=== PATIENT | female | born 2000 | race African-American/Black ===

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

== ENCOUNTER 2024-08-21 01:31 | Emergency (ER) | payer BC, SELFPAY ==
--- NOTE | ~2024-08-21 | XR_ITS ---
EXAMINATION: XR chest 1V portable DATE: 08/21/2024 03:28 INDICATION: Shortness of breath. TECHNIQUE: A single frontal view of the chest was obtained. COMPARISON: None. FINDINGS: There are mild airspace opacities in the lower lung zones. No pleural effusion or pneumotho rax. The heart size is normal. IMPRESSION: 1. Mild airspace opacities in the lower lung zones, consistent with atelectasis versus pneumonia. Reviewed, dictated and finalized at location A. ANICAL ENGINEERING MANAGER
--- NOTE | 2024-08-21 01:37 | ECG_ITS ---
Test Date: 2024-08-21 01:42:40 Measurements Intervals [place] Rate: 119 P: 47 VA: 139 QRS: 1 QRSD: 82 T: -8 QT: 331 QTc: 466 Interpretive Statements SINUS TACHYCARDIA Poor R wave progression No previous ECG available for comparison Electronically Signed On 08-21-2024 10:16:00 CONTACT CENTER ENGINEER by Andre Vaca M.D.
[2024-08-21 01:48] VITALS: BP 144/105; PULSE 113; RESP 15; TEMP 36.3; O2SAT 100
--- NOTE | 2024-08-21 02:47 | ED.GENADULT ---
HPI - General Adult General Chief complaint: Shortness of Breath/Dyspnea Stated complaint: sob Time Seen by Provider: 08/21/24 02:23 History of Present Illness HPI narrative: 24-year-old female with history of asthma presenting to the emergency department for evaluation for worsening shortness of breath. Patient reports over the course of the last few days she has had increased cough congestion body aches CT headache. Patient has been attempting to use her albuterol inhaler without significant improvement of her symptoms. Patient denies any other sick contacts. Related Data Home Medications ?Medication ?Instructions ?Recorded ?Confirmed ?Last Taken ?Type albuterol sulfate 90 mcg/actuation 1 inhalation inhalation Q4H 08/16/19 06/02/24 Unknown History aerosol inhaler (ProAir HFA) fluticasone furoate 100 inhalation 01/12/21 06/02/24 Unknown History mcg-vilanterol 25 mcg/dose inhalation powder (Breo Ellipta) sertraline 25 mg tablet 25 mg PO DAILY 06/02/24 06/02/24 Unknown History Allergies Allergy/AdvReac Type Severity Reaction Status Date / Time Penicillins AdvReac Nausea and Verified 06/02/24 11:40 Vomiting [facility] Past Medical History Medical History Acid reflux Anxiety Asthma Depression Migraine Surgical History Surgical History H/O wrist surgery S/P cholecystectomy Social History Social History Smoking status: Never smoker Alcohol intake: never Substance use: never Lack of Transportation: No Lack of Food: Never True Current Housing: I Have Housing Concerned About Future Housing: No Difficulty Paying Gas/Electric Bills: No Difficulty Paying for Meds: No Currently Unemployed: No Education: High School Diploma/GED Difficulty w/ Childcare or Family Care: No Course Vital Signs Vital signs: Vital Signs Temperature 97.3 F L 08/21/24 01:48 Pulse Rate 113 H 08/21/24 01:48 Respiratory Rate 15 08/21/24 01:48 Blood Pressure 144/105 H 08/21/24 01:48 Pulse Oximetry 100 08/21/24 01:48 Oxygen Delivery Room Air 08/21/24 01:48 Temperature 97.3 F L 08/21/24 01:48 Pulse Rate 105 H 08/21/24 02:59 Respiratory Rate 24 H 08/21/24 02:59 Blood Pressure 144/105 H 08/21/24 01:48 Pulse Oximetry 100 08/21/24 01:48 Oxygen Delivery Room Air 08/21/24 01:48 Medical Decision Making MDM Narrative Medical decision making narrative: 24-year-old female with history of asthma presenting to the emergency department for evaluation for worsening shortness of breath and wheezing over the last few days. Patient had been using her albuterol inhaler frequently without improvement. Patient did respond well to 5 mg nebulized albuterol. Chest x-ray shows no acute cardiopulmonary abnormality. Patient was negative for influenza, RSV and COVID. Differential Diagnosis Differential Diagnosis: Pneumonia, asthma, COVID, RSV, influenza Vital Signs Vital Signs: Vital Signs Temperature 97.3 F L 08/21/24 01:48 Pulse Rate 113 H 08/21/24 01:48 Respiratory Rate 15 08/21/24 01:48 Blood Pressure 144/105 H 08/21/24 01:48 Pulse Oximetry 100 08/21/24 01:48 Oxygen Delivery Room Air 08/21/24 01:48 Temperature 97.3 F L 08/21/24 01:48 Pulse Rate 105 H 08/21/24 02:59 Respiratory Rate 24 H 08/21/24 02:59 Blood Pressure 144/105 H 08/21/24 01:48 Pulse Oximetry 100 08/21/24 01:48 Oxygen Delivery Room Air 08/21/24 01:48 Lab Data Labs: Lab Results 08/21/24 Range/Units 03:01 Influenza A (RT-PCR) Negative (Negative) Influenza B (RT-PCR) Negative (Negative) RSV (RT-PCR) Negative (Negative) SARS-CoV-2 RNA (RT-PCR) Negative (Negative) Discharge Plan Discharge Clinical Impression: Asthma exacerbation Patient Disposition: Home, Self-Care Condition: Stable Instructions: Antibiotic Form, Asthma (ED) Additional Instructions: Use your home albuterol with a spacer as instructed. Prednisone as directed for the next 5 days. Have close follow-up with her primary care physician. If you have any worsening symptoms then please call or return to the emergency department. Patient Language: Azeri Prescriptions: New prednisone 50 mg tablet 50 mg PO DAILY 5 Days Qty: 5 0RF No Action Breo Ellipta 100-25 mcg/dose blister with device INHALATION albuterol sulfate [ProAir HFA] 90 mcg/actuation HFA aerosol inhaler 1 inhalation INHALATION Q4H sertraline 25 mg tablet 25 mg PO DAILY norgestimate-ethinyl estradiol [Etu-Gt-Njsvsege] 0.18/0.215/0.25 mg-25 mcg tablet 1 tablet PO DAILY Qty: 84 4RF Follow-up/Referrals: UNKNOWN,DOCTOR [Non-Staff] -
[2024-08-21 02:59] VITALS: PULSE 105; RESP 24
[2024-08-21] MEDS: ALBUTEROL SULFATE NEB 2.5 MG/3 ML INH 5 MG INHALATION (02:59)
[2024-08-21 03:42] LABS: Influenza A QL RT-PCR Negative (Negative); Influenza B QL RT-PCR Negative (Negative); RSV RNA, RT-PCR Negative (Negative); SARS-CoV-2 RNA PCR Negative (Negative)
[2024-08-21] MEDS: predniSONE 20 MG TABLET 60 MG PO (04:40)
--- NOTE | 2024-08-21 07:42 | ECG_ITS ---
Test Date: 2024-08-21 02:24:09 Measurements Intervals [place] Rate: 104 P: 62 [place]: 137 QRS: 9 QRSD: 85 T: -5 QT: 330 QTc: 435 Interpretive Statements SINUS TACHYCARDIA POSSIBLE ANTERIOR MYOCARDIAL INFARCTION , PROBABLY OLD [30 ms Q WAVE IN V3/V4, OR R < 0.2 mV IN V4] ABNORMAL RHYTHM ECG Compared to ECG 08/21/2024 01:42:40 No significant changes Electronically Signed On 08-21-2024 10:15:31 COMMUNITY COORDINATOR by Andre Vaca M.D.
--- OUTSIDE RECORDS SUMMARY | 2024-08-28 02:11 | XMS_ITS | Encounter Summary ---
Author Organization [facility] Address [address] [place] [address] Care Team Providers Care Web Development Consultant Name Role Phone Johnna Tinajero MD Primary Care Provider + Reason for Visit * Reason Onset Date Comments Follow-up 01/25/2021 LMOR to call if any questions or concerns Encounter Details Date Type Department Care Team (Late Contact Info) Description 01/25/2021 Telephone [facility] [address] [phone] Renata Hampton, HOUSEKEEPER HEAD-HIGH VALUE ASSOCIATE [address] [phone] Follow-up (LMOR to call if any questions or concerns) Social History Tobacco Use Types Packs/Day Years Used Date Smoking Tobacco: Never Smokeless Tobacco: Never PHQ-2 Answer Date Recorded PHQ2 TOTAL SCORE 0 01/23/2021 Sex and Gender Information Value Date Recorded Sex Assigned at Not on file Gender Identity Not on file Sexual Orientation Not on file COVID-19 Exposure Response Date Recorded In the last month, have you been in contact with someone who was confirmed or suspected to have Coronavirus / COVID-19? No / Unsure 01/23/2021 2:49 PM CDT documented as of this encounter Plan of Treatment Not on file documented as of this encounter Visit Diagnoses Not on filedocumented in this encounter Care Teams Web Development Consultant Relationship Specialty Start Date End Date Johnna Tinajero MD [address] [address] PCP - General Pediatrics 09/23/17 documented as of this encounter
--- OUTSIDE RECORDS SUMMARY | 2024-08-28 02:11 | XMS_ITS | Patient Health Summary ---
Author Organization [facility] Address [address] [place] [address] Care Team Providers Care Outside Operator Name Role Phone Johnna Tinajero MD Primary Care Provider + Note from [facility],non-owned Affiliates and Associated Physician Practices is amultiple site organization consisting of ambulatory clinics and hospital sitesin [place], [place], [place] and [place]. This disclosure is being madepursuant to the Care Everywhere program and may not contain all information available regarding this patient. Last updated 18.[facility] Allergies * Penicillins(Rash) -Medium Criticality Medications * Be aware that medications may not be up to date on this document. Alwaysverify current medications with the patient. * fluticasone-vilanterol (BREO ELLIPTA) 100-25 MCG/INH inhaler Inhale 1 puff by mouth once daily Administer at the same time each day. Rinse mouth after using * albuterol HFA (PROAIR HFA) 108 (90 BASE) MCG/ACT inhaler Inhale 2 puffs by mouth every 6 hours as needed * fluticasone propionate (FLONASE) 50 MCG/ACT nasal spray(Started 10/05/2017) Howard 2 sprays into each nostril once daily * azithromycin (ZITHROMAX) 250 MG tablet(Started 08/21/2021) Take 2 tabs today, then 1 tab daily for next 4 days Active Problems No known active problems Social History Tobacco Use Types Packs/Day Years Used Date Smoking Tobacco: Never Smokeless Tobacco: Never Tobacco Cessation:Counseling Given: No PHQ-2 Answer Date Recorded PHQ2 TOTAL SCORE 0 01/23/2021 Sex and Gender Information Value Date Recorded Sex Assigned at Not on file Gender Identity Not on file Sexual Orientation Not on file Last Filed Vital Signs Vital Sign Reading Time Taken Comments Blood Pressure 120/82 08/21/2021 2:11 PM STITCHING MACHINE FEEDER OR OFFBEARER Pulse 80 08/21/2021 2:11 PM STITCHING MACHINE FEEDER OR OFFBEARER Temperature 36.6 ??C (97.9 ??F) 08/21/2021 2:11 PM CS T Respiratory Rate 18 08/21/2021 2:11 PM STITCHING MACHINE FEEDER OR OFFBEARER Oxygen Saturation 99% 08/21/2021 2:11 PM STITCHING MACHINE FEEDER OR OFFBEARER Inhaled Oxygen Concentration - - Weight 90.7 kg (200 lb) 08/21/2021 2:11 PM STITCHING MACHINE FEEDER OR OFFBEARER Height 160 cm (5' 3 ) 08/21/2021 2:11 PM STITCHING MACHINE FEEDER OR OFFBEARER Body Mass Index 35.43 08/21/2021 2:11 PM STITCHING MACHINE FEEDER OR OFFBEARER Procedures * STREP A SCREEN - POINT OF CARE (AMB) STL(Performed 10/05/2017) Performed for Dysfunction of both eustachian tubes Results * STREP A SCREEN - POINT OF CARE (AMB) STL (10/05/2017) Strep A Rapid POCT Negative Negative Strep A Internal Control Present Lot # [id number] Expiration Date 05 07 2019 Throat ENTIRE THROAT (SURFACE REGION OF NECK) / Unknown 10/05/2017 Carrie Johns MONITOR TECHNICIAN-LEAD DATA ENTRY OPERATOR LAB - POINT OF CA RE ORDERABLES Care Teams Outside Operator Relationship Specialty Start Date End Date Johnna Tinajero MD [facility] [address] PCP - General Pediatrics 09/23/17
--- OUTSIDE RECORDS SUMMARY | 2024-08-28 02:11 | XMS_ITS | Encounter Summary ---
Author Organization [facility] Address [address] [place] [address] Care Team Providers Care Government Affairs Director Name Role Phone Johnna Tinajero MD Primary Care Provider + Reason for Visit * Reason Comments Ear Pain Encounter Details Date Type Department Care Team (Late st Contact Info) Description 01/23/2021 3:00 PM CDT Office Visit [facility] AT [address] [phone] Provider, [facility] Non-recurrent acute suppurative otitis media of both ears without spontaneous rupture of tympanic membranes (Primary Dx); Other infective acute otitis externa of both ears Social History Tobacco Use Types Packs/Day Years [...] PM CDT documented as of this encounter Last Filed Vital Signs Vital Sign Reading Time Taken Comments Blood Pressure 122/70 01/23/2021 3:11 PM CDT Pulse 77 01/23/2021 3:11 PM CDT Temperature 36.7 ??C (98 ??F) 01/23/2021 3:11 PM CDT Respiratory Rate 20 01/23/2021 3:11 PM CDT Oxygen Saturation - - Inhaled Oxygen Concentration - - Weight 90.7 kg (200 lb) 01/23/2021 3:11 PM CDT Height - - Body Mass Index - - documented in this encounter Patient Instructions * Patient Instructions* Jose Mckinney APRN-ANALI - 01/23/2021 3:10 PM CDT Images from the original note were not included. Otitis Externa ??? Acetaminophen (Tylenol) or Ibuprofen (Advil, Motrin) for ear pain. You may alternate acetaminophen and ibuprofen every 3-4 hours to manage ear pain. Do not exceed recommended daily maximum dose of either product. ??? Position affected ear upwards for 5 minutes after application of ear drops. ??? Apply heat to the area around the ear to relieve pain using a warm washcloth, towel from the dryer, heating pad, hot water bottle. Do not leave heating pad turned on while sleeping. ??? Keep the infected ear dry. USE ear plugs or shower cap for showering. ??? Avoid swimming until infection has resolved. ??? Do not go under water in hot tubs. ??? To prevent future episodes, use over the counter ear products containing a diluted solution of acetic acid or rubbing alcohol after swimming to keep ear canal dry. Apply as directed and gently message to allow penetration. Otitis Externa Follow Up Follow up with the clinic or your primary care provider if symptoms worsen or do not improve withinthe next 48 hours Patient Education Ear Infection in Children WHAT YOU NEED TO KNOW: What do I need to know about an ear infection? An ear infection is also called otitis media. Children are most likely to get ear infections when they are between 6 months and 3 years old. Ear infections are most common during the winter and early spring months, but can happen any time during the year. Your child may have an ear infection more than once. What causes an ear infection in children? Your child may get an ear infection when the eustachian tubes become swollen or blocked. Eustachian tubes drain fluid away from the middle ear. Your child may have a buildup of fluid and pressure in the ear when he or she has an ear infection. The ear may become infected by germs. The germs grow easily in fluid trapped behind the eardrum. What increases my child's risk for an ear infection? ?? Daycare or school ?? Being around people who smoke ?? A brother, sister, or parent with a history of ear infections ?? An ear infection before 6 months of age ?? Health conditions such as cleft palate or Down syndrome ?? Use of pacifiers after 10 months of age ?? Flat position when he or she drinks a bottle What are the signs and symptoms of an ear infection in children? ?? Fever ?? Ear pain or tugging, pulling, or rubbing of the ear ?? Decreased appetite from painful sucking, swallowing, or chewing ?? Fussiness, restlessness, or difficulty sleeping ?? Yellow fluid or pus coming from the ear ?? Difficulty hearing ?? Dizziness or loss of balance How is an ear infection in children diagnosed? Your child's healthcare provider will look inside your child's ears. He or she may blow a puff of air inside your child's ears. This may show if your child's eardrums are healthy. If your child's eardrum is infected, it will not move as it should. A tympanogram is another test that may be done. During the test, an ear plug is put into each of your child's ears. Air pressure is used to see how the eardrum moves. It can help your child's healthcare provider learn if your child has fluid in his or her middle ear. How is an ear infection in children treated? ?? Medicines may be given to decrease your child's pain or fever, or to treat an infection caused by bacteria. ?? Ear tubes are often used to keep fluid from collecting in your child's ears. Your child may needthese to help prevent frequent ear infections or hearing loss. Ask your child's healthcare providerfor more information on ear tubes. What can I do to help prevent an ear infection? ?? Wash your and your child's hands often to help prevent the spread of germs. Ask everyone in yourhouse to wash their hands with soap and water. Ask them to wash after they use the bathroom or change a diaper. Remind them to wash before they prepare or eat food. ?? Keep your child away from people who are ill, such as sick playmates. Germs spread easily and quickly in daycare centers. ?? If possible, breastfeed your baby. Your baby may be less likely to get an ear infection if he orshe is breastfed. ?? Do not give your child a bottle while he or she is lying down. This may cause liquid from the sinuses to leak into his or her eustachian tube. ?? Keep your child away from people who smoke. ?? Vaccinate your child. Ask your child's healthcare provider about the shots your child needs. Vaccines may help prevent infections that can cause an ear infection. When should I seek immediate care? ?? You see blood or pus draining from your child's ear. ?? Your child seems confused or cannot stay awake. ?? Your child has a stiff neck, headache, and a fever. When should I contact my child's healthcare provider? ?? Your child has a fever. ?? Your child is still not eating or drinking 24 hours after he or she takes medicine. ?? Your child has pain behind his or her ear or when you move the earlobe. ?? Your child's ear is sticking out from his or her head. ?? Your child still has signs and symptoms of an ear infection 48 hours after he or she takes medicine. ?? You have questions or concerns about your child's condition or care. CARE AGREEMENT: You have the right to help plan your child's care. Learn about your child's health condition and how it may be treated. Discuss treatment options with your child's healthcare providers to decide whatcare you want for your child. The above information is an paid internship only. It is not intended as medical advice for individual conditions or treatments. Talk to your doctor, nurse or pharmacist before following any medical regimen to see if it is safe and effective for you. ?? Copyright [employer] 2020 Information is for End User's use only and may not be sold, redistributed or otherwise used for commercial purposes. All illustrations and images included in CareNotes?? are the copyrighted property of [employer] or [employer] documented in this encounter Progress Notes * Jose Mckinney APRN-CNP - 01/23/2021 3:11 PM CDT Images from the original note were not included. Subjective: Nina Coyne is a 20 year old female who presents for evaluation: Chief Complaint Patient presents with ??? Ear Pain Primary Care Physician is Johnna Tinajero MD. Pt states she was seen at an ten days ago. She states she was given ear drops for an ear infection, but she can't remember much more about what they told her. She states that both of her ears still really hurt and seem to be getting worse. She states she used the Cortisporin ear drops as prescribed. Symptoms include ear pain bilateral and plugged sensation bilateral. Onset of symptoms was 10 days ago, rapidly worsening since that time. bilateral ear pressure/pain. Allergies Allergen Reactions ??? Pcn [Penicillins] Rash As a child Outpatient Medications Marked as Taking for the 01/23/21 encounter (Office Visit) with Provider, Karen Mckinney Medication Sig ??? azithromycin (ZITHROMAX) 250 MG tablet Take 2 tabs today, then 1 tab daily for next 4 days ??? ciprofloxacin-dexamethasone (CIPRODEX) 0.3-0.1 % otic suspension Instill 4 (four) drops into both ears 2 times daily for 7 days Shake well before using. Past Medical History: Diagnosis Date ??? Asthma There is no problem list on file for this patient. Past Surgical History: Procedure Laterality Date ??? HAND SURGERY Right 2016 Social History Socioeconomic History ??? Marital status: Single Spouse name: Not on file ??? Number of children: Not on file ??? Years of education: Not on file ??? Highest education level: Not on file Occupational History ??? Not on file Tobacco Use ??? Smoking status: Never Smoker ??? Smokeless tobacco: Never Used Substance and Sexual Activity ??? Alcohol use: Not on file ??? Drug use: Not on file ??? Sexual activity: Not on file Other Topics Concern ??? Not on file Social History Narrative ??? Not on file Social Determinants of Health Financial Resource Strain: ??? Difficulty of Paying Living Expenses: Food Insecurity: ??? Worried About Running Out of Food in the Last Year: ??? Ran Out of Food in the Last Year: Transportation Needs: ??? Lack of Transportation (Medical): ??? Lack of Transportation (Non-Medical): Physical Activity: ??? Days of Exercise per Week: ??? Minutes of Exercise per Session: Stress: ??? Feeling of Stress : Social Connections: ??? Frequency of Communication with Friends and Family: ??? Frequency of Social Gatherings with Friends and Family: ??? Attends [employer] Services: ??? Active Member of Clubs or Organizations: ??? Attends Club or Organization Meetings: ??? Marital Status: Intimate Partner Violence: ??? Fear of Current or Ex-Partner: ??? Emotionally Abused: ??? Physically Abused: ??? Sexually Abused: Medications reviewed. Review of Systems Constitutional: Negative Ears, nose, mouth, and throat: Positive for earaches bilaterally, Negative for vertigo, sinus trouble, persistent sore throat Respiratory: Negative Cardiovascular: Negative Neurological: Negative Objective: BP 122/70 (BP SITE: RIGHT ARM, BP POSITION: SITTING, BP CUFF SIZE: 11) Pulse 77 Temp 98 ??F (36.7 ??C) (Oral) Resp 20 Wt 90.7 kg (200 lb) Skin: Physical Exam Exam General appearance: alert, cooperative, no distress Ears: pain with motion of pinna and tragus bilaterally nor Right tympanic membrane - erythematous and bulging nor Left tympanic membrane - erythematous and bulging nor erythema and edema of ear canalbilaterally Nose: nares open; no septal deviation is noted Throat: no mucous membrane abnormalities Lungs: breath sounds normal and symmetric; no rales or wheezes Heart: regular rhythm, normal S1 and S2, without murmurs, gallops or rubs Neurologic: mental status normal; alert and oriented X 3; cranial nerves II - XII are grossly intact No results found for this or any previous visit (from the past 24 hour(s)). Assessment: . Encounter Diagnoses Name Primary? Non-recurrent acute suppurative otitis media of both ears without spontaneous rupture of tympanic membranes Yes ??? Other infective acute otitis externa of both ears Plan: Otitis Externa ??? Acetaminophen (Tylenol) or Ibuprofen (Advil, Motrin) for ear pain. You may alternate acetaminophen and ibuprofen every 3-4 hours to manage ear pain. Do not exceed recommended daily maximum dose of either product. ??? Position affected ear upwards for 5 minutes after application of ear drops. ??? Apply heat to the area around the ear to relieve pain using a warm washcloth, towel from the dryer, heating pad, hot water bottle. Do not leave heating pad turned on while sleeping. ??? Keep the infected ear dry. USE ear plugs or shower cap for showering. ??? Avoid swimming until infection has resolved. ??? Do not go under water in hot tubs. ??? To prevent future episodes, use over the counter ear products containing a diluted solution of acetic acid or rubbing alcohol after swimming to keep ear canal dry. Apply as directed and gently message to allow penetration. Otitis Externa Follow Up Follow up with the clinic or your primary care provider if symptoms worsen or do not improve withinthe next 48 hours Ear Infection in Children WHAT YOU NEED TO KNOW: What do I need to know about an ear infection? An ear infection is also called otitis media. Children are most likely to get ear infections when they are between 6 months and 3 years old. Ear infections are most common during the winter and early spring months, but can happen any time during the year. Your child may have an ear infection more than once. What causes an ear infection in children? Your child may get an ear infection when the eustachian tubes become swollen or blocked. Eustachian tubes drain fluid away from the middle ear. Your child may have a buildup of fluid and pressure in the ear when he or she has an ear infection. The ear may become infected by germs. The germs grow easily in fluid trapped behind the eardrum. What increases my child's risk for an ear infection? ?? Daycare or school ?? Being around people who smoke ?? A brother, sister, or parent with a history of ear infections ?? An ear infection before 6 months of age ?? Health conditions such as cleft palate or Down syndrome ?? Use of pacifiers after 10 months of age ?? Flat position when he or she drinks a bottle What are the signs and symptoms of an ear infection in children? ?? Fever ?? Ear pain or tugging, pulling, or rubbing of the ear ?? Decreased appetite from painful sucking, swallowing, or chewing ?? Fussiness, restlessness, or difficulty sleeping ?? Yellow fluid or pus coming from the ear ?? Difficulty hearing ?? Dizziness or loss of balance How is an ear infection in children diagnosed? Your child's healthcare provider will look inside your child's ears. He or she may blow a puff of air inside your child's ears. This may show if your child's eardrums are healthy. If your child's eardrum is infected, it will not move as it should. A tympanogram is another test that may be done. During the test, an ear plug is put into each of your child's ears. Air pressure is used to see how the eardrum moves. It can help your child's healthcare provider learn if your child has fluid in his or her middle ear. How is an ear infection in children treated? ?? Medicines may be given to decrease your child's pain or fever, or to treat an infection caused by bacteria. ?? Ear tubes are often used to keep fluid from collecting in your child's ears. Your child may needthese to help prevent frequent ear infections or hearing loss. Ask your child's healthcare providerfor more information on ear tubes. What can I do to help prevent an ear infection? ?? Wash your and your child's hands often to help prevent the spread of germs. Ask everyone in yourhouse to wash their hands with soap and water. Ask them to wash after they use the bathroom or change a diaper. Remind them to wash before they prepare or eat food. ?? Keep your child away from people who are ill, such as sick playmates. Germs spread easily and quickly in daycare centers. ?? If possible, breastfeed your baby. Your baby may be less likely to get an ear infection if he orshe is breastfed. ?? Do not give your child a bottle while he or she is lying down. This may cause liquid from the sinuses to leak into his or her eustachian tube. ?? Keep your child away from people who smoke. ?? Vaccinate your child. Ask your child's healthcare provider about the shots your child needs. Vaccines may help prevent infections that can cause an ear infection. When should I seek immediate care? ?? You see blood or pus draining from your child's ear. ?? Your child seems confused or cannot stay awake. ?? Your child has a stiff neck, headache, and a fever. When should I contact my child's healthcare provider? ?? Your child has a fever. ?? Your child is still not eating or drinking 24 hours after he or she takes medicine. ?? Your child has pain behind his or her ear or when you move the earlobe. ?? Your child's ear is sticking out from his or her head. ?? Your child still has signs and symptoms of an ear infection 48 hours after he or she takes medicine. ?? You have questions or concerns about your child's condition or care. Orders Placed This Encounter ??? ciprofloxacin-dexamethasone (CIPRODEX) 0.3-0.1 % otic suspension Sig: Instill 4 (four) drops into both ears 2 times daily for 7 days Shake well before using. Dispense: 7.5 mL Refill: 0 ??? azithromycin (ZITHROMAX) 250 MG tablet Sig: Take 2 tabs today, then 1 tab daily for next 4 days Dispense: 6 tablet Refill: 0 Continue to follow up with Johnna Tinajero MD as directed. After Visit Summary reviewed with patient. The patient indicates understanding of these issues and agrees with the plan. Patient discharged to Home .HOMER Youssef 01/23/2021 3:11 PM documented in this encounter Plan of Treatment Not on file documented as of this encounter Visit Diagnoses Diagnosis Non-recurrent acute suppurative otitis media of both ears without spontaneous rupture of tympanic membranes- Primary Other infective acute otitis externa of both ears documented in this encounter Care Teams Government Affairs Director Relationship Specialty Start Date End Date Johnna Tinajero MD [id number] [address] PCP - General Pediatrics 09/23/17 documented as of this encounter
--- OUTSIDE RECORDS SUMMARY | 2024-08-28 02:11 | XMS_ITS | Data Portability ---
Author Organization [facility], Main Office Address [address] [place] [address] Assessment No assessment recorded. Plan of Treatment Reminders Order Date Submit Date Provider Last Modified By Organization Details Last Modified Time Details Appointments None recorded. Lab insulin, serum 2022 023 [email or web address] [facility], [address] [place] [address], [address], 3 12:54:49 lipid panel, blood 2022 023 SHARRI [facility], [address] [place] [address], [address], 3 12:45:00 CMP, serum or plasma 2022 023 [email or web address] [facility], [address] [place] [address], [address], 3 12:53:18 CBC w/ auto diff 2022 023 [email or web address] [facility], [address] [place] [address], [place], [address], 3 12:53:44 TSH + free T4, serum 2022 023 [email or web address] [facility], [address] [place] [address], [place], [address], 3 12:53:56 urinalysis complete, reflex culture 2022 023 [email or web address] [facility], [address] [place] [address] 2, [place], [address], 3 12:54:09 HbA1c (hemoglobin A1c), blood 2022 023 [email or web address] [facility], [address] [facility] [address], [place], [address], 3 12:54:36 Referral None recorded. Procedures None recorded. Surgeries None recorded. Imaging None recorded. Medication Orders None recorded. Patient TargetsNo targets recorded. Patient InstructionsNo instructions recorded. Reason for Referral None Reported. Results Created Date Observation Date Name Description Value Unit Range Abnormal Flag Note LastModifiedBy Organization Detail LastModifiedTime Result Notes None recorded. Problems Name Problem SNOMED Code Status Onset Date Resolution Date Notes Provider Name and Address Organization Details Recorded Time Mixed anxiety and depressive disorder 611204271 Active 2022 Not Available [facility] 3 01:48:11 Generalized anxiety disorder 17709914 Active 2022 ANAIS Taylor [address], [place], [address] , [facility] 3 14:29:42 Asthma 452700577 Active 2022 ANAIS Taylor [address] [place] [address], [place], [address] , [facility] 3 14:29:47 Lower urinary tract symptoms 012951223 Active 2022 ANAIS Taylor [address], [place], [address] , [facility] 3 11:50:18 Upper respiratory infection 95248589 Active 2022 ANAIS Taylor [address], [place], [address] , [facility] 3 09:27:37 Problem Notes None recorded. Procedures Surgical History Date Name Laterality Status Provider Name and Address Organization Details Recorded Time Cholecystectomy completed [facility] 11/03/2022 13:59:44 [place] [facility] completed Yuliana Ashley HUSEYINVictor Manuel [facility] 11/03/2022 13:59:58 Endoscopy completed DOMINGO Argueta [facility] 11/03/2022 14:00:03 Orthopedic Surgery completed DOMINGO Ernst [facility] 11/03/2022 14:00:13 Imaging Results None recorded. Procedure Notes None recorded. Medical Equipment None Reported. Allergies Allergen ID Allergen Name Allergen Category Reaction Reaction Severity Criticality Documentation Date Start Date Code Code System Note Provider Name and Address Organization Details Recorded Time 48762 Medicinal product containin g penicilli n and acting as antibacte rial agent (product) medicatio n Not available Not available Not available 11/03/2022 16400 05 SNOMED DOMINGO Argueta [facility] 13:58:03 Medications Name Sig Start Date Stop Date Status Note LastModified by Organization Details LastModified Time prednisone 10 mg tablet TAKE 6 TABLETS BY MOUTH ONCE DAILY FOR 2 DAYS AND 4 ONCE DAILY FOR 3 DAYS 10/14 completed Not Available Not Available Not Available doxycycline hyclate 100 mg capsule TAKE 1 CAPSULE BY MOUTH IN THE MORNING AND TAKE 1 CAPSULE BY MOUTH AT BEDTIME FOR 10 DAYS. TAKE WITH A FULL GLASS OF WATER AND DO NOT LIE DOWN FOR AT LEAST 30 MINUTES AFTER 10/14 completed Not Available Not Available Not Available azithromyci n 250 mg tablet TAKE 2 TABLETS (500 MG) BY ORAL ROUTE ONCE DAILY FOR 1 DAY THEN 1 TABLET (250 MG) BY ORAL ROUTE ONCE DAILY FOR 4 DAYS active Not Available Not Available No t Available doxepin 25 mg capsule TAKE 1 TO 2 CAPSULES BY MOUTH EVERY DAY AT BEDTIME active Not Available Not Available No t Available hydrocodone 5 mg-acetamin ophen 325 mg tablet TAKE 1 TABLET BY MOUTH EVERY 6 HOURS NEEDED FOR PAIN FOR UP TO 3 DAYS active Not Available Not Available No t Available sucralfate 100 mg/mL oral suspension TAKE 10 ML BY MOUTH 4 TIMES DAILY FOR 7 DAYS 10/14 completed Not Available Not Available Not Available prochlorper azine maleate 5 mg tablet TAKE 1 TABLET BY MOUTH EVERY 6 HOURS NEEDED FOR NAUSEA FOR VOMITING active Not Available Not Available No t Available sertraline 100 mg tablet TAKE 1 TABLET BY MOUTH ONCE DAILY IN THE MORNING . APPOINTME NT REQUIRED FOR FUTURE REFILLS active Not Available Not Available No t Available ciprofloxac in 500 mg tablet TAKE 1 TABLET BY MOUTH EVERY 12 HOURS 01/06 completed Not Available Not Available Not Available metoclopram gabino 5 mg tablet TAKE 1 TABLET BY MOUTH 4 TIMES DAILY 30 MINUTES BEFORE MEALS AND AT BEDTIME active Not Available Not Available No t Available dicyclomine 20 mg tablet TAKE 1 TABLET BY MOUTH TWICE DAILY active Not Available Not Available No t Available amitriptyli ne 10 mg tablet TAKE 1 TO 2 TABLETS BY MOUTH AT BEDTIME active Not Available Not Available No t Available pantoprazol e 40 mg tablet,jocelyn yed release TAKE 1 TABLET BY MOUTH ONCE DAILY 10/14 completed Not Available Not Available Not Available omeprazole 20 mg capsule,del ayed release TAKE 1 CAPSULE BY MOUTH IN THE MORNING BEFORE BREAKFAST FOR 10 DAYS DO NOT CRUSH OR CHEW 11/03 completed Not Available Not Available Not Available albuterol sulfate HFA 90 mcg/actuati on aerosol inhaler INHALE 2 PUFFS BY MOUTH EVERY 4 TO 6 HOURS NEEDED active Not Available Not Available No t Available ondansetron 4 mg disintegrat ing tablet DISSOLVE 1 TABLET IN MOUTH 10 MINUTES PRIOR TO EACH PREP DOSE NEEDED FOR NAUSEA active Not Available Not Available No t Available sertraline 50 mg tablet TAKE 1 TABLET BY MOUTH ONCE DAILY IN THE MORNING FOR 14 DAYS active Not Available Not Available No t Available escitalopra m 20 mg tablet TAKE 1 TABLET BY MOUTH ONCE DAILY IN THE MORNING 04/03 completed Not Available Not Available Not Available Breo Ellipta 100 mcg-25 mcg/dose powder for inhalation INHALE 1 PUFF BY MOUTH EVERY 24 HOURS active Not Available Not Available No t Available Tri-Lo-Esta rylla 0.18 mg/0.215 mg/0.25 mg-25 mcg tablet TAKE 1 TABLET BY MOUTH ONCE DAILY active Not Available Not Available No t Available Plenvu 140 gram-9 gram-5.2 gram powder packs USE DIRECTED THE NIGHT BEFORE AND MORNING OF PROCEDURE active Not Available Not Available No t Available Vitals Date Recorded Body height Body temperature Respiratory rate Oxygen saturation Oxygen saturation in Arterial blood by Pulse oximetry Heart rate Systolic blood pressure Diastolic blood pressure Provider Name and Address Organization Details Last Updated DateTime 3 160.02 cm 97.8 [degF] 16 /min 98 % 98 % 101 /min 122 mm[Hg] 80 mm[Hg] DOMINGO Argueta [facility] [employer] [facility] 14:04:38 Social History Question Answer Notes LastModified by Organizat ion Details LastModified Time Tobacco Smoking Status Never Smoker DOMINGO Argueta null, NEVAEH Fernández Tracey [employer] [facility] 11/03/2022 13:59:13 Do You Have An Advance Directive? No [email or web address] Information n ot available 11/03/2022 What Is Your Level Of Alcohol Consumption? None [email or web address] Information not available 11/03/2022 What Is Your Level Of Caffeine Consumption? Moderate [email or web address] Information not available 11/03/2022 In The 14 Days Before Symptom Onset, Have You Had Close Contact With A Laboratory-confirm ed COVID-19 While That Case Was Ill? No [id number] Information not available 10/30/2022 In The 14 Days Before Symptom Onset, Have You Had Close Contact With A Person Who Is Under Investigation For COVID-19 While That Person Was Ill? No [id number] Information not available 10/30/2022 Are You Currently Employed? Yes [email or web address] Information not available 11/03/2022 What Type Of Diet Are You Following? 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 No [email or web address] Information no t available 11/03/2022 Are There Any Guns Present In Your Home? No [email or web address] Information not available 11/03/2022 Do You Use Insect Repellent Routinely? No [email or web address] Information not available 11/03/2022 Do You Have A Medical Power Of Certified Surgical Technician? No [email or web address] Information not available 11/03/2022 What Is Your Relationship Status? Single [email or web address] Information not available 11/03/2022 Do You Use Your Seat Belt Or Car Seat Routinely? Yes [email or web address] Information not available 11/03/2022 Do You Have Smoke And Carbon Monoxide Detectors In Your Home? Yes Information not available 11/03/2022 Do You Use Any Illicit Or Recreational Drugs? No [email or web address] Information not available 11/03/2022 Do You Use Sunscreen Routinely? Yes [email or web address] Information not available 11/03/2022 Have You Recently Traveled Abroad? No [id number] Information not available 10/30/2022 Do You Have Any Dietary Restrictions? No [email or web address] Information not available 11/03/2022 Do You Or Have You Ever Used Any Other Forms Of Tobacco Or Nicotine? No [email or web address] Information not available 11/03/2022 Sex: Unknown Functional Status Question Answer Note LastModified by Organization D etails LastModified Time What is your exercise level? Heavy [email or web address] Information not available 11/03/2022 Mental Status None recorded. Family History Nothing Reported Notes:pt adopted Medical History Condition Response ANXIETY DISORDER Y DEPRESSION (INCLUDING POST ) Y DIZZINESS Y ASTHMA Y Gynecological HistoryNo gynecological history recorded. Obstetrics History GPAL:G 0 P 0 0 0 0 Past Encounters Encounter ID Performer Location Encounter Start Date Encounter Closed Date Diagnosis/Indication Diagnosis SNOMED-CT Code Diagnosis ICD10 Code [id number] ANAIS Taylor [facility] [place] [address] [place] [address] 11/03/2022 13:57:21 11/03/2022 14:46:56 Adult health examination 590451742 Z00.00 Generalize d anxiety disorder 29550908 F41.1 Asthma 672505345 J45.90 9 Long-term drug therapy 277805761 Z79.899 Diabetes m ellitus screening 732688775 Z13.1 Cholesterol screening 27 7643131 Z13.220 Endocrine/ metabolic screening 563067638 Z13.228 Health Concerns Section Related Observation LastModified by Organization Detai ls LastModified Time None Recorded Concern Status LastModified by Organization Details LastModified Time None Recorded Advance Directives Directive N: Payers Encounter Date Sequence Insurance Name Policy Number Policy Allen Covered Member ID Allen Member ID Guarantor Name 11/03/2022 1 [employer] - OPEN ACCESS PLUS [id number] Franklin Coyne [id number] Nina Coyne Notes Date Note Type Note Provider Name and Address Organization Details Recorded Time 11/03/2022 text/html Anxiety/Depressi o nReported bypatient.Quality :doesnt matter time of day. Severity:denies suicidal ideations; able to maintain relationships; does not interfere with activities of daily living Duration:symptoms lasting over 2 weeks Onset/Timing:stil l present Context:no major life stressors Modifying Factors:rx ANAIS Taylor [address] [facility] [facility] [address], [place], [address], [place] [facility] 11/22/2022 00:13:13 OBGyn Episode No OBEpisode recorded.
--- OUTSIDE RECORDS SUMMARY | 2024-08-28 02:11 | XMS_ITS | Referral Summary ---
Author Organization [facility] Address [address] [address] Care Team Providers Care Research Administrator Name Role Phone Johnna Tinajero MD Primary Care Provider + Source Comments [facility],non-owned Affiliates and Associated Physician Practices is amultiple site organization consisting of ambulatory clinics and hospital sitesin [place], [place], [place]. This disclosure is being madepursuant to the Care Everywhere program and may not contain all information available regarding this patient. Last updated 18.[facility] Allergies Active Allergy Reactions Criticality Noted Date Comments Penicillins Rash Medium 09/23/2017 As a child Medications * Be aware that medications may not be up to date on this document. Alwaysverify current medications with the patient. Medication Sig Dispensed Refills Start Date End Date Status fluticasone-vilanter ol (BREO ELLIPTA) 100-25 MCG/INH inhaler Inhale 1 puff by mouth once daily Administer at the same time each day. Rinse mouth after using Active albuterol HFA (PROAIR HFA) 108 (90 BASE) MCG/ACT inhaler Inhale 2 puffs by mouth every 6 hours as needed Active fluticasone propionate (FLONASE) 50 MCG/ACT nasal spray [place] 2 sprays into each nostril once daily 1 bottles 10/05/2017 Active azithromycin (ZITHROMAX) 250 MG tabletIndications:Ac apurva sinusitis, recurrence not specified, unspecified location Take 2 tabs today, then 1 tab daily for next 4 days 6 tablet 08/21/2021 Active Active Problems No known active problems Social [...] Comments Blood Pressure 120/82 08/21/2021 2:11 PM [employer] Pulse 80 08/21/2021 2:11 PM [employer] Temperature 36.6 ??C (97.9 ??F) 08/21/2021 2:11 PM CS T Respiratory Rate 18 08/21/2021 2:11 PM [employer] Oxygen Saturation 99% 08/21/2021 2:11 PM [employer] Inhaled Oxygen Concentration - - Weight 90.7 kg (200 lb) 08/21/2021 2:11 PM [employer] Height 160 cm (5' 3 ) 08/21/2021 2:11 PM [employer] Body Mass Index 35.43 08/21/2021 2:11 PM [employer] Plan of Treatment Not on file Care Teams Research Administrator Relationship Specialty Start Date End Date Johnna Tinajero MD [address] [address] PCP - General Pediatrics 09/23/17
--- OUTSIDE RECORDS SUMMARY | 2024-08-28 02:11 | XMS_ITS | Encounter Summary ---
Author Organization [facility] Address [address] [place] [address] Care Team Providers Care Fisher Terrapin Name Role Phone Johnna Tinajero MD Primary Care Provider + Reason for Visit * Reason Comments Ear Pain Encounter Details Date Type Department Care Team (Late st Contact Info) Description 10/05/2017 5:20 PM PACKAGE HANDLER Office Visit [facility] [address] [phone] Provider, [facility] [place] Dysfunction of both eustachian tubes (Primary Dx) Social History Tobacco Use Types Packs/Day Years Used Date Smoking Tobacco: Never Smokeless Tobacco: Never Sex and Gender Information Value Date Recorded Sex Assigned at Not on file Gender Identity Not on file Sexual Orientation Not on file documented as of this encounter Last Filed Vital Signs Vital Sign Reading Time Taken Comments Blood Pressure 122/84 10/05/2017 5:39 PM PACKAGE HANDLER Pulse 109 10/05/2017 5:25 PM PACKAGE HANDLER Temperature 37.3 ??C (99.1 ??F) 10/05/2017 5:25 PM CS T Respiratory Rate 16 10/05/2017 5:25 PM PACKAGE HANDLER Oxygen Saturation 99% 10/05/2017 5:25 PM PACKAGE HANDLER Inhaled Oxygen Concentration - - Weight 107 kg (236 lb) 10/05/2017 5:25 PM PACKAGE HANDLER Height 160 cm (5' 3 ) 10/05/2017 5:25 PM PACKAGE HANDLER Body Mass Index 41.81 10/05/2017 5:25 PM PACKAGE HANDLER Body Mass Index Percentile 99.81% 10/05/2017 5:2 5 PM PACKAGE HANDLER Growth Chart: CDC (Girls, 2- 20 Years) documented in this encounter Patient Instructions * Patient Instructions* JohnsCarrie teran MATERIAL HANDLING CREW SUPERVISOR-BLOCK SPLITTER OPERATOR - 10/05/2017 5:46 PM PACKAGE HANDLER Eustachian Tube Dysfunction WHAT YOU NEED TO KNOW: What is eustachian tube dysfunction? Eustachian tube dysfunction (ETD) is a condition that preventsyour eustachian tubes from opening properly. It can also cause them to become blocked. Eustachian tubes connect your middle ear to the back of your nose and throat. These tubes open and allow air to flow in and out when you sneeze, swallow, or yawn. What causes or increases my risk of ETD? ETD may be caused by swelling or buildup of mucus in your eustachian tubes. Allergies, a cold, or sinus infection can increase your risk for ETD. Smoking alsoincreases your risk for ETD. What are the signs and symptoms of ETD? ?? Fullness or pressure in your ears ?? Muffled hearing ?? Pain in one or both ears ?? Ringing in your ears ?? Popping or clicking feeling in your ears ?? Trouble keeping your balance How is ETD diagnosed? Your healthcare provider will ask about your symptoms. He will examine your ears, your nose, and the back of your throat. He may also do a hearing test. How is ETD treated? Your ETD may get better on its own without any treatment. You may need any of the following: ?? Exercises such as swallowing, yawning, or chewing gum may help to open your eustachian tubes. Your healthcare provider may also recommend that you take a deep breath and then blow with your mouth shut and your nostrils pinched closed. ?? Air pressure devices push air into your nose and eustachian tubes to help relieve air pressure in your ear. ?? Treatment for allergies such as decongestants, antihistamines, and nasal steroids may improve ETD. They may help decrease swelling of the eustachian tubes. ?? Ear tubes may help to keep your middle ear open. During this procedure, your healthcare providerwill cut a small hole in your eardrum. ?? A myringotomy is procedure to make a small cut in your eardrum and suction out fluid from your middle ear. ?? Tuboplasty is a procedure to widen your eustachian tubes. When should I contact my healthcare provider? ?? Your symptoms do not improve or get worse. ?? You have a fever. ?? You have any hearing loss. ?? You have questions or concerns about your condition or care. CARE AGREEMENT: You have the right to help plan your care. Learn about your health condition and how it may be treated. Discuss treatment options with your caregivers to decide what care you want to receive. You always have the right to refuse treatment. The above information is an educational audiologist only. It is not intended as medical advice for individual conditions or treatments. Talk to your doctor, nurse or pharmacist before following any medical regimen to see if it is safe and effective for you. ?? 2017 [employer] Information is for End User's use only and may not be sold, redistributed or otherwise used for commercial purposes. All illustrations and images included in CareNotes?? are the copyrighted property of [employer] or [employer]. Tinnitus WHAT YOU NEED TO KNOW: What is tinnitus? Tinnitus is when you hear ringing, clicking, buzzing, or hissing in one or both ears. You may also hear whistling, chirping, or pulsing. It may be soft or loud, and at a low or highpitch. Tinnitus that lasts longer than 6 months is considered chronic. What causes or increases my risk for tinnitus? Tinnitus may be caused by problems with your hearingsystem, including the parts of your brain that sort out sounds. Tinnitus may also be caused by a health condition, such as M??ni??re disease. The following may increase your risk: ?? Age older than 60 years ?? Exposure to loud noise ?? Hearing loss or abnormal bone structure in the ear ?? Ear and sinus infections, or wax buildup ?? Hormone changes in women ?? Diseases of the heart and blood vessels, or brain tumors ?? Certain medicines, such as aspirin, NSAIDs, methotrexate, and erythromycin ?? Anxiety, sleep problems, or depression How is tinnitus diagnosed? Your healthcare provider will ask about your symptoms and examine your ears, jaw, and neck. Tell him if you have tinnitus all the time or if it comes and goes. He may ask if anything makes it worse, such as stress or anxiety. You may need any of the following tests: ?? A hearing test may show problems with your ear. Your eardrum and middle ear may also be examinedand tested. ?? An ultrasound, CT, MRI, or MRA may show the cause of your tinnitus. You may be given contrast liquid to help the parts of your ear show up better in the pictures. Tell the healthcare provider if you have ever had an allergic reaction to contrast liquid. Do not enter the MRI room with anything metal. Metal can cause serious injury. Tell the healthcare provider if you have any metal in or on your body. How is tinnitus treated? You may not need treatment. Your symptoms may only appear when you are anxious or stressed. Your healthcare provider may stop certain medicines that may be causing your tinnitus. You may also need medicines to help decrease your symptoms. The following can help treat or manage tinnitus: ?? Counseling can help you learn ways to relax, decrease stress, and make your tinnitus less noticeable. ?? Cognitive behavioral therapy helps you understand your condition. Your therapist will help you learn to cope with tinnitus. You may also learn new ways to relax and retrain your behavior to decrease your symptoms. ?? Sound therapy, such as white noise machines, may help cover your tinnitus with a pleasant sound.Sound therapy devices can help you fall asleep or help you relax. These devices can be worn in yourear or placed next to your bed at night. ?? Hearing aids or cochlear implants may help if you have hearing loss. ?? Surgery may be needed if your tinnitus is caused by abnormal blood vessels or a mass. ?? Do not smoke. Nicotine decreases blood flow to your ear and can make your tinnitus worse. Do notuse e-cigarettes or smokeless tobacco in place of cigarettes or to help you quit. They still contain nicotine. Ask your healthcare provider for information if you currently smoke and need help quitting. ?? Decrease how much alcohol and caffeine you drink. Alcohol and caffeine can make your tinnitus worse. How can I help prevent tinnitus? ?? Avoid exposure to loud noise, such as loud music or power tools. Occasional exposure can still cause tinnitus. Move away from the noise or turn down the volume. ?? Wear ear protection when you are exposed to loud noises. Good ear protection includes ear plugs or headphones that reduce noise. Call 911 if: ?? You feel like hurting yourself or others because of the constant noise. When should I contact my healthcare provider? ?? You have headaches. ?? You are tired and have trouble concentrating or remembering things. ?? You have more anxiety or stress than usual. ?? You have deep sadness or depression. ?? You have trouble falling asleep or staying asleep. ?? Your symptoms do not go away or they get worse. ?? You have questions or concerns about your condition or care. CARE AGREEMENT: You have the right to help plan your care. Learn about your health condition and how it may be treated. Discuss treatment options with your caregivers to decide what care you want to receive. You always have the right to refuse treatment. The above information is an educational audiologist only. It is not intended as medical advice for individual conditions or treatments. Talk to your doctor, nurse or pharmacist before following any medical regimen to see if it is safe and effective for you. ?? 2017 [employer] Information is for End User's use only and may not be sold, redistributed or otherwise used for commercial purposes. All illustrations and images included in CareNotes?? are the copyrighted property of [employer] or [employer]. AGE HANDLER documented in this encounter Progress Notes * Carrie Johns APRN-CNP - 10/05/2017 5:35 PM CST Subjective: History was provided by patient and father Nina Coyne is a 17 y.o. female who presents for evaluation: Chief Complaint Patient presents with ??? Ear Pain Primary Care Physician is Johnna Tinajero MD. Symptoms include On 09/23/17 pt was tx for double ear infection with Zpak. Pt reports bilateral ear pain came back around 10/01/17. Pt reports occasional ringing in ears with muffled hearing at times. Denies any fever, dizziness, post nasal drainage, sinus drainage, cough, or sore throat. She is drinking plenty of fluids. Evaluation to date: none. Treatment to date: Ibuprofen Allergies Allergen Reactions ??? Pcn [Penicillins] Rash As a child Outpatient Prescriptions Marked as Taking for the 10/05/17 encounter (Office Visit) with Provider, Karen [place] Medication Sig ??? fluticasone propionate (FLONASE) 50 MCG/ACT nasal spray [place] 2 sprays into each nostril once daily Past Medical History: Diagnosis Date ??? Asthma Medications reviewed. Review of Systems Pertinent items are noted in HPI Constitutional: Negative Eyes: Negative Ears, nose, mouth, and throat: Positive for earaches bilaterally, occasional ringing and muffled hearing at times bilaterally Respiratory: Negative Cardiovascular: Negative Gastrointestinal: Negative Genitourinary:Negative Skin: Negative Musculoskeletal:Negative Neurological: Negative Objective: BP 122/84 (BP SITE: RIGHT ARM) Pulse 109 Temp 99.1 ??F (Oral) Resp 16 Ht 1.6 m (5' 3 ) Wt 107 kg (236 lb) SpO2 99% BMI 41.81 kg/m2 Skin: Physical Exam Exam General appearance: alert, cooperative, no distress, oriented to person, place, and time, wellappearing Head: normocephalic, without trauma Eyes: sclera and conjunctiva clear, EOMI and PERRLA, lids normal Ears: canals clear, bilateral tympanic membranes with fluid, no erythema, bulging, or retraction, hearing intact to voice Nose: nares open; no septal deviation is noted, nasal mucosa not inflamed, no maxillary tenderness Throat: lips, mucosa, and tongue normal; teeth and gums normal, tonsillar hypertrophy 1+, no exudates or erythema present Neck: range of motion is intact, no masses, no adenopathy Nodes: no cervical adenopathy Lungs: breath sounds normal and symmetric; no rales or wheezes Heart: regular rhythm, normal S1 and S2, without murmurs, gallops or rubs Neurologic: mental status normal; alert and oriented X 3 Assessment: . Encounter Diagnoses Name Primary? Dysfunction of both eustachian tubes Yes Plan: Discussed the importance of avoiding unnecessary abx therapy. Suggested symptomatic OTC remedies. Nasal steroids per orders. RTC prn. In most cases, serous otitis resolves spontaneously without treatment. In a small percentage of cases, the effusion persists and requires additional intervention, such as pressure equalization tubes. In children, seasonal allergies and/or an upper respiratory tract infection can induce eustachian tube dysfunction. As a result, some times decongestants, antihistamines, and/or nasal steroids may bebeneficial. Your symptoms should resolve within approximately 12 weeks. However, if your symptoms persist greater than 12 weeks, or you begin to have additional symptoms such as: ear pain, fever, decreased hearing, and/or fluid draining from your ear seek medical attention as soon as possible. If ear pain persists or worsen at anytime please f/u with [employer] Continue to follow up with Johnna Tinajero MD as directed. After Visit Summary reviewed with patient. The caregiver today indicates understanding of these issues and agrees with the plan. Patient discharged to Home .HOMER Lee 10/05/2017 5:51 PM Orders Placed This Encounter ??? STREP A SCREEN - POINT OF CARE (AMB) STL ??? fluticasone propionate (FLONASE) 50 MCG/ACT nasal spray Sig: [place] 2 sprays into each nostril once daily Dispense: 1 bottles Refill: 0 Recent Results (from the past 24 hour(s)) STREP A SCREEN - POINT OF CARE (AMB) STL Collection Time: 10/05/17 12:00 AM Result Value Ref Range Strep A Rapid Negative Negative Strep A INTERNAL CONTROL Present Lot Number [id number] Expiration Date 05 07 2019 AGE HANDLER documented in this encounter Plan of Treatment Not on file documented as of this encounter Procedures Procedure Name Priority Date/Time Associated Diagnosis Comments STREP A SCREEN - POINT OF CARE (AMB) STL Routine 10/05/2017 Dysfunction of both eustachian tubes documented in this encounter Results * STREP A SCREEN - POINT OF CARE (AMB) STL (10/05/2017) Strep A Rapid POCT Negative Negative Strep A Internal Control Present Lot # [id number] Expiration Date 05 07 2019 Throat ENTIRE THROAT (SURFACE REGION OF NECK) / Unknown 10/05/2017 [facility] - POINT OF CA RE ORDERABLES documented in this encounter Visit Diagnoses Diagnosis Dysfunction of both eustachian tubes- Primary Dysfunction of Eustachian tube documented in this encounter Care Teams Fisher Terrapin Relationship Specialty Start Date End Date Johnna Tinajero MD [id number] [id number] PCP - General Pediatrics 09/23/17 documented as of this encounter
--- OUTSIDE RECORDS SUMMARY | 2024-08-28 02:11 | XMS_ITS | Clinical Summary ---
Author Organization [facility] Address [address] [place] [address] Care Team Providers [employer] Leader Name Role Phone Johnna Tinajero MD Unavailable [phone] Luciano Edwards MD Unavailable Arian Adam MD Unavailable Lanny Johnson Primary Care Pr ovider Allergies Active Allergy Reactions Criticality Noted Date Comments Dog Dander Hives Medium Reaction: HIVES, Penicillins Other (See comments),Rash Medium 03/19/2015 As a child Reaction: NAUSEA;, ?? As a child Medications albuterol HFA (PROVENTIL HFA,VENTOLIN HFA,PROAIR HFA) 90 mcg/actuation inhaler Inhale 2 puffs every 6 (six) hours as needed for wheezing or shortness of breath Active norgestimate-ethin yl estradiol (ORTHO TRI-CYCLEN LO) 0.18/0.215/0.25 mg-25 mcg per tablet Take 1 tablet by mouth daily 0 201 9 Active cetirizine (ZyrTEC) 10 mg tablet Take 10 mg by mouth daily Active fluticasone furoate-vilanteroL (BREO ELLIPTA) 100-25 mcg/dose diskus inhaler Inhale 1 puff once daily Rinse mouth with water after use. Do not swallow. Active sertraline (ZOLOFT) 100 mg tablet Take 1 tablet (100 mg total) by mouth daily Active ondansetron ODT (ZOFRAN-ODT) 4 mg disintegrating tablet Take 1 tablet (4 mg total) by mouth every 6 (six) hours as needed for nausea or vomiting Active doxepin (SINEquan) 25 mg capsule Take 2 capsules (50 mg total) by mouth nightly Active prochlorperazine (COMPAZINE) 5 mg tablet Take 1 tablet (5 mg total) by mouth every 6 (six) hours as needed for nausea or vomiting 30 tablet 1 3 Active Active Problems Problem Noted Date Diagnosed Date RLQ abdominal pain 01/13/2023 Mixed obsessional thoughts and acts 01/13/2023 History of mononucleosis 04/28/2022 Dyskinesia of gallbladder 01/16/2021 Overview (01/16/2021): Added automatically from request for surgery [id number] Vomiting without nausea 08/22/2020 Overview (08/22/2020): Added automatically from request for surgery [id number] Vasovagal syncope 10/25/2019 Assessment & Plan (11/06/2019 10:30 AM CDT): Nina presented following several syncopal episodes lasting seconds to minutes. Preceded by prodrome of dizziness, feeling off, headaches, sometimes nausea. No seizure-like activity, apnea, chest pain during episodes. Workup largely reassuring, including normal Brain MRI from previous admission. EMS glucose 68. Positive orthostatic changes in ED. ECG on 10/24 with prolonged QTc. Exam unremarkable, no focal neurologic deficits. Given rapid onset with prodrome and rapid recovery to baseline, presentation seems consistent with vasovagal syncope. Cardiology has also seen and agree that this is the most likely cause, but would like to have her wear a 30day monitor and follow up as an outpatient. Neurology has also been consulted due to concern for IIH and an LP was done in IR today. Opening pressure was 27, which Neurology felt was attributable to obesity. Given that her headaches are better lying down and she has no papilledema on exam, they do not think this is IIH. Plan: - MIVF - Morning cortisol, urine HVA, VMA - Follow up Neurology, Cardiology, and GI recommendations - PT consult Assessment & Plan (11/05/2019 2:21 PM SCUBA INSTRUCTOR): Nina presented following several syncopal episodes lasting seconds to minutes. Preceded by prodrome of dizziness, feeling off, headaches, sometimes nausea. No seizure-like activity, apnea, chest pain during episodes. Workup largely reassuring, including normal Brain MRI from previous admission. EMS glucose 68. Positive orthostatic changes in ED. ECG on 10/24 with prolonged QTc. Exam unremarkable, no focal neurologic deficits. Given rapid onset with prodrome and rapid recovery to baseline, presentation seems consistent with vasovagal syncope. Cardiology has also seen and agree that this is the most likely cause, but would like to have her wear a 30day monitor and follow up as an outpatient. Neurology has also been consulted due to concern for IIH and an LP was done in IR today. Opening pressure was 27, which Neurology felt was attributable to obesity. Given that her headaches are better lying down and she has no papilledema on exam, they do not think this is IIH. Plan: - MIVF - Morning cortisol, urine HVA, VMA - Follow up Neurology, Cardiology, and GI recommendations - PT consult for isometric exercise teaching Assessment & Plan (11/04/2019 5:26 PM SCUBA INSTRUCTOR): Nina presented following several syncopal episodes lasting seconds to minutes. Preceded by prodrome of dizziness, feeling off, headaches, sometimes nausea. No seizure-like activity, apnea, chest pain during episodes. Workup largely reassuring, including normal Brain MRI from previous admission. EMS glucose 68. Positive orthostatic changes in ED. ECG on 10/24 with prolonged QTc. Exam unremarkable, no focal neurologic deficits. Given rapid onset with prodrome and rapid recovery to baseline, presentation seems consistent with vasovagal syncope. Cardiology has also seen and agree that this is the most likely cause, but would like to have her wear a 30day monitor and follow up as an outpatient. Neurology has also been consulted due to concern for IIH and an LP was done in IR today. Opening pressure was 27, which Neurology felt was attributable to obesity. Given that her headaches are better lying down and she has no papilledema on exam, they do not think this is IIH. Plan: - MIVF - F/u LP results - Morning cortisol, urine HVA, VMA - Follow up Neurology, Cardiology, and GI recommendations Assessment & Plan (11/03/2019 5:10 AM SCUBA INSTRUCTOR): Several syncopal episodes lasting seconds to minutes. Preceded by prodrome of dizziness, feeling off, headaches, sometimes nausea. No seizure-like activity, apnea, chest pain during episodes. Workup largely reassuring, including normal Brain MRI from previous admission. EMS glucose 68. Positive orthostatic changes in ED. ECG on 10/24 with prolonged QTc. Exam unremarkable, no focal neurologic deficits. Given rapid onset with prodrome and rapid recovery to baseline, presentation seems consistent with vasovagal syncope. Low concern for seizures, cardiac etiologies. Differential includes IIH, migraines, orthostatic hypotension, hypoglycemia, dehydration, medication induced, functional. - Review ECG - Orthostatic vitals in morning - MIVF - Headache/nausea control - Continue home nortriptyline 10 mg morning, 20 mg night - Continue home lexapro 20 mg - Consider neurology consult vs. outpatient appointment Chronic nausea 08/15/2019 Assessment & Plan (11/06/2019 10:30 AM CDT): GI was consulted as she was scheduled to have a GES today and there was some onset around the same time her nortriptyline was increased. They feel her vomiting is likely functional in nature and feel she would benefit from following with the [facility]. If we do think these current symptoms are related to her nortriptyline, they recommended decreasing to 20mg. Psychology has seen her and recommend continued follow up. Gastric emptying study was normal. Plan: - decrease home nortriptyline to 10 mg morning, 10 mg night per GI recommendations. - Continue home lexapro 20 mg - Referral to [facility] Assessment & Plan (11/05/2019 2:18 PM SCUBA INSTRUCTOR): GI was consulted as she was scheduled to have a GES today and there was some onset around the same time her nortriptyline was increased. They feel her vomiting is likely functional in nature and feel she would benefit from following with the [facility] clinic. If we do think these current symptoms are related to her nortriptyline, they recommended decreasing to 20mg. Psychology has seen her and recommend continued follow up. Gastric emptying study was normal. Plan: - decrease home nortriptyline to 10 mg morning, 10 mg night per GI recommendations. - Continue home lexapro 20 mg - Referral to [facility] Assessment & Plan (11/04/2019 5:27 PM SCUBA INSTRUCTOR): GI was consulted as she was scheduled to have a GES today and there was some onset around the same time her nortriptyline was increased. They feel her vomiting is likely functional in nature and feel she would benefit from following with the [facility] clinic. If we do think these current symptoms are related to her nortriptyline, they recommended decreasing to 20mg. Psychology has seen her and recommend continued follow up. Plan: - Continue home nortriptyline 10 mg morning, 20 mg night - Continue home lexapro 20 mg - F/u GES - Referral to [facility] Assessment & Plan (09/19/2019 11:51 AM SCUBA INSTRUCTOR): 2 month history of worsening nausea with numerous episodes of NB/NB emesis in the past day. Has had significant workup including labs, CT, and US which were largely unremarkable for causes of persistent nausea/emesis. GI had planned to perform EGD for further investigation. Differential for abdominal pain with chronic nausea is broad with no specific symptoms but includes ovarian torsion, gastritis, cyclic vomiting, functional abdominal pain/functional nausea, , cannaboid hyperemesis syndrome. Functional etiologies are of high suspicion given her largely negative workup thus far and history of anxiety. Gastritis is also a concern and warrants endoscopic evaluation. She had a negative UPT on admission. She denies marijuana use. EGD visually normal, biopsies pending. Upper GI normal, no delayed gastric emptying. UDS negative. ECG within normal limits. MRI negative. Was able to tolerate one meal yesterday without vomiting. - MIVF. Encouraged small sips throughout the day (2 oz every hour) - discontinue lexapro 10mg 09/19 - Hold zofran - continue nortiptyline 10 mg nightly for headache, nausea. Consider up titrating - Continue lansoprazole - KUB to evaluate passage of contrast Assessment & Plan (09/18/2019 12:24 PM SCUBA INSTRUCTOR): 2 month history of worsening nausea with numerous episodes of NB/NB emesis in the past day. Has had significant workup including labs, CT, and US which were largely unremarkable for causes of persistent nausea/emesis. GI had planned to perform EGD for further investigation. Differential for abdominal pain with chronic nausea is broad with no specific symptoms but includes ovarian torsion, gastritis, cyclic vomiting, functional abdominal pain/functional nausea, , cannaboid hyperemesis syndrome. Functional etiologies are of high suspicion given her largely negative workup thus far and history of anxiety. Gastritis is also a concern and warrants endoscopic evaluation. She had a negative UPT on admission. She denies marijuana use. EGD visually normal, biopsies pending. Upper GI normal, no delayed gastric emptying. UDS negative. ECG within normal limits. MRI negative. Was able to tolerate one meal yesterday without vomiting. - MIVF. Encouraged small sips throughout the day (2 oz every hour) - discontinue lexapro 10mg 09/19 - Hold zofran - continue nortiptyline 10 mg nightly for headache, nausea - xray tomorrow to see if contrast cleared, gastric emptying if clear. Assessment & Plan (09/17/2019 3:13 PM SCUBA INSTRUCTOR): 2 month history of worsening nausea with numerous episodes of NB/NB emesis in the past day. Has had significant workup including labs, CT, and US which were largely unremarkable for causes of persistent nausea/emesis. GI had planned to perform EGD for further investigation. Differential for abdominal pain with chronic nausea is broad with no specific symptoms but includes ovarian torsion, gastritis, cyclic vomiting, functional abdominal pain/functional nausea, , cannaboid hyperemesis syndrome. Functional etiologies are of high suspicion given her largely negative workup thus far and history of anxiety. Gastritis is also a concern and warrants endoscopic evaluation. She had a negative UPT on admission. She denies marijuana use. EGD visually normal, biopsies pending. Upper GI normal, no delayed gastric emptying. UDS negative. ECG within normal limits. MRI negative. - MIVF - Reduced lexapro from 20mg every day to 10mg every day 09/15 - Hold zofran - Start nortiptyline 10 mg nightly for headache, nausea - Gastric emptying study next week Assessment & Plan (09/16/2019 11:48 AM SCUBA INSTRUCTOR): 2 month history of worsening nausea with numerous episodes of NB/NB emesis in the past day. Has had significant workup including labs, CT, and US which were largely unremarkable for causes of persistent nausea/emesis. GI had planned to perform EGD for further investigation. Differential for abdominal pain with chronic nausea is broad with no specific symptoms but includes ovarian torsion, gastritis, cyclic vomiting, functional abdominal pain/functional nausea, , cannaboid hyperemesis syndrome. Functional etiologies are of high suspicion given her largely negative workup thus far and history of anxiety. Gastritis is also a concern and warrants endoscopic evaluation. She had a negative UPT on admission. She denies marijuana use. EGD visually normal, biopsies pending. Upper GI normal, no delayed gastric emptying. UDS negative. ECG within normal limits. MRI negative. - MIVF - Reduced lexapro from 20mg every day to 10mg every day 09/15 - Hold zofran - Start nortiptyline 10 mg nightly for headache, nausea - Gastric emptying study next week Assessment & Plan (09/15/2019 3:01 PM SCUBA INSTRUCTOR): 2 month history of worsening nausea with numerous episodes of NB/NB emesis in the past day. Has had significant workup including labs, CT, and US which were largely unremarkable for causes of persistent nausea/emesis. GI had planned to perform EGD for further investigation. Differential for abdominal pain with chronic nausea is broad with no specific symptoms but includes ovarian torsion, gastritis, cyclic vomiting, functional abdominal pain/functional nausea, , cannaboid hyperemesis syndrome. Functional etiologies are of high suspicion given her largely negative workup thus far and history of anxiety. Gastritis is also a concern and warrants endoscopic evaluation. She had a negative UPT on admission. She denies marijuana use. EGD visually normal, biopsies pending. Upper GI normal, no delayed gastric emptying. UDS negative. ECG within normal limits. - MIVF - MRI - Wean lexapro vs start cyproheptadine - Zofran prn Assessment & Plan (09/14/2019 1:01 PM SCUBA INSTRUCTOR): 2 month history of worsening nausea with numerous episodes of NB/NB emesis in the past day. Has had significant workup including labs, CT, and US which were largely unremarkable for causes of persistent nausea/emesis. GI had planned to perform EGD for further investigation. Differential for abdominal pain with chronic nausea is broad with no specific symptoms but includes ovarian torsion, gastritis, cyclic vomiting, functional abdominal pain/functional nausea, , cannaboid hyperemesis syndrome. Functional etiologies are of high suspicion given her largely negative workup thus far and history of anxiety. Gastritis is also a concern and warrants endoscopic evaluation. She had a negative UPT on admission. She denies marijuana use. EGD visually normal, biopsies pending. - MIVF - NPO at midnight for upper GI study 09/15 - Zofran prn - ECG for prolonged zofran use - UDS Assessment & Plan (09/13/2019 7:51 PM SCUBA INSTRUCTOR): 2 month history of worsening nausea with numerous episodes of NB/NB emesis in the past day. Has had significant workup including labs, CT, and US which were largely unremarkable for causes of persistent nausea/emesis. GI had planned to perform EGD for further investigation. Differential for abdominal pain with chronic nausea is broad with no specific symptoms but includes ovarian torsion, gastritis, cyclic vomiting, functional abdominal pain/functional nausea, , cannaboid hyperemesis syndrome. Functional etiologies are of high suspicion given her largely negative workup thus far and history of anxiety. Gastritis is also a concern and warrants endoscopic evaluation. She had a negative UPT on admission. She denies marijuana use. - Admit to GI - MIVF - NPO at midnight for EGD 09/14 - Zofran prn Abdominal pain 07/20/2019 Assessment & Plan (09/19/2019 10:53 AM SCUBA INSTRUCTOR): Right lower quadrant abdominal pain began in July 2019. CT showed Right ovarian corpus luteal cyst with mild free fluid in the cul-de-sac. Abdominal pain has improved since starting OCP. Still has mild mid abdomen crampy pain when vomiting but not similar to previous pain. Physical exam unremarkable. US w/ doppler on admission negative for torsion. Abdominal pain now resolved. - Tylenol prn for pain, avoid NSAIDS - Continue OCP Assessment & Plan (09/18/2019 12:17 PM SCUBA INSTRUCTOR): Right lower quadrant abdominal pain began in July 2019. CT showed Right ovarian corpus luteal cyst with mild free fluid in the cul-de-sac. Abdominal pain has improved since starting OCP. Still has mild mid abdomen crampy pain when vomiting but not similar to previous pain. Physical exam unremarkable. US w/ doppler on admission negative for torsion. - Tylenol prn for pain, avoid NSAIDS - Continue OCP Assessment & Plan (09/17/2019 3:13 PM SCUBA INSTRUCTOR): Right lower quadrant abdominal pain began in July 2019. CT showed Right ovarian corpus luteal cyst with mild free fluid in the cul-de-sac. Abdominal pain has improved since starting OCP. Still has mild mid abdomen crampy pain when vomiting but not similar to previous pain. Physical exam unremarkable. US w/ doppler on admission negative for torsion. - Tylenol prn for pain, avoid NSAIDS - Continue OCP Assessment & Plan (09/16/2019 11:42 AM SCUBA INSTRUCTOR): Right lower quadrant abdominal pain began in July 2019. CT showed Right ovarian corpus luteal cyst with mild free fluid in the cul-de-sac. Abdominal pain has improved since starting OCP. Still has mild mid abdomen crampy pain when vomiting but not similar to previous pain. Physical exam unremarkable. US w/ doppler on admission negative for torsion. - Tylenol prn for pain, avoid NSAIDS - Continue OCP Assessment & Plan (09/15/2019 2:52 PM SCUBA INSTRUCTOR): Right lower quadrant abdominal pain began in July 2019. CT showed Right ovarian corpus luteal cyst with mild free fluid in the cul-de-sac. Abdominal pain has improved since starting OCP. Still has mild mid abdomen crampy pain when vomiting but not similar to previous pain. Physical exam unremarkable. US w/ doppler on admission negative for torsion. - Tylenol prn for pain, avoid NSAIDS - Continue OCP Assessment & Plan (09/14/2019 1:00 PM SCUBA INSTRUCTOR): Right lower quadrant abdominal pain began in July 2019. CT showed Right ovarian corpus luteal cyst with mild free fluid in the cul-de-sac. Abdominal pain has improved since starting OCP. Still has mild mid abdomen crampy pain when vomiting but not similar to previous pain. Physical exam unremarkable. US w/ doppler on admission negative for torsion. - Tylenol prn for pain, avoid NSAIDS - Continue OCP Assessment & Plan (09/13/2019 7:46 PM SCUBA INSTRUCTOR): Right lower quadrant abdominal pain began in July 2019. CT showed Right ovarian corpus luteal cyst with mild free fluid in the cul-de-sac. Abdominal pain has improved since starting OCP. Still has mild mid abdomen crampy pain when vomiting but not similar to previous pain. Physical exam unremarkable. US w/ doppler on admission negative for torsion. - Tylenol prn for pain, avoid NSAIDS - Continue OCP Assessment & Plan (07/23/2019 12:28 PM SCUBA INSTRUCTOR): 19 year old girl with PMH obesity, asthma, anxiety here with abdominopelvic pain. Cause of abdominal pain is likely ruptured ovarian cyst. Clinically her pain is getting better, rated as a 6/10. - CT abdo/pelvis: appendix within normal limits, ovarian cyst with small amount of free fluid in posterior cul-de-sac. Prolactin:8.9 LH:4.6 FSH:1.8 TSH:wnl Plan: - Consider discharge if meets oral intake - discontinue iv fluids -encourage oral intake - regular diet, POAL -HEALTHCARE ACCOUNT MANAGER following -Scheduled tylenol and toradol q6hr for pain -start OCP with discharge and f/u with gynecology -f/u DHES-A, Testosterone results Assessment & Plan (07/22/2019 9:02 AM SCUBA INSTRUCTOR): 19 year old girl with PMH obesity, asthma, anxiety here with RLQ abdominal pain. Cause of abdominal pain is still unclear. Clinically her pain is slightly worse than on admission, rated as a 7/10. Ultrasound on 07/20 was unable to visualize the appendix however there were no secondary changes to indicate appendicitis, however this could not be ruled out. - s/p 1L NSB x3 - mIVF D5NS - regular diet, POAL - serial abdominal exam - CT abdo/pelvis: appendix wnl, ovarian cyst with small amount of free fluid in posterior cul-de-sac -HEALTHCARE ACCOUNT MANAGER following -Schd tylenol and toradol q6hr for pain - f/u FSH, LH, prolactin, DHEAS, free and total testerone; if wnl can start OCP Assessment & Plan (07/21/2019 12:42 PM SCUBA INSTRUCTOR): 19 year old girl with PMH obesity, asthma, anxiety here with RLQ abdominal pain. Cause of abdominal pain is still unclear. Clinically her pain is slightly worse than on admission, rated as a 7/10. Ultrasound on 07/20 was unable to visualize the appendix however there were no secondary changes to indicate appendicitis, however this could not be ruled out. - s/p 1L NSB x3 - mIVF D5NS - regular diet, POAL - serial abdominal exam - if abdominal pain reoccurs and persists, consider consult to gynecology for TVUS and bimanual exam to r/o ovarian pathology - CT abdo/pelvis: appendix wnl, ovarian cyst with small amount of free fluid in posterior cul-de-sac Assessment & Plan (07/20/2019 1:18 AM SCUBA INSTRUCTOR): 19 year old girl with PMH obesity, asthma, anxiety presents with 5 days of nausea and 3 days of abdominal pain, now significantly improved with IV fluid rehydration and IV migraine cocktail. Differential is broad, including infectious etiologies, SSRI-induced GI discomfort, cholelithiasis. Patient does endorse recent contact with friend having emesis, however infectious gastroenteritis is unlikely in individual with only vomiting and no diarrhea. Abdominal pain worsened by eating in a female of reproductive age who is obese raises concern for cholelithiasis, however pain is exacerbated by all foods, whereas pain with cholelithiasis is typically provoked by fatty meals. Furthermore, no cholecystitis or cholelithiasis detected on ultrasound, which is a good imaging modality for detecting gross gallbladder pathology. Finally, GI upset including nausea, vomiting and abdominal pain are well-known side effects of SSRIs, which she has been on for the last 3 weeks with recent increase in dosage coinciding with onset of abdominal pain. It is possible that her current symptoms are side effects of SSRI therapy, which are typically transient and resolve with continued therapy over the course of several weeks to months. General well appearance over the last several days without fever, altered mental status, hypotension or other vital sign abnormalities makes appendicitis not likely. Persistence of bowel movements rules out intestinal obstruction. Interestingly, patient has history of ruptured ovarian cyst which presented with abdominal pain several years ago. Per mother, at gynecology exam 1 year ago no abnormalities were detected on exam. Reoccurrence of ovarian cyst or similar pathology can present with lower quadrant pain - transvaginal ultrasound and bimanual exam would be required to assess for ovarian abnormalities. Presently, abdominal pain and nausea have responded well in a short period of time to IV rehydration therapy and IV migraine cocktail, with patient now resting comfortably. Due to slightly sluggish capillary refill suggesting dehydration, will administer another fluid bolus and continue maintenance IV fluids overnight. Will reasses nausea and pain level in the morning, and can consider scheduling IV cocktail at that time if needed. In morning will also consider stopping IV fluids to encourage PO intake. - 1L NSB - mIVF D5NS - regular diet, POAL - serial abdominal exam - if abdominal pain reoccurs and persists, consider consult to gynecology for TVUS and bimanual exam to r/o ovarian pathology Asthma 07/20/2019 Assessment & Plan (07/23/2019 12:26 PM SCUBA INSTRUCTOR): History of numerous hospitalizations due to asthma exacerbations in childhood, with several day long stay in PICU 5 or 6 years ago (no intubations). Asthma presently well-controlled on regimen of qHS breo inhaler, with no hospitalizations or exacerbations in last several years. - continue qHS breo - albuterol PRN q4hrs Assessment & Plan (07/22/2019 9:02 AM SCUBA INSTRUCTOR): History of numerous hospitalizations due to asthma exacerbations in childhood, with several day long stay in PICU 5 or 6 years ago (no intubations). Asthma presently well-controlled on regimen of qHS breo inhaler, with no hospitalizations or exacerbations in last several years. - continue qHS breo - albuterol PRN q4hrs Assessment & Plan (07/21/2019 7:29 AM SCUBA INSTRUCTOR): History of numerous hospitalizations due to asthma exacerbations in childhood, with several day long stay in PICU 5 or 6 years ago (no intubations). Asthma presently well-controlled on regimen of qHS breo inhaler, with no hospitalizations or exacerbations in last several years. - continue qHS breo - albuterol PRN q4hrs Assessment & Plan (07/20/2019 1:12 AM SCUBA INSTRUCTOR): History of numerous hospitalizations due to asthma exacerbations in childhood, with several day long stay in PICU 5 or 6 years ago (no intubations). Asthma presently well-controlled on regimen of qHS breo inhaler, with no hospitalizations or exacerbations in last several years. - continue qHS breo - albuterol PRN q4hrs Anxiety 07/20/2019 Assessment & Plan (07/23/2019 12:26 PM SCUBA INSTRUCTOR): Followed by therapist, patient states that therapy has helped her symptoms of depression and anxiety. PMD started celexa 3 weeks ago, patient states that this is helping as well. Endorses intermittent passive SI without plan that started 4 months ago but has improved since starting therapy and SSRI. Has not had SI for several months and denies SI presently. No prior suicide attempts or self-harm. - celexa 20mg qHS Assessment & Plan (07/22/2019 7:17 AM SCUBA INSTRUCTOR): Followed by therapist, patient states that therapy has helped her symptoms of depression and anxiety. PMD started celexa 3 weeks ago, patient states that this is helping as well. Endorses intermittent passive SI without plan that started 4 months ago but has improved since starting therapy and SSRI. Has not had SI for several months and denies SI presently. No prior suicide attempts or self-harm. - celexa 20mg qHS Assessment & Plan (07/21/2019 7:29 AM SCUBA INSTRUCTOR): Followed by therapist, patient states that therapy has helped her symptoms of depression and anxiety. PMD started celexa 3 weeks ago, patient states that this is helping as well. Endorses intermittent passive SI without plan that started 4 months ago but has improved since starting therapy and SSRI. Has not had SI for several months and denies SI presently. No prior suicide attempts or self-harm. - celexa 20mg qHS Assessment & Plan (07/20/2019 1:14 AM SCUBA INSTRUCTOR): Followed by therapist, patient states that therapy has helped her symptoms of depression and anxiety. PMD started celexa 3 weeks ago, patient states that this is helping as well. Endorses intermittent passive SI without plan that started 4 months ago but has improved since starting therapy and SSRI. Has not had SI for several months and denies SI presently. No prior suicide attempts or self-harm. 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 She endorses mild photophobia as well as nausea and vomiting; the whether not nausea and vomiting are associated with headaches is unclear. She was admitted for evaluation of a fainting spell. During this admission neurology was consulted.Headaches are attributed to migraines and fainting is attributed to vasovagal syncope. See vasovagal syncope assessment and plan for more details. -- s/p Migraine cocktail x3 with improvement of HUANG -- will start topiramate as an outpatient after completing her nortriptyline wean. -- outpatient cognitive behavioral therapy recommended. -- outpatient follow-up with Neurology. Assessment & Plan (11/05/2019 2:27 PM SCUBA INSTRUCTOR): Patient with daily headaches for the past few weeks. She endorses mild photophobia as well as nausea and vomiting; the whether not nausea and vomiting are associated with headaches is unclear. She was admitted for evaluation of a fainting spell. During this admission neurology was consulted.Headaches are attributed to migraines and fainting is attributed to vasovagal syncope. See vasovagal syncope assessment and plan for more details. -- Migraine cocktail (IV Toradol, IV Compazine, IV Benadryl) -- will start topiramate as an outpatient after completing her nortriptyline wean. -- outpatient cognitive behavioral therapy recommended. -- outpatient follow-up with Neurology. Resolved Problems Problem Noted Date Diagnosed Date Resolved Date Intractable abdominal pain 01/13/2023 0 01/13/2023 Vomiting 10/24/2020 10/01/2021 Assessment & Plan (10/26/2020 2:12 PM SCUBA INSTRUCTOR): Nina is an 20yo with past medical history of SIBO (small intestine bacterial overgrowth syndrome), chronic abdominal pain with vomiting, and anxiety and depression who presented with acute episode of persistent vomiting with eating and pain. PO Protonix was transitioned to Prevacid 30mg BID. She has been able to tolerate a regular diet. We will PO challenge her 18 oz/4hr. - Advance diet as tolerated mIV fluids - neomycin 500 mg BID rifaximin 550 mg TID - PO Prevacid q 12 hours - Tylenol 1st line prn, Benadryl 2nd line prn, NS bolus 3rd line prn for pain; Levsin PRN for spasms - Zofran prn for nausea - Avoid NSAIDs Assessment & Plan (10/25/2020 1:21 PM SCUBA INSTRUCTOR): Nina is an 20yo with past medical history of SIBO (small intestine bacterial overgrowth syndrome), chronic abdominal pain with vomiting, and anxiety and depression who presented with acute episode of persistent vomiting with eating and pain. From her most recent SIBO testing, it showed increase methane release. We will start neomycin 500 mg twice daily and rifaximin 550 mg 3 times daily for 14 days since this is the recommended treatment for intestinal methanogen overgrowth. Mother reports helpful coping mechanism suggestions from Psychology yesterday. They will also return today. Patient states that abdominal pain better controled by Levsin. We will continue to advance the diet as tolerated and transition IV medications to PO. - Advance diet as tolerated mIV fluids - neomycin 500 mg BID rifaximin 550 mg TID - PO Protonix q 12 hours - Tylenol 1st line prn, Benadryl 2nd line prn, NS bolus 3rd line prn for pain; Levsin PRN for spasms - Zofran prn for nausea - Avoid NSAIDs Assessment & Plan (10/24/2020 6:08 AM SCUBA INSTRUCTOR): Nina is an 20yo with past medical history of SIBO (small intestine bacterial overgrowth syndrome), chronic abdominal pain with vomiting, and anxiety and depression. She presents for care of acute episode of intractable vomiting with pain that has been ongoing for the last 4 days as well as single episode of hematemesis on evening of presentation. Symptoms are consistent with prior episodes and are likely acute exacerbation of SIBO or, alternatively, functional chronic abdominal pain with vomiting. Symptoms are severe with evidence of dehydration as well as hematemesis, likely due to Roma Yoav tears, due to intractable vomiting. Differential diagnosis may include viral gastroenteritis, GERD, gastric or duodenal ulcer although pain profile inconsistent with these diagnoses and EGD completed in was unremarkable.. Pancreatitis less likely with normal lipase level. - Treat symptoms with: - Maintenance IV fluids - IV Protonix q 12 hours - Tylenol 1st line prn, Benadryl 2nd line prn, NS bolus 3rd line prn for pain - Zofran prn for nausea - Avoid NSAIDs - NPO while monitoring for further GI bleeding Hematemesis 10/24/2020 10/25/2020 Assessment & Plan (10/25/2020 10:34 AM SCUBA INSTRUCTOR): Hematemesis occurred in setting of intractable vomiting for several day duration. 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 - IV Protonix q 12 hours - Avoid NSAIDs Assessment & Plan (10/24/2020 2:10 AM SCUBA INSTRUCTOR): Hematemesis occurred in setting of intractable vomiting for several day duration. 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 - NPO while monitoring for further GI bleeding - Careful tracking and documentation of frequency and nature of emesis - Avoid NSAIDs - IV Protonix q 12 hours Dehydration 10/24/2020 10/01/2021 Assessment & Plan (10/26/2020 10:30 AM SCUBA INSTRUCTOR): Symptoms of dehydration include decreased urination and delayed capillary refill (identified on exam in ED). She completed a normal saline bolus in the ED. Once she is able to tolerate adequate oral hydration, IV fluids will be discontinued. - Continue mIV fluids Assessment & Plan (10/25/2020 10:35 AM SCUBA INSTRUCTOR): Symptoms of dehydration include decreased urination and delayed capillary refill (identified on exam in ED). She completed a normal saline bolus in the ED. Once she is able to tolerate adequate oral hydration, IV fluids will be discontinued. - Continue mIV fluids Assessment & Plan (10/24/2020 2:11 AM SCUBA INSTRUCTOR): Symptoms of dehydration include decreased urination and delayed capillary refill (identified on exam in ED). She completed a normal saline bolus in the ED. - Continue mIV fluids Mild malnutrition 09/15/2019 08/22/2020 Assessment & Plan (09/19/2019 10:53 AM SCUBA INSTRUCTOR): 15 pound weight loss over several months due to chronic nausea and vomiting with resultant poor appetite. - Manage nausea symptoms - nutrition consult Assessment & Plan (09/18/2019 12:24 PM SCUBA INSTRUCTOR): 15 pound weight loss over several months due to chronic nausea and vomiting with resultant poor appetite. - Manage nausea symptoms - nutrition consult Assessment & Plan (09/17/2019 3:13 PM SCUBA INSTRUCTOR): 15 pound weight loss over several months due to chronic nausea and vomiting with resultant poor appetite. - Manage nausea symptoms - nutrition consult - Consider cyproheptadine Assessment & Plan (09/16/2019 11:43 AM SCUBA INSTRUCTOR): 15 pound weight loss over several months due to chronic nausea and vomiting with resultant poor appetite. - Manage nausea symptoms - nutrition consult - Consider cyproheptadine Assessment & Plan (09/15/2019 3:00 PM SCUBA INSTRUCTOR): 15 pound weight loss over several months due to chronic nausea and vomiting with resultant poor appetite. 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 08/17/2018 Immunizations Name Administration Dates Next Due DTaP 02/23/2006, 3,2002,07/07,2002 HPV9 06/09/2016,12/06/2015,02/22/2015 Hep A, Unspecified 02/01/2008,03/30/2007 Hep B Vaccine 2002,2002,2002 HiB 02/24/2003, 3,2002,05/09 IPV 02/23/2006, 3,2002,05/09 Influenza, Quadrivalent, Kaycee l Culture-based MDCK, Preservative Free, Antibiotic Free, Intramuscular 08/21/2020 Influenza, Quadrivalent, Spl it, Preservative Free, Intramuscular 06/22/2019,07/21/2018,06/08/2017,06/09 Influenza, Trivalent, IM (MDV) 07/03/2015,2013,06/29/2013 Influenza, Trivalent, Preser vative Free, Intramuscular 07/04/2013,05/22/2012,06/17/2011,07/11,06/25/2006 Influenza, Unspecified 07/23/2021,07/31/2020, MMR 02/23/2006,02/24/2003 Meningococcal B, Recombinant (Trumenba) 09/02/2019,08/17/2018 Meningococcal MCV4P (Menactra) 08/17/2018,2013 PPD TEST 02/23/2006 Pfizer SARS-CoV-2 Monovalent Vaccination (12+ Yrs) PURPLE 07/23/2021,11/24/2020,11/01/2020 Pneumococcal Conjugate, Unspecified 02/24/2003,0 2002,2002 Tdap 10/01/2021,03/25/2013 Varicella 02/01/2008,02/24/2003 Surgical History Surgery Date Site/Laterality Comments WRIST SURGERY LUMBAR PUNCTURE WO INJECTION , THERAPEUTIC 11/04/2019 N/A LAPAROSCOPIC CHOLECYSTECTOMY 08/31/2020 - 08/30/2021 da Carl robotic Medical History Medical History Date Comments Asthma Abnormal electrocardiography 01/19/2017 Savita otation: Saw cardiology 2016 and was cleared, repeat 08/25/19 Normal sinus rhythm with sinus arrhythmia with short [place] Anxiety 07/20/2019 Biliary dyskinesia Migraine headache Mononucleosis Small intestinal bacterial o vergrowth (SIBO) Social History Tobacco Use Types Packs/Day Years Used Date Smoking Tobacco: Never Smokeless Tobacco: Never Alcohol Use Standard Drinks/Week Comments Never 0 (1 standard drink = 0.6 oz pur e alcohol) Social Connection and Isolat ion Panel [NHANES] Answer Date Recorded In a typical week, how many times do you talk on the phone with family, friends, or neighbors? More than three times a week 01/13/2023 How often do you get togethe r with friends or relatives? More than three times a week 01/13/2023 How often do you attend chur ch or mosque services? More than 4 times per year 01/13/2023 Do you belong to any clubs o r organizations such as episcopalian groups, unions, fraternal or athletic groups, or school groups? No 01/13/2023 How often do you attend meet ings of the clubs or organizations you belong to? Never 01/13/2023 Are you , , di vorced, , never , or living with a partner? Never 01/13/2023 AUDIT-C Answer Date Recorded Q1: How often do you have a drink containing alcohol? Never 01/13/2023 Q2: How many drinks containi ng alcohol do you have on a typical day when you are drinking? Patient does not drink Q3: How often do you have si x or more drinks on one occasion? Never 01/13/2023 Overall Financial Resource Strain (CARDIA) Answe r Date Recorded How hard is it for you to pa y for the very basics like food, housing, medical care, and heating? Not hard at all 01/13/2023 PHQ-2 Answer Date Recorded PHQ-2 Total Score (If total score is 3 or more points, staff should administer the PHQ-9) 0 10/09/2021 Hunger Vital Sign Answer Date Recorded Within the past 12 months, y ou worried that your food would run out before you got the money to buy more. Never true 01/14/20 23 Within the past 12 months, t he food you bought just didn't last and you didn't have money to get more. Never true 01/13/2023 PRAPARE - Transportation Answer Date Re corded In the past 12 months, has l ack of transportation kept you from medical appointments or from getting medications? No 12/29 In the past 12 months, has l ack of transportation kept you from meetings, work, or from getting things needed for daily living? No 01/13/2023 Housing Stability Vital Sign Answer Juan e Recorded In the last 12 months, was t here a time when you were not able to pay the mortgage or rent on time? No 01/13/2023 In the last 12 months, how many places have you lived? 2 01/13/2023 In the last 12 months, was t here a time when you did not have a steady place to sleep or slept in a intermediate (including now)? No 01/13/2023 Personal Safety Answer Date Recorded Have you ever been in or are you currently in a harmful physical or emotional relationship or is someone making you feel afraid or unsafe? Denies 01/12/2023 Comments No Sex and Gender Information Value Date Recorded Sex Assigned at Not on file Legal Sex 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 SCUBA INSTRUCTOR Gender Identity Not on file Sexual Orientation Not on file Obstetrics History Last Filed Vital Signs Vital Sign Reading Time Taken Comments Blood Pressure 120/98 01/15/2023 4:20 PM CDT Pulse 67 01/15/2023 4:20 PM CDT Temperature 36.8 ??C (98.3 ??F) 01/15/2023 4:20 PM CD T Respiratory Rate 16 01/15/2023 4:20 PM CDT Oxygen Saturation 100% 01/15/2023 4:20 PM CDT Inhaled Oxygen Concentration - - Weight 95.3 kg (210 lb 1.6 oz) 01/13/2023 2:16 A M CDT Height 160 cm (5' 3 ) 01/13/2023 2:16 AM CDT Body Mass Index 37.22 01/13/2023 2:16 AM CDT Plan of Treatment Health Maintenance Due Date Last Done Comments Cervical Cancer Screening 2002 Hepatitis C Screening 2002 Pneumococcal vaccine <65 (1 of 1 - PPSV23 or PCV20) 02/22/2008 02/24/2003, 2002, 2002 Depression Screening 10/01/2022 10/01/2021, 09/02/2019, 06/28/2019, Additional history exists Regular Well Visit/Exam 18-64 10/01/2022 10/01/2021 Covid-19 Vaccine (2023-2 5 season) 2024 07/23/2021, 11/24/2020, 11/01/2020 Influenza Vaccine (#1) 2024 , 08/21/2020, 07/31/2020, Additional history exists DTaP/Tdap/Td Vaccine (8 - Td or Tdap) 10/01/2031 10/01/2021, 03/25/2013, 02/23/2006, Additional history exists Varicella Vaccines Completed 02/01/2008, 02/24/2003 HPV Vaccines Completed 06/09/2016, 02/2016, 02/22/2015 Meningococcal B Vaccine Completed 09/02/2019, 08/17 Insurance [employer] OPEN ACCESS [employer] OPEN ACCESS [employer] [place] [facility] OPEN ACCESS [facility] Advance Directives For more information, please contact: [phone] Documents on File Type Date Recorded Patient Finisher Card Tender Expl anation ADVANCE DIRECTIVE 02/01/2021 9:08 AM ADVANCE DIRECTIVE 10/25/2020 6:08 AM ADVANCE DIRECTIVE 08/29/2020 8:08 AM * Full Code (Latest Code Status on File) Date Activated Date Inactivated Comments 01/13/2023 12:01 AM 01/15/2023 10:09 PM * Full Code Date Activated Date Inactivated Comments 10/24/2020 2:47 AM 10/27/2020 5:29 PM * Full Code Date Activated Date Inactivated Comments 11/03/2019 12:28 AM 11/06/2019 7:46 PM * Full Code Date Activated Date Inactivated Comments 09/13/2019 6:15 PM 09/20/2019 6:19 PM * Full Code Date Activated Date Inactivated Comments 07/19/2019 9:45 PM 07/23/2019 7:58 PM Care Teams [employer] Leader Relationship Specialty [place] [address] [place] [address] PCP - General Physician Avian Keeper 01/27/23 Johnna Tinajero MD [address] [address] 07/19/19 Luciaon Edwards MD [address] [id number] Consulting Physician General Surgery 02/01/21 [place] [address] [place] [address] Consulting Physician Gastroenterology 01/15/23
--- OUTSIDE RECORDS SUMMARY | 2024-08-28 02:11 | XMS_ITS | Clinical Summary ---
Author Organization [facility] Address [address] [place] [address] Care Team Providers Care Medical Biller/Coder Name Role Phone Johnna Tinajero MD Primary Care Provider + Source Comments [facility],non-owned Affiliates and Associated Physician Practices is amultiple site organization consisting of ambulatory clinics and hospital sitesin [place], [place], [place] and [place]. This disclosure is being madepursuant to the Care Everywhere program and may not contain all information available regarding this patient. Last updated 18.[facility] Allergies Active Allergy Reactions Criticality Noted Date [...] fluticasone propionate (FLONASE) 50 MCG/ACT nasal spray [place] 2 sprays into each nostril once daily [...] Comments Blood Pressure 120/82 08/21/2021 2:11 PM KNIFER UP Pulse 80 08/21/2021 2:11 PM KNIFER UP Temperature 36.6 ??C (97.9 ??F) 08/21/2021 2:11 PM CS T Respiratory Rate 18 08/21/2021 2:11 PM KNIFER UP Oxygen Saturation 99% 08/21/2021 2:11 PM KNIFER UP Inhaled Oxygen Concentration - - Weight 90.7 kg (200 lb) 08/21/2021 2:11 PM KNIFER UP Height 160 cm (5' 3 ) 08/21/2021 2:11 PM KNIFER UP Body Mass Index 35.43 08/21/2021 2:11 PM KNIFER UP Plan of Treatment Health Maintenance Due Date Last Done Comments PAP SMEAR 2002 HIV SCREENING 2017 HPV VACCINE (1 - 3-dose series) 2017 CHLAMYDIA/GONORRHEA SCREENING 2018 HEPATITIS C SCREENING 02/17/2020 DTAP/TDAP/TD VACCINES (1 - Tdap) 2021 HEPATITIS B VACCINE (1 of 3 - 19+ 3-dose series) 2021 DEPRESSION SCREENING 08/31/2023 COVID-19 VACCINE (4 - 2023- season) 2024 07/23/2021, 11/24/2020, 11/01/2020 INFLUENZA VACCINE (#1) 2024 , 08/21/2020, 07/31/2020, Additional history exists ZOSTER VACCINE (1 of 2) 02/22/2052 HIB VACCINE Aged Out No longer eligi ble based on patient's age to complete this topic MENINGOCOCCAL VACCINE Aged Out No deisi tacho eligible based on patient's age to complete this topic PNEUMOCOCCAL VACCINE Aged Out No long er eligible based on patient's age to complete this topic Care Teams Medical Biller/Coder Relationship Specialty Start Date End Date Johnna Tinajero MD [address] [address] PCP - General Pediatrics 09/23/17
--- OUTSIDE RECORDS SUMMARY | 2024-08-28 02:11 | XMS_ITS | Encounter Summary ---
Author Organization [facility] Address [address] [place] [address] Care Team Providers Care Can Patcher Name Role Phone Johnna Tinajero MD Primary Care Provider + Reason for Visit * Reason Onset Date Comments Follow-up 10/07/2017 Encounter Details Date Type Department Care Team (Late st Contact Info) Description 10/07/2017 Telephone [facility] Diarize [facility] [address] [phone] [place] Follow-up Social History Tobacco Use Types Packs/Day Years Used Date Smoking Tobacco: Never Smokeless Tobacco: Never Sex and Gender Information Value Date Recorded Sex Assigned at Not on file Gender Identity Not on file Sexual Orientation Not on file documented as of this encounter Plan of Treatment Not on file documented as of this encounter Visit Diagnoses Not on filedocumented in this encounter Care Teams Can Patcher Relationship Specialty Start Date End Date Johnna Tinajero MD [address] [address] PCP - General Pediatrics 09/23/17 documented as of this encounter
--- OUTSIDE RECORDS SUMMARY | 2024-08-28 02:11 | XMS_ITS | Encounter Summary ---
Author Organization [facility] Address [address] [address] Care Team Providers Care Mail Truck Driver Name Role Phone Johnna Tinajero MD Primary Care Provider + Reason for Visit * Reason Onset Date Comments Follow-up 09/25/2017 Encounter Details Date Type Department Care Team (Late st Contact Info) Description 09/25/2017 Telephone [facility] [address] [phone] Rajwinder [place] Follow-up Social History Tobacco Use [...] on filedocumented in this encounter Care Teams Mail Truck Driver Relationship Specialty Start Date End Date Johnna Tinajero MD [address] [address] PCP - General Pediatrics 09/23/17 documented as of this encounter
--- OUTSIDE RECORDS SUMMARY | 2024-08-28 02:11 | XMS_ITS | Continuity of Care Document ---
Author Organization [place] - [facility] [place] Address [address] [place] [address] Care Team Providers Care Prosthetics Technician Name Role Phone LANNY COTO Primary Care Provider Unavailab le Assessment No assessment recorded. Plan of Treatment Reminders Order Date Submit Date Provider Last Modified By Organization Details Last Modified Time Details Appointments None recorded. Lab TSH + free T4, serum 2023 SHARRI LABMELISSARP, [address] [place] [address], [address], [place], [address], 09:16:02 CMP, serum or plasma 2023 SHARRI LABEVELIA, [address] [place] [address], [address], [place], [address], 4 09:16:05 CBC w/ auto diff 2023 SHARRI LABEVELIA, [address] [place] [address], [address], [place], [address], 4 09:16:07 lipid panel, serum 2023 024 SHARRI ALYSSA, [address] [place] [address], [address], [place], [address], 4 09:16:03 HbA1c (hemoglobin A1c), blood 2023 CAPE CORAL ALYSSA, [address] [facility], [address], [place], [address], 09:16:06 Referral None recorded. Procedures None recorded. Surgeries None recorded. Imaging None recorded. Medication Orders omeprazole 40 mg capsule,del ayed release 2023 [facility] [address] [place], [address], 12:24:12 albuterol sulfate HFA 90 mcg/actuati on aerosol inhaler 2023 [facility] [address] [place], [address], 4 12:24:11 Breo Ellipta 100 mcg-25 mcg/dose powder for inhalation 2023 [facility] [address] [place], [address], 12:24:11 Wegovy 0.25 mg/0.5 mL subcutaneou s pen injector 2023 [facility] [address] [place], [address], 13:28:06 Patient TargetsNo targets recorded. Patient Instructions Encounter Date Encounter Id Patient Instructions Last Modified By Organization Details Last Modified Time 06/30/2024 [id number] A healthy lifestyle: care instructions [email or web address] Not available 06/30/2024 12:24:05 Reason for Referral None Reported. Results Created Date Observation Date Name Description Value Unit Range Abnormal Flag Note LastModifiedBy Organization Detail LastModifiedTime 08/21/20 24 08/21/2024 XR, chest , 2 view No observ ation record ed. [email or web address] [facility] [address] [facility] [address], [place], [address], 08/22/2024 08:28:25 Result Notes None recorded. Problems Name Problem SNOMED Code Status Onset Date Resolution Date Notes Provider Name and Address Organization Details Recorded Time Body mass index 40+ - severely obese 039358723 Active 2023 Germán Houser [place] null, [place] 4 11:51:21 Asthma 121541150 Active 2023 ANAIS Taylor Attn: Accountin g,[address] [facility], [place], [place], [address] [place] [address] 2, [facility] - [facility] 4 12:10:09 Long-term drug therapy Active 2023 ANAIS Taylor Attn: Accountin g,[address] [facility], [place], [place], [address] [place] [address] 2, [facility] - [facility]IF 4 17:33:50 Obesity 104031551 Active 2023 ANAIS Taylor Attn: Accountin g,[address] [facility], [place], [address] [place] [address] 2, [facility] - SI 4 17:34:15 Positive screening for depression on PHQ-9 (Patient Health Questionnai re 9) [id number] 00 Active 2023 ANAIS Taylor Attn: Accountin g,[address] [facility], [place], [place], [address] [place] [address] 2, [facility] - [facility] 4 17:34:44 Problem Notes None recorded. Procedures Surgical History Date Name Laterality Status Provider Name and Address Organization Details Recorded Time Cholecystectomy completed Germán Houser [place] 06/30/2024 11:53:48 Imaging Results None recorded. Procedure Notes None recorded. Medical Equipment None Reported. Allergies Allergen ID Allergen Name Allergen Category Reaction Reaction Severity Criticality Documentation Date Start Date Code Code System Note Provider Name and Address Organization Details Recorded Time 465695 Medicinal product containin g penicilli n and acting as antibacte rial agent (product) medicatio n rash mild unabletoasse ss 04/29/2024 01254 05 SNOMED Indu Browning LPN null, [place] 17:49:27 Medications Name Sig Start Date Stop Date Status Note LastModified by Organization Details LastModified Time doxepin 25 mg capsule TAKE 1 TO 2 CAPSULES BY MOUTH EVERY DAY AT BEDTIME 06/30 completed Not Available Not Available Not Available hydrocodone 5 mg-acetamin ophen 325 mg tablet TAKE 1 TABLET BY MOUTH EVERY 6 HOURS NEEDED FOR PAIN FOR UP TO 3 DAYS 06/30 completed Not Available Not Available Not Available prochlorper azine maleate 5 mg tablet TAKE 1 TABLET BY MOUTH EVERY 6 HOURS NEEDED FOR NAUSEA FOR VOMITING 06/30 completed Not Available Not Available Not Available sertraline 100 mg tablet TAKE 1 TABLET BY MOUTH IN THE MORNING 06/30 completed Not Available Not Available Not Available ciprofloxac in 500 mg tablet Take 1 tablet every 12 hours by oral route. active Not Available Not Available No t Available omeprazole 40 mg capsule,del ayed release Take by oral route for 90 days. 2023 active Not Available Not Available Not Avai lable metoclopram gabino 5 mg tablet TAKE 1 TABLET BY MOUTH 4 TIMES DAILY 30 MINUTES BEFORE MEALS AND AT BEDTIME 06/30 completed Not Available Not Available Not Available dicyclomine 20 mg tablet TAKE 1 TABLET BY MOUTH TWICE DAILY 06/30 completed Not Available Not Available Not Available amitriptyli ne 10 mg tablet TAKE 1 TO 2 TABLETS BY MOUTH AT BEDTIME 06/30 completed Not Available Not Available Not Available cephalexin 500 mg capsule TAKE 1 CAPSULE BY MOUTH 4 TIMES DAILY FOR 7 DAYS 04/29 completed Not Available Not Available Not Available prednisone 50 mg tablet active Not Available Not Available Not Available sertraline 25 mg tablet TAKE 1 TABLET BY MOUTH ONCE DAILY active Not Available Not Available No t Available albuterol sulfate HFA 90 mcg/actuati on aerosol inhaler Inhale 2 puffs every 4 hours by inhalatio n route as needed. 2023 active Not Available Not Available Not Avai lable ondansetron 4 mg disintegrat ing tablet DISSOLVE 1 TABLET IN MOUTH EVERY 8 HOURS FOR 3 DAYS NEEDED FOR NAUSEA OR VOMITING ALLOW TABLET TO DISSOLVE ON TONGUE 06/30 completed Not Available Not Available Not Available cefdinir 300 mg capsule TAKE 1 CAPSULE BY MOUTH EVERY 12 HOURS 06/30 completed Not Available Not Available Not Available Breo Ellipta 100 mcg-25 mcg/dose powder for inhalation Inhale 1 puff every day by inhalatio n route. 2023 active Not Available Not Available Not Avai lable fluticasone furoate 200 mcg-vilante rol 25 mcg/dose inhalation powder INHALE 1 PUFF ONCE DAILY 06/30 completed Not Available Not Available Not Available Plenvu 140 gram-9 gram-5.2 gram powder packs USE DIRECTED THE NIGHT BEFORE AND MORNING OF PROCEDURE 06/30 completed Not Available Not Available Not Available Tri-Lo-Yancy 0.18/0.215/ 0.25 mg-25 mcg tablet TAKE 1 TABLET BY MOUTH ONCE DAILY active Not Available Not Available No t Available Wegovy 1 mg/0.5 mL subcutaneou s pen injector Inject 1 mg every week by subcutane ous route. 2023 active Not Available Not Available Not Avai lable Wegovy 0.25 mg/0.5 mL subcutaneou s pen injector Inject 0.25 mg every week by subcutane ous route. 07/22 completed Not Available Not Available Not Available Wegovy 0.5 mg/0.5 mL subcutaneou s pen injector Inject 0.5 mg every week by subcutane ous route. 08/19 completed Not Available Not Available Not Available Vitals Date Recorded Body weight Body mass index (BMI) Body height Respiratory rate Oxygen saturation Oxygen saturation in Arterial blood by Pulse oximetry Heart rate Systolic blood pressure Diastolic blood pressure Provider Name and Address Organization Details Last Updated DateTime 873299. 42 g 45.9 kg/m2 160.02 cm 18 /min 99 % 99 % 84 /min 126 mm[Hg] 82 mm[Hg] Germán Houser MA [facility] [address] 11:52:56 Date Recorded Systolic blood pressure Diastolic blood pressure Provider Name and Address Organization Details Last Updated DateTime 06/30/2024 120 mm[Hg] 88 mm[Hg] ANAIS Taylor Attn: Accounting,[address] [place], [address], [facility] [address] 06/30/2024 12:24:31 Social History Question Answer Notes LastModified by Organizat ion Details LastModified Time Tobacco Smoking Status Never Smoker Germán Houser MA [facility], [place] [facility] 06/30/2024 11:54:06 What Is Your Level Of Alcohol Consumption? None Information not available 06/30/2024 Are You Blind Or Do You Have Difficulty Seeing? No Glasses Information n ot available 06/30/2024 What Is Your Level Of Caffeine Consumption? None Information not available 06/30/2024 In The 14 Days Before Symptom Onset, Have You Had Close Contact With A Laboratory-confirm ed COVID-19 While That Case Was Ill? No Information n ot available 06/30/2024 In The 14 Days Before Symptom Onset, Have You Had Close Contact With A Person Who Is Under Investigation For COVID-19 While That Person Was Ill? No Information not available 06/30/2024 Have You Been To An Area Known To Be High Risk For COVID-19? No Information not available 06/30/2024 Are You Currently Employed? No Information not available 06/30/2024 Are You Deaf Or Do You Have Serious Difficulty Hearing? No Information not available 06/30/2024 What Type Of Diet Are You Following? REGULAR Information n ot available 06/30/2024 Are There Any Guns Present In Your Home? No Information not available 06/30/2024 What Was The Date Of Your Most Recent Tobacco Screening? 08/03/2024 Information not available 08/03/2024 Do You Use Your Seat Belt Or Car Seat Routinely? Yes Information not available 06/30/2024 Do You Have Smoke And Carbon Monoxide Detectors In Your Home? Yes Information not available 06/30/2024 Do You Use Any Illicit Or Recreational Drugs? No Information not available 06/30/2024 Do You Use Sunscreen Routinely? Yes Information not available 06/30/2024 Has Tobacco Cessation Counseling Been Provided? No Information not available 06/30/2024 Do You Or Have You Ever Used Any Other Forms Of Tobacco Or Nicotine? No Information not available 06/30/2024 Sex: Female Functional Status Question Answer Note LastModified by Organizat ion Details LastModified Time Are you able to care for yourself? Yes Information not available 06/30/2024 What is your exercise level? Occasional Information not available 06/30/2024 Mental Status None recorded. Family History Nothing Reported. Medical History Condition Response Coronary Artery Disease N Other N Atrial Fibrillation N High Blood Pressure N Thyroid Problems N Kidney or Bladder Problems N GI Problems Y Depression N COPD N Blood Clots N Have you had a mammogram in the last yea r? N Skin Problems N Anemia N Heart Attack ([place]) N Diabetes N Anxiety Disorder N Muscle, Joint, or Bone Problems N Seizures/Epilepsy N Have you had a colonoscopy in the last 1 0 years? N Acid Reflux (GERD) N Cancer N Stroke N Asthma Y Allergies Y Have you had a PSA blood test in the las t year? N High Cholesterol N Hepatitis N Liver Disease N Headaches N Osteoporosis N Heart Failure N Gynecological History Statement/Question Response Flow Moderate Date of LMP 05/06/2024 Menses Monthly N Duration of Flow (days) 5 Current Control Method BCPs LMP Approximate Obstetrics History GPAL:G 0 P 0 0 0 0 Immunizations Vaccine Type Date Status Note Provider Nam e and Address Organization Details Recorded Time meningococcal B, recombinant 0 completed Germán Houser [place], [place] [facility] 06/30/2024 11:50:10 meningococcal B, recombinant 8 completed Germán Hous[place] [facility] 06/30/2024 11:50:10 IPV 3 completed Germán Hous[place] [facility] 06/30/2024 11:50:10 IPV 6 completed Germán [place] [facility] 06/30/2024 11:50:10 IPV 2 completed Germán [place] [facility] 06/30/2024 11:50:10 IPV 2 son Hous[place] [facility] 06/30/2024 11:50:10 Influenza, MDCK, quadrivalent, PF 0 son H[place] [facility] 06/30/2024 11:50:10 MMR 6 completed Germán [place] [facility] 06/30/2024 11:50:10 MMR 3 completed Germán [place] [facility] 06/30/2024 11:50:10 COVID-19, mRNA, LNP-S, PF, 30 mcg/0.3 mL dose 1 completed Germán [place] [facility] 06/30/2024 11:50:10 COVID-19, mRNA, LNP-S, PF, 30 mcg/0.3 mL dose 1 completed Germán [place] [facility] 06/30/2024 11:50:10 COVID-19, mRNA, LNP-S, PF, 30 mcg/0.3 mL dose 1 completed Germán [place] [facility] 06/30/2024 11:50:10 Tdap 2 completed Germán [place] [facility] 06/30/2024 11:50:10 Tdap 3 completed Germán [place] [facility] 06/30/2024 11:50:10 varicella 8 completed Germán [place] [facility] 06/30/2024 11:50:10 varicella 3 completed Germán [place] [facility] 06/30/2024 11:50:10 Influenza, split virus, trivalent, preservative 4 completed Germán [place] [facility] 06/30/2024 11:50:10 Influenza, split virus, trivalent, preservative 3 completed Germán [place] [facility] 06/30/2024 11:50:10 Influenza, split virus, trivalent, preservative 5 completed Germán [place] [facility] 06/30/2024 11:50:10 Novel [id number]-[id number] 9 completed THEE [place] [facility] 06/30/2024 11:50:10 meningococcal MCV4P 8 completed THEE [place] [facility] 06/30/2024 11:50:10 Influenza, split virus, quadrivalent, PF 9 [place] THEE [place] [facility] 06/30/2024 11:50:10 Influenza, split virus, quadrivalent, PF 2 [place] THEE [place] [facility] 06/30/2024 11:50:10 Influenza, split virus, quadrivalent, PF 8 [place] THEE [place] [facility] 06/30/2024 11:50:10 Influenza, split virus, quadrivalent, PF 1 [place] THEE [place] [facility] 06/30/2024 11:50:10 Hep A, unspecified formulation 8 completed THEE [place] [facility] 06/30/2024 11:50:10 Hep A, unspecified formulation 7 completed THEE [place] [facility] 06/30/2024 11:50:10 Past Encounters Encounter ID Performer Location Encounter Start Date Encounter Closed Date Diagnosis/Indication Diagnosis SNOMED-CT Code Diagnosis ICD10 Code [id number] ANAIS Taylor [facility] - [place] [address] [place] [address] 06/30/2024 11:15:48 06/30/2024 12:31:56 Body mass index 40+ - severely obese 088338834 Z68.42 Obesity 248778916 E66.9 Adult [facility] th examination 573647879 Z00.00 Asthma 692521573 J45.90 9 Cholesterol screening 27 9473854 Z13.220 Diabetes m ellitus screening 123419998 Z13.1 Long-term drug therapy 312844744 Z79.891 Thyroid di sorder screening 872724576 Z13.29 Upper abdominal pain 831 29316 R10.10 Renewal of prescription 722808707 Z76.0 Positive s creening for depression on PHQ-9 (Patient Health Questionnaire 9) 5634780649 66681 Z13.31 Health Concerns Section Related Observation LastModified by Organization Detai ls LastModified Time None Recorded Concern Status LastModified by Organization Details LastModified Time None Recorded Payers Encounter Date Sequence Insurance Name Policy Number Policy Allen Covered Member ID Allen Member ID Guarantor Name 06/30/2024 1 [facility]: [place] [id number] Nina Coyne [id number] Nina Coyne Notes Date Note Type Note Provider Name and Address Organization Details Recorded Time 06/30/2024 text/html Patient is here for her annual wellness exam. She has a history of asthma that is well-controlled on steroid and albuterol therapy. She also has a longstanding history of GI issues and abdominal pain in which she saw Gastroenterology through her adolescent in teenage years. Overall she feels that those things have improved greatly but she still does struggle with just upper abdominal pain at times which is postprandial. Her gallbladder has been removed in the past she has been scoped and had extensive diagnostic imaging. Currently her main focus is that she would like to discuss weight loss options. She exercises 5 days a week and follows a low calorie diet and is busy with school and is just unable to lose any weight. ANAIS Taylor Attn: Accounting,[address] [place], [address], [place] [facility] 06/30/2024 17:35:16 OBGyn Episode No OBEpisode recorded.
--- OUTSIDE RECORDS SUMMARY | 2024-08-28 02:11 | XMS_ITS | Encounter Summary ---
Author Organization [facility] Address [address] [place] [address] Care Team Providers Care Cable Reeler Name Role Phone Johnna Tinajero MD Primary Care Provider + Encounter Details Date Type Department Care Team (Latest Contact Info) Description 01/23/2021 Travel Social History Tobacco Use Types Packs/Day Years [...] on filedocumented in this encounter Care Teams Cable Reeler Relationship Specialty Start Date End Date Johnna Tinajero MD [address] [address] PCP - General Pediatrics 09/23/17 documented as of this encounter
--- OUTSIDE RECORDS SUMMARY | 2024-08-28 02:11 | XMS_ITS | Encounter Summary ---
Author Organization [facility] Address [address] [facility] [place] [address] Care Team Providers Care Applications Packager Name Role Phone Johnna Tinajero MD Primary Care Provider + Reason for Visit * Reason Comments Ear Pain Headache Pain Neck Encounter Details Date Type Department Care Team (Late st Contact Info) Description 09/23/2017 5:40 PM CYBER SYSTEMS OPERATIONS SPECIALIST Office Visit [facility] AT [address] [id number] Provider, [facility] [place] Other acute nonsuppurative otitis media of both ears, recurrence not specified (Primary Dx) Social History Tobacco Use Types Packs/Day Years Used Date Smoking Tobacco: Never Smokeless Tobacco: Never Sex and Gender Information Value Date Recorded Sex Assigned at Not on file Gender Identity Not on file Sexual Orientation Not on file documented as of this encounter Last Filed Vital Signs Vital Sign Reading Time Taken Comments Blood Pressure 120/80 09/23/2017 5:37 PM CYBER SYSTEMS OPERATIONS SPECIALIST Pulse 94 09/23/2017 5:37 PM CYBER SYSTEMS OPERATIONS SPECIALIST Temperature 36.5 ??C (97.7 ??F) 09/23/2017 5:37 PM CS T Respiratory Rate 16 09/23/2017 5:37 PM CYBER SYSTEMS OPERATIONS SPECIALIST Oxygen Saturation 99% 09/23/2017 5:37 PM CYBER SYSTEMS OPERATIONS SPECIALIST Inhaled Oxygen Concentration - - Weight 107 kg (236 lb) 09/23/2017 5:37 PM CYBER SYSTEMS OPERATIONS SPECIALIST Height 160 cm (5' 3 ) 09/23/2017 5:37 PM CYBER SYSTEMS OPERATIONS SPECIALIST Body Mass Index 41.81 09/23/2017 5:37 PM CYBER SYSTEMS OPERATIONS SPECIALIST Body Mass Index Percentile 99.81% 09/23/2017 5:3 7 PM CYBER SYSTEMS OPERATIONS SPECIALIST Growth Chart: CDC (Girls, 2- 20 Years) documented in this encounter Patient Instructions * Patient Instructions* Jose Mckinney APRN-CNP - 09/23/2017 5:52 PM CYBER SYSTEMS OPERATIONS SPECIALIST Drink plenty of fluids Get plenty of rest Cool mist humidifier Elevate head of bed Tylenol or Ibuprofen per package direction for discomfort\fever (if not allergic) Follow up in 2-3 days if no improvement or sooner if worsening. R SYSTEMS OPERATIONS SPECIALIST documented in this encounter Progress Notes * Jose Mckinney APRN-CNP - 09/23/2017 5:50 PM CST Subjective: Nina Coyne is a 17 y.o. female who presents to the clinic today for Chief Complaint Patient presents with ??? Ear Pain ??? Headache ??? Pain Neck . Primary Care Physician is Johnna Tinajero MD. Symptoms include ear pain bilateral and headache and swollen gland. Onset of symptoms was 2 days ago, gradually worsening since that time. She Has also reported the following symptoms: bilateral ear pressure/pain, and is drinking plenty of fluids. Past Medical History: Diagnosis Date ??? Asthma No family history on file. Current Outpatient Prescriptions Medication Sig Dispense Refill ??? fluticasone-vilanterol (BREO ELLIPTA) 100-25 MCG/INH inhaler Inhale 1 puff by mouth once daily Administer at the same time each day. Rinse mouth after using ??? albuterol HFA (PROAIR HFA) 108 (90 BASE) MCG/ACT inhaler Inhale 2 puffs by mouth every 6 hours as needed ??? azithromycin (ZITHROMAX) 250 MG tablet 2 tabs PO x 1 day then 1 tab daily x 4 days 6 tablet 0 No current facility-administered medications for this visit. Allergies Allergen Reactions ??? Pcn [Penicillins] Social History Social History ??? Marital status: Single Spouse name: N/A ??? Number of children: N/A ??? Years of education: N/A Occupational History ??? Not on file. Social History Main Topics ??? Smoking status: Never Smoker ??? Smokeless tobacco: Never Used ??? Alcohol use Not on file ??? Drug use: Not on file ??? Sexual activity: Not on file Other Topics Concern ??? Not on file Social History Narrative ??? No narrative on file Review of Systems Constitutional: Negative for fatigue, fevers, chills. Eyes: Negative Ears, nose, mouth, and throat: Negative for vertigo, tonsillitis, congestion Respiratory: Negative for shortness of breath, dyspnea on exertion, acute cough, chronic cough Cardiovascular: Negative Objective: BP 120/80 (BP SITE: LEFT ARM, BP POSITION: SITTING, BP CUFF SIZE: Large Adult) Pulse 94 Temp 97.7 ??F (Oral) Resp 16 Ht 1.6 m (5' 3 ) Wt 107 kg (236 lb) SpO2 99% BMI 41.81 kg/m2 Exam General appearance: alert, cooperative, no distress Eyes: sclera and conjunctiva clear, EOMI and PERRLA, lids normal Ears: neither Right tympanic membrane - erythematous and bulging Left tympanic membrane - erythematous and bulging Nose: nares open; no septal deviation is noted Throat: no mucous membrane abnormalities Neck: range of motion is intact, no masses, thyroid not enlarged, no adenopathy Lungs: breath sounds normal and symmetric; no rales or wheezes Heart: regular rhythm, normal S1 and S2, without murmurs, gallops or rubs Assessment: Encounter Diagnosis Name Primary? Other acute nonsuppurative otitis media of both ears, recurrence not specified Yes Plan: 1. See orders below for treatment plan 2. OTC meds (acetaminophen, ibuprofen- doses discussed with parent), fluids, rest, avoid carbonated/alcoholic or caffeinated beverages. 3. Follow up in 3 days Drink plenty of fluids Get plenty of rest Cool mist humidifier Elevate head of bed Tylenol or Ibuprofen per package direction for discomfort\fever (if not allergic) Follow up in 2-3 days if no improvement or sooner if worsening. . 4. Referral placed for PCP if none on file 5. See orders below Orders Placed This Encounter ??? azithromycin (ZITHROMAX) 250 MG tablet Si tabs PO x 1 day then 1 tab daily x 4 days Dispense: 6 tablet Refill: 0 No results found for this or any previous visit (from the past 24 hour(s)). R SYSTEMS OPERATIONS SPECIALIST documented in this encounter Plan of Treatment Not on file documented as of this encounter Visit Diagnoses Diagnosis Other acute nonsuppurative otitis media of both ears, recurrence not specified- Primary documented in this encounter Care Teams Applications Packager Relationship Specialty Start Date End Date Johnna Tinajero MD [address] [place] [address] PCP - General Pediatrics 09/23/17 documented as of this encounter
--- OUTSIDE RECORDS SUMMARY | 2024-08-28 02:11 | XMS_ITS | Encounter Summary ---
Author Organization [facility] Address [address] [place] [address] Care Team Providers Care Utility Worker Name Role Phone Johnna Tinajero MD Primary Care Provider + Reason for Visit * Reason Comments Cough one week Congestion Sinusitis Encounter Details Date Type Department Care Team (Late st Contact Info) Description 08/21/2021 2:00 PM WORKFORCE MANAGEMENT COORDINATOR Office Visit [facility] AT [address] [id number] Provider, [facility] Acute sinusitis, recurrence not specified, unspecified location (Primary Dx); Acute bronchitis, unspecified organism Social History Tobacco Use Types Packs/Day Years [...] have Coronavirus / COVID-19? No / Unsure 08/21/2021 1:54 PM WORKFORCE MANAGEMENT COORDINATOR documented as of this encounter Last Filed Vital Signs Vital Sign Reading Time Taken Comments Blood Pressure 120/82 08/21/2021 2:11 PM WORKFORCE MANAGEMENT COORDINATOR Pulse 80 08/21/2021 2:11 PM WORKFORCE MANAGEMENT COORDINATOR Temperature 36.6 ??C (97.9 ??F) 08/21/2021 2:11 PM CS T Respiratory Rate 18 08/21/2021 2:11 PM WORKFORCE MANAGEMENT COORDINATOR Oxygen Saturation 99% 08/21/2021 2:11 PM WORKFORCE MANAGEMENT COORDINATOR Inhaled Oxygen Concentration - - Weight 90.7 kg (200 lb) 08/21/2021 2:11 PM WORKFORCE MANAGEMENT COORDINATOR Height 160 cm (5' 3 ) 08/21/2021 2:11 PM WORKFORCE MANAGEMENT COORDINATOR Body Mass Index 35.43 08/21/2021 2:11 PM WORKFORCE MANAGEMENT COORDINATOR documented in this encounter Progress Notes * Nghia Caballero, BINA-CNC OPERATOR MACHINIST - 08/21/2021 2:11 PM CST [facility] Nina Coyne is a 21 year old female who presents for evaluation: Chief Complaint Patient presents with ??? Cough one week ??? Congestion ??? Sinusitis Primary Care Physician is Johnna Tinajero MD. SUBJECTIVE: C/o Over a week, Cough, sinus pressure/pain, congestion No hx of covid; received both Covid/Pfizer vaccines; do not believe this is Covid or influenza. Worsening causes; cough At home tx: albuterol, apap cold, flonase Tea with some relief. Past Medical History: Diagnosis Date ??? Asthma ??? Seasonal allergies There is no problem list on file for this patient. Current Outpatient Medications on File Prior to Visit Medication Sig Dispense Refill ??? albuterol HFA (PROAIR HFA) 108 (90 BASE) MCG/ACT inhaler Inhale 2 puffs by mouth every 6 hours as needed ??? fluticasone propionate (FLONASE) 50 MCG/ACT nasal spray [place] 2 sprays into each nostril once daily 1 bottles 0 ??? fluticasone-vilanterol (BREO ELLIPTA) 100-25 MCG/INH inhaler Inhale 1 puff by mouth once daily Administer at the same time each day. Rinse mouth after using No current facility-administered medications on file prior to visit. Past Surgical History: Procedure Laterality Date ??? Cholecystectomy ??? HAND SURGERY Right 2016 Social History [...] Social Determinants of Health Financial Resource Strain: Not on file Food Insecurity: Not on file Transportation Needs: Not on file Physical Activity: Not on file Stress: Not on file Social Connections: Not on file Intimate Partner Violence: Not on file Housing Stability: Not on file No family history on file. Current Outpatient Medications Medication Sig Dispense Refill ??? albuterol HFA (PROAIR HFA) 108 (90 BASE) MCG/ACT inhaler Inhale 2 puffs by mouth every 6 hours as needed ??? azithromycin (ZITHROMAX) 250 MG tablet Take 2 tabs today, then 1 tab daily for next 4 days 6 tablet 0 ??? fluticasone propionate (FLONASE) 50 MCG/ACT nasal spray [place] 2 sprays into each nostril once daily 1 bottles 0 ??? fluticasone-vilanterol (BREO ELLIPTA) 100-25 MCG/INH inhaler Inhale 1 puff by mouth once daily Administer at the same time each day. Rinse mouth after using ??? predniSONE (DELTASONE) 20 MG tablet Take 1 (one) tablet by mouth 2 times daily for 5 days 10 tablet 0 No current facility-administered medications for this visit. Allergies Allergen Reactions ??? Pcn [Penicillins] Rash As a child REVIEW OF SYSTEMS: Review of Systems Constitutional: Positive for chills, fever and malaise/fatigue. HENT: Positive for congestion and sinus pain. Negative for ear pain and sore throat. Respiratory: Positive for cough and sputum production. Negative for hemoptysis, shortness of breathand wheezing. Cardiovascular: Negative. Gastrointestinal: Positive for nausea. Negative for diarrhea and vomiting. Musculoskeletal: Negative. Neurological: Negative. OBJECTIVE: General appearance: alert, pleasant and in no distress. BP 120/82 (BP SITE: RIGHT ARM, BP POSITION: SITTING, BP CUFF SIZE: 11) Pulse 80 Temp 97.9 ??F (36.6??C) (Oral) Resp 18 Ht 1.6 m (5' 3 ) Wt 90.7 kg (200 lb) SpO2 99% BMI 35.43 kg/m2 Physical Exam Constitutional: Appearance: Normal appearance. HENT: Head: Comments: Nares and posterior buccal mucosa erythema, edema, Tender sinuses with palpation Cardiovascular: Rate and Rhythm: Normal rate and regular rhythm. Heart sounds: Normal heart sounds. Pulmonary: Effort: Pulmonary effort is normal. Breath sounds: Normal breath sounds. Musculoskeletal: Cervical back: Normal range of motion and neck supple. Neurological: Mental Status: She is alert. No results found for this or any previous visit (from the past 24 hour(s)). ASSESSMENT: Encounter Diagnoses Name Primary? Acute sinusitis, recurrence not specified, unspecified location Yes ??? Acute bronchitis, unspecified organism PLAN: Orders Placed This Encounter ??? azithromycin (ZITHROMAX) 250 MG tablet Sig: Take 2 tabs today, then 1 tab daily for next 4 days Dispense: 6 tablet Refill: 0 ??? predniSONE (DELTASONE) 20 MG tablet Sig: Take 1 (one) tablet by mouth 2 times daily for 5 days Dispense: 10 tablet Refill: 0 I have spent a total of 20 minutes. Time was spent reviewing medical history, performing physical exam, documenting, counseling/educating, reviewing plan of care, and tx Handout No, to any testing. FORCE MANAGEMENT COORDINATOR documented in this encounter Plan of Treatment Not on file documented as of this encounter Visit Diagnoses Diagnosis Acute sinusitis, recurrence not specified, unspecified location- Primary Acute bronchitis, unspecified organism documented in this encounter Care Teams Utility Worker Relationship Specialty Start Date End Date Johnna Tinajero MD [id number] [address] PCP - General Pediatrics 09/23/17 documented as of this encounter
--- OUTSIDE RECORDS SUMMARY | 2024-08-28 02:11 | XMS_ITS | Data Portability ---
Author Organization ISIDRO Phyllis SCHNEIDER Address [address] [place] [address] Care Team Providers Care Paunch Trimmer Name Role Phone ELIJAHAJAY LANNY Primary Care Provider Unavailab le Assessment No assessment recorded. Plan of Treatment Reminders Order Date Submit Date Provider Last Modified By Organization Details Last Modified Time Details Appointments None recorded. Lab TSH + free T4, serum 2023 SHARRI SHAH, Ayan haile Pelaez, [facility] [address], [place], [address], 09:16:02 CMP, serum or plasma 2023 [facility]RI SHAH, [facility], [facility] [address], [place], [address], 4 09:16:05 CBC w/ auto diff 2023 SHARRI SHAH, [facility], [facility] [address], [place], [address], 4 09:16:07 lipid panel, serum 2023 SHARRI SHAH, Ayan haile Pelaez, [address], [place], [address], 09:16:03 HbA1c (hemoglobin A1c), blood 2023 Ayan BARRAZA [facility], [address], [place], [address], 4 09:16:06 urinalysis, dipstick 2023 [email or web address] In-Office Order, Internal Use Only DO Not Attach Compendium DO Not Attach Compendium, Do Not Delete/merge, [id number] 13:05:17 Referral None recorded. Procedures None recorded. Surgeries None recorded. Imaging None recorded. Medication Orders omeprazole 40 mg capsule,del ayed release 2023 [facility] [address] [place], [address], 4 12:24:12 albuterol sulfate HFA 90 mcg/actuati on aerosol inhaler 2023 [facility] [address] [place], [address], 12:24:11 Breo Ellipta 100 mcg-25 mcg/dose powder for inhalation 2023 [facility] [address] [employer] [facility], [place], [address], 4 12:24:11 Wegovy 0.25 mg/0.5 mL subcutaneou s pen injector 2023 [facility] [address] [employer] [place], [address], 4 13:28:06 ciprofloxac in 500 mg tablet 2023 [facility] [address] [place], [address], 16:14:00 Patient TargetsNo targets recorded. Patient Instructions Encounter Date Encounter Id Patient Instructions Last Modified By Organization Details Last Modified Time 06/30/2024 [id number] A healthy lifestyle: care instructions [email or web address] Not available 06/30/2024 12:24:05 Reason for Referral None Reported. Results Created Date Observation Date Name Description Value Unit Range Abnormal Flag Note LastModifiedBy Organization Detail LastModifiedTime 07/21/2007/22/2024 TSH+F REE T4 TSH 0.859 uIU/m L 0.450- 4.500 Not Available [facility] ([facility]) [address] [place], [address], 07/22/2024 09:16:02 07/21/20 24 07/22/2024 TSH+F REE T4 T4,free(dire ct) 1.15 NG/dL 0.82-1 .77 Not Available [facility] ([facility]) [address] [place], [address], 07/22/2024 09:16:02 07/21/20 24 07/22/2024 LIPID PANEL WITH LDL/H DL RATIO cholesterol, total 200 mg/dL 100-19 9 above high normal Not Available [facility] ([facility]) [address] [place], [address], 07/22/2024 09:16:03 07/21/20 24 07/22/2024 LIPID PANEL WITH LDL/H DL RATIO triglyceride s 84 mg/dL 0-149 Not Available [facility] ([facility]) [address] [place], [address], 07/22/2024 09:16:03 07/21/20 24 07/22/2024 LIPID PANEL WITH LDL/H DL RATIO HDL cholesterol 61 mg/dL >39 Not Available [facility] ([facility]) [address] [place], [address], 07/22/2024 09:16:03 07/21/20 24 07/22/2024 LIPID PANEL WITH LDL/H DL RATIO VLDL cholesterol monae 15 mg/dL 5-40 Not Available [facility] ([facility]) [address] [place], [address], 07/22/2024 09:16:03 07/21/20 24 07/22/2024 LIPID PANEL WITH LDL/H DL RATIO LDL chol calc ([facility]) 124 mg/dL 0-99 above high normal Not Available [facility] ([facility]) [address] [place], [address], 07/22/2024 09:16:03 07/21/20 24 07/22/2024 LIPID PANEL WITH LDL/H DL RATIO LDL/HDL ratio 2.0 ratio 0.0-3. 2 LDL/H DL Ratio Men Women 1/2 Avg.R isk 1.0 1.5 Avg.R isk 3.6 3.2 2X Avg.R isk 6.2 5.0 3X Avg.R isk 8.0 6.1 Not Available [facility] ([facility]) [address] [place], [address], 07/22/2024 09:16:03 07/21/20 24 07/22/2024 COMP. METAB OLIC PANEL (14) glucose 78 mg/dL 70-99 Not Available [facility] ([facility]) [address] [place], [address], 07/22/2024 09:16:05 07/21/20 24 07/22/2024 COMP. METAB OLIC PANEL (14) BUN 8 mg/dL 6-20 Not Available [facility] ([facility]) [address] [place], [address], 07/22/2024 09:16:05 07/21/20 24 07/22/2024 COMP. METAB OLIC PANEL (14) creatinine 0.72 mg/dL 0.57-1 .00 Not Available [facility] ([facility]) [address] [place], [address], 07/22/2024 09:16:05 07/21/20 24 07/22/2024 COMP. METAB OLIC PANEL (14) eGFR 121 mL/mi n/1.7 3 >59 Not Available [facility] ([facility]) [address] [facility], [place], [address], 07/22/2024 09:16:05 07/21/20 24 07/22/2024 COMP. METAB OLIC PANEL (14) BUN/creatini ne ratio 11 9-23 Not Available [facility] ([facility]) [address] [facility], [place], [address], 07/22/2024 09:16:05 07/21/20 24 07/22/2024 COMP. METAB OLIC PANEL (14) sodium 141 mmol/ L 134-14 4 Not Available [facility] ([facility]) [address] [facility], [place], [address], 07/22/2024 09:16:05 07/21/20 24 07/22/2024 COMP. METAB OLIC PANEL (14) potassium 4.6 mmol/ L 3.5-5. 2 Not Available [facility] ([facility]) [address] [facility], [place], [address], 07/22/2024 09:16:05 07/21/20 24 07/22/2024 COMP. METAB OLIC PANEL (14) chloride 105 mmol/ L 96-106 Not Available [facility] ([facility]) [address] [facility] [place], [address], 07/22/2024 09:16:05 07/21/20 24 07/22/2024 COMP. METAB OLIC PANEL (14) carbon dioxide, total 21 mmol/ L 20-29 Not Available [facility] ([facility]) [address] [facility] [place], [address], 07/22/2024 09:16:05 07/21/20 24 07/22/2024 COMP. METAB OLIC PANEL (14) calcium 9.4 mg/dL 8.7-10 .2 Not Available [facility] ([facility]) [address] [place], [address], 07/22/2024 09:16:05 07/21/20 24 07/22/2024 COMP. METAB OLIC PANEL (14) protein, total 7.0 g/dL 6.0-8. 5 Not Available [facility] ([facility]) [address] [place], [address], 07/22/2024 09:16:05 07/21/20 24 07/22/2024 COMP. METAB OLIC PANEL (14) albumin 3.8 g/dL 4.0-5. 0 below low normal Not Available [facility] ([facility]) [address] [place], [address], 07/22/2024 09:16:05 07/21/20 24 07/22/2024 COMP. METAB OLIC PANEL (14) globulin, total 3.2 g/dL 1.5-4. 5 Not Available [facility] ([facility]) [address] [place], [address], 07/22/2024 09:16:05 07/21/20 24 07/22/2024 COMP. METAB OLIC PANEL (14) bilirubin, total 0.3 mg/dL 0.0-1. 2 Not Available [facility] ([facility]) [address] [place], [address], 07/22/2024 09:16:05 07/21/20 24 07/22/2024 COMP. METAB OLIC PANEL (14) alkaline phosphatase 66 IU/L 44-121 Not Available [facility] ([facility]) [address] [place], [address], 07/22/2024 09:16:05 07/21/20 24 07/22/2024 COMP. METAB OLIC PANEL (14) AST (SGOT) 23 IU/L 0-40 Not Available [facility] ([facility]) [address] [place], [address], 07/22/2024 09:16:05 07/21/20 24 07/22/2024 COMP. METAB OLIC PANEL (14) ALT (SGPT) 19 IU/L 0-32 Not Available [facility] ([facility]) [address] [place], [address], 07/22/2024 09:16:05 07/21/20 24 07/22/2024 HEMOG LOBIN A1C hemoglobin A1C 5.8 % 4.8-5. 6 above high normal Predi abete s: 5.7 - 6.4 Diabe meliton: >6.4 Glyce kathy contr ol for adult s with diabe meliton: <7.0 Not Available [facility] ([facility]) [address] [facility], [place], [address], 07/22/2024 09:16:06 07/21/2007/22/2024 CBC WITH DIFFE RENTI AL/PL ATELE T WBC 6.7 x10e3 /uL 3.4-10 .8 Eff ectiv e Decem ophelia 2023 [place]i le 13311 5 WBC will be made* * non-o rdera ble as a stand -david e order code. Not Available [facility] ([facility]) [address] [facility], [place], [address], 07/22/2024 09:16:07 07/21/2007/22/2024 CBC WITH DIFFE RENTI AL/PL ATELE T RBC 4.62 x10e6 /uL 3.77-5 .28 Not Available [facility] ([facility]) [address] [place], [address], 07/22/2024 09:16:07 07/21/20 24 07/22/2024 CBC WITH DIFFE RENTI AL/PL ATELE T hemoglobin 13.2 g/dL 11.1-1 5.9 Not Available [facility] ([facility]) [address] [place], [address], 07/22/2024 09:16:07 07/21/20 24 07/22/2024 CBC WITH DIFFE RENTI AL/PL ATELE T hematocrit 40.9 % 34.0-4 6.6 Not Available [facility] ([facility]) [address] [facility], [place], [address], 07/22/2024 09:16:07 07/21/20 24 07/22/2024 CBC WITH DIFFE RENTI AL/PL ATELE T MCV 89 fL 79-97 Not Available [facility] ([facility]) [address] [facility], [place], [address], 07/22/2024 09:16:07 07/21/2007/22/2024 CBC WITH DIFFE RENTI AL/PL ATELE T MCH 28.6 pg 26.6-3 3.0 Not Available [facility] ([facility]) [address] [facility], [place], [address], 07/22/2024 09:16:07 07/21/20 24 07/22/2024 CBC WITH DIFFE RENTI AL/PL ATELE T MCHC 32.3 g/dL 31.5-3 5.7 Not Available [facility] ([facility]) [address] [place], [address], 07/22/2024 09:16:07 07/21/20 24 07/22/2024 CBC WITH DIFFE RENTI AL/PL ATELE T RDW 12.5 % 11.7-1 5.4 Not Available [facility] ([facility]) [address] [place], [address], 07/22/2024 09:16:07 07/21/20 24 07/22/2024 CBC WITH DIFFE RENTI AL/PL ATELE T platelets 389 x10e3 /uL 150-45 0 Not Available [facility] ([facility]) [address] [place], [address], 07/22/2024 09:16:07 07/21/20 07/22/2024 CBC WITH DIFFE RENTI AL/PL ATELE T neutrophils 51 % notest ab. Not Available [facility] ([facility]) [address] [facility], [place], [address], 07/22/2024 09:16:07 07/21/20 24 07/22/2024 CBC WITH DIFFE RENTI AL/PL ATELE T lymphs 36 % notest ab. Not Available [facility] ([facility]) [address] [facility], [place], [address], 07/22/2024 09:16:07 07/21/20 24 07/22/2024 CBC WITH DIFFE RENTI AL/PL ATELE T monocytes 8 % notest ab. Not Available [facility] ([facility]) [address] [facility], [place], [address], 07/22/2024 09:16:07 07/21/20 24 07/22/2024 CBC WITH DIFFE RENTI AL/PL ATELE T eos 4 % notest ab. Not Available [facility] ([facility]) [address] [facility], [place], [address], 07/22/2024 09:16:07 07/21/20 24 07/22/2024 CBC WITH DIFFE RENTI AL/PL ATELE T basos 1 % notest ab. Not Available [facility] ([facility]) [address] [facility], [place], [address], 07/22/2024 09:16:07 07/21/20 24 07/22/2024 CBC WITH DIFFE RENTI AL/PL ATELE T neutrophils (absolute) 3.4 x10e3 /uL 1.4-7. 0 Not Available [facility] ([facility]) [address] [facility], [place], [address], 07/22/2024 09:16:07 07/21/20 24 07/22/2024 CBC WITH DIFFE RENTI AL/PL ATELE T lymphs (absolute) 2.4 x10e3 /uL 0.7-3. 1 Not Available [facility] ([facility]) [address] [facility], [place], [address], 07/22/2024 09:16:07 07/21/20 24 07/22/2024 CBC WITH DIFFE RENTI AL/PL ATELE T monocytes(ab solute) 0.6 x10e3 /uL 0.1-0. 9 Not Available [facility] ([facility]) [address] [facility], [place], [address], 07/22/2024 09:16:07 07/21/20 24 07/22/2024 CBC WITH DIFFE RENTI AL/PL ATELE T eos (absolute) 0.3 x10e3 /uL 0.0-0. 4 Not Available [facility] ([facility]) [address] [facility], [place], [address], 07/22/2024 09:16:07 07/21/20 24 07/22/2024 CBC WITH DIFFE RENTI AL/PL ATELE T baso (absolute) 0.1 x10e3 /uL 0.0-0. 2 Not Available [facility] ([facility]) [address] [facility], [place], [address], 07/22/2024 09:16:07 07/21/20 24 07/22/2024 CBC WITH DIFFE RENTI AL/PL ATELE T immature granulocytes 0 % notest ab. Not Available [facility] ([facility]) [address] [facility], [place], [address], 07/22/2024 09:16:07 07/21/20 24 07/22/2024 CBC WITH DIFFE RENTI AL/PL ATELE T immature grans (abs) 0.0 x10e3 /uL 0.0-0. 1 Not Available [facility] ([facility]) [address] [facility], [place], [address], 07/22/2024 09:16:07 08/03/20 24 08/03/2024 urina lysis , dipst ick Leukocytes Negati ve Not Available In-Office Order Internal Use Only DO Not Attach Compendium DO Not Attach Compendium, Do Not Delete/merge, [id number] 08/03/2024 16:14:01 08/03/20 24 08/03/2024 urina lysis , dipst ick Nitrite negati ve Not Available In-Office Order Internal Use Only DO Not Attach Compendium DO Not Attach Compendium, Do Not Delete/merge, [id number] 08/03/2024 16:14:01 08/03/20 24 08/03/2024 urina lysis , dipst ick Urobilinogen 1 Not Available In-Of fice Order Internal Use Only DO Not Attach Compendium DO Not Attach Compendium, Do Not Delete/merge, [id number] 08/03/2024 16:14:01 08/03/20 24 08/03/2024 urina lysis , dipst ick Protein Negati ve Not Available In-Office Order Internal Use Only DO Not Attach Compendium DO Not Attach Compendium, Do Not Delete/merge, [id number] 08/03/2024 16:14:01 08/03/20 24 08/03/2024 urina lysis , dipst ick pH 6.0 Not Available In-Office Order Internal Use Only DO Not Attach Compendium DO Not Attach Compendium, Do Not Delete/merge, [id number] 08/03/2024 16:14:01 08/03/20 24 08/03/2024 urina lysis , dipst ick Blood Large Not Available In-Office Order Internal Use Only DO Not Attach Compendium DO Not Attach Compendium, Do Not Delete/merge, [id number] 08/03/2024 16:14:01 08/03/20 24 08/03/2024 urina lysis , dipst ick Specific [place] 1.025 Not Available In-Off ice Order Internal Use Only DO Not Attach Compendium DO Not Attach Compendium, Do Not Delete/merge, [id number] 08/03/2024 16:14:01 08/03/20 24 08/03/2024 urina lysis , dipst ick Ketone Negati ve Not Available In-Office Order Internal Use Only DO Not Attach Compendium DO Not Attach Compendium, Do Not Delete/merge, [id number] 08/03/2024 16:14:01 08/03/20 24 08/03/2024 urina lysis , dipst ick Bilirubin Negati ve Not Available In-Office Order Internal Use Only DO Not Attach Compendium DO Not Attach Compendium, Do Not Delete/merge, [id number] 08/03/2024 16:14:01 08/03/20 24 08/03/2024 urina lysis , dipst ick Glucose Negati ve Not Available In-Office Order Internal Use Only DO Not Attach Compendium DO Not Attach Compendium, Do Not Delete/merge, [id number] 08/03/2024 16:14:01 08/03/20 24 08/03/2024 urina lysis , dipst ick Appearance Slight ly Cloudy Not Available In-Office Order Internal Use Only DO Not Attach Compendium DO Not Attach Compendium, Do Not Delete/merge, [id number] 08/03/2024 16:14:01 08/03/20 24 08/03/2024 urina lysis , dipst ick Color Yellow Not Available In-Office Order Internal Use Only DO Not Attach Compendium DO Not Attach Compendium, Do Not Delete/merge, [id number] 08/03/2024 16:14:01 08/21/20 24 08/21/2024 XR, chest , 2 view No observ ation record ed. [email or web address] [facility] [address], [place], [address], 08/22/2024 08:28:25 Result Notes None recorded. Problems Name Problem SNOMED Code Status Onset Date Resolution Date Notes Provider Name and Address Organization Details Recorded Time Body mass index 40+ - severely obese 331088740 Active 2023 Germán Houser MA null, [place] - [facility] 4 11:51:21 Asthma 588000822 Active 2023 ANAIS Taylor Attn: Parag dumont,[address] [facility], [place], [address], [place] [facility] 4 12:10:09 Long-term drug therapy Active 2023 ANAIS Taylor Attn: Accountronn g,[address], [place], [address], [place] [facility] - [facility] 4 17:33:50 Obesity 073509718 Active 2023 ANAIS Taylor Attn: Accountin g,[address], [place], [address], [place] [facility] - [facility] 4 17:34:15 Positive screening for depression on PHQ-9 (Patient Health Questionnai re 9) 8289595658712 00 Active 2023 ANAIS Taylor Attn: Accountronn g,[address], [place], [address], [place] [facility] - [facility] 4 17:34:44 Problem Notes None recorded. Procedures Surgical History Date Name Laterality Status Provider Name and Address Organization Details Recorded Time Cholecystectomy completed Germán Houser MA [facility] 06/30/2024 11:53:48 Imaging Results Imaging Date Name Status LastModified by Organiz ation Details LastModified Time 08/21/2024 XR, chest, 2 view completed [address] [facility], [place], [address], 08/22/2024 08:28:25 Procedure Notes None recorded. Medical Equipment None Reported. Allergies Allergen ID Allergen Name Allergen Category Reaction Reaction Severity Criticality Documentation Date Start Date Code Code System Note Provider Name and Address Organization Details Recorded Time 000896 Medicinal product containin g penicilli n and acting as antibacte rial agent (product) medicatio n rash mild unabletoasse ss 04/29/2024 16473 05 SNOMED SUNNY Caceres, [facility] 4 17:49:27 Medications Name Sig Start Date Stop [...] and Address Organization Details Last Updated DateTime 108886. 42 g 45.9 kg/m2 160.02 cm 18 /min 99 % 99 % 84 /min 126 mm[Hg] 82 mm[Hg] Germán Houser MA [facility] 11:52:56 Date Recorded Systolic blood pressure Diastolic blood pressure Provider Name and Address Organization Details Last Updated DateTime 06/30/2024 120 mm[Hg] 88 mm[Hg] ANAIS Taylor Attn: Accounting,[address] [place], [address], [facility] 06/30/2024 12:24:31 Date Recorded Body height Provider Name an d Address Organization Details Last Updated DateTime 08/03/2024 160.02 cm Yuliana Ashley [facility] 08/03/20 15:49:33 Date Recorded Body mass index (BMI) Body weight Respiratory rate Oxygen saturation Oxygen saturation in Arterial blood by Pulse oximetry Heart rate Systolic blood pressure Diastolic blood pressure Provider Name and Address Organization Details Last Updated DateTime 4 44.3 kg/m2 541929. 09 g 18 /min 100 % 100 % 88 /min 126 mm[Hg] 82 mm[Hg] Germán Houser MA [facility] 4 15:56:00 Date Recorded Systolic blood pressure Diastolic blood pressure Provider Name and Address Organization Details Last Updated DateTime 08/03/2024 130 mm[Hg] 80 mm[Hg] ANAIS Taylor Attn: Accounting,[address] [facility], [place], [address], [facility] 08/03/2024 16:14:18 Social History Question Answer Notes LastModified by Organizat ion Details LastModified Time Tobacco Smoking Status Never Smoker Germán Houser MA [facility], [facility] 06/30/2024 11:54:06 What Is Your Level Of [...] Functional Status Question Answer Note LastModified by [employer] ion Details LastModified Time Are you able to care for yourself? Yes Information not available 06/30/2024 What is your exercise level? Occasional Information not available 06/30/2024 Mental Status None recorded. Family History Nothing Reported. Medical History Condition Response Coronary Artery Disease N Other N Atrial Fibrillation N High Blood Pressure N Thyroid Problems N Kidney or Bladder Problems N Depression N COPD N Blood Clots N GI Problems Y Have you had a mammogram in the last yea r? N Skin Problems N Anemia N Heart Attack (DE) N Diabetes N Anxiety Disorder N Muscle, Joint, or Bone Problems N Seizures/Epilepsy N Have you had a colonoscopy in the last 1 0 years? N Acid Reflux (GERD) N Cancer N Stroke N Allergies Y Asthma Y Have you had a PSA blood [...] Immunizations Vaccine Type Date Status Note Provider Sumeet rico and Address Organization Details Recorded Time meningococcal B, recombinant 0 completed Germán Houser [place] null, [place] [facility] 06/30/2024 11:50:10 meningococcal B, recombinant 8 completed Germán Hous[place] [facility] 06/30/2024 11:50:10 IPV 3 completed Takinocencioe Mik, [place], [place] [facility] 06/30/2024 11:50:10 IPV 6 completed Takinocencioe Mik, [place] [facility] 06/30/2024 11:50:10 IPV 2 completed Takorie Mik, [place] [facility] 06/30/2024 11:50:10 IPV 2 completed Takinocencioe Mik, [place] [facility] 06/30/2024 11:50:10 Influenza, MDCK, quadrivalent, PF 0 completed Taksergey Houser, [place], [place] [facility] 06/30/2024 11:50:10 MMR 6 completed Taksergey Houser, [place] [facility] 06/30/2024 11:50:10 MMR 3 completed Germán Houser, [place] [facility] 06/30/2024 11:50:10 COVID-19, mRNA, LNP-S, PF, 30 mcg/0.3 mL dose 1 completed Takorie Mik, [place] [facility] 06/30/2024 11:50:10 COVID-19, mRNA, LNP-S, PF, 30 mcg/0.3 mL dose 1 completed Takinocencioe Mik, [place] [facility] 06/30/2024 11:50:10 COVID-19, mRNA, LNP-S, PF, 30 mcg/0.3 mL dose 1 completed Takinocencioe Mik, [place] [facility] 06/30/2024 11:50:10 Tdap 2 completed Taksergey Houser, [place] [facility] 06/30/2024 11:50:10 Tdap 3 completed Germán Hous[place], [place] [facility] 06/30/2024 11:50:10 varicella 8 completed Taksergey Houser, [place] [facility] 06/30/2024 11:50:10 [...] [place] [facility] 06/30/2024 11:50:10 Novel hrsbxuidk-R2S1-54 9 completed Germán H[place] [facility] 06/30/2024 11:50:10 meningococcal MCV4P 8 completed Germán H[place] [facility] 06/30/2024 11:50:10 Influenza, split virus, quadrivalent, PF 9 completed Germán [place] [facility] 06/30/2024 11:50:10 Influenza, split virus, quadrivalent, PF 2 completed Germán [place] [facility] 06/30/2024 11:50:10 Influenza, split virus, quadrivalent, PF 8 completed Germán [place] [facility] 06/30/2024 11:50:10 Influenza, split virus, quadrivalent, PF 1 completed Germán [place] [facility] 06/30/2024 11:50:10 Hep A, unspecified formulation 8 completed Germán H[place] [facility] 06/30/2024 11:50:10 Hep A, unspecified formulation 7 completed Germán H[place] [facility] 06/30/2024 11:50:10 Past Encounters Encounter ID Performer Location Encounter Start Date Encounter Closed Date Diagnosis/Indication Diagnosis SNOMED-CT Code Diagnosis ICD10 Code [id number] ANAIS Taylor [facility] [employer] [address] [place] [address] 06/30/2024 11:15:48 06/30/2024 12:31:56 Body mass index 40+ - severely obese 178287483 Z68.42 Obesity 959367640 E66.9 Adult heal th examination 807483754 Z00.00 Asthma 077426086 J45.90 9 Cholesterol screening 27 3568508 Z13.220 Diabetes m ellitus screening 055412103 Z13.1 Long-term drug therapy 664671332 Z79.891 Thyroid di sorder screening 790921835 Z13.29 Upper abdominal pain 831 47788 R10.10 Renewal of prescription 954849356 Z76.0 Positive s creening for depression on PHQ-9 (Patient Health Questionnaire 9) 4929491104 79166 Z13.31 [id number] ANAIS Taylor [facility] [employer] [address] [place] [address] 08/03/2024 15:30:47 08/15/2024 16:02:06 Left flank pain 461165108 R10.9 Dizziness 004571434 R42 Nausea 281684586 R11.0 Health Concerns Section Related Observation LastModified by Organization Detai ls LastModified Time None Recorded Concern Status LastModified by Organization Details LastModified Time None Recorded Advance Directives Directive None Recorded Payers Encounter Date Sequence Insurance Name Policy Number Policy Allen Covered Member ID Allen Member ID Guarantor Name 06/30/2024 1 [facility] [id number] Nina Donitaems [id number] Nina Donitaems 08/03/2024 1 [employer]: ([place]) [phone] Nina Thiems 75 Nina Doretha Notes Date Note Type Note Provider Name [...] any weight. ANAIS Taylor Attn: Accounting,[address] [facility], [place], [address], [facility] 06/30/2024 17:35:16 08/03/2024 text/html DizzinessReporte d bypatient.Notes:dizzy, light headed, room spinning. pt sat down and got water and nutrition and started feeling better. her heart rate was 140's when she looked at her watch. she had a protein bar about 30 min. prior. no blood sugar was checked. she has been hydrating better than normal. had a full bottle of water prior. She also reports that she has a little bit of left sided mid back pain. She does continue to have nausea. No syncope. No chest pain shortness of breath or diarrhea. ANAIS Taylor Attn: Accounting,[address] [facility], [place], [address], [facility] 08/25/2024 13:06:32 OBGyn Episode No OBEpisode recorded.
--- OUTSIDE RECORDS SUMMARY | 2024-08-28 02:11 | XMS_ITS | Encounter Summary ---
Author Organization [facility] Address [address] [place] [address] Care Team Providers Care Software Controls Engineer Name Role Phone Johnna Tinajero MD Primary Care Provider + Encounter Details Date Type Department Care Team (Latest Contact Info) Description 08/21/2021 Travel Social History Tobacco Use Types Packs/Day [...] COVID-19? No / Unsure 08/21/2021 1:54 PM SUEDE CLEANER documented as of this encounter Plan of Treatment Not on file documented as of this encounter Visit Diagnoses Not on filedocumented in this encounter Care Teams Software Controls Engineer Relationship Specialty Start Date End Date Johnna Tinajero MD [address] [address] PCP - General Pediatrics 09/23/17 documented as of this encounter
--- OUTSIDE RECORDS SUMMARY | 2024-08-28 02:11 | XMS_ITS | Encounter Summary ---
Author Organization [facility] Address [address] [place] [address] Care Team Providers Care Grain Scooper Name Role Phone Johnna Tinajero MD Primary Care Provider + Reason for Visit * Reason Onset Date Comments Follow-up 08/23/2021 Encounter Details Date Type Department Care Team (Late st Contact Info) Description 08/23/2021 Telephone [facility] AT [address] [phone] Erna Schmidt CNA Follow-up Social History Tobacco Use Types Packs/Day [...] COVID-19? No / Unsure 08/21/2021 1:54 PM ORE BRIDGE OPERATOR documented as of this encounter Miscellaneous Notes * Telephone Encounter - Erna Schmidt MA - 08/23/2021 3:09 PM ORE BRIDGE OPERATOR Courtesy follow-up phone call made to patient. Message left advising patient to call [facility] [phone] if they have any questions or concerns. Erna Schmidt MA 08/23/2021 3:10 PM BRIDGE OPERATOR documented in this encounter Plan of Treatment Not on file documented as of this encounter Visit Diagnoses Not on filedocumented in this encounter Care Teams Grain Scooper Relationship Specialty Start Date End Date Johnna Tinajero MD [address] [address] PCP - General Pediatrics 09/23/17 documented as of this encounter
--- OUTSIDE RECORDS SUMMARY | 2024-08-28 02:12 | XMS_ITS | Encounter Summary ---
Author Organization [facility] Address [address] [place] [phone] Phone Care Team Providers Care Asphalt Machine Operator Name Role Phone Johnna Tinajero MD Primary Care Provider + Johnna Tinajero MD Unavailable [phone] Luciano Edwards MD Unavailable [phone] Encounter Details Date Type Department Care Team (Late st Contact Info) Description 08/01/2021 Telephone [facility] [address] [facility] [address] [place] [address] Johnna Tinajero MD [address] [place] [address] [address] [place] [address] Social History Tobacco Use Types Packs/Day Years Used Date Smoking Tobacco: Never Alcohol Use Standard Drinks/Week Comments Never 0 (1 standard drink = 0.6 oz pur e alcohol) AUDIT-C Answer Date Recorded Q1: How often do you have a drink containing alc ohol? Never 11/03/2019 Average Number of Drinks Not on file 020 Frequency of Binge Drinking Not on file 12/2019 PHQ-2 Answer Date Recorded PHQ-2 Score 4 06/28/2019 Comments No Sex and Gender Information Value Date Recorded Sex Assigned at Not on file Legal Sex 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 TRIPE WASHER Gender Identity Not on file Sexual Orientation Not on file documented as of this encounter Miscellaneous Notes * Telephone Encounter - Davina Prater RN - 08/02/2021 9:17 AM TRIPE WASHER PC from mom with patient update. Mom drove to [place] last night to see how Nina was feeling. Mom reports that Nina is no longer complaining of headache, heart palpitations, facial flushing, feeling lightheaded, or dizzy. Mom concerned because Nina complaining of abdominal bloating now. Concerned because Nina has not experienced any abdominal bloating since gallbladder surgery on 02/01/2021.Mom worried this is related to her gallbladder. Mom texting Nina during telephone call, Nina reports she is not constipated and denies diarrhea. Passing gas. Abdomen is somewhat tender to touch butmild. LMP 3 weeks ago. Nina feeling well enough to go to class this morning. Asking for PCP's thoughts/recommendations. Advised mom I would CB to discuss. Reviewed situation with PCP. Patient had Cholecystectomy- therefore unsure how bloating would be directly related to gallbladder. There are many potential causes of symptoms- GI illness, STI, , PMS symptoms, something patient ate, stress, anxiety, etc. Depends on how bothersome symptoms are to patient. If she's in severe discomfort, not able to eat or drink, unable to go to class she should be evaluated again. If symptoms are mild and manageable it is okay to monitor if patient is comfortable doing so. PC to mom, reviewed recommendations above. Advised to CB for new/worsening sxs, questions, concerns, needs. Reiterated the difficulty of recommending an appropriate plan of care since PCP has not evaluated patient. If Nina is concerned with how she is feeling she should be evaluated again. Mom verbalizes understanding and agrees with plan of care. E WASHER * Telephone Encounter - Davina Prater RN - 08/01/2021 1:03 PM TRIPE WASHER PC to mom, reviewed PCP response below. Mom states Nina is not . Verbalizes understanding.Will discuss recommendation with Nina, if symptoms continue will encourage her to be evaluated again. ----- Message from Johnna Tinajero MD sent at 08/01/2021 12:41 PM TRIPE WASHER ----- Contact: Symptoms could be related to the morning after pill, anxiety about possibly getting , or could be due to (is she?) Or could be early illness symptoms or something else. Agree with your recommendations. ----- Message ----- From: Davina Prater RN Sent: 08/01/2021 12:19 PM TRIPE WASHER To: Johnna Tinajero MD PC from mom. States patient went to ED yesterday 07/31 (In [place], [place] where she attends [employer]) due to facial flushing, felt lightheaded and dizzy, heart palpitations, and headache that started yesterday. Permom based on report patient gave her- ER ran labs and EKG that were all normal. Gave IV bolus and she felt better. Concerned because patient's BP was high for the duration of time in ED. At admissionit was 135/92, 2 hours later 172/117, and around time of discharge it was 145/73. Per mom- ED did not express concern for BP. Today, patient still complaining of palpitations and feeling anxious. Headache, facial flushing, and feeling lightheaded/dizzy resolved. Did not go to classes this morning. Prior to symptoms, Patient returned to college on Thursday after week long break at home for Thanksgiving. Mom states patient took the morning after pill (Plan B) while at home (unsure if related to symptoms). Mom asking for your thoughts on patient's symptoms. I explained to mom that I would review with andCB to discuss. However, if patient is having continued symptoms, she needs to be evaluated again. Explained this is a difficult situation because patient is reporting information to mom and we did not see/evaluate her. E WASHER E WASHER documented in this encounter Plan of Treatment Not on file documented as of this encounter Visit Diagnoses Not on filedocumented in this encounter Care Teams Asphalt Machine Operator Relationship Specialty Start Date End Date Johnna Tinajero MD [address] [address] PCP - General Pediatrics 07/19/19 01/26/23 Johnna Tinajero MD [address] [address] 07/19/19 Luciano Edwards MD [address] [address] Consulting Physician General Surgery 02/01/21 documented as of this encounter
--- OUTSIDE RECORDS SUMMARY | 2024-08-28 02:12 | XMS_ITS | Encounter Summary ---
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 Name Role Phone Johnna Tinajero MD Primary Care Provider + Johnna Tinajero MD Unavailable [phone] Luciano Edwards MD Unavailable [phone] Tyra Adam MD Unavailable [phone] Reason for Visit * Reason Comments Abdominal Pain Vomiting Nausea * Auth/Cert (Routine) Specialty Diagnoses / Procedures Referred By Contac t Referred To Contact Diagnoses RLQ abdominal pain Intractable abdominal pain Procedures na Referral ID Status Reason Start Date Expiration Date Visits Re quested Visits Authorized [id number] 1 1 Encounter Details Date Type Department Care Team (Latest Contact Info) Description 01/12/2023 10:36 PM CDT - 01/15/2023 6:09 PM CDT Hospital Encounter [facility] [address] [place] [address] Yariel Dennis MD [address] [address] Alberto Johnson MD [address] [place] [address] Shawn Blum DO [address] [place] [address] RLQ abdominal pain (Primary Dx); Intractable abdominal pain Discharge Disposition: Discharge to home or self care Social History Tobacco Use Types Packs/Day Years [...] 01/13/2023 How often do you attend chur or worship services? More than 4 times per year 01/13/2023 Do you belong to any clubs o r organizations such as mandaen groups, unions, fraternal or athletic groups, or [...] place to sleep or slept in a residential (including now)? No 01/13/2023 Personal Safety Answer Date Recorded Have you ever been in or are you currently in a harmful physical or emotional relationship or is someone making you feel afraid or unsafe? 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 Gender Identity Not on file Sexual Orientation [...] Mass Index 37.22 01/13/2023 2:16 AM CDT documented in this encounter Discharge Summaries * Shawn Blum DO - 01/15/2023 11:08 AM CDT Inpatient Discharge Summary BRIEF OVERVIEW Patient Name - Nina Coyne Patient Age - 22 yrs Patient - [id number] [facility] - [id number] Document Creation Date: 01/15/2023 Admitting Provider, : Alberto Johnson MD Discharge Provider, : Shawn Blmu DO Primary Care Physician at Discharge: Johnna Tinajero MD [phone] Treatment Team: Consulting Physician: Romie Pradhan DO Admission Date: 01/12/2023 Discharge Date/time: 01/15/2023 Admission Location: [facility] LOS - LOS: 2 days DETAILS OF HOSPITAL STAY Hospital Problems/Diagnoses Principal Problem: RLQ abdominal pain Active Problems: Chronic nausea Mixed obsessional thoughts and acts Reason for Hospitalization: RLQ Pain Hospital Course: 22 YO F with PMH OCD presenting with abdominal pain. She has had intermittent abdominal pain for several months that has worsened and become more persistent over the last 1.5 months. The pain is localized to the RLQ. It waxes and wanes but has been at a constant 7-8 over the last few days. She has been nauseous and has had a poor appetite as a result of this pain. She follows with Dr. Adam for GI. She had a colonoscopy with biopsy 01/02/23 ago which was reportedly negative. She has had 2 bloody stools prior to the C-scope and since the procedure has had a few episodes of dark tarry stools. She contacted her GI doctor who recommended going to the ED for further care. 01/14/23: Nina has ongoing abdominal pain and nausea. She and her mom report that she's been fairly miserable for months now. Zofran hasn't been helping much so we'll try Compazine today. Her CT enterography and Meckel scan yesterday were negative. She swallowed a capsule endoscopy this morning. 01/15/23 Nausea is improved with Compazine. At this time we are still awaiting results of her VCE, but she will be discharged home this afternoon with outpatient follow up with Dr. Adam. Discharge Details Physical Exam at Discharge: Discharge Condition: stable Pulse: 94 Resp: 16 BP: 112/59 Temp: 37 ??C (98.6 ??F) Weight: 95.3 kg (210 lb 1.6 oz) Pertinent Exam Findings at Discharge: General: Patient in no acute distress, alert and oriented x 3 HEENT: Normocephalic, atraumatic, sclera non-icteric Lungs: Normal respiratory effort, on room air Abd: soft, non-tender, non-distended Skin: No rash Extremities: No edema Neuro: No focal motor sensory deficits Discharge Disposition: Code Status at Discharge: Full Code Active Issues & Recommended Plan for Follow-up: As above. With Dr. Adam Time Spent in Discharge Process: I have spent 35 minutes on discharge planning activities. Time spent was on Coordination of care, Counselling with patient/family, and Other provider communication Test Results Pending at Discharge (If Blank, None Found): Operative Procedures Performed (If Blank, None Found): Procedure(s): CAPSULE ENDOSCOPY Other Procedures & Diagnostic Tests: NM Bowel Imaging (Meckels) Result Date: 01/13/2023 EXAM: Nuclear medicine bowel imaging (Meckel's) HISTORY: Right lower quadrant pain and melena RADIOPHARMACEUTICAL: 10.7 mCi pertechnetate IV left arm COMPARISON: CT abdomen and pelvis 12/14/2022, CT enterography 01/13/2023 FINDINGS: Radionuclide angiogram overlying the pelvis as well as imaging over the abdomen and pelvis was performed up to 1 hour after injection of the radial pharmaceutical. Additional images were obtained after voiding. There is no abnormal activity in the in the abdomen or pelvis to suggest Meckel's diverticulum. Negative Electronically signed by: Wendy Rosales M.D. CT Abdomen and Pelvis Enterography W Contrast Result Date: 01/13/2023 CT enterography HISTORY: Right lower quadrant pain. TECHNIQUE: Transaxial helical imaging was performed through the abdomen and pelvis during intravenous administration 120 mL of Optiray 350. Citra Select was utilized for oral contrast as well. 3 mm images were reconstructed. FINDINGS: Comparison is made to the previous study of 12/14/2022. The lung bases are clear. The heart size is normal. The patient is status post cholecystectomy. The liver, spleen, adrenal glands, pancreas, and kidneys areunremarkable. The uterus and ovaries are unremarkable for age. Mild bladder wall thickening likely reflects incomplete distention. Cystitis could be considered in the appropriate clinical setting. The bladder is otherwise unremarkable. The vascular structures are normal. There are no enlarged lymphnodes in the abdomen/pelvis. The bones are unremarkable. There is a stable tiny fat-containing ventral hernia adjacent to the umbilicus. The bowel is unremarkable without wall thickening, increased enhancement, or adjacent inflammation. A normal appendix is identified without adjacent inflammation.Appendicitis is excluded. 1. Status post cholecystectomy. 2. Slight bladder wall thickening, likely reflecting incomplete distention. Cystitis could be considered in the appropriate clinical setting. 3. Tiny fat-containing ventral hernia just to the right of the umbilicus, stable. 4. Otherwise, unremarkable examination as de scribed. The bowel is normal in appearance. Electronically signed by: Romie Carbajal M.D. Recent Labs: Recent Labs Lab Units 01/13/2343201/12/237 WBC K/cumm 6.5 6.9 HEMOGLOBIN g/dL 11.9 13.0 HEMATOCRIT % 37.3 40.0 PLATELETS K/cumm 299 322 Recent Labs Lab Units 01/13/2343201/12/237 WBC K/cumm 6.5 6.9 HEMOGLOBIN g/dL 11.9 13.0 HEMATOCRIT % 37.3 40.0 PLATELETS K/cumm 299 322 NEUTROS PCT % 38.2 42.6 LYMPHS PCT % 47.0 41.8 MONOS PCT % 8.9 9.2 EOS PCT % 4.5 5.1 Recent Labs Lab Units 01/13/2343201/12/23 2247 SODIUM mmol/L 140 140 POTASSIUM PLASMA mmol/L 3.6 4.3 CHLORIDE mmol/L 110 109 CO2 mmol/L 21* 21* BUN SERUM mg/dL 10 9 CREATININE mg/dL 0.75 0.79 [id number] mL/min/1.73 m2 117 110 GLUCOSE mg/dL 86 98 CALCIUM mg/dL 8.7 9.3 ALBUMIN g/dL 3.5 3.9 Recent Labs Lab Units 01/13/2343201/12/23 2247 SODIUM mmol/L 140 140 POTASSIUM PLASMA mmol/L 3.6 4.3 CHLORIDE mmol/L 110 109 CO2 mmol/L 21* 21* ANIONGAP mmol/L 9 10 GLUCOSE mg/dL 86 98 BUN SERUM mg/dL 10 9 CREATININE mg/dL 0.75 0.79 CALCIUM mg/dL 8.7 9.3 ALBUMIN g/dL 3.5 3.9 ALK PHOS Units/L 41 48 ALT Units/L 18 23 AST Units/L 20 26 BILIRUBIN TOTAL mg/dL 0.2 <0.2 Recent Labs Lab Units 01/13/23 0433 01/12/23 2247 ALK PHOS Units/L 41 48 BILIRUBIN TOTAL mg/dL 0.2 <0.2 TOTAL PROTEIN g/dL 6.1* 6.9 ALT Units/L 18 23 AST Units/L 20 26 Recent Labs Lab Units 01/13/23 0433 MAGNESIUM mg/dL 1.6 Lab Results Component Value Date GLUCOSE 86 01/13/2023 GLUCOSE 98 01/12/2023 GLUCOSE 111 12/14/2022 Discharge Orders General Precautions: Nutritional Status and in-house recommendations: Dietary Orders (From admission, onward) Start Ordered 01/14/231909 Adult Diet Regular Diet effective now Question: ([facility]) Diet type Answer: Regular 01/14/231908 Allergies: Dog dander and Penicillins Discharge Medications: Your medication list START taking these medications Instructions Last Dose Given Next Dose Due prochlorperazine 5 mg tablet Commonly known as: COMPAZINE 5 mg, oral, Every 6 hours PRN CONTINUE taking these medications Instructions Last Dose Given Next Dose Due albuterol HFA 90 mcg/actuation inhaler Commonly known as: PROVENTIL HFA,VENTOLIN HFA,PROAIR HFA 2 puffs, inhalation, Every 6 hours PRN (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 Do not swallow. norgestimate-ethinyl estradioL 0.18/0.215/0.25 mg-25 mcg per tablet Commonly known as: ORTHO TRI-CYCLEN LO 1 tablet, oral, Daily ondansetron ODT 4 mg disintegrating tablet Commonly known as: ZOFRAN-ODT 4 mg, oral, Every 6 hours PRN sertraline 100 mg tablet Commonly known as: ZOLOFT 100 mg, oral, Daily Where to Get Your Medications These medications were sent to [facility] [place], [place] - [address] [facility] [address] [facility] [address] prochlorperazine 5 mg tablet Outpatient Follow-Up: Contact Information for Follow-ups Tyra Adam MD Specialty: Gastroenterology, Internal Medicine Relationship: Consulting Physician [id number] [facility] [address] Next Steps: Follow up Instructions: Call provider for an appointment to follow up within 1 week Questions: Instructions for follow-up (appointment date and time): Call provider for an appointment to follow up within 1 week To provider: TYRA ADAM Please schedule an appointment with the following provider(s): [place] [address] [facility] [address] Call provider for an appointment to follow up within 1 week Anticoagulation Indication: INR: No results found for requested labs within last 30 days. Warfarin Administrations (last 168 hours) None Oxygen Status No data found. Wound Care Instructions Active LDAs (If Blank, None Found): Peripheral IV 01/12/23 20 G Left Antecubital (Active) Placement Date/Time: 01/12/232346 Size (Gauge): 20 G Location Orientation: Left Location: Antecubital END OF ORDERS Patient Emergency Contact: Primary Emergency Contact: Vicki Coyne Immunization Status at Discharge Immunization History Administered Date(s) Administered DTaP 2002, 2002, 2002, 02/24/2003, 02/23/2006 HPV9 02/22/2015, 12/06/2015, 06/09/2016 Hep A, Unspecified 03/30/2007, 02/01/2008 Hep B Vaccine 2002, 2002, 2002 HiB 2002, 2002, 2002, 02/24/2003 IPV 2002, 2002, 2002, 02/23/2006 Influenza, Quadrivalent, Cell Culture-based MDCK, Preservative Free, Antibiotic Free, Vkxwxnixmsszu98/22/2020 Influenza, Quadrivalent, Split, Preservative Free, Intramuscular 06/09/2016, 06/08/2017, 07/21/2018, 06/22/2019 Influenza, Trivalent, Intramuscular 06/29/2013, 06/05/2014, 07/03/2015 Influenza, Trivalent, Preservative Free, Intramuscular 06/25/2006, 07/11/2010, 06/17/2011, 05/22/2012, 07/04/2013 Influenza, Unspecified 06/22/2019, 07/31/2020, 07/23/2021 MMR 02/24/2003, 02/23/2006 Meningococcal B, Recombinant (Trumenba) 08/17/2018, 09/02/2019 Meningococcal MCV4P (Menactra) 09/12/2013, 08/17/2018 PPD TEST 02/23/2006 Pfizer SARS-CoV-2 Monovalent Vaccination (12+ Yrs) PURPLE 11/01/2020, 11/24/2020, 07/23/2021 Pneumococcal Conjugate, Unspecified 2002, 2002, 02/24/2003 Tdap 03/25/2013, 10/01/2021 Varicella 02/24/2003, 02/01/2008 Shawn Blum DO documented in this encounter Medications at Time of Discharge albuterol HFA (PROVENTIL HFA,VENTOLIN HFA,PROAIR HFA) 90 mcg/actuation inhaler Inhale 2 puffs every 6 (six) hours as needed for wheezing or shortness of breath cetirizine (ZyrTEC) 10 mg tablet Take 10 mg by mouth daily doxepin (SINEquan) 25 mg capsule Take 2 capsules (50 mg total) by mouth nightly fluticasone furoate-vilanteroL (BREO ELLIPTA) 100-25 mcg/dose diskus inhaler Inhale 1 puff once daily Rinse mouth with water after use. Do not swallow. norgestimate-ethinyl estradiol (ORTHO TRI-CYCLEN LO) 0.18/0.215/0.25 mg-25 mcg per tablet Take 1 tablet by mouth daily 0 08/17/2019 ondansetron ODT (ZOFRAN-ODT) 4 mg disintegrating tablet Take 1 tablet (4 mg total) by mouth every 6 (six) hours as needed for nausea or vomiting prochlorperazine (COMPAZINE) 5 mg tablet Take 1 tablet (5 mg total) by mouth every 6 (six) hours as needed for nausea or vomiting 30 tablet 1 01/15/2023 sertraline (ZOLOFT) 100 mg tablet Take 1 tablet (100 mg total) by mouth daily documented as of this encounter Ordered Prescriptions Prescription Sig Dispense Quantity Refills Last Filled Start Date End Date prochlorperazine (COMPAZINE) 5 mg tablet Take 1 tablet (5 mg total) by mouth every 6 (six) hours as needed for nausea or vomiting 30 tablet 1 01/15/2023 documented in this encounter Discharge Disposition Disposition Code Departure Means Destination Comment s Discharge to home or self care documented in this encounter Progress Notes * Nehemiah Wiley, ANAIS - 01/15/2023 9:32 AM CDT Gastroenterology Progress GI Problems: BRBPR Abdominal pain Interval History: Patient seen: Feeling a little better today but still with RLQ pain; has not had pain med today and level 6/10. Eating is only thing that provokes pain. No recurrence of BRBPR or black stool. Labs look good. 01/13 CT enterography unremarkable 01/13 Meckle scan neg 01/14 She swallowed VCE - pending Vitals: 01/14/23 1110 01/14/23 1500 01/14/23 1956 01/15/23 0040 BP: 110/68 118/59 112/59 BP Location: Right arm Right arm Right arm Patient Position: Lying Pulse: 78 74 94 Resp: Temp: 36.6 ??C (97.9 ??F) 36.9 ??C (98.5 ??F) 37 ??C (98.6 ??F) TempSrc: Oral Oral Oral SpO2: 99% 100% 99% 95% Weight: Height: Physical Exam Vitals reviewed. HENT: Head: Normocephalic. Cardiovascular: Rate and Rhythm: Normal rate. Pulmonary: Effort: Pulmonary effort is normal. Abdominal: General: Abdomen is flat. Palpations: Abdomen is soft. Tenderness: There is abdominal tenderness in the right lower quadrant. Neurological: Mental Status: She is alert. Lab/Radiology/Diagnostic Review: Recent Labs Lab Units 01/13/23 0433 01/12/23 2247 WBC K/cumm 6.5 6.9 HEMOGLOBIN g/dL 11.9 13.0 HEMATOCRIT % 37.3 40.0 PLATELETS K/cumm 299 322 Recent Labs Lab Units 01/13/23 0433 WBC K/cumm 6.5 HEMOGLOBIN g/dL 11.9 HEMATOCRIT % 37.3 PLATELETS K/cumm 299 NEUTROS PCT % 38.2 LYMPHS PCT % 47.0 MONOS PCT % 8.9 EOS PCT % 4.5 Recent Labs Lab Units 01/13/23 0433 01/12/23 2247 SODIUM mmol/L 140 140 POTASSIUM PLASMA mmol/L 3.6 4.3 BUN SERUM mg/dL 10 9 CREATININE mg/dL 0.75 0.79 CALCIUM mg/dL 8.7 9.3 ALBUMIN g/dL 3.5 3.9 ALK PHOS Units/L 41 48 ALT Units/L 18 23 AST Units/L 20 26 BILIRUBIN TOTAL mg/dL 0.2 <0.2 @ NM Bowel [facility] Result Date: 01/13/2023 Negative Electronically signed by: Wendy Rosales M.D. CT Abdomen and Pelvis Enterography W Contrast Result Date: 01/13/2023 1. Status post cholecystectomy. 2. Slight bladder wall thickening, likely reflecting incomplete distention. Cystitis could be considered in the appropriate clinical setting. 3. Tiny fat-containing ventral hernia just to the right of the umbilicus, stable. 4. Otherwise, unremarkable examination as de scribed. The bowel is normal in appearance. Electronically signed by: Romie Carbajal M.D. ASSESSMENT/PLAN: 1. RLQ pain and blood in stool: Colonoscopy 01/02/23 unable to get to TI, otherwise non specific erythema. 01/13 CT enterography normal bowel. VCE completed, pending. 01/13 Meckle scan neg Plan: Await VCE report. ANAIS Blue Cosigned by Joo Napier MD at 01/15/2023 2:25 PM CDT Associated attestation - Joo Napier MD - 01/15/2023 2:25 PM CDT I agree with findings/assessment/plan in PA/LOCKER ATTENDANT note with the following caveats: RLQ pain and blood in stool--colonoscopy and imaging results noted Awaiting VCE report read Please call with questions/concerns,will follow Joo Napier MD * Shawn Blum, - 01/14/2023 12:05 PM CDT General Medicine Daily Progress Note HPI from H&P by Dr. Johnson: 22 YO F with PMH OCD presenting with abdominal pain. She has had intermittent abdominal pain for several months that has worsened and become more persistent over the last 1.5 months. The pain is localized to the RLQ. It waxes and wanes but has been at a constant 7-8 over the last few days. She has been nauseous and has had a poor appetite as a result of this pain. She follows with Dr. Adam for GI. She had a colonoscopy with biopsy 01/02/23 ago which was reportedly negative. She has had 2 bloody stools prior to the C-scope and since the procedure has had a few episodes of dark tarry stools. She contacted her GI doctor who recommended going to the ED for further care. 01/14/23: Nina has ongoing abdominal pain and nausea. She and her mom report that she's been fairly miserable for months now. Zofran hasn't been helping much so we'll try Compazine today. Her CT enterography and Meckel scan yesterday were negative. She swallowed a capsule endoscopy this morning. Objective Vitals: 24hr Min/Max: Temp Min: 36.6 ??C (97.9 ??F) Max: 37.1 ??C (98.7 ??F) Pulse Min: 70 Max: 101 BP Min: 106/64 Max: 124/77 Resp Min: 16 Max: 18 SpO2 Min: 98 % Max: 100 % Most Recent : Vitals: 01/14/23 1110 BP: 110/68 Pulse: 78 Resp: 18 Temp: 36.6 ??C (97.9 ??F) SpO2: 99% I/O last 2 completed shifts: In: 10 [I.V.:10] Out: - No intake/output data recorded. Physical Exam: General: Patient in no acute distress, alert and oriented x 3 HEENT: Normocephalic, atraumatic, sclera non-icteric Lungs: Normal respiratory effort Abd: soft, non-tender, non-distended Skin: No rash Extremities: No edema Neuro: No focal motor sensory deficits Lab/Radiology/Diagnostic Review: Recent Labs Lab Units 01/13/23 0433 01/12/23 2247 SODIUM mmol/L 140 140 POTASSIUM PLASMA mmol/L 3.6 4.3 CHLORIDE mmol/L 110 109 CO2 mmol/L 21* 21* ANIONGAP mmol/L 9 10 GLUCOSE mg/dL 86 98 BUN SERUM mg/dL 10 9 CREATININE mg/dL 0.75 0.79 CALCIUM mg/dL 8.7 9.3 ALBUMIN g/dL 3.5 3.9 ALK PHOS Units/L 41 48 ALT Units/L 18 23 AST Units/L 20 26 BILIRUBIN TOTAL mg/dL 0.2 <0.2 Recent Labs Lab Units 01/13/23 0433 01/12/23 2247 WBC K/cumm 6.5 6.9 HEMOGLOBIN g/dL 11.9 13.0 HEMATOCRIT % 37.3 40.0 PLATELETS K/cumm 299 322 Assessment: Principal Problem: RLQ abdominal pain Active Problems: Chronic nausea Mixed obsessional thoughts and acts Plan: Treatment Team: Consulting Physician: Romie Pradhan DO Intractable abdominal pain Nausea - GI following. Discussed with them today - CT enterography negative - Meckel scan negative - Capsule endoscopy pending - pain control with oxycodone, patient would like to avoid IV morphine - NPO - antiemetics, recently prescribed doxepin by GI for nausea - added compazine OCD - continue Zoloft VTE PPx: SCDs, ambulation Code Status: Full Code MDM: Moderate Disposition: Likely DC home tomorrow Shawn Blum, , MS, FACP, FACOI I spent greater than 35 minutes today in direct patient care in consultation with the patient and/or family members. The remainder of the time was spent coordinating care between specialty services, nursing staff, social work, and case management. This includes time spent prior to the visit and after the visit in direct care of the patient. This time does not include time spent in any separately reportable services such as advanced care planning. For patients or family members viewing this note through [employer] access: This note was written as a communication tool between healthcare providers and may contain technical language, terminology, and abbreviations that are difficult to interpret without advanced medical training. If you have questions or concerns regarding what is written in this note, please contact our office at . * Nehemiah Wiley PA - 01/14/2023 8:36 AM CDT Gastroenterology Progress GI Problems: BRBPR Abdominal pain Interval History: Patient seen: She continues to have abdominal pain. Passed small amount of BRB this morning. Her mom (present) states yesterday she had diarrhea which is new for her. 01/13 CT enterography unremarkable 01/13 Meckle scan neg 01/14 She swallowed VCE this morning about 8:15. She underwent colonoscopy 01/02 which showed rectal erythema - did not get to TI. Vitals: 01/13/23 0930 01/13/23 1517 01/13/23 1915 01/14/23 0018 BP: 113/65 124/77 106/64 BP Location: Right arm Right arm Right arm Patient Position: Lying Lying Pulse: 78 70 75 101 Resp: 18 18 16 18 Temp: 36.7 ??C (98.1 ??F) 36.6 ??C (97.9 ??F) 37.1 ??C (98.7 ??F) TempSrc: Oral Oral Oral SpO2: 98% 98% 100% 98% Weight: Height: Physical Exam Vitals reviewed. HENT: Head: Normocephalic. Eyes: Extraocular Movements: Extraocular movements intact. Cardiovascular: Rate and Rhythm: Normal rate. Pulmonary: Effort: Pulmonary effort is normal. Abdominal: General: Abdomen is flat. Palpations: Abdomen is soft. Tenderness: There is abdominal tenderness. Neurological: Mental Status: She is alert. Lab/Radiology/Diagnostic Review: Recent Labs Lab Units 01/13/23 0433 01/12/23 2247 WBC K/cumm 6.5 6.9 HEMOGLOBIN g/dL 11.9 13.0 HEMATOCRIT % 37.3 40.0 PLATELETS K/cumm 299 322 Recent Labs Lab Units 01/13/233 WBC K/cumm 6.5 HEMOGLOBIN g/dL 11.9 HEMATOCRIT % 37.3 PLATELETS K/cumm 299 NEUTROS PCT % 38.2 LYMPHS PCT % 47.0 MONOS PCT % 8.9 EOS PCT % 4.5 Recent Labs Lab Units 01/13/233 01/12/23 2247 SODIUM mmol/L 140 140 POTASSIUM PLASMA mmol/L 3.6 4.3 BUN SERUM mg/dL 10 9 CREATININE mg/dL 0.75 0.79 CALCIUM mg/dL 8.7 9.3 ALBUMIN g/dL 3.5 3.9 ALK PHOS Units/L 41 48 ALT Units/L 18 23 AST Units/L 20 26 BILIRUBIN TOTAL mg/dL 0.2 <0.2 @ NM Bowel Imaging (Meckels) Result Date: 01/13/2023 Negative Electronically signed by: Wendy Rosales M.D. CT Abdomen and Pelvis Enterography W Contrast Result Date: 01/13/2023 1. Status post cholecystectomy. 2. Slight bladder wall thickening, likely reflecting incomplete distention. Cystitis could be considered in the appropriate clinical setting. 3. Tiny fat-containing ventral hernia just to the right of the umbilicus, stable. 4. Otherwise, unremarkable examination as de scribed. The bowel is normal in appearance. Electronically signed by: Romie Carbajal M.D. ASSESSMENT/PLAN: 1. RLQ pain and blood in stool: Colonoscopy 01/02/23 unable to get to TI, otherwise non specific erythema. 01/13 CT enterography normal bowel 01/13 Meckle scan neg Plan: She swallowed VCE this morning about 8:15 today. ANAIS Blue Cosigned by Romie Pradhan, DO at 01/14/2023 12:11 PM CDT * Yamile Don, RD - 01/13/2023 2:52 PM CDT Initial Nutrition Assessment Reason for Assessment: Screened at Nutrition Risk Encounter Date: 01/13/23 2:52 PM Nutrition Evaluation: Patient is a 22 y.o. female. Admit Dx: RLQ abdominal pain [R10.31] Intractable abdominal pain [R10.9]. Admitted on 01/12/2023, current LOS is 0 days. Patient's intake is inadequate. Objective Past Medical History: Diagnosis Date Abnormal electrocardiography 01/19/2017 Annotation: Saw cardiology 2016 and was cleared, repeat 08/25/19 Normal sinus rhythm with sinus arrhythmia with short VA Anxiety 07/20/2019 Asthma Biliary dyskinesia Migraine headache Mononucleosis Small intestinal bacterial overgrowth (SIBO) Past Surgical History: Procedure Laterality Date LAPAROSCOPIC CHOLECYSTECTOMY 2020 da Carl robotic LUMBAR PUNCTURE WO INJECTION, THERAPEUTIC N/A 11/04/2019 WRIST SURGERY Anthropometrics Weight: 95.3 kg (210 lb 1.6 oz) Admission Weight : 95.3 kg Weight Change: 2.31 kg (5.10 lbs) IBW/kg (Calculated) : 52.2 kg Height: 160 cm (5' 3 ) Weight in (lb) to have BMI = 25: 140.8 BMI (Calculated): 37.2 No intake or output data in the 24 hours ending 01/13/23 1452 Medications and Lab Review: Scheduled Meds: budesonide-formoteroL, 2 puff, inhalation, BID (RT) cetirizine, 10 mg, oral, Daily doxepin, 50 mg, oral, Nightly enoxaparin, 40 mg, subcutaneous, Daily-2100 sertraline, 100 mg, oral, Nightly sodium chloride 0.9%, 0.5-20 mL, intra-catheter, Q8H BLAYNE Continuous Infusions: sodium chloride 0.9%, 100 mL/hr, Last Rate: 100 mL/hr (01/13/23 0018) PRN Meds: acetaminophen albuterol HFA sodium chloride 0.9% HYDROmorphone ondansetron ODT OR ondansetron oxyCODONE polyethylene glycol ramelteon sodium chloride 0.9% Sodium Date Value Ref Range Status 01/13/2023 140 135 - 145 mmol/L Final Potassium, pl Date Value Ref Range Status 01/13/2023 3.6 3.3 - 4.9 mmol/L Final BUN Date Value Ref Range Status 01/13/2023 10 8 - 25 mg/dL Final Creatinine Date Value Ref Range Status 01/13/2023 0.75 0.60 - 1.10 mg/dL Final Albumin Date Value Ref Range Status 01/13/2023 3.5 3.5 - 5.0 g/dL Final Magnesium Date Value Ref Range Status 01/13/2023 1.6 1.4 - 2.5 mg/dL Final Calcium Date Value Ref Range Status 01/13/2023 8.7 8.5 - 10.3 mg/dL Final ALT Date Value Ref Range Status 01/13/2023 18 7 - 45 Units/L Final AST Date Value Ref Range Status 01/13/2023 20 10 - 45 Units/L Final Alk phos Date Value Ref Range Status 01/13/2023 41 40 - 130 Units/L Final Lipase Date Value Ref Range Status 01/12/2023 23 10 - 99 Units/L Final Lab Results Component Value Date HGBA1C 5.5 07/17/2013 Nursing Assessment: Last BM Date: 01/11/23 Bowel Sounds (All Quadrants): Active Thanh Scale Score: 20 Dietary Orders (From admission, onward) Start Ordered 01/13/23 0232 NPO Diet Diet effective now 01/13/23 0231 Nutrition Needs Calculations: Calculated Energy Needs Using Equations Weight: 95.3 kg (210 lb 1.6 oz) Height: 160 cm (5' 3 ) Estimated Protein Needs Type of Weight Used for Estimated Protein : Current Protein Needs Based on g/k.8 Total Protein Estimated Needs (gm): 76.24 Kcal/kg Type of Weight Used for Estimated Kcals: Current Kcal/k Total Kcal/kg Estimated Needs : 1906.02 Nutritional Needs and Diagnosis: Nutrition Diagnosis 1: Inadequate energy intake Related to: Loss of appetite, Early satiety Evidenced by: Patient interview, PO under 50% Impression: Pt seen for MST score of 2 - poor appetite and weight loss. Pt reports appetite has been poor for the last 5-6 weeks; she has small frequent snacks throughout the day and no full meals. Pt reports UBW of 218 and she last weighed this ~1 month ago. Reported UBW is 8 lbs less than currentweight of 210 lbs. Pt assessed for fat and muscle wasting with no findings. Pt agreeable to receiveEnsure BID when diet advances to help with meeting appropriate intake. Focused Physical Findings: Subcutaneous Fat Loss Orbital Region - Surrounding the Eye: Slightly bulged fat pads Cheek Region - Buccal Fat: Full, round filled-out cheeks Upper Arm Region - Triceps/Biceps: Ample fat tissue obvious between folds of skin Muscle Loss Scientologist Region - Temporalis Muscle: Can see/feel well-defined muscle Clavicle Bone Region - Pectoralis Major, Deltoid, Trapezius Muscles: Not visible in male, visible but not prominent in female Clavicle and Acromion Bone Region - Deltoid Muscle: Rounded, curves at arm/shoulder/neck Dorsal Hand - Interosseous Muscle: Muscle bulges, could be flat in some well nourished people Anterior Thigh and Patellar Region - Quadricep Muscle: Well-rounded, well-developed Posterior Calf Region - Gastrocnemius Muscle: Well-developed bulb of muscle Plan: When diet advances provide Ensure chocolate BID. Intervention and Monitoring: Goals: Oral intake to meet 75% estimated nutritional needs by next assessment, Tolerance of medicalfood supplement by next assessment Interventions: Encouragement, Medical food supplement, Meals and snacks Monitoring and Evaluation: Appetite, PO intake, Plan of care Yamile Don RD,LD * Tyra Adam MD - 01/13/2023 11:03 AM CDT Pt admitted with suspicion of Meckel's and Crohn's To get both CT enterography and Meckel's scan * Ian Luis - 01/13/2023 2:05 AM CDT Personal belongings conversation was held with patient and/or family. Understanding verbalized. documented in this encounter H&P Notes * Alberto Johnson MD - 01/13/2023 5:20 AM CDT Images from the original note were not included. History and Physical Date of service: 01/13/23 Primary care provider: Johnna Tinajero MD Chief Complaint: Abdominal pain Subjective HPI: 22 YO F with PMH OCD presenting with abdominal pain. She has had intermittent abdominal pain for several months that has worsened and become more persistent over the last 1.5 months. The pain is localized to the RLQ. It waxes and wanes but has been at a constant 7-8 over the last few days. She has been nauseous and has had a poor appetite as a resultof this pain. She follows with Dr. Adam for GI. She had a colonoscopy with biopsy 01/02/23 ago which was reportedly negative. She has had 2 bloody stools prior to the C-scope and since the procedure has had a few episodes of dark tarry stools. She contacted her GI doctor who recommended going to the ED for further care. Labs unremarkable. Past Medical History: Diagnosis Date Abnormal electrocardiography 01/19/2017 Annotation: Saw cardiology 2016 and was cleared, repeat 08/25/19 Normal sinus rhythm with sinus arrhythmia with short VA Anxiety 07/20/2019 Asthma Biliary dyskinesia Migraine headache Mononucleosis Small intestinal bacterial overgrowth (SIBO) Past Surgical History: Procedure Laterality Date LAPAROSCOPIC CHOLECYSTECTOMY 2020 da Carl robotic LUMBAR PUNCTURE WO INJECTION, THERAPEUTIC N/A 11/04/2019 [facility] SURGERY Medications Prior to Admission Medication Sig Dispense Refill Last Dose albuterol HFA (PROVENTIL HFA,VENTOLIN HFA,PROAIR HFA) 90 mcg/actuation inhaler Inhale 2 puffs every6 (six) hours as needed for wheezing or shortness of breath cetirizine (ZyrTEC) 10 mg tablet Take 10 mg by mouth daily doxepin (SINEquan) 25 mg capsule Take 2 capsules (50 mg total) by mouth nightly fluticasone furoate-vilanteroL (BREO ELLIPTA) 100-25 mcg/dose diskus inhaler Inhale 1 puff once daily Rinse mouth with water after use. Do not swallow. norgestimate-ethinyl estradiol (ORTHO TRI-CYCLEN LO) 0.18/0.215/0.25 mg-25 mcg per tablet Take 1 tablet by mouth daily 0 ondansetron ODT (ZOFRAN-ODT) 4 mg disintegrating tablet Take 1 tablet (4 mg total) by mouth every 6(six) hours as needed for nausea or vomiting sertraline (ZOLOFT) 100 mg tablet Take 1 tablet (100 mg total) by mouth daily Allergies Allergen Reactions Dog Dander Hives Reaction: HIVES, Penicillins Other (See comments) and Rash As a child Reaction: NAUSEA;, As a child Social History Tobacco Use Smoking status: Never Smokeless tobacco: Never Substance and Sexual Activity Drug use: Never Sexual activity: Never Alcohol Use: Not At Risk (01/13/2023) AUDIT-C Frequency of Alcohol Consumption: Never Average Number of Drinks: Patient does not drink Frequency of Binge Drinking: Never Family History Adopted: Yes Family history unknown: Yes Review of Systems: (unless specified above) 1. Constitutional Denies: weight loss, weight gain, fever, chills, night sweats, fatigue 2. Eyes Denies: change in vision, double vision, eye pain, eye discharge, icterus 3. ENT Denies: change in hearing, ear pain, ear discharge, nose bleed, nasal congestion, sore throat 4. Respiratory Denies: SOB, wheezing, cough, sputum, hemoptysis 5. CV Denies: chest pain, palpitations, syncope, edema, dyspnea 6. GI Denies: decreased appetite, vomiting, change in bowel habits, diarrhea, constipation, melena, BRBPR +abdominal pain, nausea 7. Denies: dysuria, frequency, hematuria, nocturia, urgency 8. Metabolic Denies: cold intolerance, heat intolerance, polyphagia, polydipsia 9. Neurologic Denies: headache, dizziness, seizure, change in mental status, focal weakness, focal numbness 10. Musculoskeletal Denies: myalgia, joint pain, joint redness, joint swelling, extremity pain 11. Skin Denies: rash or edema Objective Vitals: Vitals: 01/13/23 0216 BP: 133/90 Pulse: 78 Resp: 18 Temp: 36.9 ??C (98.5 ??F) SpO2: 90% 24hr Min/Max: Temp Min: 36.7 ??C (98.1 ??F) Max: 36.9 ??C (98.5 ??F) Pulse Min: 64 Max: 91 BP Min: 114/77 Max: 146/86 Resp Min: 16 Max: 18 SpO2 Min: 90 % Max: 100 % Most Recent : Vitals: 01/13/23 0216 BP: 133/90 Pulse: 78 Resp: 18 Temp: 36.9 ??C (98.5 ??F) SpO2: 90% No intake/output data recorded. No intake/output data recorded. Physical exam: General appearance: NAD, conversant Eyes: EOMI, PERRLA, sclera non icteric HENT: Atraumatic Neck: supple, trachea midline Lungs: Clear to auscultation bilaterally, normal respiratory effort Heart: RRR, no murmurs Abd: NABS, NTND Lower Ext: No peripheral edema or extremity LAD Neuro: No new gross deficits appreciated Musculoskeletal: no gross joint erythema, edema, tenderness Skin: Normal temperature, turgor and texture, no rashes Psych: Appropriate affect, alert and oriented to person, place and time Vital signs and nursing notes reviewed Lab/Radiology/Diagnostic Review: Recent Labs Lab Units 01/13/23 0433 01/12/23 2247 WBC K/cumm 6.5 6.9 HEMOGLOBIN g/dL 11.9 13.0 HEMATOCRIT % 37.3 40.0 PLATELETS K/cumm 299 322 Recent Labs Lab Units 01/12/23 2247 SODIUM mmol/L 140 POTASSIUM PLASMA mmol/L 4.3 CHLORIDE mmol/L 109 CO2 mmol/L 21* ANIONGAP mmol/L 10 GLUCOSE mg/dL 98 BUN SERUM mg/dL 9 CREATININE mg/dL 0.79 CALCIUM mg/dL 9.3 ALBUMIN g/dL 3.9 ALK PHOS Units/L 48 ALT Units/L 23 AST Units/L 26 BILIRUBIN TOTAL mg/dL <0.2 Imaging personally reviewed: CT Abdomen and Pelvis Enterography W Contrast (Results Pending) Assessment/Plan Principal Problem: RLQ abdominal pain Active Problems: Chronic nausea Mixed obsessional thoughts and acts Intractable abdominal pain Nausea - GI consulted - recommended CT A/P Enterography w/ contrast, f/u results - pain control with oxycodone, patient would like to avoid IV morphine - NPO - antiemetics, recently prescribed doxepin by GI for nausea OCD - continue Zoloft Code status: Full Code Goals for discharge / anticipated LOS: >2mn Medical complexity / risk: Moderate Queziah Elizabeth, MD 01/13/2023 5:20 AM documented in this encounter Consult Notes * Nehemiah Wiley PA - 01/13/2023 11:40 AM CDT Gastroenterology [facility] Consult: Contact info: - [phone]; After hours: [phone] Referring doctor: PCP: Johnna Tinajero MD Reason for consult: No data found HPI: Patient is a 22 y.o. female with a history of RLQ pain and BRBPR who was seen in our GI office12/24/22 as new patient for the same reasons. She underwent colonoscopy 01/02 which showed rectal erythema - did not get to TI. She came to ER last night for worsening pain and maroon blood in stool. Admission labs as below. Past Medical History: Diagnosis Date Abnormal electrocardiography 01/19/2017 Annotation: Saw cardiology 2016 and was cleared, repeat 08/25/19 Normal sinus rhythm with sinus arrhythmia with short VA Anxiety 07/20/2019 Asthma Biliary dyskinesia Migraine headache Mononucleosis Small intestinal bacterial overgrowth (SIBO) Medications Prior to Admission Medication Sig Dispense Refill Last Dose albuterol HFA (PROVENTIL HFA,VENTOLIN HFA,PROAIR HFA) 90 mcg/actuation inhaler Inhale 2 puffs every6 (six) hours as needed for wheezing or shortness of breath cetirizine (ZyrTEC) 10 mg tablet Take 10 mg by mouth daily doxepin (SINEquan) 25 mg capsule Take 2 capsules (50 mg total) by mouth nightly fluticasone furoate-vilanteroL (BREO ELLIPTA) 100-25 mcg/dose diskus inhaler Inhale 1 puff once daily Rinse mouth with water after use. Do not swallow. norgestimate-ethinyl estradiol (ORTHO TRI-CYCLEN LO) 0.18/0.215/0.25 mg-25 mcg per tablet Take 1 tablet by mouth daily 0 ondansetron ODT (ZOFRAN-ODT) 4 mg disintegrating tablet Take 1 tablet (4 mg total) by mouth every 6(six) hours as needed for nausea or vomiting sertraline (ZOLOFT) 100 mg tablet Take 1 tablet (100 mg total) by mouth daily Allergies Allergen Reactions Dog Dander Hives Reaction: HIVES, Penicillins Other (See comments) and Rash As a child Reaction: NAUSEA;, As a child Social History Tobacco Use Smoking status: Never Smokeless tobacco: Never Substance and Sexual Activity Drug use: Never Sexual activity: Never Alcohol Use: Not At Risk (01/13/2023) AUDIT-C Frequency of Alcohol Consumption: Never Average Number of Drinks: Patient does not drink Frequency of Binge Drinking: Never Past Surgical History: Procedure Laterality Date LAPAROSCOPIC CHOLECYSTECTOMY 2020 da Carl robotic LUMBAR PUNCTURE WO INJECTION, THERAPEUTIC N/A 11/04/2019 [facility] SURGERY Family History Adopted: Yes Family history unknown: Yes Review of Systems Constitutional: Negative for chills and fever. HENT: Negative for trouble swallowing. Respiratory: Negative for shortness of breath. Cardiovascular: Negative for chest pain. Gastrointestinal: Positive for abdominal pain, blood in stool and nausea. Negative for abdominal distention, anal bleeding, constipation and diarrhea. Genitourinary: Negative for flank pain. Musculoskeletal: Negative for back pain. Skin: Negative for pallor. Neurological: Positive for weakness. 24hr Min/Max: Temp Min: 36.7 ??C (98.1 ??F) Max: 36.9 ??C (98.5 ??F) Pulse Min: 64 Max: 91 BP Min: 113/65 Max: 146/86 Resp Min: 16 Max: 18 SpO2 Min: 90 % Max: 100 % Most Recent : Vitals: 01/13/23 0930 BP: 113/65 Pulse: 78 Resp: 18 Temp: 36.7 ??C (98.1 ??F) SpO2: 98% Physical Exam Constitutional: General: She is in acute distress. HENT: Head: Normocephalic. Nose: Nose normal. Eyes: Conjunctiva/sclera: Conjunctivae normal. Cardiovascular: Rate and Rhythm: Normal rate. Pulmonary: Effort: Pulmonary effort is normal. Abdominal: General: There is no distension. Palpations: Abdomen is soft. Tenderness: There is abdominal tenderness. Skin: General: Skin is warm. Neurological: Mental Status: She is alert. Psychiatric: Mood and Affect: Mood normal. Lab/Radiology/Diagnostic Review: Recent Labs Lab Units 01/13/23 0433 01/12/23 2247 WBC K/cumm 6.5 6.9 HEMOGLOBIN g/dL 11.9 13.0 HEMATOCRIT % 37.3 40.0 PLATELETS K/cumm 299 322 Recent Labs Lab Units 01/13/23 0433 01/12/23 2247 SODIUM mmol/L 140 140 POTASSIUM PLASMA mmol/L 3.6 4.3 CHLORIDE mmol/L 110 109 CO2 mmol/L 21* 21* ANIONGAP mmol/L 9 10 GLUCOSE mg/dL 86 98 BUN SERUM mg/dL 10 9 CREATININE mg/dL 0.75 0.79 CALCIUM mg/dL 8.7 9.3 ALBUMIN g/dL 3.5 3.9 ALK PHOS Units/L 41 48 ALT Units/L 18 23 AST Units/L 20 26 BILIRUBIN TOTAL mg/dL 0.2 <0.2 ASSESSMENT/PLAN: 1. RLQ pain and blood in stool: Colonoscopy 01/02/23 unable to get to TI, otherwise non specific erythema. Consider ulcer at TI, Meckel diverticulum, other Plan: CT enterography today and if negative then Meckle scan. Thank you for allowing us to participate in the care of Nina Coyne, we will continue to follow. ANAIS Blue Cosigned by Romie Pradhan DO at 01/13/2023 2:38 PM CDT documented in this encounter ED Notes * Yolis Lubin PA - 01/13/2023 12:55 AM CDT HPI Chief Complaint Patient presents with Abdominal Pain Vomiting Nausea 22-year-old female past medical history anxiety, asthma, small intestinal bacterial overgrowth presents to the emergency department at request of her GI doctor Kia for admission and evaluation of her right lower quadrant pain. Patient endorsing right lower quadrant pain has been constant for the past month. Pain will wax and wane in severity but is never absent. She has associated nausea with intermittent vomiting. Last episode of vomiting today. She is having regular bowel movements. A few weeks ago she did have blood in her stool and had a colonoscopy which was negative. She has also had dark bloody stools the past couple of days. She has tried multiple different pain medications aswell as antiemetics at home but has not experienced any relief. Denies fevers, chest pain, difficulty breathing, cough, diarrhea, dysuria. Patient History: Patient Active Problem List Diagnosis Date Noted RLQ abdominal pain 01/13/2023 Intractable abdominal pain 01/13/2023 History of mononucleosis 04/28/2022 Dyskinesia of gallbladder 01/16/2021 Vomiting without nausea 08/22/2020 Vasovagal syncope 10/25/2019 Chronic nausea 08/15/2019 Abdominal pain 07/20/2019 Asthma 07/20/2019 Anxiety 07/20/2019 Vitamin D deficiency 08/17/2018 Irregular menses 08/17/2018 Dander (animal) allergy 07/17/2017 Abnormal electrocardiography 01/19/2017 Obesity 02/22/2015 Asthma, moderate persistent, well-controlled 02/22/2015 History of migraine headaches 07/10/2014 Past Medical History: Diagnosis Date Abnormal electrocardiography 01/19/2017 Annotation: Saw cardiology 2016 and was cleared, repeat 08/25/19 Normal sinus rhythm with sinus arrhythmia with short VA Anxiety 07/20/2019 Asthma Biliary dyskinesia Migraine headache Mononucleosis Small intestinal bacterial overgrowth (SIBO) Past Surgical History: Procedure Laterality Date LAPAROSCOPIC CHOLECYSTECTOMY 2020 da Carl robotic LUMBAR PUNCTURE WO INJECTION, THERAPEUTIC N/A 11/04/2019 WRIST SURGERY Family History Adopted: Yes Family history unknown: Yes Social History Tobacco Use Smoking status: Never Smokeless tobacco: Never Vaping Use Vaping status: None Substance and Sexual Activity Alcohol use: Never Drug use: Never Sexual activity: Never Social History Social History Narrative Patient is single, she is no children. 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 Eyes: Negative for visual disturbance. Respiratory: Negative for cough and shortness of breath. Cardiovascular: Negative for chest pain and palpitations. Gastrointestinal: Positive for abdominal pain, blood in stool, nausea and vomiting. Negative for constipation and diarrhea. Genitourinary: Negative for dysuria. Musculoskeletal: Negative for arthralgias. Skin: Negative for wound. Neurological: Negative for dizziness and headaches. All other systems reviewed and are negative. Physical Exam ED Triage Vitals Temp Pulse Resp BP SpO2 01/12/23215501/12/23215501/12/23215501/12/23215501/12/232155 36.7 ??C (98.1 ??F) 91 16 141/99 100 % Temp src Heart Rate Source Patient Position BP Location FiO2 (%) 01/12/23215501/13/236 01/13/236 01/13/23215 -- Oral Monitor Sitting Right arm Height Height Method Weight Weight Method 01/12/23215501/12/23215501/12/23215501/12/232155 1.6 m (5' 3 ) Stated 93 kg (205 lb) Stated Physical Exam Vitals and nursing note reviewed. Constitutional: General: She is not in acute distress. Appearance: She is not toxic-appearing or diaphoretic. HENT: Head: Normocephalic and atraumatic. Eyes: Conjunctiva/sclera: Conjunctivae normal. Cardiovascular: Rate and Rhythm: Normal rate and regular rhythm. Pulses: Normal pulses. Heart sounds: No murmur heard. Pulmonary: Effort: Pulmonary effort is normal. No respiratory distress. Breath sounds: No wheezing, rhonchi or rales. Abdominal: Palpations: Abdomen is soft. Tenderness: There is abdominal tenderness in the right lower quadrant. There is no guarding or rebound. Musculoskeletal: Cervical back: Neck supple. Right lower leg: No edema. Left lower leg: No edema. Skin: General: Skin is warm. Capillary Refill: Capillary refill takes less than 2 seconds. Neurological: Mental Status: She is alert and oriented to person, place, and time. Psychiatric: Mood and Affect: Mood normal. Behavior: Behavior normal. Thought Content: Thought content normal. [facility] Medical Decision Making Differential: Crohns, Meckels Diverticulum, GI bleed, anemia Plan: 22-year-old female past medical history anxiety, asthma, small intestinal bacterial overgrowth presents to the emergency department at request of her GI doctor Kia for admission and evaluation of her right lower quadrant pain and nausea for the past month. On exam, patient is well-appearing and in no signs of acute distress. Her vital signs are reassuring, she is afebrile. Cardiac exam with regular rate rhythm. Lungs clear bilaterally. Abdomen soft, mild right lower quadrant tenderness. Labs ordered from triage overall reassuring with stable H&H Labs GI consult Admission Amount and/or Complexity of Data Reviewed External Data Reviewed: notes. Details: 12/14/22: ED for 3 weeks of RLQ pain, CT negative, possible cystitis with negative UA. Given Bentyl, Zofran and [place] Labs: Decision-making details documented in ED Course. Radiology: ordered. Discussion of management or test interpretation with external provider(s): GI Dr. Dennis Risk Prescription drug management. Decision regarding hospitalization. ED Course as of 01/13/23 0550 Time: 01/12 2340 Value: HCG, ur, POC: Negative Comment: (Reviewed) By: Yolis Lubin PA Time: 01/12 2356 Comment: H&H stable By: Yolis Lubin PA Time: 01/13 0033 Comment: Dr. Dennis requesting admission to hospitalist. They will follow the patient in the morning. Would like CT enterography abdomen pelvis with without contrast. If negative will need Meckel'ronnaan. By: Yolis Lubin PA Time: 01/13 0038 Comment: Sign-out to Dr. Johnson for admission By: Yolis Lubin PA Time: 01/13 55 Comment: Unable to have CT enterography completed overnight due to needing different tech, patient aware By: Yolis Lubin PA Final diagnoses: RLQ abdominal pain Yolis Lubin PA 01/13/23 0550 * Maggie Watters RN - 01/12/2023 9:55 PM CDT Pt reports right lower abdominal pain, nausea, and vomiting. Pt reports colonoscopy 2 weeks ago documented in this encounter Miscellaneous Notes * Plan of Care - Chilo Cowan RN - 01/15/2023 5:55 PM CDT Problem: Activity: Goal: Ability to return to normal activity level will improve 01/15/2023 175 by Chilo Cowan RN Outcome: Adequate for Discharge 01/15/2023 1118 by Chilo Cowan RN Outcome: Progressing Problem: Lack of Knowledge: Goal: Knowledge of the prescribed therapeutic regimen will improve 01/15/2023 1754 by Chilo Cowan RN Outcome: Adequate for Discharge 01/15/2023 1118 by Chilo Cowan RN Outcome: Progressing Problem: Coping: Goal: Ability to cope will improve 01/15/2023 175 by Chilo Cowan RN Outcome: Adequate for Discharge 01/15/2023 1118 by Chilo Cowan RN Outcome: Progressing Problem: Health Behavior: Goal: Identification of resources available to assist in meeting health care needs will improve 01/15/2023 1754 by Chilo Cowan RN Outcome: Adequate for Discharge 01/15/2023 1118 by Chilo Cowan RN Outcome: Progressing Problem: Sensory: Goal: Pain level will decrease 01/15/2023 1754 by Chilo Cowan RN Outcome: Adequate for Discharge 01/15/2023 1118 by Chilo Cowan RN Outcome: Progressing Problem: Health Behavior: Goal: Understanding of discharge needs will improve 01/15/2023 1754 by Chilo Cowan RN Outcome: Adequate for Discharge 01/15/2023 1118 by Chilo Cowan RN Outcome: Progressing Problem: Respiratory: Goal: Respiratory status will improve 01/15/2023 1754 by Chilo Cowan RN Outcome: Adequate for Discharge 01/15/2023 1118 by Chilo Cowan RN Outcome: Progressing Goal: Ability to maintain adequate ventilation will improve 01/15/2023 1754 by Chiol Cowan RN Outcome: Adequate for Discharge 01/15/2023 1118 by Chilo Cowan RN Outcome: Progressing Goal: Diagnostic test results will improve 01/15/2023 1754 by Chilo Cowan RN Outcome: Adequate for Discharge 01/15/2023 1118 by Chilo Cowan RN Outcome: Progressing Goal: Identification of resources available to assist in meeting health care needs will improve 01/15/2023 1754 by Chilo Cowan RN Outcome: Adequate for Discharge 01/15/2023 1118 by Chilo Cowan RN Outcome: Progressing Goals: Clinical Goals for the Shift: VSS, comfort, rest, complete capsule study. Summary: Patient and mother was given and reviewed over discharge instruction. Both stated that they understand an have no questions at this time.IV removed vitals are stable, and pain is controled * Plan of Care - Sarah Bueno RRT - 01/15/2023 12:03 PM CDT Problem: Respiratory: Goal: Respiratory status will improve Outcome: Adequate for Discharge Goal: Ability to maintain adequate ventilation will improve Outcome: Adequate for Discharge Goal: Diagnostic test results will improve Outcome: Adequate for Discharge Goal: Identification of resources available to assist in meeting health care needs will improve Outcome: Adequate for Discharge Inhaled Bronchodilator Therapy Patient assessed and scored per the established inhaled bronchodilator protocol criteria. Patient preference and subjective response to therapy used in conjunction with patient score to provide current aerosol therapy. Bronchodilator Assessment Scoring Pulmonary Status: Pulmonary Impairment (Acute or Chronic) Surgical Status <30 days ago: No Surgery Chest X-Ray < WEEK: Clear or Not Indicated Respiratory Pattern: Regular, Respiratory Rate less than or equal to 20 Mental Status/LOC: Alert, Oriented, Cooperative Cough: Strong, Non-Productive Breath Sounds: Clear Level of Activity: Ambulatory Oxygen Required for SPO2 >92%: No Oxygen Bronhcodilator Assessment Score: 3 Metered Dose Inhaler MDI given per physician order. The patient has been instructed on proper use and technique. The patient tolerates the treatment well with good technique. Home Medications Patient is seen per current inhaled bronchodilator protocol. Patient has returned to their baselinerespiratory status. Per protocol, patient is able to continue therapies with their home regimen. * Plan of Care - Chilo Cowan RN - 01/15/2023 11:18 AM CDT Problem: Activity: Goal: Ability to return to normal activity level will improve Outcome: Progressing Problem: Lack of Knowledge: Goal: Knowledge of the prescribed therapeutic regimen will improve Outcome: Progressing Problem: Coping: Goal: Ability to cope will improve Outcome: Progressing Problem: Health Behavior: Goal: Identification of resources available to assist in meeting health care needs will improve Outcome: Progressing Problem: Sensory: Goal: Pain level will decrease Outcome: Progressing Goals: Clinical Goals for the Shift: VSS, comfort, rest, complete capsule study. Summary: * Plan of Care - Nicho Delgado RN - 01/15/2023 5:45 AM CDT Goals: Clinical Goals for the Shift: VSS, comfort, rest, complete capsule study. Summary: VSS, pain controlled w/current regimen. Pt able to sleep tonight. Per report, pt is to have capsule study remain on for 24 hours which will end at 0815 this morning, so study left in place. * Plan of Care - Claire Sol RRT - 01/14/2023 7:59 PM CDT Problem: Respiratory: Goal: Respiratory status will improve Outcome: Progressing Metered Dose Inhaler MDI given per physician order. The patient has been instructed on proper use and technique. The patient tolerates the treatment well with good technique. * Plan of Care - Armida Ventura RN - 01/14/2023 3:05 PM CDT Problem: Activity: Goal: Ability to return to normal activity level will improve Outcome: Progressing Problem: Lack of Knowledge: Goal: Knowledge of the prescribed therapeutic regimen will improve Outcome: Progressing Problem: Coping: Goal: Ability to cope will improve Outcome: Progressing Problem: Health Behavior: Goal: Identification of resources available to assist in meeting health care needs will improve Outcome: Progressing Problem: Sensory: Goal: Pain level will decrease Outcome: Progressing Problem: Health Behavior: Goal: Understanding of discharge needs will improve Outcome: Progressing Problem: Respiratory: Goal: Respiratory status will improve Outcome: Progressing Goal: Ability to maintain adequate ventilation will improve Outcome: Progressing Goal: Diagnostic test results will improve Outcome: Progressing Goal: Identification of resources available to assist in meeting health care needs will improve Outcome: Progressing Goals: Clinical Goals for the Shift: monitor VS, rest, safety, pain, IVFs, NPO Summary: complaints of abdominal pain and nausea. Relief obtained after medicated for same. Video capsule study in progress. Alert/oriented x4. Ambulates with a steady gait. On room air. IVF's continue * Plan of Care - Rajwinder Garcia RN - 01/14/2023 3:56 AM CDT Goals: Clinical Goals for the Shift: monitor VS, rest, safety, pain, IVFs, NPO Problem: Activity: Goal: Ability to return to normal activity level will improve Outcome: Progressing Problem: Lack of Knowledge: Goal: Knowledge of the prescribed therapeutic regimen will improve Outcome: Progressing Problem: Coping: Goal: Ability to cope will improve Outcome: Progressing Problem: Health Behavior: Goal: Identification of resources available to assist in meeting health care needs will improve Outcome: Progressing Problem: Sensory: Goal: Pain level will decrease Outcome: Progressing Problem: Respiratory: Goal: Respiratory status will improve Outcome: Progressing Goal: Ability to maintain adequate ventilation will improve Outcome: Progressing Goal: Diagnostic test results will improve Outcome: Progressing Goal: Identification of resources available to assist in meeting health care needs will improve Outcome: Progressing Summary: VSS, pt has been resting on and off this shift. Pt bathed this shift. Pt has had complaints of pain and has been treated accordingly. [facility] has been NPO for capsule endoscopy today. Pt continues on IVFs this shift. * Plan of Care - Sandy Fabian RRT - 01/13/2023 7:33 PM CDT Problem: Respiratory: Goal: Respiratory status will improve Outcome: Progressing Goal: Ability to maintain adequate ventilation will improve Outcome: Progressing Goal: Diagnostic test results will improve Outcome: Progressing Goal: Identification of resources available to assist in meeting health care needs will improve Outcome: Progressing Lung Sounds Lungs are clear to auscultation with no accessory muscle use. No complaint of subjective dyspnea. Metered Dose Inhaler MDI given per physician order. The patient has been instructed on proper use and technique. The patient tolerates the treatment well with good technique. * Plan of Care - Naresh Hyde RN - 01/13/2023 1:44 PM CDT Problem: Activity: Goal: Ability to return to normal activity level will improve Outcome: Progressing Problem: Lack of Knowledge: Goal: Knowledge of the prescribed therapeutic regimen will improve Outcome: Progressing Problem: Coping: Goal: Ability to cope will improve Outcome: Progressing Problem: Health Behavior: Goal: Identification of resources available to assist in meeting health care needs will improve Outcome: Progressing Problem: Sensory: Goal: Pain level will decrease Outcome: Progressing Problem: Health Behavior: Goal: Understanding of discharge needs will improve Outcome: Progressing Problem: Respiratory: Goal: Respiratory status will improve Outcome: Progressing Goal: Ability to maintain adequate ventilation will improve Outcome: Progressing Goal: Diagnostic test results will improve Outcome: Progressing Goal: Identification of resources available to assist in meeting health care needs will improve Outcome: Progressing Goals: Clinical Goals for the Shift: Monitor vital signs, manage pain, rest, comfort, IV fluids Summary: Patient alert and oriented 4, pleasant, nice and cooperative with care. Patient able to make needs known, patient mom at bedside. Patient NPO at this time. Patient complains of Right Lower Quad pain, relieved partially with medications per orders, see MAR. Patient denies any distress, nonenoted. Patient ambulates well with steady gait. Plan of care to continue as directed * Plan of Care - Shital Anthony RRT - 01/13/2023 10:13 AM CDT Problem: Respiratory: Goal: Respiratory status will improve Outcome: Progressing Goal: Ability to maintain adequate ventilation will improve Outcome: Progressing Inhaled Bronchodilator Therapy Patient assessed and scored per the established inhaled bronchodilator protocol criteria. Patient preference and subjective response to therapy used in conjunction with patient score to provide current aerosol therapy. Bronchodilator Assessment Scoring Pulmonary Status: Pulmonary Impairment (Acute or Chronic) Surgical Status <30 days ago: No Surgery Chest X-Ray < WEEK: Clear or Not Indicated Respiratory Pattern: Regular, Respiratory Rate less than or equal to 20 Mental Status/LOC: Alert, Oriented, Cooperative Cough: Strong, Non-Productive Breath Sounds: Clear Level of Activity: Ambulatory Oxygen Required for SPO2 >92%: No Oxygen Bronhcodilator Assessment Score: 3 Metered Dose Inhaler MDI given per physician order. The patient has been instructed on proper use and technique. The patient tolerates the treatment well with good technique. * Initial Assessments - Larisa Pradhan RN - 01/13/2023 8:45 AM CDT CHRIS Initial Assessment Interview Note Information Obtained From: Patient (01/13/23844) Admission Source: Patient lives with her parents, her mother is at bedside. 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 She ambulates without assistive device. Impression: RLQ abdominal pain Plan Includes: GI consulted Primary Source of Transportation: Does the patient need discharge transport arranged?: No (parents will transport her home) Has discharge transport been arranged?: Yes (01/13/23103) Health Insurance Coverage: [employer] OPEN ACCESS- Father's insurance Prescription Coverage: yes Pharmacy: [facility] [address] [place], [place] [address] [address] [address] Primary Care Provider: Johnna Tinajero MD Prior to Admission: Primary Caregiver: Self Who does the patient or legal guardian want to receive education instruction and discharge plans for after care assistance?: No Caregiver Available Support System: Parent Support system contact info (name, phone, availablity): Vicki Coyne, mother and primary surrogate decision maker [phone] Home Care Services: No Durable Medical Equipment: None Living Arrangements: Parent Type of Residence: Private residence Does patient wish to return to care facility?: No, wishes for other placement Will the care facility allow the patient to return?: Other (comment) (N/A; home w/ family) Steps in home?: No steps inside or outside Number of steps inside: 14 steps Number of steps outside: 2 steps Medication management: Unable to Assess (01/13/23215) SDOH: Transportation: In the past 12 months, has lack of transportation kept you from medical appointments or from getting medications?: No In the past 12 months, has lack of transportation kept you from meetings, work, or from getting things needed for daily living?: No (01/13/23844) Financial Resource: How hard is it for you to pay for the very basics like food, housing, medical care, and heating?: Not hard at all (01/13/23844) Housing: In the last 12 months, was there a time when you were not able to pay the mortgage or rent on time?: No In the last 12 months, how many places have you lived?: 2 In the last 12 months, was there a time when you did not have a steady place to sleep or slept in ashelter (including now)?: No (01/13/23844) Social Connections: In a typical week, how many times do you talk on the phone with family, friends, or neighbors?: More than three times a week How often do you get together with friends or relatives?: More than three times a week How often do you attend mandaen or worship services?: More than 4 times per year Do you belong to any clubs or organizations such as mandaen groups, unions, fraternal or athletic groups, or school groups?: No How often do you attend meetings of the clubs or organizations you belong to?: Never Are you , , , , never , or living with a partner?: Never (01/13/23844) Food Insecurity: Within the past 12 months, you worried that your food would run out before you got the money to buymore.: Never true Within the past 12 months, the food you bought just didn't last and you didn't have money to get more.: Never true (01/13/23844) Alcohol Use: PHQ Screening Potential discharge needs include: home with parent's support Home Health: None (01/13/23844) Dialysis: none Behavioral Health Services: Behavioral Health Services: Yes Behavioral Health Services Agency: Madyson Bliss APN, (01/13/23844) Patient expects to be Discharged to: Private residence, (01/13/23844) Additional Information: Parents are very supportive. Patient has a Mental Health provider: Dr Madyson Bliss [phone] Patient's Identified Problem/Goal Problem: Ensure acute medical needs are met and that patient has a safe discharge plan. Goal: Secure a discharge plan that patient/family are agreeable with and ensure patient has continuum of care. Case management will follow for discharge planning and send referrals as needed. Goals include: To assure continuity of care, To maximize coping skills, To assure patient is in a safe environment and To assure access to community resources. Plan includes: 1. Collaboration with patient, MD, direct care nurse, Galley Cook, and other members of the health care team to assure needed interventions completed. 2. Return patient to optimal level of self-care post discharge. 3. Aircraft Instrument Tester will follow for Discharge Planning - interventions as needed 4. Anticipated level of care at discharge 5. Planned Discharge Disposition All are in agreement with the aftercare plan. Larisa Pradhan RN * ED Pre-Arrival Note - Ingris Peña RN - 01/12/2023 7:14 PM CDT Pre-Arrival Note Pt is being sent to ED by Dr. Adam for 1 month of constant RLQ pain. She had some episodes of black stool. Negative colonoscopy and failing outpatient treatment. Dr. Adam would like patientadmitted to Dr. Dennis to rule out Crohn's and Meckel's Diverticulum. Ingris Peña RN documented in this encounter Plan of Treatment Not on file documented as of this encounter Procedures Procedure Name Priority Date/Time Associated Diagnosis Comments CAPSULE ENDOSCOPY SMALL BOWEL EXAM 01/14/2023 8:09 AM CDT RLQ abdominal pain NM BOWEL IMAGING (MECKEL'S) IP Routine 01/13/2023 2:[address] ENTEROGRAPHY W CONTRAST ED 01/13/2023 12:11 PM CDT EGFR Routine 01/13/2023 4:33 AM CDT DIFFERENTIAL AUTO Routine 01/13/2023 4:3 3 AM CDT CBC WITH AUTO DIFFERENTIAL Routine 01/13/2023 4:33 AM CDT MAGNESIUM Routine 01/13/2023 4:33 AM CDT COMPREHENSIVE METABOLIC PANEL Routine 01/13/2023 4:33 AM CDT POCT HCG, URINE Routine 01/12/2023 11:04 PM CDT URINALYSIS AND REFLEX TO MICROSCOPIC AND CULTURE STAT 01/12/2023 11:03 PM CDT EGFR STAT 01/12/2023 10:47 PM CDT DIFFERENTIAL AUTO STAT 01/12/2023 10: 47 PM CDT CBC WITH AUTO DIFFERENTIAL STAT 01/12/2023 10:47 PM CDT LIPASE STAT 01/12/2023 10:47 PM CDT COMPREHENSIVE METABOLIC PANEL STAT 01/12/2023 10:47 PM CDT documented in this encounter Results * NM Bowel Imaging (Meckels) (01/13/2023 2:39 PM CDT) Anatomical Region Laterality Modality Body N/A Nuclear Medicine 01/13/2023 2:50 PM CDT Impressions 01/13/2023 2:50 PM CDT Negative Electronically signed by: Wendy Rosales M.D. Narrative 01/13/2023 2:50 PM CDT EXAM: ??Nuclear medicine bowel imaging (Meckel's) HISTORY: ??Right lower quadrant pain and melena RADIOPHARMACEUTICAL: 10.7 mCi pertechnetate IV left arm COMPARISON: ??CT abdomen and pelvis 12/14/2022, CT enterography 01/13/2023 FINDINGS: Radionuclide angiogram overlying the pelvis as well as imaging over the abdomen and pelvis was performed up to 1 hour after injection of the radial pharmaceutical. Additional images were obtained after voiding. There is no abnormal activity in the in the abdomen or pelvis to suggest Meckel's diverticulum. Procedure Note Wendy Rosales MD - 01/13/2023 EXAM: Nuclear medicine bowel imaging (Meckel's) HISTORY: Right lower quadrant pain and melena RADIOPHARMACEUTICAL: 10.7 mCi pertechnetate IV left arm COMPARISON: CT abdomen and pelvis 12/14/2022, CT enterography 01/13/2023 FINDINGS: Radionuclide angiogram overlying the pelvis as well as imaging over the abdomen and pelvis was performed up to 1 hour after injection of the radial pharmaceutical. Additional images were obtained after voiding. There is no abnormal activity in the in the abdomen or pelvis to suggest Meckel's diverticulum. IMPRESSION: Negative Electronically signed by: Wendy Rosales M.D. us Tyra Adam MD IMG NM PROCEDURES Final Result * CT Abdomen and Pelvis Enterography W Contrast (01/13/2023 12:11 PM CDT) Anatomical Region Laterality Modality Abdomen N/A Computed Tomogra phy 01/13/2023 12:5 3 PM CDT Impressions 01/13/2023 12:53 PM CDT 1. ??Status post cholecystectomy. 2. ??Slight bladder wall thickening, likely reflecting incomplete distention. ??Cystitis could be considered in the appropriate clinical setting. 3. ??Tiny fat-containing ventral hernia just to the right of the umbilicus, stable. 4. ??Otherwise, unremarkable examination as described. ??The bowel is normal in appearance. Electronically signed by: Romie Carbajal M.D. Narrative 01/13/2023 12:[address] enterography HISTORY: Right lower quadrant pain. TECHNIQUE: Transaxial helical imaging was performed through the abdomen and pelvis during intravenous administration 120 mL of Optiray 350. ??Citra Select was utilized for oral contrast as well. ??3 mm images were reconstructed. FINDINGS: Comparison is made to the previous study of 12/14/2022. The lung bases are clear. ??The heart size is normal. ??The patient is status post cholecystectomy. ??The liver, spleen, adrenal glands, pancreas, and kidneys are unremarkable. ??The uterus and ovaries are unremarkable for age. ??Mild bladder wall thickening likely reflects incomplete distention. ??Cystitis could be considered in the appropriate clinical setting. ??The bladder is otherwise unremarkable. The vascular structures are normal. ??There are no enlarged lymph nodes in the abdomen/pelvis. ??The bones are unremarkable. ??There is a stable tiny fat-containing ventral hernia adjacent to the umbilicus. The bowel is unremarkable without wall thickening, increased enhancement, or adjacent inflammation. ??A normal appendix is identified without adjacent inflammation. ??Appendicitis is excluded. Procedure Note Romie Carbajal MD - 01/13/2023 CT enterography HISTORY: Right lower quadrant pain. TECHNIQUE: Transaxial helical imaging was performed through the abdomen and pelvis during intravenous administration 120 mL of Optiray 350. Citra Select was utilized for oral contrast as well. 3 mm images were reconstructed. FINDINGS: Comparison is made to the previous study of 12/14/2022. The lung bases are clear. The heart size is normal. The patient is status post cholecystectomy. The liver, spleen, adrenal glands, pancreas, and kidneys are unremarkable. The uterus and ovaries are unremarkable for age. Mild bladder wall thickening likely reflects incomplete distention. Cystitis could be considered in the appropriate clinical setting. The bladder is otherwise unremarkable. The vascular structures are normal. There are no enlarged lymph nodes in the abdomen/pelvis. The bones are unremarkable. There is a stable tiny fat-containing ventral hernia adjacent to the umbilicus. The bowel is unremarkable without wall thickening, increased enhancement, or adjacent inflammation. A normal appendix is identified without adjacent inflammation. Appendicitis is excluded. IMPRESSION: 1. Status post cholecystectomy. 2. Slight bladder wall thickening, likely reflecting incomplete distention. Cystitis could be considered in the appropriate clinical setting. 3. Tiny fat-containing ventral hernia just to the right of the umbilicus, stable. 4. Otherwise, unremarkable examination as described. The bowel is normal in appearance. Electronically signed by: Romie Carbajal M.D. Yolis MANZO IMG CT PROCEDURES Fin al Result * eGFR (01/13/2023 4:33 AM CDT) eGFR 117 mL/min/1. 73 m2 [facility] Comment: Interpretive Data Reference Interval Normal ?>/= 90 mL/min/1.73m2 Mildly decreased* ? 60 - 89 mL/min/1.73m2 Mildly to moderately decreased ?45 - 59 mL/min/1.73m2 Moderately to severely decreased ??30 - 44 mL/min/1.73m2 Severely decreased ?15 - 29 mL/min/1.73m2 Kidney Failure ?< 15 ??mL/min/1.73m2 *Relative to young adult level Estimated glomerular filtration rate is determined by the 2020 CKD-EPI equation recommended by the National Kidney Foundation (A Unifying Approach to GFR Estimation: Recommendations of the NKF-ASK Task Force on Reassessing the Inclusion of Race in Diagnosing Kidney Disease, JASN 2020). The CKD-EPI equation should not be used for patients with unstable renal function and has not been validated in children and those over 70. Current interpretive data was last reviewed 2021. Blood 01/13/2023 4:33 AM CDT 01/13/2023 4:56 AM CDT Alberto Johnson MD LAB BLOOD ORDERABLES Final Result [facility] [address] Department of Laboratories [place], [place] [id number] * Differential, auto (01/13/2023 4:33 AM CDT) [facility] Neutrophil abs 2.5 1.7 - 6.5 K/cumm [facility] Imm gran abs 0.0 0.0 - 0.1 K/cumm [facility] Lymphocyte abs 3.1 0.8 - 3.3 K/cumm [facility] Monocyte abs 0.6 0.2 - 0.8 K/cumm [facility] Eosinophil abs 0.3 0.0 - 0.5 K/cumm [facility] Basophil abs 0.1 0.0 - 0.1 K/cumm [facility] Neutrophil pct 38.2 % [facility] Comment: Interpretive Data Percent cell count reference ranges are not reported, since discordance with absolute values may lead to misinterpretation of CBC data. Current Interpretive Data was last revised on 2017. Imm gran pct 0.3 % [facility] Comment: Interpretive Data Percent cell count reference ranges are not reported, since discordance with absolute values may lead to misinterpretation of CBC data. Current Interpretive Data was last revised on 2017. Lymphocyte pct 47.0 % [facility] Comment: Interpretive Data Percent cell count reference ranges are not reported, since discordance with absolute values may lead to misinterpretation of CBC data. Current Interpretive Data was last revised on 2017. Monocyte pct 8.9 % [facility] Comment: Interpretive Data Percent cell count reference ranges are not reported, since discordance with absolute values may lead to misinterpretation of CBC data. Current Interpretive Data was last revised on 2017. Eosinophil pct 4.5 % [facility] Comment: Interpretive Data Percent cell count reference ranges are not reported, since discordance with absolute values may lead to misinterpretation of CBC data. Current Interpretive Data was last revised on 2017. Basophil pct 1.1 % [facility] Comment: Interpretive Data Percent cell count reference ranges are not reported, since discordance with absolute values may lead to misinterpretation of CBC data. Current Interpretive Data was last revised on 2017. Blood 01/13/2023 4:33 AM CDT 01/13/2023 4:56 AM CDT us Alberto Johnson MD LAB BLOOD ORDERABLES Final Result [facility] [address] Department [place] [address] * (ABNORMAL) CBC with auto differential (01/13/2023 4:33 AM CDT) [facility] WBC 6.5 3.8 - 9.9 K/cumm [facility] Hgb 11.9 11.9 - 15.5 g/dL [facility] Hct 37.3 35.6 - 45.5 % [facility] Plt 299 150 - 400 K/cumm [facility] MPV 10.1 9.1 - 12.3 fL [facility] RBC 4.09 3.90 - 5.20 M/cumm [facility] MCV 91.2 81.3 - 96.4 fL [facility] MCH 29.1 27.1 - 33.3 pg [facility] MCHC 31.9(L) 32.3 - 35.7 g/dL [facility] RDW CV 12.8 11.1 - 14.9 % [facility] RDW SD 42.3 35.7 - 48.1 fL [facility] NRBC abs 0.00 0.00 - 0.01 K/cumm [facility] Blood 01/13/2023 4:33 AM CDT 01/13/2023 4:56 AM CDT Alberto Johnson MD LAB BLOOD ORDERABLES Final Result Performing Organization Address City/[facility]/ZIP Co de Phone Number [facility] [address] [employer] [place], [place] [id number] * Magnesium (01/13/2023 4:33 AM CDT) [facility] Magnesium 1.6 1.4 - 2.5 mg/dL [facility] Blood 01/13/2023 4:33 AM CDT 01/13/2023 4:56 AM CDT Alberto Johnson MD LAB BLOOD ORDERABLES Final Result [facility] [address] [facility] [place] [address] * (ABNORMAL) Comprehensive metabolic panel (01/13/2023 4:33 AM CDT) [facility] Sodium 140 135 - 145 mmol/L [facility] Potassium, pl 3.6 3.3 - 4.9 mmol/L [facility] Chloride 110 97 - 110 mmol/L [facility] CO2 21(L) 22 - 32 mmol/L [facility] Anion gap 9 2 - 15 mmol/L [facility] BUN 10 8 - 25 mg/dL [facility] Creatinine 0.75 0.60 - 1.10 mg/dL [facility] Glucose 86 70 - 199 mg/dL [facility] Comment: Interpretive Data Fasting glucose >/= 126 mg/dl is diagnostic for diabetes. ?? Fasting is defined as no caloric intake for at least 8 hours. Fasting glucose between 100 mg/dl to 125 mg/dl is diagnostic of prediabetes. In a patient with classic symptoms of hyperglycemia or hyperglycemic crisis, a random glucose >/= 200 mg/dl is diagnostic for diabetes. In the absence of unequivocal hyperglycemia, results should be confirmed by repeat testing. The classification and Diagnosis of Diabetes Diabetes Care 2021; 46: S19-S40. Current interpretive data was last revised 2022. Calcium 8.7 8.5 - 10.3 mg/dL [facility] Bilirubin, total 0.2 0.1 - 1.2 mg/dL [facility] Protein, pl 6.1(L) 6.5 - 8.5 g/dL [facility] Albumin 3.5 3.5 - 5.0 g/dL [facility] Alk phos 41 40 - 130 Units/L [facility] ALT 18 7 - 45 Units/L [facility] AST 20 10 - 45 Units/L [facility] Blood 01/13/2023 4:33 AM CDT 01/13/2023 4:56 AM CDT us Alberto Johnson MD LAB BLOOD ORDERABLES Final Result [facility] [address] Department [place] [address] * POCT hCG, urine (01/12/2023 11:04 PM CDT) [facility] HCG, ur, POC Negative Lot Number [id number] QC Backgroud Clear Acceptable QC Control Line Acceptable Urine 01/12/2023 11:0 4 PM CDT us Yariel Dennis MD POINT OF CARE TEST ORDERABL ES Final Result * (ABNORMAL) Urinalysis reflex to microscopic and culture Urine (01/12/2023 11:03 PM CDT) [facility] Color, ur Yellow Yellow [facility] Clarity, ur Clear Clear [facility] Specific gravity, ur 1.039(H) 1.003 - 1.030 [facility] pH, urine 6.0 [facility] Protein, ur ql Trace Negative [facility] Glucose, ur ql Negative Negative [facility] Ketones, ur Negative Negative [facility] Bilirubin, ur Negative Negative [facility] Blood, ur Negative Negative [facility] Urobilinogen, ur <2.0 <2.0 mg/dL [facility] Nitrite, ur Negative Negative [facility] Leukocyte esterase, ur Negative Negative [facility] UA reflex comment Reflex conditions for microscopic UA and culture not met. [facility] Urine 01/12/2023 11:0 3 PM CDT 01/12/2023 11:09 PM CDT Narrative [facility] - 01/12/2023 11:11 PM CDT ?? Urine pH is affected by diet, medications, systemic acid-base disturbances, and renal tubular function. ??pH may affect urinary stone formation. ??For example, urine pH below 6.0 may help reduce the tendency for calcium phosphate stones and pH greater than 6.0 may reduce the tendency for uric acid stone formation. Source: [facility] [employer]. Last revised 09-10-2017 us Yariel Dennis MD LAB MICROBIOLOGY - GENERAL ORDERABLES Final Result [facility] [address] Department [place] [address] * eGFR (01/12/2023 10:47 PM CDT) [facility] eGFR 110 mL/min/1. 73 m2 [facility] Comment: Interpretive Data Reference Interval Normal ?>/= 90 mL/min/1.73m2 Mildly decreased* ? 60 - 89 mL/min/1.73m2 Mildly to moderately decreased ?45 - 59 mL/min/1.73m2 Moderately to severely decreased ??30 - 44 mL/min/1.73m2 Severely decreased ?15 - 29 mL/min/1.73m2 Kidney Failure ?< 15 ??mL/min/1.73m2 *Relative to young adult level Estimated glomerular filtration rate is determined by the 2020 CKD-EPI equation recommended by the National [employer] (A Unifying Approach to GFR Estimation: Recommendations of the NKF-ASK Task Force on Reassessing the Inclusion of Race in Diagnosing Kidney Disease, JASN 2020). The CKD-EPI equation should not be used for patients with unstable renal function and has not been validated in children and those over 70. Current interpretive data was last reviewed 2021. Blood 01/12/2023 10:4 7 PM CDT 01/12/2023 10:52 PM CDT us Yariel Dennis MD LAB BLOOD ORDERABLES Final Result [facility] [address] Department [place] [address] * Differential, auto (01/12/2023 10:47 PM CDT) [facility] Neutrophil abs 3.0 1.7 - 6.5 K/cumm [facility] Imm gran abs 0.0 0.0 - 0.1 K/cumm [facility] Lymphocyte abs 2.9 0.8 - 3.3 K/cumm [facility] Monocyte abs 0.6 0.2 - 0.8 K/cumm [facility] Eosinophil abs 0.4 0.0 - 0.5 K/cumm [facility] Basophil abs 0.1 0.0 - 0.1 K/cumm [facility] Neutrophil pct 42.6 % [facility] Comment: Interpretive Data Percent cell count reference ranges are not reported, since discordance with absolute values may lead to misinterpretation of CBC data. Current Interpretive Data was last revised on 2017. Imm gran pct 0.3 % [facility] Comment: Interpretive Data Percent cell count reference ranges are not reported, since discordance with absolute values may lead to misinterpretation of CBC data. Current Interpretive Data was last revised on 2017. Lymphocyte pct 41.8 % [facility] Comment: Interpretive Data Percent cell count reference ranges are not reported, since discordance with absolute values may lead to misinterpretation of CBC data. Current Interpretive Data was last revised on 2017. Monocyte pct 9.2 % [facility] Comment: Interpretive Data Percent cell count reference ranges are not reported, since discordance with absolute values may lead to misinterpretation of CBC data. Current Interpretive Data was last revised on 2017. Eosinophil pct 5.1 % [facility] Comment: Interpretive Data Percent cell count reference ranges are not reported, since discordance with absolute values may lead to misinterpretation of CBC data. Current Interpretive Data was last revised on 2017. Basophil pct 1.0 % [facility] Comment: Interpretive Data Percent cell count reference ranges are not reported, since discordance with absolute values may lead to misinterpretation of CBC data. Current Interpretive Data was last revised on 2017. Blood 01/12/2023 10:4 7 PM CDT 01/12/2023 10:52 PM CDT us Yariel Dennis MD LAB BLOOD ORDERABLES Final Result [facility] [address] Department [place] [address] * Lipase (01/12/2023 10:47 PM CDT) Lipase 23 10 - 99 Units/L [facility] Blood (Blood, Venous) 01/12/2023 10:47 PM CDT 01/12/2023 10:52 PM CDT us Yariel Dennis MD LAB BLOOD ORDERABLES Final Result [facility] [address] Department [place] [address] * (ABNORMAL) Comprehensive metabolic panel (01/12/2023 10:47 PM CDT) Pathologist [facility] Sodium 140 135 - 145 mmol/L [facility] Potassium, pl 4.3 3.3 - 4.9 mmol/L [facility] Chloride 109 97 - 110 mmol/L [facility] CO2 21(L) 22 - 32 mmol/L [facility] Anion gap 10 2 - 15 mmol/L [facility] BUN 9 8 - 25 mg/dL [facility] Creatinine 0.79 0.60 - 1.10 mg/dL [facility] Glucose 98 70 - 199 mg/dL [facility] Comment: Interpretive Data Fasting glucose >/= 126 mg/dl is diagnostic for diabetes. ?? Fasting is defined as no caloric intake for at least 8 hours. Fasting glucose between 100 mg/dl to 125 mg/dl is diagnostic of prediabetes. In a patient with classic symptoms of hyperglycemia or hyperglycemic crisis, a random glucose >/= 200 mg/dl is diagnostic for diabetes. In the absence of unequivocal hyperglycemia, results should be confirmed by repeat testing. The classification and Diagnosis of Diabetes Diabetes Care 202; 46: S19-S40. Current interpretive data was last revised 2022. Calcium 9.3 8.5 - 10.3 mg/dL [facility] Bilirubin, total <0.2 0.1 - 1.2 mg/dL [facility] Protein, pl 6.9 6.5 - 8.5 g/dL [facility] Albumin 3.9 3.5 - 5.0 g/dL [facility] Alk phos 48 40 - 130 Units/L [facility] ALT 23 7 - 45 Units/L [facility] AST 26 10 - 45 Units/L [facility] Comment:Slightly Hemolyzed S pecimen Blood 01/12/2023 10:4 7 PM CDT 01/12/2023 10:52 PM CDT Yariel Dennis MD LAB BLOOD ORDERABLES Final Result Performing Organization Address [facility]/ZIP Co de Phone Number [facility] [address] [place] [address] * CBC with auto differential (01/12/2023 10:47 PM CDT) WBC 6.9 3.8 - 9.9 K/cumm [facility] Hgb 13.0 11.9 - 15.5 g/dL [facility] Hct 40.0 35.6 - 45.5 % [facility] Plt 322 150 - 400 K/cumm [facility] MPV 10.3 9.1 - 12.3 fL [facility] RBC 4.36 3.90 - 5.20 M/cumm [facility] MCV 91.7 81.3 - 96.4 fL [facility] MCH 29.8 27.1 - 33.3 pg [facility] MCHC 32.5 32.3 - 35.7 g/dL [facility] RDW CV 12.7 11.1 - 14.9 % [facility] RDW SD 43.0 35.7 - 48.1 fL [facility] NRBC abs 0.00 0.00 - 0.01 K/cumm [facility] Blood (Blood, Venous) 01/12/2023 10:47 PM CDT 01/12/2023 10:52 PM CDT Yariel Dennis MD LAB BLOOD ORDERABLES Final Result Performing Organization Address [facility]/ZIP Co de Phone Number [facility] [address] Department [employer] [place], [place] [id number] documented in this encounter Visit Diagnoses Diagnosis RLQ abdominal pain- Primary Abdominal pain, right lower quadrant RLQ abdominal pain Abdominal pain, right lower quadrant Intractable abdominal pain Intractable abdominal pain Chronic nausea Nausea alone Mixed obsessional thoughts and acts documented in this encounter Admitting Diagnoses Diagnosis RLQ abdominal pain Abdominal pain, right lower quadrant Intractable abdominal pain documented in this encounter Administered Medications Inactive Administered Medications - up to 3 most recent administrations Medication Order MAR Action Action Date Dose Rate Site acetaminophen (TYLENOL) tablet 650 mg 650 mg, oral, Every 4 hours PRN, 1st line for pain, fever, fever greater than 38.3 C, Starting on Thu01/13/23 at 0231, Indications: Fever, PainIndications:Fever,Pain Given 01/13/2023 9:54 AM CDT 650 mg Given 01/13/2023 2:51 AM CDT 650 mg budesonide-formoteroL (SYMBICORT) 80-4.5 mcg/actuation inhaler 2 puff 2 puff, inhalation, 2 times daily (correspondence analyst), First dose on Thu01/13/23 at 0800, I /authorizing provider attest that the patient meets the approved [facility] Use Criteria: Yes Given 01/15/2023 11:59 AM CDT 2 puffs Given 01/14/2023 7:56 PM CDT 2 puffs Given 01/13/2023 7:15 PM CDT 2 puffs cetirizine (ZyrTEC) tablet 10 mg 10 mg, oral, Daily, First dose on Thu01/13/23 at 0900 Given 01/15/2023 9:32 AM CDT 10 mg Given 01/14/2023 11:30 AM CDT 10 mg Given 01/13/2023 9:47 AM CDT 10 mg doxepin (SINEquan) capsule 50 mg 50 mg, oral, Nightly, First dose on Thu01/13/23 at 2100 Given 01/14/2023 8:38 PM CDT 50 mg Given 01/13/2023 10:06 PM CDT 50 mg enoxaparin (LOVENOX) syringe 40 mg 40 mg, subcutaneous, Daily (for enoxaparin), First dose on Thu01/13/23 at 2100, Indications: Deep Vein Thrombosis PreventionIndications:Deep Vein Thrombosis Prevention Given 01/14/2023 8:38 PM CDT 40 mg Left Lower Abdomen Given 01/13/2023 10:06 PM CDT 40 mg L eft Lower Abdomen HYDROmorphone (PF) (DILAUDID) injection 0.2 mg 0.2 mg, intravenous, Administer over 2 Minutes, Every 4 hours PRN, 2nd line for pain, Starting on Thu01/13/23 at 0635 Given 01/14/2023 8:33 AM CDT 0.2 mg ioversoL (OPTIRAY 350) syringe 125 mL 125 mL, intravenous, Once in imaging, contrast, Starting on Thu01/13/23 at 1139, For 1 dose Contrast Given 01/13/2023 12:04 PM CDT 120 mL ketorolac (TORADOL) 30 mg/mL (1 mL) injection 15 mg 15 mg, intravenous, Once, On Thu01/12/23 at 2341, For 1 dose, For Adult IV push, administer over 15 seconds, Indications: PainIndications:Pain Given 01/12/2023 11:47 PM CDT 15 mg magnesium citrate oral solution 296 mL 296 mL, oral, Once, On Thu01/13/23 at 1600, For 1 dose, Pre-Op/Floor (GI), Indications: Bowel EvacuationIndications:Bowel Evacuation Given 01/13/2023 6:07 PM CDT 296 mL ondansetron (ZOFRAN) injection 4 mg 4 mg, intravenous, Administer over 2 Minutes, Once, On Thu01/12/23 at 2341, For 1 dose, Indications: Nausea, VomitingIndications:Nausea,Vomiting Given 01/12/2023 11:47 PM CDT 4 mg ondansetron (ZOFRAN) injection 4 mg 4 mg, intravenous, Administer over 2 Minutes, Every 6 hours PRN, nausea, vomiting, if not tolerating PO, Starting on Thu01/13/23 at 0231, Indications: Nausea and VomitingIndications:Nausea and Vomiting Given 01/14/2023 11:31 AM CDT 4 mg ondansetron ODT (ZOFRAN-ODT) disintegrating tablet 4 mg 4 mg, oral, Every 6 hours PRN, nausea, vomiting, Starting on Thu01/13/23 at 0231, Indications: Nausea and VomitingIndications:Nausea and Vomiting Given 01/13/2023 3:10 PM CDT 4 mg oxyCODONE (ROXICODONE) tablet 5 mg 5 mg, oral, Every 4 hours PRN, 1st line for pain, Starting on Thu01/13/23 at 0634, Indications: PainIndications:Pain Given 01/15/2023 9:34 AM CDT 5 mg Given 01/14/2023 8:42 PM CDT 5 mg Given 01/14/2023 4:54 PM CDT 5 mg prochlorperazine (COMPAZINE) injection 5 mg 5 mg, intravenous, Administer over 2 Minutes, Every 6 hours PRN, nausea, vomiting, Starting on Thu01/14/23 at 1203 sertraline (ZOLOFT) tablet 100 mg 100 mg, oral, Nightly, First dose (after last modification) on Thu01/13/23 at 2100 Given 01/14/2023 8:38 PM CDT 100 mg Given 01/13/2023 10:06 PM CDT 100 mg sodium chloride 0.9% flush 0.5-20 mL 0.5-20 mL, intra-catheter, Every 8 hours scheduled, First dose on Thu01/13/23 at 0600, Flush volume based on line type and size. Given 01/13/2023 3:11 PM CDT 10 mL sodium chloride 0.9% infusion 100 mL/hr, intravenous, Continuous, Starting on Thu01/13/23 at 0005 New Bag 01/15/2023 4:43 AM CDT 100 mL/hr 100 mL/hr New Bag 01/14/2023 6:22 PM CDT 100 mL/hr 100 mL/hr Rate/Dose Verify 01/14/2023 4:02 PM CDT 100 mL/hr 100 mL/ hr tc-99m sodium pertechnetate injection 10.7 millicurie 10.7 millicurie, intravenous, Once in imaging, radiopharmaceutical, Starting on Thu01/13/23 at 1440, For 1 dose Given 01/13/2023 2:40 PM CDT 10.7 millicuries Left Antecubital documented in this encounter Discontinued Medications Medication Sig Discontinue Reason Start Date End Da te dicyclomine (BENTYL) 20 mg tablet Take 1 tablet (20 mg total) by mouth 2 (two) times a day 12/14/2022 01/12/2023 ondansetron ODT (ZOFRAN-ODT) 4 mg disintegrating tabletIndications:Nausea and vomiting Dissolve 1 tablet oral every 6 hours as needed for nausea or vomiting. 12/14/2022 01/12/2023 documented as of this encounter Historical Medications * This list may reflect changes made after this encounter. doxepin (SINEquan) 25 mg capsule Take 2 capsules (50 mg total) by mouth nightly ondansetron ODT (ZOFRAN-ODT) 4 mg disintegrating tablet Take 1 tablet (4 mg total) by mouth every 6 (six) hours as needed for nausea or vomiting added in this encounter Active and Recently Administered Medications Times are shown in CDT. Scheduled Medication Order 01/13/2023 01/14/2023 01/15/2023 budesonide-formoteroL (SYMBICORT) 80-4.5 mcg/actuation inhaler 2 puff 2 puff, inhalation, 2 times daily (correspondence analyst), First dose on Thu01/13/23 at 0800, I /authorizing provider attest that the patient meets the approved [facility] Use Criteria: Yes 0757 (Given - Provider: Shital Anthony, CORRECTIONAL PROGRAM SPECIALIST)1915 (Given - Provider: Sandy Fabian, MATTHEW) 0856 (Not Given - Provider: Juanis Torres, MATTHEW - Reason: Patient/family refused - Comment: just did endoscopy)1955 (Given - Provider: Claire Sol, CORRECTIONAL PROGRAM SPECIALIST) 1159 (Given - Provider: Sarah Bueno, MATTHEW) cetirizine (ZyrTEC) tablet 10 mg 10 mg, oral, Daily, First dose on Thu01/13/23 at 0900 0947 (Given - Provider: Naresh Hyde, GLENDA) 1130 (Given - Provider: Armida Ventura, GLENDA) 0932 (Given - Provider: Chilo Cowan, GLENDA) doxepin (SINEquan) capsule 50 mg 50 mg, oral, Nightly, First dose on Thu01/13/23 at 2100 2206 (Given - Provider: Rajwinder Garcia, GLENDA) 203 (Given - Provider: Nicho Delgado, GLENDA) enoxaparin (LOVENOX) syringe 40 mg 40 mg, subcutaneous, Daily (for enoxaparin), First dose on Thu01/13/23 at 2100, Indications: Deep Vein Thrombosis Prevention 220 (Given - Provider: Rajwinder Garcia RN) 2037 (Given - Provider: Nicho Delgado RN) magnesium citrate oral solution 296 mL (COMPLETED) 296 mL, oral, Once, On Thu01/13/23 at 1600, For 1 dose, Pre-Op/Floor (GI), Indications: Bowel Evacuation 1807 (Given - Provider: Naresh Hyde, GLENDA) sertraline (ZOLOFT) tablet 100 mg 100 mg, oral, Nightly, First dose (after last modification) on Thu01/13/23 at 2100 220 (Given - Provider: Rajwinder Garcia RN) 2037 (Given - Provider: Nicho Delgado RN) sodium chloride 0.9% flush 0.5-20 mL 0.5-20 mL, intra-catheter, Every 8 hours scheduled, First dose on Thu01/13/23 at 0600, Flush volume based on line type and size. 0613 (Not Given - Provider: Concepcion Wick LPN - Reason: IV Infusing)1511 (Given - Provider: Naresh Hyde RN)2225 (Not Given - Provider: Rajwinder Garcia RN - Reason: IV Infusing) 0405 (Not Given - Provider: Rajwinder Garcia RN - Reason: IV Infusing)1324 (Not Given - Provider: Armida Ventura RN - Reason: IV Infusing) 0203 (Not Given - Provider: Nicho Delgado RN - Reason: IV Infusing)0541 (Not Given - Provider: Nicho Delgado RN - Reason: IV Infusing)1446 (Not Given - Provider: Chilo Cowan RN - Reason: IV Infusing) Continuous Medication Order 01/13/2023 01/14/2023 01/15/2023 sodium chloride 0.9% infusion 100 mL/hr, intravenous, Continuous, Starting on Thu01/13/23 at 0005 0018 (New Bag - Provider: Sandra Guo RN)1925 (New Bag - Provider: Naresh Hyde RN) 0741 (New Bag - Provider: Armida Ventura RN)1020 (Rate/Dose Verify - Provider: Armida Ventura RN)1324 (Rate/Dose Verify - Provider: Armida Ventura RN)1602 (Rate/Dose Verify - Provider: Armida Ventura RN)1822 (New Bag - Provider: Armida Ventura RN) 0443 (New Bag - Provider: Nicho Delgado RN)2209 (Due: Stopped) PRN Medication Order 01/13/2023 01/14/2023 01/15/2023 acetaminophen (TYLENOL) tablet 650 mg 650 mg, oral, Every 4 hours PRN, 1st line for pain, fever, fever greater than 38.3 C, Starting on Thu01/13/23 at 0231, Indications: Fever, Pain 0251 (Given - Provider: Concepcion Wick LPN)0954 (Given - Provider: Naresh Hyde RN) 1711 (Not Given - Provider: Armida Ventura RN - Reason: Other - Comment: returned, patient did not want at present time) albuterol HFA (PROVENTIL HFA,VENTOLIN HFA,PROAIR HFA) 90 mcg/actuation inhaler 2 puff 2 puff, inhalation, Every 6 hours PRN (correspondence analyst), wheezing, shortness of breath, Starting on Thu01/13/23 at 0231 Carrier Fluids for Secondary Infusion - 0.9% Sodium Chloride 30 mL, intravenous, As needed, For priming tubing and/or flushing, Starting on Thu01/13/23 at 0231, 0-250 ml/hr to flush line after IV infusions when no maintenance IV ordered. Infuse 30mL at the same rate as the secondary infusion. Run as primary IV, not intended for KVO. HYDROmorphone (PF) (DILAUDID) injection 0.2 mg 0.2 mg, intravenous, Administer over 2 Minutes, Every 4 hours PRN, 2nd line for pain, Starting on Thu01/13/23 at 0635 0833 (Given - Provider: Armida Ventura RN) ioversoL (OPTIRAY 350) syringe 125 mL (COMPLETED) 125 mL, intravenous, Once in imaging, contrast, Starting on Thu01/13/23 at 1139, For 1 dose 1204 (Contrast Given - Provider: Chandler Minor, RT) ondansetron (ZOFRAN) injection 4 mg(Linked Group 1) 4 mg, intravenous, Administer over 2 Minutes, Every 6 hours PRN, nausea, vomiting, if not tolerating PO, Starting on Thu01/13/23 at 0231, Indications: Nausea and Vomiting 1510 (See Alternative - Provider: Naresh Hyde RN) 1131 (Given - Provider: Armida Ventura, GLENDA) ondansetron ODT (ZOFRAN-ODT) disintegrating tablet 4 mg(Linked Group 1) 4 mg, oral, Every 6 hours PRN, nausea, vomiting, Starting on Thu01/13/23 at 0231, Indications: Nausea and Vomiting 1510 (Given - Provider: Naresh Hyde RN) 1131 (See Alternative - Provider: Armida Ventura RN) oxyCODONE (ROXICODONE) tablet 5 mg 5 mg, oral, Every 4 hours PRN, 1st line for pain, Starting on Thu01/13/23 at 0634, Indications: Pain 1510 (Given - Provider: Naresh Hyde RN)2206 (Given - Provider: Rajwinder Garcia, GLENDA) 1654 (Given - Provider: Armida Ventura, GLENDA)2042 (Given - Provider: Nicho Delgado, GLENDA) 0934 (Given - Provider: Chilo Cowan, GLENDA) polyethylene glycol (MIRALAX) packet 17 g 17 g, oral, Daily PRN, constipation, Starting on Thu01/13/23 at 0231, Indications: constipation prochlorperazine (COMPAZINE) injection 5 mg 5 mg, intravenous, Administer over 2 Minutes, Every 6 hours PRN, nausea, vomiting, Starting on Thu01/14/23 at 1203 ramelteon (ROZEREM) tablet 8 mg 8 mg, oral, Nightly PRN, sleep, Starting on Thu01/13/23 at 0231, Indications: Sleep-Onset Insomnia sodium chloride 0.9% flush 0.5-20 mL 0.5-20 mL, intra-catheter, As needed, line care, Starting on Thu01/13/23 at 0231, Flush volume based on line type and size. Flush before and after each use. tc-99m sodium pertechnetate injection 10.7 millicurie (COMPLETED) 10.7 millicurie, intravenous, Once in imaging, radiopharmaceutical, Starting on Thu01/13/23 at 1440, For 1 dose 1440 (Given - Provider: Sony Simmons, RT) Linked Groups Order Group 1: ondansetron ODT (ZOFRAN-ODT) disintegrating tablet 4 mgJump to med 4 mg, oral, Every 6 hours PRN, nausea, vomiting, Starting on Thu01/13/23 at 0231, Indications: Nausea and Vomiting Or ondansetron (ZOFRAN) injection 4 mgJump to med 4 mg, intravenous, Administer over 2 Minutes, Every 6 hours PRN, nausea, vomiting, if not tolerating PO, Starting on Thu01/13/23 at 0231, Indications: Nausea and Vomiting documented in this encounter Orders Medications Ordered That Jonny ht Not Have Been Administered Count Last Ordered Date First Ordered Date prochlorperazine (COMPAZINE) injection 5 mg 1 01/14/2023 albuterol HFA (PROVENTIL HFA ,VENTOLIN HFA,PROAIR HFA) 90 mcg/actuation inhaler 2 puff 1 01/13/2023 Carrier Fluids for Secondary Infusion - 0.9% Sodium Chloride 1 01/13/2023 ondansetron (ZOFRAN) injection 4 mg 1 01/13 polyethylene glycol (MIRALAX) packet 17 g 1 01/13/2023 ramelteon (ROZEREM) tablet 8 mg 1 sertraline (ZOLOFT) tablet 100 mg 1 023 sodium chloride 0.9% flush 0.5-20 mL 1 12/29 Diet Count Last Ordered Date First Orde red Date ADULT DISCHARGE DIET 1 01/15/2023 Nursing Count Last Ordered Date First Orde red Date DISCHARGE ACTIVITY 1 01/15/2023 FOLLOW UP WITH ESTABLISHED PROVIDER 01/15 ACTIVITY 1 01/13/2023 NOTIFY PROVIDER (SPECIFY) 1 01/13/2023 WEIGH PATIENT 2 01/13/2023 MISCELLANEOUS NURSING CARE ORDER (SPECIFY) 1 01/12/2023 IV Count Last Ordered Date First Orde red Date SALINE LOCK IV 1 01/12/2023 Admission Count Last Ordered Date First Orde red Date ADMIT TO INPATIENT 1 01/13/2023 Discharge Count Last Ordered Date First Orde red Date DISCHARGE PATIENT 1 01/15/2023 CORE MEASURES Count Last Ordered Date First Ord ered Date REASON FOR NO VTE PROPHYLAXIS AT ADMISSION 1 01/13/2023 Case Request Count Last Ordered Date First Orde red Date CASE REQUEST GI 1 01/13/2023 documented in this encounter Care Teams Tar Heater Operator Relationship Specialty Start Date End Date Johnna Tinajero MD [address] [address] PCP - General Pediatrics 07/19/19 01/26/23 Johnna Tinajero MD [address] [address] 07/19/19 Luciano Edwards MD [address] [address] Consulting Physician General Surgery 02/01/21 [place] [address] [place] [address] Consulting Physician Gastroenterology 01/15/23 documented as of this encounter
--- OUTSIDE RECORDS SUMMARY | 2024-08-28 02:12 | XMS_ITS | Encounter Summary ---
Author Organization [facility] Address [address] [place] [address] [address] [place] [address] Phone Care Team Providers Care Actuarial Science Teacher Name Role Phone Johnna Tinajero MD Primary Care Provider + Johnna Tinajero MD Unavailable [phone] Encounter Details Date Type Department Care Team (Late st Contact Info) Description 01/22/2021 Telephone [facility] [address] [place] [address] Johnna Tinajero MD [address] [place] [address] Social History Tobacco Use Types Packs/Day [...] on file Legal Sex 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 On day 10 (last day) of antibiotic ear drops. Complained that ears felt itchy yesterday and pressure. No pain. Denies redness or drainage from ears. Afebrile, NO URI Sx. Hx of seasonal allergies, started taking Zyrtec. Mom concernedbecce Wood has procedure scheduled on 02/01 and wants to make sure she is healthy prior to operation. Advised to try Flonase in addition to taking Zyrtec Daily. If no relief/improvment CB to schedule same day urgent appointment. CB sooner for new/worsening sx, questions, concerns. Mom agrees with plan of care. documented in this encounter Plan of Treatment Not on file documented as of this encounter Visit Diagnoses Not on filedocumented in this encounter Care Teams Actuarial Science Teacher Relationship Specialty [place] [address] [place] [address] PCP - General Pediatrics 07/19/19 01/26/23 [place] [address] [place] [address] 07/19/19 documented as of this encounter
--- OUTSIDE RECORDS SUMMARY | 2024-08-28 02:12 | XMS_ITS | Encounter Summary ---
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 Gender Identity Not on file Sexual Orientation Not on file documented as of this encounter Discharge Disposition Disposition Code Departure Means Destination Discharge to home or self care documented in this encounter Plan of Treatment Not on file documented as of this encounter Procedures Procedure Name Priority Date/Time Associated Diagnosis Comments COVID-19 CORONAVIRUS RNA Routine 01/29/2021 12:51 PM CDT Dyskinesia of gallbladder documented in this encounter Results * COVID-19 Coronavirus RNA Nasopharyngeal (01/29/2021 12:51 PM CDT) COVID-19 RNA Not Detected [facility] (MIGUEL) Comment: Testing performed as a component of ??a specimen pool. ??Negative results should be treated as presumptive and, if inconsistent with clinical signs and symptoms or necessary for patient management, pooled samples should be tested individually. Negative results do not preclude SARS-CoV-2 infection and must not be used as the sole basis for patient management decisions. Negative results must be considered in the context of a patient? s recent exposures, history, presence of clinical signs and symptoms consistent with COVID-19. Interpretive Data Synonyms for this test include: PCR and NAAT . ??Testing performed by the [facility] Molecular Infectious Disease Laboratory. The 2019-Novel Coronavirus Assay (COVID-19) Real Time RT-PCR assay is for in vitro diagnostic use under FDA emergency use authorization only. A negative RT-PCR result does not preclude infection with COVID-19 and should not be used as the sole basis for treatment or other patient management decisions. Additional sample types have been validated according to CLIA regulations. ?? Current Interpretive Data was last revised on October 04, 2020. First COVID-19 test? No [facility] ([facility]EL) Comment:Testing performed by : [facility], [address] [facility] [place]., [address] Employeed in healthcare? Unknown [facility] ([facility]EL) Comment:Testing performed by : [facility], [address] [facility] [place] [address] status? Unknown [facility] (MIGUEL) Comment:Testing performed by : [facility], [address] [facility] [place] [address] Group care resident? Unknown [facility] ([facility]EL) Comment:Testing performed by : [facility], [address] [place]., [address] Hospitalized? No PENNIE FELDER (MIGUEL) Comment:Testing performed by : [facility], [address] [facility] [place], [address] Is patient in ICU? No PENNIE FELDER (MIGUEL) Comment:Testing performed by : [facility], [address] [facility] [place], [address] Symptomatic as defined by CDC? No PENNIE FELDER (MIGUEL) Comment:Testing performed by : [facility], [address] [facility] [place], [address] Nasopharyngeal 01/29/2021 12 :51 PM CDT 01/29/2021 8:24 PM CDT Narrative PENNIE FELDER (MIGUEL) - 01/30/2021 5:29 AM CDT What is the reason for testing?->Screening prior to scheduled procedure or surgery Luciano Edwards MD LAB MICROBIOLOGY - GEN ERAL ORDERABLES Final Result PENNIE FELDER (MIGUEL) 1 [facility] Department [place] [address] documented in this encounter Visit Diagnoses Diagnosis Dyskinesia of gallbladder documented in this encounter Care Teams Fountain Jerk Relationship Specialty Start Date End Date Johnna Tinajero MD [address] [place] [address] PCP - General Pediatrics 07/19/19 01/26/23 Johnna Tinajero MD [address] [address] 07/19/19 documented as of this encounter
--- OUTSIDE RECORDS SUMMARY | 2024-08-28 02:12 | XMS_ITS | Referral Summary ---
Author Organization [facility] Address [address] [place] [address] Care Team Providers Care County Nurse Name Role Phone Johnna Tinajero MD Unavailable [phone] Luciano Edwards MD Unavailable Arian Adam MD Unavailable Vicki Johnson Primary Care Pr ovider Allergies Active [...] (01/16/2021): Added automatically from request for surgery [id number] Vomiting without nausea 08/22/2020 Overview (08/22/2020): Added automatically from request for surgery [id number] Vasovagal syncope 10/25/2019 Assessment & Plan (11/06/2019 [...] consult Assessment & Plan (11/05/2019 2:21 PM RIVER TESTER): Nina presented following several syncopal episodes lasting [...] teaching Assessment & Plan (11/04/2019 5:26 PM RIVER TESTER): Nina presented following several syncopal episodes lasting [...] recommendations Assessment & Plan (11/03/2019 5:10 AM RIVER TESTER): Several syncopal episodes lasting seconds to minutes. [...] Clinic Assessment & Plan (11/05/2019 2:18 PM RIVER TESTER): GI was consulted as she was scheduled [...] Clinic Assessment & Plan (11/04/2019 5:27 PM RIVER TESTER): GI was consulted as she was scheduled [...] Clinic Assessment & Plan (09/19/2019 11:51 AM RIVER TESTER): 2 month history of worsening nausea with [...] contrast Assessment & Plan (09/18/2019 12:24 PM RIVER TESTER): 2 month history of worsening nausea with [...] clear. Assessment & Plan (09/17/2019 3:13 PM RIVER TESTER): 2 month history of worsening nausea with [...] week Assessment & Plan (09/16/2019 11:48 AM RIVER TESTER): 2 month history of worsening nausea with [...] week Assessment & Plan (09/15/2019 3:01 PM RIVER TESTER): 2 month history of worsening nausea with [...] prn Assessment & Plan (09/14/2019 1:01 PM RIVER TESTER): 2 month history of worsening nausea with [...] UDS Assessment & Plan (09/13/2019 7:51 PM RIVER TESTER): 2 month history of worsening nausea with [...] 07/20/2019 Assessment & Plan (09/19/2019 10:53 AM RIVER TESTER): Right lower quadrant abdominal pain began in [...] OCP Assessment & Plan (09/18/2019 12:17 PM RIVER TESTER): Right lower quadrant abdominal pain began in [...] OCP Assessment & Plan (09/17/2019 3:13 PM RIVER TESTER): Right lower quadrant abdominal pain began in [...] OCP Assessment & Plan (09/16/2019 11:42 AM RIVER TESTER): Right lower quadrant abdominal pain began in [...] OCP Assessment & Plan (09/15/2019 2:52 PM RIVER TESTER): Right lower quadrant abdominal pain began in [...] OCP Assessment & Plan (09/14/2019 1:00 PM RIVER TESTER): Right lower quadrant abdominal pain began in [...] OCP Assessment & Plan (09/13/2019 7:46 PM RIVER TESTER): Right lower quadrant abdominal pain began in [...] OCP Assessment & Plan (07/23/2019 12:28 PM RIVER TESTER): 19 year old girl with PMH obesity, [...] -encourage oral intake - regular diet, POAL -ELECTRIC OPERATOR following -Scheduled tylenol and toradol q6hr for pain -start OCP with discharge and f/u with gynecology -f/u DHES-A, Testosterone results Assessment & Plan (07/22/2019 9:02 AM RIVER TESTER): 19 year old girl with PMH obesity, [...] amount of free fluid in posterior cul-de-sac -ELECTRIC OPERATOR following -Schd tylenol and toradol q6hr for pain - f/u FSH, LH, prolactin, DHEAS, free and total testerone; if wnl can start OCP Assessment & Plan (07/21/2019 12:42 PM RIVER TESTER): 19 year old girl with PMH obesity, [...] cul-de-sac Assessment & Plan (07/20/2019 1:18 AM RIVER TESTER): 19 year old girl with PMH obesity, [...] 07/20/2019 Assessment & Plan (07/23/2019 12:26 PM RIVER TESTER): History of numerous hospitalizations due to asthma exacerbations in childhood, with several day long stay in PICU 5 or 6 years ago (no intubations). Asthma presently well-controlled on regimen of qHS breo inhaler, with no hospitalizations or exacerbations in last several years. - continue qHS breo - albuterol PRN q4hrs Assessment & Plan (07/22/2019 9:02 AM RIVER TESTER): History of numerous hospitalizations due to asthma exacerbations in childhood, with several day long stay in PICU 5 or 6 years ago (no intubations). Asthma presently well-controlled on regimen of qHS breo inhaler, with no hospitalizations or exacerbations in last several years. - continue qHS breo - albuterol PRN q4hrs Assessment & Plan (07/21/2019 7:29 AM RIVER TESTER): History of numerous hospitalizations due to asthma exacerbations in childhood, with several day long stay in PICU 5 or 6 years ago (no intubations). Asthma presently well-controlled on regimen of qHS breo inhaler, with no hospitalizations or exacerbations in last several years. - continue qHS breo - albuterol PRN q4hrs Assessment & Plan (07/20/2019 1:12 AM RIVER TESTER): History of numerous hospitalizations due to asthma exacerbations in childhood, with several day long stay in PICU 5 or 6 years ago (no intubations). Asthma presently well-controlled on regimen of qHS breo inhaler, with no hospitalizations or exacerbations in last several years. - continue qHS breo - albuterol PRN q4hrs Anxiety 07/20/2019 Assessment & Plan (07/23/2019 12:26 PM RIVER TESTER): Followed by therapist, patient states that therapy [...] qHS Assessment & Plan (07/22/2019 7:17 AM RIVER TESTER): Followed by therapist, patient states that therapy [...] qHS Assessment & Plan (07/21/2019 7:29 AM RIVER TESTER): Followed by therapist, patient states that therapy [...] qHS Assessment & Plan (07/20/2019 1:14 AM RIVER TESTER): Followed by therapist, patient states that therapy [...] Neurology. Assessment & Plan (11/05/2019 2:27 PM RIVER TESTER): Patient with daily headaches for the past [...] 10/01/2021 Assessment & Plan (10/26/2020 2:12 PM RIVER TESTER): Nina is an 20yo with past medical [...] NSAIDs Assessment & Plan (10/25/2020 1:21 PM RIVER TESTER): Nina is an 20yo with past medical [...] NSAIDs Assessment & Plan (10/24/2020 6:08 AM RIVER TESTER): Nina is an 20yo with past medical [...] 10/25/2020 Assessment & Plan (10/25/2020 10:34 AM RIVER TESTER): Hematemesis occurred in setting of intractable vomiting for several day duration. 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 - IV Protonix q 12 hours - Avoid NSAIDs Assessment & Plan (10/24/2020 2:10 AM RIVER TESTER): Hematemesis occurred in setting of intractable vomiting [...] 10/01/2021 Assessment & Plan (10/26/2020 10:30 AM RIVER TESTER): Symptoms of dehydration include decreased urination and delayed capillary refill (identified on exam in ED). She completed a normal saline bolus in the ED. Once she is able to tolerate adequate oral hydration, IV fluids will be discontinued. - Continue mIV fluids Assessment & Plan (10/25/2020 10:35 AM RIVER TESTER): Symptoms of dehydration include decreased urination and delayed capillary refill (identified on exam in ED). She completed a normal saline bolus in the ED. Once she is able to tolerate adequate oral hydration, IV fluids will be discontinued. - Continue mIV fluids Assessment & Plan (10/24/2020 2:11 AM RIVER TESTER): Symptoms of dehydration include decreased urination and delayed capillary refill (identified on exam in ED). She completed a normal saline bolus in the ED. - Continue mIV fluids Mild malnutrition 09/15/2019 08/22/2020 Assessment & Plan (09/19/2019 10:53 AM RIVER TESTER): 15 pound weight loss over several months due to chronic nausea and vomiting with resultant poor appetite. - Manage nausea symptoms - nutrition consult Assessment & Plan (09/18/2019 12:24 PM RIVER TESTER): 15 pound weight loss over several months due to chronic nausea and vomiting with resultant poor appetite. - Manage nausea symptoms - nutrition consult Assessment & Plan (09/17/2019 3:13 PM RIVER TESTER): 15 pound weight loss over several months due to chronic nausea and vomiting with resultant poor appetite. - Manage nausea symptoms - nutrition consult - Consider cyproheptadine Assessment & Plan (09/16/2019 11:43 AM RIVER TESTER): 15 pound weight loss over several months due to chronic nausea and vomiting with resultant poor appetite. - Manage nausea symptoms - nutrition consult - Consider cyproheptadine Assessment & Plan (09/15/2019 3:00 PM RIVER TESTER): 15 pound weight loss over several months [...] Unspecified 02/24/2003,0 2002,2002 Tdap 10/01/2021,03/25/2013 Varicella 02/01/2008,02/24/2003 Social History Tobacco Use Types Packs/Day Years [...] often do you attend chur ch or taoist services? More than 4 times per year 01/13/2023 Do you belong to any clubs o r organizations such as bahai groups, unions, fraternal or athletic groups, or [...] place to sleep or slept in a jail (including now)? No 01/13/2023 Personal Safety Answer Date Recorded Have you ever been in or are you currently in a harmful physical or emotional relationship or is someone making you feel afraid or unsafe? 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 Gender Identity Not on file Sexual Orientation [...] 01/13/2023 2:16 AM CDT Plan of Treatment Not on file Insurance Respiratory MotionDELMER OPEN ACCESS [facility] OPEN ACCESS [employer] [place] [facility] OPEN ACCESS joblocal [facility] Advance Directives For more information, please contact: [phone] Documents on File Type Date Recorded Patient Bone Drier Operator Expl anation ADVANCE DIRECTIVE 02/01/2021 9:08 AM [...] 9:45 PM 07/23/2019 7:58 PM Care Teams County Nurse Relationship Specialty [place] [address] [place] [address] PCP - General Physician Director Community Organization 01/27/23 Johnna Tinajero MD [address] [address] 07/19/19 Luciano Edwards MD [address] [address] Consulting Physician General Surgery 02/01/21 [place] [address] [place] [address] Consulting Physician Gastroenterology 01/15/23
--- OUTSIDE RECORDS SUMMARY | 2024-08-28 02:12 | XMS_ITS | Encounter Summary ---
Author Organization [facility] Address [address] [place] [address] Phone Care Team Providers Care Licensed Mental Health Professional Name Role Phone Johnna Tinajero MD Primary Care Provider + Johnna Tinajero MD Unavailable [phone] Luciano Edwards MD Unavailable [phone] Encounter Details Date Type Department Care Team (Late st Contact Info) Description 04/28/2022 Telephone [facility] [address] [place] [address] Johnna Tinajero MD [address] [place] [address] [address] [place] [address] Social History Tobacco Use Types [...] file 12/2019 PHQ-2 Answer Date Recorded PHQ-2 Total Score (If total score is 3 or more points, staff should administer the PHQ-9) 0 10/09/2021 Comments No Sex and Gender Information Value Date Recorded Sex Assigned at Not on file 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 Discussed the below information with the patient. Symptoms to watch for/continuing: Severe sore throat Large red tonsils covered with pus Swollen lymph nodes in the neck, armpits, and groin Fever for 7 - 14 days Mononucleosis (mono) is caused by the Jose Roberto-Craig virus. This virus is transmitted in infected saliva through coughing, sneezing, and kissing. It can also transfer via shared food and drinks. HOME TREATMENT FOR MONONUCLEOSIS:?? No contact sports or gym class for at least 2-4 weeks due to possible spleen enlargement. On rare occasions, the enlarged spleen will rupture if the abdomen is hit or strained. You may need a repeat evaluation in 2 weeks. Nina denies being in sports, advised just minimal sports-like activity for the next 2-4 weeks. No specific medicine will cure mononucleosis. However, symptoms can usually be reduced by medicines. The pain of swollen lymph nodes, sore throats, and fever over 102F can usually be relieved by appropriate doses of acetaminophen or ibuprofen. Sore Throat Treatment: Older children over age 6 can gargle with warm salt water (1/2 teaspoon of salt per 8 oz glass). Watch for signs and symptoms of dehydration. Call with any questions, problems or concerns, or if does not tolerate instructions. Nina and I reviewed that since she has a heavy work load at [employer] she will discuss with her counselor and see if she needs a letter of accomodation and CB or reach out through [employer] if she does need letter. Continue supportive care and return to the with worsening ST in case secondary infection. CB with worsening or new symptoms, further concerns, or other needs. documented in this encounter Plan of Treatment Not on file documented as of this encounter Visit Diagnoses Not on filedocumented in this encounter Care Teams Licensed Mental Health Professional Relationship Specialty Start Date End Date Johnna Tinajero MD [address] [address] PCP - General Pediatrics 07/19/19 01/26/23 Johnna Tinajero MD [address] [address] 07/19/19 Luciano Edwards MD [address] [address] Consulting Physician General Surgery 02/01/21 documented as of this encounter
--- OUTSIDE RECORDS SUMMARY | 2024-08-28 02:12 | XMS_ITS | Encounter Summary ---
Author Organization [facility] Address [address] [place] [address] Phone Care Team Providers Care Condenser Setter Name Role Phone Johnna Tinajero MD Primary Care Provider + Johnna Tinajero MD Unavailable [phone] Luciano Edwards MD Unavailable [phone] Encounter Details Date Type Department Care Team (Late st Contact Info) Description 12/04/2021 Telephone [facility] [address] [facility] [address] [place] [address] Johnna Tinajero MD [address] [place] [address] [address] [place] [address] Social History Tobacco Use Types [...] on file 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 Gender Identity Not on file Sexual Orientation Not on file documented as of this encounter Miscellaneous Notes * Telephone Encounter - Aileen Garcia - 12/04/2021 3:10 PM CDT PHONE CALL TO NINA REMINDING HER TO GO TO LAB THIS SUMMER * Telephone Encounter - Aileen Garcia - 12/04/2021 3:10 PM CDT ----- Message from Aileen Garcia sent at 11/06/2021 10:34 AM MANAGER AGRICULTURE ----- ----- Message ----- From: SYSTEM Sent: 10/31/2021 12:53 AM MANAGER AGRICULTURE To: Johnna Tinajero MD documented in this encounter Plan of Treatment Not on file documented as of this encounter Visit Diagnoses Not on filedocumented in this encounter Care Teams Condenser Setter Relationship Specialty [place] [address] [place] [address] PCP - General Pediatrics 07/19/19 01/26/23 [place] [address] [place] [address] 07/19/19 Luciano Edwards MD [address] [place] [address] Consulting Physician General Surgery 02/01/21 documented as of this encounter
--- OUTSIDE RECORDS SUMMARY | 2024-08-28 02:12 | XMS_ITS | Encounter Summary ---
Author Organization [facility] Address [address] [place] [address] Phone Care Team Providers Care Box Hinge And Lock Attacher Name Role Phone Johnna Tinajero MD Primary Care Provider + Johnna Tinajero MD Unavailable [phone] Encounter Details Date Type Department Care Team (Late st Contact Info) Description 11/27/2020 Telephone [facility] Pediatric Gastroenterology [facility] 2nd [place] [address] [place] [address] Carlton Garza MD PhD [address] [facility] [address] [place] [address] Social History Tobacco Use Types Packs/Day Years [...] on file 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 documented in this encounter Plan of Treatment Not on file documented as of this encounter Visit Diagnoses Not on filedocumented in this encounter Care Teams Box Hinge And Lock Attacher Relationship Specialty Start Date End Date Johnna Tinajero MD [address] [address] PCP - General Pediatrics 07/19/19 01/26/23 Johnna Tinajreo MD [address] [address] 07/19/19 documented as of this encounter
--- OUTSIDE RECORDS SUMMARY | 2024-08-28 02:12 | XMS_ITS | Encounter Summary ---
Author Organization [facility] Address [address] [place] [address] [address] [place] [address] Phone Care Team Providers Care Power Crane Operator Name Role Phone Johnna Tinajero MD Primary Care Provider + Johnna Tinajero MD Unavailable [phone] Luciano Edwards MD Unavailable [phone] Reason for Visit * Reason Onset Date Comments Vomiting Blood 07/04/2021 Encounter Details Date Type Department Care Team (Late st Contact Info) Description 07/04/2021 Telephone [facility] [address] [place] [address] Johnna Tinajero MD [address] [place] [address] [address] [place] [address] Vomiting Blood Social History Tobacco Use Types Packs/Day Years [...] on file 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 Patient away at [facility]. Started with diarrhea on 07/02 that resolved by end of day. No blood in stool. Early Thursday morning around 0100 patient vomited with small amount of blood in emesis. 16 hours later patient vomited again and emesis has less blood in it than the first time. Patient vomited 2 additional times last night, no blood in emesis. Mom unsure if blood mixed in emesis or in streaks, has limited information since she is not with patient. Patient has hx of vomiting and abdominal pain (sees GI), hersymptoms are otherwise WNL for her. Reviewed with PCP, as long has patient does not continue to have blood in emesis okay to monitor. Likely broken blood vessel that caused blood in emesis initially. If sx return or vomiting and abdominal pain get worse (outside of patient's normal) she should be evaluated. PC to mom, reviewed PCP recommendation. Mom verbalizes understanding and agrees with plan of care. States she will check in with GI to update them on situation as well. Advised to CB for new/worsening sx, questions, concerns, or needs. Mom verbalizes understanding and agrees with plan of care. documented in this encounter Plan of Treatment Not on file documented as of this encounter Visit Diagnoses Not on filedocumented in this encounter Care Teams Power Crane Operator Relationship Specialty Start Date End Date Johnna Tinajero MD [address] [address] PCP - General Pediatrics 07/19/19 01/26/23 Johnna Tinajero MD [address] [id number] 07/19/19 Luciano Edwards MD [address] [id number] Consulting Physician General Surgery 02/01/21 documented as of this encounter
--- OUTSIDE RECORDS SUMMARY | 2024-08-28 02:12 | XMS_ITS | Encounter Summary ---
Author Organization [facility] Healthcare Address [address] [place] [address] Care Team Providers Care Cafe Associate Name Role Phone Johnna Tinajero MD Primary Care Provider + Johnna Tinajero MD Unavailable [phone] Luciano Edwards MD Unavailable [phone] Encounter Details Date Type Department Care Team (Latest Contact Info) Description 02/01/2021 8:53 AM CDT - 02/01/2021 3:27 PM CDT Hospital Encounter [facility] Operating Room [address] [place] [address] Luciano Edwards MD [address] 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 Gender Identity Not on file Sexual Orientation Not on file documented as of this encounter Last Filed Vital Signs Vital Sign Reading Time Taken Comments Blood Pressure 132/73 02/01/2021 2:50 PM CDT Pulse 91 02/01/2021 3:15 PM CDT Temperature 37.7 ??C (99.8 ??F) 02/01/2021 1:25 PM CD T Respiratory Rate 27 02/01/2021 3:15 PM CDT Oxygen Saturation 97% 02/01/2021 3:15 PM CDT Inhaled Oxygen Concentration - - Weight 93.3 kg (205 lb 11 oz) 02/01/2021 9:40 AM CDT Height 160 cm (5' 3 ) 02/01/2021 9:40 AM CDT Body Mass Index 36.44 02/01/2021 9:40 AM CDT Body Mass Index Percentile 97.68% 02/01/2021 9:4 0 AM CDT Growth Chart: [facility] (Girls, 2- 20 Years) documented in this encounter Discharge Diagnoses Diagnosis Other specified diseases of gallbladder - OTHER SPECIFIED DISEASES OF GALLBLADDER Unspecified asthma, uncomplicated - UNSPECIFIED ASTHMA, UNCOMPLICATED Obesity, unspecified - OBESITY, UNSPECIFIED Anxiety disorder, unspecified - ANXIETY DISORDER, UNSPECIFIED Allergy status to penicillin - ALLERGY STATUS TO PENICILLIN Other [facility] (current) drug therapy - OTHER RESEARCH STATISTICIAN (CURRENT) DRUG THERAPY documented in this encounter Discharge Instructions * Discharge Instructions* Sherly Gifford RN - 02/01/2021 1:43 PM CDT [facility] General Surgery Post- Operative Instructions A reasonable amount of activity is encouraged. Patients are able to resume many of their regular activities following surgery. Walking is especially encouraged after surgery. - Walking around the house, block, mall, or on a treadmill. 10-15 minutes 4 times a day. - Please use the incentive spirometer given to you in the hospital for the first 2 days when you get home. Try to perform 2-3 inhalations every 15-20 minutes while awake. - Do not lift anything over 25 pounds for: - The first 4 weeks following laparoscopic surgery or - 4-6 weeks after open abdominal surgery. - No driving until you feel safe to drive AND you are off the prescription pain medication. Eat a bland type diet until you feel able to tolerate a more regular diet. You may have wound glue, steri-strips, clear bandages, sutures, or tim on your incision. Leave these in place until you are seen in the doctor's office for your follow up visit. - It is not unusual to see a small amount of bloody drainage. - Please keep the incision as clean and dry as possible. - You may shower daily when you get home (unless told otherwise), but please avoid tub baths, swimming, or hot tubs for the first 3 weeks or until incisions are completely healed. HERNIA REPAIR PATIENTS: Laparoscopic Abdominal Hernia Repairs: - It is not unusual to notice a bulge in the area of the hernia. The hernia was repaired from the inside. This bulge will gradually absorb and disappear with time. Open and Laparoscopic Inguinal Hernia Repairs: - It is not unusual to notice bruising and swelling in the scrotum and penis after surgery. This isbest treated with: - elevation/ lying down on recliner or couch - compression shorts (1 size smaller) - ibuprofen or naproxen - application of ice packs to the area of incision and scrotum. (This may ultimately take several weeks to resolve) Please continue all of the medications that you were taking prior to surgery unless otherwise directed by your doctor. You may be given a prescription for pain medication to use as directed for severe pain. You may use ssan-bcd-jiljoel ibuprofen 200-600 mg every 6-8 hours as needed for mild to moderate pain and inflammation. Use Chloraseptic spray or lozenges of your choice as needed for sore throat. Use Mylicon (simethicone) 80 mg tablet every 6 hours as needed for excessive gas build up. It is not unusual to have loose bowel movements after surgery. Please do not take any medications to slow your bowel movements unless directed by your physician. If you are constipated after surgery, here are some useful recommendations: - Drink plenty of non-caffeinated beverages. - Senokot- S: take one tablet every 12 hours as needed - Milk of Magnesia: 30ml every 6 hours as needed. Please call for any questions or you notice the following: - Redness or swelling at the operative site - Persistent bleeding through the bandage - Severe pain which is not relieved by the prescribed medications - Temperature above 100.5 degrees and/or severe chilling Your first follow up appointment will be approximately 2 weeks after your surgery. You may see the doctor or the nurse at your follow up appointment. If you do not already have your follow up appointment scheduled, please call the office. documented in this encounter Medications at Time of Discharge albuterol HFA (PROVENTIL HFA,VENTOLIN HFA,PROAIR HFA) 90 mcg/actuation inhaler Inhale 2 puffs every 6 (six) hours as needed for wheezing or shortness of breath cetirizine (ZyrTEC) 10 mg tablet Take 10 mg by mouth daily norgestimate-eth inyl estradiol (ORTHO TRI-CYCLEN LO) 0.18/0.215/0.25 mg-25 mcg per tablet Take 1 tablet by mouth daily 0 08/17/2019 escitalopram (LEXAPRO) 20 mg tabletIndication s:Anxiety Take 1 tablet (20 mg total) by mouth daily 30 tablet 2 10/13/2019 3 fluticasone furoate-vilanter ol (Breo Ellipta) 100-25 mcg/dose diskus inhaler Inhale 1 puff daily 60 each 09/02/2019 3 HYDROcodone-acet aminophen (NORCO) 5-325 mg per tabletIndication s:Pain Take 1-2 tablets by mouth every 4 (four) hours as needed for pain 25 tablet 02/01/2021 2 LORazepam (ATIVAN) 0.5 mg tablet Take 1 tablet (0.5 mg total) by mouth every 6 (six) hours as needed for anxiety (spasms) 10 tablet 02/01/2021 2 metoclopramide (REGLAN) 10 mg tablet Take 1 tablet (10 mg total) by mouth every 6 (six) hours as needed (nausea, vomiting) 14 tablet 09/05/2020 2 neomycin (MYCIFRADIN) 500 mg tabletIndication s:SIBO Take 1 tablet (500 mg total) by mouth 2 (two) times a day 28 tablet 11/23/2020 2 ondansetron (ZOFRAN) 4 mg tablet Take 1 tablet (4 mg total) by mouth every 8 (eight) hours as needed for nausea or vomiting 50 tablet 06/13/2020 2 ondansetron (ZOFRAN) 4 mg tabletIndication s:Prevention of Post-Operative Nausea and Vomiting Take 1-2 tablets (4-8 mg total) by mouth every 6 (six) hours as needed for nausea or vomiting 20 tablet 02/01/2021 3 prochlorperazine (Compazine) 10 mg tablet Take 1 tablet (10 mg total) by mouth every 6 (six) hours as needed for nausea or vomiting Take with benadryl. 30 tablet 2 11/10/2019 2 senna-docusate (PERICOLACE) 8.6-50 mg Take 2 tablets by mouth 2 (two) times a day as needed for constipation May buy over the counter if not covered by insurance. 30 tablet 02/01/2021 2 documented as of this encounter Ordered Prescriptions Prescription Sig Dispense Quantity Refills Last Filled Start Date End Date senna-docusate (PERICOLACE) 8.6-50 mg Take 2 tablets by mouth 2 (two) times a day as needed for constipation May buy over the counter if not covered by insurance. 30 tablet 02/01/2021 2 ondansetron (ZOFRAN) 4 mg tabletIndications :Prevention of Post-Operative Nausea and Vomiting Take 1-2 tablets (4-8 mg total) by mouth every 6 (six) hours as needed for nausea or vomiting 20 tablet 02/01/2021 3 LORazepam (ATIVAN) 0.5 mg tablet Take 1 tablet (0.5 mg total) by mouth every 6 (six) hours as needed for anxiety (spasms) 10 tablet 02/01/2021 2 HYDROcodone-aceta minophen (NORCO) 5-325 mg per tabletIndications :Pain Take 1-2 tablets by mouth every 4 (four) hours as needed for pain 25 tablet 02/01/2021 2 documented in this encounter Discharge Disposition Disposition Code Departure Means Destination Discharge to home or self care documented in this encounter H&P Notes * Luciano Edwards MD - 02/01/2021 10:13 AM CDT Interval Preoperative Note Preoperative Diagnosis: Pre-op Diagnosis * Dyskinesia of gallbladder [K82.8] Assessment I have reviewed the H&P, examined the patient, and endorse the findings as written. Plan of Care : Based on the above findings, I consider Nina Coyne to be an acceptable risk for : Procedure(s): Robotic Assisted Cholecystectomy Preoperative consultation I have discussed in detail the nature, indications, limitations, goals, outcomes, risks (proceduresnonspecific-anesthetic, heart, lung, liver, renal, bleeding, clotting-thromboembolic; procedure specific-bleeding, infection, damage to surrounding structures), benefits, and alternatives (surgical and nonsurgical options) to the proposed procedure, as well as possible sequela and complications. Adjunctive additional nonsurgical and surgical procedures were reviewed. Ponderables and imponderable aspects of the procedures were discussed. Questions were entertained and answered to the apparent satisfaction of the patient / representatives. The patient / family / representatives appear capable to make the decision with their own free well, understand the procedure to the best of their ability,and wish to proceed. Luciano Edwards MD Date: 02/01/2021 Time: 10:13 AM Source Note - Jeff Garcia MD - 02/01/2021 9:59 AM CDT Images from the original note were not included. Anesthesia Evaluation Nina Coyne is a 20 y.o. female Procedure(s): Robotic Assisted Cholecystectomy Pre-Op Diagnosis Codes: * Dyskinesia of gallbladder [K82.8] HISTORY Past Medical History Respiratory + Asthma Musculoskeletal/Pain + Headaches - migraine headaches. Endocrine / Other + Obesity (BMI >30) Functional Capacity Functional capacity: 4-6 METs Review of Systems Pertinent negatives: productive cough; SOB; recent cold/flu and fever Patient Active Problem List Diagnosis ??? History of migraine headaches ??? Obesity ??? Asthma, moderate persistent, well-controlled ??? Abnormal electrocardiography ??? Dander (animal) allergy ??? Vitamin D deficiency ??? Irregular menses ??? Abdominal pain ??? Asthma ??? Anxiety ??? Chronic nausea ??? Vasovagal syncope ??? Vomiting without nausea ??? Vomiting ??? Dehydration ??? Dyskinesia of gallbladder Past Medical History: Diagnosis Date ??? Abdominal pain 07/20/2019 ??? Abnormal electrocardiography 01/19/2017 Annotation: Saw cardiology 2016 and was cleared, repeat 08/25/19 Normal sinus rhythm with sinus arrhythmia with short [place] ??? Anxiety 07/20/2019 ??? Asthma ??? Nausea 08/15/2019 ??? Vomiting multiple times per week Past Surgical History: Procedure Laterality Date ??? LUMBAR PUNCTURE WO INJECTION, THERAPEUTIC N/A 11/04/2019 ??? WRIST SURGERY OB History No obstetric history on file. Allergies Allergen Reactions ??? Dog Dander Hives Reaction: HIVES, ??? Penicillins Other (See comments) and Rash As a child Reaction: NAUSEA;, As a child Med List Status: Nurse Complete Set By: Lili Trammell RN at 01/31/2021 3:59 PM Taking? Last Dose Start Date End Date Provider albuterol HFA (PROVENTIL HFA,VENTOLIN HFA,PROAIR HFA) 90 mcg/actuation inhaler Past Month -- -- ProviderJesus MD cetirizine (ZyrTEC) 10 mg tablet Past Week -- -- ProviderJesus MD escitalopram (LEXAPRO) 20 mg tablet 01/31/2021 10/13/19 -- Johnna Tinajero MD Take 1 tablet (20 mg total) by mouth daily fluticasone furoate-vilanterol (Breo Ellipta) 100-25 mcg/dose diskus inhaler 01/31/2021 09/02/19 -- Johnna Tinajero MD Inhale 1 puff daily metoclopramide (REGLAN) 10 mg tablet More than a month 09/05/20 -- Americo Rodriguez MD Take 1 tablet (10 mg total) by mouth every 6 (six) hours as needed (nausea, vomiting) neomycin (MYCIFRADIN) 500 mg tablet Past Week 11/23/20 -- Madyson Uriostegui NP Take 1 tablet (500 mg total) by mouth 2 (two) times a day norgestimate-ethinyl estradiol (ORTHO TRI-CYCLEN LO) 0.18/0.215/0.25 mg-25 mcg per tablet 01/31/2021 08/17/19 -- Provider, MD Jeuss ondansetron (ZOFRAN) 4 mg tablet 06/13/20 -- Madyson Uriostegui FURNITURE DIPPER Take 1 tablet (4 mg total) by mouth every 8 (eight) hours as needed for nausea or vomiting prochlorperazine (Compazine) 10 mg tablet 11/10/19 -- Nehal Riggs, Take 1 tablet (10 mg total) by mouth every 6 (six) hours as needed for nausea or vomiting Take withbenadryl. No current facility-administered medications for this encounter. Social History Tobacco Use Smoking Status Never Smoker Substance and Sexual Activity Alcohol Use Never Substance and Sexual Activity Drug Use Never Family History Adopted: Yes Family history unknown: Yes Vitals: 02/01/21 0940 BP: 131/89 Pulse: 83 Resp: 16 Temp: 36.2 ??C (97.2 ??F) SpO2: 100% PT: No results found for requested labs within last 720 hours. INR: No results found for requested labs within last 720 hours. APTT: No results found for requested labs within last 720 hours. Hgb A1C: No results found for requested labs within last 720 hours. CBC RBC: No results found for requested labs within last 720 hours. RDW: No results found for requested labs within last 720 hours. MCHC: No results found for requested labs within last 720 hours. MCH: No results found for requested labs within last 720 hours. MCV: No results found for requested labs within last 720 hours. Hct: No results found for requested labs within last 720 hours. Hgb: No results found for requested labs within last 720 hours. WBC: No results found for requested labs within last 720 hours. MPV: No results found for requested labs within last 720 hours. Platelets: No results found for requested labs within last 720 hours. RDW CV: No results found for requested labs within last 720 hours. RDW Sd: No results found for requested labs within last 720 hours. BMP Glucose: No results found for requested labs within last 720 hours. Calcium: No results found for requested labs within last 720 hours. Sodium: No results found for requested labs within last 720 hours. Potassium: No results found for requested labs within last 720 hours. CO2: No results found for requested labs within last 720 hours. Chloride: No results found for requested labs within last 720 hours. BUN: No results found for requested labs within last 720 hours. Creatinine: No results found for requested labs within last 720 hours. STOP-Bang Total Score: 3 DOS Physical Exam Medical history, medications, and allergies reviewed. Attestation: This PAT evaluation 02/01/2021. Anesthesia Plan ASA 1 Planned anesthesia: General Team communication plan: oral ET tube Induction: Induction: intravenous. Postoperative Plan: Postoperative administration opioids intended. No postoperative mechanical ventilation intended. Patient's planned disposition post procedure is Outpatient. Informed Consent: Anesthesia plan and risks discussed with patient. Consent and Attending signature: I and/or my designee have discussed the anesthesia plan, benefits, possible alternatives, parental presence at time of induction (if indicated), and clinically relevant risks that may include dental injury, unintentional awareness, and/or other complications. The patient and/or parent/legal guardian understand, and agree to proceed. All questions answered. documented in this encounter Miscellaneous Notes * Op Note - Luciano Edwards MD - 02/01/2021 11:45 AM CDT SURGERY OPERATIVE NOTE: Luciano Edwards MD, [facility] [address] [place] [id number] Exchange: Cellular: Patient Identifying Information: Patient Name: Nina Coyne Date of : 2000 Primary Physician: Johnna Tinajero MD Referred by: No ref. provider found Title of Operation: Robotic Assisted Cholecystectomy: Date of Operation: 02/01/2021 Indications for Surgery: Nina Coyne presented to preoperative holding area with a history of Pre-Op Diagnosis Codes: * Dyskinesia of gallbladder [K82.8]. An examination and evaluation which included HIDA revealed findings of EF of 22%. The patient now presents for Procedure(s): Robotic Assisted Cholecystectomy after discussing in detail the indications, conduct, limitations, goals, outcomes, risks, benefits, alternatives, potential sequela, potential complications, and possible additional procedures. Recovery scenarios have been discussed. Questions have been entertained and answered to her apparent satisfaction. The patient wishes to proceed. OPERATIVE REPORT: Robotic Assisted Cholecystectomy SURGEON: Luciano Edwards MD SURGICAL TEAM: Surgeon(s) and Role: * Luciano Edwards MD - Primary DATE OF SURGERY : 02/01/2021 PREOPERATIVE DIAGNOSIS: Pre-Op Diagnosis Codes: * Dyskinesia of gallbladder [K82.8] POSTOPERATIVE DIAGNOSIS: Post-op Diagnosis * Dyskinesia of gallbladder [K82.8] PROCEDURE: Robotic Assisted Cholecystectomy ANESTHESIA: General Anesthesiologist: Jeff Garcia MD MANAGER WELLNESS: Elpidio Faith CRNA IMPLANTS: Nothing was implanted during the procedure PREOPERATIVE ANTIBIOTICS: 2g Ancef IV, within one hour of the incision. VTE PROPHYLAXIS: Sequential Compression Devices were administered as per Caprini thromboprophylaxis recommendation form review. INDICATION FOR PROCEDURE: Biliary Dyskinesia OPERATIVE FINDINGS: Operative findings included: 1. Pericholecystic Adhesions: mild 2. Hepatocystic Pyrites Adhesions: mild to mod 3. Critical View of Safety was definitively achieved: yES 4. Cystic Plate to Gallbladder Adhesions: mILD 5. Degree of intrahepatic gallbladder position: mild DESCRIPTION OF OPERATIVE PROCEDURE: The patient was identified evaluated and cleared for surgery by the anesthesia staff. Informed consent was obtained. The patient was delivered to the operating room and placed in the supine position on the operating table. The patient was appropriately padded position supported and secured. Sequential compression pneumatic hose were applied and activated. Prophylactic intravenous antibiotics wereadministered in accordance with the patient's allergy profile. Subcutaneous heparin for deep venousthromboprophylaxis measures were taken as per [facility] Thromboprophylaxis hospital form. General endotracheal anesthesia was induced as per anesthesia record. The abdomen was widely prepped with chlorhexidine and alcohol solution and allowed to dry for the appropriate time interval. The field was sterilely draped in the usual fashion. An iodine plastic protective sheet was placed. Initial laparoscopic access was obtained in the umbilicus. At a point on the superior umbilical rim, local anesthesia cocktail of 0.25% Marcaine with 1: 200,000 epinephrine, and 1% lidocaine with 1:100,000 epinephrine was instilled subcutaneously and intradermally. A transverse skin incision was fashioned with a scalpel and dissection was carried through into the subcutaneous tissue. The 5 mm nonbladed Ethicon port was then used to gain access the peritoneal cavity. The video laparoscope was placed into the port and the port was passed through each layer of the abdominal wall under direct videoscopic guidance and this was used to guide the tip of the port into the peritoneal cavity and avoid any injury to the bowel or solid organ. This was performed without difficulty or apparent complication. The trocar was removed from the port and the laparoscopic exploration was performed. There was no evidence of intra-abdominal organ, visceral, or vascular organ injury. A carbon dioxide pneumoperitoneum was set to a maximum pressure of 15 mm of mercury. Initial videoscopic inspection of the peritoneal cavity demonstrated it to be a suitable candidate for the laparoscopic procedure. Local anesthesia cocktail of 0.25% Marcaine with 1: 200,000 epinephrine, and 1% lidocaine with 1:100,000 epinephrine was instilled subcutaneously and intradermally into the skin of a point approximately along the axillary line above the level of the umbilicus.. A transverse skin incision was made. The 8 mm non bladed robotic port was placed on direct visualization port without complication. An 8 mm robotic port was placed along the right midclavicular line just above the level of the umbilicus. Local anesthetic cocktail was instilled into the intradermally and subcutaneously, a transverse skin incision was made, and the 8 mm non bladed direct visualization port was placed into the peritoneal cavity, this was done without complication or incident. An 8 mm robotic port was placed along the left midclavicular line just above the level of the umbilicus. Local anesthetic cocktail was instilled into the intradermally and subcutaneously, a transverse skin incision was made, and the 8 mm non bladed direct visualization port was placed into the peritoneal cavity, this was done without complication or incident. To facilitate maximum filtration, and in line ULPA filter was placed and attached to the house suction unit and connected to the anterior axillary port. The Da Carl Xi robotic patient cart was then brought onto the field and docked in a perpendicular fashion precisely aligning the cross hairs of the citing mechanism to the camera port. The operatingtable was placed in reverse Trendelenburg position The camera port was docked and the camera was inserted into the patient's abdomen. The Da Carl Xi patient cart robotic arms were then aligned usingthe laser guidance sighting mechanism. The instruments were inserted and advanced under direct videoscopic guidance. A video laparoscopic exploration was performed. Necessary adhesions were lysed to free up the gallbladder from the surrounding organs and tissues. The operative field was deemed suitable for the completion of the procedure. The fundus of the gallbladder was grasped and elevated. Pericholecystic adhesions as described in operative findings were noted. Adhesions were taken down and the gallbladder was elevated cephalad and anteriorly. Further adhesions were taken down as necessary to allow the identification of the infundibulum. Theinfundibulum was grasped. The infundibulum was retracted in such a way as to optimize the 3 dimensional stretch on the hepatocystic triangle. The hepatocystic triangle was noted to have a degree of inflammation inflammation as described in operative findings. The cystic artery and cystic duct were each identified by carefully dissecting layer by layer the overlying omentum and fibro fatty tissue from anterior and posterior views of the hepatocystic triangle. Extreme care was taken to stay lateral especially in the initial phase of the dissection to prevent any injury to the tami hepatis structures including the common bile duct. The cystic artery andcystic duct were each isolated and skeletonized completely. The gallbladder was dissected free of the gallbladder fossa at its most posterior aspect over 1/4 of the length of the gallbladder. The critical view of safety such that the cystic artery and cystic duct were each identified as the only str uctures emanating from the tami hepatis and going to the gallbladder was definitively achieved. The cystic artery and cystic duct were each carefully inspected. The robotic Weck clip flight reservations manager was used to apply 2 clips medially 1 clip laterally to the cystic duct. The clips covered the width of the cystic duct appropriately. A single orifice was noted at the cystic duct cut surface. The cystic duct was divided with the robotic scissors. The cystic artery was isolated and clipped with 2 clips medially 1 clip laterally with the robotic Weck clip flight reservations manager. The cystic artery was divided. The gallbladder then mobilized from the gallbladder fossa with the degree of adhesions and intra hepatic position as described. Multiple checks for hemostasis were made during this mobilization. The gallbladder was ultimately removed from the gallbladder fossa via a dilated umbilical port incision. It was transferred to a laparoscopic retrieval bag which was introduced through the 8 mm umbilical port incision and extracted t hrough the same. The 8 mm port was replaced and the pneumoperitoneum was reestablished. A thorough Inspection, irrigation, aspiration, and cauterization was performed to achieve hemostasis. Final inspection demonstrated no evidence of bile leak. Under direct videoscopic guidance a bisubcostal TAP (Transversus Abdominus Plane) Block was placed with 0.25 % Bupivicaine with epinephrine, \for postoperative analgesia. Please see the PerioperativeNursing note for precise volumes of the medications. The 8 mm umbilical port site was closed at the fascial level utilizing the Mik-Debbi closure device. 0 Vicryl suture was placed with the Mik Thomasanna needle passer across the fascia in the usual fashion under direct videoscopic guidance and tied securely under direct videoscopic guidance. A secure closure was completed. A final inspection was performed. The operative field was deemed suitable for completion of the procedure. The carbon dioxide pneumoperitoneum was released and the ports were removed. The subcutaneous tissue at the port sites was closed with interrupted 3 0 Vicryl. All ports then received subcuticular 4 Monocryl suture followed by the placement of Dermabond skin glue. Sponge instrument and needle counts were reported correct at the appropriate times according to institutional procedure and protocol. The patient was allowed to emerge from anesthesia and was taken to recovery room under the auspicesof the anesthesia service. ESTIMATED BLOOD LOSS: less than 100 mL SPECIMENS: Order Name Source Comment Collection Info Order Time COVID-19 CORONAVIRUS RNA 01/29/2021 12:46 PM Is the patient experiencing any symptoms consistent with COVID (eg. Fever, cough, shortness of breath)? No What is the reason for testing? Screening prior to scheduled procedure or surgery Is the patient hospitalized? No Is the patient admitted to an ICU? No Is this the first COVID-19 test for this patient? No Does the patient currently work in a healthcare facility with direct patient contact? Unknown Is the patient a resident of a congregate care or living setting? Unknown Is the patient ? Unknown SURGICAL PATHOLOGY Gallbladder Placed in formalin at end of case Collected By: DanielG. Edwards MD 02/01/2021 12:59 PM DRAINS: None TOTAL IV FLUIDS: per anesthesia record COMPLICATIONS: None, patient tolerated the procedure well. DISPOSITION: PACU - hemodynamically stable. CONDITION: good Luciano Edwards MD, FACS Date: 02/01/2021 Time: 2:25 PM CC: REFERRING PHYSICIAN: ATTENDING PHYSICAN: Luciano Edwards,* * Pre-Procedure Note - Paty Blank PA - 01/25/2021 10:40 AM CDT Patient's mother instructed for patient to go for COVID testing to [facility] 01/29 or 01/30. She verbalizes understanding. Order placed by me. Results to be reviewed prior to surgery. Paty Blank PA-C [facility] [phone] documented in this encounter Plan of Treatment Not on file documented as of this encounter Procedures Procedure Name Priority Date/Time Associated Diagnosis Comments SURGICAL PATHOLOGY Routine 02/01/2021 12 :33 PM CDT Dyskinesia of gallbladder XI CHOLECYSTECTOMY, MULTIPORT - LAPAROSCOPIC ROBOTIC 02/01/2021 11:07 AM CDT Dyskinesia of gallbladder POCT HCG, URINE Routine 02/01/2021 10:01 AM CDT documented in this encounter Results * Surgical pathology (02/01/2021 12:33 PM CDT) Tissue (Gallbladder) 02/01/2021 12:33 PM CDT Comment:Placed in formalin a t end of case Narrative PATHOLOGY [facility] - 02/05/2021 12:14 PM CDT [address], [place], [place] ??[address] Tele: ?? Yakelin Rodriguez MD - Diplomatic Interpreter/Translatorneurological surgery teacher PATHOLOGY REPORT Patient Name: ??NINA COYNE Address: ??[address] [place] [address]64 Gender: ??F : ??2000 (Age: 20) Service: ??Surgery Location: ??A15, ?? Hospital #: ??[id number] Patient Type: ??[facility] SAME DAY SURGERY Accession #: ? [id number] Taken: ? 02/01/2021 Received ? 02/01/2021 Reported: ? 02/05/2021 Physician(s): ? Luciano Edwards M.D. Johnna Tinajero M.D. DIAGNOSIS: Gallbladder, laparoscopic cholecystectomy: ? - No histopathologic abnormality [facility]/02/05/2021 12:14 Examining Pathologist: Nehal Abarca M.D. Report Reviewed and Electronically Signed By ??Nehal Abarca M.D. SPECIMEN TYPE: A: GALLBLADDER CLINICAL IMPRESSION AND HISTORY: Dyskinesia gallbladder. GROSS DESCRIPTION: Received in a container of formalin labeled with the patient's name Nina Coyne and gallbladder is a 5.5 x 3.2 x 2.4 cm gallbladder. ??The serosa is unremarkable. ??The gallbladder is opened and displays green, velvety, unremarkable mucosa and a wall thickness of 0.2 cm. ??Located in the gallbladder is green yellow bile without gallstones. ??The contents in a container, filtered, yielding no gallstones. ??Grain Commodity Manager sections are submitted in cassette A1. [facility]/02/04/2021 10:28 ? [facility] MICROSCOPIC DESCRIPTION: Sections of the gallbladder are unremarkable. ??There is no inflammation or hypertrophy of the muscularis. ??An unremarkable lymph node is noted. Clerical Data Follows A; 70488 REPORT IMAGES AND/OR SCANNED DOCUMENTS ONLY VIEWABLE IN PDF FORMAT The immunohistochemical test(s) cited in this report, if any, was developed and its performance characteristics determined by [facility] Pathology Department. ??It has not been cleared or approved by the U.S. Food and Drug Administration. ??The FDA has determined that such clearance or approval is not necessary. ??This test is used for clinical purposes. ??It should not be regarded as investigational or for research. ??[facility] Laboratory is certified under the Clinical Laboratory Improvement Amendments of 1988 (CLIA) as qualified to perform high complexity testing. ??Immunostains were performed on formalin-fixed paraffin embedded tissue using a polymer diaminobenzidine chromogen detection system. Antibodies used may include clone SP1 (rabbit monoclonal, estrogen receptor), clone 1E2 (rabbit monoclonal progesterone receptor), Ki-67 (rabbit monoclonal, 30-9), and CD117 (rabbit polyclonal, c-kit). Luciano Edwards MD LAB PATHOLOGY ORDERABL ES Final Result PATHOLOGY [facility] Laboratory Receiving [address] [place] [address] * POCT hCG, urine (02/01/2021 10:01 AM CDT) Pathologist [facility] HCG, ur, POC Negative Lot Number [id number] QC Backgroud Clear Acceptable QC Control Line Acceptable Urine 02/01/2021 10:0 1 AM CDT Jeff Garcia MD POINT OF CARE TEST ORDER KATHERINE Final Result * COVID-19 Coronavirus RNA Nasopharyngeal (01/29/2021 12:51 PM CDT) Pathologist [facility] COVID-19 RNA Not Detected [facility] ([facility]) Comment: Testing performed as a [...] and NAAT . ??Testing performed by the [facility] Molecular Infectious Disease Laboratory. The Novel Coronavirus Assay (COVID-19) Real Time RT-PCR assay [...] [facility] ([facility]) Comment:Testing performed by : [facility], [address] [place] [address], [id number] Employeed in healthcare? Unknown [facility] ([facility]) Comment:Testing performed by : [facility], [address] [place] [address], [address] status? Unknown [facility] ([facility]) Comment:Testing performed by : [facility], [address] [place] [address], [address] Group care resident? Unknown [facility] ([facility]) Comment:Testing performed by : [facility], [address] [place] [address], [address] Hospitalized? No [facility] ([facility]EL) Comment:Testing performed by : [facility], [address] [place] [address], [address] Is patient in ICU? No [facility] ([facility]) Comment:Testing performed by : [address], [address] Symptomatic as defined by CDC? No [facility] ([facility]) Comment:Testing performed by : [address], [address] Nasopharyngeal 01/29/2021 12 :51 PM CDT 01/29/2021 8:24 PM CDT Narrative [facility] ([facility]) - 01/30/2021 5:29 AM CDT What is the reason for testing?->Screening prior to scheduled procedure or surgery us Luciano Edwards MD LAB MICROBIOLOGY - GEN ERAL ORDERABLES Final Result [facility]) [facility] Department [place] [address] documented in this encounter Visit Diagnoses Diagnosis Dyskinesia of gallbladder- Primary Dyskinesia of gallbladder Dyskinesia of gallbladder documented in this encounter Admitting Diagnoses Diagnosis Dyskinesia of gallbladder documented in this encounter Administered Medications Inactive Administered Medications - up to 3 most recent administrations Medication Order MAR Action Action Date Dose Rate Site acetaminophen (TYLENOL) tablet 1,000 mg 1,000 mg, oral, Once, On Thu02/01/21 at 1045, For 1 dose, Pre-Op, Indications: Pre-Emptive AnalgesiaIndications:Pre-Emptiv e Analgesia Given 02/01/2021 10:06 AM CDT 1,000 mg dimenhyDRINATE (DRAMAMINE) tablet 25 mg 25 mg, oral, Once, On Thu02/01/21 at 1045, For 1 dose, Pre-Op, Indications: Prevention of Nausea and VomitingIndications:Prevention of Nausea and Vomiting Given 02/01/2021 10:06 AM CDT 25 mg gabapentin (NEURONTIN) capsule 300 mg 300 mg, oral, Once, On Thu02/01/21 at 1045, For 1 dose, Pre-Op, Indications: Pre-Emptive AnalgesiaIndications:Pre-Emptiv e Analgesia Given 02/01/2021 10:06 AM CDT 300 mg Lactated Ringer's (LR) infusion 30 mL/hr, intravenous, Continuous, Starting on Thu02/01/21 at 1045, Pre-Op New Bag 02/01/2021 11:56 AM CDT Rate/Dose Verify 02/01/2021 11:09 AM CDT 30 mL/ hr New Bag 02/01/2021 10:06 AM CDT 30 mL/hr 30 mL/hr documented in this encounter Discontinued Medications Medication Sig Discontinue Reason Start Date End Da te hyoscyamine (LEVSIN) 0.125 mg SL tabletIndications:Urinar y Incontinence Take 1 tablet (0.125 mg total) by mouth every 4 (four) hours as needed for cramping Therapy completed 11/23/2020 01/31/2021 documented as of this encounter Active and Recently Administered Medications Times are shown in CDT. Scheduled Medication Order 01/30/2021 01/31/2021 02/01/2021 acetaminophen (TYLENOL) tablet 1,000 mg (COMPLETED) 1,000 mg, oral, Once, On Thu02/01/21 at 1045, For 1 dose, Pre-Op, Indications: Pre-Emptive Analgesia 1006 (Given - Provid er: Ana Saini RN) ceFAZolin (ANCEF) 2,000 mg/20 mL in sterile water (premix) 2,000 mg (COMPLETED) 2,000 mg, intravenous, at 400 mL/hr, Administer over 3 Minutes, Once, On Thu02/01/21 at 1100, For 1 dose, Pre-Op, Indications: Prophylaxis, Surgical 1119 (Given - Provid er: Jeff Garcia MD) dimenhyDRINATE (DRAMAMINE) tablet 25 mg (COMPLETED) 25 mg, oral, Once, On Thu02/01/21 at 1045, For 1 dose, Pre-Op, Indications: Prevention of Nausea and Vomiting 1006 (Given - Provid er: Ana Saini RN) gabapentin (NEURONTIN) capsule 300 mg (COMPLETED) 300 mg, oral, Once, On Thu02/01/21 at 1045, For 1 dose, Pre-Op, Indications: Pre-Emptive Analgesia 1006 (Given - Provid er: Ana Saini RN) indocyanine green (IC-GREEN) injection 5 mg 5 mg, intravenous, Once, On Thu02/01/21 at 1100, For 1 dose, Pre-Op/Floor, Preoperative Robotic Cholecystectomy Rapid IV push, Indications: Preoperative Robotic Cholecystectomy 1100 (Due) Continuous Medication Order 01/30/2021 01/31/2021 02/01/2021 Lactated Ringer's (LR) infusion 30 mL/hr, intravenous, Continuous, Starting on Thu02/01/21 at 1045, Pre-Op 1006 (New Bag - Prov ider: Ana Saini RN)1109 (Rate/Dose Verify - Provider: Jeff Garcia MD)1155 (Paused - Provider: Jeff Garcia MD - Comment: Switch to gravity)1156 (New Bag - Provider: Jeff Garcia MD)1323 (Anesthesia Volume Adjustment - Provider: Elpidio Faith CRNA) PRN Medication Order 01/30/2021 01/31/2021 02/01/2021 bupivacaine 0.25% with EPINEPHrine 1:200,000 and lidocaine 1% with EPINEPHrine 1:100,000 solution 60 mL (CANCELED) As needed, Starting on Thu02/01/21 at 1228, Intra-Op 1228 (Given - Provid er: Luciano Edwards MD) bupivacaine-EPINEPHrine (MARCAINE with EPI) 0.25 %-1:200,000 preservative free injection (CANCELED) As needed, Starting on Thu02/01/21 at 1234, Intra-Op 1234 (Given - Provid er: Luciano Edwards MD) dextrose (D10W) 10% bolus 250 mL 250 mL, intravenous, at 1,000 mL/hr, Administer over 15 Minutes, Once as needed, blood glucose less than 70 mg/dL, Starting on Thu02/01/21 at 1000, Pre-Op, Indications: Hypoglycemia lidocaine PF (XYLOCAINE) 10 mg/mL (1 %) preservative free injection 2-10 mg 2-10 mg (0.2-1 mL), other, Once as needed, pain with IV placement, Starting on Thu02/01/21 at 1000, For 1 dose, Pre-Op, Administer volume needed to infiltrate IV site. sodium chloride 0.9% flush 0.5-20 mL 0.5-20 mL, intra-catheter, As needed, line care, Starting on Thu02/01/21 at 1000, Pre-Op, Flush volume based on line type and size. Flush before and after each use. sodium chloride 0.9% irrigation (CANCELED) As needed, Starting on Thu02/01/21 at 1153, Intra-Op 1153 (Given - Provid er: Luciano Edwrads MD - Comment: prn on field for irrigation)1259 (Given - Provider: Luciano Edwards MD - Comment: for suction irrigation) documented in this encounter Orders Medications Ordered That Jonny ht Not Have Been Administered Count Last Ordered Date First Ordered Date albuterol 2.5 mg /3 mL (0.08 3 %) nebulizer solution 2.5 mg 1 02/01/2021 bupivacaine 0.25% with EPINE PHrine 1:200,000 and lidocaine 1% with EPINEPHrine 1:100,000 solution 60 mL 1 02/01/2021 bupivacaine-EPINEPHrine (MAR BRYAN with EPI) 0.25 %-1:200,000 preservative free injection 1 02/01/2021 ceFAZolin (ANCEF) 2,000 mg/2 0 mL in sterile water (premix) 2,000 mg 1 02/01/2021 dextrose (D10W) 10% bolus 250 mL 1 02/02/20 diphenhydrAMINE (BENADRYL) i njection 12.5 mg 1 02/01/2021 fentaNYL (SUBLIMAZE) preserv ative free injection 25 mcg 1 02/01/2021 haloperidol (HALDOL) 5 mg/mL injection - ADS Override Pull 1 02/01/2021 haloperidol (HALDOL) injection 1 mg 1 02/01 HYDROmorphone (DILAUDID) injection 0.4 mg 1 02/01/2021 indocyanine green (IC-GREEN) injection 5 mg 1 02/01/2021 insulin lispro (HumaLOG, ADM ELOG) 100 unit/mL injection 1-5 Units 1 02/01/2021 labetaloL (NORMODYNE,TRANDAT E) injection 5 mg 1 02/01/2021 lidocaine PF (XYLOCAINE) 10 mg/mL (1 %) preservative free injection 2-10 mg 1 02/01/2021 meperidine (DEMEROL) preserv ative free injection 12.5 mg 1 02/01/2021 naloxone (NARCAN) 0.4 mg/mL injection 0.04-0.4 mg 1 02/01/2021 ondansetron (ZOFRAN) 4 mg/2 mL injection - ADS Override Pull 1 02/01/2021 ondansetron (ZOFRAN) injection 4 mg 1 02/01 oxyCODONE (ROXICODONE) tablet 5 mg 1 2020 racepinephrine (ASTHMANEFRIN ) 2.25 % nebulizer solution 0.5 mL 1 02/01/2021 sodium chloride 0.9% flush 0.5-20 mL 1 11/2020 sodium chloride 0.9% irrigation 1 Diet Count Last Ordered Date First Orde red Date ADULT DISCHARGE DIET 1 02/01/2021 Nursing Count Last Ordered Date First Orde red Date FOLLOW UP WITH ESTABLISHED PROVIDER 1 02/01 NURSING COMMUNICATION 11 02/01/2021 documented in this encounter Care Teams Cafe Associate Relationship Specialty Start Date End Date Johnna Tinajero MD [address] [address] PCP - General Pediatrics 07/19/19 01/26/23 Johnna Tinajero MD [address] [address] 07/19/19 [place] [address] [place] [address] Consulting Physician General Surgery 02/01/21 documented as of this encounter
--- OUTSIDE RECORDS SUMMARY | 2024-08-28 02:12 | XMS_ITS | Encounter Summary ---
Author Organization [facility] Address [address] [place] [address] Phone Care Team Providers Care Racing Mechanic Name Role Phone Johnna Tinajero MD Primary Care Provider + Johnna Tinajero MD Unavailable [phone] Encounter Details Date Type Department Care Team (Late st Contact Info) Description 11/23/2020 Orders Only [facility] Pediatric Gastroenterology [facility] 2nd [place] [address] [place] [id number] Madyson Uriostegui, SOAP SLABBER [address] [facility] [address] [place] [address] Social History Tobacco Use Types [...] on file 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 Gender Identity Not on file Sexual Orientation Not on file documented as of this encounter Ordered Prescriptions Prescription Sig Dispense Quantity Refills Last Filled Start Date End Date neomycin (MYCIFRADIN) 500 mg tabletIndications: SIBO Take 1 tablet (500 mg total) by mouth 2 (two) times a day 28 tablet 11/23/2020 10/01/2021 rifAXIMin (Xifaxan) 550 mg tabletIndications: SIBO Take 1 tablet (550 mg total) by mouth 3 (three) times a day for 14 days 42 tablet 11/23/2020 12/07/2020 documented in this encounter Progress Notes * Madyson Uriostegui NP - 11/23/2020 2:19 PM CDT Sent in another 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 Consultation w/ adult GI at [facility] suggested the following providers work with recurrent SIBO Luiz De Dios, Jason Rodriguez, Naa , Taurus Huerta. Sent message to Dr. Garza to see if he'd prefer Nina see adult provider. ?? documented in this encounter Plan of Treatment Not on file documented as of this encounter Visit Diagnoses Not on filedocumented in this encounter Discontinued Medications Medication Sig Discontinue Reason Start Date End Da te Xifaxan 550 mg tablet TAKE 1 TABLET BY MOUTH THREE TIMES DAILY FOR 14 DAYS Reorder 10/02/2020 11/23/2020 documented as of this encounter Care Teams Racing Mechanic Relationship Specialty Start Date End Date Johnna Tinajero MD [address] [address] PCP - General Pediatrics 07/19/19 01/26/23 Johnna Tinajero MD [address] [address] 07/19/19 documented as of this encounter
--- OUTSIDE RECORDS SUMMARY | 2024-08-28 02:12 | XMS_ITS | Encounter Summary ---
Author Organization [facility] Address [address] [place] [address] Care Team Providers Care Analytics Senior Manager Name Role Phone Johnna Tinajero MD Primary Care Provider + Johnna Tinajero MD Unavailable [phone] Luciano Edwards MD Unavailable [phone] Arian Adam MD Unavailable [phone] Vicki Johnson Primary Care Pr ovider Encounter Details Date Type Department Care Team (Late st Contact Info) Description 01/03/2021 Telephone [facility] - Imaging [address] [place] [address] [place] [address] [place] [address] Social History Tobacco Use Types Packs/Day Years [...] on file 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 Gender Identity Not on file Sexual Orientation Not on file documented as of this encounter Plan of Treatment Not on file documented as of this encounter Visit Diagnoses Not on filedocumented in this encounter Care Teams Analytics Senior Manager Relationship Specialty Start Date End Date Jonhna Tinajero MD [address] [address] PCP - General Pediatrics 07/19/19 01/26/23 [place] [address] [place] [address] PCP - General Physician Credit Administration Manager 01/27/23 Johnna Tinajero MD [address] [address] 07/19/19 Luciano Edwards MD [address] [address] Consulting Physician General Surgery 02/01/21 [place] [address] [place] [address] Consulting Physician Gastroenterology 01/15/23 documented as of this encounter
--- OUTSIDE RECORDS SUMMARY | 2024-08-28 02:12 | XMS_ITS | Encounter Summary ---
Author Organization [facility] Healthcare Address [address] [place] [address] Care Team Providers Care Wood Crew Supervisor Name Role Phone Johnna Tinajero MD Primary Care Provider + Johnna Tinajero MD Unavailable [phone] Luciano Edwards MD Unavailable [phone] Reason for Visit * Reason Comments Abdominal Pain Vomiting Nausea * Auth/Cert (Routine) Specialty Diagnoses / Procedures Referred By [place] Referred To Contact Diagnoses RLQ abdominal pain Intractable abdominal pain Procedures na Referral ID Status Reason Start Date Expiration Date Visits Re quested Visits Authorized [id number] 1 1 Encounter Details Date Type Department Care Team (Late st Contact Info) Description 01/14/2023 8:00 AM CDT - 01/14/2023 8:45 AM CDT Surgery [facility] [place] [id number] Romie Pradhan, DO [address] [place] [address] CAPSULE ENDOSCOPY Surgery Details Date/Time Status Location OR Service Patient Class Case Class Case Type Trauma Case? 01/14/2023 8:00 AM Posted [facility] ENDOSCOPY GI BEDSIDE Gastroenterology Inpatient Urgent - 24 hours Panel 1 Procedure LRB Anes Op Region Wound Class Comments CAPSULE ENDOSCOPY N/A Choice Stomach Surgeon Surgeon Role Service Panel Romie Pradhan, DO Primary Gastroenterology 1 documented in this encounter Social History Tobacco Use Types Packs/Day Years [...] often do you attend chur ch or congregational services? More than 4 times per year 01/13/2023 Do you belong to any clubs o r organizations such as orthodox groups, unions, fraternal or athletic groups, or [...] place to sleep or slept in a fci (including now)? No 01/13/2023 Personal Safety Answer Date Recorded Have you ever been in or are you currently in a harmful physical or emotional relationship or is someone making you feel afraid or unsafe? 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 Gender Identity Not on file Sexual Orientation Not on file documented as of this encounter Last Filed Vital Signs Vital Sign Reading Time Taken Comments Blood Pressure 106/64 01/14/2023 12:18 AM CDT Pulse 101 01/14/2023 12:18 AM CDT Temperature 37.1 ??C (98.7 ??F) 01/14/2023 12:18 AM C DT Respiratory Rate 18 01/14/2023 12:18 AM CDT Oxygen Saturation 98% 01/14/2023 12:18 AM CDT Inhaled Oxygen Concentration - - Weight 95.3 kg (210 lb 1.6 oz) 01/13/2023 2:16 A M CDT Height 160 cm (5' 3 ) 01/13/2023 2:16 AM CDT Body Mass Index 37.22 01/13/2023 2:16 AM CDT documented in this encounter Discharge Summaries * Shawn Blum, - 01/15/2023 11:08 AM CDT Inpatient Discharge Summary BRIEF OVERVIEW Patient Name - Nina Coyne Patient Age - 22 yrs Patient - [id number] [facility] - [id number] Document Creation Date: 01/15/2023 Admitting Provider, : Alberto Johnson MD Discharge Provider, : Shawn Blum DO Primary Care Physician at Discharge: Johnna Tinajero MD [phone] Treatment Team: Consulting Physician: Romie Pradhan DO Admission Date: 01/12/2023 Discharge Date/time: 01/15/2023 Admission Location: [facility] LOS - LOS: 2 days DETAILS [...] unremarkable for age. Mild bladder wall thickening likelyreflects incomplete distention. Cystitis could be considered in the appropriate clinical setting. Th e bladder is otherwise unremarkable. The vascular structures are normal. There are no enlarged lymph nodes in the abdomen/pelvis. The bones are unremarkable. There is a stable tiny fat-containing ventral hernia adjacent to the umbilicus. The bowel is unremarkable without wall thickening, increased enhancement, or adjacent inflammation. A normal appendix is identified without adjacent inflammation. Appendicitis is excluded. 1. Status post cholecystectomy. 2. [...] K/cumm 299 322 Recent Labs Lab Units 01/13/2343201/12/232246 WBC K/cumm 6.5 6.9 HEMOGLOBIN g/dL 11.9 [...] mg/dL 10 9 CREATININE mg/dL 0.75 0.79 [id number] mL/min/1.73 m2 117 110 GLUCOSE mg/dL 86 [...] Adult Diet Regular Diet effective now Question: ([facility]) Diet type Answer: Regular 01/14/231908 Allergies: Dog [...] 2 puffs, inhalation, Every 6 hours PRN (emergency response coordinator) cetirizine 10 mg tablet Commonly known as: ZyrTEC 10 mg, oral, Daily doxepin 25 mg capsule Commonly known as: SINEquan 50 mg, oral, Nightly fluticasone furoate-vilanteroL 100-25 mcg/dose diskus inhaler Commonly known as: BREO ELLIPTA 1 puff, inhalation, Daily (emergency response coordinator), Rinse mouth with water after use. Do [...] Your Medications These medications were sent to [facility] [address] [place] [address] [address] [facility] [address] [facility] [address] prochlorperazine 5 mg tablet Outpatient Follow-Up: Contact Information for Follow-ups Tyra Adam MD Specialty: Gastroenterology, Internal Medicine Relationship: Consulting Physician Barbara DIXONSebastian [place] [phone] Next Steps: Follow up Instructions: Call provider for an appointment to follow up within 1 week Questions: Instructions for follow-up (appointment date and time): Call provider for an appointment to follow up within 1 week To provider: TYRA ADAM Please schedule an appointment with the following provider(s): Tyra Adam MD Barbara RASCONFALGUNI [place] [phone] Call provider for an appointment to follow [...] Patient Emergency Contact: Primary Emergency Contact: Vicki Coyne, Omar Immunization Status at Discharge Immunization History Administered Date(s) Administered DTaP 2002, 2002, 2002, 02/24/2003, 02/23/2006 HPV9 02/22/2015, 12/06/2015, 06/09/2016 Hep A, Unspecified 03/30/2007, 02/01/2008 Hep B Vaccine 2002, 2002, 2002 HiB 2002, 2002, 2002, 02/24/2003 IPV 2002, 2002, 2002, 02/23/2006 Influenza, Quadrivalent, Cell Culture-based MDCK, Preservative Free, Antibiotic Free, Mnlebakwpnbfb16/22/2020 Influenza, Quadrivalent, Split, Preservative Free, Intramuscular 06/09/2016, [...] PM CDT I agree with findings/assessment/plan in PA/VEHICLE MODIFICATION TECHNICIAN note with the following caveats: RLQ pain and blood in stool--colonoscopy and imaging results noted Awaiting VCE report read Please call with questions/concerns,will follow Joo Napier MD * Miguelito Blumian [place], - 01/14/2023 12:05 PM CDT General Medicine [...] she's been fairly miserable for months now. Matthew hasn't been helping much so we'll try [...] Moderate Disposition: Likely DC home tomorrow Shawn Blum DO, MS, FACP, FACOI I spent greater than [...] or family members viewing this note through Aneumedhart access: This note was written as a [...] 8:15 today. ANAIS Blue Cosigned by Romie Pradhan DO at 01/14/2023 12:11 PM CDT * Yamile Don, GERSON - 01/13/2023 2:52 PM CDT Initial Nutrition [...] sinus rhythm with sinus arrhythmia with short OH Anxiety 07/20/2019 Asthma Biliary dyskinesia Migraine headache [...] obvious between folds of skin Muscle Loss [place] - Temporalis Muscle: Can see/feel well-defined [...] of care Yamile Don RD,LD * Tyra Aadm MD - 01/13/2023 11:03 AM CDT Pt [...] sinus rhythm with sinus arrhythmia with short OH Anxiety 07/20/2019 Asthma Biliary dyskinesia Migraine headache [...] Denies: rash or edema Objective Vitals: Vitals: 01/13/23215 BP: 133/90 Pulse: 78 Resp: 18 Temp: 36.9 ??C (98.5 ??F) SpO2: 90% 24hr Min/Max: Temp Min: 36.7 ??C (98.1 ??F) Max: 36.9 ??C (98.5 ??F) Pulse Min: 64 Max: 91 BP Min: 114/77 Max: 146/86 Resp Min: 16 Max: 18 SpO2 Min: 90 % Max: 100 % Most Recent : Vitals: 05/16/23 0216 BP: 133/90 Pulse: 78 Resp: 18 [...] LOS: >2mn Medical complexity / risk: Moderate Alberto Johnson MD 01/13/2023 5:20 AM documented in this encounter Consult Notes * Nehemiah Wiley PA - 01/13/2023 11:40 AM CDT Gastroenterology [facility] Consult: Contact info: - [phone]; After hours: [phone] Referring doctor: PCP: Johnna Tinajero MD Reason [...] sinus rhythm with sinus arrhythmia with short OH Anxiety 07/20/2019 Asthma Biliary dyskinesia Migraine headache [...] sinus rhythm with sinus arrhythmia with short OH Anxiety 07/20/2019 Asthma Biliary dyskinesia Migraine headache [...] Triage Vitals Temp Pulse Resp BP SpO2 01/12/23 2156 05/15/215501/12/23215501/12/23215501/12/232155 36.7 ??C (98.1 ??F) 91 16 141/99 100 % Temp src Heart Rate Source Patient Position BP Location FiO2 (%) 01/12/23215501/13/236 01/13/23 0216 01/13/236 -- Oral Monitor Sitting Right arm Height [...] Behavior normal. Thought Content: Thought content normal. [facility] Medical Decision Making Differential: Crohns, Meckels Diverticulum, [...] with negative UA. Given Bentyl, Zofran and [place] Labs: Decision-making details documented in ED Course. Radiology: ordered. Discussion of management or test interpretation with external provider(s): GI Dr. Dennis Risk Prescription drug management. Decision regarding hospitalization. ED Course as of 01/13/23 0550 Time: 01/12 2340 Value: HCG, ur, POC: Negative Comment: (Reviewed) By: Yolis Lubin PA Time: 01/126 Comment: H&H stable By: Yolis Lubin PA Time: 01/13 33 Comment: Dr. Dennis requesting admission to hospitalist. They will follow the patient in the morning. Would like CT enterography abdomen pelvis with without contrast. If negative will need Aurea'ronnaan. By: Yolis Lubin PA Time: 01/13 38 Comment: Sign-out to Dr. Johnson for admission [...] return to normal activity level will improve 01/15/20231753 by Chilo Cowan RN Outcome: Adequate for Discharge 01/15/2023 1118 by Chilo Cowan RN Outcome: Progressing Problem: Lack of Knowledge: Goal: Knowledge of the prescribed therapeutic regimen will improve 01/15/2023 175 by Chilo Cowan [...] meeting health care needs will improve 01/15/2023 175 by Chilo Cowan [...] adequate ventilation will improve 01/15/2023 1754 by Chilo Cowan [...] and pain is controled * Plan of Oscar - Sarah Bueno RRT - 01/15/2023 12:03 [...] room air. IVF's continue * Plan of Oscar - Rajwinder Garcia RN - 01/14/2023 3:56 [...] free from falls and injuries so far thisshift. Pt has been NPO for capsule endoscopy [...] Pradhan RN - 01/13/2023 8:45 AM CDT CM Initial Assessment Interview Note Information Obtained From: Patient (01/13/23844) Admission Source: Patient lives with her parents, her mother is at bedside. 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 She ambulates without assistive device. Impression: RLQ abdominal pain Plan Includes: GI consulted Primary Source of Transportation: Does the patient need discharge transport arranged?: No (parents will transport her home) Has discharge transport been arranged?: Yes (01/13/23103) Health Insurance Coverage: [employer] OPEN ACCESS- Father's insurance Prescription Coverage: yes Pharmacy: [facility] [address] [place] [address] [address] [facility] [address] [facility] [address] Primary Care Provider: Johnna Tinajero MD Prior to Admission: Primary Caregiver: Self Who does the patient or legal guardian want to receive education instruction and discharge plans for after care assistance?: No Caregiver Available Support System: Parent Support system contact info (name, phone, availablity): Vicki Coyne, mother and primary surrogate decision maker [phone] Home Care Services: No Durable Medical Equipment: [...] a week How often do you attend orthodox or congregational services?: More than 4 times per year Do you belong to any clubs or organizations such as orthodox groups, unions, fraternal or athletic groups, or [...] a Mental Health provider: Dr Madyson Bliss [phone] Patient's Identified Problem/Goal Problem: Ensure acute medical [...] Collaboration with patient, MD, direct care nurse, Business Performance Advisor, and other members of the health care team to assure needed interventions completed. 2. Return patient to optimal level of self-care post discharge. 3. Marine Service Station Attendant will follow for Discharge Planning - interventions [...] Wendy Rosales M.D. us Tyra Adam MD [facility] PROCEDURES Final Result * CT Abdomen and [...] Result * eGFR (01/13/2023 4:33 AM CDT) [facility] eGFR 117 mL/min/1. 73 m2 [facility] Comment: Interpretive Data Reference Interval Normal ?>/= [...] Johnson MD LAB BLOOD ORDERABLES Final Result [facility] [address] Department of Laboratories [place], [place] [id number] * Differential, auto (01/13/2023 4:33 AM CDT) Neutrophil abs 2.5 1.7 - 6.5 K/cumm [facility] Imm gran abs 0.0 0.0 - 0.1 K/cumm [facility] Lymphocyte abs 3.1 0.8 - 3.3 K/cumm [facility] Monocyte abs 0.6 0.2 - 0.8 K/cumm [facility] Eosinophil abs 0.3 0.0 - 0.5 K/cumm [facility] Basophil abs 0.1 0.0 - 0.1 K/cumm [facility] Neutrophil pct 38.2 % [facility] Comment: Interpretive Data Percent cell count reference ranges are not reported, since discordance with absolute values may lead to misinterpretation of CBC data. Current Interpretive Data was last revised on 2017. Imm gran pct 0.3 % [facility] Comment: Interpretive Data Percent cell count reference ranges are not reported, since discordance with absolute values may lead to misinterpretation of CBC data. Current Interpretive Data was last revised on 2017. Lymphocyte pct 47.0 % [facility] Comment: Interpretive Data Percent cell count reference ranges are not reported, since discordance with absolute values may lead to misinterpretation of CBC data. Current Interpretive Data was last revised on 2017. Monocyte pct 8.9 % [facility] Comment: Interpretive Data Percent cell count reference ranges are not reported, since discordance with absolute values may lead to misinterpretation of CBC data. Current Interpretive Data was last revised on 2017. Eosinophil pct 4.5 % [facility] Comment: Interpretive Data Percent cell count reference ranges are not reported, since discordance with absolute values may lead to misinterpretation of CBC data. Current Interpretive Data was last revised on 2017. Basophil pct 1.1 % [facility] Comment: Interpretive Data Percent cell count reference ranges are not reported, since discordance with absolute values may lead to misinterpretation of CBC data. Current Interpretive Data was last revised on 2017. Blood 01/13/2023 4:33 AM CDT 01/13/2023 4:56 AM CDT us Alberto Johnson MD LAB BLOOD ORDERABLES Final Result [facility] [address] Department [place] [address] * (ABNORMAL) CBC with auto differential (01/13/2023 4:33 AM CDT) WBC 6.5 3.8 - 9.9 K/cumm [facility] Hgb 11.9 11.9 - 15.5 g/dL [facility] Hct 37.3 35.6 - 45.5 % [facility] Plt 299 150 - 400 K/cumm [facility] MPV 10.1 9.1 - 12.3 fL [facility] RBC 4.09 3.90 - 5.20 M/cumm [facility] MCV 91.2 81.3 - 96.4 fL [facility] MCH 29.1 27.1 - 33.3 pg [facility] MCHC 31.9(L) 32.3 - 35.7 g/dL [facility] RDW CV 12.8 11.1 - 14.9 % [facility] RDW SD 42.3 35.7 - 48.1 fL [facility] NRBC abs 0.00 0.00 - 0.01 K/cumm [facility] Blood 01/13/2023 4:33 AM CDT 01/13/2023 4:56 AM CDT Alberto Johnson MD LAB BLOOD ORDERABLES Final Result Performing Organization Address City/[facility]/ZIP Co de Phone Number [facility] [address] [place], [place] [id number] * Magnesium (01/13/2023 4:33 AM CDT) [facility] Magnesium 1.6 1.4 - 2.5 mg/dL [facility] Blood 01/13/2023 4:33 AM CDT 01/13/2023 4:56 AM CDT Alberto Johnson MD LAB BLOOD ORDERABLES Final Result [facility] [address] [place] [address] * (ABNORMAL) Comprehensive metabolic panel (01/13/2023 4:33 AM CDT) [facility] Sodium 140 135 - 145 mmol/L [facility] Potassium, pl 3.6 3.3 - 4.9 mmol/L [facility] Chloride 110 97 - 110 mmol/L [facility] CO2 21(L) 22 - 32 mmol/L [facility] Anion gap 9 2 - 15 mmol/L [facility] BUN 10 8 - 25 mg/dL [facility] Creatinine 0.75 0.60 - 1.10 mg/dL [facility] Glucose 86 70 - 199 mg/dL [facility] Comment: Interpretive Data Fasting glucose >/= 126 [...] 2022. Calcium 8.7 8.5 - 10.3 mg/dL [facility] Bilirubin, total 0.2 0.1 - 1.2 mg/dL [facility] Protein, pl 6.1(L) 6.5 - 8.5 g/dL [facility] Albumin 3.5 3.5 - 5.0 g/dL [facility] Alk phos 41 40 - 130 Units/L [facility] ALT 18 7 - 45 Units/L [facility] AST 20 10 - 45 Units/L [facility] Blood 01/13/2023 4:33 AM CDT 01/13/2023 4:56 AM CDT us Alberto Johnson MD LAB BLOOD ORDERABLES Final Result [facility] [address] Department [place] [address] * POCT hCG, urine (01/12/2023 11:04 PM CDT) HCG, ur, POC Negative Lot Number [id number] QC Backgroud Clear Acceptable QC Control Line Acceptable Urine 01/12/2023 11:0 4 PM CDT Yariel Dennis MD POINT OF CARE TEST ORDERABL ES Final Result * (ABNORMAL) Urinalysis reflex to microscopic and culture Urine (01/12/2023 11:03 PM CDT) Color, ur Yellow Yellow [facility] Clarity, ur Clear Clear [facility] Specific gravity, ur 1.039(H) 1.003 - 1.030 [facility] pH, urine 6.0 [facility] Protein, ur ql Trace Negative [facility] Glucose, ur ql Negative Negative [facility] Ketones, ur Negative Negative [facility] Bilirubin, ur Negative Negative [facility] Blood, ur Negative Negative [facility] Urobilinogen, ur <2.0 <2.0 mg/dL [facility] Nitrite, ur Negative Negative [facility] Leukocyte esterase, ur Negative Negative [facility] UA reflex comment Reflex conditions for microscopic UA and culture not met. [facility] Urine 01/12/2023 11:0 3 PM CDT 01/12/2023 11:09 PM CDT Narrative [facility] - 01/12/2023 11:11 PM CDT ?? Urine pH is affected by diet, medications, systemic acid-base disturbances, and renal tubular function. ??pH may affect urinary stone formation. ??For example, urine pH below 6.0 may help reduce the tendency for calcium phosphate stones and pH greater than 6.0 may reduce the tendency for uric acid stone formation. Source: [facility] bttn. Last revised 09-10-2017 Yariel Dennis MD LAB MICROBIOLOGY - GENERAL ORDERABLES Final Result [facility] [address] Department [place] [address] * eGFR (01/12/2023 10:47 PM CDT) eGFR 110 mL/min/1. 73 m2 [facility] Comment: Interpretive Data Reference Interval Normal ?>/= [...] Dennis MD LAB BLOOD ORDERABLES Final Result [facility] [address] Department [place] [address] * Differential, auto (01/12/2023 10:47 PM CDT) Neutrophil abs 3.0 1.7 - 6.5 K/cumm [facility] Imm gran abs 0.0 0.0 - 0.1 K/cumm [facility] Lymphocyte abs 2.9 0.8 - 3.3 K/cumm [facility] Monocyte abs 0.6 0.2 - 0.8 K/cumm [facility] Eosinophil abs 0.4 0.0 - 0.5 K/cumm [facility] Basophil abs 0.1 0.0 - 0.1 K/cumm [facility] Neutrophil pct 42.6 % [facility] Comment: Interpretive Data Percent cell count reference ranges are not reported, since discordance with absolute values may lead to misinterpretation of CBC data. Current Interpretive Data was last revised on 2017. Imm gran pct 0.3 % [facility] Comment: Interpretive Data Percent cell count reference ranges are not reported, since discordance with absolute values may lead to misinterpretation of CBC data. Current Interpretive Data was last revised on 2017. Lymphocyte pct 41.8 % [facility] Comment: Interpretive Data Percent cell count reference ranges are not reported, since discordance with absolute values may lead to misinterpretation of CBC data. Current Interpretive Data was last revised on 2017. Monocyte pct 9.2 % [facility] Comment: Interpretive Data Percent cell count reference ranges are not reported, since discordance with absolute values may lead to misinterpretation of CBC data. Current Interpretive Data was last revised on 2017. Eosinophil pct 5.1 % [facility] Comment: Interpretive Data Percent cell count reference ranges are not reported, since discordance with absolute values may lead to misinterpretation of CBC data. Current Interpretive Data was last revised on 2017. Basophil pct 1.0 % [facility] Comment: Interpretive Data Percent cell count reference ranges are not reported, since discordance with absolute values may lead to misinterpretation of CBC data. Current Interpretive Data was last revised on 2017. Blood 01/12/2023 10:4 7 PM CDT 01/12/2023 10:52 PM CDT us Yariel Dennis MD LAB BLOOD ORDERABLES Final Result [facility] [address] Department [place] [address] * Lipase (01/12/2023 10:47 PM CDT) Lipase 23 10 - 99 Units/L [facility] Blood (Blood, Venous) 01/12/2023 10:47 PM CDT 01/12/2023 10:52 PM CDT us Yariel Dennis MD LAB BLOOD ORDERABLES Final Result [facility] [address] Department [place] [address] * (ABNORMAL) Comprehensive metabolic panel (01/12/2023 10:47 PM CDT) Sodium 140 135 - 145 mmol/L [facility] Potassium, pl 4.3 3.3 - 4.9 mmol/L [facility] Chloride 109 97 - 110 mmol/L [facility] CO2 21(L) 22 - 32 mmol/L [facility] Anion gap 10 2 - 15 mmol/L [facility] BUN 9 8 - 25 mg/dL [facility] Creatinine 0.79 0.60 - 1.10 mg/dL [facility] Glucose 98 70 - 199 mg/dL [facility] Comment: Interpretive Data Fasting glucose >/= 126 [...] 2022. Calcium 9.3 8.5 - 10.3 mg/dL [facility] Bilirubin, total <0.2 0.1 - 1.2 mg/dL [facility] Protein, pl 6.9 6.5 - 8.5 g/dL [facility] Albumin 3.9 3.5 - 5.0 g/dL [facility] Alk phos 48 40 - 130 Units/L [facility] ALT 23 7 - 45 Units/L [facility] AST 26 10 - 45 Units/L [facility] Comment:Slightly Hemolyzed S pecimen Blood 01/12/2023 10:4 7 PM CDT 01/12/2023 10:52 PM CDT Yariel Dennis MD LAB BLOOD ORDERABLES Final Result Performing Organization Address [facility] Co de Phone Number [facility] [address] [place] [address] * CBC with auto differential (01/12/2023 10:47 PM CDT) Pathologist [facility] WBC 6.9 3.8 - 9.9 K/cumm [facility] Hgb 13.0 11.9 - 15.5 g/dL [facility] Hct 40.0 35.6 - 45.5 % [facility] Plt 322 150 - 400 K/cumm [facility] MPV 10.3 9.1 - 12.3 fL [facility] RBC 4.36 3.90 - 5.20 M/cumm [facility] MCV 91.7 81.3 - 96.4 fL [facility] MCH 29.8 27.1 - 33.3 pg [facility] MCHC 32.5 32.3 - 35.7 g/dL [facility] RDW CV 12.7 11.1 - 14.9 % [facility] RDW SD 43.0 35.7 - 48.1 fL [facility] NRBC abs 0.00 0.00 - 0.01 K/cumm [facility] Blood (Blood, Venous) 01/12/2023 10:47 PM CDT 01/12/2023 10:52 PM CDT Yariel Dennis MD LAB BLOOD ORDERABLES Final Result Performing Organization Address City/[facility]/ZIP Co de Phone Number [facility] [facility] [address] [place] [address] documented in this encounter Visit Diagnoses Diagnosis RLQ abdominal pain- Primary Abdominal pain, right lower quadrant RLQ abdominal pain Abdominal pain, right lower quadrant Intractable abdominal pain Intractable abdominal pain Chronic nausea Nausea alone Mixed obsessional thoughts and acts RLQ abdominal pain Abdominal pain, right lower quadrant documented in this encounter Admitting Diagnoses Diagnosis [...] puff 2 puff, inhalation, 2 times daily (emergency response coordinator), First dose on Thu01/13/23 at 0800, I /authorizing provider attest that the patient meets the approved [facility] Use Criteria: Yes Given 01/15/2023 11:59 AM [...] Given 01/14/2023 8:33 AM CDT 0.2 mg ondansetron (ZOFRAN) injection 4 mg 4 mg, intravenous, Administer over 2 Minutes, Every 6 hours PRN, nausea, vomiting, if not tolerating PO, Starting on Thu01/13/23 at 0231, Indications: Nausea and VomitingIndications:Nausea and Vomiting Given 01/14/2023 11:31 AM CDT 4 m g ondansetron ODT (ZOFRAN-ODT) disintegrating tablet 4 mg [...] PM CDT 100 mL/hr 100 mL/ hr documented in this encounter Discontinued Medications Medication [...] puff 2 puff, inhalation, 2 times daily (emergency response coordinator), First dose on Thu01/13/23 at 0800, I /authorizing provider attest that the patient meets the approved [facility] Use Criteria: Yes 0757 (Given - Provider: Shital Anthony, FORDER OPERATOR)191 (Given - Provider: Sandy Fabian, MATTHEW) 0856 (Not Given - Provider: Juanis Torres, MATTHEW - Reason: Patient/family refused - Comment: just did endoscopy)1955 (Given - Provider: Claire Sol, FORDER OPERATOR) 1159 (Given - Provider: Sarah Bueno, MATTHEW) cetirizine (ZyrTEC) tablet 10 mg 10 mg, oral, Daily, First dose on Thu01/13/23 at 0900 0947 (Given - Provider: Naresh Hyde RN) 1130 (Given - Provider: Armida Ventura, GLENDA) 0932 (Given - Provider: Chilo Cowan RN) doxepin (SINEquan) capsule 50 mg 50 mg, oral, Nightly, First dose on Thu01/13/23 at 2100 2206 (Given - Provider: Rajwinder Garcia RN) 2037 (Given - Provider: Nicho Delgado RN) enoxaparin (LOVENOX) syringe 40 mg 40 mg, subcutaneous, Daily (for enoxaparin), First dose on Thu01/13/23 at 2100, Indications: Deep Vein Thrombosis Prevention 2205 (Given - Provider: Rajwinder Garcia RN) 2037 (Given - Provider: Nicho Delgado RN) magnesium citrate oral solution 296 mL (COMPLETED) 296 mL, oral, Once, On Thu01/13/23 at 1600, For 1 dose, Pre-Op/Floor (GI), Indications: Bowel Evacuation 180 (Given - Provider: Naresh Hyde RN) sertraline (ZOLOFT) tablet 100 mg 100 mg, oral, Nightly, First dose (after last modification) on Thu01/13/23 at 2100 2206 (Given - Provider: Rajwinder Garcia RN) 2037 [...] IV Infusing)1324 (Not Given - Provider: Armida Ventura, GLENDA - Reason: IV Infusing) 0203 (Not Given [...] Guo RN)1925 (New Bag - Provider: Naresh Hyde, GLENDA) 0741 (New Bag - Provider: Armida Ventura, GLENDA)1020 (Rate/Dose Verify - Provider: Armida Ventura RN)1324 [...] 2 puff, inhalation, Every 6 hours PRN (emergency response coordinator), wheezing, shortness of breath, Starting on Thu01/13/23 [...] at 0635 0833 (Given - Provider: Armida Ventura, GLENDA) ioversoL (OPTIRAY 350) syringe 125 mL (COMPLETED) [...] Hyde RN) 1131 (Given - Provider: Armida Ventura RN) ondansetron ODT (ZOFRAN-ODT) disintegrating tablet 4 mg(Linked [...] Naresh Hyde RN)2206 (Given - Provider: Rajwinder Garcia RN) 1654 (Given - Provider: Armida Ventura, GLENDA)2042 (Given - Provider: Nicho Delgado RN) 0934 (Given - Provider: Chilo Cowan, GLENDA) [...] needed, line care, Starting on Thu01/13/23 at 023, Flush volume based on line type and [...] prochlorperazine (COMPAZINE) injection 5 mg 1 01/14/2023 acetaminophen (TYLENOL) tablet 650 mg 1 albuterol HFA (PROVENTIL HFA ,VENTOLIN HFA,PROAIR HFA) 90 mcg/actuation inhaler 2 puff 1 01/13/2023 budesonide-formoteroL (SYMBI DARLEEN) 80-4.5 mcg/actuation inhaler 2 puff 1 01/13/2023 Carrier Fluids for Secondary Infusion - 0.9% Sodium Chloride 1 01/13/2023 cetirizine (ZyrTEC) tablet 10 mg 1 01/14/20 doxepin (SINEquan) capsule 50 mg 1 01/14/20 enoxaparin (LOVENOX) syringe 40 mg 1 2022 HYDROmorphone (PF) (DILAUDID ) injection 0.2 mg 1 01/13/2023 ioversoL (OPTIRAY 350) syringe 125 mL 1 magnesium citrate oral solution 296 mL 1 ondansetron (ZOFRAN) injection 4 mg 3 01/1301/12/2023 ondansetron ODT (ZOFRAN-ODT) disintegrating tablet 4 mg 1 01/13/2023 oxyCODONE (ROXICODONE) tablet 5 mg 1 2022 polyethylene glycol (MIRALAX) packet 17 g 1 01/13/2023 ramelteon (ROZEREM) tablet 8 mg 1 sertraline (ZOLOFT) tablet 100 mg 2 sodium chloride 0.9% flush 0.5-20 mL 2 12/29 sodium chloride 0.9% infusion 1 01/13/2023 tc-[id number] sodium pertechnetate injection 10.7 millicurie 1 01/13/2023 ketorolac (TORADOL) 30 mg/mL (1 mL) injection 15 mg 1 01/12/2023 Diet Count Last Ordered Date First Orde red Date ADULT DISCHARGE DIET 1 01/15/2023 Nursing Count Last Ordered Date First Orde red Date DISCHARGE ACTIVITY 1 01/15/2023 FOLLOW UP WITH ESTABLISHED PROVIDER 1 01/15 ACTIVITY 1 01/13/2023 NOTIFY PROVIDER (SPECIFY) [...] 01/13/2023 documented in this encounter Care Teams Wood Crew Supervisor Relationship Specialty Start Date End Date Johnna Tinajero MD [id number] [address] PCP - General Pediatrics 07/19/19 01/26/23 Johnna Tinajero MD [id number] [address] 07/19/19 Luciano Edwards MD [id number] [address] Consulting Physician General Surgery 02/01/21 documented as of this encounter
--- OUTSIDE RECORDS SUMMARY | 2024-08-28 02:12 | XMS_ITS | Encounter Summary ---
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 Name Role Phone Johnna Tinajero MD Primary Care Provider + Johnna Tinajero MD Unavailable [phone] Luciano Edwards MD Unavailable [phone] Reason for Visit * Reason Comments Abdominal Pain Encounter Details Date Type Department Care Team (Late st Contact Info) Description 12/14/2022 3:18 PM CDT - 12/14/2022 9:34 PM CDT Emergency [facility] Emergency Department [address] [place] [address] Sanju Caballero DO [address] [place] [address] Shawn Gill MD [address] [place] [address] Abdominal pain (Primary Dx) Discharge Disposition: Discharge to home [...] on file Legal Sex 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 Gender Identity Not on file Sexual Orientation Not on file documented as of this encounter Last Filed Vital Signs Vital Sign Reading Time Taken Comments Blood Pressure 133/71 12/14/2022 9:00 PM CDT Pulse 91 12/14/2022 9:00 PM CDT Temperature 36.8 ??C (98.3 ??F) 12/14/2022 2:02 PM CD T Respiratory Rate 16 12/14/2022 9:00 PM CDT Oxygen Saturation 98% 12/14/2022 9:00 PM CDT Inhaled Oxygen Concentration - - Weight 95.3 kg (210 lb) 12/14/2022 2:02 PM CDT Height 160 cm (5' 3 ) 12/14/2022 2:02 PM CDT Body Mass Index 37.2 12/14/2022 2:02 PM CDT documented in this encounter Discharge Instructions * Discharge Instructions* Sanju Caballero, DO - 12/14/2022 7:34 PM CDT If your symptoms do not improve, or worsen, call your primary care physician or return here. If you were given prescriptions from the ER, please complete all medications you were prescribed. Call your primary care physician or the specialist you were referred to as directed to arrange follow up from your visit in the ER Please call us at [phone] if you have any further questions or concerns. Thank you for allowing me to care for you today. As we discussed, your evaluation in the emergency department did not reveal any evidence of appendicitis. The exact source of your symptoms is not certain. Your lab work is normal. Follow-up with your primary care physician within the next 3-5 days. I have also provided you with the name of on-call Gastroenterology, Dr. Romie Kinsey, for follow-up. Call the office in the morningto arrange follow-up visit. Take Zofran orally dissolving tablets as needed for nausea. I have provided you with a short course of hydrocodone/Tylenol for pain, take this as needed. If your symptoms do not improve, or worsen, call your primary care physician or return here * Attachments The following attachments cannot be sent through Care Everywhere. * Abdominal Pain, Unknown Cause, (Female) (Tunisian) documented in this encounter Medications at Time of Discharge albuterol HFA (PROVENTIL HFA,VENTOLIN HFA,PROAIR HFA) 90 mcg/actuation inhaler Inhale 2 puffs every 6 (six) hours as needed for wheezing or shortness of breath cetirizine (ZyrTEC) 10 mg tablet Take 10 mg by mouth daily fluticasone furoate-vilanteroL (BREO ELLIPTA) 100-25 mcg/dose diskus inhaler Inhale 1 puff once daily Rinse mouth with water after use. Do not swallow. norgestimate-ethinyl estradiol (ORTHO TRI-CYCLEN LO) 0.18/0.215/0.25 mg-25 mcg per tablet Take 1 tablet by mouth daily 0 08/17/2019 sertraline (ZOLOFT) 100 mg tablet Take 1 tablet (100 mg total) by mouth daily HYDROcodone-acetamin ophen (NORCO) 5-325 mg per tabletIndications:Pa in Take 1 tablet by mouth every 6 (six) hours as needed for pain for up to 3 days 12 tablet 12/14/2022 3 dicyclomine (BENTYL) 20 mg tablet Take 1 tablet (20 mg total) by mouth 2 (two) times a day 20 tablet 12/14/2022 3 ondansetron ODT (ZOFRAN-ODT) 4 mg disintegrating tabletIndications:Na usea and vomiting Dissolve 1 tablet oral every 6 hours as needed for nausea or vomiting. 20 tablet 12/14/2022 3 documented as of this encounter Ordered Prescriptions Prescription Sig Dispense Quantity Refills Last Filled Start Date End Date dicyclomine (BENTYL) 20 mg tablet Take 1 tablet (20 mg total) by mouth 2 (two) times a day 20 tablet 12/14/2022 3 ondansetron ODT (ZOFRAN-ODT) 4 mg disintegrating tabletIndications:Na usea and vomiting Dissolve 1 tablet oral every 6 hours as needed for nausea or vomiting. 20 tablet 12/14/2022 3 HYDROcodone-acetamin ophen (NORCO) 5-325 mg per tabletIndications:Pa in Take 1 tablet by mouth every 6 (six) hours as needed for pain for up to 3 days 12 tablet 12/14/2022 3 documented in this encounter Discharge Disposition Disposition Code Departure Means Destination Comment s Discharge to home or self care documented in this encounter ED Notes * Charly Allen RN - 12/14/2022 9:26 PM CDT D/c paperwork reviewed with pt including pain management and follow up. Pt verbalized understanding, esign not available d/t hospital wide covid precautions. Pt able to get dressed and ambulate out of ER without any sign of distress. Charly Allen RN 12/14/222125 * Sanju Caballero, - 12/14/2022 4:19 PM CDT HPI Chief Complaint Patient presents with Abdominal Pain HPI 22-year-old woman, ambulatory to ER for evaluation of right lower quadrant abdominal pain. History is obtained from the patient. Mother also provided some of the history. Nina reported being in her normal state of health prior to the onset of the symptoms. About 3 weeks ago, she began developing pain in the right lower quadrant, that has been associated with nausea, vomiting, and increased bloating. She states the pain has progressively worsened over this time, particularly within last week, her mother noted that patient has not been able to eat anything without provocation of pain. She denies fever but has had intermittent chills. There is no history of nephrolithiasis. 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 for 7 days for suspected urinary tract infection, however patient and her mother told me she had 2 urinalysis test done, and both were negative. FDLMP was 11/21/2022, menses lasted 5 days, ending on 11/26/2022. She has had previous robotic cholecystectomy done here in 2020, pain does not feel similar to this. Pain wasexacerbated by walking, and with palpation over the right lower quadrant. In addition to the above,mother reported that there was discussion about whether or not she may have IBS, but was tested forSIBO and this was positive, and was treated and has had no recurrences. Patient History: Patient Active Problem List Diagnosis Date Noted History of mononucleosis 04/28/2022 Dyskinesia of gallbladder [...] sinus rhythm with sinus arrhythmia with short NC Anxiety 07/20/2019 Asthma Biliary dyskinesia Migraine headache [...] retail Review of Systems Review of Systems CONSTITUTIONAL: denies fever, positive for chills, denies fatigue/weakness; denies myalgias/arthralgias; denies sick contacts with similar symptoms, decreased appetite as per HPI EYES: Denies redness, drainage, crusting, itching; denies visual loss or acute changes in visual acuity ENT: Denies ear pain/drainage/foreign body, denies acute changes in hearing; Denies rhinorrhea, epistaxis, denies sinus pain or congestion; denies sore throat, dysphagia, strep exposure; denies dental pain or recent dental surgery NECK: Denies neck pain, recent neck injury; denies neck stiffness, denies swollen glands CARDIAC: Denies chest pain, pressure, heaviness; denies palpitations or irregular heartbeat; deniesrecent injury PULMONARY: Denies dyspnea, cough, congestion, wheezing; denies hemoptysis, denies pleuritic pain; denies recent infections; denies increased use of nebulizer and/or inhaler ABDOMEN: Abdominal pain, nausea, vomiting and bloating as per HPI GENITOURINARY: Denies urinary frequency, urgency, dysuria or malodorous urine; denies hematuria; denies sensation of incomplete bladder emptying MUSCULOSKELETAL: Denies extremity pain, back pain, swelling in arms, swelling in legs/ankles; denies recent history of injury; denies calf pain SKIN: Denies rashes or lesions; denies pruritus NEUROLOGICAL: Denies headache, dizziness, visual loss, visual change; denies paresthesias, difficulty ambulating, weakness PSYCH; Denies suicidal or homicidal ideation, denies depression/anxiety, denies difficulty coping with life stressors Physical Exam ED Triage Vitals [12/14/22 1402] Temp Pulse Resp BP SpO2 36.8 ??C (98.3 ??F) 100 18 (!) 150/103 95 % Temp src Heart Rate Source Patient Position BP Location FiO2 (%) -- -- -- -- -- Height Height Method Weight Weight Method 1.6 m (5' 3 ) -- 95.3 kg (210 lb) -- Physical Exam HEAD: Atraumatic, no evidence of lacerations, contusions, soft tissue swelling or crepitus EENT: Pupils equal and reactive to light, accommodation intact. Conjunctiva and sclera are clear; Tympanic membranes normal bilaterally, no erythema noted. EAC intact bilaterally without foreign bodyor debris; Mastoid process non-tender on palpation. Nares clear bilaterally without hemorrhage or foreign bodies; pharynx clear without foreign bodies; no tonsillar hypertrophy, masses or exudates not ed. Uvula is normal without edema/erythema; no masses noted on tongue. Dentition pattern is good. NECK: Trachea is midline, no submental masses or pain noted on palpation. Carotid pulses +2 bilaterally without bruits. No submandibular, anterior or posterior cervical adenopathy noted. Cervical spine is contender on palpation without crepitus, deformity or stepoffs noted. No thyromegaly noted. CARDIAC: S1 and S2 normal, no S3/S4 noted; no murmurs, rubs or gallops noted. Regular rate and rhythm, bedside software quality analyst showing NSR PULMONARY: Normal respiratory effort without evidence of tachypnea; lungs clear to auscultation bilaterally, no rales, rhonchi or wheezes noted. ABDOMEN: Soft, tender to palpation over right lower quadrant, over McBurney's point, no rigidity, guarding, questionable mild rebound. Obturator and psoas signs are negative bilaterally, heel tap is negative bilaterally. BACK: No pain on palpation of thoracic or lumbar spinous processes; thoracic and lumbar paraspinal muscles are nontender to palpation. MUSCULOSKELETAL: Extremities non-tender on palpation and with ROM testing. No obvious deformities noted; no clubbing noted, no edema noted; radial and ulnar pulses are +2, DP/PT pulses are +2, capillary refill is < 2 seconds NEUROLOGICAL: No obvious focal deficits noted; speech is fluent, no dysphasia noted; motor strengthis symmetric in upper and lower extremities, rated at +4 SKIN: Warm and dry, normal skin color; no rashes or lesions noted Labs Reviewed URINALYSIS AND REFLEX TO MICROSCOPIC AND CULTURE - Abnormal Result Value Color, ur Yellow Clarity, ur Clear Specific gravity, ur 1.035 (*) pH, urine 6.0 Protein, ur ql Trace Glucose, ur ql Negative Ketones, ur Negative Bilirubin, ur Negative Blood, ur Negative Urobilinogen, ur <2.0 Nitrite, ur Negative Leukocyte esterase, ur Negative UA reflex comment Value: Reflex conditions for microscopic UA and culture not met. Narrative: Urine pH is affected by diet, medications, systemic acid-base disturbances, and renal tubular function. pH may affect urinary stone formation. For example, urine pH below 6.0 may help reduce the tendency for calcium phosphate stones and pH greater than 6.0 may reduce the tendency for uric acid stone formation. Source: [employer].Last revised 09-10-2017 POCT HCG, URINE - Normal HCG, ur, POC Negative Lot Number [id number] QC Backgroud Clear Acceptable QC Control Line Acceptable CBC WITH AUTO DIFFERENTIAL WBC 6.0 Hgb 13.3 Hct 40.6 Plt 372 MPV 10.3 RBC 4.49 MCV 90.4 MCH 29.6 MCHC 32.8 RDW CV 12.9 RDW SD 42.8 NRBC abs 0.00 COMPREHENSIVE METABOLIC PANEL Sodium 139 Potassium, pl 4.0 Chloride 106 CO2 23 Anion gap 10 BUN 8 Creatinine 0.81 Glucose 111 Calcium 9.1 Bilirubin, total 0.5 Protein, pl 6.8 Albumin 3.8 Alk phos 51 ALT 21 AST 26 LIPASE Lipase 27 DIFFERENTIAL AUTO Neutrophil abs 2.7 Imm gran abs 0.0 Lymphocyte abs 2.4 Monocyte abs 0.6 Eosinophil abs 0.3 Basophil abs 0.1 Neutrophil pct 44.5 Imm gran pct 0.3 Lymphocyte pct 40.6 Monocyte pct 9.3 Eosinophil pct 4.3 Basophil pct 1.[address] Abdomen Pelvis W Contrast ED Interpretation PROCEDURE INFORMATION: Exam: CT Abdomen And Pelvis With Contrast Exam date and time: 12/14/2022 6:03 PM Age: 22 years old Clinical indication: Abdominal pain; Additional info: Rlq abdominal pain, appendicitis suspected (age => 16y) TECHNIQUE: Imaging protocol: Computed tomography of the abdomen and pelvis with contrast. COMPARISON: CT [employer]^ABD PEL DE OVER 40 BMI PEDS (Adult) 07/21/2019 11:37 AM FINDINGS: Liver: Normal. No mass. Gallbladder and bile ducts: Status post cholecystectomy. Pancreas: Normal. No ductal dilation. Spleen: Normal. No splenomegaly. Adrenal glands: Normal. No mass. Kidneys and ureters: Normal. No hydronephrosis. Stomach and bowel: Fluid-filled small bowel that could represent a mild enteritis. Appendix: Fluid-filled proximal to mid appendix measuring up to 7 mm in diameter with air within the distal tip and no significant periappendiceal induration. Findings are indeterminate and early appendicitis cannot be excluded. Intraperitoneal space: Unremarkable. No free air. No significant fluid collection. Vasculature: Unremarkable. No abdominal aortic aneurysm. Lymph nodes: Unremarkable. No enlarged lymph nodes. Urinary bladder: Urinary bladder wall thickening that could represent a cystitis. Correlation with urinalysis is recommended. Reproductive: Unremarkable as visualized. Bones/joints: Unremarkable. No acute fracture. Soft tissues: Fat containing umbilical hernia. IMPRESSION: 1. Fluid-filled proximal to mid appendix measuring up to 7 mm in diameter with air within the distal tip and no significant periappendiceal induration. Findings are indeterminate and early appendicitis cannot be excluded. 2. Urinary bladder wall thickening that could represent a cystitis. Correlation with urinalysis is recommended. 3. Fluid-filled small bowel that could represent a mild enteritis. THIS DOCUMENT HAS BEEN ELECTRONICALLY SIGNED BY YANI FLORES MD THIS DOCUMENT WAS READ BY A [facility] RADIOLOGIST, ANY QUESTIONS PLEASE CALL [phone] Final Result 1. No CT evidence of acute appendicitis 2. No acute bowel abnormality 3. Question mild heterogeneous enhancement upper pole left kidney with minimal dilatation upper pole collecting system. No urolithiasis. Given the diffuse urinary bladder wall thickening, correlation with urinalysis to exclude urinary tract infection is recommended. For the purposes of quality assurance monitor chassis, this study was initially interpreted by teleradiology. There is no significant discrepancy. Electronically signed by: Wendy Rosales M.D. [facility] Medical Decision Making Appears clinically stable. I had a lengthy discussion with Nina and her mother regarding need for evaluation with imaging. Possibility of ovarian cyst with rupture could be considered, however this would be somewhat unusual for her to have pain for 3 weeks. Possibility of small-bowel obstruction was discussed as well, given previous cholecystectomy, and appendicitis. She denies , will get urine test as well. Further recommendations pending outcome of studies. Awaiting results of CT scan. I have reviewed the case with my associate, Dr. Shawn Gill, he will follow up on results of the CT scan. If this is negative, I think patient can be safely discharged home. Lab work is unremarkable, she had normal menstrual period November 21 through November 26. Will ensure that she is GI follow-up, on-call GI Dr. Romie kinsey, will give her his name for follow-up as well. Amount and/or Complexity of Data Reviewed Labs: ordered. Decision-making details documented in ED Course. Radiology: ordered and independent interpretation performed. Decision-making details documented in ED Course. Risk Prescription drug management. This note was transcribed using speech recognition software. As a result, there may be grammar and spelling errors that are unintended. If there are any questions or major errors, please contact me. ED Course as of 12/17/221852 Time: 12/14 2112 Comment: CT report back with wording that early appendicitis cannot be excluded, though appendicealsize is normal and there is no periappendiceal stranding seen. I discussed this with Dr. Edwards who previously took pt's GB out. Given the CT findings, duration of sxs (3 weeks) and normal WBC,he agrees that early appendicitis would not be likely and is comfortable with DC home. I relayed all of this to the pt and her mother and they are comfortable going home as well, to return if sxs worsen. By: Shawn Gill MD Final diagnoses: Abdominal pain - Uncertain etiology Sanju Caballero DO 12/17/221852 * Rosette Harrison RN - 12/14/2022 3:18 PM CDT Bed: Expected date: Expected time: Means of arrival: Comments: Rosette Harrison RN 12/14/22 1518 * Corrine Kevin RN - 12/14/2022 2:00 PM CDT Lower Right abdomen pain abdomen pain started 3 weeks ago. Patient was put on antibiotics for uti but pain is getting worse. Patient also nausea and vomiting. documented in this encounter Plan of Treatment Not on file documented as of this encounter Procedures Procedure Name Priority Date/Time Associated Diagnosis Comments CT ABDOMEN PELVIS W CONTRAST ED 12/14/2022 6:17 PM CDT URINALYSIS AND REFLEX TO MICROSCOPIC AND CULTURE STAT 12/14/2022 5:28 PM CDT POCT HCG, URINE Routine 12/14/2022 5:27 PM CDT EGFR STAT 12/14/2022 2:42 PM CDT DIFFERENTIAL AUTO STAT 12/14/2022 2:4 2 PM CDT CBC WITH AUTO DIFFERENTIAL STAT 12/14/2022 2:42 PM CDT LIPASE STAT 12/14/2022 2:42 PM CDT COMPREHENSIVE METABOLIC PANEL STAT 12/14/2022 2:42 PM CDT documented in this encounter Results * CT Abdomen Pelvis W Contrast (12/14/2022 6:17 PM CDT) Anatomical Region Laterality Modality Body N/A Computed Tomogra phy 12/14/2022 6:03 PM CDT Impressions 12/14/2022 9:[address] evidence of acute appendicitis 2. No acute bowel abnormality 3. Question mild heterogeneous enhancement upper pole left kidney with minimal dilatation upper pole collecting system. No urolithiasis. Given the diffuse urinary bladder wall thickening, correlation with urinalysis to exclude urinary tract infection is recommended. For the purposes of quality assurance monitor chassis, this study was initially interpreted by teleradiology. ??There is no significant discrepancy. Electronically signed by: Wendy Rosales M.D. Narrative 12/14/2022 9:18 PM CDT EXAM: ??CT abdomen and pelvis with contrast HISTORY: ??Right lower quadrant pain COMPARISON: ??CT abdomen and pelvis with contrast 07/21/2019 FINDINGS: CT abdomen and pelvis was performed with 120 mL Optiray 350 intravenous contrast. Lung bases are clear. Liver is normal. There are changes of cholecystectomy with no bile duct dilatation. Pancreas is normal. Spleen is normal. Adrenal glands are normal. There is mild fullness upper pole left renal collecting system. There is no urolithiasis. There is question mild heterogeneous enhancement upper pole left kidney versus artifact. Correlation with urinalysis is recommended. Urinary bladder is incompletely distended with mild bladder wall prominence likely related to the incomplete distention. Uterus and adnexal regions are normal. There is mild diverticulosis of the sigmoid colon. The appendix is normal caliber 5.5 mm. There is air in the tip of the appendix. There is no surrounding soft tissue stranding to suggest acute appendicitis. Stomach and duodenum are normal. There are are normal appearing small bowel loops with no evidence of focal bowel inflammation or obstruction. There is no abdominal or pelvic ascites or lymphadenopathy. Aorta is of normal caliber with normal perfusion of branch vessels. There is normal opacification of the main, right and left portal veins and the portal splenic confluence. Proximal IVC is patent. Abdominal wall is intact. Inguinal regions are normal. There is no acute bone abnormality. Procedure Note Wendy Rosales MD - 12/14/2022 EXAM: CT abdomen and pelvis with contrast HISTORY: Right lower quadrant pain COMPARISON: CT abdomen and pelvis with contrast 07/21/2019 FINDINGS: CT abdomen and pelvis was performed with 120 mL Optiray 350 intravenous contrast. Lung bases are clear. Liver is normal. There are changes of cholecystectomy with no bile duct dilatation. Pancreas is normal. Spleen is normal. Adrenal glands are normal. There is mild fullness upper pole left renal collecting system. There is no urolithiasis. There is question mild heterogeneous enhancement upper pole left kidney versus artifact. Correlation with urinalysis is recommended. Urinary bladder is incompletely distended with mild bladder wall prominence likely related to the incomplete distention. Uterus and adnexal regions are normal. There is mild diverticulosis of the sigmoid colon. The appendix is normal caliber 5.5 mm. There is air in the tip of the appendix. There is no surrounding soft tissue stranding to suggest acute appendicitis. Stomach and duodenum are normal. There are are normal appearing small bowel loops with no evidence of focal bowel inflammation or obstruction. There is no abdominal or pelvic ascites or lymphadenopathy. Aorta is of normal caliber with normal perfusion of branch vessels. There is normal opacification of the main, right and left portal veins and the portal splenic confluence. Proximal IVC is patent. Abdominal wall is intact. Inguinal regions are normal. There is no acute bone abnormality. IMPRESSION: 1. No CT evidence of acute appendicitis 2. No acute bowel abnormality 3. Question mild heterogeneous enhancement upper pole left kidney with minimal dilatation upper pole collecting system. No urolithiasis. Given the diffuse urinary bladder wall thickening, correlation with urinalysis to exclude urinary tract infection is recommended. For the purposes of quality assurance monitor chassis, this study was initially interpreted by teleradiology. There is no significant discrepancy. Electronically signed by: Wendy Rosales M.D. Sanju Caballero DO IMG CT PROCEDURES Final Res ult * (ABNORMAL) Urinalysis reflex to microscopic and culture Urine (12/14/2022 5:28 PM CDT) Color, ur Yellow Yellow [facility] Clarity, ur Clear Clear [facility] Specific gravity, ur 1.035(H) 1.003 - 1.030 [facility] pH, urine 6.0 [facility] Protein, ur ql Trace Negative [facility] Glucose, ur ql Negative Negative [facility] Ketones, ur Negative Negative [facility] Bilirubin, ur Negative Negative [facility] Blood, ur Negative Negative [facility] Urobilinogen, ur <2.0 <2.0 mg/dL [facility] Nitrite, ur Negative Negative [facility] Leukocyte esterase, ur Negative Negative [facility] UA reflex comment Reflex conditions for microscopic UA and culture not met. [facility] Urine 12/14/2022 5:28 PM CDT 12/14/2022 5:46 PM CDT Narrative [facility] - 12/14/2022 5:49 PM CDT ?? Urine pH is affected by diet, medications, systemic acid-base disturbances, and renal tubular function. ??pH may affect urinary stone formation. ??For example, urine pH below 6.0 may help reduce the tendency for calcium phosphate stones and pH greater than 6.0 may reduce the tendency for uric acid stone formation. Source: [employer]. Last revised 09-10-2017 Sanju Caballero DO LAB MICROBIOLOGY - GENERAL ORDERABLES Final Result [facility] [address] Department [place] [address] * POCT hCG, urine (12/14/2022 5:27 PM CDT) Pathologist [facility] HCG, ur, POC Negative Lot Number [id number] QC Backgroud Clear Acceptable QC Control Line Acceptable Urine 12/14/2022 5:27 PM CDT us Sanju Caballero DO POINT OF CARE TEST ORDERABL ES Final Result * eGFR (12/14/2022 2:42 PM CDT) Pathologist [facility] eGFR 107 mL/min/1. 73 m2 [facility] Comment: Interpretive Data Reference Interval Normal ?>/= [...] interpretive data was last reviewed 2021. Blood 12/14/2022 2:42 PM CDT 12/14/2022 3:44 PM CDT us Edilberto Mayers MD LAB BLOOD ORDERABLES Neris rick Result [facility] [address] Department [place] [address] * Differential, auto (12/14/2022 2:42 PM CDT) Neutrophil abs 2.7 1.7 - 6.5 K/cumm [facility] Imm gran abs 0.0 0.0 - 0.1 K/cumm [facility] Lymphocyte abs 2.4 0.8 - 3.3 K/cumm [facility] Monocyte abs 0.6 0.2 - 0.8 K/cumm [facility] Eosinophil abs 0.3 0.0 - 0.5 K/cumm [facility] Basophil abs 0.1 0.0 - 0.1 K/cumm [facility] Neutrophil pct 44.5 % [facility] Comment: Interpretive Data Percent cell count reference ranges are not reported, since discordance with absolute values may lead to misinterpretation of CBC data. Current Interpretive Data was last revised on 2017. Imm gran pct 0.3 % [facility] Comment: Interpretive Data Percent cell count reference ranges are not reported, since discordance with absolute values may lead to misinterpretation of CBC data. Current Interpretive Data was last revised on 2017. Lymphocyte pct 40.6 % [facility] Comment: Interpretive Data Percent cell count reference ranges are not reported, since discordance with absolute values may lead to misinterpretation of CBC data. Current Interpretive Data was last revised on 2017. Monocyte pct 9.3 % [facility] Comment: Interpretive Data Percent cell count reference ranges are not reported, since discordance with absolute values may lead to misinterpretation of CBC data. Current Interpretive Data was last revised on 2017. Eosinophil pct 4.3 % [facility] Comment: Interpretive Data Percent cell count reference ranges are not reported, since discordance with absolute values may lead to misinterpretation of CBC data. Current Interpretive Data was last revised on 2017. Basophil pct 1.0 % [facility] Comment: Interpretive Data Percent cell count reference ranges are not reported, since discordance with absolute values may lead to misinterpretation of CBC data. Current Interpretive Data was last revised on 2017. Blood 12/14/2022 2:42 PM CDT 12/14/2022 3:45 PM CDT Edilberto Mayers MD LAB BLOOD ORDERABLES Neris l Result Performing Organization Address City/[facility]/ZIP Co de Phone Number [facility] [address] [employer] [place], [place] [id number] * Lipase (12/14/2022 2:42 PM CDT) Pathologist [facility] Lipase 27 10 - 99 Units/L [facility] Blood (Blood, Venous) 12/14/2022 2:42 PM CDT 12/14/2022 3:44 PM CDT Sanju Caballero DO LAB BLOOD ORDERABLES Final Result Performing Organization Address [facility] Co de Phone Number [facility] [address] [employer] [place] [address] * Comprehensive metabolic panel (12/14/2022 2:42 PM CDT) Pathologist [facility] Sodium 139 135 - 145 mmol/L [facility] Potassium, pl 4.0 3.3 - 4.9 mmol/L [facility] Chloride 106 97 - 110 mmol/L [facility] CO2 23 22 - 32 mmol/L [facility] Anion gap 10 2 - 15 mmol/L [facility] BUN 8 8 - 25 mg/dL [facility] Creatinine 0.81 0.60 - 1.10 mg/dL [facility] Glucose 111 70 - 199 mg/dL [facility] Comment: Interpretive Data Fasting glucose >/= 126 [...] interpretive data was last revised 2022. Calcium 9.1 8.5 - 10.3 mg/dL [facility] Bilirubin, total 0.5 0.1 - 1.2 mg/dL [facility] Protein, pl 6.8 6.5 - 8.5 g/dL [facility] Albumin 3.8 3.5 - 5.0 g/dL [facility] Alk phos 51 40 - 130 Units/L [facility] ALT 21 7 - 45 Units/L [facility] AST 26 10 - 45 Units/L [facility] Blood 12/14/2022 2:42 PM CDT 12/14/2022 3:44 PM CDT us Sanju Caballero DO LAB BLOOD ORDERABLES Final Result [facility] [address] Department [place] [address] * CBC with auto differential (12/14/2022 2:42 PM CDT) WBC 6.0 3.8 - 9.9 K/cumm [facility] Hgb 13.3 11.9 - 15.5 g/dL [facility] Hct 40.6 35.6 - 45.5 % [facility] Plt 372 150 - 400 K/cumm [facility] MPV 10.3 9.1 - 12.3 fL [facility] RBC 4.49 3.90 - 5.20 M/cumm [facility] MCV 90.4 81.3 - 96.4 fL [facility] MCH 29.6 27.1 - 33.3 pg [facility] MCHC 32.8 32.3 - 35.7 g/dL [facility] RDW CV 12.9 11.1 - 14.9 % [facility] RDW SD 42.8 35.7 - 48.1 fL [facility] NRBC abs 0.00 0.00 - 0.01 K/cumm [facility] Blood (Blood, Venous) 12/14/2022 2:42 PM CDT 12/14/2022 3:45 PM CDT Sanju Caballero DO LAB BLOOD ORDERABLES Final Result [facility] [address] Department [place] [address] documented in this encounter Visit Diagnoses Diagnosis Abdominal pain- Primary Abdominal pain, unspecified site documented in this encounter Administered Medications Inactive Administered Medications - up to 3 most recent administrations Medication Order MAR Action Action Date Dose Rate Site HYDROmorphone (DILAUDID) injection 1 mg 1 mg, intravenous, Administer over 2 Minutes, Once, On 12/14/22 at 1557, For 1 dose Given 12/14/2022 4:08 PM CDT 1 mg ioversoL (OPTIRAY 350) syringe 125 mL 125 mL, intravenous, Once in imaging, contrast, Starting on Thu12/14/22 at 1800, For 1 dose Contrast Given 12/14/2022 6:05 PM CDT 120 mL Lactated Ringer's (LR) bolus 1,000 mL 1,000 mL, intravenous, Once, On 12/14/22 at 1557, For 1 dose New Bag 12/14/2022 4:08 PM CDT 1,000 mL metoclopramide (REGLAN) injection 10 mg 10 mg, intravenous, Once, On 12/14/22 at 1935, For 1 dose Given 12/14/2022 7:40 PM CDT 10 mg morphine injection 4 mg 4 mg, intravenous, Administer over 4 Minutes, Once, On Thu12/14/22 at 1935, For 1 dose Given 12/14/2022 7:40 PM CDT 4 mg ondansetron (ZOFRAN) injection 4 mg 4 mg, intravenous, Administer over 2 Minutes, Once, On 12/14/22 at 1557, For 1 dose Given 12/14/2022 4:08 PM CDT 4 mg ondansetron (ZOFRAN) injection 4 mg 4 mg, intravenous, Administer over 2 Minutes, Once, On 12/14/22 at 1722, For 1 dose Given 12/14/2022 5:23 PM CDT 4 mg documented in this encounter Discontinued Medications Medication Sig Discontinue Reason Start Date End Da te escitalopram (LEXAPRO) 20 mg tabletIndications:Anxie ty Take 1 tablet (20 mg total) by mouth daily Therapy completed 10/13/2019 12/14/2022 fluticasone furoate-vilanterol (Breo Ellipta) 100-25 mcg/dose diskus inhaler Inhale 1 puff daily Duplicate order 09/02/2019 12/14/2022 ondansetron (ZOFRAN) 4 mg tabletIndications:Preve ntion of Post-Operative Nausea and Vomiting Take 1-2 tablets (4-8 mg total) by mouth every 6 (six) hours as needed for nausea or vomiting Therapy completed 02/01/2021 12/14/2022 documented as of this encounter Historical Medications * This list may reflect changes made after this encounter. sertraline (ZOLOFT) 100 mg tablet Take 1 tablet (100 mg total) by mouth daily fluticasone furoate-vilantero L (BREO ELLIPTA) 100-25 mcg/dose diskus inhaler Inhale 1 puff once daily Rinse mouth with water after use. Do not swallow. added in this encounter Active and Recently Administered Medications Times are shown in CDT. Scheduled Medication Order 12/12/2022 12/13/2022 12/14/2022 HYDROmorphone (DILAUDID) injection 1 mg (COMPLETED) 1 mg, intravenous, Administer over 2 Minutes, Once, On 12/14/22 at 1557, For 1 dose 1608 (Given - Provid er: Baldev Caldwell RN) Lactated Ringer's (LR) bolus 1,000 mL (COMPLETED) 1,000 mL, intravenous, Once, On 12/14/22 at 1557, For 1 dose 1608 (New Bag - Prov ider: Baldev Caldwell RN)1933 (Stopped - Provider: Edye Jasmin Allen, RN) metoclopramide (REGLAN) injection 10 mg (COMPLETED) 10 mg, intravenous, Once, On 12/14/22 at 1935, For 1 dose 1940 (Given - Provid er: Baldev Caldwell RN) morphine injection 4 mg (COMPLETED) 4 mg, intravenous, Administer over 4 Minutes, Once, On 12/14/22 at 1935, For 1 dose 1940 (Given - Provid er: Baldev Caldwell RN) ondansetron (ZOFRAN) injection 4 mg (COMPLETED) 4 mg, intravenous, Administer over 2 Minutes, Once, On 12/14/22 at 1557, For 1 dose 1608 (Given - Provid er: Baldev Caldwell RN) ondansetron (ZOFRAN) injection 4 mg (COMPLETED) 4 mg, intravenous, Administer over 2 Minutes, Once, On 12/14/22 at 1722, For 1 dose 1723 (Given - Provid er: Charly Allen RN) PRN Medication Order 12/12/2022 12/13/2022 12/14/2022 ioversoL (OPTIRAY 350) syringe 125 mL (COMPLETED) 125 mL, intravenous, Once in imaging, contrast, Starting on 12/14/22 at 1800, For 1 dose 1805 (Contrast Given - Provider: Karely Whaley RT) documented in this encounter Orders IV Count Last Ordered Date First Orde red Date SALINE LOCK IV 1 12/14/2022 documented in this encounter Care Teams Milking Machine Operator Relationship Specialty [place] [address] [place] [id number] PCP - General Pediatrics 07/19/19 01/26/23 Johnna Tinajero MD [address] [address] 07/19/19 [place] [address] [place] [id number] Consulting Physician General Surgery 02/01/21 documented as of this encounter
--- OUTSIDE RECORDS SUMMARY | 2024-08-28 02:12 | XMS_ITS | Encounter Summary ---
Author Organization [facility] Healthcare Address [address] [place] [address] Care Team Providers Care Coal And Ash Supervisor Name Role Phone Johnna Tinajero MD Primary Care Provider + Johnna Tinajero MD Unavailable [phone] Luciano Edwards MD Unavailable [phone] Encounter Details Date Type Department Care Team (Late st Contact Info) Description 02/01/2021 11:09 AM CDT Anesthesia Event [facility] Operating Room [address] [place] [id number] Jeff Garcia MD [address] [facility] [place] [address] Paty Blank PA [address] [place] [address] Anesthesia Record Procedure Summary Procedure Name Responsible Anesthesiologist Anesthesia Start Time Anesthesia Stop Time Robotic Assisted Cholecystectomy (Abdomen) Jeff Garcia MD 02/01/21 1109 02/01/21 1325 Events Date Time Event Comment 02/01/2021 1036 1107 In Room 1109 An Start 1109 An Start Data 1115 An Induction The patient was reevaluated immediately before moderate or deep sedation use and before anesthesia induction. 1118 An Intubation 1129 Anesthesia Ready 1144 Proc Start 1145 Incision Start 1315 Proc Fin 1316 An Extubation 1316 an stop data 1320 Out of Room 1325 Handoff to RN I completed my handoff to the receiving nurse during which we: 1. Patient identified 2. Responsible provider identified 3. Pertinent medical history reviewed 4. Procedure type and surgical course discussed 5. Intraoperative anesthetic management and any significant issues discussed 6. Expectations and concerns for postop period discussed 7. Questions solicited from receiving nurse 8. Patient disposition at the time of handoff: PACU 1325 An Stop Meds Name Total midazolam 2 mg fentaNYL 250 mcg lidocaine (CARDIAC) syringe 2 % 5 mL propofol 200 mg phenylephrine 100 mcg/mL 600 mcg glycopyrrolate 0.2 mg neostigmine 3 mg ondansetron 4 mg dexamethasone 4 mg/ml 8 mg vecuronium 7 mg ceFAZolin (ANCEF) 2,000 mg/20 mL in ster ile water (premix) 2,000 mg 2,000 mg ketamine 40 mg haloperidol (HALDOL) injection 1 mg Lactated Ringer's (LR) infusion 1,900 mL * Agents Name O2 Air Desflurane Inspired Desflurane * Blood No blood administrations on file. Lines, Drains, and Airways Type Details Placement Removal RETIRED Surgical Site 11/04/19; 1315; Posterior, Mid-line; Back; LP site; 08/02/24 (Retired LDA, Removed/Completed by Sudden[employer] with LDA Utility); 1213 (Retired LDA, Removed/Completed by [employer] with LDA Utility) 11/04/19 1315 by Mile Ha RN 08/02/24 1213 by Discharge Provider, Automatic Peripheral IV Placement Date: 02/01/21; Placement Time: 945; Catheter Size: 20 G; Orientation: Left, Posterior; Location: Hand; Site Prep: Chlorhexidine; Inserted by: gordo coleman; Insertion Attempts: 1; Patient Tolerance: Tolerated well; Removal Date: 02/01/21; Removal Time: 1525 02/01/21 0946 by Ana Sanii RN 02/01/21 1525 by Sherly Gifford, GLENDA ETT Placement Date: 02/01/21; Placement Time: 1127 (created via procedure documentation); Mask Ventilation: 1; Technique: Direct laryngoscopy; Type: ETT - single; Single Lumen Tube Size: 7 mm; Cuffed: Yes; Laryngoscope: Shahana; Blade Size: 3; Location: Oral; Grade View: Grade I; Insertion Attempts: 1; Placement Verification: Auscultation, Capnometry; Removal Date: 02/01/21; Removal Time: 131502/01/21 1127 by Jeff Garcia MD 02/01/21 1316 by Jeff Garcia MD RETIRED Surgical Site 02/01/21; 1259; Abdomen; 08/02/24 (Retired LDA, Removed/Completed by [employer] with LDA Utility); 1213 (Retired LDA, Removed/Completed by [employer] with LDA Utility) 02/01/21 1259 by Berny Espinoza RN 08/02/24 1213 by Discharge Provider, Automatic documented in this encounter Social History Tobacco [...] on file 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 Gender Identity Not on file Sexual Orientation Not on file documented as of this encounter OR Notes * Anesthesia Postprocedure Evaluation - Jeff Garcia MD - 02/01/2021 4:37 PM CDT Patient: Nina Bautista Procedure Summary Date: 02/01/21 Room / Location: [facility] OPERATING ROOM 15W / [facility] OPERATING ROOM Anesthesia Start: 1109 Anesthesia Stop: 1325 Procedure: Robotic Assisted Cholecystectomy (N/A Abdomen) Diagnosis: Dyskinesia of gallbladder (Dyskinesia of gallbladder [K82.8]) Surgeons: Luciano Edwards MD Responsible Provider: Jeff Garcia MD Anesthesia Type: general ASA Status: 2 Anesthesia Type: general Last vitals BP 132/73 Pulse 91 Temp 37.7 ??C (99.8 ??F) (Temporal) Resp 27 SpO2 97% Anesthesia Post Evaluation Patient location during evaluation: PACU Patient participation: complete - patient participated Level of consciousness: follows simple commands and fully awake Pain score: 0 Pain management: satisfactory to patient Airway patency: adequate Evidence of recall: no Cardiovascular status: acceptable and hemodynamically stable Respiratory status: acceptable Hydration status: acceptable Pt is: normothermic Nausea/Vomiting status: none No complications documented. * Anesthesia Procedure Notes - Jeff Garcia MD - 02/01/2021 11:27 AM CDTAssociated Order(s): Airway Airway Patient location: OR Urgency: elective Date/time: 02/01/2021 11:27 AM Indications for airway management: anesthesia Difficult airway: no Staff: Placed by: Anesthesiologist: Jeff Garcia MD Emergent airway documentation: Risks and benefits discussed: yes Consent obtained: yes Consent given by: patient and parent Airway prep: Preoxygenated: yes Patient position: sniffing Mask difficulty assessment: 1 - vent by mask Sedation level during airway: GA Final airway details: Final airway type: endotracheal airway Tube type: ETT ETT size: 7.0 mm Cuffed: yes Technique used for successful ETT placement: direct laryngoscopy Insertion site: oral Blade type: Shahana Blade size: 3 Cormack-Lehane (direct): grade I - full view of glottis Cuff inflated with: air ETT to lips: 23 cm Placement verified by: auscultation and CO2 detection Airway secured with: silk tape Number of attempts: 1 * Anesthesia Preprocedure Evaluation - Jeff Garcia MD - 02/01/2021 9:59 AM CDT Images from the original note were not included. Anesthesia Evaluation Nina Bautista is a 20 y.o. female Procedure(s): Robotic Assisted Cholecystectomy Pre-Op Diagnosis Codes: * Dyskinesia of gallbladder [K82.8] Results for NINA BAUTISTA ( ) as of 02/01/2021 10:34 Ref. Range 01/29/2021 12:51 COVID-19 RNA Unknown Not Detected NPO Status Date of Last Liquid: 01/31/21 Time of Last Liquid: 0 Date of Last Solid: 01/31/21 Time of Last Solid: 2329 HISTORY Past Medical History Respiratory + Asthma Musculoskeletal/Pain + Headaches - migraine headaches. Endocrine / Other + Obesity (BMI >30) Functional Capacity Functional capacity: 4-6 METs Day of Surgery assessments + Possibility of assessed - HCG negative (see labs). Review of Systems Pertinent negatives: productive cough; [...] sinus rhythm with sinus arrhythmia with short [place] ??? Anxiety 07/20/2019 ??? Asthma ??? Nausea [...] 90 mcg/actuation inhaler Past Month -- -- Provider, Historical, MD cetirizine (ZyrTEC) 10 mg tablet Past Week -- -- Jesus Oliva MD escitalopram (LEXAPRO) 20 mg tablet 01/31/2021 [...] mg-25 mcg per tablet 01/31/2021 08/17/19 -- Jesus Oliva MD ondansetron (ZOFRAN) 4 mg tablet 06/13/20 -- Madyson Uriostegui, DEISI Take 1 tablet (4 mg total) by mouth every 8 (eight) hours as needed for nausea or vomiting prochlorperazine (Compazine) 10 mg tablet 11/10/19 -- Nehal Riggs DO Take 1 tablet (10 mg total) by [...] allergies reviewed. Attestation: This PAT evaluation 02/01/2021. Airway Exam: Mallampati: I Cervical ROM: FROM TM distance: >4 Cardiovascular Exam: Rate: regular Rhythm: regular Pulmonary Exam: LCTA, bilat Dental Exam: Appears intact Current state: Patient's current state is cooperative and interactive. Anesthesia Plan ASA 2 Planned anesthesia: General Team communication plan: oral ET tube Induction: Induction: intravenous. Postoperative Plan: Postoperative administration opioids intended. No postoperative mechanical ventilation intended. Patient's planned disposition post procedure is 23 hour admit. Informed Consent: Anesthesia plan and risks discussed [...] All questions answered. documented in this encounter Plan of Treatment Not on file documented as of this encounter Procedures Procedure Name Priority Date/Time Associated Diagnosis Comments NJ AN PROCEDURE PLACEHOLDER Routine 02/01/2021 11:27 AM CDT NJ AN ELECTIVE ENDOTRACHEAL AIRWAY Routine 02/01/2021 11:27 AM CDT documented in this encounter Results * NJ AN ELECTIVE ENDOTRACHEAL AIRWAY, NJ AN PROCEDURE PLACEHOLDER (02/01/2021 11:27 AM CDT) Narrative Jeff Garcia MD - 02/01/2021 11:27 AM CDT Jeff Garcia MD ? 02/01/2021 11:29 AM Airway Patient location: OR Urgency: elective Date/time: 02/01/2021 11:27 AM Indications for airway management: anesthesia Difficult airway: no Staff: Placed by: Anesthesiologist: Jeff Garcia MD Emergent airway documentation: Risks and benefits discussed: yes Consent obtained: yes Consent given by: patient and parent Airway prep: Preoxygenated: yes Patient position: sniffing Mask difficulty assessment: 1 - vent by mask Sedation level during airway: GA Final airway details: Final airway type: endotracheal airway Tube type: ETT ETT size: 7.0 mm Cuffed: yes Technique used for successful ETT placement: direct laryngoscopy Insertion site: oral Blade type: Shahana Blade size: 3 Cormack-Lehane (direct): grade I - full view of glottis Cuff inflated with: air ETT to lips: 23 cm Placement verified by: auscultation and CO2 detection Airway secured with: silk tape Number of attempts: 1 Jeff Garcia MD ANESTHESIA ORDERABLES Fi nal Result documented in this encounter Visit Diagnoses Not on filedocumented in this encounter Administered Medications Inactive Administered Medications - up to 3 most recent administrations Medication Order MAR Action Action Date Dose Rate Site ceFAZolin (ANCEF) 2,000 mg/20 mL in sterile water (premix) 2,000 mg 2,000 mg, intravenous, at 400 mL/hr, Administer over 3 Minutes, Once, On Thu02/01/21 at 1100, For 1 dose, Pre-Op, Indications: Prophylaxis, SurgicalIndications:Prophylaxis , Surgical Given 02/01/2021 11:19 AM CDT 2,000 mg dexAMETHasone (DECADRON) 4 mg/mL injection intravenous, Administer over 2 Minutes, As needed, Starting on Thu02/01/21 at 1137, Anesthesia Intra-op Given 02/01/2021 11:37 AM CDT 8 mg fentaNYL (SUBLIMAZE) preservative free injection intravenous, As needed, Starting on Thu02/01/21 at 1112, Anesthesia Intra-op Given 02/01/2021 11:47 AM CDT 50 mcg Given 02/01/2021 11:43 AM CDT 50 mcg Given 02/01/2021 11:34 AM CDT 50 mcg glycopyrrolate (ROBINUL) injection intravenous, Administer over 1 Minutes, As needed, Starting on Thu02/01/21 at 1258, Anesthesia Intra-op Given 02/01/2021 12:58 PM CDT 0.2 mg haloperidol (HALDOL) injection intravenous, As needed, Starting on Thu02/01/21 at 1230, Anesthesia Intra-op Given 02/01/2021 12:30 PM CDT 1 mg ketamine (KETALAR) 50 mg/5 mL (10 mg/mL) in sodium chloride 0.9% (premix) intravenous, As needed, Starting on Thu02/01/21 at 1142, Anesthesia Intra-op Given 02/01/2021 11:42 AM CDT 20 mg Given 02/01/2021 11:35 AM CDT 20 mg Lactated Ringer's (LR) infusion 30 mL/hr, intravenous, Continuous, Starting on Thu02/01/21 at 1045, Pre-Op New Bag 02/01/2021 11:56 AM CDT Rate/Dose Verify 02/01/2021 11:09 AM CDT 30 mL/ hr New Bag 02/01/2021 10:06 AM CDT 30 mL/hr 30 mL/hr lidocaine (cardiac) (XYLOCAINE) preservative free injection intravenous, As needed, Starting on Thu02/01/21 at 1116, Anesthesia Intra-op, Indications: Ventricular ArrhythmiasIndications:Ventricular Arrhythmias Given 02/01/2021 11:16 AM CDT 5 mL midazolam (VERSED) 1 mg/mL preservative free injection intravenous, Administer over 2 Minutes, As needed, Starting on Thu02/01/21 at 1106, Anesthesia Intra-op Given 02/01/2021 11:06 AM CDT 2 mg neostigmine injection intravenous, Administer over 3 Minutes, As needed, Starting on Thu02/01/21 at 1258, Anesthesia Intra-op Given 02/01/2021 12:58 PM CDT 3 mg ondansetron (ZOFRAN) injection intravenous, Administer over 2 Minutes, As needed, Starting on Thu02/01/21 at 1107, Anesthesia Intra-op Given 02/01/2021 11:07 AM CDT 4 mg phenylephrine (ALEX-SYNEPHRINE) 1 mg/10 mL (100 mcg/mL) in sodium chloride 0.9% (premix) intravenous, As needed, Starting on Thu02/01/21 at 1142, Anesthesia Intra-op Given 02/01/2021 12:09 PM CDT 200 mcg Given 02/01/2021 12:04 PM CDT 200 mcg Given 02/01/2021 11:42 AM CDT 200 mcg propofoL (DIPRIVAN) 10 mg/mL IV intravenous, As needed, Starting on Thu02/01/21 at 1116, Anesthesia Intra-op Given 02/01/2021 11:16 AM CDT 200 mg vecuronium (NORCURON) injection intravenous, Administer over 1 Minutes, As needed, Starting on Thu02/01/21 at 1116, Anesthesia Intra-op Given 02/01/2021 11:16 AM CDT 7 mg documented in this encounter Care Teams Coal And Ash Supervisor Relationship Specialty Start Date End Date Johnna Tinajero MD [address] [phone] PCP - General Pediatrics 07/19/19 01/26/23 Johnna Tinajero MD [address] [phone] 07/19/19 Luciano Edwards MD [address] [address] Consulting Physician General Surgery 02/01/21 documented as of this encounter
--- OUTSIDE RECORDS SUMMARY | 2024-08-28 02:12 | XMS_ITS | Encounter Summary ---
Author Organization [facility] Address [address] [place] [phone] Phone Care Team Providers Care Fur Joiner Name Role Phone Johnna Tinajero MD Primary Care Provider + Johnna Tinajero MD Unavailable [phone] Luciano Edwards MD Unavailable [phone] Encounter Details Date Type Department Care Team (Late st Contact Info) Description 08/20/2021 Telephone [facility] [address] [facility] [address] [place] [address] Johnna Tinajero MD [address] [place] [address] [address] [place] [address] Social History Tobacco Use Types [...] on file 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 Yes Temperature? Yes; HX fever x2 days (TMAX 102) afebrile today. Nasal drainage?No Eye drainage? No Ear drainage? No Sore throat? No Headaches? Yes Hx of Asthma? Yes Cough? Yes Wheezing? No Symptoms of distress? none Activity level? Decreased activity level Appetite? Decreased PO intake. Hydrating well. Medications given? None Recent exposures to illness? No; No known covid-19 exposure. Other symptoms/notes? Yes- sinus pressure/pain. Patient had a negative at home covid-19 test. Mom requesting appointment for patient. ADVICE GIVEN: No longer appointments available today. Can CB tomorrow in AM to schedule same day urgent appointment or take to [facility]. Reviewed sxs management. CB in meantime for new/worsening sxs, questions, concerns, or needs. Mom verbalizes understanding and agrees with plan of care. X RAY CONSULTANT X RAY CONSULTANT documented in this encounter Plan of Treatment Not on file documented as of this encounter Visit Diagnoses Not on filedocumented in this encounter Care Teams Fur Joiner Relationship Specialty Start Date End Date Johnna Tinajero MD [address] [address] PCP - General Pediatrics 07/19/19 01/26/23 Johnna Tinajero MD [address] [address] 07/19/19 Luciano Edwards MD [address] [facility] [address] [place] [address] Consulting Physician General Surgery 02/01/21 documented as of this encounter
--- OUTSIDE RECORDS SUMMARY | 2024-08-28 02:12 | XMS_ITS | Encounter Summary ---
Author Organization [facility] Address [address] [place] [address] Care Team Providers Care Pipe Bowl Paint Trimmer Name Role Phone Johnna Tinajero MD Primary Care Provider + Johnna Tinajero MD Unavailable [phone] Reason for Referral * Diagnostic Imaging (Routine) - Closed Specialty Diagnoses / Procedures Referred By Contac t Referred To Contact Diagnoses Upper abdominal pain, unspecified Procedures NM [place]atob[place] [address] [place] [address] Phone: tel: fax: [facility] [address] [place] [address] Referral ID Status Reason Start Date Expiration Date Visits Re quested Visits Authorized [id number] Closed 12/27/2020 01/25/2022 2 2 Reason for Visit * Diagnostic Imaging (Routine) - Closed Specialty Diagnoses / Procedures Referred By Contac t Referred To Contact Diagnoses Upper abdominal pain, unspecified Procedures NM [place] [address] [place] [address] Phone: tel: fax: [address] [phone] Referral ID Status Reason Start Date Expiration Date Visits Re quested Visits Authorized [id number] Closed 12/27/2020 01/25/2022 2 2 Encounter Details Date Type Department Care Team (Latest Contact Info) Description 01/04/2021 7:22 AM CDT - 01/04/2021 11:59 PM CDT Hospital Encounter [facility] - Imaging [address] [place] [id number] [place] [address] [place] [address] Upper abdominal pain, unspecified Discharge Disposition: Discharge to home or self [...] on file 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 Gender Identity Not on file Sexual Orientation Not on file documented as of this encounter Medications at Time of Discharge albuterol HFA (PROVENTIL HFA,VENTOLIN HFA,PROAIR HFA) 90 mcg/actuation inhaler Inhale 2 puffs every 6 (six) hours as needed for wheezing or shortness of breath cetirizine (ZyrTEC) 10 mg tablet Take 10 mg by mouth daily norgestimate-ethin yl estradiol (ORTHO TRI-CYCLEN LO) 0.18/0.215/0.25 mg-25 mcg per tablet Take 1 tablet by mouth daily 0 08/17/2019 escitalopram (LEXAPRO) 20 mg tabletIndications: Anxiety Take 1 tablet (20 mg total) by mouth daily 30 tablet 2 10/13/2019 3 fluticasone furoate-vilanterol (Breo Ellipta) 100-25 mcg/dose diskus inhaler Inhale 1 puff daily 60 each 09/02/2019 3 hyoscyamine (LEVSIN) 0.125 mg SL tabletIndications: Urinary Incontinence Take 1 tablet (0.125 mg total) by mouth every 4 (four) hours as needed for cramping 30 tablet 2 11/23/2020 1 metoclopramide (REGLAN) 10 mg tablet Take 1 tablet (10 mg total) by mouth every 6 (six) hours as needed (nausea, vomiting) 14 tablet 09/05/2020 2 neomycin (MYCIFRADIN) 500 mg tabletIndications: SIBO Take 1 tablet (500 mg total) by mouth 2 (two) times a day 28 tablet 11/23/2020 2 ondansetron (ZOFRAN) 4 mg tablet Take 1 tablet (4 mg total) by mouth every 8 (eight) hours as needed for nausea or vomiting 50 tablet 06/13/2020 2 prochlorperazine (Compazine) 10 mg tablet Take 1 tablet (10 mg total) by mouth every 6 (six) hours as needed for nausea or vomiting Take with benadryl. 30 tablet 2 11/10/2019 2 documented as of this encounter Discharge Disposition Disposition Code Departure Means Destination Discharge to home or self care documented in this encounter Plan of Treatment Not on file documented as of this encounter Procedures Procedure Name Priority Date/Time Associated Diagnosis Comments NM HEPATOBILIARY IMAGING W PHARMACEUTICAL INTERVENTION Schedule Routine, Read Routine (OP Routine) 01/04/2021 10:06 AM CDT Upper abdominal pain, unspecified documented in this encounter Results * NM Hepatobiliary Imaging W GBEF (01/04/2021 10:06 AM CDT) Anatomical Region Laterality Modality Body N/A Nuclear Medicine 01/04/2021 10:1 1 AM CDT Impressions 01/04/2021 10:11 AM CDT Abnormally diminished gallbladder ejection fraction of only 22%. ??Although nonspecific, this can be seen with biliary dyskinesia. ??Clinical correlation is recommended. Electronically signed by: Robert Phelps M.D. Narrative 01/04/2021 10:11 AM CDT Nuclear medicine hepatobiliary gallbladder imaging study with ejection fraction calculation. HISTORY: Abdominal pain. FINDINGS: The patient received 5.3 mCi technetium 99 Choletec. There is prompt accumulation of radiopharmaceutical in the liver, gallbladder, biliary system, and bowel. The patient drank 8 ounces of ensure plus resulting in a gallbladder ejection fraction of 22%. ??(Normal range 34% or greater) Procedure Note Robert Phelps MD - 01/04/2021 Nuclear medicine hepatobiliary gallbladder imaging study with ejection fraction calculation. HISTORY: Abdominal pain. FINDINGS: The patient received 5.3 mCi technetium 99 Choletec. There is prompt accumulation of radiopharmaceutical in the liver, gallbladder, biliary system, and bowel. The patient drank 8 ounces of ensure plus resulting in a gallbladder ejection fraction of 22%. (Normal range 34% or greater) IMPRESSION: Abnormally diminished gallbladder ejection fraction of only 22%. Although nonspecific, this can be seen with biliary dyskinesia. Clinical correlation is recommended. Electronically signed by: Robert Phelps M.D. Arian Adam MD [facility] PROCEDURES Final Result documented in this encounter Visit Diagnoses Diagnosis Upper abdominal pain, unspecified documented in this encounter Administered Medications Inactive Administered Medications - up to 3 most recent administrations Medication Order MAR Action Action Date Dose Rate Site tc-99m mebrofenin (choletec) injection 5.3 millicurie 5.3 millicurie, intravenous, Once in imaging, radiopharmaceutical, Starting on Thu01/04/21 at 0755, For 1 dose, Indications: Diagnostic RadiographyIndications:Diag nostic Radiography Given 01/04/2021 7:55 AM CDT 5.3 millicuries documented in this encounter Orders Medications Ordered That Jonny ht Not Have Been Administered Count Last Ordered Date First Ordered Date tc-99m mebrofenin (choletec) injection 5.3 millicurie 1 01/04/2021 documented in this encounter Care Teams Pipe Bowl Paint Trimmer Relationship Specialty Start Date End Date Johnna Tinajero MD [address] [address] PCP - General Pediatrics 07/19/19 01/26/23 Johnna Tinajero MD [address] [address] 07/19/19 documented as of this encounter
--- OUTSIDE RECORDS SUMMARY | 2024-08-28 02:12 | XMS_ITS | Encounter Summary ---
Author Organization [facility] Address [address] [place] [phone] Phone Care Team Providers Care Emergency Dispatcher Name Role Phone Johnna Tinajero MD Primary Care Provider + Johnna Tinajero MD Unavailable [phone] Luciano Edwards MD Unavailable [phone] Encounter Details Date Type Department Care Team (Late st Contact Info) Description 09/06/2021 Telephone [facility] [address] [facility] [address] [place] [address] Johnna Tinajero MD [address] [place] [address] [address] [place] [address] Social History Tobacco Use Types [...] on file 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 MOM ASKED ABOUT FORM NEEDING COMPLETION I INFORMED MOM NINA NEEDS A COMPLETE PHYSICAL BEFORE WE CAN COMPLETE THE FORM SO APPOINTMENT MADE FOR August FOR CHECK UP. MOM WILL INFORM NINA STEINBERGWELL RHANGER PIPE documented in this encounter Plan of Treatment Not on file documented as of this encounter Visit Diagnoses Not on filedocumented in this encounter Care Teams Emergency Dispatcher Relationship Specialty Start Date End Date Johnna Tinajero MD [address] [address] PCP - General Pediatrics 07/19/19 01/26/23 Johnna Tinajero MD [address] [address] 07/19/19 Luciano Edwards MD [address] [address] Consulting Physician General Surgery 02/01/21 documented as of this encounter
--- OUTSIDE RECORDS SUMMARY | 2024-08-28 02:12 | XMS_ITS | Encounter Summary ---
Author Organization [facility] Address [address] [place] [address] [address] [place] [address] Phone Care Team Providers Care Medical Office Receptionist Assistant Name Role Phone Johnna Tinajero MD Primary Care Provider + Johnna Tinajero MD Unavailable [phone] Luciano Edwards MD Unavailable [phone] Reason for Visit * Reason Comments Well Child 21 year old Encounter Details Date Type Department Care Team (Late st Contact Info) Description 10/01/2021 11:30 AM SPOOL MAKER Office Visit [facility] [address] [facility] [address] [place] [address] Johnna Tinajero MD [address] [place] [address] [address] [place] [address] Well adult exam (Primary Dx); Obesity without serious comorbidity with body mass index (BMI) greater than 99th percentile for age in pediatric patient, unspecified obesity type; Screen for STD (sexually transmitted disease); Chronic nausea Social History Tobacco Use Types Packs/Day Years [...] on file Legal Sex 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 Gender Identity Not on file Sexual Orientation Not on file documented as of this encounter Last Filed Vital Signs Vital Sign Reading Time Taken Comments Blood Pressure 118/80 10/01/2021 11:46 AM SPOOL MAKER Pulse - - Temperature - - Respiratory Rate - - Oxygen Saturation - - Inhaled Oxygen Concentration - - Weight 90.8 kg (200 lb 3 oz) 10/01/2021 11:46 AM SPOOL MAKER Height 161 cm (5' 3.39 ) 10/01/2021 11:46 AM SPOOL MAKER Body Mass Index 35.03 10/01/2021 11:46 AM SPOOL MAKER documented in this encounter Progress Notes * Johnna Tinajero MD - 10/01/2021 11:30 AM CST Subjective Nina Coyne is a 21 y.o. female who is here for her well child visit accompanied by mother Patient Active Problem List Diagnosis ??? History of migraine headaches ??? Obesity ??? Asthma, moderate persistent, well-controlled ??? Abnormal electrocardiography ??? Dander (animal) allergy ??? Vitamin D deficiency ??? Irregular menses ??? Abdominal pain ??? Asthma ??? Anxiety ??? Chronic nausea ??? Vasovagal syncope ??? Vomiting without nausea ??? 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 Quite variable hours No health concerns today. Still having ongoing GI problems seeing specialists in gastroenterology under Dr. Adam. Is going to have a colonoscopy. No routine GI medications Asthma: on Breo and doing well, needs albuterol occasionally, maybe twice in a month. Unclear triggers. occsionally takes zofran. Had bronchitis right before Philip and was on Zpak and prednisone Last saw rn gynecology this summer and taking ortho tricyclen and working well. Regular menses, last 4 days. Not needing any allergy medication. Taking Lexapro 20 mg daily, says it is working well for anxiety. Her PHQ 9 score today is 3 and herscared score is 17 Seeing a therapist in [place], right now once every two weeks. When goes to [place] for four months won't see anyone. Passing out spells: last was November of last year, no close calls. Denies feeling like going to pass out. Is driving. No episodes while driving. No vitamin D supplement. Current Outpatient Medications: ??? fluticasone furoate-vilanterol (Breo Ellipta) 100-25 mcg/dose diskus inhaler, Inhale 1 puff daily, Disp: 60 each, Rfl: 0 ??? norgestimate-ethinyl estradiol (ORTHO TRI-CYCLEN LO) 0.18/0.215/0.25 mg-25 mcg per tablet, Take1 tablet by mouth daily, Disp: , Rfl: 0 ??? albuterol HFA (PROVENTIL HFA,VENTOLIN HFA,PROAIR HFA) 90 mcg/actuation inhaler, Inhale 2 puffs every 6 hours as needed for wheezing or shortness of breath , Disp: , Rfl: ??? cetirizine (ZyrTEC) 10 mg tablet, Take 10 mg by mouth daily, Disp: , Rfl: ??? escitalopram (LEXAPRO) 20 mg tablet, Take 1 tablet (20 mg total) by mouth daily, Disp: 30 tablet, Rfl: 2 ??? ondansetron (ZOFRAN) 4 mg tablet, Take 1-2 tablets (4-8 mg total) by mouth every 6 (six) hours as needed for nausea or vomiting, Disp: 20 tablet, Rfl: 0 Allergies Allergen Reactions ??? Dog Dander Hives Reaction: HIVES, ??? Penicillins Other (See comments) and Rash As a child Reaction: NAUSEA;, As a child Immunization History Administered Date(s) Administered ??? DTaP 2002, 2002, 2002, 02/24/2003, 02/23/2006 ??? HPV9 02/22/2015, 12/06/2015, 06/09/2016 ??? Hep A, Unspecified 03/30/2007, 02/01/2008 ??? Hep B Vaccine 2002, 2002, 2002 ??? HiB 2002, 2002, 2002, 02/24/2003 ??? IPV 2002, 2002, 2002, 02/23/2006 ??? Influenza, Quadrivalent, Cell Culture-based MDCK, Preservative Free, Antibiotic Free, Intramuscular 08/21/2020 ??? Influenza, Quadrivalent, Split, Preservative Free, Intramuscular 06/09/2016, 06/08/2017, 07/21/2018, 06/22/2019 ??? Influenza, Trivalent, Intramuscular 06/29/2013, 06/05/2014, 07/03/2015 ??? Influenza, Trivalent, Preservative Free, Intramuscular 06/25/2006, 07/11/2010, 06/17/2011, 05/22/2012, 07/04/2013 ??? Influenza, Unspecified 06/22/2019, 07/31/2020, 07/23/2021 ??? MMR 02/24/2003, 02/23/2006 ??? Meningococcal B, Recombinant (Trumenba) 08/17/2018, 09/02/2019 ??? Meningococcal MCV4P (Menactra) 09/12/2013, 08/17/2018 ??? PPD TEST 02/23/2006 ??? Pfizer SARS-CoV-2 Vaccination (12+ yrs) PURPLE 11/01/2020, 11/24/2020, 07/23/2021 ??? Pneumococcal Conjugate, Unspecified 2002, 2002, 02/24/2003 ??? Tdap 03/25/2013, 10/01/2021 ??? Varicella 02/24/2003, 02/01/2008 I have reviewed: allergies, current medications, past family history, past medical history, past social history, past surgical history and problem list Well Child Assessment: History was provided by the mother. Nutrition Types of intake include vegetables and fruits (not eating regular meals. Usually eats something late morning and eats dinner; sometimes a snack. eats chicken and shrimp. food has been hard because ofGI symptoms). Dental The patient has a dental home. The patient brushes teeth regularly. Last dental exam was less than 6 months ago (good check up). Elimination (Has a BM once every two days; no diarrhea.) Sleep Sleep disturbance: not a regular sleep schedule, gets 5-9 hours. School Current school district is in college. Social life: hangs out with some of her friends from high school since back home. for exercise, Is playing Just dance three days a week. I don't have the energy to do more. Menses: monthly cycles without problems. has been sexually active. Denies discharge or pain. wants urine only STD screen today. High risk behaviors: Sexual activity Wears a helmet: N/A Wears seatbelt: Yes Any concerns about hearing or vision? No Objective Vitals: 10/01/21 1146 BP: 118/80 Weight: 90.8 kg (200 lb 3 oz) Height: 161 cm (5' 3.39 ) 97 %ile (Z= 1.95) based on CDC (Girls, 2-20 Years) [id number] data using vitals from 10/01/2021. 36 %ile (Z= -0.36) based on CDC (Girls, 2-20 Years) [id number] data based on Stature recorded on 10/01/2021. 97 %ile (Z= 1.91) based on CDC (Girls, 2-20 Years) BMI-for-age based on BMI available as of 10/01/2021. Growth parameters are noted and are not appropriate for age. General: Alert, NAD Skin: No rashes Head: Normocephalic, atraumatic Eyes: Sclera clear, EOMI, PERRLA Ears: Normal external ears. TMs normal bilaterally Nose: no abnormalities Mouth: Normal Neck: Supple, no LAD, full ROM Lungs: Clear to auscultation bilaterally Heart: Regular rate and rhythm, S1, S2 normal, no murmur, click, rub or gallop. Chest: Jorge Stage 4 Abdomen: Soft, non-tender; bowel sounds normal; no masses, no organomegaly : genitalia not examined, Jorge stage 4 Back: Straight, no scoliosis, normal ROM with extension & flexion Extremities: No clubbing or edema, full ROM Neuro: grossly normal, normal gait Assessment/Plan Well adolescent. 1. Well adult exam - Lipid panel; Future - Tdap vaccine greater than or equal to 7yo IM - N. gonorrhoeae/C. trachomatis Amplification Urine; Future - Lipid panel 2. Obesity without serious comorbidity with body mass index (BMI) greater than 99th percentile for age in pediatric patient, unspecified obesity type - Comprehensive metabolic panel; Future - Hemoglobin A1c; Future - Comprehensive metabolic panel - Hemoglobin A1c Discussed recommendation for more regular and sustained exercise and balanced diet; follow up with GI 3. Screen for STD (sexually transmitted disease) - N. gonorrhoeae/C. trachomatis Amplification Urine 4. Chronic nausea Continue GI follow up. 1. Anticipatory guidance. Discussed the following: Peer relations, School performance, Body image/dieting, Exercise/physicial activity, Sexual education/STD's, Seatbelt/airbags, Contraception/Family planning, Alcohol, drugs, smoking and driving and Feeding: { 3 balanced meals, Iron and Calcium and vitamin D supplementation 2. Immunizations today: per orders. History of previous adverse reactions to immunizations? No Face to face counseling was provided for each vaccine components given today including risk/benefits, contraindications, potential adverse reactions including treatment, and time was given for patient questions. 3. Weight management: The patient was counseled regarding behavior modifications, nutrition and physical activity. 4. Hearing screen, Pure tone: Normal Vision screen, Snellen: Normal 5. PHQ-9 given and reviewed. Score = 3. Follow up indicated: Yes, as above. Follow-up visit in 1 year for next well child visit, or sooner as needed. Johnna Tinajero MD L MAKER documented in this encounter Plan of Treatment Scheduled Orders Name Type Priority Associated Diagnoses Orde r Schedule Lipid panel Lab Routine Well adult exam Expected: 10/01/2021, Expires: 10/01/2022 Comprehensive metabolic panel Lab Routine Obesity without serious comorbidity with body mass index (BMI) greater than 99th percentile for age in pediatric patient, unspecified obesity type Expected: 10/01/2021, Expires: 10/01/2022 Hemoglobin A1c Lab Routine Obesity without serious comorbidity with body mass index (BMI) greater than 99th percentile for age in pediatric patient, unspecified obesity type Expected: 10/01/2021, Expires: 10/01/2022 documented as of this encounter Visit Diagnoses Diagnosis Well adult exam- Primary Routine general medical examination at a health care facility Obesity without serious comorbidity with body mass index (BMI) greater than 99th percentile for age in pediatric patient, unspecified obesity type Screen for STD (sexually transmitted disease) Screening examination for venereal disease Chronic nausea Nausea alone documented in this encounter Discontinued Medications Medication Sig Discontinue Reason Start Date End Da te metoclopramide (REGLAN) 10 mg tablet Take 1 tablet (10 mg total) by mouth every 6 (six) hours as needed (nausea, vomiting) Other 09/05/2020 10/01/2021 neomycin (MYCIFRADIN) 500 mg tabletIndications:SIB O Take 1 tablet (500 mg total) by mouth 2 (two) times a day Therapy completed 11/23/2020 10/01/2021 HYDROcodone-acetamino phen (NORCO) 5-325 mg per tabletIndications:Maryana n Take 1-2 tablets by mouth every 4 (four) hours as needed for pain Therapy completed 02/01/2021 10/01/2021 LORazepam (ATIVAN) 0.5 mg tablet Take 1 tablet (0.5 mg total) by mouth every 6 (six) hours as needed for anxiety (spasms) Therapy completed 02/01/2021 10/01/2021 senna-docusate (PERICOLACE) 8.6-50 mg Take 2 tablets by mouth 2 (two) times a day as needed for constipation May buy over the counter if not covered by insurance. Therapy completed 02/01/2021 10/01/2021 prochlorperazine (Compazine) 10 mg tablet Take 1 tablet (10 mg total) by mouth every 6 (six) hours as needed for nausea or vomiting Take with benadryl. Therapy completed 11/10/2019 10/01/2021 ondansetron (ZOFRAN) 4 mg tablet Take 1 tablet (4 mg total) by mouth every 8 (eight) hours as needed for nausea or vomiting Alternate therapy 06/13/2020 10/01/2021 documented as of this encounter Orders Lab Orders Without Results Count Last Ordered D ate First Ordered Date N. GONORRHOEAE/C. TRACHOMATI S AMPLIFICATION 1 10/01/2021 Immunization/Injection Count Last Ordered Date First Ordered Date TDAP VACCINE GREATER THAN OR EQUAL TO 7YO IM 1 10/01/2021 documented in this encounter Care Teams Medical Office Receptionist Assistant Relationship Specialty Start Date End Date Johnna Tinajero MD [address] [address] PCP - General Pediatrics 07/19/19 01/26/23 Johnna Tinajero MD [address] [address] 07/19/19 Luciano Edwards MD [address] [address] Consulting Physician General Surgery 02/01/21 documented as of this encounter
--- OUTSIDE RECORDS SUMMARY | 2024-08-28 02:12 | XMS_ITS | Encounter Summary ---
Author Organization [facility] Address [address] [place] [address] Care Team Providers Care Display Card Writer Name Role Phone Johnna Tinajero MD Primary Care Provider + Johnna Tinajero MD Unavailable [phone] Luciano Edwards MD Unavailable [phone] Encounter Details Date Type Department Care Team (Late st Contact Info) Description 02/01/2021 11:00 AM CDT - 02/01/2021 2:00 PM CDT Surgery [facility] Operating Room [address] [place] [address] Luciano Edwards MD [address] [facility] [address] [place] [address] Robotic Assisted Cholecystectomy Surgery Details Date/Time Status Location OR Service Patient Class Case Cl ass Case Type Trauma Case? 02/01/2021 11:00 AM Posted [facility] OPERATING ROOM OR15w General Surgery Outpatient Elective Panel 1 Procedure LRB Anes Op Region Wound Class Comments Robotic Assisted Cholecystectomy N/A General Abdomen Class II - Clean Contaminated ( 01/16) Rep. 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 Gender Identity Not on file Sexual Orientation Not on file documented as of this encounter Last Filed Vital Signs Vital Sign Reading Time Taken Comments Blood Pressure 116/61 02/01/2021 2:00 PM CDT Pulse 65 02/01/2021 2:00 PM CDT Temperature 37.7 ??C (99.8 ??F) 02/01/2021 1:25 PM CD T Respiratory Rate 25 02/01/2021 2:00 PM CDT Oxygen Saturation 96% 02/01/2021 2:00 PM CDT Inhaled Oxygen Concentration - - Weight 93.3 kg (205 lb 11 oz) 02/01/2021 9:40 AM CDT Height 160 cm (5' 3 ) 02/01/2021 9:40 AM CDT Body Mass Index 36.44 02/01/2021 9:40 AM CDT Body Mass Index Percentile 97.68% 02/01/2021 9:4 0 AM CDT Growth Chart: [facility] (Girls, 2- 20 Years) documented in this encounter Discharge Instructions * Discharge Instructions* Sherly Gifford RN - 02/01/2021 1:43 PM CDT [facility] General Surgery [...] directed for severe pain. You may use vipj-[id number] ibuprofen 200-600 mg every 6-8 hours as [...] and surgical procedures were reviewed. Ponderables and imponderableaspects of the procedures were discussed. Questions were entertained and answered to the apparent satisfaction of the patient / representatives. The patient / family / representatives appear capable to make the decision with their own free well, understand the procedure to the best of their ability, and wish to proceed. Luciano Edwards MD Date: [...] sinus rhythm with sinus arrhythmia with short UT ??? Anxiety 07/20/2019 ??? Asthma ??? Nausea [...] per tablet 01/31/2021 08/17/19 -- Provider, MD Jesus ondansetron (ZOFRAN) 4 mg tablet 06/13/20 -- Madyson Uriostegui, MENTAL HEALTH CASE MANAGER Take 1 tablet (4 mg total) by [...] CDT SURGERY OPERATIVE NOTE: Luciano Edwards MD, FACS [facility] [address] [address] Exchange: Cellular: Patient Identifying Information: Patient Name: [...] Cholecystectomy ANESTHESIA: General Anesthesiologist: Jeff Garcia MD VINEYARDIST: Elpidio Faith CRNA IMPLANTS: Nothing was implanted during the procedure PREOPERATIVE ANTIBIOTICS: 2g Ancef IV, within one hour of the incision. VTE PROPHYLAXIS: Sequential Compression Devices were administered as per Caprini thromboprophylaxis recommendation form review. INDICATION FOR PROCEDURE: Biliary Dyskinesia OPERATIVE FINDINGS: Operative findings included: 1. Pericholecystic Adhesions: mild 2. Hepatocystic [place] Adhesions: mild to mod 3. Critical View [...] deep venousthromboprophylaxis measures were taken as per [facility] / [facility] Thromboprophylaxis hospital form. General endotracheal anesthesia was [...] each carefully inspected. The robotic Weck clip life skills specialist was used to apply 2 clips medially 1 clip laterally to the cystic duct. The clips covered the width of the cystic duct appropriately. A single orifice was noted at the cystic duct cut surface. The cystic duct was divided with the robotic scissors. The cystic artery was isolated and clipped with 2 clips medially 1 clip laterally with the robotic Weck clip life skills specialist. The cystic artery was divided. The gallbladder [...] Vicryl suture was placed with the Mik Koch needle passer across the fascia in the [...] patient to go for COVID testing to [facility] 01/29 or 01/30. She verbalizes understanding. Order placed by me. Results to be reviewed prior to surgery. Paty Blank PA-C [facility] [place] [phone] documented in this encounter Plan of Treatment [...] a t end of case Narrative PATHOLOGY [facility] - 02/05/2021 12:14 PM [address] ??[address] Tele: ?? Yakelin Rodriguez MD - Electric Weldersteam trap man PATHOLOGY REPORT Patient Name: ??NINA COYNE Address: ??[address] [place] [address], [place], [place] [address] Gender: ??F : ??2000 (Age: 20) Service: ??Surgery Location: ??A15, ?? Hospital #: ??[id number] Patient Type: ??[facility] SAME DAY SURGERY Accession #: ? [id number] Taken: ? 02/01/2021 Received ? 02/01/2021 Reported: ? 02/05/2021 Physician(s): ? Josue Oates M.D. DIAGNOSIS: Gallbladder, laparoscopic cholecystectomy: ? - No histopathologic abnormality [facility]/02/05/2021 12:14 Examining Pathologist: Nehal Abarca M.D. Report [...] in a container, filtered, yielding no gallstones. ??Customer Care Representative sections are submitted in cassette A1. [facility]/02/04/2021 10:28 ? ES[facility] MICROSCOPIC DESCRIPTION: Sections of the gallbladder are unremarkable. ??There is no inflammation or hypertrophy of the muscularis. ??An unremarkable lymph node is noted. Clerical Data Follows A; [id number] REPORT IMAGES AND/OR SCANNED DOCUMENTS ONLY VIEWABLE IN PDF FORMAT The immunohistochemical test(s) cited in this report, if any, was developed and its performance characteristics determined by [facility] Pathology Department. ??It has not been cleared or approved by the U.S. Food and Drug Administration. ??The FDA has determined that such clearance or approval is not necessary. ??This test is used for clinical purposes. ??It should not be regarded as investigational or for research. ??[facility] Laboratory is certified under the Clinical Laboratory [...] LAB PATHOLOGY ORDERABL ES Final Result PATHOLOGY [facility] Laboratory Receiving [address] [place] [address] * POCT hCG, urine (02/01/2021 10:01 AM CDT) HCG, ur, POC Negative Lot Number [id number] QC Backgroud Clear Acceptable QC Control Line Acceptable Urine 02/01/2021 10:0 1 AM CDT Jeff Garcia MD POINT OF CARE TEST ORDER KATHERINE Final Result * COVID-19 Coronavirus RNA Nasopharyngeal (01/29/2021 12:51 PM CDT) COVID-19 RNA Not Detected [facility] [...] and NAAT . ??Testing performed by the [facility] Molecular Infectious Disease Laboratory. The Novel Coronavirus [...] [facility] (MIGUEL) Comment:Testing performed by : [facility], [address] [place] [address], [address] Employeed in healthcare? Unknown [facility] ([facility]IGUEL) Comment:Testing performed by : [facility], [address] [place] [address], [address] status? Unknown [facility] (MIGUEL) Comment:Testing performed by : [facility], [address] [place] [address], [address] Group care resident? Unknown [facility] (MIGUEL) Comment:Testing performed by : [facility], [address] [place] [address], [address] Hospitalized? No [facility] (MIGUEL) Comment:Testing performed by : [facility], [address] [place] [address], [address] Is patient in ICU? No [facility] (MIGUEL) Comment:Testing performed by : [facility], [address] [place] [address], [address] Symptomatic as defined by CDC? No [facility] (MIGUEL) Comment:Testing performed by : [address], [address] Nasopharyngeal 01/29/2021 12 :51 PM CDT 01/29/2021 8:24 PM CDT Narrative PENNIE OLEARY) - 01/30/2021 5:29 AM CDT What is the reason for testing?->Screening prior to scheduled procedure or surgery us Luciano Edwards MD LAB MICROBIOLOGY - GEN ERAL ORDERABLES Final Result PENNIE FELDER (MIGUEL) 1 [facility] Department [place] [address] documented in this encounter Visit Diagnoses Diagnosis Dyskinesia of gallbladder- Primary Dyskinesia of gallbladder Dyskinesia of gallbladder Dyskinesia of gallbladder documented in this encounter Admitting Diagnoses Diagnosis Dyskinesia of gallbladder documented in this encounter Administered Medications Inactive Administered Medications - up to 3 most recent administrations Medication Order MAR Action Action Date Dose Rate Site acetaminophen (TYLENOL) tablet 1,000 mg 1,000 mg, oral, Once, On Thu02/01/21 at 1045, For 1 dose, Pre-Op, Indications: Pre-Emptive AnalgesiaIndications:Pre-E mptive Analgesia Given 02/01/2021 10:06 AM CDT 1,000 mg bupivacaine 0.25% with EPINEPHrine 1:200,000 and lidocaine 1% with EPINEPHrine 1:100,000 solution 60 mL As needed, Starting on Thu02/01/21 at 1228, Intra-Op Given 02/01/2021 12:28 PM CDT 50 mL Surgical Site bupivacaine-EPINEPHrine (MARCAINE with EPI) 0.25 %-1:200,000 preservative free injection As needed, Starting on Thu02/01/21 at 1234, Intra-Op Given 02/01/2021 12:34 PM CDT 90 mL Surgical Site dimenhyDRINATE (DRAMAMINE) tablet 25 mg 25 mg, oral, Once, On Thu02/01/21 at 1045, For 1 dose, Pre-Op, Indications: Prevention of Nausea and VomitingIndications:Preven tion of Nausea and Vomiting Given 02/01/2021 10:06 AM CDT 25 mg gabapentin (NEURONTIN) capsule 300 mg 300 mg, oral, Once, On Thu02/01/21 at 1045, For 1 dose, Pre-Op, Indications: Pre-Emptive AnalgesiaIndications:Pre-E mptive Analgesia Given 02/01/2021 10:06 AM CDT 300 mg Lactated Ringer's (LR) infusion 30 mL/hr, intravenous, Continuous, Starting on Thu02/01/21 at 1045, Pre-Op New Bag 02/01/2021 11:56 AM CDT Rate/Dose Verify 02/01/2021 11:09 AM CDT 30 mL/ hr New Bag 02/01/2021 10:06 AM CDT 30 mL/hr 30 mL/hr sodium chloride 0.9% irrigation As needed, Starting on Thu02/01/21 at 1153, Intra-Op Given 02/01/2021 12:59 PM CDT 2,000 mL Surgical Site Given 02/01/2021 11:53 AM CDT 500 mL S urgical Site documented in this encounter Discontinued Medications Medication [...] Vomiting 1006 (Given - Provid er: Ana Saini, GLENDA) gabapentin (NEURONTIN) capsule 300 mg (COMPLETED) 300 mg, oral, Once, On Thu02/01/21 at 1045, For 1 dose, Pre-Op, Indications: Pre-Emptive Analgesia 1006 (Given - Provid er: Ana Saini, RN) indocyanine green (IC-GREEN) injection 5 mg [...] Intra-Op 1153 (Given - Provid er: Luciano Edwards MD - Comment: prn on field for irrigation)1259 (Given - Provider: Luciano Edwards MD - Comment: for suction irrigation) documented in this encounter Orders Medications Ordered That Jonny ht Not Have Been Administered Count Last Ordered Date First Ordered Date albuterol 2.5 mg /3 mL (0.08 3 %) nebulizer solution 2.5 mg 1 02/01/2021 ceFAZolin (ANCEF) 2,000 mg/2 0 mL in sterile water (premix) 2,000 mg 1 02/01/2021 dextrose (D10W) 10% bolus 250 mL 02/02/20 diphenhydrAMINE (BENADRYL) i njection 12.5 mg 1 02/01/2021 fentaNYL (SUBLIMAZE) preserv ative free injection 25 mcg 1 02/01/2021 haloperidol (HALDOL) 5 mg/mL injection - ADS Override Pull 02/01/2021 haloperidol (HALDOL) injection 1 mg 02/01 HYDROmorphone (DILAUDID) injection 0.4 mg 1 [...] chloride 0.9% flush 0.5-20 mL 1 11/2020 Diet Count Last Ordered Date First Orde red Date ADULT DISCHARGE DIET 1 02/01/2021 Nursing Count Last Ordered Date First Orde red Date FOLLOW UP WITH ESTABLISHED PROVIDER 1 02/01 NURSING COMMUNICATION 11 02/01/2021 documented in this encounter Care Teams Display Card Writer Relationship Specialty Start Date End Date Johnna Tinajero MD [address] [address] PCP - General Pediatrics 07/19/19 01/26/23 Johnna Tinajero MD [address] [address] 07/19/19 Luciano Edwards MD [address] [address] Consulting Physician General Surgery 02/01/21 documented as of this encounter
--- OUTSIDE RECORDS SUMMARY | 2024-08-28 02:12 | XMS_ITS | Encounter Summary ---
Author Organization [facility] Address [address] [place] [address] Phone Care Team Providers Care Executive Director Of Nursing Name Role Phone Johnna Tinajero MD Primary Care Provider + Johnna Tinajero MD Unavailable [phone] Luciano Edwards MD Unavailable [phone] Encounter Details Date Type Department Care Team (Late st Contact Info) Description 12/15/2022 Transitional Care Outreach [facility] Care Coordination [address] [place] [address] Kenia Vidal, RN Social History Tobacco Use Types Packs/Day Years [...] on file 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 Left VM to call back CM or PCP clinic if any questions or concerns. Sent MyChart as well. Faith Novoa RN BSN Component Assembler Supervisor, Faculty Practice Plan [facility] * Kenia Vidal RN - 12/16/2022 1:15 PM CDT Attempted Transition of Care ED f/u call to pt, Nina. [place] [facility] [place] [facility] [place]for RLQ abd pain. Initial call is answered but then disconnects. Called back & LMOVM for pt to return call to CM. documented in this encounter Plan of Treatment Not on file documented as of this encounter Visit Diagnoses Not on filedocumented in this encounter Care Teams Executive Director Of Nursing Relationship Specialty Start Date End Date Johnna Tinajero MD [address] [id number] PCP - General Pediatrics 07/19/19 01/26/23 Johnna Tinajero MD [address] [address] 07/19/19 Luciano Edwards MD [address] [address] Consulting Physician General Surgery 02/01/21 documented as of this encounter
--- OUTSIDE RECORDS SUMMARY | 2024-08-28 02:12 | XMS_ITS | Encounter Summary ---
Author Organization [facility] Address [address] [place] [address] Phone Care Team Providers Care Mountain Guide Name Role Phone Johnna Tinajero MD Primary Care Provider + Johnna Tinajero MD Unavailable [phone] Encounter Details Date Type Department Care Team (Late st Contact Info) Description 11/16/2020 Telephone [facility] Pediatric Gastroenterology [facility] 2nd [place] [address] [place] [address] Madyson Uriostegui, COMPUTER BOOKKEEPER 1 [facility] [address] [place] [address] Social History Tobacco Use Types [...] on file 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 Do you know whoI can contact so I can ask that person to do this? * Telephone Encounter - Paty Gray - 11/16/2020 11:26 AM CDT Dad is calling in regards to a bill received from a procedure done on 08/29/2020. Dad said insurance is not paying and and he already spoke with someone in billing. He is stating that billing told him to contact us about a prior auth. Please advise and contact dad back. documented in this encounter Plan of Treatment Not on file documented as of this encounter Visit Diagnoses Not on filedocumented in this encounter Care Teams Mountain Guide Relationship Specialty Start Date End Date Johnna Tinajero MD [address] [address] PCP - General Pediatrics 07/19/19 01/26/23 Johnna Tinajero MD [address] [address] 07/19/19 documented as of this encounter
--- OUTSIDE RECORDS SUMMARY | 2024-08-28 02:12 | XMS_ITS | Encounter Summary ---
Author Organization [facility] Address [address] [place] [address] Phone Care Team Providers Care Rv Technician Name Role Phone Johnna Tinajero MD Primary Care Provider + Johnna Tinajero MD Unavailable [phone] Luciano Edwards MD Unavailable [phone] Arian Adam MD Unavailable [phone] Encounter Details Date Type Department Care Team (Late st Contact Info) Description 01/16/2023 Transitional Care Outreach [facility] Care Coordination [address] [place] [address] Kenia Vidal RN Social History Tobacco Use Types Packs/Day [...] week 01/13/2023 How often do you attend [facility] or jainism services? More than 4 times per year 01/13/2023 Do you belong to any clubs o r organizations such as jewish groups, unions, fraternal or athletic groups, or [...] place to sleep or slept in a prison (including now)? No 01/13/2023 Personal Safety Answer Date Recorded Have you ever been in or are you currently in a harmful physical or emotional relationship or is someone making you feel afraid or unsafe? 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 Gender Identity Not on file Sexual Orientation Not on file documented as of this encounter Plan of Treatment Not on file documented as of this encounter Visit Diagnoses Not on filedocumented in this encounter Care Teams Rv Technician Relationship Specialty Start Date End Date Johnna Tinajero MD [address] [address] PCP - General Pediatrics 07/19/19 01/26/23 Johnna Tinajero MD [address] [address] 07/19/19 Luciano Edwards MD [address] [address] Consulting Physician General Surgery 02/01/21 [place] [address] [place] [address] Consulting Physician Gastroenterology 01/15/23 documented as of this encounter
--- OUTSIDE RECORDS SUMMARY | 2024-08-28 02:13 | XMS_ITS | Encounter Summary ---
Author Organization [facility] Address [address] [place] [address] Phone Care Team Providers Care Process Improvement Manager Name Role Phone Johnna Tinajero MD Primary Care Provider + Johnna Tinajero MD Unavailable [phone] Encounter Details Date Type Department Care Team (Late st Contact Info) Description 09/21/2020 Orders Only [facility] Pediatric Gastroenterology 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 Gender Identity Not on file Sexual Orientation Not on file documented as of this encounter Ordered Prescriptions Prescription Sig Dispense Quantity Refills Last Filled Start Date End Date rifAXIMin (XIFAXAN) 550 mg tabletIndications:He patic Encephalopathy Take 1 tablet (550 mg total) by mouth 3 (three) times a day for 14 days 42 tablet 09/21/2020 1 rifAXIMin (XIFAXAN) 550 mg tabletIndications:He patic Encephalopathy Take 1 tablet (550 mg total) by mouth 3 (three) times a day for 14 days 42 tablet 09/21/2020 1 documented in this encounter Progress Notes * Madyson Uriostegui NP - 09/21/2020 4:49 PM CST Update was obtained from [facility]. Carmen gamble w rifaximin. We can try 1 more round. Rx called in to [facility]. [facility] documented in this encounter Plan of Treatment Not on file documented as of this encounter Visit Diagnoses Not on filedocumented in this encounter Discontinued Medications Medication Sig Discontinue Reason Start Date End Da te rifAXIMin (XIFAXAN) 550 mg tabletIndications:Hepatic Encephalopathy Take 1 tablet (550 mg total) by mouth 3 (three) times a day for 14 days 09/21/2020 09/21/2020 documented as of this encounter Care Teams Process Improvement Manager Relationship Specialty Start [place] [address] [place] [address] PCP - General Pediatrics 07/19/19 01/26/23 Johnna Tinajero MD [address] [address] 07/19/19 documented as of this encounter
--- OUTSIDE RECORDS SUMMARY | 2024-08-28 02:13 | XMS_ITS | Encounter Summary ---
Author Organization [facility] Healthcare Address [address] [place] [address] Care Team Providers Care Rehabilitation Services Director Name Role Phone Johnna Tinajero MD Primary Care Provider + Johnna Tinajero MD Unavailable [phone] Reason for Visit * Reason Comments Vomiting Encounter Details Date Type Department Care Team (Late st Contact Info) Description 10/23/2020 11:52 PM HEAD OF ACQUISITIONS - 10/27/2020 1:28 PM [facility] Hospital Encounter [facility] [address] [place] [address] Madyson Ramirez MD [address] [facility] [address] [place], [place] [id number] Klaudia Meneses MD [id number] [place] [address] Marni Dial MD [address] [address] Dehydration (Primary Dx); Abdominal pain; Hematemesis with nausea; Penicillin allergy Discharge Disposition: Discharge to home or self [...] on file Legal Sex 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 HEAD OF ACQUISITIONS Gender Identity Not on file Sexual Orientation Not on file documented as of this encounter Last Filed Vital Signs Vital Sign Reading Time Taken Comments Blood Pressure 96/69 10/27/2020 11:12 AM HEAD OF ACQUISITIONS Pulse 80 10/27/2020 11:12 AM HEAD OF ACQUISITIONS Temperature 36.6 ??C (97.9 ??F) 10/27/2020 11:[address] Respiratory Rate 14 10/27/2020 11:12 AM HEAD OF ACQUISITIONS Oxygen Saturation 98% 10/27/2020 11:12 AM HEAD OF ACQUISITIONS Inhaled Oxygen Concentration - - Weight 98 kg (216 lb 0.8 oz) 10/24/2020 2:30 AM HEAD OF ACQUISITIONS Height 160 cm (5' 2.99 ) 10/24/2020 2:30 AM HEAD OF ACQUISITIONS Body Mass Index 38.28 10/24/2020 2:30 AM HEAD OF ACQUISITIONS Body Mass Index Percentile 98.46% 10/24/2020 2:3 0 AM HEAD OF ACQUISITIONS Growth Chart: [facility] (Girls, 2- 20 Years) documented in this encounter Discharge Diagnoses Diagnosis Gastro-esophageal laceration-hemorrhage syndrome - GASTRO-ESOPHAGEAL LACERATION-HEMORRHAGE SYNDROME Other specified anxiety disorders - OTHER SPECIFIED ANXIETY DISORDERS Hematemesis - HEMATEMESIS Dehydration - DEHYDRATION Allergy status to penicillin - ALLERGY STATUS TO PENICILLIN Other chronic pain - OTHER CHRONIC PAIN Unspecified asthma, uncomplicated - UNSPECIFIED ASTHMA, UNCOMPLICATED Abdominal distension (gaseous) - ABDOMINAL DISTENSION (GASEOUS) Unspecified abdominal pain - UNSPECIFIED ABDOMINAL PAIN Major depressive disorder, single episode, unspecified - MAJOR DEPRESSIVE DISORDER, SINGLE EPISODE, UNSPECIFIED Migraine, unspecified, not intractable, without status migrainosus - MIGRAINE, UNSPECIFIED, NOT INTRACTABLE, WITHOUT STATUS MIGRAINOSUS documented in this encounter Discharge Summaries * Yolis Randle MD - 10/27/2020 12:07 PM CST Inpatient Discharge Summary BRIEF OVERVIEW Admitting Provider: Klaudia Meneses MD Discharge Provider: Marni Dial MD Primary Care Physician at Discharge: Johnna Tinajero MD [phone] Admission Date: 10/23/2020 Discharge Date: 10/27/2020 Admission Location: [facility] Problems/Diagnoses: Principal Problem: Vomiting Active Problems: Dehydration Resolved Problems: Hematemesis DETAILS OF HOSPITAL STAY Presenting Problem/History of Present Illness: Nina is an 20yo female with past medical history of SIBO (small intestine bacterial overgrowth syndrome), chronic abdominal pain with vomiting, migraines, anxiety and depression. She presents to [facility] ED at the recommendation of her GI team due to acute worsening of symptoms over the weekend. History is obtained from patient, mother, and medical record. ?? Starting on Thursday evening (09/19/20), Nina began to experience symptoms of diffuse, intense abdominal pain and vomiting with nausea after every attempted meal. She was managing her pain and symptoms at home with zofran as needed for nausea and ibuprofen as needed for pain. However, on Thursday evening (09/22/20), Nina contacted he GI office because she noticed that her emesis had become blood tinged. She was advised to come to [facility] for further workup and management of possible dehydration in the setting of persistent vomiting with new hematemesis. ?? Nina reports that these symptoms seem consistent with her typical flares of abdominal pain with nausea, and vomiting. Nina reports that she has suffered from chronic abdominal pain since 2019. Whenshe is at her best, she vomits only a few times per week and experiences only mild regular pulsatile abdominal pain that is tolerated and does not interfere with her participation in her routine activities such as going for walks, studying for tests, or playing Just Dance with her brother. However,in her worst, acute episodes, she vomits every time she eats, typically chewed up prior meal ratherthan liquid type gastric contents. No bile or blood in emesis typically although her most recent emesis that was blood tinged. Her abdominal pain during her worst, acute episodes is described as diffuse severe stabbing pain that interferes with her quality of life because it is worsened with activity. ?? She endorses fatigue and weakness but denies dizziness, headaches, sore throat, mouth sores, palpitations, shortness of breath, diarrhea, constipation, dysuria, urinary frequency, urinary hesitancy, irregular menses, vaginal discharge. ?? In the last several months, she has had higher frequency of acute episodes and has returned home from her first year college due to difficulty of symptom management. She was recently hospitalized for similar symptoms in 07/2020. She was seen again in the ED on 09/04/20 for similar symptoms but was able to discharge home after symptoms improved and outpatient plan to follow up with GI. She had an EGD completed in 09/14/2019 that was normal. She was recently diagnosed with SIBO in the fall of 2019 and has completed a few courses of Xifaxin. She reports gaining the most symptom relief with the first round of Xifaxin but subsequently has not. Hospital Course: Nina was admitted for acute worsening of chronic symptoms of abdominal pain, nausea, and vomiting.Due to two episodes of hematemesis prior to admission, she was started on IV maintenance fluids, a clear liquid diet, and IV protonix every 12 hours. Within the first day of admission, her symptoms began to improve with resolution of emesis and improved pain control with hyoscyamine therapy. She con tinued home medication of Breo Ellipta for asthma control and Lexapro for anxiety. Psychology was consulted to provide coping strategies for her chronic condition and management strategies for experiences of acute pain. On the next day of admission, she was started on a clear liquid diet and has been able to advance as tolerated. Due to the results of her most recent SIBO testing (producing increased methane), she was started on neomycin 500 mg twice daily and rifaximin 550 mg 3 times daily for14 days. This improved her abdominal pain. IV protonix every 12 hours transitioned to Prevacid 30mgBID, and discontinued on 10/27. On discharge, she was able to tolerate diet and maintain hydration status without IV fluids. She is discharged home with GI Clinic follow-up. Active Issues Requiring Follow-up: Mental health concerns, chronic abdominal pain Test Results Pending at Discharge: None Operative Procedures Performed: None Other Procedures: None Pertinent Test Results: Most recent SIBO testing produced increased methane Discharge Details Physical Exam at Discharge: Discharge Condition: good Pulse: 80 Resp: 14 BP: 96/69 Temp: 36.6 ??C (97.9 ??F) Weight: 98 kg (216 lb 0.8 oz) Pertinent Exam Findings at Discharge: General:alert, well appearing and no acute distress Head:normocephalic, atraumatic Eyes:conjunctivae clear, EOMI Lungs:clear to auscultation bilaterally, normal WOB and good air movement Heart:regular rate and rhythm, normal S1 and S2 and no murmur, rubs, or gallops Abdomen:soft, non-tender, non-distended and bowel sounds present Extremity:extremities warm and well perfused, no edema and no joint tenderness or swelling Pulses:2+ pulses and symmetric Skin:no rashes or lesions and no jaundice Discharge Disposition: Code Status at Discharge: FULL Discharge Instructions: Activity Instructions Post-Discharge activity: May return to school / daycare / usual activities Diet Instructions Pediatric Discharge Diet Diet Type: Return to previous diet Drink water and milk as usual beverage. Limit juice and sweetened beverages. Eat breakfast every morning and aim for 5 fruits and vegetables each day. Limit fast food to 1-2 times per week. Be activeevery day and limit screen time to 2 hours or less each day. Other Instructions Provider to Notify Notify Johnna Tinajero MD for signs and symptoms listed below unless specified. -uncontrollable abdominal pain -decrease in eating or drinking -dizziness or changes in mental status Summary of care Nina was admitted for acute worsening of chronic symptoms of abdominal pain, nausea, and vomiting.Due to two episodes of vomiting with blood prior to admission, she was started on IV maintenance fluids, a clear liquid diet, and IV protonix every 12 hours. Within the first day of admission, her symptoms began to improve with resolution of vomiting and improved pain control with hyoscyamine therapy. She continued home medication of Breo Ellipta for asthma control and Lexapro for anxiety. Psychology was consulted to provide coping strategies for her chronic condition and management strategies for experiences of acute pain. On the next day of admission, she was started on a clear liquid diet and have been able to advance as tolerated. Due to the results of her most recent SIBO testing (producing increased methane), she was started on neomycin 500 mg twice daily and rifaximin 550 mg 3 times daily for 14 days total. This improved her abdominal pain. IV protonix every 12 hours was transitioned to oral medication and then discontinued. On discharge she was able to tolerate diet and maintain hydration status without IV fluids. She is discharged home with a plan to follow up in GI clinic. Discharge Medications: Current Medications TAKE these medications albuterol HFA 90 mcg/actuation inhaler Inhale 2 puffs every 6 hours as needed for wheezing or shortness of breath Commonly known as: PROVENTIL HFA,VENTOLIN HFA,PROAIR HFA cetirizine 10 mg tablet Take 10 mg by mouth daily Commonly known as: ZyrTEC escitalopram 20 mg tablet Take 1 tablet (20 mg total) by mouth daily Commonly known as: LEXAPRO fluticasone furoate-vilanteroL 100-25 mcg/dose diskus inhaler Inhale 1 puff daily Commonly known as: Breo Ellipta hyoscyamine 0.125 mg/mL solution Take 2 mL (0.25 mg total) by mouth every 4 (four) hours as needed for cramping Commonly known as: LEVSIN metoclopramide 10 mg tablet Take 1 tablet (10 mg total) by mouth every 6 (six) hours as needed (nausea, vomiting) Commonly known as: REGLAN neomycin 500 mg tablet Take 1 tablet (500 mg total) by mouth 2 (two) times a day for 12 days For: Other (complete free text reason below), SIBO Commonly known as: MYCIFRADIN norgestimate-ethinyl estradioL 0.18/0.215/0.25 mg-25 mcg per tablet Take 1 tablet by mouth daily Commonly known as: ORTHO TRI-CYCLEN LO ondansetron 4 mg tablet Take 1 tablet (4 mg total) by mouth every 8 (eight) hours as needed for nausea or vomiting Commonly known as: ZOFRAN prochlorperazine 10 mg tablet Take 1 tablet (10 mg total) by mouth every 6 (six) hours as needed for nausea or vomiting Take with benadryl. Commonly known as: Compazine * Xifaxan 550 mg tablet TAKE 1 TABLET BY MOUTH THREE TIMES DAILY FOR 14 DAYS Generic drug: rifAXIMin * rifAXIMin 550 mg tablet Take 1 tablet (550 mg total) by mouth 3 (three) times a day for 12 days For: Other (complete free text reason below), SIBO Commonly known as: XIFAXAN * This list has 2 medication(s) that are the same as other medications prescribed for you. Read the directions carefully, and ask your doctor or other care provider to review them with you. Outpatient Follow-Up: Future Appointments Date Time Provider Department Center 10/30/2020 8:30 AM Brandee Solorzano, [facility] 12/04/2020 1:00 PM Nehal Riggs, DO P[facility] [address] Contact Information for Follow-ups [facility] (All Locations) Next Steps: Follow up Comments: Penicillin allergy - skin testing Questions: Please select the performing region: [facility] (All Locations) # of visits: 1 Referral Status: Pending Authorization Yolis Randle M.D. PGY-1, Pediatrics [facility] Cosigned by Marni Dial MD at 10/28/2020 8:35 PM HEAD OF ACQUISITIONS OF ACQUISITIONS OF ACQUISITIONS OF ACQUISITIONS Associated attestation - Marni Dial MD - 10/28/2020 8:35 PM HEAD OF ACQUISITIONS I have seen and examined the patient on 10/27/2020. I agree with the findings and plan of care as documented in the resident's/fellow's note.. I spent 35 minutes on discharge planning activities. Time spent was on Coordination of care, Counselling with patient/family, discharge exam, parent/patient education, and Other provider communication. documented in this encounter Discharge Instructions * Discharge Instructions* Meera North MD PhD - 10/25/2020 7:32 PM HEAD OF ACQUISITIONS Nina Coyne was admitted with a documented allergy to Penicillin. Based on history and chart review, patient was referred to allergy clinic for potential removal of documented allergy as an outpatient. Documented allergy to Penicillin was not removed from Nina Coyne's chart. OF ACQUISITIONS documented in this encounter Medications at Time of Discharge albuterol HFA (PROVENTIL HFA,VENTOLIN HFA,PROAIR HFA) 90 mcg/actuation inhaler Inhale 2 puffs every 6 (six) hours as needed for wheezing or shortness of breath cetirizine (ZyrTEC) 10 mg tablet Take 10 mg by mouth daily norgestimate-eth inyl estradiol (ORTHO TRI-CYCLEN LO) 0.18/0.215/0.25 mg-25 mcg per tablet Take 1 tablet by mouth daily 0 08/17/2019 neomycin (MYCIFRADIN) 500 mg tabletIndication s:Other (complete free text reason below),SIBO Take 1 tablet (500 mg total) by mouth 2 (two) times a day for 12 days 24 tablet 10/26/2020 1 rifAXIMin (XIFAXAN) 550 mg tabletIndication s:Other (complete free text reason below),SIBO Take 1 tablet (550 mg total) by mouth 3 (three) times a day for 12 days 36 tablet 10/26/2020 1 escitalopram (LEXAPRO) 20 mg tabletIndication s:Anxiety Take 1 tablet (20 mg total) by mouth daily 30 tablet 2 10/13/2019 3 fluticasone furoate-vilanter ol (Breo Ellipta) 100-25 mcg/dose diskus inhaler Inhale 1 puff daily 60 each 09/02/2019 3 hyoscyamine (LEVSIN) 0.125 mg/mL solution Take 2 mL (0.25 mg total) by mouth every 4 (four) hours as needed for cramping 15 mL 10/26/2020 1 metoclopramide (REGLAN) 10 mg tablet Take 1 tablet (10 mg total) by mouth every 6 (six) hours as needed (nausea, vomiting) 14 tablet 09/05/2020 2 ondansetron (ZOFRAN) 4 mg tablet Take 1 tablet (4 mg total) by mouth every 8 (eight) hours as needed for nausea or vomiting 50 tablet 06/13/2020 2 prochlorperazine (Compazine) 10 mg tablet Take 1 tablet (10 mg total) by mouth every 6 (six) hours as needed for nausea or vomiting Take with benadryl. 30 tablet 2 11/10/2019 2 Xifaxan 550 mg tablet TAKE 1 TABLET BY MOUTH THREE TIMES DAILY FOR 14 DAYS 42 tablet 10/02/2020 1 documented as of this encounter Ordered Prescriptions Prescription Sig Dispense Quantity Refills Last Filled Start Date End Date rifAXIMin (XIFAXAN) 550 mg tabletIndications: Other (complete free text reason below),SIBO Take 1 tablet (550 mg total) by mouth 3 (three) times a day for 12 days 36 tablet 10/26/2020 1 hyoscyamine (LEVSIN) 0.125 mg/mL solution Take 2 mL (0.25 mg total) by mouth every 4 (four) hours as needed for cramping 15 mL 10/26/2020 1 neomycin (MYCIFRADIN) 500 mg tabletIndications: Other (complete free text reason below),SIBO Take 1 tablet (500 mg total) by mouth 2 (two) times a day for 12 days 24 tablet 10/26/2020 1 documented in this encounter Discharge Disposition Disposition Code Departure Means Destination Discharge to home or self care documented in this encounter Progress Notes * Sima Ramirez PSY.D. - 10/26/2020 11:50 AM CST Pediatric Psychology Progress Note Date of Visit: 10/26/20 Time of Visit: [id number] CPT Code: 58794 Individual Intervention with patient and/or family ICD-10 Diagnosis: F41.8 Other Specified Anxiety Disorder Visit Type: Individual intervention Patient present: Yes Others present in session: Patient's mother and Armida Dennis MA, Psychology Student Location of Care: At Bedside Nina Coyne is an 20 y.o. female with a history of small intestine bacteria overgrowth syndrome (SIBO). She was admitted to [facility] on 10/23/20 for an acute worsening of abdominal pain and vomiting symptoms. The [facility] Psychology Service was consulted by the [facility] Gastroenterology Service to provide support and coping skills for pain during this hospitalization. Mental Status Exam: Behavior: cooperative Affect: appropriate to topic Mood: euthymic Suicidal Ideation: denied Self-Harm Behaviors: denied Homicidal Ideation: denied Treatment Motivation: good Session Note: Nina was present in her room with her mother. When asked how she has been feeling, Nina stated, Okay, I've mostly been relaxing and watching television. Nina reported her pain was a 6 on a scale of 1 to 10. She indicated that her current goal was to drink 18 ounces of water in 4 hours. She was making progress towards making this goal but stated that she knew she was behind. This solar project engineer encouraged Nina and her mother to set small, measurable goals in order to achieve the larger goal set by the medical team. This may look like using a timer to encourage regular drinking throughout the time limit. This solar project engineer also reviewed pain management strategies discussed during previous sessions. Please see the recommendation section below. This solar project engineer discussed the importance of engaging in cognitive behavioral therapy (CBT) for continued management of anxiety and pain. Nina hopes to continue with her current therapist and denied interest inreferrals at this time. Intervention: ?? Review and updates of hospitalization ?? Behavioral strategies for pain management Overall Treatment Goals: ?? Strengthen use of cognitive and behavioral coping strategies ?? Support engagement and return to baseline functioning Recommendations: Nina will likely benefit from outpatient cognitive behavioral therapy (CBT) to provide skills in pain management. CBT would provide education about the effects of stress/anxiety and mood on pain, ways to manage physical symptoms with relaxation, and methods to challenge maladaptive thoughts. Altogether, these skills will be the foundation for rehabilitating Nina's daily functioning. Goals of therapy may be increasing pain stamina and tolerance. Additionally, therapy would work to increase daily functioning through gradual and systematic increases in normal daily activities to promote improved quality of life. CBT can also continue to address general anxiety symptoms. Recommend the following strategies for coping with pain and other physical symptoms: ? Limit daytime naps to 60 minutes and work toward no daytime sleeping. ? Limit attention given to pain and other physical symptoms, as increased attention may increase anxiety and can also contribute to ineffective coping behaviors. ? Continue to implement distraction for adaptive coping. Preferred activities may include watching television, painting, and talking/spending time with friends. ? Implement relaxation techniques for coping with pain and other physical symptoms: ?? Diaphragmatic breathing - recommended for coping with nausea ?? Progressive muscle relaxation ? Active distraction strategies ?? Going for a walk ?? Engage in conversation with family and friends ?? Playing games ?? Coloring Plan: Psychology plans to continue to follow Nina throughout her current admission to assist with pain management. Psychology will also assist with identifying and coordinating appropriate outpatient referrals for psychological intervention, if needed. Thank you for the opportunity to be involved in this patient???s care. Please feel free to contact us with any questions or concerns, . Sima Ramirez PSY.D. Pediatric Websphere Administrator Department of Psychology [facility] Note not shared: Privacy Cosigned by Carol Lambert, PhD at 10/29/2020 1:14 PM HEAD OF ACQUISITIONS OF ACQUISITIONS OF ACQUISITIONS Associated attestation - Carol Lambert, PhD - 10/29/2020 1:14 PM HEAD OF ACQUISITIONS I attest that I have reviewed this documentation, discussed this patient and care plan with the fellow, and concur. Carol Lambert, PhD * Yolis Randle MD - 10/26/2020 10:30 AM CST Pediatric GI Daily Progress Note Subjective Chief complaint of intractable vomiting. Interval History: Mother states that patient was able to eat 1/4 bagel and eggs this morning. Patient reports sleeping well overnight and improvement on starting new medication yesterday. Psychology met with family again yesterday. She endorses reduced pain today on the left side of abdomen. Vital signs have been stable overnight, Oral intake was 330ml over 24 hours, 0.7 ml/kg/hr UOP. Objective Vitals: Vitals 24 hour ranges: Temp: [36.3 ??C (97.3 ??F)-36.7 ??C (98.1 ??F)] Pulse: [56-82] Resp: [16-25] BP: (107-114)/(63-88) I/O last 2 completed shifts: In: 2373 [P.O.:330; I.V.:2043] Out: 1750 [Urine:1750] I/O this shift: In: 763 [P.O.:180; I.V.:583] Out: 200 [Urine:200] Physical Exam: General: alert, well appearing, cooperative and no acute distress Head: Normocephalic, atraumatic Eye: conjunctivae clear, EOMI Lungs: clear to auscultation bilaterally, normal WOB and good air movement Heart: regular rate and rhythm, normal S1 and S2 and no murmur, rubs, or gallops Abdomen: soft, non-distended, bowel sounds present and tenderness in RUQ and LLQ Extremity: extremities warm and well perfused, no edema and no joint tenderness or swelling Pulses: 2+ pulses and symmetric Lab/Radiology/Diagnostic Review: Laboratory: Lab results in the last 24 hours: No results found for this or any previous visit (fromthe past 24 hour(s)). Assessment/Plan Principal Problem: Vomiting Active Problems: Dehydration Assessment/Plan Dehydration Assessment & Plan Symptoms of dehydration include decreased urination and delayed capillary refill (identified on exam in ED). She completed a normal saline bolus in the ED. Once she is able to tolerate adequate oral hydration, IV fluids will be discontinued. - Continue mIV fluids * Vomiting Assessment & Plan Nina is an 20yo with past medical history of SIBO (small intestine bacterial overgrowth syndrome),chronic abdominal pain with vomiting, and anxiety and [...] Zofran prn for nausea - Avoid NSAIDs Yolis Randle M.D. PGY-1, Pediatrics [facility] Cosigned by Marni Dial MD at 10/27/2020 7:29 PM HEAD OF ACQUISITIONS OF ACQUISITIONS OF ACQUISITIONS Associated attestation - Marni Dial MD - 10/27/2020 7:29 PM HEAD OF ACQUISITIONS I have seen and examined the patient on 10/26/2020. I agree with the findings and plan of care as documented in the resident's/fellow's note.. * Meera North MD PhD - 10/25/2020 7:29 PM CST Penicillin Oral Challenge Note Nina Coyne is a 20 y.o. female with documented allergy to Amoxicillin. Per chart reviewand/or history, reaction occurred >10 years ago and was an Intermediate (4-24 hours) reaction after receiving the medication. Reported symptoms were consistent with Moderate, Immediate Reaction :rash raised off skin, hives, or welts (not anaphylaxis), occurring within 24 hours; lesions lasted less than 24 hours. Patient received the following treatment(s) for the reaction: penicillin discontinued and parent does not remember if any other treatments given. Patient does not report subsequenttolerance to the same or a similar medication, or cephalosporin after the initial reaction. Based on the above history, patient was referred to allergy clinic for potential removal of documented allergy as an outpatient. Documented allergy to Amoxicillin and Penicillin will not be removed from Nina Coyne's chart at this time. Meera North MD PhD OF ACQUISITIONS * Yolis Randle MD - 10/25/2020 1:26 PM CST Pediatric GI Daily Progress Note Subjective Chief complaint of intractable vomiting. Interval History: Mother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 Behavior: Goal: Identification of resources available to assist in meeting health care needs will improve Outcome: Progressing Problem: Nutritional: Goal: Ability to attain and maintain optimal nutritional status will improve Outcome: Progressing Summary: one dose of PRN pain medication, sleeping comfortably, tolerating clears, can advance to soft mechanical in am if comfortable, no emesis OF ACQUISITIONS * Plan of Care - Clover Santos RN - 10/24/2020 5:20 PM HEAD OF ACQUISITIONS Goals: Clinical Goals for the Shift: VSS, pain control, tolerate clear liquid diet Summary: VSS, pain reduced with PRN tylenol and hyoscyamine, pt tolerated the clear liquid diet Problem: Activity: Goal: Risk for activity intolerance will decrease Outcome: Progressing Problem: Lack of Knowledge: Goal: Knowledge of disease or condition will improve Outcome: Progressing OF ACQUISITIONS * Assessment & Plan Note - Charla Valdes MD - 10/24/2020 6:48 AM HEAD OF ACQUISITIONS Associated Problem(s): Dehydration (Resolved 10/01/2021) Symptoms of dehydration include decreased urination and delayed capillary refill (identified on exam in ED). She completed a normal saline bolus in the ED. Once she is able to tolerate adequate oral hydration, IV fluids will be discontinued. - Continue mIV fluids OF ACQUISITIONS OF ACQUISITIONS * Assessment & Plan Note - Charla Valdes MD - 10/24/2020 6:48 AM HEAD OF ACQUISITIONS Associated Problem(s): Hematemesis (Resolved 10/25/2020) Hematemesis occurred in setting of intractable vomiting for several day duration. 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 - IV Protonix q 12 hours - Avoid NSAIDs OF ACQUISITIONS OF ACQUISITIONS * Assessment & Plan Note - Charla Valdes MD - 10/24/2020 6:47 AM HEAD OF ACQUISITIONS Associated Problem(s): Vomiting (Resolved 10/01/2021) Nina is an 20yo with past medical history of SIBO (small intestine bacterial overgrowth syndrome),chronic abdominal pain with vomiting, and anxiety and [...] Zofran prn for nausea - Avoid NSAIDs OF ACQUISITIONS OF ACQUISITIONS OF ACQUISITIONS * Subjective & Objective - Charla Valdes MD - 10/24/2020 6:47 AM HEAD OF ACQUISITIONS Pediatric GI Daily Progress Note Subjective Chief complaint of intractable vomiting. Interval History: Mother states that patient was able to drink 2 cans of soda and jello. Patient reports that levsin helped to reduce her abdominal pain. Psychology met with family yesterday. She endorses 8/10 pain today on the left side of abdomen. Vital signs have been stable overnight, 0.9 ml/kg/hr UOP. Objective Vitals: Vitals 24 hour ranges: Temp: [36.4 ??C (97.5 ??F)-37 ??C (98.6 ??F)] Pulse: [54-110] Resp: [16-22] BP: (102-126)/(66-86) I/O last 2 completed shifts: In: 2759.6 [P.O.:580; I.V.:2179.6] Out: 2124 [Urine:2124] I/O this shift: In: 192 [I.V.:192] Out: 450 [Urine:450] Physical Exam: General: alert, well appearing, cooperative and no acute distress Head: Normocephalic, atraumatic Eye: conjunctivae clear, EOMI Lungs: clear to auscultation bilaterally, normal WOB and good air movement Heart: regular rate and rhythm, normal S1 and S2 and no murmur, rubs, or gallops Abdomen: soft, non-distended, bowel sounds present and tenderness in RUQ and LLQ Extremity: extremities warm and well perfused, no edema and no joint tenderness or swelling Pulses: 2+ pulses and symmetric Lab/Radiology/Diagnostic Review: Laboratory: Lab results in the last 24 hours: No results found for this or any previous visit (fromthe past 24 hour(s)). Assessment/Plan Principal Problem: Vomiting Active Problems: Hematemesis Dehydration OF ACQUISITIONS OF ACQUISITIONS OF ACQUISITIONS OF ACQUISITIONS OF ACQUISITIONS * Plan of Care - Vicki Anand RN - 10/24/2020 3:27 AM CST Problem: Health Behavior: Goal: Understanding of discharge needs will improve Outcome: Progressing Problem: Activity: Goal: Risk for activity intolerance will decrease Outcome: Progressing Goal: Ability to follow a routine sleep schedule will improve Outcome: Progressing Problem: Bowel/Gastric: Goal: Ability to maintain baseline age appropriate bowel function will improve Outcome: Progressing Problem: Lack of Knowledge: Goal: Knowledge of disease or condition will improve Outcome: Progressing Problem: Coping: Goal: Demonstrations of calm behavior will increase Outcome: Progressing Goal: Expression of the ability to provide proper assistance and support to the patient will improve Outcome: Progressing Problem: Fluid Volume: Goal: Ability to maintain a balanced intake and output will improve Outcome: Progressing Problem: Health Behavior: Goal: Identification of resources available to assist in meeting health care needs will improve Outcome: Progressing Problem: Nutritional: Goal: Ability to attain and maintain optimal nutritional status will improve Outcome: Progressing Goals: Clinical Goals for the Shift: pain control Summary: admit to floor, start mIVF, PRNs given for pain 05/10 OF ACQUISITIONS * Hospital Course - Yolis Randle MD - 10/24/2020 2:47 AM CST Nina was admitted for acute worsening of chronic symptoms of abdominal pain, nausea, and vomiting.Due to two episodes of hematemesis prior to admission, she was started on IV maintenance fluids, a clear liquid diet, and IV protonix every 12 hours. Within the first day of admission, her symptoms began to improve with resolution of emesis and improved pain control with hyoscyamine therapy. She continued home medication of Breo Ellipta for asthma control and Lexapro for anxiety. Psychology was consulted to provide coping strategies for her chronic condition and management strategies for experiences of acute pain. On the next day of admission, she was started on a clear liquid diet and has been able to advance as tolerated. Due to the results of her most recent SIBO testing (producing increased methane), she was started on neomycin 500 mg twice daily and rifaximin 550 mg 3 times daily for14 days. This improved her abdominal pain. IV protonix every 12 hours transitioned to Prevacid 30mgBID, and discontinued on 10/27. On discharge, she was able to tolerate diet and maintain hydration st atus without IV fluids. She is discharged home with GI Clinic follow-up. OF ACQUISITIONS OF ACQUISITIONS OF ACQUISITIONS OF ACQUISITIONS OF ACQUISITIONS OF ACQUISITIONS OF ACQUISITIONS OF ACQUISITIONS OF ACQUISITIONS OF ACQUISITIONS OF ACQUISITIONS * Assessment & Plan Note - Charla Valdes MD - 10/24/2020 2:10 AM HEAD OF ACQUISITIONS Associated Problem(s): Dehydration (Resolved 10/01/2021) Symptoms of dehydration include decreased urination and delayed capillary refill (identified on exam in ED). She completed a normal saline bolus in the ED. - Continue mIV fluids OF ACQUISITIONS * Assessment & Plan Note - Charla Valdes MD - 10/24/2020 2:08 AM HEAD OF ACQUISITIONS Associated Problem(s): Hematemesis (Resolved 10/25/2020) Hematemesis occurred in setting of intractable vomiting for several day duration. 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 - NPO while monitoring for further GI bleeding - Careful tracking and documentation of frequency and nature of emesis - Avoid NSAIDs - IV Protonix q 12 hours OF ACQUISITIONS * Assessment & Plan Note - Charla Valdes MD - 10/24/2020 1:56 AM HEAD OF ACQUISITIONS Associated Problem(s): Vomiting (Resolved 10/01/2021) Nina is an 20yo with past medical history of SIBO (small intestine bacterial overgrowth syndrome),chronic abdominal pain with vomiting, and anxiety and [...] NPO while monitoring for further GI bleeding OF ACQUISITIONS OF ACQUISITIONS OF ACQUISITIONS OF ACQUISITIONS * Subjective & Objective - Charla Valdes MD - 10/24/2020 1:33 AM HEAD OF ACQUISITIONS Pediatric History and Physical Subjective Patient is a 20 y.o. female with chief complaint of intractable vomiting. HPI: Nina is an 20yo female with past medical history of SIBO (small intestine bacterial overgrowth syndrome), chronic abdominal pain with vomiting, migraines, anxiety and depression. She presents to [facility] ED at the recommendation of her GI team due to acute worsening of symptoms over the weekend. History is obtained from patient, mother, and medical record. Starting on Satur evening (09/19/20), Nina began to experience symptoms of diffuse, intense abdominal pain and vomiting with nausea after every attempted meal. She was managing her pain and symptoms at home with zofran as needed for nausea and ibuprofen as needed for pain. However, on Thursday evening (09/22/20), Nina contacted he GI office because she noticed that her emesis had become blood tinged. She was advised to come to [facility] for further workup and management of possible dehydration in the setting of persistent vomiting with new hematemesis. Nina reports that these symptoms seem consistent with her typical flares of abdominal pain with nausea, and vomiting. Nina reports that she has suffered from chronic abdominal pain since 2019. Whenshe is at her best, she vomits only a few times per week and experiences only mild regular pulsatile abdominal pain that is tolerated and does not interfere with her participation in her routine activities such as going for walks, studying for tests, or playing Just Dance with her brother. However,in her worst, acute episodes, she vomits every time she eats, typically chewed up prior meal ratherthan liquid type gastric contents. No bile or blood in emesis typically although her most recent emesis that was blood tinged. Her abdominal pain during her worst, acute episodes is described as diffuse severe stabbing pain that interferes with her quality of life because it is worsened with activity. She endorses fatigue and weakness but denies dizziness, headaches, sore throat, mouth sores, palpitations, shortness of breath, diarrhea, constipation, dysuria, urinary frequency, urinary hesitancy, irregular menses, vaginal discharge. In the last several months, she has had higher frequency of acute episodes and has returned home from her first year college due to difficulty of symptom management. She was recently hospitalized forsimilar symptoms in 07/2020. She was seen again in the ED on 09/04/20 for similar symptoms but was able to discharge home after symptoms improved and outpatient plan to follow up with GI. She had an EGD completed in 09/14/2019 that was normal. She was recently diagnosed with SIBO in the fall of 2019 and has completed a few courses of Xifaxin. She reports gaining the most symptom relief with the first round of Xifaxin but subsequently has not. Past Medical History: Diagnosis Date ??? Abdominal pain 07/20/2019 ??? Abnormal electrocardiography 01/19/2017 Annotation: Saw cardiology 2017 and was cleared, repeat 08/25/19 Normal sinus rhythm with sinus arrhythmia with short TX ??? Anxiety 07/20/2019 ??? Asthma ??? Nausea 08/15/2019 ??? Vomiting multiple times per week Past Surgical History: Procedure Laterality Date ??? LUMBAR PUNCTURE WO INJECTION, THERAPEUTIC N/A 11/04/2019 ??? WRIST SURGERY Allergies Allergen Reactions ??? Dog Dander Hives Reaction: HIVES, ??? Penicillins Other (See comments) and Rash As a child Reaction: NAUSEA;, As a child Social History Tobacco Use ??? Smoking status: Never Smoker Substance Use Topics ??? Alcohol use: Never Family History Adopted: Yes Family history unknown: Yes Immunization History Administered Date(s) Administered ??? DTaP 2002, 2002, 2002, 02/24/2003, 02/23/2006 ??? HPV9 02/22/2015, 12/06/2015, 06/09/2016 ??? Hep A, Unspecified 03/30/2007, 02/01/2008 ??? Hep B Vaccine 2002, 2002, 2002 ??? HiB 2002, 2002, 2002, 02/24/2003 ??? IPV 2002, 2002, 2002, 02/23/2006 ??? Influenza, Quadrivalent, Split, Preservative Free, Intramuscular 06/09/2016, 06/08/2017, 07/21/2018 ??? Influenza, Trivalent, Intramuscular 06/29/2013, 06/05/2014, 07/03/2015 ??? Influenza, Trivalent, Preservative Free, Intramuscular 06/25/2006, 07/11/2010, 06/17/2011, 05/22/2012, 07/04/2013 ??? Influenza, Unspecified 06/22/2019 ??? MMR 02/24/2003, 02/23/2006 ??? Meningococcal B, Recombinant (Trumenba) 08/17/2018, 09/02/2019 ??? Meningococcal MCV4P (Menactra) 09/12/2013, 08/17/2018 ??? PPD TEST 02/23/2006 ??? Pneumococcal Conjugate, Unspecified 2002, 2002, 02/24/2003 ??? Tdap 03/25/2013 ??? Varicella 02/24/2003, 02/01/2008 Social History: On private social history, Nina reports that these pain symptoms have been really hard for her to manage and have been causing her stress. She had started college in the fall and joined a [employer] but has been home since mid August due to abdominal pain frequency. She wants to attend college and feels sad that her friends are progressing along in courses and enjoying the college social environment while she is at home or in the hospital trying to control these symptoms. She describes herself as generally an optimistic person and reports that she is trying to remind herself that people haveit worse than her so she shouldn't be upset. 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 She had to drop a class due to a failing test grade but that was during the fall semester, and she is okay with it. She has several new friends and finds great support in them. She reports that her roommate is wonderful and was a huge help with her symptoms when she was living on campus. She has had some romantic interests, mostly with boys and most recently in late July. She endorses oral sex at the time but has ended this relationship since. She reports that all of her relationships have been consensual and that she has not felt unsafe. However, she reports that last week, she had to deal with some unwanted and persistent messages from a former male partner that made her feel very uncomfortable. He would not stop in his unwanted advances so she has blocked all of the numbers he has used to try to contact her and that has brought her relief from that stressor. She endorses rareuse of alcohol but no drug use, smoking, or vaping. Review of Systems: Constitutional: Positive for reduced appetite, fatigue. Unintentional weight loss of 40 lbs over 2 years. No fevers, no dizziness or headaches. Head, Ears, Nose, Throat: No rhinorrhea, congestion, mouth sores, or sore throat. Respiratory: No cough, shortness of breath, tachypnea. Cardiovascular: No chest pain, palpitation, or syncope. Gastroenterology: Positive for abdominal pain with nausea and blood tinged emesis. Negative for diarrhea or constipation Female: Adequate urine output. No dysuria or hematuria. Menses: Regular with next cycle scheduled to start on Thursday10/26/20 Neuro: No headache. No focal weakness or changes to gait. Positive for weakness. Psychiatry: Positive for stress but reports good mood. Objective Vitals: Arrival Vitals [10/23/20 2256] Temp 36.8 ??C (98.2 ??F) Pulse 74 Resp 18 BP 128/91 SpO2 99 % FiO2 (%) Physical Exam: General:alert, well appearing, cooperative, no acute distress and very pleasant and conversant. Laying comfortably with heating pad over abdomen Head: Normocephalic, atraumatic Eye:conjunctivae clear, PERRL, EOMI Nose:no drainage Oropharynx:MMM and posterior pharynx clear Neck: neck supple, no lymphadenopathy and thyroid symmetric Lungs:clear to auscultation bilaterally, normal WOB and good air movement Heart:regular rate and rhythm, normal S1 and S2 and no murmur, rubs, or gallops Abdomen:soft, non-distended, bowel sounds present, no masses, no organomegaly and mild abdominal tenderness to deep palpation, worst in LUQ Pulses:strong palpable radial pulse Skin:no rashes or lesions Neurologic:alert, face symmetric, PERRL, EOMI, moves all extremities and normal gait Lab/Radiology/Diagnostic Review: Laboratory review: Lab results in the last 24 hours: Recent Results (from the past 24 hour(s)) Comprehensive metabolic panel Collection Time: 10/24/20 1:07 AM Result Value Ref Range Sodium 138 135 - 145 mmol/L Potassium, pl Hemolyzed 3.3 - 4.9 mmol/L Chloride 106 97 - 110 mmol/L CO2 22 22 - 32 mmol/L Anion gap 10 2 - 15 mmol/L BUN 9 8 - 25 mg/dL Creatinine 0.89 0.40 - 1.00 mg/dL Glucose 81 70 - 199 mg/dL Calcium 9.2 8.5 - 10.3 mg/dL Bilirubin, total 0.3 0.1 - 1.2 mg/dL Protein, pl 7.5 6.5 - 8.5 g/dL Albumin 3.6 3.5 - 5.0 g/dL Alk phos Hemolyzed 70 - 260 Units/L ALT 13 7 - 45 Units/L AST Hemolyzed 10 - 45 Units/L Lipase Collection Time: 10/24/20 1:07 AM Result Value Ref Range Lipase 31 10 - 99 Units/L CRP (acute phase) Collection Time: 10/24/20 1:07 AM Result Value Ref Range CRP 16.4 (H) <=10.0 mg/L CBC with auto differential Collection Time: 10/24/20 1:07 AM Result Value Ref Range WBC 7.4 3.8 - 9.9 K/cumm Hgb 13.6 11.9 - 15.5 g/dL Hct 41.3 35.6 - 45.5 % Plt 345 150 - 400 K/cumm MPV 9.7 9.1 - 12.3 fL RBC 4.68 3.90 - 5.20 M/cumm MCV 88.2 81.3 - 96.4 fL MCH 29.1 27.1 - 33.3 pg MCHC 32.9 32.3 - 35.7 g/dL RDW CV 13.1 11.1 - 14.9 % RDW SD 42.3 35.7 - 48.1 fL NRBC abs 0.00 0.00 - 0.01 K/cumm TSH Collection Time: 10/24/20 1:07 AM Result Value Ref Range Thyroid Stimulating Hormone 1.12 0.30 - 4.20 mcIUnit/mL T4, free Collection Time: 10/24/20 1:07 AM Result Value Ref Range Free T4 1.07 0.90 - 1.70 ng/dL Differential, auto Collection Time: 10/24/20 1:07 AM Result Value Ref Range Neutrophil abs 3.4 1.7 - 6.5 K/cumm Imm gran abs 0.0 0.0 - 0.1 K/cumm Lymphocyte abs 2.9 0.8 - 3.3 K/cumm Monocyte abs 0.7 0.2 - 0.8 K/cumm Eosinophil abs 0.4 0.0 - 0.5 K/cumm Basophil abs 0.1 0.0 - 0.1 K/cumm Neutrophil pct 45.6 % Imm gran pct 0.4 % Lymphocyte pct 39.0 % Monocyte pct 9.1 % Eosinophil pct 5.1 % Basophil pct 0.8 % IgA Collection Time: 10/24/20 1:07 AM Result Value Ref Range Immunoglobulin A 258.6 70.0 - 400.0 mg/dL Urinalysis reflex to microscopic and culture Urine Collection Time: 10/24/20 2:43 AM Specimen: Urine Result Value Ref Range Color, ur Yellow Yellow Clarity, ur Clear Clear Specific gravity, ur 1.030 (H) 1.010 - 1.025 pH, urine 6.0 Protein, ur ql Trace Negative Glucose, ur ql Negative Negative Ketones, ur 1+ (A) Negative Bilirubin, ur Negative Negative Blood, ur Negative Negative Urobilinogen, ur <2.0 <2.0 mg/dL Nitrite, ur Negative Negative Leukocyte esterase, ur 1+ (A) Negative UA reflex comment Reflex to microscopic UA will be performed. hCG, urine, qualitative Collection Time: 10/24/20 2:43 AM Result Value Ref Range HCG, ur Negative Negative Drug screen, urine Collection Time: 10/24/20 2:43 AM Result Value Ref Range Drug screen, ur Negative Director Review Not Indicated Urinalysis, microscopic only Collection Time: 10/24/20 2:43 AM Result Value Ref Range WBC, ur 0-5 0 - 5 /HPF RBC, ur 0-2 0 - 2 /HPF Epithelial cells, squamous, ur 6-10 (A) 0 - 5 /HPF Mucous, ur Present (A) Culture Reflex Comment Reflex conditions for urine culture (WBC >10) not met. OF ACQUISITIONS OF ACQUISITIONS OF ACQUISITIONS OF ACQUISITIONS documented in this encounter Plan of Treatment Not on file documented as of this encounter Procedures Procedure Name Priority Date/Time Associated Diagnosis Comments DRUG SCREEN, URINE STAT 10/24/2020 2: 43 AM HEAD OF ACQUISITIONS URINALYSIS AND REFLEX TO MICROSCOPIC AND CULTURE STAT 10/24/2020 2:43 AM HEAD OF ACQUISITIONS HCG, URINE, QUALITATIVE STAT 10/24/2020 2:43 AM HEAD OF ACQUISITIONS URINALYSIS, MICROSCOPIC ONLY STAT 10/24/2020 2:43 AM HEAD OF ACQUISITIONS DIFFERENTIAL AUTO STAT 10/24/2020 1:0 7 AM HEAD OF ACQUISITIONS CBC WITH AUTO DIFFERENTIAL STAT 10/24/2020 1:07 AM HEAD OF ACQUISITIONS TISSUE TRANSGLUTAMINASE, IGA STAT 10/24/2020 1:07 AM HEAD OF ACQUISITIONS CRP (ACUTE PHASE) STAT 10/24/2020 1:0 7 AM HEAD OF ACQUISITIONS TSH STAT 10/24/2020 1:07 AM HEAD OF ACQUISITIONS T4, FREE STAT 10/24/2020 1:07 AM HEAD OF ACQUISITIONS LIPASE STAT 10/24/2020 1:07 AM HEAD OF ACQUISITIONS IGA STAT 10/24/2020 1:07 AM HEAD OF ACQUISITIONS COMPREHENSIVE METABOLIC PANEL STAT 10/24/2020 1:07 AM HEAD OF ACQUISITIONS documented in this encounter Results * (ABNORMAL) Urinalysis, microscopic only (10/24/2020 2:43 AM HEAD OF ACQUISITIONS) WBC, ur 0-5 0 - 5 /HPF [facility] RBC, ur 0-2 0 - 2 /HPF [facility] Epithelial cells, squamous, ur 6-10(A) 0 - 5 /HPF [facility] Comment:Suggestive of contam ination. Consider recollection by clean catch. Mucous, ur Present(A) [facility] Culture Reflex Comment Reflex conditions for urine culture (WBC >10) not met. [facility] Urine 10/24/2020 2:43 AM HEAD OF ACQUISITIONS 10/24/2020 2:50 AM HEAD OF ACQUISITIONS Nehal Means MD LAB URINE ORDERABLES Final Result Performing Organization Address City/[facility]/[place] [address] * Drug screen, urine (10/24/2020 2:43 AM HEAD OF ACQUISITIONS) Drug screen, ur Negative [facility] Comment: Interpretive Data This test detects the presence of approximately 50 substances using LC-tandem mass spectrometry. For a list of specific compounds and detection limits refer to the Lab Test Guide Book. While this technique is highly specific, false-positive and false-negative findings may occur in very rare circumstances. Contact the [employer] set[employer] induction heating equipment ([phone]) for consultation if needed. This test was developed and its performance characteristics determined by [facility]. It has not been cleared or approved by the U.S. Food and Drug Administration. Current interpretive data was last revised 2016. Director Review Not Indicated [facility] Urine 10/24/2020 2:43 AM HEAD OF ACQUISITIONS 10/24/2020 2:50 AM HEAD OF ACQUISITIONS Johnna Zhu MD LAB URINE ORDERABLES F inal Result Performing Organization Address [facility] [place] [address] * hCG, urine, qualitative (10/24/2020 2:43 AM HEAD OF ACQUISITIONS) HCG, ur Negative Negative [facility] Urine 10/24/2020 2:43 AM HEAD OF ACQUISITIONS 10/24/2020 2:50 AM HEAD OF ACQUISITIONS Nehal Means MD LAB URINE ORDERABLES Final Result Performing Organization Address City/[facility]/[place] [address] * (ABNORMAL) Urinalysis reflex to microscopic and culture Urine (10/24/2020 2:43 AM HEAD OF ACQUISITIONS) Color, ur Yellow Yellow [facility] Clarity, ur Clear Clear [facility] Specific gravity, ur 1.030(H) 1.010 - 1.025 [facility] pH, urine 6.0 [facility] Protein, ur ql Trace Negative [facility] Glucose, ur ql Negative Negative [facility] Ketones, ur 1+(A) Negative [facility] Bilirubin, ur Negative Negative [facility] Blood, ur Negative Negative [facility] Urobilinogen, ur <2.0 <2.0 mg/dL [facility] Nitrite, ur Negative Negative [facility] Leukocyte esterase, ur 1+(A) Negative [facility] UA reflex comment Reflex to microscopic UA will be performed. [facility] Urine 10/24/2020 2:43 AM HEAD OF ACQUISITIONS 10/24/2020 2:50 AM HEAD OF ACQUISITIONS Narrative [facility] - 10/24/2020 3:25 AM HEAD OF ACQUISITIONS ?? Urine pH is affected by diet, medications, systemic acid-base disturbances, and renal tubular function. ??pH may affect urinary stone formation. ??For example, urine pH below 6.0 may help reduce the tendency for calcium phosphate stones and pH greater than 6.0 may reduce the tendency for uric acid stone formation. Source: [facility] [employer]. Last revised 09-10-2017 Nehal Means MD LAB MICROBIOLOGY - GENERAL ORDERABLES Final Result [facility] [place] [address] * IgA (10/24/2020 1:07 AM HEAD OF ACQUISITIONS) Immunoglobulin A 258.6 70.0 - 400.0 mg/dL [facility] Comment:Repeated and Verifie d Blood specimen (specimen) 10/24/2020 1:07 AM HEAD OF ACQUISITIONS 10/24/2020 1:25 AM HEAD OF ACQUISITIONS Klaudia Meneses MD LAB BLOOD ORDERABLES Final Result [facility] [place] [address] * Differential, auto (10/24/2020 1:07 AM HEAD OF ACQUISITIONS) Neutrophil abs 3.4 1.7 - 6.5 K/cumm [facility] Imm gran abs 0.0 0.0 - 0.1 K/cumm [facility] Lymphocyte abs 2.9 0.8 - 3.3 K/cumm [facility] Monocyte abs 0.7 0.2 - 0.8 K/cumm [facility] Eosinophil abs 0.4 0.0 - 0.5 K/cumm [facility] Basophil abs 0.1 0.0 - 0.1 K/cumm [facility] Neutrophil pct 45.6 % [facility] Comment: Interpretive Data Percent cell count reference ranges are not reported, since discordance with absolute values may lead to misinterpretation of CBC data. Current Interpretive Data was last revised on 2017. Imm gran pct 0.4 % [facility] Comment: Interpretive Data Percent cell count reference ranges are not reported, since discordance with absolute values may lead to misinterpretation of CBC data. Current Interpretive Data was last revised on 2017. Lymphocyte pct 39.0 % [facility] Comment: Interpretive Data Percent cell count reference ranges are not reported, since discordance with absolute values may lead to misinterpretation of CBC data. Current Interpretive Data was last revised on 2017. Monocyte pct 9.1 % [facility] Comment: Interpretive Data Percent cell count reference ranges are not reported, since discordance with absolute values may lead to misinterpretation of CBC data. Current Interpretive Data was last revised on 2017. Eosinophil pct 5.1 % [facility] Comment: Interpretive Data Percent cell count reference ranges are not reported, since discordance with absolute values may lead to misinterpretation of CBC data. Current Interpretive Data was last revised on 2017. Basophil pct 0.8 % [facility] Comment: Interpretive Data Percent cell count reference ranges are not reported, since discordance with absolute values may lead to misinterpretation of CBC data. Current Interpretive Data was last revised on 2017. Blood specimen (specimen) 10/24/2020 1:07 AM HEAD OF ACQUISITIONS 10/24/2020 1:25 AM HEAD OF ACQUISITIONS us Johnna Zhu MD LAB BLOOD ORDERABLES F inal Result Performing Organization Address [facility] [place] [address] * Tissue transglutaminase IgA (TGG-IgA Ab) (10/24/2020 1:07 AM HEAD OF ACQUISITIONS) TTG ab, IgA <0.5 <=14.9 units/mL [facility] Comment: Interpretive data Negative: <15 units/mL Positive: > or equal to 15 units/mL Current interpretive data was last revised on 2016. Testing performed by: [facility], [address] [place] [address]., [id number] Blood specimen (specimen) 10/24/2020 1:07 AM HEAD OF ACQUISITIONS 10/24/2020 4:00 AM HEAD OF ACQUISITIONS Result [facility] us Johnna Zhu MD LAB BLOOD ORDERABLES F inal Result Performing Organization Address [facility] [place] [address] * T4, free (10/24/2020 1:07 AM HEAD OF ACQUISITIONS) Free T4 1.07 0.90 - 1.70 ng/dL [facility] Blood specimen (specimen) 10/24/2020 1:07 AM HEAD OF ACQUISITIONS 10/24/2020 1:25 AM HEAD OF ACQUISITIONS us Johnna Zhu MD LAB BLOOD ORDERABLES F inal Result Performing Organization Address [facility] de Phone Number [facility] [place] [address] * TSH (10/24/2020 1:07 AM HEAD OF ACQUISITIONS) Pathologist [facility] Thyroid Stimulating Hormone 1.12 0.30 - 4.20 mcIUnit/mL [facility] Blood specimen (specimen) 10/24/2020 1:07 AM HEAD OF ACQUISITIONS 10/24/2020 1:25 AM HEAD OF ACQUISITIONS Johnna Zhu MD LAB BLOOD ORDERABLES F inal Result Performing Organization Address [facility] [place] [address] * CBC with auto differential (10/24/2020 1:07 AM HEAD OF ACQUISITIONS) [facility] WBC 7.4 3.8 - 9.9 K/cumm [facility] Hgb 13.6 11.9 - 15.5 g/dL [facility] Hct 41.3 35.6 - 45.5 % [facility] Plt 345 150 - 400 K/cumm [facility] MPV 9.7 9.1 - 12.3 fL [facility] RBC 4.68 3.90 - 5.20 M/cumm [facility] MCV 88.2 81.3 - 96.4 fL [facility] MCH 29.1 27.1 - 33.3 pg [facility] MCHC 32.9 32.3 - 35.7 g/dL [facility] RDW CV 13.1 11.1 - 14.9 % [facility] RDW SD 42.3 35.7 - 48.1 fL [facility] NRBC abs 0.00 0.00 - 0.01 K/cumm [facility] Blood specimen (specimen) (Blood, Venous) 10/24/2020 1:07 AM HEAD OF ACQUISITIONS 10/24/2020 1:25 AM HEAD OF ACQUISITIONS Johnna Zhu MD LAB BLOOD ORDERABLES F inal Result Performing Organization Address [facility] [place] [address] * (ABNORMAL) CRP (acute phase) (10/24/2020 1:07 AM HEAD OF ACQUISITIONS) [facility] CRP 16.4(H) <=10.0 mg/L [facility] Blood specimen (specimen) 10/24/2020 1:07 AM HEAD OF ACQUISITIONS 10/24/2020 1:25 AM HEAD OF ACQUISITIONS Johnna Zhu MD LAB BLOOD [place] [address] * Lipase (10/24/2020 1:07 AM HEAD OF ACQUISITIONS) [facility] Lipase 31 10 - 99 Units/L [facility] Comment:Repeated on dilution . Blood specimen (specimen) 10/24/2020 1:07 AM HEAD OF ACQUISITIONS 10/24/2020 1:25 AM HEAD OF ACQUISITIONS Johnna Zhu MD LAB BLOOD ORDERABLES F inal Result Performing Organization Address [facility] [place] [address] * Comprehensive metabolic panel (10/24/2020 1:07 AM HEAD OF ACQUISITIONS) [facility] Sodium 138 135 - 145 mmol/L [facility] Potassium, pl Hemolyzed 3.3 - 4.9 mmol/L [facility] Comment:Hemolyzed result; Un reliable to report. Telephoned report to DEANNE DIEHL RN on 2020-10-24 02:46:57 by Matthew Willard Chloride 106 97 - 110 mmol/L [facility] CO2 22 22 - 32 mmol/L [facility] Anion gap 10 2 - 15 mmol/L [facility] BUN 9 8 - 25 mg/dL [facility] Creatinine 0.89 0.40 - 1.00 mg/dL [facility] Glucose 81 70 - 199 mg/dL [facility] Comment: Interpretive Data Fasting glucose >/= 126 [...] classification and Diagnosis of Diabetes Diabetes Care 2019; 42:S13-S28. Current interpretive data was last revised 2017. Calcium 9.2 8.5 - 10.3 mg/dL [facility] Bilirubin, total 0.3 0.1 - 1.2 mg/dL [facility] Protein, pl 7.5 6.5 - 8.5 g/dL [facility] Albumin 3.6 3.5 - 5.0 g/dL [facility] Alk phos Hemolyzed 70 - 260 Units/L [facility] Comment:Hemolyzed result; Un reliable to report. Telephoned report to DEANNE DIEHL RN on 2020-10-24 02:46:57 by Matthew Willard ALT 13 7 - 45 Units/L [facility] AST Hemolyzed 10 - 45 Units/L [facility] Comment:Hemolyzed result; Un reliable to report. Telephoned report to DEANNE DIEHL RN on 2020-10-24 02:46:57 by Matthew Willard Blood specimen (specimen) 10/24/2020 1:07 AM HEAD OF ACQUISITIONS 10/24/2020 1:25 AM HEAD OF ACQUISITIONS us Johnna Zhu MD LAB BLOOD ORDERABLES F inal Result [facility] Department [place] [address] documented in this encounter Visit Diagnoses Diagnosis Vomiting- Primary Vomiting alone Dehydration Abdominal pain Abdominal pain, unspecified site Hematemesis with nausea Penicillin allergy Personal history of allergy to penicillin Hematemesis Dehydration documented in this encounter Admitting Diagnoses Diagnosis Dehydration documented in this encounter Administered Medications Inactive Administered Medications - up to 3 most recent administrations Medication Order MAR Action Action Date Dose Rate Site acetaminophen (TYLENOL) tablet 650 mg 650 mg, oral, Every 6 hours PRN, 1st line for pain, Starting on Thu10/24/20 at 0247 Given 10/25/2020 5:24 PM HEAD OF ACQUISITIONS 650 mg Given 10/25/2020 6:36 AM HEAD OF ACQUISITIONS 650 mg Given 10/24/2020 5:07 PM HEAD OF ACQUISITIONS 650 mg cetirizine (ZyrTEC) tablet 10 mg 10 mg, oral, Daily, First dose on Thu10/24/20 at 0900 Given 10/26/2020 8:30 PM HEAD OF ACQUISITIONS 10 mg Given 10/25/2020 8:23 PM HEAD OF ACQUISITIONS 10 mg Given 10/24/2020 8:19 PM HEAD OF ACQUISITIONS 10 mg dextrose 5% and sodium chloride 0.9% with potassium chloride 20 mEq/L infusion (premix) 100 mL/hr, intravenous, Continuous, Starting on Thu10/24/20 at 0330 New Bag 10/26/2020 5:12 AM HEAD OF ACQUISITIONS 100 mL/hr 100 mL/hr New Bag 10/25/2020 5:24 PM HEAD OF ACQUISITIONS 100 mL/hr 100 mL/hr New Bag 10/25/2020 8:32 AM HEAD OF ACQUISITIONS 100 mL/hr 100 mL/hr diphenhydrAMINE (BENADRYL) tab/cap 25 mg 25 mg, oral, Every 6 hours PRN, 2nd line for pain, Starting on Thu10/24/20 at 0247 Given 10/24/2020 3:41 AM HEAD OF ACQUISITIONS 25 mg escitalopram (LEXAPRO) tablet 20 mg 20 mg, oral, Daily, First dose on Thu10/24/20 at 0900 Given 10/26/2020 8:30 PM HEAD OF ACQUISITIONS 20 mg Given 10/25/2020 8:23 PM HEAD OF ACQUISITIONS 20 mg Given 10/24/2020 8:19 PM HEAD OF ACQUISITIONS 20 mg fluticasone furoate-vilanteroL (BREO ELLIPTA) 100-25 mcg/dose inhaler 1 puff 1 puff, inhalation, Daily, First dose on Thu10/24/20 at 0900, Rinse mouth with water after use. Do not swallow. Given 10/26/2020 8:30 PM HEAD OF ACQUISITIONS 1 puff Given 10/25/2020 8:24 PM HEAD OF ACQUISITIONS 1 puff Given 10/24/2020 9:32 PM HEAD OF ACQUISITIONS 1 puff hyoscyamine (LEVSIN) 0.125 mg/mL oral drops 0.25 mg 0.25 mg, oral, Every 4 hours PRN, cramping, Starting on Thu10/24/20 at 1149 Given 10/26/2020 6:32 PM HEAD OF ACQUISITIONS 0.25 mg Given 10/25/2020 10:16 PM HEAD OF ACQUISITIONS 0.25 mg Given 10/25/2020 4:18 PM HEAD OF ACQUISITIONS 0.25 mg lansoprazole (PREVACID) capsule 30 mg 30 mg, oral, 2 times daily, First dose on Thu10/25/20 at 1700, Capsules may be opened and contents mixed with food or beverage. Contents should not be crushed or chewed after mixing., Indications: Stress Ulcer ProphylaxisIndications:Stress Ulcer Prophylaxis Given 10/27/2020 8:49 AM HEAD OF ACQUISITIONS 30 mg Given 10/26/2020 5:23 PM HEAD OF ACQUISITIONS 30 mg Given 10/26/2020 9:16 AM HEAD OF ACQUISITIONS 30 mg lidocaine 1% buffered injection 0.1 mL 0.1 mL, subcutaneous, Once as needed, other, IV insertion, Starting on Thu10/25/20 at 2022, For 1 dose, Maximum daily dose 0.1 mL/kg Administer immediately prior to procedure. Given 10/25/2020 8:35 PM HEAD OF ACQUISITIONS 0.1 mL Other (Comment) melatonin tablet 3 mg 3 mg, oral, Nightly PRN, sleep, Starting on Thu10/24/20 at 0346 neomycin (MYCIFRADIN) tablet 500 mg 500 mg, oral, 2 times daily, First dose on Thu10/25/20 at 1145, Indications: Other (complete free text reason below), SIBOIndications:Other (complete free text reason below),SIBO Given 10/27/2020 8:49 AM HEAD OF ACQUISITIONS 500 mg Given 10/26/2020 8:30 PM HEAD OF ACQUISITIONS 500 mg Given 10/26/2020 9:16 AM HEAD OF ACQUISITIONS 500 mg norgestimate-ethinyl estradioL (ORTHO TRI-CYCLEN LO) 0.18/0.215/0.25 mg-25 mcg per tablet 1 tablet 1 tablet, oral, Daily, First dose on Thu10/24/20 at 0900, Drug Name: Norgestimate-ethinyl estradiol (ORTHO TRI-CYCLEN LO) 0.18/0.215/0.25 mg - 25 mcg, Form: tablet, Length of Therapy: Indefinite, How soon needed? (normally 72 hrs needed to procure): 0-24 hrs, Reason for Non-Formulary: patient preference Given 10/26/2020 8:30 PM HEAD OF ACQUISITIONS 1 tabl et Given 10/25/2020 8:24 PM HEAD OF ACQUISITIONS 1 tablet Given 10/24/2020 8:20 PM HEAD OF ACQUISITIONS 1 tablet ondansetron ODT (ZOFRAN-ODT) disintegrating tablet 4 mg 4 mg, oral, Once, On Thu10/24/20 at 0130, For 1 dose Given 10/24/2020 1:32 AM HEAD OF ACQUISITIONS 4 mg ondansetron ODT (ZOFRAN-ODT) disintegrating tablet 4 mg 4 mg, oral, Every 8 hours PRN, nausea, vomiting, Starting on Thu10/25/20 at 2208 Given 10/25/2020 10:14 PM HEAD OF ACQUISITIONS 4 mg pantoprazole (PROTONIX) IVPB (0.4 mg/mL in NS) 40 mg 40 mg, intravenous, Administer over 15 Minutes, Once, On Thu10/24/20 at 0105, For 1 dose, Indications: GI BleedIndications:GI Bleed New Bag 10/24/2020 2:17 AM HEAD OF ACQUISITIONS 40 mg pantoprazole (PROTONIX) IVPB (0.4 mg/mL in NS) 40 mg 40 mg, intravenous, Administer over 15 Minutes, Every 12 hours, First dose (after last modification) on Thu10/24/20 at 1530, Indications: GI BleedIndications:GI Bleed New Bag 10/25/2020 3:17 AM HEAD OF ACQUISITIONS 40 mg New Bag 10/24/2020 4:56 PM HEAD OF ACQUISITIONS 40 mg rifAXIMin (XIFAXAN) tablet 600 mg 600 mg (rounded from 550 mg), oral, 3 times daily, First dose on Thu10/25/20 at 1600, Indications: Other (complete free text reason below), SIBOIndications:Other (complete free text reason below),SIBO Given 10/27/2020 8:49 AM HEAD OF ACQUISITIONS 600 mg Given 10/26/2020 8:30 PM HEAD OF ACQUISITIONS 600 mg Given 10/26/2020 4:34 PM HEAD OF ACQUISITIONS 600 mg sodium chloride 0.9% bolus 1,000 mL 1,000 mL, intravenous, Once, On Thu10/24/20 at 0049, For 1 dose New Bag 10/24/2020 1:48 AM HEAD OF ACQUISITIONS 1,000 mL documented in this encounter Discontinued Medications Medication Sig Discontinue Reason Start Date End Da te ondansetron ODT (ZOFRAN-ODT) 4 mg disintegrating tablet Take 1 tablet (4 mg total) by mouth every 8 (eight) hours as needed for nausea or vomiting Duplicate order 09/03/2020 10/24/2020 dicyclomine (BENTYL) 20 mg tablet Take 1 tablet (20 mg total) by mouth 2 (two) times a day for 10 days Therapy completed 09/05/2020 10/25/2020 documented as of this encounter Active and Recently Administered Medications Times are shown in HEAD OF ACQUISITIONS. Scheduled Medication Order 10/25/2020 10/26/2020 10/27/2020 cetirizine (ZyrTEC) tablet 10 mg 10 mg, oral, Daily, First dose on Thu10/24/20 at 0900 2022 (Given - Provider: Tila Harmon RN) 2029 (Given - Provider: Tila Harmon RN) escitalopram (LEXAPRO) tablet 20 mg 20 mg, oral, Daily, First dose on Thu10/24/20 at 0900 2022 (Given - Provider: Tila Harmon RN) 2029 (Given - Provider: Tila Harmon RN) fluticasone furoate-vilanteroL (BREO ELLIPTA) 100-25 mcg/dose inhaler 1 puff 1 puff, inhalation, Daily, First dose on Thu10/24/20 at 0900, Rinse mouth with water after use. Do not swallow. 2023 (Given - Provider: Tila Harmon RN) 2029 (Given - Provider: Tila Harmon RN) lansoprazole (PREVACID) capsule 30 mg 30 mg, oral, 2 times daily, First dose on Thu10/25/20 at 1700, Capsules may be opened and contents mixed with food or beverage. Contents should not be crushed or chewed after mixing., Indications: Stress Ulcer Prophylaxis 1617 (Given - Provider: Nhi Ramirez RN) 0916 (Given - Provider: Demetria Gupta RN)172 (Given - Provider: Demetria Gupta RN) 0849 (Given - Provider: Jenn Benitez) neomycin (MYCIFRADIN) tablet 500 mg 500 mg, oral, 2 times daily, First dose on Thu10/25/20 at 1145, Indications: Other (complete free text reason below), SIBO 1148 (Given - Provider: Nhi Ramirez RN)2022 (Given - Provider: Tila Harmon RN) 0916 (Given - Provider: Demetria Gupta RN)2029 (Given - Provider: Tila Harmon RN) 0849 (Given - Provider: Jenn Benitez) norgestimate-ethinyl estradioL (ORTHO TRI-CYCLEN LO) 0.18/0.215/0.25 mg-25 mcg per tablet 1 tablet 1 tablet, oral, Daily, First dose on Thu10/24/20 at 0900, Drug Name: Norgestimate-ethinyl estradiol (ORTHO TRI-CYCLEN LO) 0.18/0.215/0.25 mg - 25 mcg, Form: tablet, Length of Therapy: Indefinite, How soon needed? (normally 72 hrs needed to procure): 0-24 hrs, Reason for Non-Formulary: patient preference 2023 (Given - Provider: Tila Harmon RN) 2029 (Given - Provider: Tila Harmon, GLENDA) pantoprazole (PROTONIX) IVPB (0.4 mg/mL in NS) 40 mg (CANCELED) 40 mg, intravenous, Administer over 15 Minutes, Every 12 hours, First dose (after last modification) on Thu10/24/20 at 1530, Indications: GI Bleed 0317 (New Bag - Provider: Gale Cortez RN) rifAXIMin (XIFAXAN) tablet 600 mg 600 mg (rounded from 550 mg), oral, 3 times daily, First dose on Thu10/25/20 at 1600, Indications: Other (complete free text reason below), SIBO 1617 (Given - Provider: Nhi Ramirez RN)2022 (Given - Provider: Tila Harmon GLENDA) 0915 (Given - Provider: Demetria Gupta, GLENDA)1634 (Given - Provider: Demetria uGpta, GLENDA)2030 (Given - Provider: Tila Harmon, GLENDA) 0849 (Given - Provider: Jenn Benitez) Continuous Medication Order 10/25/2020 10/26/2020 10/27/2020 dextrose 5% and sodium chloride 0.9% with potassium chloride 20 mEq/L infusion (premix) (CANCELED) 100 mL/hr, intravenous, Continuous, Starting on Thu10/24/20 at 0330 0832 (New Bag - Provider: Nhi Ramirez RN)1724 (New Bag - Provider: Nhi Ramirez RN) 0512 (New Bag - Provider: Sarah Lowe RN)1141 (Stopped - Provider: Demetria Gupta RN) PRN Medication Order 10/25/2020 10/26/2020 10/27/2020 acetaminophen (TYLENOL) tablet 650 mg 650 mg, oral, Every 6 hours PRN, 1st line for pain, Starting on Thu10/24/20 at 0247 0636 (Given - Provider: Gale Cortez RN)1724 (Given - Provider: Nhi Ramirez RN) albuterol HFA (PROVENTIL HFA,VENTOLIN HFA,PROAIR HFA) 90 mcg/actuation inhaler 2 puff 2 puff, inhalation, Every 4 hours PRN (incident response consultant), wheezing, shortness of breath, Starting on Thu10/24/20 at 0334 diphenhydrAMINE (BENADRYL) tab/cap 25 mg 25 mg, oral, Every 6 hours PRN, 2nd line for pain, Starting on Thu10/24/20 at 0247 hyoscyamine (LEVSIN) 0.125 mg/mL oral drops 0.25 mg 0.25 mg, oral, Every 4 hours PRN, cramping, Starting on Thu10/24/20 at 1149 1148 (Given - Provider: Nhi Ramirez RN)1618 (Given - Provider: Nhi Ramirez RN)2216 (Given - Provider: Tila Harmon RN) 183 (Given - Provider: Tila Harmon RN) lidocaine 1% buffered injection 0.1 mL (COMPLETED) 0.1 mL, subcutaneous, Once as needed, other, IV insertion, Starting on Celia 10/25/20 at 2021, For 1 dose, Maximum daily dose 0.1 mL/kg Administer immediately prior to procedure. 2034 (Given - Provider: Tila Harmon, GLENDA) melatonin tablet 3 mg 3 mg, oral, Nightly PRN, sleep, Starting on Thu10/24/20 at 0346 ondansetron ODT (ZOFRAN-ODT) disintegrating tablet 4 mg 4 mg, oral, Every 8 hours PRN, nausea, vomiting, Starting on Thu10/25/20 at 2208 2214 (Given - Provider: Tila Harmon RN) documented in this encounter Orders Medications Ordered That Jonny ht Not Have Been Administered Count Last Ordered Date First Ordered Date albuterol HFA (PROVENTIL HFA ,VENTOLIN HFA,PROAIR HFA) 90 mcg/actuation inhaler 2 puff 1 10/24/2020 lidocaine 1% buffered injection 0.1 mL 1 melatonin tablet 3 mg 1 10/24/2020 ondansetron (ZOFRAN) tablet 4 mg 1 10/24/19 21 pantoprazole (PROTONIX) IVPB (0.4 mg/mL in NS) 40 mg 1 10/24/2020 Lab Orders Without Results Count Last Ordered D ate First Ordered Date IGA 10/24/2020 Diet Count Last Ordered Date First Orde red Date PEDIATRIC DISCHARGE DIET 1 10/25/2020 Nursing Count Last Ordered Date First Orde red Date DISCHARGE INSTRUCTIONS 1 10/27/2020 DISCHARGE ACTIVITY 1 10/25/2020 DISCHARGE CALL PROVIDER 1 10/25/2020 MEASURE HEIGHT AND LENGTH 1 10/24/2020 WEIGH PATIENT 1 10/24/2020 Consult Count Last Ordered Date First Orde red Date IP CONSULT TO VASCULAR ACCESS TEAM 1 2020 IP CONSULT TO PSYCHOLOGY 1 10/24/2020 IV Count Last Ordered Date First Orde red Date INSERT PERIPHERAL IV 1 10/24/2020 ADT Patient Update Count Last Ordered Date Firs t Ordered Date ED IP DECISION TO ADMIT 1 10/24/2020 documented in this encounter Care Teams Rehabilitation Services Director Relationship Specialty Start Date End Date Johnna Tinajero MD [id number] [address] PCP - General Pediatrics 07/19/19 01/26/23 Johnna Tinajero MD [address] [address] 07/19/19 documented as of this encounter
--- OUTSIDE RECORDS SUMMARY | 2024-08-28 02:13 | XMS_ITS | Encounter Summary ---
Author Organization [facility] Address [address] [place] [address] Phone Care Team Providers Care Director Of Restaurant Operations Name Role Phone Johnna Tinajero MD Primary Care Provider + Johnna Tinajero MD Unavailable [phone] Reason for Visit * Reason Onset Date Comments Scheduling Appointments 04/05/2020 Encounter Details Date Type Department Care Team (Late st Contact Info) Description 04/05/2020 Telephone [facility] 2nd [place] [address] [place] [id number] Brandee Solorzano, RD [address] [facility] [address] [place] [address] Scheduling Appointments Social History Tobacco Use Types Packs/Day Years [...] on file 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 She would like me to call back around 2 today, * Telephone Encounter - Macy Morin RMA - 04/05/2020 12:28 PM CDT ----- Message from Brandee Solorzano RD sent at 04/05/2020 8:51 AM CDT ----- Moises Argueta, Please schedule follow up in about 3-4 months (over winter break, or sooner if desired). Thank you! Brandee documented in this encounter Plan of Treatment Not on file documented as of this encounter Visit Diagnoses Not on filedocumented in this encounter Care Teams Director Of Restaurant Operations Relationship Specialty Start Date End Date Johnna Tinajero MD [address] [address] PCP - General Pediatrics 07/19/19 01/26/23 Johnna Tinajero MD [address] [address] 07/19/19 documented as of this encounter
--- OUTSIDE RECORDS SUMMARY | 2024-08-28 02:13 | XMS_ITS | Encounter Summary ---
Author Organization [facility] Address [address] [place] [address] [address] [place] [address] Phone Care Team Providers Care Animal Care Provider Name Role Phone Johnna Tinajero MD Primary Care Provider + Johnna Tinajero MD Unavailable [phone] Encounter Details Date Type Department Care Team (Late st Contact Info) Description 09/04/2020 Documentation [facility] [address] [facility] [address] [place] [address] Johnna Tinajero MD [address] [place] [address] Social History Tobacco Use Types Packs/Day [...] on file 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 Since she had her breath test a week ago she has been having increase in GI symptoms Had blood in her BM that day, and once ever day since then, but with decreased amount. Sat she started vomiting. They called in zofran but minimally effective. Vomits about 20-30 minutes after eating or drinking anything. The pain is a lot more now and is stabbing and lower R. She Feels worn out and is lying down, resting.she reports that abdomen is in RLQ and periumbilical and hurts when moving around. I told mom and Nina to come to the office to see me today at 3.30. RAL FARM HAND documented in this encounter Plan of Treatment Not on file documented as of this encounter Visit Diagnoses Not on filedocumented in this encounter Care Teams Animal Care Provider Relationship Specialty Start Date End Date Johnna Tinajero MD [address] [address] PCP - General Pediatrics 07/19/19 01/26/23 Johnna Tinajero MD [address] [address] 07/19/19 documented as of this encounter
--- OUTSIDE RECORDS SUMMARY | 2024-08-28 02:13 | XMS_ITS | Encounter Summary ---
Author Organization [facility] Address [address] [place] [address] Phone Care Team Providers Care Clinical Dietetic Technician Name Role Phone Johnna Tinajero MD Primary Care Provider + Johnna Tinajero MD Unavailable [phone] Reason for Visit * Reason Onset Date Comments Scheduling Appointments 07/23/2020 Encounter Details Date Type Department Care Team (Late st Contact Info) Description 07/23/2020 Telephone [facility] Pediatric Gastroenterology [facility] 2nd [place] [address] [place] [address] Brandee Solorzano, RD 1 [facility] [address] [place] [address] Scheduling Appointments Social History Tobacco [...] on file Legal Sex 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 TECHNICAL SERVICES CONSULTANT Gender Identity Not on file Sexual Orientation Not on file documented as of this encounter Miscellaneous Notes * Telephone Encounter - Abner Charlton - 08/01/2020 8:34 AM CST Brandee, Did you talk to the mom today? Just wanted to make sure I schedule the correct date. Maryan Levine NICAL SERVICES CONSULTANT * Telephone Encounter - Brandee Solorzano RD - 08/01/2020 8:11 AM CST Can one of you please make a phone visit encounter so I can document there and mom can see the note? NICAL SERVICES CONSULTANT * Telephone Encounter - Brandee Solorzano RD - 08/01/2020 7:09 AM CST Can one of you please make a phone visit encounter so I can document there and mom can see the note? NICAL SERVICES CONSULTANT * Telephone Encounter - Brandee Solorzano RD - 07/30/2020 8:19 AM CST Per Mercedes: if the child did not sign a hippa giving them permission then we can???t share. You should direct them to HIM/Medical Records. Can you please let the family know? NICAL SERVICES CONSULTANT NICAL SERVICES CONSULTANT * Telephone Encounter - aMcy Morin RMA - 07/23/2020 3:50 PM TECHNICAL SERVICES CONSULTANT I called mom back she would like to keep the 08/01 appointment @ 8:30 for a phone call only. Mom said please call [employer] cell phone @ [phone] for this appointment. Mom also wanted to make sure shecould get a notice in my chart of what was talked about at the visit. NICAL SERVICES CONSULTANT NICAL SERVICES CONSULTANT * Telephone Encounter - Brandee Solorzano RD - 07/23/2020 3:38 PM CST I'm afraid there's nothing I can do except keep the appointment time and schedule a phone call instead. If there isn't a Thursday slot available, we can work out another time. Generally Thursday afternoons, Thursday afternoons, all day are available. Let me know what the family decides. Thanks! NICAL SERVICES CONSULTANT * Telephone Encounter - Macy Morin RMA - 07/23/2020 3:06 PM TECHNICAL SERVICES CONSULTANT I called Mom and let her know we were unable to do 08/01 appointment by zoom. It would have to be inperson because they live in [place]. The first available appointment was not be until 09/25. The patient is supposed to go back to school 09/10. Mom said she really wants her to be seen before going back. Is there any day that would work for you to have the patient come person before 09/10? NICAL SERVICES CONSULTANT documented in this encounter Plan of Treatment Not on file documented as of this encounter Visit Diagnoses Not on filedocumented in this encounter Care Teams Clinical Dietetic Technician Relationship Specialty Start Date End Date Johnna Tinajero MD [address] [facility] [address] [place] [address] PCP - General Pediatrics 07/19/19 01/26/23 Johnna Tinajero MD [address] [facility] [address] [place], [place] [id number] 07/19/19 documented as of this encounter
--- OUTSIDE RECORDS SUMMARY | 2024-08-28 02:13 | XMS_ITS | Encounter Summary ---
Author Organization [facility] Address [address] [place] [address] Phone Care Team Providers Care Senior Consultant Name Role Phone Johnna Tinajero MD Primary Care Provider + Johnna Tinajero MD Unavailable [phone] Encounter Details Date Type Department Care Team (Late st Contact Info) Description 09/06/2020 Telephone [facility] Pediatric Neurology [facility] 2nd [place] [address] [place] [address] Magnolia Hanna RN Social History Tobacco Use Types Packs/Day [...] on file Legal Sex 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 CERTIFIED PEDIATRIC NURSE PRACTITIONER Gender Identity Not on file Sexual Orientation Not on file documented as of this encounter Miscellaneous Notes * Telephone Encounter - Magnolia Hanna RN - 09/06/2020 3:56 PM CST Spoke with mom and passed on EEG results. I let mom know that sz first aid/precautions and prohibition on driving are still in place. Mom understands and will call us if there are any questions/concerns. Thanks! IFIED PEDIATRIC NURSE PRACTITIONER * Telephone Encounter - Magnolia Hanna RN - 09/06/2020 3:51 PM CST ----- Message from Nehal Riggs DO sent at 09/06/2020 3:46 PM CERTIFIED PEDIATRIC NURSE PRACTITIONER ----- [facility] team, Please let Nina and her mother know that Nina's EEG was normal. Please reiterate that this does not fully rule out seizure (although it is less likely) and that the seizure precautions/first aid and recommendation for no driving for 6 months from her event still stands. Thank you! ----- Message ----- From: Tete Downs MD Sent: 09/06/2020 3:24 PM CERTIFIED PEDIATRIC NURSE PRACTITIONER To: Nehal Riggs DO IFIED PEDIATRIC NURSE PRACTITIONER documented in this encounter Plan of Treatment Not on file documented as of this encounter Visit Diagnoses Not on filedocumented in this encounter Additional Health Concerns Infection Onset Date Last Indicated Resolved Time Respiratory Infection (JASMINE), contact + droplet Comment:Automatically added due to negative COVID-19 result. 09/04/2020 09/04/2020 09/18/2020 3:0 7 AM CERTIFIED PEDIATRIC NURSE PRACTITIONER documented as of this encounter Care Teams Senior Consultant Relationship Specialty Start Date End Date Johnna Tinajero MD [address] [facility] [address] [place] [address] PCP - General Pediatrics 07/19/19 01/26/23 Johnna Tinajero MD [address] [facility] [address] [place] [address] 07/19/19 documented as of this encounter
--- OUTSIDE RECORDS SUMMARY | 2024-08-28 02:13 | XMS_ITS | Encounter Summary ---
Author Organization [facility] Address [address] [place] [address] Phone Care Team Providers Care Healthcare Recruiter Name Role Phone Johnna Tinajero MD Primary Care Provider + Johnna Tinajero MD Unavailable [phone] Encounter Details Date Type Department Care Team (Late st Contact Info) Description 08/01/2020 8:30 AM IRONER SOCK Telemedicine [facility] Pediatric Gastroenterology [facility] 2nd [place] [address] [place] [id number] Brandee Solorzano, RD 1 [facility] [address] [place] [address] Social History Tobacco Use Types [...] on file Legal Sex 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 IRONER SOCK Gender Identity Not on file Sexual Orientation Not on file documented as of this encounter Patient Instructions * Patient Instructions* Brandee Solorzano RD - 08/01/2020 8:30 AM IRONER SOCK Plan ?? Discussed lifestyle habits for gut health and bloating. Recommend the following: ? Eat 4 times per day. Replace missed meals or snacks with nutrition shakes (Ensure Plus, Boost Plus, or OWYN) ? Increase fruits and vegetables exposures (try a bite or have it on every plate). ? Eliminate gas-producing vegetables: cabbage, broccoli, lentils, peas, beans, garlic, and onion. All other veggies encouraged. ? Avoid tight fitting clothing ? Avoid chewing gum and drinking from a straw ?? Follow up in 3-4 months ER SOCK documented in this encounter Progress Notes * Brandee Solorzano RD - 08/01/2020 8:30 AM CST Nutrition Note for Telemedicine Encounter This was a telemedicine visit with Nina Coyne which took place via Telephone . During the visit, I was located at home and the patient was located at home in the [facility]. The patient visit started at 0833 and ended at 0900. Total encounter time was 45 minutes, which includes time spent today on pre charting, the patient encounter, and post charting. The patient has been informed that the visit may not be secure and acknowledged the information. I have explained the option of participating in a telephone or video visit during the COVID-19 public health emergency to the patient. After being given an opportunity to ask questions about and discuss this type of visit, the patient verbally consented to proceeding with the telephone/video visit.The patient understands that this service replaces an office visit and they may be billed and/or responsible for any applicable copayments. GERSON Rosales 2000 20 y.o. Female Reason for Assessment Follow up; functional abdominal pain Medical History Medical Conditions Diagnosis ??? Migraine headache ??? Obesity ??? Asthma, moderate persistent, well-controlled ??? Abnormal electrocardiography ??? Dander (animal) allergy ??? Vitamin D deficiency ??? Irregular menses ??? Abdominal pain ??? Asthma ??? Anxiety ??? Chronic nausea ??? Mild malnutrition (CMS/HCC) ??? Vasovagal syncope Significant functional abdominal pain that has not resolved with medical management. Possible functional dyspepsia. 07/2019 symptoms began 09/14/19 2 month hx N/V and abd pain 11/04/19 normal gastric emptying 02/27 worsened migraine Social History Lives in [place], [place] Anthropometrics Wt Readings from Last 3 Encounters: 11/03/19 99.6 kg (219 lb 9.3 oz) (99 %, Z= 2.21)* 10/25/19 100.3 kg (221 lb 1.6 oz) (99 %, Z= 2.22)* 10/24/19 101.6 kg (223 lb 15.8 oz) (99 %, Z= 2.25)* * Growth percentiles are based on [facility] (Girls, 2-20 Years) data. Ht Readings from Last 3 Encounters: 11/03/19 163 cm (5' 4.17 ) (50 %, Z= -0.01)* 10/05/19 162.5 cm (5' 3.98 ) (47 %, Z= -0.09)* 09/13/19 161.5 cm (5' 3.58 ) (41 %, Z= -0.24)* * Growth percentiles are based on [facility] (Girls, 2-20 Years) data. There is no height or weight on file to calculate BMI. No height and weight on file for this encounter. No weight on file for this encounter. No height on file for this encounter. Anthropometric Notes 02/07: 198 lb 03/21 195 lb No new weight today. Nina denies weight loss; she believes she may have gained some Labs Reviewed. Medications No supplements Allergies Allergies Allergen Reactions ??? Dog Dander Hives Reaction: HIVES, ??? Penicillins Other (See comments) and Rash As a child Reaction: NAUSEA;, As a child Food and Nutrition-Related History 01/[address]: Pt with belly pain after eating. Water doesn't bother her. Sometimes heat pack helps. She has also tried prilosec and bland foods. She doesn't like to try new foods. Doesn't eat fish, steak, or other meats except chicken, doesn't like many veggies or fruits (will eat apples). She does like eggs, beans sometimes, and oats. She avoids dairy, although she used to like yogurt. 02/2020 visit: Nina reports she is not eating well. She says she is not hungry and doesn't want to eat. Neurologist took her off topiramate, which helped her appetite some. She is avoiding lactoseand trying to eat more fruits and vegetables. May skip lunch or dinner. Not usually snacking. Usualdiet includes bagel with cream cheese, pesto chicken sandwich, and popcorn. Drinking water. Today, Nina reports it doesn't matter what she eats, she always feels bloated afterward. She is not following any dietary restrictions, except she is trying to eat less fried foods. She is drinking water and some Boost, although not daily. Still, nausea is the symptom that limits her appetite the most. She tries to eat 3x/day, and she's able to do this 4/7 days/week. She chews 2 pc gum daily. She eats broccoli 1-2x/week; no other gas-producing veggies in routine diet. She always at least once each day. Symptoms (new symptoms are in bold): Bloating? Yes, every time after eating Gas? Yes - more gas than previously N/V? Nausea, vomiting 3x/week Loose stools? No (had lots of diarrhea one day at school, but thinks this was food poisoning) Hard stools? No Stools every day Belly pain feels like 4-5 out of 10 right now. Usually 4-5. Around 8-9 is worst in past week. Fast eater? No Physical activity - Running/cardio daily Sress - Nina is enjoying [facility] [employer] States the stress from school is not awful. She will finish up the rest of the semester virtually. Nutrition Diagnosis Decreased oral intake related to functional abdominal pain, nausea, and bloating as evidenced by 20lb unintended weight loss Status: Unresolved Plan ?? Discussed lifestyle habits for gut health and bloating. Recommend the following: ?? Eat 4 times per day. Replace missed meals or snacks with nutrition shakes (Ensure Plus, Boost Plus, or OWYN) ?? Increase fruits and vegetables exposures (try a bite or have it on every plate). ?? Eliminate gas-producing vegetables: cabbage, broccoli, lentils, peas, beans, garlic, and onion. All other veggies encouraged. ?? Avoid tight fitting clothing ?? Avoid chewing gum and drinking from a straw ?? Follow up in 3-4 months Goals No further unintended weight loss - IN PROGRESS Ability to eat without abdominal pain - IN PROGRESS Dietary intake meets 100% estimated calorie needs - IN PROGRESS Dietitian: Brandee Solorzano RD [facility] ER SOCK documented in this encounter Plan of Treatment Not on file documented as of this encounter Visit Diagnoses Not on filedocumented in this encounter Care Teams Healthcare Recruiter Relationship Specialty Start Date End Date Johnna Tinajero MD [address] [address] PCP - General Pediatrics 07/19/19 01/26/23 Johnna Tinajero MD [address] [address] 07/19/19 documented as of this encounter
--- OUTSIDE RECORDS SUMMARY | 2024-08-28 02:13 | XMS_ITS | Encounter Summary ---
Author Organization [facility] Address [address] [place] [address] Phone Care Team Providers Care Refrigerated Company Driver Name Role Phone Johnna Tinajero MD Primary Care Provider + Johnna Tinajero MD Unavailable [phone] Reason for Visit * Reason Onset Date Comments prescreen 04/05/2020 Encounter Details Date Type Department Care Team (Late st Contact Info) Description 04/05/2020 Telephone [facility] Pediatric Cardiology [facility] 2nd [place] [address] [place] [address] Maude Gould CMA prescreen Social History Tobacco Use Types Packs/Day Years [...] on file Legal Sex 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 MEMORIAL COUNSELOR Gender Identity Not on file Sexual Orientation Not on file documented as of this encounter Miscellaneous Notes * Telephone Encounter - Maude Gould CNA - 04/05/2020 9:43 AM CDT Attempted to contact Parent/Guardian regarding arrival procedure, universal masking, and visitor policy. No answer /no vm documented in this encounter Plan of Treatment Not on file documented as of this encounter Visit Diagnoses Not on filedocumented in this encounter Care Teams Refrigerated Company Driver Relationship Specialty Start Date End Date Johnna Tinajero MD [address] [address] PCP - General Pediatrics 07/19/19 01/26/23 Johnna Tinajero MD [address] [address] 07/19/19 documented as of this encounter
--- OUTSIDE RECORDS SUMMARY | 2024-08-28 02:13 | XMS_ITS | Encounter Summary ---
Author Organization [facility] Address [address] [place] [address] Phone Care Team Providers Care Town Justice Name Role Phone Johnna Tinajero MD Primary Care Provider + Johnna Tinajero MD Unavailable [phone] Encounter Details Date Type Department Care Team (Late st Contact Info) Description 09/12/[address] [facility] Pediatric Gastroenterology [facility] 2nd [place] [address] [place] [address] Brandee Solorzano, RD 1 [facility] [address] [place], [place] [id number] Social History Tobacco Use Types Packs/Day Years [...] on file Legal Sex 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 SENIOR INFORMATION DEVELOPER Gender Identity Not on file Sexual Orientation Not on file documented as of this encounter Miscellaneous Notes * Telephone Encounter - Brandee Solorzano RD - 09/12/2020 3:03 PM CST Called mom per her request re: diet for SIBO. Mom asked if there's anything they should do to prevent recurrence of bacterial overgrowth. I explained to mom that there is no diet recommendations for SIBO with strong scientific evidence. Theoretically it is beneficial to avoid fermentable sugars (FODMAPs), but a low FODMAP diet plus iNna's picky eating habits is too restrictive, as she has already lost significant amount of weight due to decreased oral intake. Mom asked about avoiding lactose and using Lactaid. Nina has tried this in the past, but it is reasonable to try this again. I will also send a list of most common FODMAPs, which is less restrictive than full low FODMAP diet. Will plan to discuss ways to substitute most common FODMAPs with low FODMAP alternatives at next visit on 10/24. Mom agreed with plan. OR INFORMATION DEVELOPER documented in this encounter Plan of Treatment Not on file documented as of this encounter Visit Diagnoses Not on filedocumented in this encounter Additional Health Concerns Infection Onset Date Last Indicated Resolved Time Respiratory Infection (JASMINE), contact + droplet Comment:Automatically added due to negative COVID-19 result. 09/04/2020 09/04/2020 09/18/2020 3:0 7 AM SENIOR INFORMATION DEVELOPER documented as of this encounter Care Teams Town Justice Relationship Specialty Start Date End Date Johnna Tinajero MD [address] [address] PCP - General Pediatrics 07/19/19 01/26/23 Johnna Tinajero MD [address] [address] 07/19/19 documented as of this encounter
--- OUTSIDE RECORDS SUMMARY | 2024-08-28 02:13 | XMS_ITS | Encounter Summary ---
Author Organization [facility] Address [address] [place] [address] Phone Care Team Providers Care Fire Safety Director Name Role Phone Johnna Tinajero MD Primary Care Provider + Johnna Tinajero MD Unavailable [phone] Reason for Visit * Reason Onset Date Comments ASKING IF POSSIBLE FOR TELE HEALTH APPOINTMENT 0 03/29/2020 Encounter Details Date Type Department Care Team (Late st Contact Info) Description 03/29/2020 Telephone [facility] Pediatric Gastroenterology [facility] 2nd [place] [address] [place] [address] Florina Rhodes MD [address] [place] [address] [address] [place] [address] ASKING IF POSSIBLE FOR TELE HEALTH APPOINTMENT Social History Tobacco Use Types Packs/Day Years [...] on file Legal Sex 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 POURED CONCRETE WALL 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 He said that the PNPs have full sessions to do these and may be the best option. If the family does not agree to that then he willstaff one with me if they are placed into my 8AM clinic slot on the days that I am working with him. Either way is fine with me. Can you see what the family will prefer? * Telephone Encounter - Patricia Carvajal - 04/02/2020 11:59 AM CDT MOM (LANNY) ASKING IF POSSIBLE FOR A TELE HEALTH VISIT WITH DR RHODES, [facility], [facility] FIRST AVAILABLE APPOINTMENT IS APRIL 30, 2020 * Telephone Encounter - Basilia Chambers RN - 04/02/2020 10:55 AM CDT Per neuro note, Nina's headaches have improved [facility] reviewed last week's call and would like to see Nina back for an RPV to re-evaluate Please call mom and schedule * Telephone Encounter - Florina Rhodes MD - 03/30/2020 1:25 PM CDT Yes, she needs to come in for a follow up. The plan was to go back on Topiramate if symptoms worsened. This was the discussion I had with Neurology. Are her headaches resolved? If not then she shouldprobably make a follow up appointment with both of us. * Telephone Encounter - Patricia Carvajal - 03/29/2020 11:50 AM CDT MOM (LANNY) WENT OFF OF MIGRAINE MEDICINE BEGINNING OF February, SINCE THEN ABDOMINAL PAIN HAVE GOTTEN WORST. PLEASE CALL MOM BACK TO DISCUSS [phone]. documented in this encounter Plan of Treatment Not on file documented as of this encounter Visit Diagnoses Not on filedocumented in this encounter Care Teams Fire Safety Director Relationship Specialty Start Date End Date Johnna Tinajero MD [address] [address] PCP - General Pediatrics 07/19/19 01/26/23 Johnan Tinajero MD [address] [address] 07/19/19 documented as of this encounter
--- OUTSIDE RECORDS SUMMARY | 2024-08-28 02:13 | XMS_ITS | Encounter Summary ---
Author Organization [facility] Address [address] [place] [address] Phone Care Team Providers Care Fish Tender Name Role Phone Johnna Tinajero MD Primary Care Provider + Johnna Tinajero MD Unavailable [phone] Encounter Details Date Type Department Care Team (Late st Contact Info) Description 09/05/2020 Telephone [facility] Pediatric Gastroenterology [facility] 2nd [place] [address] [place] [address] Madyson Uriostegui, BROILER CHEF OR COOK 1 [facility] [address] [place] [address] Social History Tobacco Use Types [...] on file Legal Sex 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 RECEPTION SPECIALIST Gender Identity Not on file Sexual Orientation Not on file documented as of this encounter Miscellaneous Notes * Telephone Encounter - Patrica Peñaloza RN - 09/05/2020 9:48 AM CST See other call note. PTION SPECIALIST * Telephone Encounter - Macy Morin RMA - 09/05/2020 9:00 AM RECEPTION SPECIALIST Mom said she just missed a call from [employer]. I let her know what she said. She said she has some questions about all the medications they were sent home with from the ED. PTION SPECIALIST * Telephone Encounter - Macy Morin RMA - 09/05/2020 8:58 AM RECEPTION SPECIALIST FYI: ?? LM for mom with positive SIBO results, also sent [employer] message. Ordered Rifaximin TID. ?? Mom called office this morning wanting to be seen this week, before patient leaves for school. She was seen in ER & at PMD yesterday. ?? I do not have clinic in person for the rest of the week. It is likely best to start Rifaximin & see if that helps. If they want her to be seen, I'm happy to have someone else see her. Asked mom to call back to discuss. ??8:47 AM. PTION SPECIALIST * Telephone Encounter - Abner Charlton - 09/05/2020 8:40 AM CST Mom called to schedule a f/u appmt w/ JKS from a f/u ED visit on 09-04-20. Mom said the ED doc consulted with one of our GI docs and was told to call 1st thing this morning to schedule an appmt. Mom advised me that she is going back to school on Thursday so she wanted to be seen this week. I sent an email to JKS to see what her recommendation is and advised mom I would call her back. PTION SPECIALIST documented in this encounter Plan of Treatment Not on file documented as of this encounter Visit Diagnoses Not on filedocumented in this encounter Additional Health Concerns Infection Onset Date Last Indicated Resolved Time Respiratory Infection (JASMINE), contact + droplet Comment:Automatically added due to negative COVID-19 result. 09/04/2020 09/04/2020 09/18/2020 3: 07 AM RECEPTION SPECIALIST documented as of this encounter Care Teams Fish Tender Relationship Specialty Start Date End Date Johnna Tinajero MD [address] [address] PCP - General Pediatrics 07/19/19 01/26/23 Johnna Tinajero MD [address] [address] 07/19/19 documented as of this encounter
--- OUTSIDE RECORDS SUMMARY | 2024-08-28 02:13 | XMS_ITS | Encounter Summary ---
Author Organization [facility] Address [address] [place] [address] Phone Care Team Providers Care Ux Developer Designer Name Role Phone Johnna Tinajero MD Primary Care Provider + Johnna Tinajero MD Unavailable [phone] Encounter Details Date Type Department Care Team (Late st Contact Info) Description 08/22/2020 Orders Only 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 Gender Identity Not on file Sexual Orientation Not on file documented as of this encounter Plan of Treatment Not on file documented as of this encounter Visit Diagnoses Diagnosis Vomiting without nausea, intractability of vomiting not specified, unspecified vomiting type- Primary Abdominal pain Abdominal pain, unspecified site documented in this encounter Orders Case Request Count Last Ordered Date First Orde red Date CASE REQUEST GI 1 08/22/2020 documented in this encounter Care Teams Ux Developer Designer Relationship Specialty Start Date End Date Johnna Tinajero MD [address] [address] PCP - General Pediatrics 07/19/19 01/26/23 Johnna Tinajero MD [address] [address] 07/19/19 documented as of this encounter
--- OUTSIDE RECORDS SUMMARY | 2024-08-28 02:13 | XMS_ITS | Encounter Summary ---
Author Organization [facility] Address [address] [place] [address] Phone Care Team Providers Care Criminal Attorney Name Role Phone Johnna Tinajero MD Primary Care Provider + Johnna Tinajero MD Unavailable Encounter Details Date Type Department Care Team (Late st Contact Info) Description 06/13/2020 Orders Only [facility] Pediatric Gastroenterology [facility] 2nd [place] [address] [place] [id number] Madyson Uriostegui, FUSE COILER 1 [facility] [address] [place], [place] [id number] Social History Tobacco Use Types Packs/Day Years [...] on file 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 Gender Identity Not on file Sexual Orientation Not on file documented as of this encounter Ordered Prescriptions Prescription Sig Dispense Quantity Refills Last Filled Start Date End Date ondansetron (ZOFRAN) 4 mg tablet Take 1 tablet (4 mg total) by mouth every 8 (eight) hours as needed for nausea or vomiting 50 tablet 06/13/2020 2 documented in this encounter Plan of Treatment Not on file documented as of this encounter Visit Diagnoses Not on filedocumented in this encounter Care Teams Criminal Attorney Relationship Specialty Start Date End Date Johnna Tinajero MD [address] [address] PCP - General Pediatrics 07/19/19 01/26/23 Johnna Tinajero MD [address] [address] 07/19/19 documented as of this encounter
--- OUTSIDE RECORDS SUMMARY | 2024-08-28 02:13 | XMS_ITS | Encounter Summary ---
Author Organization [facility] Address [address] [place] [address] Phone Care Team Providers Care Manager Plant Name Role Phone Johnna Tinajero MD Primary Care Provider + Johnna Tinajero MD Unavailable [phone] Encounter Details Date Type Department Care Team (Late st Contact Info) Description 11/05/2020 Orders Only [facility] Pediatric Gastroenterology [facility] Medical Office Building [address] [place] [address] Madyson Uriostegui, STATISTICAL MACHINE MECHANIC 1 [facility] [address] [place] [address] Social History Tobacco Use Types [...] on file 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 Gender Identity Not on file Sexual Orientation Not on file documented as of this encounter Ordered Prescriptions Prescription Sig Dispense Quantity Refills Last Filled Start Date End Date hyoscyamine (LEVSIN) 0.125 mg/mL solutionIndication s:Irritable Bowel Syndrome Take 2 mL (0.25 mg total) by mouth every 4 (four) hours as needed for cramping 20 mL 1 11/05/2020 documented in this encounter Plan of Treatment Not on file documented as of this encounter Visit Diagnoses Not on filedocumented in this encounter Discontinued Medications Medication Sig Discontinue Reason Start Date End Da te hyoscyamine (LEVSIN) 0.125 mg/mL solution Take 2 mL (0.25 mg total) by mouth every 4 (four) hours as needed for cramping Reorder 10/26/2020 11/05/2020 documented as of this encounter Care Teams Manager Plant Relationship Specialty Start Date End Date Johnna Tinajero MD [address] [address] PCP - General Pediatrics 07/19/19 01/26/23 Johnna Tinajero MD [address] [address] 07/19/19 documented as of this encounter
--- OUTSIDE RECORDS SUMMARY | 2024-08-28 02:13 | XMS_ITS | Encounter Summary ---
Author Organization [facility] Address [address] [place] [address] Phone Care Team Providers Care Applied Behavior Science Specialist Name Role Phone Johnna Tinajero MD Primary Care Provider + Johnna Tinajero MD Unavailable [phone] Encounter Details Date Type Department Care Team (Late st Contact Info) Description 09/01/2020 Telephone [facility] Pediatric Gastroenterology [facility] 2nd [place] [address] [place] [address] Nehal Cummings MD [address] [place] [address] [address] [place] [address] Social History Tobacco Use Types [...] on file 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 She has been having increased bloating and abdominal pain (sharp, below umbilicus) since her SIBO test on Thursday. She has had occasional emesis, sofar 4 times today (1 this afternoon, 3 this evening). She tried the peppermint oil capsule but couldn't keep it down. She hasn't taken Zofran since she can't find her supply (she may have left it at college). The blood in stool (that they messaged about earlier this week) is improving. I recommended trying peppermint oil in diffuser (rather than oral). I also provided a small supply of Zofran. She will focus on fluid intake. She can try benadryl or tylenol for abdominal pain. She should call back if blood in emesis, bilious emesis, decreased urine output, severe pain keeping her awake at night. RAM THERAPIST documented in this encounter Plan of Treatment Not on file documented as of this encounter Visit Diagnoses Not on filedocumented in this encounter Care Teams Applied Behavior Science Specialist Relationship Specialty Start Date End Date Johnna Tinajero MD [address] [address] PCP - General Pediatrics 07/19/19 01/26/23 Johnna Tinajero MD [address] [address] 07/19/19 documented as of this encounter
--- OUTSIDE RECORDS SUMMARY | 2024-08-28 02:13 | XMS_ITS | Encounter Summary ---
Author Organization [facility] Address [address] [place] [address] Phone Care Team Providers Care Arm Maker Name Role Phone Johnna Tinajero MD Primary Care Provider + Johnna Tinajero MD Unavailable [phone] Encounter Details Date Type Department Care Team (Late st Contact Info) Description 06/12/2020 Orders Only 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 09/04/2020 09/04/2020 09/18/2020 3:0 7 AM SALES PLANNING ANALYST documented as of this encounter Care Teams Arm Maker Relationship Specialty Start Date End Date Johnna Tinajero MD [address] [address] PCP - General Pediatrics 07/19/19 01/26/23 Johnna Tinajero MD [address] [address] 07/19/19 documented as of this encounter
--- OUTSIDE RECORDS SUMMARY | 2024-08-28 02:13 | XMS_ITS | Encounter Summary ---
Author Organization [facility] Address [address] [place] [address] Phone Care Team Providers Care Corrective And Manual Arts Therapist Name Role Phone Johnna Tinajero MD Primary Care Provider + Johnna Tinajero MD Unavailable [phone] Encounter Details Date Type Department Care Team (Late st Contact Info) Description 03/28/2020 Telephone [facility] Pediatric Neurology 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 Provided clarification regarding topiramate. Per Dr. Riggs, , the topiramate wouldbe unlikely to work on her abdominal pain unless they were episodes related to her headaches (she seems to have both). GI may have some other thoughts for her abdominal pain so I'm glad that they will reach out to them. If they decide to go back on the topiramate, that is fine with me though! Mom said she did call GI yesterday. She has not received a call back. She said in one hand I wish we didn't stop topiramate because now the abdominal pain has increased but on the other hand since being off of it her appetite has increased and happy about that. Mom appreciated the call and time to help explain it and make her understand it better Mom has not further questions or concerns. Mom will call for any HUANG * Telephone Encounter - Nehal Riggs DO - 03/30/2020 10:03 AM CDT Thanks Natividad! If mom needs any further clarification, the topiramate would be unlikely to work on herabdominal pain unless they were episodes related to her headaches (she seems to have both). GI may have some other thoughts for her abdominal pain so I'm glad that they will reach out to them. If they decide to go back on the topiramate, that is fine with me though! Thank you! * Telephone Encounter - Leonor Barba RN - 03/29/2020 11:40 AM CDT Spoke to mom/Vicki. Discussed with mom that Dr. Riggs was only going to restart the topiramate if her headaches had worsened. Since she has been headache free there is no need to restart topiramate. The topiramate had not improved her abdominal pain, only her headaches. GI is managing her abdominal pain. Call and discuss with GI and her PCP if you would like to as well. GI also felt the topiramate had not helped her abdominal pain. Therefore, they may have other therapies in mind instead. Mom said she spoke with them a while back and GI did not have any solutions of what is causing it. Mom said her understanding was that topiramate has beneficial GI benefits and thought she would be placed back on it for return in headaches or worsening abdominal pain. Mom in agreement to call GI to discuss and aware to call if Nina develops headaches again * Telephone Encounter - Nehal Riggs DO - 03/28/2020 6:31 PM CDT Moises Henson, To clarify, we were going to resume the topiramate if the headaches had worsened but GI is managingher abdominal pain. The topiramate had not improved her abdominal pain, only her headaches. I am glad that she has continued to be headache free, but I agree with them calling GI to discuss this as GI also felt the topiramate had not helped her abdominal pain. Therefore, they may have other therapies in mind instead. Thank you! * Telephone Encounter - Leonor Barba RN - 03/28/2020 5:22 PM CDT Spoke to mom/Vicki. Since Nina has been off of topiramate they has been some changes. Last dose of topiramate was March 01. Since then she has had: Increased appetite No migraines Stomach problems never went away. No emesis. Stomach pressure center abdomen right above belly button and has increased in pain. Today c/o stomach pressure pain center of abdomen above and bellow belly button equal to her hips BM good Mom and Nina do not know what could be contributing to it but mom said she was told to call if stomach pain increased once topiramate was discontinued as Dr. Riggs may put her back on topiramate. They do not want to restart topiramate but mom wants to get her feeling as best as she can as she leaves for college in 2 weeks Mom has not called GI yet. Instructed mom to call GI tomorrow to provide update. Saw nutrition 1-2 weeks ago. Continues to see psychology (for CBT) and psychiatry, recommended discussing biofeedback ?? -ALINE will be emailed as she gave verbal that it is OK to discuss her care withher mom Discontinued topiramate from medication list * Telephone Encounter - Alan Newman - 03/28/2020 3:[address] Oneil Wood had a med change on her topiramate. Mom stated that she is doing ok and no ok with it. She would like a call back to discuss. documented in this encounter Plan of Treatment Not on file documented as of this encounter Visit Diagnoses Not on filedocumented in this encounter Discontinued Medications Medication Sig Discontinue Reason Start Date End Da te topiramate (TOPAMAX) 25 mg tablet Take 1 tablet (25 mg total) by mouth nightly 11/19/2019 03/28/2020 documented as of this encounter Care Teams Corrective And Manual Arts Therapist Relationship Specialty Start Date End Date Johnna Tinajero MD [address] [address] PCP - General Pediatrics 07/19/19 01/26/23 Johnna Tinajero MD [address] [address] 07/19/19 documented as of this encounter
--- OUTSIDE RECORDS SUMMARY | 2024-08-28 02:13 | XMS_ITS | Encounter Summary ---
Author Organization [facility] Address [address] [place] [address] Phone Care Team Providers Care Mitten Sewer Name Role Phone Johnna Tinajero MD Primary Care Provider + Johnna Tinajero MD Unavailable [phone] Reason for Visit * Reason Onset Date Comments Rectal Bleeding 08/29/2020 Encounter Details Date Type Department Care Team (Late st Contact Info) Description 08/29/[address] 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 She went to lay down and then went to the bathroom and had some blood on the toilet paper when she wiped. She is feeling ok. She told mom that her stool was softer than usual. She is having a stool daily. No vomiting noted today. She has vomiting intermittently but seems to vomit a few times per week. Mom stated that she will monitor for now, ensure she is not straining too much to release her stool. She will also watch for any blood without stool and if there are any increases in the pain. We will discuss with JKS MILLING WHEEL OPERATOR * Telephone Encounter - Macy Morin RMA - 08/29/2020 3:33 PM WET MILLING WHEEL OPERATOR Mom called and said she also talked to the PCP and they told her to call us. Nina had some blood in her stool today. Her pain level is the same as always. MILLING WHEEL OPERATOR documented in this encounter Plan of Treatment Not on file documented as of this encounter Visit Diagnoses Not on filedocumented in this encounter Additional Health Concerns Infection Onset Date Last Indicated Resolved Time COVID: Suspected 09/04/2020 09/04/2020 09/04/2020 7:11 PM WET MILLING WHEEL OPERATOR Respiratory Infection (JASMINE), contact + droplet Comment:Automatically added due to negative COVID-19 result. 09/04/2020 09/04/2020 09/18/2020 3:0 7 AM WET MILLING WHEEL OPERATOR documented as of this encounter Care Teams Mitten Sewer Relationship Specialty Start Date End Date Johnna Tinajero MD [address] [address] PCP - General Pediatrics 07/19/19 01/26/23 Johnna Tinajero MD [address] [address] 07/19/19 documented as of this encounter
--- OUTSIDE RECORDS SUMMARY | 2024-08-28 02:13 | XMS_ITS | Encounter Summary ---
Author Organization [facility] Address [address] [place] [address] Phone Care Team Providers Care Auto Air Conditioning Installer Name Role Phone Johnna Tinajero MD Primary Care Provider + Johnna Tinajero MD Unavailable [phone] Encounter Details Date Type Department Care Team (Late st Contact Info) Description 08/21/2020 3:00 PM FLOORING MACHINE OPERATOR Office Visit [facility] Pediatric Gastroenterology [address] [facility] [address] [place] [phone] Madyson Uriostegui, DIVERSIFIED CROPS SUPERVISOR [facility] [address] [place] [address] Chronic nausea (Primary Dx); Obesity without serious comorbidity with body mass index (BMI) greater than 99th percentile for age in pediatric patient, unspecified obesity type; Abdominal pain, lower; Vomiting without nausea, intractability of vomiting not specified, unspecified vomiting type Social History Tobacco Use Types Packs/Day Years [...] on file Legal Sex 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 FLOORING MACHINE OPERATOR Gender Identity Not on file Sexual Orientation Not on file documented as of this encounter Last Filed Vital Signs Vital Sign Reading Time Taken Comments Blood Pressure 118/70 08/21/2020 3:17 PM FLOORING MACHINE OPERATOR Pulse 100 08/21/2020 3:17 PM FLOORING MACHINE OPERATOR Temperature 36.1 ??C (97 ??F) 08/21/2020 3:17 PM FLOORING MACHINE OPERATOR Respiratory Rate 24 08/21/2020 3:17 PM FLOORING MACHINE OPERATOR Oxygen Saturation - - Inhaled Oxygen Concentration - - Weight 95 kg (209 lb 8 oz) 08/21/2020 3:17 PM CS T Height 160 cm (5' 3 ) 08/21/2020 3:17 PM FLOORING MACHINE OPERATOR Body Mass Index 37.11 08/21/2020 3:17 PM FLOORING MACHINE OPERATOR Body Mass Index Percentile 98.11% 08/21/2020 3:1 7 PM FLOORING MACHINE OPERATOR Growth Chart: CDC (Girls, 2- 20 Years) documented in this encounter Progress Notes * Madyson Uriostegui, DIVERSIFIED CROPS SUPERVISOR - 08/21/2020 3:00 PM CST 08/21/2020 Nina Elvin Coyne 2000 We saw Nina today for a follow-up visit in the Pediatric Gastroenterology, Hepatology & Nutrition office at [facility]. Nina is a 20 y.o. female with abdominal pain and nausea. She was accompanied by her mother. Her last visit was in March,. The history is from them and previous records including prior notes and laboratory results. HPI HPI Prior to this visit, I reviewed her records in [facility]. Patient is an established patient in our department. I have reviewed previous notes, phone calls, and pertinent information in the record. I last saw Nina in March, for telehealth visit of nausea and abdominal pain. We treated her with a course of Rifaximin for empiric treatment of SIBO. She felt a bit better for 2 months after that treatment. Her symptoms have gradually increased over the past several months. She complains of lower abdominal pain below the umbilicus. The pain comes/goes. It is sharp and goes away on its own. She cannot determine triggers to the pain. She complains of bloating and nausea, worse after eating. She is vomiting about 1-2 times per week, worse after dinner. She was vomiting in July on a daily basis. The frequency has reduced. She is not taking Omeprazole. She eats a albert nd diet, which is somewhat helpful. She tries to eat smaller portions throughout the day. In the evening she eats more of a meal and she thinks this makes symptoms worse. She is passing soft/solid stools x1-2 day. She denies diarrhea, constipation, hematochezia. Denies weight loss, fever, abdominal distention, rash, joint pains, oral ulcerations, hematochezia,and night-time waking with symptoms. She is in college, which as been stressful, especially due to COVID restrictions/worries. She does not think stress/anxiety has triggered her symptoms. Past medical, surgical, family and social history reviewed and confirmed. Allergies Allergen Reactions ??? Dog Dander Hives Reaction: HIVES, ??? Penicillins Other (See comments) and Rash As a child Reaction: NAUSEA;, As a child No orders of the defined types were placed in this encounter. Review of Systems Constitutional: Negative for appetite change, fatigue, fever and unexpected weight change. HENT: Negative for trouble swallowing. Eyes: Negative for visual disturbance. Respiratory: Negative for cough, choking, shortness of breath and wheezing. Cardiovascular: Negative for chest pain. Gastrointestinal: Negative for abdominal distention, blood in stool, constipation, nausea and vomiting. See HPI Genitourinary: Negative for dysuria, frequency and hematuria. Musculoskeletal: Negative for arthralgias and joint swelling. Skin: Negative for rash. Neurological: Negative for weakness. Psychiatric/Behavioral: Negative for behavioral problems and sleep disturbance. BP 118/70 Pulse 100 Temp 36.1 ??C (97 ??F) (Temporal) Resp 24 Ht 160 cm (5' 3 ) Wt 95 kg (209 lb 8 oz) BMI 37.11 kg/m?? Physical Exam Constitutional: Appearance: She is obese. HENT: Head: Normocephalic. Nose: Nose normal. Eyes: Conjunctiva/sclera: Conjunctivae normal. Pupils: Pupils are equal, round, and reactive to light. Neck: Musculoskeletal: Normal range of motion and neck supple. Cardiovascular: Rate and Rhythm: Normal rate and regular rhythm. Heart sounds: Normal heart sounds. No murmur. Pulmonary: Effort: Pulmonary effort is normal. Breath sounds: Normal breath sounds. Abdominal: General: Bowel sounds are normal. There is no distension. Palpations: Abdomen is soft. There is no mass. Tenderness: There is no abdominal tenderness. There is no guarding or rebound. Musculoskeletal: Normal range of motion. Lymphadenopathy: Cervical: No cervical adenopathy. Skin: General: Skin is warm and dry. Capillary Refill: Capillary refill takes less than 2 seconds. Neurological: Mental Status: She is alert and oriented to person, place, and time. Psychiatric: Behavior: Behavior normal. Assessment 1. Chronic nausea 2. Obesity without serious comorbidity with body mass index (BMI) greater than 99th percentile for age in pediatric patient, unspecified obesity type 3. Abdominal pain, lower 4. Vomiting without nausea, intractability of vomiting not specified, unspecified vomiting type Considerations: stress/anxiety, Small intestinal bacterial overgrowth (symptoms improved somewhat with first round of empiric treatment with Rifaximin), IBS, dietary intolerance. COVID-19 pandemic asbeen very stressful time for our teens and symptoms may be related. Plan Diagnoses and all orders for this visit: Chronic nausea Obesity without serious comorbidity with body mass index (BMI) greater than 99th percentile for agein pediatric patient, unspecified obesity type Abdominal pain, lower Vomiting without nausea, intractability of vomiting not specified, unspecified vomiting type The above considerations were reviewed with the patient in detail. Discussion regarding options for evaluation and treatment. Reviewed impact of stress and anxiety on symptoms. We discussed getting breath test to r/o SIBO as ongoing problem. Family agrees with this plan. Message sent to ND to scheduled. Encouraged self-care: keep body moving daily, deep breathing, relaxation, plenty of water, healthy diet. Madyson Uriostegui NP RING MACHINE OPERATOR documented in this encounter Plan of Treatment Not on file documented as of this encounter Visit Diagnoses Diagnosis Chronic nausea- Primary Nausea alone Obesity without serious comorbidity with body mass index (BMI) greater than 99th percentile for age in pediatric patient, unspecified obesity type Abdominal pain, lower Abdominal pain, other specified site Vomiting without nausea, intractability of vomiting not specified, unspecified vomiting type documented in this encounter Discontinued Medications Medication Sig Discontinue Reason Start Date End Da te albuterol (PROVENTIL,VENTOLIN) 1.25 mg/3 mL nebulizer solution Take 1.25 mg by nebulization every 4 (four) hours as needed for wheezing or shortness of breath Therapy completed 08/21/2020 documented as of this encounter Historical Medications * This list may reflect changes made after this encounter. cetirizine (ZyrTEC) 10 mg tablet Take 10 mg by mouth daily added in this encounter Care Teams Auto Air Conditioning Installer Relationship Specialty [place] [address] [place] [id number] PCP - General Pediatrics 07/19/19 01/26/23 Johnna Tinajero MD [address] [address] 07/19/19 documented as of this encounter
--- OUTSIDE RECORDS SUMMARY | 2024-08-28 02:13 | XMS_ITS | Encounter Summary ---
Author Organization [facility] Healthcare Address [address] [place] [address] Care Team Providers Care Head Banquet Waitress Name Role Phone Johnna Tinajero MD Primary Care Provider + Johnna Tinajero MD Unavailable [phone] Reason for Visit * Reason Comments Vomiting Abdominal Pain Encounter Details Date Type Department Care Team (Late st Contact Info) Description 09/04/2020 4:48 PM ACCOUNTS SUPERVISOR - 09/05/2020 1:19 AM [facility] Emergency [facility] [place] [address] Rosette Camara MD 1 [facility] [address] [place], [place] [id number] Abdominal pain (Primary Dx); Non-intractable vomiting without nausea, unspecified vomiting type Discharge Disposition: Discharge to home or self [...] on file Legal Sex 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 ACCOUNTS SUPERVISOR Gender Identity Not on file Sexual Orientation Not on file documented as of this encounter Last Filed Vital Signs Vital Sign Reading Time Taken Comments Blood Pressure 116/88 09/04/2020 4:44 PM ACCOUNTS SUPERVISOR Pulse 72 09/05/2020 1:10 AM ACCOUNTS SUPERVISOR Temperature 36.3 ??C (97.3 ??F) 09/05/2020 1:10 AM CS T Respiratory Rate 18 09/05/2020 1:10 AM ACCOUNTS SUPERVISOR Oxygen Saturation 95% 09/04/2020 4:44 PM ACCOUNTS SUPERVISOR Inhaled Oxygen Concentration - - Weight 94.6 kg (208 lb 8.9 oz) 09/04/2020 4:44 P M ACCOUNTS SUPERVISOR Height - - Body Mass Index 36.94 08/21/2020 3:17 PM ACCOUNTS SUPERVISOR Body Mass Index Percentile 98.04% 09/04/2020 4:4 4 PM ACCOUNTS SUPERVISOR Growth Chart: [facility] (Girls, 2- 20 Years) documented in this encounter Discharge Diagnoses Diagnosis Unspecified abdominal pain - UNSPECIFIED ABDOMINAL PAIN Vomiting, unspecified - VOMITING, UNSPECIFIED Other chronic pain - OTHER CHRONIC PAIN Unspecified asthma, uncomplicated - UNSPECIFIED ASTHMA, UNCOMPLICATED Migraine, unspecified, not intractable, without status migrainosus - MIGRAINE, UNSPECIFIED, NOT INTRACTABLE, WITHOUT STATUS MIGRAINOSUS documented in this encounter Discharge Instructions * Discharge Instructions* Americo Rodriguez MD - 09/05/2020 1:08 AM ACCOUNTS SUPERVISOR Please follow up with GI tomorrow as discussed. Call first thing in the morning to confirm your appointment. Take Bentyl in the meantime for your symptoms. You can additionally take ibuprofen as needed for pain. Return to the ED for significant worsening symptoms or any other urgent concern. UNTS SUPERVISOR UNTS SUPERVISOR UNTS SUPERVISOR * Attachments The following attachments cannot be sent through Care Everywhere. * Abdominal Pain, Unknown Cause, (Female) (Malaysian) * Acute Nausea and Vomiting in Children (AfterCare(R) Instructions(ER/ED)) (Malaysian) documented in this encounter Medications at Time of Discharge albuterol HFA (PROVENTIL HFA,VENTOLIN HFA,PROAIR HFA) 90 mcg/actuation inhaler Inhale 2 puffs every 6 (six) hours as needed for wheezing or shortness of breath cetirizine (ZyrTEC) 10 mg tablet Take 10 mg by mouth daily norgestimate-ethinyl estradiol (ORTHO TRI-CYCLEN LO) 0.18/0.215/0.25 mg-25 mcg per tablet Take 1 tablet by mouth daily 0 08/17/2019 dicyclomine (BENTYL) 20 mg tablet Take 1 tablet (20 mg total) by mouth 2 (two) times a day for 10 days 20 tablet 09/05/2020 1 escitalopram (LEXAPRO) 20 mg tabletIndications:An xiety Take 1 tablet (20 mg total) by mouth daily 30 tablet 2 10/13/2019 3 fluticasone furoate-vilanterol (Breo Ellipta) 100-25 mcg/dose diskus inhaler Inhale 1 puff daily 60 each 09/02/2019 3 metoclopramide (REGLAN) 10 mg tablet Take 1 tablet (10 mg total) by mouth every 6 (six) hours as needed (nausea, vomiting) 14 tablet 09/05/2020 2 ondansetron (ZOFRAN) 4 mg tablet Take 1 tablet (4 mg total) by mouth every 8 (eight) hours as needed for nausea or vomiting 50 tablet 06/13/2020 2 ondansetron ODT (ZOFRAN-ODT) 4 mg disintegrating tablet Take 1 tablet (4 mg total) by mouth every 8 (eight) hours as needed for nausea or vomiting 16 tablet 09/03/2020 1 prochlorperazine (Compazine) 10 mg tablet Take 1 tablet (10 mg total) by mouth every 6 (six) hours as needed for nausea or vomiting Take with benadryl. 30 tablet 2 11/10/2019 2 documented as of this encounter Ordered Prescriptions Prescription Sig Dispense Quantity Refills Last Filled Start Date End Date metoclopramide (REGLAN) 10 mg tablet Take 1 tablet (10 mg total) by mouth every 6 (six) hours as needed (nausea, vomiting) 14 tablet 09/05/2020 10/01/2021 metoclopramide (REGLAN) 10 mg tablet Take 1 tablet (10 mg total) by mouth every 6 (six) hours 30 tablet 09/05/2020 09/05/2020 dicyclomine (BENTYL) 20 mg tablet Take 1 tablet (20 mg total) by mouth 2 (two) times a day for 10 days 20 tablet 09/05/2020 10/25/2020 documented in this encounter Discharge Disposition Disposition Code Departure Means Destination Discharge to home or self care documented in this encounter ED Notes * Mayco Ovalle MD - 09/04/2020 6:03 PM CST HPI Chief Complaint Patient presents with Vomiting Abdominal Pain 20 yo F with history of chronic nausea/vomiting, abdominal pain (recent tx with rifaximin by WILL Gibson), migraines presents to ED c/o 4 days of worsened abdominal pain and vomiting. States pain began as her usual pain but gradually worsened and shifted form diffuse to concentrated in RLQ. She reports multiple episodes of vomiting per day with hematemesis x 1 last night. Also reports seeing drops of blood in her stool. States she has not been able to tolerate solids or liquids by mouth for thelast four days. Went to PCP yesterday who told her to go to ED. She denies sick contacts. Denies fevers, chills, SOB, chest pain, dizziness, vaginal discharge or bleeding, dysuria, or leg swelling. 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 Abnormal electrocardiography 01/19/2017 Class: Chronic Obesity 02/22/2015 Class: Chronic Asthma, moderate persistent, well-controlled 02/22/2015 Class: Chronic History of migraine headaches 07/10/2014 Class: Chronic Past Medical History: Diagnosis Date Abdominal pain 07/20/2019 Abnormal electrocardiography 01/19/2017 Annotation: Saw cardiology 2017 and was cleared, repeat 08/25/19 Normal sinus rhythm with sinus arrhythmia with short MS Anxiety 07/20/2019 Asthma Nausea 08/15/2019 Vomiting multiple times per week Past Surgical History: Procedure Laterality Date LUMBAR PUNCTURE WO INJECTION, THERAPEUTIC N/A 11/04/2019 WRIST SURGERY Family History Adopted: Yes Family history unknown: Yes Social History Tobacco Use Smoking status: Never Smoker Substance Use Topics Alcohol use: Never Frequency: Never Drug use: Never Social History Social History Narrative Adoptive mother : (Added by AYAD Conv) No secondhand smoke exposure : (Added by AYAD Paez) Review of Systems Review of Systems Constitutional: Negative for chills and fever. HENT: Negative for ear pain and sore throat. Eyes: Negative for pain and visual disturbance. Respiratory: Negative for cough and shortness of breath. Cardiovascular: Negative for chest pain and palpitations. Gastrointestinal: Positive for abdominal pain, blood in stool, nausea and vomiting. Genitourinary: Negative for dysuria and hematuria. Musculoskeletal: Negative for arthralgias and back pain. Skin: Negative for color change and rash. Neurological: Negative for seizures and syncope. All other systems reviewed and are negative. Physical Exam ED Triage Vitals [09/04/20 1644] Temp Pulse Resp BP SpO2 36.7 ??C (98.1 ??F) 92 18 116/88 95 % Temp src Heart Rate Source Patient Position BP Location FiO2 (%) Temporal -- -- -- -- Physical Exam Vitals signs and nursing note reviewed. Constitutional: General: She is not in acute distress. Appearance: She is well-developed. HENT: Head: Normocephalic and atraumatic. Eyes: Conjunctiva/sclera: Conjunctivae normal. Neck: Musculoskeletal: Neck supple. Cardiovascular: Rate and Rhythm: Normal rate and regular rhythm. Heart sounds: Normal heart sounds. No murmur. Pulmonary: Effort: Pulmonary effort is normal. No respiratory distress. Breath sounds: Normal breath sounds. Abdominal: General: Bowel sounds are normal. There is no distension. Palpations: Abdomen is soft. Tenderness: There is no abdominal tenderness. There is no guarding. Skin: General: Skin is warm and dry. Neurological: Mental Status: She is alert and oriented to person, place, and time. MDM 20 y.o. female w/ history as described above presenting to ED with 4 days of worsened abdominal pain, vomiting (x1 with streak of blood ) and drops of bright red blood after stooling. -Vitals: unremarkable -Exam remarkable for: Mild diffuse abdominal tenderness to palpation, not TTP at McBurney's point, Rovsing negative, heart and lungs normal on auscultation, no CVA tenderness, no rashes DDx: Gastritis, UTI, ovarian torsion Clinical picture not congruent with: Appendicitis, pyleonephritis Plan: CBC, BMP, glucose, urine hCG, UA, US abdomen, US pelvis/ovaries, IVF, antiemetics as needed, consult GI as needed Dispo: anticipate discharge ED Course as of Oct 05 2000 Time: 09/04 173 Comment: 20y F with hx migraine, chronic abdominal issues - has been seen by GI with chronic nausea, stomach pains, treated with rifaximin for SIBO, recently had breath test. Here with worsening nausea and vomiting (once with streak of blood), abdominal pain x4 days. Pain initially diffuse, now RLQ. Today and yesterday seeing bright red blood streaks on stool and drops of blood. No fevers, chills, cough, chest pain, dysuria, rash. No diarrrhea. No headaches. Sent to EU by PCP due to possible appendicitis. Denies sexual activity. By: Rosette Camara MD Time: 09/04 413 Comment: HCG neg. UA with 3+ blood, pt says she just ended menses. CBC normal without anemia or leukocytosis. Will discuss results and exam with GI. By: Rosette Camara MD Time: 09/04 2228 Comment: GI curbsided, recommend bentyl in ED and follow up with GI clinic in next 1-2 days. By: Mayco Ovalle MD Time: 09/04 2314 Comment: Teaching Resident Note: Assuming care from Dr. Ovalle. 20 F with chronic abd pain/N/V of unclear etiology known to peds GI p/w acute on chronic pain (RLQ today) and vomiting. Says she has not kept anything down but not clinically dry on exam or labs. Negative US abdomen and pelvis/ovaries. GI recs Bentyl and outpatient follow up tomorrow. By: Americo Rodriguez MD Attending notes: Reassessment after work up - patient feeling a bit better. Abdomen soft in RLQ, low concern for appendicitis. Appendix ULN size but no secondary signs and exam not consistent. Ovarian US normal. Plan for outpatient GI follow up. Return precautions reviewed. Family and patient in agreement with plan. Final diagnoses: Abdominal pain Non-intractable vomiting without nausea, unspecified vomiting type Mayco Ovalle MD Resident 10/05/201958 Mayco Ovalle MD Resident 10/05/202000 Rosette Camara MD 10/10/202145 Cosigned by Rosette Camara MD at 10/10/2020 9:46 PM ACCOUNTS SUPERVISOR UNTS SUPERVISOR UNTS SUPERVISOR UNTS SUPERVISOR Associated attestation - Rosette Camara MD - 10/10/2020 9:46 PM ACCOUNTS SUPERVISOR I have seen and examined the patient on 09/04/2020. I agree with the findings and plan of care as documented in the resident's note. * Rachel Thurman RN - 09/04/2020 4:38 PM CST Mom reports abdominal pain and vomiting x 4 days. Last emesis 1300; states throws up after she eatsand has seen blood. Endorses pain bilaterally under belly button; describes as sharp. Zofran at 0930. Denies fevers. Last BM this AM; seen blood in it. UNTS SUPERVISOR UNTS SUPERVISOR documented in this encounter Miscellaneous Notes * ED Pre-Arrival Note - Berny Moss MD - 09/04/2020 4:05 PM ACCOUNTS SUPERVISOR Pre-Arrival Note 20yo female with RLQ abdominal pain acutely with long history of chronic abdominal pain and migraines. Had breath hydrogen test a few days ago. Not acutely ill but decreased PO intake over the past few days. Follows with GI and neurology. Coming in for concern for appendicitis. Berny Moss MD UNTS SUPERVISOR documented in this encounter Plan of Treatment Not on file documented as of this encounter Procedures Procedure Name Priority Date/Time Associated Diagnosis Comments US PELVIS AND OVARIAN DOPPLER LIMITED (C) ED 09/04/2020 9:39 PM ACCOUNTS SUPERVISOR US ABDOMEN LIMITED ED 09/04/2020 9: 39 PM ACCOUNTS SUPERVISOR URINALYSIS, MICROSCOPIC ONLY STAT 09/04/2020 6:42 PM ACCOUNTS SUPERVISOR INFLUENZA A/B, RSV, AND COVID-19 PCR Routine 09/04/2020 6:25 PM ACCOUNTS SUPERVISOR N. GONORRHOEAE/C. TRACHOMATIS AMPLIFICATION STAT 09/04/2020 6:25 PM ACCOUNTS SUPERVISOR DIFFERENTIAL AUTO STAT 09/04/2020 6:2 5 PM ACCOUNTS SUPERVISOR URINALYSIS AND REFLEX TO MICROSCOPIC AND CULTURE STAT 09/04/2020 6:25 PM ACCOUNTS SUPERVISOR CBC WITH AUTO DIFFERENTIAL STAT 09/04/2020 6:25 PM ACCOUNTS SUPERVISOR HCG, URINE, QUALITATIVE STAT 09/04/2020 6:25 PM ACCOUNTS SUPERVISOR BASIC METABOLIC PANEL STAT 09/04/2020 6:25 PM ACCOUNTS SUPERVISOR documented in this encounter Results * US Pelvis and Ovarian Doppler Limited (09/04/2020 9:39 PM ACCOUNTS SUPERVISOR) Anatomical Region Laterality Modality Pelvis N/A Ultrasound 09/04/2020 10:4 4 PM ACCOUNTS SUPERVISOR Impressions 09/05/2020 7:36 AM ACCOUNTS SUPERVISOR Normal. Dictated by: Larisa Morin M.D. The radiology attending physician has personally reviewed this study, and had reviewed and/or edited this written report and agrees with it. Electronically signed by: Larisa Dolan Narrative 09/05/2020 7:36 AM ACCOUNTS SUPERVISOR EXAMINATION: ??US PELVIS AND OVARIAN DOPPLER LIMITED (C) HISTORY: ??Lower abdominal pain, last menstrual period finished yesterday. COMPARISON: ??09/13/2019. FINDINGS: The uterus is adult female in configuration and size. ??The endometrial stripe measures 2 mm. ??The left ovary measures 3.0 x 1.3 x 2.1 cm for a volume of 4.3 cc. ??The right ovary measures 2.2 x 1.5 x 1.7 cm for a volume of 1.7 cc, which is likely underestimated due to limitations in measurement due to position of the right ovary and incomplete distention of the bladder. ??There is symmetric flow. There are no dominant cysts or masses. Small follicles are noted bilaterally. Color Doppler evaluation with spectral waveform analysis was performed and shows normal symmetric arterial and venous flow. Procedure Note Larisa Dolan MD - 09/05/2020 EXAMINATION: US PELVIS AND OVARIAN DOPPLER LIMITED (C) HISTORY: Lower abdominal pain, last menstrual period finished yesterday. COMPARISON: 09/13/2019. FINDINGS: The uterus is adult female in configuration and size. The endometrial stripe measures 2 mm. The left ovary measures 3.0 x 1.3 x 2.1 cm for a volume of 4.3 cc. The right ovary measures 2.2 x 1.5 x 1.7 cm for a volume of 1.7 cc, which is likely underestimated due to limitations in measurement due to position of the right ovary and incomplete distention of the bladder. There is symmetric flow. There are no dominant cysts or masses. Small follicles are noted bilaterally. Color Doppler evaluation with spectral waveform analysis was performed and shows normal symmetric arterial and venous flow. IMPRESSION: Normal. Dictated by: Larisa Morin M.D. The radiology attending physician has personally reviewed this study, and had reviewed and/or edited this written report and agrees with it. Electronically signed by: Larisa Dolan us Mayco Ovalle MD IMG US PROCEDURES Fi nal Result * US Abdomen Limited (Appendix only) (09/04/2020 9:39 PM ACCOUNTS SUPERVISOR) Anatomical Region Laterality Modality Abdomen N/A Ultrasound 09/04/2020 10:0 2 PM ACCOUNTS SUPERVISOR Impressions 09/05/2020 7:26 AM ACCOUNTS SUPERVISOR Appendix measures slightly above upper limits of normal (6 mm), though there are no additional findings to suggest acute appendicitis. Dictated by: Larisa Morin M.D. The radiology attending physician has personally reviewed this study, and had reviewed and/or edited this written report and agrees with it. Electronically signed by: Larisa Dolan Narrative 09/05/2020 7:26 AM ACCOUNTS SUPERVISOR EXAMINATION: US ABDOMEN LIMITED HISTORY: Abdominal pain and vomiting. COMPARISON: CT 07/21/2019. FINDINGS: Sonographic evaluation of the right lower quadrant was performed with graded compression technique. ?? Appendix: The appendix was identified in the right upper quadrant near the right kidney. Appendix size: 0.68 mm Appendicolith: No appendicolith is identified. Periappendiceal fat: Normal Vascularity: Normal Abscess: None Fluid: No free fluid. No periappendiceal fluid. Mesenteric lymph nodes: No enlarged (>7 mm) lymph nodes. Adjacent bowel loops: Peristalsing and otherwise normal appearing. Additional abnormalities: None. Procedure Note Larisa Dolan MD - 09/05/2020 EXAMINATION: US ABDOMEN LIMITED HISTORY: Abdominal pain and vomiting. COMPARISON: CT 07/21/2019. FINDINGS: Sonographic evaluation of the right lower quadrant was performed with graded compression technique. Appendix: The appendix was identified in the right upper quadrant near the right kidney. Appendix size: 0.68 mm Appendicolith: No appendicolith is identified. Periappendiceal fat: Normal Vascularity: Normal Abscess: None Fluid: No free fluid. No periappendiceal fluid. Mesenteric lymph nodes: No enlarged (>7 mm) lymph nodes. Adjacent bowel loops: Peristalsing and otherwise normal appearing. Additional abnormalities: None. IMPRESSION: Appendix measures slightly above upper limits of normal (6 mm), though there are no additional findings to suggest acute appendicitis. Dictated by: Larisa Morin M.D. The radiology attending physician has personally reviewed this study, and had reviewed and/or edited this written report and agrees with it. Electronically signed by: Larisa Dolan Mayco Ovalle MD IMG US PROCEDURES Fi nal Result * Urinalysis, microscopic only (09/04/2020 6:42 PM ACCOUNTS SUPERVISOR) WBC, ur 0-5 0 - 5 /HPF [facility] RBC, ur 0-2 0 - 2 /HPF [facility] Epithelial cells, squamous, ur 1-5 0 - 5 /HPF [facility] Culture Reflex Comment Reflex conditions for urine culture (WBC >10) not met. [facility] Urine 09/04/2020 6:42 PM ACCOUNTS SUPERVISOR 09/04/2020 6:44 PM ACCOUNTS SUPERVISOR Mayco Ovalle MD LAB URINE ORDERABLES Final Result [facility] Department [place] [address] * Differential, auto (09/04/2020 6:25 PM ACCOUNTS SUPERVISOR) Neutrophil abs 4.0 1.7 - 6.5 K/cumm [facility] Imm gran abs 0.0 0.0 - 0.1 K/cumm [facility] Lymphocyte abs 2.5 0.8 - 3.3 K/cumm [facility] Monocyte abs 0.6 0.2 - 0.8 K/cumm [facility] Eosinophil abs 0.4 0.0 - 0.5 K/cumm [facility] Basophil abs 0.1 0.0 - 0.1 K/cumm [facility] Neutrophil pct 52.8 % [facility] Comment: Interpretive Data Percent cell count reference ranges are not reported, since discordance with absolute values may lead to misinterpretation of CBC data. Current Interpretive Data was last revised on 2017. Imm gran pct 0.4 % [facility] Comment: Interpretive Data Percent cell count reference ranges are not reported, since discordance with absolute values may lead to misinterpretation of CBC data. Current Interpretive Data was last revised on 2017. Lymphocyte pct 33.2 % [facility] Comment: Interpretive Data Percent cell count reference ranges are not reported, since discordance with absolute values may lead to misinterpretation of CBC data. Current Interpretive Data was last revised on 2017. Monocyte pct 7.8 % [facility] Comment: Interpretive Data Percent cell count reference ranges are not reported, since discordance with absolute values may lead to misinterpretation of CBC data. Current Interpretive Data was last revised on 2017. Eosinophil pct 4.9 % [facility] Comment: Interpretive Data Percent cell count reference ranges are not reported, since discordance with absolute values may lead to misinterpretation of CBC data. Current Interpretive Data was last revised on 2017. Basophil pct 0.9 % [facility] Comment: Interpretive Data Percent cell count reference ranges are not reported, since discordance with absolute values may lead to misinterpretation of CBC data. Current Interpretive Data was last revised on 2017. Blood specimen (specimen) 09/04/2020 6:25 PM ACCOUNTS SUPERVISOR 09/04/2020 6:31 PM ACCOUNTS SUPERVISOR Mayco Ovalle MD LAB BLOOD ORDERABLES Final Result [facility] [place] [address] * Basic metabolic panel (09/04/2020 6:25 PM ACCOUNTS SUPERVISOR) Sodium 135 135 - 145 mmol/L [facility] Potassium, pl 4.1 3.3 - 4.9 mmol/L [facility] Comment:Hemolyzed; results m ay be falsely elevated. Chloride 104 97 - 110 mmol/L [facility] CO2 25 22 - 32 mmol/L [facility] Anion gap 6 2 - 15 mmol/L [facility] BUN 11 8 - 25 mg/dL [facility] Creatinine 0.91 0.40 - 1.00 mg/dL [facility] Glucose 79 70 - 199 mg/dL [facility] Comment: Interpretive Data Fasting glucose >/= [...] 2017. Calcium 9.2 8.5 - 10.3 mg/dL [facility] Blood specimen (specimen) 09/04/2020 6:25 PM ACCOUNTS SUPERVISOR 09/04/2020 6:31 PM ACCOUNTS SUPERVISOR Mayco Ovalle MD LAB BLOOD ORDERABLES Final Result [facility] [place] [address] * (ABNORMAL) CBC with auto differential (09/04/2020 6:25 PM ACCOUNTS SUPERVISOR) WBC 7.6 3.8 - 9.9 K/cumm [facility] Hgb 14.1 11.9 - 15.5 g/dL [facility] Hct 42.4 35.6 - 45.5 % [facility] Plt 409(H) 150 - 400 K/cumm [facility] MPV 9.6 9.1 - 12.3 fL [facility] RBC 4.84 3.90 - 5.20 M/cumm [facility] MCV 87.6 81.3 - 96.4 fL [facility] MCH 29.1 27.1 - 33.3 pg [facility] MCHC 33.3 32.3 - 35.7 g/dL [facility] RDW CV 13.2 11.1 - 14.9 % [facility] RDW SD 42.2 35.7 - 48.1 fL [facility] NRBC abs 0.00 0.00 - 0.01 K/cumm [facility] Blood specimen (specimen) 09/04/2020 6:25 PM ACCOUNTS SUPERVISOR 09/04/2020 6:31 PM ACCOUNTS SUPERVISOR us Mayco Ovalle MD LAB BLOOD ORDERABLES Final Result [facility] Department [place] [address] * N. gonorrhoeae/C. trachomatis Amplification Urine (09/04/2020 6:25 PM ACCOUNTS SUPERVISOR) C. trachomatis Not Detected Not Detected [facility] Comment:Testing performed by : [facility], [address] [place]., [address] N. gonorrhoeae Not Detected Not Detected [facility] Comment: Interpretive Data Testing performed by the [facility]. This assay detects Chlamydia trachomatis and Neisseria gonorrhoeae by nucleic acid amplification testing (NAAT). This test is approved by the [place] Food and Drug Administration and the performance characteristics have been verified by the laboratory. The performance characteristics of this test have not been evaluated in individuals less than 14 years of age. Current Interpretive Data was last revised on 2018. Testing performed by: [facility], [address] [facility], [place]., [address] Urine (None) 09/04/2020 6:25 PM ACCOUNTS SUPERVISOR 09/04/2020 8:47 PM ACCOUNTS SUPERVISOR Mayco Ovalle MD LAB MICROBIOLOGY - G ENERAL ORDERABLES Final Result Performing Organization Address City/[facility]/ZIP Co de Phone Number [facility] [place] [address] * hCG, urine, qualitative (09/04/2020 6:25 PM ACCOUNTS SUPERVISOR) HCG, ur Negative Negative [facility] Urine 09/04/2020 6:25 PM ACCOUNTS SUPERVISOR 09/04/2020 6:31 PM ACCOUNTS SUPERVISOR Mayco Ovalle MD LAB URINE ORDERABLES Final Result Performing Organization Address [facility]/[place] [place] [address] * (ABNORMAL) Urinalysis reflex to microscopic and culture Urine (09/04/2020 6:25 PM ACCOUNTS SUPERVISOR) Color, ur Yellow Yellow [facility] Clarity, ur Clear Clear [facility] Specific gravity, ur 1.020 1.010 - 1.025 [facility] pH, urine 5.5 [facility] Protein, ur ql Trace Negative [facility] Glucose, ur ql Negative Negative [facility] Ketones, ur 1+(A) Negative [facility] Bilirubin, ur Negative Negative [facility] Blood, ur 3+(A) Negative [facility] Urobilinogen, ur 0.2 <2.0 mg/dL [facility] Nitrite, ur Negative Negative [facility] Leukocyte esterase, ur Negative Negative [facility] UA reflex comment Reflex to microscopic UA will be performed. [facility] Urine 09/04/2020 6:25 PM ACCOUNTS SUPERVISOR 09/04/2020 6:32 PM ACCOUNTS SUPERVISOR Narrative [facility] - 09/04/2020 6:42 PM ACCOUNTS SUPERVISOR ?? Urine pH is affected by diet, medications, systemic acid-base disturbances, and renal tubular function. ??pH may affect urinary stone formation. ??For example, urine pH below 6.0 may help reduce the tendency for calcium phosphate stones and pH greater than 6.0 may reduce the tendency for uric acid stone formation. Source: [facility] [employer]. Last revised 09-10-2017 Mayco Ovalle MD LAB MICROBIOLOGY - G ENERAL ORDERABLES Final Result [facility] Department [place] [address] * Influenza A/B, RSV, and COVID-19 PCR Nasopharyngeal (09/04/2020 6:25 PM ACCOUNTS SUPERVISOR) COVID-19 RNA Negative Negative [facility] Comment: Interpretive data: This test is performed using the Poliglota Xpert Xpress assay. This is a real-time RT-PCR test intended for the qualitative detection of nucleic acid from the SARS-CoV-2. This assay has been reviewed by the FDA for Emergency Use Authorization (EUA). The performance characteristics have been verified by the performing laboratory. Results must be considered in the clinical context and a negative result does not rule out infection. Interpretive data last revised 2020. Influenza A RNA Negative Negative [facility] Influenza B RNA Negative Negative [facility] RSV RNA Negative Negative [facility] Comment: Interpretive data: This test is performed using the Poliglota Xpert Assay. This is a multiplex, real- time reverse transcriptase PCR assay that detects influenza A, influenza B, and respiratory syncytial virus RNA. This assay has been cleared by the US Food and Drug Administration, and its performance characteristics have been verified by the performing laboratory. ?? Interpretive data last revised 2020. First COVID-19 test? Yes [facility] Employeed in healthcare? No [facility] status? Unknown [facility] Group care resident? No [facility] Hospitalized? No [facility] Is patient in ICU? No [facility] Symptomatic as defined by CDC? Yes [facility] Nasopharyngeal 09/04/2020 6: 25 PM ACCOUNTS SUPERVISOR 09/04/2020 6:31 PM ACCOUNTS SUPERVISOR Narrative [facility] - 09/04/2020 7:10 PM ACCOUNTS SUPERVISOR Date of symptom onset->09/01/20 Known exposure to confirmed or suspected COVID-19 case?->No Mayco Ovalle MD LAB MICROBIOLOGY - G ENERAL ORDERABLES Final Result [facility] Department [place] [address] documented in this encounter Visit Diagnoses Diagnosis Abdominal pain- Primary Abdominal pain, unspecified site Non-intractable vomiting without nausea, unspecified vomiting type documented in this encounter Administered Medications Inactive Administered Medications - up to 3 most recent administrations Medication Order MAR Action Action Date Dose Rate Site dicyclomine (BENTYL) capsule 20 mg 20 mg, oral, Once, On Thu09/04/20 at 2348, For 1 dose Given 09/05/2020 12:13 AM ACCOUNTS SUPERVISOR 20 mg ibuprofen (ADVIL,MOTRIN) tablet/capsule 600 mg 600 mg, oral, Once, On Thu09/04/20 at 2348, For 1 dose Given 09/05/2020 12:13 AM ACCOUNTS SUPERVISOR 600 mg lidocaine 1% buffered 1 % (0.5 mL) injection - ADS Override Pull Starting on Thu09/04/20 at 1756, For 1 dose, Created by cabinet override Given 09/04/2020 6:44 PM ACCOUNTS SUPERVISOR 0.5 mL ondansetron (ZOFRAN) injection 4 mg 4 mg, intravenous, Administer over 15 Minutes, Once, On Thu09/04/20 at 1747, For 1 dose, Maximum dose = 4 mg Given 09/04/2020 6:40 PM ACCOUNTS SUPERVISOR 4 mg sodium chloride 0.9% bolus 1,000 mL 1,000 mL, intravenous, Once, On Thu09/04/20 at 1855, For 1 dose New Bag 09/04/2020 6:44 PM ACCOUNTS SUPERVISOR 1,000 mL documented in this encounter Discontinued Medications Medication Sig Discontinue Reason Start Date End Da te metoclopramide (REGLAN) 10 mg tablet Take 1 tablet (10 mg total) by mouth every 6 (six) hours Reorder 09/05/2020 09/05/2020 documented as of this encounter Active and Recently Administered Medications Times are shown in ACCOUNTS SUPERVISOR. Scheduled Medication Order 09/03/2020 09/04/2020 09/05/2020 dicyclomine (BENTYL) capsule 20 mg (COMPLETED) 20 mg, oral, Once, On Thu09/04/20 at 2348, For 1 dose 0013 (Given - Provid er: Lulu Simmons, GLENDA) ibuprofen (ADVIL,MOTRIN) tablet/capsule 600 mg (COMPLETED) 600 mg, oral, Once, On Thu09/04/20 at 2348, For 1 dose 0013 (Given - Provid er: Lulu Simmons, GLENDA) ondansetron (ZOFRAN) injection 4 mg (COMPLETED) 4 mg, intravenous, Administer over 15 Minutes, Once, On Thu09/04/20 at 1747, For 1 dose, Maximum dose = 4 mg 1840 (Given - Provider: Nelly Nye RN) sodium chloride 0.9% bolus 1,000 mL (COMPLETED) 1,000 mL, intravenous, Once, On Thu09/04/20 at 1855, For 1 dose 1844 (New Bag - Provider: Nelly Nye, GLENDA)2004 (Stopped - Provider: Patience Antoine RN) No Frequency Medication Order 09/03/2020 09/04/2020 09/05/2020 lidocaine 1% buffered 1 % (0.5 mL) injection - ADS Override Pull (COMPLETED) Starting on Thu09/04/20 at 1756, For 1 dose, Created by cabinet override 1844 (Given - Provider: Rio Nye, GLENDA) documented in this encounter Orders Nursing Count Last Ordered Date First Orde red Date NURSING COMMUNICATION 1 09/04/2020 IV Count Last Ordered Date First Orde red Date INSERT PERIPHERAL IV 2 09/04/2020 SALINE LOCK IV 1 09/04/2020 documented in this encounter Additional Health Concerns Infection Onset Date Last Indicated Resolved Time COVID: Suspected 09/04/2020 09/04/2020 09/04/2020 7:11 PM ACCOUNTS SUPERVISOR Respiratory Infection (JASMINE), contact + droplet Comment:Automatically added due to negative COVID-19 result. 09/04/2020 09/04/202009/1809/18/2020 3:0 7 AM ACCOUNTS SUPERVISOR documented as of this encounter Care Teams Head Banquet Waitress Relationship Specialty Start Date End Date Johnna Tinajero MD [address] [address] PCP - General Pediatrics 07/19/19 01/26/23 Johnna Tinajero MD [address] [address] 07/19/19 documented as of this encounter
--- OUTSIDE RECORDS SUMMARY | 2024-08-28 02:13 | XMS_ITS | Encounter Summary ---
Author Organization [facility] Address [address] [place] [address] Phone Care Team Providers Care Shift Superintendent Caustic Cresylate Name Role Phone Johnna Tinajero MD Primary Care Provider + Johnna Tinajero MD Unavailable [phone] Encounter Details Date Type Department Care Team (Late st Contact Info) Description 10/30/2020 Telephone [facility] Pediatric Gastroenterology [facility] 2nd [place] [address] [place] [address] Brandee Solorzano, RD [address] [facility] [address] [place], [place] [id number] Social History Tobacco Use Types Packs/Day Years [...] on file Legal Sex 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 ORIENTATION & MOBILITY SPECIALIST Gender Identity Not on file Sexual Orientation Not on file documented as of this encounter Miscellaneous Notes * Telephone Encounter - Brandee Solorzano RD - 10/30/2020 8:37 AM CST Spoke with Nina and her mother to follow up on diet. She reports the past month has been rough. She came home from college due to symptoms. She was admitted last week for worsening vomiting and started on neomycin and rifaximin and recommended low FODMAP diet. Nina has following low FODMAP diet since discharge. She feels better, vomiting less, and able to eat more, but is still having trouble with pain. Bloating is less, but still present. No diarrhea. She is eating 2-3x/day. At school, friends are a reminder to eat, so she's eating less frequently at home. 24 Hour Recall (yesterday): Cheerios Grapes Salad She had some pain and some bloating after eating, but not as extreme. Recommended continue low FODMAP diet for 2 weeks. If symptoms improved, can reintroduce FODMAPs slowly. I will send resources for following low FODMAP diet. NTATION & MOBILITY SPECIALIST NTATION & MOBILITY SPECIALIST NTATION & MOBILITY SPECIALIST documented in this encounter Plan of Treatment Not on file documented as of this encounter Visit Diagnoses Not on filedocumented in this encounter Care Teams Shift Superintendent Caustic Cresylate Relationship Specialty Start Date End Date Johnna Tinajero MD [address] [address] PCP - General Pediatrics 07/19/19 01/26/23 Johnna Tinajero MD [address] [address] 07/19/19 documented as of this encounter
--- OUTSIDE RECORDS SUMMARY | 2024-08-28 02:13 | XMS_ITS | Encounter Summary ---
Author Organization [facility] Address [address] [place] [address] [address] [place] [address] Phone Care Team Providers Care Commercial Roofer Name Role Phone Johnna Tinajero MD Primary Care Provider + Johnna Tinajero MD Unavailable [phone] Reason for Visit * Reason Comments Abdominal Pain Encounter Details Date Type Department Care Team (Late st Contact Info) Description 09/04/2020 3:30 PM SPECIAL EDUCATION PROFESSOR Office Visit [facility] [address] [facility] [address] [place] [address] Johnna Tinajero MD [address] [place] [id number] Chronic abdominal pain (Primary Dx); Abdominal pain, acute, right lower quadrant; Recurrent vomiting; Anxiety; Chronic nausea; History of migraine headaches Social History Tobacco Use Types Packs/Day Years [...] on file Legal Sex 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 SPECIAL EDUCATION PROFESSOR Gender Identity Not on file Sexual Orientation Not on file documented as of this encounter Last Filed Vital Signs Vital Sign Reading Time Taken Comments Blood Pressure 128/88 09/04/2020 3:37 PM SPECIAL EDUCATION PROFESSOR Pulse - - Temperature 36.1 ??C (97 ??F) 09/04/2020 3:37 PM SPECIAL EDUCATION PROFESSOR Respiratory Rate - - Oxygen Saturation - - Inhaled Oxygen Concentration - - Weight 94.3 kg (207 lb 14.4 oz) 09/04/2020 3:37 PM SPECIAL EDUCATION PROFESSOR Height - - Body Mass Index 36.83 08/21/2020 3:17 PM SPECIAL EDUCATION PROFESSOR Body Mass Index Percentile 97.99% 09/04/2020 3:3 7 PM SPECIAL EDUCATION PROFESSOR Growth Chart: [facility] (Girls, 2- 20 Years) documented in this encounter Progress Notes * Johnna Tinajero MD - 09/04/2020 3:30 PM CST 09/04/20 HISTORY OF PRESENT ILLNESS (with pertinent ROS) Nina Coyne is a 20 y.o. female who presents with mother who served as an independent historian. Chief Complaint Patient presents with ??? Abdominal Pain HPI: See phone note from today. Recent Gi and neuro visits reviewed, hydrogen breath test (glucose?) on 08/29 with results pending. Since then has had increase in abdominal pain, nausea and vomiting, withcharacter of pain different from usual. Periumbilical but also RLQ pain, stabbing quality and hurtsto move around. Unable to keep food and fluid down, vomits usually 20 minutes after eating or drinking something. Is urinating less than normal and urine looking darker than usual. Having a BM every other day, small amount of blood this morning. LMP ended yesterday. Is taking ortho tri cyclen and periods are regular, lasting about 5 days. Not generally having pain with them Supposed to return to school this coming weekend. Did finish classwork last semester and turned outok. Sleep has been ok; trouble falling asleep and taking 50 mg benadryl before bed. Vomited once duringthe night. Headaches have been better. Saw neurology yesterday, no med change; did not restart the topiramate;to have EEG on 1.7. Before the breath hydrogen test was feeling rough but not this bad. At that point was vomiting twice a week. Had that at school. Has been home since a week before ; symptoms were the same. . Review of Symptoms: All review of systems are negative except for as documented PHYSICAL EXAM Vitals: 09/04/20 1537 BP: 128/88 Temp: 36.1 ??C (97 ??F) Weight: 94.3 kg (207 lb 14.4 oz) Constitutional: Pt appears well-developed and well-nourished, active, NAD and non-toxic appearance.Mildly dry appearing, not tachycardic or hypotensive, skin well perfused HEENT: Nose: . no abnormalities Mouth/Throat: Mucous membranes are moist. Pharynx/Tonsills: mildly inflamed posteriorly diffusely Neck: Neck supple without rigidity. No lymphadenopathy Cardiovascular: Normal rate and regular rhythm, without murmur Pulmonary/Chest: normal work of breathing and good air movement Abdominal: Bowel sounds are quiet, mildly distended with diffuse tenderness, more in the RLQ, no rebound and no guarding. No hepatosplenomegaly Neurological: alert. Skin: Skin is warm. Capillary refill brisk. No rash noted. ASSESSMENT/PLAN: 1. Abdominal pain, acute, right lower quadrant I told Nina and mom that I can't rule out appendicitis and this needs to be ruled out now; I spokewith Dr. Moss in the ER at [facility] and she will go there now for further evaluation; discussed likely ultrasound and/or CT, IVF and blood tests, surgery if has appendicitis which is life threatening. However, her symptoms are likely related to her chronic condition, likely related to recent high glucose (?) load and perhaps secondary to small bowel bacterial overgrowth. - POCT URINALYSIS NON AUTO negative - POCT URINE CULTURE 2. Recurrent vomiting Urine concentrated; not responding well to zofran, likely IVF at ER and po fluid challenge if does not have appendicitis; may need admission if fails fluid challenge - POCT URINALYSIS NON AUTO normal except trace blood and SG 1025 3. Chronic abdominal pain As above, unclear etiology 4. Anxiety Stable on Lexapro 5. Chronic nausea As above 6. History of migraine headaches Improved on current OTC supplement; I don't think this is migraine equivatlent Parent/patient instructed to call with concerns, or new symptoms/problems develop. Johnna Tinajero MD Total time spent: 62 minutes minutes Reviewed specialist records, Gi and neurology and most recent procedure, breath hydrogen test (results not back yet but reviewed test procedure and methodology:Hydrogen Breath Tests in Gastrointestinal Diseases Jose Juan Torrezrresponding author and Ragini Jha ), prior extensive laboratory evaluation, prior endoscopy results, face to face time with patient and mother, charting, speaking to ED physician Dr. Moss regarding history and diagnosis, referral Due to the public [facility] emergency, extra time was required to conduct a pre- visit phone call to screen the patient for symptoms, provide instructions on social distancing during the visit, check patients for symptoms upon arrival, apply and remove personal protective equipment, and additional cleaning of the examination/procedure/imaging rooms, equipment and supplies. IAL EDUCATION PROFESSOR documented in this encounter Plan of Treatment Not on file documented as of this encounter Procedures Procedure Name Priority Date/Time Associated Diagnosis Comments POCT URINALYSIS NON AUTO Routine 09/04/2020 4:06 PM SPECIAL EDUCATION PROFESSOR Abdominal pain, acute, right lower quadrant Recurrent vomiting POCT URINE CULTURE Routine 09/04/2020 3: 06 PM SPECIAL EDUCATION PROFESSOR Abdominal pain, acute, right lower quadrant documented in this encounter Results * (ABNORMAL) POCT URINALYSIS NON AUTO (09/04/2020 4:06 PM SPECIAL EDUCATION PROFESSOR) Color, Urine, POC Yellow Clarity, ur, POC Clear Clear Glucose, ur, POC Negative Negative mg/dL Bilirubin, ur, POC Negative Negative, Small, Moderate, Large Ketones, ur, POC Negative Negative Specific [place], POC 1.025 1.005 - 1.030 Blood, ur, POC 1+(A) Negative pH, ur, POC 5.0 5.0 - 8.0 Protein, ur, POC Negative Negative Urobilinogen, Urine, POC Comment:normal Leukocytes, ur, POC Negative Negative Nitrite, ur, POC Negative Negative Appearance, fld Clear Clear Urine, clean voided 09/04/2020 4:06 PM SPECIAL EDUCATION PROFESSOR Johnna Tinajero MD POINT OF CARE TEST ORDER KATHERINE Final Result * POCT URINE CULTURE (09/04/2020 3:06 PM SPECIAL EDUCATION PROFESSOR) Urine Culture, POC NEGATIVE Culture, POC NEGATIVE Urine, clean voided 09/04/2020 3:06 PM SPECIAL EDUCATION PROFESSOR Johnna Tinajero MD POINT OF CARE TEST ORDER KATHERINE Final Result documented in this encounter Visit Diagnoses Diagnosis Chronic abdominal pain- Primary Abdominal pain, unspecified site Abdominal pain, acute, right lower quadrant Recurrent vomiting Anxiety Anxiety state, unspecified Chronic nausea Nausea alone History of migraine headaches documented in this encounter Care Teams Commercial Roofer Relationship Specialty Start Date End Date Johnna Tinajero MD [address] [address] PCP - General Pediatrics 07/19/19 01/26/23 Johnna Tinajero MD [address] [address] 07/19/19 documented as of this encounter
--- OUTSIDE RECORDS SUMMARY | 2024-08-28 02:13 | XMS_ITS | Encounter Summary ---
Author Organization [facility] Address [address] [place] [address] Care Team Providers Care Winery Worker Name Role Phone Johnna Tinajero MD Primary Care Provider + Johnna Tinajero MD Unavailable Reason for Referral * Neurology (Routine) - Closed Specialty Diagnoses / Procedures Referred By Contac t Referred To Contact Neuro Spec Qual Child Neurology Diagnoses Spells of decreased attentiveness Procedures EEG Nehal Riggs DO [address] [place] [id number] Phone: tel: fax: Referral ID Status Reason Start Date Expiration Date Visits Re quested Visits Authorized [id number] Closed 09/03/2020 10/03/2021 1 1 Y LEVEL SOFTWARE DEVELOPER Reason for Visit * Neurology (Routine) - Closed Specialty Diagnoses / Procedures Referred By Contac t Referred To Contact Neuro Spec Qual Child Neurology Diagnoses Spells of decreased attentiveness Procedures EEG Nehal Riggs DO [address] [place] [id number] Phone: tel: fax: Referral ID Status Reason Start Date Expiration Date Visits Re quested Visits Authorized [id number] Closed 09/03/2020 10/03/2021 1 1 Encounter Details Date Type Department Care Team (Latest Contact Info) Description 09/06/2020 1:20 PM ENTRY LEVEL SOFTWARE DEVELOPER - 09/06/2020 11:59 PM ENTRY LEVEL SOFTWARE DEVELOPER Hospital Encounter [facility] [place] [address] Nehal Riggs, DO [address] [place] [address] Spells of decreased attentiveness Discharge Disposition: Discharge to home or self [...] on file Legal Sex 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 ENTRY LEVEL SOFTWARE DEVELOPER Gender Identity Not on file Sexual [...] 1 tablet by mouth daily 0 08/17/2019 rifAXIMin (XIFAXAN) 550 mg tabletIndications:Sm all intestinal bacterial overgrowth Take 1 tablet (550 mg total) by mouth 3 (three) times a day for 14 days 42 tablet 09/05/2020 dicyclomine (BENTYL) 20 mg tablet Take [...] Procedure Name Priority Date/Time Associated Diagnosis Comments EEG Routine 09/06/2020 2:53 PM ENTRY LEVEL SOFTWARE DEVELOPER Spells of decreased attentiveness documented in this encounter Results * EEG (09/06/2020 2:53 PM ENTRY LEVEL SOFTWARE DEVELOPER) Anatomical Region Laterality Modality EEG Narrative 09/06/2020 3:24 PM ENTRY LEVEL SOFTWARE DEVELOPER Routine EEG Report Patient Name: Nina Coyne [facility] Medical Record Number (MRN): [id number] [facility] Record: [id number] Date of (): 2000 EEG Date: 09/06/2020 Location: [facility] EEG Ordering Provider: Nehal Riggs DO CC: Johnna Tinajero History (from digital imaging technician sheet): Nina is a 20 y.o. woman undergoing EEG for evaluation of spells. Medications: Nina has a current medication list which includes the following prescription(s): albuterol hfa, cetirizine, dicyclomine, escitalopram, fluticasone furoate-vilanterol, metoclopramide, norgestimate-ethinyl estradiol, ondansetron, ondansetron odt, prochlorperazine, and rifaximin. EEG technical description: A routine EEG with scalp electrodes was performed using the [employer] monitoring system to record EEG data digitally. ??The standard 10-20 electrode placement system was used. ??A variety of referential and bipolar montages were used to analyze the data. ??All voltages reported were measured peak to peak in a longitudinal bipolar montage unless indicated otherwise. The study ran from 1418 to 1501 on 09/06/2020. ?? EEG recording description: The background is symmetric and continuous and includes well formed posterior dominant frequencies of 10 Hz. ??The awake background otherwise consists of low and very low amplitude mixed frequencies. ?? Hyperventilation was performed with good effort and did not result in much change to the background. ??Photic stimulation resulted in symmetric driving including in harmonic frequencies. ??Sleep includes vertex waves, sleep spindles and K complexes. The EKG shows a regular rate and rhythm. Interpretation: This awake and asleep EEG is normal. Tete Downs MD Attending in Pediatric Epilepsy Nehal Riggs DO NEUROLOGY ORDERABLES Neris l Result documented in this encounter Visit Diagnoses Diagnosis Spells of decreased attentiveness documented in this encounter Additional Health Concerns Infection Onset Date Last Indicated Resolved Time Respiratory Infection (JASMINE), contact + droplet Comment:Automatically added due to negative COVID-19 result. 09/04/2020 09/04/2020 09/18/2020 3:0 7 AM ENTRY LEVEL SOFTWARE DEVELOPER documented as of this encounter Care Teams Winery Worker Relationship Specialty Start Date End Date Johnna Tinajero MD [address] [address] PCP - General Pediatrics 07/19/19 01/26/23 Johnna Tinajero MD [address] [address] 07/19/19 documented as of this encounter
--- OUTSIDE RECORDS SUMMARY | 2024-08-28 02:13 | XMS_ITS | Encounter Summary ---
Author Organization [facility] Healthcare Address [address] [place] [address] Care Team Providers Care Advertising Consultant Name Role Phone Johnna Tinajero MD Primary Care Provider + Johnna Tinajero MD Unavailable [phone] Encounter Details Date Type Department Care Team (Late st Contact Info) Description 08/29/2020 7:55 AM PROCESSOR INSPECTOR - 08/29/2020 11:36 AM PROCESSOR INSPECTOR Hospital Encounter [facility] Ambulatory [place] [address] Macy Najera MD 1 [facility] [address] [place] [address] Discharge Disposition: Discharge to home or self [...] on file Legal Sex 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 PROCESSOR INSPECTOR Gender Identity Not on file Sexual Orientation Not on file documented as of this encounter Last Filed Vital Signs Vital Sign Reading Time Taken Comments Blood Pressure 130/90 08/29/2020 8:05 AM PROCESSOR INSPECTOR Pulse 91 08/29/2020 8:05 AM PROCESSOR INSPECTOR Temperature 36 ??C (96.8 ??F) 08/29/2020 8:05 AM PROCESSOR INSPECTOR Respiratory Rate 20 08/29/2020 8:05 AM PROCESSOR INSPECTOR Oxygen Saturation - - Inhaled Oxygen Concentration - - Weight 95.5 kg (210 lb 8.6 oz) 08/29/2020 8:05 A M PROCESSOR INSPECTOR Height - - Body Mass Index 37.3 08/21/2020 3:17 PM PROCESSOR INSPECTOR Body Mass Index Percentile 98.18% 08/29/2020 8:0 5 AM PROCESSOR INSPECTOR Growth Chart: [facility] (Girls, 2- 20 Years) documented in this encounter Discharge Diagnoses Diagnosis Vomiting without nausea - VOMITING WITHOUT NAUSEA Unspecified abdominal pain - UNSPECIFIED ABDOMINAL PAIN documented in this encounter Medications at Time [...] 1 puff daily 60 each 09/02/2019 3 ondansetron (ZOFRAN) 4 mg tablet Take 1 [...] Procedure Name Priority Date/Time Associated Diagnosis Comments BREATH TEST/HYDROGEN 08/29/2020 8:02 AM PROCESSOR INSPECTOR Vomiting without nausea, intractability of vomiting not specified, unspecified vomiting type Abdominal pain documented in this encounter Visit Diagnoses Diagnosis Abdominal pain Abdominal pain, unspecified site Vomiting without nausea documented in this encounter Admitting Diagnoses Diagnosis Abdominal pain Abdominal pain, unspecified site Vomiting without nausea documented in this encounter Care Teams Advertising Consultant Relationship Specialty Start Date End Date Johnna Tinajero MD [address] [address] PCP - General Pediatrics 07/19/19 01/26/23 Johnna Tinajero MD [address] [address] 07/19/19 documented as of this encounter
--- OUTSIDE RECORDS SUMMARY | 2024-08-28 02:13 | XMS_ITS | Encounter Summary ---
Author Organization [facility] Address [address] [place] [address] Phone Care Team Providers Care Spa Director Name Role Phone Johnna Tinajero MD Primary Care Provider + Johnna Tinajero MD Unavailable [phone] Encounter Details Date Type Department Care Team (Late st Contact Info) Description 10/22/2020 Telephone [facility] Pediatric Gastroenterology [facility] Medical Office Building 2 [address] [place] [address] Madyson Uriostegui, CLINICAL ASST 1 [facility] [address] [place] [address] Social History Tobacco Use Types [...] file Legal Sex 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 In August, she was vomiting frequently and Rifaximin helped to reduce it (not resolve it). She had another round of Rifaximin (which was somewhat helpful), but she has continued to have symptoms. She has ongoing abdominal bloating & pain daily. Every 3 days, she will start vomiting. She will vomit several times per day. She is keeping her She cannot sleep at night, due to bloating and abdominal pain. She is passing one formed stool every 2 days. She admits to not feeling like she can empty out. Recommend FODMAP & MOM 30ml. Happy to see if an attending will see her for ongoing symptoms management. OR PROGRAM PLANNER documented in this encounter Plan of Treatment Not on file documented as of this encounter Visit Diagnoses Not on filedocumented in this encounter Care Teams Spa Director Relationship Specialty Start Date End Date Johnna Tinajero MD [address] [place] [address] PCP - General Pediatrics 07/19/19 01/26/23 Johnna Tinajero MD [address] [place] [address] 07/19/19 documented as of this encounter
--- OUTSIDE RECORDS SUMMARY | 2024-08-28 02:13 | XMS_ITS | Encounter Summary ---
Author Organization [facility] Address [address] [place] [address] [address] [place] [address] Phone Care Team Providers Care Front Office Java Developer Name Role Phone Johnna Tinajero MD Primary Care Provider + Johnna Tinajero MD Unavailable [phone] Reason for Visit * Reason Onset Date Comments syncope episode 04/19/2020 Encounter Details Date Type Department Care Team (Late st Contact Info) Description 04/19/2020 Telephone [facility] [address] [facility] [address] [place] [address] Johnna Tinajero MD [address] [place] [address] [address] [place] [address] syncope episode Social History Tobacco Use Types Packs/Day Years [...] on file 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 Does have history of anxiety * Telephone Encounter - Kady Yang - 04/19/2020 8:02 AM CDT Pt away at [place], first year of college. On 04/11/2020 pt was with her room mate. Per room mate they were just sitting and Nina passed out for about 1 min, was fine for a few minutes and then passed out again for 2 min. She states pt can normally tell when they are coming on, but had no warning these were coming. Had headache afterwards. Went to hospital, did CT Scan and blood work all looked good. Discussed with Dr. Tinajero, should connect with counselor at school, ? Anxiety related, per mom pt has been doing telehealth visit with her therapist here. Advised mom to have pt stay well hydrated, monitor. C/B increased sx, questions, concerns, PRN documented in this encounter Plan of Treatment Not on file documented as of this encounter Visit Diagnoses Not on filedocumented in this encounter Care Teams Front Office Java Developer Relationship Specialty Start Date End Date Johnna Tinajero MD [address] [facility] [address] [place], [place] [id number] PCP - General Pediatrics 07/19/19 01/26/23 Johnna Tinajero MD [address] [facility] [address] [place], [place] [id number] 07/19/19 documented as of this encounter
--- OUTSIDE RECORDS SUMMARY | 2024-08-28 02:13 | XMS_ITS | Encounter Summary ---
Author Organization [facility] Address [address] [place] [address] [address] [place] [address] Phone Care Team Providers Care Power Saw Mechanic Name Role Phone Johnna Tinajero MD Primary Care Provider + Johnna Tinajero MD Unavailable Reason for Visit * Reason Onset Date Comments Concussion 07/19/2020 Encounter Details Date Type Department Care Team (Late st Contact Info) Description 07/19/2020 Telephone [facility] [address] [facility] [address] [place] [address] Johnna Tinajero MD [address] [place] [address] [address] [place] [address] Concussion Social History Tobacco Use Types Packs/Day Years [...] on file Legal Sex 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 Per mom-imaging was not done in ED but she was diagnosed with concussion. Mechanism of injury: Doing homework on the top bunk of bunk bed, went to reach for something, fell off bed, and hit head on a cushioned ottoman. Patient was at college, her roommate took her to ED where she was evaluated for concussion. Swelling/ Wound?: No Child's behavior at present: headaches periodically throughout day, Per mom- patient is sleeping more than usual but she is not sure if it is related to concussion or finishing semester at college. Patient is now at home and on Winter break from school. Child's behavior immediately after injury (any LOC? Did child cry?): Did not lose consciousness. Head injury instructions reviewed: ?? The most useful activity for the parent is to watch how alert and responsive your child is. If he talks well, plays, and is interested in what is going on, those are good signs. If he seems confused, hard to keep awake, talks or acts peculiarly, those are bad signs and you should call. Some headache is not unusual. Severe headache, or a headache that keeps getting worse, is a reason to call. ?? Acetaminophen, not aspirin or ibuprofen, may be given for headaches, and a cold pack can be applied to any bruises. ?? Vomiting shortly after the injury is not unusual. Vomiting later on, especially after two or three times, should be reported. Only liquids should be given at first. If there is no more vomiting, light foods can be given. ?? If your child has trouble with coordination, such as stumbling or having unusual muscle movements, or if there are vision complaints, unusual eye movements, or dizziness, call. If you???re not sure about a certain behavior or complaint, call us to talk it over. ?? Concussion sheet discussed- mom will send form through [employer] when she has a chance to review with patient to establish a baseline for symptoms. C/B: Acting less responsive, uncoordinated movements, late vomiting more than 2- 3 times, vision complaints, unusual eye movements, dizziness, severe headaches, concerns. Mom agrees with plan of care. STOCK COMMISSION AGENT documented in this encounter Plan of Treatment Not on file documented as of this encounter Visit Diagnoses Not on filedocumented in this encounter Care Teams Power Saw Mechanic Relationship Specialty Start Date End Date Johnna Tinajero MD [address] [address] PCP - General Pediatrics 07/19/19 01/26/23 Johnna Tinajero MD [address] [address] 07/19/19 documented as of this encounter
--- OUTSIDE RECORDS SUMMARY | 2024-08-28 02:13 | XMS_ITS | Encounter Summary ---
Author Organization [facility] Address [address] [place] [address] [address] [place] [address] Phone Care Team Providers Care Lead Generation Representative Name Role Phone Johnna Tinajero MD Primary Care Provider + Johnna Tinajero MD Unavailable [phone] Reason for Visit * Reason Onset Date Comments vomiting/chest pain 10/23/2020 Encounter Details Date Type Department Care Team (Late st Contact Info) Description 10/23/2020 Telephone [facility] [address] [facility] [address] [place] [address] Johnna Tinajero MD [address] [place] [address] [address] [place] [address] vomiting/chest pain Social History Tobacco Use Types Packs/Day [...] file Legal Sex 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 MEDICAL 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 Was started on Milk of Mag by GI yesterday. Took 30 mls last noc and vomited within 10 min. Did not re-dose pt. Today complaining of a stabbing pain in chest through her back. No constant. NO URI sxs. Mom has sent message to as well. Advised mom to try MOM again tonight, if has same episode she should contact GI in the A.M. and call us with update. C/B PRN CAL INSTRUMENT CABLE FABRICATOR documented in this encounter Plan of Treatment Not on file documented as of this encounter Visit Diagnoses Not on filedocumented in this encounter Care Teams Lead Generation Representative Relationship Specialty Start Date End Date Johnna Tinajero MD [address] [address] PCP - General Pediatrics 07/19/19 01/26/23 Johnna Tinajero MD [address] [address] 07/19/19 documented as of this encounter
--- OUTSIDE RECORDS SUMMARY | 2024-08-28 02:13 | XMS_ITS | Encounter Summary ---
Author Organization [facility] Address [address] [place] [address] Phone Care Team Providers Care Fast Food Attendant Name Role Phone Johnna Tinajero MD Primary Care Provider + Johnna Tinajero MD Unavailable [phone] Reason for Visit * Reason Onset Date Comments PA for Xifaxan 09/25/2020 Encounter Details Date Type Department Care Team (Late st Contact Info) Description 09/25/2020 Telephone [facility] Pediatric Gastroenterology [facility] 2nd [place] [address] [place] [address] Gt Collazo, RMA PA for Xifaxan Social History Tobacco Use Types Packs/Day Years [...] on file Legal Sex 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 LABORATORY APPARATUS GLASS BLOWER Gender Identity Not on file Sexual Orientation Not on file documented as of this encounter Miscellaneous Notes * Telephone Encounter - Gt Collazo MA - 10/01/2020 2:03 PM CST No PA needed, Pharmacy notified RATORY APPARATUS GLASS BLOWER * Telephone Encounter - Gt Collazo MA - 09/25/2020 12:54 PM LABORATORY APPARATUS GLASS BLOWER Initiated PA for Xifaxan via cover my med. Sent to review RATORY APPARATUS GLASS BLOWER documented in this encounter Plan of Treatment Not on file documented as of this encounter Visit Diagnoses Not on filedocumented in this encounter Care Teams Fast Food Attendant Relationship Specialty Start Date End Date Johnna Tinajero MD [address] [address] PCP - General Pediatrics 07/19/19 01/26/23 Johnna Tinajero MD [address] [address] 07/19/19 documented as of this encounter
--- OUTSIDE RECORDS SUMMARY | 2024-08-28 02:13 | XMS_ITS | Encounter Summary ---
Author Organization [facility] Address [address] [place] [address] Phone Care Team Providers Care Citrus Picker Name Role Phone Johnna Tinajero MD Primary Care Provider + Johnna Tinajero MD Unavailable [phone] Encounter Details Date Type Department Care Team (Late st Contact Info) Description 09/03/2020 Telephone [facility] Pediatric Gastroenterology [facility] 2nd [place] [address] [place] [address] Carlton Garza MD PhD 1 [facility] [address] [place] [address] Social History Tobacco Use Types [...] on file Legal Sex 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 INFRASTRUCTURE TECHNICIAN Gender Identity Not on file Sexual Orientation Not on file documented as of this encounter Ordered Prescriptions Prescription Sig Dispense Quantity Refills Last Filled Start Date End Date ondansetron ODT (ZOFRAN-ODT) 4 mg disintegrating tablet Take 1 tablet (4 mg total) by mouth every 8 (eight) hours as needed for nausea or vomiting 16 tablet 09/03/2020 1 documented in this encounter Miscellaneous Notes * Telephone Encounter - Patrica Peñaloza RN - 09/05/2020 9:48 AM CST SW mom, reviewed again the SIBO test results. They have already picked up the medication, will call in a couple weeks for update. ER also gave her Bentyl and Reglan. Advised she does not need to take them around the clock, as needed only with Reglan. Keep diet bland, low sugar. Give the anbx some time to work, call back in 2-3 weeks for update. ASTRUCTURE TECHNICIAN * Telephone Encounter - Madyson Uriostegui NP - 09/05/2020 8:45 AM INFRASTRUCTURE TECHNICIAN FYI: LM for mom with positive SIBO results, also sent [employer] message. Ordered Rifaximin TID. Mom called office this morning wanting to be seen this week, before patient leaves for school. She was seen in ER & at PMD yesterday. I do not have clinic in person for the rest of the week. It is likely best to start Rifaximin & see if that helps. If they want her to be seen, I'm happy to have someone else see her. Asked mom to call back to discuss. ASTRUCTURE TECHNICIAN * Telephone Encounter - Carlton Garza MD PhD - 09/03/2020 6:42 PM CST Call from Nina's mom. Still having abdominal pain and vomiting, but mom thinks she is able to keepfluids down and maintain UOP. Zofran helps, but she has run out and isn't sure what pharmacy we previously sent Zofran to today. Hoping to get more definitive guidance. I told her we are waiting for breath test results before adding a new definitive medicine and gave return precautions of ED if vomiting too much to hold anything down or decreased UOP. Mom voiced appreciation. I sent Zofran to mom's requested pharmacy. ASTRUCTURE TECHNICIAN documented in this encounter Plan of Treatment Not on file documented as of this encounter Visit Diagnoses Not on filedocumented in this encounter Discontinued Medications Medication Sig Discontinue Reason Start Date End Da te ondansetron ODT (ZOFRAN-ODT) 4 mg disintegrating tablet Take 1 tablet (4 mg total) by mouth every 8 (eight) hours as needed for nausea or vomiting Reorder 09/01/2020 09/03/2020 documented as of this encounter Additional Health Concerns Infection Onset Date Last Indicated Resolved Time COVID: Suspected 09/04/2020 09/04/2020 09/04/2020 7:11 PM INFRASTRUCTURE TECHNICIAN Respiratory Infection (JASMINE), contact + droplet Comment:Automatically added due to negative COVID-19 result. 09/04/2020 09/04/2020 09/18/2020 3:0 7 AM INFRASTRUCTURE TECHNICIAN documented as of this encounter Care Teams Citrus Picker Relationship Specialty Start Date End Date Johnna Tinajero MD [address] [address] PCP - General Pediatrics 07/19/19 01/26/23 Johnna Tinajero MD [address] [address] 07/19/19 documented as of this encounter
--- OUTSIDE RECORDS SUMMARY | 2024-08-28 02:13 | XMS_ITS | Encounter Summary ---
Author Organization [facility] Address [address] [place] [address] [address] [place] [address] Phone Care Team Providers Care Employee Benefits Insurance Agent Name Role Phone Johnna Tinajero MD Primary Care Provider + Johnna Tinajero MD Unavailable Reason for Visit * Reason Onset Date Comments Letter for School/Work 08/02/2020 Encounter Details Date Type Department Care Team (Late st Contact Info) Description 08/02/2020 Telephone [facility] [address] [facility] [address] [place] [address] Johnna Tinajero MD [address] [place] [address] [address] [place] [address] Letter for School/Work Social History Tobacco Use Types Packs/Day Years [...] on file Legal Sex 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 RN ADMISSION Gender Identity Not on file Sexual Orientation Not on file documented as of this encounter Miscellaneous Notes * Telephone Encounter - Davina Prater RN - 08/02/2020 10:53 AM CST Concussion screen reviewed with PCP. Okay to return to course work. Letter written and signed by PCP. LM to to get school's fax number. ADMISSION * Telephone Encounter - Davina Prater RN - 08/02/2020 7:49 AM RN ADMISSION ----- Message from Nina Coyne sent at 08/01/2020 6:45 PM RN ADMISSION ----- Regarding: RE: Visit Follow-Up Question Contact: No. We will just need a note releasing her for the [employer] so that she can finish up her coursework for the semester. They had put her on a pause while she recovered. I think they will want documentation from the doctor. ADMISSION documented in this encounter Plan of Treatment Not on file documented as of this encounter Visit Diagnoses Not on filedocumented in this encounter Care Teams Employee Benefits Insurance Agent Relationship Specialty [place] [address] [place] [address] PCP - General Pediatrics 07/19/19 01/26/23 Johnna Tinajero MD [address] [address] 07/19/19 documented as of this encounter
--- OUTSIDE RECORDS SUMMARY | 2024-08-28 02:13 | XMS_ITS | Encounter Summary ---
Author Organization [facility] Address [address] [place] [address] Phone Care Team Providers Care Clerical And Office Support Workers Name Role Phone Johnna Tinajero MD Primary Care Provider + Johnna Tinajero MD Unavailable Reason for Visit * Reason Onset Date Comments Schedule hydrogen breath test 08/22/2020 Encounter Details Date Type Department Care Team (Late st Contact Info) Description 08/22/2020 Telephone [facility] Pediatric Gastroenterology [facility] 2nd [place] [address] [place] [address] Madyson Uriostegui, DEISI [address] [facility] [address] [place], [place] [id number] Schedule hydrogen breath test Social History Tobacco Use Types Packs/Day Years [...] on file Legal Sex 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 POST ACUTE CARE REGISTERED NURSE Gender Identity Not on file Sexual Orientation Not on file documented as of this encounter Miscellaneous Notes * Telephone Encounter - Mercedes Steve - 08/22/2020 1:20 PM CST Spoke with mom. Scheduled the lactulose hydrogen breath test for 08/29 at 8:00 am. Sent [employer] message with the prep instructions. ACUTE CARE REGISTERED NURSE * Telephone Encounter - Mercedes Steve - 08/22/2020 1:13 PM CST ----- Message from Madyson Uriostegui NP sent at 08/21/2020 3:44 PM POST ACUTE CARE REGISTERED NURSE ----- Please schedule Lactulose breath test to r/o SIBO. Thx. ACUTE CARE REGISTERED NURSE documented in this encounter Plan of Treatment Not on file documented as of this encounter Visit Diagnoses Not on filedocumented in this encounter Care Teams Clerical And Office Support Workers Relationship Specialty Start Date End Date Johnna Tinajero MD [address] [place] [address] [address] [place] [address] PCP - General Pediatrics 07/19/19 01/26/23 Johnna Tinajero MD [address] [place] [address] 07/19/19 documented as of this encounter
--- OUTSIDE RECORDS SUMMARY | 2024-08-28 02:13 | XMS_ITS | Encounter Summary ---
Author Organization [facility] Address [address] [place] [address] Phone Care Team Providers Care House Cleaner Supervisor Name Role Phone Johnna Tinajero MD Primary Care Provider + Johnna Tinajero MD Unavailable [phone] Encounter Details Date Type Department Care Team (Late st Contact Info) Description 09/05/2020 Orders Only [facility] Pediatric Gastroenterology [address] [facility] [address] [place] [id number] Madyson Uriostegui, MULTISKILL OPERATOR [address] [facility] [address] [place] [address] Social History Tobacco Use Types [...] on file Legal Sex 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 CHECK VIEWER Gender Identity Not on file Sexual Orientation Not on file documented as of this encounter Ordered Prescriptions Prescription Sig Dispense Quantity Refills Last Filled Start Date End Date rifAXIMin (XIFAXAN) 550 mg tabletIndications: Small intestinal bacterial overgrowth Take 1 tablet (550 mg total) by mouth 3 (three) times a day for 14 days 42 tablet 09/05/2020 09/19/2020 documented in this encounter Plan of Treatment Not on file documented as of this encounter Visit Diagnoses Not on filedocumented in this encounter Additional Health Concerns Infection Onset Date Last Indicated Resolved Time Respiratory Infection (JASMINE), contact + droplet Comment:Automatically added due to negative COVID-19 result. 09/04/2020 09/04/2020 09/18/2020 3:0 7 AM CHECK VIEWER documented as of this encounter Care Teams House Cleaner Supervisor Relationship Specialty Start Date End Date Johnna Tinajero MD [address] [address] PCP - General Pediatrics 07/19/19 01/26/23 Johnna Tinajero MD [address] [address] 07/19/19 documented as of this encounter
--- OUTSIDE RECORDS SUMMARY | 2024-08-28 02:13 | XMS_ITS | Encounter Summary ---
Author Organization [facility] Address [address] [place] [address] Phone Care Team Providers Care Manager Park Name Role Phone Johnna Tinajero MD Primary Care Provider + Johnna Tinajero MD Unavailable [phone] Encounter Details Date Type Department Care Team (Late st Contact Info) Description 11/08/2020 Telephone [facility] Pediatric Gastroenterology [facility] 2nd [address] [place] [address] Brandee Solorzano, RD [address] [facility] [address] [place], [place] [id number] Social History Tobacco Use Types Packs/Day Years [...] on file 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 I have not seen in her over a year at this point and I am assuming the family does not want to wait till my schedule opens back up, but very nice family! Dr. Garza, were you on service during her admission? Would you be able to see her in follow up?Other alteratives would be Dr. Dial, since she was on service during her admission. I can call the family back - but I would like to have some type of follow up plan for them. * Telephone Encounter - Brandee Solorzano RD - 11/08/2020 3:49 PM CST Nutrition Phone Encounter Spoke with Vicki (mother) to follow up on dietary assessment and recommendations given at hospital discharge. Attempted to reach Nina as well, but unable to reach or leave a voicemail. Successes: ?? Seems like low FODMAP diet is helping some with bloating and pain. ?? Levsin is helping manage symptoms Challenges: ?? Continues to have some bloating and pain, although less severe. Had some increased pain after eating cheese curds ?? Hard to get enough calories on low FODMAP diet. She is aiming for 1500- 2000/day. Food choices are limited and hard to find things she wants to eat. ?? It will be hard to find low FODMAP options when she goes back to school next . She livesin a dorm and eats from restaurants at the [employer] ([employer], [employer], [employer], [employer], [employer]) or the dining [employer] cafeteria. Usual Diet: 10-11 am 1 slice sourdough toast with butter. Sometimes GF vegan chocolate chip muffins 1-2 pm cantaloupe or some chips 6-7:30 pm dinner that mom makes (ex: low FODMAP chicken strips). Mom estimates she eats about half of a normal portion. Mom makes GF vegan chocolate chip muffins and GF cookie bars in case Nina wants a snack. Medications/vitamins/supplements: Iron tablets, Lexapro, OCP, Breo, Migralief. Stopped vitamin B12 and vitamin C gummies when started low FODMAP diet. Not taking a probiotic. Today is last day of rifaximin/neomycin. Mental Health: Mom thinks she's doing really well. Anxiety compared to high school is much less. Feels she is doing well despite the pain. Encourages her to keep busy and give her brain something else to think about. Mom and her talk a lot, and Nina talks about how bad she wants to go back to school. She's had a counselor/licensed social worker that she's seen off and on since 11 years old. Plan ?? Recommend add Ensure, Boost, or OWYN shakes. ?? Continue low FODMAP diet for another week. ?? When possible, space out meals/snacks every 4 hours and fast 12 hours per night. ?? Contact dining services at [facility] to get more information about accomodations for low FODMAP. ?? Continue to stay off probiotic while on low FODMAP diet. ?? Send me a diet/symptom log ?? Follow up with Dr Weeks TIONAL REHABILITATION SUPERVISOR documented in this encounter Plan of Treatment Not on file documented as of this encounter Visit Diagnoses Not on filedocumented in this encounter Care Teams Manager Park Relationship Specialty Start Date End Date Johnna Tinajero MD [address] [facility] [address] [place] [address] PCP - General Pediatrics 07/19/19 01/26/23 Johnna Tinajero MD [address] [facility] [address] [place] [address] 07/19/19 documented as of this encounter
--- OUTSIDE RECORDS SUMMARY | 2024-08-28 02:13 | XMS_ITS | Encounter Summary ---
Author Organization [facility] Address [address] [place] [address] Phone Care Team Providers Care Cloth Grader Supervisor Name Role Phone Johnna Tinajero MD Primary Care Provider + Johnna Tinajero MD Unavailable [phone] Encounter Details Date Type Department Care Team (Late st Contact Info) Description 10/23/2020 Telephone [facility] Pediatric Gastroenterology [address] [facility] 2nd [place] [address] [place] [address] Leonor Mahmood MD [address] [facility] [address] [place] [address] Social History Tobacco Use Types [...] on file 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 Will monitor and call later for an update if not admitted to the floor. E CLASSIFIER * Telephone Encounter - Leonor Mahmood MD - 10/23/2020 9:01 PM SHADE CLASSIFIER Mom called because Nina had streaks of blood in her vomit this evening. She has not been keeping down fluids today. Recommended coming to the ER for evaluation tonight. E CLASSIFIER documented in this encounter Plan of Treatment Not on file documented as of this encounter Visit Diagnoses Not on filedocumented in this encounter Care Teams Cloth Grader Supervisor Relationship Specialty Start Date End Date Johnna Tinajero MD [address] [address] PCP - General Pediatrics 07/19/19 01/26/23 Johnna Tinajero MD [address] [address] 07/19/19 documented as of this encounter
--- OUTSIDE RECORDS SUMMARY | 2024-08-28 02:13 | XMS_ITS | Encounter Summary ---
Author Organization [facility] Address [address] [place] [address] Phone Care Team Providers Care Nurse Charge Rn Name Role Phone Johnna Tinajero MD Primary Care Provider + Johnna Tinajero MD Unavailable [phone] Reason for Visit * Reason Onset Date Comments Scheduling Appointments 08/08/2020 Encounter Details Date Type Department Care Team (Late st Contact Info) Description 08/08/2020 Telephone [facility] Pediatric Gastroenterology [facility] 2nd [place] [address] [place] [address] Madyson Uriostegui, DEISI [address] [facility] [address] [place] [address] Scheduling Appointments Social History Tobacco [...] on file 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 Patient scheduled 08/21 @ 3 HER OPERATOR * Telephone Encounter - Madyson Uriostegui NP - 08/10/2020 4:48 PM SLASHER OPERATOR Yes. Thanks. HER OPERATOR * Telephone Encounter - Macy Morin RMA - 08/09/2020 2:45 PM SLASHER OPERATOR Is it okay to put her in a Health start spot? You do not have any afternoon appointments available. HER OPERATOR HER OPERATOR * Telephone Encounter - Madyson Uriostegui NP - 08/09/2020 1:46 PM SLASHER OPERATOR I can see her Monday 08/20 morning at our [facility] office. HER OPERATOR * Telephone Encounter - Macy Morin RMA - 08/08/2020 3:19 PM SLASHER OPERATOR I called mom to scheduled 3-4 month f/u with VLADIMIR. She also stated she was not sure when Nina was supposed to come back for a visit with a GI provider. The patient is home for the Holidays so mom would like to get any procedures or visits done during this time. HER OPERATOR documented in this encounter Plan of Treatment Not on file documented as of this encounter Visit Diagnoses Not on filedocumented in this encounter Care Teams Nurse Charge Rn Relationship Specialty Start Date End Date Johnna Tinajero MD [address] [address] PCP - General Pediatrics 07/19/19 01/26/23 Johnna Tinajero MD [address] [address] 07/19/19 documented as of this encounter
--- OUTSIDE RECORDS SUMMARY | 2024-08-28 02:13 | XMS_ITS | Encounter Summary ---
Author Organization [facility] Address [address] [facility] [address] [place] [address] Phone Care Team Providers Care Document Management Consultant Name Role Phone Johnna Tinajero MD Primary Care Provider + Johnna Tinajero MD Unavailable Reason for Referral * Gastroenterology (Routine) - Closed Specialty Diagnoses / Procedures Referred By Contact Referred To Contact Pediatric Gastroenterology Diagnoses Abdominal pain Johnna Tinajero MD [address] [place], [place] [id number] Phone: tel:[phone] fax:[phone] [facility] (All Locations) Referral ID Status Reason Start Date Expiration Date V isits Requested Visits Authorized [id number] Closed Continuity of Care 04/04/2020 05/04/2021 12 12 Question Answer Please select the performing region: [facility] (All Locations) [[id number]] # of visits: 1 Reason for Visit * Gastroenterology (Routine) - Closed Specialty Diagnoses / Procedures Referred By Contact Referred To Contact Pediatric Gastroenterology Diagnoses Abdominal pain Johnna Tinajero MD [address] [place] [address] Phone: tel:[phone] fax:[phone] [facility] (All Locations) Referral ID Status Reason Start Date Expiration Date V isits Requested Visits Authorized [id number] Closed Continuity of Care 04/04/2020 05/04/2021 12 12 Encounter Details Date Type Department Care Team (Late st Contact Info) Description 04/05/2020 9:00 AM CDT Telemedicine [facility] Pediatric Gastroenterology [address] [facility] 2nd [place] [address] [place] [address] Madyson Uriostegui NP [address] [facility] [address] [place] [address] Abdominal pain (Primary Dx); Nausea; Obesity without serious comorbidity with body mass index (BMI) greater than 99th percentile for age in pediatric patient, unspecified obesity type; Anxiety Social History Tobacco Use Types Packs/Day Years [...] on file 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 Gender Identity Not on file Sexual Orientation Not on file documented as of this encounter Ordered Prescriptions Prescription Sig Dispense Quantity Refills Last Filled Start Date End Date rifAXIMin (XIFAXAN) 550 mg tabletIndications: Other (complete free text reason below),SIBO Take 1 tablet (550 mg total) by mouth 2 (two) times a day for 14 days 28 tablet 04/05/2020 04/19/2020 documented in this encounter Progress Notes * Madyson Uriostegui, DEISI - 04/05/2020 9:00 AM CDT 04/05/2020 Nina Elvin Coyne 2000 This was a telemedicine visit with Nina Elvin Coyne and her mother which took place via Real-time audio/video communication (Zoom, InTouch, or similar). During the visit, I was located at my home in the state of [place] and the patient was located at home in the state of [place] . The session started at 9:05 AM and ended at 9:35 AM. I spent 15 minutes reviewing prior notes, laboratory results, endoscopic reports, biopsy results and radiologic results and documentating for a total time in care of Nina Coyne today of 45 minutes. I personally spent greater than 50% of the total audio/visual encounter in counseling with the patient/parent as described above. The patient and parent: has been informed that the visit may not be secure and acknowledged the information. The option of participating in a telephone or video visit during the [facility] public health emergency was explained to them. After being given an opportunity to ask questions about and discuss this type of visit, they verbally consented to proceeding with the telephone/video visit and understand that this service replaces an office visit. Nina was seen today for a follow-up visit in the Pediatric Gastroenterology, Hepatology & Nutrition division. Nina is a 20 y.o. female with abdominal pain and nausea. Her last visit was on Oct 05. The history is from her mother. HPI We have been following Nina since July, for abdominal pain and nausea. Her evaluation hasbeen unremarkable. She has been hospitalized twice for these symptoms. She has underlying anxiety and depression. Her pain has been variable, but nausea has been an ongoing complaint. She is obese and continues to eat without much limitation. She is working with our dietitian. She has tried multiple medications without improvement in her symptoms. They contacted our office last week with reports of ongoing symptoms. She is leaving for college next week and they are concerned about her ability to function with ongoing nausea. Since her last visit, Nina has continued to have nausea and abdominal pain. She is not vomiting. She is not taking Nortriptyline or Topamax, due to undesirable side effects. She cannot eat normal portions because if she does, she will vomit. She is trying to eat 4 times per day. She complains of nausea and periumbilical abdominal pain. The pain is somewhat constant and worse upon eating. She is passing soft/formed stools daily. She is not having diarrhea. She has intermittent abdominal bloating. Omeprazole and Janes tea have not been helpful. She is taking Lexapril. She does not think her symptoms are related to anxiety. She is getting ready to leave for college next week at [employer]. She will be living in the dorms with someone she does not know. She is going to study something in the medical field. Denies weight loss, fever, abdominal distention, rash, joint pains, oral ulcerations, hematochezia,and night-time waking with symptoms. 07/19 - CT: 1. ??Normal appendix. 2. ??Right ovarian corpus luteal cyst with mild free fluid in [id number]. 07/19 - ultrasound pelvis and ovaries: normal; ultrasound abdomen limited: appendix not visualized;no definitive appendicitis; exam limited by patient's body habitus; 07/19 - ultrasound GB: normal 09/19 UGI: normal 09/19 EGD unremarkable (chronic inactive gastritis) 10/20 Brain MRI: normal 11/17 CBC, Cortisol, gastric emptying (normal) Allergies Allergen Reactions ??? Dog Dander Hives Reaction: HIVES, ??? Penicillins Other (See comments) and Rash As a child Reaction: NAUSEA;, As a child Outpatient Medications Prior to Visit Medication Sig Dispense Refill ??? albuterol (PROVENTIL,VENTOLIN) 1.25 mg/3 mL nebulizer solution Take 1.25 mg by nebulization every 4 (four) hours as needed for wheezing or shortness of breath ??? albuterol HFA (PROVENTIL HFA,VENTOLIN HFA,PROAIR HFA) 90 mcg/actuation inhaler Inhale 2 puffs every 6 hours as needed for wheezing or shortness of breath ??? escitalopram (LEXAPRO) 20 mg tablet Take 1 tablet (20 mg total) by mouth daily 30 tablet 2 ??? fluticasone furoate-vilanterol (Breo Ellipta) 100-25 mcg/dose diskus inhaler Inhale 1 puff daily 60 each 0 ??? norgestimate-ethinyl estradiol (ORTHO TRI-CYCLEN LO) 0.18/0.215/0.25 mg-25 mcg per tablet Take 1 tablet by mouth daily 0 ??? prochlorperazine (Compazine) 10 mg tablet Take 1 tablet (10 mg total) by mouth every 6 (six) hours as needed for nausea or vomiting Take with benadryl. 30 tablet 2 ??? omeprazole (PriLOSEC) 20 mg capsule Take 1 capsule (20 mg total) by mouth every other day for 7days For 1 week, then stop taking. 5 capsule 0 No facility-administered medications prior to visit. Review of Systems Constitutional: Negative for appetite change, fatigue, fever and unexpected weight change. HENT: Negative for trouble swallowing. Eyes: Negative for visual disturbance. Respiratory: Negative for cough, choking, shortness of breath and wheezing. Cardiovascular: Negative for chest pain. Gastrointestinal: Positive for abdominal pain and nausea. Negative for abdominal distention, blood in stool, constipation and vomiting. Genitourinary: Negative for dysuria, frequency and hematuria. Musculoskeletal: Negative for arthralgias and joint swelling. Skin: Negative for rash. Neurological: Negative for weakness. Psychiatric/Behavioral: Negative for behavioral problems and sleep disturbance. Physical Exam Constitutional: General: She is not in acute distress. Appearance: Normal appearance. She is well-developed. She is not ill-appearing or toxic-appearing. HENT: Head: Normocephalic and atraumatic. Right Ear: External ear normal. Left Ear: External ear normal. Nose: Nose normal. Eyes: General: No scleral icterus. Right eye: No discharge. Left eye: No discharge. Conjunctiva/sclera: Conjunctivae normal. Pulmonary: Effort: Pulmonary effort is normal. No tachypnea or respiratory distress. Musculoskeletal: Normal range of motion. Skin: Coloration: Skin is not jaundiced or pale. Findings: No rash. Neurological: Mental Status: She is alert and oriented to person, place, and time. Psychiatric: Attention and Perception: Attention normal. Mood and Affect: Mood normal. Speech: Speech normal. Behavior: Behavior normal. Assessment 1. Abdominal pain 2. Nausea 3. Obesity without serious comorbidity with body mass index (BMI) greater than 99th percentile for age in pediatric patient, unspecified obesity type 4. Anxiety Nina's symptoms have been persistent, yet her evaluation has been unremarkable. She has underlyinganxiety and is packing to go to college in the middle of a pandemic. She fails to make the connection that her symptoms are most-likely related to anxiety, stress, transition, obesity. Family is asking about SIBO and if her symptoms could be related to that. Plan Orders Placed This Encounter Procedures ??? Ambulatory referral to Pediatric Gastroenterology Standing Status: Future Number of Occurrences: 1 Standing Expiration Date: 04/04/2021 Referral Priority: Routine Referral Type: Consultation Referral Reason: Specialty Services Required Referral Location: [facility] (All Locations) Requested Specialty: Pediatric Gastroenterology Number of Visits Requested: 1 New Medications Ordered This Visit ??? rifAXIMin (XIFAXAN) 550 mg tablet Sig: Take 1 tablet (550 mg total) by mouth 2 (two) times a day for 14 days Dispense: 28 tablet Refill: 0 Discussion regarding functional digestive disorders and impact of stress/anxiety/depression on symptoms. There are no published treatment trials on chronic nausea to guide therapy. Treatment of functionalnausea is challenging and generally based on empiric strategies. Retrospective data suggest little benefit of classical antiemetics such as 5-HT3 antagonists (ondansetron). Alternative therapies suchas janes, STW5, and peppermint oil may have some efficacy for meal-related nausea. In a systematicreview, janes 1 g daily was found more effective than placebo for a wide variety of causes of nausea and vomiting, Like in many other functional disorders, an interdisciplinary approach addressing psychosocial burden is likely to represent the most effective intervention. Educating family on the role of stress infunctional disorders, using simple analogies to explain brain-gut connections and establishing a pk stworthy relation will facilitate treatment. Based on the same principle, there are now several commercially available devices that are marketed for nausea of or motion sickness, which may also provide benefit to adolescents with chronic functional nausea. We discussed her negative evaluation to date. Education regarding SIBO and variety of symptoms that could be related to SIBO. IBS is most-likely diagnosis. Due to persistent symptoms, we agreed to try treatment for SIBO. Discussed insurance may not pay for medication, at which case I would not recommend paying out of pocket for medication. CBT is the recommended treatment for functional disorders. Weight loss and exercise efforts recommended. Nina will call me with an update within the next several weeks. Madyson Uriostegui NP documented in this encounter Plan of Treatment Scheduled Referrals Name Type Priority Associated Diagnoses Order Schedule Ambulatory referral to Pediatric Gastroenterology Outpatient Referral Routine Abdominal pain Expected: 04/18/2020 (Approximate), Expires: 04/04/2021 documented as of this encounter Visit Diagnoses Diagnosis Abdominal pain- Primary Abdominal pain, unspecified site Nausea Nausea alone Obesity without serious comorbidity with body mass index (BMI) greater than 99th percentile for age in pediatric patient, unspecified obesity type Anxiety Anxiety state, unspecified documented in this encounter Discontinued Medications Medication Sig Discontinue Reason Start Date End Da te omeprazole (PriLOSEC) 20 mg capsuleIndications:Treat ment of Non-Bleeding Gastric Disorder Take 1 capsule (20 mg total) by mouth every other day for 7 days For 1 week, then stop taking. 11/06/2019 04/06/2020 documented as of this encounter Care Teams Document Management Consultant Relationship Specialty Start Date End Date Johnna Tinajero MD [address] [address] PCP - General Pediatrics 07/19/19 01/26/23 Johnna Tinajero MD [address] [address] 07/19/19 documented as of this encounter
--- OUTSIDE RECORDS SUMMARY | 2024-08-28 02:13 | XMS_ITS | Encounter Summary ---
Author Organization [facility] Address [address] [place] [address] Phone Care Team Providers Care Sheeting Puller Name Role Phone Johnna Tinajero MD Primary Care Provider + Johnna Tinajero MD Unavailable [phone] Reason for Referral * Neurology (Routine) - Closed Specialty Diagnoses / Procedures Referred By [place] Referred To Contact Neuro Spec Qual Child Neurology Diagnoses Spells of decreased attentiveness Procedures EEG Nehal Riggs DO [address] [place] [address] Phone: tel: fax: Referral ID Status Reason Start Date Expiration Date Visits Re quested Visits Authorized [id number] Closed 09/03/2020 10/03/2021 1 1 ERTY INSURANCE AGENT Encounter Details Date Type Department Care Team (Latest Contact Info) Description 09/03/2020 1:00 PM PROPERTY INSURANCE AGENT Telemedicine [facility] Pediatric Neurology [facility] [address] [place] [id number] Nehal Riggs DO [address] [place] [address] Migraine without aura and without status migrainosus, not intractable (Primary Dx); Spells of decreased attentiveness Social History Tobacco Use Types Packs/Day Years [...] on file Legal Sex 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 PROPERTY INSURANCE AGENT Gender Identity Not on file Sexual Orientation Not on file documented as of this encounter Patient Instructions * Patient Instructions* Nehal Riggs, - 09/03/2020 1:00 PM PROPERTY INSURANCE AGENT - Will plan for routine EEG - Recommended to call if any increased headache frequency and will plan to likely resume the topiramate. - Continue migrelief daily - Abortive plan: Recommended taking ibuprofen as an abortive measure in the morning but can take compazine and benadryl with ibuprofen in the evening (so is not sedated while in school) as needed every 6 hours. - Follow-up with GI and nutrition - Continue psychology (for CBT) and psychiatry, recommended discussing biofeedback ??with a therapist near her school - Provided headache education Migraine & Headaches - Recommend limiting or avoiding caffeine. - Avoid bright lights and computer/phone screens during headache. Limit screen time as a whole if it is a trigger for you. - Get plenty of sleep (at least 8 hours nightly) and drink plenty of water (at least 72 oz daily). Also recommend daily aerobic exercise. - Limit over the counter analgesics such as ibuprofen, naproxen, ketorolac, or acetaminophen to fewer than 3 days per week. - Consider adding riboflavin and/or magnesium oxide supplements daily at dosing appropriate for ageand weight listed on product packaging. Migravent and Migrelief are products which contain both of these supplements in a single pill. These supplements should be given several weeks to see effect. - Consider keeping a headache diary or using the Migraine Bridger kaden to improve understanding of personal headache patterns. - Review [email or web address] - Please call the Pediatric Neurology office at [phone] Riggs of worsening migraine or missed school due to migraine symptoms. ERTY INSURANCE AGENT ERTY INSURANCE AGENT ERTY INSURANCE AGENT ERTY INSURANCE AGENT documented in this encounter Progress Notes * Nehal Riggs DO - 09/03/2020 1:00 PM CST Patient Name: NINA BAUTISTA Medical Record Number (MRN): [id number] Date of (): 2000 Encounter Date: 09/03/2020 [facility] Pediatric Neurology [facility] Telemedicine Visit Chief Complaint: Nina Bautista is a 20 y.o. female seen today as an outpatient visit for follow-up of migraine and spells. She is accompanied to the visit today by Mom. At the last visit 02/28/20, we recommended: - After discussing with her GI provider, Dr. Colby, recommend discontinuing her topiramate 25mg qhs.Recommended to call if any increased headache frequency and will plan to likely resume the topiramate. - Continue migrelief qD - Abortive plan: Recommended taking ibuprofen as an abortive measure in the morning but can take compazine and benadryl with ibuprofen in the evening (so is not sedated while in school) as needed q6h. - Recommend following up with Ophthalmology to rule out papilledema - Follow-up with GI and agree with nutrition - Continue psychology (for CBT) and psychiatry, recommended discussing biofeedback ?? - Provided headache education Portions of today's note were copied from my prior documentation and reviewed, confirmed, and edited as appropriate. History of Present Illness Nina is a 20 y.o. year old woman with a history of chronic nausea,??headaches, and??anxiety who presented to [facility] following a syncopal episode and headache 11/01-11/05. Nina's last headache was 08/30. Her topiramate was discontinued at the last visit in January 2020 since her headaches had improved and Mom wanted to trial coming off of this before she left for college. Since then, she has remained on migrelief qD. She has headaches once per week. Typically rated 5-6/10 for pain. Headaches last for 2h. Headaches are described as frontal and throbbing in quality. Notices black/blue dots at onset of her headaches that can be throughout her visual shaikh. This resolves when her headache does. This occurs less often, last occurring in May with a headache rated 8/10. Endorses associated photophobia. Denies n/v, phonophobia, dizziness. She reports improvement in pain with laying down in a dark room and after taking ibuprofen with worsening when moving around.Does not wake her up from sleep. Denies that it is worse at a particular time of day. Nina had an event 04/11/20 (per phone note to PMD) while away at [employer] in [place]. She was with her room mate and was sitting in the car and was parking at the time when reportedly Nina passedout for about 1 min, was fine for a few minutes and then passed out again for 2 min. She reported having no warning of any kind prior to the event and reported a headache afterwards. She awoke when her roommate in the car next to her knocked on the window (unclear if her eyes were open or closed when roommate saw her). No abnormal movements noted. She thinks she was out each time for about 30sec-1min. She did slightly bump a car in front of her. Denied incontinence. She felt dazed afterwards. She went to [facility] where reportedly evaluation including HCT was unrevealing. EKG was normal. PMD recommended connecting her with a counselor at school as this may have been anxiety related, hydrationand monitoring. Denied any sick symptoms at the time. EKG was nml. Then on 07/16, Nina was doing her homework on the top bunk of a bunk bed in her dorm room, when she went to reach for something, fell off the bed and hit her head on a cushioned ottoman. She did notlose consciousness. She presented to [facility] ED due to concern for possible concussion. Per mom, imaging was not done in ED but she was diagnosed with concussion. Reportedly she was sleeping more than usu al after that injury once returning home but this was also at the end of her semester so Mom wonders if she was also tired from that. She did mental rest for 2 weeks then completed her classes Saw GI in March, for nausea and abdominal pain and she was trialed on a course of Rifaximin for empiric treatment of SIBO. She reported improvement for 2 months after that treatment in her abdominal pain. Her symptoms then gradually increased over the past several months and at follow-up withGI on 08/21/20 they recommended performing a lactulose breath test to rule out continued SIBO which was performed 08/29/20. After the test, she had increased bloating and abdominal pain (sharp, belowumbilicus), occasional emesis, and bloody stool which improved a few days later. GI recommended trying peppermint oil in diffuser (rather than oral), Zofran, fluid intake and prn benadryl or tylenol for abdominal pain. Results are not back yet. The last few days, she reports continuing to have persistent RLQ pain that is sharp in quality and still having BRB in her stool although improved from prior. Denies headaches with these episodes. Nina reports sleeping well for 8h/night with occasional naps. She and Mom deny any excessive daytime sleepiness, snoring or pauses in her breathing overnight, falling asleep in class or with sudden emotional changes. She stays well hydrated. She saw optometry since we last saw her who had no concerns at that time, vision was stable. No papilledema. Nina also continues to follow with nutrition. They are focusing on 3x/d eating even when doesn't feel well. Doing that since she has been home for winter break. She has lost 40lbs due to decreased appetite. Nina reports that she has some days where she is stressed more than others but denies any worsening anxiety since we last saw her. She had been following with psychology but her counselor just stopped practicing so will need a new psychologist. She is hoping to find one near her college. She saw her psychiatrist last week. No med changes were made. 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 She is interested now in being an RT. Summary of Care and Studies Nina awoke with a headache on 11/01. She went to school but began feeling dizzy after school with some blurry/tunnel vision. She sat down in the locker room,??and called her friend and her mom. This sensation persisted for about 20 minutes. After mom arrived, she was sitting up with her back againstthe wall and she??slumped over onto her side and was unresponsive. No head trauma. No abnormal movements were noted or eye deviation, her eyes remained closed. Mom feels that her breathing slowed somewhat while unresponsive. She was unresponsive to nox stim reportedly. When EMS arrived, she became conscious, and immediately returned to baseline. She complained of??nausea and a headache, had an elevated blood pressure, and a POCT glucose of 68. In ED,??she had a repeat brief episode similar to event prior. CBC, BMP, CXR, troponin normal. ECG with normal siuns rhythm with low voltage QRS in lateral precordial leads and a QTc of 445 msec.??Orthostatic vitals positive for change from supine to standing. She was given a migraine cocktail and 1L NS bolus.??LP performed on 11/03 prior to this consultation being performed. No fundoscopic exam was performed prior. OP 27 with CP 13 after 28ccs removed. She reports that her headache has worsened since the LP. They have not trialed any abortives for her headache. Cardiology was consulted and felt that the prodromal symptoms were classic for vasovagal events. She has had multiple admissions in the past for nausea, vomiting, headache, or syncope.??She has had several other syncopal episodes over the past month. She was seen in ED on 10/24 and had an ECG with prolonged QTc but an otherwise normal workup.??GI??had recently increased her nortriptyline for n/v??so this was reduced from 40 mg to 30 mg daily.??Reportedly her headaches are??bifrontal and throbbing or occipital. Her headaches improve with laying down. Severity max of 8/10. They donot wake her from sleep. With her intractable nausea and vomiting, she was admitted in August 2019and an MRI brain was performed and was normal, ruling out a mass. She had a normal upper endoscopy at that time. Since that time there had been no change in the quality of her headaches or her n/v. Our team therefore recommended trialing migraine cocktail which led to headache resolution but she continued to have GI symptoms. Discussed starting migrelief and then topiramate as an outpatient once n ortriptyline had been discontinued. After discharge, she was weaned off of the nortriptyline and started on the topiramate 25mg qhs and migrelief qhs which led to improvement of her headaches. This was discontinued at the last visit. 08/2019 MRI brain normal LP 11/04/19 OP 27 with CP 13 after 28ccs removed. 30d holter event monitor was reportedly normal. History Adopted so largely unknown Development Parents and regional maintenance manager had no concerns for delays in development and she met her developmental milestones appropriately. Past Medical History Patient Active Problem List Diagnosis ??? History of migraine headaches ??? Obesity ??? Asthma, moderate persistent, well-controlled ??? Abnormal electrocardiography ??? Dander (animal) allergy ??? Vitamin D deficiency ??? Irregular menses ??? Abdominal pain ??? Asthma ??? Anxiety ??? Chronic nausea ??? Vasovagal syncope ??? Vomiting without nausea Past Medical History: Diagnosis Date ??? Abdominal pain 07/20/2019 ??? Abnormal electrocardiography 01/19/2017 Annotation: Saw cardiology 2016 and was cleared, repeat 08/25/19 Normal sinus rhythm with sinus arrhythmia with short AR ??? Anxiety 07/20/2019 ??? Asthma ??? Nausea 08/15/2019 ??? Vomiting multiple times per week Past Surgical History: Procedure Laterality Date ??? LUMBAR PUNCTURE WO INJECTION, THERAPEUTIC N/A 11/04/2019 ??? WRIST SURGERY Immunization Status UTD Medications Current Outpatient Medications on File Prior to Visit Medication Sig Dispense Refill ??? albuterol HFA (PROVENTIL HFA,VENTOLIN HFA,PROAIR HFA) 90 mcg/actuation inhaler Inhale 2 puffs every 6 hours as needed for wheezing or shortness of breath ??? cetirizine (ZyrTEC) 10 mg tablet Take 10 mg by mouth daily ??? escitalopram (LEXAPRO) 20 mg tablet Take 1 tablet (20 mg total) by mouth daily 30 tablet 2 ??? fluticasone furoate-vilanterol (Breo Ellipta) 100-25 mcg/dose diskus inhaler Inhale 1 puff daily 60 each 0 ??? norgestimate-ethinyl estradiol (ORTHO TRI-CYCLEN LO) 0.18/0.215/0.25 mg-25 mcg per tablet Take 1 tablet by mouth daily 0 ??? ondansetron (ZOFRAN) 4 mg tablet Take 1 tablet (4 mg total) by mouth every 8 (eight) hours as needed for nausea or vomiting 50 tablet 0 ??? prochlorperazine (Compazine) 10 mg tablet Take 1 tablet (10 mg total) by mouth every 6 (six) hours as needed for nausea or vomiting Take with benadryl. 30 tablet 2 No current facility-administered medications on file prior to visit. Allergies Allergies Allergen Reactions ??? Dog Dander Hives Reaction: HIVES, ??? Penicillins Other (See comments) and Rash As a child Reaction: NAUSEA;, As a child Family History Family History Adopted: Yes Family history unknown: Yes Unknown as she was adopted. Social History Social History Social History Narrative Adoptive mother : (Added by AYDA Paez) No secondhand smoke exposure : (Added by AYAD Paez) Lives with parents, younger sister, and brother. Nina has a prolonged history with anxiety and is on Lexapro (and nortriptyline from GI). She follows with a counselor. Trauma history includes: Nina's cousin who was close in age suddenly after a car accident over the summer. This loss has been very difficult for their family according to mother, but mother thinks Nnia has been coping well. Nina's best friend in 7th grade because of a brain tumor.? Denies drug, tobacco, or alcohol use. ?? School She attends [employer]. Gets good grades. No IEP. Review of Systems A complete review of systems including ear, nose, and throat, respiratory, cardiovascular, gastrointestinal, genitourinary, integumentary, endocrine, hematologic, musculoskeletal and psychiatric symptoms was completed and negative except as discussed in the HPI. Vital Signs There were no vitals filed for this visit. Physical Exam GENERAL EXAM Nina appears well-developed and well-nourished. Head appears normocephalic. Conjunctivae appear clear. Mucous membranes appear moist. Respirations appear regular and non-labored. Unable to auscultate heart. Abdomen appears soft, flat. Extremities are symmetric with normal joints. Skin appears well-perfused, without neurocutaneous stigmata. NEUROLOGIC EXAM Mental Status: Nina is alert and oriented appropriately for age. She cooperates with exam, engageseasily in conversation and has appropriate affect. She speaks in fluent full sentences and follows complex commands. Cranial nerves: Unable to perform fundoscopic exam remotely. Pupils are equal and round. Extraocular movements are intact. Facial movements are symmetric. Tongue is midline. Palate appears to elevatesymmetrically. Shoulder shrug appears symmetric. Motor: She has full strength in all extremities. Fine finger movements and toe- tapping are symmetric. There is no pronator drift. Sensory: Sensation to light touch was examined by parent and was intact throughout. Coordination: Mhthok-qytj-lyuktq coordination is normal without dysmetria or ataxia. Reflexes: Reflexes deferred. Gait: Gait is narrow-based and normal for age. She can heel-, toe-, and tandem- walk without difficulty. Impression Diagnosis Plan 1. Migraine without aura and without status migrainosus, not intractable 2. Spells of decreased attentiveness EEG Nina is a 20 year old woman with a history of chronic nausea,??headaches, and??anxiety presenting for follow-up of headache and spells.??With headache and associated nausea, this is likely migraine without aura. Her symptoms though are confounded with her chronic GI complaints. Her headaches improved in frequency, length, and severity since transitioning to the topiramate but due to concerns forher going to college and wanting to trial her off of it, this was weaned off over the summer. She has since had worsening frequency of headaches and abdominal pain. We discussed today that if her headache frequency increases that we will likely resume the topiramate. They did not want to start thisyet. Otherwise will continue the daily migrelief. Will continue her as needed abortive plan. Again recommended f/u with psychology (finding a more local provider near her school) and discussing biofeedback in addition to her CBT. Provided headache education/precautions. Her migraine would not explain her BRB in her stool, so recommended discussing GI complaints further with GI. ?? Her??first spell could be concerning for seizure vs syncope vs non-epileptic spell. Also considerednarcolepsy but she has no other features of this. Therefore will plan to obtain a rEEG. Her second spell was witnessed of her reaching for something out of the bed and then falling and hitting her head, with low concern for seizure prompting the fall out of bed. Reviewed seizure precautions and first aid. Plan - Recommended to call if any increased headache frequency and will plan to likely resume the topiramate. - Continue migrelief qD - Abortive plan: Recommended taking ibuprofen as an abortive measure in the morning but can take compazine and benadryl with ibuprofen in the evening (so is not sedated while in school) as needed q6h. - Follow-up with GI and and nutrition - Continue psychology (for CBT) and psychiatry, recommended discussing biofeedback and finding a psychologist near her school - Provided headache education - rEEG scheduled for 1:30pm 09/06 - Discussed seizure precautions and first aid Return in about 3 months (around 12/02/2020). Future Appointments Date Time Provider Department Center 10/24/2020 9:[address] PD GI [facility] PD 12/04/2020 1:00 PM Nehal Riggs, PED [facility] There are no discontinued medications. Orders Placed This Encounter ??? EEG Standing Status: Future Number of Occurrences: 1 Standing Expiration Date: 09/03/2021 Order Specific Question: Procedure performed at: Answer: [facility] Order Specific Question: High Density EEG? Answer: No Order Specific Question: OK to perform at the [facility]? Answer: No, perform at [facility] Order Specific Question: Reason for exam: Answer: Spell of decreased responsiveness while driving Thank you for allowing us to participate in the care of your patient. If you have any questions, feel free to contact me at [phone]. Sincerely, Nehal Riggs DO Pediatric Neurology PGY-4 Cosigned by Tete Downs MD at 09/28/2020 5:58 PM PROPERTY INSURANCE AGENT ERTY INSURANCE AGENT ERTY INSURANCE AGENT Associated attestation - Tete Downs MD - 09/28/2020 5:58 PM PROPERTY INSURANCE AGENT I have seen and examined the patient. I agree with the findings and plan of care as documented in the resident/fellow's note. My total encounter time on 09/28/2020 was 11 minutes which was spent in the activities documented in the note. This includes time spent prior to the visit and after the visit in direct care of the patient. This time does not include time spent in any separately reportable services. documented in this encounter Plan of Treatment Not on file documented as of this encounter Results * EEG (09/06/2020 2:53 PM PROPERTY INSURANCE AGENT) Anatomical Region Laterality Modality EEG Narrative 09/06/2020 3:24 PM PROPERTY INSURANCE AGENT Routine EEG Report Patient Name: Nina Bautista [facility] Medical Record Number (MRN): [id number] [facility] Record: [id number] Date of (): 2000 EEG Date: 09/06/2020 Location: [facility] EEG Ordering Provider: Nehal Riggs DO CC: Johnna Tinajero History (from white goods appliance tech sheet): Nina is a 20 y.o. woman undergoing EEG for evaluation of spells. Medications: Nina has a current medication list which includes the following prescription(s): albuterol hfa, cetirizine, dicyclomine, escitalopram, fluticasone furoate-vilanterol, metoclopramide, norgestimate-ethinyl estradiol, ondansetron, ondansetron odt, prochlorperazine, and rifaximin. EEG technical description: A routine EEG with scalp electrodes was performed using the [employer] monitoring system to record EEG data digitally. [...] Downs MD Attending in Pediatric Epilepsy Nehal Fonsecasharee DO NEUROLOGY ORDERABLES Neris l Result documented in this encounter Visit Diagnoses Diagnosis Migraine without aura and without status migrainosus, not intractable- Primary Spells of decreased attentiveness Spells of decreased attentiveness documented in this encounter Additional Health Concerns Infection Onset Date Last Indicated Resolved Time COVID: Suspected 09/04/2020 09/04/2020 09/04/2020 7:11 PM PROPERTY INSURANCE AGENT Respiratory Infection (JASMINE), contact + droplet Comment:Automatically added due to negative COVID-19 result. 09/04/2020 09/04/2020 09/18/2020 3:0 7 AM PROPERTY INSURANCE AGENT documented as of this encounter Care Teams Sheeting Puller Relationship Specialty Start Date End Date Johnna Tinajero MD [address] [address] PCP - General Pediatrics 07/19/19 01/26/23 Johnna Tinajero MD [address] [address] 07/19/19 documented as of this encounter
--- OUTSIDE RECORDS SUMMARY | 2024-08-28 02:13 | XMS_ITS | Encounter Summary ---
Author Organization [facility] Healthcare Address [address] [place] [address] Care Team Providers Care Aquatic Life Laborer Name Role Phone Johnna Tinajero MD Primary Care Provider + Johnna Tinajero MD Unavailable [phone] Encounter Details Date Type Department Care Team (Late st Contact Info) Description 08/29/2020 8:15 AM AIRCRAFT LOADMASTER SUPERINTENDENT - 08/29/2020 8:30 AM AIRCRAFT LOADMASTER SUPERINTENDENT Surgery [facility] [place] [address] Macy Najera MD 1 [facility] [address] [place] [address] BREATH TEST/HYDROGEN - Lactulose Surgery Details Date/Time Status Location OR Service Patient Class Case Class Case Type Trauma Case? 08/29/2020 8:15 AM Posted [facility] PX [facility] APC NS 1 Gastroenterology Outpatient Elective Panel 1 Procedure LRB Anes Op Region Wound Class Comments BREATH TEST/HYDROGEN - Lactulose N/A None Surgeon Surgeon Role Service Panel Macy Najera MD Primary Gastroenterolo gy 1 documented in this encounter Social History [...] on file Legal Sex 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 AIRCRAFT LOADMASTER SUPERINTENDENT Gender Identity Not on file Sexual Orientation Not on file documented as of this encounter Last Filed Vital Signs Vital Sign Reading Time Taken Comments Blood Pressure 130/90 08/29/2020 8:05 AM AIRCRAFT LOADMASTER SUPERINTENDENT Pulse 91 08/29/2020 8:05 AM AIRCRAFT LOADMASTER SUPERINTENDENT Temperature 36 ??C (96.8 ??F) 08/29/2020 8:05 AM AIRCRAFT LOADMASTER SUPERINTENDENT Respiratory Rate 20 08/29/2020 8:05 AM AIRCRAFT LOADMASTER SUPERINTENDENT Oxygen Saturation - - Inhaled Oxygen Concentration - - Weight 95.5 kg (210 lb 8.6 oz) 08/29/2020 8:05 A M AIRCRAFT LOADMASTER SUPERINTENDENT Height - - Body Mass Index 37.3 08/21/2020 3:17 PM AIRCRAFT LOADMASTER SUPERINTENDENT Body Mass Index Percentile 98.18% 08/29/2020 8:0 5 AM AIRCRAFT LOADMASTER SUPERINTENDENT Growth Chart: [facility] (Girls, 2- 20 Years) documented in this encounter Medications at Time [...] Diagnosis Comments BREATH TEST/HYDROGEN 08/29/2020 8:02 AM AIRCRAFT LOADMASTER SUPERINTENDENT Vomiting without nausea, intractability of vomiting not specified, unspecified vomiting type Abdominal pain documented in this encounter Visit Diagnoses Diagnosis Vomiting without nausea, intractability of vomiting not specified, unspecified vomiting type Abdominal pain Abdominal pain, unspecified site documented in this encounter Admitting Diagnoses Diagnosis Abdominal pain Abdominal pain, unspecified site Vomiting without nausea documented in this encounter Care Teams Aquatic Life Laborer Relationship Specialty Start Date End Date Johnna Tinajero MD [address] [address] PCP - General Pediatrics 07/19/19 01/26/23 Johnna Tinajero MD [address] [address] 07/19/19 documented as of this encounter
--- OUTSIDE RECORDS SUMMARY | 2024-08-28 02:14 | XMS_ITS | Encounter Summary ---
Author Organization [facility] Address [address] [place] [address] Phone Care Team Providers Care Paving Machine Operator Name Role Phone Johnna Tinajero MD Primary Care Provider + Johnna Tinajero MD Unavailable [phone] Reason for Referral * (Routine) - Closed Specialty Diagnoses / Procedures Referred By Asia camp Referred To Contact Diagnoses Vasovagal syncope Procedures Pediatric Event Monitor With Loop Franklin Young MD [facility] (All Locations) Referral ID Status Reason Start Date Expiration Date Visits Re quested Visits Authorized [id number] Closed 11/03/2019 05/14/2021 1 1 Reason for Visit * (Routine) - Closed Specialty Diagnoses / Procedures Referred By Asia camp Referred To Contact Diagnoses Vasovagal syncope Procedures Pediatric Event Monitor With Loop Franklin Young MD [facility] (All Locations) Referral ID Status Reason Start Date Expiration Date Visits Re quested Visits Authorized [id number] Closed 11/03/2019 05/14/2021 1 1 Encounter Details Date Type Department Care Team (Latest Contact Info) Description 11/07/2019 9:51 AM CDT - 11/07/2019 11:59 PM CDT Hospital Encounter [facility] Pediatric Cardiology [facility] [address] [place] [address] Vasovagal syncope Discharge Disposition: Discharge to home or self [...] on file 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 Gender Identity Not on file Sexual Orientation Not on file documented as of this encounter Medications at Time of Discharge albuterol HFA (PROVENTIL HFA,VENTOLIN HFA,PROAIR HFA) 90 mcg/actuation inhaler Inhale 2 puffs every 6 (six) hours as needed for wheezing or shortness of breath norgestimate-eth inyl estradiol (ORTHO TRI-CYCLEN LO) 0.18/0.215/0.25 mg-25 mcg per tablet Take 1 tablet by mouth daily 0 08/17/2019 albuterol (PROVENTIL,AMARILYS JUDI) 1.25 mg/3 mL nebulizer solution Take 1.25 mg by nebulization every 4 (four) hours as needed for wheezing or shortness of breath 0 escitalopram (LEXAPRO) 20 mg tabletIndication s:Anxiety Take 1 tablet (20 mg total) by mouth daily 30 tablet 2 10/13/2019 3 fluticasone furoate-vilanter ol (Breo Ellipta) 100-25 mcg/dose diskus inhaler Inhale 1 puff daily 60 each 09/02/2019 3 nortriptyline (PAMELOR) 10 mg capsule Take 10 mg by mouth every morning 0 nortriptyline (PAMELOR) 10 mg capsule Take 1 capsule (10 mg total) by mouth nightly 30 capsule 1 11/06/2019 0 omeprazole (PriLOSEC) 20 mg capsuleIndicatio ns:Treatment of Non-Bleeding Gastric Disorder Take 1 capsule (20 mg total) by mouth every other day for 7 days For 1 week, then stop taking. 5 capsule 11/06/2019 0 documented as of this encounter Discharge Disposition Disposition Code Departure Means Destination Discharge to home or self care documented in this encounter Plan of Treatment Not on file documented as of this encounter Procedures Procedure Name Priority Date/Time Associated Diagnosis Comments PED MONITOR EPISODE TRACING 11/21/2019 7:45 AM CDT PED MONITOR EPISODE TRACING 11/20/2019 3:17 PM CDT PED MONITOR EPISODE TRACING 11/19/2019 7:24 AM CDT PED MONITOR EPISODE TRACING 11/18/2019 9:39 AM CDT PED MONITOR EPISODE TRACING 11/11/2019 10:45 AM CDT PED MONITOR EPISODE TRACING 11/08/2019 9:11 AM CDT PED EVENT MONITOR W LOOP Routine 11/07/2019 10:12 AM CDT Vasovagal syncope documented in this encounter Results * PED MONITOR EPISODE TRACING (11/21/2019 7:45 AM CDT) Anatomical Region Laterality Modality Other Narrative 11/21/2019 7:46 AM CDT Event Recorder Event Report Patient Name: Nina Coyne Date: 11/21/19 : 2000 Gender: female Referring Physician(s): Franklin Young MD Interpreted By: Jennifer Garza DO Event date: 11/20/2019 Automatic Event Recordings demonstrated: Sinus tachycardia. Interpretation: normal event monitor recordings. us Franklin Young MD [facility] PROCEDU RES Final Result * PED MONITOR EPISODE TRACING (11/20/2019 3:17 PM CDT) Anatomical Region Laterality Modality Other Narrative 11/20/2019 3:17 PM CDT Event Recorder Event Report Patient Name: Nina Coyne Date: 11/20/19 : 2000 Gender: female Referring Physician(s): Franklin Young MD Interpreted By: Jennifer Garza DO Event date: 11/19/2019 Symptomatic events demonstrated: Sinus tachycardia. Events were associated with patient endorsing: None Indicated Automatic Event Recordings demonstrated: Sinus tachycardia. Interpretation: normal event monitor recordings. us Franklin Young MD CV CARDIAC SERVICES PROCEDU RES Final Result * PED MONITOR EPISODE TRACING (11/19/2019 7:24 AM CDT) Anatomical Region Laterality Modality Other Narrative 11/19/2019 7:25 AM CDT Individual Event Monitor Tracing Review Date: 11/18/19 Reported Symptom: Light Headed and Dizzy. Interpretation: sinus tachycardia at 110 bpm Interpreted by: Nick Arreguin MD Franklin Young MD CV CARDIAC SERVICES PROCEDU RES Final Result * PED MONITOR EPISODE TRACING (11/18/2019 9:39 AM CDT) Anatomical Region Laterality Modality Other Narrative 11/18/2019 9:40 AM CDT Event Recorder Event Report Patient Name: Nina Coyne Date: 11/16/2019 : 2000 Gender: female Interpreted By: Madyson Mcmillan MD Symptomatic events demonstrated: Sinus tachycardia. Events were associated with patient endorsing: Light Headed and Dizzy during activity. us Franklin Young MD CV CARDIAC SERVICES PROCEDU RES Final Result * PED MONITOR EPISODE TRACING (11/11/2019 10:45 AM CDT) Anatomical Region Laterality Modality Other Narrative 11/11/2019 10:46 AM CDT Event Recorder Event Report Patient Name: Nina Coyne Date: 11/08/2019 : 2000 Gender: female Interpreted By: Madyson Mcmillan MD Symptomatic events demonstrated: Sinus tachycardia. Events were associated with patient endorsing: Light Headed and Dizzy during activity. Automatic Event Recordings demonstrated: Normal sinus rhythm and Sinus tachycardia. Franklin Young MD CV CARDIAC SERVICES PROCEDU RES Final Result * PED MONITOR EPISODE TRACING (11/08/2019 9:11 AM CDT) Anatomical Region Laterality Modality Other Narrative 11/08/2019 9:12 AM CDT Event Recorder Event Report Patient Name: Nina Coyne Date: 11/08/19 : 2000 Gender: female Referring Physician(s): Franklin Young MD Interpreted By: Jennifer Garza DO Event date: 11/07/2019 Symptomatic events demonstrated: Sinus tachycardia. Events were associated with patient endorsing: Symptom other than listed and Light Headed during rest and activity. Interpretation: normal event monitor recordings. Franklin Young MD CV CARDIAC SERVICES PROCEDU RES Final Result * Pediatric Event Monitor With Loop (11/07/2019 10:12 AM CDT) Anatomical Region Laterality Modality Electrocardiogra phy Narrative 12/08/2019 8:51 AM CDT Event Recorder End of Service Summary Report Patient Name: Nina Coyne Date: 12/08/19 : 2000 Gender: female Referring Physician(s): Franklin Young MD Interpreted By: Jennifer Garza DO Enrollment period: 11/07/2019 - 12/06/2019 Indication: syncope and collapse Symptomatic events demonstrated: Sinus tachycardia. Events were associated with patient endorsing: None Indicated, Symptom other than listed, Light Headed and Dizzy. Automatic Event Recordings demonstrated: Sinus tachycardia. Interpretation: Normal Event monitor recordings. Franklin Young MD CV CARDIAC SERVICES PROCEDU RES Final Result documented in this encounter Visit Diagnoses Diagnosis Vasovagal syncope Syncope and collapse documented in this encounter Care Teams Paving Machine Operator Relationship Specialty Start Date End Date Johnna Tinajero MD [address] [address] PCP - General Pediatrics 07/19/19 01/26/23 Johnna Tinajero MD [address] [address] 07/19/19 documented as of this encounter
--- OUTSIDE RECORDS SUMMARY | 2024-08-28 02:14 | XMS_ITS | Encounter Summary ---
Author Organization [facility] Address [address] [place] [address] Phone Care Team Providers Care Maori Physiotherapist Name Role Phone Johnna Tinajero MD Primary Care Provider + Johnna Tinajero MD Unavailable [phone] Reason for Visit * Reason Onset Date Comments Follow-up 01/18/2020 Encounter Details Date Type Department Care Team (Late st Contact Info) Description 01/18/2020 Telephone [facility] Pediatric Gastroenterology [facility] [address] [place] [address] [place] [address] Florina Colby MD [address] [place] [address] [address] [place] [address] Follow-up Social History Tobacco Use Types Packs/Day [...] on file 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 She is currently off nortriptyline. She has started on Topiramate. This is helping with the headaches. She was sleeping more 3-4 weeks after discharge, but now appears to have more energy. She started working out for 30 minutes in the afternoons. She continues to have epigastric pain. Worse in the morning and before bed. She has decreased PO intake. She has more gas and is burping often. No emesis. She is off the PPI. No improvement when she was on the medication. 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 Recommended diet modifications. In addition, will have her see our shipyard painter helper for further guidance. documented in this encounter Plan of Treatment Not on file documented as of this encounter Visit Diagnoses Not on filedocumented in this encounter Care Teams Maori Physiotherapist Relationship Specialty [place] [address] [place] [address] PCP - General Pediatrics 07/19/19 01/26/23 [place] [address] [place] [address] 07/19/19 documented as of this encounter
--- OUTSIDE RECORDS SUMMARY | 2024-08-28 02:14 | XMS_ITS | Encounter Summary ---
Author Organization [facility] Facility Care Team Providers Care Rawhide Trimmer Name Role Phone Johnna Tinajero MD Primary Care Provider + Johnna Tinajero MD Unavailable [phone] Encounter Details Date Type Department Care Team (Latest Contact Info) Description 11/02/2019 Travel Social History Tobacco Use Types Packs/Day Years Used Date Smoking Tobacco: Never AUDIT-C Answer Date Recorded Q1: How often do you have a drink containing alc ohol? 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
--- OUTSIDE RECORDS SUMMARY | 2024-08-28 02:14 | XMS_ITS | Encounter Summary ---
Author Organization [facility] Address [address] [place] [address] Phone Care Team Providers Care Chief Of Staff Name Role Phone Johnna Tinajero MD Primary Care Provider + Johnna Tinajero MD Unavailable [phone] Reason for Visit * Reason Onset Date Comments Scheduling Appointments 01/19/2020 Encounter Details Date Type Department Care Team (Late st Contact Info) Description 01/19/2020 Telephone [facility] Pediatric Gastroenterology [facility] 2nd [place] [address] [place] [address] Brandee Solorzano, RD 1 [facility] [address] [place] [address] Scheduling Appointments Social History Tobacco [...] on file 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 documented in this encounter Plan of Treatment Not on file documented as of this encounter Visit Diagnoses Not on filedocumented in this encounter Care Teams Chief Of Staff Relationship Specialty Start Date End Date Johnna Tinajero MD [address] [address] PCP - General Pediatrics 07/19/19 01/26/23 Johnna Tinajero MD [address] [address] 07/19/19 documented as of this encounter
--- OUTSIDE RECORDS SUMMARY | 2024-08-28 02:14 | XMS_ITS | Encounter Summary ---
Author Organization [facility] Address [address] [place] [address] Phone Care Team Providers Care Venue Coordinator Name Role Phone Johnna Tinajero MD Primary Care Provider + Johnna Tinajero MD Unavailable [phone] Encounter Details Date Type Department Care Team (Late st Contact Info) Description 11/03/2019 Telephone [facility] Pediatric Neurology [address] [facility] [address] [place] [address] Nehal Riggs, DO [address] [place] [address] Social History Tobacco Use Types [...] on file Legal Sex 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 DIGITAL ANALYST Gender Identity Not on file Sexual Orientation Not on file documented as of this encounter Miscellaneous Notes * Telephone Encounter - Nehal Riggs, DO - 11/03/2019 11:09 AM DIGITAL ANALYST Neurology team was called for Nina Coyne after having concern for IIH vs seizure. Nina is a 19 year old woman with a history of chronic nausea, headaches, and anxiety who presents following a syncopal episode. Per chart review and primary team, she awoke on (11/01) with a headache,but went to school. After school she felt dizzy, sat down in the locker room, and called her mom. After mom arrived she slumped over and passed out and remained unarousable for about 10 minutes (unclear what stim was performed). No abnormal movements were noted or eye deviation. No change in her respiratory pattern. When she became conscious, she had immediately returned to baseline. She complained of nausea and a headache. When EMS arrived she had an elevated blood pressure and a POCT glucose of 68. In ED, CBC, BMP, CXR, troponin normal. ECG in ED reportedly normal. Orthostatic vitals positive for change from supine to standing. She was given a migraine cocktail and 1L NS bolus. ?? Of note, she has had multiple admissions in the past for nausea, vomiting, headache, or syncope. She has had several other syncopal episodes over the past month. She was seen in ED on 10/24 and had anECG with prolonged QTc but an otherwise normal workup. GI had recently increased her nortiptyline for n/v so this was reduced from 40 mg to 30 mg daily. Reportedly her headaches are bifrontal and throbbing. They are not positional. They do not wake her from sleep. With her intractable nausea and vomiting, she was admitted in August and an MRI brain was performed and was normal, ruling out a mass. She had a normal upper endoscopy at that time. Since that time there has been no change in the quality of her headaches or her n/v. She has an upcoming appointment with Dr. Kerr in neurology next week and follows with GI. With the history provided, even though she has risk factors such as obesity and being on an OCP, her headache is not positional which makes IIH very unlikely. There has been no acute change to her headaches. Unable to determine what her syncopal event was at this time but seizure is unlikely based on the description of the episode since it was reportedly witnessed with no abnormal movements notedand after 10 minutes of unconsciousness, she returned right back to baseline. She was found to havepositive orthostatics and a low normal glucose. Since there are no acute neurologic concerns that warrant further work-up at this time as this was likely a vasovagal event and she has a recent normalMRI, we will have her follow-up next week with Dr. Kerr at her outpatient appointment. Would also recommend increasing salt and fluid intake. ?? TAL ANALYST TAL ANALYST TAL ANALYST documented in this encounter Plan of Treatment Not on file documented as of this encounter Visit Diagnoses Not on filedocumented in this encounter Care Teams Venue Coordinator Relationship Specialty Start Date End Date Johnna Tinajero MD [address] [address] PCP - General Pediatrics 07/19/19 01/26/23 Johnna Tinajero MD [address] [address] 07/19/19 documented as of this encounter
--- OUTSIDE RECORDS SUMMARY | 2024-08-28 02:14 | XMS_ITS | Encounter Summary ---
Author Organization [facility] Address [address] [place] [address] [address] [place] [address] Phone Care Team Providers Care Customer Care Professional Name Role Phone Johnna Tinajero MD Primary Care Provider + Johnna Tinajero MD Unavailable [phone] Encounter Details Date Type Department Care Team (Late st Contact Info) Description 12/05/2019 Documentation [facility] [address] [facility] [address] [place] [address] Johnna Tinajero MD [address] [place] [address] [address] [place] [address] Social History Tobacco Use Types [...] on file 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 documented in this encounter Plan of Treatment Not on file documented as of this encounter Visit Diagnoses Not on filedocumented in this encounter Care Teams Customer Care Professional Relationship Specialty Start Date End Date Johnna Tinajero MD [address] [address] PCP - General Pediatrics 07/19/19 01/26/23 Johnna Tinajero MD [address] [address] 07/19/19 documented as of this encounter
--- OUTSIDE RECORDS SUMMARY | 2024-08-28 02:14 | XMS_ITS | Encounter Summary ---
Author Organization [facility] Address [address] [place] [address] [address] [place] [address] Phone Care Team Providers Care Retail Financial Analyst Name Role Phone Johnna Tinajero MD Primary Care Provider + Johnna Tinajero MD Unavailable Encounter Details Date Type Department Care Team (Late st Contact Info) Description 11/14/2019 Telephone [facility] [address] [place] [address] Johnna Tinajero MD [address] [place] [address] [address] [place] [address] Social History Tobacco Use Types [...] on file 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 Tinajero. Thankful. No further questions or concerns at thistime. * Telephone Encounter - Any Syed RN - 11/14/2019 9:30 AM CDT ----- Message from Johnna Tinajero MD sent at 11/14/2019 9:18 AM CDT ----- Please let mom know that the head of pediatric neuroimaging reviewed her brain MRI today and said it is normal. documented in this encounter Plan of Treatment Not on file documented as of this encounter Visit Diagnoses Not on filedocumented in this encounter Care Teams Retail Financial Analyst Relationship Specialty Start Date End Date Johnna Tinajero MD [address] [address] PCP - General Pediatrics 07/19/19 01/26/23 Johnna Tinajero MD [address] [address] 07/19/19 documented as of this encounter
--- OUTSIDE RECORDS SUMMARY | 2024-08-28 02:14 | XMS_ITS | Encounter Summary ---
Author Organization [facility] Healthcare Address [address] [place] [address] Care Team Providers Care Steel Sash Erector Name Role Phone Johnna Tinajero MD Primary Care Provider + Johnna Tinajero MD Unavailable [phone] Reason for Referral * (Routine) - Closed Specialty Diagnoses / Procedures Referred By [place] Referred To Contact Diagnoses Vasovagal syncope Procedures Pediatric Event Monitor With Loop Franklin Young MD [facility] (All Locations) Referral ID Status Reason Start Date Expiration Date Visits Re quested Visits Authorized [id number] Closed 11/03/2019 05/14/2021 1 1 LYST SUPERVISOR Encounter Details Date Type Department Care Team (Late st Contact Info) Description 11/03/2019 Orders Only Pediatric Cardiology Franklin Young MD 1 [facility] [address] [place] [address] Vasovagal syncope (Primary Dx) Social History Tobacco Use Types [...] on file Legal Sex 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 CATALYST SUPERVISOR Gender Identity Not on file Sexual Orientation Not on file documented as of this encounter Progress Notes * Franklin Young MD - 11/03/2019 4:36 PM CST Looping event recorder ordered LYST SUPERVISOR documented in this encounter Plan of Treatment Not on file documented as of this encounter Results * Pediatric Event Monitor With Loop (11/07/2019 [...] in this encounter Visit Diagnoses Diagnosis Vasovagal syncope- Primary Syncope and collapse Vasovagal syncope Syncope and collapse documented in this encounter Care Teams Steel Sash Erector Relationship Specialty Start Date End Date Johnna Tinajero MD [address] [address] PCP - General Pediatrics 07/19/19 01/26/23 Johnna Tinajero MD [address] [facility] [address] [place] [address] 07/19/19 documented as of this encounter
--- OUTSIDE RECORDS SUMMARY | 2024-08-28 02:14 | XMS_ITS | Encounter Summary ---
Author Organization [facility] Address [address] [place] [address] Phone Care Team Providers Care Blood Splatter Analyst Name Role Phone Johnna Tinajero MD Primary Care Provider + Johnna Tinajero MD Unavailable [phone] Reason for Visit * Reason Comments Other DIZZINESS STILL Encounter Details Date Type Department Care Team (Late st Contact Info) Description 10/25/2019 1:45 PM ETL CONSULTANT Office Visit [facility] [address] [facility] [address] [place] [address] Johnna Tinajero MD [address] [place] [address] Vasovagal syncope (Primary Dx); Chronic nausea; Anxiety Social History Tobacco Use Types Packs/Day Years Used Date Smoking Tobacco: Never PHQ-2 Answer Date Recorded PHQ-2 Score 4 06/28/2019 Comments No Sex and Gender Information Value Date Recorded Sex Assigned at Not on file Legal Sex 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 ETL CONSULTANT Gender Identity Not on file Sexual Orientation Not on file documented as of this encounter Last Filed Vital Signs Vital Sign Reading Time Taken Comments Blood Pressure 126/88 10/25/2019 1:38 PM ETL CONSULTANT Pulse - - Temperature 36.8 ??C (98.2 ??F) 10/25/2019 1:38 PM CS T Respiratory Rate - - Oxygen Saturation - - Inhaled Oxygen Concentration - - Weight 100.3 kg (221 lb 1.6 oz) 10/25/2019 1:38 PM ETL CONSULTANT Height - - Body Mass Index - - documented in this encounter Progress Notes * Johnna Tinajero MD - 10/25/2019 1:45 PM CST 10/25/2019 HISTORY OF PRESENT ILLNESS (with pertinent ROS) Nina Coyne is a 19 y.o. female who presents with father Chief Complaint Patient presents with ??? Other DIZZINESS STILL HPI: Seen in ER yesterday/Thursday everning; seen for syncope.Had been feeling dizzy that day. Symptoms attributed to recent increase in nortriptyline to 40 mg daily GI reduced Nortriptyline back to 30 mg. Had increased to 40 mg daily on 10/17. On way to the the hospital felt like it was hard to breath, which resolved at the hospital. . Was there from 11pm-4am yesterday. When it happened went from sitting to standing and sib saw her immediately pass out, sib called to dad in the next room. Was out for 10-15 seconds. Was unresponsive when dad got in the room but came to in a few seconds; was a bit confused when came to . Confusion cleared completely by the time she got to the hospital. Still taking the lexapro. Hasn't been needing albuterol LMP was Sep 29; last 6 days. Haven't vomited much in the last week, maybe 1-2 times in the last week, but still nauseated.has been having headaches. Elimination normal. No abdominal pain. Except pressure right in the middle of abdomen when wakes up but mostly goes away. Continues to miss first hour and sometimes second hour of school, and has missed three full days in the past few weeks. Stays the whole day. Eats whatever but not much; no heartburn. Sleep has been good and some naps when gets home.Dad thinks she sleeps pretty well. 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 Has been able to do those things right after school Anxiety is pretty good, grades good, on track for graduation. Has only two academic classes. Will be going to [employer] and says she is pleased. Supposed to see neurology doctor again in October. Does not have a future GI appt scheduled. Review of Symptoms: Review of systems per HPI and otherwise all other systems are negative PHYSICAL EXAM Vitals: 10/25/19 1338 BP: 126/88 Temp: 36.8 ??C (98.2 ??F) Weight: 100.3 kg (221 lb 1.6 oz) Constitutional: Pt appears well-developed and well-nourished, active, NAD and non-toxic appearance.Weight is stable. Affect is rather flat. Does not appear ill or dehydrated. HR is about 100 HEENT: Eyes: Scleral injection: no; Eye Discharge: no Ears: Right TM normal Left TM normal Nose: . no abnormalities Mouth/Throat: Mucous membranes are moist. Pharynx/Tonsills: no abnormalities Neck: Neck supple without rigidity. No lymphadenopathy Cardiovascular: Normal rate and regular rhythm, without murmur Pulmonary/Chest: normal work of breathing and good air movement Abdominal: Bowel sounds are active, no distension, no tenderness, no rebound and no guarding. No hepatosplenomegaly Neurological: alert. Normal speech. Public Welfare Worker 2-12 intact. Normal strength UEs and LEs. Normal tandem gait and finger nose. Skin: Skin is warm. Capillary refill brisk. No rash noted. ASSESSMENT/PLAN: 1. Vasovagal syncope Discussed; most likely secondary to recent increase in Nortriptyline; agree with reducing to 30 mg daily and watching hydration, care with postural changes, using elevator and not driving till dizziness resolves 2. Chronic nausea Continue the nortriptyline, as it seems to be helping the nausea. Contact GI RE: follow up. 3. Anxiety Continue lexapro. Discussed psychiatry follow up with dad and Nina and they didn't know anything about this Parent/patient instructed to call with concerns, if not improving in 7 days or new symptoms/problems develop. Johnna Tinajero MD CONSULTANT documented in this encounter Plan of Treatment Not on file documented as of this encounter Visit Diagnoses Diagnosis Vasovagal syncope- Primary Syncope and collapse Chronic nausea Nausea alone Anxiety Anxiety state, unspecified documented in this encounter Care Teams Blood Splatter Analyst Relationship Specialty Start Date End Date Johnna Tinajero MD [address] [address] PCP - General Pediatrics 07/19/19 01/26/23 Johnna Tinajero MD [address] [address] 07/19/19 documented as of this encounter
--- OUTSIDE RECORDS SUMMARY | 2024-08-28 02:14 | XMS_ITS | Encounter Summary ---
Author Organization [facility] Address [address] [place] [address] Phone Care Team Providers Care Livestock Brands Inspector Name Role Phone Johnna Tinajero MD Primary Care Provider + Johnna Tinajero MD Unavailable [phone] Encounter Details Date Type Department Care Team (Late st Contact Info) Description 01/31/2020 Telephone [facility] Scheduling Department Brandee Solorzano, RD 1 [facility] [address] [place] [address] Social History Tobacco Use Types Packs/Day Years [...] on file Legal Sex 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 POWER TRANSFORMER INSPECTOR Gender Identity Not on file Sexual Orientation Not on file documented as of this encounter Miscellaneous Notes * Telephone Encounter - Macy Morin RMA - 01/31/2020 2:44 PM CDT Patient scheduled 02/07. I called mom and let her know this will be a Virtual Visit. She wants me tosend the zoom invite the day before the appointment. documented in this encounter Plan of Treatment Not on file documented as of this encounter Visit Diagnoses Not on filedocumented in this encounter Care Teams Livestock Brands Inspector Relationship Specialty Start Date End Date Johnna Tinajero MD [address] [address] PCP - General Pediatrics 07/19/19 01/26/23 Johnna Tinajero MD [address] [address] 07/19/19 documented as of this encounter
--- OUTSIDE RECORDS SUMMARY | 2024-08-28 02:14 | XMS_ITS | Encounter Summary ---
Author Organization [facility] Address [address] [place] [address] Phone Care Team Providers Care Skate Maker Name Role Phone Johnna Tinajero MD Primary Care Provider + Johnna Tinajero MD Unavailable [phone] Reason for Visit * Reason Onset Date Comments migraines 11/10/2019 Encounter Details Date Type Department Care Team (Late st Contact Info) Description 11/10/2019 Telephone [facility] Pediatric Neurology [facility] 2nd [place] [address] [place] [address] Nehal Riggs, DO [address] [place] [address] migraines Social History Tobacco Use Types Packs/Day Years [...] on file 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 30 tablet 2 11/10/2019 2 topiramate (TOPAMAX) 25 mg tablet Take 1 tablet (25 mg total) by mouth nightly 30 tablet 11 11/19/2019 0 documented in this encounter Miscellaneous Notes * Telephone Encounter - Nehal Riggs DO - 11/10/2019 3:54 PM CDT Spoke with Nina's mother. Nina has had worsening of her headaches since weaning off of the nortriptyline. She started migrelief BID on 11/07 and has not yet noticed a difference. I explained to her that it can take several weeks to take effect. Mom informed me that she will be off the nortriptyline on 11/18. Will therefore plan to start Topiramate 25 mg once daily on 11/18 and can increase in 1 week to 50mg if continues to be poorly controlled. I will also send in compazine for her. I recommended taking ibuprofen with zofran as an abortive measure in the morning but can take compazine and benadryl with ibuprofen in the evening (so is not sedated while in school) as needed q6h. Discussed headache prevention/education and recommended against analgesic overuse. Instructed Mom to call me 1 week after starting the topiramate with an update. Mom stated that she understood. She also needs to discuss with Nina's school prior to confirming the possible appointment time that I had offered her in December. Recommended calling with any questions or concerns. Will plan to obtain RFP, CBC, CMP, UA at her follow-up visit with me. * Telephone Encounter - Joshua Garcia CMA - 11/10/2019 2:53 PM CDT Patient mother would like to know if patient can start migraine medication next week , since she isweening off of nortriptyline meds in a couple of days. Mom would like a call back to discuss. documented in this encounter Plan of Treatment Not on file documented as of this encounter Visit Diagnoses Not on filedocumented in this encounter Care Teams Skate Maker Relationship Specialty Start Date End Date Johnna Tinajero MD [address] [address] PCP - General Pediatrics 07/19/19 01/26/23 Johnna Tinajero MD [address] [address] 07/19/19 documented as of this encounter
--- OUTSIDE RECORDS SUMMARY | 2024-08-28 02:14 | XMS_ITS | Encounter Summary ---
Author Organization [facility] Address [address] [place] [address] [address] [place] [address] Phone Care Team Providers Care Tanyard Worker Name Role Phone Jonhna Tinajero MD Primary Care Provider + Johnna Tinajero MD Unavailable [phone] Encounter Details Date Type Department Care Team (Late st Contact Info) Description 11/12/2019 Telephone [facility] [facility] [address] [place] [address] Johnna Tinajero MD [address] [place] [address] [address] [place] [address] Social History Tobacco Use Types [...] on file Legal Sex 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 ALLERGY NURSE Gender Identity Not on file Sexual Orientation Not on file documented as of this encounter Miscellaneous Notes * Telephone Encounter - Johnna Tinajero MD - 11/12/2019 1:24 PM CDT I spoke with mom last night regarding Nina's ongoing daily headaches and intermittent nausea and vomiting and her frustration regarding our lack of understanding for the cause of her symptoms and their persistence and some providers' perceived lack of concern and medication side effects. I agreed that it is very frustrating and understand her and Nina's feelings. Now that school is online only for all of her classmates for the near future, I encouraged her to wean off the Nortriptyline as recommended by neurology so that topirimate can be started, and to take Tylenol and zofran as needed for symptoms (she does not tolerate compazine and benadryl, as they make her sleepy and give her a tremor). I will ask the neuroradiologist to review her previous brain MRI next week, as mom questions whether something was missed. I'll also try to contact neurology. documented in this encounter Plan of Treatment Not on file documented as of this encounter Visit Diagnoses Not on filedocumented in this encounter Care Teams Tanyard Worker Relationship Specialty Start Date End Date Johnna Tinajero MD [address] [address] PCP - General Pediatrics 07/19/19 01/26/23 Johnna Tinajero MD [address] [address] 07/19/19 documented as of this encounter
--- OUTSIDE RECORDS SUMMARY | 2024-08-28 02:14 | XMS_ITS | Encounter Summary ---
Author Organization [facility] Address [address] [place] [address] Phone Care Team Providers Care Snowboarder Name Role Phone Johnna Tinajero MD Primary Care Provider + Johnna Tinajero MD Unavailable [phone] Reason for Visit * Reason Onset Date Comments Letter for School/Work 10/24/2019 Encounter Details Date Type Department Care Team (Late st Contact Info) Description 10/24/2019 Telephone [facility] [address] [facility] [address] [place] [address] Johnna Tinajero MD [address] [place] [address] [address] [place] [address] Letter for School/Work Social History Tobacco Use Types Packs/Day Years Used Date Smoking Tobacco: Never PHQ-2 Answer Date Recorded PHQ-2 Score 4 06/28/2019 Comments No Sex and Gender Information Value Date Recorded Sex Assigned at Not on file Legal Sex 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 SEAT COVER INSTALLER Gender Identity Not on file Sexual Orientation Not on file documented as of this encounter Miscellaneous Notes * Telephone Encounter - Any Syed RN - 10/24/2019 3:36 PM SEAT COVER INSTALLER Mother aware Dr. Tinajero is comfortable witting letter. Letter prepared, signed by Dr. Zabala and faxed to school. COVER INSTALLER * Telephone Encounter - Any Syed RN - 10/24/2019 3:31 PM SEAT COVER INSTALLER ----- Message from Johnna Tinajero MD sent at 10/24/2019 2:12 PM SEAT COVER INSTALLER ----- Regarding: RE: School Letter Contact: Good idea, I agree that she should have a pass. Needs to try to stay hydrated as well ----- Message ----- From: Any Syed RN Sent: 10/24/2019 1:13 PM SEAT COVER INSTALLER To: Johnna Tinajero MD Subject: School Letter Patient was seen in ED at [facility] last night- see note in chart for syncope like episode. Patients Nortriptyline dose was decrease from 40mg to 30mg. Mother is requesting a letter for school for an elevator pass for the rest of this week as a precautionary so patient does not fall down the stairs. Was able to walk up the stairs at home this morning ok. School- [employer], Attn Mandy Bautista. Please respond to triage. COVER INSTALLER documented in this encounter Plan of Treatment Not on file documented as of this encounter Visit Diagnoses Not on filedocumented in this encounter Care Teams Snowboarder Relationship Specialty Start Date End Date Johnna Tinajero MD [address] [address] PCP - General Pediatrics 07/19/19 01/26/23 Johnna Tinajero MD [address] [facility] [address] [place] [address] 07/19/19 documented as of this encounter
--- OUTSIDE RECORDS SUMMARY | 2024-08-28 02:14 | XMS_ITS | Encounter Summary ---
Author Organization [facility] Address [address] [place] [address] [address] [place] [address] Phone Care Team Providers Care Chair Lift Operator Name Role Phone Johnna Tinajero MD Primary Care Provider + Johnna Tinajero MD Unavailable [phone] Reason for Visit * Reason Onset Date Comments Concern about blood pressure 11/01/2019 Encounter Details Date Type Department Care Team (Late st Contact Info) Description 11/01/2019 Telephone [facility] [address] [facility] [address] [place] [address] Johnna Tinajero MD [address] [place] [address] Concern about blood pressure Social History Tobacco Use Types Packs/Day Years Used Date Smoking Tobacco: Never PHQ-2 Answer Date Recorded PHQ-2 Score 4 06/28/2019 Comments No Sex and Gender Information Value Date Recorded Sex Assigned at Not on file Legal Sex 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 PICKER/PULLER Gender Identity Not on file Sexual Orientation Not on file documented as of this encounter Miscellaneous Notes * Telephone Encounter - Deidre Saavedra - 11/01/2019 10:17 AM CST Error ER/PULLER documented in this encounter Plan of Treatment Not on file documented as of this encounter Visit Diagnoses Not on filedocumented in this encounter Care Teams Chair Lift Operator Relationship Specialty Start Date End Date Johnna Tinajero MD [address] [address] PCP - General Pediatrics 07/19/19 01/26/23 Johnna Tinajero MD [address] [address] 07/19/19 documented as of this encounter
--- OUTSIDE RECORDS SUMMARY | 2024-08-28 02:14 | XMS_ITS | Encounter Summary ---
Author Organization [facility] Address [address] [place] [address] [address] [place] [address] Phone Care Team Providers Care Certified Registered Nurse Anesthetist Name Role Phone Johnna Tinajero MD Primary Care Provider + Johnna Tinajero MD Unavailable [phone] Encounter Details Date Type Department Care Team (Late st Contact Info) Description 11/02/2019 Telephone [facility]8 [facility] [address] [place] [address] Johnna Tinajero MD [address] [place] [address] Social History Tobacco Use Types Packs/Day [...] on file Legal Sex 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 LOG CUTTER Gender Identity Not on file Sexual Orientation Not on file documented as of this encounter Miscellaneous Notes * Telephone Encounter - Basilia Dillard RN - 11/02/2019 4:26 PM LOG CUTTER PC from mom, was calling from Nina's school in the locker room to review dizzy symptoms. Nina hadbeen in after school activity when she felt nauseous and went to locker room and called mom. +nausea, +HUANG, +dizziness, feeling fuzzy . Woke with severe HUANG and took tylenol with minimal relief and went to school. Nina in background answering mom's questions, not diaphoretic, no SOB, seated on floor. At 16:15 while on phone with mom Nina slumped onto floor and was not responding to verbal stimuli. Mom confirmed chest rise/breathing, not responding to painful stimuli. In past episodes with mom LOC has lasted for 30 sec or less. This episode lasted longer than one minute and advised mom to hang up and call 911. PC to [facility] as she has had to be seen there recently and may be taken there if stable and regains consciousness. On-call physician and PCP made aware. CUTTER documented in this encounter Plan of Treatment Not on file documented as of this encounter Visit Diagnoses Not on filedocumented in this encounter Care Teams Certified Registered Nurse Anesthetist Relationship Specialty Start Date End Date Johnna Tinajero MD [facility] [address] PCP - General Pediatrics 07/19/19 01/26/23 Johnna Tinajero MD [address] [place] [address] 07/19/19 documented as of this encounter
--- OUTSIDE RECORDS SUMMARY | 2024-08-28 02:14 | XMS_ITS | Encounter Summary ---
Author Organization [facility] Address [address] [place] [address] Phone Care Team Providers Care Press Loader Name Role Phone Johnna Tinajero MD Primary Care Provider + Johnna Tinajero MD Unavailable [phone] Reason for Referral * Diagnostic Imaging (Routine) - Closed Specialty Diagnoses / Procedures Referred By [place] Referred To Contact Diagnoses Abdominal pain, unspecified abdominal location Chronic nausea Procedures Nuclear Medicine gastric emptying Florina Colby MD Phone: tel: fax: [address] [address] Referral ID Status Reason Start Date Expiration Date Visits Re quested Visits Authorized [id number] Closed 10/31/2019 05/11/2021 5 5 GER RESTAURANT Reason for Visit * Reason Onset Date Comments scheduling gastric emptying study 10/24/2019 Encounter Details Date Type Department Care Team (Late st Contact Info) Description 10/24/2019 Telephone [facility] Pediatric Gastroenterology [facility] 2nd [place] [address] [place] [address] Leonor Mahmood MD [address] [place] [address] [address] [place] [address] [phone] (work) scheduling gastric emptying study Social History Tobacco Use Types Packs/Day Years Used Date Smoking Tobacco: Never PHQ-2 Answer Date Recorded PHQ-2 Score 4 06/28/2019 Comments No Sex and Gender Information Value Date Recorded Sex Assigned at Not on file 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 Gender Identity Not on file Sexual Orientation Not on file documented as of this encounter Miscellaneous Notes * Telephone Encounter - Oscar Chambers RN - 10/31/2019 3:58 PM CST Dad contacted radiology directly to schedule GER RESTAURANT * Addendum Note - Oscar Chambers RN - 10/31/2019 11:40 AM CSTAddended by: OSCAR CHAMBERS on: 10/31/2019 11:40 AM Modules accepted: Orders GER RESTAURANT * Telephone Encounter - Oscar Chambers RN - 10/31/2019 11:36 AM CST Order entered in Epic, office will contact family with scheduling details when available GER RESTAURANT * Telephone Encounter - Paty Gray - 10/31/2019 9:37 AM MANAGER RESTAURANT Dad (Franklin) is calling and is wanting to set up a gastric emptying study. GER RESTAURANT * Telephone Encounter - Oscar Chambers RN - 10/28/2019 4:32 PM CST Called mom back They are unsure if they want to proceed with EES trial vs GES (SIDNEY offered both options at visit) reviewed GES with mom, answered all questions She is going to discuss with makeznie and Nina this weekend and will call back Mon with their preference GER RESTAURANT * Telephone Encounter - Patricia Carvajal - 10/28/2019 4:05 PM CST MOM (LANNY) GOT YOUR MESSAGE, HAVE A COUPLE OF QUESTIONS ABOUT GASTRIC EMPTYING STUDY-ASKING FOR CALL BACK [phone]. GER RESTAURANT * Telephone Encounter - Oscar Chambers RN - 10/25/2019 4:50 PM CST Left mom a message with JMS response and recommendation for gastric emptying study Call back to confirm message rec'd, we can get this set up GER RESTAURANT * Telephone Encounter - Maureen Weeks MD - 10/25/2019 2:04 PM MANAGER RESTAURANT Agree with reducing nortriptyline dose. I believe she is being seen by her PMD today. Please proceed with gastric emptying study. GER RESTAURANT * Telephone Encounter - Leonor Mahmood MD - 10/24/2019 7:26 AM MANAGER RESTAURANT Nina was in the ER last night after a syncopal event. EKG normal. She has been having dizziness since increasing her nortriptyline. Recommended decreasing the dose from 40mg to 30mg (last tolerated dose). Family was asking the ER about the gastric emptying study which had been discussed in the past. GER RESTAURANT documented in this encounter Plan of Treatment Not on file documented as of this encounter Results * Nuclear Medicine gastric emptying (11/04/2019 2:30 PM MANAGER RESTAURANT) Anatomical Region Laterality Modality Body N/A Nuclear Medicine 11/04/2019 5:22 PM MANAGER RESTAURANT Impressions 11/04/2019 9:32 PM MANAGER RESTAURANT Normal gastric emptying study. Dictated by: Jeronimo Khalil MD, PHD The radiology attending physician has personally reviewed this study, and had reviewed and/or edited this written report and agrees with it. Electronically signed by: Patricio London M.D. Narrative 11/04/2019 9:32 PM MANAGER RESTAURANT EXAMINATION: GASTRIC EMPTYING STUDY DATE OF STUDY: 11/04/2019 RADIOPHARMACEUTICAL: 0.63 mCi Tc-99m sulfur colloid incorporated into 120 g egg substitute, along with 2 slices toast, 30 g strawberry jam, and 120 mL water p.o. HISTORY: 19-year-old girl presented with epigastric pain and vomiting, concerning for gastroparesis FINDINGS: ??After oral ingestion of the radiolabeled meal, sequential anterior and posterior abdominal images were obtained through 4 hours. There is normal emptying of gastric contents into the intestine. ??The residual gastric activity is 78% of peak activity at 30 minutes, 60% at 1 hour, 17% at 2 hours and 11 minutes, and 2% at 4 hours. ?? Normal limits: The corresponding upper limit values in normal subjects are 100% at 30 minutes, 90% at 1 hour, 60% at 2 hours, and 10% at 4 hours. Procedure Note Patricio London MD - 11/04/2019 EXAMINATION: GASTRIC EMPTYING STUDY DATE OF STUDY: 11/04/2019 RADIOPHARMACEUTICAL: 0.63 mCi Tc-99m sulfur colloid incorporated into 120 g egg substitute, along with 2 slices toast, 30 g strawberry jam, and 120 mL water p.o. HISTORY: 19-year-old girl presented with epigastric pain and vomiting, concerning for gastroparesis FINDINGS: After oral ingestion of the radiolabeled meal, sequential anterior and posterior abdominal images were obtained through 4 hours. There is normal emptying of gastric contents into the intestine. The residual gastric activity is 78% of peak activity at 30 minutes, 60% at 1 hour, 17% at 2 hours and 11 minutes, and 2% at 4 hours. Normal limits: The corresponding upper limit values in normal subjects are 100% at 30 minutes, 90% at 1 hour, 60% at 2 hours, and 10% at 4 hours. IMPRESSION: Normal gastric emptying study. Dictated by: Jeronimo Khalil MD, PHD The radiology attending physician has personally reviewed this study, and had reviewed and/or edited this written report and agrees with it. Electronically signed by: Patricio London M.D. us Florina Colby MD IMG NM PROCEDURES Final Result documented in this encounter Visit Diagnoses Diagnosis Abdominal pain, unspecified abdominal location- Primary Chronic nausea Nausea alone Abdominal pain, unspecified abdominal location Chronic nausea Nausea alone documented in this encounter Care Teams Press Loader Relationship Specialty Start Date End Date Johnna Tinajero MD [address] [address] PCP - General Pediatrics 07/19/19 01/26/23 Johnna Tinajero MD [address] [address] 07/19/19 documented as of this encounter
--- OUTSIDE RECORDS SUMMARY | 2024-08-28 02:14 | XMS_ITS | Encounter Summary ---
Author Organization [facility] Address [address] [place] [address] Phone Care Team Providers Care Washtub Worker Helper Name Role Phone Johnna Tinajero MD Primary Care Provider + Johnna Tinajero MD Unavailable [phone] Reason for Visit * Reason Onset Date Comments scheduling 11/09/2019 Encounter Details Date Type Department Care Team (Late st Contact Info) Description 11/09/2019 Telephone [facility] Pediatric Neurology [facility] 2nd [place] [address] [place] [address] Nehal Riggs, DO [address] [place] [address] scheduling Social History Tobacco Use Types Packs/Day Years [...] on file 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 Patient has finals that's week for school * Telephone Encounter - Joshua Garcia CMA - 11/10/2019 8:59 AM CDT LVM for mom * Telephone Encounter - Nehal Riggs DO - 11/09/2019 4:28 PM CDT Moises Lewis, I think I can fit Nina in on 01/10 at 2pm if they can make that work. If so, let me know and pleasenotify the schedulers. Thank you! * Telephone Encounter - Joshua Garcia CMA - 11/09/2019 10:58 AM CDT Patient mom was transferred from scheduling team. Dr. Riggs wants to see patient in 3 months. Scheduling team stated schedule is completely full. Patient mom would like a sooner appointment documented in this encounter Plan of Treatment Not on file documented as of this encounter Visit Diagnoses Not on filedocumented in this encounter Care Teams Washtub Worker Helper Relationship Specialty Start Date End Date Johnna Tinajero MD [address] [address] PCP - General Pediatrics 07/19/19 01/26/23 Johnna Tinajero MD [address] [address] 07/19/19 documented as of this encounter
--- OUTSIDE RECORDS SUMMARY | 2024-08-28 02:14 | XMS_ITS | Encounter Summary ---
Author Organization [facility] Address [address] [place] [address] [address] [place] [address] Phone Care Team Providers Care Medical Imaging Technologist Name Role Phone Johnna Tinajero MD Primary Care Provider + Johnna Tinajero MD Unavailable [phone] Encounter Details Date Type Department Care Team (Late st Contact Info) Description 11/11/2019 Telephone 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 Tinajero. Letter for school routed to Dr. Tinajero for approval and faxing. * Telephone Encounter - Any Syed RN - 11/11/2019 3:58 PM CDT ----- Message from Johnna Tinajero MD sent at 11/11/2019 3:11 PM CDT ----- Yes, sorry, I will call her before leaving today. We had a long meeting at lunch and it has been very busy today ----- Message ----- From: Madyson Roberts Sent: 11/11/2019 3:03 PM CDT To: Johnna Tinajero MD Mom wants to know if you want to continue with BP checks at school. If yes, then needs order faxed to school. She is getting frequent HUANG's. Please respond to triage Fax: [facility] - [phone] documented in this encounter Plan of Treatment Not on file documented as of this encounter Visit Diagnoses Not on filedocumented in this encounter Care Teams Medical Imaging Technologist Relationship Specialty Start Date End Date Johnna Tinajero MD [address] [address] PCP - General Pediatrics 07/19/19 01/26/23 Johnna Tinajero MD [address] [address] 07/19/19 documented as of this encounter
--- OUTSIDE RECORDS SUMMARY | 2024-08-28 02:14 | XMS_ITS | Encounter Summary ---
Author Organization [facility] Address [address] [facility] [address] [place] [address] Phone Care Team Providers Care Marine Transport Professionals Name Role Phone Johnna Tinajero MD Primary Care Provider + Johnna Tinajero MD Unavailable [phone] Reason for Visit * Reason Onset Date Comments Pt call 11/10/2019 Encounter Details Date Type Department Care Team (Late st Contact Info) Description 11/10/2019 Telephone [facility] Pediatric Neurology [facility] 2nd [place] [address] [place] [address] Madyson Kerr MD PhD [address] [facility] [place] [place] [phone] [place] [address] Pt call Social History Tobacco Use Types Packs/Day Years [...] on file 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 Thank you! * Telephone Encounter - Madyson Kerr MD PhD - 11/10/2019 2:36 PM CDT This patient will be followed by Nehal Riggs, who met her inpatient. Follow up appt scheduling ispending. Nehal, can you address mom's question? * Telephone Encounter - Good Dozier RN - 11/10/2019 1:08 PM CDT As we have not yet seen this patient - how would you like to proceed, Happy to help - let me know! * Telephone Encounter - Basilia Aggarwal ST - 11/10/2019 12:00 PM CDT MomNahun calling to ask if we would be okay with starting her migraine medication next week since she will be on the low dose of Nortriptyline (currently on 20mg will wean down to 10mg every day next week) given increased HUANG's. documented in this encounter Plan of Treatment Not on file documented as of this encounter Visit Diagnoses Not on filedocumented in this encounter Care Teams Marine Transport Professionals Relationship Specialty Start Date End Date Johnna Tinajero MD [address] [address] PCP - General Pediatrics 07/19/19 01/26/23 Johnna Tinajero MD [address] [place] [address] 07/19/19 documented as of this encounter
--- OUTSIDE RECORDS SUMMARY | 2024-08-28 02:14 | XMS_ITS | Encounter Summary ---
Author Organization [facility] Healthcare Address [address] [place] [address] Care Team Providers Care [employer] Administrator Name Role Phone Kay Tinajero MD Primary Care Provider + Kay Tinajero MD Unavailable [phone] Reason for Visit * Reason Comments Syncope Encounter Details Date Type Department Care Team (Late st Contact Info) Description 11/02/2019 9:27 PM CONTAINER FILLER - 11/06/2019 3:00 PM CDT Hospital Encounter [facility] [address] [place] [address] Grazyna Capps MD [address] [address] Elpidio Gimenez MD 1 [facility] [address] [place] [address] Fernando Posey MD [address] [address] Pao Allred MD 1 [facility] [address] [place] [id number] Syncope, unspecified syncope type (Primary Dx); Nausea Discharge Disposition: Discharge to home or self [...] on file Legal Sex 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 CONTAINER FILLER Gender Identity Not on file Sexual Orientation Not on file documented as of this encounter Last Filed Vital Signs Vital Sign Reading Time Taken Comments Blood Pressure 116/75 11/06/2019 12:29 PM CDT Pulse 92 11/06/2019 12:29 PM CDT Temperature 36.4 ??C (97.5 ??F) 11/06/2019 1 2:29 PM CDT Respiratory Rate 20 11/06/2019 12:2 9 PM CDT Oxygen Saturation 95% 11/06/2019 12: 29 PM CDT Inhaled Oxygen Concentration - - Weight 99.6 kg (219 lb 9.3 oz) 11/03/19 20 12:20 AM CONTAINER FILLER Height 163 cm (5' 4.17 ) 11/03/2019 12: 20 AM CONTAINER FILLER Body Mass Index 37.49 11/03/2019 12:20 AM CONTAINER FILLER Body Mass Index Percentile 98.53% 11/02 12:20 AM CONTAINER FILLER Growth Chart: [facility] (Girls, 2- 20 Years) documented in this encounter Discharge Diagnoses Diagnosis Syncope and collapse - SYNCOPE AND COLLAPSE Migraine without aura, not intractable, without status migrainosus - MIGRAINE WITHOUT AURA, NOT INTRACTABLE, WITHOUT STATUS MIGRAINOSUS Obesity, unspecified - OBESITY, UNSPECIFIED Moderate persistent asthma, uncomplicated - MODERATE PERSISTENT ASTHMA, UNCOMPLICATED Anxiety disorder, unspecified - ANXIETY DISORDER, UNSPECIFIED 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 - [facility] (CURRENT) USE OF INHALED STEROIDS 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 therapy - OTHER NEEDLE GRINDER (CURRENT) DRUG THERAPY Irregular menstruation, unspecified - IRREGULAR MENSTRUATION, UNSPECIFIED Other chronic pain - OTHER CHRONIC PAIN Cyclical vomiting syndrome unrelated to migraine - CYCLICAL VOMITING SYNDROME UNRELATED TO MIGRAINE Body mass index (bmi) pediatric, greater than or equal to 95th percentile for age - BODY MASS INDEX (BMI) PEDIATRIC, GREATER THAN OR EQUAL TO 95TH PERCENTILE FOR AGE documented in this encounter Discharge Summaries * Pao Allred MD - 11/06/2019 2:02 PM CDT Inpatient Discharge Summary BRIEF OVERVIEW Admitting Provider: Elpidio Gimenez MD Discharge Provider: Pao Allred MD Primary Care Physician at Discharge: Kay Tinajero MD [phone] Admission Date: 11/02/2019 Discharge Date: 11/06/2019 Admission Location: [facility] Chief Complaint: Syncope Hospital Problems/Diagnoses: Principal Problem: Vasovagal syncope Active Problems: Migraine headache Chronic nausea Resolved Problems: No resolved hospital problems. DETAILS OF HOSPITAL STAY Presenting Problem/History of Present Illness: Nina is a 19 year old woman with a history of chronic nausea, headaches, and anxiety who presents following a syncopal episode. On the day of admission (11/01) she woke up with a headache, but went toschool and was feeling ok throughout the day. After school she was about to go to dance practice when she started to feel off and dizzy. She sat down in the locker room and called her mom. After mom a rrived she slumped over and passed out and remained unarousable for about 10 minutes before awakening with nausea and a headache, but return to baseline mental status. She had no abnormal movement during this episode and was breathing regularly throughout. When EMS arrived she had an elevated blood pressure and a POCT glucose of 68. In ED waiting room she had another episode that was briefer. CBC, BMP, CXR, troponin normal. ECG in ED reportedly normal. Orthostatic vitals positive for change from supine to standing. She was given a migraine cocktail and 1L NS bolus and her headache ?? She has had several other syncopal episodes over the past month. She was seen in ED on 10/24 and hadan ECG with prolonged QTc but an otherwise normal workup. She had recently increased her nortiptyline dose so this was reduced from 40 mg to 30 mg daily. ?? Denies chest pain, confusion, numbness, vision changes, decreased appetite or intake. Her nausea and vomiting have been better controlled since her admission in August but has vomited as recently asMonday. She endorses abdominal discomfort and pressure on waking that improves throughout the day. Headaches are occipital and frontal and described as a dull pounding or whooshing. They do not respond to ibuprofen or tylenol. She was admitted to [facility] in August for intractable vomiting and had anormal Upper endoscopy and brain MRI. She was followed by GI and has an upcoming neurology appointment here. Hospital Course: Nausea/emesis: GI was consulted as she was scheduled to have a Gastric emptying study (GES) on 11/03 and the onset of episodes seemed to be around the same time her nortriptyline was increased. GES waspreformed on 11/03 and was normal. They felt her vomiting was likely functional in nature and feel she would benefit from following with the Functional Abdominal Pain clinic. They recommended decreasing Nortrytilline to 10mg twice daily for one week, then 10 mg daily for one week then stopping. They aslo recommended weaning off of her PPI. She should take omerpazole every other day for 1 week; thenstop. She will follow up with GI as an outpatient. Her emesis improved and she was taking good PO without any emesis. She did complain of some nausea but was able to eat well despite the nausea. Vasovagal syncope: On admission, she had no further episodes of loss of consciousness, but did continue to have headaches. Cardiology was consulted and felt her fainting spell was unlikely to be an arrhythmia due to prodromal symptoms. They felt this was more likely a vasovagal episode, but would like to have her wear a 30 day monitor and follow up as an outpatient. Neurology was also consulted and they felt that her syncopal episodes were not c/w seizures based on the description of the episode with her having aprodrome consistent with vasovagal syncope, she had??no abnormal movements noted,??and after 10 minutes of unconsciousness, she returned right back to baseline. Cardiology recommended that she drink plenty of fluids. Migraine: Neurology evaluated her for he headaches. AN LP was performed to assess her opening pressure and it was 27. They felt that her HUANG were not due to idiopathic intracranial hypertension (IIH).Even though she??has risk factors for IIH??such as obesity and being on an OCP, her headache??worsens with sitting up??and on fundoscopy has clear margins of her discs??which makes IIH unlikely with her having these symptoms for several months.Her OP of 27 can be WNL for her body habitus and her headache actually worsened after the LP was performed.??There has been no acute change to her headaches and we have a recent MRI which would rule out other causes such as NMOSD which can be associated with frequent emesis or a mass with increased ICP. With headache and associated vision changes, photophobia, phonophobia, n/v, this is likely migraine without aura and they recommended trialing a migraine cocktail of Benadryl, Compazine and Toradol. She received a migraine cocktail consisting of toradol, compazine, and benadryl every 6 hours x3 with resolution of her headache. She had no HUANG on the day of discharge. She will follow up with neurology as an outpatient and will start Topiramate for migraine prophylaxis once nortriptyline is fully weaned off. At the time of discharge, she was tolerating PO intake, headaches was well controlled, and there were no symptoms of syncope or pre-syncope. Anxiety/Coping with chronic pain: Psychology was consulted. Their recommendations are: 1. Continue outpatient therapy to address anxiety and coping with chronic pain. Nina may also benefit from follow up outpatient consultation with a member of the [facility] Pediatric Psychology team in the future to address her chronic pain and return to function goals. ?? 2. Continue pharmacotherapy (Lexapro) with primary doctor for managing anxiety. ?? 3. Referred to the [facility] Comfortability pain management workshop. Flyer given to family.. ?? 4. Recommend the following strategies for coping with pain and other physical symptoms: ?? ? Take frequent short breaks while completing school work and other responsibilities to eat, drink,and/or walk around. ? Limit daytime naps to 60 minutes and work toward no daytime sleeping.?? ? Limit attention given to pain and other physical symptoms, as increased attention may increase anxiety and can also contribute to ineffective coping behaviors. ? Continue to implement distraction for adaptive coping. Preferred activities may include watching the [employer] or [employer], text messaging with a friend, and spending time with a friend. ? Implement relaxation techniques for coping with pain and other physical symptoms: ?? Diaphragmatic breathing - recommended for coping with nausea ?? Guided imagery ?? Progressive muscle relaxation Active Issues Requiring Follow-up: None Test Results Pending at Discharge: Pending Labs Order Current Status Homovanillic acid, urine, random In process VMA, urine, random In process Operative Procedures Performed: None Other Procedures: None Pertinent Test Results: Gastric emptying study 11/04/2019: normal Lumbar puncture 11/04/2019: opening pressure 27 (normal for age and weight). Discharge Details Physical Exam at Discharge: Discharge Condition: good Pulse: 88 Resp: 20 BP: 106/70 Temp: 36.5 ??C (97.7 ??F) Weight: 99.6 kg (219 lb 9.3 oz) Physical Exam: General:well appearing, cooperative, no acute distress and asleep Lungs:clear to auscultation bilaterally, normal WOB and good air movement Heart:regular rate and rhythm, normal S1 and S2 and no murmur, rubs, or gallops Abdomen:soft, non-tender, non-distended, bowel sounds present, no masses and no organomegaly Pulses:2+ pulses and symmetric Skin:no rashes or lesions and no jaundice Neurologic: face symmetric, awake, alert, no focal deficits. Patient able to ambulate. Discharge Disposition: Patient going to home Code Status at Discharge: Full Discharge Instructions: Activity Instructions Post-Discharge activity: May return to school / daycare / usual activities Diet Instructions Pediatric Discharge Diet Diet Type: Other (see comments) Drink water and milk as usual beverage. Limit juice and sweetened beverages. Eat breakfast every morning and aim for 5 fruits and vegetables each day. Limit fast food to 1-2 times per week. Be activeevery day and limit screen time to 2 hours or less each day. Other Instructions Provider to Notify Please call your event planning intern, Kay Tinajero MD, at [phone] for any of the following: persistent fevers (temperature greater than 38C or 100.4F), refusing to drink or not tolerating fluids, decreased urine output, diarrhea or vomiting, pain or increased fussiness, or any other concerns. Seek medical care immediately for any of the following: difficulty breathing, difficulty arousing from sleep, severe pain, blood in vomit or stool, or any other major concerns. Please call 911 for any medical emergency. Summary of care She was evaluated by cardiology, and neurology due to headaches and episodes of loss of consciousness. It was felt that her loss of consciousness was attributable to vasovagal syncope and headaches were attributable to migraines. To rule out possible arrhythmias, cardiology would like to have her wear a 30day monitor and follow up as an outpatient. She had an LP on 11/03 which was normal for her age and weight. She received a migraine cocktail consisting of toradol, compazine, and benadryl every 6 hours with resolution of her headache. She will follow up with neurology as an outpatient and willstart Topiramate for migraine prophylaxis once nortriptyline is fully weaned off. She had a gastricemptying study that was normal. GI was consulted and recommended decreasing Nortrytilline to 10mg twice daily for one week, then 10 mg daily for one week then stopping. They aslo recommended weaning off of her PPI. She should take omerpazole every other day for 1 week; then stop. If epigastric painthan restart daily.She was also seen by psychology and they recommend continued follow up. At the time of discharge, she was tolerating PO intake, headaches was well controlled, and there were no symptoms of syncope or pre-syncope. Discharge Medications: Current Medications TAKE these medications * albuterol 1.25 mg/3 mL nebulizer solution Take 1.25 mg by nebulization every 4 (four) hours as needed for wheezing or shortness of breath * albuterol HFA 90 mcg/actuation inhaler Inhale 2 puffs every 6 hours as needed for wheezing or shortness of breath Commonly known as: PROVENTIL HFA,VENTOLIN HFA,PROAIR HFA escitalopram 20 mg tablet Take 1 tablet (20 mg total) by mouth daily Commonly known as: LEXAPRO fluticasone furoate-vilanteroL 100-25 mcg/dose diskus inhaler Inhale 1 puff daily Commonly known as: Breo Ellipta norgestimate-ethinyl estradioL 0.18/0.215/0.25 mg-25 mcg per tablet Take 1 tablet by mouth daily Commonly known as: ORTHO TRI-CYCLEN LO * nortriptyline 10 mg capsule Take 10 mg by mouth every morning Commonly known as: PAMELOR * nortriptyline 10 mg capsule Take 1 capsule (10 mg total) by mouth nightly Commonly known as: PAMELOR omeprazole 20 mg capsule Take 1 capsule (20 mg total) by mouth every other day for 7 days For 1 week, then stop taking. For: Treatment of Non-Bleeding Gastric Disorder Commonly known as: PriLOSEC * This list has 4 medication(s) that are the same as other medications prescribed for you. Read the directions carefully, and ask your doctor or other care provider to review them with you. Outpatient Follow-Up: Future Appointments Date Time Provider Department Center 11/10/2019 1:00 PM Madyson Kerr MD PhD [facility] Contact Information for Follow-ups Kay Tinajero MD Specialty: Pediatrics Relationship: PCP - General [address] [place] [id number] Next Steps: Follow up Instructions: within 1 week. Questions: To provider: KAY TINAJERO Instructions for follow-up (appointment date and time): within 1 week. Process Instructions: The follow up with provider order should be used to give patients instructions to follow up with an established provider. A referral order should be placed to instruct patients to follow up with a new, non- established provider. If you can???t find the provider, please use: MISCELLANEOUS, NOTINFILE and put the name in the comments. I have seen and examined the patient on 11/06/19. I agree with the findings and plan of care as documented in the resident's/fellow's note. and I saw and examined the patient on 11/06/19. I spent 35 minutes on discharge planning activities. Time spent was on Counselling with patient/family, dischargeexam and parent/patient education. Pao Allred MD documented in this encounter Discharge Instructions * Discharge Instructions* Ashley Gallo MD - 11/06/2019 2:40 PM CDT -- Follow up with neurology as an outpatient. Contact them once you have finished weaning off Nortriptyline in order to start Topiramate for migraine prophylaxis. -- Take 10mg Nortriptyline twice daily for one week, then 10 mg daily for one week, then stop taking. -- Take omerpazole every other day for 1 week; then stop. --Continue outpatient follow up with therapy and counseling services. Cardiology - 30 day looping event recorder after discharge home - Cardiology clinic: [phone] - Cardiology follow up in 6-8 weeks. - Advised patient and mother to increase fluid intake until urine is clear. - Recommend isometric exercises when feeling prodrome or prior to standing. Migraine & Headaches - Recommend limiting or [...] be given several weeks to see effect. Take daily or up to twice per day. Do not discontinue suddenly. - Consider keeping a headache diary or using the Migraine [employer] kaden to improve understanding of personal headache patterns. - Check out [email or web address] - Please call the Pediatric Neurology office at [phone] Riggs of worsening migraine or missed school due to migraine symptoms. Follow- up in [address] Riggs. documented in this encounter Medications at Time [...] 11/06/2019 0 documented as of this encounter Ordered Prescriptions Prescription Sig Dispense Quantity Refills Last Filled Start Date End Date omeprazole (PriLOSEC) 20 mg capsuleIndications :Treatment of Non-Bleeding Gastric Disorder Take 1 capsule (20 mg total) by mouth every other day for 7 days For 1 week, then stop taking. 5 capsule 11/06/2019 0 nortriptyline (PAMELOR) 10 mg capsule Take 1 capsule (10 mg total) by mouth nightly 30 capsule 1 11/06/2019 0 documented in this encounter Discharge Disposition Disposition Code Departure Means Destination Discharge to home or self care documented in this encounter Progress Notes * Sera Gonzalez MD - 11/06/2019 10:30 AM CDT Pediatric Daily Progress Subjective Chief complaint of loss of counciousness. Interval History: Nina received 3 migraine cocktails (toradol, compazine, and bendadryl) yesterday. She slept well overnight. PT met with family yesterday. During PT she was able to complete short bouts of movement prior to needing a rest break. Ambulates to hallway and back with intermittent HHAand decreased renay. Reports dizziness upon moving to sit and sit to stand, that resolves after about 30 seconds. See note by Vicki Javier PT for more details. This morning she denies headache. She was able to tolerate PO intake without emesis. Objective Vitals: Vitals 24 hour ranges: Temp: [36.4 ??C (97.5 ??F)-37.1 ??C (98.8 ??F)] Pulse: [88-102] Resp: [17-23] BP: (106-122)/(70-85) I/O last 2 completed shifts: In: 1449 [P.O.:830; I.V.:619] Out: 1650 [Urine:1650] I/O this shift: In: 0 Out: 100 [Urine:100] Physical Exam: General:well appearing, cooperative, no acute distress and asleep Lungs:clear to auscultation bilaterally, normal WOB and good air movement Heart:regular rate and rhythm, normal S1 and S2 and no murmur, rubs, or gallops Abdomen:soft, non-tender, non-distended, bowel sounds present, no masses and no organomegaly Pulses:2+ pulses and symmetric Skin:no rashes or lesions and no jaundice Neurologic:face symmetric and sleeping Lab/Radiology/Diagnostic Review: Laboratory review: Lab results in the last 24 hours: No results found for this or any previous visit (from the past 24 hour(s)). Assessment/Plan Chronic nausea Assessment & Plan GI was consulted as she was scheduled to have a GES today and there was some onset around the same time her nortriptyline was increased. They feel her vomiting is likely functional in nature and feelshe would benefit from following with the Functional Abdominal Pain clinic. If we do think these current symptoms are related to her nortriptyline, they recommended decreasing to 20mg. Psychology hasseen her and recommend continued follow up. Gastric emptying study was normal. Plan: - decrease home nortriptyline to 10 mg morning, 10 mg night per GI recommendations. - Continue home lexapro 20 mg - Referral to Functional Ab[facility] Pain Clinic Migraine headache Assessment & Plan Patient with daily headaches for the past [...] therapy recommended. -- outpatient follow-up with Neurology. * Vasovagal syncope Assessment & Plan Nina presented following several syncopal episodes lasting seconds to minutes. Preceded by prodrome of dizziness, feeling off, headaches, sometimes nausea. No seizure-like activity, apnea, chest pain during episodes. Workup largely reassuring, including normal Brain MRI from previous admission. EMS glucose 68. Positive orthostatic changes in ED. ECG on 10/24 with prolonged QTc. Exam unremarkable,no focal neurologic deficits. Given rapid onset with prodrome and rapid recovery to baseline, presentation seems consistent with vasovagal syncope. Cardiology has also seen and agree that this is themost likely cause, but would like to have [...] Cardiology, and GI recommendations - PT consult Cosigned by Pao Allred MD at 11/06/2019 6:51 PM CDT Associated attestation - Pao Allred MD - 11/06/2019 6:51 PM CDT I have seen and examined the patient on 11/06/19. I agree with the findings and plan of care as documented in the resident's/fellow's note. * Sera Gonzalez MD - 11/05/2019 2:27 PM CST Pediatric Daily Progress Subjective Chief complaint of loss of counciousness. Interval History: Nnia slept well overnight. This morning she endorses headache, that is worse when she sits up or stands. She was able to tolerate dinner last night without emesis. Objective Vitals: Vitals 24 hour ranges: Temp: [36.4 ??C (97.5 ??F)-36.9 ??C (98.4 ??F)] Pulse: [85-102] Resp: [14-23] BP: (108-122)/(64-92) I/O last 2 completed shifts: In: 3510.05 [P.O.:700; I.V.:2810.05] Out: 2950 [Urine:2950] I/O this shift: In: 749 [P.O.:130; I.V.:619] Out: 1450 [Urine:1450] Physical Exam: General:well appearing, cooperative, no acute distress and asleep Lungs:clear to auscultation bilaterally, normal WOB and good air movement Heart:regular rate and rhythm, normal S1 and S2 and no murmur, rubs, or gallops Abdomen:soft, non-tender, non-distended, bowel sounds present, no masses and no organomegaly Pulses:2+ pulses and symmetric Skin:no rashes or lesions and no jaundice Neurologic:face symmetric and sleeping Lab/Radiology/Diagnostic Review: Laboratory review: Lab results in the last 24 hours: Recent Results (from the past 24 hour(s)) Cortisol Collection Time: 11/05/19 8:28 AM Result Value Ref Range Cortisol 20.2 (H) 4.8 - 19.5 mcg/dL Assessment/Plan Chronic nausea Assessment & Plan GI was consulted as she was scheduled to have a GES today and there was some onset around the same time her nortriptyline was increased. They feel her vomiting is likely functional in nature and feelshe would benefit from following with the Functional Abdominal Pain clinic. If we do think these current symptoms are related to her nortriptyline, they recommended decreasing to 20mg. Psychology hasseen her and recommend continued follow up. Gastric emptying study was normal. Plan: - decrease home nortriptyline to 10 mg morning, 10 mg night per GI recommendations. - Continue home lexapro 20 mg - Referral to Functional [facility] Pain Clinic Migraine headache Assessment & Plan Patient with daily headaches for the past [...] therapy recommended. -- outpatient follow-up with Neurology. * Vasovagal syncope Assessment & Plan Nina presented following several syncopal episodes lasting seconds to minutes. Preceded by prodrome of dizziness, feeling off, headaches, sometimes nausea. No seizure-like activity, apnea, chest pain during episodes. Workup largely reassuring, including normal Brain MRI from previous admission. EMS glucose 68. Positive orthostatic changes in ED. ECG on 10/24 with prolonged QTc. Exam unremarkable,no focal neurologic deficits. Given rapid onset with prodrome and rapid recovery to baseline, presentation seems consistent with vasovagal syncope. Cardiology has also seen and agree that this is themost likely cause, but would like to have [...] - PT consult for isometric exercise teaching Cosigned by Pao Allred MD at 11/05/2019 7:59 PM CONTAINER FILLER AINER FILLER AINER FILLER Associated attestation - Pao Allred MD - 11/05/2019 7:59 PM CONTAINER FILLER I have seen and examined the patient on 11/05/19. I agree with the findings and plan of care as documented in the resident's/fellow's note. * Vicki Javier, PT - 11/05/2019 2:17 PM CST Physical Therapy Physical Therapy Initial Assessment Patient Name: Nina Coyne Today's Date: 11/05/2019 Patient Active Problem List Diagnosis ??? Migraine headache ??? Obesity ??? Asthma, moderate persistent, well-controlled ??? Abnormal electrocardiography ??? Dander (animal) allergy ??? Vitamin D deficiency ??? Irregular menses ??? Abdominal pain ??? Asthma ??? Anxiety ??? Chronic nausea ??? Mild malnutrition (CMS/HCC) ??? Fainting spell Past Medical History: Diagnosis Date ??? Abdominal pain 07/20/2019 ??? Abnormal electrocardiography 01/19/2017 Annotation: Saw cardiology 2016 and was cleared, repeat 08/25/19 Normal sinus rhythm with sinus arrhythmia with short OK ??? Anxiety 07/20/2019 ??? Asthma ??? Nausea 08/15/2019 ??? Vomiting multiple times per week Past Surgical History: Procedure Laterality Date ??? LUMBAR PUNCTURE WO INJECTION, THERAPEUTIC N/A 11/04/2019 ??? WRIST SURGERY 11/05/19 1230 General Chart Reviewed Yes Session Type Evaluation PT Received On 11/05/19 Safe Environment Arm Band Checked;Notified RN Subjective Agreeable to Therapy Subjective Comment Nina states she has been feeling a little bit off balance with activities and her head is currently hurting. Family/Caregiver Present Yes Current Functional Status PT Functional Mobility Prior to onset of LOC, Nina was independent with all ADLs, ambulation, and WNL of activity level for her age. Precautions Precautions Fall risk Home Living Type of Home House Home Layout Multi-level;Stairs with rails # of Steps-Railed 14 Home Access Stairs to enter without rails Entrance Stairs-Rails None Entrance Stairs-Number of Steps 1+1 in front or 3 in garage Prior Function Level of [place] Independent with ADLs Lives With Family School Type Public Pain Assessment Pain Score 5 - Moderate pain Pain Location Head Pain Descriptors Headache Cognition Overall Cognitive Status WFL Motor Planning Motor Planning Appears intact Coordination Movements are Fluid and Coordinated 1 Endurance Deficit Endurance Deficit Yes Endurance Deficit Description Tolerates less than 15 minutes of activity with multiple rest breaks Balance Balance Yes Static Standing Balance Static Standing-Balance Support Left upper extremity supported (intermittent) Static Standing-Standing Surface Floor Static Standing-Level of Assistance Close supervision;Contact guard Static Standing-Comment/# of Minutes SLS maintained 10 seconds each leg, tandem stance 10 seconds each direction Bed Mobility Bed Mobility Yes Bed Mobility 1 Bed Mobility From 1 Supine Bed Mobility Type 1 To and from Bed Mobility to 1 Edge of bed Level of Assistance 1 Independent Bed Mobility Comments 1 Reports dizziness upon coming to sit Transfers Transfer Yes Transfer 1 Transfer From 1 Bed Transfer Type 1 To and from Transfer to 1 Stand Transfer Device 1 No device Transfer Level of Assistance 1 Contact Guard Assist Trials/Comments 1 Reports dizziness upon coming to stand Ambulation Ambulation Yes Ambulation 1 Distance (ft) 1 25 Surface 1 Level tile Device 1 Hand held assist Assistance 1 Contact Guard Assist Gait: Requires assist with 1 Maintaining balance Quality of Gait 1 Decreased renay, decreased step length RLE Assessment RLE Assessment WFL LLE Assessment LLE Assessment WFL Other Comments Other PT Comments Patient is a 19 YO female with c/o multiple LOC. Currently complains of headache and dizziness with positional changes. Able to complete short bouts of movement prior to needing a rest break. 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 Reports dizziness upon moving to sit and sit to stand, that resolves after about 30 seconds. Assessment Prognosis Good Problem List Gait deviations;Decreased strength;Decreased endurance;Impaired balance;Pain Plan Plan Plan of care initiated;If this is the last note, consider this the discharge summary Recommendation/Plan PT Recommendation/Plan Home with family PT Frequency 3-5x/wk Treatment/Interventions Balance Training;Endurance training;Gait training;Parent/caregiver trainingand education;Stair training;Strengthening PT Evaluation Complete Yes PT Goals Multi-Disciplinary Problems (from Physical Therapy) Active Problems Problem: Lack of Knowledge: Start Date: -- Goal Start Date End Date Verbalization of understanding the information provided will improve 11/05/19 -- Goal Details: - Mobility Training - Home Exercise Program - Body Mechanics - Energy Conservation Problem: Mobility Start Date: 11/05/19 Goal Start Date End Date LTG - Patient will ambulate community distance 11/05/19 -- Goal Details: Independently Goal Start Date End Date STG - Patient will ascend and descend 2 stairs with the following level of assist: 11/05/19 -- Goal Details: With [facility]BA AINER FILLER * Oneil Nehalelsie Cotto, DO - 11/05/2019 1:39 PM CST Pediatric Neurology Progress Consulting Note Subjective Chief complaint: Nina is a 19 year old woman with a history of chronic nausea,??headaches, and??anxiety who presents following a syncopal episode with continued headache, nausea, vomiting. ?? Interval History: Continues to have headache. Denies blurry vision. Complains that pain is worse with sitting up. Continues to note nausea and vomiting, not abdominal pain. Migraine cocktail has not yet been trialed. Gastric emptying study had returned as normal. GI planning to wean off nortriptyline. Psychology is also following. Current Facility-Administered Medications: ??? acetaminophen (TYLENOL) tablet 650 mg, 650 mg, oral, Q6H PRN, Arnoldo Esposito MD, 650 mgat 11/04/191816 ??? escitalopram (LEXAPRO) tablet 20 mg, 20 mg, oral, Nightly, Viktor Villagomez MD, 20 mgat 11/04/192139 ??? fluticasone furoate-vilanteroL (BREO ELLIPTA) 100-25 mcg/dose inhaler 1 puff, 1 puff, inhalation, Nightly, Viktor Villagomez MD, 1 puff at 11/04/192138 ??? ketorolac (TORADOL) 15 mg/mL injection 30 mg, 30 mg, intravenous, Q6H, Sera Gonzalez MD ??? lansoprazole (PREVACID) capsule 15 mg, 15 mg, oral, BID, Viktor Villagomez MD, 15 mg at 11/05/19 0854 ??? norgestimate-ethinyl estradioL (ORTHO TRI-CYCLEN LO) 0.18/0.215/0.25 mg-25 mcg per tablet 1 tablet, 1 tablet, oral, Nightly, Viktor Villagomez MD, 1 tablet at 11/04/192139 ??? nortriptyline (PAMELOR) capsule 10 mg, 10 mg, oral, Daily, Viktor Villagomez MD, 10 mgat 11/05/19 0855 ??? nortriptyline (PAMELOR) capsule 20 mg, 20 mg, oral, Nightly, Viktor Villagomez MD, 20 mg at 11/04/192140 ??? prochlorperazine (COMPAZINE) injection 10 mg, 0.1 mg/kg (Dosing Weight), intravenous, Q6H, Sera Gonzalez MD, 10 mg at 11/05/19 1339 Allergies Allergen Reactions ??? Dog Dander Hives Reaction: HIVES, ??? Penicillins Other (See comments) and Rash As a child Reaction: NAUSEA;, As a child Objective Vitals: 24hr Min/Max: Temp Min: 36.4 ??C (97.5 ??F) Max: 36.9 ??C (98.4 ??F) Pulse Min: 85 Max: 102 BP Min: 108/64 Max: 122/82 Resp Min: 14 Max: 23 SpO2 Min: 98 % Max: 100 % Most Recent : Vitals: 11/05/19 1200 BP: 116/81 Pulse: 102 Resp: 23 Temp: 36.8 ??C (98.2 ??F) SpO2: 98% I/O last 2 completed shifts: In: 3510.1 [P.O.:700; I.V.:2810.1] Out: 2950 [Urine:2950] I/O this shift: In: 649 [P.O.:30; I.V.:619] Out: 1450 [Urine:1450] Physical Exam: General: Well-nourished, obese, appears comfortable, lying in hospital bed HEENT: Normocephalic, atraumatic, no conjunctival injection, mucous membranes moist Resp: Comfortable work of breathing CV: Regular rate and rhythm Abd: non-distended Extremities: Warm and well-perfused, no edema Skin: No rash visualized on exam ?? Neurologic Exam Mental status: Awake. Alert. Oriented to person, place, time, and clinical encounter. Speech is fluent and articulate. Follows simple commands. Cranial Nerves: PERRL. EOMI without nystagmus. Facial sensation intact to light touch in all distributions. Face symmetric at rest and with activation. Motor: Normal muscle bulk and tone. 5/5 strength in upper and lower extremities. No abnormal movements. Sensory: Sensation intact to light touch. Reflexes: 2+ patellar, achilles, and biceps reflexes bilaterally. No clonus at ankles. Coordination: No dysmetria with [id number] testing. Gait: Gait deferred today Lab/Radiology/Diagnostic Review: Gastric emptying study negative. Assessment/Plan Principal Problem: Fainting spell Active Problems: Chronic nausea Nina is a 19 year old woman with a history of chronic nausea,??headaches, and??anxiety who presents following a syncopal episode.??Even though she has risk factors for IIH such as obesity and being on an OCP, her headache worsens with sitting up and on fundoscopy has clear margins of her discs which makes IIH unlikely with her having these symptoms for several months. Her OP of 27 can be WNL forher body habitus and her headache actually worsened after the LP was performed. There has been no acute change to her headaches and we have a recent MRI which would rule out other causes such as NMOSD which can be associated with frequent emesis or a mass with increased ICP. With headache and associated vision changes, photophobia, phonophobia, n/v, this is likely migraine without aura and would recommend trialing a migraine cocktail. With the positional component currently, can also trial caffeine for post-LP headache. Since GI is planning to wean off the nortriptyline, will plan to start topiramate qD once completely off of the nortriptyline and we have instructed Mom to call when that occurs. We also recommended starting migrelief OTC qD. We discussed with Nina and her mother that since she has had these headaches for a prolonged amount of time, they may not discontinue easily or quickly but that we will be able to improve her headaches over time with the goal of headache freedom.She already follows with a psychologist, but recommended discussing biofeedback with her psychologist and verifying that she is receiving CBT. Also recommended a headache diary and provided headache education/precautions. Her syncopal event is not consistent with seizure based on the description of the episode with her having a prodrome consistent with vasovagal syncope, she had no abnormal movements noted, and after 10 minutes of unconsciousness, she returned right back to baseline. She was found to have positive orthostatics and a low normal glucose and agree with cardiology that this is most likely a vasovagal response. We will plan for follow-up with her in neurology clinic in 3 months. ?? Recommendations: - Trial migraine cocktail. If she develops a post-LP headache (with positionality), can also consider oral caffeine - Will plan to start topiramate as an outpatient once nortriptyline has been discontinued. Also recommended starting migrelief qD (OTC) - Appreciate GI recommendations for nausea/vomiting work-up and management. Nortriptyline management per GI. - Appreciate psychology involvement, recommended discussing CBT and biofeedback with outpatient psychologist - Increase salt and water intake. Appreciate cardiology involvement for likely vasovagal syncope. Agree with event monitor upon discharge. - Provided headache education and placed in discharge instructions - Please cancel the appointment with Dr. Kerr. Follow-up with Dr. Riggs in neurology clinic in 3 months. She may call [phone] with any questions or concerns. Neurology Consult team will continue to follow. Please page Neurology Consult Resident on-call via [employer] with any questions or concerns. Nehal Riggs DO Pediatric Neurology Resident Cosigned by Magnolia Galaviz MD at 11/06/2019 2:33 PM CDT AINER FILLER Associated attestation - Magnolia Galaviz MD - 11/06/2019 2:33 PM CDT I have seen and examined the patient on 11/05/2019. I agree with the findings and plan of care as documented in the Neurology resident/fellow's note. Magnolia Olmstead MD PhD Lining Repairer Division of Developmental and Pediatric Neurology Department of Neurology * Florina Colby MD - 11/05/2019 10:53 AM CST Pediatric GI Daily Progress Note Subjective Chief complaint of syncope. Interval History: No vomiting or diarrhea in the last 24 hours. She reports that the nausea is present and the abdominal pain is improved and resolved. Primary team reports that she has not been reporting abdominal pain or nausea in the last 48 hours.She does report persistent headaches. She is now s/p LP from yesterday to evaluate for increased intracranial pressure. Cardiology is following as well and recommended a 30 day looping event recorder. Objective Vitals: Vitals 24 hour ranges: Temp: [36.4 ??C (97.5 ??F)-36.9 ??C (98.4 ??F)] Pulse: [85-98] Resp: [14-21] BP: (108-122)/(64-92) I/O last 2 completed shifts: In: 3510.1 [P.O.:700; I.V.:2810.1] Out: 2950 [Urine:2950] I/O this shift: In: 649 [P.O.:30; I.V.:619] Out: 950 [Urine:950] Physical Exam: Constitutional: ?General: No acute distress. She is??obese. She is not??ill-appearing. HENT: ?Head: Normocephalic??and atraumatic. ?Nose: Nose normal. No??congestion??or rhinorrhea. ?Mouth/Throat: ?Mouth: Mucous membranes are moist. ?Pharynx: Oropharynx is clear. No??oropharyngeal exudate??or posterior oropharyngeal erythema. Eyes: ?Extraocular Movements: Extraocular movements intact. ?Conjunctiva/sclera: Conjunctivae normal. ?Pupils: Pupils are equal, round, and reactive to light. Neck: ?Musculoskeletal: Normal range of motion??and neck supple. No??neck rigidity. Cardiovascular: ?Rate and Rhythm: Normal rate??and regular rhythm. ?Pulses: Normal pulses. ?Heart sounds: Normal heart sounds.??No murmur. No??friction rub. No??gallop. ?? Pulmonary: ?Effort: Pulmonary effort is normal. No??respiratory distress. ?Breath sounds: Normal breath sounds. No??wheezing. Abdominal: ?General: Abdomen is flat. Bowel sounds are??normal. There is no??distension. ?Palpations: Abdomen is soft. ?Tenderness: There is no abdominal tenderness. There is no??guarding??or rebound. Skin: ?General: Skin is warm??and dry. ?Capillary Refill: Capillary refill takes less than 2 seconds. ?Findings: No rash. Neurological: ?General: No focal deficit??present. Awake and alert. Lab/Radiology/Diagnostic Review: Laboratory: Lab results in the last 24 hours: Recent Results (from the past 24 hour(s)) Save CSF Collection Time: 11/04/19 1:24 PM Result Value Ref Range Save, CSF 5.0 mL stored in Serology for 3 months in freezer location save2. Cell Count, CSF Collection Time: 11/04/19 1:24 PM Result Value Ref Range Tube Number, CSF Tube 3 Color, CSF Colorless Colorless Clarity, CSF Clear Clear Xanthochromia, CSF Absent Absent Nucleated cells, CSF 0 0 - 5 /cumm RBC, CSF 0 0 - 0 /cumm Cell Differential, CSF Collection Time: 11/04/19 1:24 PM Result Value Ref Range Total cells diffed 2 cells Neutrophils, CSF 0 0 - 6 % Lymphs, CSF 50 40 - 80 % Monos, CSF 50 (H) 15 - 45 % Eosinophil, CSF 0 0 - 0 % Basophils, CSF 0 % Blasts, CSF 0 0 - 0 % Macrophages, CSF 0 0 - 0 % Cortisol Collection Time: 11/05/19 8:28 AM Result Value Ref Range Cortisol 20.2 (H) 4.8 - 19.5 mcg/dL Gastric Emptying 11/04/2019 IMPRESSION: Normal gastric emptying study. Assessment: Nina is a 19 year old woman with a history of chronic nausea,??headaches, and??anxiety who presented following a syncopal episode. GI was consulted for re-evaluation of medications used for chronic abdominal pain, nausea and emesis. 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 It seems that she has had improvement with the addition of the noritripyline. Therefore, would consider continuing it unless, there it is thought to be the primary cause of theserecurrent episodes of syncope. Per neurology and cardiology evaluation, it does not appear that thenortriptyline is the cause of these symptoms. Gastric emptying study was normal, therefore startinga promotility agent is unlikely to have significant benefit. Agree with psychologist evaluation. Discussed with both psychologist and mother that she may be a good candidate for the chronic abdominalpain workshop. ?? RECCOMENDATIONS: - Decrease noritripyline 20mg daily x1 week. Then 10mg qhs x1 week and then off. If symptoms returncan hold off on wean at home and call GI office. - Start weaning PPI. Take every other day for 1 week. Then stop. If epigastric pain than restart daily. - Agree with psychology consult. Information regarding chronic pain workshop given to mother. - Agree with continued cardiology and neurology follow up. ?? Thank you for the consult on Nina. Please call with any questions or concerns. ?? Cosigned by Margret Le MD at 11/06/2019 11:01 AM CDT AINER FILLER Associated attestation - Margret Le MD - 11/06/2019 11:01 AM CDT I have seen and examined the patient on 11/05/2019. I agree with the findings and plan of care as documented in the resident's/fellow's note. * Arnoldo Esposito MD - 11/04/2019 5:28 PM CST Pediatric Daily Progress Subjective Chief complaint of loss of counciousness. Interval History: Overnight Nina did well without any new symptoms. She was asleep for most of theday yesterday after receiving benadryl so was awake for most of the night. Otherwise, she does report some anxiety surrounding her LP today. Objective Vitals: Vitals 24 hour ranges: Temp: [36.5 ??C (97.7 ??F)-37.1 ??C (98.8 ??F)] Pulse: [85-97] Resp: [14-20] BP: (116-122)/(74-92) I/O last 2 completed shifts: In: 3657 [P.O.:1040; I.V.:2617] Out: 2310 [Urine:2310] I/O this shift: In: 750 [I.V.:750] Out: 1300 [Urine:1300] Physical Exam: General:well appearing, cooperative, no acute distress and asleep Lungs:clear to auscultation bilaterally, normal WOB and good air movement Heart:regular rate and rhythm, normal S1 and S2 and no murmur, rubs, or gallops Abdomen:soft, non-tender, non-distended, bowel sounds present, no masses and no organomegaly Pulses:2+ pulses and symmetric Skin:no rashes or lesions and no jaundice Neurologic:face symmetric and sleeping Lab/Radiology/Diagnostic Review: Laboratory review: Lab results in the last 24 hours: Recent Results (from the past 24 hour(s)) Cell Count, CSF Collection Time: 11/04/19 1:24 PM Result Value Ref Range Tube Number, CSF Tube 3 Color, CSF Colorless Colorless Clarity, CSF Clear Clear Xanthochromia, CSF Absent Absent Nucleated cells, CSF 0 0 - 5 /cumm RBC, CSF 0 0 - 0 /cumm Cell Differential, CSF Collection Time: 11/04/19 1:24 PM Result Value Ref Range Total cells diffed 2 cells Neutrophils, CSF 0 0 - 6 % Lymphs, CSF 50 40 - 80 % Monos, CSF 50 (H) 15 - 45 % Eosinophil, CSF 0 0 - 0 % Basophils, CSF 0 % Blasts, CSF 0 0 - 0 % Macrophages, CSF 0 0 - 0 % Assessment/Plan Chronic nausea Assessment & Plan GI was consulted as she was scheduled to have a GES today and there was some onset around the same time her nortriptyline was increased. They feel her vomiting is likely functional in nature and feelshe would benefit from following with the Functional Abdominal Pain clinic. If we do think these current symptoms are related to her nortriptyline, they recommended decreasing to 20mg. Psychology hasseen her and recommend continued follow up. Plan: - Continue home nortriptyline 10 mg morning, 20 mg night - Continue home lexapro 20 mg - F/u GES - Referral to Functional Abdominal Pain Clinic * Fainting spell Assessment & Plan Nina presented following several syncopal episodes lasting seconds to minutes. Preceded by prodrome of dizziness, feeling off, headaches, sometimes nausea. No seizure-like activity, apnea, chest pain during episodes. Workup largely reassuring, including normal Brain MRI from previous admission. EMS glucose 68. Positive orthostatic changes in ED. ECG on 10/24 with prolonged QTc. Exam unremarkable,no focal neurologic deficits. Given rapid onset with prodrome and rapid recovery to baseline, presentation seems consistent with vasovagal syncope. Cardiology has also seen and agree that this is themost likely cause, but would like to have her wear a monitor and follow up as an outpatient. [...] Follow up Neurology, Cardiology, and GI recommendations Cosigned by Elpidio Gimenez MD at 11/07/2019 1:00 PM CDT AINER FILLER Associated attestation - Elpidio Gimenez MD - 11/07/2019 1:00 PM CDT I have seen and examined the patient on 11/04/2019. I agree with the findings and plan of care as documented in the resident's/fellow's note. * Elpidio Gimenez MD - 11/04/2019 11:26 AM CST A review of recent symptoms provided by mother: 07/02/19 2 days fever 07/14/19 Nausea 07/19/19 Admitted 5 d nausea, abd pain, dx cyst. Celexa changed to Lexapro Pineda Pain better, nausea persisted. Intermittent vomiting 08/31/19 began vomiting regularly 09/12/19 Vomited 8x in 1.5 hours 09/13/19 Admitted. Endoscopy, MRI head, d/c zofran, start nortrip, d/c lexapro 09/20/19 20mg lexapro 10/03/19 Vomiting started again. Increase nortrip 30mg 10/10/19 Restarted lexapor, still vomiting 10/17/19 Nortryp to 40mg 10/23/19 Passed out at home, 1 min. Passed out in ER. EKG, decreased Nortyp 30mg 10/26/19 Passed out at school 2 minutes 11/02/19 HUANG in am, passed out at school 10 minutes, ambulance to ER. Passed out in ER. AINER FILLER * Savita Che RD - 11/03/2019 4:39 PM CST Pediatric Nutrition Assessment Nina Coyne 2000 Reason for Assessment: Initial Nutrition Assessment Medical History: 19 y.o. woman with a history of chronic nausea, headaches, and anxiety who presents following a syncopal episode Past Medical History: Diagnosis Date ??? Abdominal pain 07/20/2019 ??? Abnormal electrocardiography 01/19/2017 Annotation: Saw cardiology 2016 and was cleared, repeat 08/25/19 Normal sinus rhythm with sinus arrhythmia with short OK ??? Anxiety 07/20/2019 ??? Asthma ??? Nausea 08/15/2019 ??? Vomiting multiple times per week Social: met with pt and mom at bedside Nutrition Screen What diet do you follow at home?: regular Have You Recently Lost Weight Without Trying?: Yes (Comment) How Much Weight Have You Lost?: 9.072 kg (20 lb) What is the Timeframe of Weight Change?: 3 months Poor Oral Intake for Four or More Days Prior to Admission: No Anthropometrics Weight: 99.6 kg (219 lb 9.3 oz) Admission Weight : 101.9 kg %tile Weight for Age: >97 %tile Weight Change: -2.30 kg (-5.07 lbs) Height: 163 cm (5' 4.17 ) %tile Height for Age: 25-50 %tile BMI (Calculated): 37.5 %tile BMI for Age: >97 %tile Growth history: 12/3/19: 103.5 kg 08/15/19: 101.3 kg 10/05/19: 100.8 kg 11/03/19: 99.6 kg Pt weight down approx 3.8% over past 3 months. Estimated nutrition needs Calorie DRI Physical Activity Coefficients: Sedentary Weight Used for Calculation (kg): 99.6 kg (219 lb 9.3 oz) Total Calorie DRI : 2155.11 DRI kcal/kg/day: 21.64 Protein DRI Weight Used for Calculation (kg): 99.6 kg (219 lb 9.3 oz) Total Protein DRI (B[employer]ER AND BOX BUILDER/AI): 84.66 Protein DRI grams/kg/day: 0.85 Baseline Fluid Requirement Weight Used for Calculation (kg): 99.6 kg (219 lb 9.3 oz) Total Baseline Fluid Requirements : 3092 Baseline Fluids grams/kg/day: 31.04 Allergies: Dog dander and Penicillins Medications: Patient's active medications have been reviewed. Labs: Pertinent Nutrition Labs Reviewed Dietary Orders (From admission, onward) Start Ordered 11/03/19 0029 Pediatric Diet Regular Diet effective now Question: ([facility]) Diet type Answer: Regular 11/03/19 0028 Care Plan 1 Nutrition Diagnosis 1: Inadequate oral intake Related to: Nausea, Vomiting Evidenced by: Patient interview Interventions: Encouragement, Education, nutrition Goals: Adequate nutrition to meet estimated needs by next assessment Monitoring and Evaluation: Appetite, PO intake, Weight changes Diet Experience Previously prescribed diets: Mom reports pt eats well at baseline. She indicates that from about July through August, pt with decreased PO intake. She indicates pt is starting to tolerate more, tolerating at least a little bit for lunch, afternoon snack, and dinner. Pertinent Nutrition Information: Mom indicates that pt is starting to tolerate a little more PO over the past several weeks. Reviewed nutritional needs, diet tips for PO intake/tolerance, options available to help with intake, and encouraged intake as tolerated. Plan: ?? Regular diet as ordered, encourage intake as tolerated ?? Weights weekly ?? Will follow per policy AINER FILLER documented in this encounter H&P Notes * Viktor Villagomez MD - 11/03/2019 5:10 AM CST PediatricHistory and Physical Subjective Chief complaint of syncope. Nina is a 19 year old woman with a history of chronic nausea, headaches, and anxiety who presents following a syncopal episode. On the day of admission (11/01) she woke up with a headache, but went toschool and was feeling ok throughout the day. After school she was about to go to dance practice when she started to feel off and dizzy. She sat down in the locker room and called her mom. After mom arrived she slumped over and passed out and remained unarousable for about 10 minutes before awakening with nausea and a headache, but return to baseline mental status. She had no abnormal movement during this episode and was breathing regularly throughout. When EMS arrived she had an elevated blood pressure and a POCT glucose of 68. In ED waiting room she had another episode that was briefer. CBC, BMP, CXR, troponin normal. ECG in ED reportedly normal. Orthostatic vitals positive for change from supine to standing. She was given a migraine cocktail and 1L NS bolus and her headache She has had several other syncopal episodes over the past month. She was seen in ED on 10/24 and hadan ECG with prolonged QTc but an otherwise normal workup. She had recently increased her nortiptyline dose so this was reduced from 40 mg to 30 mg daily. Denies chest pain, confusion, numbness, vision changes, decreased appetite or intake. Her nausea and vomiting have been better controlled since her admission in August but has vomited as recently asMonday. She endorses abdominal discomfort and pressure on waking that improves throughout the day. Headaches are occipital and frontal and described as a dull pounding or whooshing. They do not respond to ibuprofen or tylenol. She was admitted to [facility] in August for intractable vomiting and had anormal Upper endoscopy and brain MRI. She was followed by GI and has an upcoming neurology appointment here. She denies current anxiety, depression, SI. She is on lexapro managed by her event planning intern and sees a therapist regularly. She denies alcohol, tobacco, drug use. Has never been sexually active. She likes school and plans to go to college next year. Past Medical History: Diagnosis Date ??? Abdominal pain 07/20/2019 ??? Abnormal electrocardiography 01/19/2017 Annotation: Saw cardiology 2016 and was cleared, repeat 12/26/19 Normal sinus rhythm with sinus arrhythmia with short OK ??? Anxiety 07/20/2019 ??? Asthma ??? Nausea 08/15/2019 ??? Vomiting multiple times per week Past Surgical History: Procedure Laterality Date ??? WRIST SURGERY Medications Prior to Admission Medication Sig Dispense Refill Last Dose ??? acetaminophen (TYLENOL) suspension 160 mg/5 mL 11/02/2019 ??? nortriptyline (PAMELOR) 10 mg capsule Take 2 capsules (20 mg total) by mouth 2 (two) times a day Take 2 in afternoon and 2 at bedtime (Patient taking differently: Take 30 mg by mouth daily Take 10 mg in morning and 20 mg at night) 120 capsule 11 11/02/2019 ??? omeprazole (PriLOSEC) 20 mg capsule Take 1 capsule (20 mg total) by mouth 2 (two) times a day 60 capsule 11 11/02/2019 at 0900 ??? albuterol (PROVENTIL,VENTOLIN) 1.25 mg/3 mL nebulizer solution Take 1.25 mg by nebulization every 4 (four) hours as needed for wheezing or shortness of breath Past Month at Unknown time ??? albuterol HFA (PROVENTIL HFA,VENTOLIN HFA,PROAIR HFA) 90 mcg/actuation inhaler Inhale 2 puffs every 6 hours as needed for wheezing or shortness of breath Past Month at Unknown time ??? escitalopram (LEXAPRO) 20 mg tablet Take 1 tablet (20 mg total) by mouth daily 30 tablet 2 PastWeek at 2100 ??? fluticasone furoate-vilanterol (Breo Ellipta) 100-25 mcg/dose diskus inhaler Inhale 1 puff daily 60 each 0 11/02/2019 at 0900 ??? norgestimate-ethinyl estradiol (ORTHO TRI-CYCLEN LO) 0.18/0.215/0.25 mg-25 mcg per tablet Take 1 tablet by mouth daily 0 Past Week at Unknown time Allergies Allergen Reactions ??? Dog Dander Hives Reaction: HIVES, ??? Penicillins Other (See comments) and Rash As a child Reaction: NAUSEA;, As a child Social History Tobacco Use ??? Smoking status: Never Smoker Substance Use Topics ??? Alcohol use: Never Frequency: Never Family History Adopted: Yes Family history unknown: Yes Social History: Drug Use: Social History Substance and Sexual Activity Drug Use Never Education: Education ??? Educational level 12th Living Conditions: Living Conditions ??? Lives with mom, dad, sister 14yo brother 11yo Social History Narrative: Social History Social History Narrative Adoptive mother : (Added by AYAD Paez) No secondhand smoke exposure : (Added by AYAD Paez) Tobacco History: Social History Tobacco Use Smoking Status Never Smoker Review of Systems: Review of Systems Constitutional: Negative for chills, fever and weight loss. HENT: Negative for congestion, ear pain and sore throat. Eyes: Negative for blurred vision, double vision, photophobia, pain, discharge and redness. Respiratory: Negative for cough, shortness of breath and wheezing. Cardiovascular: Negative for chest pain, palpitations, orthopnea, claudication and leg swelling. Gastrointestinal: Positive for abdominal pain, nausea and vomiting. Negative for blood in stool, constipation and diarrhea. Genitourinary: Negative for dysuria, flank pain, frequency, hematuria and urgency. Musculoskeletal: Negative for back pain, joint pain, myalgias and neck pain. Skin: Negative for rash. Neurological: Positive for dizziness, loss of consciousness and headaches. Negative for speech change, focal weakness and seizures. Endo/Heme/Allergies: Positive for environmental allergies. Does not bruise/bleed easily. Psychiatric/Behavioral: Negative for depression and suicidal ideas. The patient is nervous/anxious. Objective Physical Exam: Physical Exam Constitutional: General: She is not in acute distress. Appearance: Normal appearance. She is obese. She is not ill-appearing. HENT: Head: Normocephalic and atraumatic. Right Ear: Tympanic membrane and external ear normal. Left Ear: Tympanic membrane and external ear normal. Nose: Nose normal. No congestion or rhinorrhea. Mouth/Throat: Mouth: Mucous membranes are moist. Pharynx: Oropharynx is clear. No oropharyngeal exudate or posterior oropharyngeal erythema. Eyes: Extraocular Movements: Extraocular movements intact. Conjunctiva/sclera: Conjunctivae normal. Pupils: Pupils are equal, round, and reactive to light. Neck: Musculoskeletal: Normal range of motion and neck supple. No neck rigidity. Cardiovascular: Rate and Rhythm: Normal rate and regular rhythm. Pulses: Normal pulses. Heart sounds: Normal heart sounds. No murmur. No friction rub. No gallop. Pulmonary: Effort: Pulmonary effort is normal. No respiratory distress. Breath sounds: Normal breath sounds. No wheezing. Chest: Chest wall: No tenderness. Abdominal: General: Abdomen is flat. Bowel sounds are normal. There is no distension. Palpations: Abdomen is soft. Tenderness: There is no abdominal tenderness. There is no guarding or rebound. Musculoskeletal: Normal range of motion. General: No swelling, tenderness or deformity. Lymphadenopathy: Cervical: No cervical adenopathy. Skin: General: Skin is warm and dry. Capillary Refill: Capillary refill takes less than 2 seconds. Findings: No rash. Neurological: General: No focal deficit present. Mental Status: She is alert and oriented to person, place, and time. Mental status is at baseline. Cranial Nerves: No cranial nerve deficit. Motor: No weakness. Coordination: Coordination normal. Psychiatric: Mood and Affect: Mood normal. Behavior: Behavior normal. Thought Content: Thought content normal. Lab/Radiology/Diagnostic Review: Laboratory review: Lab results in the last 24 hours: Recent Results (from the past 24 hour(s)) CBC with auto differential Collection Time: 11/02/19 10:13 PM Result Value Ref Range WBC 10.2 (H) 3.8 - 9.9 K/cumm Hgb 12.7 11.9 - 15.5 g/dL Hct 38.0 35.6 - 45.5 % Plt 357 150 - 400 K/cumm MPV 9.5 9.1 - 12.3 fL RBC 4.29 3.90 - 5.20 M/cumm MCV 88.6 81.3 - 96.4 fL MCH 29.6 27.1 - 33.3 pg MCHC 33.4 32.3 - 35.7 g/dL RDW CV 13.3 11.1 - 14.9 % RDW SD 43.4 35.7 - 48.1 fL NRBC abs 0.00 0.00 - 0.01 K/cumm Electrolytes, whole blood Collection Time: 11/02/19 10:13 PM Result Value Ref Range Sodium, Whole Blood 140 135 - 145 mmol/L Potassium, bld 3.7 3.3 - 4.9 mmol/L Chloride, bld 106 100 - 114 mmol/L CO2, Total Calculated, Whole Blood 26 20 - 30 mmol/L Anion Gap, Whole Blood 9 mmol/L Glucose, whole blood Collection Time: 11/02/19 10:13 PM Result Value Ref Range Glucose, bld 81 70 - 199 mg/dL Calcium, ionized, whole blood Collection Time: 11/02/19 10:13 PM Result Value Ref Range Ca, ionized, bld 4.65 3.90 - 5.20 mg/dL Creatinine, whole blood Collection Time: 11/02/19 10:13 PM Result Value Ref Range Creatinine, bld 0.8 0.4 - 1.0 mg/dL Troponin I Collection Time: 11/02/19 10:13 PM Result Value Ref Range Troponin I <0.03 0.00 - 0.03 ng/mL Differential, auto Collection Time: 11/02/19 10:13 PM Result Value Ref Range Neutrophil abs 6.1 1.7 - 6.5 K/cumm Imm gran abs 0.0 0.0 - 0.1 K/cumm Lymphocyte abs 2.8 0.8 - 3.3 K/cumm Monocyte abs 0.9 (H) 0.2 - 0.8 K/cumm Eosinophil abs 0.4 0.0 - 0.5 K/cumm Basophil abs 0.1 0.0 - 0.1 K/cumm Neutrophil pct 59.2 % Imm gran pct 0.4 % Lymphocyte pct 27.3 % Monocyte pct 8.8 % Eosinophil pct 3.5 % Basophil pct 0.8 % hCG, blood, quantitative Collection Time: 11/02/19 11:39 PM Result Value Ref Range hCG, quant <5.0 0.0 - 5.0 IUnits/L Vitals: 24hr Min/Max: Temp Min: 36.1 ??C (97 ??F) Max: 37.2 ??C (99 ??F) Pulse Min: 72 Max: 120 BP Min: 103/71 Max: 145/109 Resp Min: 17 Max: 22 SpO2 Min: 96 % Max: 100 % Most Recent : Vitals: 11/03/19 0319 BP: 103/71 Pulse: 88 Resp: 22 Temp: 36.1 ??C (97 ??F) SpO2: 99% No intake/output data recorded. I/O this shift: In: 399 [I.V.:399] Out: 0 Assessment/Plan * Vasovagal syncope Assessment & Plan Several syncopal episodes lasting seconds to minutes. [...] - Consider neurology consult vs. outpatient appointment Cosigned by Elpidio Gimenez MD at 11/03/2019 8:17 AM CONTAINER FILLER AINER FILLER AINER FILLER Associated attestation - Elpidio Gimenez MD - 11/03/2019 8:17 AM CONTAINER FILLER I have seen and examined the patient on 11/03/19. I agree with the findings and plan of care as documented in the resident's/fellow's note. documented in this encounter Consult Notes * Nehal Riggs DO - 11/04/2019 11:36 AM CSTAssociated Order(s): IP CONSULT TO NEUROLOGY Pediatric Neurology Consultation Note Patient Name: NINA COYNE Medical Record Number (MRN): [id number] Date of (): 2000 Encounter Date: 11/02/2019 Requesting Provider: Arnoldo Esposito Reason for Consultation: No data found Chief Complaint Nina is a 19 year old woman with a history of chronic nausea,??headaches, and??anxiety who presents following a syncopal episode. HPI Nina awoke on 3/4 AM with a headache. She went to school but began feeling dizzy after school withsome blurry/tunnel vision. She sat down in the locker room, and called her friend and her mom. Thissensation persisted for about 20 minutes. After mom arrived, she was sitting up with her back against the wall and she??slumped over onto her side and was unresponsive. No head trauma. No abnormal movements were noted or eye deviation, her eyes remained closed. Mom feels that her breathing slowed somewhat while unresponsive. She was unresponsive to nox stim reportedly. When EMS arrived, she became conscious, and immediately returned to baseline. She complained of nausea and a headache, had an elevated blood pressure, and a POCT glucose of 68. In ED, she had a repeat brief episode similar to event prior. CBC, BMP, CXR, troponin normal. ECG with normal siuns rhythm with low voltage QRS in lateral precordial leads and a QTc of 445 msec. Orthostatic vitals positive for change from supine to standing. She was given a migraine cocktail and 1L NS bolus. She had an LP performed on 11/03 prior to this consultation being performed. No fundoscopic exam was performed prior per patient. OP 27 with CP 13 after 28ccs removed. She reports that her headache hasworsened since the LP. They have not trialed any abortives for her headache. Cardiology was consulted and felt that the prodromal symptoms are classic for vasovagal events. She will be discharged with a loop monitor. ?? Of note, she has had multiple admissions in the past for nausea, vomiting, headache, or syncope. She has had several other syncopal episodes over the past month. She was seen in ED on 10/24 and had anECG with prolonged QTc but an otherwise normal workup. GI had recently increased her nortriptyline for n/v so this was reduced from 40 mg to 30 mg daily. Reportedly her headaches are bifrontal and throbbing or occipital. Her headaches improve with laying down. Severity max of 8/10. They do not wakeher from sleep. With her intractable nausea and [...] neurology next week and follows with GI. ?? Development Parents and event planning intern had no concerns for delays in development and she met her developmental milestones appropriately. Review of Systems Review of Systems A complete review of systems including ear, nose, and throat, respiratory, cardiovascular, gastrointestinal, genitourinary, integumentary, endocrine, hematologic, musculoskeletal and psychiatric symptoms was completed and negative except as per the HPI. Past Medical History Past Medical History: Diagnosis Date ??? Abdominal pain 07/20/2019 ??? Abnormal electrocardiography 01/19/2017 Annotation: Saw cardiology 2016 and was cleared, repeat 08/25/19 Normal sinus rhythm with sinus arrhythmia with short OK ??? Anxiety 07/20/2019 ??? Asthma ??? Nausea 08/15/2019 ??? Vomiting multiple times per week Surgical History Past Surgical History: Procedure Laterality Date ??? LUMBAR PUNCTURE WO INJECTION, THERAPEUTIC N/A 11/04/2019 ??? WRIST SURGERY Allergies Allergies Allergen Reactions ??? Dog Dander Hives Reaction: HIVES, ??? Penicillins Other (See comments) and Rash As a child Reaction: NAUSEA;, As a child Outpatient Medications Medications Prior to Admission Medication Sig Dispense Refill Last Dose ??? nortriptyline (PAMELOR) 10 mg capsule Take 10 mg by mouth every morning 11/03/2019 at Unknown time ??? nortriptyline (PAMELOR) 10 mg capsule Take 20 mg by mouth nightly 11/02/2019 at Unknown time ??? omeprazole (PriLOSEC) 20 mg capsule Take 1 capsule (20 mg total) by mouth 2 (two) times a day 60 capsule 11 11/02/2019 at 0900 ??? albuterol (PROVENTIL,VENTOLIN) 1.25 mg/3 mL nebulizer solution Take 1.25 mg by nebulization every 4 (four) hours as needed for wheezing or shortness of breath Past Month at Unknown time ??? albuterol HFA (PROVENTIL HFA,VENTOLIN HFA,PROAIR HFA) 90 mcg/actuation inhaler Inhale 2 puffs every 6 hours as needed for wheezing or shortness of breath Past Month at Unknown time ??? escitalopram (LEXAPRO) 20 mg tablet Take 1 tablet (20 mg total) by mouth daily 30 tablet 2 PastWeek at 2100 ??? fluticasone furoate-vilanterol (Breo Ellipta) 100-25 mcg/dose diskus inhaler Inhale 1 puff daily 60 each 0 11/02/2019 at 0900 ??? norgestimate-ethinyl estradiol (ORTHO TRI-CYCLEN LO) 0.18/0.215/0.25 mg-25 mcg per tablet Take 1 tablet by mouth daily 0 Past Week at Unknown time Current Medications Current Facility-Administered Medications Medication Dose Route Frequency Provider Last Rate Last Dose ??? acetaminophen (TYLENOL) tablet 650 mg 650 mg oral Q6H PRN Arnoldo Esposito MD ??? dextrose 5% and sodium chloride 0.9% with potassium chloride 20 mEq/L infusion (premix) 1.5 L/m2/day intravenous Continuous Viktor Villagomez MD 133.8 mL/hr at 11/04/19 08 1.5 L/m2/dayat 11/04/19818 ??? escitalopram (LEXAPRO) tablet 20 mg 20 mg oral Nightly Viktor Villagomez MD 20 mg at 11/03/192131 ??? fluticasone furoate-vilanteroL (BREO ELLIPTA) 100-25 mcg/dose inhaler 1 puff 1 puff inhalation Nightly Viktor Villagomez MD 1 puff at 11/03/192135 ??? lansoprazole (PREVACID) capsule 15 mg 15 mg oral BID Viktor Villagomez MD 15 mg at 11/03/192134 ??? norgestimate-ethinyl estradioL (ORTHO TRI-CYCLEN LO) 0.18/0.215/0.25 mg-25 mcg per tablet 1 tablet 1 tablet oral Nightly Viktor Villagomez MD 1 tablet at 11/03/192135 ??? nortriptyline (PAMELOR) capsule 10 mg 10 mg oral Daily Viktor Villagomez MD 10 mg at 11/03/19 0942 ??? nortriptyline (PAMELOR) capsule 20 mg 20 mg oral Nightly Viktor Villagomez MD 20 mg at11/03/192136 Facility-Administered Medications Ordered in Other Encounters Medication Dose Route Frequency Provider Last Rate Last Dose ??? tc-99m sulfur colloid egg 0.693 millicurie 0.693 millicurie oral Once in imaging Florina Colby MD0.628 millicurie at 11/04/19 1002 Family History Family History Adopted: Yes Family history unknown: Yes Unknown as she was adopted. Social History Social History Socioeconomic History ??? Marital status: Single Spouse name: Not on file ??? Number of children: Not on file ??? Years of education: Not on file ??? Highest education level: Not on file Occupational History ??? Not on file Social Needs ??? Financial resource strain: Not on file ??? Food insecurity Worry: Not on file Inability: Not on file ??? Transportation needs Medical: Not on file Non-medical: Not on file Tobacco Use ??? Smoking status: Never Smoker Substance and Sexual Activity ??? Alcohol use: Never Frequency: Never ??? Drug use: Never ??? Sexual activity: Never Lifestyle ??? Physical activity Days per week: Not on file Minutes per session: Not on file ??? Stress: Not on file Relationships ??? Social connections Talks on phone: Not on file Gets together: Not on file Attends anglican service: Not on file Active member of club or organization: Not on file Attends meetings of clubs or organizations: Not on file Relationship status: Not on file ??? Intimate partner violence Fear of current or ex partner: Not on file Emotionally abused: Not on file Physically abused: Not on file Forced sexual activity: Not on file Other Topics Concern ??? Not on file Social History Narrative Adoptive mother : (Added by AYAD Conv) No secondhand smoke exposure : (Added by AYAD Conv) Lives with parents, younger sister, and brother Nina has a prolonged history with anxiety and is on Lexapro (and nortriptyline from ). She follows with a counselor. Trauma history includes: Nina's cousin who was close in age suddenly after a car accident over the summer. This loss has been very difficult for their family according to mother, but mother thinks Nina has been coping well. Nina's best friend in 7th grade because of a brain tumor. Denies drug, tobacco, or alcohol use. School She is a senior in high school. She has continued to go to school with her headaches and nausea. She will be attending [employer] in the Fall. No IEP. Vitals: 24hr Min/Max: Temp Min: 36.5 ??C (97.7 ??F) Max: 37.1 ??C (98.8 ??F) Pulse Min: 85 Max: 90 BP Min: 116/74 Max: 122/82 Resp Min: 14 Max: 20 SpO2 Min: 97 % Max: 100 % Most Recent : Vitals: 11/04/19 1640 BP: 122/82 Pulse: 87 Resp: 20 Temp: 36.6 ??C (97.9 ??F) SpO2: 99% I/O last 2 completed shifts: In: 3657 [P.O.:1040; I.V.:2617] Out: 2310 [Urine:2310] I/O this shift: In: 1386 [I.V.:1386] Out: 1500 [Urine:1500] Physical Exam General: Well-nourished, obese, appears comfortable, lying in hospital bed HEENT: Normocephalic, atraumatic, no conjunctival injection, mucous membranes moist Resp: Comfortable work of breathing CV: Regular rate and rhythm Abd: non-distended Extremities: Warm and well-perfused, no edema Skin: No rash visualized on exam Neurologic Exam Mental status: Awake. Alert. Oriented to person, place, time, and clinical encounter. Speech is fluent and articulate. Follows simple commands. Cranial Nerves: Visual acuity 20/20 OS 20/20 OD. Fundoscopic exam with clear margins of her discs OU. PERRL. Visual shaikh full to confrontation bilaterally to finger counting. No difference in colorperception with red desaturation. EOMI without nystagmus. Facial sensation intact to light touch inall distributions. Face symmetric at rest and with activation. Hearing intact to finger rub bilaterally. Palate elevates symmetric. Tongue protrudes midline with full lateral range of motion. Shoulder shrug symmetric. Motor: Normal muscle bulk and tone. 5/5 strength in upper and lower extremities. No pronator drift.Fast symmetric finger taps. No abnormal movements. Sensory: Sensation intact to light touch. Reflexes: 2+ patellar, achilles, and biceps reflexes bilaterally. No clonus at ankles. Toes are down-going with plantar stimulation. Coordination: No dysmetria with [id number] testing. Gait: Normal based gait. Lab/Radiology/Diagnostic Review: Laboratory review: Lab results in the last 24 hours: Recent Results (from the past 24 hour(s)) Cell Count, CSF Collection Time: 11/04/19 1:24 PM Result Value Ref Range Tube Number, CSF Tube 3 Color, CSF Colorless Colorless Clarity, CSF Clear Clear Xanthochromia, CSF Absent Absent Nucleated cells, CSF 0 0 - 5 /cumm RBC, CSF 0 0 - 0 /cumm Cell Differential, CSF Collection Time: 11/04/19 1:24 PM Result Value Ref Range Total cells diffed 2 cells Neutrophils, CSF 0 0 - 6 % Lymphs, CSF 50 40 - 80 % Monos, CSF 50 (H) 15 - 45 % Eosinophil, CSF 0 0 - 0 % Basophils, CSF 0 % Blasts, CSF 0 0 - 0 % Macrophages, CSF 0 0 - 0 % No results found for this or any previous visit. Assessment/Plan Principal Problem: Fainting erna Wood is a 19 year old woman with a history of chronic nausea,??headaches, and??anxiety who presents following a syncopal episode. Even though she has risk factors for IIH such as obesity and being on an OCP, her headache worsens with sitting up and on fundoscopy has clear margins of her discs which makes IIH unlikely with her having these symptoms for several months. Her OP of 27 can be WNL for her body habitus and her headache actually worsened after the LP was performed. There has been no acute change to her headaches and we have a recent MRI which would rule out other causes such as NMOSDwhich can be associated with frequent emesis or a mass with increased ICP. With headache and associated vision changes, photophobia, phonophobia, n/v, this is likely migraine without aura and would recommend trialing a migraine cocktail. Her syncopal event is not consistent with seizure based on the description of the episode with her having a prodrome consistent with vasovagal syncope, she had no abnormal movements noted, and after 10 minutes of unconsciousness, she returned right back to [facility]. She was found to have positive orthostatics and a low normal glucose and agree with cardiologythat this is most likely a vasovagal response. We will plan for follow-up with her in neurology clinic in 3 months. Recommendations: - Increase salt and water intake. Appreciate cardiology involvement for likely vasovagal syncope. Agree with event monitor upon discharge. - Trial migraine cocktail. If she develops a post-LP headache (with positionality), can also consider oral caffeine - Appreciate GI recommendations for nausea/vomiting work-up and management. Nortriptyline management per GI. - Appreciate psychology involvement - Please cancel the appointment with Dr. Kerr. Follow-up with Dr. Riggs in neurology clinic in 3 months. She may call [phone] with any questions or concerns. Neurology Consult team will continue to follow. Please page Neurology Consult Resident on-call via [email or web address] with any questions or concerns. Nehal Riggs DO Pediatric Neurology Resident Cosigned by Franklin Godinez MD at 11/04/2019 5:56 PM CONTAINER FILLER AINER FILLER AINER FILLER AINER FILLER Associated attestation - Franklin Godinez MD - 11/04/2019 5:56 PM CONTAINER FILLER I have seen and examined the patient on 11/04/19. I agree with the findings and plan of care as documented in the resident's/fellow's note and as discussed with the resident/fellow. * Magnolia Moreno, PhD - 11/03/2019 5:16 PM CSTAssociated Order(s): IP CONSULT TO PSYCHOLOGY Pediatric Psychology Consult Reason for Consult: Assessment of emotional functioning and Pain management strategies Requesting Provider: Elpidio Gimenez MD Sources of information: ?? Clinical interview with mother ?? Medical records review Consent for psychological services was obtained. Confidentiality, including limits to confidentiality, was discussed and any questions were answered. The family is aware that information obtained during the course of receiving psychological services within the Department of Psychology may be sharedwith other health patient care provider participating in the patient's care at [facility]. The family denied any concerns and expressed their understanding. This psychologist's contact information was also provided to the family. Presenting Concerns Nina Coyne is a 19 y.o. female with a history of anxiety, chronic nausea, and headaches, who was admitted to [facility] on 11/02/2019 for SYNCOPE. Primary concerns prompting this consultation were related to Assessment of emotional functioning and Pain management strategies. Per the H&P, On the day of admission (11/01) she woke up with a headache, but went to school and was feeling ok throughout the day. After school she was about to go to dance practice when she started to feel off and dizzy. She sat down in the locker room and called her mom. After mom arrived she slumped over and passed out and remained unarousable for about 10 minutes before awakening with nausea and a headache, but return to baseline mental status. She had no abnormal movement during thisepisode and was breathing regularly throughout. When EMS arrived she had an elevated blood pressureand a POCT glucose of 68. In ED waiting room she had another episode that was briefer. CBC, BMP, CXR, troponin normal. ECG in ED reportedly normal. Orthostatic vitals positive for change from supine to standing. She was given a migraine cocktail and 1L NS bolus and her headache. She has had severalother syncopal episodes over the past month. She was seen in ED on 10/24 and had an ECG with prolonged QTc but an otherwise normal workup. She had recently increased her nortiptyline dose so this was reduced from 40 mg to 30 mg daily. ?? Denies chest pain, confusion, numbness, vision changes, decreased appetite or intake. Her nausea and vomiting have been better controlled since her admission in August but has vomited as recently asMonday. She endorses abdominal discomfort and pressure on waking that improves throughout the day. Headaches are occipital and frontal and described as a dull pounding or whooshing. They do not respond to ibuprofen or tylenol. She was admitted to [facility] in August for intractable vomiting and had anormal Upper endoscopy and brain MRI. She was followed by GI and has an upcoming neurology appointment here. Attempted to meet with Nina and mother. Nina was asleep and unable to be roused due migraine cocktail including benadryl. She was observed to snore and did not respond when spoken to. This psychologist proceeded with visit with mother at bedside. Emotional/Behavioral Functioning Mother reported Nina has a history of anxiety that began as separation anxiety when she as a child. She has seen a counselor on and off since she starting going when she was younger for separation anxiety. Lately she has been seeing counselor for coping with her physical symptoms. She has been very fatigued recently. She has continued to participate in her activities. Mother denied any concerns about Nina's social functioning. Mother reported Nina has multiple supportive friends. One of her friends was with her when Nina had most recent syncopal episode. Friendwas concerned and stayed with her until EMS arrived. This friend has checked in on Nina during this admission. Mother reported Nina often stays in contact with her friends via text messaging. Psychiatric History Nina is currently participating in outpatient therapy for anxiety and coping with her physical symptoms. She takes Lexapro. Lexapro is managed by her PMD at [facility]. Medical History According to medical records, Nina's history is significant for: Principal Problem: Vasovagal syncope Mother reported this is Nina's third admission since July 2019. Initially she was admitted fornausea and severe abdominal pain in July. They attributed these issues to cyst on her ovary so she was d/c with arian and plan to f/u with ob-air traffic control supervisor. She later saw ob-air traffic control supervisor and started control for the cyst. She had continued nausea. In July, she was admitted to issues with vomiting and GIbecame more involved. She was started on nortriptyline and eventually the dose was increased resulting in the start of syncopal episodes. Her most recent syncopal episode was the longest (10 minutes). Mother reported Nina's blood pressure is high following the syncopal episodes. Nina's mother she typically wakes up in the morning with pressure in her stomach. It is hard for her to get out of bed. She will vomit sometimes. She had 1 EKG that was abnormal but then repeat EKG that was normal. She will see Neuro tomorrow and Cardio will send her home on a heart monitor for further evaluation. She is participating in gastric emptying study tomorrow. She is followed by GI. Sleep: Concerns include nighttime wakings and wanting mom to lay with her on occasion due to ongoing chronic pain that contributes to awakenings in the night Appetite: concerns include decreased appetite due to nausea but some improvement recently Trauma History Nina's cousin who was close in age suddenly after a car accident over the summer. Thisloss has been very difficult for their family according to mother, but mother thinks Nina has beencoping well. Nian's best friend in 7th grade because of a brain tumor. Living Conditions Living Conditions ??? Lives with mom, dad, sister 14yo brother 11yo Developmental History Nina met early developmental milestones within expected time frames. Educational History Education/Daycare: Nina is a senior in high school. She has been able to continue going to school despite her issues with chronic nausea and headaches. She is ahead on credit hours at school and only has two academic classes left so her academic load is can piler which has helped. She has been accepted at [employer] and will be attending in the fall. No history of learning disorders or IEP. Social History Social History Substance and Sexual Activity Drug Use Never Social History Substance and Sexual Activity Alcohol Use Never ??? Frequency: Never Social History Substance and Sexual Activity Sexual Activity Never Family History Family History Adopted: Yes Family history unknown: Yes Mental Status Exam Appearance: within normal limits Build/stature: larger build Eye contact: sleeping Level of Consciousness: asleep Orientation: n/a Psychomotor Activity: sleeping Behavior: sleeping Affect: sleeping Mood: sleeping Speech: sleeping Verbal Expression: n/a Thought Process: n/a Thought Content: n/a Hallucinations: none reported Attention/Concentration: na/ Judgement: n/a Memory: n/a Insight: n/a Suicidal Ideation: none noted Self-Harm Behaviors: none noted Homicidal Ideation: none noted Estimated Intelligence: above average Treatment Motivation: good ICD-10 Billing Diagnosis Vasovagal syncope R55 Migraine headache G43.909 Abdominal pain R10.9 Clinical Impressions Nina Coyne is a 19 y.o. female with a history of anxiety, chronic nausea, and headaches, who was admitted to [facility] on 11/02/2019 for SYNCOPE. Primary concerns prompting this consultation were related to Assessment of emotional functioning and Pain management strategies. Findings from today's visit were limited as Nina was sleeping and information was only obtained from mother. Information obtained from mother indicates Nina appears to be coping with her recent chronic nausea, headaches, and abdominal pain to the best of her ability. Mother reported a long history of anxiety in Nina, as well as multiple significant losses including the of her best friend to a brain tumor in7th grade and the sudden loss of her same age cousin this past summer due to a fatal car accident. Nina's anxiety seems well managed at present with pharmacotherapy and ongoing biweekly outpatient therapy. It is possible there may be a somatic component to her symptom presentation given her longstanding history of anxiety, as well as her recent stressors including the loss of her cousin. She would benefit from continued involvement in outpatient therapy for ongoing support in managing her physical symptoms as well as anxiety as it arises. She may also benefit from future [facility] Comfortability for additional support in continuing efforts with return to function goals. Intervention Supportive interventions for family. Psychoeducation on the mind-body connection and evidence based approach for managing chronic pain/illness. Brief instruction in diaphragmatic breathing for coping with nausea and vomiting. Discussed opportunities for distraction and other adaptive coping strategies. Recommendations 1. Continue outpatient therapy to address anxiety and coping with chronic pain. Nina may also benefit from follow up outpatient consultation with a member of the [facility] Pediatric Psychology team in the future to address her chronic pain and return to function goals. 2. Continue pharmacotherapy (Lexapro) with primary doctor for managing anxiety. 3. Referred to the [facility] Comfortability pain management workshop. Flyer given to family today. 4. Recommend the following strategies for coping with pain and other physical symptoms: o Take frequent short breaks while completing school work and other responsibilities to eat, drink,and/or walk around. o Limit daytime naps to 60 minutes and work toward no daytime sleeping. o Limit attention given to pain and other physical symptoms, as increased attention may increase anxiety and can also contribute to ineffective coping behaviors. o Continue to implement distraction for adaptive coping. Preferred activities may include watching the [employer] or [employer], text messaging with a friend, and spending time with a friend. o Implement relaxation techniques for coping with pain and other physical symptoms: - Diaphragmatic breathing - recommended for coping with nausea - Guided imagery - Progressive muscle relaxation Discussed these impression and recommendations with the family and team today. They were given an opportunity to ask questions and indicated understanding. Plan A member of the [facility] Psychology team will try to see Nina tomorrow for targeted practice of diaphragmatic breathing, but family was instructed to call if any needs arise if not able to meet with Psychology due to plan for Nina to participate in gastric emptying study tomorrow. Nina will continueoutpatient therapy and pharmacotherapy. It was a pleasure to meet Nina and her family. Please contact me with any questions or concerns. Magnolia Moreno, PhD Licensed Psychologist Call/Text: [phone] Start Time: 3:30pm Stop Time: 4:15pm Total Time: 45 minutes CPT: 98375, Health & Behavior Assessment AINER FILLER * Franklin Young MD - 11/03/2019 3:27 PM CSTAssociated Order(s): IP CONSULT TO CARDIOLOGY Cardiology Consult Note Patient Name: Nina Coyne : 2000 Date: 11/03/19 Reason for consult: Syncope Requesting service: General Pediatrics Requesting provider: Elpidio Gimenez MD HPI: Nina Coyne is a 19 y.o. with multiple episodes of syncope over the last two weeks. She was admitted yesterday for an episode occurring at school. She was in dance practice and started to feel very nauseated. She went to the locker room and her vision was fuzzy. Then over the next 10-15 minutes she describes symptoms of the room spinning, shortness of breath, and minimal chest pain. She lost consciousness and it took 5-10 minutes for her to be responsive. She had another episode ofsyncope in the ED yesterday evening. Her first episode of syncope occurred on 10/23/19 when she stood up from standing. All her episodes of syncope are proceeded by a prodrome with symptoms of fuzzy vision, nausea, roomspinning, and shortness of breath. Notably, she has been ill since July with severe nausea and vomiting. She was admitted in August with severe vomiting. During that admission she had a normal brain MRI. Her mother notes that her symptoms of nausea and vomiting are almost always proceeded by lying down and then getting up. She also has recently developed morning headaches. No reported new stressors at school. She participates in dance and denies chest pain with exertion or any previous syncope. Family history is unknown given she is adopted. She endorses drinking about 60-80 ounces of water per day and minimal caffeine. Her urine is yellowwhen she goes to the bathroom. She has symptoms of lightheadedness with position change for which she will sit down. Nina was previously followed by cardiology in 2017 for dizziness and chest pain. She had a few ECGs at that time, two of which showed a low atrial rhythm and normal 24 hour Holter monitor. ROS: General: negative with no weight loss or weight gain Cardiac: +syncope Pulmonary: negative with no history of asthma, no respiratory issues GI: + nausea and vomiting Renal: negative with no change in urine output. No history of kidney abnormalities Heme: negative with no easy bruising or prolonged bleeding Neuro: + headache Skin: negative with no rash, jaundice or cyanosis HEENT: negative with no ear or eye abnormalities, normal dentition Musculoskeletal: negative, no joint deformities or edema. Allergies: Allergies Allergen Reactions ??? Dog Dander Hives Reaction: HIVES, ??? Penicillins Other (See comments) and Rash As a child Reaction: NAUSEA;, As a child Current medications: Current Facility-Administered Medications Medication Dose Route Frequency Provider Last Rate Last Dose ??? acetaminophen (TYLENOL) tablet 650 mg 650 mg oral Q6H PRN Arnoldo Esposito MD ??? dextrose 5% and sodium chloride 0.9% with potassium chloride 20 mEq/L infusion (premix) 1.5 L/m2/day intravenous Continuous Viktor Villagomez MD 133.8 mL/hr at 11/03/19 0809 1.5 L/m2/dayat 11/03/19 0809 ??? escitalopram (LEXAPRO) tablet 20 mg 20 mg oral Nightly Viktor Villagomez MD 20 mg at 11/03/194 ??? fluticasone furoate-vilanteroL (BREO ELLIPTA) 100-25 mcg/dose inhaler 1 puff 1 puff inhalation Nightly Viktor Villagomez MD 1 puff at 11/03/19 0347 ??? lansoprazole (PREVACID) capsule 15 mg 15 mg oral BID Viktor Villagomez MD 15 mg at 11/03/19 0941 ??? norgestimate-ethinyl estradioL (ORTHO TRI-CYCLEN LO) 0.18/0.215/0.25 mg-25 mcg per tablet 1 tablet 1 tablet oral Nightly Viktor Villagomez MD 1 tablet at 11/03/19223 ??? nortriptyline (PAMELOR) capsule 10 mg 10 mg oral Daily Viktor Villagomez MD 10 mg at 11/03/19 0942 ??? nortriptyline (PAMELOR) capsule 20 mg 20 mg oral Nightly Viktor Villagomez MD 20 mg at11/03/19 0224 Problem List: Patient Active Problem List Diagnosis ??? Migraine headache ??? Obesity ??? Asthma, moderate persistent, well-controlled ??? Abnormal electrocardiography ??? Dander (animal) allergy ??? Vitamin D deficiency ??? Irregular menses ??? Abdominal pain ??? Asthma ??? Anxiety ??? Chronic nausea ??? Mild malnutrition (CMS/HCC) ??? Vasovagal syncope Past Medical History: Past Medical History: Diagnosis Date ??? Abdominal pain 07/20/2019 ??? Abnormal electrocardiography 01/19/2017 Annotation: Saw cardiology 2016 and was cleared, repeat 08/25/19 Normal sinus rhythm with sinus arrhythmia with short OK ??? Anxiety 07/20/2019 ??? Asthma ??? Nausea 08/15/2019 ??? Vomiting multiple times per week Surgical History: Past Surgical History: Procedure Laterality Date ??? WRIST SURGERY Family History: Family History Adopted: Yes Family history unknown: Yes Social History: Social History Social History Narrative Adoptive mother : (Added by AYAD Paez) No secondhand smoke exposure : (Added by AYAD Paez) Senior in high school and is planning to go to [employer] next year to study health sciences. Physical Exam: BP 112/79 (BP Location: Left arm, Patient Position: Lying) Pulse 86 Temp 36.3 ??C (97.3 ??F) (Temporal) Resp 18 Ht 163 cm (5' 4.17 ) Wt 99.6 kg (219 lb 9.3 oz) LMP 10/29/2019 (Approximate) SpO2 97% BMI 37.49 kg/m?? Body mass index is 37.49 kg/m??. 99 %ile (Z= 2.17) based on CDC (Girls, 2-20 Years) BMI-for-age based on BMI available as of 11/03/2019. I/O last 2 completed shifts: In: 705 [I.V.:705] Out: 0 I/O this shift: In: 730 [I.V.:730] Out: 200 [Urine:200] General: non-dysmorphic, no distress HEENT: normocephalic, atraumatic, normal external nose, normally set ears, normal sclerae, conjunctivae and lids Neck: Supple, no masses Chest: no chest wall deformities Lungs: Normal work of breathing. Lungs clear to auscultation bilaterally with good aeration. No rales, no retractions. Cardiac: Normally active precordium. Distant heart sounds, normal S1 and S2, no murmur appreciated.No S3/S4/Click/rub. Pulses 2+ in radial and femoral arteries. Abdomen: Soft, non-distended, difficult to appreciate organomegaly given body habitus Skin: No rash or cyanosis Extremities: no joint deformities, no edema, normal capillary refill Musculoskeletal: normal muscle mass and normal strength in extremities. Neurologic: No focal deficits, normal tone, no abnormal movements Tests & Labs: Imaging: Results for orders placed during the hospital encounter of 11/02/19 XR Chest Pa Lateral 2 Views Narrative EXAMINATION: XR CHEST PA LATERAL 2 VIEWS HISTORY: 19-year-old girl with syncope. COMPARISON: Chest radiograph dated 07/17/2013 FINDINGS: The lungs are clear. There is no pleural effusion or pneumothorax. The cardiomediastinal silhouette is normal in appearance. Impression Normal. Dictated by: Db Gonzalez M.D. The radiology attending physician has personally reviewed this study, and had reviewed and/or edited this written report and agrees with it. Electronically signed by: Sherly To M.D. Labs: CBC: Recent Labs Lab Units 11/02/19 2213 WBC K/cumm 10.2* HEMOGLOBIN g/dL 12.7 HEMATOCRIT % 38.0 BMP: Recent Labs Lab Units 11/02/19 2213 CO2 WB mmol/L 26 ANIONGAP, WHOLE BLOOD mmol/L 9 CREATININE WB mg/dL 0.8 BNP: No results for input(s): BNP in the last 8736 hours. Cardiac studies: I have personally reviewed and interpreted all cardiac studies. Date: 11/03/19 EKG: Normal siuns rhythm with low voltage QRS in lateral precordial leads and a QTc of 445 msec. Assessment/Plan: Nina Coyne is a 19 y.o. with recurrent typical syncope with prodrome. Her history and evaluation are most consistent with vasovagal syncope. In patients with cardiac causes of syncope such as arrhythmia we would not expect a prodrome or a prodrome that is best characterized by palpitations. Even so it is impossible to rule out arrhythmias without evaluating the rhythm during an episode therefore, we will give her a 30 day looping event recorder after discharge and follow up in 6-8 weeks. Her symptoms of of prodrome are fairly classic for vasovagal events except for her vertigo. While it is possible that hypoperfusion to the brain can lead to vertigo, recurrent nausea/vomiting in the morning or after sleep, with headaches, and vertigo is concerning for increased ICP. We und, headaches, and vertigo are concerning from a primary intracranial pathology causing an increase in her ICP.We understand she has had a normal brain MRI and we agree with neurology evaluation for further investigation. - 30 day looping event recorder after discharge home - Cardiology follow up in 6-8 weeks. - Advised patient and mother to increase fluid intake until urine is clear. - Recommend isometric exercises when feeling prodrome or prior to standing. - Agree with neurology evaluation given symptoms of morning nausea.vomitng, morning headaches, and vertigo which could be concerning for intracranial pathology. Franklin Young MD Pediatric Payroll Director Thank you for allowing us to participate in the care of this patient. If you have any additional questions, please feel free to contact the cardiology consult fellow at [phone] during weekdays 8:30am-4pm. On nights and weekends, the on-call blood bank specialist can be reached at [phone]. Appointments for patients can be made by calling the office at [phone]. Cosigned by Aimee Curry MD at 11/03/2019 4:44 PM CONTAINER FILLER AINER FILLER AINER FILLER Associated attestation - Aimee Curry MD - 11/03/2019 4:44 PM CONTAINER FILLER I have seen and examined the patient on 11/03/19. I agree with the findings and plan of care as documented in the resident's/fellow's note. * Florina Colby MD - 11/03/2019 12:55 PM CSTAssociated Order(s): IP CONSULT TO GASTROENTEROLOGY Pediatric GI Consult Subjective Patient is a 19 y.o. female with chief complaint of syncopal episode. Reason for consult: medication adjustment for cyclic vomiting. Requesting Provider: Dr. Elpidio Gimenez HPI: Nina is a 19 year old woman with a history of chronic nausea, headaches, and anxiety who presentedfollowing a syncopal episode. GI was consulted for re-evaluation of medications. Nina has had chronic abdominal pain, nausea andemesis. Abdominal pain is described as periumbilical pressure daily. Pain does not radiate anywhereand is intermittent in intensity. She has nausea daily and intermittent NBNB emesis. Last episode of emesis was on Thursday. Nina is currently followed by us closely. She seemed to have improvement with the noritripyline. She states she has continued to have emesis but no vomiting once the noritripyline was increased to 40mg daily (around 10/17/19). She had no emesis while on this dose but did still have some nausea. Shehad her first episode of syncope on 10/23/19. Noritripyline was decreased back to 30mg daily. Since that time she has continued to have persistent nausea but no emesis. Nina has had an extensive work up in the past for her GI symptoms. A CT of the abdomen on 07/21 showed the ovarian cyst in 2018. She was admitted to the hospital from 09/13-09/20. On 09/14 she underwent esophogastroduodenoscopy which was visually unremarkable. Pathology showed chronic inactive gastritis. An ECG was within normal limits with no concern for QT prolongation. UGI series on 09/14 was wnl. Labs including CBC, CMP, lipase, amlyase, TSH, free T4. ROS is positive for headaches and lightheadness. I have reviewed: allergies, current medications, past family history, past medical history, past social history, past surgical history and problem list She has a past medical history of Abdominal pain (07/20/2019), Abnormal electrocardiography (01/19/2017), Anxiety (07/20/2019), Asthma, Nausea (08/15/2019), and Vomiting. She has a past surgical history that includes Wrist surgery. Her She was adopted. Family history is unknown by patient. She reports that she has never smoked. She does not have any smokeless tobacco history on file. Shereports that she does not drink alcohol or use drugs. She @CMEDP@ She is allergic to dog dander and penicillins. Review of Systems: Constitutional: Negative for chills, fever and weight loss. HENT: Negative for congestion, ear pain and sore throat. Eyes: Negative for blurred vision, double vision, photophobia, pain, discharge and redness. Respiratory: Negative for cough, shortness of breath and wheezing. Cardiovascular: Negative for chest pain, palpitations, orthopnea, claudication and leg swelling. Gastrointestinal: Positive for abdominal pain, nausea and vomiting. Negative for blood in stool, constipation and diarrhea. Genitourinary: Negative for dysuria, flank pain, frequency, hematuria and urgency. Musculoskeletal: Negative for back pain, joint pain, myalgias and neck pain. Skin: Negative for rash. Neurological: Positive for dizziness, loss of consciousness and headaches. Negative for speech change, focal weakness and seizures. Endo/Heme/Allergies: Positive for environmental allergies. Does not bruise/bleed easily. Psychiatric/Behavioral: Negative for depression and suicidal ideas. The patient is nervous/anxious. Objective Vitals: Vitals 24 hour ranges: Temp: [36.1 ??C (97 ??F)-37.2 ??C (99 ??F)] Pulse: [72-120] Resp: [17-22] BP: (103-145)/(71-117) Most Recent : Vitals: 11/03/19 1155 BP: 112/79 Pulse: 86 Resp: 18 Temp: 36.3 ??C (97.3 ??F) SpO2: 97% I/O last 2 completed shifts: In: 705 [I.V.:705] Out: 0 I/O this shift: In: 164 [I.V.:164] Out: 200 [Urine:200] Physical Exam: Constitutional: General: No acute distress. She is obese. She is not ill-appearing. HENT: Head: Normocephalic and atraumatic. Nose: Nose normal. No congestion or rhinorrhea. Mouth/Throat: Mouth: Mucous membranes are moist. Pharynx: Oropharynx is clear. No oropharyngeal exudate or posterior oropharyngeal erythema. Eyes: Extraocular Movements: Extraocular movements intact. Conjunctiva/sclera: Conjunctivae normal. Pupils: Pupils are equal, round, and reactive to light. Neck: Musculoskeletal: Normal range of motion and neck supple. No neck rigidity. Cardiovascular: Rate and Rhythm: Normal rate and regular rhythm. Pulses: Normal pulses. Heart sounds: Normal heart sounds. No murmur. No friction rub. No gallop. Pulmonary: Effort: Pulmonary effort is normal. No respiratory distress. Breath sounds: Normal breath sounds. No wheezing. Abdominal: General: Abdomen is flat. Bowel sounds are normal. There is no distension. Palpations: Abdomen is soft. Tenderness: There is no abdominal tenderness. There is no guarding or rebound. Skin: General: Skin is warm and dry. Capillary Refill: Capillary refill takes less than 2 seconds. Findings: No rash. Neurological: General: No focal deficit present. Sleepy. Lab/Radiology/Diagnostic Review: Laboratory: Lab results in the last 24 hours: Recent Results (from the past 24 hour(s)) ECG 12 lead Collection Time: 11/02/19 10:10 PM Result Value Ref Range Ventricular Rate EKG/Min 83 BPM Atrial Rate 83 BPM OK-Interval (MSEC) 138 ms QRS-Interval (MSEC) 78 ms QT-Interval (MSEC) 374 ms QTc 445 ms P [place] 26 degrees R [place] -4 degrees T [place] 0 degrees Diagnosis Normal sinus rhythm Low voltage QRS Early repolarization Otherwise normal ECG When compared with ECG of 24-OCT-2019 02:51, QT has shortened Confirmed by fellow MD NESTOR, ROGELIO ([id number]) on 11/03/2019 12:52:32 AM I have personally reviewed the study and I agree with the above findings Confirmed by MD NISHA, FELICE ([id number]) on 11/03/2019 7:09:59 AM CBC with auto differential Collection Time: 11/02/19 10:13 PM Result Value Ref Range WBC 10.2 (H) 3.8 - 9.9 K/cumm Hgb 12.7 11.9 - 15.5 g/dL Hct 38.0 35.6 - 45.5 % Plt 357 150 - 400 K/cumm MPV 9.5 9.1 - 12.3 fL RBC 4.29 3.90 - 5.20 M/cumm MCV 88.6 81.3 - 96.4 fL MCH 29.6 27.1 - 33.3 pg MCHC 33.4 32.3 - 35.7 g/dL RDW CV 13.3 11.1 - 14.9 % RDW SD 43.4 35.7 - 48.1 fL NRBC abs 0.00 0.00 - 0.01 K/cumm Electrolytes, whole blood Collection Time: 11/02/19 10:13 PM Result Value Ref Range Sodium, Whole Blood 140 135 - 145 mmol/L Potassium, bld 3.7 3.3 - 4.9 mmol/L Chloride, bld 106 100 - 114 mmol/L CO2, Total Calculated, Whole Blood 26 20 - 30 mmol/L Anion Gap, Whole Blood 9 mmol/L Glucose, whole blood Collection Time: 11/02/19 10:13 PM Result Value Ref Range Glucose, bld 81 70 - 199 mg/dL Calcium, ionized, whole blood Collection Time: 11/02/19 10:13 PM Result Value Ref Range Ca, ionized, bld 4.65 3.90 - 5.20 mg/dL Creatinine, whole blood Collection Time: 11/02/19 10:13 PM Result Value Ref Range Creatinine, bld 0.8 0.4 - 1.0 mg/dL Troponin I Collection Time: 11/02/19 10:13 PM Result Value Ref Range Troponin I <0.03 0.00 - 0.03 ng/mL Differential, auto Collection Time: 11/02/19 10:13 PM Result Value Ref Range Neutrophil abs 6.1 1.7 - 6.5 K/cumm Imm gran abs 0.0 0.0 - 0.1 K/cumm Lymphocyte abs 2.8 0.8 - 3.3 K/cumm Monocyte abs 0.9 (H) 0.2 - 0.8 K/cumm Eosinophil abs 0.4 0.0 - 0.5 K/cumm Basophil abs 0.1 0.0 - 0.1 K/cumm Neutrophil pct 59.2 % Imm gran pct 0.4 % Lymphocyte pct 27.3 % Monocyte pct 8.8 % Eosinophil pct 3.5 % Basophil pct 0.8 % hCG, blood, quantitative Collection Time: 11/02/19 11:39 PM Result Value Ref Range hCG, quant <5.0 0.0 - 5.0 IUnits/L Assessment Nina is a 19 year old woman with a history of chronic nausea, headaches, and anxiety who presentedfollowing a syncopal episode.GI was consulted for re- evaluation of medications used for chronic abdominal pain, nausea and emesis. 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 It seems that she has had improvement with the addition of the noritripyline. Therefore, would consider continuing it unless, there it is thought to be the primary cause of these recurrent episodes of syncope. Agree with psychologist evaluation. Discussed with both psychologist and mother that she may be a good candidate for the chronic abdominal pain workshop. RECCOMENDATIONS: - Obtain the gastric emptying study. - Continue noritripyline at 30mg daily. If it is thought to be the primary cause of syncope decrease to 20mg daily. - Agree with psychology consult. Information regarding chronic pain workshop given to mother. - Agree with consulting neurology. Thank you for the consult on Nina. Please call with any questions or concerns. Cosigned by Trudi Garnett MD at 11/03/2019 7:53 PM CONTAINER FILLER AINER FILLER AINER FILLER Associated attestation - Trudi Garnett MD - 11/03/2019 7:53 PM CONTAINER FILLER I have seen and examined the patient on 11/03/19. I agree with the findings and plan of care as documented in the fellow's note. documented in this encounter Nursing Notes * Vicki Anand RN - 11/06/2019 3:38 PM CDT Pt discharged in stable condition with mother. Went over all discharge paperwork. Answered all questions. No other concerns at this time. documented in this encounter ED Notes * Florina Loco MD - 11/02/2019 10:12 PM CST HPI Chief Complaint Patient presents with ??? Syncope HPI 19 y.o. female PMH obesity, chronic nausea, anxiety presenting with syncopal event. The patient woke up with a headache today, occipital and frontal. She did not take tylenol or ibuprofen. She has also had frequent dizziness that is being evaluated by her primary care provider. This afternoon at school her dizziness was worse and she felt weird. She called her mom who came to pick her up. She was sitting on the floor, when she slumped over and had LOC w/o hitting her head. She was unconsciousfor 10 minutes. There was no tonic clonic activity. EMS was called. Glucose on EMS presentation was68. They gave her zofran because she was having nausea. She describes her headache as throbbing in nature. She does not have abdominal pain. She describes her dizziness as spinning, but cannot name adirection and really she feels wobbly. She has chronic nausea and takes nortriptyline for this, herdose was recently decreased. She denies chest pain, SOB, blurred vision, weakness, numbness or lower extremity swelling. Patient sees GI here and has upcoming neurology appointment. Social hx: no tobacco, alcohol or drug use Family hx: patient adopted, no known family hx of DM, HTN Patient History Patient Active Problem List Diagnosis Date Noted ??? Vasovagal syncope 10/25/2019 ??? Mild malnutrition (CMS/[facility]) 09/15/2019 ??? Chronic nausea 08/15/2019 ??? Abdominal pain 07/20/2019 ??? Asthma 07/20/2019 ??? Anxiety 07/20/2019 ??? Vitamin D deficiency 08/17/2018 ??? Irregular menses 08/17/2018 ??? 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 Abnormal electrocardiography 01/19/2017 Class: Chronic ??? Obesity 02/22/2015 Class: Chronic ??? Asthma, moderate persistent, well-controlled 02/22/2015 Class: Chronic ??? Migraine headache 07/10/2014 Class: Chronic Past Medical History: Diagnosis Date ??? Abdominal pain 07/20/2019 ??? Abnormal electrocardiography 01/19/2017 Annotation: Saw cardiology 2016 and was cleared, repeat 08/25/19 Normal sinus rhythm with sinus arrhythmia with short OK ??? Anxiety 07/20/2019 ??? Asthma ??? Nausea 08/15/2019 ??? Vomiting multiple times per week Past Surgical History: Procedure Laterality Date ??? WRIST SURGERY Family History Adopted: Yes Family history unknown: Yes Social History Tobacco Use ??? Smoking status: Never Smoker Substance Use Topics ??? Alcohol use: Not on file ??? Drug use: Not on file Social History Social History Narrative Adoptive mother : (Added by AYAD Conv) No secondhand smoke exposure : (Added by AYAD Paez) Review of Systems Review of Systems Constitutional: Negative for chills and fever. HENT: Negative for congestion and sore throat. Eyes: Negative for pain and visual disturbance. Respiratory: Negative for cough and shortness of breath. Cardiovascular: Negative for chest pain and palpitations. Gastrointestinal: Negative for abdominal pain, nausea and vomiting. Genitourinary: Negative for decreased urine volume, dysuria and hematuria. Musculoskeletal: Negative for arthralgias and back pain. Skin: Negative for color change and rash. Neurological: Positive for dizziness, syncope and headaches. Negative for seizures and weakness. All other systems reviewed and are negative. Physical Exam ED Triage Vitals Temp Pulse Resp BP SpO2 11/02/19 1737 11/02/19 1737 11/02/19 1737 11/02/19 1737 11/02/19 1737 37.2 ??C (99 ??F) 82 20 122/88 100 % Temp src Heart Rate Source Patient Position BP Location FiO2 (%) 11/02/19 173 -- 11/02/19 2133 11/02/192132 -- Temporal Lying Left arm Physical Exam Vitals signs reviewed. Constitutional: General: She is not in acute distress. Appearance: She is well-developed. HENT: Head: Normocephalic and atraumatic. Right Ear: Tympanic membrane normal. Left Ear: Tympanic membrane normal. Nose: Nose normal. Mouth/Throat: Mouth: Mucous membranes are moist. Eyes: Extraocular Movements: Extraocular movements intact. Right eye: No nystagmus. Left eye: No nystagmus. Conjunctiva/sclera: Conjunctivae normal. Pupils: Pupils are equal, [...] no abdominal tenderness. There is no guarding. Musculoskeletal: Normal range of motion. General: No swelling or tenderness. Skin: General: Skin is warm and dry. Capillary Refill: Capillary refill takes less than 2 seconds. Neurological: General: No focal deficit present. Mental Status: She is alert and oriented to person, place, and time. Cranial Nerves: No cranial nerve deficit. Sensory: No sensory deficit. Motor: No weakness. Psychiatric: Mood and Affect: Mood normal. MDM MDM 19 y.o. female PMH obesity, chronic nausea, anxiety presenting with syncopal event. Assessment: well appearing female, obese presenting with syncopal event, 10 minutes in length, no seizure like activity noted, did not hit her head or fall, she had a second syncope event in triage, patient taking TCA for chronic nausea per GI, as well as escitalopram for anxiety, recently reduced her dose of TCA, she has no chest pain or SOB, patient is hypertensive now, which is new per mom, orthostatics positive, hypertension may be related to headache or may be cause of headache, she has nofocal neurologic deficits at this time, low suscpicion for ACS as cause for syncope and dizziness, orthostatic hypotension or POTS may be cause, strong suspicion for polypharmacy or iatrogenic cause or dizziness/light headedness, will obtain EKG and compare to recent visit on 10/25, electrolytes, CBC, troponin, CXR and poc urine hcg Differential: polypharmacy, orthostatic hypotension, migraine, vasovagal syncope, POTS, ACS (less likely), electrolyte abnormality Plan: 1. CBC, BMP, troponin 2. EKG, CXR 3. Migraine cocktail 4. Urine preg Dispo: pending work up and reassessment ED Course as of Nov 02 12 Time: 11/02 2247 Comment: CXR normal, CBC unremarkable, electrolytes normal By: Florina Loco MD Time: 11/02 2319 Comment: Patient's headache is improved, dizziness improving, mother does not feel comfortable taking the patient home given she had a 10 minute syncopal episode. Will admit for further work up to hospitalist. By: Florina Loco MD Time: 11/03 2319 Comment: Signout from Dr Loco By: Felix Parker MD Time: 11/02 2 Comment: Signed out to IP team. By: Florina Loco MD Final diagnoses: Syncope, unspecified syncope type Florina Loco MD Resident 11/03/19 0013 Cosigned by Grazyna Capps MD at 11/16/2019 7:49 AM CDT AINER FILLER Associated attestation - Grazyna Capps MD - 11/16/2019 7:49 AM CDT I have seen and examined the patient on 11/02/2019 . I agree with the findings and plan of care as documented in the resident's note. * Jennifer Lorenzo, RN - 11/02/2019 5:35 PM CST Patient arrives by EMS due to syncopal episode at 1615. Patient has had a headache all day and was feeling dizzy. Didn't hit head but had LOC x10 minutes. Remains dizzy and with a headache at this time. Blood sugar per EMS 68. IV in place, and 4mg IV Zofran given at 1630. AINER FILLER documented in this encounter Miscellaneous Notes * Plan of Care - Vicki Anand RN - 11/06/2019 3:40 PM CDT Problem: Activity: Goal: Risk for activity intolerance will decrease Outcome: Adequate for Discharge Goal: Ability to follow a routine sleep schedule will improve Outcome: Adequate for Discharge Problem: Lack of Knowledge: Goal: Knowledge of disease or condition will improve Outcome: Adequate for Discharge Problem: Fluid Volume: Goal: Ability to maintain a balanced intake and output will improve Outcome: Adequate for Discharge Problem: Nutritional: Goal: Ability to attain and maintain optimal nutritional status will improve Outcome: Adequate for Discharge Problem: Safety: Goal: Ability to remain free from injury will improve Outcome: Adequate for Discharge Problem: Self-Care: Goal: Ability to participate in self-care as condition permits will improve Outcome: Adequate for Discharge Problem: Sensory: Goal: Pain level will decrease Outcome: Adequate for Discharge Problem: Health Behavior: Goal: Understanding of discharge needs will improve Outcome: Adequate for Discharge Goals: Clinical Goals for the Shift: pain control, increase PO Summary: stable for d/c * Assessment & Plan Note - Sera Gonzalez MD - 11/06/2019 10:30 AM CDT Associated Problem(s): Vasovagal syncope Nina presented following several syncopal episodes lasting seconds to minutes. Preceded by prodrome of dizziness, feeling off, headaches, sometimes nausea. No seizure-like activity, apnea, chest pain during episodes. Workup largely reassuring, including normal Brain MRI from previous admission. EMS glucose 68. Positive orthostatic changes in ED. ECG on 10/24 with prolonged QTc. Exam unremarkable,no focal neurologic deficits. Given rapid onset with prodrome and rapid recovery to baseline, presentation seems consistent with vasovagal syncope. Cardiology has also seen and agree that this is themost likely cause, but would like to have [...] Cardiology, and GI recommendations - PT consult * Assessment & Plan Note - Sera Gonzalez MD - 11/06/2019 10:30 AM CDT Associated Problem(s): Chronic nausea GI was consulted as she was scheduled to have a GES today and there was some onset around the same time her nortriptyline was increased. They feel her vomiting is likely functional in nature and feelshe would benefit from following with the Functional [facility] clinic. If we do think these current symptoms are related to her nortriptyline, they recommended decreasing to 20mg. Psychology hasseen her and recommend continued follow up. Gastric emptying study was normal. Plan: - decrease home nortriptyline to 10 mg morning, 10 mg night per GI recommendations. - Continue home lexapro 20 mg - Referral to [facility] * Assessment & Plan Note - Sera Gonzalez MD - 11/06/2019 10:29 AM CDT Associated Problem(s): History of migraine headaches Patient with daily headaches for the past [...] therapy recommended. -- outpatient follow-up with Neurology. * Subjective & Objective - Sera Gonzalez MD - 11/06/2019 10:24 AM CDT Pediatric Daily Progress Subjective Chief complaint of loss of counciousness. Interval History: Nina received 3 migraine cocktails (toradol, compazine, and bendadryl) yesterday. She slept well overnight. PT met with family yesterday. During PT she was able to complete short bouts of movement prior to needing a rest break. Ambulates to hallway and back with intermittent HHAand decreased renay. Reports dizziness upon moving to sit and sit to stand, that resolves after about 30 seconds. See note by Vicki Javier, RIAN for more details. This morning she denies headache. She was able to tolerate PO intake without emesis. Objective Vitals: Vitals 24 hour ranges: Temp: [36.4 ??C (97.5 ??F)-37.1 ??C (98.8 ??F)] Pulse: [88-102] Resp: [17-23] BP: (106-122)/(70-85) I/O last 2 completed shifts: In: 1449 [P.O.:830; I.V.:619] Out: 1650 [Urine:1650] I/O this shift: In: 0 Out: 100 [Urine:100] Physical Exam: General:well appearing, cooperative, no acute distress and asleep Lungs:clear to auscultation bilaterally, normal WOB and good air movement Heart:regular rate and rhythm, normal S1 and S2 and no murmur, rubs, or gallops Abdomen:soft, non-tender, non-distended, bowel sounds present, no masses and no organomegaly Pulses:2+ pulses and symmetric Skin:no rashes or lesions and no jaundice Neurologic:face symmetric and sleeping Lab/Radiology/Diagnostic Review: Laboratory review: Lab results in the last 24 hours: No results found for this or any previous visit (from the past 24 hour(s)). * Plan of Care - Melany Francisco RN - 11/06/2019 4:21 AM CDT Goals: Clinical Goals for the Shift: pain control, monitor I&O Problem: Activity: Goal: Risk for activity intolerance will decrease Outcome: Progressing Goal: Ability to follow a routine sleep schedule will improve Outcome: Progressing Problem: Lack of Knowledge: Goal: Knowledge of disease or condition will improve Outcome: Progressing Problem: Fluid Volume: Goal: Ability to maintain a balanced intake and output will improve Outcome: Progressing Problem: Nutritional: Goal: Ability to attain and maintain optimal nutritional status will improve Outcome: Progressing Problem: Safety: Goal: Ability to remain free from injury will improve Outcome: Progressing Problem: Self-Care: Goal: Ability to participate in self-care as condition permits will improve Outcome: Progressing Problem: Sensory: Goal: Pain level will decrease Outcome: Progressing Summary: * Plan of Care - Vicki Anand RN - 11/05/2019 5:57 PM CST Problem: Activity: Goal: Risk for activity intolerance will decrease Outcome: Progressing Goal: Ability to follow a routine sleep schedule will improve Outcome: Progressing Problem: Lack of Knowledge: Goal: Knowledge of disease or condition will improve Outcome: Progressing Problem: Fluid Volume: Goal: Ability to maintain a balanced intake and output will improve Outcome: Progressing Problem: Nutritional: Goal: Ability to attain and maintain optimal nutritional status will improve Outcome: Progressing Problem: Safety: Goal: Ability to remain free from injury will improve Outcome: Progressing Problem: Self-Care: Goal: Ability to participate in self-care as condition permits will improve Outcome: Progressing Problem: Sensory: Goal: Pain level will decrease Outcome: Progressing Goals: Clinical Goals for the Shift: pain control, monitor I&O Summary: headaches 4-7, received migraine cocktail AINER FILLER * Assessment & Plan Note - Sera Gonzalez MD - 11/05/2019 2:21 PM CONTAINER FILLER Associated Problem(s): History of migraine headaches Patient with daily headaches for the past [...] therapy recommended. -- outpatient follow-up with Neurology. AINER FILLER AINER FILLER * Assessment & Plan Note - Sera Gonzalez MD - 11/05/2019 2:18 PM CONTAINER FILLER Associated Problem(s): Vasovagal syncope Nina presented following several syncopal episodes lasting seconds to minutes. Preceded by prodrome of dizziness, feeling off, headaches, sometimes nausea. No seizure-like activity, apnea, chest pain during episodes. Workup largely reassuring, including normal Brain MRI from previous admission. EMS glucose 68. Positive orthostatic changes in ED. ECG on 10/24 with prolonged QTc. Exam unremarkable,no focal neurologic deficits. Given rapid onset with prodrome and rapid recovery to baseline, presentation seems consistent with vasovagal syncope. Cardiology has also seen and agree that this is themost likely cause, but would like to have [...] - PT consult for isometric exercise teaching AINER FILLER AINER FILLER * Assessment & Plan Note - Sera Gonzalez MD - 11/05/2019 2:12 PM CONTAINER FILLER Associated Problem(s): Chronic nausea GI was consulted as she was scheduled to have a GES today and there was some onset around the same time her nortriptyline was increased. They feel her vomiting is likely functional in nature and feelshe would benefit from following with the Functional Ab[facility] clinic. If we do think these current symptoms are related to her nortriptyline, they recommended decreasing to 20mg. Psychology hasseen her and recommend continued follow up. Gastric emptying study was normal. Plan: - decrease home nortriptyline to 10 mg morning, 10 mg night per GI recommendations. - Continue home lexapro 20 mg - Referral to [facility] AINER FILLER * Subjective & Objective - Sera Gonzalez MD - 11/05/2019 2:04 PM CONTAINER FILLER Pediatric Daily Progress Subjective Chief complaint of loss of counciousness. Interval History: Nina slept well overnight. This morning she endorses headache, that is worse when she sits up or stands. She was able to tolerate dinner last night without emesis. Objective Vitals: Vitals 24 hour ranges: Temp: [36.4 ??C (97.5 ??F)-36.9 ??C (98.4 ??F)] Pulse: [85-102] Resp: [14-23] BP: (108-122)/(64-92) I/O last 2 completed shifts: In: 3510.05 [P.O.:700; I.V.:2810.05] Out: 2950 [Urine:2950] I/O this shift: In: 749 [P.O.:130; I.V.:619] Out: 1450 [Urine:1450] Physical Exam: General:well appearing, cooperative, no acute distress and asleep Lungs:clear to auscultation bilaterally, normal WOB and good air movement Heart:regular rate and rhythm, normal S1 and S2 and no murmur, rubs, or gallops Abdomen:soft, non-tender, non-distended, bowel sounds present, no masses and no organomegaly Pulses:2+ pulses and symmetric Skin:no rashes or lesions and no jaundice Neurologic:face symmetric and sleeping Lab/Radiology/Diagnostic Review: Laboratory review: Lab results in the last 24 hours: Recent Results (from the past 24 hour(s)) Cortisol Collection Time: 11/05/19 8:28 AM Result Value Ref Range Cortisol 20.2 (H) 4.8 - 19.5 mcg/dL AINER FILLER * Plan of Care - Jaswant Phan RN - 11/04/2019 11:56 PM CST Goals: Clinical Goals for the Shift: comfort; no further syncopal episode Summary: Reviewed overnight plan of care with patient, mother. Encouraged po, safety, comfort, rest. AINER FILLER * Plan of Care - Haily Becker RN - 11/04/2019 6:25 PM CST Goals: Clinical Goals for the Shift: comfort; no further syncopal episode Summary: Problem: Activity: Goal: Risk for activity intolerance will decrease Outcome: Progressing Problem: Fluid Volume: Goal: Ability to maintain a balanced intake and output will improve Outcome: Not Progressing Problem: Safety: Goal: Ability to remain free from injury will improve Outcome: Progressing AINER FILLER * Hospital Course - Sera Gonzalez MD - 11/04/2019 6:02 PM CONTAINER FILLER On admission, she had no further episodes of loss of consciousness, but did continue to have headaches. Cardiology was consulted and felt this was unlikely to be an arrhythmia due to prodromal symptoms. They felt this was more likely a vasovagal episode, but would like to have her wear a 30day monitor and follow up as an outpatient. She had an LP on 11/03 which showed an opening pressure of 27 and normal cell counts. Neurology saw her as an inpatient and felt the slight increase in pressure was due to her obesity rather than IIH, given that the lack of a positional component and normal fundoscopic exam suggested otherwise. They also felt this was consistent with a vasovagal episode and that headaches could be attributed to migraines. She will follow up with neurology as an outpatient and will start Topiramate for migraine prophylaxis once nortriptyline is fully weaned off. She received a migraine cocktail consisting of toradol, compazine, and benadryl every 6 hours x3 with resolution ofher headache. GI was consulted as she was scheduled to have a GES on 11/03 and the onset of episodes seemed to be around the same time her nortriptyline was increased. GES was preformed on 11/03 and was normal. They felt her vomiting was likely functional in nature and feel she would benefit from following with the [facility] Pain clinic. They recommended decreasing Nortrytilline to 10mg twice daily for one week, then 10 mg daily for one week then stopping. They aslo recommended weaning off of her PPI.She should take omerpazole every other day for 1 week; then stop. Psychology has seen her and recommend continued follow up. At the time of discharge, she was tolerating PO intake, headaches was well controlled, and there were no symptoms of syncope or pre-syncope. AINER FILLER AINER FILLER * Assessment & Plan Note - Arnoldo Esposito MD - 11/04/2019 5:21 PM CONTAINER FILLER Associated Problem(s): Chronic nausea GI was consulted as she was scheduled to have a GES today and there was some onset around the same time her nortriptyline was increased. They feel her vomiting is likely functional in nature and feelshe would benefit from following with the Functional [facility] clinic. If we do think these current symptoms are related to her nortriptyline, they recommended decreasing to 20mg. Psychology hasseen her and recommend continued follow up. Plan: - Continue home nortriptyline 10 mg morning, 20 mg night - Continue home lexapro 20 mg - F/u GES - Referral to Functional [facility] AINER FILLER AINER FILLER AINER FILLER AINER FILLER * Assessment & Plan Note - Arnoldo Esposito MD - 11/04/2019 5:08 PM CONTAINER FILLER Associated Problem(s): Vasovagal syncope Nina presented following several syncopal episodes lasting seconds to minutes. Preceded by prodrome of dizziness, feeling off, headaches, sometimes nausea. No seizure-like activity, apnea, chest pain during episodes. Workup largely reassuring, including normal Brain MRI from previous admission. EMS glucose 68. Positive orthostatic changes in ED. ECG on 10/24 with prolonged QTc. Exam unremarkable,no focal neurologic deficits. Given rapid onset with prodrome and rapid recovery to baseline, presentation seems consistent with vasovagal syncope. Cardiology has also seen and agree that this is themost likely cause, but would like to have [...] Follow up Neurology, Cardiology, and GI recommendations AINER FILLER AINER FILLER AINER FILLER AINER FILLER * Subjective & Objective - Arnoldo Esposito MD - 11/04/2019 3:20 PM CONTAINER FILLER Pediatric Daily Progress Subjective Chief complaint of loss of counciousness. Interval History: Overnight Nina did well without any new symptoms. She was asleep for most of theday yesterday after receiving benadryl so was awake for most of the night. Otherwise, she does report some anxiety surrounding her LP today. Objective Vitals: Vitals 24 hour ranges: Temp: [36.5 ??C (97.7 ??F)-37.1 ??C (98.8 ??F)] Pulse: [85-97] Resp: [14-20] BP: (116-122)/(74-92) I/O last 2 completed shifts: In: 3657 [P.O.:1040; I.V.:2617] Out: 2310 [Urine:2310] I/O this shift: In: 750 [I.V.:750] Out: 1300 [Urine:1300] Physical Exam: General:well appearing, cooperative, no acute distress and asleep Lungs:clear to auscultation bilaterally, normal WOB and good air movement Heart:regular rate and rhythm, normal S1 and S2 and no murmur, rubs, or gallops Abdomen:soft, non-tender, non-distended, bowel sounds present, no masses and no organomegaly Pulses:2+ pulses and symmetric Skin:no rashes or lesions and no jaundice Neurologic:face symmetric and sleeping Lab/Radiology/Diagnostic Review: Laboratory review: Lab results in the last 24 hours: Recent Results (from the past 24 hour(s)) Cell Count, CSF Collection Time: 11/04/19 1:24 PM Result Value Ref Range Tube Number, CSF Tube 3 Color, CSF Colorless Colorless Clarity, CSF Clear Clear Xanthochromia, CSF Absent Absent Nucleated cells, CSF 0 0 - 5 /cumm RBC, CSF 0 0 - 0 /cumm Cell Differential, CSF Collection Time: 11/04/19 1:24 PM Result Value Ref Range Total cells diffed 2 cells Neutrophils, CSF 0 0 - 6 % Lymphs, CSF 50 40 - 80 % Monos, CSF 50 (H) 15 - 45 % Eosinophil, CSF 0 0 - 0 % Basophils, CSF 0 % Blasts, CSF 0 0 - 0 % Macrophages, CSF 0 0 - 0 % AINER FILLER AINER FILLER * Post-Procedure Note - Fernando Mendez MD - 11/04/2019 1:40 PM CST Neuroradiology Brief Post Procedure Note Attending: Dr. Paez Cardiovascular Tech: Dr. Mendez Sedation/Anesthesia: Local Pre-procedure diagnosis: Headache, concern for idiopathic intracranial hypertension Post-procedure diagnosis: Same Procedure Performed: Image-guided lumbar puncture (IR LUMBAR PUNCTURE) Procedure Findings: Successful diagnostic LP at L2-3 Opening Pressure: 27 cm H2O Closing Pressure: 13 cm H2O after removal of a total of 28 mL CSF Complications: None Estimated Blood Loss: None Specimens: 6 mL CSF placed into 1 tube Condition: Stable Full report to follow. AINER FILLER * Plan of Care - Jaswant Phan RN - 11/04/2019 1:16 AM CST Goals: Clinical Goals for the Shift: comfort; no further syncopal episode Summary: Reviewed overnight plan of care with patient, mother. Encouraged po, safety, comfort, rest. AINER FILLER * Plan of Care - Sanjana Trevizo RN - 11/03/2019 4:05 PM CST Problem: Activity: Goal: Risk for activity intolerance will decrease Outcome: Progressing Goal: Ability to follow a routine sleep schedule will improve Outcome: Progressing Problem: Lack of Knowledge: Goal: Knowledge of disease or condition will improve Outcome: Progressing Problem: Fluid Volume: Goal: Ability to maintain a balanced intake and output will improve Outcome: Progressing Problem: Nutritional: Goal: Ability to attain and maintain optimal nutritional status will improve Outcome: Progressing Problem: Safety: Goal: Ability to remain free from injury will improve Outcome: Progressing Problem: Self-Care: Goal: Ability to participate in self-care as condition permits will improve Outcome: Progressing Problem: Sensory: Goal: Pain level will decrease Outcome: Progressing Goals: Clinical Goals for the Shift: comfort; no further syncopal episode Summary: AINER FILLER * Plan of Care - Vicki Dey RN - 11/03/2019 5:52 AM CST Problem: Activity: Goal: Risk for activity intolerance will decrease Outcome: Progressing Goal: Ability to follow a routine sleep schedule will improve Outcome: Progressing Problem: Lack of Knowledge: Goal: Knowledge of disease or condition will improve Outcome: Progressing Problem: Fluid Volume: Goal: Ability to maintain a balanced intake and output will improve Outcome: Progressing Problem: Nutritional: Goal: Ability to attain and maintain optimal nutritional status will improve Outcome: Progressing Problem: Safety: Goal: Ability to remain free from injury will improve Outcome: Progressing Problem: Self-Care: Goal: Ability to participate in self-care as condition permits will improve Outcome: Progressing Problem: Sensory: Goal: Pain level will decrease Outcome: Progressing Goals: Clinical Goals for the Shift: comfort; no further syncopal episode Summary: Pt remained comfortable overnight and had no further syncopal episodes. Will continue to monitor. AINER FILLER * Assessment & Plan Note - Viktor Villagomez MD - 11/03/2019 1:24 AM CSTAssociated Problem(s): Vasovagal syncope Several syncopal episodes lasting seconds to minutes. [...] - Consider neurology consult vs. outpatient appointment AINER FILLER AINER FILLER AINER FILLER * Subjective & Objective - Viktor Villagomez MD - 11/03/2019 1:22 AM CST PediatricHistory and Physical Subjective Chief complaint of syncope. Nina is a 19 year old woman with a history of chronic nausea, headaches, and anxiety who presents following a syncopal episode. On the day of admission (11/01) she woke up with a headache, but went toschool and was feeling ok throughout the day. After school she was about to go to dance practice when she started to feel off and dizzy. She sat down in the locker room and called her mom. After mom arrived she slumped over and passed out and remained unarousable for about 10 minutes before awakening with nausea and a headache, but return to baseline mental status. She had no abnormal movement during this episode and was breathing regularly throughout. When EMS arrived she had an elevated blood pressure and a POCT glucose of 68. In ED waiting room she had another episode that was briefer. CBC, BMP, CXR, troponin normal. ECG in ED reportedly normal. Orthostatic vitals positive for change from supine to standing. She was given a migraine cocktail and 1L NS bolus and her headache She has had several other syncopal episodes over the past month. She was seen in ED on 10/24 and hadan ECG with prolonged QTc but an otherwise normal workup. She had recently increased her nortiptyline dose so this was reduced from 40 mg to 30 mg daily. Denies chest pain, confusion, numbness, vision changes, decreased appetite or intake. Her nausea and vomiting have been better controlled since her admission in August but has vomited as recently asMonday. She endorses abdominal discomfort and pressure on waking that improves throughout the day. Headaches are occipital and frontal and described as a dull pounding or whooshing. They do not respond to ibuprofen or tylenol. She was admitted to [facility] in August for intractable vomiting and had anormal Upper endoscopy and brain MRI. She was followed by GI and has an upcoming neurology appointment here. She denies current anxiety, depression, SI. She is on lexapro managed by her event planning intern and sees a therapist regularly. She denies alcohol, tobacco, drug use. Has never been sexually active. She likes school and plans to go to college next year. Past Medical History: Diagnosis Date ??? Abdominal pain 07/20/2019 ??? Abnormal electrocardiography 01/19/2017 Annotation: Saw cardiology 2016 and was cleared, repeat 08/25/19 Normal sinus rhythm with sinus arrhythmia with short OK ??? Anxiety 07/20/2019 ??? Asthma ??? Nausea 08/15/2019 ??? Vomiting multiple times per week Past Surgical History: Procedure Laterality Date ??? WRIST SURGERY Medications Prior to Admission Medication Sig Dispense Refill Last Dose ??? acetaminophen (TYLENOL) suspension 160 mg/5 mL 11/02/2019 ??? nortriptyline (PAMELOR) 10 mg capsule Take 2 capsules (20 mg total) by mouth 2 (two) times a day Take 2 in afternoon and 2 at bedtime (Patient taking differently: Take 30 mg by mouth daily Take 10 mg in morning and 20 mg at night) 120 capsule 11 11/02/2019 ??? omeprazole (PriLOSEC) 20 mg capsule Take 1 capsule (20 mg total) by mouth 2 (two) times a day 60 capsule 11 11/02/2019 at 0900 ??? albuterol (PROVENTIL,VENTOLIN) 1.25 mg/3 mL nebulizer solution Take 1.25 mg by nebulization every 4 (four) hours as needed for wheezing or shortness of breath Past Month at Unknown time ??? albuterol HFA (PROVENTIL HFA,VENTOLIN HFA,PROAIR HFA) 90 mcg/actuation inhaler Inhale 2 puffs every 6 hours as needed for wheezing or shortness of breath Past Month at Unknown time ??? escitalopram (LEXAPRO) 20 mg tablet Take 1 tablet (20 mg total) by mouth daily 30 tablet 2 PastWeek at 2100 ??? fluticasone furoate-vilanterol (Breo Ellipta) 100-25 mcg/dose diskus inhaler Inhale 1 puff daily 60 each 0 11/02/2019 at 0900 ??? norgestimate-ethinyl estradiol (ORTHO TRI-CYCLEN LO) 0.18/0.215/0.25 mg-25 mcg per tablet Take 1 tablet by mouth daily 0 Past Week at Unknown time Allergies Allergen Reactions ??? Dog Dander Hives Reaction: HIVES, ??? Penicillins Other (See comments) and Rash As a child Reaction: NAUSEA;, As a child Social History Tobacco Use ??? Smoking status: Never Smoker Substance Use Topics ??? Alcohol use: Never Frequency: Never Family History Adopted: Yes Family history unknown: Yes Social History: Drug Use: Social History Substance and Sexual Activity Drug Use Never Education: Education ??? Educational level 12th Living Conditions: Living Conditions ??? Lives with mom, dad, sister 14yo brother 11yo Social History Narrative: Social History Social History Narrative Adoptive mother : (Added by TW Conv) No secondhand smoke exposure : (Added by TW Conv) Tobacco History: Social History Tobacco Use Smoking Status Never Smoker Review of Systems: Review of Systems Constitutional: Negative for chills, fever and weight loss. HENT: Negative for congestion, ear pain and sore throat. Eyes: Negative for blurred vision, double vision, photophobia, pain, discharge and redness. Respiratory: Negative for cough, shortness of breath and wheezing. Cardiovascular: Negative for chest pain, palpitations, orthopnea, claudication and leg swelling. Gastrointestinal: Positive for abdominal pain, nausea and vomiting. Negative for blood in stool, constipation and diarrhea. Genitourinary: Negative for dysuria, flank pain, frequency, hematuria and urgency. Musculoskeletal: Negative for back pain, joint pain, myalgias and neck pain. Skin: Negative for rash. Neurological: Positive for dizziness, loss of consciousness and headaches. Negative for speech change, focal weakness and seizures. Endo/Heme/Allergies: Positive for environmental allergies. Does not bruise/bleed easily. Psychiatric/Behavioral: Negative for depression and suicidal ideas. The patient is nervous/anxious. Objective Physical Exam: Physical Exam Constitutional: General: She is not in acute distress. Appearance: Normal appearance. She is obese. She is not ill-appearing. HENT: Head: Normocephalic and atraumatic. Right Ear: Tympanic membrane and external ear normal. Left Ear: Tympanic membrane and external ear normal. Nose: Nose normal. No congestion or rhinorrhea. Mouth/Throat: Mouth: Mucous membranes are moist. Pharynx: Oropharynx is clear. No oropharyngeal exudate or posterior oropharyngeal erythema. Eyes: Extraocular Movements: Extraocular movements intact. Conjunctiva/sclera: Conjunctivae normal. Pupils: Pupils are equal, round, and reactive to light. Neck: Musculoskeletal: Normal range of motion and neck supple. No neck rigidity. Cardiovascular: Rate and Rhythm: Normal rate and regular rhythm. Pulses: Normal pulses. Heart sounds: Normal heart sounds. No murmur. No friction rub. No gallop. Pulmonary: Effort: Pulmonary effort is normal. No respiratory distress. Breath sounds: Normal breath sounds. No wheezing. Chest: Chest wall: No tenderness. Abdominal: General: Abdomen is flat. Bowel sounds are normal. There is no distension. Palpations: Abdomen is soft. Tenderness: There is no abdominal tenderness. There is no guarding or rebound. Musculoskeletal: Normal range of motion. General: No swelling, tenderness or deformity. Lymphadenopathy: Cervical: No cervical adenopathy. Skin: General: Skin is warm and dry. Capillary Refill: Capillary refill takes less than 2 seconds. Findings: No rash. Neurological: General: No focal deficit present. Mental Status: She is alert and oriented to person, place, and time. Mental status is at baseline. Cranial Nerves: No cranial nerve deficit. Motor: No weakness. Coordination: Coordination normal. Psychiatric: Mood and Affect: Mood normal. Behavior: Behavior normal. Thought Content: Thought content normal. Lab/Radiology/Diagnostic Review: Laboratory review: Lab results in the last 24 hours: Recent Results (from the past 24 hour(s)) CBC with auto differential Collection Time: 11/02/19 10:13 PM Result Value Ref Range WBC 10.2 (H) 3.8 - 9.9 K/cumm Hgb 12.7 11.9 - 15.5 g/dL Hct 38.0 35.6 - 45.5 % Plt 357 150 - 400 K/cumm MPV 9.5 9.1 - 12.3 fL RBC 4.29 3.90 - 5.20 M/cumm MCV 88.6 81.3 - 96.4 fL MCH 29.6 27.1 - 33.3 pg MCHC 33.4 32.3 - 35.7 g/dL RDW CV 13.3 11.1 - 14.9 % RDW SD 43.4 35.7 - 48.1 fL NRBC abs 0.00 0.00 - 0.01 K/cumm Electrolytes, whole blood Collection Time: 11/02/19 10:13 PM Result Value Ref Range Sodium, Whole Blood 140 135 - 145 mmol/L Potassium, bld 3.7 3.3 - 4.9 mmol/L Chloride, bld 106 100 - 114 mmol/L CO2, Total Calculated, Whole Blood 26 20 - 30 mmol/L Anion Gap, Whole Blood 9 mmol/L Glucose, whole blood Collection Time: 11/02/19 10:13 PM Result Value Ref Range Glucose, bld 81 70 - 199 mg/dL Calcium, ionized, whole blood Collection Time: 11/02/19 10:13 PM Result Value Ref Range Ca, ionized, bld 4.65 3.90 - 5.20 mg/dL Creatinine, whole blood Collection Time: 11/02/19 10:13 PM Result Value Ref Range Creatinine, bld 0.8 0.4 - 1.0 mg/dL Troponin I Collection Time: 11/02/19 10:13 PM Result Value Ref Range Troponin I <0.03 0.00 - 0.03 ng/mL Differential, auto Collection Time: 11/02/19 10:13 PM Result Value Ref Range Neutrophil abs 6.1 1.7 - 6.5 K/cumm Imm gran abs 0.0 0.0 - 0.1 K/cumm Lymphocyte abs 2.8 0.8 - 3.3 K/cumm Monocyte abs 0.9 (H) 0.2 - 0.8 K/cumm Eosinophil abs 0.4 0.0 - 0.5 K/cumm Basophil abs 0.1 0.0 - 0.1 K/cumm Neutrophil pct 59.2 % Imm gran pct 0.4 % Lymphocyte pct 27.3 % Monocyte pct 8.8 % Eosinophil pct 3.5 % Basophil pct 0.8 % hCG, blood, quantitative Collection Time: 11/02/19 11:39 PM Result Value Ref Range hCG, quant <5.0 0.0 - 5.0 IUnits/L Vitals: 24hr Min/Max: Temp Min: 36.1 ??C (97 ??F) Max: 37.2 ??C (99 ??F) Pulse Min: 72 Max: 120 BP Min: 103/71 Max: 145/109 Resp Min: 17 Max: 22 SpO2 Min: 96 % Max: 100 % Most Recent : Vitals: 11/03/19 0319 BP: 103/71 Pulse: 88 Resp: 22 Temp: 36.1 ??C (97 ??F) SpO2: 99% No intake/output data recorded. I/O this shift: In: 399 [I.V.:399] Out: 0 AINER FILLER AINER FILLER AINER FILLER * ED Pre-Arrival Note - Alfred Simms EMT - 11/02/2019 5:16 PM CONTAINER FILLER Pre-Arrival Note 19 y.o. female; Syncope; pt. Had syncope episode lasting 10 minutes per mother, now baseline, A&O x 4, VSS, 3 prior syncopal episodes prior to today. MAGALIE Flores AINER FILLER documented in this encounter Plan of Treatment Not on file documented as of this encounter Procedures Procedure Name Priority Date/Time Associated Diagnosis Comments CORTISOL Timed 11/05/2019 8:28 AM CONTAINER FILLER IR LUMBAR PUNCTURE, THERAPEUTIC INCL FLUORO GUIDANCE IP Routine 11/04/2019 1:24 PM CONTAINER FILLER PED ONC CELL COUNT AND DIFFERENTIAL, CSF STAT 11/04/2019 1:24 PM CONTAINER FILLER CELL DIFFERENTIAL, CSF STAT 11/04/2019 1:24 PM CONTAINER FILLER CELL COUNT W REFLEX DIFFERENTIAL, CSF STAT 11/04/2019 1:24 PM CONTAINER FILLER SAVE CSF STAT 11/04/2019 1:24 PM CONTAINER FILLER HOMOVANILLIC ACID, URINE, RANDOM Routine 11/04/2019 11:42 AM CONTAINER FILLER VMA, URINE, RANDOM Routine 11/04/2019 11 :42 AM CONTAINER FILLER HCG, BLOOD, QUANTITATIVE STAT 11/02/2019 11:39 PM CONTAINER FILLER XR CHEST PA LATERAL 2 VIEWS ED 11/02/2019 10:29 PM CONTAINER FILLER CALCIUM,IONIZED, WHOLE BLOOD STAT 11/02/2019 10:13 PM CONTAINER FILLER DIFFERENTIAL AUTO STAT 11/02/2019 10: 13 PM CONTAINER FILLER CREATININE, WHOLE BLOOD STAT 11/02/2019 10:13 PM CONTAINER FILLER GLUCOSE, WHOLE BLOOD STAT 11/02/2019 10:13 PM CONTAINER FILLER ELECTROLYTES, WHOLE BLOOD STAT 11/02/2019 10:13 PM CONTAINER FILLER CBC WITH AUTO DIFFERENTIAL STAT 11/02/2019 10:13 PM CONTAINER FILLER TROPONIN I Routine 11/02/2019 10:13 PM CONTAINER FILLER ECG 12-LEAD Routine 11/02/2019 10:10 PM CONTAINER FILLER documented in this encounter Results * (ABNORMAL) Cortisol (11/05/2019 8:28 AM CONTAINER FILLER) [facility] Cortisol 20.2(H) 4.8 - 19.5 mcg/dL [facility] Comment: Interpretive Data Reference Interval: AM: 4.8-19.5 mcg/dL ?? PM: Approximately half of morning value Note: Circulating cortisol undergoes marked diurnal variation. Time of sample collection must be considered when interpreting results. Cortisol reference intervals are not well established in pediatric populations. Limitations: Modified assay introduced 08/20/2016 exhibits decreased cross-reactivity towards 21-deoxycortisol, prednisolone, and methylpredinisolone. Approximate Cross-reactivity: 17-OH progesterone 0.1% 21-deoxycortisol ?2.4% Predinsolone ?8.0% Methylpredinisolone ?? 12.0% Current interpretive data was last revised on 2016. Blood specimen (specimen) 11/05/2019 8:28 AM CONTAINER FILLER 11/05/2019 8:30 AM CONTAINER FILLER us Elpidio Gimenez MD LAB BLOOD ORDERABLES Final Re sult [facility] Department [place] [address] * IR Lumbar Puncture, Therapeutic incl Fluoro Guidance (11/04/2019 1:24 PM CONTAINER FILLER) Anatomical Region Laterality Modality Spine N/A X-Ray Angiograph y 11/04/2019 1:55 PM CONTAINER FILLER Impressions 11/04/2019 2:02 PM CONTAINER FILLER Successful lumbar puncture under fluoroscopic guidance. ??Elevated CSF opening pressure, with normalization after CSF removal. ?? Dictated by: Fernando Mendez M.D. The radiology attending physician has personally reviewed this study, and had reviewed and/or edited this written report and agrees with it. Electronically signed by: Neal Paez Narrative 11/04/2019 2:02 PM CONTAINER FILLER EXAMINATION: Diagnostic and therapeutic lumbar puncture (LP) under fluoroscopic guidance HISTORY: Headaches and syncope, concern for idiopathic intracranial hypertension TECHNIQUE: The risks and benefits of the lumbar puncture including, but not limited to infection, bleeding, spinal headache, cerebrospinal fluid (CSF) leak requiring blood patch procedure, and irritation or damage to nerves causing pain or permanent injury were discussed with the patient's family. The patient's family was given the opportunity to ask questions. The patient's family acknowledged understanding, gave verbal and written consent, and wished to proceed. A time-out was performed prior to the procedure. Attending physician: Dr. Paez was present for the entire procedure. The patient was positioned in the lateral decubitus position. ??The L2-L3 level was localized with fluoroscopy. The skin overlying this level was then sterilely prepped, draped, and infiltrated with 1% lidocaine for local anesthesia. Under intermittent fluoroscopic guidance, a 22 gauge 5 inch Quincke spinal needle was inserted into the thecal sac at this level. Clear CSF was identified. A total of 28 ml of CSF was removed and 6 mL of CSF was placed into a single specimen tube. The patient tolerated the procedure well. The patient was then transferred to the inpatient [facility] for further observation and 1 hour of bedrest. ??The patient reported slight improvement in headaches after the procedure. OPENING PRESSURE: 27 cm H2O CLOSING PRESSURE: 13 cm H20 after removal of 28 mL of CSF Procedure Note Neal Paez MD PhD - 11/04/2019 EXAMINATION: Diagnostic and therapeutic lumbar puncture (LP) under fluoroscopic guidance HISTORY: Headaches and syncope, concern for idiopathic intracranial hypertension TECHNIQUE: The risks and benefits of the lumbar puncture including, but not limited to infection, bleeding, spinal headache, cerebrospinal fluid (CSF) leak requiring blood patch procedure, and irritation or damage to nerves causing pain or permanent injury were discussed with the patient's family. The patient's family was given the opportunity to ask questions. The patient's family acknowledged understanding, gave verbal and written consent, and wished to proceed. A time-out was performed prior to the procedure. Attending physician: Dr. Paez was present for the entire procedure. The patient was positioned in the lateral decubitus position. The L2-L3 level was localized with fluoroscopy. The skin overlying this level was then sterilely prepped, draped, and infiltrated with 1% lidocaine for local anesthesia. Under intermittent fluoroscopic guidance, a 22 gauge 5 inch Quincke spinal needle was inserted into the thecal sac at this level. Clear CSF was identified. A total of 28 ml of CSF was removed and 6 mL of CSF was placed into a single specimen tube. The patient tolerated the procedure well. The patient was then transferred to the inpatient [facility] for further observation and 1 hour of bedrest. The patient reported slight improvement in headaches after the procedure. OPENING PRESSURE: 27 cm H2O CLOSING PRESSURE: 13 cm H20 after removal of 28 mL of CSF IMPRESSION: Successful lumbar puncture under fluoroscopic guidance. Elevated CSF opening pressure, with normalization after CSF removal. Dictated by: Fernando Mendez M.D. The radiology attending physician has personally reviewed this study, and had reviewed and/or edited this written report and agrees with it. Electronically signed by: Neal Paez us Elpidio Gimenez MD IMG IR PROCEDURES Final Resul t * (ABNORMAL) Cell Differential, CSF (11/04/2019 1:24 PM CONTAINER FILLER) Total cells diffed 2 cells [facility] Comment: Interpretive Data Unless otherwise specified, the reference range and other method performance specifications have not been established for CSF/Body Fluid tests. ??The test results should be integrated into the clinical context for interpretation. Current interpretive data was last revised on 2019. Neutrophils, CSF 0 0 - 6 % [facility] Lymphs, CSF 50 40 - 80 % [facility] Monos, CSF 50(H) 15 - 45 % [facility] Eosinophil, CSF 0 0 - 0 % [facility] Basophils, CSF 0 % [facility] Blasts, CSF 0 0 - 0 % [facility] Macrophages, CSF 0 0 - 0 % [facility] CSF 11/04/2019 1:24 PM CONTAINER FILLER 11/04/2019 1:25 PM CONTAINER FILLER us Elpidio Gimenez MD LAB BODY FLUIDS AND STOOLS OR DERABLES Final Result [facility] Department [place] [address] * Cell Count, CSF (11/04/2019 1:24 PM CONTAINER FILLER) Tube Number, CSF Tube 3 [facility] Color, CSF Colorless Colorless [facility] Clarity, CSF Clear Clear [facility] Xanthochromia , CSF Absent Absent [facility] Nucleated cells, CSF 0 0 - 5 /cumm [facility] RBC, CSF 0 0 - 0 /cumm [facility] CSF 11/04/2019 1:24 PM CONTAINER FILLER 11/04/2019 1:25 PM CONTAINER FILLER Elpidio Gimenez MD LAB BODY FLUIDS AND STOOLS OR DERABLES Final Result Performing Organization Address [facility] [place] [address] * Save CSF (11/04/2019 1:24 PM CONTAINER FILLER) Save, CSF 5.0 mL stored in Serology for 3 months in freezer location save2. [facility] CSF 11/04/2019 1:24 PM CONTAINER FILLER 11/04/2019 1:25 PM CONTAINER FILLER Elpidio Gimenez MD LAB BODY FLUIDS AND STOOLS OR DERABLES Final Result Performing Organization Address [facility] [place] [address] * Homovanillic acid, urine, random (11/04/2019 11:42 AM CONTAINER FILLER) Pathologist [facility] HVA 2.6 <8.0 mg/g CR [facility] Comment: ADDITIONAL INFORMATION Liquid Chromatography-Tandem Mass Spectrometry (LC-MS/MS). Values obtained from different assay methods or kits may be different and cannot be used interchangeably. The results cannot be interpreted as absolute evidence for the presence or absence of malignant disease. This test was developed and its performance characteristics determined by [facility] in a manner consistent with CLIA requirements. This test has not been cleared or approved by the U.S. Food and Drug Administration. Test Performed by: [facility] [place] [address] [employer] Laborer: Viktor Cannon M.D. Ph.D.; CLIA# [id number] Urine 11/04/2019 11:4 2 AM CONTAINER FILLER 11/04/2019 11:48 AM CONTAINER FILLER Elpidio Gimenez MD LAB URINE ORDERABLES Final Re sult Performing Organization Address [facility] [place] [address] * VMA, urine, random (11/04/2019 11:42 AM CONTAINER FILLER) VMA child, 24 hr ur 1.3 <7.0 mg/g CR [facility] Comment: ADDITIONAL INFORMATION Liquid Chromatography-Tandem Mass Spectrometry (LC-MS/MS). Values obtained from different assay methods or kits may be different and cannot be used interchangeably. The results cannot be interpreted as absolute evidence for the presence or absence of malignant disease. This test was developed and its performance characteristics determined by [facility] in a manner consistent with CLIA requirements. This test has not been cleared or approved by the U.S. Food and Drug Administration. Test Performed by: [place] [address] [employer]orer: Viktor Cannon M.D. Ph.D.; CLIA# [id number] Urine 11/04/2019 11:4 2 AM CONTAINER FILLER 11/04/2019 11:48 AM CONTAINER FILLER us Elpidio Gimenez MD LAB URINE ORDERABLES Final [facility] Performing Organization Address [facility] [place] [address] * hCG, blood, quantitative (11/02/2019 11:39 PM CONTAINER FILLER) hCG, quant <5.0 0.0 - 5.0 IUnits/L [facility] Comment: Interpretive Data Male: <5.0 IUnits/L Non- Female: <5.0 IUnits/L Weeks Post LMP ?Reference Interval ?1-10 ?202-231,000 IUnits/L ?? 11-15 ? 22,536-234,990 IUnits/L ?? 16-22 ?8,007- 50,064 IUnits/L ?? 23-40 ?1,600- 49,413 IUnits/L All results should be interpreted in context of clinical presentations as rare causes of falsely positive and falsely negative results are known to exist. Current interpretive data last revised on 2018. Testing performed by: [facility], [address] [place]., [address] Blood specimen (specimen) 11/02/2019 11:39 PM CONTAINER FILLER 11/03/2019 12:12 AM CONTAINER FILLER us Zena Forrester MD LAB BLOOD ORDERABLES Final Result [facility] Department [place] [address] * XR Chest Pa Lateral 2 Views (11/02/2019 10:29 PM CONTAINER FILLER) Anatomical Region Laterality Modality Body, Chest N/A Computed Radiogr aphy 11/02/2019 10:4 4 PM CONTAINER FILLER Impressions 11/03/2019 7:11 AM CONTAINER FILLER Normal. Dictated by: Db Gonzalez M.D. The radiology attending physician has personally reviewed this study, and had reviewed and/or edited this written report and agrees with it. Electronically signed by: Sherly To M.D. Narrative 11/03/2019 7:11 AM CONTAINER FILLER EXAMINATION: ??XR CHEST PA LATERAL 2 VIEWS HISTORY: ??19-year-old girl with syncope. COMPARISON: ??Chest radiograph dated 07/17/2013 FINDINGS: The lungs are clear. ??There is no pleural effusion or pneumothorax. The cardiomediastinal silhouette is normal in appearance. Procedure Note Sherly To MD - 11/03/2019 EXAMINATION: XR CHEST PA LATERAL 2 VIEWS HISTORY: 19-year-old girl with syncope. COMPARISON: Chest radiograph dated 07/17/2013 FINDINGS: The lungs are clear. There is no pleural effusion or pneumothorax. The cardiomediastinal silhouette is normal in appearance. IMPRESSION: Normal. Dictated by: Db Gonzalez M.D. The radiology attending physician has personally reviewed this study, and had reviewed and/or edited this written report and agrees with it. Electronically signed by: Sherly To M.D. Florina Loco MD IMG XR PROCEDURES Final Result * (ABNORMAL) Differential, auto (11/02/2019 10:13 PM CONTAINER FILLER) Neutrophil abs 6.1 1.7 - 6.5 K/cumm [facility] Imm gran abs 0.0 0.0 - 0.1 K/cumm [facility] Lymphocyte abs 2.8 0.8 - 3.3 K/cumm [facility] Monocyte abs 0.9(H) 0.2 - 0.8 K/cumm [facility] Eosinophil abs 0.4 0.0 - 0.5 K/cumm [facility] Basophil abs 0.1 0.0 - 0.1 K/cumm [facility] Neutrophil pct 59.2 % [facility] Comment: Interpretive Data Percent cell count reference ranges are not reported, since discordance with absolute values may lead to misinterpretation of CBC data. Current Interpretive Data was last revised on 2017. Imm gran pct 0.4 % [facility] Comment: Interpretive Data Percent cell count reference ranges are not reported, since discordance with absolute values may lead to misinterpretation of CBC data. Current Interpretive Data was last revised on 2017. Lymphocyte pct 27.3 % [facility] Comment: Interpretive Data Percent cell count reference ranges are not reported, since discordance with absolute values may lead to misinterpretation of CBC data. Current Interpretive Data was last revised on 2017. Monocyte pct 8.8 % [facility] Comment: Interpretive Data Percent cell count reference ranges are not reported, since discordance with absolute values may lead to misinterpretation of CBC data. Current Interpretive Data was last revised on 2017. Eosinophil pct 3.5 % [facility] Comment: Interpretive Data Percent cell count reference ranges are not reported, since discordance with absolute values may lead to misinterpretation of CBC data. Current Interpretive Data was last revised on 2017. Basophil pct 0.8 % [facility] Comment: Interpretive Data Percent cell count reference ranges are not reported, since discordance with absolute values may lead to misinterpretation of CBC data. Current Interpretive Data was last revised on 2017. Blood specimen (specimen) 11/02/2019 10:13 PM CONTAINER FILLER 11/02/2019 10:20 PM CONTAINER FILLER Result [facility] Florina Loco MD LAB BLOOD ORDERABLES Fin al Result Performing Organization Address [facility] [place] [address] * Troponin I (11/02/2019 10:13 PM CONTAINER FILLER) Troponin I <0.03 0.00 - 0.03 ng/mL [facility] Comment: Interpretive Data: Normal plasma Troponin I concentrations can reach 1 ng/mL in the first two weeks of life and slowly decrease to adult levels (<0.03 ng/mL) by the age of 3 months. > 3 months ??<0.03 ng/mL > or = 18 years Serial determinations are recommended for the diagnosis of myocardial infarction. ??Temporal rise and fall are consistent with myocardial infarction when at least one value is above the 99th percentile upper reference limit for Troponin assay. References: 1. Clin Chem 2013;59:9475-4503 2. Journal of the [place] [employer] 2012;60:1581-98 Current Interpretive Data Last Revised Date: 2018. Blood specimen (specimen) 11/02/2019 10:13 PM CONTAINER FILLER 11/02/2019 10:20 PM CONTAINER FILLER Result [facility] Florina Loco MD LAB BLOOD ORDERABLES Fin al Result Performing Organization Address [facility] [place] [address] * Creatinine, whole blood (11/02/2019 10:13 PM CONTAINER FILLER) Creatinine, bld 0.8 0.4 - 1.0 mg/dL [facility] Blood specimen (specimen) 11/02/2019 10:13 PM CONTAINER FILLER 11/02/2019 10:20 PM CONTAINER FILLER Florina Loco MD LAB BLOOD ORDERABLES Fin al Result Performing Organization Address City/[facility] [place] [address] * Calcium, ionized, whole blood (11/02/2019 10:13 PM CONTAINER FILLER) Ca, ionized, bld 4.65 3.90 - 5.20 mg/dL [facility] Blood specimen (specimen) 11/02/2019 10:13 PM CONTAINER FILLER 11/02/2019 10:20 PM CONTAINER FILLER Result [facility] Florina Loco MD LAB BLOOD ORDERABLES Fin al Result Performing Organization Address [facility] de Phone Number [address] [place] [address] * Glucose, whole blood (11/02/2019 10:13 PM CONTAINER FILLER) Glucose, bld 81 70 - 199 mg/dL [facility] Blood specimen (specimen) 11/02/2019 10:13 PM CONTAINER FILLER 11/02/2019 10:20 PM CONTAINER FILLER Florina Loco MD LAB BLOOD ORDERABLES Fin al Result Performing Organization Address [facility] [place] [address] * Electrolytes, whole blood (11/02/2019 10:13 PM CONTAINER FILLER) Sodium, Whole Blood 140 135 - 145 mmol/L [facility] Potassium, bld 3.7 3.3 - 4.9 mmol/L [facility] Chloride, bld 106 100 - 114 mmol/L [facility] CO2, Total Calculated, Whole Blood 26 20 - 30 mmol/L [facility] Anion Gap, Whole Blood 9 mmol/L [facility] Blood specimen (specimen) 11/02/2019 10:13 PM CONTAINER FILLER 11/02/2019 10:20 PM CONTAINER FILLER Florina Loco MD LAB BLOOD ORDERABLES Fin al Result [facility] Department [place] [address] * (ABNORMAL) CBC with auto differential (11/02/2019 10:13 PM CONTAINER FILLER) WBC 10.2(H) 3.8 - 9.9 K/cumm [facility] Hgb 12.7 11.9 - 15.5 g/dL [facility] Hct 38.0 35.6 - 45.5 % [facility] Plt 357 150 - 400 K/cumm [facility] MPV 9.5 9.1 - 12.3 fL [facility] RBC 4.29 3.90 - 5.20 M/cumm [facility] MCV 88.6 81.3 - 96.4 fL [facility] MCH 29.6 27.1 - 33.3 pg [facility] MCHC 33.4 32.3 - 35.7 g/dL [facility] RDW CV 13.3 11.1 - 14.9 % [facility] RDW SD 43.4 35.7 - 48.1 fL [facility] NRBC abs 0.00 0.00 - 0.01 K/cumm [facility] Blood specimen (specimen) (Blood, Venous) 11/02/2019 10:13 PM CONTAINER FILLER 11/02/2019 10:20 PM CONTAINER FILLER Florina Loco MD LAB BLOOD ORDERABLES Fin al Result [facility] Department [place] [address] * ECG 12 lead (11/02/2019 10:10 PM CONTAINER FILLER) Ventricular Rate EKG/Min 83 BPM [facility] Atrial Rate 83 BPM [facility] OK-Interval (MSEC) 138 ms [facility] QRS-Interval (MSEC) 78 ms [facility] QT-Interval (MSEC) 374 ms [facility] QTc 445 ms [facility] P [place] 26 degrees [facility] R [place] -4 degrees [facility] T [place] 0 degrees [facility] Diagnosis Normal sinus rhythm Low voltage QRS Early repolarization Otherwise normal ECG When compared with ECG of 24-OCT-2019 02:51, QT has shortened Confirmed by fellow MD NESTOR, ROGELIO ([id number]) on 11/03/2019 12:52:32 AM I have personally reviewed the study and I agree with the above findings Confirmed by MD NISHA, FELICE ([id number]) on 11/03/2019 7:09:59 AM [facility] 11/02/2019 10:1 0 PM CONTAINER FILLER 11/03/2019 7:09 AM CONTAINER FILLER us Florina Loco MD ECG ORDERABLES Final Re sult [facility] documented in this encounter Visit Diagnoses Diagnosis Vasovagal syncope- Primary Syncope and collapse Syncope, unspecified syncope type Nausea Nausea alone Chronic nausea Nausea alone Migraine headache Migraine, unspecified, without mention of intractable migraine without mention of status migrainosus documented in this encounter Administered Medications Inactive Administered Medications - up to 3 most recent administrations Medication Order MAR Action Action Date Dose Rate Site acetaminophen (TYLENOL) tablet 650 mg 650 mg, oral, Once, On Thu11/02/19 at 2027, For 1 dose, Maximum dose = 650 mg Given 11/02/2019 8:28 PM CONTAINER FILLER 650 mg acetaminophen (TYLENOL) tablet 650 mg 650 mg, oral, Every 6 hours PRN, 1st line for pain, headaches, Starting on Celia 11/03/19 at 0908 Given 11/04/2019 6:17 PM CONTAINER FILLER 650 mg dextrose 5% and sodium chloride 0.9% with potassium chloride 20 mEq/L infusion (premix) 1.5 L/m2/day ? 2.14 m2 (133.75 mL/hr, rounded to 133.8 mL/hr), intravenous, Continuous, Starting on Celia 11/03/19 at 0100 New Bag 11/05/2019 5:02 AM CONTAINER FILLER 1.5 L/m2/day 133.8 mL/hr New Bag 11/04/2019 4:39 PM CONTAINER FILLER 1.5 L/m2/day 133.8 mL/hr New Bag 11/04/2019 8:19 AM CONTAINER FILLER 1.5 L/m2/day 133.8 mL/hr diphenhydrAMINE (BENADRYL) injection 25 mg 25 mg, intravenous, Administer over 15 Minutes, Once, On Thu11/02/19 at 2204, For 1 dose Given 11/02/2019 10:50 PM CONTAINER FILLER 25 mg diphenhydrAMINE (BENADRYL) injection 25 mg 25 mg, intravenous, Administer over 15 Minutes, Once, On Thu11/05/19 at 1245, For 1 dose Given 11/05/2019 1:08 PM CONTAINER FILLER 25 mg diphenhydrAMINE (BENADRYL) injection 25 mg 25 mg, intravenous, Administer over 15 Minutes, Every 6 hours scheduled, First dose on Thu11/05/19 at 2000, With toradol, compazine for migraine cocktail Given 11/06/2019 4:13 AM CDT 25 mg Given 11/05/2019 7:48 PM CONTAINER FILLER 25 mg escitalopram (LEXAPRO) tablet 20 mg 20 mg, oral, Nightly, First dose on Thu11/03/19 at 0200 Given 11/05/2019 8:03 PM CONTAINER FILLER 20 mg Given 11/04/2019 9:40 PM CONTAINER FILLER 20 mg Given 11/03/2019 9:32 PM CONTAINER FILLER 20 mg fluticasone furoate-vilanteroL (BREO ELLIPTA) 100-25 mcg/dose inhaler 1 puff 1 puff, inhalation, Nightly, First dose (after last modification) on Celia 11/03/19 at 0400, Drug Name: fluticason furoate-vilanterol (Breo Ellipta) 100-25 mcg/dose diskus inhaler, Form: inhaler, Length of Therapy: Indefinite, How soon needed? (normally 72 hrs needed to procure): 0-24 hrs, Reason for Non-Formulary: not on formulary Given 11/05/2019 8:03 PM CONTAINER FILLER 1 puff Given 11/04/2019 9:39 PM CONTAINER FILLER 1 puff Given 11/03/2019 9:36 PM CONTAINER FILLER 1 puff ketorolac (TORADOL) 15 mg/mL injection 15 mg 15 mg, intravenous, Administer over 5 Minutes, Once, On Thu11/02/19 at 2204, For 1 dose Given 11/02/2019 10:54 PM CONTAINER FILLER 15 mg ketorolac (TORADOL) 15 mg/mL injection 30 mg 30 mg, intravenous, Administer over 5 Minutes, Every 6 hours, First dose on Thu11/05/19 at 1245, For 5 days, Maximum dose = 30 mg Given 11/06/2019 4:13 AM CDT 30 mg Given 11/05/2019 7:48 PM CONTAINER FILLER 30 mg Given 11/05/2019 1:46 PM CONTAINER FILLER 30 mg lansoprazole (PREVACID) capsule 15 mg 15 mg, oral, 2 times daily, First dose on Thu11/03/19 at 0900, Capsules may be opened and contents mixed with food or beverage. Contents should not be crushed or chewed after mixing., Indications: Treatment of Non-Bleeding Gastric DisorderIndications:Treatment of Non-Bleeding Gastric Disorder Given 11/05/2019 8:03 PM CONTAINER FILLER 15 mg Given 11/05/2019 8:54 AM CONTAINER FILLER 15 mg Given 11/04/2019 9:40 PM CONTAINER FILLER 15 mg lansoprazole (PREVACID) capsule 15 mg 15 mg, oral, Every other day, First dose (after last modification) on Thu11/07/19 at 0900, Capsules may be opened and contents mixed with food or beverage. Contents should not be crushed or chewed after mixing., Indications: Treatment of Non-Bleeding Gastric DisorderIndications:Treatment of Non-Bleeding Gastric Disorder LORazepam (ATIVAN) tablet 1 mg 1 mg, oral, Once, On Thu11/04/19 at 1245, For 1 dose Given 11/04/2019 12:39 PM CONTAINER FILLER 1 mg norgestimate-ethinyl estradioL (ORTHO TRI-CYCLEN LO) 0.18/0.215/0.25 mg-25 mcg per tablet 1 tablet 1 tablet, oral, Nightly, First dose on Thu11/03/19 at 0200, Drug Name: norgestimate-ethinyl estradiol (Ortho Tri-cyclen Lo) 0.18/0.215/0.25 mg-25 mcg per tablet, Form: tablet, Length of Therapy: Indefinite, How soon needed? (normally 72 hrs needed to procure): 0-24 hrs, Reason for Non-Formulary: Not on formulary Given 11/05/2019 8:03 PM CONTAINER FILLER 1 tablet Given 11/04/2019 9:40 PM CONTAINER FILLER 1 tablet Given 11/03/2019 9:36 PM CONTAINER FILLER 1 tablet nortriptyline (PAMELOR) capsule 10 mg 10 mg, oral, Daily, First dose on Celia 11/03/19 at 0900 Given 11/05/2019 8:55 AM CONTAINER FILLER 10 mg Given 11/03/2019 9:42 AM CONTAINER FILLER 10 mg nortriptyline (PAMELOR) capsule 10 mg 10 mg, oral, Nightly, First dose (after last modification) on 11/05/19 at 2100 Given 11/05/2019 8:11 PM CONTAINER FILLER 10 mg nortriptyline (PAMELOR) capsule 10 mg 10 mg, oral, 2 times daily, First dose on Thu11/06/19 at 0900 Given 11/06/2019 9:37 AM CDT 10 mg nortriptyline (PAMELOR) capsule 20 mg 20 mg, oral, Nightly, First dose on Celia 11/03/19 at 0200 Given 11/04/2019 9:41 PM CONTAINER FILLER 20 mg Given 11/03/2019 9:37 PM CONTAINER FILLER 20 mg Given 11/03/2019 2:24 AM CONTAINER FILLER 20 mg prochlorperazine (COMPAZINE) injection 10 mg 10 mg, intravenous, Administer over 5 Minutes, Once, On Thu11/02/19 at 2204, For 1 dose Given 11/02/2019 10:52 PM CONTAINER FILLER 10 mg prochlorperazine (COMPAZINE) injection 10 mg 10 mg (rounded from 9.96 mg = 0.1 mg/kg ? 99.6 kg Dosing weight), intravenous, Administer over 5 Minutes, Every 6 hours, First dose on 11/05/19 at 1245, Maximum dose = 10 mg Given 11/06/2019 4:13 AM CDT 10 mg Given 11/05/2019 7:48 PM CONTAINER FILLER 10 mg Given 11/05/2019 1:39 PM CONTAINER FILLER 10 mg sodium chloride 0.9% bolus 1,000 mL 1,000 mL, intravenous, Once, On 11/02/19 at 2204, For 1 dose Rate/Dose Verify 11/02/2019 11:36 PM CONTAINER FILLER New Bag 11/02/2019 10:50 PM CONTAINER FILLER 1,000 mL documented in this encounter Discontinued Medications Medication Sig Discontinue Reason Start Date End Da te polyethylene glycol (MIRALAX) 17 gram/dose powderIndications:const ipation Take 17 g by mouth daily Therapy completed 09/20/2019 11/03/2019 acetaminophen (TYLENOL) suspension 160 mg/5 mL Error 0 nortriptyline (PAMELOR) 10 mg capsule Take 2 capsules (20 mg total) by mouth 2 (two) times a day Take 2 in afternoon and 2 at bedtime Duplicate order 10/17/2019 11/03/2019 omeprazole (PriLOSEC) 20 mg capsuleIndications:Deb tment of Non-Bleeding Gastric Disorder Take 1 capsule (20 mg total) by mouth 2 (two) times a day Reorder 09/20/2019 11/06/2019 nortriptyline (PAMELOR) 10 mg capsule Take 20 mg by mouth nightly Reorder 11/06/2019 documented as of this encounter Historical Medications * This list may reflect changes made after this encounter. nortriptyline (PAMELOR) 10 mg capsule Take 20 mg by mouth nightly 11/06/2019 nortriptyline (PAMELOR) 10 mg capsule Take 10 mg by mouth every morning 02/28/2020 acetaminophen (TYLENOL) suspension 160 mg/5 mL 11/03/2019 added in this encounter Active and Recently Administered Medications Due to Daylight Saving Time, this section may contain times in both CONTAINER FILLER and CDT. Scheduled Medication Order 11/04/2019 11/05/2019 11/06/2019 diphenhydrAMINE (BENADRYL) injection 25 mg (COMPLETED) 25 mg, intravenous, Administer over 15 Minutes, Once, On 11/05/19 at 1245, For 1 dose 1308 (Given - Provider: Vicki Anand RN) diphenhydrAMINE (BENADRYL) injection 25 mg (CANCELED) 25 mg, intravenous, Administer over 15 Minutes, Every 6 hours scheduled, First dose on 11/05/19 at 2000, With toradol, compazine for migraine cocktail 1947 (Given - Provider: Melany Francisco RN) 412 (Given - Provider: Melany Francisco RN)999 (Not Given - Provider: Vicki Anand RN - Reason: Order Discontinued) escitalopram (LEXAPRO) tablet 20 mg 20 mg, oral, Nightly, First dose on Celia 11/03/19 at 0200 1300 (OCT Hold - Provider: Automatic Transfer Provider - Reason: Patient not available)143 (OCT Unhold - Provider: Automatic Transfer Provider)2139 (Given - Provider: Jaswant Phan RN) 2002 (Given - Provider: Melany Francisco RN) fluticasone furoate-vilanteroL (BREO ELLIPTA) 100-25 mcg/dose inhaler 1 puff 1 puff, inhalation, Nightly, First dose (after last modification) on Celia 11/03/19 at 0400, Drug Name: fluticason furoate-vilanterol (Breo Ellipta) 100-25 mcg/dose diskus inhaler, Form: inhaler, Length of Therapy: Indefinite, How soon needed? (normally 72 hrs needed to procure): 0-24 hrs, Reason for Non-Formulary: not on formulary 1300 (OCT Hold - Provider: Automatic Transfer Provider - Reason: Patient not available)143 (OCT Unhold - Provider: Automatic Transfer Provider)2138 (Given - Provider: Jaswant Phan RN) 2002 (Given - Provider: Melany Francisco, GLENDA) ketorolac (TORADOL) 15 mg/mL injection 30 mg (CANCELED) 30 mg, intravenous, Administer over 5 Minutes, Every 6 hours, First dose on 11/05/19 at 1245, For 5 days, Maximum dose = 30 mg 1346 (Given - Provider: Vicki Anand, GLENDA)1845 (Not Given - Provider: Melany Francisco RN - Reason: Other)1947 (Given - Provider: Melany Francisco RN) 412 (Given - Provider: Melany Francisco RN)1000 (Not Given - Provider: Vicki Anand RN - Reason: Order Discontinued) lansoprazole (PREVACID) capsule 15 mg (CANCELED) 15 mg, oral, 2 times daily, First dose on Thu11/03/19 at 0900, Capsules may be opened and contents mixed with food or beverage. Contents should not be crushed or chewed after mixing., Indications: Treatment of Non-Bleeding Gastric Disorder 0830 (Not Given - Provider: Haily Becker RN - Reason: Patient/family refused)1300 (OCT Hold - Provider: Automatic Transfer Provider - Reason: Patient not available)1437 (MAR Unhold - Provider: Automatic Transfer Provider)2139 (Given - Provider: Jaswant Phan RN) 0854 (Given - Provider: Vicki Anand RN)2002 (Given - Provider: Melany Francisco RN) lansoprazole (PREVACID) capsule 15 mg 15 mg, oral, Every other day, First dose (after last modification) on Thu11/07/19 at 0900, Capsules may be opened and contents mixed with food or beverage. Contents should not be crushed or chewed after mixing., Indications: Treatment of Non-Bleeding Gastric Disorder LORazepam (ATIVAN) tablet 1 mg (COMPLETED) 1 mg, oral, Once, On Thu11/04/19 at 1245, For 1 dose 1239 (Given - Provider: Haily Becker RN) norgestimate-ethinyl estradioL (ORTHO TRI-CYCLEN LO) 0.18/0.215/0.25 mg-25 mcg per tablet 1 tablet 1 tablet, oral, Nightly, First dose on Thu11/03/19 at 0200, Drug Name: norgestimate-ethinyl estradiol (Ortho Tri-cyclen Lo) 0.18/0.215/0.25 mg-25 mcg per tablet, Form: tablet, Length of Therapy: Indefinite, How soon needed? (normally 72 hrs needed to procure): 0-24 hrs, Reason for Non-Formulary: Not on formulary 1300 (MAR Hold - Provider: Automatic Transfer Provider - Reason: Patient not available)1437 (OCT Unhold - Provider: Automatic Transfer Provider)2139 (Given - Provider: Jaswant Phan RN) 2002 (Given - Provider: Melany Francisco RN) nortriptyline (PAMELOR) capsule 10 mg (CANCELED) 10 mg, oral, Daily, First dose on Celia 11/03/19 at 0900 0830 (Not Given - Provider: Haily Becker RN - Reason: Patient/family refused)1300 (OCT Hold - Provider: Automatic Transfer Provider - Reason: Patient not available)1437 (OCT Unhold - Provider: Automatic Transfer Provider) 0855 (Given - Provider: Vicki Anand RN) nortriptyline (PAMELOR) capsule 10 mg (CANCELED) 10 mg, oral, Nightly, First dose (after last modification) on 11/05/19 at 2100 2010 (Given - Provider: Melany Francisco RN) nortriptyline (PAMELOR) capsule 10 mg 10 mg, oral, 2 times daily, First dose on 11/06/19 at 0900 0937 (Given - Provider: Vicki Anand RN) nortriptyline (PAMELOR) capsule 20 mg (CANCELED) 20 mg, oral, Nightly, First dose on Celia 11/03/19 at 0200 1300 (OCT Hold - Provider: Automatic Transfer Provider - Reason: Patient not available)1437 (OCT Unhold - Provider: Automatic Transfer Provider)2141 (Given - Provider: Jaswant Phan RN) prochlorperazine (COMPAZINE) injection 10 mg (CANCELED) 10 mg (rounded from 9.96 mg = 0.1 mg/kg ? 99.6 kg Dosing weight), intravenous, Administer over 5 Minutes, Every 6 hours, First dose on 11/05/19 at 1245, Maximum dose = 10 mg 1339 (Given - Provider: Vicki Anand RN)1936 (Not Given - Provider: Melany Francisco RN - Reason: Other - Comment: adjusted times)194 (Given - Provider: Melany Francisco RN) 0413 (Given - Provider: Melany Francisco RN)1000 (Not Given - Provider: Vicki Anand RN - Reason: Order Discontinued) Continuous Medication Order 11/04/2019 11/05/2019 11/06/2019 dextrose 5% and sodium chloride 0.9% with potassium chloride 20 mEq/L infusion (premix) (CANCELED) 1.5 L/m2/day ? 2.14 m2 (133.75 mL/hr, rounded to 133.8 mL/hr), intravenous, Continuous, Starting on Celia 11/03/19 at 0100 0016 (New Bag - Provider: Jaswant Phan RN)0819 (New Bag - Provider: Haily Becker RN)1639 (New Bag - Provider: Haily Becker, GLENDA) 0502 (New Bag - Provider: Jaswant Phan, GLENDA) PRN Medication Order 11/04/2019 11/05/2019 11/06/2019 acetaminophen (TYLENOL) tablet 650 mg 650 mg, oral, Every 6 hours PRN, 1st line for pain, headaches, Starting on Celia 11/03/19 at 0908 1300 (OCT Hold - Provider: Automatic Transfer Provider - Reason: Patient not available)1437 (MAR Unhold - Provider: Automatic Transfer Provider)1817 (Given - Provider: Haily Becker, GLENDA) documented in this encounter Orders Medications Ordered That Jonny ht Not Have Been Administered Count Last Ordered Date First Ordered Date lansoprazole (PREVACID) capsule 15 mg 1 02/2020 fluticasone furoate-vilanter oL (BREO ELLIPTA) 100-25 mcg/dose inhaler 1 puff 1 11/03/2019 acetaminophen (TYLENOL) 325 mg tablet - ADS Override Pull 1 11/02/2019 Diet Count Last Ordered Date First Orde red Date PEDIATRIC DISCHARGE DIET 1 11/06/2019 Nursing Count Last Ordered Date First Orde red Date DISCHARGE ACTIVITY 1 11/06/2019 DISCHARGE CALL PROVIDER 1 11/06/2019 DISCHARGE INSTRUCTIONS 1 11/06/2019 FOLLOW UP WITH ESTABLISHED PROVIDER 1 11/05 MEASURE HEIGHT AND LENGTH 1 11/03/2019 WEIGH PATIENT 1 11/03/2019 MISCELLANEOUS NURSING CARE ORDER (SPECIFY) 1 11/02/2019 Consult Count Last Ordered Date First Orde red Date IP CONSULT TO CARDIOLOGY 1 11/03/2019 IP CONSULT TO GASTROENTEROLOGY 1 11/03/2019 IP CONSULT TO NEUROLOGY 1 11/03/2019 IP CONSULT TO PSYCHOLOGY 1 11/03/2019 ADT Patient Update Count Last Ordered Date Firs t Ordered Date ED IP DECISION TO ADMIT 1 11/02/2019 documented in this encounter Care Teams Red Hat Linux Administrator Relationship Specialty Start Date End Date Kay Tinajero MD [address] [address] PCP - General Pediatrics 07/19/19 01/26/23 Kay Tinajero MD [address] [address] 07/19/19 documented as of this encounter
--- OUTSIDE RECORDS SUMMARY | 2024-08-28 02:14 | XMS_ITS | Encounter Summary ---
Author Organization [facility] Address [address] [place] [address] Phone Care Team Providers Care Marine Water Tender Name Role Phone Johnna Tinajero MD Primary Care Provider + Johnna Tinajero MD Unavailable [phone] Encounter Details Date Type Department Care Team (Late st Contact Info) Description 02/28/2020 1:30 PM CDT Telemedicine [facility] Pediatric Neurology [address] [place] [id number] Nehal Riggs, DO [address] [place], [place] [id number] Migraine without status migrainosus, not intractable, unspecified migraine type (Primary Dx) Social History Tobacco Use Types [...] on file 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 This was also discussed with your GI team. Please continue to take the Migrelief daily. For your abortive plan, please take ibuprofen as needed every 6 hours but do not take this more than 2 days per week. You may also take compazine and benadryl together with this, but this may make you sleepy. Please call if you're noticing worsening headaches. Recommend also discussing biofeedback with you psychiatrist and counselor. Agree with seeing ophthalmology. Continue to follow with GI. Migraine & Headaches - Recommend limiting or [...] understanding of personal headache patterns. - Review [email or web address] - Please call the Pediatric Neurology office at [phone] Riggs of worsening migraine or missed school due to migraine symptoms. documented in this encounter Progress Notes * Nehal Riggs, DO - 02/28/2020 1:30 PM CDT Patient Name: NINA BAUTISTA Medical Record Number (MRN): [id number] Date of (): 2000 Encounter Date: 02/28/2020 [facility] Pediatric Neurology [facility] Telemedicine Visit Chief Complaint: Nina Bautista is a 20 y.o. female seen today as an outpatient visit for hospital follow-up of migraine and spells. She is accompanied to the visit today by Mom. Portions of today's note were copied from my prior documentation and reviewed, confirmed, and edited as appropriate. History of Present Illness Nina is a 20 y.o. year old woman with a history of chronic nausea,??headaches, and??anxiety who presented to [facility] following a syncopal episode and headache 11/01-11/05. Nina awoke with a headache on 11/01. [...] prodromal symptoms were classic for vasovagal events. ?? Of note, she has had multiple [...] Severity max of 8/10. They do not wake her from sleep. With her intractable nausea and vomiting, she was admitted in August 2019 and an MRI brain was performed and was normal, ruling out a mass. She had a normal upper endoscopy at that time. Since that time there had been no change in the quality of her headaches or her n/v. Our team recommended trialing migraine cocktail which led to headache resolution but she continued to have GI symptoms. Discussed starting migrelief and then topiramate as an outpatient once nortriptyline had been discontinued. Since discharge, she has been weaned off of the nortriptyline and started on the topiramate 25mg qhs which has led to improvement of her headaches. She now has headaches once per week lasting about 1hour. These are typically occipital in location and described as a pressure. Pain score is typically 4-5/10. Pain improves when laying down in a dark room but there is no true positionality. Reports associated nausea (has daily) but no emesis, phonophobia or photophobia. She has been taking the migrelief qhs and topiramate 25mg qHS. She has had no further spells. Nina is also now seeing nutrition since her PO had decreased due to her nausea and abdominal pain and she has been losing weight. Nutrition is working with her to plan for eating 4x per day. She is also now seeing a counselor for CBT. They have not yet pursued biofeedback as they are unsure this psychologist is able to perform this. She will also be following up with cardiology. 30d event monitor was reportedly normal. Summary of Past Studies 08/2019 MRI brain normal LP 11/04/19 OP 27 with CP 13 after 28ccs removed. History Adopted so largely unknown Development Parents and hat blocking operator had no concerns for delays in development and she met her developmental milestones appropriately. Past Medical History Patient Active Problem List Diagnosis ??? Migraine headache ??? Obesity ??? Asthma, moderate persistent, well-controlled ??? Abnormal electrocardiography ??? Dander (animal) allergy ??? Vitamin D deficiency ??? Irregular menses ??? Abdominal pain ??? Asthma ??? Anxiety ??? Chronic nausea ??? Mild malnutrition (CMS/HCC) ??? Vasovagal syncope Past Medical History: Diagnosis Date ??? Abdominal pain 07/20/2019 ??? Abnormal electrocardiography 01/19/2017 Annotation: Saw cardiology 2016 and was cleared, repeat 08/25/19 Normal sinus rhythm with sinus arrhythmia with short IA ??? Anxiety 07/20/2019 ??? Asthma ??? Nausea [...] 1 tablet by mouth daily 0 ??? omeprazole (PriLOSEC) 20 mg capsule Take 1 capsule (20 mg total) by mouth every other day for 7days For 1 week, then stop taking. 5 capsule 0 ??? prochlorperazine (Compazine) 10 mg tablet Take 1 tablet (10 mg total) by mouth every 6 (six) hours as needed for nausea or vomiting Take with benadryl. 30 tablet 2 ??? topiramate (TOPAMAX) 25 mg tablet Take 1 tablet (25 mg total) by mouth nightly 30 tablet 11 No current facility-administered medications on file prior [...] tobacco, or alcohol use. ?? School She will be attending [employer] in the Fall. No IEP. Review of Systems A complete [...] by parent and was intact throughout. Coordination: [id number] coordination is normal without dysmetria or ataxia. Reflexes: Reflexes deferred. Gait: Gait is narrow-based and normal for age. She can heel-, toe-, and tandem- walk without difficulty. Impression Diagnosis Plan 1. Migraine without status migrainosus, not intractable, unspecified migraine type Nina is a 19 year old woman with a history of chronic nausea,??headaches, and??anxiety presenting for hospital follow-up of headache and spells.??With headache and associated nausea, this is likely migraine without aura. Her symptoms though are confounded with her chronic GI complaints. Her headaches have improved in frequency, length, and severity since transitioning to the topiramate from the nortriptyline. Mom feels that the topiramate has not impacted her GI symptoms. Due to her headaches being better controlled, they would like to consider discontinuing her topiramate while she is at home this summer prior to going away for college in case her headaches were to worsen while coming offof it. I have discussed this with her GI team, and we will plan to wean off her topiramate with plans to resume it if her symptoms significantly worsen. Will continue her as needed abortive plan. Roseliaalready follows with a psychologist and psychiatrist, but again recommended discussing biofeedback with her psychologist in addition to her CBT. Also recommended a headache diary and provided headache education/precautions. ?? Her??syncopal event??is not consistent with??seizure based on the description of the episode with her having a prodrome consistent with vasovagal syncope, she had??no abnormal movements noted,??and after 10 minutes of unconsciousness, she returned right back to baseline. She was found to have positive orthostatics and a low normal glucose and agree with cardiology that this was most likely a vasov agal response.??She has had no further spells. Plan - After discussing with her GI provider, [...] discussing biofeedback ?? - Provided headache education Return in about 6 months (around 08/29/2020). Future Appointments Date Time Provider Department Center 03/21/2020 1:[address] PD GI [facility] 2[facility] PD 04/06/2020 9:30 AM Luda Haji MD PD CAR [facility] PD Medications Discontinued During This Encounter Medication Reason ??? nortriptyline (PAMELOR) 10 mg capsule Alternate therapy ??? nortriptyline (PAMELOR) 10 mg capsule Alternate therapy No orders of the defined types were placed in this encounter. Thank you for allowing us to participate in the care of your patient. If you have any questions, feel free to contact me at [phone]. Sincerely, Nehal Riggs DO Pediatric Neurology PGY-3 Cosigned by Magnolia Galaviz MD at 03/20/2020 1:47 PM CDT Associated attestation - Magnolia Galaviz MD - 03/20/2020 1:47 PM CDT This was a telemedicine visit with Nina Bautista and her family which took place via Real-time video connection (InTouch, Zoom or similar). During the visit, I was located at my work office in [place], [place], the patient and family was located at their home in [place], [place]. The resident physician (Dr. Nehal Riggs) was located at his/her work office in [place], [place]. The session started at 1:30p and ended at 2:30p. I was present for 15 minutes of the visit (2:15-2:30) kayode Bautista on 02/28/2020, with over 50% of the face to face time spent in counseling and coordination of care. Total time spend on encounter on the day of the visit: 15 minutes. Day of service: 02/28/2020 The patient has been informed that the visit may not be secure and acknowledged the information. It was explained to the patient they have the option of participating in a telephone or video visitduring the [address] emergency. After being given an opportunity to ask questions about and discuss this type of visit, the patient verbally consented to proceeding with the telephone / video visit. The patient understands that this service replaces an office visit and they may be billed and/or responsible for any applicable copayments. I agree with the documentation and plan as noted below. Magnolia Olmstead MD PhD Jewellery Designer Division of Developmental and Pediatric Neurology Department of Neurology documented in this encounter Plan of Treatment Not on file documented as of this encounter Visit Diagnoses Diagnosis Migraine without status migrainosus, not intractable, unspecified migraine type- Primary documented in this encounter Discontinued Medications Medication Sig Discontinue Reason Start Date End Da te nortriptyline (PAMELOR) 10 mg capsule Take 10 mg by mouth every morning Alternate therapy 02/28/2020 nortriptyline (PAMELOR) 10 mg capsule Take 1 capsule (10 mg total) by mouth nightly Alternate therapy 11/06/2019 02/28/2020 documented as of this encounter Care Teams Marine Water Tender Relationship Specialty Start Date End Date Johnna Tinajero MD [address] [facility] [address] [place] [address] PCP - General Pediatrics 07/19/19 01/26/23 Johnna Tinajero MD [address] [facility] [address] [place] [address] 07/19/19 documented as of this encounter
--- OUTSIDE RECORDS SUMMARY | 2024-08-28 02:14 | XMS_ITS | Encounter Summary ---
Author Organization [facility] Address [address] [place] [address] Phone Care Team Providers Care Time Study Statistician Name Role Phone Johnna Tinajero MD Primary Care Provider + Johnna Tinajero MD Unavailable [phone] Reason for Visit * Reason Onset Date Comments PreScreen 03/05/2020 Encounter Details Date Type Department Care Team (Late st Contact Info) Description 03/05/2020 Telephone [facility] Pediatric Cardiology [facility] [address] [place] [address] [place] [address] Romelia Juarez CMA PreScreen Social History Tobacco Use Types Packs/Day Years [...] on file Legal Sex 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 JACKAROO Gender Identity Not on file Sexual Orientation Not on file documented as of this encounter Miscellaneous Notes * Telephone Encounter - Romelia Lowe - 03/05/2020 11:24 AM CDT Spoke with Parent/Guardian. Covid-19 prescreen completed. Reviewed arrival procedure, visitor policy and universal masking. Parent/Guardian verbalizes understanding of above. documented in this encounter Plan of Treatment Not on file documented as of this encounter Visit Diagnoses Not on filedocumented in this encounter Care Teams Time Study Statistician Relationship Specialty Start Date End Date Johnna Tinajero MD [address] [address] PCP - General Pediatrics 07/19/19 01/26/23 Johnna Tinajero MD [address] [address] 07/19/19 documented as of this encounter
--- OUTSIDE RECORDS SUMMARY | 2024-08-28 02:14 | XMS_ITS | Encounter Summary ---
Author Organization [facility] Address [address] [place] [address] [address] [place] [address] Phone Care Team Providers Care Green Inspector Name Role Phone Johnna Tinajero MD Primary Care Provider + Johnna Tinajero MD Unavailable [phone] Encounter Details Date Type Department Care Team (Late st Contact Info) Description 11/01/2019 Telephone [facility] [place] [address] Johnna Tinajero MD [address] [place] [id number] Social History Tobacco Use Types Packs/Day Years Used Date Smoking Tobacco: Never PHQ-2 Answer Date Recorded PHQ-2 Score 4 06/28/2019 Comments No Sex and Gender Information Value Date Recorded Sex Assigned at Not on file 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 Nina states that she is feeling OK, was dizzy this morning but has since resolved. Reviewed with Dr. Tinajero, we will ask school RN to take daily BP and call/fax with reports daily for ongoing monitoring. New letter prepared and faxed to school. IGHTEDGE MACHINE OPERATOR HELPER IGHTEDGE MACHINE OPERATOR HELPER * Telephone Encounter - Basilia Dillard RN - 11/01/2019 1:03 PM STRAIGHTEDGE MACHINE OPERATOR HELPER PC from mom, letter needed to school RN to take BP and send in results. ----- Message from Deidre Saavedra sent at 11/01/2019 11:05 AM STRAIGHTEDGE MACHINE OPERATOR HELPER ----- Mom says they have a battery operated sphygmomanometer at home. She is at school. Mom says she still feels a little dizzy at times, and had a slight headache yesterday. She has an appointment with neurology next week. ----- Message ----- From: Johnna Tinajero MD Sent: 11/01/2019 10:37 AM STRAIGHTEDGE MACHINE OPERATOR HELPER To: Deidre Saavedra How is she measuring the blood pressure? Is Nina at school? Is she having symptoms? ----- Message ----- From: Deidre Saavedra Sent: 11/01/2019 10:24 AM STRAIGHTEDGE MACHINE OPERATOR HELPER To: Johnna Tinajero MD Mom called, is concerned about Nina's blood pressure. States it was 140/104 after she fainted lastweek, and this morning it ws 130/100. Mom says she has decreased her nortriptyline to 30mg/daily. Wants to know if there is anything else she should do at this time. IGHTEDGE MACHINE OPERATOR HELPER IGHTEDGE MACHINE OPERATOR HELPER IGHTEDGE MACHINE OPERATOR HELPER documented in this encounter Plan of Treatment Not on file documented as of this encounter Visit Diagnoses Not on filedocumented in this encounter Care Teams Green Inspector Relationship Specialty Start Date End Date Johnna Tinajero MD [address] [address] PCP - General Pediatrics 07/19/19 01/26/23 Johnna Tinajero MD [address] [address] 07/19/19 documented as of this encounter
--- OUTSIDE RECORDS SUMMARY | 2024-08-28 02:14 | XMS_ITS | Encounter Summary ---
Author Organization [facility] Address [address] [place] [address] Phone Care Team Providers Care Damage Adjuster Name Role Phone Johnna Tinajero MD Primary Care Provider + Johnna Tinajero MD Unavailable [phone] Encounter Details Date Type Department Care Team (Late st Contact Info) Description 10/31/2019 Telephone [facility] Pediatric Gastroenterology [facility] [address] [place] [address] [place] [address] Gt Collazo, DOMINGO Social History Tobacco Use Types Packs/Day Years Used Date Smoking Tobacco: Never PHQ-2 Answer Date Recorded PHQ-2 Score 4 06/28/2019 Comments No Sex and Gender Information Value Date Recorded Sex Assigned at Not on file Legal Sex 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 SURGICAL SERVICES DIRECTOR Gender Identity Not on file Sexual Orientation Not on file documented as of this encounter Miscellaneous Notes * Telephone Encounter - Gt Collazo MA - 10/31/2019 4:02 PM CST ----- Message from Brenna Noel sent at 10/31/2019 3:41 PM SURGICAL SERVICES DIRECTOR ----- Regarding: Exam Scheduled Sw Dad, Non sed Nm gastric emptying sched 11/04/19 at 830 arrive at 8am npo 4hrs thanks. ICAL SERVICES DIRECTOR documented in this encounter Plan of Treatment Not on file documented as of this encounter Visit Diagnoses Not on filedocumented in this encounter Care Teams Damage Adjuster Relationship Specialty Start Date End Date Johnna Tinajero MD [address] [address] PCP - General Pediatrics 07/19/19 01/26/23 Johnna Tinajero MD [address] [address] 07/19/19 documented as of this encounter
--- OUTSIDE RECORDS SUMMARY | 2024-08-28 02:14 | XMS_ITS | Encounter Summary ---
Author Organization [facility] Address [address] [place] [address] [address] [place] [address] Phone Care Team Providers Care Health Sciences Department Chair Name Role Phone Johnna Tinajero MD Primary Care Provider + Johnna Tinajero MD Unavailable [phone] Encounter Details Date Type Department Care Team (Late st Contact Info) Description 10/26/2019 Telephone [facility]8 [facility] [address] [place] [address] Cecilia Owen MD [address] [place] [address] [address] [place] [address] Social History Tobacco Use Types Packs/Day Years Used Date Smoking Tobacco: Never PHQ-2 Answer Date Recorded PHQ-2 Score 4 06/28/2019 Comments No Sex and Gender Information Value Date Recorded Sex Assigned at Not on file 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 She was seen in office yesterday (see note). She just started to decreased nortriptyline to 30 mg today. +drinking fluids, +UOP. Mom is currently with her now bringing her home from school. Nina denied CP, SOB. She does not feel as dizzy or faint. Advised to monitor. Take care with postural changes,hydrate. CB office if continues or ER if faints with LOC. CARVER documented in this encounter Plan of Treatment Not on file documented as of this encounter Visit Diagnoses Not on filedocumented in this encounter Care Teams Health Sciences Department Chair Relationship Specialty Start Date End Date Johnna Tinajero MD [address] [address] PCP - General Pediatrics 07/19/19 01/26/23 Johnna Tinajero MD [address] [facility] [address] [place] [address] 07/19/19 documented as of this encounter
--- OUTSIDE RECORDS SUMMARY | 2024-08-28 02:14 | XMS_ITS | Encounter Summary ---
Author Organization [facility] Address [address] [place] [address] Care Team Providers Care Sexual Health Physician Name Role Phone Johnna Tinajero MD Primary Care Provider + Johnna Tinajero MD Unavailable [phone] Reason for Referral * Diagnostic Imaging (Routine) - Closed Specialty Diagnoses / Procedures Referred By Contac t Referred To Contact Diagnoses Abdominal pain, unspecified abdominal location Chronic nausea Procedures Nuclear Medicine gastric emptying Florina Colby MD Phone: tel: fax: [address] [address] Referral ID Status Reason Start Date Expiration Date Visits Re quested Visits Authorized [id number] Closed 10/31/2019 05/11/2021 5 5 LBOARD TANK PUMPER Reason for Visit * Diagnostic Imaging (Routine) - Closed Specialty Diagnoses / Procedures Referred By Contac t Referred To Contact Diagnoses Abdominal pain, unspecified abdominal location Chronic nausea Procedures Nuclear Medicine gastric emptying Florina Colby MD Phone: tel: fax: [address] [address] Referral ID Status Reason Start Date Expiration Date Visits Re quested Visits Authorized [id number] Closed 10/31/2019 05/11/2021 5 5 Encounter Details Date Type Department Care Team (Late st Contact Info) Description 11/04/2019 9:42 AM PANELBOARD TANK PUMPER - 11/04/2019 11:59 PM PANELBOARD TANK PUMPER Hospital Encounter [facility] Nuclear [place] [address] Florina Colby MD [address] [facility] [address] [place] [address] Abdominal pain, unspecified abdominal location; Chronic nausea Discharge Disposition: Discharge to home or self [...] on file Legal Sex 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 PANELBOARD TANK PUMPER Gender Identity Not on file Sexual Orientation [...] 0 nortriptyline (PAMELOR) 10 mg capsule Take 20 mg by mouth nightly 0 nortriptyline (PAMELOR) 10 mg capsule Take 1 capsule (10 mg total) by mouth nightly 30 capsule 1 11/06/2019 0 omeprazole (PriLOSEC) 20 mg capsuleIndicatio ns:Treatment of Non-Bleeding Gastric Disorder Take 1 capsule (20 mg total) by mouth 2 (two) times a day 60 capsule 11 09/20/2019 0 omeprazole (PriLOSEC) 20 mg capsuleIndicatio ns:Treatment [...] Name Priority Date/Time Associated Diagnosis Comments NM GASTRIC EMPTYING STUDY Schedule Routine, Read Routine (OP Routine) 11/04/2019 2:30 PM PANELBOARD TANK PUMPER Abdominal pain, unspecified abdominal location Chronic nausea documented in this encounter Results * Nuclear Medicine gastric emptying (11/04/2019 2:30 PM PANELBOARD TANK PUMPER) Anatomical Region Laterality Modality Body N/A Nuclear Medicine 11/04/2019 5:22 PM PANELBOARD TANK PUMPER Impressions 11/04/2019 9:32 PM PANELBOARD TANK PUMPER Normal gastric emptying study. Dictated by: Jeronimo Khalil MD, PHD The radiology attending physician has personally reviewed this study, and had reviewed and/or edited this written report and agrees with it. Electronically signed by: Josue Hernandez 11/04/2019 9:32 PM PANELBOARD TANK PUMPER EXAMINATION: GASTRIC EMPTYING STUDY DATE OF STUDY: [...] it. Electronically signed by: Patricio London M.D. Florina Colby MD [facility] PROCEDURES Final Result documented in this encounter Visit Diagnoses Diagnosis Abdominal pain, unspecified abdominal location Chronic nausea Nausea alone documented in this encounter Administered Medications Inactive Administered Medications - up to 3 most recent administrations Medication Order MAR Action Action Date Dose Rate Site tc-99m sulfur colloid egg 0.693 millicurie 0.693 millicurie, oral, Once in imaging, radiopharmaceutical, Starting on Thu11/04/19 at 1000 Given 11/04/2019 10:02 AM PANELBOARD TANK PUMPER 0.628 millicuries documented in this encounter Orders Medications Ordered That Jonny ht Not Have Been Administered Count Last Ordered Date First Ordered Date tc-99m sulfur colloid egg 0.693 millicurie 1 11/04/2019 documented in this encounter Care Teams Sexual Health Physician Relationship Specialty Start Date End Date Johnna Tinajero MD [address] [address] PCP - General Pediatrics 07/19/19 01/26/23 Johnna Tinajero MD [address] [address] 07/19/19 documented as of this encounter
--- OUTSIDE RECORDS SUMMARY | 2024-08-28 02:14 | XMS_ITS | Encounter Summary ---
Author Organization [facility] Address [address] [place] [address] [address] [place] [address] Phone Care Team Providers Care Performance Consultant Name Role Phone Johnna Tinajero MD Primary Care Provider + Johnna Tinajero MD Unavailable Encounter Details Date Type Department Care Team (Late st Contact Info) Description 01/12/2020 Telephone [facility]8 [facility] [address] [place] [address] Johnna Tinajero MD [address] [place] [address] [address] [place] [address] Social History Tobacco Use Types [...] on file 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 Tinajero and encouraged to follow up with GI specifically inregards to biopsy results of chronic inactive gastritis. F/U with Dr. Tinajero as needed after contacting GI. Mother agrees with plan. Will call back as needed. * Telephone Encounter - Any Syed RN - 01/12/2020 2:14 PM CDT ----- Message from Johnna Tinajero MD sent at 01/12/2020 12:58 PM CDT ----- After reviewing her records it remains unclear to me what is causing her symptoms; she's had a veryextensive workup that has been negative with the exception of her gastric biopsy which showed, I believe, chronic inactive gastritis. I'm not even sure what that means. Is she losing weight? I would e ncourage her to schedule a GI follow up visit and then after that, if no answers and symptoms persist, schedule a follow up with me. Mom should specifically ask about the gastritis pathology finding. ----- Message ----- From: Madyson Roberts Sent: 01/12/2020 9:46 AM CDT To: Johnna Tinajero MD Mom concerned about ongoing GI sxs. This has been going on since July. She describes it as pressure above navel. Also with decrease in appetite. Mom has to encourage her to eat every day. No vomiting or diarrhea and stools are nl. She has not been getting HUANG's and no syncope. She has seen GI a couple months ago.Did you want to see her? Or set up a telehealth? Return to GI? Please respond to triage documented in this encounter Plan of Treatment Not on file documented as of this encounter Visit Diagnoses Not on filedocumented in this encounter Care Teams Performance Consultant Relationship Specialty Start Date End Date Johnna Tinajero MD [address] [address] PCP - General Pediatrics 07/19/19 01/26/23 Johnna Tinajero MD [address] [address] 07/19/19 documented as of this encounter
--- OUTSIDE RECORDS SUMMARY | 2024-08-28 02:15 | XMS_ITS | Encounter Summary ---
Author Organization [facility] Address [address] [place] [address] Phone Care Team Providers Care Jumpbasting Canvas Baster Name Role Phone Johnna Tinajero MD Primary Care Provider + Johnna Tinajero MD Unavailable [phone] Reason for Visit * Reason Onset Date Comments Follow-up 10/13/2019 Encounter Details Date Type Department Care Team (Late st Contact Info) Description 10/13/[address] [facility] Pediatric Gastroenterology [facility] 2nd [place] [address] [place] [address] Florina Colby MD [address] [place] [address] [address] [place] [address] Follow-up Social History Tobacco Use Types Packs/Day Years Used Date Smoking Tobacco: Never PHQ-2 Answer Date Recorded PHQ-2 Score 4 06/28/2019 Comments No Sex and Gender Information Value Date Recorded Sex Assigned at Not on file Legal Sex 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 TIN RECOVERY WORKER Gender Identity Not on file Sexual Orientation Not on file documented as of this encounter Ordered Prescriptions Prescription Sig Dispense Quantity Refills Last Filled Start Date End Date nortriptyline (PAMELOR) 10 mg capsule Take 2 capsules (20 mg total) by mouth 2 (two) times a day Take 2 in afternoon and 2 at bedtime 120 capsule 11 10/17/2019 0 documented in this encounter Miscellaneous Notes * Telephone Encounter - Arminda Gonzalez RN - 10/17/2019 3:52 PM TIN RECOVERY WORKER Called mom and let her know she was in agreement, we sent in a new RX RECOVERY WORKER * Addendum Note - Arminda Gonzalez RN - 10/17/2019 3:52 PM CSTAddended by: ARMINDA GONZALEZ on: 10/17/2019 03:52 PM Modules accepted: Orders RECOVERY WORKER * Telephone Encounter - Maureen Weeks MD - 10/17/2019 3:26 PM TIN RECOVERY WORKER OK to make the change on nortriptyline as per the approval of the PCP/psychiatry. If no improvement will plan for gastric emptying scan and likely medication to improve gastric emptying. Thanks. RECOVERY WORKER * Telephone Encounter - Arminda Gonzalez RN - 10/17/2019 9:59 AM TIN RECOVERY WORKER Called mom back for an update Vomiting most days: usually 2 times per day, but not daily Still having a lot of nausea. No blood or bile in emesis. Mom had spoken to the PCP , who also spoke to the Psychiatry at [facility] about the Lexapro and the Nortriptyline dosing. They were comfortable with the dosing of both. Mom would like to move on increasing the Nortriptyline to 40 mg and if this does not seem to help after 1 week we can discuss the next step with Dr. Colby which will be either a trial of Gastric emptying medications or Gastric emptying studies. Mom will call back in one week. RECOVERY WORKER * Telephone Encounter - Macy Morin RMA - 10/13/2019 3:10 PM TIN RECOVERY WORKER Mom called back and said that Nina is still throwing up. Her pain is about 6/10. Lots of pressure above and bellow her belly button. The worst is when she is lying down. Also mom talked to PCP and they told her that escitalopram (LEXAPRO) 20 mg tablet is a low does and would be fine to continue. RECOVERY WORKER * Telephone Encounter - Florina Colby MD - 10/13/2019 1:47 PM CST Calling mother back to she how Nina is doing. If she continues to have nausea, okay to increase to nortriptyline to 40 mg daily. If she has restarted lexapro or any other antidepressant or anxiety medication than I would NOT increase her nortriptyline at this time. RECOVERY WORKER documented in this encounter Plan of Treatment Not on file documented as of this encounter Visit Diagnoses Not on filedocumented in this encounter Discontinued Medications Medication Sig Discontinue Reason Start Date End Da te nortriptyline (PAMELOR) 10 mg capsule Take 1 capsule (10 mg total) by mouth 2 (two) times a day Take one in afternoon and one at bedtime Reorder 09/20/2019 10/17/2019 documented as of this encounter Care Teams Jumpbasting Canvas Baster Relationship Specialty Start Date End Date Johnna Tinajero MD [address] [address] PCP - General Pediatrics 07/19/19 01/26/23 Johnna Tinajero MD [address] [address] 07/19/19 documented as of this encounter
--- OUTSIDE RECORDS SUMMARY | 2024-08-28 02:15 | XMS_ITS | Encounter Summary ---
Author Organization [facility] Address [address] [place] [address] Phone Care Team Providers Care Waiter/Waitress Club Name Role Phone Johnna Tinajero MD Primary Care Provider + Johnna Tinajero MD Unavailable [phone] Encounter Details Date Type Department Care Team (Late st Contact Info) Description 10/14/2019 Telephone [facility] Pediatric Gastroenterology [facility] 2nd [place] [address] [place] [address] Florina Colby MD [address] [place] [address] [address] [place] [address] Social History Tobacco Use Types Packs/Day Years Used Date Smoking Tobacco: Never PHQ-2 Answer Date Recorded PHQ-2 Score 4 06/28/2019 Comments No Sex and Gender Information Value Date Recorded Sex Assigned at Not on file Legal Sex 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 I was going to go up on her nortriptyline but the PCP restarted the Lexapr, so I am not sure what to do next. Let me know what you think. Thanks! GRAPH OFFICE TELEPHONE CLERK * Telephone Encounter - Paty Gray - 10/14/2019 4:21 PM TELEGRAPH OFFICE TELEPHONE CLERK Mom calling back please return call GRAPH OFFICE TELEPHONE CLERK documented in this encounter Plan of Treatment Not on file documented as of this encounter Visit Diagnoses Not on filedocumented in this encounter Care Teams Waiter/Waitress Club Relationship Specialty Start Date End Date Johnna Tinajero MD [address] [address] PCP - General Pediatrics 07/19/19 01/26/23 Johnna Tinajero MD [address] [address] 07/19/19 documented as of this encounter
--- OUTSIDE RECORDS SUMMARY | 2024-08-28 02:15 | XMS_ITS | Encounter Summary ---
Author Organization [facility] Address [address] [place] [address] Phone Care Team Providers Care Food Specialist Name Role Phone Johnna Tinajero MD Primary Care Provider + Johnna Tinajero MD Unavailable [phone] Reason for Visit * Reason Onset Date Comments Successful Phone Call 09/09/2019 Encounter Details Date Type Department Care Team (Late st Contact Info) Description 09/09/2019 Documentation [facility] Pediatric Gastroenterology [facility] 2nd [place] [address] [place] [address] Nehemiah Zhao MD [address] [place] [address] [address] [place] [address] Successful Phone Call Social History Tobacco Use Types Packs/Day Years Used Date Smoking Tobacco: Never PHQ-2 Answer Date Recorded PHQ-2 Score 4 06/28/2019 Comments No Sex and Gender Information Value Date Recorded Sex Assigned at Not on file 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 I spoke at length with mother opal. To briefly summarize, mother reported Nina continues to have nausea, and pain (previously RLQ, now more periumbilical), and has started vomiting. The vomiting occurs once up to a few times/d. Nina is always able to get to the bathroom to vomit and the vomit looks like food, with no red blood and not bilious. It had brown material in it once. She isless interested in eating, is well hydrated, is attending school. Mother also reported that Nina was changed to Lexapro, which is being managed by Dr. Tinajero, is still taking the PPI, is due for EGD on 09/22 but also on the list to call if cancellations make earlier spots available. Nina has been seen back in Dr. Tinajero's office and also reevaluated by Gynecology since her visit with me. Mother also asked about her friends advice that gallbladder scintigraphy might be a useful test for Nina. We discussed many considerations for Nina's symptoms including gastritis, which will be evaluated by the upcoming EGD, post-infectious IBD, functional GI disorder, medication side effect (eg lexapro), anxiety and depression, and others. 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 I reviewed with her that gallbladder scintigraphy studies have not proven to be a useful predictor of who will have beneficial responses to cholecystectomy and that her symptoms and the extensive studies she has had to date have not suggested the gallbladder as a likely culprit. Weagreed to the following plan. 1. Continue current medical management including attention to hydration and avoidance of NSAIDs. 2. Continued school attendance and participation in activities as possible. 3. Consider lexapro induced medication side effect as possible contributor in consultation with . 4. EGD as scheduled. 5. Consider CBT with counselor or [facility] psychology and/or supervised exercise program as approaches to functional GI disorder in effort to control current symptoms. 6. Mother should try to observe the vomiting episodes if possible. 7. We also discussed that neither Nina's symptoms nor her evaluations suggest the gallbladder as likely culprit and I do not advise scintigraphy study. If they want to further consider, they could consult with ped surgery here. 8. I will review this discussion with Dr. Tinajero. 9. We also reviewed indications for urgent re-evaluation either with PMD or in [facility] ER. ER AND PRESSER documented in this encounter Plan of Treatment Not on file documented as of this encounter Visit Diagnoses Diagnosis Abdominal pain, unspecified abdominal location- Primary documented in this encounter Care Teams Food Specialist Relationship Specialty Start Date End Date Johnna Tinajero MD [address] [address] PCP - General Pediatrics 07/19/19 01/26/23 Johnna Tinajero MD [address] [address] 07/19/19 documented as of this encounter
--- OUTSIDE RECORDS SUMMARY | 2024-08-28 02:15 | XMS_ITS | Encounter Summary ---
Author Organization [facility] Healthcare Address [address] [place] [address] Care Team Providers Care Weigh Boss Name Role Phone Johnna Tinajero MD Primary Care Provider + Johnna Tinajero MD Unavailable [phone] Reason for Visit * Reason Comments Vomiting Encounter Details Date Type Department Care Team (Late st Contact Info) Description 09/14/2019 10:10 AM SURVEYOR HYDROGRAPHIC - 09/14/2019 11:10 AM [facility] Surgery [facility] [place] [address] Klaudia Meneses MD 1 [facility] [address] [place] [address] PEDIATRIC - UPPER ENDOSCOPY with biopsies Surgery Details Date/Time Status Location OR Service Patient Class Case Class Case Type Trauma Case? 09/14/2019 10:10 AM Posted [facility] OPERATING ROOM OR CO Gastroenterology Inpatient Urgent - 24 hours Panel 1 Procedure LRB Anes Op Region Wound Class Comments PEDIATRIC - UPPER ENDOSCOPY with biopsies N/A Choice Class II - Clean Contaminated Surgeon Surgeon Role Service Panel Klaudia Meneses MD Primary Gastroenterology 1 Roma Martinez MD Gastroenterology 1 documented in this encounter Social History Tobacco Use Types Packs/Day Years Used Date Smoking Tobacco: Never PHQ-2 Answer Date Recorded PHQ-2 Score 4 06/28/2019 Comments No Sex and Gender Information Value Date Recorded Sex Assigned at Not on file Legal Sex 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 SURVEYOR HYDROGRAPHIC Gender Identity Not on file Sexual Orientation Not on file documented as of this encounter Last Filed Vital Signs Vital Sign Reading Time Taken Comments Blood Pressure 146/87 09/14/2019 10:57 AM SURVEYOR HYDROGRAPHIC Pulse 116 09/14/2019 10:57 AM SURVEYOR HYDROGRAPHIC Temperature 37.1 ??C (98.8 ??F) 09/14/2019 1 0:57 AM SURVEYOR HYDROGRAPHIC Respiratory Rate 24 09/14/2019 10:5 7 AM SURVEYOR HYDROGRAPHIC Oxygen Saturation 98% 09/14/2019 10: 57 AM SURVEYOR HYDROGRAPHIC Inhaled Oxygen Concentration - - Weight 99.4 kg (219 lb 2.2 oz) 09/13/2019 6:35 P M SURVEYOR HYDROGRAPHIC Height 161.5 cm (5' 3.58 ) 09/13/2019 6:35 PM CS T Body Mass Index 38.11 09/13/2019 6:35 PM SURVEYOR HYDROGRAPHIC Body Mass Index Percentile 98.76% 09/13/2019 6:3 5 PM SURVEYOR HYDROGRAPHIC Growth Chart: CDC (Girls, 2- 20 Years) documented in this encounter Discharge Summaries * Viktor Villagomez MD - 09/20/2019 11:16 AM CST Inpatient Discharge Summary BRIEF OVERVIEW Admitting Provider: Klaudia Meneses MD Discharge Provider: Macy Najera MD Primary Care Physician at Discharge: Johnna Tinajero MD [phone] Admission Date: 09/13/2019 Discharge Date: 09/20/2019 Admission Location: [facility] Chief Complaint: Persistent vomiting Primary Discharge Diagnosis: Functional nausea Secondary Discharge Diagnosis: Abdominal pain Nausea Mild malnutrition (CMS/HCC) DETAILS OF HOSPITAL STAY Presenting Problem/History of Present Illness: Nina is a 19 yo female with a pmh of asthma, ovarian cyst, anxiety presenting with a 2 month history of abdominal pain and nausea/vomiting. Symptoms began in July 2019 with abdominal pain. She was admitted with a right ovarian cyst thought to be the source of her abdominal pain. Abdominal painhas since improved however and she has seen [employer] in clinic who felt that the pain was likely from the cyst but would not explain the persistent nausea. From July on she has had daily nausea with vomiting 1-2x per day this month. She was seen by GI who started prilosec and planned an EGD for lateJanuary. Nina feels the prilosec has not improved her symptoms. She denies marijuana use. ?? Yesterday she vomited 12x. Vomit has generally been clear gastric contents but yesterday had several with dark red/brown liquid, although she had also had a red Gatorade. She has had an abdominal/pelvic ultrasound which was unremarkable. A repeat on admission today was unremarkable. A CT on 07/21 showed the ovarian cyst in 2018. Hospital Course: In ED patient received zofran for nausea. Pelvic/ovarian ultrasound showed normal ovaries and B-HCGwas negative. She was continued on IV fluids and zofran for nausea and dehydration. On 09/14 she underwent esophogastroduodenoscopy which was visually unremarkable, with negative H. Pylori and biopsies pending at time of discharge. An ECG was within normal limits with no concern for QT prolongation.UDS was negative besides for fentanyl due to sedation from EGD procedure. UGI series on 09/14 was wnl. Patient was started on lexapro wean to 10mg while inpatient to rule out medication as cause of nausea. MRI on 09/15 was normal. Nortriptyline was started on 09/16 per GI recs as an anti-spasmodic. As her acute nausea improved she was discharged home with GI follow up in 2-3 weeks. Active Issues Requiring Follow-up: None Test Results Pending at Discharge: None Operative Procedures Performed: Procedure(s): PEDIATRIC - UPPER ENDOSCOPY with biopsies Other Procedures: None Pertinent Test Results: EGD 09/14 - Normal Upper GI series 09/15 - Normal MRI Brain w w/o contrast 09/15 - Normal MRI of the brain. KUB 09/19 - Residual barium is seen within the transverse and descending colon. There is no evidence of obstruction. Discharge Details Physical Exam at Discharge: Discharge Condition: good Pulse: 68 Resp: 16 BP: 105/55 Temp: 36.8 ??C (98.2 ??F) Weight: 99.4 kg (219 lb 2.2 oz) Physical Exam: General Appearance: Alert, cooperative, no distress, appears stated age, well developed, well nourished, obese Head: Normocephalic, without obvious abnormality, atraumatic Eyes: PERRL, conjunctiva/corneas clear, EOM's intact, fundi benign, both eyes, anicteric Ears: Normal TM's and external ear canals, both ears Nose: Nares normal, septum midline, mucosa normal, no drainage or sinus tenderness Throat: Lips, mucosa, and tongue normal; teeth and gums normal, mucous membranes moist Neck: Supple, symmetrical, trachea midline, no adenopathy; thyroid: No enlargement/tenderness/nodules; no carotid bruit or JVD Back: Symmetric, no curvature, ROM normal, no CVA tenderness Lungs: Clear to auscultation bilaterally, respirations unlabored ? Cardiovascular: Regular rate and rhythm, S1 and S2 normal, no murmur, rub or gallop, no edema, pulses 2+ and symmetric to all extremeties Abdomen: Soft, non tender, bowel sounds active all four quadrants, no masses, no organomegaly, non-distended ? Rectal: Normal tone, no masses or tenderness; Extremities: Extremities normal, atraumatic, no cyanosis or edema, no clubbing Skin: Skin color, texture, turgor normal, no rashes, lesions or bruising Lymph nodes: Cervical, supraclavicular, and axillary nodes normal Neurologic: Alert & oriented x 4, CNII-XII intact. Normal strength, sensation and reflexes throughout Psychosocial: Normal affect and mood Discharge Disposition: Patient going to home Code [...] signs and symptoms listed below unless specified. - Persistent vomiting - Dark green or red vomit - Fever - Dehydration Summary of care Nina was admitted for management of acute nausea and vomiting. She had a pelvic ultrasound which was unremarkable. She also had an ECG to monitor for prolonged use of Zofran. She was given fluids through an IV for dehydration and medicine for nausea. On 09/14 she underwent endoscopy of her upper GItract which was unremarkable, with biopsy results pending. She had an MRI of the brain which was normal. She was weaned off Lexapro and started on Nortriptyline which she should continue taking. Discharge Medications: Current Medications TAKE these medications * albuterol 1.25 mg/3 mL nebulizer solution Take 1.25 mg by nebulization every 4 (four) hours as needed for wheezing or shortness of breath * albuterol HFA 90 mcg/actuation inhaler Commonly known as: PROVENTIL HFA,VENTOLIN HFA,PROAIR HFA Inhale 2 puffs every 6 hours as needed for wheezing or shortness of breath fluticasone furoate-vilanterol 100-25 mcg/dose diskus inhaler Commonly known as: Breo Ellipta Inhale 1 puff daily norgestimate-ethinyl estradiol 0.18/0.215/0.25 mg-25 mcg per tablet Commonly known as: ORTHO TRI-CYCLEN LO Take 1 tablet by mouth daily nortriptyline 10 mg capsule Commonly known as: PAMELOR Take 1 capsule (10 mg total) by mouth 2 (two) times a day Take one in afternoon and one at bedtime omeprazole 20 mg capsule Commonly known as: PriLOSEC Take 1 capsule (20 mg total) by mouth 2 (two) times a day polyethylene glycol 17 gram/dose powder Commonly known as: MIRALAX Take 17 g by mouth daily * This list has 2 medication(s) that are the same as other medications prescribed for you. Read the directions carefully, and ask your doctor or other care provider to review them with you. Outpatient Follow-Up: Future Appointments Date Time Provider Department Center 09/22/2019 1:15 PM Johnna Tinajero MD [facility] 10/05/2019 1:30 PM Florina Colby MD [facility] Contact Information for Follow-ups Johnna Tinajero MD Specialty: Pediatrics Relationship: PCP - General [address] [place] [address] Next Steps: Follow up Instructions: Appointment with PMD on September 22 @ 1:15 pm...... Cosigned by Macy Najera MD at 09/20/2019 7:55 PM SURVEYOR HYDROGRAPHIC EYOR HYDROGRAPHIC EYOR HYDROGRAPHIC EYOR HYDROGRAPHIC Associated attestation - Macy Najera MD - 09/20/2019 7:55 PM SURVEYOR HYDROGRAPHIC I have seen and examined the patient on 09/20/19. I agree with the findings and plan of care with the following modifications:her discharge diagnosis is vomiting with considerations including delayedgastric emptying vs. rumination. Since starting nortriptyline, she has been able to eat without vomiting. Although she has some fatigue after the afternoon dose, she is motivated to continue this dosing regimen for now in an effort to prevent vomiting in the late afternoon/evening. While we planned to do a gastric emptying scan if she remained symptomatic, this was not done sinceshe improved clinically with nortriptyline. I spent 40 minutes on this hospital discharge, including counseling of the patient/family, discharge exam and coordination of care with other providers. documented in this encounter Medications at Time [...] for wheezing or shortness of breath 0 fluticasone furoate-vilanter ol (Breo Ellipta) 100-25 mcg/dose diskus inhaler Inhale 1 puff daily 60 each 09/02/2019 3 nortriptyline (PAMELOR) 10 mg capsule Take 1 capsule (10 mg total) by mouth 2 (two) times a day Take one in afternoon and one at bedtime 60 capsule 11 09/20/2019 0 omeprazole (PriLOSEC) 20 mg capsuleIndicatio ns:Treatment of Non-Bleeding Gastric Disorder Take 1 capsule (20 mg total) by mouth 2 (two) times a day 60 capsule 09/20/2019 0 polyethylene glycol (MIRALAX) 17 gram/dose powderIndication s:constipation Take 17 g by mouth daily 510 g 1 09/20/2019 0 documented as of this encounter Ordered Prescriptions Prescription Sig Dispense Quantity Refills Last Filled Start Date End Date polyethylene glycol (MIRALAX) 17 gram/dose powderIndications: constipation Take 17 g by mouth daily 510 g 1 09/20/2019 0 nortriptyline (PAMELOR) 10 mg capsule Take 1 capsule (10 mg total) by mouth 2 (two) times a day Take one in afternoon and one at bedtime 60 capsule 09/20/2019 0 omeprazole (PriLOSEC) 20 mg capsuleIndications :Treatment of Non-Bleeding Gastric Disorder Take 1 capsule (20 mg total) by mouth 2 (two) times a day 60 capsule 09/20/2019 0 documented in this encounter Discharge Disposition Disposition Code Departure Means Destination Discharge to home or self care documented in this encounter Progress Notes * Viktor Villagomez MD - 09/19/2019 11:51 AM CST Pediatric Daily Progress Subjective Chief complaint of nausea, vomiting. Interval History: NAEON. Had a better day yesterday. Vomited x1 in past 24 hours, NB/NB gastric contents. Still has nausea but doing better holding po. She does not have any abdominal pain this morning. Appetite poor, minimal po. No fever, diarrhea, new complaints. Objective Vitals: Vitals 24 hour ranges: Temp: [36.4 ??C (97.5 ??F)-36.9 ??C (98.4 ??F)] Pulse: [74-96] Resp: [16-24] BP: (101-122)/(51-85) I/O last 2 completed shifts: In: 3017 [P.O.:502; I.V.:2515] Out: 1650 [Urine:1650] I/O this shift: In: 498 [P.O.:100; I.V.:398] Out: 400 [Urine:400] Physical Exam: General Appearance: Alert, cooperative, no distress, appears stated age, well developed, well nourished, obese Head: Normocephalic, without obvious abnormality, atraumatic Eyes: PERRL, conjunctiva/corneas clear, EOM's intact, fundi benign, both eyes, anicteric Ears: Normal TM's and external ear canals, both ears Nose: Nares normal, septum midline, mucosa normal, no drainage or sinus tenderness Throat: Lips, mucosa, and tongue normal; teeth and gums normal, mucous membranes moist Neck: Supple, symmetrical, trachea midline, no adenopathy; thyroid: No enlargement/tenderness/nodules; no carotid bruit or JVD Back: Symmetric, no curvature, ROM normal, no CVA tenderness Lungs: Clear to auscultation bilaterally, respirations unlabored ? Cardiovascular: Regular rate and rhythm, S1 and S2 normal, no murmur, rub or gallop, no edema, pulses 2+ and symmetric to all extremeties Abdomen: Soft, no tenderness to palpation, bowel sounds active all four quadrants, no masses, no organomegaly, non-distended ? Rectal: Normal tone, no masses or tenderness; Extremities: Extremities normal, atraumatic, no cyanosis or edema, no clubbing Skin: Skin color, texture, turgor normal, no rashes, lesions or bruising Lymph nodes: Cervical, supraclavicular, and axillary nodes normal Neurologic: Alert & oriented x 4, CNII-XII intact. Normal strength, sensation and reflexes throughout Psychosocial: Normal affect and mood ?? Lab/Radiology/Diagnostic Review: Laboratory review: Lab results in the last 24 hours: No results found for this or any previous visit (from the past 24 hour(s)). Imaging: Upper GI series 09/15/19 - normal MRI Brain w, w/o contrast 09/15/19 - Normal MRI of the brain. Assessment/Plan Mild malnutrition (CMS/HCC) Assessment & Plan 15 pound weight loss over several months due to chronic nausea and vomiting with resultant poor appetite. - Manage nausea symptoms - nutrition consult Nausea Assessment & Plan 2 month history of worsening nausea with numerous episodes of NB/NB emesis in the past day. Has hadsignificant workup including labs, CT, and US which [...] - KUB to evaluate passage of contrast Abdominal pain Assessment & Plan Right lower quadrant abdominal pain began in [...] for pain, avoid NSAIDS - Continue OCP Cosigned by Macy Najera MD at 09/19/2019 12:21 PM SURVEYOR HYDROGRAPHIC EYOR HYDROGRAPHIC EYOR HYDROGRAPHIC Associated attestation - Macy Najera MD - 09/19/2019 12:21 PM SURVEYOR HYDROGRAPHIC I have seen and examined the patient on 09/19/19. I agree with the findings and plan of care as documented in the resident's/fellow's note. She is doing better overall, only vomiting once yesterday in the late afternoon. She denies side effects of nortriptyline. She will be discontinuing Lexapro today. Therefore, I recommended increasing NTP to 10 mg BID (after school and before bed) in an effortto sustain the effect of the medication throughout the day. Also, we will check a KUB today to determine the amount/location of residual contrast (this is in preparation for finding the best time fornuclear medicine gastric emptying study). However, if her vomiting ceases, I would not pursue GE scan as treatment would not be altered based on the results. * Kenya Lee, GERSON - 09/18/2019 1:43 PM CST Pediatric Nutrition Assessment Nina Rohitfannieallison Doretha 2000 Reason for Assessment: Consult/Referral and Follow Up for persistent nausea, vomiting, and po hesitancy Medical History: 19 y.o. female with a pmh of asthma, ovarian cyst, anxiety presenting with a 2 month history of abdominal pain and nausea/vomiting. Past Medical History: Diagnosis Date ??? Abdominal pain 07/20/2019 ??? Abnormal electrocardiography 01/19/2017 Annotation: Saw cardiology 2016 and was cleared, repeat 08/25/19 Normal sinus rhythm with sinus arrhythmia with short CO ??? Anxiety 07/20/2019 ??? Asthma ??? Nausea 08/15/2019 ??? Vomiting multiple times per week Social: met with both Nina and caregiver at bedside Nutrition Screen What diet do you follow at home?: regular Have You Recently Lost Weight Without Trying?: Yes (Comment) How Much Weight Have You Lost?: 7.711 kg (17 lb) What is the Timeframe of Weight Change?: 3 months Poor Oral Intake for Four or More Days Prior to Admission: Yes (Comment) Anthropometrics Weight: 99.4 kg (219 lb 2.2 oz) Admission Weight : 100.6 kg %tile Weight for Age: >97 %tile Weight Change: -1.19 kg (-2.64 lbs) Height: 161.5 cm (5' 3.58 ) %tile Height for Age: 25-50 %tile BMI (Calculated): 38.1 %tile BMI for Age: >97 %tile Growth history: 06/28/19: 107 kg 08/02/19: 103.5 kg 08/15/19: 101.3 kg 09/02/19 101.3 kg 09/13/19: 99.4 kg Pt weight down approx 7% over the past 3 months. ASPEN/Malnutrition Screening Primary Indicators When Two Data Points Available Weight Loss (2-20 years): Mild (5% usual body weight)(weight loss approx 7% over the past 3 months) Patient Meets Criteria for Mild Malnutrition: Yes Estimated nutrition needs Estimated enteral needs: 22-25 kcal/kg/day Estimated parenteral calorie needs: 18-20 kcal/kg/day Estimated parenteral/enteral protein needs: 0.85-1.1 grams/kg/day Estimated fluid needs: 31 ml/kg/day Allergies: Dog dander and Penicillins Medications: Patient's active medications have been reviewed. Labs: Pertinent Nutrition Labs Reviewed Dietary Orders (From admission, onward) Start Ordered 09/15/19 0908 Pediatric Diet Regular Diet effective now Question: ([facility]) Diet type Answer: Regular 09/15/19 0907 Care Plan 1 Nutrition Diagnosis 1: Inadequate oral intake Related to: Vomiting, Nausea(abdominal pain) Evidenced by: Patient interview, Weight loss Interventions: Meals and snacks, Medical food supplement, Encouragement, Education, nutrition Goals: Adequate nutrition to meet estimated needs by next assessment Monitoring and Evaluation: Appetite, PO intake, Weight changes, Supplement tolerance Diet Experience Previously prescribed diets: Mom reports that pt used to eat well at baseline, typically 3 meals per day plus snacks. Pertinent Nutrition Information: Met with Nina and mom at bedside. They both report that today has been much better. Nina was ableto eat a bagel this morning, and keep it down. She has also been sipping on Marissa Mist all day with no issues. Reviewed suggestions for nausea - small, frequent meals, and trying more bland foods (toast, rice, bagel, applesauce). Plan: ?? Continue regular diet po ad karey, encouraging small, frequent meals. Consider Ensure Clear if unable to continue to make improvements to po intake, but Nina declined any further needs at this time. ?? Weights biweekly. Please weigh Nina, as last wt measurement was on 09/13/19. ?? Will follow per policy. EYOR HYDROGRAPHIC EYOR HYDROGRAPHIC * Sol Tapia MD - 09/18/2019 12:24 PM CST Pediatric Daily Progress Subjective Chief complaint of nausea, vomiting. Interval History: NAEON. Had a better day yesterday. Was able to keep breakfast down. Vomited x3 inpast 24 hours, NB/NB gastric contents. She does not have any abdominal pain this morning. Appetite poor, minimal po. No fever, diarrhea, new complaints. Objective Vitals: Vitals 24 hour ranges: Temp: [36.3 ??C (97.3 ??F)-36.8 ??C (98.2 ??F)] Pulse: [74-84] Resp: [18-20] BP: (111-125)/(72-85) I/O last 2 completed shifts: In: 2609 [P.O.:280; I.V.:2329] Out: 1950 [Urine:1950] I/O this shift: In: 646 [P.O.:100; I.V.:546] Out: 500 [Urine:500] Physical Exam: General Appearance: Alert, cooperative, no distress, appears stated age, well developed, well nourished, obese Head: Normocephalic, without obvious abnormality, atraumatic Eyes: PERRL, conjunctiva/corneas clear, EOM's intact, fundi benign, both eyes, anicteric Ears: Normal TM's and external ear canals, both ears Nose: Nares normal, septum midline, mucosa normal, no drainage or sinus tenderness Throat: Lips, mucosa, and tongue normal; teeth and gums normal, mucous membranes moist Neck: Supple, symmetrical, trachea midline, no adenopathy; thyroid: No enlargement/tenderness/nodules; no carotid bruit or JVD Back: Symmetric, no curvature, ROM normal, no CVA tenderness Lungs: Clear to auscultation bilaterally, respirations unlabored ? Cardiovascular: Regular rate and rhythm, S1 and S2 normal, no murmur, rub or gallop, no edema, pulses 2+ and symmetric to all extremeties Abdomen: Soft, no tenderness to palpation, bowel sounds active all four quadrants, no masses, no organomegaly, non-distended ? Rectal: Normal tone, no masses or tenderness; Extremities: Extremities normal, atraumatic, no cyanosis or edema, no clubbing Skin: Skin color, texture, turgor normal, no rashes, lesions or bruising Lymph nodes: Cervical, supraclavicular, and axillary nodes normal Neurologic: Alert & oriented x 4, CNII-XII intact. Normal strength, sensation and reflexes throughout Psychosocial: Normal affect and mood ?? Lab/Radiology/Diagnostic Review: Laboratory review: Lab results in the last 24 hours: No results found for this or any previous visit (from the past 24 hour(s)). Imaging: Upper GI series 09/15/19 - normal MRI Brain w, w/o contrast 09/15/19 - Normal MRI of the brain. Assessment/Plan Mild malnutrition (CMS/HCC) Assessment & Plan 15 pound weight loss over several months due to chronic nausea and vomiting with resultant poor appetite. - Manage nausea symptoms - nutrition consult Nausea Assessment & Plan 2 month history of worsening nausea with numerous episodes of NB/NB emesis in the past day. Has hadsignificant workup including labs, CT, and US which [...] if contrast cleared, gastric emptying if clear. Abdominal pain Assessment & Plan Right lower quadrant abdominal pain began in [...] for pain, avoid NSAIDS - Continue OCP Cosigned by Macy Najera MD at 09/18/2019 2:38 PM SURVEYOR HYDROGRAPHIC EYOR HYDROGRAPHIC EYOR HYDROGRAPHIC Associated attestation - Macy Najera MD - 09/18/2019 2:38 PM SURVEYOR HYDROGRAPHIC I have seen and examined the patient on 09/18/19. I agree with the findings and plan of care as documented in the resident's/fellow's note. Nina was able to tolerate breakfast without vomiting yesterday but vomited lunch and dinner. She does not have any notable side effects of notriptyline therapy. She will be stopping Lexapro in the near future. Therefore, we have room to increase the dose of nortriptyline - either with the nighttime dose or less traditionally with BID dosing of this medication (the latter due to the paucity of associated sedation). I would recommend increasing the total dose of nortriptyline to 20 mg - either 20 mg qHS or 10 mg BID. * Viktor Villagomez MD - 09/17/2019 3:13 PM CST Pediatric Daily Progress Subjective Chief complaint of nausea, vomiting. Interval History: NAEON. Vomited x4 in past 24 hours, NB/NB gastric contents. Required zofran x1. Appetite poor, minimal po. No fever, diarrhea, new complaints. Objective Vitals: Vitals 24 hour ranges: Temp: [36.3 ??C (97.3 ??F)-36.6 ??C (97.9 ??F)] Pulse: [70-88] Resp: [18-20] BP: (117-125)/(74-89) I/O last 2 completed shifts: In: 2868 [P.O.:130; I.V.:2738] Out: 1750 [Urine:1750] I/O this shift: In: 861 [P.O.:120; I.V.:741] Out: 750 [Urine:750] Physical Exam: General Appearance: Alert, cooperative, no distress, appears stated age, well developed, well nourished, obese Head: Normocephalic, without obvious abnormality, atraumatic Eyes: PERRL, conjunctiva/corneas clear, EOM's intact, fundi benign, both eyes, anicteric Ears: Normal TM's and external ear canals, both ears Nose: Nares normal, septum midline, mucosa normal, no drainage or sinus tenderness Throat: Lips, mucosa, and tongue normal; teeth and gums normal, mucous membranes moist Neck: Supple, symmetrical, trachea midline, no adenopathy; thyroid: No enlargement/tenderness/nodules; no carotid bruit or JVD Back: Symmetric, no curvature, ROM normal, no CVA tenderness Lungs: Clear to auscultation bilaterally, respirations unlabored ? Cardiovascular: Regular rate and rhythm, S1 and S2 normal, no murmur, rub or gallop, no edema, pulses 2+ and symmetric to all extremeties Abdomen: Soft,mild mid abdominal tenderness to palpation, bowel sounds active all four quadrants, no masses, no organomegaly, non-distended ? Rectal: Normal tone, no masses or tenderness; Extremities: Extremities normal, atraumatic, no cyanosis or edema, no clubbing Skin: Skin color, texture, turgor normal, no rashes, lesions or bruising Lymph nodes: Cervical, supraclavicular, and axillary nodes normal Neurologic: Alert & oriented x 4, CNII-XII intact. Normal strength, sensation and reflexes throughout Psychosocial: Normal affect and mood ?? Lab/Radiology/Diagnostic Review: Laboratory review: Lab results in the last 24 hours: No results found for this or any previous visit (from the past 24 hour(s)). Imaging: Upper GI series 09/15/19 - normal MRI Brain w, w/o contrast 09/15/19 - Normal MRI of the brain. Assessment/Plan Mild malnutrition (CMS/HCC) Assessment & Plan 15 pound weight loss over several months due to chronic nausea and vomiting with resultant poor appetite. - Manage nausea symptoms - nutrition consult - Consider cyproheptadine Nausea Assessment & Plan 2 month history of worsening nausea with numerous episodes of NB/NB emesis in the past day. Has hadsignificant workup including labs, CT, and US which [...] nausea - Gastric emptying study next week Abdominal pain Assessment & Plan Right lower quadrant abdominal pain began in [...] for pain, avoid NSAIDS - Continue OCP Cosigned by Macy Najera MD at 09/17/2019 9:09 PM SURVEYOR HYDROGRAPHIC EYOR HYDROGRAPHIC EYOR HYDROGRAPHIC Associated attestation - Macy Najera MD - 09/17/2019 9:09 PM SURVEYOR HYDROGRAPHIC I have seen and examined the patient on 09/17/19. I agree with the findings and plan of care as documented in the resident's/fellow's note. Considerations include rumination vs. Gastroparesis. NTP added to med regimen. Gastric emptying scan to be done next week. * Viktor Villagomez MD - 09/16/2019 11:48 AM CST Pediatric Daily Progress Subjective Chief complaint of nausea, vomiting. Interval History: NAEON. Vomited x2 overnight, NB/NB gastric contents. Required zofran x1. Appetitepoor. No fever, diarrhea, new complaints. Objective Vitals: Vitals 24 hour ranges: Temp: [36.3 ??C (97.3 ??F)-36.9 ??C (98.4 ??F)] Pulse: [65-78] Resp: [16-21] BP: (108-130)/(74-88) I/O last 2 completed shifts: In: 3592.1 [P.O.:412; I.V.:3180.1] Out: 2450 [Urine:2450] I/O this shift: In: 255 [I.V.:255] Out: 400 [Urine:400] Physical Exam: General Appearance: Alert, cooperative, no distress, appears stated age, well developed, well nourished, obese Head: Normocephalic, without obvious abnormality, atraumatic Eyes: PERRL, conjunctiva/corneas clear, EOM's intact, fundi benign, both eyes, anicteric Ears: Normal TM's and external ear canals, both ears Nose: Nares normal, septum midline, mucosa normal, no drainage or sinus tenderness Throat: Lips, mucosa, and tongue normal; teeth and gums normal, mucous membranes moist Neck: Supple, symmetrical, trachea midline, no adenopathy; thyroid: No enlargement/tenderness/nodules; no carotid bruit or JVD Back: Symmetric, no curvature, ROM normal, no CVA tenderness Lungs: Clear to auscultation bilaterally, respirations unlabored ? Cardiovascular: Regular rate and rhythm, S1 and S2 normal, no murmur, rub or gallop, no edema, pulses 2+ and symmetric to all extremeties Abdomen: Soft,mild mid abdominal tenderness to palpation, bowel sounds active all four quadrants, no masses, no organomegaly, non-distended ? Rectal: Normal tone, no masses or tenderness; Extremities: Extremities normal, atraumatic, no cyanosis or edema, no clubbing Skin: Skin color, texture, turgor normal, no rashes, lesions or bruising Lymph nodes: Cervical, supraclavicular, and axillary nodes normal Neurologic: Alert & oriented x 4, CNII-XII intact. Normal strength, sensation and reflexes throughout Psychosocial: Normal affect and mood ?? Lab/Radiology/Diagnostic Review: Laboratory review: Lab results in the last 24 hours: No results found for this or any previous visit (from the past 24 hour(s)). Imaging: Upper GI series 09/15/19 - normal MRI Brain w, w/o contrast 09/15/19 - Normal MRI of the brain. Assessment/Plan Mild malnutrition (CMS/HCC) Assessment & Plan 15 pound weight loss over several months due to chronic nausea and vomiting with resultant poor appetite. - Manage nausea symptoms - nutrition consult - Consider cyproheptadine Nausea Assessment & Plan 2 month history of worsening nausea with numerous episodes of NB/NB emesis in the past day. Has hadsignificant workup including labs, CT, and US which [...] nausea - Gastric emptying study next week Abdominal pain Assessment & Plan Right lower quadrant abdominal pain began in [...] for pain, avoid NSAIDS - Continue OCP Cosigned by Macy Najera MD at 09/16/2019 9:19 PM SURVEYOR HYDROGRAPHIC EYOR HYDROGRAPHIC EYOR HYDROGRAPHIC Associated attestation - Macy Najera MD - 09/16/2019 9:19 PM SURVEYOR HYDROGRAPHIC I have seen and examined the patient on 09/16/19. I agree with the findings and plan of care as documented in the resident's/fellow's note. We will trial nortriptyline as an alternative to cyproheptadine in this setting. Goal = to improve the normal functioning of the stomach. Considerations include rumination vs. Gastroparesis. Will proceed with gastric emptying scan to differentiate the considerations above. * Viktor Villagomez MD - 09/15/2019 3:01 PM CST Pediatric Daily Progress Subjective Chief complaint of nausea, vomiting. Interval History: NAEON. Vomited x2 overnight, NB/NB gastric contents. Appetite poor. No fever, diarrhea, new complaints. NPO from midnight for upper GI study today. Objective Vitals: Vitals 24 hour ranges: Temp: [36.4 ??C (97.5 ??F)-37 ??C (98.6 ??F)] Pulse: [64-96] Resp: [16-20] BP: (106-132)/(53-81) I/O last 2 completed shifts: In: 3975 [P.O.:522; I.V.:3453] Out: 2160 [Urine:2160] I/O this shift: In: 644.6 [I.V.:644.6] Out: 350 [Urine:350] Physical Exam: General Appearance: Alert, cooperative, no distress, appears stated age, well developed, well nourished, obese Head: Normocephalic, without obvious abnormality, atraumatic Eyes: PERRL, conjunctiva/corneas clear, EOM's intact, fundi benign, both eyes, anicteric Ears: Normal TM's and external ear canals, both ears Nose: Nares normal, septum midline, mucosa normal, no drainage or sinus tenderness Throat: Lips, mucosa, and tongue normal; teeth and gums normal, mucous membranes moist Neck: Supple, symmetrical, trachea midline, no adenopathy; thyroid: No enlargement/tenderness/nodules; no carotid bruit or JVD Back: Symmetric, no curvature, ROM normal, no CVA tenderness Lungs: Clear to auscultation bilaterally, respirations unlabored ? Cardiovascular: Regular rate and rhythm, S1 and S2 normal, no murmur, rub or gallop, no edema, pulses 2+ and symmetric to all extremeties Abdomen: Soft,mild mid abdominal tenderness to palpation, bowel sounds active all four quadrants, no masses, no organomegaly, non-distended ? Rectal: Normal tone, no masses or tenderness; Extremities: Extremities normal, atraumatic, no cyanosis or edema, no clubbing Skin: Skin color, texture, turgor normal, no rashes, lesions or bruising Lymph nodes: Cervical, supraclavicular, and axillary nodes normal Neurologic: Alert & oriented x 4, CNII-XII intact. Normal strength, sensation and reflexes throughout Psychosocial: Normal affect and mood ?? Lab/Radiology/Diagnostic Review: Laboratory review: Lab results in the last 24 hours: No results found for this or any previous visit (from the past 24 hour(s)). Imaging: Upper GI series 09/15/19 - normal Assessment/Plan Mild malnutrition (CMS/HCC) Assessment & Plan 15 pound weight loss over several months due to chronic nausea and vomiting with resultant poor appetite. - Manage nausea symptoms - nutrition consult Nausea Assessment & Plan 2 month history of worsening nausea with numerous episodes of NB/NB emesis in the past day. Has hadsignificant workup including labs, CT, and US which [...] lexapro vs start cyproheptadine - Zofran prn Abdominal pain Assessment & Plan Right lower quadrant abdominal pain began in [...] for pain, avoid NSAIDS - Continue OCP Cosigned by Klaudia Meneses MD at 09/15/2019 3:21 PM SURVEYOR HYDROGRAPHIC EYOR HYDROGRAPHIC EYOR HYDROGRAPHIC EYOR HYDROGRAPHIC Associated attestation - Klaudia Meneses MD - 09/15/2019 3:21 PM SURVEYOR HYDROGRAPHIC I have seen and examined the patient on 09/15/19. I agree with the findings and plan of care as documented in the resident's/fellow's note. * Savita Che RD - 09/14/2019 4:13 PM CST Pediatric Nutrition Assessment Nina Edisonmatthew Coyne 2000 Reason for Assessment: Initial Nutrition Assessment for poor PO intake and weight loss Medical History: 19 y.o. female with a pmh of asthma, ovarian cyst, anxiety presenting with a 2 month history of abdominal pain and nausea/vomiting. Past Medical History: Diagnosis Date ??? Abdominal pain 07/20/2019 ??? Abnormal electrocardiography 01/19/2017 Annotation: Saw cardiology 2016 and was cleared, repeat 08/25/19 Normal sinus rhythm with sinus arrhythmia with short CO ??? Anxiety 07/20/2019 ??? Asthma ??? Nausea 08/15/2019 ??? Vomiting multiple times per week Social: pt sleeping, met with mom at bedside Nutrition Screen What diet do you follow at home?: regular Have You Recently Lost Weight Without Trying?: Yes (Comment) How Much Weight Have You Lost?: 7.711 kg (17 lb) What is the Timeframe of Weight Change?: 3 months Poor Oral Intake for Four or More Days Prior to Admission: Yes (Comment) Anthropometrics Weight: 99.4 kg (219 lb 2.2 oz) Admission Weight : 100.6 kg %tile Weight for Age: >97 %tile Weight Change: -1.19 kg (-2.64 lbs) Height: 161.5 cm (5' 3.58 ) %tile Height for Age: 25-50 %tile BMI (Calculated): 38.1 %tile BMI for Age: >97 %tile Growth history: 06/28/19: 107 kg 08/02/19: 103.5 kg 08/15/19: 101.3 kg 09/02/19 101.3 kg 09/13/19: 99.4 kg Pt weight down approx 7% over the past 3 months. ASPEN/Malnutrition Screening Primary Indicators When Two Data Points Available Weight Loss (2-20 years): Mild (5% usual body weight)(weight loss approx 7% over the past 3 months) Patient Meets Criteria for Mild Malnutrition: Yes Estimated nutrition needs Calorie DRI Physical Activity Coefficients: Sedentary Weight Used for Calculation (kg): 99.4 kg (219 lb 2.2 oz) Total Calorie DRI : 2139.12 DRI kcal/kg/day: 21.52 Protein DRI Weight Used for Calculation (kg): 99.4 kg (219 lb 2.2 oz) Total Protein DRI (ONLINE MARKETING COORDINATOR/AI): 84.49 Protein DRI grams/kg/day: 0.85 Baseline Fluid Requirement Weight Used for Calculation (kg): 99.4 kg (219 lb 2.2 oz) Total Baseline Fluid Requirements : 3088 Baseline Fluids grams/kg/day: 31.07 Estimated enteral needs: 22-25 kcal/kg/day Estimated parenteral calorie needs: 18-20 kcal/kg/day Estimated parenteral/enteral protein needs: 0.85-1.1 grams/kg/day Estimated fluid needs: 31 ml/kg/day Allergies: Dog dander and Penicillins Medications: Patient's active medications have been reviewed. Labs: Pertinent Nutrition Labs Reviewed Dietary Orders (From admission, onward) Start Ordered 09/15/19 0001 Pediatric NPO Diet Diet effective midnight 09/14/19 1156 09/14/19 1156 Pediatric Diet Regular Diet effective now Question: ([facility]) Diet type Answer: Regular 09/14/19 1156 Care Plan 1 Nutrition Diagnosis 1: Inadequate oral intake Related to: Vomiting, Nausea(abdominal pain) Evidenced by: Patient interview, Weight loss Interventions: Meals and snacks, Medical food supplement, Encouragement, Education, nutrition Goals: Adequate nutrition to meet estimated needs by next assessment Monitoring and Evaluation: Appetite, PO intake, Weight changes, Supplement tolerance Diet Experience Previously prescribed diets: Mom reports that pt used to eat well at baseline, typically 3 meals per day plus snacks. Pertinent Nutrition Information: Mom indicates that pt has had ~2 month history of nausea with vomiting in addition to abdominal pain. She reports that pt has had poor PO intake due to these symptomsand has trouble at this point even keeping down water. Reviewed nutritional needs, diet tips for PO intake/tolerance, options available to help with intake, and encouraged intake as tolerated. Mom interested in having pt try ensure clear, samples sent to bedside. Plan: ?? Regular diet as ordered, encourage PO intake as tolerated. Ensure clear or supplement of pt choice prn until appetite/PO intake improves ?? Weights biweekly ?? Will follow per policy RD available [phone] EYOR HYDROGRAPHIC * Viktor Villagomez MD - 09/14/2019 1:01 PM CST Pediatric Daily Progress Subjective Chief complaint of nausea, vomiting. Interval History: NAEON. Vomited x1 overnight, NB/NB gastric contents. No fever, diarrhea, new complaints. NPO from midnight for scope today. Objective Vitals: Vitals 24 hour ranges: Temp: [36.4 ??C (97.5 ??F)-37.1 ??C (98.8 ??F)] Pulse: [64-116] Resp: [12-24] BP: (118-146)/(70-91) FiO2 (%): [100 %] I/O last 2 completed shifts: In: 1806 [P.O.:350; I.V.:1456] Out: 150 [Urine:150] I/O this shift: In: 888.1 [P.O.:90; I.V.:798.1] Out: - Physical Exam: General Appearance: Alert, cooperative, no distress, appears stated age, well developed, well nourished, obese Head: Normocephalic, without obvious abnormality, atraumatic Eyes: PERRL, conjunctiva/corneas clear, EOM's intact, fundi benign, both eyes, anicteric Ears: Normal TM's and external ear canals, both ears Nose: Nares normal, septum midline, mucosa normal, no drainage or sinus tenderness Throat: Lips, mucosa, and tongue normal; teeth and gums normal, mucous membranes moist Neck: Supple, symmetrical, trachea midline, no adenopathy; thyroid: No enlargement/tenderness/nodules; no carotid bruit or JVD Back: Symmetric, no curvature, ROM normal, no CVA tenderness Lungs: Clear to auscultation bilaterally, respirations unlabored ? Cardiovascular: Regular rate and rhythm, S1 and S2 normal, no murmur, rub or gallop, no edema, pulses 2+ and symmetric to all extremeties Abdomen: Soft,mild mid abdominal tenderness to palpation, bowel sounds active all four quadrants, no masses, no organomegaly, non-distended ? Rectal: Normal tone, no masses or tenderness; Extremities: Extremities normal, atraumatic, no cyanosis or edema, no clubbing Skin: Skin color, texture, turgor normal, no rashes, lesions or bruising Lymph nodes: Cervical, supraclavicular, and axillary nodes normal Neurologic: Alert & oriented x 4, CNII-XII intact. Normal strength, sensation and reflexes throughout Psychosocial: Normal affect and mood ?? Lab/Radiology/Diagnostic Review: Laboratory review: Lab results in the last 24 hours: Recent Results (from the past 24 hour(s)) hCG, urine, qualitative Collection Time: 09/13/19 2:07 PM Result Value Ref Range HCG, ur Negative Negative POCT urinalysis (Clinitek) Collection Time: 09/13/19 2:11 PM Result Value Ref Range Color, ur, POC Yellow Clarity, UA, POC Clear Glucose, ur, POC Negative Bilirubin, ur, POC Negative Ketones, ur, POC Negative Specific gravity, ur, POC 1.025 1.010 - 1.025 Blood, ur, POC Negative pH, ur, POC 6.5 Protein, ur, POC Negative Urobilinogen, ur, POC 2.0 (A) Nitrites, ur, POC Negative Leukocyte esterase, ur, POC Negative Assessment/Plan Nausea Assessment & Plan 2 month history of worsening nausea with numerous episodes of NB/NB emesis in the past day. Has hadsignificant workup including labs, CT, and US which [...] ECG for prolonged zofran use - UDS Abdominal pain Assessment & Plan Right lower quadrant abdominal pain began in [...] for pain, avoid NSAIDS - Continue OCP Cosigned by Klaudia Meneses MD at 09/15/2019 3:26 PM SURVEYOR HYDROGRAPHIC EYOR HYDROGRAPHIC EYOR HYDROGRAPHIC Associated attestation - Klaudia Meneses MD - 09/15/2019 3:26 PM SURVEYOR HYDROGRAPHIC I have seen and examined the patient on 09/14/19. I agree with the findings and plan of care as documented in the resident's/fellow's note. documented in this encounter H&P Notes * Viktor Villagomez MD - 09/13/2019 7:51 PM CST History and Physical Subjective Patient is a 19 y.o. female with chief complaint of vomiting, abdominal pain. HPI: Nina is a 19 yo female with a pmh of asthma, ovarian cyst, anxiety presenting with a 2 month history of abdominal pain and nausea/vomiting. Symptoms began in July 2019 with abdominal pain. She was admitted with a right ovarian cyst thought to be the source of her abdominal pain. Abdominal painhas since improved however and she has seen [employer] in clinic who felt that the pain was likely from the cyst but would not explain the persistent nausea. From July on she has had daily nausea with vomiting 1-2x per day this month. She was seen by GI who started prilosec and planned an EGD for lateJanuary. Nina feels the prilosec has not improved her symptoms. Yesterday she vomited 12x. Vomit has generally been clear gastric contents but yesterday had several with dark red/brown liquid, although she had also had a red Gatorade. She has had an abdominal/pelvic ultrasound which was unremarkable. A repeat on admission today was unremarkable. A CT on 07/21 showed the ovarian cyst in 2018. A HEADS exam was conducted with the patient without any other family members present. She is in 12th grade and plans to attend [employer] next year. She is active in drama and choir. She feels safeat school and at home. She does not use alcohol, tobacco, or drugs but as friends who do. She has never been sexually active. She has had feelings of anxiety and has been on lexapro for several months now. She sees a therapist. She previously had feelings of depression but her mood is now improved.She denies SI. Past Medical History: Diagnosis Date ??? Abdominal pain 07/20/2019 ??? Abnormal electrocardiography 01/19/2017 Annotation: Saw cardiology 2016 and was cleared, repeat 08/25/19 Normal sinus rhythm with sinus arrhythmia with short CO ??? Anxiety 07/20/2019 ??? Asthma ??? Nausea 08/15/2019 ??? Vomiting multiple times per week Past Surgical History: Procedure Laterality Date ??? WRIST SURGERY Medications Prior to Admission Medication Sig Dispense Refill Last Dose ??? albuterol (PROVENTIL,VENTOLIN) 1.25 mg/3 mL nebulizer solution Take 3 mL by nebulization every 4 (four) hours as needed for wheezing or shortness of breath Not Taking ??? albuterol HFA (PROVENTIL HFA,VENTOLIN HFA,PROAIR HFA) 90 mcg/actuation inhaler Inhale 2 puffs every 6 hours as needed for wheezing or shortness of breath Not Taking ??? escitalopram (LEXAPRO) 20 mg tablet Take 1 tablet (20 mg total) by mouth daily 30 tablet 3 ??? fluticasone furoate-vilanterol (Breo Ellipta) 100-25 mcg/dose diskus inhaler Inhale 1 puff daily 60 each 0 ??? fluticasone propionate (FLONASE) 50 mcg/actuation nasal spray Administer 2 sprays into each nostril daily Not Taking ??? norgestimate-ethinyl estradiol (ORTHO TRI-CYCLEN LO) 0.18/0.215/0.25 mg-25 mcg per tablet Take 1 tablet by mouth daily 0 ??? omeprazole (PriLOSEC) 20 mg capsule Take 1 capsule (20 mg total) by mouth 2 (two) times a day 60 capsule 1 ??? ondansetron ODT (ZOFRAN-ODT) 4 mg disintegrating tablet Take 1 tablet (4 mg total) by mouth every 6 (six) hours as needed for nausea or vomiting 20 tablet 0 Allergies Allergen Reactions ??? Dog Dander Hives Reaction: HIVES, ??? Penicillins Other (See comments) and Rash As a child Reaction: NAUSEA;, As a child Social History Tobacco Use ??? Smoking status: Never Smoker Substance Use Topics ??? Alcohol use: Not on file Family History Adopted: Yes Family history unknown: Yes Review of Systems Review of Systems Constitutional: Positive for weight loss. Negative for chills, diaphoresis, fever and malaise/fatigue. HENT: Negative for congestion, ear pain, hearing loss and sinus pain. Eyes: Negative for blurred vision and discharge. Respiratory: Negative for cough, hemoptysis, sputum production, shortness of breath and wheezing. Cardiovascular: Negative for chest pain, palpitations, orthopnea and leg swelling. Gastrointestinal: Positive for abdominal pain, nausea and vomiting. Negative for blood in stool, constipation, diarrhea and melena. Genitourinary: Negative for dysuria, frequency and urgency. Musculoskeletal: Negative for myalgias. Skin: Negative for itching and rash. Neurological: Negative for dizziness, tremors, focal weakness, seizures, weakness and headaches. Endo/Heme/Allergies: Does not bruise/bleed easily. Psychiatric/Behavioral: Negative for depression and suicidal ideas. The patient is nervous/anxious. Objective Vitals: Arrival Vitals Temp 09/13/19 1022 36.4 ??C (97.5 ??F) Pulse 09/13/19 1022 72 Resp 09/13/19 1022 18 BP 09/13/19 1022 (!) 139/88 SpO2 09/13/19 1022 96 % Temp src 09/13/19 1022 Temporal Heart Rate Source 09/13/19 1524 Monitor Patient Position 09/13/19 1524 Lying BP Location 09/13/19 1524 Left arm FiO2 (%) -- 24hr Min/Max: Temp Min: 36.4 ??C (97.5 ??F) Max: 36.5 ??C (97.7 ??F) Pulse Min: 65 Max: 75 BP Min: 118/83 Max: 139/88 Resp Min: 16 Max: 20 SpO2 Min: 96 % Max: 100 % Most Recent : Vitals: 09/13/19 1836 BP: 124/80 Pulse: Resp: Temp: SpO2: No intake/output data recorded. No intake/output data recorded. Physical exam: General Appearance: Alert, cooperative, no distress, appears stated age, well developed, well nourished, obese Head: Normocephalic, without obvious abnormality, atraumatic Eyes: PERRL, conjunctiva/corneas clear, EOM's intact, fundi benign, both eyes, anicteric Ears: Normal TM's and external ear canals, both ears Nose: Nares normal, septum midline, mucosa normal, no drainage or sinus tenderness Throat: Lips, mucosa, and tongue normal; teeth and gums normal, mucous membranes moist Neck: Supple, symmetrical, trachea midline, no adenopathy; thyroid: No enlargement/tenderness/nodules; no carotid bruit or JVD Back: Symmetric, no curvature, ROM normal, no CVA tenderness Lungs: Clear to auscultation bilaterally, respirations unlabored Cardiovascular: Regular rate and rhythm, S1 and S2 normal, no murmur, rub or gallop, no edema, pulses 2+ and symmetric to all extremeties Abdomen: Soft, non-tender, bowel sounds active all four quadrants, no masses, no organomegaly, non-distended Rectal: Normal tone, no masses or tenderness; Extremities: Extremities normal, atraumatic, no cyanosis or edema, no clubbing Skin: Skin color, texture, turgor normal, no rashes, lesions or bruising Lymph nodes: Cervical, supraclavicular, and axillary nodes normal Neurologic: Alert & oriented x 4, CNII-XII intact. Normal strength, sensation and reflexes throughout Psychosocial: Normal affect and mood Lab/Radiology/Diagnostic Review: Laboratory review: Lab results in the last 24 hours: Recent Results (from the past 24 hour(s)) hCG, urine, qualitative Collection Time: 09/13/19 2:07 PM Result Value Ref Range HCG, ur Negative Negative POCT urinalysis (Clinitek) Collection Time: 09/13/19 2:11 PM Result Value Ref Range Color, ur, POC Yellow Clarity, UA, POC Clear Glucose, ur, POC Negative Bilirubin, ur, POC Negative Ketones, ur, POC Negative Specific gravity, ur, POC 1.025 1.010 - 1.025 Blood, ur, POC Negative pH, ur, POC 6.5 Protein, ur, POC Negative Urobilinogen, ur, POC 2.0 (A) Nitrites, ur, POC Negative Leukocyte esterase, ur, POC Negative Imaging: US Pelvis and Ovaries R/o torsion 09/13/19 - Normal Assessment/Plan Nausea Assessment & Plan 2 month history of worsening nausea with numerous episodes of NB/NB emesis in the past day. Has hadsignificant workup including labs, CT, and US which [...] marijuana use. - Admit to GI - [facility] - O at midnight for EGD 09/14 - Zofran prn Abdominal pain Assessment & Plan Right lower quadrant abdominal pain began in [...] for pain, avoid NSAIDS - Continue OCP Cosigned by Klaudia Meneses MD at 09/14/2019 10:05 PM SURVEYOR HYDROGRAPHIC EYOR HYDROGRAPHIC EYOR HYDROGRAPHIC Associated attestation - Klaudia Meneses MD - 09/14/2019 10:05 PM SURVEYOR HYDROGRAPHIC I have seen and examined the patient on 09/14/19. I agree with the findings and plan of care as documented in the resident's/fellow's note. documented in this encounter Procedure Notes * Klaudia Meneses MD - 09/14/2019 9:59 AM CSTAssociated Order(s): EGD Patient Name: Nina Coyne Procedure Date: 09/14/2019 9:59 AM Date of : 2000 Admit Type: Inpatient Age: 19 Gender: Female Attending MD: Klaudia Meneses M.D. Procedure: Pediatric Upper GI Endoscopy Providers: Klaudia Meneses M.D. (Doctor), Alicia Song RN (Nurse), Windy Harp, Pediatric Ophthalmologist (Pediatric Ophthalmologist), Basilia Clark CRNA (Managed Care Nurse), Anabela Hawley M.D. (Managed Care Nurse), Roma Martinez, Fellow (Fellow) Referring MD: Johnna Tinajero M.D. (Referring MD) Requesting Provider: Nehemiah Zhao M.D. (Requesting Physician) Indications: Abdominal pain, Vomiting Medicines: General Anesthesia with ET Tube Procedure: The risk and benefits of the procedure and the sedation options and risks were discussed with the patient and caregiver(s). All questions were answered and informed consent was obtained. Patient identification and proposed procedure were verified prior to the procedure by the physician, the nurse and the data steward. The time out was done in the room prior to the start of the procedure. After I obtained informed consent, the scope was passed under direct vision. Throughout the procedure, the patient's blood pressure, pulse, and oxygen saturations were monitored continuously by anesthesia. The GIF [id number] #[id number] upper endoscope was introduced through the mouth, and advanced to the second part of duodenum. The upper GI endoscopy was accomplished without difficulty. The patient tolerated the procedure well. Findings: The examined esophagus was normal. Biopsies were taken with a cold forceps for histology. The entire examined stomach was normal. Biopsies were taken with a cold forceps for histology. Obtained sample for MAGALIE test. The examined duodenum was normal. Biopsies were taken with a cold forceps for histology. Impression: - Normal esophagus. Biopsied. - Normal stomach. Biopsied. - Normal examined duodenum. Biopsied. Estimated Blood Loss: Estimated blood loss was minimal. Complications: No immediate complications. Recommendation: - Return patient to [facility] for ongoing care. -Await pathology results. -Follow up visit to be determined at later date. -Hospital staff have a contact number available for emergencies. The signs and symptoms of potential delayed complications were discussed with the patient/caregiver(s). Activities to be determined by primary team. No aspirin, ibuprofen, naproxen, or other non-steroidal anti-inflammatory drugs for 7 days. Procedure code(s): 09/14/2019 9:59:52 AM Attending Participation: I was present and participated during the entire procedure, including non-li portions. Electronically signed by Dr Klaudia Meneses Klaudia Meneses M.D. 09/14/2019 10:53:52 AM By signing this report, I certify that I, the attending physician, personally performed or supervised the procedure reported above and was physically present during the entire procedure. Roma Martinez, Fellow Number of Addenda: 0 Note Initiated On: 09/14/2019 9:59 AM EYOR HYDROGRAPHIC EYOR HYDROGRAPHIC EYOR HYDROGRAPHIC documented in this encounter Nursing Notes * Elpidio Mcintyre RN - 09/20/2019 1:50 PM CST Discharged 09/20/2019 at 1350 in the care of mother, patient ambulated off unit. EYOR HYDROGRAPHIC documented in this encounter ED Notes * Cris Espinoza MD - 09/13/2019 11:51 AM CST HPI Chief Complaint Patient presents with ??? Vomiting HPI Nina is a 19yo F w/history of asthma and ovarian cyst presenting with abdominal pain and emesis of2 months duration. Initially presented with RLQ abdominal pain in 07/2019, found to have right ovarian cyst. Nausea and emesis has been intermittent since that time, but has been increasing since thenew year. Pt had multiple episodes of emesis last night x10, possible hematemasis Patient History Patient Active Problem List Diagnosis Date Noted ??? Abdominal pain 07/20/2019 Priority: High ??? Nausea 08/15/2019 ??? Asthma 07/20/2019 ??? Anxiety 07/20/2019 ??? [...] sinus rhythm with sinus arrhythmia with short CO ??? Anxiety 07/20/2019 ??? Asthma ??? Nausea 08/15/2019 ??? Vomiting multiple times per week Past Surgical History: Procedure Laterality Date ??? WRIST SURGERY Family History Adopted: Yes Family history unknown: Yes Social History Tobacco Use ??? Smoking status: Never Smoker Substance Use Topics ??? Alcohol use: Not on file ??? Drug use: Not on file Social History Patient does not qualify to have social determinant information on file (likely too young). Social History Narrative Adoptive mother : (Added by [facility] Conv) No secondhand smoke exposure : (Added by [facility] Conv) Review of Systems Review of Systems Constitutional: Positive for unexpected weight change. Negative for activity change, appetite change and fatigue. HENT: Negative for congestion, rhinorrhea and sore throat. Eyes: Negative for redness and visual disturbance. Respiratory: Negative for cough, chest tightness and shortness of breath. Cardiovascular: Negative for chest pain and palpitations. Gastrointestinal: Positive for abdominal pain, nausea and vomiting. Negative for constipation and diarrhea. Genitourinary: Negative for dysuria and urgency. Musculoskeletal: Negative for neck pain and neck stiffness. Skin: Negative for color change, pallor and rash. Allergic/Immunologic: Negative for environmental allergies and food allergies. Neurological: Negative for dizziness, weakness and headaches. Hematological: Negative for adenopathy. Psychiatric/Behavioral: Negative for dysphoric mood, sleep disturbance and suicidal ideas. Physical Exam ED Triage Vitals Temp Pulse Resp BP SpO2 09/13/19 1022 09/13/19 1022 09/13/19 1022 09/13/19 1022 09/13/19 1022 36.4 ??C (97.5 ??F) 72 18 (!) 139/88 96 % Temp src Heart Rate Source Patient Position BP Location FiO2 (%) 09/13/19 1022 09/13/19 1524 09/13/19 1524 09/13/19 1524 -- Temporal Monitor Lying Left arm Physical Exam Constitutional: General: She is not in acute distress. Appearance: She is well-developed. HENT: Head: Normocephalic and atraumatic. Eyes: Conjunctiva/sclera: Conjunctivae normal. Pupils: Pupils are equal, round, and reactive to light. Cardiovascular: Rate and Rhythm: Normal rate and regular rhythm. Heart sounds: Normal heart sounds. Pulmonary: Effort: Pulmonary effort is normal. No respiratory distress. Breath sounds: Normal breath sounds. Abdominal: General: Bowel sounds are normal. There is no distension. Palpations: Abdomen is soft. Tenderness: There is no tenderness. Comments: Epigastric tenderness Skin: General: Skin is warm and dry. Capillary Refill: Capillary refill takes less than 2 seconds. Neurological: Mental Status: She is alert and oriented to person, place, and time. MDM MDM Number of Diagnoses or Management Options Nausea and vomiting, intractability of vomiting not specified, unspecified vomiting type: Diagnosis management comments: Differential includes ovarian torsion, GERD, UTI, low suspicion for appendicitis given chronic nature. Due to normal imaging it is more likely GI in nature.Will admit to general pediatrics (GI floor) for possible EGD in AM to elucidate etiology of ongoing nausea and intermittent abdominal pain. ED Course as of Sep 13 2118 Time: 09/13 1208 Comment: 19yo F with history of asthma and anxiety and newly diagnosed R ovarian cyst from July, who presents with nausea, vomiting, RLQ and midepigastric abd pain x2 months. Patient initially presented with abd pain and vomiting in July, diagnosed with cyst. Since then, her symptoms have progressively worsened, vomiting more frequently. No fevers. +URI symptoms x3 days. No dysuria, increased urgency or frequency. No hematuria. Normal bowel movements, nonbloody. +17lb weight loss since July because of decreased appetite. LMP 08/31/19. No family history of IBD, IBS, cancer. On exam, had tenderness in RLQ and epigastric region. Abd soft, nondistended, no rebound or guarding. Differential includes ovarian torsion, GERD, UTI, low suspicion for appendicitis given chronic nature. By: Livier Munoz MD Time: 09/13 1621 Comment: TRANSITION OF CARE: I, Cris Espinoza MD, am taking signout from Akash Isaac (Resident). I have reviewed all pertinent vital signs, allergies, and history available in the chart. Summary: 19 y.o. female h/o EMERALD, and new ovarian cyst presenting n/v last two months, increasing infrequency, x10 episodes emesis with possible hematemesis on 09/12/19. Initial eval in July 2019 with normal CTa nd ultrasound which were WNL. Today has Mid-epigastric tenderness, RLQ tenderness onexam. UA WNL. HcG negative. Pending: ultrasound pelvic Dispo: pending imaging By: Cris Espinoza MD Time: 09/13 1637 Comment: Change of shift - signout from Dr. Montoya. 19y F hx R ovarian cyst dx 2019 here with abdominal pain since 07/2019. Intermittent emesis, daily. 10x yesterday. Do not think this is related to pelvic pathology. Plan to admit to GI for possible endoscopy. By: Rosette Camara MD Abdominal pain, unspecified abdominal location Nausea Nausea and vomiting, intractability of vomiting not specified, unspecified vomiting type Cris Espinoza MD 09/13/192124 Cosigned by Rosette Camara MD at 09/14/2019 11:29 PM SURVEYOR HYDROGRAPHIC EYOR HYDROGRAPHIC EYOR HYDROGRAPHIC Associated attestation - Rosette Camara MD - 09/14/2019 11:29 PM SURVEYOR HYDROGRAPHIC I have supervised the care of the patient on 09/13/[address] Montoya. I agree with the findings and plan of care as documented in the resident's note. * Any Zuniga, GLENDA - 09/13/2019 11:19 AM CST Bed: ED1-22 Expected date: 09/13/19 Expected time: 8:25 AM Means of arrival: Car Comments: Any Zuniga RN 09/13/19 1119 EYOR HYDROGRAPHIC * Jennifer Lorenzo RN - 09/13/2019 10:20 AM CST Vomiting since last night, about 12x. Last episode just now in triage. Patient with ongoing nausea x2 months. EYOR HYDROGRAPHIC documented in this encounter Miscellaneous Notes * Medical Student - Jaswant Pastrana - 09/20/2019 11:52 AM CST Pediatric Daily Progress Note ?? Nina Coyne is a 19 y/o w/ hx of moderate persistent asthma, ovarian cyst, and anxiety disorder who p/w chronic nausea since July with increasing frequency of emesis and abdominal discomfort. ?? Subjective:?? KUB yesterday showed contrast remaining in GI tract, will defer gastric emptying study to outpatient. Patient did not vomit yesterday and was able to keep food and liquids down. She is still nauseousbut is otherwise asymptomatic. She is tolerating nortriptyline up-titration and lexapro discontinuation well with no symptoms. ?? Objective: Vitals: Temp -??36.4??- 37 HR -??72-86 BP -??102-126/58-75 RR -??16-20 O2 Sat -??98%-100% ?? In:??2934??mL (PO 762, IV??2172) Out:??1480??mL (0.62 mL/kg/hr) Weight:??99.4kg ? Physical Exam: General -??NAD, appears well and is??resting comfortably ?? HEENT -??NC/AT. No LAD. Oropharynx clear, pink, moist. PERLLA, EOMI.? Cardiac -??RRR, normal S1/S2, no m/r/g ?? Respiratory -??CTAB, no w/r/r, moving air adequately ?? Abdominal -??soft,??non-distend and non-tender to palpation,??no rebound tenderness, no HSM/masses palpated, NABS. ?? Extremities -??warm and well perfused in all extremities, pulses 2+ ?? Skin -??no rashes, jaundice, lesions, or bruises. ?? Neurological -??A&Ox3, moving all extremities spontaneously, CN II-XII grossly intact.? Labs/Imaging:?? No new labs or imaging. ?? Medications: Scheduled -?? Esitalopram??10??mg PO every day Fluticasone Furoate-Vilanterol 100-25 mcg/dose diskus inhalor 1 puff daily Norgestimate-ethinyl estradiol 0.18/0.215/0.25 mg -25mcg 1 tablet PO daily Lansoprazole 15mg BID PO Nortriptyline 10mg BID ?? PRN -?? Albuterol 1.25 mg/3mL nebulizer Q4 PRN Assessment and Plan: Nina Coyne is a 19 y/o w/ hx of moderate persistent asthma, ovarian cyst, and anxiety disorder who p/w chronic nausea since July with increasing frequency of emesis and abdominal discomfort. ? #Acute on chronic nausea and vomitting??w/ abdominal discomfort. Patient has not vomited in 24+ hours and is tolerating PO intake. From GI perspective she can follow-up outpatient. Given reassuring exam, ability to maintain adequate PO intake, and no pending GI assessments, she can be discharged. Most likely diagnosis is functional??nausea. Functional nausea is a diagnosis of exclusion and extensive workup has thus far been negative??(including normal MRI, EGD, UGI series, CT abdomen/pevlis, multiple ultrasounds).??It it possible that patient is starting to develop aversion to eating as a result of negative experiences (e.g. repeat vomiting). This aversion worsens her nausea and creates more anxiety, putting her in a cycle that has resulted in her clinical picture. - GI follow-up in 2-3 weeks -??Gastric emptying study??outpatient if needed -??Continue??nortriptyline 10mg BID - Consider psychiatry visit/CBT outpatient to help with chronic nausea if diagnosis is functional - D/c zofran on 09/19 - Tylenol prn for pain, avoid NSAIDS -??Lexapro d/c on 09/19 - Restart home omeprazole on discharge ?? #Anxiety and Depression Lexapro d/c'd. Now taking nortriptyline 10mg BID. ?? #Asthma Albuterol 1.25 mg/3mL nebulizer PRN,??Continue??home breo-ellipta??100-25 mcg/dose diskus inhalor 1puff daily ?? #OCP Continue home norgestimate-ethinyl estradiol 0.18/0.215/0.25 mg -25mcg 1 tablet PO daily ?? Code: Full Code Diet:??Regular diet ?? Jaswant Pastrana, Selin Cosigned by Lili Villalpando MD at 09/22/2019 2:06 PM SURVEYOR HYDROGRAPHIC EYOR HYDROGRAPHIC EYOR HYDROGRAPHIC * Plan of Care - Yo, Carolina Horton RN - 09/20/2019 4:20 AM CST Problem: Lack of Knowledge: Goal: Ability to make informed decisions regarding treatment will improve Outcome: Progressing Problem: Coping: Goal: Ability to cope will improve Outcome: Progressing Problem: Health Behavior: Goal: Identification of resources available to assist in meeting health care needs will improve Outcome: Progressing Problem: Medication: Goal: Compliance with prescribed medication regimen will improve Outcome: Progressing Problem: Safety: Goal: Ability to remain free from injury will improve Outcome: Progressing Goal: Verbalizations of safety and security will increase Outcome: Progressing Problem: Self-Concept: Goal: Ability to disclose and discuss suicidal ideas will improve Outcome: Progressing Goal: Ability to verbalize positive feelings about self will improve Outcome: Progressing Problem: Activity: Goal: Ability to follow a routine sleep schedule will improve Outcome: Progressing Problem: Bowel/Gastric: Goal: Ability to maintain baseline age appropriate bowel function will improve Outcome: Progressing Problem: Lack of Knowledge: Goal: Knowledge of disease or condition will improve Outcome: Progressing Problem: Coping: Goal: Expression of the ability to provide proper assistance and support to the patient will improve Outcome: Progressing Problem: Fluid Volume: Goal: Ability to maintain a balanced intake and output will improve Outcome: Progressing Problem: Health Behavior: Goal: Understanding of discharge needs will improve Outcome: Progressing Goals: Clinical Goals for the Shift: Pt will tolerate PO intake without N/V throughout the night Summary: Patient had limited PO intake throughout the night EYOR HYDROGRAPHIC * Plan of Care - Nhi Ramirez RN - 09/19/2019 4:45 PM CST Goals: Clinical Goals for the Shift: increase PO intake and remain free of N/V Summary: pt has remained free of emesis Problem: Lack of Knowledge: Goal: Ability to make informed decisions regarding treatment will improve Outcome: Progressing Problem: Coping: Goal: Ability to cope will improve Outcome: Progressing Problem: Health Behavior: Goal: Identification of resources available to assist in meeting health care needs will improve Outcome: Progressing Problem: Medication: Goal: Compliance with prescribed medication regimen will improve Outcome: Progressing Problem: Safety: Goal: Ability to remain free from injury will improve Outcome: Progressing Goal: Verbalizations of safety and security will increase Outcome: Progressing Problem: Self-Concept: Goal: Ability to disclose and discuss suicidal ideas will improve Outcome: Progressing Goal: Ability to verbalize positive feelings about self will improve Outcome: Progressing Problem: Activity: Goal: Ability to follow a routine sleep schedule will improve Outcome: Progressing Problem: Bowel/Gastric: Goal: Ability to maintain baseline age appropriate bowel function will improve Outcome: Progressing Problem: Lack of Knowledge: Goal: Knowledge of disease or condition will improve Outcome: Progressing Problem: Coping: Goal: Expression of the ability to provide proper assistance and support to the patient will improve Outcome: Progressing Problem: Fluid Volume: Goal: Ability to maintain a balanced intake and output will improve Outcome: Progressing Problem: Health Behavior: Goal: Understanding of discharge needs will improve Outcome: Progressing EYOR HYDROGRAPHIC * Assessment & Plan Note - Viktor Villagomez MD - 09/19/2019 10:54 AM CSTAssociated Problem(s): Chronic nausea 2 month history of worsening nausea with numerous episodes of NB/NB emesis in the past day. Has hadsignificant workup including labs, CT, and US which [...] - KUB to evaluate passage of contrast EYOR HYDROGRAPHIC EYOR HYDROGRAPHIC EYOR HYDROGRAPHIC * Assessment & Plan Note - Viktor Villagomez MD - 09/19/2019 10:53 AM CSTAssociated Problem(s): Mild malnutrition (HCC) (Resolved 08/22/2020) 15 pound weight loss over several months due to chronic nausea and vomiting with resultant poor appetite. - Manage nausea symptoms - nutrition consult EYOR HYDROGRAPHIC * Assessment & Plan Note - Viktor Villagomez MD - 09/19/2019 10:53 AM CSTAssociated Problem(s): Abdominal pain Right lower quadrant abdominal pain began in [...] for pain, avoid NSAIDS - Continue OCP EYOR HYDROGRAPHIC EYOR HYDROGRAPHIC * Subjective & Objective - Viktor Villagomez MD - 09/19/2019 10:52 AM CST Pediatric Daily Progress Subjective Chief complaint of nausea, vomiting. Interval History: NAEON. Had a better day yesterday. Vomited x1 in past 24 hours, NB/NB gastric contents. Still has nausea but doing better holding po. She does not have any abdominal pain this morning. Appetite poor, minimal po. No fever, diarrhea, new complaints. Objective Vitals: Vitals 24 hour ranges: Temp: [36.4 ??C (97.5 ??F)-36.9 ??C (98.4 ??F)] Pulse: [74-96] Resp: [16-24] BP: (101-122)/(51-85) I/O last 2 completed shifts: In: 3017 [P.O.:502; I.V.:2515] Out: 1650 [Urine:1650] I/O this shift: In: 498 [P.O.:100; I.V.:398] Out: 400 [Urine:400] Physical Exam: General Appearance: Alert, cooperative, no distress, appears stated age, well developed, well nourished, obese Head: Normocephalic, without obvious abnormality, atraumatic Eyes: PERRL, conjunctiva/corneas clear, EOM's intact, fundi benign, both eyes, anicteric Ears: Normal TM's and external ear canals, both ears Nose: Nares normal, septum midline, mucosa normal, no drainage or sinus tenderness Throat: Lips, mucosa, and tongue normal; teeth and gums normal, mucous membranes moist Neck: Supple, symmetrical, trachea midline, no adenopathy; thyroid: No enlargement/tenderness/nodules; no carotid bruit or JVD Back: Symmetric, no curvature, ROM normal, no CVA tenderness Lungs: Clear to auscultation bilaterally, respirations unlabored ? Cardiovascular: Regular rate and rhythm, S1 and S2 normal, no murmur, rub or gallop, no edema, pulses 2+ and symmetric to all extremeties Abdomen: Soft, no tenderness to palpation, bowel sounds active all four quadrants, no masses, no organomegaly, non-distended ? Rectal: Normal tone, no masses or tenderness; Extremities: Extremities normal, atraumatic, no cyanosis or edema, no clubbing Skin: Skin color, texture, turgor normal, no rashes, lesions or bruising Lymph nodes: Cervical, supraclavicular, and axillary nodes normal Neurologic: Alert & oriented x 4, CNII-XII intact. Normal strength, sensation and reflexes throughout Psychosocial: Normal affect and mood ?? Lab/Radiology/Diagnostic Review: Laboratory review: Lab results in the last 24 hours: No results found for this or any previous visit (from the past 24 hour(s)). Imaging: Upper GI series 09/15/19 - normal MRI Brain w, w/o contrast 09/15/19 - Normal MRI of the brain. EYOR HYDROGRAPHIC * Plan of Care - Bibiana Hernandez RN - 09/19/2019 5:30 AM CST Goals: Problem: Lack of Knowledge: Goal: Ability to make informed decisions regarding treatment will improve Outcome: Progressing Problem: Coping: Goal: Ability to cope will improve Outcome: Progressing Problem: Health Behavior: Goal: Identification of resources available to assist in meeting health care needs will improve Outcome: Progressing Problem: Medication: Goal: Compliance with prescribed medication regimen will improve Outcome: Progressing Problem: Safety: Goal: Ability to remain free from injury will improve Outcome: Progressing Goal: Verbalizations of safety and security will increase Outcome: Progressing Problem: Self-Concept: Goal: Ability to disclose and discuss suicidal ideas will improve Outcome: Progressing Goal: Ability to verbalize positive feelings about self will improve Outcome: Progressing Problem: Activity: Goal: Ability to follow a routine sleep schedule will improve Outcome: Progressing Problem: Bowel/Gastric: Goal: Ability to maintain baseline age appropriate bowel function will improve Outcome: Progressing Problem: Lack of Knowledge: Goal: Knowledge of disease or condition will improve Outcome: Progressing Problem: Coping: Goal: Expression of the ability to provide proper assistance and support to the patient will improve Outcome: Progressing Problem: Fluid Volume: Goal: Ability to maintain a balanced intake and output will improve Outcome: Progressing Problem: Health Behavior: Goal: Understanding of discharge needs will improve Outcome: Progressing Summary: Patient had no emesis after dinner. Still poor fluid PO, on mIVF EYOR HYDROGRAPHIC * Plan of Care - Nina Saleh RN - 09/18/2019 5:03 PM CST Problem: Coping: Goal: Ability to cope will improve Outcome: Progressing Problem: Health Behavior: Goal: Identification of resources available to assist in meeting health care needs will improve Outcome: Progressing Problem: Coping: Goal: Expression of the ability to provide proper assistance and support to the patient will improve Outcome: Progressing Problem: Fluid Volume: Goal: Ability to maintain a balanced intake and output will improve Outcome: Progressing Goals: Clinical Goals for the Shift: improved PO intake and nausea Summary: All goals for this shift met: pt has had improved PO intake and improved nausea. EYOR HYDROGRAPHIC * Assessment & Plan Note - Sol Tapia MD - 09/18/2019 12:24 PM SURVEYOR HYDROGRAPHIC Associated Problem(s): Mild malnutrition (HCC) (Resolved 08/22/2020) 15 pound weight loss over several months due to chronic nausea and vomiting with resultant poor appetite. - Manage nausea symptoms - nutrition consult EYOR HYDROGRAPHIC * Assessment & Plan Note - Sol Tapia MD - 09/18/2019 12:17 PM SURVEYOR HYDROGRAPHIC Associated Problem(s): Chronic nausea 2 month history of worsening nausea with numerous episodes of NB/NB emesis in the past day. Has hadsignificant workup including labs, CT, and US which [...] if contrast cleared, gastric emptying if clear. EYOR HYDROGRAPHIC * Assessment & Plan Note - Sol Tapia MD - 09/18/2019 12:17 PM SURVEYOR HYDROGRAPHIC Associated Problem(s): Abdominal pain Right lower quadrant abdominal pain began in [...] for pain, avoid NSAIDS - Continue OCP EYOR HYDROGRAPHIC * Subjective & Objective - Sol Tapia MD - 09/18/2019 12:15 PM SURVEYOR HYDROGRAPHIC Pediatric Daily Progress Subjective Chief complaint of nausea, vomiting. Interval History: NAEON. Had a better day yesterday. Was able to keep breakfast down. Vomited x3 inpast 24 hours, NB/NB gastric contents. She does not have any abdominal pain this morning. Appetite poor, minimal po. No fever, diarrhea, new complaints. Objective Vitals: Vitals 24 hour ranges: Temp: [36.3 ??C (97.3 ??F)-36.8 ??C (98.2 ??F)] Pulse: [74-84] Resp: [18-20] BP: (111-125)/(72-85) I/O last 2 completed shifts: In: 2609 [P.O.:280; I.V.:2329] Out: 1950 [Urine:1950] I/O this shift: In: 646 [P.O.:100; I.V.:546] Out: 500 [Urine:500] Physical Exam: General Appearance: Alert, cooperative, no distress, appears stated age, well developed, well nourished, obese Head: Normocephalic, without obvious abnormality, atraumatic Eyes: PERRL, conjunctiva/corneas clear, EOM's intact, fundi benign, both eyes, anicteric Ears: Normal TM's and external ear canals, both ears Nose: Nares normal, septum midline, mucosa normal, no drainage or sinus tenderness Throat: Lips, mucosa, and tongue normal; teeth and gums normal, mucous membranes moist Neck: Supple, symmetrical, trachea midline, no adenopathy; thyroid: No enlargement/tenderness/nodules; no carotid bruit or JVD Back: Symmetric, no curvature, ROM normal, no CVA tenderness Lungs: Clear to auscultation bilaterally, respirations unlabored ? Cardiovascular: Regular rate and rhythm, S1 and S2 normal, no murmur, rub or gallop, no edema, pulses 2+ and symmetric to all extremeties Abdomen: Soft, no tenderness to palpation, bowel sounds active all four quadrants, no masses, no organomegaly, non-distended ? Rectal: Normal tone, no masses or tenderness; Extremities: Extremities normal, atraumatic, no cyanosis or edema, no clubbing Skin: Skin color, texture, turgor normal, no rashes, lesions or bruising Lymph nodes: Cervical, supraclavicular, and axillary nodes normal Neurologic: Alert & oriented x 4, CNII-XII intact. Normal strength, sensation and reflexes throughout Psychosocial: Normal affect and mood ?? Lab/Radiology/Diagnostic Review: Laboratory review: Lab results in the last 24 hours: No results found for this or any previous visit (from the past 24 hour(s)). Imaging: Upper GI series 09/15/19 - normal MRI Brain w, w/o contrast 09/15/19 - Normal MRI of the brain. EYOR HYDROGRAPHIC * Medical Student - Jaswant Pastrana - 09/18/2019 10:58 AM CST Pediatric Daily Progress Note ?? Nina Coyne is a 19 y/o w/ hx of moderate persistent asthma, ovarian cyst, and anxiety disorder who p/w chronic nausea since July with increasing frequency of emesis and abdominal discomfort. ?? Subjective:?? Patient was able to eat a waffle for breakfast yesterday and keep it down until she vomited after lunch. Overall patient vomited 3x with feeds (NB/NB), but latency to vomit after eating has been increased. Additionally, patient reports that her abdominal pain has resolved. Aside from continued nausea, patient is asymptomatic. Objective: Vitals: Temp -??36.3??- 36.8 HR -??74-84 BP -??111-125/72-85 RR -??18-20 O2 Sat -??98%-100% ?? In:??2609 mL (PO 280, IV 2329) Out:??1950 mL (0.82 mL/kg/hr) Weight:??99.4kg ? Physical Exam: General -??NAD, appears well and is??resting comfortably ?? HEENT -??NC/AT. No LAD. Oropharynx clear, pink, moist. PERLLA, EOMI.? Cardiac -??RRR, normal S1/S2, no m/r/g ?? Respiratory -??CTAB, no w/r/r, moving air adequately ?? Abdominal -??soft,??non-distend and non-tender to palpation (improved from yesterday),??no rebound tenderness, no HSM/masses palpated, NABS. ?? Extremities -??warm and well perfused in all extremities, pulses 2+ ?? Skin -??no rashes, jaundice, lesions, or bruises. ?? Neurological -??A&Ox3, moving all extremities spontaneously, CN II-XII grossly intact.? Labs/Imaging:?? No new labs or imaging. ?? Medications: Scheduled -?? Esitalopram??10??mg PO every day Fluticasone Furoate-Vilanterol 100-25 mcg/dose diskus inhalor 1 puff daily Norgestimate-ethinyl estradiol 0.18/0.215/0.25 mg -25mcg 1 tablet PO daily Lansoprazole 15mg BID PO Nortriptyline 10mg nightly ?? PRN -?? Albuterol 1.25 mg/3mL nebulizer Q4 PRN Ondansetron ODT 4mg tablet Q6 PRN ? Assessment and Plan: Nina Coyne is a 19 y/o w/ hx of moderate persistent asthma, ovarian cyst, and anxiety disorder who p/w chronic nausea since July with increasing frequency of emesis and abdominal discomfort. ? #Acute on chronic nausea and vomitting??w/ abdominal discomfort. Patient is starting to tolerate PO diet better and abdominal pain/tenderness has resolved today. Itis unlikely that our interventions have taken effect yet and patient improvement w/ likely placebo supports functional cause. Most likely diagnosis is functional??nausea. Functional nausea is a diagnosis of exclusion and extensive workup has thus far been negative??(including normal MRI, EGD, UGI series, CT abdomen/pevlis, multiple ultrasounds).??It it possible that patient is starting to developaversion to eating as a result of negative experiences (e.g. repeat vomiting). This aversion worsens her nausea and creates more anxiety, putting her in a cycle that has resulted in her clinical picture. Our goals now are to clear her from a GI assessment standpoint and make sure she can maintain adequeate PO fluid and nutrition intake on discharge. - Encourage more PO intake of fluids in preparation for wean off IV - Gastric emptying study??on 09/19 if she has no contrast on KUB (from prior UGI). - Continue nortriptyline as anti-spasmodic - Pysch consult before discharge to see if they have any recommendations for nausea management - Consider CBT and alternative anti-emetics and anti-spasmodic if GI workup is negative to treat functional nausea. - Maintenance fluids w/ D5 NS + 20meq potassium.??No current signs of dehydration. - Zofran 4mg scheduled q6. - Regular diet as tolerated - Tylenol prn for pain, avoid NSAIDS - Lexapro taper to rule out medication cause of symptoms - per conversation with PCP can finish taper on Thursday if she is still admitted. - Continue lansoprazole 15mg BID - f/u with surgical pathology about result of chronic inactive gastritis. ?? #Anxiety and Depression Rapid taper of lexapro to rule out medication cause of symptoms - will??continue at 10 mg and d/c on Thursday. ?? #Asthma Albuterol 1.25 mg/3mL nebulizer PRN,??Continue??home breo-ellipta??100-25 mcg/dose diskus inhalor 1puff daily ?? #OCP Continue home norgestimate-ethinyl estradiol 0.18/0.215/0.25 mg -25mcg 1 tablet PO daily ?? Code: Full Code Diet:??Regular diet ?? Jaswant Pastrana, Selin Cosigned by Nehal Salgado MD at 09/18/2019 11:14 AM SURVEYOR HYDROGRAPHIC EYOR HYDROGRAPHIC EYOR HYDROGRAPHIC * Plan of Care - Bibiana Hernandez RN - 09/18/2019 5:39 AM CST Goals: Problem: Lack of Knowledge: Goal: Ability to make informed decisions regarding treatment will improve Outcome: Progressing Problem: Coping: Goal: Ability to cope will improve Outcome: Progressing Problem: Health Behavior: Goal: Identification of resources available to assist in meeting health care needs will improve Outcome: Progressing Problem: Medication: Goal: Compliance with prescribed medication regimen will improve Outcome: Progressing Problem: Safety: Goal: Ability to remain free from injury will improve Outcome: Progressing Goal: Verbalizations of safety and security will increase Outcome: Progressing Problem: Self-Concept: Goal: Ability to disclose and discuss suicidal ideas will improve Outcome: Progressing Goal: Ability to verbalize positive feelings about self will improve Outcome: Progressing Problem: Activity: Goal: Ability to follow a routine sleep schedule will improve Outcome: Progressing Problem: Bowel/Gastric: Goal: Ability to maintain baseline age appropriate bowel function will improve Outcome: Progressing Problem: Lack of Knowledge: Goal: Knowledge of disease or condition will improve Outcome: Progressing Problem: Coping: Goal: Expression of the ability to provide proper assistance and support to the patient will improve Outcome: Progressing Problem: Fluid Volume: Goal: Ability to maintain a balanced intake and output will improve Outcome: Progressing Problem: Health Behavior: Goal: Understanding of discharge needs will improve Outcome: Progressing Summary: Patient had an episode of emesis after eating. Poor PO EYOR HYDROGRAPHIC * Plan of Care - Nina Saleh RN - 09/17/2019 5:49 PM CST Problem: Coping: Goal: Ability to cope will improve Outcome: Progressing Problem: Bowel/Gastric: Goal: Ability to maintain baseline age appropriate bowel function will improve Outcome: Progressing Problem: Fluid Volume: Goal: Ability to maintain a balanced intake and output will improve Outcome: Progressing Problem: Health Behavior: Goal: Understanding of discharge needs will improve Outcome: Progressing Goals: Clinical Goals for the Shift: monitor I/Os and nausea Summary: Nausea and intake mildly improved. EYOR HYDROGRAPHIC * Assessment & Plan Note - Viktor Villagomez MD - 09/17/2019 3:13 PM CSTAssociated Problem(s): Chronic nausea 2 month history of worsening nausea with numerous episodes of NB/NB emesis in the past day. Has hadsignificant workup including labs, CT, and US which [...] nausea - Gastric emptying study next week EYOR HYDROGRAPHIC * Assessment & Plan Note - Viktor Villagomez MD - 09/17/2019 3:13 PM CSTAssociated Problem(s): Mild malnutrition (HCC) (Resolved 08/22/2020) 15 pound weight loss over several months due to chronic nausea and vomiting with resultant poor appetite. - Manage nausea symptoms - nutrition consult - Consider cyproheptadine EYOR HYDROGRAPHIC * Assessment & Plan Note - Viktor Villagomez MD - 09/17/2019 3:12 PM CSTAssociated Problem(s): Abdominal pain Right lower quadrant abdominal pain began in [...] for pain, avoid NSAIDS - Continue OCP EYOR HYDROGRAPHIC * Subjective & Objective - Dahlia, Viktor Keenan MD - 09/17/2019 3:11 PM CST Pediatric Daily Progress Subjective Chief complaint of nausea, vomiting. Interval History: NAEON. Vomited x4 in past 24 hours, NB/NB gastric contents. Required zofran x1. Appetite poor, minimal po. No fever, diarrhea, new complaints. Objective Vitals: Vitals 24 hour ranges: Temp: [36.3 ??C (97.3 ??F)-36.6 ??C (97.9 ??F)] Pulse: [70-88] Resp: [18-20] BP: (117-125)/(74-89) I/O last 2 completed shifts: In: 2868 [P.O.:130; I.V.:2738] Out: 1750 [Urine:1750] I/O this shift: In: 861 [P.O.:120; I.V.:741] Out: 750 [Urine:750] Physical Exam: General Appearance: Alert, cooperative, no distress, appears stated age, well developed, well nourished, obese Head: Normocephalic, without obvious abnormality, atraumatic Eyes: PERRL, conjunctiva/corneas clear, EOM's intact, fundi benign, both eyes, anicteric Ears: Normal TM's and external ear canals, both ears Nose: Nares normal, septum midline, mucosa normal, no drainage or sinus tenderness Throat: Lips, mucosa, and tongue normal; teeth and gums normal, mucous membranes moist Neck: Supple, symmetrical, trachea midline, no adenopathy; thyroid: No enlargement/tenderness/nodules; no carotid bruit or JVD Back: Symmetric, no curvature, ROM normal, no CVA tenderness Lungs: Clear to auscultation bilaterally, respirations unlabored ? Cardiovascular: Regular rate and rhythm, S1 and S2 normal, no murmur, rub or gallop, no edema, pulses 2+ and symmetric to all extremeties Abdomen: Soft,mild mid abdominal tenderness to palpation, bowel sounds active all four quadrants, no masses, no organomegaly, non-distended ? Rectal: Normal tone, no masses or tenderness; Extremities: Extremities normal, atraumatic, no cyanosis or edema, no clubbing Skin: Skin color, texture, turgor normal, no rashes, lesions or bruising Lymph nodes: Cervical, supraclavicular, and axillary nodes normal Neurologic: Alert & oriented x 4, CNII-XII intact. Normal strength, sensation and reflexes throughout Psychosocial: Normal affect and mood ?? Lab/Radiology/Diagnostic Review: Laboratory review: Lab results in the last 24 hours: No results found for this or any previous visit (from the past 24 hour(s)). Imaging: Upper GI series 09/15/19 - normal MRI Brain w, w/o contrast 09/15/19 - Normal MRI of the brain. EYOR HYDROGRAPHIC * Medical Student - Jaswant Pastrana - 09/17/2019 10:47 AM CST Pediatric Daily Progress Note ?? Nina Coyne is a 19 y/o w/ hx of moderate persistent asthma, ovarian cyst, and anxiety disorder who p/w chronic nausea since July with increasing frequency of emesis and abdominal discomfort. ?? Subjective:?? Patient is still not able to keep food down. She had some improvement yesterday and was able to slowly eat a bagel, but threw up 1.5 hours later. She does not have the same response with liquids and has been able to keep down some fluids. Patient continues to feel nauseous but is otherwise asymptomatic. She had her first does of nortriptyline yesterday night and is tolerating it well so far. ?? Objective: Vitals: Temp -??36.3 - 36.6 HR -??64-88 BP -??121-124/74-89 RR -??16-20 O2 Sat -??98%-99% ?? In:??2868 mL (PO 130, IV 2738) Out:??1750 mL Weight:??99.4kg ? Physical Exam: General -??NAD, appears well and is resting comfortably ?? HEENT -??NC/AT. No LAD. Oropharynx clear, pink, moist. PERLLA, EOMI.? Cardiac -??RRR, normal S1/S2, no m/r/g ?? Respiratory -??CTAB, no w/r/r, moving air adequately ?? Abdominal -??soft,??non-distend with mild tenderness on deep palpation above epigastric region,??norebound tenderness, no HSM/masses palpated, NABS. ?? Extremities -??warm and well perfused in all extremities, pulses 2+ ?? Skin -??no rashes, jaundice, lesions, or bruises. ?? Neurological -??A&Ox3, moving all extremities spontaneously, CN II-XII grossly intact.? Labs/Imaging:?? Surgical pathology from EGD - chronic inactive gastritis in antrum of stomach, small intestine and esophagus wnl. ?? Medications: Scheduled -?? Esitalopram 10 mg PO every day Fluticasone Furoate-Vilanterol 100-25 mcg/dose diskus inhalor 1 puff daily Norgestimate-ethinyl estradiol 0.18/0.215/0.25 mg -25mcg 1 tablet PO daily Lansoprazole 15mg BID PO Nortriptyline 10mg nightly ?? PRN -?? Albuterol 1.25 mg/3mL nebulizer Q4 PRN Ondansetron ODT 4mg tablet Q6 PRN ? Assessment and Plan: Nina Coyne is a 19 y/o w/ hx of moderate persistent asthma, ovarian cyst, and anxiety disorder who p/w chronic nausea since July with increasing frequency of emesis and abdominal discomfort. ? #Acute on chronic nausea and vomitting w/ abdominal discomfort. Most likely diagnosis is functional??nausea. Functional nausea is a diagnosis of exclusion and extensive workup has thus far been negative (including normal MRI, EGD, UGI series, CT abdomen/pevlis, multiple ultrasounds).??It it possible that patient is starting to develop aversion to eating as a result of negative experiences (e.g. repeat vomiting). This aversion worsens her nausea and creates more anxiety, putting her in a cycle that has resulted in her clinical picture. Our goals now are to clear her from a GI assessment standpoint and make sure she can maintain adequeate PO fluid and nutrition intake on discharge. - Gastric emptying study on 09/19 if she has no contrast on KUB (from prior UGI). - Continue nortriptyline as anti-spasmodic - Pysch consult before discharge to see if they have any recommendations for nausea management - Consider CBT and alternative anti-emetics and anti-spasmodic if GI workup is negative to treat functional nausea. - Maintenance fluids w/ D5 NS + 20meq potassium.??No current signs of dehydration. - Zofran 4mg scheduled q6. - Regular diet as tolerated - Tylenol prn for pain, avoid NSAIDS - Lexapro taper to rule out medication cause of symptoms - per conversation with PCP can finish taper on Thursday if she is still admitted. - Continue lansoprazole 15mg BID - f/u with surgical pathology about result of chronic inactive gastritis. ?? #Anxiety and Depression Rapid taper of lexapro to rule out medication cause of symptoms - will continue at 10 mg and d/c onThursday if still inpatient. ?? #Asthma Albuterol 1.25 mg/3mL nebulizer PRN,??Continue??home breo-ellipta??100-25 mcg/dose diskus inhalor 1puff daily ?? #OCP Continue home norgestimate-ethinyl estradiol 0.18/0.215/0.25 mg -25mcg 1 tablet PO daily ?? Code: Full Code Diet:??Regular diet ?? Jaswant Pastrana, Selin Cosigned by Nehal Salgado MD at 09/17/2019 11:49 AM SURVEYOR HYDROGRAPHIC EYOR HYDROGRAPHIC EYOR HYDROGRAPHIC * Plan of Care - Tila Harmon RN - 09/16/2019 9:05 PM CST Goals: Problem: Lack of Knowledge: Goal: Ability to make informed decisions regarding treatment will improve Outcome: Progressing Problem: Coping: Goal: Ability to cope will improve Outcome: Progressing Problem: Health Behavior: Goal: Identification of resources available to assist in meeting health care needs will improve Outcome: Progressing Problem: Medication: Goal: Compliance with prescribed medication regimen will improve Outcome: Progressing Problem: Safety: Goal: Ability to remain free from injury will improve Outcome: Progressing Goal: Verbalizations of safety and security will increase Outcome: Progressing Problem: Self-Concept: Goal: Ability to disclose and discuss suicidal ideas will improve Outcome: Progressing Goal: Ability to verbalize positive feelings about self will improve Outcome: Progressing Problem: Activity: Goal: Ability to follow a routine sleep schedule will improve Outcome: Progressing Problem: Bowel/Gastric: Goal: Ability to maintain baseline age appropriate bowel function will improve Outcome: Progressing Problem: Lack of Knowledge: Goal: Knowledge of disease or condition will improve Outcome: Progressing Problem: Coping: Goal: Expression of the ability to provide proper assistance and support to the patient will improve Outcome: Progressing Problem: Fluid Volume: Goal: Ability to maintain a balanced intake and output will improve Outcome: Progressing Problem: Health Behavior: Goal: Understanding of discharge needs will improve Outcome: Progressing Summary: EYOR HYDROGRAPHIC * Plan of Care - Nina Saleh RN - 09/16/2019 6:45 PM CST Problem: Lack of Knowledge: Goal: Ability to make informed decisions regarding treatment will improve Outcome: Progressing Problem: Coping: Goal: Ability to cope will improve Outcome: Progressing Problem: Health Behavior: Goal: Identification of resources available to assist in meeting health care needs will improve Outcome: Progressing Goals: Clinical Goals for the Shift: nausea management, EYOR HYDROGRAPHIC * Assessment & Plan Note - Viktor Villagomez MD - 09/16/2019 11:43 AM CSTAssociated Problem(s): Chronic nausea 2 month history of worsening nausea with numerous episodes of NB/NB emesis in the past day. Has hadsignificant workup including labs, CT, and US which [...] nausea - Gastric emptying study next week EYOR HYDROGRAPHIC EYOR HYDROGRAPHIC * Assessment & Plan Note - Viktor Villagomez MD - 09/16/2019 11:42 AM CSTAssociated Problem(s): Mild malnutrition (HCC) (Resolved 08/22/2020) 15 pound weight loss over several months due to chronic nausea and vomiting with resultant poor appetite. - Manage nausea symptoms - nutrition consult - Consider cyproheptadine EYOR HYDROGRAPHIC * Assessment & Plan Note - Viktor Villagomez MD - 09/16/2019 11:40 AM CSTAssociated Problem(s): Abdominal pain Right lower quadrant abdominal pain began in [...] for pain, avoid NSAIDS - Continue OCP EYOR HYDROGRAPHIC * Subjective & Objective - Viktor Villagomez MD - 09/16/2019 11:21 AM CST Pediatric Daily Progress Subjective Chief complaint of nausea, vomiting. Interval History: NAEON. Vomited x2 overnight, NB/NB gastric contents. Required zofran x1. Appetitepoor. No fever, diarrhea, new complaints. Objective Vitals: Vitals 24 hour ranges: Temp: [36.3 ??C (97.3 ??F)-36.9 ??C (98.4 ??F)] Pulse: [65-78] Resp: [16-21] BP: (108-130)/(74-88) I/O last 2 completed shifts: In: 3592.1 [P.O.:412; I.V.:3180.1] Out: 2450 [Urine:2450] I/O this shift: In: 255 [I.V.:255] Out: 400 [Urine:400] Physical Exam: General Appearance: Alert, cooperative, no distress, appears stated age, well developed, well nourished, obese Head: Normocephalic, without obvious abnormality, atraumatic Eyes: PERRL, conjunctiva/corneas clear, EOM's intact, fundi benign, both eyes, anicteric Ears: Normal TM's and external ear canals, both ears Nose: Nares normal, septum midline, mucosa normal, no drainage or sinus tenderness Throat: Lips, mucosa, and tongue normal; teeth and gums normal, mucous membranes moist Neck: Supple, symmetrical, trachea midline, no adenopathy; thyroid: No enlargement/tenderness/nodules; no carotid bruit or JVD Back: Symmetric, no curvature, ROM normal, no CVA tenderness Lungs: Clear to auscultation bilaterally, respirations unlabored ? Cardiovascular: Regular rate and rhythm, S1 and S2 normal, no murmur, rub or gallop, no edema, pulses 2+ and symmetric to all extremeties Abdomen: Soft,mild mid abdominal tenderness to palpation, bowel sounds active all four quadrants, no masses, no organomegaly, non-distended ? Rectal: Normal tone, no masses or tenderness; Extremities: Extremities normal, atraumatic, no cyanosis or edema, no clubbing Skin: Skin color, texture, turgor normal, no rashes, lesions or bruising Lymph nodes: Cervical, supraclavicular, and axillary nodes normal Neurologic: Alert & oriented x 4, CNII-XII intact. Normal strength, sensation and reflexes throughout Psychosocial: Normal affect and mood ?? Lab/Radiology/Diagnostic Review: Laboratory review: Lab results in the last 24 hours: No results found for this or any previous visit (from the past 24 hour(s)). Imaging: Upper GI series 09/15/19 - normal MRI Brain w, w/o contrast 09/15/19 - Normal MRI of the brain. EYOR HYDROGRAPHIC * Medical Student - Jaswant Pastrana - 09/16/2019 10:45 AM CST Pediatric Daily Progress Note ?? Nina Coyne is a 19 y/o w/ hx of moderate persistent asthma, ovarian cyst, and anxiety disorder who p/w chronic nausea since July with increasing frequency of emesis and abdominal discomfort. ?? Subjective: Patient underwent MRI yesterday which was normal. Patient is still nauseous and vomiting several times a day, especially with feeds. She has been able to keep down some fluids, but cannot keep any solid foods down (vomits as soon as she tries to eat now). ?? Objective: Vitals: Temp - 36.3 - 36.9 HR - 65-78 BP - 108-130/74-88 RR - 16-21 O2 Sat - 97%-100% ?? In: 3327 mL (PO 412, IV 2915) Out: 2150 mL Weight: 99.4kg ? Physical Exam: General -??NAD, appears well and is resting comfortably ?? HEENT -??NC/AT. No LAD. Oropharynx clear, pink, moist. PERLLA, EOMI.? Cardiac -??RRR, normal S1/S2, no m/r/g ?? Respiratory -??CTAB, no w/r/r, moving air adequately ?? Abdominal -??soft,??non-distend with mild tenderness on deep palpation above epigastric region,??norebound tenderness, no HSM/masses palpated, NABS. ?? Extremities -??warm and well perfused in all extremities, pulses 2+ ?? Skin -??no rashes, jaundice, lesions, or bruises. ?? Neurological -??A&Ox3, moving all extremities spontaneously, CN II-XII grossly intact.? Labs/Imaging: MRI normal. H. Pylori negative. ?? Medications: Scheduled - Esitalopram 10 mg PO every day Fluticasone Furoate-Vilanterol 100-25 mcg/dose diskus inhalor 1 puff daily Norgestimate-ethinyl estradiol 0.18/0.215/0.25 mg -25mcg 1 tablet PO daily Lansoprazole 15mg BID PO ?? PRN - Albuterol 1.25 mg/3mL nebulizer Q4 PRN Ondansetron ODT 4mg tablet Q6 PRN ? Assessment and Plan: Nina Coyne is a 19 y/o w/ hx of moderate persistent asthma, ovarian cyst, and anxiety disorder who p/w chronic nausea since July with increasing frequency of emesis and abdominal discomfort. ? #Acute on chronic nausea and vomitting w/ abdominal discomfort. Most likely diagnosis is functional??nausea. Functional nausea is a diagnosis of exclusion and extensive workup has thus far been negative (including normal MRI, EGD, UGI series, CT abdomen/pevlis, multiple ultrasounds).??It it possible that patient is starting to develop aversion to eating as a result of negative experiences (e.g. repeat vomiting). This aversion worsens her nausea and creates more anxiety, putting her in a cycle that has resulted in her clinical picture. Our goals now are to clear her from a GI assessment standpoint and make sure she can maintain adequeate PO fluid and nutrition intake on discharge. - Formal gastric emptying study (per GI recs). - Start nortriptyline as an anti-spasmodic that may also address comorbid anxiety (per GI recs). - Pysch consult before discharge to see if they have any recommendations for nausea management - Consider CBT and alternative anti-emetics and anti-spasmodic if GI workup is negative to treat functional nausea. - Maintenance fluids w/ D5 NS + 20meq potassium.??No current signs of dehydration. - Zofran 4mg scheduled q6. - Regular diet as tolerated - Tylenol prn for pain, avoid NSAIDS - Lexapro taper to rule out medication cause of symptoms - will continue at 10mg and then taper outpatient to 0. - Continue lansoprazole 15mg BID ?? #Anxiety and Depression Rapid taper of lexapro to rule out medication cause of symptoms - will continue at 10 mg and taper outpatient. ?? #Asthma Albuterol 1.25 mg/3mL nebulizer PRN,??Continue??home breo-ellipta??100-25 mcg/dose diskus inhalor 1puff daily ?? #OCP Continue home norgestimate-ethinyl estradiol 0.18/0.215/0.25 mg -25mcg 1 tablet PO daily ?? Code: Full Code Diet: Regular diet ?? Jaswant Pastrana, Selin Cosigned by Nehal Salgado MD at 09/16/2019 11:19 AM SURVEYOR HYDROGRAPHIC EYOR HYDROGRAPHIC EYOR HYDROGRAPHIC * Plan of Care - Jaswant Phan RN - 09/15/2019 9:49 PM CST Goals: Clinical Goals for the Shift: Zofran for nausea, pain control, monitor i/o Summary: Reviewed overnight plan of care with patient, mother. Encouraged po, nausea control. EYOR HYDROGRAPHIC * Plan of Care - Elpidio Mcintyre RN - 09/15/2019 4:56 PM CST Problem: Lack of Knowledge: Goal: Ability to make informed decisions regarding treatment will improve Outcome: Progressing Problem: Coping: Goal: Ability to cope will improve Outcome: Progressing Problem: Health Behavior: Goal: Identification of resources available to assist in meeting health care needs will improve Outcome: Progressing Problem: Medication: Goal: Compliance with prescribed medication regimen will improve Outcome: Progressing Problem: Safety: Goal: Ability to remain free from injury will improve Outcome: Progressing Goal: Verbalizations of safety and security will increase Outcome: Progressing Problem: Self-Concept: Goal: Ability to disclose and discuss suicidal ideas will improve Outcome: Progressing Goal: Ability to verbalize positive feelings about self will improve Outcome: Progressing Problem: Activity: Goal: Ability to follow a routine sleep schedule will improve Outcome: Progressing Problem: Bowel/Gastric: Goal: Ability to maintain baseline age appropriate bowel function will improve Outcome: Progressing Problem: Lack of Knowledge: Goal: Knowledge of disease or condition will improve Outcome: Progressing Problem: Coping: Goal: Expression of the ability to provide proper assistance and support to the patient will improve Outcome: Progressing Problem: Fluid Volume: Goal: Ability to maintain a balanced intake and output will improve Outcome: Progressing Problem: Health Behavior: Goal: Understanding of discharge needs will improve Outcome: Progressing Goals: Clinical Goals for the Shift: Zofran for nausea, pain control, monitor i/o Summary: Small amount of oral intake, patient states tylenol helps the pain. Nina remains free of falls. EYOR HYDROGRAPHIC * Assessment & Plan Note - Viktor Villagomez MD - 09/15/2019 3:00 PM CSTAssociated Problem(s): Chronic nausea 2 month history of worsening nausea with numerous episodes of NB/NB emesis in the past day. Has hadsignificant workup including labs, CT, and US which [...] lexapro vs start cyproheptadine - Zofran prn EYOR HYDROGRAPHIC * Assessment & Plan Note - Viktor Villagomez MD - 09/15/2019 2:52 PM CSTAssociated Problem(s): Mild malnutrition (HCC) (Resolved 08/22/2020) 15 pound weight loss over several months due to chronic nausea and vomiting with resultant poor appetite. - Manage nausea symptoms - nutrition consult EYOR HYDROGRAPHIC * Assessment & Plan Note - Viktor Villagomez MD - 09/15/2019 2:50 PM CSTAssociated Problem(s): Abdominal pain Right lower quadrant abdominal pain began in [...] for pain, avoid NSAIDS - Continue OCP EYOR HYDROGRAPHIC * Subjective & Objective - Viktor Villagomez MD - 09/15/2019 2:48 PM CST Pediatric Daily Progress Subjective Chief complaint of nausea, vomiting. Interval History: NAEON. Vomited x2 overnight, NB/NB gastric contents. Appetite poor. No fever, diarrhea, new complaints. NPO from midnight for upper GI study today. Objective Vitals: Vitals 24 hour ranges: Temp: [36.4 ??C (97.5 ??F)-37 ??C (98.6 ??F)] Pulse: [64-96] Resp: [16-20] BP: (106-132)/(53-81) I/O last 2 completed shifts: In: 3975 [P.O.:522; I.V.:3453] Out: 2160 [Urine:2160] I/O this shift: In: 644.6 [I.V.:644.6] Out: 350 [Urine:350] Physical Exam: General Appearance: Alert, cooperative, no distress, appears stated age, well developed, well nourished, obese Head: Normocephalic, without obvious abnormality, atraumatic Eyes: PERRL, conjunctiva/corneas clear, EOM's intact, fundi benign, both eyes, anicteric Ears: Normal TM's and external ear canals, both ears Nose: Nares normal, septum midline, mucosa normal, no drainage or sinus tenderness Throat: Lips, mucosa, and tongue normal; teeth and gums normal, mucous membranes moist Neck: Supple, symmetrical, trachea midline, no adenopathy; thyroid: No enlargement/tenderness/nodules; no carotid bruit or JVD Back: Symmetric, no curvature, ROM normal, no CVA tenderness Lungs: Clear to auscultation bilaterally, respirations unlabored ? Cardiovascular: Regular rate and rhythm, S1 and S2 normal, no murmur, rub or gallop, no edema, pulses 2+ and symmetric to all extremeties Abdomen: Soft,mild mid abdominal tenderness to palpation, bowel sounds active all four quadrants, no masses, no organomegaly, non-distended ? Rectal: Normal tone, no masses or tenderness; Extremities: Extremities normal, atraumatic, no cyanosis or edema, no clubbing Skin: Skin color, texture, turgor normal, no rashes, lesions or bruising Lymph nodes: Cervical, supraclavicular, and axillary nodes normal Neurologic: Alert & oriented x 4, CNII-XII intact. Normal strength, sensation and reflexes throughout Psychosocial: Normal affect and mood ?? Lab/Radiology/Diagnostic Review: Laboratory review: Lab results in the last 24 hours: No results found for this or any previous visit (from the past 24 hour(s)). Imaging: Upper GI series 09/15/19 - normal EYOR HYDROGRAPHIC * Medical Student - Jaswant Pastrana - 09/15/2019 11:14 AM CST Pediatric Daily Progress Note Nina Coyne is a 19 y/o w/ hx of moderate persistent asthma, ovarian cyst, and anxiety disorder who p/w chronic nausea since July with increasing frequency of emesis and abdominal discomfort. Subjective: Patient underwent EGD yesterday (09/14) with benign visualization and biopsy/surgical path pending. This morning patient underwent UGI, which was negative for any pathology. Patient vomitted 4-5 timesyesterday w/ food or liquid intake. She still feels nauseous. Patient is otherwise asymptomatic. Objective: Vitals: Temp - 36.4 - 37 HR - 964-116 BP - 106-146/53-87 RR - 12-24 O2 Sat - 97%-100% In: 3721 Out: 2160 Weight: 99.4kg ? Physical Exam: General - NAD, appears well and is conversational ?? HEENT - NC/AT. No LAD. Oropharynx clear, pink, moist. PERLLA, EOMI. ?? Cardiac - RRR, normal S1/S2, no m/r/g ?? Respiratory - CTAB, no w/r/r, moving air adequately ?? Abdominal - soft, non-distend with mild tenderness on deep palpation above epigastric region, no rebound tenderness, no HSM/masses palpated, NABS. ?? Extremities - warm and well perfused in all extremities, pulses 2+ ?? Skin - no rashes, jaundice, lesions, or bruises. ?? Neurological - A&Ox3, moving all extremities spontaneously, CN II-XII grossly intact. ??? Labs/Imaging: UDS positive for fentanyl (due to sedation for EGD procedure), negative for cannabinoids ECG normal, no concern for QT prolongation Medications: Scheduled - Esitalopram 20 mg PO every day Fluticasone Furoate-Vilanterol 100-25 mcg/dose diskus inhalor 1 puff daily Norgestimate-ethinyl estradiol 0.18/0.215/0.25 mg -25mcg 1 tablet PO daily Omeprazole 20mg BID PO PRN - Albuterol 1.25 mg/3mL nebulizer Q4 PRN Ondansetron ODT 4mg tablet Q6 PRN ? Assessment and Plan: Nina Coyne is a 19 y/o w/ hx of moderate persistent asthma, ovarian cyst, and anxiety disorder who p/w chronic nausea since July with increasing frequency of emesis and abdominal discomfort. #Acute on chronic nausea and vomitting. 12 episodes of emesis, likely non-bloody, occurring in the context of chronic nausea since / 1-2 episodes of vomiting per day over the last 2 weeks. Abdominal discomfort/cramping in epigastric region as well as mild tenderness on palpation above epigastric region accompanies nausea. Most likely diagnosis is functional nausea. Functional nausea is a diagnosis of exclusion and extensive workup has thus far been negative. Given 15 lb weight loss and persistent GI symptoms, EGD visualization and biopsy and UGI were ordered which have been negative (biopsy still pending). Initial ddx fornausea and abdominal discomfort was broad, but given clinical presentation and negative workup other diagnosis are unlikely. - Maintenance fluids w/ D5 NS + 20meq potassium. No current signs of dehydration. - Zofran 4mg scheduled q6. - Regular diet as tolerated - Tylenol prn for pain, avoid NSAIDS - Full detailed neurological exam to evaluate for abnormalities - Lexapro taper to rule out medication cause of symptoms - will drop dose to 10 mg today ? #Anxiety and Depression Rapid taper of lexapro to rule out medication cause of symptoms - will drop dose to 10 mg today ?? #Asthma Albuterol 1.25 mg/3mL nebulizer PRN, Continue home breo-ellipta 100-25 mcg/dose diskus inhalor 1 puff daily ?? #OCP Continue home norgestimate-ethinyl estradiol 0.18/0.215/0.25 mg -25mcg 1 tablet PO daily ?? Code: Full Code Diet: Regular diet ?? Jaswant Pastrana, M3 Cosigned by Nehal Salgado MD at 09/15/2019 11:46 AM SURVEYOR HYDROGRAPHIC EYOR HYDROGRAPHIC EYOR HYDROGRAPHIC EYOR HYDROGRAPHIC * Plan of Care - Lety Thompson RN - 09/15/2019 4:20 AM CST Problem: Lack of Knowledge: Goal: Ability to make informed decisions regarding treatment will improve Outcome: Progressing Problem: Coping: Goal: Ability to cope will improve Outcome: Progressing Problem: Health Behavior: Goal: Identification of resources available to assist in meeting health care needs will improve Outcome: Progressing Problem: Medication: Goal: Compliance with prescribed medication regimen will improve Outcome: Progressing Problem: Safety: Goal: Ability to remain free from injury will improve Outcome: Progressing Goal: Verbalizations of safety and security will increase Outcome: Progressing Problem: Self-Concept: Goal: Ability to disclose and discuss suicidal ideas will improve Outcome: Progressing Goal: Ability to verbalize positive feelings about self will improve Outcome: Progressing Problem: Activity: Goal: Ability to follow a routine sleep schedule will improve Outcome: Progressing Problem: Bowel/Gastric: Goal: Ability to maintain baseline age appropriate bowel function will improve Outcome: Progressing Problem: Lack of Knowledge: Goal: Knowledge of disease or condition will improve Outcome: Progressing Problem: Coping: Goal: Expression of the ability to provide proper assistance and support to the patient will improve Outcome: Progressing Problem: Fluid Volume: Goal: Ability to maintain a balanced intake and output will improve Outcome: Progressing Problem: Health Behavior: Goal: Understanding of discharge needs will improve Outcome: Progressing Clinical Goals for the Shift: Zofran for nausea, pain control, monitor i/o Summary: Emesis x2. NPO for upper GI series today. Pain got up to 5/10. EYOR HYDROGRAPHIC * Plan of Care - Elpidio Mcintyre RN - 09/14/2019 6:36 PM CST Problem: Coping: Goal: Ability to cope will improve Outcome: Progressing Problem: Safety: Goal: Ability to remain free from injury will improve Outcome: Progressing Problem: Activity: Goal: Ability to follow a routine sleep schedule will improve Outcome: Progressing Problem: Lack of Knowledge: Goal: Ability to make informed decisions regarding treatment will improve Outcome: Defer Problem: Health Behavior: Goal: Decreased thoughts of self harm Outcome: Completed Note: Denies Self harm recently Goals: Clinical Goals for the Shift: PRN zofran for nausea, monitor i/o, NPO @ 00 for scope Summary: continued nausea. Tolerated scope, poor PO intake after scope. EYOR HYDROGRAPHIC * Assessment & Plan Note - Viktor Villagomez MD - 09/14/2019 1:00 PM CSTAssociated Problem(s): Chronic nausea 2 month history of worsening nausea with numerous episodes of NB/NB emesis in the past day. Has hadsignificant workup including labs, CT, and US which [...] ECG for prolonged zofran use - UDS EYOR HYDROGRAPHIC * Assessment & Plan Note - Viktor Villagomez MD - 09/14/2019 1:00 PM CSTAssociated Problem(s): Abdominal pain Right lower quadrant abdominal pain began in [...] for pain, avoid NSAIDS - Continue OCP EYOR HYDROGRAPHIC * Subjective & Objective - Viktor Villagomez MD - 09/14/2019 12:58 PM CST Pediatric Daily Progress Subjective Chief complaint of nausea, vomiting. Interval History: NAEON. Vomited x1 overnight, NB/NB gastric contents. No fever, diarrhea, new complaints. NPO from midnight for scope today. Objective Vitals: Vitals 24 hour ranges: Temp: [36.4 ??C (97.5 ??F)-37.1 ??C (98.8 ??F)] Pulse: [64-116] Resp: [12-24] BP: (118-146)/(70-91) FiO2 (%): [100 %] I/O last 2 completed shifts: In: 1806 [P.O.:350; I.V.:1456] Out: 150 [Urine:150] I/O this shift: In: 888.1 [P.O.:90; I.V.:798.1] Out: - Physical Exam: General Appearance: Alert, cooperative, no distress, appears stated age, well developed, well nourished, obese Head: Normocephalic, without obvious abnormality, atraumatic Eyes: PERRL, conjunctiva/corneas clear, EOM's intact, fundi benign, both eyes, anicteric Ears: Normal TM's and external ear canals, both ears Nose: Nares normal, septum midline, mucosa normal, no drainage or sinus tenderness Throat: Lips, mucosa, and tongue normal; teeth and gums normal, mucous membranes moist Neck: Supple, symmetrical, trachea midline, no adenopathy; thyroid: No enlargement/tenderness/nodules; no carotid bruit or JVD Back: Symmetric, no curvature, ROM normal, no CVA tenderness Lungs: Clear to auscultation bilaterally, respirations unlabored ? Cardiovascular: Regular rate and rhythm, S1 and S2 normal, no murmur, rub or gallop, no edema, pulses 2+ and symmetric to all extremeties Abdomen: Soft,mild mid abdominal tenderness to palpation, bowel sounds active all four quadrants, no masses, no organomegaly, non-distended ? Rectal: Normal tone, no masses or tenderness; Extremities: Extremities normal, atraumatic, no cyanosis or edema, no clubbing Skin: Skin color, texture, turgor normal, no rashes, lesions or bruising Lymph nodes: Cervical, supraclavicular, and axillary nodes normal Neurologic: Alert & oriented x 4, CNII-XII intact. Normal strength, sensation and reflexes throughout Psychosocial: Normal affect and mood ?? Lab/Radiology/Diagnostic Review: Laboratory review: Lab results in the last 24 hours: Recent Results (from the past 24 hour(s)) hCG, urine, qualitative Collection Time: 09/13/19 2:07 PM Result Value Ref Range HCG, ur Negative Negative POCT urinalysis ([facility]) Collection Time: 09/13/19 2:11 PM Result Value Ref Range Color, ur, POC Yellow Clarity, UA, POC Clear Glucose, ur, POC Negative Bilirubin, ur, POC Negative Ketones, ur, POC Negative Specific gravity, ur, POC 1.025 1.010 - 1.025 Blood, ur, POC Negative pH, ur, POC 6.5 Protein, ur, POC Negative Urobilinogen, ur, POC 2.0 (A) Nitrites, ur, POC Negative Leukocyte esterase, ur, POC Negative EYOR HYDROGRAPHIC * Perioperative Nursing Note - Shawna Monae RN - 09/14/2019 11:50 AM SURVEYOR HYDROGRAPHIC Patient awake and drinking Sprite on the transport to the [address] unit. No complaints of noted at this time. Oxygen saturations greater than 94% on RA with no distress noted. Family present with patient. Patient able to transfer self from stretcher to her bed without any difficulties. No questions orconcerns of noted at this time. Report given to GLENDA Magallanes patient's floor RN. EYOR HYDROGRAPHIC * Hospital Course - Jaswant Pastrana - 09/14/2019 10:46 AM CST In ED patient received zofran for nausea. Pelvic/ovarian ultrasound showed normal ovaries and B-HCGwas negative. She was continued on IV fluids and zofran for nausea and dehydration. On 09/14 she underwent esophogastroduodenoscopy which was visually unremarkable, with negative H. Pylori and unremarkable biopsies at time of discharge. An ECG was within normal limits with no concern for QT prolongation. UDS was negative besides for fentanyl due to sedation from EGD procedure. UGI series on 09/14 was wnl. Patient was started on lexapro wean to 10mg while inpatient to rule out medication as cause of nausea. MRI on 09/15 was normal. Nortriptyline was started on 09/16 per GI recs as an anti-spasmodic. As her acute nausea/vomiting improved she was discharged home with GI follow up in 2-3 weeks. EYOR HYDROGRAPHIC EYOR HYDROGRAPHIC EYOR HYDROGRAPHIC EYOR HYDROGRAPHIC EYOR HYDROGRAPHIC EYOR HYDROGRAPHIC EYOR HYDROGRAPHIC EYOR HYDROGRAPHIC EYOR HYDROGRAPHIC EYOR HYDROGRAPHIC * Plan of Care - Lety Thompson RN - 09/14/2019 4:32 AM CST Problem: Lack of Knowledge: Goal: Ability to make informed decisions regarding treatment will improve Outcome: Progressing Problem: Coping: Goal: Ability to cope will improve Outcome: Progressing Problem: Health Behavior: Goal: Identification of resources available to assist in meeting health care needs will improve Outcome: Progressing Goal: Decreased thoughts of self harm Outcome: Progressing Problem: Medication: Goal: Compliance with prescribed medication regimen will improve Outcome: Progressing Problem: Safety: Goal: Ability to remain free from injury will improve Outcome: Progressing Goal: Verbalizations of safety and security will increase Outcome: Progressing Problem: Self-Concept: Goal: Ability to disclose and discuss suicidal ideas will improve Outcome: Progressing Goal: Ability to verbalize positive feelings about self will improve Outcome: Progressing Problem: Activity: Goal: Ability to follow a routine sleep schedule will improve Outcome: Progressing Problem: Bowel/Gastric: Goal: Ability to maintain baseline age appropriate bowel function will improve Outcome: Progressing Problem: Lack of Knowledge: Goal: Knowledge of disease or condition will improve Outcome: Progressing Problem: Coping: Goal: Expression of the ability to provide proper assistance and support to the patient will improve Outcome: Progressing Problem: Fluid Volume: Goal: Ability to maintain a balanced intake and output will improve Outcome: Progressing Clinical Goals for the Shift: PRN zofran for nausea, monitor i/o, NPO @ 00 for scope Summary: emesis x1. NPO since midnight. Denies any pain. EYOR HYDROGRAPHIC * Assessment & Plan Note - Viktor Villagomez MD - 09/13/2019 7:44 PM CSTAssociated Problem(s): Chronic nausea 2 month history of worsening nausea with numerous episodes of NB/NB emesis in the past day. Has hadsignificant workup including labs, CT, and US which [...] midnight for EGD 09/14 - Zofran prn EYOR HYDROGRAPHIC EYOR HYDROGRAPHIC * Assessment & Plan Note - Viktor Villagomez MD - 09/13/2019 7:40 PM CSTAssociated Problem(s): Abdominal pain Right lower quadrant abdominal pain began in [...] for pain, avoid NSAIDS - Continue OCP EYOR HYDROGRAPHIC EYOR HYDROGRAPHIC * Medical Student - Jaswant Pastrana - 09/13/2019 7:02 PM CST Pediatric H&P CC: Vomitting and abdominal pain HPI: Nina Coyne is a 19 y/o girl w/ PMH of ruptured R ovarian cyst, anxiety disorder, and asthma who presents with 12 episodes of emesis over the last day in addition to abdominal discomfort. Nausea first started in July 2019 shortly after patient started citalopram 10 mg po qd for worsening anxiety and depression. Dose was subsequently increased to 20 mg qd, coinciding with the start ofperiumbilical abdominal pain radiating to RLQ w/ decreased PO intake. Zofran did not help. Due to continued for nausea and abdominal pain, latricia was admitted to [facility] from 07/19-07/23 and was subsequently diagnosed with slow leaking ruptured ovarian cyst. During admission, extensive workup was done (normal pelvic/ovaries US, normal gallbladder US, labs wnl), including CT abdomen/pelvis w/ contrast (due to continued pain and rebound tenderness on exam) which showed right ovarian corpus lutealcyst w/ small amount of fluid in the cul-de-sac which SENIOR RESEARCH PROJECT MANAGER thought may explain her pain. Patient was d/c with 5 day course of scheduled toradol and acetominophen for pain control. Patient saw PCP on 08/02 for followup - pain had improved but still had nausea and was started on priolsec and zofran. PCP was concerned that abdominal pain and nausea was 2/2 NSAIDS. Saw PCP on 08/11 w/ minimal improvement and was referred to GI. At GI visit, patient stated that pain was primarily located in RLQ and had improved considerably compared to July admission, but nausea continued to persist. GI recommended strict avoidance of NSAIDS, contining omeprazole 20mg BID, changing psych meds, and to consider EGD if no improvement. Shortly after, patient also followed up with OBGYN at [place] (Dr. Crum) who confirmed that the ovarian cyst had resolved and did not think that patient's nausea was attr ibutable to ovarian cyst. Patient was started on OCP for prophylaxis against future cysts. At this time, patient's abdominal pain had resolved but her nausea persisted. During the month of August, patient's nausea progressed to the point where she was vomiting 1-2 times every day and the nausea was interfering with daily function. Vomit was non-bloody and non-bilious. There were no identifiable triggers or patterns for the nausea and vomiting. None of the aforementioned medication changes improved her nausea/vomiting besides Zofran, which temporarily relieves the nausea. 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 During this time patient reports fatigue and weight loss of about 15 pounds due to not being able to eat asa result of nausea. She denies any other symptoms during this time. Nausea continued to gradually worsen, culminating in 12 episodes of vomiting in the last 24 hours. Vomit was initially non-bloody, non-bilious but her 4th - 6th episodes of vomit were red in color. Patient had been drinking red Gatorade before and is unsure if the color was due to Gatorade or blood. After a few episodes of emesis, patient started to feel abdominal discomfort/cramping in epigastric region which she describes as fullness . Patient denied hematochezia/melena, headache, changes invision, changes in bowel movements, dizziness/lightheadedness, rash, joint pain, fever, night sweats, dysuria, back pain, chest pain/palpitations/SOB. Patient called PCP who recommended she come to the ED. In the ED she had 1 more bout of emesis and received zofran for nausea. Pelvic/ovarian US was performed out of concern for ovarian torsion and was normal. b-HCG was negative, UA was WNL. Patient looked well on exam in ED but had mid-epigastric and RLQ tenderness. Patient was admitted for further GIworkup and potential EGD. PMH: Anxiety Disorder/Depression - Primarily managed by PCP. Patient has been seeing a counselor/therapist since she was 11 years old. Due to recent stress from school starting/college applications patientwas started on SSRI (citalopram 10mg -> 20mg every day) in May by PCP. Citalopram was subsequently switched to escitalopram 20mg due to concern that it was contributing to nausea. Patient reports having suicidal ideation in the past (last year), but denies currently being suicidal. Overall, patient reports that anxiety and depression are under control with current treatment regimen. Asthma - takes breo ellipta and pro-air PRN. Symptoms well controlled Ruptured Ovarian Cyst - resolved at last SENIOR RESEARCH PROJECT MANAGER visit, on OCP (norgestin) for prevention of future cysts. PSH: none Meds: Albuterol 1.25 mg/3mL nebulizer Q4 PRN Esitalopram 20 mg PO every day Fluticasone Furoate-Vilanterol 100-25 mcg/dose diskus inhalor 1 puff daily Norgestimate-ethinyl estradiol 0.18/0.215/0.25 mg -25mcg 1 tablet PO daily Omeprazole 20mg BID PO Ondansetron ODT 4mg tablet Q6 PRN Allergies: Penicillin - rash and abdominal discomfort FH: No relevant family history (IBD, IBS, cancer, etc.) reported. SH: Patient feels safe at home. She is in 12th grade and [facility] [employer] [facility], [place] next year. She has friends she likes at school and overall is enjoying school but felt stressed out by work. Sheparticipates in several activities at school (e.g. orchestra) which she enjoys. She does not use alc ohol, tobacco, or recreational drugs. She is not currently sexually active but feels that she has people she can talk to about it if she does decide to become active. No recent travels/exposures/sickcontacts. ROS: Patient endorses fatigue, weight loss, abdominal discomfort, and nausea/vomitting. Patient denied hematochezia/melena, headache, changes in vision, changes in bowel movements, dizziness/lightheadedness, rash, joint pain, fever, night sweats, dysuria, back pain, chest pain/palpitations/SOB. Vitals: Temp - 36.5 - 37.6 HR - 60-76 BP - 107-118/61-72 RR - 16-20 O2 Sat - 96% - 100% Physical Exam: General - NAD, appears well and is conversational HEENT - NC/AT. No LAD. Oropharynx clear, pink, moist. PERLLA, EOMI. Cardiac - RRR, normal S1/S2, no m/r/g Respiratory - CTAB, no w/r/r, moving air adequately Abdominal - soft, non-distend with mild tenderness on deep palpation above epigastric region, no rebound tenderness, no HSM/masses palpated, NABS. Extremities - warm and well perfused in all extremities, pulses 2+ Skin - no rashes, jaundice, lesions, or bruises. Neurological - A&Ox3, moving all extremities spontaneously, CN II-XII grossly intact. Labs/Imaging: Recent Results (from the past 24 hour(s)) hCG, urine, qualitative Collection Time: 09/13/19 2:07 PM Result Value Ref Range HCG, ur Negative Negative POCT urinalysis (Clinitek) Collection Time: 09/13/19 2:11 PM Result Value Ref Range Color, ur, POC Yellow Clarity, UA, POC Clear Glucose, ur, POC Negative Bilirubin, ur, POC Negative Ketones, ur, POC Negative Specific gravity, ur, POC 1.025 1.010 - 1.025 Blood, ur, POC Negative pH, ur, POC 6.5 Protein, ur, POC Negative Urobilinogen, ur, POC 2.0 (A) Nitrites, ur, POC Negative Leukocyte esterase, ur, POC Negative Pelvic US: normal ovaries, no concern for ovarian torsion Assessment/Plan: Nina Coyne is a 19 y/o w/ PMH of chronic nausea, anxiety, and ruptured ovarian cyst who presents for 12 episodes of emesis over the last 24 hours. #Acute on chronic nausea and vomitting. 12 episodes of emesis, likely non-bloody, occurring in the context of chronic nausea since -2 episodes of vomiting per day over the last 2 weeks. Abdominal discomfort/cramping in epigastric region as well as mild tenderness on palpation above epigastric region accompanies nausea. Most likely diagnosis is functional/anxiety related nausea. Onset of nausea closely followed worsening of anxiety symptoms in May/July. Functional nausea is a diagnosis of exclusion and extensive workup has thus far been negative. It is unlikely but possible that patient is self-medicating with marijuana products, and thus hyperemesis gravidum should be considered. Given 15 lb weight loss and pe rsistent GI symptoms, it is also worth ruling out malignancy, gastritis, and potential causes of malabsorption with EGD visualization and biopsy. Initial ddx for nausea and abdominal discomfort was broad, but given clinical presentation and negative workup other diagnosis are unlikely. Ruptured ovarian cyst from July has resolved, and newly ruptured ovarian cyst is unlikely given lack of characteristic abdominal pain. Pelvic US in the ED ruled out ovarian torsion. Appendicitis is unlikely given chronic nature and lack of characteristic abdominal pain. Patient has had normal bowel movements and no reports of constipation. Lack of improvement with PPIs suggest against GERD and course of patient's symptoms are not suggestive of PUD. Normal labs/imaging in the past and lack of jaundice/abdominal pain suggest against biliary cause. Patient has lack of fever/inflammatory symptoms/diarrheathat would be suggestive of infectious or systemic inflammatory etiology. UA was clean, making UTI unlikely. Cyclic vomitting syndrome is unlikely given time course of nausea. and vomitting. Patient has no signs of increased ICP or symptoms suggestive of migraines. B-hcg negative. - NPO at midnight for EGD tomorrow per GI recs. - Maintenance fluids w/ D5 NS + 20meq potassium. No current signs of dehydration. - Zofran 4mg scheduled q6. - Regular diet as tolerated until midnight. - Tylenol prn for pain, avoid NSAIDS - ECG to check for QT prolongation 2/2 chronic zofran use - UDS to evaluate for marijuana use #Anxiety and Depression Continue home escitalopram 20mg. #Asthma Albuterol 1.25 mg/3mL nebulizer PRN, Continue home breo-ellipta 100-25 mcg/dose diskus inhalor 1 puff daily #OCP Continue home norgestimate-ethinyl estradiol 0.18/0.215/0.25 mg -25mcg 1 tablet PO daily Code: Full Code Diet: NPO at midnight 09/14 for EGD Jaswant Pastrana, M3 Cosigned by Nehal Salgado MD at 09/15/2019 11:01 AM SURVEYOR HYDROGRAPHIC EYOR HYDROGRAPHIC EYOR HYDROGRAPHIC EYOR HYDROGRAPHIC * Plan of Care - Haily Becker RN - 09/13/2019 6:44 PM CST Goals: Have decreased nausea Summary: Problem: Bowel/Gastric: Goal: Ability to maintain baseline age appropriate bowel function will improve Outcome: Not Progressing Problem: Fluid Volume: Goal: Ability to maintain a balanced intake and output will improve Outcome: Not Progressing EYOR HYDROGRAPHIC * Subjective & Objective - Viktor Villagomez MD - 09/13/2019 6:19 PM CST History and Physical Subjective Patient is a 19 y.o. female with chief complaint of vomiting, abdominal pain. HPI: Nina is a 19 yo female with a pmh of asthma, ovarian cyst, anxiety presenting with a 2 month history of abdominal pain and nausea/vomiting. Symptoms began in July 2019 with abdominal pain. She was admitted with a right ovarian cyst thought to be the source of her abdominal pain. Abdominal painhas since improved however and she has seen [facility] [employer] in clinic who felt that the pain was likely from the cyst but would not explain the persistent nausea. From July on she has had daily nausea with vomiting 1-2x per day this month. She was seen by GI who started prilosec and planned an EGD for lateJanuary. Nina feels the prilosec has not improved her symptoms. Yesterday she vomited 12x. Vomit has generally been clear gastric contents but yesterday had several with dark red/brown liquid, although she had also had a red Gatorade. She has had an abdominal/pelvic ultrasound which was unremarkable. A repeat on admission today was unremarkable. A CT on 07/21 showed the ovarian cyst in 2018. A HEADS exam was conducted with the patient without any other family members present. She is in 12th grade and plans to attend [employer] next year. She is active in drama and choir. She feels safeat school and at home. She does not use alcohol, tobacco, or drugs but as friends who do. She has never been sexually active. She has had feelings of anxiety and has been on lexapro for several months now. She sees a therapist. She previously had feelings of depression but her mood is now improved.She denies SI. Past Medical History: Diagnosis Date ??? Abdominal pain 07/20/2019 ??? Abnormal electrocardiography 01/19/2017 Annotation: Saw cardiology 2016 and was cleared, repeat 08/25/19 Normal sinus rhythm with sinus arrhythmia with short CO ??? Anxiety 07/20/2019 ??? Asthma ??? Nausea 08/15/2019 ??? Vomiting multiple times per week Past Surgical History: Procedure Laterality Date ??? WRIST SURGERY Medications Prior to Admission Medication Sig Dispense Refill Last Dose ??? albuterol (PROVENTIL,VENTOLIN) 1.25 mg/3 mL nebulizer solution Take 3 mL by nebulization every 4 (four) hours as needed for wheezing or shortness of breath Not Taking ??? albuterol HFA (PROVENTIL HFA,VENTOLIN HFA,PROAIR HFA) 90 mcg/actuation inhaler Inhale 2 puffs every 6 hours as needed for wheezing or shortness of breath Not Taking ??? escitalopram (LEXAPRO) 20 mg tablet Take 1 tablet (20 mg total) by mouth daily 30 tablet 3 ??? fluticasone furoate-vilanterol (Breo Ellipta) 100-25 mcg/dose diskus inhaler Inhale 1 puff daily 60 each 0 ??? fluticasone propionate (FLONASE) 50 mcg/actuation nasal spray Administer 2 sprays into each nostril daily Not Taking ??? norgestimate-ethinyl estradiol (ORTHO TRI-CYCLEN LO) 0.18/0.215/0.25 mg-25 mcg per tablet Take 1 tablet by mouth daily 0 ??? omeprazole (PriLOSEC) 20 mg capsule Take 1 capsule (20 mg total) by mouth 2 (two) times a day 60 capsule 1 ??? ondansetron ODT (ZOFRAN-ODT) 4 mg disintegrating tablet Take 1 tablet (4 mg total) by mouth every 6 (six) hours as needed for nausea or vomiting 20 tablet 0 Allergies Allergen Reactions ??? Dog Dander Hives Reaction: HIVES, ??? Penicillins Other (See comments) and Rash As a child Reaction: NAUSEA;, As a child Social History Tobacco Use ??? Smoking status: Never Smoker Substance Use Topics ??? Alcohol use: Not on file Family History Adopted: Yes Family history unknown: Yes Review of Systems Review of Systems Constitutional: Positive for weight loss. Negative for chills, diaphoresis, fever and malaise/fatigue. HENT: Negative for congestion, ear pain, hearing loss and sinus pain. Eyes: Negative for blurred vision and discharge. Respiratory: Negative for cough, hemoptysis, sputum production, shortness of breath and wheezing. Cardiovascular: Negative for chest pain, palpitations, orthopnea and leg swelling. Gastrointestinal: Positive for abdominal pain, nausea and vomiting. Negative for blood in stool, constipation, diarrhea and melena. Genitourinary: Negative for dysuria, frequency and urgency. Musculoskeletal: Negative for myalgias. Skin: Negative for itching and rash. Neurological: Negative for dizziness, tremors, focal weakness, seizures, weakness and headaches. Endo/Heme/Allergies: Does not bruise/bleed easily. Psychiatric/Behavioral: Negative for depression and suicidal ideas. The patient is nervous/anxious. Objective Vitals: Arrival Vitals Temp 09/13/19 1022 36.4 ??C (97.5 ??F) Pulse 09/13/19 1022 72 Resp 09/13/19 1022 18 BP 09/13/19 1022 (!) 139/88 SpO2 09/13/19 1022 96 % Temp src 09/13/19 1022 Temporal Heart Rate Source 09/13/19 1524 Monitor Patient Position 09/13/19 1524 Lying BP Location 09/13/19 1524 Left arm FiO2 (%) -- 24hr Min/Max: Temp Min: 36.4 ??C (97.5 ??F) Max: 36.5 ??C (97.7 ??F) Pulse Min: 65 Max: 75 BP Min: 118/83 Max: 139/88 Resp Min: 16 Max: 20 SpO2 Min: 96 % Max: 100 % Most Recent : Vitals: 09/13/19 1836 BP: 124/80 Pulse: Resp: Temp: SpO2: No intake/output data recorded. No intake/output data recorded. Physical exam: General Appearance: Alert, cooperative, no distress, appears stated age, well developed, well nourished, obese Head: Normocephalic, without obvious abnormality, atraumatic Eyes: PERRL, conjunctiva/corneas clear, EOM's intact, fundi benign, both eyes, anicteric Ears: Normal TM's and external ear canals, both ears Nose: Nares normal, septum midline, mucosa normal, no drainage or sinus tenderness Throat: Lips, mucosa, and tongue normal; teeth and gums normal, mucous membranes moist Neck: Supple, symmetrical, trachea midline, no adenopathy; thyroid: No enlargement/tenderness/nodules; no carotid bruit or JVD Back: Symmetric, no curvature, ROM normal, no CVA tenderness Lungs: Clear to auscultation bilaterally, respirations unlabored Cardiovascular: Regular rate and rhythm, S1 and S2 normal, no murmur, rub or gallop, no edema, pulses 2+ and symmetric to all extremeties Abdomen: Soft, non-tender, bowel sounds active all four quadrants, no masses, no organomegaly, non-distended Rectal: Normal tone, no masses or tenderness; Extremities: Extremities normal, atraumatic, no cyanosis or edema, no clubbing Skin: Skin color, texture, turgor normal, no rashes, lesions or bruising Lymph nodes: Cervical, supraclavicular, and axillary nodes normal Neurologic: Alert & oriented x 4, CNII-XII intact. Normal strength, sensation and reflexes throughout Psychosocial: Normal affect and mood Lab/Radiology/Diagnostic Review: Laboratory review: Lab results in the last 24 hours: Recent Results (from the past 24 hour(s)) hCG, urine, qualitative Collection Time: 09/13/19 2:07 PM Result Value Ref Range HCG, ur Negative Negative POCT urinalysis (Clinitek) Collection Time: 09/13/19 2:11 PM Result Value Ref Range Color, ur, POC Yellow Clarity, UA, POC Clear Glucose, ur, POC Negative Bilirubin, ur, POC Negative Ketones, ur, POC Negative Specific gravity, ur, POC 1.025 1.010 - 1.025 Blood, ur, POC Negative pH, ur, POC 6.5 Protein, ur, POC Negative Urobilinogen, ur, POC 2.0 (A) Nitrites, ur, POC Negative Leukocyte esterase, ur, POC Negative Imaging: US Pelvis and Ovaries R/o torsion 09/13/19 - Normal EYOR HYDROGRAPHIC EYOR HYDROGRAPHIC EYOR HYDROGRAPHIC * ED Re-evaluation Note - Berny Montoya MD - 09/13/2019 1:50 PM SURVEYOR HYDROGRAPHIC ED Re-evaluation I have reviewed and confirmed the history and personally examined the patient. I discussed the findings, interventions, and diagnostic testing with the resident. I agree with the findings as presented without exceptions in our respective documentation. Berny Montoya MD 10/15/19 0937 EYOR HYDROGRAPHIC * ED Pre-Arrival Note - Any Zuniga, GLENDA - 09/13/2019 8:25 AM CST Pre-Arrival Note Pt vomiting since last night x10; no uop > 6hrs; coming in for dehydration Any Zuniga, GLENDA EYOR HYDROGRAPHIC documented in this encounter Plan of Treatment Not on file documented as of this encounter Procedures Procedure Name Priority Date/Time Associated Diagnosis Comments XR KUB IP Routine 09/19/2019 12:07 PM SURVEYOR HYDROGRAPHIC MRI BRAIN W WO CONTRAST GOBRAIN IP Routine 09/15/2019 2:38 PM SURVEYOR HYDROGRAPHIC FL UPPER GI SERIES, SINGLE CONTRAST IP Routine 09/15/2019 8:47 AM SURVEYOR HYDROGRAPHIC DRUG SCREEN, URINE Routine 09/14/2019 2:20 PM SURVEYOR HYDROGRAPHIC ECG 12-LEAD Routine 09/14/2019 12:39 PM SURVEYOR HYDROGRAPHIC H. PYLORI UREASE SCREEN (MAGALIE TEST) Routine 09/14/2019 11:03 AM SURVEYOR HYDROGRAPHIC ESOPHAGOGASTRODUODENOSCOPY BIOPSY 09/14/2019 10:18 AM SURVEYOR HYDROGRAPHIC Abdominal pain, unspecified abdominal location Nausea SURGICAL PATHOLOGY Routine 09/14/2019 10:05 AM SURVEYOR HYDROGRAPHIC Abdominal pain, unspecified abdominal location Nausea EGD 09/14/2019 9:59 AM SURVEYOR HYDROGRAPHIC POCT URINALYSIS (CLINITEK) Routine 09/13 2:11 PM SURVEYOR HYDROGRAPHIC HCG, URINE, QUALITATIVE STAT 09/13/19 2:07 PM SURVEYOR HYDROGRAPHIC US PELVIS AND OVARIAN DOPPLE R LIMITED (C) ED 09/13/2019 1:20 PM SURVEYOR HYDROGRAPHIC documented in this encounter Results * XR Kub (09/19/2019 12:07 PM SURVEYOR HYDROGRAPHIC) Anatomical Region Laterality Modality Body, Abdomen N/A Computed Radiogr aphy 09/19/2019 12:1 4 PM SURVEYOR HYDROGRAPHIC Impressions 09/19/2019 12:14 PM SURVEYOR HYDROGRAPHIC Residual barium is seen within the transverse and descending colon. There is no evidence of obstruction. Electronically signed by: Sherly To M.D. Narrative 09/19/2019 12:14 PM SURVEYOR HYDROGRAPHIC EXAMINATION: ??XR KUB HISTORY: ??Evaluate barium clearance from Upper GI last week COMPARISON: ??09/15/2019. Procedure Note Sherly To MD - 09/19/2019 EXAMINATION: XR KUB HISTORY: Evaluate barium clearance from Upper GI last week COMPARISON: 09/15/2019. IMPRESSION: Residual barium is seen within the transverse and descending colon. There is no evidence of obstruction. Electronically signed by: Sherly To M.D. us Elpidio Gimenez MD IMG XR PROCEDURES Final Resul t * MRI Brain W WO Contrast GoBrain (09/15/2019 2:38 PM SURVEYOR HYDROGRAPHIC) Anatomical Region Laterality Modality Head and Neck N/A Magnetic Resonan ce 09/15/2019 3:36 PM SURVEYOR HYDROGRAPHIC Impressions 09/15/2019 4:28 PM SURVEYOR HYDROGRAPHIC Normal MRI of the brain. Dictated by: Jeff Goldberg M.D. The radiology attending physician has personally reviewed this study, and had reviewed and/or edited this written report and agrees with it. Electronically signed by: Igor Mayorga M.D. Narrative 09/15/2019 4:28 PM SURVEYOR HYDROGRAPHIC EXAMINATION: Magnetic resonance imaging (MRI) of the brain and brainstem without and with contrast HISTORY: Persistent nausea and vomiting. TECHNIQUE: Multiplanar multi-weighted MRI of the brain and brainstem was performed without and with intravenous contrast using the general brain protocol. Contrast information: 20 mL Dotarem COMPARISON: None available. FINDINGS: The scalp and calvarium are normal. ?? The superior sagittal sinus demonstrates normal venous flow. ??The corpus callosum is normal in shape and signal intensity. ??The posterior fossa is unremarkable. The pituitary and sella are normal. ??The brainstem and craniocervical junction are unremarkable. Diffusion weighted images reveal no hyperintensities to suggest acute cerebral infarction. ??The susceptibility weighted sequences reveal no evidence of acute or chronic hemorrhage. ??The ventricles are normal in size and position without evidence of hydrocephalus . There are no areas of abnormal contrast enhancement. There is paranasal sinus disease with mild mucosal thickening of the left frontal sinus and moderate mucosal thickening of the ethmoid sinuses. ??The visualized portions of the mastoids are unremarkable. The orbits appear normal. ??Normal flow voids are demonstrated in the carotid arteries and basilar artery. Procedure Note Igor Mayorga III, MD PhD - 09/15/2019 EXAMINATION: Magnetic resonance imaging (MRI) of the brain and brainstem without and with contrast HISTORY: Persistent nausea and vomiting. TECHNIQUE: Multiplanar multi-weighted MRI of the brain and brainstem was performed without and with intravenous contrast using the general brain protocol. Contrast information: 20 mL Dotarem COMPARISON: None available. FINDINGS: The scalp and calvarium are normal. The superior sagittal sinus demonstrates normal venous flow. The corpus callosum is normal in shape and signal intensity. The posterior fossa is unremarkable. The pituitary and sella are normal. The brainstem and craniocervical junction are unremarkable. Diffusion weighted images reveal no hyperintensities to suggest acute cerebral infarction. The susceptibility weighted sequences reveal no evidence of acute or chronic hemorrhage. The ventricles are normal in size and position without evidence of hydrocephalus . There are no areas of abnormal contrast enhancement. There is paranasal sinus disease with mild mucosal thickening of the left frontal sinus and moderate mucosal thickening of the ethmoid sinuses. The visualized portions of the mastoids are unremarkable. The orbits appear normal. Normal flow voids are demonstrated in the carotid arteries and basilar artery. IMPRESSION: Normal MRI of the brain. Dictated by: Jeff Goldberg M.D. The radiology attending physician has personally reviewed this study, and had reviewed and/or edited this written report and agrees with it. Electronically signed by: Igor Mayorga M.D. us Klaudia Meneses MD IMG MRI PROCEDURES Final Re sult * FL Upper GI Series, Single Contrast (09/15/2019 8:47 AM SURVEYOR HYDROGRAPHIC) Anatomical Region Laterality Modality Body N/A Computed Radiogr aphy 09/15/2019 8:57 AM SURVEYOR HYDROGRAPHIC Impressions 09/15/2019 8:58 AM SURVEYOR HYDROGRAPHIC Normal. Dictated by: Sancho Bailey M.D. The radiology attending physician has personally reviewed this study, and had reviewed and/or edited this written report and agrees with it. Electronically signed by: Kayleen Deleon M.D. Narrative 09/15/2019 8:58 AM SURVEYOR HYDROGRAPHIC EXAMINATION: ??FL UPPER GI SERIES, SINGLE CONTRAST HISTORY: ??19-year-old girl with persistent nausea/vomiting COMPARISON: ??None. ??Correlation with CT abdomen and pelvis 07/21/2019. FINDINGS: ??The initial vp director of creative strategy image is unremarkable. The child drank thin barium. There is no abnormal vascular impression upon the esophagus. ??The gastroesophageal junction is normal. There is no evidence of gastric outlet obstruction, and the duodenal-jejunal junction is in its normal left upper quadrant location. There is no evidence of gastroesophageal reflux. Procedure Note Kayleen Deleon MD - 09/15/2019 EXAMINATION: FL UPPER GI SERIES, SINGLE CONTRAST HISTORY: 19-year-old girl with persistent nausea/vomiting COMPARISON: None. Correlation with CT abdomen and pelvis 07/21/2019. FINDINGS: The initial vp director of creative strategy image is unremarkable. The child drank thin barium. There is no abnormal vascular impression upon the esophagus. The gastroesophageal junction is normal. There is no evidence of gastric outlet obstruction, and the duodenal-jejunal junction is in its normal left upper quadrant location. There is no evidence of gastroesophageal reflux. IMPRESSION: Normal. Dictated by: Sancho Bailey M.D. The radiology attending physician has personally reviewed this study, and had reviewed and/or edited this written report and agrees with it. Electronically signed by: Kayleen Deleon M.D. Klaudia Meneses MD [facility] [place] FLUOROSCOPY PROCEDURES Final Result * (ABNORMAL) Drug screen, urine (09/14/2019 2:20 PM SURVEYOR HYDROGRAPHIC) [facility] Drug screen, ur Positive(A) [facility] Comment: The following compounds were detected: ?? Fentanyl, Repeated and verified. Food Safety Director review to follow. Interpretive Data This test detects the presence of approximately 50 substances using LC-tandem mass spectrometry. For a list of specific compounds and detection limits refer to the Lab Test Guide Book. While this technique is highly specific, false-positive and false-negative findings may occur in very rare circumstances. Contact the Food Safety Director financial economist ([phone]) for consultation if needed. This test was developed and its performance characteristics determined by [facility]. It has not been cleared or approved by the U.S. Food and Drug Administration. Current interpretive data was last revised 2016. Director Review Verified [facility] Comment:Upon Medical Directo r review, no additional compounds were detected. Urine 09/14/2019 2:20 PM SURVEYOR HYDROGRAPHIC 09/14/2019 2:25 PM SURVEYOR HYDROGRAPHIC Klaudia Meneses MD LAB URINE ORDERABLES Final Result Performing Organization Address [facility] Co de Phone Number [facility] Department [place] [address] * ECG 12 lead (09/14/2019 12:39 PM SURVEYOR HYDROGRAPHIC) Ventricular Rate EKG/Min 77 BPM [facility] Atrial Rate 77 BPM [facility] CO-Interval (MSEC) 142 ms [facility] QRS-Interval (MSEC) 74 ms [facility] QT-Interval (MSEC) 378 ms [facility] QTc 440 ms [facility] P [place] 38 degrees [facility] R [place] 4 degrees [facility] T [place] 9 degrees [facility] Diagnosis Normal sinus rhythm Normal ECG When compared with ECG of 25-AUG-2019 12:24, No significant change was found Confirmed by MD NISHA, [facility] ([id number]) on 09/14/2019 1:40:56 PM [facility] 09/14/2019 12:3 9 PM SURVEYOR HYDROGRAPHIC 09/14/2019 1:40 PM SURVEYOR HYDROGRAPHIC Klaudia Meneses MD ECG ORDERABLES Final Resul t Performing Organization Address [facility] Co de Phone Number [facility] * H. pylori urease screen (MAGALIE test) Tissue Gastric (09/14/2019 11:03 AM SURVEYOR HYDROGRAPHIC) H. pylori, rapid (MAGALIE) Negative [facility] Comment: MAGALIE is an acronym for 'Campylobacter like organisms'. ??The MAGALIE is a test for urease activity, which is indicative of Helicobacter pylori. ??The presence of ??H. pylori is associated with gastritis and peptic ulcer disease. ??The MAGALIE Test has a sensitivity of 95% and a specificity of 98% in the detection of H. pylori. ??Almost all patients with a positive MAGALIE Test have histologic gastritis. ?? Current interpretive data was last revised on 17. Tissue (Gastric) 09/14/2019 11:03 AM SURVEYOR HYDROGRAPHIC 09/14/2019 11:12 AM SURVEYOR HYDROGRAPHIC Klaudia Meneses MD LAB MICROBIOLOGY - GENERAL ORDERABLES Final Result [facility] Department [place] [address] * Surgical pathology (09/14/2019 10:05 AM SURVEYOR HYDROGRAPHIC) Tissue (Duodenum, Biopsy) 09/14/2019 10:05 AM SURVEYOR HYDROGRAPHIC Tissue (Antrum and/or Body) 09/14/2019 10:05 AM SURVEYOR HYDROGRAPHIC Tissue (Esophageal biopsy) 09/14/2019 10:05 AM SURVEYOR HYDROGRAPHIC Narrative PATHOLOGY [facility] - 09/15/2019 11:17 AM SURVEYOR HYDROGRAPHIC EPIC results best viewed via link to PDF [facility] [place] [address] [facility] FINAL WITH ADDENDUM Patient Name: ?? NINA COYNE Gender: ??F : ??2000 (Age: 19) Address: ??[address] [place] [address] ??[address] Hospital #: ??[id number] Taken:09/14/2019 Received:09/14/2019 Reported: 09/15/2019 Patient Type: [facility] Inpatient ?? Service: Gastro Location: [facility] ??[id number] Physician(s): ??Klaudia Meneses M.D. Johnna Tinajero M.D. Diagnosis: A. Small intestine, duodenum, biopsy ? - No histopathologic abnormality B. Stomach, antrum, biopsy ? - Chronic inactive gastritis ? - Pending H. Pylori stain C. Esophagus, distal, biopsy ? - No histopathologic abnormality pes/09/15/2019 09:37 By this signature, I attest that the above diagnosis is based upon my personal examination of the slides(and/or other material indicated in the diagnosis). Felecia Nicole M.D. Report Electronically Reviewed and Signed Out By ??Felecia Nicole M.D. 09/15/2019 11:17:17 Microscopic Description and Comment: Microscopic examination substantiates the above cited diagnosis. ROSA Jacinto History: The patient is a 19-year-old girl with abdominal pain and nausea. ??Operative procedure: Upper GI endoscopy with biopsy. Specimen(s) Received: A: Duodenum B: Antrum C: Distal Esophagus Gross Description: The specimens are received in three formalin filled containers each labeled with the patient's name. A. ??The first container is received labeled with duodenum and consists of two urena-pink irregular fragment(s) of soft tissue measuring 0.2 x 0.1 by less than 0.1 cm in aggregate. ??Stained hematoxylin. ??Labeled A1. ??Jar 0. B. ??The second container is received labeled with antrum and consists of two urena-pink irregular fragment(s) of soft tissue measuring 0.3 x 0.2 x 0.1 cm in aggregate. ??Stained hematoxylin. ??Labeled B1. ??Jar 0. C. ??The third container is received labeled with distal esophagus and consists of two urena-pink irregular fragment(s) of soft tissue measuring 0.2 x 0.1 by less than 0.1 cm in aggregate. ??Stained hematoxylin. ??Labeled C1. ??Jar 0. mr2/09/14/2019 15:51 Leonie Lao MS, PA (ASC By this signature, I attest that the above diagnosis is based upon my personal examination of the slides(and/or other material). Addenda/Procedures Addendum Ordered: 09/18/2019 Status: Signed Out Addendum Complete: 09/18/2019 By: Felecia Nicole M.D. Addendum Signed Out: 09/20/2019 ?? Addendum Comment Immunohistochemical stain for H. Pylori (IHC; single antibody staining procedure with appropriate control) performed on part B is negative. The final diagnosis remains unchanged. ?? By this signature, I attest that the above diagnosis is based upon my personal examination of the slides(and/or other material indicated in the diagnosis). ?? Felecia Nicole M.D. ??Report Electronically Reviewed and Signed Out By ??Felecia Nicole M.D. ??09/20/2019 10:46:28 ??ROSA Jacinto ? The performance characteristics of some immunohistochemical stains, fluorescence in-situ hybridization tests and immunophenotyping by flow cytometry cited in this report (if any) were determined by the Surgical Pathology Department at [facility] as part of an ongoing quality control analyst program and in compliance with federally mandated regulations drawn from the Clinical Laboratory Improvement Act of 1988 (CLIA '88). ??Some of these tests rely on the use of analyte specific reagents and are subject to specific labeling requirements by the US Food and Drug Administration. ??Such diagnostic tests may only be performed in a facility that is certified by the Department of Health and Human Services as a high complexity laboratory under CLIA '88. ??The FDA has determined that such clearance or approval is not necessary. ??This test is used for clinical purposes. ??It should not be regarded as investigational or for research. ??Nevertheless, federal rules concerning the medical use of analyte specific reagents require that the following disclaimer be attached to the report: This test was developed and its performance characteristics determined by the Surgical Pathology Department of [facility]. ??It has not been cleared or approved by the U. S. Food and Drug Administration. IMAGES AND SCANNED DOCUMENTS, IF INCLUDED, ONLY VIEWABLE IN PDF VERSION OF REPORT Klaudia Meneses MD LAB PATHOLOGY ORDERABLES Fi nal Result PATHOLOGY [facility] [phone] * EGD (09/14/2019 9:59 AM SURVEYOR HYDROGRAPHIC) Anatomical Region Laterality Modality Other Narrative Procedure Note Klaudia Meneses MD - 09/14/2019 9:59 AM CST Patient Name: Nina Coyne Procedure Date: 09/14/2019 9:59 AM Date of : 2000 Admit Type: Inpatient Age: 19 Gender: Female Attending MD: Klaudia Meneses M.D. Procedure: Pediatric Upper GI Endoscopy Providers: Klauida Meneses M.D. (Doctor), Alicia Song RN (Nurse), Marianna Harp, Pediatric Ophthalmologist (Pediatric Ophthalmologist), ErinL. Amber CRNA (Managed Care Nurse), Anabela Hawley M.D. (Managed Care Nurse), Roma Martinez, Fellow (Fellow) Referring MD: Johnna Tinajero M.D. (Referring MD) Requesting Provider: Nehemiah Zhao M.D. (Requesting Physician) Indications: Abdominal pain, Vomiting Medicines: General Anesthesia with ET Tube Procedure: The risk and benefits of the procedure and the sedation options and risks were discussed with the patient and caregiver(s). All questions were answered and informed consent was obtained. Patientidentification and proposed procedure were verified prior to the procedure by the physician, the nurse and the data steward. The time out was done inthe room prior to the start of the procedure. After I obtained informed consent, the scope was passed under direct vision. Throughout the procedure, the patient's blood pressure, pulse, and oxygensaturations were monitored continuously by anesthesia. The GIF [id number] #[id number] endoscope was introduced through the mouth, and advanced to thesecond part of duodenum. The upper GI endoscopy was accomplished without difficulty. The patient tolerated the procedure well. Findings: The examined esophagus was normal. Biopsies were taken with a cold forceps for histology. The entire examined stomach was normal. Biopsies were taken with acold forceps for histology. Obtained sample for MAGALIE test. The examined duodenum was normal. Biopsies were taken with a cold forceps for histology. Impression: - Normal esophagus. Biopsied. - Normal stomach. Biopsied. - Normal examined duodenum. Biopsied. Estimated Blood Loss: Estimated blood loss was minimal. Complications: No immediate complications. Recommendation: - [facility] -Await pathology results. -Follow up visit to be determined at later date. -Hospital staff have a contact number available for emergencies. The signs and symptoms of potential delayed complications were discussed with the patient/caregiver(s). Activities to be determined by primary team. No aspirin, ibuprofen, naproxen, or othernon-steroidal anti-inflammatory drugs for 7 days. Procedure code(s): 09/14/2019 9:59:52 AM Attending Participation: I was present and participated during the entire procedure, including non-li portions. Electronically signed by Dr Klaudia Meneses Klaudia Meneses M.D. 09/14/2019 10:53:52 AM By signing this report, I certify that I, the attending physician,personally performed or supervised the procedure reported above and was physicallypresent during the entire procedure. Roma Martinez, Fellow Number of Addenda: 0 Note Initiated On: 09/14/2019 9:59 AM us Klaudia Meneses MD ENDOSCOPY PROCEDURES Edited Result - Final * (ABNORMAL) POCT urinalysis (Clinitek) (09/13/2019 2:11 PM SURVEYOR HYDROGRAPHIC) Color, ur, POC Yellow [facility] Clarity, UA, POC Clear [facility] Glucose, ur, POC Negative [facility] Bilirubin, ur, POC Negative [facility] Ketones, ur, POC Negative [facility] Specific gravity, ur, POC 1.025 1.010 - 1.025 [facility] Blood, ur, POC Negative [facility] pH, ur, POC 6.5 [facility] Protein, ur, POC Negative [facility] Urobilinogen, ur, POC 2.0(A) [facility] Nitrites, ur, POC Negative [facility] Leukocyte esterase, ur, POC Negative [facility] Urine 09/13/2019 2:11 PM SURVEYOR HYDROGRAPHIC 09/13/2019 2:11 PM SURVEYOR HYDROGRAPHIC Berny Montoya MD LAB POCT ORDERABLES - TATYANA CE Final Result Performing Organization Address [facility] Co de Phone Number [facility] [employer] [place] [address] * hCG, urine, qualitative (09/13/2019 2:07 PM SURVEYOR HYDROGRAPHIC) HCG, ur Negative Negative [facility] Urine 09/13/2019 2:07 PM SURVEYOR HYDROGRAPHIC 09/13/2019 2:17 PM SURVEYOR HYDROGRAPHIC Berny Montoya MD LAB URINE ORDERABLES Final Result Performing Organization Address [facility] [place] [address] * US Pelvis and Ovarian Doppler Limited (R/O Torsion in a pelvis) (09/13/2019 1:20 PM SURVEYOR HYDROGRAPHIC) Anatomical Region Laterality Modality Pelvis N/A Ultrasound 09/13/2019 1:25 PM SURVEYOR HYDROGRAPHIC Impressions 09/13/2019 2:34 PM SURVEYOR HYDROGRAPHIC Normal. Dictated by: Kunal Hdez M.D. , PHD The radiology attending physician has personally reviewed this study, and had reviewed and/or edited this written report and agrees with it. Electronically signed by: Sherly To M.D. Narrative 09/13/2019 2:34 PM SURVEYOR HYDROGRAPHIC EXAMINATION: ??US PELVIS AND OVARIAN DOPPLER LIMITED (C) HISTORY: ??Evaluation for torsion. COMPARISON: ??07/20/2019. FINDINGS: The uterus is adult female in configuration and size. ??The endometrial stripe measures 9 mm. ??The left ovary measures 4 x 2 x 1.3 cm for a volume of 5.7 cc. ??The right ovary measures 1.5 x 1.5 x 4.0 cm for a volume of 4.0 cc. ??There is symmetric flow. There are no dominant cysts or masses. Small follicles are noted bilaterally. Color Doppler evaluation with spectral waveform analysis was performed and shows normal arterial and venous flow in both ovaries. Procedure Note Sherly To MD - 09/13/2019 EXAMINATION: US PELVIS AND OVARIAN DOPPLER LIMITED (C) HISTORY: Evaluation for torsion. COMPARISON: 07/20/2019. FINDINGS: The uterus is adult female in configuration and size. The endometrial stripe measures 9 mm. The left ovary measures 4 x 2 x 1.3 cm for a volume of 5.7 cc. The right ovary measures 1.5 x 1.5 x 4.0 cm for a volume of 4.0 cc. There is symmetric flow. There are no dominant cysts or masses. Small follicles are noted bilaterally. Color Doppler evaluation with spectral waveform analysis was performed and shows normal arterial and venous flow in both ovaries. IMPRESSION: Normal. Dictated by: Kunal Hdez M.D. , PHD The radiology attending physician has personally reviewed this study, and had reviewed and/or edited this written report and agrees with it. Electronically signed by: Sherly To M.D. Akash Isaac MD IMG US PROCEDURES Neris l Result documented in this encounter Visit Diagnoses Diagnosis Abdominal pain, unspecified abdominal location- Primary Nausea Nausea alone Nausea and vomiting, intractability of vomiting not specified, unspecified vomiting type Abdominal pain Abdominal pain, unspecified site Nausea Nausea alone Abdominal pain, unspecified abdominal location Nausea Nausea alone documented in this encounter Admitting Diagnoses Diagnosis Abdominal pain Abdominal pain, unspecified site Nausea Nausea alone documented in this encounter Administered Medications Inactive Administered Medications - up to 3 most recent administrations Medication Order MAR Action Action Date Dose Rate Site acetaminophen (TYLENOL) tablet 650 mg 650 mg, oral, Every 6 hours PRN, 1st line for pain, Starting on Thu09/13/19 at 1815, Maximum dose = 650 mg, Indications: Fever, PainIndications:Fever,Pain Given 09/15/2019 10:24 PM SURVEYOR HYDROGRAPHIC 650 mg Given 09/15/2019 4:27 PM SURVEYOR HYDROGRAPHIC 650 mg Given 09/14/2019 12:04 PM SURVEYOR HYDROGRAPHIC 650 mg fluticasone furoate-vilanterol (BREO ELLIPTA) 100-25 mcg/dose inhaler 1 puff 1 puff, inhalation, Daily, First dose on Thu09/13/19 at 2100, Drug Name: fluticasone furoate-vilanterol (Breo Ellipta) 100-25 mcg/dose diskus, Form: inhaler, Length of Therapy: Indefinite, How soon needed? (normally 72 hrs needed to procure): 0-24 hrs, Reason for Non-Formulary: home med not on formulary Given 09/19/2019 8:02 PM SURVEYOR HYDROGRAPHIC 1 puff Given 09/18/2019 8:09 PM SURVEYOR HYDROGRAPHIC 1 puff Given 09/17/2019 8:00 PM SURVEYOR HYDROGRAPHIC 1 puff lansoprazole (PREVACID) capsule 15 mg 15 mg, oral, 2 times daily, First dose on Thu09/14/19 at 1245, Do not crush, chew, cut, dissolve, open or otherwise manipulate tablet/capsule., Indications: Treatment of Non-Bleeding Gastric DisorderIndications:Treatment of Non-Bleeding Gastric Disorder Given 09/20/2019 8:50 AM SURVEYOR HYDROGRAPHIC 15 mg Given 09/19/2019 8:02 PM SURVEYOR HYDROGRAPHIC 15 mg Given 09/19/2019 9:46 AM SURVEYOR HYDROGRAPHIC 15 mg lidocaine 1% buffered injection 0.1 mL 0.1 mL, subcutaneous, As needed, other, IV insertion, Starting on Thu09/18/19 at 202, Maximum daily dose 0.1 mL/kg Administer immediately prior to procedure. Given 09/18/2019 9:46 PM SURVEYOR HYDROGRAPHIC 0.1 mL Other (Comment) norgestimate-ethinyl estradiol (ORTHO TRI-CYCLEN LO) 0.18/0.215/0.25 mg-25 mcg per tablet 1 tablet 1 tablet, oral, Daily, First dose on Thu09/13/19 at 2100, Drug Name: norgestimate-ethinyl estradiol (orto tri-cyclen lo) 0.18/0.215/0.25 mg-25 mcg per tablet, Form: tablet, Length of Therapy: Indefinite, How soon needed? (normally 72 hrs needed to procure): 0-24 hrs, Reason for Non-Formulary: home med not on formulary Given 09/19/2019 8:02 PM SURVEYOR HYDROGRAPHIC 1 tablet Given 09/18/2019 8:09 PM SURVEYOR HYDROGRAPHIC 1 tablet Given 09/17/2019 8:00 PM SURVEYOR HYDROGRAPHIC 1 tablet nortriptyline (PAMELOR) capsule 10 mg 10 mg, oral, 2 times daily, First dose (after last modification) on Thu09/19/19 at 1430 Given 09/19/2019 8:03 PM SURVEYOR HYDROGRAPHIC 10 mg Given 09/19/2019 2:56 PM SURVEYOR HYDROGRAPHIC 10 mg polyethylene glycol (MIRALAX) packet 17 g 17 g, oral, Daily, First dose on Thu09/19/19 at 0930, Mix 17 grams in 8 ounces of fluid, Indications: constipationIndications:constipation Given 09/20/2019 8:50 AM SURVEYOR HYDROGRAPHIC 17 g Given 09/19/2019 9:47 AM SURVEYOR HYDROGRAPHIC 17 g documented in this encounter Discontinued Medications Medication Sig Discontinue Reason Start Date End Da te fluticasone propionate (FLONASE) 50 mcg/actuation nasal spray Administer 2 sprays into each nostril daily Therapy completed 10/05/2017 09/13/2019 omeprazole (PriLOSEC) 20 mg capsuleIndications:Treat ment of Non-Bleeding Gastric Disorder Take 1 capsule (20 mg total) by mouth 2 (two) times a day Reorder 08/18/2019 09/20/2019 escitalopram (LEXAPRO) 20 mg tablet Take 1 tablet (20 mg total) by mouth daily Stop Taking at Discharge 09/02/2019 09/20/2019 ondansetron ODT (ZOFRAN-ODT) 4 mg disintegrating tabletIndications:Nausea Take 1 tablet (4 mg total) by mouth every 6 (six) hours as needed for nausea or vomiting Stop Taking at Discharge 09/05/2019 09/20/2019 documented as of this encounter Active and Recently Administered Medications Times are shown in SURVEYOR HYDROGRAPHIC. Scheduled Medication Order 09/18/2019 09/19/2019 09/20/2019 escitalopram (LEXAPRO) tablet 10 mg (CANCELED) 10 mg, oral, Daily, First dose (after last modification) on Thu09/15/19 at 2100 2008 (Given - Provider: Bibiana Hernandez RN) fluticasone furoate-vilanterol (BREO ELLIPTA) 100-25 mcg/dose inhaler 1 puff 1 puff, inhalation, Daily, First dose on Thu09/13/19 at 2100, Drug Name: fluticasone furoate-vilanterol (Breo Ellipta) 100-25 mcg/dose diskus, Form: inhaler, Length of Therapy: Indefinite, How soon needed? (normally 72 hrs needed to procure): 0-24 hrs, Reason for Non-Formulary: home med not on formulary 2008 (Given - Provider: Bibiana Hernandez RN) 2001 (Given - Provider: Carolina Ram RN) lansoprazole (PREVACID) capsule 15 mg 15 mg, oral, 2 times daily, First dose on Thu09/14/19 at 1245, Do not crush, chew, cut, dissolve, open or otherwise manipulate tablet/capsule., Indications: Treatment of Non-Bleeding Gastric Disorder 0851 (Given - Provider: Nina Saleh RN)2008 (Given - Provider: Bibiana Hernandez RN) 0946 (Given - Provider: Nina Saleh RN)2001 (Given - Provider: Carolina Ram RN) 0850 (Given - Provider: Elpidio Mcintyre RN) norgestimate-ethinyl estradiol (ORTHO TRI-CYCLEN LO) 0.18/0.215/0.25 mg-25 mcg per tablet 1 tablet 1 tablet, oral, Daily, First dose on Thu09/13/19 at 2100, Drug Name: norgestimate-ethinyl estradiol (orto tri-cyclen lo) 0.18/0.215/0.25 mg-25 mcg per tablet, Form: tablet, Length of Therapy: Indefinite, How soon needed? (normally 72 hrs needed to procure): 0-24 hrs, Reason for Non-Formulary: home med not on formulary 2008 (Given - Provider: Bibiana Hernandez RN) 2001 (Given - Provider: Carolina Sol [place], RN) nortriptyline (PAMELOR) capsule 10 mg (CANCELED) 10 mg, oral, Nightly, First dose on Thu09/16/19 at 2100 2008 (Given - Provider: Bibiana Hernandez RN) nortriptyline (PAMELOR) capsule 10 mg 10 mg, oral, 2 times daily, First dose (after last modification) on Thu09/19/19 at 1430 1456 (Given - Provider: Nhi Ramirez RN)2002 (Given - Provider: Carolina Ram RN) polyethylene glycol (MIRALAX) packet 17 g 17 g, oral, Daily, First dose on Thu09/19/19 at 0930, Mix 17 grams in 8 ounces of fluid, Indications: constipation 0947 (Given - Provider: Nina Saleh RN) 0850 (Given - Provider: Elpidio Mcintyre RN) Continuous Medication Order 09/18/2019 09/19/2019 09/20/2019 dextrose 5% and sodium chloride 0.9% with potassium chloride 20 mEq/L infusion (premix) (CANCELED) 1.5 L/m2/day ? 2.13 m2 (133.125 mL/hr, rounded to 133.1 mL/hr), intravenous, Continuous, Starting on Thu09/13/19 at 1816 0208 (Rate/Dose Verify - Provider: Bibiana Hernandez RN)0545 (New Bag - Provider: Bibiana Hernandez RN) dextrose 5% and sodium chloride 0.9% with potassium chloride 20 mEq/L infusion (premix) (CANCELED) 50 mL/hr, intravenous, Continuous, Starting on Thu09/18/19 at 1300 1230 (Rate/Dose Change - Provider: Nina Saleh RN)1316 (New Bag - Provider: Nina Saleh RN) 0104 (New Bag - Provider: Bibiana Hernandez RN)0205 (Rate/Dose Verify - Provider: Bibiana Hernandez RN)0405 (Rate/Dose Verify - Provider: Bibiana Hernandez RN)0545 (Rate/Dose Verify - Provider: Bibiana Hernandez RN)1028 (New Bag - Provider: Nina Saleh RN)2001 (New Bag - Provider: Carolina Ram, GLENDA)2117 (New Bag - Provider: Carolina Ram RN) 0544 (New Bag - Provider: Carolina Ram RN)0702 (Due: Rate/Dose Change) PRN Medication Order 09/18/2019 09/19/2019 09/20/2019 acetaminophen (TYLENOL) tablet 650 mg 650 mg, oral, Every 6 hours PRN, 1st line for pain, Starting on Thu09/13/19 at 1815, Maximum dose = 650 mg, Indications: Fever, Pain lidocaine 1% buffered injection 0.1 mL 0.1 mL, subcutaneous, As needed, other, IV insertion, Starting on Thu09/18/19 at 2025, Maximum daily dose 0.1 mL/kg Administer immediately prior to procedure. 2145 (Given - Provider: Bibiana Hernandez RN - Comment: IV) documented in this encounter Orders Medications Ordered That Jonny ht Not Have Been Administered Count Last Ordered Date First Ordered Date nortriptyline (PAMELOR) capsule 10 mg 2 09/16/2019 polyethylene glycol (MIRALAX) packet 17 g 1 09/19/2019 dextrose 5% and sodium chlor gabino 0.9% with potassium chloride 20 mEq/L infusion (premix) 2 09/18/2019 09/13/2019 lidocaine 1% buffered injection 0.1 mL 2 09/13/2019 barium sulfate (LIQUID POLIB AR PLUS) 105 % (w/v), 58 % (w/w) suspension 400 mL 1 09/15/2019 cyproheptadine (PERIACTIN) 4 mg tablet 4 mg 1 09/15/2019 escitalopram (LEXAPRO) tablet 10 mg 1 09/15 gadoterate meglumine (DOTARE M) 0.5 mmol/mL injection 20 mL 1 09/15/2019 albuterol 2.5 mg/0.5 mL nebu lizer solution - ADS Override Pull 1 09/14/2019 albuterol 2.5 mg/0.5 mL nebu lizer solution 2.5 mg 1 09/14/2019 Lactated Ringer's (LR) infusion 1 0 lansoprazole (PREVACID) capsule 15 mg 1 ondansetron (ZOFRAN) injection 4 mg 1 09/14 acetaminophen (TYLENOL) tablet 650 mg 1 escitalopram (LEXAPRO) tablet 20 mg 1 09/13 fluticasone furoate-vilanter ol (BREO ELLIPTA) 100-25 mcg/dose inhaler 1 puff 1 09/13/2019 norgestimate-ethinyl estradi ol (ORTHO TRI-CYCLEN LO) 0.18/0.215/0.25 mg-25 mcg per tablet 1 tablet 1 09/13/2019 ondansetron ODT (ZOFRAN-ODT) disintegrating tablet 4 mg 2 09/13/2019 Diet Count Last Ordered Date First Orde red Date PEDIATRIC DISCHARGE DIET 1 09/14/2019 Nursing Count Last Ordered Date First Orde red Date DISCHARGE INSTRUCTIONS 1 09/20/2019 DISCHARGE ACTIVITY 1 09/14/2019 DISCHARGE CALL PROVIDER 1 09/14/2019 MEASURE HEIGHT AND LENGTH 1 09/13/2019 MISCELLANEOUS NURSING CARE ORDER (SPECIFY) 1 09/13/2019 NURSING COMMUNICATION 1 09/13/2019 STRICT INTAKE AND OUTPUT 1 09/13/2019 WEIGH PATIENT 1 09/13/2019 Consult Count Last Ordered Date First Orde red Date IP CONSULT TO NUTRITION SERVICES 1 09/17/19 20 IV Count Last Ordered Date First Orde red Date INSERT PERIPHERAL IV 1 09/13/2019 Case Request Count Last Ordered Date First Orde red Date CASE REQUEST GI 1 09/13/2019 ADT Patient Update Count Last Ordered Date Firs t Ordered Date ED IP DECISION TO ADMIT 1 09/13/2019 documented in this encounter Care Teams Weigh Boss Relationship Specialty Start Date End Date Johnna Tinajero MD [address] [address] PCP - General Pediatrics 07/19/19 01/26/23 Johnna Tinajero MD [address] [address] 07/19/19 documented as of this encounter
--- OUTSIDE RECORDS SUMMARY | 2024-08-28 02:15 | XMS_ITS | Encounter Summary ---
Author Organization [facility] Address [address] [place] [phone] Phone Care Team Providers Care Executive Producer Promos Name Role Phone Johnna Tinajero MD Primary Care Provider + Johnna Tinajero MD Unavailable [phone] Encounter Details Date Type Department Care Team (Late st Contact Info) Description 10/13/2019 Telephone [facility] [address] [place] [address] Johnna Tinajero MD [address] [place] [id number] Social History Tobacco Use Types Packs/Day Years Used Date Smoking Tobacco: Never PHQ-2 Answer Date Recorded PHQ-2 Score 4 06/28/2019 Comments No Sex and Gender Information Value Date Recorded Sex Assigned at Not on file Legal Sex 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 Still having vomiting most days since Thursday (two days ago). Initially seemed better after increased nortriptyline to 30 mg Neurology called today to schedule an appt for October Missed school yesterday, going to school most days but going in late. She and mom are frustrated but hanging in there I told mom I spoke with the psychiatrist from [place] [facility] yesterday, the doctor and I talked about alternative medications. Since Nina improved on Lexapro wrt anxiety we'll restart at 10mg daily and go up to 20 mg in another 4-5 days; mom to call if not tolerating or if concerns. [facility] did call mom about a psychiatry referral which she will pursue, and mom is waiting to hear back today from GI about ? Increase in nortriptyline dose. MANAGER documented in this encounter Plan of Treatment Not on file documented as of this encounter Visit Diagnoses Diagnosis Anxiety- Primary Anxiety state, unspecified documented in this encounter Care Teams Executive Producer Promos Relationship Specialty Start Date End Date Johnna Tinajero MD [address] [place] [id number] PCP - General Pediatrics 07/19/19 01/26/23 Johnna Tinajero MD [address] [place] [id number] 07/19/19 documented as of this encounter
--- OUTSIDE RECORDS SUMMARY | 2024-08-28 02:15 | XMS_ITS | Encounter Summary ---
Author Organization [facility] Address [address] [place] [address] Care Team Providers Care Home Sales Service Professional Name Role Phone Johnna Tinajero MD Primary Care Provider + Jhonna Tinajero MD Unavailable [phone] Reason for Visit * Reason Comments Syncope Neck Pain Chest Wall Pain Encounter Details Date Type Department Care Team (Late st Contact Info) Description 10/24/2019 1:05 AM ASSISTANT PROFESSOR OF COMMUNICATION - 10/24/2019 4:25 AM [facility] Emergency [facility] [place] [address] Sharee Don MD [address] [place] [address] [address] [place], [place] [id number] Syncope, unspecified syncope type (Primary Dx); Polypharmacy Discharge Disposition: Discharge to home or self care Social History Tobacco Use Types Packs/Day Years Used Date Smoking Tobacco: Never PHQ-2 Answer Date Recorded PHQ-2 Score 4 06/28/2019 Comments No Sex and Gender Information Value Date Recorded Sex Assigned at Not on file Legal Sex 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 ASSISTANT PROFESSOR OF COMMUNICATION Gender Identity Not on file Sexual Orientation Not on file documented as of this encounter Last Filed Vital Signs Vital Sign Reading Time Taken Comments Blood Pressure 123/88 10/24/2019 2:16 AM ASSISTANT PROFESSOR OF COMMUNICATION Pulse 82 10/24/2019 4:04 AM ASSISTANT PROFESSOR OF COMMUNICATION Temperature 36.5 ??C (97.7 ??F) 10/24/2019 4:04 AM CS T Respiratory Rate 10/24/2019 4:04 AM ASSISTANT PROFESSOR OF COMMUNICATION Oxygen Saturation 100% 10/24/2019 12: 17 AM ASSISTANT PROFESSOR OF COMMUNICATION Inhaled Oxygen Concentration - - Weight 101.6 kg (223 lb 15.8 oz) 2019 12:16 AM ASSISTANT PROFESSOR OF COMMUNICATION Height - - Body Mass Index - - documented in this encounter Discharge Diagnoses Diagnosis Syncope and collapse - SYNCOPE AND COLLAPSE 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 Please follow-up with your doctor in regards to today's visit and call GI if they do not call you in the next few days to schedule your next appointmentwith them as well. STANT PROFESSOR OF COMMUNICATION STANT PROFESSOR OF COMMUNICATION * Attachments The following attachments cannot be sent through Care Everywhere. * Dizziness or Syncope (Fainting) During ([place]) documented in this encounter Medications at Time [...] 3 nortriptyline (PAMELOR) 10 mg capsule Take 2 capsules (20 mg total) by mouth 2 (two) times a day Take 2 in afternoon and 2 at bedtime 120 capsule 11 10/17/2019 0 omeprazole (PriLOSEC) 20 mg capsuleIndicatio ns:Treatment of Non-Bleeding Gastric Disorder Take 1 capsule (20 mg total) by mouth 2 (two) times a day 60 capsule 11 09/20/2019 0 polyethylene glycol (MIRALAX) 17 gram/dose powderIndication s:constipation Take 17 g by mouth daily 510 g 1 09/20/2019 0 documented as of this encounter Discharge Disposition Disposition Code Departure Means Destination Discharge to home or self care documented in this encounter ED Notes * Leslye Sweeney RN - 10/24/2019 3:32 AM CST Attempted to get urine from pt, pt stated she just used the bath room and would try again in a few mins Leslye Sweeney RN 10/24/19 0333 STANT PROFESSOR OF COMMUNICATION * Susi Porter MD - 10/24/2019 2:26 AM CST HPI Chief Complaint Patient presents with ??? Syncope ??? Neck Pain ??? Chest Wall Pain 19yoF extensive gi w/u followed by them for ongoing longstanding n/v s/p egd, pepci, nexium since 2018 still with 1-2 x emesis daily so that she now eats smaller meals and was recently this past wk uptitrated on her nortriptylline from 30mg to 40mg (about 4 to 5 days ago) which stopped her vomiting completely but has also increased the dizziness side effect. Pt felt so dizzy yesterday that she went to stand up slowly and despite this syncopized and fell face forward onto carpet from standing height. Sister witnessed this. No seizure like activity, no tongue biting, no urinary incontinence, no recent illnesses, no amnesia, no headache, no f/c, no neck stiffness. Does endorse R lateral neck / trapezius muscle ache but not wounds and no other symptoms. Denies chance she's . No cardiac hx and no fhx of early cardiac . No fhx of clotting disorders. Pt is also on lexapro and took that medication as her usual as well. No other symptoms. Patient History Patient Active Problem List Diagnosis Date Noted ??? Mild malnutrition (CMS/HCC) 09/15/2019 ??? Nausea 08/15/2019 ??? Abdominal pain 07/20/2019 ??? Asthma [...] sinus rhythm with sinus arrhythmia with short NV ??? Anxiety 07/20/2019 ??? Asthma ??? Nausea [...] smoke exposure : (Added by TW Conv) Review of Systems Review of Systems Constitutional: Negative for chills and fever. HENT: Negative for congestion, rhinorrhea and sore throat. Eyes: Negative for visual disturbance. Respiratory: Negative for cough and shortness of breath. Cardiovascular: Negative for chest pain and leg swelling. Gastrointestinal: Negative for abdominal pain, diarrhea, nausea and vomiting. Genitourinary: Negative for dysuria and hematuria. Musculoskeletal: Negative for myalgias. Skin: Negative for rash. Neurological: Positive for syncope. Negative for light-headedness and headaches. Psychiatric/Behavioral: Negative for confusion. All other systems reviewed and are negative. Physical Exam ED Triage Vitals Temp Pulse Resp BP SpO2 10/24/19 0017 10/24/19 0017 10/24/19 0017 10/24/19 0017 10/24/1916 36.9 ??C (98.4 ??F) 98 24 (!) 140/104 100 % Temp src Heart Rate Source Patient Position BP Location FiO2 (%) 10/24/19 0017 10/24/19 0213 10/24/192 -- -- Temporal Monitor Lying Physical Exam Vitals signs and nursing note reviewed. Constitutional: General: She is not in acute distress. Appearance: Normal appearance. She is well-developed. She is obese. She is not toxic-appearing. HENT: Head: Normocephalic and atraumatic. Right Ear: External ear normal. Left Ear: External ear normal. Nose: Nose normal. Mouth/Throat: Mouth: Mucous membranes are moist. Eyes: General: Right eye: No discharge. Left eye: No discharge. Extraocular Movements: Extraocular movements intact. Conjunctiva/sclera: Conjunctivae normal. Pupils: Pupils are equal, round, and reactive to light. Neck: Musculoskeletal: Normal range of motion and neck supple. Cardiovascular: Rate and Rhythm: Normal rate and regular rhythm. Pulses: Normal pulses. Heart sounds: Normal heart sounds. Pulmonary: Effort: Pulmonary effort is normal. Breath sounds: Normal breath sounds. Abdominal: General: Bowel sounds are normal. Palpations: Abdomen is soft. Tenderness: There is no abdominal tenderness. There is no guarding or rebound. Musculoskeletal: Normal range of motion. General: No swelling or tenderness. Right lower leg: No edema. Left lower leg: No edema. Comments: Able to ambulate and negative rhomberg's. No ataxia nor dysmetria. No focal neuro deficits. Skin: General: Skin is warm and dry. Findings: No rash. Neurological: General: No focal deficit present. Mental Status: She is alert and oriented to person, place, and time. Cranial Nerves: No cranial nerve deficit. Sensory: No sensory deficit. Motor: No weakness. Coordination: Coordination normal. Comments: Grossly non-focal Psychiatric: Behavior: Behavior normal. MDM MDM:19yoF h/o recent uptitration of nortriptyline for n/v by GI but also already on lexapro and nexium here for syncopal event with lightheadedness prior to episode s/p po pedialyte by mom. Called giand confirmed in s/o normal ekg w/o aarhythmia or prolonged qt, most likely is medication side effect to warrant going back down on medication dosing. They will pursue further gi w/u to include gastric emptying and see her in f/u for her gi symptoms while also education to patient on preventing dehydration along with medication adverse side effects or if combined with any other sedating antihistamine type substance how this could be dangerous for pt to have repeat of yesterday's episode. Dc home with return precautions, f/u to pcp in regards to today's visit. Also r/o with hcg. No other symptoms to precipitate further w/u of labs/lytes. ED Course as of Oct 24 350 Time: 10/24 145 Comment: 19yo who presents with syncope, fell forward onto carpeted floor face forward. +LOC. Currently complaining of R sided neck pain. She is currently on nortryptiline that was recently increasedfor long hisory of N/V 1-2 x per day. By: Livier Munoz MD Final diagnoses: Syncope, unspecified syncope type Polypharmacy Susi Porter MD Resident 10/24/19350 Cosigned by Sharee Don MD at 10/28/2019 3:19 AM ASSISTANT PROFESSOR OF COMMUNICATION STANT PROFESSOR OF COMMUNICATION STANT PROFESSOR OF COMMUNICATION Associated attestation - Arian, Sharee Velasquez MD - 10/28/2019 3:19 AM ASSISTANT PROFESSOR OF COMMUNICATION I have seen and examined the patient on 10/24/2019 . I agree with the findings and plan of care as documented in the resident's note. 19y/o F presents with dizziness that began after starting increased doses of nortriptlyine for intractable nausea/vomiting. Pt has had extensive GI work-up, pending Neuro eval but with known normal head imaging. Normal orthostatic VS. Discussed with GI. Timing of new symptoms coincides with medication increase, so most likely medication side effect. WIll titrate down, follow-up with GI and neuro as an outpatient. Discharged home. * Belgica Simmons RN - 10/24/2019 1:05 AM CST Bed: ED1-21 Expected date: Expected time: Means of arrival: Car Comments: Belgica Simmons RN 10/24/19 0105 STANT PROFESSOR OF COMMUNICATION * Rachel Thurman RN - 10/24/2019 12:10 AM CST Pt reports passing out around 2200; unknown LOC (states she cannot remember); sister witnessed fall. Pt c/o neck pain. Denies vomiting since fall, but some dizziness. Lexapro prior to arrival. Ibuprofen in AM. Decreased PO, good UOP. Pt also states she has L rib pain thinking related to her fall. STANT PROFESSOR OF COMMUNICATION STANT PROFESSOR OF COMMUNICATION documented in this encounter Plan of Treatment Not on file documented as of this encounter Procedures Procedure Name Priority Date/Time Associated Diagnosis Comments ECG 12-LEAD Routine 10/24/2019 2:51 AM ASSISTANT PROFESSOR OF COMMUNICATION documented in this encounter Results * ECG 12 lead (10/24/2019 2:51 AM ASSISTANT PROFESSOR OF COMMUNICATION) Ventricular Rate EKG/Min 83 BPM [facility] Atrial Rate 83 BPM [facility] NV-Interval (MSEC) 136 ms [facility] QRS-Interval (MSEC) 74 ms [facility] QT-Interval (MSEC) 394 ms [facility] QTc 463 ms [facility] P [place] 21 degrees [facility] R [place] -3 degrees [facility] T [place] 6 degrees [facility] Diagnosis Poor data quality, interpretation may be adversely affected Normal sinus rhythm Low voltage QRS in lateral chest leads Prolonged QT Abnormal ECG When compared with ECG of 14-SEP-2019 12:39, QT has lengthened Confirmed by NARCISO VALENZUELA MD, CASEY ([id number]) on 10/24/2019 6:40:08 AM [facility] 10/24/2019 2:51 AM ASSISTANT PROFESSOR OF COMMUNICATION 10/24/2019 6:40 AM ASSISTANT PROFESSOR OF COMMUNICATION Susi Porter MD ECG ORDERABLE S Final Result [facility] documented in this encounter Visit Diagnoses Diagnosis Syncope, unspecified syncope type- Primary Polypharmacy Issue of repeat prescriptions documented in this encounter Care Teams Home Sales Service Professional Relationship Specialty Start Date End Date Johnna Tinajero MD [address] [place] [id number] PCP - General Pediatrics 07/19/19 01/26/23 Johnna Tinajero MD [address] [place] [id number] 07/19/19 documented as of this encounter
--- OUTSIDE RECORDS SUMMARY | 2024-08-28 02:15 | XMS_ITS | Encounter Summary ---
Author Organization [facility] Address [address] [place] [address] Phone Care Team Providers Care Operations Support Coordinator Name Role Phone Johnna Tinajero MD Primary Care Provider + Johnna Tinajero MD Unavailable Encounter Details Date Type Department Care Team (Late st Contact Info) Description 10/05/2019 1:30 PM LEGAL DOCUMENT SPECIALIST Office Visit [facility] Pediatric Gastroenterology [facility] 2nd [place] [address] [place] [address] Florina Colby MD [address] [place] [address] [place], [place] [id number] Abdominal pain, unspecified abdominal location (Primary Dx); Other migraine without status migrainosus, not intractable; Obesity without serious comorbidity with body mass index (BMI) greater than 99th percentile for age in pediatric patient, unspecified obesity type; Nausea Social History Tobacco Use Types Packs/Day Years Used Date Smoking Tobacco: Never PHQ-2 Answer Date Recorded PHQ-2 Score 4 06/28/2019 Comments No Sex and Gender Information Value Date Recorded Sex Assigned at Not on file Legal Sex 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 LEGAL DOCUMENT SPECIALIST Gender Identity Not on file Sexual Orientation Not on file documented as of this encounter Last Filed Vital Signs Vital Sign Reading Time Taken Comments Blood Pressure 118/80 10/05/2019 1:32 PM LEGAL DOCUMENT SPECIALIST Pulse 90 10/05/2019 1:32 PM LEGAL DOCUMENT SPECIALIST Temperature 36.5 ??C (97.7 ??F) 10/05/2019 1:32 PM CS T Respiratory Rate 20 10/05/2019 1:32 PM LEGAL DOCUMENT SPECIALIST Oxygen Saturation - - Inhaled Oxygen Concentration - - Weight 100.8 kg (222 lb 3.6 oz) 10/05/2019 1:32 PM LEGAL DOCUMENT SPECIALIST Height 162.5 cm (5' 3.98 ) 10/05/2019 1:32 PM CS T Body Mass Index 38.17 10/05/2019 1:32 PM LEGAL DOCUMENT SPECIALIST Body Mass Index Percentile 98.76% 10/05/2019 1:3 2 PM LEGAL DOCUMENT SPECIALIST Growth Chart: [facility] (Girls, 2- 20 Years) documented in this encounter Patient Instructions * Patient Instructions* Florina Colby MD - 10/05/2019 1:30 PM LEGAL DOCUMENT SPECIALIST - Referral to Neurology - Increase Nortriptyline to 30 mg - Consider trial with erythromycin for delayed gastric emptying or obtain a gastric emptying study - Will discuss restarting Lexapro with Dr. Johnna Tinajero L DOCUMENT SPECIALIST L DOCUMENT SPECIALIST L DOCUMENT SPECIALIST documented in this encounter Progress Notes * Florina Colby MD - 10/05/2019 1:30 PM CST 10/05/2019 Nina Elvin Coyne 2000 We saw Nina today for a follow-up visit in the Pediatric Gastroenterology, Hepatology & Nutrition office at [facility]. Nina is a 19 y.o. female with vomiting and nausea. Shewas accompanied by her mother. Her last visit was on 09/09/2019. The history is from them and previous records including prior notes, laboratory results, endoscopic reports, biopsy results, radiologic results and radiologic images. HPI Nina is a 19 yo female with a pmh of asthma, ovarian cyst, anxiety presenting for follow up from hospital visit for evaluation of abdominal pain and nausea/vomiting. Interval History: Since her discharge she was she was slowly weaned off lexapro and continued on Nortriptyline. She is currently on Nortriptyline 20mg daily. She reports improvement for the first week after discharge,but in the last week she had a reoccurrence of nausea and vomiting. Symptoms occur with oral intake. She has about 1-2 episodes of emesis daily (although does not occur daily). Episodes are NBNB. Shereports limited abdominal pain. Since stopping lexapro she has increased anxiety. Mother would liketo restart the lexapro. She does think that the Nortriptyline has helped with nausea overall. No other recent illness. No fevers, diarrhea, constipation, fever or rash. History of Present Illness: Symptoms began??in July 2019 with abdominal pain. She was admitted with a right ovarian cyst thought to be the source of her abdominal pain. Abdominal pain has since improved however??and she hasseen NIGHT MONITOR in clinic who felt that the pain was likely from the cyst but would not explain the persistent nausea. From July on she has had daily nausea with vomiting 1-2x per day this month. She was seen by GI??who started prilosec without improvement. She denies marijuana use. A CT on 07/21 showed the ovarian cyst in 2018. She was admitted to the hospital from 09/13-09/20. On 09/14 she underwent esophogastroduodenoscopy which was visually unremarkable. Pathology showed chronic inactive gastritis. An ECG was within normal limits with no concern for QT prolongation. UGI series on 09/14 was wnl. Patient was started on lexapro wean to 10mg while inpatient to rule out medication as cause of nausea. MRI Brain on 09/15 was normal. Nortriptyline was started on 09/16. Past medical, surgical, family and social history reviewed and confirmed. Allergies Allergen Reactions ??? Dog Dander Hives Reaction: HIVES, ??? Penicillins Other (See comments) and Rash As a child Reaction: NAUSEA;, As a child No orders of the defined types were placed in this encounter. Review of Systems Constitutional: Negative for activity change, appetite change, chills, fever and unexpected weight change. HENT: Negative for congestion, ear pain, hearing loss, mouth sores, nosebleeds, rhinorrhea, sinus pain, sneezing, sore throat, trouble swallowing and voice change. Eyes: Negative for pain, discharge and visual disturbance. Respiratory: Negative for cough, chest tightness and shortness of breath. Cardiovascular: Negative for chest pain and leg swelling. Gastrointestinal: Positive for abdominal pain, nausea and vomiting. Negative for abdominal distention, blood in stool, constipation and diarrhea. Endocrine: Negative for cold intolerance, polydipsia and polyuria. Genitourinary: Negative for decreased urine volume, dysuria, enuresis and hematuria. Musculoskeletal: Negative for arthralgias, back pain and joint swelling. Skin: Negative for color change and rash. Allergic/Immunologic: Negative for environmental allergies, food allergies and immunocompromised state. Neurological: Positive for headaches. Negative for seizures and light-headedness. Hematological: Negative for adenopathy. Does not bruise/bleed easily. Psychiatric/Behavioral: Negative for sleep disturbance and suicidal ideas. The patient is nervous/anxious. BP 118/80 Pulse 90 Temp 36.5 ??C (97.7 ??F) Resp 20 Ht 162.5 cm (5' 3.98 ) Wt 100.8 kg (222 lb 3.6 oz) BMI 38.17 kg/m?? Physical Exam Constitutional: Appearance: She is well-developed. She is obese. HENT: Head: Normocephalic and atraumatic. Nose: Nose normal. Eyes: Conjunctiva/sclera: Conjunctivae normal. Pupils: Pupils are equal, round, and reactive to light. Neck: Musculoskeletal: Normal range of motion. Cardiovascular: Rate and Rhythm: Normal rate and regular rhythm. Pulses: Normal pulses. Heart sounds: Normal heart sounds. Pulmonary: Effort: Pulmonary effort is normal. Breath sounds: Normal breath sounds. Abdominal: General: Bowel sounds are normal. There is no distension. Palpations: Abdomen is soft. There is no mass. Tenderness: There is no tenderness. There is no guarding or rebound. Hernia: No hernia is present. Musculoskeletal: Normal range of motion. Skin: General: Skin is warm and dry. Capillary Refill: Capillary refill takes less than 2 seconds. Findings: No rash. Neurological: Mental Status: She is alert. Assessment 1. Abdominal pain, unspecified abdominal location 2. Other migraine without status migrainosus, not intractable 3. Obesity without serious comorbidity with body mass index (BMI) greater than 99th percentile for age in pediatric patient, unspecified obesity type Nina is a 19 yo female with a pmh of asthma, ovarian cyst, anxiety presenting for follow up from hospital visit for evaluation of abdominal pain and nausea/vomiting. Symptoms appear to be functional, given workup thus far has been negative; this includes EGD, MRI Brain, CBC, CMP, TSH, lipase, H pylori, and EBV. There has no serology testing for celiac disease (although biopsies from EGD do not support this diagnosis). Further evaluation by neurology for management of headaches would be helpful. May also consider pseudotumor cerebri given the headaches and vomiting. Management of her anxiety medication is complicated. She does notice improvement with the Nortriptyline for the nausea. Nevertheless, the doses that we are using for GI management are not enough to control her anxiety. Therefore, options include increasing Nortriptyline to doses more consistent forthe management of anxiety and depression. Restarting Lexapro, which increases the risk for serotonin syndrome, which is typically not a medication combination we feel comfortable managing this combination of medications. Additionally, if we wanted to do a trial of erythromycin for delayed gastric emptying, than would be more hesitant if she is restarted on Lexapro due to the risk of increasing QT interval. Plan - Referral to Neurology for the evaluation of headaches - Increase Nortriptyline to 30 mg - Consider trial with erythromycin for delayed gastric emptying or obtain a gastric emptying study - Will discuss restarting Lexapro with Dr. Johnna Tinajero - Continue current diet. The above considerations were reviewed with the patient in detail. Return in about 6 months (around 04/04/2020). Florina Colby MD Cosigned by Maureen Weeks MD at 10/07/2019 12:25 PM LEGAL DOCUMENT SPECIALIST L DOCUMENT SPECIALIST L DOCUMENT SPECIALIST Associated attestation - Maureen Weeks MD - 10/07/2019 12:25 PM LEGAL DOCUMENT SPECIALIST I have seen and examined the patient. I agree with the findings and plan of care as documented in the resident/fellow's note. documented in this encounter Plan of Treatment Not on file documented as of this encounter Visit Diagnoses Diagnosis Abdominal pain, unspecified abdominal location- Primary Other migraine without status migrainosus, not intractable Obesity without serious comorbidity with body mass index (BMI) greater than 99th percentile for age in pediatric patient, unspecified obesity type Nausea Nausea alone documented in this encounter Care Teams Operations Support Coordinator Relationship Specialty Start Date End Date Johnna Tinajero MD [address] [address] PCP - General Pediatrics 07/19/19 01/26/23 Johnna Tinajero MD [address] [address] 07/19/19 documented as of this encounter
--- OUTSIDE RECORDS SUMMARY | 2024-08-28 02:15 | XMS_ITS | Encounter Summary ---
Author Organization [facility] Address [address] [place] [address] [address] [place] [address] Phone Care Team Providers Care Photolithographer Name Role Phone Johnna De La Cruz MD Primary Care Provider + Johnna De La Cruz MD Unavailable [phone] Encounter Details Date Type Department Care Team (Late st Contact Info) Description 09/23/2019 Telephone [facility] [employer] [address] [place] [address] Johnna De La Cruz MD [address] [place] [address] Social History Tobacco Use Types Packs/Day Years Used Date Smoking Tobacco: Never PHQ-2 Answer Date Recorded PHQ-2 Score 4 06/28/2019 Comments No Sex and Gender Information Value Date Recorded Sex Assigned at Not on file Legal Sex 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 SENIOR TERADATA DEVELOPER Gender Identity Not on file Sexual Orientation Not on file documented as of this encounter Miscellaneous Notes * Telephone Encounter - Aileen Garcia - 09/23/2019 10:35 AM CST PHONE CALL TO NINA'S MOM RETURNING HER CALL TO CANCEL TOMORROW Thursday APPT. PER MOM SHE IS DOINGMUCH BETTER NEEDING TO GET BACK TO NORMAL SCHOOL STUFF SINCE MISSED SO MUCH. WILL KEEP APPT WITH JOSSELIN SUAZO. KNOWS DR DE LA CRUZ OUT THAT WEEK AND WILL CALL OUR OFFICE IF SHE HAS ANY FURTHER QUESTIONS OR CONCERNS. OR TERADATA DEVELOPER documented in this encounter Plan of Treatment Not on file documented as of this encounter Visit Diagnoses Not on filedocumented in this encounter Care Teams Photolithographer Relationship Specialty Start Date End Date Johnna De La Cruz MD [address] [address] PCP - General Pediatrics 07/19/19 01/26/23 Johnna De La Cruz MD [address] [address] 07/19/19 documented as of this encounter
--- OUTSIDE RECORDS SUMMARY | 2024-08-28 02:15 | XMS_ITS | Encounter Summary ---
Author Organization [facility] Care Team Providers Care All Terrain Vehicle Racer Name Role Phone Johnna Tinajero MD Primary Care Provider + Johnna Tinajero MD Unavailable [phone] Encounter Details Date Type Department Care Team (Latest Contact Info) Description 09/13/2019 Travel Social History Tobacco Use Types Packs/Day Years Used Date Smoking Tobacco: Never PHQ-2 Answer Date Recorded PHQ-2 Score 4 06/28/2019 Comments No Sex and Gender Information Value Date Recorded Sex Assigned at Not on file Legal Sex 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 DOCUMENTATION LIAISON Gender Identity Not on file Sexual Orientation Not on file documented as of this encounter Plan of Treatment Not on file documented as of this encounter Visit Diagnoses Not on filedocumented in this encounter Care Teams All Terrain Vehicle Racer Relationship Specialty Start Date End Date Johnna Tinajero MD [address] [address] PCP - General Pediatrics 07/19/19 01/26/23 Johnna Tinajero MD [address] [address] 07/19/19 documented as of this encounter
--- OUTSIDE RECORDS SUMMARY | 2024-08-28 02:15 | XMS_ITS | Encounter Summary ---
Author Organization [facility] Address [address] [place] [address] Phone Care Team Providers Care Exchange Mechanic Name Role Phone Johnna Tinajero MD Primary Care Provider + Johnna Tinajero MD Unavailable [phone] Reason for Visit * Reason Onset Date Comments Schedule Testing 09/06/2019 Encounter Details Date Type Department Care Team (Late st Contact Info) Description 09/06/2019 Telephone [facility] Pediatric Gastroenterology [facility] 2nd [place] [address] [place] [address] Nehemiah Zhao MD [address] [place] [address] [address] [place] [address] Schedule Testing Social History Tobacco Use Types Packs/Day Years Used Date Smoking Tobacco: Never PHQ-2 Answer Date Recorded PHQ-2 Score 4 06/28/2019 Comments No Sex and Gender Information Value Date Recorded Sex Assigned at Not on file Legal Sex 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 DIESEL POWER MECHANIC Gender Identity Not on file Sexual Orientation Not on file documented as of this encounter Miscellaneous Notes * Telephone Encounter - Patrica Peñaloza RN - 09/06/2019 3:47 PM CST Spoke with mom, she does not have any new symptoms- nausea and intermittent vomiting (maybe once a week vomit- NB/NB) Advised we have evaluated gallbladder and it is normal from recent US Let's proceed with EGD first, we can re- eval if any further test would be clinically indicated since she has had a good work up to date Encourage physical activity, school attendance, less food and fluid volumes No recent weight loss or illness EL POWER MECHANIC * Telephone Encounter - Nehemiah Zhao MD - 09/06/2019 3:11 PM CST Thanks Nikki. Henson - please call mother to review whether Nina's clinical status has changed since I saw her, whether any change in symptoms, whether or not she is still on PPI. Also please remind mother that Nina's gallbladder was evaluated during the admission, by ultrasound which was reported to be normal, and that this study (EGD) will not evaluate that but will evaluate for UGI tract abnormalities that might contribute to her symptoms. My plan is to review the results of this study then f/u with Nina and mother about those results and based on those results consider next steps which may include reevaluation in the GI office. EL POWER MECHANIC * Telephone Encounter - Mercedes Steve - 09/06/2019 2:10 PM CST Called and spoke with mom. Scheduled the EGD for 09/22 (next available). Did add her to the wait list if we get any cancellations. Mom is wanting to know if there is any testing that we can order to check out her gallbladder. EL POWER MECHANIC * Telephone Encounter - Mercedes Steve - 09/06/2019 2:10 PM CST ----- Message from Nehemiah Zhao MD sent at 09/05/2019 8:05 AM DIESEL POWER MECHANIC ----- Thanks Lynda. We'll contact them to coordinate the contingency EGD. Leslye - please call mother to coordinate. She should be expecting the call. Indication for EGD is persistent nausea and history of NSAID exposure. Let me know if questions. ----- Message ----- From: Johnna Tinajero MD Sent: 09/02/2019 2:52 PM DIESEL POWER MECHANIC To: Nehemiah Zhao MD I saw Nina today and she has not improved at all on new medication. I confirmed with her and mom that the plan is to proceed with endoscopy and that your office will contact mom. Mom is asking aboutspecial tests for GB problems and that is out of my area of expertise EL POWER MECHANIC documented in this encounter Plan of Treatment Not on file documented as of this encounter Visit Diagnoses Not on filedocumented in this encounter Care Teams Exchange Mechanic Relationship Specialty Start Date End Date Johnna Tinajero MD [address] [address] PCP - General Pediatrics 07/19/19 01/26/23 Johnna Tinajero MD [address] [address] 07/19/19 documented as of this encounter
--- OUTSIDE RECORDS SUMMARY | 2024-08-28 02:15 | XMS_ITS | Encounter Summary ---
Author Organization [facility] Address [address] [place] [address] Care Team Providers Care Port Surveyor Name Role Phone Johnna Tinajero MD Primary Care Provider + Johnna Tinajero MD Unavailable [phone] Encounter Details Date Type Department Care Team (Late st Contact Info) Description 09/15/2019 Orders Only [facility] Diagnostic [place] [address] Yehuda Cabrera, RT Social History Tobacco Use Types Packs/Day Years Used Date Smoking Tobacco: Never PHQ-2 Answer Date Recorded PHQ-2 Score 4 06/28/2019 Comments No Sex and Gender Information Value Date Recorded Sex Assigned at Not on file Legal Sex 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 BASEBALL PLAYER Gender Identity Not on file Sexual Orientation Not on file documented as of this encounter Plan of Treatment Not on file documented as of this encounter Visit Diagnoses Not on filedocumented in this encounter Care Teams Port Surveyor Relationship Specialty Start Date End Date Johnna Tinajero MD [address] [id number] PCP - General Pediatrics 07/19/19 01/26/23 Johnna Tinajero MD [address] [address] 07/19/19 documented as of this encounter
--- OUTSIDE RECORDS SUMMARY | 2024-08-28 02:15 | XMS_ITS | Encounter Summary ---
Author Organization [facility] Healthcare Address [address] [place] [address] Care Team Providers Care Tailor Women'S Garment Alteration Name Role Phone Johnna Tinajero MD Primary Care Provider + Johnna Tinajero MD Unavailable [phone] Encounter Details Date Type Department Care Team (Late st Contact Info) Description 09/14/2019 10:16 AM BOTTOM LOADER Anesthesia Event [facility] [place] [address] Anabela Hawley MD [address] [place] [address] Anabela Sheridan MD [address] [place] [address] Anesthesia Record Procedure Summary Procedure Name Responsible Anesthesiologist Anesthesia Start Time Anesthesia Stop Time PEDIATRIC - UPPER ENDOSCOPY with biopsies Anabela Hawley MD 09/14/19 1016 09/14/19 1101 Events Date Time Event Comment 09/14/2019 1016 An Start 1018 In Room 1018 An Start Data 1022 An Induction The patient was reevaluated immediately before moderate or deep sedation use and before anesthesia induction. 1023 An Intubation 1024 Anesthesia Ready 1032 Proc Start 1048 Proc Fin 1051 An Extubation 1054 Out of Room 1056 an stop data 1100 Handoff to RN I completed my handoff [...] disposition at the time of handoff: PACU 1101 An Stop Meds Name Total fentaNYL 100 mcg lidocaine 1 % PF 20 mg propofol 200 mg dexamethasone 4 mg/ml 8 mg succinylcholine 100 mg LR 300 mL * Agents Name N2O O2 N2O Sevoflurane Inspired Sevoflurane * Blood No blood administrations on file. Lines, Drains, and Airways Type Details Placement Removal Peripheral IV Placement Date: 08/31 12/18; Placement Time: 1713; Catheter Size: 22 G; Orientation: Right; Location: Antecubital; Site Prep: Alcohol; Technique: Anatomical landmarks; Insertion Attempts: 2; Patient Tolerance: Tolerated well; Removal Date: 09/18/19; Removal Time: 2046; Removal Reason: Occluded 09/13/191713 by Shital Zaidi RN 09/18/192046 by Bibiana Hernandez RN ETT Placement Date: 08/31 01/17; Placement Time: 110 (created via procedure documentation); Mask Ventilation: 1; Technique: Direct laryngoscopy; Type: ETT - single; Single Lumen Tube Size: 7 mm; Cuffed: Yes; Laryngoscope: Shahana; Blade Size: 3; Location: Oral; Grade View: Grade I; Insertion Attempts: 1; Placement Verification: Auscultation, Capnometry; Removal Date: 09/15/19; Removal Time: 92909/14/19 110 by Basilia Clark CRNA 09/15/19 09 by Tila Harmon RN documented in this encounter Social History Tobacco Use Types Packs/Day Years Used Date Smoking Tobacco: Never PHQ-2 Answer Date Recorded PHQ-2 Score 4 06/28/2019 Comments No Sex and Gender Information Value Date Recorded Sex Assigned at Not on file Legal Sex 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 BOTTOM LOADER Gender Identity Not on file Sexual Orientation Not on file documented as of this encounter OR Notes * Anesthesia Postprocedure Evaluation - Anabela Hawley MD - 09/14/2019 11:53 AM CST Patient: Nina Coyne Procedure Summary Date: 09/14/19 Room / Location: [facility] [place] [place] [facility] Anesthesia Start: 1016 Anesthesia Stop: 110 Procedure: PEDIATRIC - UPPER ENDOSCOPY with biopsies (N/A ) Diagnosis: Abdominal pain, unspecified abdominal location Nausea (Abdominal pain, unspecified abdominal location [R10.9]) (Nausea [R11.0]) Provider: Klaudia Meneses MD Responsible Provider: Anabela Hawley MD Anesthesia Type: general ASA Status: 2 Anesthesia Type: general Last vitals BP 119/70 Pulse 95 Temp 37.1 ??C (98.8 ??F) (Temporal) Resp 16 SpO2 98% Anesthesia Post Evaluation Patient location during evaluation: PACU Level of consciousness: fully awake Pain score: 0 Pain management: adequate Airway patency: adequate Evidence of recall: unable to evaluate Anesthetic complications: no Cardiovascular status: acceptable Respiratory status: acceptable and spontaneous ventilation Hydration status: acceptable Pt is: normothermic Nausea/Vomiting status: none OM LOADER * Anesthesia Postprocedure Evaluation - Tracey Woodruff DO - 09/14/2019 11:38 AM CST Patient: Nina Coyne Procedure Summary Date: 09/14/19 Room / Location: [facility] Anesthesia Start: 1015 Anesthesia Stop: 110 Procedure: PEDIATRIC - UPPER ENDOSCOPY with biopsies (N/A ) Diagnosis: Abdominal pain, unspecified abdominal location Nausea (Abdominal pain, unspecified abdominal location [R10.9]) (Nausea [R11.0]) Provider: Klaudia Meneses MD Responsible Provider: Anabela Hawley MD Anesthesia Type: general ASA Status: 2 Anesthesia Type: general Last vitals BP 119/70 Pulse 95 Temp 37.1 ??C (98.8 ??F) (Temporal) Resp 16 SpO2 98% Anesthesia Post Evaluation Patient location during evaluation: PACU Patient participation: complete - patient participated Level of consciousness: fully awake Pain score: 0 Pain management: adequate Airway patency: adequate Evidence of recall: no Anesthetic complications: no Cardiovascular status: acceptable Respiratory status: acceptable Hydration status: acceptable Pt is: normothermic Nausea/Vomiting status: none OM LOADER * Anesthesia Procedure Notes - Basilia Clark CRNA - 09/14/2019 11:01 AM BOTTOM LOADER Associated Order(s): Airway Airway Patient location: OR Indications for airway management: anesthesia Difficult airway: no Staff: Supervising provider: Anabela Hawley MD Placed by: BOAT PERSON: Basilia Clark CRNA Emergent airway documentation: Risks and benefits discussed: yes Consent obtained: yes Consent given by: parent Airway prep: Preoxygenated: yes Mask difficulty assessment: 1 - vent by mask Spontaneous ventilation during airway: absent Sedation level during airway: GA Final airway details: Final airway type: endotracheal airway Tube type: ETT ETT size: 7.0 mm Cuffed: yes Technique used for successful ETT placement: direct laryngoscopy Devices/Methods used in placement: intubating stylet Insertion site: oral Blade type: Shahana Blade size: 3 Cormack-Lehane (direct): grade I - full view of glottis Cuff inflated with: air Placement verified by: auscultation and CO2 detection Airway secured with: silk tape Number of attempts: 1 Ventilation between attempts: none OM LOADER * Anesthesia Preprocedure Evaluation - Anabela Hawley MD - 09/14/2019 7:32 AM CST Images from the original note were not included. Anesthesia Evaluation Nina Coyne is a 19 y.o. female Procedure(s): ESOPHAGOGASTRODUODENOSCOPY Pre-Op Diagnosis Codes: * Abdominal pain, unspecified abdominal location [R10.9] * Nausea [R11.0] HISTORY HPI Nina is a 19 yo female with history of asthma and 2 month history of worsening nausea with numerous episodes of NB/NB emesis in the past day. Has had significant workup including labs, CT, and US which were largely unremarkable for causes of persistent nausea/emesis. GI had planned to perform EGD for further investigation (scheduled 09/22) but patient presented with worsening and increased s/s Past Medical History Information obtained from: chart. Neurological Neurological system: negative Cardiovascular Cardiac system: negative Respiratory + Recent URI (used Pro-Air once daily for several days, afebrile, attending school) - dry cough. + Asthma/RAD (History of Hospitalization, last several years ago, did require ICU admission x 1, nointubation but BIPAP use) Medication use: dosing stable. Prior asthma-related hospitalization. Gastrointestinal GI system: negative Review of Systems + productive cough + nausea/vomiting + abdominal pain Pertinent negatives: wheezing and chipped/loose teeth PAT Summary and Plans Anesthesia plan discussed: general anesthesia. Additional comments: Urine HCG (-), NPO, PIV in place, reviewed GA with pt and mom at bedside. Patient Active Problem List Diagnosis ??? Migraine headache ??? Obesity ??? Asthma, moderate persistent, well-controlled ??? Abnormal electrocardiography ??? Dander (animal) allergy ??? Vitamin D deficiency ??? Irregular menses ??? Abdominal pain ??? Asthma ??? Anxiety ??? Nausea Past Medical History: Diagnosis Date ??? Abdominal pain 07/20/2019 ??? Abnormal electrocardiography 01/19/2017 Annotation: Saw cardiology 2016 and was cleared, repeat 08/25/19 Normal sinus rhythm with sinus arrhythmia with short NH ??? Anxiety 07/20/2019 ??? Asthma ??? Nausea 08/15/2019 ??? Vomiting multiple times per week Past Surgical History: Procedure Laterality Date ??? WRIST SURGERY OB History No obstetric history on file. Allergies Allergen Reactions ??? Dog Dander Hives Reaction: HIVES, ??? Penicillins Other (See comments) and Rash As a child Reaction: NAUSEA;, As a child Med List Status: Provider Complete Set By: Viktor Villagomez MD at 09/13/2019 7:26 PM Taking? Last Dose Start Date End Date Provider albuterol (PROVENTIL,VENTOLIN) 1.25 mg/3 mL nebulizer solution Past Month -- -- Historical Provider, albuterol HFA (PROVENTIL HFA,VENTOLIN HFA,PROAIR HFA) 90 mcg/actuation inhaler Past Month -- -- Historical Provider, escitalopram (LEXAPRO) 20 mg tablet 09/13/2019 09/02/19 10/02/19 Johnna Tinajero MD Take 1 tablet (20 mg total) by mouth daily fluticasone furoate-vilanterol (Breo Ellipta) 100-25 mcg/dose diskus inhaler 09/12/2019 09/02/19 -- Johnna Tinajero MD Inhale 1 puff daily norgestimate-ethinyl estradiol (ORTHO TRI-CYCLEN LO) 0.18/0.215/0.25 mg-25 mcg per tablet -- Historical Provider, omeprazole (PriLOSEC) 20 mg capsule 09/13/2019 08/18/19 -- Nehemiah Zhao MD Take 1 capsule (20 mg total) by mouth 2 (two) times a day ondansetron ODT (ZOFRAN-ODT) 4 mg disintegrating tablet 09/13/2019 09/05/19 -- Johnna Tinajero MD Take 1 tablet (4 mg total) by mouth every 6 (six) hours as needed for nausea or vomiting Current Facility-Administered Medications: ??? acetaminophen (TYLENOL) tablet 650 mg, 650 mg, oral, Q6H PRN ??? dextrose 5% and sodium chloride 0.9% with potassium chloride 20 mEq/L infusion (premix), 1.5 L/m2/day, intravenous, Continuous, Last Rate: 133.1 mL/hr at 09/14/19257, 1.5 L/m2/day at 09/14/19 025 ??? escitalopram (LEXAPRO) tablet 20 mg, 20 mg, oral, Daily ??? fluticasone furoate-vilanterol (BREO ELLIPTA) 100-25 mcg/dose inhaler 1 puff, 1 puff, inhalation, Daily, 1 puff at 09/13/192224 ??? norgestimate-ethinyl estradiol (ORTHO TRI-CYCLEN LO) 0.18/0.215/0.25 mg-25 mcg per tablet 1 tablet, 1 tablet, oral, Daily, 1 tablet at 09/13/195 ??? ondansetron ODT (ZOFRAN-ODT) disintegrating tablet 4 mg, 4 mg, oral, Q6H PRN, 4 mg at 09/13/192023 Social History Tobacco Use Smoking Status Never Smoker Substance and Sexual Activity Alcohol Use Not on file Substance and Sexual Activity Drug Use Not on file Family History Adopted: Yes Family history unknown: Yes PAT Physical Exam Airway Exam: Mallampati: II Cervical ROM: FROM Cardiovascular Exam: Rate: regular Rhythm: regular Pulmonary Exam: LCTA, bilat (With good aeration, no audible wheezing) EENT Exam: trachea midline Dental Exam: Appears intact Skin Exam: Skin is warm. Capillary refill is < 3 seconds. Turgor is normal. Abdominal exam: Abdomen is soft. Bowel sounds are present. Current state: Patient's current state is cooperative and interactive. Line/Drains/Tubes/Devices: Lines in situ (PIV): Vitals: 09/13/19 1945 09/13/19 2318 09/14/19 0320 BP: 126/84 118/79 124/83 Pulse: 86 72 64 Resp: 18 16 16 Temp: 36.5 ??C (97.7 ??F) 36.6 ??C (97.9 ??F) 36.4 ??C (97.5 ??F) SpO2: 99% 98% 98% PT: No results found for requested labs within last 720 hours. INR: No results found for requested labs within last 720 hours. APTT: No results found for requested labs within last 720 hours. Hgb A1C: No results found for requested labs within last 720 hours. CBC RBC: No results found for requested labs within last 720 hours. RDW: 08/22/2019: 13.3 % MCHC: 08/22/2019: 33.1 g/dL MCH: 08/22/2019: 28.7 pg MCV: 08/22/2019: 86.9 fL Hct: 08/22/2019: 38.4 % Hgb: 08/22/2019: 12.7 g/dL WBC: 08/22/2019: 6.6 Thousand/uL MPV: 08/22/2019: 10.3 fL Platelets: 08/22/2019: 379 Thousand/uL RDW CV: No results found for requested [...] for requested labs within last 720 hours. Humpty Dumpty Total Score: 8 DOS Physical Exam Medical history, medications, and allergies reviewed. Attestation: This PAT evaluation 09/14/2019. Airway Exam: Mallampati: II TM distance: normal Cardiovascular Exam: Rate: regular Rhythm: regular Pulmonary Exam: LCTA EENT Exam: trachea midline Dental Exam: Appears intact Skin Exam: Skin is warm. Current state: Patient's current state is cooperative and interactive. Lines/Drains/Tubes/Devices A-lines present: PIV in situ right AC. Anesthesia Plan ASA 2 Planned anesthesia: General Team communication plan: oral ET tube Induction: Induction: intravenous. Postoperative Plan: Postoperative administration opioids intended. No postoperative mechanical ventilation intended. Planned trial extubation. Informed Consent: Discussed plan with BOAT PERSON. Anesthesia plan and risks discussed with patient, father and mother. Consent and Attending signature: I and/or my designee have discussed the anesthesia plan, benefits, possible alternatives, parental presence at time of induction (if indicated), and clinically relevant risks that may include dental injury, unintentional awareness, and/or other complications. The patient and/or parent/legal guardian understand, and agree to proceed. All questions answered. OM LOADER OM LOADER documented in this encounter Plan of Treatment Not on file documented as of this encounter Procedures Procedure Name Priority Date/Time Associated Diagnosis Comments NH AN PROCEDURE PLACEHOLDER Routine 09/14/2019 11:01 AM BOTTOM LOADER NH AN ELECTIVE ENDOTRACHEAL AIRWAY Routine 09/14/2019 11:01 AM BOTTOM LOADER documented in this encounter Results * NH AN ELECTIVE ENDOTRACHEAL AIRWAY, NH AN PROCEDURE PLACEHOLDER (09/14/2019 11:01 AM BOTTOM LOADER) Basilia Lewis CRNA - 09/14/2019 11:01 AM BOTTOM LOADER Basilia Clark CRNA ? 09/14/2019 11:01 AM Airway Patient location: OR Indications for airway management: anesthesia Difficult airway: no Staff: Supervising provider: Anabela Hawley MD Placed by: BOAT PERSON: Basilia Clark CRNA Emergent airway documentation: Risks and benefits discussed: yes Consent obtained: yes Consent given by: parent Airway prep: Preoxygenated: yes Mask difficulty assessment: 1 - vent by mask Spontaneous ventilation during airway: absent Sedation level during airway: GA Final airway details: Final airway type: endotracheal airway Tube type: ETT ETT size: 7.0 mm Cuffed: yes Technique used for successful ETT placement: direct laryngoscopy Devices/Methods used in placement: intubating stylet Insertion site: oral Blade type: Shahana Blade size: 3 Cormack-Lehane (direct): grade I - full view of glottis Cuff inflated with: air Placement verified by: auscultation and CO2 detection Airway secured with: silk tape Number of attempts: 1 Ventilation between attempts: none us Anabela Hawley MD ANESTHESIA ORDERABLES F inal Result documented in this encounter Visit Diagnoses Not on filedocumented in this encounter Administered Medications Inactive Administered Medications - up to 3 most recent administrations Medication Order MAR Action Action Date Dose Rate Site dexAMETHasone (DECADRON) 4 mg/mL injection Administer over 30 Minutes, As needed, Starting on Thu09/14/19 at 1032, Anesthesia Intra-op Given 09/14/2019 10:32 AM BOTTOM LOADER 8 mg fentaNYL (SUBLIMAZE) preservative free injection As needed, Starting on Thu09/14/19 at 1022, Anesthesia Intra-op Given 09/14/2019 10:22 AM BOTTOM LOADER 100 mcg Lactated Ringer's (LR) infusion Continuous PRN, Starting on Thu09/14/19 at 1019, Anesthesia Intra-op New Bag 09/14/2019 10:19 AM BOTTOM LOADER lidocaine PF (XYLOCAINE) 10 mg/mL (1 %) preservative free injection As needed, Starting on Thu09/14/19 at 1022, Anesthesia Intra-op Given 09/14/2019 10:22 AM BOTTOM LOADER 20 mg propofol (DIPRIVAN) IV As needed, Starting on Thu09/14/19 at 1022, Anesthesia Intra-op Given 09/14/2019 10:22 AM BOTTOM LOADER 200 mg succinylcholine (ANECTINE) injection As needed, Starting on Thu09/14/19 at 1022, Anesthesia Intra-op Given 09/14/2019 10:22 AM BOTTOM LOADER 100 mg documented in this encounter Care Teams Tailor Women'S Garment Alteration Relationship Specialty Start Date End Date Johnna Tinajero MD [address] [address] PCP - General Pediatrics 07/19/19 01/26/23 Johnna Tinajero MD [address] [address] 07/19/19 documented as of this encounter
--- OUTSIDE RECORDS SUMMARY | 2024-08-28 02:15 | XMS_ITS | Encounter Summary ---
Author Organization [facility] Address [address] [place] [address] Phone Care Team Providers Care Vp Publisher Development Name Role Phone Johnna Tinajero MD Primary Care Provider + Johnna Tinajero MD Unavailable [phone] Reason for Visit * Reason Onset Date Comments update 10/04/2019 Encounter Details Date Type Department Care Team (Late st Contact Info) Description 10/04/[address] [facility] [address] [facility] [address] [place] [address] Johnna Tinajero MD [address] [place] [id number] update Social History Tobacco Use Types Packs/Day Years Used Date Smoking Tobacco: Never PHQ-2 Answer Date Recorded PHQ-2 Score 4 06/28/2019 Comments No Sex and Gender Information Value Date Recorded Sex Assigned at Not on file Legal Sex 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 PURCHASE ORDER CHECKER Gender Identity Not on file Sexual Orientation Not on file documented as of this encounter Miscellaneous Notes * Telephone Encounter - Kady Yang - 10/04/2019 2:16 PM CST Mom wanted to let you know that pt has had several episodes of vomiting again. Is seeing GI on 10/05/2019. Has not given anxiety meds until she sees GI. Mom will c/b with update. HASE ORDER CHECKER documented in this encounter Plan of Treatment Not on file documented as of this encounter Visit Diagnoses Not on filedocumented in this encounter Care Teams Vp Publisher Development Relationship Specialty Start Date End Date Johnna Tinajero MD [address] [address] PCP - General Pediatrics 07/19/19 01/26/23 Johnna Tinajero MD [address] [address] 07/19/19 documented as of this encounter
--- OUTSIDE RECORDS SUMMARY | 2024-08-28 02:15 | XMS_ITS | Encounter Summary ---
Author Organization [facility] Address [address] [place] [address] [address] [place] [address] Phone Care Team Providers Care Welding Pantograph Operator Name Role Phone Johnna Tinajero MD Primary Care Provider + Johnna Tinajero MD Unavailable [phone] Encounter Details Date Type Department Care Team (Late st Contact Info) Description 09/13/2019 Telephone [facility] [address] [facility] [address] [place] [address] Tete Ruvalcaba MD [address] [place] [address] [address] [place] [address] Social History Tobacco Use Types Packs/Day Years Used Date Smoking Tobacco: Never PHQ-2 Answer Date Recorded PHQ-2 Score 4 06/28/2019 Comments No Sex and Gender Information Value Date Recorded Sex Assigned at Not on file Legal Sex 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 TRACER LATHE SET UP OPERATOR Gender Identity Not on file Sexual Orientation Not on file documented as of this encounter Miscellaneous Notes * Telephone Encounter - Madyson Roberts - 09/13/2019 8:31 AM CST Mom called concerned about Nina vomited 10 times since last night and decreased UOP. Advised: Go to ER. Call to [facility] and gave report. ER LATHE SET UP OPERATOR documented in this encounter Plan of Treatment Not on file documented as of this encounter Visit Diagnoses Not on filedocumented in this encounter Care Teams Welding Pantograph Operator Relationship Specialty Start Date End Date Johnna Tinajero MD [address] [address] PCP - General Pediatrics 07/19/19 01/26/23 Johnna Tinajero MD [address] [address] 07/19/19 documented as of this encounter
--- OUTSIDE RECORDS SUMMARY | 2024-08-28 02:15 | XMS_ITS | Encounter Summary ---
Author Organization [facility] Address [address] [place] [address] [address] [place] [address] Phone Care Team Providers Care Batching Operator Name Role Phone Johnna Tinajero MD Primary Care Provider + Johnna Tinajero MD Unavailable Encounter Details Date Type Department Care Team (Late st Contact Info) Description 09/29/2019 Telephone [facility] [address] [place] [address] Johnna Tinajero MD [address] [place] [address] Social History Tobacco Use Types Packs/Day Years Used Date Smoking Tobacco: Never PHQ-2 Answer Date Recorded PHQ-2 Score 4 06/28/2019 Comments No Sex and Gender Information Value Date Recorded Sex Assigned at Not on file Legal Sex 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 CHARGEBACK ANALYST Gender Identity Not on file Sexual Orientation Not on file documented as of this encounter Miscellaneous Notes * Telephone Encounter - Basilia Dillard RN - 09/29/2019 5:11 PM CHARGEBACK ANALYST PC to mom, since the GI team does not feel that Leapro is affecting the nausea and Nina is feelingthe difference since she was on it vs not taking mom OK to restart Thursday as defined below. Mom to CB with ANY increase in discomfort, and discuss at upcoming GI appointment next week as needed. ----- Message from Johnna Tinajero MD sent at 09/29/2019 12:25 PM CHARGEBACK ANALYST ----- Regarding: RE: F/U Contact: If she is completely without nausea and is eating back to normal and otherwise feeling well, she can start back on 10 mg Lexapro on Thursday. If ok and without nausea on that dose for a week she can increase back to 20. If she develops nausea on either dose she should call ----- Message ----- From: Basilia Dillard RN Sent: 09/28/2019 3:37 PM CHARGEBACK ANALYST To: Johnna Tinajero MD Subject: F/U PC from mom, the physicians at her hospital visit wanted to stop Lexapro to completely r/o it beingthe potential cause of her symptoms. Mom says she has been off it for one week and she is wonderingwhen they should restart and if it should be tapered up to the 20 mg again? Please advise and we can call mom back with the plan. Overall she is doing better. Thanks, Kiran GEBACK ANALYST GEBACK ANALYST documented in this encounter Plan of Treatment Not on file documented as of this encounter Visit Diagnoses Not on filedocumented in this encounter Care Teams Batching Operator Relationship Specialty Start Date End Date Johnna Tinajero MD [address] [id number] PCP - General Pediatrics 07/19/19 01/26/23 Johnna Tinajero MD [address] [facility] [address] [place] [address] 07/19/19 documented as of this encounter
--- OUTSIDE RECORDS SUMMARY | 2024-08-28 02:15 | XMS_ITS | Encounter Summary ---
Author Organization [facility] Address [address] [place] [address] Phone Care Team Providers Care Mobile Disc Jockey Name Role Phone Johnna Tinajero MD Primary Care Provider + Johnna Tinajero MD Unavailable [phone] Reason for Visit * Reason Onset Date Comments medication adjustment 10/12/2019 Encounter Details Date Type Department Care Team (Late st Contact Info) Description 10/12/2019 Telephone [facility] Pediatric Gastroenterology [facility] 2nd [place] [address] [place] [address] Maureen Weeks MD [address] [place] [address] [address] [place] [address] medication adjustment Social History Tobacco Use Types Packs/Day Years Used Date Smoking Tobacco: Never PHQ-2 Answer Date Recorded PHQ-2 Score 4 06/28/2019 Comments No Sex and Gender Information Value Date Recorded Sex Assigned at Not on file Legal Sex 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 KENNEL KEEPER Gender Identity Not on file Sexual Orientation Not on file documented as of this encounter Miscellaneous Notes * Telephone Encounter - Lulu Gimenez RN - 10/12/2019 4:08 PM CST Spoke with mother. Informed mother that Nina is still nauseous and vomiting with the increase in nortriptyline 30 mg. She didn't vomit over the weekend. She will vomit 2 times daily and the timing of day varies. Will give SIDNEY the update. EL KEEPER * Telephone Encounter - Marina Paty Grazyna - 10/12/2019 3:28 PM KENNEL KEEPER Mom (Vicki) is calling, mom said when they saw Sidney and JENNIFER that they adjusted her nausea medication. Mom says that she is still nauseous and vomiting and wanting to know if another adjustment could be done. EL KEEPER documented in this encounter Plan of Treatment Not on file documented as of this encounter Visit Diagnoses Not on filedocumented in this encounter Care Teams Mobile Disc Jockey Relationship Specialty Start Date End Date Johnna Tinajero MD [address] [address] PCP - General Pediatrics 07/19/19 01/26/23 Johnna Tinajero MD [address] [address] 07/19/19 documented as of this encounter
--- OUTSIDE RECORDS SUMMARY | 2024-08-28 02:15 | XMS_ITS | Encounter Summary ---
Author Organization [facility] Address [address] [place] [address] [address] [place] [address] Phone Care Team Providers Care Enginehouse Brakeman Name Role Phone Johnna Tinajero MD Primary Care Provider + Johnna Tinajero MD Unavailable [phone] Reason for Visit * Reason Comments Well Child 19 YEAR CHECK Encounter Details Date Type Department Care Team (Late st Contact Info) Description 09/02/2019 1:30 PM MEN'S GARMENT FITTER Office Visit [facility] [address] [facility] [address] [place] [address] Johnna Tinajero MD [address] [place] [address] Encounter for routine child health examination with abnormal findings (Primary Dx); Nausea; Asthma, moderate persistent, well-controlled; Irregular menses; Anxiety Social History Tobacco Use Types Packs/Day Years Used Date Smoking Tobacco: Never PHQ-2 Answer Date Recorded PHQ-2 Score 4 06/28/2019 Comments No Sex and Gender Information Value Date Recorded Sex Assigned at Not on file Legal Sex 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 MEN'S GARMENT FITTER Gender Identity Not on file Sexual Orientation Not on file documented as of this encounter Last Filed Vital Signs Vital Sign Reading Time Taken Comments Blood Pressure 112/80 09/02/2019 1:43 PM MEN'S GARMENT FITTER USING EXTRA LARGE CUFF Pulse - - Temperature - - Respiratory Rate - - Oxygen Saturation - - Inhaled Oxygen Concentration - - Weight 101.3 kg (223 lb 6.4 oz) 09/02/2019 1:43 PM MEN'S GARMENT FITTER Height 162 cm (5' 3.78 ) 09/02/2019 1:4 3 PM MEN'S GARMENT FITTER Body Mass Index 38.61 09/02/2019 1:43 PM MEN'S GARMENT FITTER Body Mass Index Percentile 98.91% 09/02 1:43 PM MEN'S GARMENT FITTER Growth Chart: [facility] (Girls, 2- 20 Years) documented in this encounter Ordered Prescriptions Prescription Sig Dispense Quantity Refills Last Filled Start Date End Date escitalopram (LEXAPRO) 20 mg tablet Take 1 tablet (20 mg total) by mouth daily 30 tablet 3 09/02/2019 09/20/2019 fluticasone furoate-vilanterol (Breo Ellipta) 100-25 mcg/dose diskus inhaler Inhale 1 puff daily 60 each 09/02/2019 12/14/2022 documented in this encounter Progress Notes * Johnna Tinajero MD - 09/02/2019 1:30 PM CST Subjective Nina Coyne is a 19 y.o. female who is here for her well child visit accompanied by mother Still having nausea throughout the day, every day. Vomited once New Year's and last night during the night. Did not feel better after vomiting. Vomiting a couple times a week. A bit of a headache once in a while, not dizzy. Still hasn't been able to eat a lot. BMs have been normal and daily. Urinating normal. Taking the Prilosec BID, in the morning whenever she gets up and at HS with her Lexapro. Has been taking Zofran about once daily; out of that now. Taking Align per Bead Stringer. She thinks her Lexapro is helping with her anxiety some days more than others. Asthma has not been acting up; not symptomatic. Mom thinks she is managing the chronic not feeling well most days. Has had some good days and did things with people from out of town. Did go on the [place]wn [place] and went skating but the next day felt worse, slept a lot more. LMP was 12/; has not started the OCP yet; wants to wait till gets her period. The educational psychology professor did not think her nausea was attributable to educational psychology professor problems. Patient Active Problem List Diagnosis ??? Migraine headache ??? Obesity ??? Asthma, moderate persistent, well-controlled ??? Abnormal electrocardiography ??? Dander (animal) allergy ??? Vitamin D deficiency ??? Irregular menses ??? Abdominal pain ??? Asthma ??? Anxiety ??? Nausea Current Outpatient Medications: ??? escitalopram (LEXAPRO) 20 mg tablet, Take 1 tablet (20 mg total) by mouth daily, Disp: 30 tablet, Rfl: 0 ??? fluticasone furoate-vilanterol (Breo Ellipta) 100-25 mcg/dose diskus inhaler, Inhale 1 puff daily, Disp: 60 each, Rfl: 0 ??? omeprazole (PriLOSEC) 20 mg capsule, Take 1 capsule (20 mg total) by mouth 2 (two) times a day,Disp: 60 capsule, Rfl: 1 ??? albuterol (PROVENTIL,VENTOLIN) 1.25 mg/3 mL nebulizer solution, Take 3 mL by nebulization every4 (four) hours as needed for wheezing or shortness of breath , Disp: , Rfl: ??? albuterol HFA (PROVENTIL HFA,VENTOLIN HFA,PROAIR HFA) 90 mcg/actuation inhaler, Inhale 2 puffs every 6 hours as needed for wheezing or shortness of breath , Disp: , Rfl: ??? fluticasone propionate (FLONASE) 50 mcg/actuation nasal spray, Administer 2 sprays into each nostril daily , Disp: , Rfl: ??? norgestimate-ethinyl estradiol (ORTHO TRI-CYCLEN LO) 0.18/0.215/0.25 mg-25 mcg per tablet, Take1 tablet by mouth daily, Disp: , Rfl: 0 ??? ondansetron ODT (ZOFRAN-ODT) 4 mg disintegrating tablet, Take 1 tablet (4 mg total) by [...] 02/24/2003, 02/23/2006 ??? Meningococcal B, Recombinant (Trumenba) 08/17/2018 ??? Meningococcal MCV4P (Menactra) 09/12/2013, 08/17/2018 ??? PPD TEST 02/23/2006 ??? Pneumococcal Conjugate, Unspecified 2002, 2002, 02/24/2003 ??? Tdap 03/25/2013 ??? Varicella 02/24/2003, 02/01/2008 I have reviewed: allergies, current medications, past family history, past medical history, past social history, past surgical history and problem list Well Child Assessment: History was provided by the mother and father. Nina lives with her mother, father and sister. Dental The patient has a dental home. Last dental exam was less than 6 months ago. Elimination Elimination problems do not include constipation or diarrhea. Sleep Sleep disturbance: has been sleeping pretty well but waking up every 2 or so days with nausea. School Current grade level is 12th. Child is doing well (close to being caught up on school work. ) in school. Social After school activity: choir. Menses: Lmp was July, saw aircraft skin burnisher, see above. Ongoing irregular mentses High risk behaviors: None Wears a helmet: N/A Wears seatbelt: Yes Any concerns about hearing or vision? No Objective Vitals: 09/02/19 1343 BP: 112/80 Weight: 101.3 kg (223 lb 6.4 oz) Height: 162 cm (5' 3.78 ) 99 %ile (Z= 2.25) based on CDC (Girls, 2-20 Years) dzgiln-[id number] data using vitals from 09/02/2019. 44 %ile (Z= -0.16) based on CDC (Girls, 2-20 Years) [id number]-[id number] data based on Stature recorded on 09/02/2019. 99 %ile (Z= 2.24) based on [facility] (Girls, 2-20 Years) BMI-for-age based on BMI available as of 09/02/2019. Growth parameters are noted and are appropriate for age. General: Alert, NAD Skin: No rashes Head: Normocephalic, atraumatic Eyes: Sclera clear, EOMI, PERRLA Ears: Normal external ears. TMs normal bilaterally Nose: no abnormalities Mouth: Normal Neck: Supple, no LAD, full ROM Lungs: Clear to auscultation bilaterally Heart: Regular rate and rhythm, S1, S2 normal, no murmur, click, rub or gallop. Chest: Jorge Stage 4 Abdomen: Soft,slightly tender over RUQ; no guarding.; bowel sounds normal; no masses, no organomegaly : genitalia not examined, Jorge stage 4 Back: Straight, no scoliosis, normal ROM with extension & flexion Extremities: No clubbing or edema, full ROM Neuro: grossly normal, normal gait Assessment/Plan Well adolescent. 1. Encounter for routine child health examination with abnormal findings 2. Nausea Chronic nausea ongoing, unclear etiology, not likely medication related. Per prior conversation with Dr. Zhao, GI, needs to proceed with endoscopy. CC note to him; mom to contact his office if they don't call her 3. Asthma, moderate persistent, well-controlled No change in medication, keep allergy follow up 4. Irregular menses Plan as per WEIGHT INSPECTOR; to start OCP after next menses and if no period this month she will prescribe Provera 5. Anxiety Continue 20 mg Lexapro.PHQ9 and SCARED both positive, no suicidal intent, is symptomatic because ofchronically feeling ill. 1. Anticipatory guidance. Discussed the following: Peer relations, Hobbies, School performance, Body image/dieting, Seatbelt/airbags, Contraception/Family planning, Alcohol, drugs, smoking and driving and Feeding: { 3 balanced meals 2. Immunizations today: per orders. History of previous adverse reactions to immunizations? N/A 3. Weight management: The patient was counseled regarding nutrition and physical activity. 4. Hearing screen normal Yes Vision screen normal Yes 5. PHQ-9 given and reviewed. Score = 16. Follow up indicated: Yes. Follow-up by phone in 4 weeks and visit in 1 year for next well child visit, or sooner as needed. Johnna Tinajero MD 'S GARMENT FITTER documented in this encounter Plan of Treatment Not on file documented as of this encounter Visit Diagnoses Diagnosis Encounter for routine child health examination with abnormal findings- Primary Nausea Nausea alone Asthma, moderate persistent, well-controlled Unspecified asthma Irregular menses Irregular menstrual cycle Anxiety Anxiety state, unspecified documented in this encounter Discontinued Medications Medication Sig Discontinue Reason Start Date End Da te fluticasone-vilanterol (BREO ELLIPTA) 100-25 mcg/dose diskus inhaler Inhale 1 puff daily. Reorder 09/04/201610/2019 citalopram (CeleXA) 10 mg tablet Take 1 tablet (10 mg total) by mouth daily for 7 days Alternate therapy 08/16/2019 09/02/2019 escitalopram (LEXAPRO) 20 mg tablet Take 1 tablet (20 mg total) by mouth daily Reorder 08/26/2019 09/02/2019 documented as of this encounter Historical Medications * This list may reflect changes made after this encounter. norgestimate-ethi nyl estradiol (ORTHO TRI-CYCLEN LO) 0.18/0.215/0.25 mg-25 mcg per tablet Take 1 tablet by mouth daily 0 08/17/2019 added in this encounter Orders Immunization/Injection Count Last Ordered Date First Ordered Date MENINGOCOCCAL B, RECOMBINANT (TRUMENBA) 1 0 09/02/2019 documented in this encounter Care Teams Enginehouse Brakeman Relationship Specialty Start Date End Date Johnna Tinajero MD [address] [address] PCP - General Pediatrics 07/19/19 01/26/23 Johnna Tinajero MD [address] [address] 07/19/19 documented as of this encounter
--- OUTSIDE RECORDS SUMMARY | 2024-08-28 02:15 | XMS_ITS | Encounter Summary ---
Author Organization [facility] Address [address] [place] [address] [address] [place] [address] Phone Care Team Providers Care Substitute Teacher Name Role Phone Johnna Tinajero MD Primary Care Provider + Johnna iTnajero MD Unavailable [phone] Reason for Visit * Reason Onset Date Comments Abdominal Pain 09/09/2019 Encounter Details Date Type Department Care Team (Late st Contact Info) Description 09/09/2019 Telephone [facility] [address] [facility] [address] [place] [address] Johnna Tinajero MD [address] [place] [address] [address] [place] [address] Abdominal Pain Social History Tobacco Use Types Packs/Day Years Used Date Smoking Tobacco: Never PHQ-2 Answer Date Recorded PHQ-2 Score 4 06/28/2019 Comments No Sex and Gender Information Value Date Recorded Sex Assigned at Not on file Legal Sex 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 MANAGER INSTRUMENTATION Gender Identity Not on file Sexual Orientation Not on file documented as of this encounter Miscellaneous Notes * Telephone Encounter - Kady Yang - 09/09/2019 2:32 PM CST Spoke with mom, She did have a bad interaction with GI, Per mom pt has been vomiting 2-3 x day since the beginning of the year. Reassured mom we are trying to help Nina. Per Dr. Tinajero, mom shouldcall and ask to speak with Dr. Moody, not a nurse and discuss sx she discussed with me, and testing she would like done. If any problems call back and we will contact him. Mom states understanding. C/B PRN----- Message from Johnna Tinajero MD sent at 09/09/2019 1:33 PM MANAGER INSTRUMENTATION ----- Regarding: RE: Nausea Contact: Im not sure which test she is referring to. The only tests I know of, other than an ultrasound thatlizet has had, are invasive tests done by GI doctors, who she has seen. She is supposed to have endoscopy scheduled and I asked mom to talk with them about her concerns RE: GB and I sent a message to Dr. Zhao that she had concerns about Nina having GB dysfunction. I was told mom had and extremely unsatisfactory interaction with the scheduling nurse, who implying that Nina was making up her symptoms, and made mom cry. If mom says she did bring it up and was just blown off by the nurse, let renettaw and I will message Dr. Zhao again to see if he himself will call mom. ----- Message ----- From: Kady Yang Sent: 09/09/2019 10:14 AM MANAGER INSTRUMENTATION To: Johnna Tinajero MD Subject: Nausea Mom wanted to know if pt could get a gall bladder test due to her nausea. Has talked with severalpeople who have had the same issues as Nina, and it was their gall bladder. Let me know, thanks. GER INSTRUMENTATION GER INSTRUMENTATION documented in this encounter Plan of Treatment Not on file documented as of this encounter Visit Diagnoses Not on filedocumented in this encounter Care Teams Substitute Teacher Relationship Specialty Start Date End Date Johnna Tinajero MD [address] [address] PCP - General Pediatrics 07/19/19 01/26/23 Johnna Tinajero MD [address] [address] 07/19/19 documented as of this encounter
--- OUTSIDE RECORDS SUMMARY | 2024-08-28 02:15 | XMS_ITS | Encounter Summary ---
Author Organization [facility] Address [address] [place] [address] Phone Care Team Providers Care Separator Operator Name Role Phone Johnna Tinajero MD Primary Care Provider + Johnna Tinajero MD Unavailable [phone] Encounter Details Date Type Department Care Team (Late st Contact Info) Description 09/12/2019 Orders Only [facility] Pediatric Gastroenterology [facility] 2nd [place] [address] [place] [address] Nehemiah Zhao MD [address] [place] [address] [address] [place], [place] [id number] Abdominal pain, unspecified abdominal location (Primary Dx); Nausea Social History Tobacco Use Types Packs/Day Years Used Date Smoking Tobacco: Never PHQ-2 Answer Date Recorded PHQ-2 Score 4 06/28/2019 Comments No Sex and Gender Information Value Date Recorded Sex Assigned at Not on file Legal Sex 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 RESEARCH AND DEVELOPMENT SPECIALIST Gender Identity Not on file Sexual Orientation Not on file documented as of this encounter Progress Notes * Nehemiah Zhao MD - 09/12/2019 12:44 PM CST Ped GI Procedure Checklist Patient Name: Nina Coyne Age: 19 y.o. Gender: female [facility] Ordering Provider: Nehemiah Zhao MD PCP: Johnna Tinajero MD Consent, Guardianship complexity or social issue: Adopted (R10.9) Abdominal pain, unspecified abdominal location (primary encounter diagnosis) Plan: Case Request GI: PEDIATRIC - UPPER ENDOSCOPY (R11.0) Nausea Plan: Case Request GI: PEDIATRIC - UPPER ENDOSCOPY Abbreviated history (see note for additional details): 19 y.o. female with abdominal pain, nausea, and obesity. Symptoms began shortly after starting on citalopram in May and prompted [facility] admission and imaging studies in July with review specialist evaluation suspicion for ovarian cyst as contributor. Ad mission also notable for significant NSAID exposure and treated with PPI. No diarrhea, hematocheziaor melena. Citalopram changed to Lexapro with persistence of symptoms and new nbnb emesis. Labs or additional studies needed: None UPPER GI ENDOSCOPY: Paired duodenal, gastric, and distal esophageal mucosal biopsies will be obtained unless otherwise specified: Esophageal biopsies: Standard Special biopsy procedures: MAGALIE test if evidence of gastritis, mucosal nodularity or gastric or duodenal peptic ulcer disease Special procedures: None ARCH AND DEVELOPMENT SPECIALIST documented in this encounter Plan of Treatment Not on file documented as of this encounter Visit Diagnoses Diagnosis Abdominal pain, unspecified abdominal location- Primary Nausea Nausea alone documented in this encounter Care Teams Separator Operator Relationship Specialty Start Date End Date Johnna Tinajero MD [address] [address] PCP - General Pediatrics 07/19/19 01/26/23 Johnna Tinajero MD [address] [address] 07/19/19 documented as of this encounter
--- OUTSIDE RECORDS SUMMARY | 2024-08-28 02:15 | XMS_ITS | Encounter Summary ---
Author Organization [facility] Address [address] [place] [address] Phone Care Team Providers Care Reinforcing Rod Layer Name Role Phone Johnna Tinajero MD Primary Care Provider + Johnna Tinajero MD Unavailable [phone] Reason for Visit * Reason Onset Date Comments EGD 09/14/2019 Encounter Details Date Type Department Care Team (Late st Contact Info) Description 09/14/2019 Documentation [facility] Pediatric Gastroenterology [facility] 2nd [place] [address] [place] [address] Nehemiah Zhao MD [address] [place] [address] [address] [place] [address] EGD Social History Tobacco Use Types Packs/Day Years Used Date Smoking Tobacco: Never PHQ-2 Answer Date Recorded PHQ-2 Score 4 06/28/2019 Comments No Sex and Gender Information Value Date Recorded Sex Assigned at Not on file 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 Small intestine, duodenum, biopsy ? - No histopathologic abnormality B. Stomach, antrum, biopsy ? - Chronic inactive gastritis ? - Pending H. Pylori stain C. Esophagus, distal, biopsy ? - No histopathologic abnormality [place] and H. Pylori IHC both negative per chart. DIAGNOSES: Nausea and vomiting, which prompted admission and this EGD. During the admission she was weaned off of Lexapro and started on Nortriptyline. Scheduled visit with PMD for 09/22 was cancelled and changed to 09/24. She is also scheduled to be seen back in ped GI by Dr. Colby on 10/05. Plan Natividad Mccarthy to call mother to review that H. Pylori testing from EGD was negative. Also to get update on status. Keep followups. Additional recommendations based on course. Family or patient notified by: Natividad Mccarthy will call to review above plan. Medication: Continue discharge regimen. Additional testing: To be determined based on course. Referrals: To be determined based on course. Next GI office appointment: As already scheduled and listed above. IGERATION SERVICE TECHNICIAN * Nehemiah Zhao MD - 09/14/2019 11:59 PM CST Please call them to review that H. Pylori testing (from in-pt EGD) is negative, get update on status, and advise they keep scheduled f/u and call if urgent questions. IGERATION SERVICE TECHNICIAN * Basilia Chambers RN - 09/14/2019 11:59 PM CST Called mom Reviewed scope results, Nina stopped vomiting since dc from [facility] Giving the nortriptyline time to work RPV with SIDNEY pending for 10/05 Mom to call with any concerns prior to this IGERATION SERVICE TECHNICIAN documented in this encounter Plan of Treatment Not on file documented as of this encounter Visit Diagnoses Not on filedocumented in this encounter Care Teams Reinforcing Rod Layer Relationship Specialty Start Date End Date Johnna Tinajero MD [address] [address] PCP - General Pediatrics 07/19/19 01/26/23 Johnna Tinajero MD [address] [address] 07/19/19 documented as of this encounter
--- OUTSIDE RECORDS SUMMARY | 2024-08-28 02:15 | XMS_ITS | Encounter Summary ---
Author Organization [facility] Healthcare Address [address] [place] [address] Care Team Providers Care Production Consultant Name Role Phone Johnna Tinajero MD Primary Care Provider + Johnna Tinajero MD Unavailable [phone] Reason for Visit * Reason Comments Vomiting Encounter Details Date Type Department Care Team (Late st Contact Info) Description 09/13/2019 11:19 AM MACHINE BRUSHER - 09/20/2019 1:[address] [facility] Hospital Encounter [facility] [address] [place] [address] Berny Montoya MD [address] [address] Klaudia Meneses MD 1 [facility] [address] [place] [id number] Macy Najera MD 1 [facility] [address] [place] [id number] Elpidio Gimenez MD 1 [facility] [address] [place] [address] Abdominal pain, unspecified abdominal location (Primary Dx); Nausea; Nausea and vomiting, intractability of vomiting not specified, unspecified vomiting type Discharge Disposition: Discharge to home or self care Social History Tobacco Use Types Packs/Day Years Used Date Smoking Tobacco: Never PHQ-2 Answer Date Recorded PHQ-2 Score 4 06/28/2019 Comments No Sex and Gender Information Value Date Recorded Sex Assigned at Not on file Legal Sex 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 MACHINE BRUSHER Gender Identity Not on file Sexual Orientation Not on file documented as of this encounter Last Filed Vital Signs Vital Sign Reading Time Taken Comments Blood Pressure 126/82 09/20/2019 11:13 AM MACHINE BRUSHER Pulse 92 09/20/2019 11:13 AM MACHINE BRUSHER Temperature 36.4 ??C (97.5 ??F) 09/20/2019 1 1:13 AM MACHINE BRUSHER Respiratory Rate 18 09/20/2019 11:1 3 AM MACHINE BRUSHER Oxygen Saturation 99% 09/20/2019 11: 13 AM MACHINE BRUSHER Inhaled Oxygen Concentration - - Weight 99.4 kg (219 lb 2.2 oz) 09/13/2019 6:35 P M MACHINE BRUSHER Height 161.5 cm (5' 3.58 ) 09/13/2019 6:35 PM CS T Body Mass Index 38.11 09/13/2019 6:35 PM MACHINE BRUSHER Body Mass Index Percentile 98.76% 09/13/2019 6:3 5 PM MACHINE BRUSHER Growth Chart: [facility] (Girls, 2- 20 Years) documented in this encounter Discharge Diagnoses Diagnosis Nausea with vomiting, unspecified - NAUSEA WITH VOMITING, UNSPECIFIED Mild protein-calorie malnutrition (CMS/HCC) (HCC) - MILD PROTEIN-CALORIE MALNUTRITION Adverse effect of selective serotonin reuptake inhibitors, initial encounter - ADVERSE EFFECT OF SELECTIVE SEROTONIN REUPTAKE INHIBITORS, INITIAL ENCOUNTER Dehydration - DEHYDRATION Unspecified asthma, uncomplicated - UNSPECIFIED ASTHMA, UNCOMPLICATED Corpus luteum cyst of right ovary - CORPUS LUTEUM CYST OF RIGHT OVARY pen[facility] (current) use of inhaled steroids - INTERMEDIATE (CURRENT) USE OF INHALED STEROIDS Anxiety disorder, unspecified - ANXIETY DISORDER, UNSPECIFIED Right lower quadrant pain - RIGHT LOWER QUADRANT PAIN Other mcc (current) drug therapy - OTHER LIBRARY SALES CONSULTANT (CURRENT) DRUG THERAPY Body mass index (bmi) pediatric, greater than or equal to 95th percentile for age - BODY MASS INDEX (BMI) PEDIATRIC, GREATER THAN OR EQUAL TO 95TH PERCENTILE FOR AGE Unspecified place or not applicable - UNSPECIFIED PLACE OR NOT APPLICABLE Exposure to other specified factors, initial encounter - EXPOSURE TO OTHER SPECIFIED FACTORS, INITIAL ENCOUNTER Allergy status to penicillin - ALLERGY STATUS TO PENICILLIN Other nonmedicinal substance allergy status - OTHER NONMEDICINAL SUBSTANCE ALLERGY STATUS documented in this encounter Discharge Summaries * Viktor Villagomez MD - 09/20/2019 11:16 AM CST Inpatient Discharge Summary BRIEF OVERVIEW Admitting Provider: Klaudia Meneses MD Discharge Provider: Macy Najera MD Primary Care Physician at Discharge: Johnna Tinajero MD [phone] Admission Date: 09/13/2019 Discharge Date: 09/20/2019 Admission Location: [facility] Chief Complaint: Persistent vomiting Primary [...] since improved however and she has seen PRINCIPAL EXAMINER in clinic who felt that the pain [...] 09/22/2019 1:15 PM Johnna Tinajero MD [facility] 10/05/2019 1:30 PM Florina Colby MD PD [facility] PD Contact Information for Follow-ups Johnna Tinajero MD Specialty: Pediatrics Relationship: PCP - General [address] [place] [address] Next Steps: Follow up Instructions: Appointment with PMD on September 22 @ 1:15 pm...... Cosigned by Macy Najera MD at 09/20/2019 7:55 PM MACHINE BRUSHER INE BRUSHER INE BRUSHER INE BRUSHER Associated attestation - Macy Najera MD - 09/20/2019 7:55 PM MACHINE BRUSHER I have seen and examined the patient [...] capsule 09/20/2019 0 omeprazole (PriLOSEC) 20 mg capsuleIndicatio [...] a day 60 capsule 11 09/20/2019 0 documented in this encounter Discharge [...] Macy Najera MD at 09/19/2019 12:21 PM MACHINE BRUSHER INE BRUSHER INE BRUSHER Associated attestation - Macy Najera MD - 09/19/2019 12:21 PM MACHINE BRUSHER I have seen and examined the patient [...] altered based on the results. 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 Anxiety 07/20/2019 ??? Asthma ??? Nausea [...] Pediatric Diet Regular Diet effective now Question: ([facility]) Diet type Answer: Regular 09/15/19 0907 [...] on 09/13/19. ?? Will follow per policy. INE BRUSHER INE BRUSHER * Sol Tapia MD - 09/18/2019 12:24 PM CST Pediatric Daily Progress Subjective Chief complaint of nausea, vomiting. Interval History: KENNETH. Had a better day yesterday. Was able [...] Macy Najera MD at 09/18/2019 2:38 PM MACHINE BRUSHER INE BRUSHER INE BRUSHER Associated attestation - Macy Najera MD - 09/18/2019 2:38 PM MACHINE BRUSHER I have seen and examined the patient [...] Macy Najera MD at 09/17/2019 9:09 PM MACHINE BRUSHER INE BRUSHER INE BRUSHER Associated attestation - Macy Najera MD - 09/17/2019 9:09 PM MACHINE BRUSHER I have seen and examined the patient [...] Macy Najera MD at 09/16/2019 9:19 PM MACHINE BRUSHER INE BRUSHER INE BRUSHER Associated attestation - Macy Najera MD - 09/16/2019 9:19 PM MACHINE BRUSHER I have seen and examined the patient [...] Klaudia Meneses MD at 09/15/2019 3:21 PM MACHINE BRUSHER INE BRUSHER INE BRUSHER INE BRUSHER Associated attestation - Klaudia Meneses MD - 09/15/2019 3:21 PM MACHINE BRUSHER I have seen and examined the patient on 09/15/19. I agree with the findings and plan of care as documented in the resident's/fellow's note. 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 Anxiety 07/20/2019 ??? Asthma ??? Nausea [...] (219 lb 2.2 oz) Total Protein DRI (REAL ESTATE LEGAL ASSISTANT/AI): 84.49 Protein DRI grams/kg/day: 0.85 Baseline Fluid [...] Pediatric Diet Regular Diet effective now Question: ([facility]) Diet type Answer: Regular 09/14/19 1156 [...] ?? Will follow per policy RD available [phone] INE BRUSHER * Viktor Villagomez MD - 09/14/2019 1:01 [...] Klaudia Meneses MD at 09/15/2019 3:26 PM MACHINE BRUSHER INE BRUSHER INE BRUSHER Associated attestation - Klaudia Meneses MD - 09/15/2019 3:26 PM MACHINE BRUSHER I have seen and examined the patient [...] since improved however and she has seen PRINCIPAL EXAMINER in clinic who felt that the pain was likely from the cyst but would not explain the persistent nausea. From July on she has had daily nausea with vomiting 1-2x per day this month. She was seen by GI who started prilosec and planned an EGD for lateJan. Nina feels the prilosec has not improved [...] in 12th grade and plans to attend [employer] next year. 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 Anxiety 07/20/2019 ??? Asthma ??? Nausea [...] Klaudia Meneses MD at 09/14/2019 10:05 PM MACHINE BRUSHER INE BRUSHER INE BRUSHER Associated attestation - Klaudia Meneses MD - 09/14/2019 10:05 PM MACHINE BRUSHER I have seen and examined the patient [...] (Doctor), Alicia Song RN (Nurse), Marianna Harp, Haul Truck Driver (Haul Truck Driver), Basilia Clark CRNA (Admissions Nurse), Anabela Hawley M.D. (Admissions Nurse), Roma Martinez, Fellow (Fellow) Referring MD: [...] by the physician, the nurse and the conveyor installer. The time out was done in the room prior to the start of the procedure. After I obtained informed consent, the scope was passed under direct vision. Throughout the procedure, the patient's blood pressure, pulse, and oxygen saturations were monitored continuously by anesthesia. The GIF [id number] #[id number] upper endoscope was introduced through the mouth, [...] was physically present during the entire procedure. Marissa Rodriguez Number of Addenda: 0 Note Initiated On: 09/14/2019 9:59 AM INE BRUSHER INE BRUSHER INE BRUSHER documented in this encounter Nursing Notes * Elpidio Mcintyre RN - 09/20/2019 1:50 PM CST Discharged 09/20/2019 at 1350 in the care of mother, patient ambulated off unit. 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 Anxiety 07/20/2019 ??? Asthma ??? Nausea [...] Time: 09/13 1621 Comment: TRANSITION OF CARE: Cris Lind MD, am taking signout from Akash Isaac [...] Rosette Camara MD at 09/14/2019 11:29 PM MACHINE BRUSHER INE BRUSHER INE BRUSHER Associated attestation - Rosette Camara MD - 09/14/2019 11:29 PM MACHINE BRUSHER I have supervised the care of the patient on 09/13/[address] Montoya. I agree with the findings and plan of care as documented in the resident's note. * Any Zuniga, GLENDA - 09/13/2019 11:19 AM CST Bed: ED1-22 Expected date: 09/13/19 Expected time: 8:25 AM Means of arrival: Car Comments: Any Zuniga RN 09/13/19 1119 INE BRUSHER * Jennifer Lorenzo RN - 09/13/2019 10:20 AM CST Vomiting since last night, about 12x. Last episode just now in triage. Patient with ongoing nausea x2 months. INE BRUSHER documented in this encounter Miscellaneous Notes * [...] Lili Villalpando MD at 09/22/2019 2:06 PM MACHINE BRUSHER INE BRUSHER INE BRUSHER * Plan of Care - Stream, Carolina Horton RN - 09/20/2019 4:20 AM [...] had limited PO intake throughout the night INE BRUSHER * Plan of Care - Nhi Ramirez [...] of discharge needs will improve Outcome: Progressing INE BRUSHER * Assessment & Plan Note - Viktor [...] - KUB to evaluate passage of contrast INE BRUSHER INE BRUSHER INE BRUSHER * Assessment & Plan Note - Viktor Villagomez MD - 09/19/2019 10:53 AM CSTAssociated Problem(s): Mild malnutrition (HCC) (Resolved 08/22/2020) 15 pound weight loss over several months due to chronic nausea and vomiting with resultant poor appetite. - Manage nausea symptoms - nutrition consult INE BRUSHER * Assessment & Plan Note - Viktor [...] for pain, avoid NSAIDS - Continue OCP INE BRUSHER INE BRUSHER * Subjective & Objective - Viktor Villagomez [...] 09/15/19 - Normal MRI of the brain. INE BRUSHER * Plan of Care - Bibiana Hernandez [...] dinner. Still poor fluid PO, on mIVF INE BRUSHER * Plan of Care - Nina Saleh [...] had improved PO intake and improved nausea. INE BRUSHER * Assessment & Plan Note - Sol Tapia MD - 09/18/2019 12:24 PM MACHINE BRUSHER Associated Problem(s): Mild malnutrition (HCC) (Resolved 08/22/2020) 15 pound weight loss over several months due to chronic nausea and vomiting with resultant poor appetite. - Manage nausea symptoms - nutrition consult INE BRUSHER * Assessment & Plan Note - Sol Tapia MD - 09/18/2019 12:17 PM MACHINE BRUSHER Associated Problem(s): Chronic nausea 2 month history [...] if contrast cleared, gastric emptying if clear. INE BRUSHER * Assessment & Plan Note - Sol Tapia MD - 09/18/2019 12:17 PM MACHINE BRUSHER Associated Problem(s): Abdominal pain Right lower quadrant [...] for pain, avoid NSAIDS - Continue OCP INE BRUSHER * Subjective & Objective - Sol Tapia MD - 09/18/2019 12:15 PM MACHINE BRUSHER Pediatric Daily Progress Subjective Chief complaint of [...] 09/15/19 - Normal MRI of the brain. INE BRUSHER * Medical Student - Jaswant Pastrana - [...] Nehal Salgado MD at 09/18/2019 11:14 AM MACHINE BRUSHER INE BRUSHER INE BRUSHER * Plan of Care - Bibiana Hernandez [...] episode of emesis after eating. Poor PO INE BRUSHER * Plan of Care - Nina Saleh [...] nausea Summary: Nausea and intake mildly improved. INE BRUSHER * Assessment & Plan Note - Viktor [...] nausea - Gastric emptying study next week INE BRUSHER * Assessment & Plan Note - Viktor Villagomez MD - 09/17/2019 3:13 PM CSTAssociated Problem(s): Mild malnutrition (HCC) (Resolved 08/22/2020) 15 pound weight loss over several months due to chronic nausea and vomiting with resultant poor appetite. - Manage nausea symptoms - nutrition consult - Consider cyproheptadine INE BRUSHER * Assessment & Plan Note - Viktor [...] for pain, avoid NSAIDS - Continue OCP INE BRUSHER * Subjective & Objective - Viktor Villagomez MD - 09/17/2019 3:11 PM CST Pediatric [...] 09/15/19 - Normal MRI of the brain. INE BRUSHER * Medical Student - Jaswant Pastrana - [...] Code: Full Code Diet:??Regular diet ?? Jaswant Calhounroosevelt, Cosigned by Nehal Salgado MD at 09/17/2019 11:49 AM MACHINE BRUSHER INE BRUSHER INE BRUSHER * Plan of Care - Tila Harmon [...] discharge needs will improve Outcome: Progressing Summary: INE BRUSHER * Plan of Oscar - Nina Saleh RN - 09/16/2019 6:45 PM CST Problem: Lack of Knowledge: Goal: Ability to make informed decisions regarding treatment will improve Outcome: Progressing Problem: Coping: Goal: Ability to cope will improve Outcome: Progressing Problem: Health Behavior: Goal: Identification of resources available to assist in meeting health care needs will improve Outcome: Progressing Goals: Clinical Goals for the Shift: nausea management, INE BRUSHER * Assessment & Plan Note - Viktor [...] nausea - Gastric emptying study next week INE BRUSHER INE BRUSHER * Assessment & Plan Note - Viktor Villagomez MD - 09/16/2019 11:42 AM CSTAssociated Problem(s): Mild malnutrition (HCC) (Resolved 08/22/2020) 15 pound weight loss over several months due to chronic nausea and vomiting with resultant poor appetite. - Manage nausea symptoms - nutrition consult - Consider cyproheptadine INE BRUSHER * Assessment & Plan Note - Viktor [...] for pain, avoid NSAIDS - Continue OCP INE BRUSHER * Subjective & Objective - Viktor Villagomez [...] 09/15/19 - Normal MRI of the brain. INE BRUSHER * Medical Student - Jaswant Pastrana - [...] Nehal Salgado MD at 09/16/2019 11:19 AM MACHINE BRUSHER INE BRUSHER INE BRUSHER * Plan of Care - Jaswant Phan RN - 09/15/2019 9:49 PM CST Goals: Clinical Goals for the Shift: Zofran for nausea, pain control, monitor i/o Summary: Reviewed overnight plan of care with patient, mother. Encouraged po, nausea control. INE BRUSHER * Plan of Care - Elpidio Mcintyre [...] the pain. Nina remains free of falls. INE BRUSHER * Assessment & Plan Note - Viktor [...] lexapro vs start cyproheptadine - Zofran prn INE BRUSHER * Assessment & Plan Note - Viktor Villagomez MD - 09/15/2019 2:52 PM CSTAssociated Problem(s): Mild malnutrition (HCC) (Resolved 08/22/2020) 15 pound weight loss over several months due to chronic nausea and vomiting with resultant poor appetite. - Manage nausea symptoms - nutrition consult INE BRUSHER * Assessment & Plan Note - Viktor [...] for pain, avoid NSAIDS - Continue OCP INE BRUSHER * Subjective & Objective - Viktor Villagomez [...] Imaging: Upper GI series 09/15/19 - normal INE BRUSHER * Medical Student - Jaswant Pastrana - [...] Selin Cosigned by Nehal Salgado MD at 09/15/2019 11:46 AM MACHINE BRUSHER INE BRUSHER INE BRUSHER INE BRUSHER * Plan of Care - Lety Thompson [...] series today. Pain got up to 5/10. INE BRUSHER * Plan of Care - Elpidio Mcintyre [...] Tolerated scope, poor PO intake after scope. INE BRUSHER * Assessment & Plan Note - Viktor [...] ECG for prolonged zofran use - UDS INE BRUSHER * Assessment & Plan Note - Viktor [...] for pain, avoid NSAIDS - Continue OCP INE BRUSHER * Subjective & Objective - Viktor Villagomez [...] POC Negative Leukocyte esterase, ur, POC Negative INE BRUSHER * Perioperative Nursing Note - Shawna Monae RN - 09/14/2019 11:50 AM MACHINE BRUSHER Patient awake and drinking Sprite on the transport to the [address] unit. No complaints of noted at this time. Oxygen saturations greater than 94% on RA with no distress noted. Family present with patient. Patient able to transfer self from stretcher to her bed without any difficulties. No questions orconcerns of noted at this time. Report given to GLENDA Magallanes patient's floor RN. INE BRUSHER * Hospital Course - LjrooseveltJaswant - 09/14/2019 10:46 AM CST In ED [...] with GI follow up in 2-3 weeks. INE BRUSHER INE BRUSHER INE BRUSHER INE BRUSHER INE BRUSHER INE BRUSHER INE BRUSHER INE BRUSHER INE BRUSHER INE BRUSHER * Plan of Care - Lety Thompson [...] x1. NPO since midnight. Denies any pain. INE BRUSHER * Assessment & Plan Note - Viktor [...] marijuana use. - Admit to GI - FLVF - NPO at midnight for EGD 09/14 - Zofran prn INE BRUSHER INE BRUSHER * Assessment & Plan Note - Viktor [...] for pain, avoid NSAIDS - Continue OCP INE BRUSHER INE BRUSHER * Medical Student - Zeina Jaswant - 09/13/2019 7:02 PM CST Pediatric H&P [...] and abdominal pain, latricia was admitted to [facility] from 07/19-07/23 and was subsequently diagnosed with slow leaking ruptured ovarian cyst. During admission, extensive workup was done (normal pelvic/ovaries US, normal gallbladder US, labs wnl), including CT abdomen/pelvis w/ contrast (due to continued pain and rebound tenderness on exam) which showed right ovarian corpus lutealcyst w/ small amount of fluid in the cul-de-sac which BUFFING MACHINE TENDER thought may explain her pain. Patient was [...] patient also followed up with OBGYN at [facility] (Dr. Crum) who confirmed that the ovarian [...] function because GI doc was concerned for terminal gauger supervisor effects. During this time patient reports [...] Ruptured Ovarian Cyst - resolved at last BUFFING MACHINE TENDER visit, on OCP (norgestin) for prevention of [...] She is in 12th grade and attending [employer] next year. She has friends she likes [...] Diet: NPO at midnight 09/14 for EGD Selin Crespo Cosigned by Nehal Salgado MD at 09/15/2019 11:01 AM MACHINE BRUSHER INE BRUSHER INE BRUSHER INE BRUSHER * Plan of Care - Haily Becker RN - 09/13/2019 6:44 PM CST Goals: Have decreased nausea Summary: Problem: Bowel/Gastric: Goal: Ability to maintain baseline age appropriate bowel function will improve Outcome: Not Progressing Problem: Fluid Volume: Goal: Ability to maintain a balanced intake and output will improve Outcome: Not Progressing INE BRUSHER * Subjective & Objective - Viktor Villagomez [...] since improved however and she has seen PRINCIPAL EXAMINER in clinic who felt that the pain [...] in 12th grade and plans to attend [employer] next year. 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 Anxiety 07/20/2019 ??? Asthma ??? Nausea [...] and Ovaries R/o torsion 09/13/19 - Normal INE BRUSHER INE BRUSHER INE BRUSHER * ED Re-evaluation Note - Berny Montoya MD - 09/13/2019 1:50 PM MACHINE BRUSHER ED Re-evaluation I have reviewed and confirmed the history and personally examined the patient. I discussed the findings, interventions, and diagnostic testing with the resident. I agree with the findings as presented without exceptions in our respective documentation. Berny Montoya MD 10/15/19 0937 INE BRUSHER * ED Pre-Arrival Note - Any Zuniga, GLENDA - 09/13/2019 8:25 AM MACHINE BRUSHER Pre-Arrival Note Pt vomiting since last night x10; no uop > 6hrs; coming in for dehydration Any Zuniga, GLENDA INE BRUSHER documented in this encounter Plan of Treatment Not on file documented as of this encounter Procedures Procedure Name Priority Date/Time Associated Diagnosis Comments XR KUB IP Routine 09/19/2019 12:07 PM MACHINE BRUSHER MRI BRAIN W WO CONTRAST GOBRAIN IP Routine 09/15/2019 2:38 PM MACHINE BRUSHER FL UPPER GI SERIES, SINGLE CONTRAST IP Routine 09/15/2019 8:47 AM MACHINE BRUSHER DRUG SCREEN, URINE Routine 09/14/2019 2:20 PM MACHINE BRUSHER ECG 12-LEAD Routine 09/14/2019 12:39 PM MACHINE BRUSHER H. PYLORI UREASE SCREEN (MAGALIE TEST) Routine 09/14/2019 11:03 AM MACHINE BRUSHER ESOPHAGOGASTRODUODENOSCOPY BIOPSY 09/14/2019 10:18 AM MACHINE BRUSHER Abdominal pain, unspecified abdominal location Nausea SURGICAL PATHOLOGY Routine 09/14/2019 10:05 AM MACHINE BRUSHER Abdominal pain, unspecified abdominal location Nausea EGD 09/14/2019 9:59 AM MACHINE BRUSHER POCT URINALYSIS (CLINITEK) Routine 09/13 2:11 PM MACHINE BRUSHER HCG, URINE, QUALITATIVE STAT 09/13/19 2:07 PM MACHINE BRUSHER US PELVIS AND OVARIAN DOPPLE R LIMITED (C) ED 09/13/2019 1:20 PM MACHINE BRUSHER documented in this encounter Results * XR Kub (09/19/2019 12:07 PM MACHINE BRUSHER) Anatomical Region Laterality Modality Body, Abdomen N/A Computed Radiogr aphy 09/19/2019 12:1 4 PM MACHINE BRUSHER Impressions 09/19/2019 12:14 PM MACHINE BRUSHER Residual barium is seen within the transverse and descending colon. There is no evidence of obstruction. Electronically signed by: Sherly To M.D. Narrative 09/19/2019 12:14 PM MACHINE BRUSHER EXAMINATION: ??XR KUB HISTORY: ??Evaluate barium clearance [...] W WO Contrast GoBrain (09/15/2019 2:38 PM MACHINE BRUSHER) Anatomical Region Laterality Modality Head and Neck N/A Magnetic Resonan ce 09/15/2019 3:36 PM MACHINE BRUSHER Impressions 09/15/2019 4:28 PM MACHINE BRUSHER Normal MRI of the brain. Dictated by: Jeff Goldberg M.D. The radiology attending physician has personally reviewed this study, and had reviewed and/or edited this written report and agrees with it. Electronically signed by: Igor Mayorga M.D. Narrative 09/15/2019 4:28 PM MACHINE BRUSHER EXAMINATION: Magnetic resonance imaging (MRI) of the [...] it. Electronically signed by: Igor Mayorga M.D. Klaudia Meneses MD IMG MRI PROCEDURES Final Re sult * FL Upper GI Series, Single Contrast (09/15/2019 8:47 AM MACHINE BRUSHER) Anatomical Region Laterality Modality Body N/A Computed Radiogr aphy 09/15/2019 8:57 AM MACHINE BRUSHER Impressions 09/15/2019 8:58 AM MACHINE BRUSHER Normal. Dictated by: Sancho Bailey M.D. The radiology attending physician has personally reviewed this study, and had reviewed and/or edited this written report and agrees with it. Electronically signed by: Kayleen Deleon M.D. Narrative 09/15/2019 8:58 AM MACHINE BRUSHER EXAMINATION: ??FL UPPER GI SERIES, SINGLE CONTRAST HISTORY: ??19-year-old girl with persistent nausea/vomiting COMPARISON: ??None. ??Correlation with CT abdomen and pelvis 07/21/2019. FINDINGS: ??The initial process design chemical engineer image is unremarkable. The child drank thin [...] abdomen and pelvis 07/21/2019. FINDINGS: The initial process design chemical engineer image is unremarkable. The child drank thin [...] by: Kayleen Deleon M.D. Klaudia Meneses MD IMG FLUOROSCOPY PROCEDURES Final Result * (ABNORMAL) Drug screen, urine (09/14/2019 2:20 PM MACHINE BRUSHER) Pathologist [facility] Drug screen, ur Positive(A) [facility] Comment: The following compounds were detected: ?? Fentanyl, Repeated and verified. Chopper Gun Operator review to follow. Interpretive Data This test detects the presence of approximately 50 substances using LC-tandem mass spectrometry. For a list of specific compounds and detection limits refer to the Lab Test Guide Book. While this technique is highly specific, false-positive and false-negative findings may occur in very rare circumstances. Contact the Chopper Gun Operator correctional cook ([phone]) for consultation if needed. This test was developed and its performance characteristics determined by [facility]. It has not been cleared or approved by the U.S. Food and Drug Administration. Current interpretive data was last revised 2016. Director Review Verified [facility] Comment:Upon Medical Directo r review, no additional compounds were detected. Urine 09/14/2019 2:20 PM MACHINE BRUSHER 09/14/2019 2:25 PM MACHINE BRUSHER Klaudia Meneses MD LAB URINE ORDERABLES Final Result [facility] [place] [address] * ECG 12 lead (09/14/2019 12:39 PM MACHINE BRUSHER) Ventricular Rate EKG/Min 77 BPM [facility] Atrial Rate 77 BPM [facility] AK-Interval (MSEC) 142 ms [facility] QRS-Interval (MSEC) 74 ms [facility] QT-Interval (MSEC) 378 ms [facility] QTc 440 ms [facility] P [place] 38 degrees [facility] R [place] 4 degrees [facility] T [place] 9 degrees [facility] Diagnosis Normal sinus rhythm Normal ECG When compared with ECG of 25-AUG-2019 12:24, No significant change was found Confirmed by MD NISHA, FELICE ([id number]) on 09/14/2019 1:40:56 PM [facility] 09/14/2019 12:3 9 PM MACHINE BRUSHER 09/14/2019 1:40 PM MACHINE BRUSHER Klaudia Meneses MD ECG ORDERABLES Final Resul t Performing Organization Address City/[facility]/ZIP Co de Phone Number [facility] * H. pylori urease screen (MAGALIE test) Tissue Gastric (09/14/2019 11:03 AM MACHINE BRUSHER) H. pylori, rapid (MAGALIE) Negative [facility] Comment: MAGALIE is an acronym for 'Campylobacter [...] on 17. Tissue (Gastric) 09/14/2019 11:03 AM MACHINE BRUSHER 09/14/2019 11:12 AM MACHINE BRUSHER Klaudia Meneses MD LAB MICROBIOLOGY - GENERAL ORDERABLES Final Result [facility] [place] [address] * Surgical pathology (09/14/2019 10:05 AM MACHINE BRUSHER) Tissue (Duodenum, Biopsy) 09/14/2019 10:05 AM MACHINE BRUSHER Tissue (Antrum and/or Body) 09/14/2019 10:05 AM MACHINE BRUSHER Tissue (Esophageal biopsy) 09/14/2019 10:05 AM MACHINE BRUSHER Narrative PATHOLOGY [facility] - 09/15/2019 11:17 AM MACHINE BRUSHER EPIC results best viewed via link to PDF [facility]bonie Tran [facility] [place] [address] [facility] FINAL WITH ADDENDUM Patient Name: ?? NINA COYNE Gender: ??F : ??2000 (Age: 19) Address: ??[address] [place] [address] ??[id number] Hospital #: ??[id number] Taken:09/14/2019 Received:09/14/2019 Reported: 09/15/2019 Patient Type: [facility] Inpatient ?? Service: Gastro Location: [facility] ??[id number] Physician(s): ??Klaudia Meneses M.D. Johnna Tinajero M.D. [...] determined by the Surgical Pathology Department at [facility] as part of an ongoing quality compliance consultant program and in compliance with federally mandated [...] determined by the Surgical Pathology Department of [facility]. ??It has not been cleared or approved by the U. S. Food and Drug Administration. IMAGES AND SCANNED DOCUMENTS, IF INCLUDED, ONLY VIEWABLE IN PDF VERSION OF REPORT us Klaudia Meneses MD LAB PATHOLOGY ORDERABLES [facility] Result PATHOLOGY [facility] [phone] * EGD (09/14/2019 9:59 AM MACHINE BRUSHER) Anatomical Region Laterality Modality Other Narrative Procedure Note Klaudia Meneses MD - 09/14/2019 9:59 AM CST Patient Name: Nina Coyne Procedure Date: 09/14/2019 9:59 AM Date of : 2000 Admit Type: Inpatient Age: 19 Gender: Female Attending MD: Klaudia Meneses M.D. Procedure: Pediatric Upper GI Endoscopy Providers: Klaudia Meneses M.D. (Doctor), Alicia Song RN (Nurse), Marianna Harp, Haul Truck Driver (Haul Truck Driver), ErinL. Amber CRNA (Admissions Nurse), Anabela Hawley M.D. (Admissions Nurse), Roma Martinez, Fellow (Fellow) Referring MD: [...] by the physician, the nurse and the conveyor installer. The time out was done inthe room prior to the start of the procedure. After I obtained informed consent, the scope was passed under direct vision. Throughout the procedure, the patient's blood pressure, pulse, and oxygensaturations were monitored continuously by anesthesia. The GIF [id number] #[id number] endoscope was introduced through the mouth, and [...] and was physicallypresent during the entire procedure. Marissa Rodriguez Number of Addenda: 0 Note Initiated On: 09/14/2019 9:59 AM Klaudia Meneses MD ENDOSCOPY PROCEDURES Edited Result - Final * (ABNORMAL) POCT urinalysis (Clinitek) (09/13/2019 2:11 PM MACHINE BRUSHER) Color, ur, POC Yellow [facility] Clarity, [...] [facility] Leukocyte esterase, ur, POC Negative [facility] Urine 09/13/2019 2:11 PM MACHINE BRUSHER 09/13/2019 2:11 PM MACHINE BRUSHER Berny Montoya MD LAB POCT ORDERABLES - TATYANA CE Final Result [facility] [place] [address] * hCG, urine, qualitative (09/13/2019 2:07 PM MACHINE BRUSHER) HCG, ur Negative Negative [facility] Urine 09/13/2019 2:07 PM MACHINE BRUSHER 09/13/2019 2:17 PM MACHINE BRUSHER us Berny Montoya MD LAB URINE ORDERABLES Final Result [facility] [place] [address] * US Pelvis and Ovarian Doppler Limited (R/O Torsion in a pelvis) (09/13/2019 1:20 PM MACHINE BRUSHER) Anatomical Region Laterality Modality Pelvis N/A Ultrasound 09/13/2019 1:25 PM MACHINE BRUSHER Impressions 09/13/2019 2:34 PM MACHINE BRUSHER Normal. Dictated by: Kunal Hdez M.D. , PHD The radiology attending physician has personally reviewed this study, and had reviewed and/or edited this written report and agrees with it. Electronically signed by: Sherly To M.D. Narrative 09/13/2019 2:34 PM MACHINE BRUSHER EXAMINATION: ??US PELVIS AND OVARIAN DOPPLER LIMITED [...] Abdominal pain, unspecified site Nausea Nausea alone Mild malnutrition (HCC) documented in this encounter Admitting Diagnoses Diagnosis [...] Indications: Fever, PainIndications:Fever,Pain Given 09/15/2019 10:24 PM MACHINE BRUSHER 650 mg Given 09/15/2019 4:27 PM MACHINE BRUSHER 650 mg Given 09/14/2019 12:04 PM MACHINE BRUSHER 650 mg albuterol 2.5 mg/0.5 mL nebulizer solution 2.5 mg 2.5 mg, nebulization, Once, On Thu09/14/19 at 1145, For 1 dose, Phase I, Notify anesthesiologist to evaluate, Indications: WheezingIndications:Wheezing Given 09/14/2019 11:02 AM MACHINE BRUSHER 2.5 mg barium sulfate (LIQUID POLIBAR PLUS) 105 % (w/v), 58 % (w/w) suspension 400 mL 400 mL, oral, Once in imaging, contrast, Starting on Celia 16/20 at 0847, For 1 dose, Marvin phillips, Indications: Digestive System RadiographyIndications:Digestive System Radiography Given 09/15/2019 8:48 AM MACHINE BRUSHER 200 mL dextrose 5% and sodium chloride 0.9% with potassium chloride 20 mEq/L infusion (premix) 1.5 L/m2/day ? 2.13 m2 (133.125 mL/hr, rounded to 133.1 mL/hr), intravenous, Continuous, Starting on Thu09/13/19 at 1816 New Bag 09/18/2019 5:45 AM MACHINE BRUSHER 1.5 L/m2/day 133.1 mL/hr Rate/Dose Verify 09/18/2019 2:08 AM MACHINE BRUSHER 1.5 L/m2/day 133.1 mL/hr Rate/Dose Verify 09/17/2019 11:35 PM MACHINE BRUSHER 1.5 L/m2/day 133. 1 mL/hr dextrose 5% and sodium chloride 0.9% with potassium chloride 20 mEq/L infusion (premix) 50 mL/hr, intravenous, Continuous, Starting on Thu09/18/19 at 1300 New Bag 09/20/2019 5:44 AM MACHINE BRUSHER 100 mL/hr 100 mL/hr New Bag 09/19/2019 9:18 PM MACHINE BRUSHER 100 mL/hr 100 mL/hr New Bag 09/19/2019 8:02 PM MACHINE BRUSHER 100 mL/hr 100 mL/hr escitalopram (LEXAPRO) tablet 10 mg 10 mg, oral, Daily, First dose (after last modification) on Thu09/15/19 at 2100 Given 09/18/2019 8:09 PM MACHINE BRUSHER 10 mg Given 09/17/2019 8:00 PM MACHINE BRUSHER 10 mg Given 09/16/2019 8:38 PM MACHINE BRUSHER 10 mg escitalopram (LEXAPRO) tablet 20 mg 20 mg, oral, Daily, First dose on Thu09/13/19 at 2230 Given 09/14/2019 8:48 PM MACHINE BRUSHER 20 mg fluticasone furoate-vilanterol (BREO ELLIPTA) 100-25 mcg/dose inhaler 1 puff 1 puff, inhalation, Daily, First dose on Thu09/13/19 at 2100, Drug Name: fluticasone furoate-vilanterol (Breo Ellipta) 100-25 mcg/dose diskus, Form: inhaler, Length of Therapy: Indefinite, How soon needed? (normally 72 hrs needed to procure): 0-24 hrs, Reason for Non-Formulary: home med not on formulary Given 09/19/2019 8:02 PM MACHINE BRUSHER 1 puff Given 09/18/2019 8:09 PM MACHINE BRUSHER 1 puff Given 09/17/2019 8:00 PM MACHINE BRUSHER 1 puff gadoterate meglumine (DOTAREM) 0.5 mmol/mL injection 20 mL 20 mL, intravenous, Once in imaging, contrast, Starting on Thu09/15/19 at 1427, For 1 dose Given 09/15/2019 2:38 PM MACHINE BRUSHER 20 mL Right Antecubital lansoprazole (PREVACID) capsule 15 mg 15 mg, oral, 2 times daily, First dose on Thu09/14/19 at 1245, Do not crush, chew, cut, dissolve, open or otherwise manipulate tablet/capsule., Indications: Treatment of Non-Bleeding Gastric DisorderIndications:Treatment of Non-Bleeding Gastric Disorder Given 09/20/2019 8:50 AM MACHINE BRUSHER 15 mg Given 09/19/2019 8:02 PM MACHINE BRUSHER 15 mg Given 09/19/2019 9:46 AM MACHINE BRUSHER 15 mg lidocaine 1% buffered injection 0.1 mL 0.1 mL, subcutaneous, Once, On Thu09/13/19 at 1657, For 1 dose, Maximum daily dose 0.1 mL/kg, Administer immediately prior to procedure. Given 09/13/2019 5:14 PM MACHINE BRUSHER 0.1 mL Other (Comment) lidocaine 1% buffered injection 0.1 mL 0.1 mL, subcutaneous, As needed, other, IV insertion, Starting on Thu09/18/19 at 2025, Maximum daily dose 0.1 mL/kg Administer immediately prior to procedure. Given 09/18/2019 9:46 PM MACHINE BRUSHER 0.1 mL Other (Comment) norgestimate-ethinyl estradiol (ORTHO [...] not on formulary Given 09/19/2019 8:02 PM MACHINE BRUSHER 1 tablet Given 09/18/2019 8:09 PM MACHINE BRUSHER 1 tablet Given 09/17/2019 8:00 PM MACHINE BRUSHER 1 tablet nortriptyline (PAMELOR) capsule 10 mg 10 mg, oral, Nightly, First dose on Thu09/16/19 at 2100 Given 09/18/2019 8:09 PM MACHINE BRUSHER 10 mg Given 09/17/2019 8:01 PM MACHINE BRUSHER 10 mg Given 09/16/2019 9:16 PM MACHINE BRUSHER 10 mg nortriptyline (PAMELOR) capsule 10 mg 10 mg, oral, 2 times daily, First dose (after last modification) on Thu09/19/19 at 1430 Given 09/19/2019 8:03 PM MACHINE BRUSHER 10 mg Given 09/19/2019 2:56 PM MACHINE BRUSHER 10 mg ondansetron ODT (ZOFRAN-ODT) disintegrating tablet 4 mg 4 mg, oral, Once, On Thu09/13/19 at 1025, For 1 dose, Maximum dose = 4 mg Given 09/13/2019 10:27 AM MACHINE BRUSHER 4 mg ondansetron ODT (ZOFRAN-ODT) disintegrating tablet 4 mg 4 mg, oral, Every 6 hours PRN, nausea, vomiting, Starting on Thu09/13/19 at 1815 Given 09/16/2019 9:38 AM MACHINE BRUSHER 4 mg Given 09/15/2019 4:28 PM MACHINE BRUSHER 4 mg Given 09/15/2019 8:58 AM MACHINE BRUSHER 4 mg polyethylene glycol (MIRALAX) packet 17 g 17 g, oral, Daily, First dose on Thu09/19/19 at 0930, Mix 17 grams in 8 ounces of fluid, Indications: constipationIndications:constipation Given 09/20/2019 8:50 AM MACHINE BRUSHER 17 g Given 09/19/2019 9:47 AM MACHINE BRUSHER 17 g documented in this encounter Discontinued [...] Recently Administered Medications Times are shown in MACHINE BRUSHER. Scheduled Medication Order 09/18/2019 09/19/2019 09/20/2019 escitalopram [...] 2001 (Given - Provider: Carolina Ram RN) nortriptyline (PAMELOR) capsule 10 mg (CANCELED) [...] Saleh RN)2001 (New Bag - Provider: Carolina Ram RN)2118 (New Bag - Provider: Carolina Ram RN) [...] 0.1 mL/kg Administer immediately prior to procedure. 2146 (Given - Provider: Bibiana Hernandez RN - Comment: IV) documented in this encounter Orders Medications Ordered That Jonny ht Not Have Been Administered Count Last Ordered Date First Ordered Date cyproheptadine (PERIACTIN) 4 mg tablet 4 mg 1 09/15/2019 albuterol 2.5 mg/0.5 mL nebu lizer solution - ADS Override Pull 1 09/14/2019 Lactated Ringer's (LR) infusion 1 0 ondansetron (ZOFRAN) injection 4 mg 1 09/14 Diet Count Last Ordered Date First Orde [...] 09/13/2019 documented in this encounter Care Teams Production Consultant Relationship Specialty Start Date End Date Jonhna Tinajero MD [address] [address] PCP - General Pediatrics 07/19/19 01/26/23 Johnna Tinajero MD [address] [address] 07/19/19 documented as of this encounter
--- OUTSIDE RECORDS SUMMARY | 2024-08-28 02:15 | XMS_ITS | Encounter Summary ---
Author Organization [facility] Address [address] [place] [phone] Phone Care Team Providers Care Vp Ancillary Name Role Phone Johnna Tinajero MD Primary Care Provider + Johnna Tinajero MD Unavailable [phone] Reason for Visit * Reason Onset Date Comments Med Refill 09/05/2019 Encounter Details Date Type Department Care Team (Late st Contact Info) Description 09/05/2019 Telephone [facility] [address] [place] [address] Johnna Tinajero MD [address] [place] [address] Med Refill Social History Tobacco Use Types Packs/Day Years Used Date Smoking Tobacco: Never PHQ-2 Answer Date Recorded PHQ-2 Score 4 06/28/2019 Comments No Sex and Gender Information Value Date Recorded Sex Assigned at Not on file Legal Sex 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 CREW LEADER/CONTROL ROOM OPERATOR Gender Identity Not on file Sexual Orientation Not on file documented as of this encounter Ordered Prescriptions Prescription Sig Dispense Quantity Refills Last Filled Start Date End Date ondansetron ODT (ZOFRAN-ODT) 4 mg disintegrating tabletIndications:Na usea Take 1 tablet (4 mg total) by mouth every 6 (six) hours as needed for nausea or vomiting 20 tablet 09/05/2019 0 documented in this encounter Miscellaneous Notes * Telephone Encounter - Basilia Dillard RN - 09/05/2019 4:43 PM CREW LEADER/CONTROL ROOM OPERATOR PC from mom requesting refill for Zofran for ongoing nausea/abdominal discomfort. Seen in office on09/02/2019 and was discussed but not sent. Mom also following up on conversation for Dr. Zhao's office and per Dr. Tinajero, they will call mom to schedule further testing/appointment. OK per Dr. Tinajero to fill Zofran. LEADER/CONTROL ROOM OPERATOR * Telephone Encounter - Any Syed RN - 09/05/2019 4:40 PM CST PC from Mother for Zofran refill. LEADER/CONTROL ROOM OPERATOR documented in this encounter Plan of Treatment Not on file documented as of this encounter Visit Diagnoses Diagnosis Nausea Nausea alone documented in this encounter Discontinued Medications Medication Sig Discontinue Reason Start Date End Da te ondansetron ODT (ZOFRAN-ODT) 4 mg disintegrating tabletIndications:Nausea Take 1 tablet (4 mg total) by mouth every 6 (six) hours as needed for nausea or vomiting Reorder 08/11/2019 09/05/2019 documented as of this encounter Care Teams Vp Ancillary Relationship Specialty Start Date End Date Johnna Tinajero MD [address] [address] PCP - General Pediatrics 07/19/19 01/26/23 Johnna Tinajero MD [address] [address] 07/19/19 documented as of this encounter
--- OUTSIDE RECORDS SUMMARY | 2024-08-28 02:15 | XMS_ITS | Encounter Summary ---
Author Organization [facility] Address [address] [place] [address] [address] [place] [address] Phone Care Team Providers Care Sales Representative Metals Name Role Phone Johnna Tinajero MD Primary Care Provider + Johnna Tinajero MD Unavailable [phone] Encounter Details Date Type Department Care Team (Late st Contact Info) Description 10/12/2019 Telephone [facility] [address] [place] [address] Johnna Tinajero MD [address] [place] [address] Social History Tobacco Use Types Packs/Day Years Used Date Smoking Tobacco: Never PHQ-2 Answer Date Recorded PHQ-2 Score 4 06/28/2019 Comments No Sex and Gender Information Value Date Recorded Sex Assigned at Not on file Legal Sex 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 PREVENTATIVE MAINTENANCE TECHNICIAN Gender Identity Not on file Sexual Orientation Not on file documented as of this encounter Miscellaneous Notes * Telephone Encounter - Kady Yang - 10/12/2019 1:30 PM CST Spoke with mom, advised our office would get back with her PETRA regarding a pediatric psychiatrist.C/B PRN ----- Message from Johnna Tinajero MD sent at 10/11/2019 5:40 PM PREVENTATIVE MAINTENANCE TECHNICIAN ----- Will you please let mom know that I did see the GI note from her last visit but have not talked with GI personally, and that I really am not sure where to go with her medication. I really thinks she needs to have her medication managed by a pediatric psychiatrist. I am going to call [place] [facility] on my day off tomorrow for advice and to see about a referral. ----- Message ----- From: Deidre Saavedra Sent: 10/11/2019 4:18 PM PREVENTATIVE MAINTENANCE TECHNICIAN To: Johnna Tinajero MD Mom called, wanting to know if you were able to speak with GI yet. You can reply to triage. Thanks ENTATIVE MAINTENANCE TECHNICIAN ENTATIVE MAINTENANCE TECHNICIAN documented in this encounter Plan of Treatment Not on file documented as of this encounter Visit Diagnoses Not on filedocumented in this encounter Care Teams Sales Representative Metals Relationship Specialty Start Date End Date Johnna Tinajero MD [address] [address] PCP - General Pediatrics 07/19/19 01/26/23 Johnna Tinajero MD [address] [address] 07/19/19 documented as of this encounter
--- OUTSIDE RECORDS SUMMARY | 2024-08-28 02:15 | XMS_ITS | Encounter Summary ---
Author Organization [facility] Facility Care Team Providers Care Hand Winder Name Role Phone Johnna Tinajero MD Primary Care Provider + Johnna Tinajero MD Unavailable [phone] Encounter Details Date Type Department Care Team (Latest Contact Info) Description 10/24/2019 Travel Social History Tobacco Use Types Packs/Day Years Used Date Smoking Tobacco: Never PHQ-2 Answer Date Recorded PHQ-2 Score 4 06/28/2019 Comments No Sex and Gender Information Value Date Recorded Sex Assigned at Not on file Legal Sex 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 HEALTHCARE FACILITY ADMINISTRATOR Gender Identity Not on file Sexual Orientation Not on file documented as of this encounter Plan of Treatment Not on file documented as of this encounter Visit Diagnoses Not on filedocumented in this encounter Care Teams Hand Winder Relationship Specialty Start Date End Date Johnna Tinajero MD [address] [address] PCP - General Pediatrics 07/19/19 01/26/23 Johnna Tinajero MD [address] [address] 07/19/19 documented as of this encounter
--- OUTSIDE RECORDS SUMMARY | 2024-08-28 02:15 | XMS_ITS | Encounter Summary ---
Author Organization [facility] Address [address] [place] [address] Phone Care Team Providers Care Credit Administration Manager Name Role Phone Johnna Tinajero MD Primary Care Provider + Johnna Tinajero MD Unavailable [phone] Reason for Visit * Reason Onset Date Comments Treatment Plan Update 09/09/2019 Encounter Details Date Type Department Care Team (Late st Contact Info) Description 09/09/2019 Telephone [facility] Pediatric [facility] [address] [place] [address] [place] [phone] Nehemiah Zhao MD [address] [place] [address] [address] [place] [address] Treatment Plan Update Social History Tobacco Use Types Packs/Day Years Used Date Smoking Tobacco: Never PHQ-2 Answer Date Recorded PHQ-2 Score 4 06/28/2019 Comments No Sex and Gender Information Value Date Recorded Sex Assigned at Not on file Legal Sex 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 SALES ENGINEER ENGINEERED PRODUCTS Gender Identity Not on file Sexual Orientation Not on file documented as of this encounter Miscellaneous Notes * Telephone Encounter - Nehemiah Zhao MD - 09/09/2019 6:01 PM CST Thanks Natividad. I spoke with mother at some length opal. Peg - I am also copying you on this - please see my Epic note from opal and let me know if any other thoughts or concerns. Also happy to discuss with you by phone. S ENGINEER [employer]ODU[employer] * Telephone Encounter - Leonor Mccarthy RN - 09/09/2019 3:45 PM SALES ENGINEER [employer]ODU[employer] Reviewed PMD note. Will let PAYTON know mom wants to speak to him directly. S ENGINEER [employer]INE[employer] PRODU[employer] * Telephone Encounter - Lili Hudson - 09/09/2019 3:27 PM CST MOM IS REQUESTING A CALL BACK FROM DR ZHAO TO DISCUSS TREATMENT PLAN. S ENGINEER ENGINEERED PRODUCTS documented in this encounter Plan of Treatment Not on file documented as of this encounter Visit Diagnoses Not on filedocumented in this encounter Care Teams Credit Administration Manager Relationship Specialty Start Date End Date Johnna Tinajero MD [address] [address] PCP - General Pediatrics 07/19/19 01/26/23 Johnna Tinajero MD [address] [address] 07/19/19 documented as of this encounter
--- OUTSIDE RECORDS SUMMARY | 2024-08-28 02:15 | XMS_ITS | Encounter Summary ---
Author Organization [facility] Address [address] [place] [address] Phone Care Team Providers Care Sales Management Intern Name Role Phone Johnna Tinajero MD Primary Care Provider + Johnna Tinajero MD Unavailable [phone] Reason for Visit * Reason Onset Date Comments Update on Patient 10/06/2019 Encounter Details Date Type Department Care Team (Late st Contact Info) Description 10/06/2019 Telephone [facility] [address] [facility] [address] [place] [address] Johnna Tinajero MD [address] [place] [address] Update on Patient Social History Tobacco Use Types Packs/Day Years Used Date Smoking Tobacco: Never PHQ-2 Answer Date Recorded PHQ-2 Score 4 06/28/2019 Comments No Sex and Gender Information Value Date Recorded Sex Assigned at Not on file Legal Sex 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 TIN CONTAINER STRAIGHTENER Gender Identity Not on file Sexual Orientation Not on file documented as of this encounter Miscellaneous Notes * Telephone Encounter - Basilia Dillard RN - 10/06/2019 3:42 PM TIN CONTAINER STRAIGHTENER PC from mom, update on Nina. They saw GI and are continuing to hold on the Lexapro until GI speakswith Dr. Tinajero. Mom also calling to review options for making sure she does not get too dehydrated with ongoing vomiting. Advised mom to have frequent small sips of fluids frequently. She should have UOP at least every 6 hours. Mom wanted to know parameters for needing to return to ED with excessive vomiting. Advised that if she has cyclical vomiting and is unable to stop, or if she has lethargy r/t to dehydration mom should have her seen. Mom verbalized understanding, will monitor closely and CB as needed for Nina's ongoing symptoms. CONTAINER STRAIGHTENER documented in this encounter Plan of Treatment Not on file documented as of this encounter Visit Diagnoses Not on filedocumented in this encounter Care Teams Sales Management Intern Relationship Specialty Start Date End Date Johnna Tinajero MD [address] [address] PCP - General Pediatrics 07/19/19 01/26/23 Johnna Tinajero MD [address] [address] 07/19/19 documented as of this encounter
--- OUTSIDE RECORDS SUMMARY | 2024-08-28 02:15 | XMS_ITS | Encounter Summary ---
Author Organization [facility] Address [address] [place] [address] [address] [place] [address] Phone Care Team Providers Care Cup Trimming Machine Operator Name Role Phone Johnna Tinajero MD Primary Care Provider + Johnna Tinajero MD Unavailable [phone] Encounter Details Date Type Department Care Team (Late st Contact Info) Description 08/26/2019 Telephone [facility] [facility] [address] [place] [address] Johnna Tinajero MD [address] [place] [id number] Social History Tobacco Use Types Packs/Day Years Used Date Smoking Tobacco: Never PHQ-2 Answer Date Recorded PHQ-2 Score 4 06/28/2019 Comments No Sex and Gender Information Value Date Recorded Sex Assigned at Not on file Legal Sex 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 REAL ESTATE VALUER Gender Identity Not on file Sexual Orientation Not on file documented as of this encounter Ordered Prescriptions Prescription Sig Dispense Quantity Refills Last Filled Start Date End Date escitalopram (LEXAPRO) 20 mg tablet Take 1 tablet (20 mg total) by mouth daily 30 tablet 08/26/2019 09/02/2019 documented in this encounter Miscellaneous Notes * Telephone Encounter - Madyson Roberts - 08/26/2019 11:20 AM CST Mom called to give progress report regarding tolerance of Lexapro 10 mg. She is completley weaned off of Celexa as well. On day 7 of Lexapro 10 mg daily and tolerating well. Denied SI/self-harm/HI. Denied SE. Lexapro 20 mg daily sent to pharm. ESTATE VALUER documented in this encounter Plan of Treatment Not on file documented as of this encounter Visit Diagnoses Not on filedocumented in this encounter Discontinued Medications Medication Sig Discontinue Reason Start Date End Da te escitalopram (Lexapro) 10 mg tablet Take 1 10 mg tablet daily for 7 days after finishing last day of Celexa. Dose adjustment 08/16/2019 08/26/2019 documented as of this encounter Care Teams Cup Trimming Machine Operator Relationship Specialty Start Date End Date Johnna Tinajero MD [address] [address] PCP - General Pediatrics 07/19/19 01/26/23 Johnna Tinajero MD [address] [address] 07/19/19 documented as of this encounter
--- OUTSIDE RECORDS SUMMARY | 2024-08-28 02:15 | XMS_ITS | Encounter Summary ---
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 Meds * Agents No agents on file. * Blood No blood administrations on file. Lines, Drains, and Airways No LDAs on file. 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 Anesthesia Evaluation Nina Coyne is a 19 y.o. female Procedure(s): PEDIATRIC - UPPER ENDOSCOPY Pre-Op Diagnosis Codes: * Abdominal pain, unspecified abdominal location [R10.9] * Nausea [R11.0] HISTORY HPI Nina Coyne is a 19 y.o. female with a history of migraines, asthma, and abdominal pain who presents today for upper endoscopy. Past Medical History Neurological + Headaches Respiratory + Asthma/RAD Pertinent negatives: sleep apnea (TORY) PAT Summary and Plans Additional comments: Last GA in 2014. Patient Active Problem List Diagnosis ??? Migraine [...] a child Reaction: NAUSEA;, As a child Taking? Last Dose Start Date End Date Provider albuterol (PROVENTIL,VENTOLIN) 1.25 mg/3 mL nebulizer solution Not Taking -- -- Historical Provider, albuterol HFA (PROVENTIL HFA,VENTOLIN HFA,PROAIR HFA) 90 mcg/actuation inhaler Not Taking -- -- Historical Provider, escitalopram (LEXAPRO) 20 mg tablet 09/02/19 10/02/19 Johnna Tinajero MD Take 1 tablet (20 mg total) by mouth daily fluticasone furoate-vilanterol (Breo Ellipta) 100-25 mcg/dose diskus inhaler 09/02/19 -- Johnna Tinajero MD Inhale 1 puff daily fluticasone propionate (FLONASE) 50 mcg/actuation nasal spray Not Taking 10/05/17 -- Historical Provider, norgestimate-ethinyl estradiol (ORTHO TRI-CYCLEN LO) 0.18/0.215/0.25 mg-25 mcg per tablet 08/17/19 -- Historical Provider, omeprazole (PriLOSEC) 20 mg capsule 08/18/19 -- Nehemiah Zhao MD Take 1 capsule (20 mg total) by mouth 2 (two) times a day ondansetron ODT (ZOFRAN-ODT) 4 mg disintegrating tablet 09/05/19 -- Johnna Tinajero MD Take 1 tablet (4 mg total) by mouth every 6 (six) hours as needed for nausea or vomiting No current facility-administered medications for this encounter. Current Outpatient Medications: ??? albuterol (PROVENTIL,VENTOLIN) 1.25 mg/3 mL nebulizer solution ??? albuterol HFA (PROVENTIL HFA,VENTOLIN HFA,PROAIR HFA) 90 mcg/actuation inhaler ??? escitalopram (LEXAPRO) 20 mg tablet ??? fluticasone furoate-vilanterol (Breo Ellipta) 100-25 mcg/dose diskus inhaler ??? fluticasone propionate (FLONASE) 50 mcg/actuation nasal spray ??? norgestimate-ethinyl estradiol (ORTHO TRI-CYCLEN LO) 0.18/0.215/0.25 mg-25 mcg per tablet ??? omeprazole (PriLOSEC) 20 mg capsule ??? ondansetron ODT (ZOFRAN-ODT) 4 mg disintegrating tablet Social History Tobacco Use Smoking Status Never Smoker Substance and Sexual Activity Alcohol Use Not on file Substance and Sexual Activity Drug Use Not on file Family History Adopted: Yes Family history unknown: Yes There were no vitals filed for this visit. PT: No results found for requested labs [...] for requested labs within last 720 hours. 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
--- OUTSIDE RECORDS SUMMARY | 2024-08-28 02:15 | XMS_ITS | Encounter Summary ---
Author Organization [facility] Address [address] [place] [address] [address] [place] [address] Phone Care Team Providers Care Weld Engineer Name Role Phone Johnna Tinajero MD Primary Care Provider + Johnna Tinajero MD Unavailable [phone] Encounter Details Date Type Department Care Team (Late st Contact Info) Description 08/26/2019 Telephone [facility] [facility] [address] [place] [address] Johnna Tinajero MD [address] [place] [address] Social History Tobacco Use Types Packs/Day Years Used Date Smoking Tobacco: Never PHQ-2 Answer Date Recorded PHQ-2 Score 4 06/28/2019 Comments No Sex and Gender Information Value Date Recorded Sex Assigned at Not on file 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 When she is nauseous, it isusually after eating. Mom will CB if continues next week, sooner if worse. Mom was also informed - Negative EKG NESS SERVICES ADMINISTRATOR * Telephone Encounter - Madyson Roberts - 08/26/2019 4:31 PM CST ----- Message from Madyson Roberts sent at 08/26/2019 1:32 PM BUSINESS SERVICES ADMINISTRATOR ----- LM to Cb. She said she was tolerating well but did not ask if still nauseous. ----- Message ----- From: Johnna Tinajero MD Sent: 08/26/2019 12:16 PM BUSINESS SERVICES ADMINISTRATOR [facility]: [facility] Gear Coding Machine Operator Kenyon Steinberg, did her nausea resolve? That was the reason for changing the medication. NESS SERVICES ADMINISTRATOR documented in this encounter Plan of Treatment Not on file documented as of this encounter Visit Diagnoses Not on filedocumented in this encounter Care Teams Weld Engineer Relationship Specialty Start Date End Date Johnna Tinajero MD [address] [address] PCP - General Pediatrics 07/19/19 01/26/23 Johnna Tinajero MD [address] [address] 07/19/19 documented as of this encounter
--- OUTSIDE RECORDS SUMMARY | 2024-08-28 02:16 | XMS_ITS | Encounter Summary ---
Author Organization [facility] Address [address] [place] [address] Phone Care Team Providers Care Bakery Machine Mechanic Name Role Phone Johnna Tinajero MD Primary Care Provider + Johnna Tinajero MD Unavailable [phone] Encounter Details Date Type Department Care Team (Late st Contact Info) Description 08/26/2019 Telephone [facility] [address] [place] [address] [place] [address] Arminda Salazar, RN Social History Tobacco Use Types Packs/Day Years Used Date Smoking Tobacco: Never PHQ-2 Answer Date Recorded PHQ-2 Score 4 06/28/2019 Comments No Sex and Gender Information Value Date Recorded Sex Assigned at Not on file Legal Sex 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 ENVIRONMENTAL SERVICES ASSISTANT Gender Identity Not on file Sexual Orientation Not on file documented as of this encounter Miscellaneous Notes * Telephone Encounter - Arminda Salazar RN - 08/26/2019 4:30 PM ENVIRONMENTAL SERVICES ASSISTANT Called and left a message for mom that PAYTON would like her to see the PCP in follow up and to call us back after that appointment with an update. RONMENTAL SERVICES ASSISTANT * Telephone Encounter - Nehemiah Zhao MD - 08/26/2019 11:19 AM ENVIRONMENTAL SERVICES ASSISTANT Thanks - does she have f/u scheduled with Dr. Tinajero, the PMD? If not, she should and we should get update on status again after that followup. RONMENTAL SERVICES ASSISTANT * Telephone Encounter - Arminda Salazar RN - 08/26/2019 10:52 AM ENVIRONMENTAL SERVICES ASSISTANT Called mom for an update She stated that she seems to be either tolerating the nausea or she may be feeling a slight bit better. She is still nauseated , more after she eats , she does not vomit but is very nauseated. She remains very fatigued as well. Seems to feel worse in the evening. Is able to eat little amounts of food, is staying hydrated. We dicussed the blood work. We will Update PAYTON. Mom was appreciative of the call. RONMENTAL SERVICES ASSISTANT * Telephone Encounter - Arminda Salazar RN - 08/26/2019 10:50 AM ENVIRONMENTAL SERVICES ASSISTANT ----- Message from Nehemiah Zhao MD sent at 08/25/2019 9:44 AM ENVIRONMENTAL SERVICES ASSISTANT ----- Repeat CBC from 08/22 looks good Please review that with mother and get update on her status. RONMENTAL SERVICES ASSISTANT documented in this encounter Plan of Treatment Not on file documented as of this encounter Visit Diagnoses Not on filedocumented in this encounter Care Teams Bakery Machine Mechanic Relationship Specialty Start Date End Date Johnna Tinajero MD [address] [id number] PCP - General Pediatrics 07/19/19 01/26/23 Johnna Tinajero MD [address] [id number] 07/19/19 documented as of this encounter
--- OUTSIDE RECORDS SUMMARY | 2024-08-28 02:16 | XMS_ITS | Encounter Summary ---
Author Organization [facility] Facility Care Team Providers Care Exhibit Specialist Name Role Phone Unavailable Primary Care Provider Unavailabl e Encounter Details Date Type Department Care Team (Late st Contact Info) Description 12/31/2014 5:33 PM CDT - 01/02/2015 1:12 PM CDT Hospital Encounter [facility] Anguiano, Maggie Nagy MD [address] [place] [address] Other and unspecified ovarian cyst; Asthma; Personal history of allergy to penicillin Social History Tobacco Use Types Packs/Day Years Used Date Smoking Tobacco: Never Assessed Comments Unknown Sex and Gender Information Value Date Recorded Sex Assigned at Not on file Legal Sex 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 MEAT 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 Gender Identity Not on file Sexual Orientation Not on file documented as of this encounter Last Filed Vital Signs Vital Sign Reading Time Taken Comments Blood Pressure 119/74 01/02/2015 7:33 AM CDT Pulse 68 01/02/2015 7:33 AM CDT Temperature - - Respiratory Rate - - Oxygen Saturation 100% 01/02/2015 7:33 AM CDT Inhaled Oxygen Concentration - - Weight 89.9 kg (198 lb 3.1 oz) 01/01/20 15 10:31 PM CDT Height 157 cm (5' 1.81 ) 12/31/2014 10: 31 PM CDT Body Mass Index 36.47 12/31/2014 10:31 PM CDT Body Mass Index Percentile 99.72% 12/31 10:31 PM CDT Growth Chart: [facility] (Girls, 2- 20 Years) documented in this encounter Plan of Treatment Not on file documented as of this encounter Procedures Procedure Name Priority Date/Time Associated Diagnosis Comments DISCHARGE LABORATORY CUMULATIVE REPORT 01/02/2015 US PELVIS COMPLETE Routine 01/01/2015 7: 29 AM CDT US ABDOMEN LIMITED Routine 01/01/2015 7: 29 AM CDT BLOOD CELL MORPHOLOGIC EXAM Routine 01/01/2015 6:55 AM CDT BLOOD CELL COUNT (CBC) Routine 5 6:55 AM CDT SERUM LIPASE Routine 12/31/2014 7:39 PM CDT PLASMA COMPREHENSIVE METABOLIC PANEL Routine 12/31/2014 7:39 PM CDT BLOOD WBC CELL MORPHOLOGIC EXAM, AUTO Routine 12/31/2014 7:39 PM CDT BLOOD CELL COUNT (CBC) Routine 5 7:39 PM CDT URINE MICROSCOPY Routine 12/31/2014 7:36 PM CDT URINE CHORIONIC GONADOTROPIN (HCG) Routine 12/31/2014 7:36 PM CDT URINALYSIS Routine 12/31/2014 7:36 PM CDT documented in this encounter Results * DISCHARGE LABORATORY CUMULATIVE REPORT (01/02/2015) Narrative 01/02/2015 Ordered by an unspecified provider. us Historical Provider LAB BLOOD ORDERABLES Neris l Result * US Abdomen Limited (01/01/2015 7:29 AM CDT) Anatomical Region Laterality Modality Abdomen N/A Ultrasound 01/01/2015 7:29 AM CDT Narrative 01/01/2015 9:42 AM CDT AGUILAR HOLDEN M.D. SIDNEY DAVALOS M.D. FINAL REPORT The radiology attending physician has personally reviewed this study, and has reviewed and/or edited this written report and agrees with it. ACC# ??Date Time ??Exam [id number] January 01, 2015 07:29:00 [id number] APPENDIX [id number] January 01, 2015 07:29:00 [id number] PELVIC SONO CMP EXAMINATION: ? Appendix and Pelvic Sonogram COMPARISON: ?? None HISTORY: ??14-year-old female with abdominal pain, concern for appendicitis or ovarian cyst. FINDINGS: Graded compression ultrasound of the right lower quadrant failed to demonstrate a distended tubular blind-ending structure. ??There is no free fluid in the cul-de-sac. The uterus is peripubertal in configuration/size. The uterus measures 6.2 x 1.8 x 2.2 cm. The endometrial stripe could not be measured. ??The left ovary measure 2.3 x 2.9 x 1.5 cm for a volume of 5.0 cc. ??The right ovary measure 3.4 x 5.7 x 4.4 cm for a volume of 52.9 cc. There is a large hemorrhagic cyst within the right ovary. ??Bilateral color and Doppler flow was obtained. IMPRESSION: ?? Hemorrhagic right ovarian cyst. Appendix not identified, though no evidence of free fluid or right lower quadrant inflammatory change. Requested By: KATELIN DOSHI MD, PHD Dictated By: ?? SIDNEY DAVALOS M.D. ??on December ??2014 ??9:04A This document has been electronically signed by: AGUILAR HOLDEN M.D. on December ??2014 ??9:42A Procedure Note Provider, MD Jesus - 01/01/2017 AGUILAR HOLDEN M.D. SIDNEY DAVALOS M.D. FINAL REPORT The radiology attending physician has personally reviewed this study, and has reviewed and/or edited this written report and agrees with it. ACC# Date Time Exam [id number] January 01, 2015 07:29:00 [id number] APPENDIX [id number] January 01, 2015 07:29:00 [id number] PELVIC SONO CMP EXAMINATION: Appendix and Pelvic Sonogram COMPARISON: None HISTORY: 14-year-old female with abdominal pain, concern for appendicitis or ovarian cyst. FINDINGS: Graded compression ultrasound of the right lower quadrant failed to demonstrate a distended tubular blind-ending structure. There is no free fluid in the cul-de-sac. The uterus is peripubertal in configuration/size. The uterus measures 6.2 x 1.8 x 2.2 cm. The endometrial stripe could not be measured. The left ovary measure 2.3 x 2.9 x 1.5 cm for a volume of 5.0 cc. The right ovary measure 3.4 x 5.7 x 4.4 cm for a volume of 52.9 cc. There is a large hemorrhagic cyst within the right ovary. Bilateral color and Doppler flow was obtained. IMPRESSION: Hemorrhagic right ovarian cyst. Appendix not identified, though no evidence of free fluid or right lower quadrant inflammatory change. Requested By: KATELIN DOSHI MD, PHD Dictated By: SIDNEY DAVALOS M.D. on Jan 01 2015 9:04A This document has been electronically signed by: AGUILAR HOLDEN M.D. on Jan 01 2015 9:42A us Historical Provider IMG US PROCEDURES Final R esult * US Pelvis Complete (01/01/2015 7:29 AM CDT) Anatomical Region Laterality Modality Pelvis N/A Ultrasound 01/01/2015 7:29 AM CDT Narrative 01/01/2015 9:42 AM CDT AGUILAR HOLDEN M.D. SIDNEY DAVALOS M.D. FINAL REPORT The radiology attending physician has personally reviewed this study, and has reviewed and/or edited this written report and agrees with it. ACC# ??Date Time ??Exam [id number] January 01, 2015 07:29:00 [id number] APPENDIX [id number] January 01, 2015 07:29:00 [id number] PELVIC SONO CMP EXAMINATION: ? Appendix and Pelvic Sonogram COMPARISON: ?? None HISTORY: ??14-year-old female with abdominal pain, concern for appendicitis or ovarian cyst. FINDINGS: Graded compression ultrasound of the right lower quadrant failed to demonstrate a distended tubular blind-ending structure. ??There is no free fluid in the cul-de-sac. The uterus is peripubertal in configuration/size. The uterus measures 6.2 x 1.8 x 2.2 cm. The endometrial stripe could not be measured. ??The left ovary measure 2.3 x 2.9 x 1.5 cm for a volume of 5.0 cc. ??The right ovary measure 3.4 x 5.7 x 4.4 cm for a volume of 52.9 cc. There is a large hemorrhagic cyst within the right ovary. ??Bilateral color and Doppler flow was obtained. IMPRESSION: ?? Hemorrhagic right ovarian cyst. Appendix not identified, though no evidence of free fluid or right lower quadrant inflammatory change. Requested By: KATELIN DOSHI MD, PHD Dictated By: ?? SIDNEY DAVALOS M.D. ??on December ??2014 ??9:04A This document has been electronically signed by: AGUILAR HOLDEN M.D. on December ??2014 ??9:42A Procedure Note Provider, MD Jesus - 01/01/2017 AGUILAR HOLDEN M.D. SDINEY DAVALOS M.D. FINAL REPORT The radiology attending physician has personally reviewed this study, and has reviewed and/or edited this written report and agrees with it. ACC# Date Time Exam [id number] January 01, 2015 07:29:00 [id number] APPENDIX [id number] January 01, 2015 07:29:00 [id number] PELVIC SONO CMP EXAMINATION: Appendix and Pelvic Sonogram COMPARISON: None HISTORY: 14-year-old female with abdominal pain, concern for appendicitis or ovarian cyst. FINDINGS: Graded compression ultrasound of the right lower quadrant failed to demonstrate a distended tubular blind-ending structure. There is no free fluid in the cul-de-sac. The uterus is peripubertal in configuration/size. The uterus measures 6.2 x 1.8 x 2.2 cm. The endometrial stripe could not be measured. The left ovary measure 2.3 x 2.9 x 1.5 cm for a volume of 5.0 cc. The right ovary measure 3.4 x 5.7 x 4.4 cm for a volume of 52.9 cc. There is a large hemorrhagic cyst within the right ovary. Bilateral color and Doppler flow was obtained. IMPRESSION: Hemorrhagic right ovarian cyst. Appendix not identified, though no evidence of free fluid or right lower quadrant inflammatory change. Requested By: KATELIN DOSHI MD, PHD Dictated By: SIDNEY DAVALOS M.D. on Jan 01 2015 9:04A This document has been electronically signed by: AGUILAR HOLDEN M.D. on Jan 01 2015 9:42A Historical Provider IMG US PROCEDURES Final R esult * Blood cell count (CBC) (01/01/2015 6:55 AM CDT) WBC 9.0 3.8 - 9.8 K/cumm HISTORICAL RESULTS RBC 4.73 3.90 - 5.00 M/cumm HISTORICAL RESULTS Hgb 13.3 12.1 - 15.1 g/dl HISTORICAL RESULTS Hct 40.4 36.1 - 44.3 % HISTORICAL RESULTS MCV 85.4 80.0 - 97.6 fl HISTORICAL RESULTS MCH 28.1 26.7 - 33.7 pg HISTORICAL RESULTS MCHC 32.9 32.7 - 35.5 g/dl HISTORICAL RESULTS Rdw 14.4 11.8 - 14.6 % HISTORICAL RESULTS NRBC 0.0 #/100 WBC HISTORICAL RESULTS Platelets 234 140 - 440 K/cumm HISTORICAL RESULTS MPV 9.9 8.1 - 11.9 fl HISTORICAL RESULTS Blood specimen (specimen) 01/01/2015 6:55 AM CDT Historical Provider LAB BLOOD ORDERABLES Neris l Result HISTORICAL RESULTS * (ABNORMAL) Blood cell morphologic exam (01/01/2015 6:55 AM CDT) Neutrophils 56 33 - 70 % HISTORIC AL RESULTS Lymphocytes 32 21 - 55 % HISTORIC AL RESULTS Monos 8 3 - 13 % HISTORICAL RESULTS Eosinophils 3 2 - 12 % HISTORIC AL RESULTS Basophils 1 0 - 3 % HISTORICAL RESULTS WBC counted 100 # of cells HISTORI LETY RESULTS Platelet estimate Adequate Adequate HI STORICAL RESULTS Anisocytosis Trace None Seen HISTORI LETY RESULTS Poikilocytosis Trace(A) None Seen HISTO RICAL RESULTS Blood specimen (specimen) 01/01/2015 6:55 AM CDT Historical Provider MD LAB BLOOD ORDERABLES Neris l Result HISTORICAL RESULTS * Serum lipase (12/31/2014 7:39 PM CDT) Lip 27 5 - 50 Units/L HISTORICAL RESULTS Serum 12/31/2014 7:39 PM CDT Historical Provider MD LAB BLOOD ORDERABLES Neris l Result HISTORICAL RESULTS * (ABNORMAL) Plasma comprehensive metabolic panel (12/31/2014 7:39 PM CDT) Sodium 136 135 - 145 mmol/L HISTORICAL RESULTS K, pl 4.3 3.3 - 4.9 mmol/L HISTORICAL RESULTS Comment:{Hemolyzed; result m ay be falsely elevated.} Chloride 106 100 - 114 mmol/L HISTORICAL RESULTS CO2 21 20 - 30 mmol/L HISTORICAL RESULTS A. gap 9 mmol/L HISTORICAL RESULTS Glucose 75 70 - 199 mg/dl HISTORICAL RESULTS Comment: Interpretive Data Random glucose greater than or equal to 200 mg/dL with relevant clinical symptoms is diagnostic for diabetes when repeated on a subsequent day. Reference: Diabetes Care 2005;28:S37-S42. Current interpretive data was last revised on 2013. BUN 8(L) 9 - 18 mg/dl HISTORICAL RESULTS Creatinine 0.6 0.2 - 0.8 mg/dl HISTORICAL RESULTS Calcium 9.2 8.6 - 10.3 mg/dl HISTORICAL RESULTS Protein, pl 7.4 6.5 - 8.5 g/dl HISTORICAL RESULTS Alb 3.8 3.2 - 5.0 g/dl HISTORICAL RESULTS Bilirubin 0.3 0.0 - 1.2 mg/dl HISTORICAL RESULTS Alk phos 171 130 - 550 Units/L HISTORICAL RESULTS AST 42 10 - 50 Units/L HISTORICAL RESULTS Comment:{Hemolyzed; result m ay be falsely elevated.} ALT 40 10 - 40 Units/L HISTORICAL RESULTS Plasma 12/31/2014 7:39 PM CDT Historical Provider LAB BLOOD ORDERABLES Neris l Result HISTORICAL RESULTS * (ABNORMAL) Blood cell count (CBC) (12/31/2014 7:39 PM CDT) WBC 9.3 3.8 - 9.8 K/cumm HISTORICAL RESULTS RBC 4.83 3.90 - 5.00 M/cumm HISTORICAL RESULTS Hgb 13.6 12.1 - 15.1 g/dl HISTORICAL RESULTS Hct 41.8 36.1 - 44.3 % HISTORICAL RESULTS MCV 86.5 80.0 - 97.6 fl HISTORICAL RESULTS MCH 28.2 26.7 - 33.7 pg HISTORICAL RESULTS MCHC 32.5(L) 32.7 - 35.5 g/dl HISTORICAL RESULTS Rdw 14.5 11.8 - 14.6 % HISTORICAL RESULTS Platelets 340 140 - 440 K/cumm HISTORICAL RESULTS MPV 9.4 8.1 - 11.9 fl HISTORICAL RESULTS NRBC 0.0 #/100 WBC HISTORICAL RESULTS Blood specimen (specimen) 12/31/2014 7:39 PM CDT Historical Provider LAB BLOOD ORDERABLES Neris l Result Performing Organization Address [facility] de Phone Number HISTORICAL RESULTS * Blood WBC cell morphologic exam, auto (12/31/2014 7:39 PM CDT) Neutrophils, abs 4.8 1.5 - 9.4 K/cumm HISTORICAL RESULTS Lymphocytes, abs 3.2 1.0 - 7.2 K/cumm HISTORICAL RESULTS Monocytes, absolute 0.9 0.1 - 1.7 K/cumm HISTORICAL RESULTS Eosinophils, abs 0.3 0.1 - 1.6 K/cumm HISTORICAL RESULTS Basophils, abs 0.1 0.0 - 0.3 K/cumm HISTORICAL RESULTS Immature granulocyte, abs 0.0 0.0 - 0.2 K/cumm HISTORICAL RESULTS Neutrophils 51.6 % HISTORIC AL RESULTS Lymphocytes 34.3 % HISTORIC AL RESULTS Monos 9.9 % HISTORICAL RESULTS Eosinophils 3.2 % HISTORIC AL RESULTS Basophils 0.7 % HISTORICAL RESULTS Immature granulocytes 0.3 % HISTORICAL RESULTS Blood specimen (specimen) 12/31/2014 7:39 PM CDT Result [facility] Historical Provider LAB BLOOD ORDERABLES Neris rick Result Performing Organization Address [facility] de Phone Number HISTORICAL RESULTS * Urine chorionic gonadotropin (HCG) (12/31/2014 7:36 PM CDT) HCG, ur Negative Negative HISTORICAL RESULTS Urine 12/31/2014 7:36 PM CDT Result [facility] Historical Provider LAB BLOOD ORDERABLES Neris rick Result Performing Organization Address [facility] de Phone Number HISTORICAL RESULTS * (ABNORMAL) Urinalysis (12/31/2014 7:36 PM CDT) Color, ur Yellow HISTORICAL RESULTS Clarity, ur Clear Clear HISTORIC AL RESULTS Specific gravity, ur 1.025(H) 1.008 - 1.022 HISTORICAL RESULTS pH, ur 6.0 HISTORICAL RESULTS Protein, ur Negative Negative HISTORIC AL RESULTS Glucose, ur Negative Negative HISTORIC AL RESULTS Ketones, ur Negative Negative HISTORIC AL RESULTS Bilirubin, ur Negative Negative HISTOR ICAL RESULTS U Blood Negative Negative HISTORICAL RESULTS Urobilinogen, quant, ur 1.0 Ana Units/dl HISTORICAL RESULTS Nitrites, ur Negative Negative HISTORI LETY RESULTS Leukocyte esterase, ur Negative Negative HISTORICAL RESULTS Urine 12/31/2014 7:36 PM CDT Result [facility] Historical Provider LAB BLOOD ORDERABLES Neris rick Result Performing Organization Address [facility] de Phone Number HISTORICAL RESULTS * Urine microscopy (12/31/2014 7:36 PM CDT) RBC, ur None Seen None Seen HISTORICAL RESULTS WBC, ur None Seen None Seen HISTORICAL RESULTS Epithelial cells, renal, ur None Seen None Seen HISTORICAL RESULTS Epithelial cells, squamous, ur < 5/HPF HISTORICAL RESULTS Urine 12/31/2014 7:36 PM CDT Result [facility] Historical Provider LAB BLOOD ORDERABLES Neris rick Result HISTORICAL RESULTS documented in this encounter Visit Diagnoses Diagnosis Other and unspecified ovarian cyst Asthma Unspecified asthma Personal history of allergy to penicillin documented in this encounter
--- OUTSIDE RECORDS SUMMARY | 2024-08-28 02:16 | XMS_ITS | Encounter Summary ---
Author Organization [facility] Address [address] [place] [address] [address] [place] [address] Phone Care Team Providers Care Front Desk Auxiliary Name Role Phone Johnna Tinajero MD Primary Care Provider + Encounter Details Date Type Department Care Team (Late st Contact Info) Description 10/20/2018 Telephone [facility] [address] [facility] [address] [place] [address] Johnna Tinajero MD [facility] [facility] [address] [place] [address] Social History Tobacco Use Types Packs/Day Years Used Date Smoking Tobacco: Never Comments Unknown Sex and Gender Information Value Date Recorded Sex Assigned at Not on file Legal Sex 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 POOER * Telephone Encounter - Aileen Garcia - 10/20/2018 1:45 PM CST ----- Message from Johnna Tinajero MD sent at 10/19/2018 3:05 PM SHAMPOOER ----- Please remind family to take for her Vitamin D level POOER documented in this encounter Plan of Treatment Not on file documented as of this encounter Visit Diagnoses Not on filedocumented in this encounter Care Teams Front Desk Auxiliary Relationship Specialty Start Date End Date Johnna Tinajero MD [address] [address] PCP - General 12/17/16 07/18/19 documented as of this encounter
--- OUTSIDE RECORDS SUMMARY | 2024-08-28 02:16 | XMS_ITS | Encounter Summary ---
Author Organization [facility] Facility Care Team Providers Care Base Brander Name Role Phone Unavailable Primary Care Provider Unavailabl e Encounter Details Date Type Department Care Team (Late st Contact Info) Description 04/08/2016 1:17 PM CDT - 04/08/2016 11:59 PM CDT Hospital Encounter [facility] Shola Mcmullen MD [address] [place] [address] Hearing loss Social History Tobacco Use Types Packs/Day Years Used Date Smoking Tobacco: Never Comments Unknown Sex and Gender Information Value Date Recorded Sex Assigned at Not on file Legal Sex 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 Historical Provider AUDIOLOGY SERVICES ORDERA BLES Final Result documented in this encounter Visit Diagnoses Diagnosis Hearing loss Unspecified hearing loss documented in this encounter
--- OUTSIDE RECORDS SUMMARY | 2024-08-28 02:16 | XMS_ITS | Encounter Summary ---
Author Organization [facility] Address [address] [place] [address] [address] [place] [address] Phone Care Team Providers Care Medical Device Name Role Phone Johnna Tinajero MD Primary Care Provider + Johnna Tinajero MD Unavailable [phone] Reason for Referral * (Routine) - Closed Specialty Diagnoses / Procedures Referred By Controseanne t Referred To Contact Diagnoses Encounter for routine child health examination with abnormal findings Fatigue, unspecified type Nausea Obesity without serious comorbidity with body mass index (BMI) greater than 99th percentile for age in pediatric patient, unspecified obesity type Procedures ECG 12 lead Johnna Tinajero MD [address] [place] [address] [address] [place] [address] Phone: tel: fax: [facility] (All Locations) Referral ID Status Reason Start Date Expiration Date Visits Re quested Visits Authorized [id number] Closed 08/16/2019 02/24/2021 1 1 SEWER MACHINE Encounter Details Date Type Department Care Team (Late st Contact Info) Description 08/16/2019 Telephone [facility] [address] [facility] [address] [place] [address] Johnna Tinajero MD [address] [place], [place] [address] [address] [place] [address] Social History Tobacco Use Types Packs/Day Years Used Date Smoking Tobacco: Never PHQ-2 Answer Date Recorded PHQ-2 Score 4 06/28/2019 Comments No Sex and Gender Information Value Date Recorded Sex Assigned at Not on file Legal Sex 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 SACK SEWER MACHINE Gender Identity Not on file Sexual Orientation Not on file documented as of this encounter Ordered Prescriptions Prescription Sig Dispense Quantity Refills Last Filled Start Date End Date escitalopram (Lexapro) 10 mg tablet Take 1 10 mg tablet daily for 7 days after finishing last day of Celexa. 7 tablet 08/16/2019 9 citalopram (CeleXA) 10 mg tablet Take 1 tablet (10 mg total) by mouth daily for 7 days 7 tablet 08/16/2019 0 documented in this encounter Miscellaneous Notes * Telephone Encounter - Madyson Roberts - 08/16/2019 3:42 PM CST Referral to cardiology d/c'd. Just needs EKG. Order sent SEWER MACHINE * Telephone Encounter - Madyson Roberts - 08/16/2019 1:09 PM CST S/W Mom and informed Dr. Tinajero advising screening EKG. Also discussed medication management. PerDr. Tinajero - Decrease Celexa to 10 mg q day for 7 days then change to Lexapro 10 mg q day for 7 days. Then increase Lexapro to 20 mg q day. Mom to call before Rx increase to 20 mg Lexapro to give progress report. Mom also stated she will take her in for EKG this week. SEWER MACHINE * Telephone Encounter - Johnna Tinajero MD - 08/16/2019 1:08 PM SACK SEWER MACHINE PC to mom; discussed visit with Dr. Zhao, who called me yesterday about visit with him. We both agreed cause could be the Celexa. I spoke with child psychiatrist Eli Perez today ([place]- [place]) who recommended weaning the Celexa in a week (half dose) and then starting Lexapro 10 mg daily for a week, could increase to 20 mg. I spoke with [facility] pharmacist about possible QT prolongation on both Lexapro and Zofran, which mom says she continues to take once in the morning and once in the afternoon. REc: EKG. To get EKG and change to Lexapro, then see how she does. Also increase water intake and repeat CBC this weekend. If symptoms not improving on Lexapro or hgb decreasing, needs to be scoped. SEWER MACHINE documented in this encounter Plan of Treatment Not on file documented as of this encounter Results * ECG 12 lead (08/25/2019 12:27 PM SACK SEWER MACHINE) Ventricular Rate EKG/Min 69 BPM [facility] Atrial Rate 69 BPM [facility] WV-Interval (MSEC) 138 ms [facility] QRS-Interval (MSEC) 78 ms [facility] QT-Interval (MSEC) 380 ms [facility] QTc 412 ms [facility] P [place] 30 degrees [facility] R [place] 9 degrees [facility] T [place] 7 degrees [facility] Diagnosis Normal sinus rhythm with sinus arrhythmia with short [place] When compared with ECG of 23-JAN-2017 10:14, patient is now in sinus rhythm Otherwise normal ECG Confirmed by MD NISHA, FELICE ([id number]) on 08/26/2019 6:11:28 AM [facility] 08/25/2019 12:2 4 PM SACK SEWER MACHINE 08/26/2019 6:11 AM SACK SEWER MACHINE us Johnna Tinajero MD ECG ORDERABLES Final Re sult [facility] documented in this encounter Visit Diagnoses Diagnosis Encounter for routine child health examination with abnormal findings- Primary Fatigue, unspecified type Nausea Nausea alone Obesity without serious comorbidity with body mass index (BMI) greater than 99th percentile for age in pediatric patient, unspecified obesity type documented in this encounter Discontinued Medications Medication Sig Discontinue Reason Start Date End Da te citalopram (CeleXA) 20 mg tablet Take 1 tablet (20 mg total) by mouth daily Dose adjustment 07/13/2019 08/16/2019 documented as of this encounter Care Teams Medical Device Relationship Specialty Start Date End Date Johnna Tinajero MD [address] [address] PCP - General Pediatrics 07/19/19 01/26/23 Johnna Tinajero MD [address] [address] 07/19/19 documented as of this encounter
--- OUTSIDE RECORDS SUMMARY | 2024-08-28 02:16 | XMS_ITS | Encounter Summary ---
Author Organization [facility] Address [address] [place] [address] Care Team Providers Care Produce Service Team Member Name Role Phone Johnna Tinajero MD Primary Care Provider + Encounter Details Date Type Department Care Team (Latest Contact Info) Description 12/30/2016 10:42 AM CDT - 12/30/2016 11:59 PM CDT Hospital Encounter [facility] [phone] Nehemiah Crowe MD [address] [facility] [phone] [place] [address] Discharge Disposition: Discharge to home or self care Social History Tobacco Use Types Packs/Day Years Used Date Smoking Tobacco: Never Comments Unknown Sex and Gender Information Value Date Recorded Sex Assigned at Not on file Legal Sex 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 12/19/2016 07/19/2019 fluticasone-vilan terol (BREO ELLIPTA) 100-25 mcg/dose diskus inhaler Inhale 1 puff daily. 09/04/2016 09/02/2019 documented as of this encounter Discharge Disposition Disposition Code Departure Means Destination Discharge to home or self care documented in this encounter Plan of Treatment Not on file documented as of this encounter Procedures Procedure Name Priority Date/Time Associated Diagnosis Comments DIFFERENTIAL AUTO Routine 12/30/2016 10: 56 AM CDT VITAMIN D 25 HYDROXY Routine 12/30/2016 10:56 AM CDT CBC WITHOUT DIFFERENTIAL Routine 12/30/2016 10:56 AM CDT TSH Routine 12/30/2016 10:56 AM CDT T4, FREE Routine 12/30/2016 10:56 AM CDT documented in this encounter Results * (ABNORMAL) Vitamin D 25 hydroxy (12/30/2016 10:56 AM CDT) Vitamin D 25-OH 12(L) 20 - 100 ng/mL [facility] Comment: Interpretive Data AGES: -18 years Sufficient: 20-100 ng/mL Borderline: 10-20 ng/mL Deficient: ??<10 ng/mL Reference intervals pertain to males and females from through age 18 years of age. Intervals reflect consensus clinical decision limits derived from various reports including the 2011 [place] [employer] Report on calcium and vitamin D. Vitamin D concentrations may vary widely depending on ethnic background, geographic location, and the time of the year the sample was obtained. References: 1. Christopher CL, Arianne DAMICO. Prevention of Rickets and Vitamin D Deficiency in Infants, Children, and Adolescents. Pediatrics 2008;122:8761-6844. 2. Rosalio AC, Yamile CL, Michael AL, Majano HB, eds. Dietary Reference Intakes for Calcium and Vitamin D. [place] [employer]; National Academies Press:2011 3. Natasha JEMIMA, Mack J, and Fabio DJ. Circulating Intact Parathyroid Hormone is Suppressed at 25-hydroxyvitamin D Concentrations greater than 25 nmol/L. J Pediatr Endocrinol Metab 2014;doi:10.1515/sxmt-3962-0098. Current interpretive data was last revised on 2013 Blood specimen (specimen) 12/30/2016 10:56 AM CDT 12/30/2016 12:01 PM CDT Nehemiah Crowe MD LAB BLOOD ORDERABLES Edited Result - Final Performing Organization Address [facility] [place] [address] * TSH (12/30/2016 10:56 AM CDT) Pathologist [facility] Thyroid Stimulating Hormone 1.35 0.30 - 4.20 mcIUnit/mL [facility] Comment: Interpretive Data: TSH concentration may range up to 100 mcIUnit/ml due to surge of TSH production on the first day of life and then fall gradually to adult levels by one month of age. Current [facility] data was last revised as of 01/12/2006. Blood specimen (specimen) 12/30/2016 10:56 AM CDT 12/30/2016 12:01 PM CDT Nehemiah Crowe MD LAB BLOOD ORDERABLES Final Result Performing Organization Address [facility] [place] [address] * T4, free (12/30/2016 10:56 AM CDT) [facility] Free T4 1.03 0.90 - 1.70 ng/dL [facility] Comment: Interpretive data: Free T4 concentrations rise acutely to as high as 5 ng/dl on the first day of life following TSH surge and then decrease gradually to adult levels by one month of age. Current [facility] data was last revised on 06. Blood specimen (specimen) 12/30/2016 10:56 AM CDT 12/30/2016 12:01 PM CDT Nehemiah Crowe MD LAB BLOOD ORDERABLES Final Result Performing Organization Address [facility] [place] [place] [address] * Differential, auto (12/30/2016 10:56 AM CDT) Neutrophil abs 4.98 1.50 - 9.40 K/c[facility] Lymphocyte abs 2.79 1.00 - 7.20 K/cumm [facility] Monocyte abs 0.66 0.10 - 1.70 K/cumm [facility] Eosinophil abs 0.26 0.10 - 1.60 K/cumm [facility] Basophil abs 0.05 0.00 - 0.30 K/cumm [facility] Imm gran abs 0.02 0.00 - 0.20 K/cumm [facility] Neutrophil pct 56.9 % [facility] Lymphocyte pct 31.8 % [facility] Monocyte pct 7.5 % [facility] Eosinophil pct 3.0 % [facility] Basophil pct 0.6 % [facility] Imm gran pct 0.2 % [facility] Blood specimen (specimen) 12/30/2016 10:56 AM CDT 12/30/2016 11:01 AM CDT us Nehemiah Crowe MD LAB BLOOD ORDERABLES Final Result [facility] [place] [address] * CBC without differential (12/30/2016 10:56 AM CDT) WBC 8.76 3.80 - 9.90 K/cumm [facility] RBC 4.62 3.90 - 5.20 M/cumm [facility] Hgb 13.3 11.9 - 15.5 g/dL [facility] Hct 40.8 35.6 - 45.5 % [facility] MCV 88.3 81.3 - 96.4 fL [facility] MCH 28.8 27.1 - 33.3 pg [facility] MCHC 32.6 32.3 - 35.7 g/dL [facility] RDW CV 13.5 11.1 - 14.9 % [facility] RDW SD 42.9 35.7 - 48.1 fL [facility] Plt 333 150 - 400 K/cumm [facility] MPV 9.8 9.1 - 12.3 fL [facility] NRBC abs 0.00 0.00 - 0.01 K/cumm [facility] NRBC 0.0 % [facility] Blood specimen (specimen) 12/30/2016 10:56 AM CDT 12/30/2016 11:01 AM CDT us Nehemiah Crowe MD LAB BLOOD ORDERABLES Final Result Performing Organization Address City/State/[facility] Co de Phone Number [facility] Department [place] [address] documented in this encounter Visit Diagnoses Not on filedocumented in this encounter Care Teams Produce Service Team Member Relationship Specialty Start Date End Date Johnna Tinajero MD [address] [address] PCP - General 12/17/16 07/18/19 documented as of this encounter
--- OUTSIDE RECORDS SUMMARY | 2024-08-28 02:16 | XMS_ITS | Encounter Summary ---
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
--- OUTSIDE RECORDS SUMMARY | 2024-08-28 02:16 | XMS_ITS | Encounter Summary ---
Author Organization [facility] Address [address] [place] [phone] Phone Care Team Providers Care Telephone Supervisor Name Role Phone Johnna Tinajero MD Primary Care Provider + Johnna Tinajero MD Unavailable [phone] Reason for Visit * Reason Comments Abdominal Pain Encounter Details Date Type Department Care Team (Late st Contact Info) Description 08/11/2019 11:30 AM DIRECTOR OF SOFTWARE DEVELOPMENT Office Visit [facility] [address] [facility] [address] [place] [address] Johnna Tinajero MD [address] [place] [id number] Nausea (Primary Dx); Fatigue, unspecified type Social History Tobacco Use Types Packs/Day Years Used Date Smoking Tobacco: Never PHQ-2 Answer Date Recorded PHQ-2 Score 4 06/28/2019 Comments No Sex and Gender Information Value Date Recorded Sex Assigned at Not on file Legal Sex 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 DIRECTOR OF SOFTWARE DEVELOPMENT Gender Identity Not on file Sexual Orientation Not on file documented as of this encounter Last Filed Vital Signs Vital Sign Reading Time Taken Comments Blood Pressure 122/88 08/11/2019 11:41 AM DIRECTOR OF SOFTWARE DEVELOPMENT Pulse - - Temperature 36.7 ??C (98 ??F) 08/11/2019 11: 41 AM DIRECTOR OF SOFTWARE DEVELOPMENT Respiratory Rate - - Oxygen Saturation - - Inhaled Oxygen Concentration - - Weight 102.6 kg (226 lb 3.2 oz) 019 11:41 AM DIRECTOR OF SOFTWARE DEVELOPMENT Height - - Body Mass Index - - documented in this encounter Ordered Prescriptions Prescription Sig Dispense Quantity Refills Last Filled Start Date End Date ondansetron ODT (ZOFRAN-ODT) 4 mg disintegrating tabletIndications:Na usea Take 1 tablet (4 mg total) by mouth every 6 (six) hours as needed for nausea or vomiting 20 tablet 08/11/2019 0 documented in this encounter Progress Notes * Theresa Fong MD - 08/11/2019 11:30 AM CST 08/11/2019 HISTORY OF PRESENT ILLNESS (with pertinent ROS) Nina Coyne is a 19 y.o. female who presents with mother Chief Complaint Patient presents with ??? Abdominal Pain HPI: Started on Prilosec with a few days of relief but otherwise continues to be nauseated. No abdominalpain today. Some headaches and dizziness but no spinning around sensations. Not correlated to anytime of day. Maybe worse with eating, not eating much at all. Trying to go to school but missed yesterday, half day the day before. School has been very understanding and working with her to allow catching up so she is not particularly stressed. Mom doesn't think this is stress or depression related because she doesn't want to eat even her favorite foods and generally she is a stress eater. Since last visit, has had waxing/waning periods of increased fatigue. Continues to have poor appetite. Feeling worse after she eats. Normal urine output and stools. No new symptoms Mother feels like she is doing better since increase in Celexa. 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 Review of Symptoms: Review of systems per HPI and otherwise all other systems are negative PHYSICAL EXAM Vitals: 08/11/19 1141 BP: 122/88 Temp: 36.7 ??C (98 ??F) Weight: 102.6 kg (226 lb 3.2 oz) Constitutional: Pt appears well-developed and well-nourished, active, NAD and non-toxic appearance.Has lost weight, looks hydrated, affect is sort of flat but does smile genuinely during the visit HEENT: Eyes: Scleral injection: no; Eye Discharge: no Ears: Right TM normal Left TM normal Nose: . no abnormalities Mouth/Throat: Mucous membranes are moist. Pharynx/Tonsills: no abnormalities Neck: Neck supple without rigidity. No lymphadenopathy Cardiovascular: Normal rate and regular rhythm, without murmur Pulmonary/Chest: normal work of breathing and good air movement Abdominal: Bowel sounds are active, no distension, tender to palpation over epigastric area, no rebound and no guarding. No hepatosplenomegaly Neurological: alert. Skin: Skin is warm. Capillary refill brisk. No rash noted. ASSESSMENT/PLAN: 1. Nausea - Despite abdominal pain resolving, continues to have persistent nausea and tenderness to palpationover epigastric area. Discussed repeating labs and referral to GI for further evaluation (possible scope if seeing acute gastritis/ulcer as etiology) - Ambulatory referral to Pediatric Gastroenterology; Future. I spoke with Marni Dial today andher office will schedule ov in the next week. Take prilosc q od for a week then stop, as it is not helping. Continue with Zofran prn if helpful - CBC with auto differential; Future - Comprehensive metabolic panel; Future - CRP (acute phase); Future - Jose Roberto Singh virus VCA, IgG; Future - Jose Roberto-Singh virus VCA, IgM; Future - DHEA; Future - LH; Future - Follicle stimulating hormone; Future - Estradiol; Future - 17-Hydroxyprogesterone; Future - Testosterone, Total and Free, Serum; Future - CBC with auto differential - Comprehensive metabolic panel - CRP (acute phase) - Jose Roberto Singh virus VCA, IgG - Jose Roberto-Singh virus VCA, IgM - DHEA - LH - Follicle stimulating hormone - Estradiol - 17-Hydroxyprogesterone - Testosterone, Total and Free, Serum - Amylase - Lipase - Refilled zofran prescription for 20 tabs 2. Fatigue, unspecified type - See Nausea for plan Parent/patient instructed to call with concerns, if not improving in 7 days or new symptoms/problems develop. Theresa Fong MD CTOR OF SOFTWARE DEVELOPMENT CTOR OF SOFTWARE DEVELOPMENT documented in this encounter Plan of Treatment Scheduled Orders Name Type Priority Associated Diagnoses Orde r Schedule Lipase Lab Routine Nausea Expected: 08/11/2019, Expires: 0 Amylase Lab Routine Nausea Expected: 08/11/2019, Expires: 0 documented as of this encounter Procedures Procedure Name Priority Date/Time Associated Diagnosis Comments CBC WITH AUTO DIFFERENTIAL Routine 08/11 12:57 PM DIRECTOR OF SOFTWARE DEVELOPMENT Nausea 17 HYDROXYPROGESTERONE Routine 9 12:57 PM DIRECTOR OF SOFTWARE DEVELOPMENT Nausea JOSE ROBERTO-SINGH VIRUS VCA, IGM Routine 08/11/2019 12:57 PM DIRECTOR OF SOFTWARE DEVELOPMENT Nausea JOSE ROBERTO SINGH VIRUS VCA, IGG Routine 08/11/2019 12:57 PM DIRECTOR OF SOFTWARE DEVELOPMENT Nausea ESTRADIOL Routine 08/11/2019 12:57 PM DIRECTOR OF SOFTWARE DEVELOPMENT Nausea DHEA Routine 08/11/2019 12:57 PM DIRECTOR OF SOFTWARE DEVELOPMENT Nausea TESTOSTERONE, TOTAL AND FREE, SERUM Routine 08/11/2019 12:57 PM DIRECTOR OF SOFTWARE DEVELOPMENT Nausea CRP (ACUTE PHASE) Routine 08/11/2019 12: 57 PM DIRECTOR OF SOFTWARE DEVELOPMENT Nausea LIPASE Routine 08/11/2019 12:57 PM DIRECTOR OF SOFTWARE DEVELOPMENT LUTEINIZING HORMONE (LH) Routine 019 12:57 PM DIRECTOR OF SOFTWARE DEVELOPMENT Nausea FOLLICLE STIMULATING HORMONE Routine 08/11/2019 12:57 PM DIRECTOR OF SOFTWARE DEVELOPMENT Nausea AMYLASE Routine 08/11/2019 12:57 PM DIRECTOR OF SOFTWARE DEVELOPMENT COMPREHENSIVE METABOLIC PANEL Routine 08/11/2019 12:57 PM DIRECTOR OF SOFTWARE DEVELOPMENT Nausea documented in this encounter Results * Lipase (08/11/2019 12:57 PM DIRECTOR OF SOFTWARE DEVELOPMENT) LIPASE 18 7 - 60 U/L [facility] [place] 08/11/2019 12:5 7 PM DIRECTOR OF SOFTWARE DEVELOPMENT 08/11/2019 12:58 PM DIRECTOR OF SOFTWARE DEVELOPMENT Narrative [facility] - 08/15/2019 8:17 PM DIRECTOR OF SOFTWARE DEVELOPMENT FASTING:NO FASTING: NO Resulting Agency Comment Performing Organization Information: ?Site ID: [place] ?Name: [facility] ?Address: [facility] [place] [address] ?Director: Viktor Landry D.O., MPH Theresa Fong MD LAB BLOOD ORDERABL ES Final Result Performing Organization Address [facility] Co de Phone Number [facility] [place] * Amylase (08/11/2019 12:57 PM DIRECTOR OF SOFTWARE DEVELOPMENT) Amylase 36 21 - 101 U/L [facility] [place] 08/11/2019 12:5 7 PM DIRECTOR OF SOFTWARE DEVELOPMENT 08/11/2019 12:58 PM DIRECTOR OF SOFTWARE DEVELOPMENT Narrative [facility] - 08/15/2019 8:17 PM DIRECTOR OF SOFTWARE DEVELOPMENT FASTING:NO FASTING: NO Resulting Agency Comment Performing Organization Information: ?Site ID: [place] ?Name: [facility] ?Address: [facility] [place] [address] ?Director: Viktor Landry D.O., MPH Theresa Fong MD LAB BLOOD ORDERABL ES Final Result Performing Organization Address [facility] de Phone Number [facility] [place] * Testosterone, Total and Free, Serum (08/11/2019 12:57 PM DIRECTOR OF SOFTWARE DEVELOPMENT) Testosterone 21 < OR = 40 ng/dL [facility] Comment: Pediatric Reference Ranges by Pubertal Stage for Testosterone, Total, LC/MS/MS (ng/dL): Jorge Stage ?Male ? Female Stage I ?<=5 ? <=8 Stage II ? <=167 ?<=24 Stage III ? 21-719 ?<=28 Stage IV ?25-912 ?<=31 Stage V ?110-975 ?<=33 For additional information, please refer to http://education.[employer]/faq/Total TestosteroneLCMSMS ?? (This link is being provided for informational/e ducational purposes only.) This test was developed and its analytical performance characteristics have been determined by [facility]. It has not been cleared or approved by the FDA. This assay has been validated pursuant to the CLIA regulations and is used for clinical purposes. Testosterone, free 3.7 0.5 - 3.9 pg/mL [facility] - [place] Comment: This test was developed and its analytical performance characteristics have been determined by [facility]. It has not been cleared or approved by the FDA. This assay has been validated pursuant to the CLIA regulations and is used for clinical purposes. Sex hormone binding globulin 20 12 - 150 nmol/L [facility] - [place] Comment: ?Reference Range ?<3 Years ? Not established ?3-9 Year ? 32-158 ?10-13 Years ?24-120 ?14-17 Years ?12-150 ?Jorge stages (7-17 years) ?Jorge I ? 47-166 ?Jorge II ?25-129 ?Jorge III ?? 25-129 ?Jorge IV ?30-86 ?Jorge V ? 15-130 ? Blood specimen (specimen) 08/11/2019 12:57 PM DIRECTOR OF SOFTWARE DEVELOPMENT 08/11/2019 12:58 PM DIRECTOR OF SOFTWARE DEVELOPMENT Narrative [facility] - 08/15/2019 8:17 PM DIRECTOR OF SOFTWARE DEVELOPMENT FASTING:NO FASTING: NO Resulting Agency Comment Performing Organization Information: ?Site ID: [id number] ?Name: [facility] ?Address: [address] [place] [address] ?Director: Austin Moreno M.D., Ph.D us Theresa Fong MD LAB BLOOD ORDERABL ES Final Result [facility] [place], [place] * (ABNORMAL) 17-Hydroxyprogesterone (08/11/2019 12:57 PM DIRECTOR OF SOFTWARE DEVELOPMENT) 17-hydroxyproges terone 19(L) 26 - 325 ng/dL [facility] [place] Comment: Pediatric Female Reference Ranges for 17-Hydroxyprogesterone: ??Cord Blood ?1,000-3,000 ng/dL ??Premature Infants ? (31-35 weeks): < or = 405 ng/dL ??Term Infants ? (12 hrs): ?<460 ng/dL Values decline gradually to prepubertal levels ? <30 days: No Range Established ??1-11 months: ??< or = 147 ng/dL ?1 year: ?? < or = 139 ng/dL ?2 years: ??< or = 134 ng/dL ?3 years: ??< or = 131 ng/dL ?4 years: ??< or = 131 ng/dL ?5 years: ??< or = 133 ng/dL ?6 years: ??< or = 137 ng/dL ?7 years: ??< or = 145 ng/dL ?8 years: ??< or = 154 ng/dL ?9 years: ??< or = 166 ng/dL ? 10 years: ??< or = 180 ng/dL ? 11 years: ??< or = 196 ng/dL ? 12 years: ??< or = 213 ng/dL ? 13 years: ??< or = 233 ng/dL ? 14 years: ??< or = 254 ng/dL ? 15 years: ??19-276 ng/dL ? 16 years: ??23-300 ng/dL ? 17 years: ??26-325 ng/dL ??Jorge Stages ? II-III: ?18-220 ng/dL ? IV-V: ?36-200 ng/dL Includes data from J Clin Endocrinol Metab. 1991;73:674-686; J Clin Endocrinol Metab.1989; 69:1859-6190; and J Clin Endocrinol Metab. 1994; 78:266-270. Pediatr Res 1988;23:525-529. MedLinePlus (accessed 02/13/14). This test was developed and its analytical performance characteristics have been determined by [facility]. It has not been cleared or approved by FDA. This assay has been validated pursuant to the CLIA regulations and is used for clinical purposes. Blood specimen (specimen) 08/11/2019 12:57 PM DIRECTOR OF SOFTWARE DEVELOPMENT 08/11/2019 12:58 PM DIRECTOR OF SOFTWARE DEVELOPMENT Narrative [facility] - 08/15/2019 8:17 PM DIRECTOR OF SOFTWARE DEVELOPMENT FASTING:NO FASTING: NO Resulting Agency Comment Performing Organization Information: ?Site ID: E[place] ?Name: [facility], ?Address: [address] [place] [phone] ?Director: Marisel Dailey MD,PhD,TALIB us Theresa Fong MD LAB BLOOD ORDERABL ES Final Result [facility] [place] * Estradiol (08/11/2019 12:57 PM DIRECTOR OF SOFTWARE DEVELOPMENT) [facility] Signature Estradiol 23 pg/mL [facility] [place] Comment: ?Reference Range ?Follicular Phase: ?19-144 ?Mid-Cycle: ? 64-357 ?Luteal Phase: ?56-214 ?Postmenopausal: ?< or = 31 ? Reference range established on post-pubertal patient population. No pre-pubertal reference range established using this assay. For any patients for whom low Estradiol levels are anticipated (e.g. males, pre-pubertal children and hypogonadal/post-menopausal females), the [facility] Estradiol, Ultrasensitive, LCMSMS assay is recommended (order code 99637). ?? Please note: patients being treated with the drug fulvestrant (Faslodex(R)) have demonstrated significant interference in immunoassay methods for estradiol measurement. The cross reactivity could lead to falsely elevated estradiol test results leading to an inappropriate clinical assessment of estrogen status. [facility] order code [id number], Ultrasensitive LC/MS/MS demonstrates negligible cross reactivity with fulvestrant. Blood specimen (specimen) 08/11/2019 12:57 PM DIRECTOR OF SOFTWARE DEVELOPMENT 08/11/2019 12:58 PM DIRECTOR OF SOFTWARE DEVELOPMENT Narrative [facility] - 08/15/2019 8:17 PM DIRECTOR OF SOFTWARE DEVELOPMENT FASTING:NO FASTING: NO Resulting Agency Comment Performing Organization Information: ?Site ID: [place] ?Name: [facility] ?Address: [id number] [place] [address] [place] [address] ?Director: Viktor Landry D.O. MPH us Theresa Fong MD LAB BLOOD ORDERABL ES Final Result [facility] [facility] [place] * Follicle stimulating hormone (08/11/2019 12:57 PM DIRECTOR OF SOFTWARE DEVELOPMENT) FSH 7.7 mIU/mL [facility] Comment: ?Reference Range ? Female ? Follicular Phase ? 2.5-10.2 ? Mid-cycle Peak ? 3.1-17.7 ? Luteal Phase ? 1.5- 9.1 ? Postmenopausal ? 23.0-116.3 ?Children (<18 Years old) ? FSH reference ranges established on post- ? pubertal patient population. Reference ? range not established for pre-pubertal ? patients using this assay. For pre- ? pubertal patients, the [facility] ? [facility] FSH, Pediatrics Assay ? is recommended (69248). Blood specimen (specimen) 08/11/2019 12:57 PM DIRECTOR OF SOFTWARE DEVELOPMENT 08/11/2019 12:58 PM DIRECTOR OF SOFTWARE DEVELOPMENT Narrative [facility] - 08/15/2019 8:17 PM DIRECTOR OF SOFTWARE DEVELOPMENT FASTING:NO FASTING: NO Resulting Agency Comment Performing Organization Information: ?Site ID: [place] ?Name: [facility] ?Address: [address] [place] [address] ?Director: Viktor Landry D.O. MPH us Theresa Fong MD LAB BLOOD ORDERABL ES Final Result [facility] [place] * LH (08/11/2019 12:57 PM DIRECTOR OF SOFTWARE DEVELOPMENT) LH 5.2 mIU/mL [facility] [place] Comment: ? Reference Range Female ??Follicular Phase ??1.9-12.5 ??Mid-Cycle Peak ?8.7-76.3 ??Luteal Phase ?0.5-16.9 ??Postmenopausal ?10.0-54.7 Children (<18 years) ??LH reference ranges established on post- ??pubertal patient population. Reference ??range not established for pre-pubertal ??patients using this assay. For pre- ??pubertal patients, the [facility] ??[facility] LH, Pediatrics assay ??is recommended (order code [id number]). Blood specimen (specimen) 08/11/2019 12:57 PM DIRECTOR OF SOFTWARE DEVELOPMENT 08/11/2019 12:58 PM DIRECTOR OF SOFTWARE DEVELOPMENT Narrative [facility] - 08/15/2019 8:17 PM DIRECTOR OF SOFTWARE DEVELOPMENT FASTING:NO FASTING: NO Resulting Agency Comment Performing Organization Information: ?Site ID: [place] ?Name: [facility] ?Address: [address] [facility] [place] [phone] ?Director: Viktor Landry D.O., MPH Theresa Fong MD LAB BLOOD ORDERABL ES Final Result [facility] [place] * DHEA (08/11/2019 12:57 PM DIRECTOR OF SOFTWARE DEVELOPMENT) DHEA 233 113 - 1,360 ng/dL [facility] [place] Comment: Pediatric Reference Ranges ?<30 days: No Range Established 1-11 months: < or = 327 ng/dL ?1 year: ?? < or = 269 ng/dL ?2 years: ??< or = 244 ng/dL ?3 years: ??< or = 253 ng/dL ?4 years: ??< or = 297 ng/dL ?5 years: ??< or = 376 ng/dL ?6 years: ??< or = 487 ng/dL ?7 years: ??< or = 616 ng/dL ?8 years: ??34-744 ng/dL ?9 years: ??45-854 ng/dL ?? 10 years: ??56-950 ng/dL ?? 11 years: ??67-1041 ng/dL ?? 12 years: ??78-1120 ng/dL ?? 13 years: ??86-1176 ng/dL ?? 14 years: ??90-1207 ng/dL ?? 15 years: ??95-1241 ng/dL ?? 16 years: ??103-1294 ng/dL ?? 17 years: ??113-1360 ng/dL This test was developed and its analytical performance characteristics have been determined by [facility]. It has not been cleared or approved by FDA. This assay has been validated pursuant to the CLIA regulations and is used for clinical purposes. Blood specimen (specimen) 08/11/2019 12:57 PM DIRECTOR OF SOFTWARE DEVELOPMENT 08/11/2019 12:58 PM DIRECTOR OF SOFTWARE DEVELOPMENT Narrative [facility] - 08/15/2019 8:17 PM DIRECTOR OF SOFTWARE DEVELOPMENT FASTING:NO FASTING: NO Resulting Agency Comment Performing Organization Information: ?Site ID: EZ ?Name: [facility], ?Address: [address] [place] [phone] ?Director: Marisel Dailey MD,PhD,TALIB Theresa Fong MD LAB BLOOD ORDERABL ES Final Result [facility] [place], [place] * Jose Roberto-Singh virus VCA, IgM (08/11/2019 12:57 PM DIRECTOR OF SOFTWARE DEVELOPMENT) EBV VCA IgM <36.00 U/mL [facility] [place] Comment: ?U/mL ?Interpretation ?---- ?<36.00 ?Negative ?36.00-43.99 ? Equivocal ?>43.99 ?Positive Blood specimen (specimen) 08/11/2019 12:57 PM DIRECTOR OF SOFTWARE DEVELOPMENT 08/11/2019 12:58 PM DIRECTOR OF SOFTWARE DEVELOPMENT Narrative [facility] - 08/15/2019 8:17 PM DIRECTOR OF SOFTWARE DEVELOPMENT FASTING:NO FASTING: NO Resulting Agency Comment Performing Organization Information: ?Site ID: [place] ?Name: [facility] ?Address: [address] [place] [phone] ?Director: Viktor Landry D.O., MPH Theresa Fong MD LAB BLOOD ORDERABL ES Final Result Performing Organization Address [facility]/ZIP Co de Phone Number [facility] - [place] * Jose Roberto Singh virus VCA, IgG (08/11/2019 12:57 PM DIRECTOR OF SOFTWARE DEVELOPMENT) [facility] SOURCE WHOLE BLOOD [facility] EBV DNA NOT DETECTED [facility] Comment: REFERENCE RANGE: NOT DETECTED This test was developed and its analytical performance characteristics have been determined by [facility]. It has not been cleared or approved by FDA. This assay has been validated pursuant to the CLIA regulations and is used for clinical purposes. Blood specimen (specimen) 08/11/2019 12:57 PM DIRECTOR OF SOFTWARE DEVELOPMENT 08/11/2019 12:58 PM DIRECTOR OF SOFTWARE DEVELOPMENT Narrative [facility] - 08/15/2019 8:17 PM DIRECTOR OF SOFTWARE DEVELOPMENT FASTING:NO FASTING: NO Resulting Agency Comment Performing Organization Information: ?Site ID: [place]C ?Name: [facility] ?Address: [address] [place] [phone] ?Director: Georges Saini MD Theresa Fong MD LAB BLOOD ORDERABL ES Final Result Performing Organization Address City/[facility]/ZIP Co de Phone Number [facility] - [place], [place] * CRP (acute phase) (08/11/2019 12:57 PM DIRECTOR OF SOFTWARE DEVELOPMENT) C-RP 2.8 <8.0 mg/L [facility] [place] Blood specimen (specimen) 08/11/2019 12:57 PM DIRECTOR OF SOFTWARE DEVELOPMENT 08/11/2019 12:58 PM DIRECTOR OF SOFTWARE DEVELOPMENT Narrative [facility] - 08/15/2019 8:17 PM DIRECTOR OF SOFTWARE DEVELOPMENT FASTING:NO FASTING: NO Resulting Agency Comment Performing Organization Information: ?Site ID: [place] ?Name: [facility] ?Address: [address] [place] [phone] ?Director: Viktor Landry D.O., MPH us Theresa Fong MD LAB BLOOD ORDERABL ES Final Result [facility] [place] * Comprehensive metabolic panel (08/11/2019 12:57 PM DIRECTOR OF SOFTWARE DEVELOPMENT) Pathologist [facility] Glucose 99 65 - 139 mg/dL [facility] [place] Comment: ? Non-fasting reference interval BUN 8 7 - 20 mg/dL [facility] [place] Creatinine 0.81 0.50 - 1.00 mg/dL [facility] [place] Comment: Patient is <18 years old. Unable to calculate eGFR. BUN/creat ratio NOT APPLICABLE 6 - 22 (calc) [facility] [place] Sodium 140 135 - 146 mmol/L [facility] [place] Potassium, pl 4.1 3.8 - 5.1 mmol/L [facility] [place] Chloride 106 98 - 110 mmol/L [facility] [place] CO2 27 20 - 32 mmol/L [facility] [place] Calcium 9.6 8.9 - 10.4 mg/dL [facility] [place] Protein, sr 7.1 6.3 - 8.2 g/dL [facility] [place] Albumin 4.1 3.6 - 5.1 g/dL [facility] [place] GLOBULIN 3.0 2.0 - 3.8 g/dL (calc) [facility] [place] Alb/glob ratio 1.4 1.0 - 2.5 (calc) [facility] [place] Bilirubin, total 0.6 0.2 - 1.1 mg/dL [facility] [place] Alk phos 69 47 - 176 U/L [facility] [place] AST 18 12 - 32 U/L [facility] [place] ALT (SGPT) 22 5 - 32 U/L [facility] [place] Blood specimen (specimen) 08/11/2019 12:57 PM DIRECTOR OF SOFTWARE DEVELOPMENT 08/11/2019 12:58 PM DIRECTOR OF SOFTWARE DEVELOPMENT Narrative [facility] - 08/15/2019 8:17 PM DIRECTOR OF SOFTWARE DEVELOPMENT FASTING:NO FASTING: NO Resulting Agency Comment Performing Organization Information: ?Site ID: [place] ?Name: [facility] ?Address: [address] [place] [phone] ?Director: Viktor Landry D.O., MPH us Theresa Fong MD LAB BLOOD ORDERABL ES Final Result [facility] [place] * CBC with auto differential (08/11/2019 12:57 PM DIRECTOR OF SOFTWARE DEVELOPMENT) WBC 5.6 4.5 - 13.0 Thousand/u L [facility] [place] RBC, POC 4.68 3.80 - 5.10 Million/uL [facility] [place] Hgb 13.4 11.5 - 15.3 g/dL [facility] [place] Hct 40.5 34.0 - 46.0 % [facility] [place] MCV 86.5 78.0 - 98.0 fL [facility] [place] MCH 28.6 25.0 - 35.0 pg [facility] [place] MCHC 33.1 31.0 - 36.0 g/dL [facility] [place] Rdw 13.3 11.0 - 15.0 % [facility] [place] Platelets 395 140 - 400 Thousand/u L [facility] [place] MPV 10.4 7.5 - 12.5 fL [facility] [place] Neutrophils, abs 2,548 1,800 - 8,000 cells/uL [facility] [place] Lymphocytes, abs 2,094 1,200 - 5,200 cells/uL [facility] [place] Monocyte abs 599 200 - 900 cells/uL [facility] [place] Eosinophils, abs 291 15 - 500 cells/uL [facility] [place] Basophils, abs 67 0 - 200 cells/uL [facility] [place] Neutrophils 45.5 % [facility] [place] Lymphocyte pct 37.4 % [facility] [place] Monocytes 10.7 % [facility] [place] Eosinophils 5.2 % [facility] [place] Basophils 1.2 % [facility] [place] Blood specimen (specimen) 08/11/2019 12:57 PM DIRECTOR OF SOFTWARE DEVELOPMENT 08/11/2019 12:58 PM DIRECTOR OF SOFTWARE DEVELOPMENT Narrative [facility] - 08/15/2019 8:17 PM DIRECTOR OF SOFTWARE DEVELOPMENT FASTING:NO FASTING: NO Resulting Agency Comment Performing Organization Information: ?Site ID: [place] ?Name: [facility] ?Address: [address] [place] [phone] ?Director: Viktor Landry D.O., MPH us Theresa Fong MD LAB BLOOD ORDERABL ES Final Result [facility] [place] documented in this encounter Visit Diagnoses Diagnosis Nausea- Primary Nausea alone Fatigue, unspecified type documented in this encounter Discontinued Medications Medication Sig Discontinue Reason Start Date End Da te ondansetron ODT (ZOFRAN-ODT) 4 mg disintegrating tabletIndications:Nausea Take 1 tablet (4 mg total) by mouth every 6 (six) hours as needed for nausea or vomiting Reorder 08/02/2019 08/11/2019 documented as of this encounter Care Teams Telephone Supervisor Relationship Specialty Start Date End Date Johnna Tinajero MD [address] [address] PCP - General Pediatrics 07/19/19 01/26/23 Johnna Tinajero MD [address] [address] 07/19/19 documented as of this encounter
--- OUTSIDE RECORDS SUMMARY | 2024-08-28 02:16 | XMS_ITS | Encounter Summary ---
Author Organization [facility] Facility Care Team Providers Care Life Support Technician Name Role Phone Unavailable Primary Care Provider Unavailabl e Encounter Details Date Type Department Care Team (Late st Contact Info) Description 12/06/2015 11:11 AM CDT - 12/06/2015 11:59 PM CDT [facility] [address] [place] [address] Other forms of scoliosis, thoracolumbar region Social History Tobacco Use Types Packs/Day Years Used Date Smoking Tobacco: Never Assessed Comments Unknown Sex and Gender Information Value Date Recorded Sex Assigned at Not on file 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 SHAHLA SCHWARZ M.D. FINAL REPORT The radiology attending physician has personally reviewed this study, and has reviewed and/or edited this written report and agrees with it. ACC# ??Date Time ??Exam [id number] Dec 06, 2015 11:39:00 [id number] TSPINE 2 VIEWS [id number] Dec 06, 2015 11:39:00 [id number] LSPINE 2 OR 3 VIEWS EXAMINATION: ? Thoracic spine 2 views Lumbar spine 2 HISTORY: ??Back pain FINDINGS: ?? No priors for comparison. Mild thoracolumbar dextroscoliosis is present with Gil angle of 21 degrees from superior endplate of T5 to inferior endplate of L2. Vertebral bodies are normal. Disk spaces are normal. Sacroiliac joints are normal. IMPRESSION: ?? Mild thoracolumbar dextroscoliosis Requested By: JOHNNA DE LA CRUZ M.D. Dictated By: ?? SHAHLA SCHWARZ M.D. ??on Nov?2015 11:42A This document has been electronically signed by: DRAGAN HICKS M.D. on Nov? 2015 12:30P Procedure Note Provider, MD Jesus - 01/01/2017 Josue TORRES M.D. FINAL REPORT The radiology attending physician has personally reviewed this study, and has reviewed and/or edited this written report and agrees with it. ACC# Date Time Exam [id number] Dec 06, 2015 11:39:00 [id number] TSPINE 2 VIEWS [id number] Dec 06, 2015 11:39:00 71658 LSPINE 2 OR 3 VIEWS EXAMINATION: Thoracic spine 2 views Lumbar spine 2 HISTORY: Back pain FINDINGS: No priors for comparison. Mild thoracolumbar dextroscoliosis is present with Gil angle of 21 degrees from superior endplate of T5 to inferior endplate of L2. Vertebral bodies are normal. Disk spaces are normal. Sacroiliac joints are normal. IMPRESSION: Mild thoracolumbar dextroscoliosis Requested By: JOHNNA DE LA CRUZ M.D. Dictated By: SHAHLA SCHWARZ M.D. on Dec 06 2015 11:42A This document has been electronically signed by: DRAGAN HICKS M.D. on Dec 06 2015 12:30P us Historical Provider MD [place] XR PROCEDURES Final R esult * XR Spine Lumbar 2 or 3 Views (12/06/2015 11:39 AM CDT) Anatomical Region Laterality Modality Spine N/A Radiographic Ria ging 12/06/2015 11:3 9 AM CDT Narrative 12/06/2015 12:30 PM CDT Josue TORRES M.D. FINAL REPORT The radiology attending physician has personally reviewed this study, and has reviewed and/or edited this written report and agrees with it. ACC# ??Date Time ??Exam [id number] Dec 06, 2015 11:39:00 [id number] TSPINE 2 VIEWS [id number] Dec 06, 2015 11:39:00 07186 LSPINE 2 OR 3 VIEWS EXAMINATION: ? Thoracic spine 2 views Lumbar spine 2 HISTORY: ??Back pain FINDINGS: ?? No priors for comparison. Mild thoracolumbar dextroscoliosis is present with Gil angle of 21 degrees from superior endplate of T5 to inferior endplate of L2. Vertebral bodies are normal. Disk spaces are normal. Sacroiliac joints are normal. IMPRESSION: ?? Mild thoracolumbar dextroscoliosis Requested By: JOHNNA DE LA CRUZ M.D. Dictated By: ?? SHAHLA SCHWARZ M.D. ??on Nov?2015 11:42A This document has been electronically signed by: DRAGAN HICKS M.D. on Nov 12:30P Procedure Note Provider, MD Jesus - 01/01/2017 DRAGAN HICKS M.D. SHAHLA SCHWARZ M.D. FINAL REPORT The radiology attending physician has personally reviewed this study, and has reviewed and/or edited this written report and agrees with it. ACC# Date Time Exam [id number] Dec 06, 2015 11:39:00 07487 TSPINE 2 VIEWS [id number] Dec 06, 2015 11:39:00 76035 LSPINE 2 OR 3 VIEWS EXAMINATION: Thoracic spine 2 views Lumbar spine 2 HISTORY: Back pain FINDINGS: No priors for comparison. Mild thoracolumbar dextroscoliosis is present with Gil angle of 21 degrees from superior endplate of T5 to inferior endplate of L2. Vertebral bodies are normal. Disk spaces are normal. Sacroiliac joints are normal. IMPRESSION: Mild thoracolumbar dextroscoliosis Requested By: JOHNNA DE LA CRUZ M.D. Dictated By: SHAHLA SCHWARZ M.D. on Dec 06 2015 11:42A This document has been electronically signed by: DRAGAN HICKS M.D. on Dec 06 2015 12:30P us Historical Provider MD [place] XR PROCEDURES Final R esult documented in this encounter Visit Diagnoses Diagnosis Other forms of scoliosis, thoracolumbar region documented in this encounter
--- OUTSIDE RECORDS SUMMARY | 2024-08-28 02:16 | XMS_ITS | Encounter Summary ---
Author Organization [facility] Address [address] [place] [address] Phone Care Team Providers Care Kaiako Kura Tuarua Name Role Phone Johnna Tinajero MD Primary Care Provider + Johnna Tinajero MD Unavailable [phone] Encounter Details Date Type Department Care Team (Late st Contact Info) Description 08/18/2019 Orders Only [facility] Pediatric Gastroenterology [address] [facility] [address] [place] [address] Nehemiah Zhao MD [address] [facility] [address] [place] [address] Nausea (Primary Dx); Right lower quadrant abdominal pain Social History Tobacco Use Types Packs/Day Years Used Date Smoking Tobacco: Never PHQ-2 Answer Date Recorded PHQ-2 Score 4 06/28/2019 Comments No Sex and Gender Information Value Date Recorded Sex Assigned at Not on file 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 Gender Identity Not on file Sexual Orientation Not on file documented as of this encounter Ordered Prescriptions Prescription Sig Dispense Quantity Refills Last Filled Start Date End Date omeprazole (PriLOSEC) 20 mg capsuleIndications :Treatment of Non-Bleeding Gastric Disorder Take 1 capsule (20 mg total) by mouth 2 (two) times a day 60 capsule 1 08/18/2019 0 documented in this encounter Plan of Treatment Not on file documented as of this encounter Procedures Procedure Name Priority Date/Time Associated Diagnosis Comments CBC WITH AUTO DIFFERENTIAL Routine 08/22/2019 9:46 AM STAMP MACHINE SERVICER Nausea Right lower quadrant abdominal pain documented in this encounter Results * CBC with auto differential (08/22/2019 9:46 AM STAMP MACHINE SERVICER) WBC 6.6 4.5 - 13.0 Thousand/u L [facility] [place] RBC, POC 4.42 3.80 - 5.10 Million/uL [facility] Hgb 12.7 11.5 - 15.3 g/dL [facility] [place] Hct 38.4 34.0 - 46.0 % [facility] [place] MCV 86.9 78.0 - 98.0 fL [facility] [place] MCH 28.7 25.0 - 35.0 pg [facility] [place] MCHC 33.1 31.0 - 36.0 g/dL [facility] [place] Rdw 13.3 11.0 - 15.0 % [facility] [place] Platelets 379 140 - 400 Thousand/u L [facility] [place] MPV 10.3 7.5 - 12.5 fL [facility] [place] Neutrophils, abs 3,472 1,800 - 8,000 cells/uL [facility] [place] Lymphocytes, abs 2,079 1,200 - 5,200 cells/uL [facility] [place] Monocyte abs 653 200 - 900 cells/uL [facility] [place] Eosinophils, abs 323 15 - 500 cells/uL [facility] [place] Basophils, abs 73 0 - 200 cells/uL [facility] [place] Neutrophils 52.6 % [facility] [place] Lymphocyte pct 31.5 % [facility] [place] Monocytes 9.9 % [facility] [place] Eosinophils 4.9 % [facility] [place] Basophils 1.1 % [facility] Blood specimen (specimen) 08/22/2019 9:46 AM STAMP MACHINE SERVICER 08/22/2019 9:47 AM STAMP MACHINE SERVICER Narrative [facility] - 08/23/2019 1:19 AM STAMP MACHINE SERVICER PT AND FATHER VARIFIED THIS IS THE CORRECT ORDER FASTING:YES FASTING: YES Resulting Agency Comment Performing Organization Information: ?Site ID: [id number] ?Name: [facility] ?Address: [address] [address] ?Director: Viktor Landry D.O., MPH us Nehemiah Zhao MD LAB BLOOD ORDERABLES Final R esult [facility] [place] documented in this encounter Visit Diagnoses Diagnosis Nausea- Primary Nausea alone Right lower quadrant abdominal pain documented in this encounter Discontinued Medications Medication Sig Discontinue Reason Start Date End Da te omeprazole (PriLOSEC) 20 mg capsuleIndications:Nause a Take 1 capsule (20 mg total) by mouth daily Reorder 08/02/2019 08/18/2019 documented as of this encounter Care Teams Kaiako Kura Tuarua Relationship Specialty Start Date End Date Johnna Tinajero MD [address] [address] PCP - General Pediatrics 07/19/19 01/26/23 Johnna Tinajero MD [address] [address] 07/19/19 documented as of this encounter
--- OUTSIDE RECORDS SUMMARY | 2024-08-28 02:16 | XMS_ITS | Encounter Summary ---
Author Organization [facility] Address [address] [place] [address] [address] [place] [address] Phone Care Team Providers Care Clinical Laboratory Technician Name Role Phone Johnna Tinajero MD Primary Care Provider + Encounter Details Date Type Department Care Team (Late st Contact Info) Description 06/30/2019 Telephone [facility] [address] [facility] [address] [place] [address] Johnna Tinajero MD [facility] [facility] [address] [place] [address] Social History Tobacco Use Types Packs/Day Years Used Date Smoking Tobacco: Never PHQ-2 Answer Date Recorded PHQ-2 Score 4 06/28/2019 Comments Unknown Sex and Gender Information Value Date Recorded Sex Assigned at Not on file 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 * Telephone Encounter - Aileen Garcia - 06/30/2019 11:06 AM CDT ----- Message from Johnna Tinajero MD sent at 06/30/2019 6:24 AM CDT ----- Please let mom know labs normal, including liver function tests. documented in this encounter Plan of Treatment Not on file documented as of this encounter Visit Diagnoses Not on filedocumented in this encounter Care Teams Clinical Laboratory Technician Relationship Specialty Start Date End Date Johnna Tinajero MD [address] [address] PCP - General 12/17/16 07/18/19 documented as of this encounter
--- OUTSIDE RECORDS SUMMARY | 2024-08-28 02:16 | XMS_ITS | Encounter Summary ---
Author Organization [facility] Address [address] [place] [address] [address] [place] [address] Phone Care Team Providers Care Electrical Installation Supervisor Name Role Phone Johnna Tinajero MD Primary Care Provider + Encounter Details Date Type Department Care Team (Late st Contact Info) Description 04/18/2019 Telephone [facility] [address] [facility] [address] [place] [address] Johnna Tinajero MD 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 Placed orders to have CMP e-drawn. Mom aware at [facility]. ----- Message from Johnna Tinajero MD sent at 04/16/2019 12:17 PM CDT ----- Contact: It was just a tiny bit out of range. If she is otherwise well, I would just repeat a CMP to see if it has normalized. Please order for the appropriate location, Dx. Elevated transaminase ----- Message ----- From: Madyson Roberts Sent: 04/15/2019 3:39 PM To: Johnna Tinajero MD Mom called and wanted to know your response to elevated LFT done in 01/2019 [facility]. ALT was 26. Any follow-up? documented in this encounter Plan of Treatment Not on file documented as of this encounter Procedures Procedure Name Priority Date/Time Associated Diagnosis Comments COMPREHENSIVE METABOLIC PANEL Routine 06/28/2019 8:28 AM CDT Elevated transaminase level documented in this encounter Results * Comprehensive metabolic panel (06/28/2019 8:28 AM CDT) Glucose 98 65 - 99 mg/dL [facility] [place] Comment: ? Fasting reference interval BUN 12 7 - 20 mg/dL [facility] Creatinine 0.74 0.50 - 1.00 mg/dL [facility] [place] Comment: Patient is <18 years old. Unable to calculate eGFR. BUN/creat ratio NOT APPLICABLE 6 - 22 (calc) [facility] Sodium 140 135 - 146 mmol/L [facility] [place] Potassium, pl 4.2 3.8 - 5.1 mmol/L [facility] [place] Chloride 106 98 - 110 mmol/L [facility] CO2 27 20 - 32 mmol/L [facility] [place] Calcium 9.7 8.9 - 10.4 mg/dL [facility] [place] Protein, sr 7.3 6.3 - 8.2 g/dL [facility] [place] Albumin 4.2 3.6 - 5.1 g/dL [facility] [place] GLOBULIN 3.1 2.0 - 3.8 g/dL (calc) [facility] [place] Alb/glob ratio 1.4 1.0 - 2.5 (calc) [facility] [place] Bilirubin, total 0.6 0.2 - 1.1 mg/dL [facility] [place] Alk phos 71 47 - 176 U/L [facility] AST 23 12 - 32 U/L [facility] [place] ALT (SGPT) 26 5 - 32 U/L [facility] [place] Blood specimen (specimen) 06/28/2019 8:28 AM CDT 06/28/2019 8:30 AM CDT Narrative [facility] - 06/29/2019 2:08 AM CDT FASTING:YES FASTING: YES Resulting Agency Comment Performing Organization Information: ?Site ID: [id number] ?Name: [facility] ?Address: [address] [place], [place] [address] [address] [address] ?Director: Viktor Landry D.O., MPH us Johnna Tinajero MD LAB BLOOD ORDERABLES Fin al Result Performing Organization Address City/State/[facility] Co de Phone Number [facility] [place] documented in this encounter Visit Diagnoses Diagnosis Elevated transaminase level- Primary documented in this encounter Care Teams Electrical Installation Supervisor Relationship Specialty Start Date End Date Johnna Tinajero MD [address] [address] PCP - General 12/17/16 07/18/19 documented as of this encounter
--- OUTSIDE RECORDS SUMMARY | 2024-08-28 02:16 | XMS_ITS | Encounter Summary ---
Author Organization [facility] Address [address] [place] [address] Care Team Providers Care Mainspring Former Brace End Name Role Phone Johnna Tinajero MD Primary Care Provider + Encounter Details Date Type Department Care Team (Latest Contact Info) Description 12/23/2016 11:56 AM CDT - 12/23/2016 11:59 PM CDT Hospital Encounter [facility] [phone] Cecilia Owen MD [address] [address] Discharge Disposition: Discharge to home or self care Social History Tobacco Use Types Packs/Day Years Used Date Smoking Tobacco: Never Comments Unknown Sex and Gender Information Value Date Recorded Sex Assigned at Not on file 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 ADWOA NOVOA M.D. FINAL REPORT The radiology attending physician has personally reviewed this study, and has reviewed and/or edited this written report and agrees with it. ACC# ??Date Time ??Exam [id number] Dec 23, 2016 12:43:00 [id number] MRI BRAIN W WO CONTRAST EXAMINATION: ?? Magnetic resonance imaging (MRI) of the brain and brainstem without and with contrast HISTORY: Dizziness and ataxia for 2 months. TECHNIQUE: Multiplanar multi-weighted MRI of the brain and brainstem was performed without and with intravenous contrast using the brain tumor protocol. This included high-resolution T1-weighted images with intravenous contrast and data for perfusion analysis. Contrast information: 20 mL Dotarem COMPARISON: 07/19/2014. FINDINGS: The superior sagittal sinus demonstrates normal venous flow. The corpus callosum is normal in shape and signal intensity. The posterior fossa is unremarkable. The pituitary and sella are normal. The brainstem and craniocervical junction are unremarkable. Diffusion weighted images reveal no hyperintensities to suggest acute cerebral infarction. The ventricles are normal in size and position without evidence of hydrocephalus. The paranasal sinuses are normal. The visualized portions of the mastoids are unremarkable. The orbits appear normal. Normal flow voids are demonstrated in the carotid arteries and basilar artery. IMPRESSION: ?? Normal brain MRI. Requested By: Cecilia Owen ??Josue ? Dictated By: ?? ADWOA NOVOA M.D. ??on Dec 23 2016 ??2:20P This document has been electronically signed by: EKTA REGALADO M.D. on Dec 24 2016 ??1:57P Procedure Note Miscellaneous, Not In File / Provider, MD Jesus - 01/23/2017 EKTA REGALADO M.D. ADWOA NOVOA M.D. FINAL REPORT The radiology attending physician has personally reviewed this study, and has reviewed and/or edited this written report and agrees with it. [facility]# Date Time Exam [id number] Dec 23, 2016 12:43:00 [id number] MRI BRAIN W WO CONTRAST EXAMINATION: Magnetic resonance imaging (MRI) of the brain and brainstem without and with contrast HISTORY: Dizziness and ataxia for 2 months. TECHNIQUE: Multiplanar multi-weighted MRI of the brain and brainstem was performed without and with intravenous contrast using the brain tumor protocol. This included high-resolution T1-weighted images with intravenous contrast and data for perfusion analysis. Contrast information: 20 mL Dotarem COMPARISON: 07/19/2014. FINDINGS: The superior sagittal sinus demonstrates normal venous flow. The corpus callosum is normal in shape and signal intensity. The posterior fossa is unremarkable. The pituitary and sella are normal. The brainstem and craniocervical junction are unremarkable. Diffusion weighted images reveal no hyperintensities to suggest acute cerebral infarction. The ventricles are normal in size and position without evidence of hydrocephalus. The paranasal sinuses are normal. The visualized portions of the mastoids are unremarkable. The orbits appear normal. Normal flow voids are demonstrated in the carotid arteries and basilar artery. IMPRESSION: Normal brain MRI. Requested By: Cecilia Owen M.D. Dictated By: ADWOA NOVOA M.D. on Dec 23 2016 2:20P This document has been electronically signed by: EKTA REGALADO M.D. on Dec 24 2016 1:57P us Not In File Miscellaneous IMG MRI PROCEDURES Fin al Result documented in this encounter Visit Diagnoses Not on filedocumented in this encounter Care Teams Mainspring Former Brace End Relationship Specialty Start Date End Date Johnna Tinajero MD [address] [address] PCP - General 12/17/16 07/18/19 documented as of this encounter
--- OUTSIDE RECORDS SUMMARY | 2024-08-28 02:16 | XMS_ITS | Encounter Summary ---
Author Organization [facility] Address [address] [place] [address] [address] [place] [address] Phone Care Team Providers Care Chiropractic Assistant Name Role Phone Johnna Tinajero MD Primary Care Provider + Encounter Details Date Type Department Care Team (Late st Contact Info) Description 02/17/2019 Telephone [facility] [address] [facility] [address] [place] [address] Johnna Tinajero MD [address] [place] [address] [address] [place] [address] Social History Tobacco Use Types Packs/Day Years Used Date Smoking Tobacco: Never Comments Unknown Sex and Gender Information Value Date Recorded Sex Assigned at Not on file 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 Itchy, slightly raised, red bumps. Mom asking if this could berelated to antibiotic. No SOB, no hives, A&O x 4, good I&O. Mom says she has taken a shower and the discomfort decreased significantly. Advised mom that she can apply HCT 1% thin layer to affected areas BID, monitor for worsening symptoms. If itching and discomfort continue or worsen start Benadryl q 6 hours and CB for acute visit to have evaluated for possible reaction. Mom verbalized understanding, will CB as needed. documented in this encounter Plan of Treatment Not on file documented as of this encounter Visit Diagnoses Not on filedocumented in this encounter Care Teams Chiropractic Assistant Relationship Specialty Start Date End Date Johnna Tinajero MD [address] [address] PCP - General 12/17/16 07/18/19 documented as of this encounter
--- OUTSIDE RECORDS SUMMARY | 2024-08-28 02:16 | XMS_ITS | Encounter Summary ---
Author Organization [facility] Facility Care Team Providers Care Assistant Passenger Locomotive Engineer Name Role Phone Unavailable Primary Care Provider Unavailabl e Encounter Details Date Type Department Care Team (Latest Contact Info) Description 08/22/2013 1:04 PM MACHINIST CLASS B - 08/22/2013 11:59 PM MACHINIST CLASS B Hospital Encounter [facility] CLINCONV Pain in joint, forearm Social History Tobacco Use Types Packs/Day Years Used Date Smoking Tobacco: Never Assessed Comments Unknown Sex and Gender Information Value Date Recorded Sex Assigned at Not on file Legal Sex 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 MACHINIST CLASS B Gender Identity Not on file Sexual Orientation Not on file documented as of this encounter Plan of Treatment Not on file documented as of this encounter Procedures Procedure Name Priority Date/Time Associated Diagnosis Comments MRI UPPER EXTREMITY JOINT WO CONTRAST Routine 08/22/2013 2:44 PM MACHINIST CLASS B documented in this encounter Results * MRI Upper Extremity Joint WO Contrast (08/22/2013 2:44 PM MACHINIST CLASS B) Anatomical Region Laterality Modality Upper Extremities N/A Magnetic Reson ance 08/22/2013 2:44 PM MACHINIST CLASS B Narrative 08/22/2013 3:31 PM MACHINIST CLASS B MILAGROS ANTHONY M.D. ROBERT CAMACHO M.D. FINAL REPORT The radiology attending physician has personally reviewed this study, and has reviewed and/or edited this written report and agrees with it. ACC# ??Date Time ??Exam [id number] Aug 22, 2013 14:44:00 [id number] MRI WRIST WO R EXAMINATION: ?MR study of right wrist without contrast. HISTORY: ??Right wrist pain. Assess for bony edema, extensor tendon injury or inflammation. TECHNIQUE: MR study of right wrist was performed according to standard protocol without intravenous contrast. FINDINGS: ?? No prior images are available for comparison. Extensor as well as flexor tendons of the wrist appear normal. No evidence of extensor tendon injury. Visible muscles appear normal. Visible bones appear normal. No evidence of abnormal marrow signal intensity. Right wrist joint appears unremarkable. No evidence of joint effusion or erosions. No evidence of ganglion cyst. Median nerve appears normal. IMPRESSION: ?? Normal MR study of right wrist. Requested By: RY CHAIDEZ M.D. Dictated By: ?? ROBERT CAMACHO M.D. ??on Aug 22 2013 ??3:17P This document has been electronically signed by: MILAGROS ANTHONY M.D. on Aug 22 2013 ??3:31P Procedure Note Provider, MD Jesus - 01/01/2017 Josue JOHNSON M.D. FINAL REPORT The radiology attending physician has personally reviewed this study, and has reviewed and/or edited this written report and agrees with it. ACC# Date Time Exam [id number] Aug 22, 2013 14:44:00 [id number] MRI WRIST WO R EXAMINATION: MR study of right wrist without contrast. HISTORY: Right wrist pain. Assess for bony edema, extensor tendon injury or inflammation. TECHNIQUE: MR study of right wrist was performed according to standard protocol without intravenous contrast. FINDINGS: No prior images are available for comparison. Extensor as well as flexor tendons of the wrist appear normal. No evidence of extensor tendon injury. Visible muscles appear normal. Visible bones appear normal. No evidence of abnormal marrow signal intensity. Right wrist joint appears unremarkable. No evidence of joint effusion or erosions. No evidence of ganglion cyst. Median nerve appears normal. IMPRESSION: Normal MR study of right wrist. Requested By: RY CHAIDEZ M.D. Dictated By: ROBERT ACMACHO M.D. on Aug 22 2013 3:17P This document has been electronically signed by: MILAGROS ANTHONY M.D. on Aug 22 2013 3:31P us Historical Provider MD CARLISLE MRI PROCEDURES Final Result documented in this encounter Visit Diagnoses Diagnosis Pain in joint, forearm documented in this encounter
--- OUTSIDE RECORDS SUMMARY | 2024-08-28 02:16 | XMS_ITS | Encounter Summary ---
Author Organization [facility] Address [facility] [address] [place] [address] Phone Care Team Providers Care Diamond Setter Apprentice Name Role Phone Johnna Tinajero MD Primary Care Provider + Encounter Details Date Type Department Care Team (Late st Contact Info) Description 07/18/2019 Telephone [facility] [address] [facility] [address] [place] [address] Johnna Tinajero MD [facility] [address] [place] [address] Social History Tobacco Use Types Packs/Day Years Used Date Smoking Tobacco: Never PHQ-2 Answer Date Recorded PHQ-2 Score 4 06/28/2019 Comments Unknown Sex and Gender Information Value Date Recorded Sex Assigned at Not on file Legal Sex 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 PEDIATRIC ANESTHESIOLOGIST Gender Identity Not on file Sexual Orientation Not on file documented as of this encounter Miscellaneous Notes * Telephone Encounter - Basilia Dillard RN - 07/18/2019 4:48 PM PEDIATRIC ANESTHESIOLOGIST School excuse for visit today. Faxed to [facility] [phone]. ATRIC ANESTHESIOLOGIST documented in this encounter Plan of Treatment Not on file documented as of this encounter Visit Diagnoses Not on filedocumented in this encounter Care Teams Diamond Setter Apprentice Relationship Specialty Start Date End Date Johnna Tinajero MD [address] [address] PCP - General 12/17/16 07/18/19 documented as of this encounter
--- OUTSIDE RECORDS SUMMARY | 2024-08-28 02:16 | XMS_ITS | Encounter Summary ---
Author Organization [facility] Address [address] [place] [address] [address] [place] [address] Phone Care Team Providers Care Data Communications Analyst Name Role Phone Johnna De La Cruz MD Primary Care Provider + Johnna De La Cruz MD Unavailable [phone] Encounter Details Date Type Department Care Team (Late st Contact Info) Description 07/19/2019 Telephone [facility] [address] [place] [address] Johnna De La Cruz MD [address] [place] [address] Social History Tobacco Use Types Packs/Day Years Used Date Smoking Tobacco: Never PHQ-2 Answer Date Recorded PHQ-2 Score 4 06/28/2019 Comments No Sex and Gender Information Value Date Recorded Sex Assigned at Not on file Legal Sex 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 OPTIMIZATION SPECIALIST Gender Identity Not on file Sexual Orientation Not on file documented as of this encounter Miscellaneous Notes * Telephone Encounter - Aileen Garcia - 07/19/2019 9:45 AM CST PHONE CALL FROM MOM REGARDING NINA SEEN IN OFFICE YESTERDAY FOR ABDOMINAL PAIN. TODAY SHE IS NOT BETTER EVEN WORSE HAD PT TOUCH TOES AND JUMP UP AND DOWN AND COULD NOT DUE TO BELLY PAIN APPT OFFEREDHERE WITH DR SAUL NEXT AVAILABLE AT [address] MOM I THINK SHE SHOULD GO TO [facility] ER MOM AGREES AND ICALLED ER TO INFORM PATIENT WAS COMING AND TO CALL DR DE LA CRUZ WITH REPORT OF PATIENT. MIZATION SPECIALIST documented in this encounter Plan of Treatment Not on file documented as of this encounter Visit Diagnoses Not on filedocumented in this encounter Care Teams Data Communications Analyst Relationship Specialty Start Date End Date Johnna De La Cruz MD [address] [address] PCP - General Pediatrics 07/19/19 01/26/23 Johnna De La Cruz MD [address] [facility] [address] [place] [address] 07/19/19 documented as of this encounter
--- OUTSIDE RECORDS SUMMARY | 2024-08-28 02:16 | XMS_ITS | Encounter Summary ---
Author Organization [facility] Facility Care Team Providers Care Marketing Assistant Manager Name Role Phone Unavailable Primary Care Provider Unavailabl e Encounter Details Date Type Department Care Team (Latest Contact Info) Description 11/17/2013 12:56 PM CDT - 11/17/2013 11:59 PM CDT Hospital Encounter [facility] CLINCONV Pain in joint, forearm Social History Tobacco Use Types Packs/Day Years Used Date Smoking Tobacco: Never Assessed Comments Unknown Sex and Gender Information Value Date Recorded Sex Assigned at Not on file Legal Sex 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 MODEL PHOTOGRAPHERS' Gender Identity Not on file Sexual Orientation Not on file documented as of this encounter Plan of Treatment Not on file documented as of this encounter Procedures Procedure Name Priority Date/Time Associated Diagnosis Comments XR WRIST 2 VW Routine 11/17/2013 1:02 PM CDT XR WRIST 2 VW Routine 11/17/2013 1:02 PM CDT documented in this encounter Results * XR Wrist 2 VW (11/17/2013 1:02 PM CDT) Anatomical Region Laterality Modality N/A Radiographic Ria ging 11/17/2013 1:02 PM CDT Narrative 11/17/2013 2:27 PM CDT MILAGROS ANTHONY M.D. NILAM PARENT, FINAL REPORT The radiology attending physician has personally reviewed this study, and has reviewed and/or edited this written report and agrees with it. ACC# ??Date Time ??Exam [id number] Nov 17, 2013 13:02:00 [id number] WRIST 2V R [id number] Nov 17, 2013 13:02:00 69027 WRIST 2V L EXAMINATION: ? 1. Left wrist 2 views reduced service. 2. Right wrist 2 views reduced service. HISTORY: ??Wrist pain FINDINGS: ?? Supinated clenched fist views of the right and left wrist are obtained. Comparison is made to prior plain film examinations dated 11/08/2012. ??There are no acute fractures. Alignment is normal. Joint spaces are maintained. There is no soft tissue swelling. IMPRESSION: ?? Normal clenched fist views of the right and left wrist. Requested By: RY CHAIDEZ M.D. Dictated By: ?? NILAM RIVERA, ?? on Nov 17 2013 ??1:44P This document has been electronically signed by: MILAGROS ANTHONY M.D. on Nov 17 2013 ??2:27P Procedure Note Provider, MD Jesus - 01/01/2017 MILAGROS ANTHONY M.D. NILAM RIVERA, FINAL REPORT The radiology attending physician has personally reviewed this study, and has reviewed and/or edited this written report and agrees with it. ACC# Date Time Exam [id number] Nov 17, 2013 13:02:00 60198 WRIST 2V R [id number] Nov 17, 2013 13:02:00 13841 WRIST 2V L EXAMINATION: 1. Left wrist 2 views reduced service. 2. Right wrist 2 views reduced service. HISTORY: Wrist pain FINDINGS: Supinated clenched fist views of the right and left wrist are obtained. Comparison is made to prior plain film examinations dated 11/08/2012. There are no acute fractures. Alignment is normal. Joint spaces are maintained. There is no soft tissue swelling. IMPRESSION: Normal clenched fist views of the right and left wrist. Requested By: RY CHAIDEZ M.D. Dictated By: NILAM RIVERA on Nov 17 2013 1:44P This document has been electronically signed by: MILAGROS ANTHONY M.D. on Nov 17 2013 2:27P us Historical Provider MD CARLISLE XR PROCEDURES Final R esult * XR Wrist 2 VW (11/17/2013 1:02 PM CDT) Anatomical Region Laterality Modality N/A Radiographic Ria ging 11/17/2013 1:02 PM CDT Narrative 11/17/2013 2:27 PM CDT MILAGROS ANTHONY M.D. NILAM RIVERA, FINAL REPORT The radiology attending physician has personally reviewed this study, and has reviewed and/or edited this written report and agrees with it. ACC# ??Date Time ??Exam [id number] Nov 17, 2013 13:02:00 [id number] WRIST 2V R [id number] Nov 17, 2013 13:02:00 46732 WRIST 2V L EXAMINATION: ? 1. Left wrist 2 views reduced service. 2. Right wrist 2 views reduced service. HISTORY: ??Wrist pain FINDINGS: ?? Supinated clenched fist views of the right and left wrist are obtained. Comparison is made to prior plain film examinations dated 11/08/2012. ??There are no acute fractures. Alignment is normal. Joint spaces are maintained. There is no soft tissue swelling. IMPRESSION: ?? Normal clenched fist views of the right and left wrist. Requested By: RY CHAIDEZ M.D. Dictated By: ?? NILAM RIVERA, ?? on Nov 17 2013 ??1:44P This document has been electronically signed by: MILAGROS ANTHONY M.D. on Nov 17 2013 ??2:27P Procedure Note Provider, MD Jesus - 01/01/2017 MILAGROS ANTHONY M.D. NILAM RIVERA, FINAL REPORT The radiology attending physician has personally reviewed this study, and has reviewed and/or edited this written report and agrees with it. ACC# Date Time Exam [id number] Nov 17, 2013 13:02:00 [id number] WRIST 2V R [id number] Nov 17, 2013 13:02:00 [id number] WRIST 2V L EXAMINATION: 1. Left wrist 2 views reduced service. 2. Right wrist 2 views reduced service. HISTORY: Wrist pain FINDINGS: Supinated clenched fist views of the right and left wrist are obtained. Comparison is made to prior plain film examinations dated 11/08/2012. There are no acute fractures. Alignment is normal. Joint spaces are maintained. There is no soft tissue swelling. IMPRESSION: Normal clenched fist views of the right and left wrist. Requested By: RY CHAIDEZ M.D. Dictated By: NILAM RIVERA on Nov 17 2013 1:44P This document has been electronically signed by: MILAGROS ANTHONY M.D. on Nov 17 2013 2:27P us Historical Provider MD CARLISLE XR PROCEDURES Final R esult documented in this encounter Visit Diagnoses Diagnosis Pain in joint, forearm documented in this encounter
--- OUTSIDE RECORDS SUMMARY | 2024-08-28 02:16 | XMS_ITS | Encounter Summary ---
Author Organization [facility] Address [address] [place] [address] [address] [place] [address] Phone Care Team Providers Care Machine Clerical Verifier Name Role Phone Johnna Tinajero MD Primary Care Provider + Reason for Visit * Reason Comments Well Child 18 YEAR CHECK Encounter Details Date Type Department Care Team (Late st Contact Info) Description 08/17/2018 3:45 PM PHP MYSQL WEB DEVELOPER Office Visit [facility] [address] [facility] [address] [place] [address] Johnna Tinajero MD [address] [place] [address] [address] [place] [address] Encounter for routine child health examination with abnormal findings (Primary Dx); Vitamin D deficiency; Asthma, moderate persistent, well-controlled; Obesity without serious comorbidity with body mass index (BMI) greater than 99th percentile for age in pediatric patient, unspecified obesity type; Irregular menses Social History Tobacco Use Types Packs/Day Years Used Date Smoking Tobacco: Never Comments Unknown Sex and Gender Information Value Date Recorded Sex Assigned at Not on file Legal Sex 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 PHP MYSQL WEB DEVELOPER Gender Identity Not on file Sexual Orientation Not on file documented as of this encounter Last Filed Vital Signs Vital Sign Reading Time Taken Comments Blood Pressure 112/52 08/17/2018 3:57 PM PHP MYSQL WEB DEVELOPER Pulse - - Temperature - - Respiratory Rate - - Oxygen Saturation - - Inhaled Oxygen Concentration - - Weight 105.6 kg (232 lb 11. 2 oz) 08/17/2018 3:57 PM PHP MYSQL WEB DEVELOPER Height 160 cm (5' 3 ) 08/17/2018 3:57 PM PHP MYSQL WEB DEVELOPER Body Mass Index 41.22 08/17/2018 3:57 PM PHP MYSQL WEB DEVELOPER Body Mass Index Percentile 99.64% 08/17/2018 3:5 7 PM PHP MYSQL WEB DEVELOPER Growth Chart: [facility] (Girls, 2- 20 Years) documented in this encounter Progress Notes * Jhonna Tinajero MD - 08/17/2018 3:45 PM CST Subjective Nina Coyne is a 18 y.o. female who is here for her well child visit accompanied by mother Abdominal symptoms that she had in the spring resolved and have not recurred Fewer headaches now; has only missed two full days. Occasionally leaves early (4-5 times this year). This is best year Asthma : flared at [facility]; didn't have to be seen, didn't need oral steroids. That time of year is always bad. Patient Active Problem List Diagnosis ??? Migraine headache ??? Obesity ??? Asthma, moderate persistent, well-controlled ??? Abnormal electrocardiography ??? Dander (animal) allergy ??? Intrinsic asthma with exacerbation Current Outpatient Prescriptions: ??? fluticasone-vilanterol (BREO ELLIPTA) 100-25 mcg/dose diskus inhaler, Inhale 1 puff daily., Disp: , Rfl: ??? albuterol (PROVENTIL,VENTOLIN) 1.25 mg/3 mL nebulizer solution, Take 3 mL by nebulization every4 (four) hours as needed., Disp: , Rfl: ??? cetirizine 10 mg capsule, Take 1 tablet by mouth daily., Disp: , Rfl: ??? fluticasone (FLONASE) 50 mcg/actuation nasal spray, Administer 2 sprays into each nostril., Disp: , Rfl: ??? FLUZONE QUAD [id number], PF, 60 mcg (15 mcg x 4)/0.5 mL syringe, , Disp: , Rfl: 0 ??? montelukast (SINGULAIR) 10 mg tablet, Take 10 mg by mouth daily., Disp: , Rfl: ??? PROAIR HFA 90 mcg/actuation inhaler, Inhale 2 puffs every 4 (four) hours as needed., Disp: , Rfl: 0 Allergies Allergen Reactions ??? Dog Dander Hives Reaction: HIVES, ??? Penicillins Other (See comments) and Rash As a child Reaction: NAUSEA;, Immunization History Administered Date(s) Administered ??? DTaP 2002, 2002, 2002, 02/24/2003, 02/23/2006 ??? HPV9 02/22/2015, 12/06/2015, 06/09/2016 ??? Hep A, Unspecified 03/30/2007, 02/01/2008 ??? Hep B Vaccine 2002, 2002, 2002 ??? HiB 2002, 2002, 2002, 02/24/2003 ??? IPV 2002, 2002, 2002, 02/23/2006 ??? Influenza, Quadrivalent, Split, Preservative Free, Intramuscular 06/09/2016, 06/08/2017 ??? Influenza, Trivalent, Preservative Free, Intramuscular 06/25/2006, 07/11/2010, 06/17/2011, 05/22/2012, 07/04/2013 ??? MMR 02/24/2003, 02/23/2006 ??? Meningococcal MCV4P (Menactra) 09/12/2013 ??? PPD TEST 02/23/2006 ??? Pneumococcal Conjugate, Unspecified 2002, 2002, 02/24/2003 ??? Tdap 03/25/2013 ??? Varicella 02/24/2003, 02/01/2008 I have reviewed: allergies, current medications, past medical history, past social history, past surgical history and problem list Well Child Assessment: Nutrition Food source: lactose intolerant. Could eat more veggies. Elimination Elimination problems do not include constipation, diarrhea or urinary symptoms. Sleep Average sleep duration (hrs): 6-7 on school nights; feels chronically tired. sometimes takes a nap for a couple of hours. There are sleep problems (sometimes sleep onset problems). Safety There is no smoking in the home. School Current grade level is 10th. Current school [place] is [place]. Child is performing acceptably in school. Social After school activity: drama; dance class this summer and may do it again. Menses: not regular, skips a few months sometimes. In last 12 months only 4 maybe. Started doing that last year. Menarche age 14 or so. High risk behaviors: None Wears a helmet: N/A Wears seatbelt: Yes Any concerns about hearing or vision? No ;has glasses Objective Vitals: 08/17/18 1557 BP: 112/52 Weight: 105.6 kg (232 lb 11.2 oz) Height: 160 cm (5' 3 ) >99 %ile (Z= 2.38) based on [facility] 2-20 Years [id number] data using vitals from 08/17/2018. 34 %ile (Z= -0.42) based on CDC 2-20 Years [id number] data using vitals from 08/17/2018. >99 %ile (Z= 2.42) based on CDC 2-20 Years BMI-for-age data using vitals from 08/17/2018. Growth parameters are noted and are not appropriate for age. General: Alert, NAD Skin: No rashes Head: Normocephalic, atraumatic Eyes: Sclera clear, EOMI, PERRLA Ears: Normal external ears. TMs normal bilaterally Mouth: Normal Neck: Supple, no LAD, full [...] routine child health examination with abnormal findings - Meningococcal conjugate vaccine MCV4P IM - Meningococcal B, Recombinant 2. Vitamin D deficiency Repeat level to verify a now normal level since taking supplementation - Vitamin D 25 hydroxy; Future - Vitamin D 25 hydroxy 3. Asthma, moderate persistent, well-controlled continueBreo Ellipta as per Dr. Rock's recommendations 4. Obesity without serious comorbidity with body mass index (BMI) greater than 99th percentile for age in pediatric patient, unspecified obesity type Discussed possible consequences and causes; recommended more regular activity 5. Irregular menses. Referral to [facility] [employer]; consider PCOS. 1. Anticipatory guidance. Discussed the following: Peer relations, Hobbies, School performance, Body image/dieting, Exercise/physicial activity, Sexual education/STD's, Seatbelt/airbags, Contraception/Family planning, Alcohol, drugs, smoking and driving and Feeding: { 3 balanced meals, Iron, Calcium and Obesity 2. Immunizations today: per orders. History of previous adverse reactions to immunizations? No 3. Weight management: The patient was counseled regarding nutrition and physical activity. 4. Hearing screen normal Yes Vision screen normal Yes 5. PHQ-9 given and reviewed. Score = 3. Follow up indicated: No. Follow-up visit in 1 year for next well child visit, or sooner as needed. Johnna Tinajero MD MYSQL WEB DEVELOPER documented in this encounter Plan of Treatment Scheduled Orders Name Type Priority Associated Diagnoses Orde r Schedule Vitamin D 25 hydroxy Lab Routine Vitamin D deficiency Expected: 08/17/2018, Expires: 08/17/2019 documented as of this encounter Visit Diagnoses Diagnosis Encounter for routine child health examination with abnormal findings- Primary Vitamin D deficiency Asthma, moderate persistent, well-controlled Unspecified asthma Obesity without serious comorbidity with body mass index (BMI) greater than 99th percentile for age in pediatric patient, unspecified obesity type Irregular menses Irregular menstrual cycle documented in this encounter Discontinued Medications Medication Sig Discontinue Reason Start Date End Da te montelukast (SINGULAIR) 10 mg tablet Take 10 mg by mouth daily. Therapy completed 08/17/2018 documented as of this encounter Historical Medications * This list may reflect changes made after this encounter. cholecalciferol (VITAMIN D-3) 2,000 unit tablet Take 1 tablet by mouth daily. 06/28/2019 FLUZONE QUAD [id number], PF, 60 mcg (15 mcg x 4)/0.5 mL syringe 0 07/21/2018 019 added in this encounter Orders Immunization/Injection Count Last Ordered Date First Ordered Date MENINGOCOCCAL B, RECOMBINANT (TRUMENBA) 1 1 10/18/2017 MENINGOCOCCAL CONJUGATE VACC INE MCV4P IM (MENACTRA) 1 08/17/2018 documented in this encounter Care Teams Machine Clerical Verifier Relationship Specialty Start Date End Date Johnna Tinajero MD [address] [address] PCP - General 12/17/16 07/18/19 documented as of this encounter
--- OUTSIDE RECORDS SUMMARY | 2024-08-28 02:16 | XMS_ITS | Encounter Summary ---
Author Organization [facility] Address [address] [place] [address] Phone Care Team Providers Care Boat Buffer Plastic Name Role Phone Johnna Tinajero MD Primary Care Provider + Johnna Tinajero MD Unavailable [phone] Reason for Visit * Consultation (Routine) - Canceled Specialty Diagnoses / Procedures Referred By Contact Referred To Contact Pediatric Gastroenterology Diagnoses Nausea Fatigue, unspecified type Theresa Fong MD 1 [facility] [address] [place] [address] Phone: tel: fax: [facility] (All Locations) Referral ID Status Reason Start Date Expiration Date Visits Requested Visits Authorized [id number] Canceled Specialty Services Required 08/11/2019 02/19/2021 1 1 Encounter Details Date Type Department Care Team (Late st Contact Info) Description 08/15/2019 9:30 AM PRIMER WATERPROOFING MACHINE ADJUSTER Office Visit [facility] Pediatric Gastroenterology [address] [facility] 2nd [place] [address] [place] [address] Nehemiah Zhao MD 1 [facility] [address] [place] [address] Abdominal pain, unspecified abdominal location (Primary Dx); Nausea Social History Tobacco Use Types Packs/Day Years Used Date Smoking Tobacco: Never PHQ-2 Answer Date Recorded PHQ-2 Score 4 06/28/2019 Comments No Sex and Gender Information Value Date Recorded Sex Assigned at Not on file Legal Sex 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 PRIMER WATERPROOFING MACHINE ADJUSTER Gender Identity Not on file Sexual Orientation Not on file documented as of this encounter Last Filed Vital Signs Vital Sign Reading Time Taken Comments Blood Pressure 110/78 08/15/2019 9:42 AM PRIMER WATERPROOFING MACHINE ADJUSTER Pulse 78 08/15/2019 9:42 AM PRIMER WATERPROOFING MACHINE ADJUSTER Temperature 36.9 ??C (98.5 ??F) 08/15/2019 9:42 AM CS T Respiratory Rate 16 08/15/2019 9:42 AM PRIMER WATERPROOFING MACHINE ADJUSTER Oxygen Saturation - - Inhaled Oxygen Concentration - - Weight 101.3 kg (223 lb 5.2 oz) 08/15/2019 9:42 AM PRIMER WATERPROOFING MACHINE ADJUSTER Height 162 cm (5' 3.78 ) 08/15/2019 9:42 AM PRIMER WATERPROOFING MACHINE ADJUSTER Body Mass Index 38.6 08/15/2019 9:42 AM PRIMER WATERPROOFING MACHINE ADJUSTER Body Mass Index Percentile 98.92% 08/15/2019 9:4 2 AM PRIMER WATERPROOFING MACHINE ADJUSTER Growth Chart: CDC (Girls, 2- 20 Years) documented in this encounter Progress Notes * Nehemiah Zhao MD - 08/15/2019 9:30 AM CST 08/15/2019 Nina Elvin Coyne 2000 We saw Nina today for an initial consultation in the Pediatric Gastroenterology, Hepatology & Nutrition office at [facility]. Nina is a 19 y.o. female with abdominal pain andnausea. She was accompanied by her mother. She has not previously been seen here in the GI office. The history is from them and previous records including prior notes, laboratory results and radiologic results. HPI Nina and mother are here for consultation for consideration of further evaluation and management of persistent nausea following Nina's recent [facility] hospital admission with nausea and abdominal pain.Nnia first noted nausea shortly after initiating citalopram in May. She was begun on 10 mg po qd for anxiety and depression. The dose was subsequently increased to 20 mg qd without apparent change in nausea, but with subsequent abdominal pain, initially periumbilical then RLQ pain, and decreased po intake. She was given a trial of po ondansetron as outpatient without apparent improvement, then admitted to [facility] from 07/19-07/23 for further evaluation and management. Pain was managed with toradol and other medications. She underwent extensive investigations (summarized below) with imaging studies and gynecology consultation interpreted as consistent with slowly leaking ovarian cyst as the source of her abdominal pain. She was discharged on a 5 day course of tylenol and Toradol with followup. She was seen in out-patient followup in her PMD's office on 08/02. Pain was noted to have improved, though there was also mention of continued ibuprofen use after stopping the Toradol. A PPI trial was prescribed (omeprazole 20 mg po every day x 2 weeks) and ondansetron renewed. She was seen back in the PMD office on 08/11 with continued improvement in abdominal pain but persistent nausea. However, the note from that office visit also mentions tenderness to palpation int he epigastrium. Following that visit last week the PMD contacted Ped GI at [facility] and an out-patient office visit was arranged for here today. The PMD also advised weaning the omeprazole and continuing prn zofran. Today, Nina and mother endorse that pain has generally been primarily RLQ and has generally improved considerably but that nausea persists. She denied vomiting, hematochezia, or melena. She did admit to recent viral symptoms and fever to 101, though uncertain when. She has been completely off ofall NSAIDs for more than 2 weeks now. She continues to use the zofran regularly. Abbreviated incomplete summary of recent studies (see EMR for all available records): Labs 08/11/19 - CBC, CMP, lipase, CRP (all normal range, hgb 13.4), EBV negative 08/02/19 - UA spec grav 1030 07/22/19 - TSH normal range 07/21/19 - hgb 10.5 07/19/19 - hgb 13.5, electrolytes, Cr, amylase, lipase normal range, UA spec grav 1.014 Imaging 07/21 - CT: 1. Normal appendix. 2. Right ovarian corpus luteal cyst with mild free fluid in the cul-de-sac. 07/20 - ultrasound pelvis and ovaries: normal; ultrasound abdomen limited: appendix not visualized;no definitive appendicitis; exam limited by patient's body habitus; 07/19 - ultrasound GB: normal She lists Breo, citalopram (20 mg p every day), and ondansetron as current medications. Past medical, surgical, family and social history reviewed and confirmed. - Nina and mother provided the following information on the intake form: PMH notable for wrist surgery for torn tendon at age 15 and prior hospitalizations for asthma. They also listed allergy to penicillin and seasonal allergies. - Nina lives at home with adoptive parents. Mother is 43 and works as teacher and father is 44 andis monitoring engineer. She has 14 yo sister and 10 yo brother. She has previously been involved in dance and recently involved in theatre. - She sees counselor for anxiety and depression. She has missed 12 d of school this year. She will attend [employer] school beginning next year. Allergies Allergen Reactions ??? Dog Dander Hives Reaction: HIVES, ??? Penicillins Other (See comments) and Rash As a child Reaction: NAUSEA;, As a child Review of Systems Constitutional: Negative. HENT: Negative. Eyes: Negative. Respiratory: Negative. H/o asthma Cardiovascular: Negative. Gastrointestinal: Positive for abdominal pain and nausea. Negative for blood in stool, diarrhea andvomiting. Pain was primarily RLW and has reportedly improved considerably. Nausea was 1st noted with initiation of citalopram and persists. Endocrine: Negative. Genitourinary: Irregular menses (1st period age 14) Musculoskeletal: Negative. Skin: Negative. Allergic/Immunologic: Positive for environmental allergies. Hematological: Negative. Psychiatric/Behavioral: Anxiety and depression BP 110/78 (BP Location: Right arm, Patient Position: Sitting) Pulse 78 Temp 36.9 ??C (98.5 ??F)(Oral) Resp 16 Ht 162 cm (5' 3.78 ) Wt 101.3 kg (223 lb 5.2 oz) BMI 38.60 kg/m?? Physical Exam Vitals signs and nursing note reviewed. Constitutional: General: She is not in acute distress. Appearance: She is obese. She is not ill-appearing or toxic-appearing. HENT: Head: Normocephalic and atraumatic. Mouth/Throat: Pharynx: Oropharynx is clear. Eyes: Extraocular Movements: Extraocular movements intact. Conjunctiva/sclera: Conjunctivae normal. Pupils: Pupils are equal, round, and reactive to light. Neck: Musculoskeletal: Normal range of motion and neck supple. Cardiovascular: Rate and Rhythm: Normal rate and regular rhythm. Pulses: Normal pulses. Heart sounds: No murmur. No friction rub. No gallop. Pulmonary: Effort: Pulmonary effort is normal. Breath sounds: Normal breath sounds. No wheezing. Abdominal: Palpations: Abdomen is soft. There is no mass. Tenderness: There is no tenderness. There is no guarding or rebound. Genitourinary: Comments: Exam deferred Musculoskeletal: Normal range of motion. Lymphadenopathy: Cervical: No cervical adenopathy. Skin: General: Skin is warm and dry. Capillary Refill: Nail tajik impacted assessment. Comments: Mild darkening but no thickening of skin on lateral apsects of her neck. A few cafe au lait spots were noted on her abdomen, chest and right hand (4 total). Neurological: General: No focal deficit present. Mental Status: She is alert and oriented to person, place, and time. Cranial Nerves: No cranial nerve deficit. Motor: No weakness. Coordination: Coordination normal. Gait: Gait normal. Deep Tendon Reflexes: Reflexes normal. Psychiatric: Mood and Affect: Mood normal. Behavior: Behavior normal. Thought Content: Thought content normal. Judgment: Judgment normal. Assessment 1. Abdominal pain, unspecified abdominal location 2. Nausea Discussion: The history raises several possibilities and questions about causes of her symptoms: - Nausea is reported to be a side effect of citalopram and the history is consistent with that possibility. - The pattern of pain, described by Nina and mother as primarily RLQ, is different than that of the nausea, suggesting the etiologies for the nausea and the RLQ pain might be different. Evaluations during the recent admission were interpreted as consistent with leaking ovarian cyst as causing the abdominal pain. - There was also reference to epigastric pain in the note about the PMD office visit from last week, which prompted the referral here today. Feli recalls that observation but also agrees that Nina does not have epigastric pain today. The NSAID exposure history raises the possibility of NSAID induced gastritis or ulcer. Based on these considerations, I advised Nina and mother to strictly avoid all NSAIDs. I also recommended they continue the omeprazole they still have on hand at 20 mg po bid for the next week. I told them we would arrange for repeat CBC in the next week or so. I also reviewed these considerationswith Dr. Tinajero who agreed that the history is consistent with citalopram as possible contributorto nausea. She will contact mother to discuss options for further management of anxiety and depression. We agreed to defer proceeding with EGD for now but reconsider based on course and findings. I also reviewed indications for consideration of urgent or emergent reevaluation with mother. Plan Diagnoses and all orders for this visit: Abdominal pain, unspecified abdominal location Nausea 1. Strict avoidance of NSAIDs. 2. Continue omeprazole at 20 mg po bid for the next week. 3. Repeat CBC this week. 4. Dr. Tinajero to consider further options for management of anxiety and depression given concern for citralopram as contributor to nausea. 5. Consider proceeding with EGD based on course. 6. We reviewed indications to call Dr. Tinajero or GI customer care voice consultant for consideration of urgent reevaluation. 7. We also discussed referral to Dr. [facility] based on her BMI which they expressed willingness to consider. The above considerations were reviewed with the patient, mother and Dr. Tinajero in detail. Thank you for the opportunity to see Nina. Nehemiah Zhao MD ER WATERPROOFING MACHINE ADJUSTER documented in this encounter Plan of Treatment Not on file documented as of this encounter Visit Diagnoses Diagnosis Abdominal pain, unspecified abdominal location- Primary Nausea Nausea alone documented in this encounter Care Teams Boat Buffer Plastic Relationship Specialty Start Date End Date Johnna Tinajero MD [address] [address] PCP - General Pediatrics 07/19/19 01/26/23 Johnna Tinajero MD [address] [address] 07/19/19 documented as of this encounter
--- OUTSIDE RECORDS SUMMARY | 2024-08-28 02:16 | XMS_ITS | Encounter Summary ---
Author Organization [facility] Facility Care Team Providers Care Special Events Assistant Name Role Phone Unavailable Primary Care Provider Unavailabl e Encounter Details Date Type Department Care Team (Late st Contact Info) Description 11/05/2015 4:52 PM NUCLEAR MEDICINE MEDICAL DIRECTOR - 11/06/2015 6:35 PM NUCLEAR MEDICINE MEDICAL DIRECTOR Hospital Encounter [facility] Kalie Palomino MD [address] [facility] [address] [place] [id number] Moderate persistent asthma with status asthmaticus; Acute upper respiratory infection; Unspecified enterovirus as the cause of diseases classified elsewhere; Obesity; Pediatric body mass index (BMI) of greater than or equal to 95th percentile for age; Dietary counseling and surveillance; Allergy status to penicillin; Other nonmedicinal substance allergy status Social History Tobacco Use Types Packs/Day Years Used Date Smoking Tobacco: Never Assessed Comments Unknown Sex and Gender Information Value Date Recorded Sex Assigned at Not on file Legal Sex 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 NUCLEAR MEDICINE MEDICAL DIRECTOR Gender Identity Not on file Sexual Orientation Not on file documented as of this encounter Last Filed Vital Signs Vital Sign Reading Time Taken Comments Blood Pressure 101/69 11/06/2015 7:50 AM NUCLEAR MEDICINE MEDICAL DIRECTOR Pulse 102 11/06/2015 6:08 PM NUCLEAR MEDICINE MEDICAL DIRECTOR Temperature - - Respiratory Rate - - Oxygen Saturation 98% 11/06/2015 7:50 AM NUCLEAR MEDICINE MEDICAL DIRECTOR Inhaled Oxygen Concentration - - Weight 101.2 kg (223 lb 1.7 oz) 016 11:20 PM NUCLEAR MEDICINE MEDICAL DIRECTOR Height 160 cm (5' 2.99 ) 11/05/2015 11: 20 PM NUCLEAR MEDICINE MEDICAL DIRECTOR Body Mass Index 39.53 11/05/2015 11:20 PM NUCLEAR MEDICINE MEDICAL DIRECTOR Body Mass Index Percentile 99.86% 11/04 11:20 PM NUCLEAR MEDICINE MEDICAL DIRECTOR Growth Chart: [facility] (Girls, 2- 20 Years) documented in this encounter Plan of Treatment Not on file documented as of this encounter Procedures Procedure Name Priority Date/Time Associated Diagnosis Comments DISCHARGE LABORATORY CUMULATIVE REPORT 11/06/2015 RESPIRATORY PATHOGEN MULTIPLEX PCR, CDR Routine 11/05/2015 8:23 PM NUCLEAR MEDICINE MEDICAL DIRECTOR ALL MICROBIOLOGY REPORT SECTION Routine 11/05/2015 12:00 AM NUCLEAR MEDICINE MEDICAL DIRECTOR documented in this encounter Results * DISCHARGE LABORATORY CUMULATIVE REPORT (11/06/2015) Narrative 11/06/2015 Ordered by an unspecified provider. us Historical Provider LAB BLOOD ORDERABLES Neris l Result * Respiratory Pathogen Multiplex PCR (11/05/2015 8:23 PM NUCLEAR MEDICINE MEDICAL DIRECTOR) Nasopharyngeal (Unknown) 11/05/2015 8:23 PM NUCLEAR MEDICINE MEDICAL DIRECTOR 11/05/2015 8:44 PM NUCLEAR MEDICINE MEDICAL DIRECTOR Impressions HISTORICAL RESULTS - 11/05/2015 10:10 PM NUCLEAR MEDICINE MEDICAL DIRECTOR The [employer] (formerly known as [employer]) FilmArray Respiratory Panel (RP) assay is a multiplexed nucleic acid test capable of simultaneous qualitative detection and identification of multiple respiratory viral and bacterial nucleic acids. ??The following bacteria, viruses and virus subtypes can be identified using the FilmArray RP assay: Bordetella pertussis, Chlamydophila pneumoniae, Mycoplasma pneumoniae, Adenovirus, Coronavirus HKU1, Coronavirus NL63, Coronavirus 229E, Coronavirus OC43, Influenza A, Influenza A subtype H1, Influenza A subtype H3, Influenza A subtype 2009 H1, Influenza B, Metapneumovirus, Parainfluenza 1, Parainfluenza 2, Parainfluenza 3, Parainfluenza 4, RSV, Rhinovirus/Enterovirus. Due to the genetic similarity between human Rhinovirus and Enterovirus, the FilmArray RP assay cannot reliably differentiate them. Coronavirus OC43 may cross-react with some isolates of Coronavirus HKU1. ??A dual positive result may be due to cross-reactivity or may indicate a co-infection. A version of the FilmArray RP assay updated to include an additional adenovirus assay was approved by the FDA in October,. ??The updated version has demonstrated improved detection of adenoviruses relative to the previous version. ??All of the other assays for the 20 targets are unchanged. ?? The detection and identification of specific viral and bacterial nucleic acids from individuals exhibiting signs and symptoms of a respiratory infection aids in the diagnosis of respiratory infection if used in conjunction with other clinical and epidemiological information. ??The results of this test should not be used as the sole basis for diagnosis, treatment, or other management decisions. ??Negative results in the setting of a respiratory illness may be due to infection with pathogens that are not detected by this test. ??Positive results do not rule out infection/co- infection with other organisms. ??The agent(s) detected by the FilmArray RP may not be the definite cause of disease. ??Additional testing (lab, imaging, etc) may be necessary when evaluating a patient with possible respiratory tract infection. The FilmArray RP assay is FDA cleared for STAVE LOG RIPSAW OPERATOR swabs. ??Additional sample types have been validated according to CLIA regulations. ??The performance characteristics of this assay have been determined by [facility]. Current interpretive data was last revised on 2013. Narrative HISTORICAL RESULTS - 11/05/2015 10:10 PM NUCLEAR MEDICINE MEDICAL DIRECTOR Respiratory Pathogen nucleic acids DETECTED (POSITIVE) for the following: Rhinovirus/Enterovirus us Historical Provider LAB MICROBIOLOGY - GENERA L ORDERABLES Final Result HISTORICAL RESULTS * All Microbiology Report Section (11/05/2015 12:00 AM NUCLEAR MEDICINE MEDICAL DIRECTOR) 11/05/2015 Narrative HISTORICAL RESULTS - 11/06/2015 12:12 AM NUCLEAR MEDICINE MEDICAL DIRECTOR ?[facility] ? Clinical Laboratories ?[address] ?[place], [place] [address] ? Patient Name: ? NINA BAUTISTA ? Med Rec Number: ? [id number] ? Fin Number: ? [id number] ? Date: ? 2000 ? Sex/Age: ?Female 15 years ? Admit Date: ? 11/05/2015 ? Discharge Date: ? Doctor: ? Physician , EU ? Facility: ? [facility] ? Location: ? 7E 7E10 B ? * Abnormal ??C Critical ??f Footnote ??^ Corrected ??L Low ??H High ?i Interp Data ??@ Ref Lab ? Chart Type: Cumulative ?* * * * MICROBIOLOGY - VIROLOGY * * * * ?PROCEDURE: Respiratory Pathogen Multiplex PCR ? SOURCE: Nasopharyngeal ? COLLECTED: 11/04/ ??2022 ?BODY SITE: ? STARTED: 11/05/15 ??2044 ? FREE TEXT SOURCE: ? FINAL REPORT ? REPORTED: 11/05/152209 ? Respiratory Pathogen nucleic acids DETECTED (POSITIVE) for the ? following: ? Rhinovirus/Enterovirus ?* * * ??Interpretive Results ??* * * ? (1)The [employer] (formerly known as [employer]) ? FilmArray Respiratory Panel (RP) assay is a multiplexed nucleic ? acid test capable of simultaneous qualitative detection and ? identification of multiple respiratory viral and bacterial ? nucleic acids. ??The following bacteria, viruses and virus ? subtypes can be identified using the FilmArray RP assay: ? Bordetella pertussis, Chlamydophila pneumoniae, Mycoplasma ? pneumoniae, Adenovirus, Coronavirus HKU1, Coronavirus NL63, ? Coronavirus 229E, Coronavirus OC43, Influenza A, Influenza A ? subtype H1, Influenza A subtype H3, Influenza A subtype 2009 H1, ? Influenza B, Metapneumovirus, Parainfluenza 1, Parainfluenza 2, ? Parainfluenza 3, Parainfluenza 4, RSV, Rhinovirus/Enterovirus. ? Due to the genetic similarity between human Rhinovirus and ? Enterovirus, the FilmArray RP assay cannot reliably ? differentiate them. Coronavirus OC43 may cross-react with some ? isolates of Coronavirus HKU1. ??A dual positive result may be due ? to cross-reactivity or may indicate a co-infection.A version of ? the FilmArray RP assay updated to include an additional ? adenovirus assay was approved by the FDA in October,. ??The ? updated version has demonstrated improved detection of ? adenoviruses relative to the previous version. ??All of the other ? assays for the 20 targets are unchanged. ??The detection and ? identification of specific viral and bacterial nucleic acids ? from individuals exhibiting signs and symptoms of a respiratory ? infection aids in the diagnosis of respiratory infection if used ? in conjunction with other clinical and epidemiological ? information. ??The results of this test should not be used as the ? sole basis for diagnosis, treatment, or other management ? decisions. ??Negative results in the setting of a respiratory ? illness may be due to infection with pathogens that are not ? detected by this test. ??Positive results do not rule out ? infection/co-infection with other organisms. ??The agent(s) ? detected by the FilmArray RP may not be the definite cause of ? disease. ??Additional testing (lab, imaging, etc) may be ? necessary when evaluating a patient with possible respiratory ? tract infection.The FilmArray RP assay is FDA cleared for STAVE LOG RIPSAW OPERATOR ? swabs. ??Additional sample types have been validated according to ? CLIA regulations. ??The performance characteristics of this assay ? have been determined by [facility] ? [facility].Current interpretive data was last revised on 2013. ? us Historical Provider MD [facility] MICROBIOLOGY - GENERA L ORDERABLES Final Result HISTORICAL RESULTS documented in this encounter Visit Diagnoses Diagnosis Moderate persistent asthma with status asthmaticus Unspecified asthma, with status asthmaticus Acute upper respiratory infection Acute upper respiratory infections of unspecified site Unspecified enterovirus as the cause of diseases classified elsewhere Obesity Obesity, unspecified Pediatric body mass index (BMI) of greater than or equal to 95th percentile for age Dietary counseling and surveillance Allergy status to penicillin Other nonmedicinal substance allergy status documented in this encounter
--- OUTSIDE RECORDS SUMMARY | 2024-08-28 02:16 | XMS_ITS | Encounter Summary ---
Author Organization [facility] Address [address] [place] [phone] Phone Care Team Providers Care Golf Cart Maker Name Role Phone Jhonna Tinajero MD Primary Care Provider + Johnna Tinajero MD Unavailable [phone] Reason for Visit * Reason Comments Follow-up CYST AND ABDOMINAL P AIN Encounter Details Date Type Department Care Team (Late st Contact Info) Description 08/02/2019 1:45 PM SALES ACCOUNT MANAGER Office Visit [facility] [address] [place] [address] Johnna Tinajero MD [address] [place] [id number] Nausea (Primary Dx); Acute abdominal pain Social History Tobacco Use Types Packs/Day Years Used Date Smoking Tobacco: Never PHQ-2 Answer Date Recorded PHQ-2 Score 4 06/28/2019 Comments No Sex and Gender Information Value Date Recorded Sex Assigned at Not on file Legal Sex 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 SALES ACCOUNT MANAGER Gender Identity Not on file Sexual Orientation Not on file documented as of this encounter Last Filed Vital Signs Vital Sign Reading Time Taken Comments Blood Pressure 128/80 08/02/2019 1:51 PM SALES ACCOUNT MANAGER Pulse - - Temperature 36.7 ??C (98 ??F) 08/02/2019 1:51 PM SALES ACCOUNT MANAGER Respiratory Rate - - Oxygen Saturation - - Inhaled Oxygen Concentration - - Weight 103.5 kg (228 lb 3.2 oz) 08/02/2019 1:51 PM SALES ACCOUNT MANAGER Height - - Body Mass Index - - documented in this encounter Ordered Prescriptions Prescription Sig Dispense Quantity Refills Last Filled Start Date End Date ondansetron ODT (ZOFRAN-ODT) 4 mg disintegrating tabletIndications:Na usea Take 1 tablet (4 mg total) by mouth every 6 (six) hours as needed for nausea or vomiting 20 tablet 08/02/2019 9 omeprazole (PriLOSEC) 20 mg capsuleIndications:N ausea Take 1 capsule (20 mg total) by mouth daily 30 capsule 08/02/2019 9 documented in this encounter Progress Notes * Johnna Tinajero MD - 08/02/2019 1:45 PM CST 08/02/2019 HISTORY OF PRESENT ILLNESS (with pertinent ROS) Nina Coyne is a 19 y.o. female who presents with mother Chief Complaint Patient presents with ??? Follow-up CYST AND ABDOMINAL PAIN HPI: Follow up abdominal pain and persistent nausea s/p hospttalization 07/19 for RLQ abdominal pain. RLQ pain has gradually subsided but not completely gone , was at 4/10 and was able to eat a little. Tuesday 07/31 woke with More pain, 6/10 and nausea persists, taking the zofran twice daily; morning and afternoon. eating makes her more nauseated. No vomiting. BMs have been normal, daily, soft, doesnot relieve the symptoms. The pain is still in RLQ, not at all positional. Not waking with pain or nausea. Taking the Celexa just before bed. Is urinating normally. LMP started yesterday. No respiratory symptoms. Has been going to school this week. Last week went to school one day which was difficult but ok this week. Last dose Torodol.was Thursday, did get that scheduled in the hospital and went home on it as well. Last ibuprofen was three days ago. Is now taking Tylenol as needed but not scheduled. One XS Review of Symptoms: All review of systems are negative except for as in problem list Says she is doing well on the Celexa despite recent hospitlization. PHYSICAL EXAM Vitals: 08/02/19 1351 BP: 128/80 Temp: 36.7 ??C (98 ??F) Weight: 103.5 kg (228 lb 3.2 oz) Constitutional: Pt appears well-developed and well-nourished, active, NAD and non-toxic appearance.Weight is down just a bit, not dehydrated appearing. HEENT: Eyes: Scleral injection: no; Eye Discharge: [...] brisk. No rash noted. ASSESSMENT/PLAN: 1. Nausea I think the cause is all the NSAIDs she has been taking until recently. Start Prilosec and take daily for two weeks then wean to every other day till gone. Prn Zofran but call if not improved in one week continue celexa - omeprazole (PriLOSEC) 20 mg capsule; Take 1 capsule (20 mg total) by mouth daily Dispense: 30 capsule; Refill: 0 - ondansetron ODT (ZOFRAN-ODT) 4 mg disintegrating tablet; Take 1 tablet (4 mg total) by mouth every 6 (six) hours as needed for nausea or vomiting Dispense: 20 tablet; Refill: 0 2. Acute abdominal pain Resolving, etiology is still unclear to me. Keep case worker appt 08/16. Parent/patient instructed to call with concerns, if not improving in 7 days or new symptoms/problems develop. Johnna Tinajero MD S ACCOUNT MANAGER documented in this encounter Miscellaneous Notes * Addendum Note - Aileen Camargo - 08/02/2019 1:45 PM CSTAddended by: AILEEN CAMARGO on: 08/02/2019 04:10 PM Modules accepted: Orders S ACCOUNT MANAGER documented in this encounter Plan of Treatment Not on file documented as of this encounter Procedures Procedure Name Priority Date/Time Associated Diagnosis Comments POCT URINALYSIS NON AUTO Routine 08/02/2019 4:09 PM SALES ACCOUNT MANAGER Acute abdominal pain documented in this encounter Results * (ABNORMAL) POCT URINALYSIS NON AUTO (08/02/2019 4:09 PM SALES ACCOUNT MANAGER) Color, Urine, POC Lupe Clarity, ur, POC Clear Clear Glucose, ur, POC Negative Negative mg/dL Bilirubin, ur, POC Negative Negative, Small, Moderate, Large Ketones, ur, POC Negative Negative Specific [place], POC 1.030 1.005 - 1.030 Blood, ur, POC Negative Negative pH, ur, POC 5.0 5.0 - 8.0 Protein, ur, POC Trace(A) Negative Urobilinogen, Urine, POC Comment:NORMAL Leukocytes, ur, POC Negative Negative Nitrite, ur, POC Negative Negative Appearance, fld Clear Clear Urine, clean voided 08/02/2019 4:09 PM SALES ACCOUNT MANAGER Result [facility] Johnna Tinajero MD POINT OF CARE TEST ORDER KATHERINE Final Result documented in this encounter Visit Diagnoses Diagnosis Nausea- Primary Nausea alone Acute abdominal pain Abdominal pain, unspecified site documented in this encounter Discontinued Medications Medication Sig Discontinue Reason Start Date End Da te ondansetron ODT (ZOFRAN-ODT) 4 mg disintegrating tablet Take 1 tablet (4 mg total) by mouth every 6 (six) hours as needed for nausea or vomiting Reorder 07/23/2019 08/02/2019 ketorolac (TORADOL) 10 mg tablet Take 1 tablet (10 mg total) by mouth every 6 (six) hours as needed for pain Therapy completed 07/22/2019 08/02/2019 documented as of this encounter Care Teams Golf Cart Maker Relationship Specialty Start Date End Date Johnna Tinajero MD [address] [address] PCP - General Pediatrics 07/19/19 01/26/23 Johnna Tinajero MD [address] [address] 07/19/19 documented as of this encounter
--- OUTSIDE RECORDS SUMMARY | 2024-08-28 02:16 | XMS_ITS | Encounter Summary ---
Author Organization [facility] Facility Care Team Providers Care Mailing Clerk Name Role Phone Unavailable Primary Care Provider Unavailabl e Encounter Details Date Type Department Care Team (Late st Contact Info) Description 05/17/2014 5:52 AM CDT - 05/18/2014 1:00 PM CDT Hospital [facility] Johnna Hoffman MD [address] [place] [address] Asthma with exacerbation; Allergic rhinitis; Personal history of allergy to penicillin Social History Tobacco Use Types Packs/Day Years Used Date Smoking Tobacco: Never Assessed Comments Unknown Sex and Gender Information Value Date Recorded Sex Assigned at Not on file Legal Sex 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 Gender Identity Not on file Sexual Orientation Not on file documented as of this encounter Last Filed Vital Signs Vital Sign Reading Time Taken Comments Blood Pressure 108/66 05/18/2014 8:05 AM CDT Pulse 78 05/18/2014 10:01 AM CDT Temperature - - Respiratory Rate - - Oxygen Saturation 99% 05/18/2014 10:01 AM CDT Inhaled Oxygen Concentration - - Weight 86 kg (189 lb 9.5 oz) 05/17/2014 5:52 AM CDT Height 160 cm (5' 2.99 ) 05/17/2014 5:52 AM CDT Body Mass Index 33.59 05/17/2014 5:52 AM CDT Body Mass Index Percentile 99.41% 05/17/2014 5:5 2 AM CDT Growth Chart: [facility] (Girls, 2- 20 Years) documented in this encounter Plan of Treatment Not on file documented as of this encounter Procedures Procedure Name Priority Date/Time Associated Diagnosis Comments DISCHARGE LABORATORY CUMULATIVE REPORT Routine 05/18/2014 12:00 AM CDT RESPIRATORY PATHOGEN MULTIPLEX PCR, CDR Routine 05/17/2014 12:51 AM CDT ALL MICROBIOLOGY REPORT SECTION Routine 05/17/2014 12:00 AM CDT documented in this encounter Results * Discharge Laboratory Cumulative Report (05/18/2014 12:00 AM CDT) 05/18/2014 Narrative HISTORICAL RESULTS - 05/19/2014 7:33 AM CDT ? [facility] ?Clinical Laboratories ? [address] ? [place] [address] Patient [facility]: ? [facility] Rec Number: ?? [id number] Fin Number: ? [id number] Date: ? 2000 Sex/Age: ?Female 14 years Admit Date: ? 05/17/2014 Discharge Date: ?? 05/18/2014 Doctor: ? Johnna Tinajero Referring Doctor: None, Referring Facility: ? [facility] Location: ? 8W 8W25 B Chart Printed: ?05/19/2014 07:33 ?* Abnormal ??C Critical ??f Footnote ??^ Corrected ??L Low ??H High ? i Interp Data ??@ Ref Lab ?Chart Type:Cumulative ? VIROLOGY ? PROCEDURE: Respiratory Pathogen Multiplex PCR ?SOURCE: Nasopharyngeal COLLECTED: 05/17/14 ??0051 ? BODY SITE: STARTED: 05/17/14 ??0058 FREE TEXT SOURCE: FINAL REPORT REPORTED: 05/17/14 0348 Respiratory Pathogen nucleic acids NOT DETECTED (NEGATIVE) * * * ??Interpretive Results ??* * * (1)The [employer] (formerly known as [employer]) FilmArray Respiratory Panel (RP) assay is a [...] due to cross-reactivity or may indicate a co-infection.A version of the FilmArray RP assay updated to include an additional adenovirus assay was approved by the FDA in October,. ??The updated version has demonstrated improved detection of adenoviruses relative to the previous version. ??All of the other assays for the 20 targets are unchanged. ??The detection and identification of specific viral and [...] infection with pathogens that are not ? VIROLOGY ? PROCEDURE: Respiratory Pathogen Multiplex PCR ?SOURCE: Nasopharyngeal COLLECTED: 05/17/14 ??0051 ? BODY SITE: STARTED: 05/17/14 ??0058 FREE TEXT SOURCE: detected by this test. ??Positive results do not rule out infection/co-infection with other organisms. ??The agent(s) detected by the FilmArray RP may not be the definite cause of disease. ??Additional testing (lab, imaging, etc) may be necessary when evaluating a patient with possible respiratory tract infection.The FilmArray RP assay is FDA cleared for WOOD CAR BUILDER swabs. ??Additional sample types have been validated according to CLIA regulations. ??The performance characteristics of this assay have been determined by [facility].Current interpretive data was last revised on 2013. us Historical Provider LAB BLOOD ORDERABLES Neris rick Result HISTORICAL RESULTS * Respiratory Pathogen Multiplex PCR (05/17/2014 12:51 AM CDT) Nasopharyngeal (Unknown) 05/17/2014 12:51 AM CDT 05/17/2014 12:58 AM CDT Impressions HISTORICAL RESULTS - 05/17/2014 3:48 AM CDT [employer] (formerly known as [employer] FilmArray Respiratory Panel (RP) assay is a [...] FilmArray RP assay is FDA cleared for WOOD CAR BUILDER swabs. ??Additional sample types have been validated according to CLIA regulations. ??The performance characteristics of this assay have been determined by [facility]. Current interpretive data was last revised on 2013. Narrative HISTORICAL RESULTS - 05/17/2014 3:48 AM CDT Respiratory Pathogen nucleic acids NOT DETECTED (NEGATIVE) us Historical Provider MD LAB MICROBIOLOGY - GENERA L ORDERABLES Final Result HISTORICAL RESULTS * All Microbiology Report Section (05/17/2014 12:00 AM CDT) 05/17/2014 Narrative HISTORICAL RESULTS - 05/17/2014 6:30 AM CDT ?[facility] ? Clinical Laboratories ?[address] ?[place] [address] ? Patient Name: ? NINA BAUTISTA ? Med Rec Number: ? [id number] ? Fin Number: ? [id number] ? Date: ? 2000 ? Sex/Age: ?Female 14 years ? Admit Date: ? 05/16/2014 ? Discharge Date: ? Doctor: ? Johnna Tinajero ? Facility: ? [facility] ? Location: ? 8W 8W25 B ? * Abnormal ??C Critical ??f Footnote ??^ Corrected ??L Low ??H High ?i Interp Data ??@ Ref Lab ? Chart Type: Cumulative ?* * * * MICROBIOLOGY - VIROLOGY * * * * ?PROCEDURE: Respiratory Pathogen Multiplex PCR ? SOURCE: Nasopharyngeal ? COLLECTED: 05/17/ ??0051 ?BODY SITE: ? STARTED: 05/17/14 ??0058 ? FREE TEXT SOURCE: ? FINAL REPORT ? REPORTED: 05/17/14 0348 ? Respiratory Pathogen nucleic acids NOT DETECTED (NEGATIVE) ?* * * ??Interpretive Results ??* * * ? (1)[employer] (formerly known [employer] ? FilmArray Respiratory Panel (RP) assay is [...] FilmArray RP assay is FDA cleared for WOOD CAR BUILDER ? swabs. ??Additional sample types have been validated according to ? CLIA regulations. ??The performance characteristics of this assay ? have been determined by [facility] Virology ? Lab.Current interpretive data was last revised on 2013. ? us Historical Provider LAB MICROBIOLOGY - GENERA L ORDERABLES Final Result HISTORICAL RESULTS documented in this encounter Visit Diagnoses Diagnosis Asthma with exacerbation Unspecified asthma, with exacerbation Allergic rhinitis Allergic rhinitis, cause unspecified Personal history of allergy to penicillin documented in this encounter
--- OUTSIDE RECORDS SUMMARY | 2024-08-28 02:16 | XMS_ITS | Encounter Summary ---
Author Organization [facility] Address [address] [place] [address] Care Team Providers Care Collar Trimmer Name Role Phone Johnna Tinajero MD Primary Care Provider + Reason for Referral * Diagnostic Imaging (Routine) - Closed Specialty Diagnoses / Procedures Referred By Contac t Referred To Contact Diagnoses Acute right lower quadrant pain Procedures US Pelvis Complete Cecilia Owen MD Phone: tel: fax: [address] [phone] Referral ID Status Reason Start Date Expiration Date Visits Re quested Visits Authorized [id number] Closed 02/17/2018 08/29/2019 1 1 * Diagnostic Imaging (Routine) - Closed Specialty Diagnoses / Procedures Referred By Contac t Referred To Contact Diagnoses Acute right lower quadrant pain Procedures US Appendix Cecilia Owen MD Phone: tel: fax: [address] [phone] Referral ID Status Reason Start Date Expiration Date Visits Re quested Visits Authorized [id number] Closed 02/17/2018 08/29/2019 1 1 Reason for Visit * Diagnostic Imaging (Routine) - Closed Specialty Diagnoses / Procedures Referred By Contac t Referred To Contact Diagnoses Acute right lower quadrant pain Procedures US Appendix Cecilia Owen MD Phone: tel: fax: [facility] [address] [place] [address] Referral ID Status Reason Start Date Expiration Date Visits Re quested Visits Authorized [id number] Closed 02/17/2018 08/29/2019 1 1 Encounter Details Date Type Department Care Team (Latest Contact Info) Description 02/17/2018 12:13 PM CDT - 02/17/2018 11:59 PM CDT Hospital Encounter [facility] [place] [address] Cecilia Owen MD [address] [id number] Acute right lower quadrant pain Discharge Disposition: Discharge to home or self care Social History Tobacco Use Types Packs/Day Years Used Date Smoking Tobacco: Never Comments Unknown Sex and Gender Information Value Date Recorded Sex Assigned at Not on file Legal Sex 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 12/19/2016 9 fluticasone (FLONASE) 50 mcg/actuation nasal spray Administer 2 sprays into each nostril. 10/05/2017 9 fluticasone propionate (FLONASE) 50 mcg/actuation nasal spray Administer 2 sprays into each nostril daily 10/05/2017 0 fluticasone-marisol nterol (BREO ELLIPTA) 100-25 mcg/dose diskus inhaler Inhale 1 puff daily. 09/04/2016 0 montelukast (SINGULAIR) 10 mg tablet Take 10 mg by mouth daily. 8 PROAIR HFA 90 mcg/actuation inhaler Inhale 2 puffs every 4 (four) hours as needed. 0 02/12/2018 9 documented as of this encounter Discharge Disposition Disposition Code Departure Means Destination Discharge to home or self care documented in this encounter Plan of Treatment Not on file documented as of this encounter Procedures Procedure Name Priority Date/Time Associated Diagnosis Comments US PELVIS COMPLETE Schedule PETRA, Read PETRA (Appt Today, Awaiting Results) 02/17/2018 1:04 PM CDT Acute right lower quadrant pain US APPENDIX Schedule PETRA, Read PETRA (Appt Today, Awaiting Results) 02/17/2018 1:04 PM CDT Acute right lower quadrant pain documented in this encounter Results * US Pelvis Complete (02/17/2018 1:04 PM CDT) Anatomical Region Laterality Modality Pelvis N/A Ultrasound 02/17/2018 1:18 PM CDT Impressions 02/17/2018 1:18 PM CDT Normal pelvic sonogram. Appendix not visualized. ??No secondary signs of appendicitis. Electronically signed by: Mitzy To M.D. Narrative 02/17/2018 1:18 PM CDT EXAMINATION: ??US APPENDIX, US PELVIS COMPLETE HISTORY: ??Abdominal pain.. COMPARISON: ??None. FINDINGS: The uterus is normal in configuration and size. ??The endometrial stripe measures 2 mm. ??The left ovary measures 1.6 x 2.2 x 2.4 cm for a volume of 4.4 cc. ??The right ovary measures 1.6 x 2.4 x 2.8 cm for a volume of 5.8 cc. ??There is symmetric flow. There are no dominant cysts or masses. Small follicles are noted bilaterally. Evaluation of the right lower quadrant shows normally peristalsing bowel loops. ??The appendix was not visualized. ??There is no fluid collection or evidence of ascites. ??No lymph nodes are seen. Procedure Note CarlitoSherly Gray MD - 02/17/2018 EXAMINATION: US APPENDIX, US PELVIS COMPLETE HISTORY: Abdominal pain.. COMPARISON: None. FINDINGS: The uterus is normal in configuration and size. The endometrial stripe measures 2 mm. The left ovary measures 1.6 x 2.2 x 2.4 cm for a volume of 4.4 cc. The right ovary measures 1.6 x 2.4 x 2.8 cm for a volume of 5.8 cc. There is symmetric flow. There are no dominant cysts or masses. Small follicles are noted bilaterally. Evaluation of the right lower quadrant shows normally peristalsing bowel loops. The appendix was not visualized. There is no fluid collection or evidence of ascites. No lymph nodes are seen. IMPRESSION: Normal pelvic sonogram. Appendix not visualized. No secondary signs of appendicitis. Electronically signed by: Mitzy To M.D. us Cecilia Owen MD IMG US PROCEDURES Final Result * US Appendix (02/17/2018 1:04 PM CDT) Anatomical Region Laterality Modality Abdomen N/A Ultrasound 02/17/2018 1:18 PM CDT Impressions 02/17/2018 1:18 PM CDT Normal pelvic sonogram. Appendix not visualized. ??No secondary signs of appendicitis. Electronically signed by: Mitzy To M.D. Narrative 02/17/2018 1:18 PM CDT EXAMINATION: ??US APPENDIX, US PELVIS COMPLETE HISTORY: ??Abdominal pain.. COMPARISON: ??None. FINDINGS: The uterus is normal in configuration and size. ??The endometrial stripe measures 2 mm. ??The left ovary measures 1.6 x 2.2 x 2.4 cm for a volume of 4.4 cc. ??The right ovary measures 1.6 x 2.4 x 2.8 cm for a volume of 5.8 cc. ??There is symmetric flow. There are no dominant cysts or masses. Small follicles are noted bilaterally. Evaluation of the right lower quadrant shows normally peristalsing bowel loops. ??The appendix was not visualized. ??There is no fluid collection or evidence of ascites. ??No lymph nodes are seen. Procedure Note Sherly To MD - 02/17/2018 EXAMINATION: US APPENDIX, US PELVIS COMPLETE HISTORY: Abdominal pain.. COMPARISON: None. FINDINGS: The uterus is normal in configuration and size. The endometrial stripe measures 2 mm. The left ovary measures 1.6 x 2.2 x 2.4 cm for a volume of 4.4 cc. The right ovary measures 1.6 x 2.4 x 2.8 cm for a volume of 5.8 cc. There is symmetric flow. There are no dominant cysts or masses. Small follicles are noted bilaterally. Evaluation of the right lower quadrant shows normally peristalsing bowel loops. The appendix was not visualized. There is no fluid collection or evidence of ascites. No lymph nodes are seen. IMPRESSION: Normal pelvic sonogram. Appendix not visualized. No secondary signs of appendicitis. Electronically signed by: Mitzy To M.D. us Cecilia Owen MD IMG US PROCEDURES Final Result documented in this encounter Visit Diagnoses Diagnosis Acute right lower quadrant pain documented in this encounter Care Teams Collar Trimmer Relationship Specialty Start Date End Date Johnna Tinajero MD [address] [place] [address] PCP - General 12/17/16 07/18/19 documented as of this encounter
--- OUTSIDE RECORDS SUMMARY | 2024-08-28 02:16 | XMS_ITS | Encounter Summary ---
Author Organization [facility] Address [address] [facility] [address] [place] [address] Phone Care Team Providers Care Screener Perfumer Name Role Phone Johnna Tinajero MD Primary Care Provider + Johnna Tinajero MD Unavailable [phone] Reason for Referral * (Routine) - Closed Specialty Diagnoses / Procedures Referred By [place] Referred To Contact Diagnoses Encounter for routine child health examination with abnormal findings Fatigue, unspecified type Nausea Obesity without serious comorbidity with body mass index (BMI) greater than 99th percentile for age in pediatric patient, unspecified obesity type Procedures ECG 12 lead Johnna Tinajero MD [address] [facility] [address] [place] [address] Phone: tel: fax: [facility] (All Locations) Referral ID Status Reason Start Date Expiration Date Visits Re quested Visits Authorized [id number] Closed 08/16/2019 02/24/2021 1 1 IER AND SALESPERSON Reason for Visit * (Routine) - Closed Specialty Diagnoses / Procedures Referred By Contac t Referred To Contact Diagnoses Encounter for routine child health examination with abnormal findings Fatigue, unspecified type Nausea Obesity without serious comorbidity with body mass index (BMI) greater than 99th percentile for age in pediatric patient, unspecified obesity type Procedures ECG 12 lead Johnna Tinajero MD [address] [facility] [address] [place] [address] Phone: tel: fax: [facility] (All Locations) Referral ID Status Reason Start Date Expiration Date Visits Re quested Visits Authorized [id number] Closed 08/16/2019 02/24/2021 1 1 Encounter Details Date Type Department Care Team (Latest Contact Info) Description 08/25/2019 12:18 PM CASHIER AND SALESPERSON - 08/25/2019 11:59 PM CASHIER AND SALESPERSON Hospital Encounter [facility] Pediatric Cardiology [address] [facility] [address] [place] [address] Encounter for routine child health examination with abnormal findings; Fatigue, unspecified type; Nausea; Obesity without serious comorbidity with body mass index (BMI) greater than 99th percentile for age in pediatric patient, unspecified obesity type Discharge Disposition: Discharge to home or self care Social History Tobacco Use Types Packs/Day Years Used Date Smoking Tobacco: Never PHQ-2 Answer Date Recorded PHQ-2 Score 4 06/28/2019 Comments No Sex and Gender Information Value Date Recorded Sex Assigned at Not on file Legal Sex 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 CASHIER AND SALESPERSON Gender Identity Not on file Sexual Orientation Not on file documented as of this encounter Medications at Time of Discharge albuterol HFA (PROVENTIL HFA,VENTOLIN HFA,PROAIR HFA) 90 mcg/actuation inhaler Inhale 2 puffs every 6 (six) hours as needed for wheezing or shortness of breath norgestimate-ethiny l estradiol (ORTHO TRI-CYCLEN LO) 0.18/0.215/0.25 mg-25 mcg per tablet Take 1 tablet by mouth daily 0 9 albuterol (PROVENTIL,VENTOLIN ) 1.25 mg/3 mL nebulizer solution Take 1.25 mg by nebulization every 4 (four) hours as needed for wheezing or shortness of breath 08/21/20 20 citalopram (CeleXA) 10 mg tablet Take 1 tablet (10 mg total) by mouth daily for 7 days 7 tablet 9 09/02/19 20 escitalopram (Lexapro) 10 mg tablet Take 1 10 mg tablet daily for 7 days after finishing last day of Celexa. 7 tablet 9 08/26/20 19 fluticasone propionate (FLONASE) 50 mcg/actuation nasal spray Administer 2 sprays into each nostril daily 8 09/13/19 20 fluticasone-vilante rol (BREO ELLIPTA) 100-25 mcg/dose diskus inhaler Inhale 1 puff daily. 7 09/02/19 20 omeprazole (PriLOSEC) 20 mg capsuleIndications: Treatment of Non-Bleeding Gastric Disorder Take 1 capsule (20 mg total) by mouth 2 (two) times a day 60 capsule 1 9 09/20/19 20 ondansetron ODT (ZOFRAN-ODT) 4 mg disintegrating tabletIndications:N ausea Take 1 tablet (4 mg total) by mouth every 6 (six) hours as needed for nausea or vomiting 20 tablet 9 09/05/19 20 documented as of this encounter Discharge Disposition Disposition Code Departure Means Destination Discharge to home or self care documented in this encounter Plan of Treatment Not on file documented as of this encounter Procedures Procedure Name Priority Date/Time Associated Diagnosis Comments ECG 12-LEAD Routine 08/25/2019 12:27 PM CASHIER AND SALESPERSON Encounter for routine child health examination with abnormal findings Fatigue, unspecified type Nausea Obesity without serious comorbidity with body mass index (BMI) greater than 99th percentile for age in pediatric patient, unspecified obesity type documented in this encounter Results * ECG 12 lead (08/25/2019 12:27 PM CASHIER AND SALESPERSON) Ventricular Rate EKG/Min 69 BPM [facility] Atrial Rate 69 BPM [facility] AR-Interval (MSEC) 138 ms [facility] QRS-Interval (MSEC) 78 ms [facility] QT-Interval (MSEC) 380 ms [facility] QTc 412 ms [facility] P [place] 30 degrees [facility] R [place] 9 degrees [facility] T [place] 7 degrees [facility] Diagnosis Normal sinus rhythm with sinus arrhythmia with short AR When compared with ECG of 23-JAN-2017 10:14, patient is now in sinus rhythm Otherwise normal ECG Confirmed by MD NISHA, FELICE ([id number]) on 08/26/2019 6:11:28 AM [facility] 08/25/2019 12:2 4 PM CASHIER AND SALESPERSON 08/26/2019 6:11 AM CASHIER AND SALESPERSON us Johnna Tinajero MD ECG ORDERABLES Final Re sult [facility] documented in this encounter Visit Diagnoses Diagnosis Encounter for routine child health examination with abnormal findings Fatigue, unspecified type Nausea Nausea alone Obesity without serious comorbidity with body mass index (BMI) greater than 99th percentile for age in pediatric patient, unspecified obesity type documented in this encounter Care Teams Screener Perfumer Relationship Specialty Start Date End Date Johnna Tinajero MD [address] [address] PCP - General Pediatrics 07/19/19 01/26/23 Johnna Tinajero MD [address] [facility] [address] [place] [address] 07/19/19 documented as of this encounter
--- OUTSIDE RECORDS SUMMARY | 2024-08-28 02:16 | XMS_ITS | Encounter Summary ---
Author Organization [facility] Address [address] [place] [address] [address] [place] [address] Phone Care Team Providers Care Contact Center Team Lead Name Role Phone Johnna Tinajero MD Primary Care Provider + Johnna Tinajero MD Unavailable [phone] Encounter Details Date Type Department Care Team (Late st Contact Info) Description 07/26/2019 Telephone [facility] [facility] [address] [place] [address] Johnna Tinajero MD [address] [place] [address] Social History Tobacco Use Types Packs/Day Years Used Date Smoking Tobacco: Never PHQ-2 Answer Date Recorded PHQ-2 Score 4 06/28/2019 Comments No Sex and Gender Information Value Date Recorded Sex Assigned at Not on file Legal Sex 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 LAY OUT MAKER Gender Identity Not on file Sexual Orientation Not on file documented as of this encounter Miscellaneous Notes * Telephone Encounter - Basilia Dillard RN - 07/26/2019 4:53 PM LAY OUT MAKER PC from mom, Nina was able to go to school yesterday, but was having constant and severe pain throughout the day. They have kept home today as pain is still high, Nina describes it as 5/10. Mom requesting note for school for today. Mom called back after 1:00p to inform us that she checked on Nina and pain seems to be subsiding abit. Advised mom to continue to apply heat, take Toradol and Tylenol as directed and reach back outto us if they think pain not being controlled and we can look into initiating treatment with pain management clinic. Mom agrees, will CB as needed. OUT MAKER documented in this encounter Plan of Treatment Not on file documented as of this encounter Visit Diagnoses Not on filedocumented in this encounter Care Teams Contact Center Team Lead Relationship Specialty Start Date End Date Johnna Tinajero MD [address] [address] PCP - General Pediatrics 07/19/19 01/26/23 Johnna Tinajero MD [address] [address] 07/19/19 documented as of this encounter
--- OUTSIDE RECORDS SUMMARY | 2024-08-28 02:16 | XMS_ITS | Encounter Summary ---
Author Organization [facility] Address [address] [place] [address] Phone Care Team Providers Care Warehouse Material Handler Name Role Phone Johnna Tinajero MD Primary Care Provider + Johnna Tinajero MD Unavailable [phone] Encounter Details Date Type Department Care Team (Late st Contact Info) Description 08/18/2019 Telephone [facility] Pediatric Gastroenterology [address] [facility] [address] [place] [address] Nehemiah Zhao MD [address] [facility] [address] [place] [address] Social History Tobacco Use Types Packs/Day Years Used Date Smoking Tobacco: Never PHQ-2 Answer Date Recorded PHQ-2 Score 4 06/28/2019 Comments No Sex and Gender Information Value Date Recorded Sex Assigned at Not on file Legal Sex 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 PRINCIPAL LAW CLERK Gender Identity Not on file Sexual Orientation Not on file documented as of this encounter Miscellaneous Notes * Telephone Encounter - Leonor Mccarthy RN - 08/18/2019 3:40 PM PRINCIPAL LAW CLERK Spoke to mom. Will get CBC at [facility]. They restarted Omeprazole. Weaning Celexa and will start Lexapro Thursday. She is still having nausea. Mom says she is not improved. Give PPI some time since stopped and then restarted. Her abdominal pain level is a 4. CIPAL LAW CLERK * Telephone Encounter - Leonor Mccarthy RN - 08/18/2019 11:30 AM PRINCIPAL LAW CLERK LM to call back for update and to arrange repeat CBC. CIPAL LAW CLERK * Telephone Encounter - Leonor Mccarthy RN - 08/18/2019 11:30 AM PRINCIPAL LAW CLERK ----- Message from Nehemiah Zhao MD sent at 08/15/2019 5:00 PM PRINCIPAL LAW CLERK ----- Please call to get update on status on or Thursday and arrange to have repeat cbc obtained on Thursday or Thursday. Can be done locally so long as we can get results. Let me know if questions. CIPAL LAW CLERK documented in this encounter Plan of Treatment Not on file documented as of this encounter Visit Diagnoses Not on filedocumented in this encounter Care Teams Warehouse Material Handler Relationship Specialty Start Date End Date Johnna Tinajero MD [address] [address] PCP - General Pediatrics 07/19/19 01/26/23 Johnna Tinajero MD [address] [address] 07/19/19 documented as of this encounter
--- OUTSIDE RECORDS SUMMARY | 2024-08-28 02:16 | XMS_ITS | Encounter Summary ---
Author Organization [facility] Care Team Providers Care Clinical Transformation Specialist Name Role Phone Unavailable Primary Care Provider Unavailabl e Encounter Details Date Type Department Care Team (Late st Contact Info) Description 02/09/2015 1:28 PM CDT - 02/09/2015 11:59 PM CDT Hospital Encounter [facility] Lila Stovall MD [address] [place] [address] Other and unspecified ovarian cyst Social History Tobacco Use Types Packs/Day Years Used Date Smoking Tobacco: Never Assessed Comments Unknown Sex and Gender Information Value Date Recorded Sex Assigned at Not on file Legal Sex 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 DRESS CAP MAKER Gender Identity Not on file Sexual Orientation Not on file documented as of this encounter Plan of Treatment Not on file documented as of this encounter Procedures Procedure Name Priority Date/Time Associated Diagnosis Comments US PELVIS COMPLETE Routine 02/09/2015 2: 13 PM CDT US ABDOMEN COMPLETE Routine 02/09/2015 2 :13 PM CDT documented in this encounter Results * US Pelvis Complete (02/09/2015 2:13 PM CDT) Anatomical Region Laterality Modality Pelvis N/A Ultrasound 02/09/2015 2:13 PM CDT Narrative 02/09/2015 2:58 PM CDT DRAGAN HICKS M.D. CHRISTIE LAUREANO M.D. FINAL REPORT The radiology attending physician has personally reviewed this study, and has reviewed and/or edited this written report and agrees with it. ACC# ??Date Time ??Exam [id number] Feb 09, 2015 14:13:00 [id number] PELVIC SONO CMP [id number] Feb 09, 2015 14:13:00 [id number] SONO ABD COMPLT ACC# ??Date Time ??Exam [id number] Feb 09, 2015 14:13:00 [id number] PELVIC SONO CMP [id number] Feb 09, 2015 14:13:00 [id number] SONO ABD COMPLT EXAMINATION: ?Abdominal and Pelvic Sonogram COMPARISON: ??Pelvic sonogram on 01/01/2015. HISTORY: ??Hemorrhagic right ovarian cyst FINDINGS: The visualized portions of the pancreatic head, body, and tail are unremarkable. The liver is of normal architecture without focal masses or biliary ductal dilatation. The gall bladder is incompletely distended, and cannot be fully evaluated. The common bile duct measures 2 mm. The visualized portions of the aorta and IVC are normal. There is no splenomegaly. The right kidney measures 9.2 cm. This is within normal limits for the patient's age. There is no hydronephrosis. ??The renal architecture is normal. The left kidney measures 9.9 cm. This is within normal limits for the patient's age. There is no hydronephrosis. ??The renal architecture is normal. The bladder is unremarkable. The uterus is prepubertal in configuration/size. The right hemorrhagic and cyst is no longer seen on this examination. The right ovary measure 2.3 ??X 1.7 X 1.9 for a volume of 3.8 cc. The left ovary measure 2.5 X 1.7 X 1.4 for a volume of 3.2 cc. ??Color Doppler evaluation shows symmetrical flow. ?? IMPRESSION: Resolution of hemorrhagic right ovarian cyst, otherwise normal sonogram of the pelvis and abdomen. ?? Requested By: LILA STOVALL M.D. Dictated By: ?? CHRISTIE LAUREANO M.D. ??on Feb 09 2015 ??2:40P This document has been electronically signed by: DRAGAN HICKS M.D. on Feb 09 2015 ??2:58P Procedure Note Provider, MD Jesus - 01/01/2017 DRAGAN HICKS M.D. CHRISTIE LAUREANO M.D. FINAL REPORT The radiology attending physician has personally reviewed this study, and has reviewed and/or edited this written report and agrees with it. ACC# Date Time Exam [id number] Feb 09, 2015 14:13:00 [id number] PELVIC SONO CMP [id number] Feb 09, 2015 14:13:00 [id number] SONO ABD COMPLT ACC# Date Time Exam [id number] Feb 09, 2015 14:13:00 34577 PELVIC SONO CMP [id number] Feb 09, 2015 14:13:00 [id number] SONO ABD COMPLT EXAMINATION: Abdominal and Pelvic Sonogram COMPARISON: Pelvic sonogram on 01/01/2015. HISTORY: Hemorrhagic right ovarian cyst FINDINGS: The visualized portions of the pancreatic head, body, and tail are unremarkable. The liver is of normal architecture without focal masses or biliary ductal dilatation. The gall bladder is incompletely distended, and cannot be fully evaluated. The common bile duct measures 2 mm. The visualized portions of the aorta and IVC are normal. There is no splenomegaly. The right kidney measures 9.2 cm. This is within normal limits for the patient's age. There is no hydronephrosis. The renal architecture is normal. The left kidney measures 9.9 cm. This is within normal limits for the patient's age. There is no hydronephrosis. The renal architecture is normal. The bladder is unremarkable. The uterus is prepubertal in configuration/size. The right hemorrhagic and cyst is no longer seen on this examination. The right ovary measure 2.3 X 1.7 X 1.9 for a volume of 3.8 cc. The left ovary measure 2.5 X 1.7 X 1.4 for a volume of 3.2 cc. Color Doppler evaluation shows symmetrical flow. IMPRESSION: Resolution of hemorrhagic right ovarian cyst, otherwise normal sonogram of the pelvis and abdomen. Requested By: LILA STOVALL M.D. Dictated By: CHRISTIE LAUREANO M.D. on Feb 09 2015 2:40P This document has been electronically signed by: DRAGAN HICKS M.D. on Feb 09 2015 2:58P us Historical Provider MD IMG US PROCEDURES Final R esult * US Abdomen Complete (02/09/2015 2:13 PM CDT) Anatomical Region Laterality Modality Abdomen N/A Ultrasound 02/09/2015 2:13 PM CDT Narrative 02/09/2015 2:58 PM CDT DRAGAN HICKS M.D. CHRISTIE LAUREANO M.D. FINAL REPORT The radiology attending physician has personally reviewed this study, and has reviewed and/or edited this written report and agrees with it. ACC# ??Date Time ??Exam [id number] Feb 09, 2015 14:13:00 13062 PELVIC SONO CMP [id number] Feb 09, 2015 14:13:00 [id number] SONO ABD COMPLT ACC# ??Date Time ??Exam [id number] Feb 09, 2015 14:13:00 [id number] PELVIC SONO CMP [id number] Feb 09, 2015 14:13:00 [id number] SONO ABD COMPLT EXAMINATION: ?Abdominal and Pelvic Sonogram COMPARISON: ??Pelvic sonogram on 01/01/2015. HISTORY: ??Hemorrhagic right ovarian cyst FINDINGS: The visualized portions of the pancreatic head, body, and tail are unremarkable. The liver is of normal architecture without focal masses or biliary ductal dilatation. The gall bladder is incompletely distended, and cannot be fully evaluated. The common bile duct measures 2 mm. The visualized portions of the aorta and IVC are normal. There is no splenomegaly. The right kidney measures 9.2 cm. This is within normal limits for the patient's age. There is no hydronephrosis. ??The renal architecture is normal. The left kidney measures 9.9 cm. This is within normal limits for the patient's age. There is no hydronephrosis. ??The renal architecture is normal. The bladder is unremarkable. The uterus is prepubertal in configuration/size. The right hemorrhagic and cyst is no longer seen on this examination. The right ovary measure 2.3 ??X 1.7 X 1.9 for a volume of 3.8 cc. The left ovary measure 2.5 X 1.7 X 1.4 for a volume of 3.2 cc. ??Color Doppler evaluation shows symmetrical flow. ?? IMPRESSION: Resolution of hemorrhagic right ovarian cyst, otherwise normal sonogram of the pelvis and abdomen. ?? Requested By: LILA STOVALL M.D. Dictated By: ?? CHRISTIE LAUREANO M.D. ??on Feb 09 2015 ??2:40P This document has been electronically signed by: DRAGAN HICKS M.D. on Feb 09 2015 ??2:58P Procedure Note Provider, MD Jesus - 01/01/2017 DRAGAN HICKS M.D. CHRISTIE LAUREANO M.D. FINAL REPORT The radiology attending physician has personally reviewed this study, and has reviewed and/or edited this written report and agrees with it. ACC# Date Time Exam [id number] Feb 09, 2015 14:13:00 14053 PELVIC SONO CMP [id number] Feb 09, 2015 14:13:00 [id number] SONO ABD COMPLT ACC# Date Time Exam [id number] Feb 09, 2015 14:13:00 [id number] PELVIC SONO CMP [id number] Feb 09, 2015 14:13:00 [id number] SONO ABD COMPLT EXAMINATION: Abdominal and Pelvic Sonogram COMPARISON: Pelvic sonogram on 01/01/2015. HISTORY: Hemorrhagic right ovarian cyst FINDINGS: The visualized portions of the pancreatic head, body, and tail are unremarkable. The liver is of normal architecture without focal masses or biliary ductal dilatation. The gall bladder is incompletely distended, and cannot be fully evaluated. The common bile duct measures 2 mm. The visualized portions of the aorta and IVC are normal. There is no splenomegaly. The right kidney measures 9.2 cm. This is within normal limits for the patient's age. There is no hydronephrosis. The renal architecture is normal. The left kidney measures 9.9 cm. This is within normal limits for the patient's age. There is no hydronephrosis. The renal architecture is normal. The bladder is unremarkable. The uterus is prepubertal in configuration/size. The right hemorrhagic and cyst is no longer seen on this examination. The right ovary measure 2.3 X 1.7 X 1.9 for a volume of 3.8 cc. The left ovary measure 2.5 X 1.7 X 1.4 for a volume of 3.2 cc. Color Doppler evaluation shows symmetrical flow. IMPRESSION: Resolution of hemorrhagic right ovarian cyst, otherwise normal sonogram of the pelvis and abdomen. Requested By: LILA STOVALL M.D. Dictated By: CHRISTIE LAUREANO M.D. on Feb 09 2015 2:40P This document has been electronically signed by: DRAGAN HICKS M.D. on Feb 09 2015 2:58P us Historical Provider MD CARLISLE US PROCEDURES Final R esult documented in this encounter Visit Diagnoses Diagnosis Other and unspecified ovarian cyst documented in this encounter
--- OUTSIDE RECORDS SUMMARY | 2024-08-28 02:16 | XMS_ITS | Encounter Summary ---
Author Organization [facility] Address [address] [place] [address] Care Team Providers Care Information Systems Administrator Name Role Phone Johnna Tinajero MD Primary Care Provider + Encounter Details Date Type Department Care Team (Late st Contact Info) Description 12/19/2016 2:17 PM CDT - 12/19/2016 11:59 PM CDT Hospital Encounter [facility] [phone] Shola Gamble MD [address] [facility] [address] [place] [address] Discharge Disposition: Discharge to home or self care Social History Tobacco Use Types Packs/Day Years Used Date Smoking Tobacco: Never Comments Unknown Sex and Gender Information Value Date Recorded Sex Assigned at Not on file Legal Sex 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 INFORMATION ASSURANCE SPECIALIST Gender Identity Not on file Sexual [...] on filedocumented in this encounter Care Teams Information Systems Administrator Relationship Specialty Start Date End Date Johnna Tinajero MD [address] [address] PCP - General 12/17/16 07/18/19 documented as of this encounter
--- OUTSIDE RECORDS SUMMARY | 2024-08-28 02:16 | XMS_ITS | Encounter Summary ---
Author Organization [facility] Address [address] [place] [address] [address] [place] [address] Phone Care Team Providers Care Battery Tester And Repairer Name Role Phone Johnna Tinajero MD Primary Care Provider + Johnna Tinajero MD Unavailable Encounter Details Date Type Department Care Team (Late st Contact Info) Description 08/03/2019 Telephone [facility] [facility] [address] [place] [address] Johnna Tinajero MD [address] [place] [address] Social History Tobacco Use Types Packs/Day Years Used Date Smoking Tobacco: Never PHQ-2 Answer Date Recorded PHQ-2 Score 4 06/28/2019 Comments No Sex and Gender Information Value Date Recorded Sex Assigned at Not on file Legal Sex 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 PNEUMATIC DEICER INSPECTOR Gender Identity Not on file Sexual Orientation Not on file documented as of this encounter Miscellaneous Notes * Telephone Encounter - Basilia Dillard RN - 08/03/2019 3:58 PM PNEUMATIC DEICER INSPECTOR PC to pharmacy, script never received for increased Celexa dose so script verbally given to pharmacist at [facility]. They are filling now and will call mom when ready to parts picker. PC to mom to inform her of this, CB as needed. MATIC DEICER INSPECTOR documented in this encounter Plan of Treatment Not on file documented as of this encounter Visit Diagnoses Not on filedocumented in this encounter Care Teams Battery Tester And Repairer Relationship Specialty Start Date End Date Johnna Tinajero MD [address] [address] PCP - General Pediatrics 07/19/19 01/26/23 Johnna Tinajero MD [address] [address] 07/19/19 documented as of this encounter
--- OUTSIDE RECORDS SUMMARY | 2024-08-28 02:16 | XMS_ITS | Encounter Summary ---
Author Organization [facility] Facility Care Team Providers Care Residential Sales Rep Name Role Phone Unavailable Primary Care Provider Unavailabl e Encounter Details Date Type Department Care Team (Late st Contact Info) Description 09/07/2016 1:26 PM PROTECTIVE SERVICES SOCIAL WORKER - 09/07/2016 6:03 PM PROTECTIVE SERVICES SOCIAL WORKER Hospital Encounter [facility] Zena Forrester MD 1 [facility] [address] [place] [address] Carolee Mckee MD 1 [facility] [address] [facility] [address] [place] [address] Moderate persistent asthma with exacerbation Social History Tobacco Use Types Packs/Day Years Used Date Smoking Tobacco: Never Comments Unknown Sex and Gender Information Value Date Recorded Sex Assigned at Not on file Legal Sex 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 PROTECTIVE SERVICES SOCIAL WORKER Gender Identity Not on file Sexual Orientation Not on file documented as of this encounter Medications at Time of Discharge fluticasone-vilan terol (BREO ELLIPTA) 100-25 mcg/dose diskus inhaler Inhale 1 puff daily. 09/04/2016 09/02/2019 documented as of this encounter Plan of Treatment Not on file documented as of this encounter Visit Diagnoses Diagnosis Moderate persistent asthma with exacerbation Unspecified asthma, with exacerbation documented in this encounter
--- OUTSIDE RECORDS SUMMARY | 2024-08-28 02:16 | XMS_ITS | Encounter Summary ---
Author Organization [facility] Clinical [facility] Address [address] [facility] [address] [place] [address] Phone Care Team Providers Care Community Development Officer Name Role Phone Johnna Tinajero MD Primary Care Provider + Reason for Referral * Diagnostic Imaging (Routine) - Closed Specialty Diagnoses / Procedures Referred By Contac t Referred To Contact Diagnoses Acute right lower quadrant pain Procedures US Appendix Cecilia Owen MD Phone: tel: fax: [address] [phone] Referral ID Status Reason Start Date Expiration Date Visits Re quested Visits Authorized [id number] Closed 02/17/2018 08/29/2019 1 1 * Diagnostic Imaging (Routine) - Closed Specialty Diagnoses / Procedures Referred By Contac t Referred To Contact Diagnoses Acute right lower quadrant pain Procedures US Pelvis Complete Cecilia Owen MD Phone: tel: fax: [address] [phone] Referral ID Status Reason Start Date Expiration Date Visits Re quested Visits Authorized [id number] Closed 02/17/2018 08/29/2019 1 1 Reason for Visit * Reason Comments Abdominal Pain x 4 days Headache off and on x 4 days Encounter Details Date Type Department Care Team (Late st Contact Info) Description 02/17/2018 10:30 AM CDT Office Visit [facility] [address] [facility] [address] [place] [address] Cecilia Owen MD [address] [facility] [address] [place] [address] Acute right lower quadrant pain (Primary Dx) Social History Tobacco Use Types Packs/Day Years Used Date Smoking Tobacco: Never Comments Unknown Sex and Gender Information Value Date Recorded Sex Assigned at Not on file 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 Sex 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 female who presents with mother Chief Complaint Patient presents with ??? Abdominal Pain x 4 days ??? Headache off and on x 4 days HPI: Stomach ache in middle, sharp pains x 4 days. Worse when stands up, lies on stomach or eating. Was bad last night and couldn't sleep. Dec. Appetite, ate breakfast this am. Had little breakfast. No nausea or vomiting or diarrhea No fever or rash. Intermittent headache. No sick contacts. No URI sxs or sore throat. No dysuria or frequency. LMP 2 weeks ago; monthly x 4 days. Review of Symptoms: Review of systems per HPI and otherwise all other systems are negative PHYSICAL EXAM Vitals: 02/17/18 1027 BP: 122/90 Temp: 36.7 ??C (98.1 ??F) TempSrc: Oral Weight: 107.5 kg (237 lb) Physical Exam Constitutional: She is well-developed, well-nourished, and in no distress. HENT: Head: Normocephalic and atraumatic. Right Ear: Tympanic membrane normal. Left Ear: Tympanic membrane normal. Eyes: Conjunctivae are normal. Neck: Normal range of motion. Cardiovascular: Normal rate, regular rhythm and normal heart sounds. Pulmonary/Chest: Effort normal and breath sounds normal. Abdominal: Soft. Bowel sounds are normal. She exhibits no distension. There is tenderness in the right lower quadrant. There is tenderness at McBurney's point. There is no rebound, no guarding and noCVA tenderness. Obese unable to determine HSM Musculoskeletal: Normal range of motion. Neurological: She is alert. Skin: Skin is warm and dry. No rash noted. Results for orders placed or performed in visit on 02/17/18 POCT UA, AUTO W/O SCOPE Result Value Ref Range Color, Urine, POC Yellow Clarity, ur, POC Turbid (A) Clear Glucose, ur, POC Negative Negative mg/dL Bilirubin, ur, POC Negative Negative Ketones, ur, POC Negative Negative Specific [place], POC 1.030 1.005 - 1.030 Blood, ur, POC Negative Negative pH, ur, POC 5.0 5.0 - 8.0 Protein, ur, POC Negative Negative Urobilinogen, Urine, POC 0.2 mg/dL Leukocytes, ur, POC Negative Negative Nitrite, ur, POC Negative Negative Appearance, fld Clear Clear ASSESSMENT/PLAN: 1. Acute right lower quadrant pain US showed normal ovary, couldn't visualize appendix. Will treat like ruptured cyst; NSAIDS x 3 daysthen prn. If worsening sxs concerning for appendix will reeval within 48 hrs. [place] 2 [place]. - POCT UA, AUTO W/O SCOPE - POCT URINE CULTURE - US Pelvis Complete; Future - US Appendix; Future Parent/patient instructed to call with concerns, if not improving in 2 days or new symptoms/problems develop. Cecilia Owen MD documented in this encounter Plan of Treatment Not on file documented as of this encounter Procedures Procedure Name Priority Date/Time Associated Diagnosis Comments POCT URINE CULTURE Routine 02/18/2018 10 :43 AM CDT Acute right lower quadrant pain POCT URINALYSIS, AUTO W/O SCOPE Routine 02/17/2018 3:28 PM CDT Acute right lower quadrant pain documented in this encounter Results * (ABNORMAL) POCT URINE CULTURE (02/18/2018 10:43 AM CDT) Culture, POC 10,000 Comment:2 colonies - contami nated Urine 02/18/2018 10:4 3 AM CDT Cecilia Owen MD POINT OF CARE TEST ORDERABLES Final Result * (ABNORMAL) POCT UA, AUTO W/O SCOPE (02/17/2018 3:28 PM CDT) Color, Urine, POC Yellow Clarity, ur, POC Turbid(A) Clear Glucose, ur, POC Negative Negative mg/dL Bilirubin, ur, POC Negative Negative Ketones, ur, POC Negative Negative Specific [place], POC 1.030 1.005 - 1.030 Blood, ur, POC Negative Negative pH, ur, POC 5.0 5.0 - 8.0 Protein, ur, POC Negative Negative Urobilinogen, Urine, POC 0.2 mg/dL Leukocytes, ur, POC Negative Negative Nitrite, ur, POC Negative Negative Appearance, fld Clear Clear Urine 02/17/2018 3:28 PM CDT Cecilia Owen MD POINT OF CARE TEST ORDERABLES Final Result * US Appendix (02/17/2018 1:04 [...] Mitzy To M.D. us Cecilia Owen MD IM US PROCEDURES Final Result * US Pelvis Complete (02/17/2018 1:04 PM [...] appendicitis. Electronically signed by: Mitzy To M.D. Cecilia Owen MD IM US PROCEDURES Final Result documented in this encounter Visit Diagnoses Diagnosis Acute right lower quadrant pain- Primary Acute right lower quadrant pain documented in this encounter Historical Medications * This list may reflect changes made after this encounter. montelukast (SINGULAIR) 10 mg tablet Take 10 mg by mouth daily. 8 fluticasone (FLONASE) 50 mcg/actuation nasal spray Administer 2 sprays into each nostril. 10/05/2017 9 cetirizine 10 mg capsule Take 1 tablet by mouth daily. 12/19/2016 9 fluticasone-marisol nterol (BREO ELLIPTA) 100-25 mcg/dose diskus inhaler Inhale 1 puff daily. 09/04/2016 0 albuterol (PROVENTIL,AMARILYS JUDI) 1.25 mg/3 mL nebulizer solution Take 1.25 mg by nebulization every 4 (four) hours as needed for wheezing or shortness of breath 0 PROAIR HFA 90 mcg/actuation inhaler Inhale 2 puffs every 4 (four) hours as needed. 0 02/12/2018 9 added in this encounter Care Teams Community Development Officer Relationship Specialty Start Date End Date Johnna Tinajero MD [address] [id number] PCP - General 12/17/16 07/18/19 documented as of this encounter
--- OUTSIDE RECORDS SUMMARY | 2024-08-28 02:16 | XMS_ITS | Encounter Summary ---
Author Organization [facility] Address [address] [place] [phone] Phone Care Team Providers Care Railroad Firer/Fireman Name Role Phone Johnna Tinajero MD Primary Care Provider + Reason for Visit * Reason Comments Abdominal Pain x 5 days not eating well Nausea Encounter Details Date Type Department Care Team (Late st Contact Info) Description 07/18/2019 1:45 PM INFORMATION SECURITY DIRECTOR Office Visit [facility] [facility] [address] [place] [address] Cecilia Owen MD [address] [place] [id number] Acute abdominal pain (Primary Dx); Nausea; Mild dehydration Social History Tobacco Use Types Packs/Day Years Used Date Smoking Tobacco: Never PHQ-2 Answer Date Recorded PHQ-2 Score 4 06/28/2019 Comments Unknown Sex and Gender Information Value Date Recorded Sex Assigned at Not on file Legal Sex 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 INFORMATION SECURITY DIRECTOR Gender Identity Not on file Sexual Orientation Not on file documented as of this encounter Last Filed Vital Signs Vital Sign Reading Time Taken Comments Blood Pressure - - Pulse - - Temperature 36.5 ??C (97.7 ??F) 07/18/2019 1:50 PM CS T Respiratory Rate - - Oxygen Saturation - - Inhaled Oxygen Concentration - - Weight 104.8 kg (231 lb) 07/18/2019 1:50 PM INFORMATION SECURITY DIRECTOR Height - - Body Mass Index - - documented in this encounter Progress Notes * Cecilia Owen MD - 07/18/2019 1:45 PM CST 07/18/2019 HISTORY OF PRESENT ILLNESS (with pertinent ROS) Nina Coyne is a 19 y.o. female who presents with mother Chief Complaint Patient presents with ??? Abdominal Pain x 5 days not eating well ??? Nausea HPI: Mid abdominal pain x 4 days with nausea. Eating makes it hurt more. No diarrhea, dysuria or fevers. Had fever 1.5 weeks ago. No sore throat. Able to drink but no appetite and getting worse. Friend got sick last week. Taking Celexa; thinks anxiety is better. Just went up to 20mg 3 days ago after abdominal pain started. LMP Mar or May Review of Symptoms: Review of systems per HPI and otherwise all other systems are negative PHYSICAL EXAM Vitals: 07/18/19 1350 Temp: 36.5 ??C (97.7 ??F) TempSrc: Oral Weight: 104.8 kg (231 lb) Constitutional: Pt appears well-developed and well-nourished, active, NAD and non-toxic appearance. HEENT: Eyes: Scleral injection: no; Eye Discharge: no Ears: Right TM normal Left TM normal Nose: . no abnormalities Mouth/Throat: Mucous membranes are moist. Pharynx/Tonsills: normal tonsils bilaterally Neck: Neck supple without rigidity. No lymphadenopathy Cardiovascular: Normal rate and regular rhythm, without murmur Pulmonary/Chest: clear to auscultation bilaterally, normal work of breathing and good air movement Abdominal: Bowel sounds are active, no distension, moderate periumbilical to suprapubic tenderness,no rebound and no guarding. No hepatosplenomegaly Neurological: alert. Skin: Skin is warm. Capillary refill brisk. No rash noted. ASSESSMENT/PLAN: 1. Acute abdominal pain 2. Nausea 3. Mild dehydration Supportive care, encourage fluids, zofran x 1. - POCT UA, AUTO W/O SCOPE - ketones sg 1.025. No leuks or nitrites. - POCT URINE CULTURE - ondansetron ODT (ZOFRAN-ODT) disintegrating tablet 4 mg Parent/patient instructed to call with concerns, if not improving in 1-2 days or new symptoms/problems develop. Cecilia Owen MD RMATION SECURITY DIRECTOR documented in this encounter Plan of Treatment Not on file documented as of this encounter Procedures Procedure Name Priority Date/Time Associated Diagnosis Comments POCT URINALYSIS, AUTO W/O SCOPE Routine 07/18/2019 2:42 PM INFORMATION SECURITY DIRECTOR Acute abdominal pain Nausea Mild dehydration POCT URINE CULTURE Routine 07/18/2019 2: 00 PM INFORMATION SECURITY DIRECTOR Acute abdominal pain Nausea Mild dehydration documented in this encounter Results * (ABNORMAL) POCT UA, AUTO W/O SCOPE (07/18/2019 2:42 PM INFORMATION SECURITY DIRECTOR) Color, Urine, POC Dark Yellow Clarity, ur, POC Clear Clear Glucose, ur, POC Negative Negative mg/dL Bilirubin, ur, POC Negative Negative, Small, Moderate, Large Ketones, ur, POC Small(A) Negative Specific [place], POC 1.025 1.005 - 1.030 Blood, ur, POC Negative Negative pH, ur, POC 5.0 5.0 - 8.0 Protein, ur, POC 1+(A) Negative Urobilinogen, Urine, POC 2.0 mg/dL Leukocytes, ur, POC Negative Negative Nitrite, ur, POC Negative Negative Appearance, fld Clear Clear Urine 07/18/2019 2:42 PM INFORMATION SECURITY DIRECTOR Cecilia Owen MD POINT OF CARE TEST ORDERABLES Final Result * POCT URINE CULTURE (07/18/2019 2:00 PM INFORMATION SECURITY DIRECTOR) Urine Culture, POC negative Culture, POC negative Urine 07/18/2019 2:00 PM INFORMATION SECURITY DIRECTOR us Cecilia Owen MD POINT OF CARE TEST ORDERABLES Final Result documented in this encounter Visit Diagnoses Diagnosis Acute abdominal pain- Primary Abdominal pain, unspecified site Nausea Nausea alone Mild dehydration Dehydration documented in this encounter Administered Medications Inactive Administered Medications - up to 3 most recent administrations Medication Order MAR Action Action Date Dose Rate Site ondansetron ODT (ZOFRAN-ODT) disintegrating tablet 4 mg 4 mg, oral, Once, On 07/18/19 at 1500, For 1 doseIndications:Acute abdominal pain,Nausea,Mild dehydration Given 07/18/2019 2:35 PM INFORMATION SECURITY DIRECTOR 4 mg documented in this encounter Orders Medications Ordered That Jonny ht Not Have Been Administered Count Last Ordered Date First Ordered Date ondansetron ODT (ZOFRAN-ODT) disintegrating tablet 4 mg 1 07/18/2019 documented in this encounter Care Teams Railroad Firer/Fireman Relationship Specialty Start Date End Date Johnna Tinajero MD [address] [place] [id number] PCP - General 12/17/16 07/18/19 documented as of this encounter
--- OUTSIDE RECORDS SUMMARY | 2024-08-28 02:16 | XMS_ITS | Encounter Summary ---
Author Organization [facility] Facility Care Team Providers Care Recreational Programs Director Name Role Phone Unavailable Primary Care Provider Unavailabl e Encounter Details Date Type Department Care Team (Latest Contact Info) Description 06/19/2014 10:42 PM CDT - 06/20/2014 2:19 AM CDT Hospital Encounter [facility] Mckenna Mendoza MD [address] [place] [address] Headache; Visual disturbance; Asthma Social History Tobacco Use Types Packs/Day Years Used Date Smoking Tobacco: Never Assessed Comments Unknown Sex and Gender Information Value Date Recorded Sex Assigned at Not on file Legal Sex 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
--- OUTSIDE RECORDS SUMMARY | 2024-08-28 02:16 | XMS_ITS | Encounter Summary ---
Author Organization [facility] Address [address] [place] [address] [address] [place] [address] Phone Care Team Providers Care Store Lead Name Role Phone Johnna Tinajero MD Primary Care Provider + Encounter Details Date Type Department Care Team (Late st Contact Info) Description 07/13/2019 Telephone [facility] [address] [facility] [address] [place] [address] Johnna Tinajero MD [address] [place] [address] [address] [place] [address] Social History Tobacco Use Types Packs/Day Years Used Date Smoking Tobacco: Never PHQ-2 Answer Date Recorded PHQ-2 Score 4 06/28/2019 Comments Unknown Sex and Gender Information Value Date Recorded Sex Assigned at Not on file 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 Nina had some set backs. She was recently ill and stayed home from school for afew days. Her ill sxs went away but is stressed about missing school. She went back today, mom doesnot know how she tolerated school yet. Currently taking Celexa 10 mg daily and reported no SE, but feels that it is not working. Discussed increasing dose to 20 mg daily and mom agreed to bring it upwith Nina and start soon. Nina missed therapist appointment last week due to illness. Mom plans to reschedule. She has not yet done PHQ-9 at home. She will email to us by next week. Will schedule 2week FUP call to touch base. They will CB sooner if needed. ER MATE * Telephone Encounter - Madyson Roberts - 07/13/2019 3:35 PM CST ----- Message from Basilia Dillard RN sent at 06/29/2019 8:17 AM CDT ----- Contact: GLENDA CB 07/12/19. Started Celexa dose OK? Any side effects? If no relief to symptoms, can increase to20 mg. Seeing therapy, PHQ-9 17, SCRD 51. F/U with PCP 08/02/19. ER MATE documented in this encounter Plan of Treatment Not on file documented as of this encounter Visit Diagnoses Not on filedocumented in this encounter Discontinued Medications Medication Sig Discontinue Reason Start Date End Da te citalopram (CeleXA) 10 mg tabletIndications:Anxiet y and depression Take 1 tablet (10 mg total) by mouth daily 06/28/2019 07/13/2019 documented as of this encounter Care Teams Store Lead Relationship Specialty Start Date End Date Johnna Tinajero MD [address] [id number] PCP - General 12/17/16 07/18/19 documented as of this encounter
--- OUTSIDE RECORDS SUMMARY | 2024-08-28 02:16 | XMS_ITS | Encounter Summary ---
Author Organization [facility] Healthcare Address [address] [place] [address] Care Team Providers Care Mechanic Field Service Name Role Phone Johnna Tinajero MD Primary Care Provider + Johnna Tinajero MD Unavailable [phone] Reason for Visit * Reason Comments Abdominal Pain Encounter Details Date Type Department Care Team (Late st Contact Info) Description 07/19/2019 11:29 AM YARD CONDUCTOR - 07/23/2019 3:53 PM YARD CONDUCTOR Hospital Encounter [facility] [address] [place] [address] Rosette Cade DO 1 [facility] [address] [place] [address] Marianela Bruce MD 1 [facility] [address] [place] [address] Right lower quadrant abdominal pain (Primary Dx); Nausea Discharge Disposition: Discharge to home or self care Social History Tobacco Use Types Packs/Day Years Used Date Smoking Tobacco: Never PHQ-2 Answer Date Recorded PHQ-2 Score 4 06/28/2019 Comments No Sex and Gender Information Value Date Recorded Sex Assigned at Not on file Legal Sex 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 YARD CONDUCTOR Gender Identity Not on file Sexual Orientation Not on file documented as of this encounter Last Filed Vital Signs Vital Sign Reading Time Taken Comments Blood Pressure 114/71 07/23/2019 11:39 AM YARD CONDUCTOR Pulse 57 07/23/2019 11:39 AM YARD CONDUCTOR Temperature 36.7 ??C (98.1 ??F) 07/23/2019 1 1:39 AM YARD CONDUCTOR Respiratory Rate 18 07/23/2019 11:3 9 AM YARD CONDUCTOR Oxygen Saturation 99% 07/23/2019 11: 39 AM YARD CONDUCTOR Inhaled Oxygen Concentration - - Weight 104.6 kg (230 lb 9.6 oz) 07/19/2019 8:50 PM YARD CONDUCTOR Height 163 cm (5' 4.17 ) 07/19/2019 8:50 PM YARD CONDUCTOR Body Mass Index 39.37 07/19/2019 8:50 PM YARD CONDUCTOR Body Mass Index Percentile 99.13% 07/19/2019 8:5 0 PM YARD CONDUCTOR Growth Chart: [facility] (Girls, 2- 20 Years) documented in this encounter Discharge Diagnoses Diagnosis Corpus luteum cyst of right ovary - CORPUS LUTEUM CYST OF RIGHT OVARY Obesity, unspecified - OBESITY, UNSPECIFIED Body mass index (bmi) pediatric, greater than or equal to 95th percentile for age - BODY MASS INDEX (BMI) PEDIATRIC, GREATER THAN OR EQUAL TO 95TH PERCENTILE FOR AGE Dietary counseling and surveillance - DIETARY COUNSELING AND SURVEILLANCE Major depressive disorder, single episode, unspecified - MAJOR DEPRESSIVE DISORDER, SINGLE EPISODE, UNSPECIFIED Anxiety disorder, unspecified - ANXIETY DISORDER, UNSPECIFIED Unspecified asthma, uncomplicated - UNSPECIFIED ASTHMA, UNCOMPLICATED Constipation, unspecified - CONSTIPATION, UNSPECIFIED intermediate card tender (current) use of inhaled steroids - BAG CUTTER (CURRENT) USE OF INHALED STEROIDS Allergy status to penicillin - ALLERGY STATUS TO PENICILLIN Other nonmedicinal substance allergy status - OTHER NONMEDICINAL SUBSTANCE ALLERGY STATUS Irregular menstruation, unspecified - IRREGULAR MENSTRUATION, UNSPECIFIED Other care home (current) drug therapy - OTHER BAG CUTTER (CURRENT) DRUG THERAPY documented in this encounter Discharge Summaries * Marianela Bruce MD - 07/23/2019 1:36 PM CST Inpatient Discharge Summary BRIEF OVERVIEW Admitting Provider: Marianela Bruce MD Discharge Provider: Marianela Bruce MD Primary Care Physician at Discharge: Johnna Tinajero MD [phone] Admission Date: 07/19/2019 Discharge Date: 07/23/2019 Admission Location: [facility] Chief Complaint: Abdominopelvic pain Primary Discharge Diagnosis: Ruptured R Ovarian Cyst Secondary Discharge Diagnosis: Asthma Anxiety DETAILS OF HOSPITAL STAY Presenting Problem/History of Present Illness: 19yo girl with PMH asthma (on breo), obesity, anxiety (on celexa) who presents with 5 days of nausea and 3 days of abdominal pain. Mother reports a few days of fever about a week and a half prior to onset of these symptoms with no other sick symptoms, but other than that she was in her usual state of health with no antecedent illness, weight loss, change in diet or appetite, diarrhea or constipation, dysuria or change in appearance of urine. Continues to have regular bowel movements, last one on day prior to admission. She does report that 1 week prior to onset of nausea and abdominal pain she was spending time with a friend that was having vomiting. Nina reports that since onset of nausea 5 days ago, she has had 2 episodes of small-volume emesis - she swallowed the vomitus both times and thus could not comment on its appearance. She states that this emesis is different than the sensation of reflux which she had several years ago, for which she was treated with prilosec for a few months with complete resolution. The abdominal pain started 3 days ago and initially was periumbilical,with movement to the RLQ on the day prior to admission. She states that the pain is a dull and at worst an 8/10. It is worse with eating any kind of food, both liquid and solid. Pain is also exacerbated by deep inspiration. Bowel movements have no effect on pain level. No dysphagia, sensation of food getting stuck, or chest pain with eating or swallowing. Of note, around the same time that the abdominal pain started the dosage of celexa was increased from 10mg to 20mg. As a result of the nauseaand abdominal pain she has had significantly decreased PO intake for the last 5 days. She presentedto PMD on 07/18/19 with these concerns - trialed zofran without improvement. Subsequently presented[facility] ED - non-surgical, benign abdominal exam. UA bland other than 1+ ketones, CBC, amylase, lipase, electrolytes all WNL. RUQ ultrasound showed no abnormality of the gallbladder. Received zofran,pepcid, maalox without improvement. Received 1 NSB and IV migraine cocktail toradol/compazine/benadryl with resolution of nausea and significant improvement in abdominal pain from 8/ to 3/. Hospital Course: Nina Coyne was admitted to the floor for abdominal pain and nausea. Pain was controlled overnightwith NSB, toradol/compazine and benadryl. Abdominal ultrasound on 07/20 was wnl, appendix not visualized but no secondary indicators of acute appendicitis; pelvic ultrasound with doppler was wnl which excluded ovarian torsion. Due to continued pain and rebound tenderness on exam a CT abdomen/pelviswith contrast was done. Appendix was wnl, there was a ovarian cyst present with a small amount of fluid in the cul-de-sac which may have explained some of her pain. Gynecology was consulted and it was thought that she likely had a cyst which was slowly leaking causing the length of abdominal pain. Lab work (FSH, LH, prolactin were wnl; DHEA-S total and free testosterone are pending) . 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 Active Issues Requiring Follow-up: Follow-up with [facility] about menstrual cycles Test Results Pending at Discharge: Order Current Status Testosterone, Total and Free, Serum In process Operative Procedures Performed: none Other Procedures: none Pertinent Test Results: CT scan showing small corpus luteal cyst with minimal free fluid in the cul-de-sac FSH, LH, prolactin wnl DHEA-S & testosterone are pending Discharge Details Physical Exam at Discharge: Discharge Condition: good Pulse: 57 Resp: 18 BP: 114/71 Temp: 36.7 ??C (98.1 ??F) Weight: 104.6 kg (230 lb 9.6 oz) Physical Exam Physical Exam Constitutional: General: She is not in acute distress. Appearance: Normal appearance. She is well-developed. She is obese. HENT: Head: Normocephalic and atraumatic. Right Ear: Tympanic membrane normal. Left Ear: Tympanic membrane normal. Nose: Nose normal. No congestion or rhinorrhea. Mouth/Throat: Mouth: Mucous membranes are moist. Pharynx: Oropharynx is clear. Eyes: Extraocular Movements: [...] Palpations: Abdomen is soft. Tenderness: There is tenderness in the right lower quadrant, periumbilical area and suprapubic area. There is no right CVA tenderness, left CVA tenderness, guarding or rebound. Negative signs includeMurphy's sign, Rovsing's sign, McBurney's sign and psoas sign. Hernia: No hernia is present. Musculoskeletal: Normal range of motion. General: No swelling or tenderness. Skin: General: Skin is warm and dry. Capillary Refill: Capillary refill takes less than 2 seconds. Findings: No rash. Neurological: General: No focal deficit present. Mental Status: She is alert and oriented to person, place, and time. Mental status is at baseline. Psychiatric: Mood and Affect: Mood normal. Behavior: Behavior normal. ?? Discharge Disposition: Patient going to home Code Status at Discharge: full Discharge Instructions: Activity Instructions Post-Discharge activity: May return to school / daycare / usual activities Diet Instructions Pediatric Discharge Diet Diet Type: Return to previous diet Other Instructions Provider to Notify Notify Johnna Tinajero MD for signs and symptoms listed below unless specified. Please call your local [place] truck driver for any of the following: fevers higher than 38.5C or 101.3F, difficulty breathing, chest pain, dizziness,changes in strength or balance, diarrhea or vomiting, abdominalpain, or any other new or worsening symptoms. Please follow up with your retail sales assistant in a week. ?? Summary of care Nina was found to have ovarian cyct and most likely which was causing her belly pain. Please follow with your retail sales assistant in a week for starting oral contraceptive medication. Discharge Medications: Current Medications TAKE these medications * albuterol 1.25 mg/3 mL nebulizer solution Take 3 mL by nebulization every 4 (four) hours as needed for wheezing or shortness of breath * albuterol HFA 90 mcg/actuation inhaler Commonly known as: PROVENTIL HFA,VENTOLIN HFA,PROAIR HFA Inhale 2 puffs every 6 hours as needed for wheezing or shortness of breath BREO ELLIPTA 100-25 mcg/dose diskus inhaler Generic drug: fluticasone furoate-vilanterol Inhale 1 puff daily. citalopram 20 mg tablet Commonly known as: CeleXA Take 1 tablet (20 mg total) by mouth daily fluticasone propionate 50 mcg/actuation nasal spray Commonly known as: FLONASE Administer 2 sprays into each nostril daily ketorolac 10 mg tablet Commonly known as: TORADOL Take 1 tablet (10 mg total) by mouth every 6 (six) hours as needed for pain * This list has 2 medication(s) that are the same as other medications prescribed for you. Read the directions carefully, and ask your doctor or other care provider to review them with you. Outpatient Follow-Up: Future Appointments Date Time Provider Department Center 09/02/2019 1:30 PM Johnna Tinajero MD [facility] I have seen and examined the patient on 07/23/2019. I agree with the findings and plan of care as documented in the resident's/fellow's note and as discussed with the resident/fellow.. I spent 32 minutes on discharge planning activities. Time spent was on Coordination of care, Counselling with patient/family, discharge exam and parent/patient education. Appreciate both Ped Surgery and Gynecology consultation during this admission. Marianela Bruce MD CONDUCTOR CONDUCTOR CONDUCTOR documented in this encounter Discharge Instructions * Discharge Instructions* Selin Leon MD - 07/22/2019 5:57 PM YARD CONDUCTOR Please feel free to call the office of the adolescent gynecology team that saw you in the hospital.Their number is [phone]. CONDUCTOR documented in this encounter Medications at Time of Discharge albuterol HFA (PROVENTIL HFA,VENTOLIN HFA,PROAIR HFA) 90 mcg/actuation inhaler Inhale 2 puffs every 6 (six) hours as needed for wheezing or shortness of breath albuterol (PROVENTIL,VENTOLIN ) 1.25 mg/3 mL nebulizer solution Take 1.25 mg by nebulization every 4 (four) hours as needed for wheezing or shortness of breath 08/21/20 20 citalopram (CeleXA) 20 mg tablet Take 1 tablet (20 mg total) by mouth daily 30 tablet 11 9 08/16/20 19 fluticasone propionate (FLONASE) 50 mcg/actuation nasal spray Administer 2 sprays into each nostril daily 8 09/13/19 20 fluticasone-vilante rol (BREO ELLIPTA) 100-25 mcg/dose diskus inhaler Inhale 1 puff daily. 7 09/02/19 20 ketorolac (TORADOL) 10 mg tablet Take 1 tablet (10 mg total) by mouth every 6 (six) hours as needed for pain 20 tablet 9 08/02/20 19 ondansetron ODT (ZOFRAN-ODT) 4 mg disintegrating tablet Take 1 tablet (4 mg total) by mouth every 6 (six) hours as needed for nausea or vomiting 20 tablet 9 08/02/20 19 documented as of this encounter Ordered Prescriptions Prescription Sig Dispense Quantity Refills Last Filled Start Date End Date ondansetron ODT (ZOFRAN-ODT) 4 mg disintegrating tablet Take 1 tablet (4 mg total) by mouth every 6 (six) hours as needed for nausea or vomiting 20 tablet 07/23/2019 9 levonorgestrel-ethin yl estrad (LUTERA) 0.1-20 mg-mcg per tablet Take 1 tablet by mouth daily Please take 10 days of provera first. Then after your period starts, begin the lutera. 84 tablet 07/22/2019 9 medroxyPROGESTERone (PROVERA) 10 mg tablet Take 1 tablet (10 mg total) by mouth daily for 10 days 10 tablet 07/22/2019 9 ketorolac (TORADOL) 10 mg tablet Take 1 tablet (10 mg total) by mouth every 6 (six) hours as needed for pain 20 tablet 07/22/2019 9 documented in this encounter Discharge Disposition Disposition Code Departure Means Destination Discharge to home or self care documented in this encounter Progress Notes * Lisa Rivero MD - 07/23/2019 12:28 PM CST Pediatric Daily Progress Note Subjective 19 year old female with abdominopelvic pain presumed ruptured ovarian cyst. Interval History: Nina's pain 02/07 overnight. She had 90 ml oral intake, feels nauseated but did not vomit. Vitals remained stable. Urine output 1.2ml/kg/hour. Objective Vitals: Vitals 24 hour ranges: Temp: [36.5 ??C (97.7 ??F)-36.9 ??C (98.4 ??F)] Pulse: [57-66] Resp: [12-20] BP: (107-117)/(71-80) CAB 24 hr Ranges: 0 I/O last 2 completed shifts: In: 2254 [P.O.:90; I.V.:2164] Out: 3050 [Urine:3050] I/O this shift: In: 340 [P.O.:130; I.V.:210] Out: 850 [Urine:850] Physical Exam: Physical Exam Constitutional: General: She is not in acute distress. Appearance: Normal appearance. She is well-developed. She is obese. HENT: Head: Normocephalic and atraumatic. Right Ear: Tympanic membrane normal. Left Ear: Tympanic membrane normal. Nose: Nose normal. No congestion or rhinorrhea. Mouth/Throat: Mouth: Mucous membranes are moist. Pharynx: Oropharynx is clear. Eyes: Extraocular Movements: [...] Palpations: Abdomen is soft. Tenderness: There is tenderness in the right lower quadrant, periumbilical area and suprapubic area. There is no right CVA tenderness, left CVA tenderness, guarding or rebound. Negative signs includeMurphy's sign, Rovsing's sign, McBurney's sign and psoas sign. Hernia: No hernia is present. Musculoskeletal: Normal range of motion. General: No swelling or tenderness. Skin: General: Skin is warm and dry. Capillary Refill: Capillary refill takes less than 2 seconds. Findings: No rash. Neurological: General: No focal deficit present. Mental Status: She is alert and oriented to person, place, and time. Mental status is at baseline. Psychiatric: Mood and Affect: Mood normal. Behavior: Behavior normal. Lab/Radiology/Diagnostic Review: Laboratory review: Lab results in the last 24 hours: no new lab work. Assessment/Plan Anxiety Assessment & Plan Followed by therapist, patient states that therapy [...] attempts or self-harm. - celexa 20mg qHS Asthma Assessment & Plan History of numerous hospitalizations due to asthma exacerbations in childhood, with several day long stay in PICU 5 or 6 years ago (no intubations). Asthma presently well-controlled on regimen of qHSbreo inhaler, with no hospitalizations or exacerbations in last several years. - continue qHS breo - albuterol PRN q4hrs Abdominal pain Assessment & Plan 19 year old girl with PMH obesity, asthma, anxiety here with abdominopelvic pain. Cause of abdominal pain is likely ruptured ovarian cyst. Clinically her pain is getting better, rated as a 6/10. - CTabdo/pelvis: appendix within normal limits, ovarian cyst with small amount of free fluid in posterior cul-de-sac. Prolactin:8.9 LH:4.6 FSH:1.8 TSH:wnl Plan: - Consider discharge if meets oral intake - discontinue iv fluids -encourage oral intake - regular diet, POAL -[employer]' following -Scheduled tylenol and toradol q6hr for pain -start OCP with discharge and f/u with gynecology -f/u DHES-A, Testosterone results Cosigned by Marianela Bruce MD at 07/23/2019 1:08 PM YARD CONDUCTOR CONDUCTOR CONDUCTOR Associated attestation - Marianela Bruce MD - 07/23/2019 1:08 PM YARD CONDUCTOR I have seen and examined the patient on 07/23/19. I agree with the findings and plan of care as documented in the resident's/fellow's note and as discussed with the resident/fellow.. * Cris Espinoza MD - 07/22/2019 7:17 AM CST Pediatric Daily Progress Note Subjective Chief complaint of RLQ abdominal pain. Interval History: Nina's pain was unchanged overnight. She was able to have a few bites of dinner last night and got up and walked around the floor. Objective Vitals: Vitals 24 hour ranges: Temp: [36 ??C (96.8 ??F)-36.9 ??C (98.4 ??F)] Pulse: [59-76] Resp: [16-23] BP: (117-125)/(79-89) CAB 24 hr Ranges: 0 I/O last 2 completed shifts: In: 4867.1 [P.O.:160; I.V.:2707.1; IV Piggyback:2000] Out: 3820 [Urine:3820] No intake/output data recorded. Physical Exam: Physical Exam Constitutional: General: She is not in acute distress. Appearance: Normal appearance. She is well-developed. She is obese. HENT: Head: Normocephalic and atraumatic. Right Ear: Tympanic membrane normal. Left Ear: Tympanic membrane normal. Nose: Nose normal. No congestion or rhinorrhea. Mouth/Throat: Mouth: Mucous membranes are moist. Pharynx: Oropharynx is clear. Eyes: Extraocular Movements: [...] Palpations: Abdomen is soft. Tenderness: There is tenderness in the right lower quadrant. There is no guarding. Negative signs include Rovsing's sign, McBurney's sign and psoas sign. Musculoskeletal: Normal range of motion. General: No swelling or tenderness. Skin: General: Skin is warm and dry. Capillary Refill: Capillary refill takes less than 2 seconds. Findings: No rash. Neurological: General: No focal deficit present. Mental Status: She is alert and oriented to person, place, and time. Mental status is at baseline. Psychiatric: Mood and Affect: Mood normal. Behavior: Behavior normal. Lab/Radiology/Diagnostic Review: Laboratory review: Lab results in the last 24 hours: no new lab work. Radiology Results: Us Abdomen Limited Result Date: 07/20/2019 Appendix not visualized, no definitive secondary signs of appendicitis. Exam limited due to the patient's body habitus. Electronically signed by: Romie Fierro M.D. Us Gallbladder Result Date: 07/19/2019 Normal gallbladder. Dictated by: Luciano Rivas M.D. The radiology attending physician has personally reviewed this study, and had reviewed and/or edited this written report and agrees with it.Electronically signed by: Romie Fierro M.D. Us Pelvis And Ovarian Doppler Limited Result Date: 07/20/2019 Normal. Dictated by: Pipe Lopes The radiology attending physician has personally reviewed this study, and had reviewed and/or edited this written report and agrees with it. Electronically signed by: Romie Fierro M.D. Assessment/Plan Abdominal pain Assessment & Plan 19 year old girl with PMH obesity, asthma, anxiety here with RLQ abdominal pain. Cause of abdominalpain is still unclear. Clinically her pain is [...] amount of free fluid in posterior cul-de-sac -[employer]' following -Schd tylenol and toradol q6hr for pain - f/u FSH, LH, prolactin, DHEAS, free and total testerone; if wnl can start OCP Anxiety Assessment & Plan Followed by therapist, patient states that therapy [...] attempts or self-harm. - celexa 20mg qHS Asthma Assessment & Plan History of numerous hospitalizations due to asthma exacerbations in childhood, with several day long stay in PICU 5 or 6 years ago (no intubations). Asthma presently well-controlled on regimen of qHSbreo inhaler, with no hospitalizations or exacerbations in last several years. - continue qHS breo - albuterol PRN q4hrs Cris Espinoza MD Pediatrics, PGY-1 Cosigned by Marianela Bruce MD at 07/22/2019 4:54 PM YARD CONDUCTOR CONDUCTOR CONDUCTOR Associated attestation - Marianela Bruce MD - 07/22/2019 4:54 PM YARD CONDUCTOR I have seen and examined the patient on 07/22/19. I agree with the findings and plan of care as documented in the resident's/fellow's note and as discussed with the resident/fellow. Appreciate Gynecology consultation - will schedule toradol and tylenol - pain likely secondary to ovarian cyst. * Cris Espinoza MD - 07/21/2019 7:29 AM CST Pediatric Daily Progress Note Subjective Chief complaint of RLQ abdominal pain. Interval History: Nina had increased pain last night, without resolution with tylenol. NSB seemed to improve the pain to a 6/10. Nina slept poorly due to pain and discomfort. Per mom her pain has incrementally worsened. Pain is a 7/10 this AM. Per mom, she has never presented in a stereotypical way when she's been sick in the past and so she remains concerned about appendicitis. Objective Vitals: Vitals 24 hour ranges: Temp: [36.3 ??C (97.3 ??F)-36.9 ??C (98.4 ??F)] Pulse: [62-88] Resp: [16-22] BP: (124-132)/(68-87) CAB 24 hr Ranges: 0 I/O last 2 completed shifts: In: 3652 [P.O.:575; I.V.:2077; IV Piggyback:1000] Out: 1525 [Urine:1525] No intake/output data recorded. Physical Exam: Physical Exam Constitutional: General: She is not in acute distress. Appearance: Normal appearance. She is well-developed. She is obese. HENT: Head: Normocephalic and atraumatic. Right Ear: Tympanic membrane normal. Left Ear: Tympanic membrane normal. Nose: Nose normal. No congestion or rhinorrhea. Mouth/Throat: Mouth: Mucous membranes are moist. Pharynx: Oropharynx is clear. Eyes: Extraocular Movements: [...] Palpations: Abdomen is soft. Tenderness: There is tenderness in the right lower quadrant. There is no guarding or rebound. Negative signs include Rovsing's sign, McBurney's sign, psoas sign and obturator sign. Musculoskeletal: Normal range of motion. General: No swelling or tenderness. Skin: General: Skin is warm and dry. Capillary Refill: Capillary refill takes less than 2 seconds. Findings: No rash. Neurological: General: No focal deficit present. Mental Status: She is alert and oriented to person, place, and time. Mental status is at baseline. Psychiatric: Mood and Affect: Mood normal. Behavior: Behavior normal. Lab/Radiology/Diagnostic Review: Laboratory review: Lab results in the last 24 hours: Recent Results (from the past 24 hour(s)) CBC with auto differential Collection Time: 07/21/19 4:04 AM Result Value Ref Range WBC 5.5 3.8 - 9.9 K/cumm Hgb 10.5 (L) 11.9 - 15.5 g/dL Hct 33.0 (L) 35.6 - 45.5 % Plt 263 150 - 400 K/cumm MPV 9.7 9.1 - 12.3 fL RBC 3.71 (L) 3.90 - 5.20 M/cumm MCV 88.9 81.3 - 96.4 fL MCH 28.3 27.1 - 33.3 pg MCHC 31.8 (L) 32.3 - 35.7 g/dL RDW CV 13.3 11.1 - 14.9 % RDW SD 43.6 35.7 - 48.1 fL NRBC abs 0.00 0.00 - 0.01 K/cumm Differential, auto Collection Time: 07/21/19 4:04 AM Result Value Ref Range Neutrophil abs 2.2 1.7 - 6.5 K/cumm Imm gran abs 0.0 0.0 - 0.1 K/cumm Lymphocyte abs 2.5 0.8 - 3.3 K/cumm Monocyte abs 0.6 0.2 - 0.8 K/cumm Eosinophil abs 0.2 0.0 - 0.5 K/cumm Basophil abs 0.1 0.0 - 0.1 K/cumm Neutrophil pct 38.9 % Imm gran pct 0.4 % Lymphocyte pct 45.5 % Monocyte pct 10.3 % Eosinophil pct 3.8 % Basophil pct 1.1 % Radiology Results: Us Abdomen Limited Result Date: 07/20/2019 Appendix not visualized, no definitive secondary signs of appendicitis. Exam limited due to the patient's body habitus. Electronically signed by: Romie Fierro M.D. Us Gallbladder Result Date: 07/19/2019 Normal gallbladder. Dictated by: Luciano Rivas M.D. The radiology attending physician has personally reviewed this study, and had reviewed and/or edited this written report and agrees with it.Electronically signed by: Romie Fierro M.D. Us Pelvis And Ovarian Doppler Limited Result Date: 07/20/2019 Normal. Dictated by: Pipe Lopes The radiology attending physician has personally reviewed this study, and had reviewed and/or edited this written report and agrees with it. Electronically signed by: Romie Fierro M.D. Assessment/Plan Anxiety Assessment & Plan Followed by therapist, patient states that therapy [...] attempts or self-harm. - celexa 20mg qHS Asthma Assessment & Plan History of numerous hospitalizations due to asthma exacerbations in childhood, with several day long stay in PICU 5 or 6 years ago (no intubations). Asthma presently well-controlled on regimen of qHSbreo inhaler, with no hospitalizations or exacerbations in last several years. - continue qHS breo - albuterol PRN q4hrs Abdominal pain Assessment & Plan 19 year old girl with PMH obesity, asthma, anxiety here with RLQ abdominal pain. Cause of abdominalpain is still unclear. Clinically her pain is [...] amount of free fluid in posterior cul-de-sac Cris Espinoza MD Pediatrics, PGY-1 Cosigned by Marianela Bruce MD at 07/21/2019 3:03 PM YARD CONDUCTOR CONDUCTOR CONDUCTOR Associated attestation - Marianela Bruce MD - 07/21/2019 3:03 PM YARD CONDUCTOR I have seen and examined the patient on 07/21/19. I agree with the findings and plan of care as documented in the resident's/fellow's note and as discussed with the resident/fellow. On exam - afebrile, cta bilaterally, RRR, +RLQ tender to palpation with rebound tenderness, +obturator sign. With persistent RLQ pain and no improvement will proceed with Abd CT, appreciate Surgery consult. CT - no appendicitis, + ovarian cyst. Will consult cissp today. * Kenya Lee RD - 07/20/2019 9:47 AM CST Pediatric Nutrition Assessment Nina Coyne 2000 Reason for Assessment: Consult/Referral for poor po intake >4 days Medical History: 19 y.o. female with PMH asthma (on breo), obesity, anxiety (on celexa) who presents with 5 days of nausea and 3 days of abdominal pain Past Medical History: Diagnosis Date ??? Acute upper respiratory infection Acute URI - (Added by TW Conv) ??? Asthma ??? Chondrocostal junction syndrome Costochondritis, acute - (Added by TW Conv) ??? Cyst of right ovary Right ovarian cyst - (Added by TW Conv) ??? Headache Headache, acute - (Added by TW Conv) ??? Hearing loss of left ear Loss of hearing, left - (Added by TW Conv) ??? Other specified sprain of right wrist, initial encounter Traumatic tear of triangular fibrocartilage complex (TFCC) of right wrist - (Added by TW Conv) ??? Pain in wrist Wrist joint pain - (Added by TW Conv) ??? Personal history of other diseases of the digestive system History of constipation - (Added by TW Conv) ??? Personal history of other diseases of the musculoskeletal system and connective tissue History of backache - (Added by TW Conv) ??? Personal history of other diseases of the respiratory system History of pharyngitis - (Added by TW Conv) ??? Personal history of other specified conditions History of dizziness - (Added by TW Conv) ??? Personal history of other specified conditions History of ataxia - (Added by TW Conv) ??? Postconcussional syndrome Postconcussion syndrome - (Added by TW Conv) ??? Right lower quadrant pain Abdominal pain, RLQ - (Added by TW Conv) ??? Sprain of left wrist Sprain of left wrist - (Added by TW Conv) Social: caregiver at bedside Nutrition Screen What diet do you follow at home?: Regular Have You Recently Lost Weight Without Trying?: Unsure Poor Oral Intake for Four or More Days Prior to Admission: Yes (Comment) Anthropometrics Weight: 104.6 kg (230 lb 9.6 oz) Admission Weight : 105.1 kg %tile Weight for Age: >97 %tile Weight Change: -0.50 kg (-1.10 lbs) Height: 163 cm (5' 4.17 ) %tile Height for Age: 50-75 %tile BMI (Calculated): 39.4 %tile BMI for Age: >97 %tile Growth history: 08/17/18: 105.6 kg 07/19/19: 104.6 kg Estimated nutrition needs Estimated enteral needs: 20-25 kcal/kg/day Estimated parenteral/enteral protein needs: 0.85-1 grams/kg/day Estimated fluid needs: 30 ml/kg/day Allergies: Dog dander and Penicillins Medications: Patient's active medications have been reviewed. Labs: Pertinent Nutrition Labs Reviewed Dietary Orders (From admission, onward) Start Ordered 07/20/19 1451 Pediatric NPO Diet Diet effective now 07/20/19 1451 Care Plan 1 Nutrition Diagnosis 1: Predicted suboptimal energy intake Related to: Loss of appetite Evidenced by: Patient interview Interventions: Meals and snacks Goals: Adequate nutrition to meet estimated needs by next assessment Pertinent Nutrition Information: Met with Nina in room with caregiver. Nina reports that the lastmeal she really ate was on Thursday, and she has not been able to eat or drink much since then. She has had ~8 oz of water today, and caregiver at bedside reports that this intake is consistent with what she has had over the past few days. Nina and caregiver report that she is NPO again this afternoon for further testing. Plan: ?? Advance diet to regular diet po ad karey as medically tolerated. ?? Weights weekly. ?? Will follow per policy. Kenya Lee, MS RD [facility] [phone] CONDUCTOR documented in this encounter H&P Notes * Keara Guillory MD - 07/20/2019 1:19 AM CST Pediatric History and Physical Subjective Patient is a 19 y.o. female with chief complaint of abdominal pain and nausea. HPI: 19yo girl with PMH asthma (on breo), obesity, anxiety (on celexa) who presents with 5 days of nausea and 3 days of abdominal pain. Mother reports a few days of fever about a week and a half prior to onset of these symptoms with no other sick symptoms, but other than that she was in her usual state of health with no antecedent illness, weight loss, change in diet or appetite, diarrhea or constipation, dysuria or change in appearance of urine. Continues to have regular bowel movements, last one on day prior to admission. She does report that 1 week prior to onset of nausea and abdominal pain she was spending time with a friend that was having vomiting. Nina reports that since onset of nausea 5 days ago, she has had 2 episodes of small-volume emesis - she swallowed the vomitus both times and thus could not comment on its appearance. She states that this emesis is different than the sensation of reflux which she had several years ago, for which she was treated with prilosec for a few months with complete resolution. The abdominal pain started 3 days ago and initially was periumbilical,with movement to the RLQ on the day prior to admission. She states that the pain is a dull and at worst an 8/10. It is worse with eating any kind of food, both liquid and solid. Pain is also exacerbated by deep inspiration. Bowel movements have no effect on pain level. No dysphagia, sensation of food getting stuck, or chest pain with eating or swallowing. Of note, around the same time that the abdominal pain started the dosage of celexa was increased from 10mg to 20mg. As a result of the nauseaand abdominal pain she has had significantly decreased PO intake for the last 5 days. She presentedto PMD on 07/18/19 with these concerns - trialed zofran without improvement. Subsequently [facility] - non-surgical, benign abdominal exam. UA bland other than 1+ ketones, CBC, amylase, lipase, electrolytes all WNL. RUQ ultrasound showed no abnormality of the gallbladder. Received zofran,pepcid, maalox without improvement. Received 1 NSB and IV migraine cocktail toradol/compazine/benadryl with resolution of nausea and significant improvement in abdominal pain from 04/09 to 11/07. Past Medical History: Diagnosis Date ??? Acute upper respiratory infection Acute URI - (Added by TW Conv) ??? Asthma ??? Chondrocostal junction syndrome Costochondritis, acute - (Added by TW Conv) ??? Cyst of right ovary Right ovarian cyst - (Added by TW Conv) ??? Headache Headache, acute - (Added by TW Conv) ??? Hearing loss of left ear Loss of hearing, left - (Added by TW Conv) ??? Other specified sprain of right wrist, initial encounter Traumatic tear of triangular fibrocartilage complex (TFCC) of right wrist - (Added by TW Conv) ??? Pain in wrist Wrist joint pain - (Added by TW Conv) ??? Personal history of other diseases of the digestive system History of constipation - (Added by TW Conv) ??? Personal history of other diseases of the musculoskeletal system and connective tissue History of backache - (Added by TW Conv) ??? Personal history of other diseases of the respiratory system History of pharyngitis - (Added by TW Conv) ??? Personal history of other specified conditions History of dizziness - (Added by TW Conv) ??? Personal history of other specified conditions History of ataxia - (Added by TW Conv) ??? Postconcussional syndrome Postconcussion syndrome - (Added by TW Conv) ??? Right lower quadrant pain Abdominal pain, RLQ - (Added by TW Conv) ??? Sprain of left wrist Sprain of left wrist - (Added by TW Conv) Past Surgical History: Procedure Laterality Date ??? WRIST SURGERY Facility-Administered Medications Prior to Admission Medication Dose Route Frequency Provider Last Rate Last Dose ??? [COMPLETED] ondansetron ODT (ZOFRAN-ODT) disintegrating tablet 4 mg 4 mg oral Once Cecilia Owen MD 4 mg at 07/18/19 5575 Medications Prior to Admission Medication Sig Dispense Refill Last Dose ??? citalopram (CeleXA) 20 mg tablet Take 1 tablet (20 mg total) by mouth daily 30 tablet 11 07/18/2019 ??? fluticasone-vilanterol (BREO ELLIPTA) 100-25 mcg/dose diskus inhaler Inhale 1 puff daily. 07/18/2019 at Unknown time ??? albuterol (PROVENTIL,VENTOLIN) 1.25 mg/3 mL nebulizer solution Take 3 mL by nebulization every 4 (four) hours as needed. Unknown ??? albuterol HFA (PROVENTIL HFA,VENTOLIN HFA,PROAIR HFA) 90 mcg/actuation inhaler Inhale 2 puffs every 6 hours as needed Unknown ??? fluticasone propionate (FLONASE) 50 mcg/actuation nasal spray Administer 2 sprays into affectednostril(s) daily ??? FLUZONE QUAD [id number], PF, 60 mcg (15 mcg x 4)/0.5 mL syringe 0 Not Taking ??? PROAIR HFA 90 mcg/actuation inhaler Inhale 2 puffs every 4 (four) hours as needed. 0 Not Taking Allergies Allergen Reactions ??? Dog Dander Hives Reaction: HIVES, ??? Penicillins Other (See comments) and Rash As a child Reaction: NAUSEA;, As a child Social History Tobacco Use ??? Smoking status: Never Smoker Substance Use Topics ??? Alcohol use: Not on file Family History: Patient is adopted, family history unknown. Immunization History Administered Date(s) Administered ??? DTaP [...] 03/25/2013 ??? Varicella 02/24/2003, 02/01/2008 Social History: Pediatric Social History: Drug Use: Social History Substance and Sexual Activity Drug Use Not on file Denies drug use including MJ Living Conditions: Living Conditions Lives at home with mother, father, sister, brother. Feels safe. Sexual Activity: Social History Substance and Sexual Activity Sexual Activity Not on file Denies sexual activity. Tobacco History: Social History Tobacco Use Smoking Status Never Smoker Denies smoking including e-cigs/vaping. Social history narrative: Endorses intermittent passive SI without plan that started 4 months ago but has improved since starting therapy and SSRI. Has not had SI for several months and denies SI presently. No prior suicide attempts or self-harm. Review of Systems: Constitutional: No fevers, decreased appetite, normal activity level, no significant weight change. Eyes: No eye complaints. Head, Ears, Nose, Throat: No rhinorrhea, congestion, ear ache, or sore throat. Respiratory: No cough, shortness of breath, tachypnea. Cardiovascular: No chest pain, palpitation, or syncope. Gastroenterology: +abdominal pain, +nausea, +emesis, no diarrhea. Female: Adequate urine output. No dysuria or hematuria. Menses: irregular at baseline Musculoskeletal: No joint pain or swelling. No extremity pain. Skin: No rashes. Heme: No bruising or petechiae. Neuro: No headache. No visual changes. Denies weakness. Psychiatry: endorses anxiety but denies SI, self-harm Objective Vitals: Arrival Vitals Temp 07/19/19 1058 36.5 ??C (97.7 ??F) Pulse 07/19/19 1058 80 Resp 07/19/19 1343 18 BP 07/19/19 1101 120/86 SpO2 07/19/19 1058 97 % FiO2 (%) -- Physical Exam: General: obese habitus; well appearing, cooperative, no acute distress and sleepy Head: Normocephalic, atraumatic Eye:conjunctivae clear, PERRL, nonicteric sclera Oropharynx:MMM and posterior pharynx clear Neck: neck supple and no lymphadenopathy Lungs:clear to auscultation bilaterally, normal WOB and good air movement Heart:regular rate and rhythm, normal S1 and S2 and no murmur, rubs, or gallops Abdomen: obese abdomen; soft, non-distended, bowel sounds present, no masses, no organomegaly (examlimited due to habitus) and mildly TTP RLQ :no suprapubic TTP, no CVA tenderness Extremity:no edema, no joint tenderness or swelling and capillary refill 2-3 seconds Pulses:2+ pulses and symmetric Skin:no rashes or lesions and no jaundice Neurologic:alert, face symmetric, PERRL, moves all extremities, normal gait and CN 2-12 intact Lab/Radiology/Diagnostic Review: Laboratory review: Lab results in the last 24 hours: Recent Results (from the past 24 hour(s)) Urinalysis reflex to microscopic Collection Time: 07/19/19 1:09 PM Result Value Ref Range Color, ur Yellow Yellow Clarity, ur Clear Clear Specific gravity, ur 1.014 1.010 - 1.025 pH, urine 5.5 Protein, ur ql Negative Negative Glucose, ur ql Negative Negative Ketones, ur Trace Negative Bilirubin, ur Negative Negative Blood, ur Negative Negative Urobilinogen, ur 1.0 <2.0 mg/dL Nitrite, ur Negative Negative Leukocyte esterase, ur Negative Negative UA reflex comment Reflex conditions for microscopic UA not met. Electrolytes, whole blood Collection Time: 07/19/19 1:36 PM Result Value Ref Range Sodium, Whole Blood 140 135 - 145 mmol/L Potassium, bld 4.2 3.3 - 4.9 mmol/L Chloride, bld 102 100 - 114 mmol/L CO2, Total Calculated, Whole Blood 29 20 - 30 mmol/L Anion Gap, Whole Blood 10 mmol/L Glucose, whole blood Collection Time: 07/19/19 1:36 PM Result Value Ref Range Glucose, bld 74 70 - 199 mg/dL Calcium, ionized, whole blood Collection Time: 07/19/19 1:36 PM Result Value Ref Range Ca, ionized, bld 4.84 3.90 - 5.20 mg/dL Creatinine, whole blood Collection Time: 07/19/19 1:36 PM Result Value Ref Range Creatinine, bld 0.8 0.4 - 1.0 mg/dL CBC with auto differential Collection Time: 07/19/19 1:36 PM Result Value Ref Range WBC 7.2 3.8 - 9.9 K/cumm Hgb 13.5 11.9 - 15.5 g/dL Hct 41.2 35.6 - 45.5 % Plt 348 150 - 400 K/cumm MPV 9.8 9.1 - 12.3 fL RBC 4.77 3.90 - 5.20 M/cumm MCV 86.4 81.3 - 96.4 fL MCH 28.3 27.1 - 33.3 pg MCHC 32.8 32.3 - 35.7 g/dL RDW CV 13.3 11.1 - 14.9 % RDW SD 41.8 35.7 - 48.1 fL NRBC abs 0.00 0.00 - 0.01 K/cumm Lipase Collection Time: 07/19/19 1:36 PM Result Value Ref Range Lipase 20 5 - 50 Units/L Amylase Collection Time: 07/19/19 1:36 PM Result Value Ref Range Amylase 39 0 - 130 Units/L Differential, auto Collection Time: 07/19/19 1:36 PM Result Value Ref Range Neutrophil abs 3.7 1.7 - 6.5 K/cumm Imm gran abs 0.0 0.0 - 0.1 K/cumm Lymphocyte abs 2.4 0.8 - 3.3 K/cumm Monocyte abs 0.7 0.2 - 0.8 K/cumm Eosinophil abs 0.2 0.0 - 0.5 K/cumm Basophil abs 0.1 0.0 - 0.1 K/cumm Neutrophil pct 51.7 % Imm gran pct 0.4 % Lymphocyte pct 34.1 % Monocyte pct 9.5 % Eosinophil pct 3.5 % Basophil pct 0.8 % hCG, urine, qualitative Collection Time: 07/19/19 2:11 PM Result Value Ref Range HCG, ur Negative Negative Assessment/Plan Abdominal pain Assessment & Plan 19 year old girl with PMH obesity, [...] pain worsened by eating in a female ofreproductive age who is obese raises concern for cholelithiasis, however pain is exacerbated by [employer]foods, whereas pain with cholelithiasis is typically provoked [...] will administer another fluid bolus and continue maintenanceIV fluids overnight. Will reasses nausea and pain level in the morning, and can consider schedulingIV cocktail at that time if needed. In morning will also consider stopping IV fluids to encourage PO intake. - 1L NSB - mIVF D5NS - regular diet, POAL - serial abdominal exam - if abdominal pain reoccurs and persists, consider consult to gynecology for TVUS and bimanual exam to r/o ovarian pathology Anxiety Assessment & Plan Followed by therapist, patient states that therapy [...] attempts or self-harm. - celexa 20mg qHS Asthma Assessment & Plan History of numerous hospitalizations due to asthma exacerbations in childhood, with several day long stay in PICU 5 or 6 years ago (no intubations). Asthma presently well-controlled on regimen of qHSbreo inhaler, with no hospitalizations or exacerbations in last several years. - continue qHS breo - albuterol PRN q4hrs Cosigned by Marianela Bruce MD at 07/20/2019 3:22 PM YARD CONDUCTOR CONDUCTOR CONDUCTOR Associated attestation - Marianela Bruce MD - 07/20/2019 3:22 PM YARD CONDUCTOR I have seen and examined the patient on 07/20/19. I agree with the findings and plan of care as documented in the resident's/fellow's note and as discussed with the resident/fellow. 19 y.o. female - history of irregular periods, now with nausea for 6 days, and RLQ pain for 3 days, fever over one week ago - but now resolved. Denies diarrhea, sore throat, cough. Pt without appetite. Also describes that pain started periumbilical now RLQ, and also pain in R lower back. On exam - in NAD, afebrile, cta bilaterally, RRR, + obese, + RLQ tender to palpation with rebound tenderness, + obturator sign. Reviewed abd and pelvic ultrasound - normal ovaries, appendix not visualized. A/P - 19 y.o. female with RLQ pain - concern for possible appendicitis (retrocecal) vs ovarian torsion, normal ultrasound.Will make NPO and consult surgery. documented in this encounter Consult Notes * Justyna Beltran MD - 07/22/2019 7:14 AM CSTAssociated Order(s): IP CONSULT TO HOG DRIVER MODEL ARTISTS' Consult Note [id number] Reason for Consult: possible ruptured cyst, pelvic pain Subjective HPI: 19 y.o. G0 with PMH asthma, anxiety, and obesity who is admitted for abdominopelvic pain and nausea. She initially presented 07/20 with 5 days of nausea and 3 days of abdominal pain. She additionally had a fever about a 1.5 weeks prior to these symptoms, but with no other associated sick symptoms at that time. She had pelvic US on 07/20 that showed normal ovaries with bilateral arterial flow. There was also concern for possible appendicitis and thus she underwent CT A/P 07/21 that showed normal appendix and right ovarian corpus luteum with mild free fluid in the cul de sac. bean roaster is consulted for possible ruptured cyst, pelvic pain, and irregular periods. The patient states her pain is a 6/10 today from an 8/10 on initial presentation. She reports she has never had pain like this before. The pain is mainly in her RLQ and she describes this as sharp. The pain does not radiate. Denies vaginal bleeding or abnormal discharge. Not ever sexually active. She has had one ruptured ovarian cyst in 7th grade (01/2015), discovered on US after suspected appendicitis in a very similar presentation. She believes her pain this time is worse than in 2015. Reports intermittent nausea with lack of appetite. Last ate ravioli last night. Reports regular bowel and bladder function. Her last period was in May. She reports cycles every 2 months lasting 5 days, not painful. She changes a pad every 3-4 hours. She recently saw a Appointment Coordinator PA at [facility] ([place]) who gave her provera in March which prompted her cycle in May. The plan had beenfor her to start OCPs for cycle control, but one of her liver enzymes was elevated so the plan to recheck this prior to initiating OCPs. She had her LFTs repeated recently and they were normal, but they have not had time to follow up to start OCPs. Past Medical History: Diagnosis Date ??? Acute upper respiratory infection Acute URI - (Added by TW Conv) ??? Asthma ??? Chondrocostal junction syndrome Costochondritis, acute - (Added by TW Conv) ??? Cyst of right ovary Right ovarian cyst - (Added by TW Conv) ??? Headache Headache, acute - (Added by TW Conv) ??? Hearing loss of left ear Loss of hearing, left - (Added by TW Conv) ??? Other specified sprain of right wrist, initial encounter Traumatic tear of triangular fibrocartilage complex (TFCC) of right wrist - (Added by TW Conv) ??? Pain in wrist Wrist joint pain - (Added by TW Conv) ??? Personal history of other diseases of the digestive system History of constipation - (Added by TW Conv) ??? Personal history of other diseases of the musculoskeletal system and connective tissue History of backache - (Added by TW Conv) ??? Personal history of other diseases of the respiratory system History of pharyngitis - (Added by TW Conv) ??? Personal history of other specified conditions History of dizziness - (Added by TW Conv) ??? Personal history of other specified conditions History of ataxia - (Added by TW Conv) ??? Postconcussional syndrome Postconcussion syndrome - (Added by TW Conv) ??? Right lower quadrant pain Abdominal pain, RLQ - (Added by TW Conv) ??? Sprain of left wrist Sprain of left wrist - (Added by TW Conv) Past Surgical History: Procedure Laterality Date ??? WRIST SURGERY HOME MEDICATIONS : citalopram (CeleXA) 20 mg tablet fluticasone-vilanterol (BREO ELLIPTA) 100-25 mcg/dose diskus inhaler albuterol (PROVENTIL,VENTOLIN) 1.25 mg/3 mL nebulizer solution albuterol HFA (PROVENTIL HFA,VENTOLIN HFA,PROAIR HFA) 90 mcg/actuation inhaler fluticasone propionate (FLONASE) 50 mcg/actuation nasal spray OB History No obstetric history on file. MODEL ARTISTS' History: No LMP recorded (within months). Menarche: 14 Menses: irregular, every 45-60 days, lasting 5 days, not painful Sexual History: Social History Substance and Sexual Activity Sexual Activity Not on file STD History: none Contraception: NA Family History Adopted: Yes Family history unknown: Yes Family History:No history of MODEL ARTISTS', breast or colon cancers, No history of VTEs. and No genetic defects or defects. Social History Tobacco Use ??? Smoking status: Never Smoker Substance Use Topics ??? Alcohol use: Not on file Lives with mother. Safe at home: Yes Objective Physical Exam: Temp: [96.8 ??F-98.4 ??F] 97.2 ??F Pulse: [59-76] 76 Resp: [16-23] 20 BP: (117-125)/(79-89) 117/83 General: NAD, mood appropriate Pulmonary: non-labored and clear to ausculation bilaterally Cardiovascular: Regular rate and rhythm Abdomen: soft, non-tender, non-distended, without rebound or guarding, minimally TTP in RLQ Extremities: Warm and well perfused Genital exam: deferred Labs/Imaging: Recent Labs Lab Units 07/21/19 0404 07/19/19 1336 WBC K/cumm 5.5 7.2 HEMOGLOBIN g/dL 10.5* 13.5 HEMATOCRIT % 33.0* 41.2 PLATELETS K/cumm 263 348 Imaging: Pelvic US 07/20: FINDINGS: ?? The urinary bladder is partially distended and does not cover the uterus entirely. ?? The uterus is adult female in configuration and size. The endometrial stripe measures 7 mm. The left ovary measures 2.7 x 2.0 x 1.3 cm for a volume of 3.6 cc. The right ovary measures 2.8 x 2.1 x 2.0 cm for a volume of 6 cc. There are no dominant cysts or masses. ?? Color Doppler evaluation with spectral waveform analysis was performed and shows normal arterial in both ovaries and a small amount of venous flow in the right ovary. There is color flow in both ovaries. ?? IMPRESSION: ?? Normal. CT A/P 07/21: IMPRESSION: ?? 1. Normal appendix. 2. Right ovarian corpus luteal cyst with mild free fluid in the cul-de-sac. Assessment/Plan: 19 y.o. G0 admitted for abdominopelvic pain #Pelvic pain -Pelvic US with bilateral arterial flow to ovaries, CT with right ovarian corpus luteum cyst with mild free fluid -Exam overall benign, minimal tenderness in RLQ -Pain likely consistent with 'ruptured' ovarian cyst with continued irritation due to free fluid -Recommend scheduled toradol (5 days) and tylenol -Counseled patient and mom that fluid will resorb on its own and no surgical intervention indicated #Irregular Menstrual Cycles -Menses every 45-60 days -Previously saw retail sales assistant in [place] with plans to start OCPs for cycle control -Unclear if further workup was done for irregular cycles, although irregularity most likely due to obesity and immature HPO axis -Please check FSH, TSH, prolactin, DHEAS, Total and Free Testosterone -If labs wnl, would recommend starting OCPs for cycle control and prevention of future ovarian cystformation D/w Dr. Epstein Will formally staff this afternoon Acacia Vick MD Research Animal Facility Supervisor PGY-4 Fellow Attestation: Patient discussed by phone with Dr. Allan Vick. Recommend supportive pain control with ATC NSAIDs and work up for oligomenorrhea, and patient can start OCPs to help regulate periods. Will discuss at length with patient and guardian this afternoon. Kerry Epstein MD Pediatric and Adolescent Gynecology Fellow I have seen and examined the patient on 07/22/2019 afternoon. I have made edits/changes to the noteas appropriate. I agree with the findings and plan of care in the fellow/resident's note with the following additions: Results for NINA COYNE ( ) as of 07/23/2019 20:01 Ref. Range 07/22/2019 09:46 DHEA-S Latest Units: mcg/dL 87 FSH Latest Units: IUnits/L 1.8 LH Latest Units: IUnits/L 4.6 Prolactin Latest Ref Range: 5.2 - 26.5 ng/mL 8.9 TSH Latest Ref Range: 0.30 - 4.20 mcIUnit/mL 0.99 - Counseled family on above and answered remaining questions - Given length since LMP, recommend repeat provera challenge to elicit withdraw bleed and then starting COCs following menstrual flow start. - Labs thus far returning reassuring, will call family with remaining lab results - Pt and family wish to continue to follow with [facility] closer to home, number given for PAG should additional questions or concerns arise Justyna Beltran MD Pediatric and Adolescent Gynecology CONDUCTOR CONDUCTOR CONDUCTOR CONDUCTOR * Juan Pulido MD - 07/20/2019 3:09 PM CST Pediatric Surgery History and Physical Examination Trauma Patient? : No Requesting Provider: Marianela Bruce MD Reason for Consult: To rule out acute appendicitis Presenting Complaint: 3 day history of abdominal pain, nausea and decreased appetite. History of Presenting Complaint: The patient is a 19 year old female who presented to the ED on the morning of 07/19/2019 with a three day history of abdominal pain, nausea and decreased appetite. The patient reports that she was inher usual state of health till this Thursday when she began complaining of abdominal pain that was initially periumbilical but has since migrated to the RLQ. She reports that the pain is sharp, stabbing in nature and has been consistent over the past 3 days. She notes an association with food whereinthe pain and nausea are increased when she eats. Since starting on Thursday, the patient does not report any improvement in her pain / overall condition. After consulting her local [place] truck driver on Thursday, the patient was brought to the ED by her mother and was worked up for potential causes of abdominal pain and admitted to the Pediatric Medicine service. Of note, at presentation she was afebrile and has remained afebrile during her admission to date. HerWBC was within normal limits and she has not had any episodes of emesis since admission. Her ultrasound was non-diagnostic for appendicitis as the appendix was not visualized Pediatric surgery was consulted to evaluate this patient for potential appendicitis and the need for potential additional imaging / surgical intervention. Past Medical History: Asthma Anxiety Depression Past Surgical History: Surgical repair of wrist fracture Home Medications: Citalopram 20 mg / day Obstetric and Gynecological History: Menarche at 12-13 years Reports irregular menstrual cycles; LMP in May No menorrhagia Pediatric History: Born at term via normal vaginal delivery Is adopted and mother is unaware of any additional history Her mother reports normal post- development and growth; reports routine pediatric follow-ups Immunizations are up to date and current Review of Systems: General: Reports chills. Denies fevers or malaise Skin: Denies rashes, sores. Head: Reports history of headache / migraine. Eyes: Denies vision change, glaucoma. Respiratory: Denies cough, sputum, hemoptysis, TB, pneumonia. No hx asthma, dyspnea, or dyspnea on exertion. Cardiac: No MD, HTN or palpitations. Gastrointestinal: Reports nausea, abdominal pain, and a decreased oral intake. Denies dyspepsia, vomiting, vomiting of blood, change in bowel habits, rectal bleeding or black/tarry stools, diarrhea, constipation Urinary: Denies polyuria, dysuria, nocturia, hesitancy, incontinence, infections, reduced force or stream. Vascular: Denies intermittent, claudication, leg cramps, thrombophlebitis. No PE/DVT. Musculoskeletal: Denies gout, systemic arthritis. Neurological: Denies fainting, blackouts, seizures, paralysis, tremors, numbness, gait change. Denies CVA Hematological: Denies easy bruising or bleeding, past transfusion reactions. Endocrine: Denies hypothyroidism or diabetes. Psychiatric: Reports depression / anxiety. Physical Examination: General: The patient is lying comfortably on their bed and does not appear to be in any acute distress or discomfort. HEENT: Neck supple, Thyroid examination is normal, no LAP. Neurological: The patient is alert and oriented x 4, is able to move all four extremities spontaneously and does not demonstrate any sensory or motor deficits in any of their four extremities. Respiratory: Normal vesicular breathing, bilateral equal air entry, no added sounds. Cardiovascular: Normal rate and rhythm, no added sounds. Abdomen: Soft, protuberant abdomen, tender to palpation in right lower quadrant and periumbilical area, no evidence of any organomegaly. Laboratory and Radiological Examinations: No results found for this or any previous visit (from the past 24 hour(s)). Vitals: 24hr Min/Max: Temp Min: 36.2 ??C (97.2 ??F) Max: 36.7 ??C (98.1 ??F) Pulse Min: 62 Max: 108 BP Min: 106/52 Max: 147/85 Resp Min: 16 Max: 20 SpO2 Min: 98 % Max: 100 % Most Recent : Vitals: 07/20/19 1208 BP: 124/78 Pulse: 75 Resp: 18 Temp: 36.6 ??C (97.9 ??F) SpO2: 99% I/O last 2 completed shifts: In: 3496 [P.O.:50; I.V.:1446; IV Piggyback:2000] Out: 1000 [Urine:1000] I/O this shift: In: 932 [P.O.:200; I.V.:732] Out: 300 [Urine:300] Assessment/Plan Assessment: Active Problems: Abdominal pain Asthma Anxiety 19 year old female with a 3 day history of abdominal pain localized to the RLQ, nausea, and decreased per oral intake. Has not had any febrile episodes or any episodes of emesis. Currently has no elevation in her WBC, a normal pelvic ultrasound and a non-diagnostic ultrasound of the appendix. Given her current signs and symptoms, acute appendicitis is less likely and would consider additional causes of her abdominal pain. Plan: 1. Resume pediatric regular diet as tolerated 2. Do not recommend any further imaging at this time, however, differ to the primary team regardingthe need for a CT scan at this moment. 3. Would recommend to repeat a CBC tomorrow AM; if the patient has an elevated WBC count, we will re-evaluate for the need for performing a CT abdomen + pelvic to investigate the cause of her WBC 4. Rest of the plan as per the primary team 5. Will continue to follow as a consult and will re-evaluate tomorrow for any changes to her clinical exam and her laboratory investigations performed. 6. No surgical interventions are necessary at this time Juan Pulido MD PGY-1 General Surgery [phone] 07/20/19 Thank you for including us in the care of this patient. If you have any questions, please call the on-call Pediatric Surgery resident / team. Cosigned by Maggie Anguiano MD at 07/23/2019 3:13 PM YARD CONDUCTOR CONDUCTOR CONDUCTOR Associated attestation - Maggie Anguiano MD - 07/23/2019 3:13 PM YARD CONDUCTOR I have seen and examined the patient on 07/21/19. I agree with the findings and plan of care as documented in the resident's/fellow's note and as discussed with the resident/fellow. Patient is a 19 year old girl with history of asthma and irregular menses who develop abdominal pain and nausea on 07/16/19. She has not had fever. She was admitted to [facility] on 07/19/19. She underwent ultrasound that showed normal ovaries and no evidence of appendicitis, although the appendix was not identified. She reports continued, constant RLQ abdominal pain and nausea. On exam, she is minimally ill appearing. Her abdomen is soft, nondistended and mildly tender to palpation and percussion in the RLQ. Her WBC is 5.5 with 39% neutrophils. Abdomen/pelvis CT scan that I reviewed shows a normal appendix. Her small bowel and colon also appear normal. Impression/Plan: Abdominal pain of uncertain etiology. Her history and imaging are not suggestive of a surgical etiology for her pain. Possible diagnoses include mild viral infection/mesenteric adenitis, less likely ovarian cysts. No specific recommendations at this time. I discussed her imaging findings and possible etiologies with the patient, her mother, and Dr. Bruce. documented in this encounter Nursing Notes * Magnolia Hicks RN - 07/23/2019 3:27 PM CST Reviewed discharge instructions with mom who verbalized understanding. CONDUCTOR documented in this encounter ED Notes * Sherly Vitale NP - 07/19/2019 2:38 PM CST HPI Chief Complaint Patient presents with ??? Abdominal Pain 19 yr old F with pmh of asthma who presents with nausea and abd pain. Pt reports onset of anorexia and nausea 4 days ago. Yesterday developed RLQ abd pain and right lower back pain. No hx of fever, vomiting, diarrhea. Pt was evaluated by her PMD yesterday, given Zofran 4mg and UA. UA was unremarkable and Zofran did not improve nausea or abd pain. No hx of dysuria, urinary frequency or urgency. Ptdenies vagina discharge or irritation. (+) PO intake of fluids although decreased appetite. Pt reports eating increases abd pain and nausea. She reports anorexia and a bland diet over the last 4 days. No recent or current URI symptoms. Denies recent use of her Albuterol inhaler or asthma excerbations. Recently started taking Celexa for anxiety and depression. Increased dosing from 10mg to 20mg two days ago. No hx of constipation, stools daily w/o straining. Hx of irregular menses followed by [facility] and starting BC. Sexual Health hx: Pt identifies as female, and is attracted to Men only. Denies sexual activity or previous hx of sexual intercourse. Patient History Patient Active Problem List Diagnosis Date Noted ??? Vitamin D deficiency 08/17/2018 ??? Irregular menses 08/17/2018 ??? 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 Abnormal electrocardiography 01/19/2017 Class: Chronic ??? Obesity 02/22/2015 Class: Chronic ??? Asthma, moderate persistent, well-controlled 02/22/2015 Class: Chronic ??? Migraine headache 07/10/2014 Class: Chronic Past Medical History: Diagnosis Date ??? Acute upper respiratory infection Acute URI - (Added by TW Conv) ??? Asthma ??? Chondrocostal junction syndrome Costochondritis, acute - (Added by TW Conv) ??? Cyst of right ovary Right ovarian cyst - (Added by TW Conv) ??? Headache Headache, acute - (Added by TW Conv) ??? Hearing loss of left ear Loss of hearing, left - (Added by TW Conv) ??? Other specified sprain of right wrist, initial encounter Traumatic tear of triangular fibrocartilage complex (TFCC) of right wrist - (Added by TW Conv) ??? Pain in wrist Wrist joint pain - (Added by TW Conv) ??? Personal history of other diseases of the digestive system History of constipation - (Added by TW Conv) ??? Personal history of other diseases of the musculoskeletal system and connective tissue History of backache - (Added by TW Conv) ??? Personal history of other diseases of the respiratory system History of pharyngitis - (Added by TW Conv) ??? Personal history of other specified conditions History of dizziness - (Added by TW Conv) ??? Personal history of other specified conditions History of ataxia - (Added by TW Conv) ??? Postconcussional syndrome Postconcussion syndrome - (Added by TW Conv) ??? Right lower quadrant pain Abdominal pain, RLQ - (Added by TW Conv) ??? Sprain of left wrist Sprain of left wrist - (Added by TW Conv) Past Surgical History: Procedure Laterality Date ??? WRIST SURGERY History reviewed. No pertinent family history. Social History Tobacco Use ??? Smoking status: [...] Systems Review of Systems Constitutional: Positive for activity change and appetite change. Negative for fever. HENT: Negative. Negative for congestion, rhinorrhea and sore throat. Eyes: Negative. Respiratory: Negative. Negative for cough and shortness of breath. Cardiovascular: Negative. Negative for chest pain. Gastrointestinal: Positive for abdominal pain and nausea. Negative for abdominal distention, blood in stool, constipation, diarrhea and vomiting. Endocrine: Negative. Genitourinary: Positive for difficulty urinating and flank pain ( right). Negative for dysuria, hematuria, vaginal bleeding, vaginal discharge and vaginal pain. Skin: Negative. Negative for rash. Allergic/Immunologic: Negative. Negative for food allergies. Neurological: Negative. Negative for dizziness. Hematological: Negative. Psychiatric/Behavioral: Negative. Breast: Negative. Physical Exam ED Triage Vitals Temp Pulse Resp BP SpO2 07/19/19 1058 07/19/19 1058 07/19/19 1343 07/19/19 1101 07/19/19 1058 36.5 ??C (97.7 ??F) 80 18 120/86 97 % Temp src Heart Rate Source Patient Position BP Location FiO2 (%) 07/19/19 1343 07/19/19 1343 07/19/19 1343 07/19/19 1343 -- Temporal Apical Sitting Left arm Physical Exam Vitals signs and nursing note reviewed. Constitutional: General: She is not in acute distress. Appearance: She is well-developed. She is obese. She is not ill-appearing. HENT: Head: Normocephalic. Mouth/Throat: Mouth: Mucous membranes are moist. Pharynx: Oropharynx is clear. No pharyngeal swelling or oropharyngeal exudate. Eyes: Extraocular Movements: Extraocular movements intact. Pupils: Pupils are equal, round, and reactive to light. Cardiovascular: Rate and Rhythm: Normal rate and regular rhythm. Heart sounds: Normal heart sounds. No murmur. Pulmonary: Effort: Pulmonary effort is normal. No respiratory distress. Breath sounds: Normal breath sounds. No wheezing. Chest: Chest wall: No tenderness. Abdominal: General: Abdomen is flat. Bowel sounds are normal. There is no distension. There are no signs of injury. Palpations: Abdomen is soft. Tenderness: There is tenderness in the right lower quadrant. There is right CVA tenderness. There is no guarding. Negative signs include obturator sign. Skin: General: Skin is warm. Capillary Refill: Capillary refill takes less than 2 seconds. Neurological: General: No focal deficit present. Mental Status: She is alert and oriented to person, place, and time. Psychiatric: Mood and Affect: Mood normal. Behavior: Behavior normal. MDM MDM Number of Diagnoses or Management Options Nausea: Right lower quadrant abdominal pain: Diagnosis management comments: 19 yr old F with pmh of asthma who presents with 5 days of nausea and 24 hours of RLQ abd pain and R CVA tenderness. No hx of URI symptoms, fever, diarrhea, constipation, dysuria, or vomiting. Five day hx of anorexia, bland diet and decreased activity. Abd pain is associated with eating, mild pain with activity. Less likely constipation given no previous hx, stools daily and w/o straining. Less likely UTI given no dysuria, fever, and or vomiting. No concern for pneumonia given no hx of URI symptoms, coughing, or SOB. Differentials include less likely appendicitis given no fever, Gallstones, cholecystitis, vs pancreatitis. Consider abd migraines , GERD or Gastritis Will obtain Urine, macro, micro, urine cx CBC, amylase, lipase, whole blood lytes Ultrasound of the gallbladder. NS bolus 1L Amount and/or Complexity of Data Reviewed Clinical lab tests: reviewed Tests in the radiology section of CPT??: reviewed US Gallbladder Final Result Normal gallbladder. Dictated by: Luciano Rivas M.D. The radiology attending physician has personally reviewed this study, and had reviewed and/or edited this written report and agrees with it. Electronically signed by: Romie Fierro M.D. ED Course as of Jul 19 1838 Time: 07/19 121 Comment: US obtained for teaching purposes. Follow-up imaging not ordered at time of US. Performed by Dr. Robles. By: Nick Robles MD Time: 07/19 153 Comment: Urine Hcg Negtive. CBC, lipase, amylase, whole blood lytes are unremarkable. UA unremarkable. Pt continues with abd pain and nausea, will give dose of Zofran 8mg and reassess. By: Sherly Vitale NP Time: 07/19 7540 Comment: After receiving 8mg of Zofran with no improvement of abd pain and nausea. Will try Pepcid (H2 sara) and Maalox due to anorexia and nausea associated with eating. Family updated on plan of care. By: Sherly Vitale NP Time: 07/19 3103 Comment: Pt reports no improvement of symptoms after Zofran, Maalox and Pepcid. Pain is 8/10 with worsening nausea and continued RLQ abd pain. Will plan for admission given no improvement of abd discomfort and anorexia. Family agrees with plan of care. Will attempt PO intake in ED. By: Sherly Vitale NP Time: 07/19 1711 Comment: Signout received from Dr. Cade at shift change. 19yo F with obesity here with RUQ abd pain, nausea, vomiting, anorexia. RUQ US with normal gallbladder. Labs including CBC, CMP, lipase, UA, urine hcg unremarkable. Given continued symptoms despite zofran, maalox, pepcid with 8/10 pain will admit for serial abd exams and observation. By: Earlene Bartlett MD Time: 07/19 1817 Comment: Sign out to 10th floor. Migraine cocktail ordered for continued nausea. Ketoralac, Compazine, and Benadryl. D5 NS at 1.5 x maintenance. Will start medications prior to floor transfer. By: Sherly Vitale NP Right lower quadrant abdominal pain, Active Nausea Sherly Vitale NP 07/20/19 1241 CONDUCTOR * Anne No RN - 07/19/2019 11:29 AM CST Bed: ED1-32 Expected date: 07/19/19 Expected time: Means of arrival: Car Comments: Anne No RN 07/19/19 1129 CONDUCTOR * Janna Salinas, RN - 07/19/2019 11:[address] yesterday; checked a urine test there. CONDUCTOR * Janna Salinas RN - 07/19/2019 10:51 AM CST Nauseated since Thursday; pain started yesterday. RLQ pain. No fever. Not eating. CONDUCTOR documented in this encounter Miscellaneous Notes * Plan of Care - Ela Jones RN - 07/23/2019 12:45 PM YARD CONDUCTOR Problem: Lack of Knowledge: Goal: Ability to [...] about self will improve Outcome: Progressing Problem: Health Behavior: Goal: Understanding of discharge needs will improve Outcome: Progressing Problem: Lack of Knowledge: Goal: Verbalization of understanding the information provided will improve Outcome: Progressing Problem: Fluid Volume: Goal: Maintenance of adequate hydration will improve Outcome: Progressing Goal: Will show no signs and symptoms of electrolyte imbalance Outcome: Progressing Problem: Nutritional: Goal: Maintenance of adequate nutrition will improve Outcome: Progressing Problem: Activity: Goal: Risk for activity intolerance will decrease Outcome: Progressing Problem: Nutritional: Goal: Nutritional status will be supported Outcome: Progressing Problem: Fluid Volume: Goal: Maintenance of adequate hydration will improve Outcome: Progressing Problem: Health Behavior: Goal: Ability to state signs and symptoms to report to health care provider will improve Outcome: Progressing Goals: Clinical Goals for the Shift: Increase PO intake, maintain adequate pain control, possible discharge home CONDUCTOR * Assessment & Plan Note - Lisa Rivero MD - 07/23/2019 12:26 PM YARD CONDUCTOR Associated Problem(s): Anxiety Followed by therapist, patient states that therapy [...] attempts or self-harm. - celexa 20mg qHS CONDUCTOR * Assessment & Plan Note - Lisa Rivero MD - 07/23/2019 12:26 PM YARD CONDUCTOR Associated Problem(s): Asthma History of numerous hospitalizations due to asthma exacerbations in childhood, with several day long stay in PICU 5 or 6 years ago (no intubations). Asthma presently well-controlled on regimen of qHSbreo inhaler, with no hospitalizations or exacerbations in last several years. - continue qHS breo - albuterol PRN q4hrs CONDUCTOR * Assessment & Plan Note - Lisa Rivero MD - 07/23/2019 12:11 PM YARD CONDUCTOR Associated Problem(s): Abdominal pain 19 year old girl with PMH obesity, asthma, anxiety here with abdominopelvic pain. Cause of abdominal pain is likely ruptured ovarian cyst. Clinically her pain is getting better, rated as a 6/10. - CTabdo/pelvis: appendix within normal limits, ovarian cyst with small amount of free fluid in posterior cul-de-sac. Prolactin:8.9 LH:4.6 FSH:1.8 TSH:wnl Plan: - Consider discharge if meets oral intake - discontinue iv fluids -encourage oral intake - regular diet, POAL [facility] following -Scheduled tylenol and toradol q6hr for pain -start OCP with discharge and f/u with gynecology -f/u DHES-A, Testosterone results CONDUCTOR CONDUCTOR * Subjective & Objective - Lisa Rivero MD - 07/23/2019 12:07 PM YARD CONDUCTOR Pediatric Daily Progress Note Subjective 19 year old female with abdominopelvic pain presumed ruptured ovarian cyst. Interval History: Nina's pain 02/07 overnight. She had 90 ml oral intake, feels nauseated but did not vomit. Vitals remained stable. Urine output 1.2ml/kg/hour. Objective Vitals: Vitals 24 hour ranges: Temp: [36.5 ??C (97.7 ??F)-36.9 ??C (98.4 ??F)] Pulse: [57-66] Resp: [12-20] BP: (107-117)/(71-80) CAB 24 hr Ranges: 0 I/O last 2 completed shifts: In: 2254 [P.O.:90; I.V.:2164] Out: 3050 [Urine:3050] I/O this shift: In: 340 [P.O.:130; I.V.:210] Out: 850 [Urine:850] Physical Exam: Physical Exam Constitutional: General: She is not in acute distress. Appearance: Normal appearance. She is well-developed. She is obese. HENT: Head: Normocephalic and atraumatic. Right Ear: Tympanic membrane normal. Left Ear: Tympanic membrane normal. Nose: Nose normal. No congestion or rhinorrhea. Mouth/Throat: Mouth: Mucous membranes are moist. Pharynx: Oropharynx is clear. Eyes: Extraocular Movements: [...] Palpations: Abdomen is soft. Tenderness: There is tenderness in the right lower quadrant, periumbilical area and suprapubic area. There is no right CVA tenderness, left CVA tenderness, guarding or rebound. Negative signs includeMurphy's sign, Rovsing's sign, McBurney's sign and psoas sign. Hernia: No hernia is present. Musculoskeletal: Normal range of motion. General: No swelling or tenderness. Skin: General: Skin is warm and dry. Capillary Refill: Capillary refill takes less than 2 seconds. Findings: No rash. Neurological: General: No focal deficit present. Mental Status: She is alert and oriented to person, place, and time. Mental status is at baseline. Psychiatric: Mood and Affect: Mood normal. Behavior: Behavior normal. Lab/Radiology/Diagnostic Review: Laboratory review: Lab results in the last 24 hours: no new lab work. CONDUCTOR * Plan of Care - Abner Kellogg RN - 07/23/2019 2:08 AM CST Goals: Clinical Goals for the Shift: Develop plan for pain, increase mobility and possible discharge home Problem: Lack of Knowledge: Goal: Ability to [...] about self will improve Outcome: Progressing Problem: Health Behavior: Goal: Understanding of discharge needs will improve Outcome: Progressing Problem: Lack of Knowledge: Goal: Verbalization of understanding the information provided will improve Outcome: Progressing Problem: Fluid Volume: Goal: Maintenance of adequate hydration will improve Outcome: Progressing Goal: Will show no signs and symptoms of electrolyte imbalance Outcome: Progressing Problem: Nutritional: Goal: Maintenance of adequate nutrition will improve Outcome: Progressing Problem: Activity: Goal: Risk for activity intolerance will decrease Outcome: Progressing Problem: Nutritional: Goal: Nutritional status will be supported Outcome: Progressing Problem: Fluid Volume: Goal: Maintenance of adequate hydration will improve Outcome: Progressing Problem: Health Behavior: Goal: Ability to state signs and symptoms to report to health care provider will improve Outcome: Progressing CONDUCTOR * Plan of Care - Ela Jones RN - 07/22/2019 7:41 AM YARD CONDUCTOR Problem: Lack of Knowledge: Goal: Ability to [...] about self will improve Outcome: Progressing Problem: Health Behavior: Goal: Understanding of discharge needs will improve Outcome: Progressing Problem: Lack of Knowledge: Goal: Verbalization of understanding the information provided will improve Outcome: Progressing Problem: Fluid Volume: Goal: Maintenance of adequate hydration will improve Outcome: Progressing Goal: Will show no signs and symptoms of electrolyte imbalance Outcome: Progressing Problem: Nutritional: Goal: Maintenance of adequate nutrition will improve Outcome: Progressing Problem: Activity: Goal: Risk for activity intolerance will decrease Outcome: Progressing Problem: Nutritional: Goal: Nutritional status will be supported Outcome: Progressing Problem: Fluid Volume: Goal: Maintenance of adequate hydration will improve Outcome: Progressing Problem: Health Behavior: Goal: Ability to state signs and symptoms to report to health care provider will improve Outcome: Progressing Goals: Clinical Goals for the Shift: Develop plan for pain, increase mobility and possible discharge home CONDUCTOR * Assessment & Plan Note - Cris Espinoza MD - 07/22/2019 7:17 AM YARD CONDUCTOR Associated Problem(s): Anxiety Followed by therapist, patient states that therapy [...] attempts or self-harm. - celexa 20mg qHS CONDUCTOR * Assessment & Plan Note - Cris Espinoza MD - 07/22/2019 7:17 AM YARD CONDUCTOR Associated Problem(s): Asthma History of numerous hospitalizations due to asthma exacerbations in childhood, with several day long stay in PICU 5 or 6 years ago (no intubations). Asthma presently well-controlled on regimen of qHSbreo inhaler, with no hospitalizations or exacerbations in last several years. - continue qHS breo - albuterol PRN q4hrs CONDUCTOR CONDUCTOR * Assessment & Plan Note - Cris Espinoza MD - 07/22/2019 7:16 AM YARD CONDUCTOR Associated Problem(s): Abdominal pain 19 year old girl with PMH obesity, asthma, anxiety here with RLQ abdominal pain. Cause of abdominalpain is still unclear. Clinically her pain is [...] amount of free fluid in posterior cul-de-sac -[employer]' following -Schd tylenol and toradol q6hr for pain - f/u FSH, LH, prolactin, DHEAS, free and total testerone; if wnl can start OCP CONDUCTOR CONDUCTOR * Subjective & Objective - Cris Espinoza MD - 07/22/2019 7:15 AM YARD CONDUCTOR Pediatric Daily Progress Note Subjective Chief complaint of RLQ abdominal pain. Interval History: Nina's pain was unchanged overnight. She was able to have a few bites of dinner last night and got up and walked around the floor. Objective Vitals: Vitals 24 hour ranges: Temp: [36 ??C (96.8 ??F)-36.9 ??C (98.4 ??F)] Pulse: [59-76] Resp: [16-23] BP: (117-125)/(79-89) CAB 24 hr Ranges: 0 I/O last 2 completed shifts: In: 4867.1 [P.O.:160; I.V.:2707.1; IV Piggyback:2000] Out: 3820 [Urine:3820] No intake/output data recorded. Physical Exam: Physical Exam Constitutional: General: She is not in acute distress. Appearance: Normal appearance. She is well-developed. She is obese. HENT: Head: Normocephalic and atraumatic. Right Ear: Tympanic membrane normal. Left Ear: Tympanic membrane normal. Nose: Nose normal. No congestion or rhinorrhea. Mouth/Throat: Mouth: Mucous membranes are moist. Pharynx: Oropharynx is clear. Eyes: Extraocular Movements: [...] Palpations: Abdomen is soft. Tenderness: There is tenderness in the right lower quadrant. There is no guarding. Negative signs include Rovsing's sign, McBurney's sign and psoas sign. Musculoskeletal: Normal range of motion. General: No swelling or tenderness. Skin: General: Skin is warm and dry. Capillary Refill: Capillary refill takes less than 2 seconds. Findings: No rash. Neurological: General: No focal deficit present. Mental Status: She is alert and oriented to person, place, and time. Mental status is at baseline. Psychiatric: Mood and Affect: Mood normal. Behavior: Behavior normal. Lab/Radiology/Diagnostic Review: Laboratory review: Lab results in the last 24 hours: no new lab work. Radiology Results: Us Abdomen Limited Result Date: 07/20/2019 Appendix not visualized, no definitive secondary signs of appendicitis. Exam limited due to the patient's body habitus. Electronically signed by: Romie Fierro M.D. Us Gallbladder Result Date: 07/19/2019 Normal gallbladder. Dictated by: Luciano Rivas M.D. The radiology attending physician has personally reviewed this study, and had reviewed and/or edited this written report and agrees with it.Electronically signed by: Romie Fierro M.D. Us Pelvis And Ovarian Doppler Limited Result Date: 07/20/2019 Normal. Dictated by: Pipe Lopes The radiology attending physician has personally reviewed this study, and had reviewed and/or edited this written report and agrees with it. CONDUCTOR * Plan of Care - Aileen Ivey RN - 07/21/2019 8:38 PM YARD CONDUCTOR Goals: Clinical Goals for the Shift: increase PO, pain control Summary: Problem: Lack of Knowledge: Goal: Ability to [...] about self will improve Outcome: Progressing Problem: Health Behavior: Goal: Understanding of discharge needs will improve Outcome: Progressing Problem: Lack of Knowledge: Goal: Verbalization of understanding the information provided will improve Outcome: Progressing Problem: Fluid Volume: Goal: Maintenance of adequate hydration will improve Outcome: Progressing Goal: Will show no signs and symptoms of electrolyte imbalance Outcome: Progressing Problem: Nutritional: Goal: Maintenance of adequate nutrition will improve Outcome: Progressing Problem: Activity: Goal: Risk for activity intolerance will decrease Outcome: Progressing Problem: Nutritional: Goal: Nutritional status will be supported Outcome: Progressing Problem: Fluid Volume: Goal: Maintenance of adequate hydration will improve Outcome: Progressing Problem: Health Behavior: Goal: Ability to state signs and symptoms to report to health care provider will improve Outcome: Progressing CONDUCTOR * Plan of Oscar - Ela Jones RN - 07/21/2019 12:54 PM YARD CONDUCTOR Problem: Lack of Knowledge: Goal: Ability to [...] about self will improve Outcome: Progressing Problem: Health Behavior: Goal: Understanding of discharge needs will improve Outcome: Progressing Problem: Lack of Knowledge: Goal: Verbalization of understanding the information provided will improve Outcome: Progressing Problem: Fluid Volume: Goal: Maintenance of adequate hydration will improve Outcome: Progressing Goal: Will show no signs and symptoms of electrolyte imbalance Outcome: Progressing Problem: Nutritional: Goal: Maintenance of adequate nutrition will improve Outcome: Progressing Problem: Activity: Goal: Risk for activity intolerance will decrease Outcome: Progressing Problem: Nutritional: Goal: Nutritional status will be supported Outcome: Progressing Problem: Fluid Volume: Goal: Maintenance of adequate hydration will improve Outcome: Progressing Problem: Health Behavior: Goal: Ability to state signs and symptoms to report to health care provider will improve Outcome: Progressing Goals: Clinical Goals for the Shift: Continue IV fluids and PRN meds as needed for pain CONDUCTOR * Assessment & Plan Note - Cris Espinoza MD - 07/21/2019 7:29 AM YARD CONDUCTOR Associated Problem(s): Anxiety Followed by therapist, patient states that therapy [...] attempts or self-harm. - celexa 20mg qHS CONDUCTOR * Assessment & Plan Note - Cris Espinoza MD - 07/21/2019 7:29 AM YARD CONDUCTOR Associated Problem(s): Asthma History of numerous hospitalizations due to asthma exacerbations in childhood, with several day long stay in PICU 5 or 6 years ago (no intubations). Asthma presently well-controlled on regimen of qHSbreo inhaler, with no hospitalizations or exacerbations in last several years. - continue qHS breo - albuterol PRN q4hrs CONDUCTOR * Assessment & Plan Note - Cris Espinoza MD - 07/21/2019 7:27 AM YARD CONDUCTOR Associated Problem(s): Abdominal pain 19 year old girl with PMH obesity, asthma, anxiety here with RLQ abdominal pain. Cause of abdominalpain is still unclear. Clinically her pain is [...] amount of free fluid in posterior cul-de-sac CONDUCTOR CONDUCTOR * Subjective & Objective - Cris Espinoza MD - 07/21/2019 7:23 AM YARD CONDUCTOR Pediatric Daily Progress Note Subjective Chief complaint of RLQ abdominal pain. Interval History: Nina had increased pain last night, without resolution with tylenol. NSB seemed to improve the pain to a 6/10. Nina slept poorly due to pain and discomfort. Per mom her pain has incrementally worsened. Pain is a 7/10 this AM. Per mom, she has never presented in a stereotypical way when she's been sick in the past and so she remains concerned about appendicitis. Objective Vitals: Vitals 24 hour ranges: Temp: [36.3 ??C (97.3 ??F)-36.9 ??C (98.4 ??F)] Pulse: [62-88] Resp: [16-22] BP: (124-132)/(68-87) CAB 24 hr Ranges: 0 I/O last 2 completed shifts: In: 3652 [P.O.:575; I.V.:2077; IV Piggyback:1000] Out: 1525 [Urine:1525] No intake/output data recorded. Physical Exam: Physical Exam Constitutional: General: She is not in acute distress. Appearance: Normal appearance. She is well-developed. She is obese. HENT: Head: Normocephalic and atraumatic. Right Ear: Tympanic membrane normal. Left Ear: Tympanic membrane normal. Nose: Nose normal. No congestion or rhinorrhea. Mouth/Throat: Mouth: Mucous membranes are moist. Pharynx: Oropharynx is clear. Eyes: Extraocular Movements: [...] Palpations: Abdomen is soft. Tenderness: There is tenderness in the right lower quadrant. There is rebound. There is no guarding. Positive signs include obturator sign. Negative signs include Rovsing's sign, McBurney's sign and psoas sign. Musculoskeletal: Normal range of motion. General: No swelling or tenderness. Skin: General: Skin is warm and dry. Capillary Refill: Capillary refill takes less than 2 seconds. Findings: No rash. Neurological: General: No focal deficit present. Mental Status: She is alert and oriented to person, place, and time. Mental status is at baseline. Psychiatric: Mood and Affect: Mood normal. Behavior: Behavior normal. Lab/Radiology/Diagnostic Review: Laboratory review: Lab results in the last 24 hours: Recent Results (from the past 24 hour(s)) CBC with auto differential Collection Time: 07/21/19 4:04 AM Result Value Ref Range WBC 5.5 3.8 - 9.9 K/cumm Hgb 10.5 (L) 11.9 - 15.5 g/dL Hct 33.0 (L) 35.6 - 45.5 % Plt 263 150 - 400 K/cumm MPV 9.7 9.1 - 12.3 fL RBC 3.71 (L) 3.90 - 5.20 M/cumm MCV 88.9 81.3 - 96.4 fL MCH 28.3 27.1 - 33.3 pg MCHC 31.8 (L) 32.3 - 35.7 g/dL RDW CV 13.3 11.1 - 14.9 % RDW SD 43.6 35.7 - 48.1 fL NRBC abs 0.00 0.00 - 0.01 K/cumm Differential, auto Collection Time: 07/21/19 4:04 AM Result Value Ref Range Neutrophil abs 2.2 1.7 - 6.5 K/cumm Imm gran abs 0.0 0.0 - 0.1 K/cumm Lymphocyte abs 2.5 0.8 - 3.3 K/cumm Monocyte abs 0.6 0.2 - 0.8 K/cumm Eosinophil abs 0.2 0.0 - 0.5 K/cumm Basophil abs 0.1 0.0 - 0.1 K/cumm Neutrophil pct 38.9 % Imm gran pct 0.4 % Lymphocyte pct 45.5 % Monocyte pct 10.3 % Eosinophil pct 3.8 % Basophil pct 1.1 % Radiology Results: Us Abdomen Limited Result Date: 07/20/2019 Appendix not visualized, no definitive secondary signs of appendicitis. Exam limited due to the patient's body habitus. Electronically signed by: Romie Fierro M.D. Us Gallbladder Result Date: 07/19/2019 Normal gallbladder. Dictated by: Luciano Rivas M.D. The radiology attending physician has personally reviewed this study, and had reviewed and/or edited this written report and agrees with it.Electronically signed by: Romie Fierro M.D. Us Pelvis And Ovarian Doppler Limited Result Date: 07/20/2019 Normal. Dictated by: Pipe Lopes The radiology attending physician has personally reviewed this study, and had reviewed and/or edited this written report and agrees with it. CONDUCTOR CONDUCTOR * Plan of Care - Aileen Ivey RN - 07/20/2019 8:42 PM YARD CONDUCTOR Goals: Clinical Goals for the Shift: pain control Summary: Problem: Lack of Knowledge: Goal: Ability to [...] about self will improve Outcome: Progressing Problem: Health Behavior: Goal: Understanding of discharge needs will improve Outcome: Progressing Problem: Lack of Knowledge: Goal: Verbalization of understanding the information provided will improve Outcome: Progressing Problem: Fluid Volume: Goal: Maintenance of adequate hydration will improve Outcome: Progressing Goal: Will show no signs and symptoms of electrolyte imbalance Outcome: Progressing Problem: Nutritional: Goal: Maintenance of adequate nutrition will improve Outcome: Progressing Problem: Activity: Goal: Risk for activity intolerance will decrease Outcome: Progressing Problem: Nutritional: Goal: Nutritional status will be supported Outcome: Progressing Problem: Fluid Volume: Goal: Maintenance of adequate hydration will improve Outcome: Progressing Problem: Health Behavior: Goal: Ability to state signs and symptoms to report to health care provider will improve Outcome: Progressing CONDUCTOR * Hospital Course - Lisa Rivero MD - 07/20/2019 11:16 AM CST Nina Coyne was admitted to the floor for abdominal pain and nausea. Pain was controlled overnightwith NSB, toradol/compazine and benadryl. Abdominal ultrasound on 07/20 was wnl, appendix not visualized but no secondary indicators of acute appendicitis; pelvic ultrasound with doppler was wnl which excluded ovarian torsion. Due to continued pain and rebound tenderness on exam a CT abdomen/pelviswith contrast was done. Appendix was wnl, there was a ovarian cyst present with a small amount of fluid in the cul-de-sac which may have explained some of her pain. Gynecology was consulted and it was thought that she likely had a cyst which was slowly leaking causing the length of abdominal pain. Lab work (FSH, LH, prolactin were wnl; DHEA-S total and free testosterone are pending) . 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 CONDUCTOR CONDUCTOR CONDUCTOR CONDUCTOR * Plan of Care - Antonette Cage RN - 07/20/2019 8:44 AM CST Problem: Lack of Knowledge: Goal: [...] and security will increase Outcome: Progressing Problem: Health Behavior: Goal: Understanding of discharge needs will improve Outcome: Progressing Problem: Lack of Knowledge: Goal: Verbalization of understanding the information provided will improve Outcome: Progressing Problem: Fluid Volume: Goal: Maintenance of adequate hydration will improve Outcome: Progressing Goal: Will show no signs and symptoms of electrolyte imbalance Outcome: Progressing Problem: Nutritional: Goal: Maintenance of adequate nutrition will improve Outcome: Progressing Problem: Activity: Goal: Risk for activity intolerance will decrease Outcome: Progressing Problem: Nutritional: Goal: Nutritional status will be supported Outcome: Progressing Problem: Fluid Volume: Goal: Maintenance of adequate hydration will improve Outcome: Progressing Problem: Health Behavior: Goal: Ability to state signs and symptoms to report to health care provider will improve Outcome: Progressing Goals: Clinical Goals for the Shift: Patient will have adequate pain control and decreased nausea Summary: CONDUCTOR * Assessment & Plan Note - Keara Guillory MD - 07/20/2019 1:13 AM CSTAssociated Problem(s): Anxiety Followed by therapist, patient states that therapy [...] attempts or self-harm. - celexa 20mg qHS CONDUCTOR * Assessment & Plan Note - Keara Guillory MD - 07/20/2019 1:10 AM CSTAssociated Problem(s): Asthma History of numerous hospitalizations due to asthma exacerbations in childhood, with several day long stay in PICU 5 or 6 years ago (no intubations). Asthma presently well-controlled on regimen of qHSbreo inhaler, with no hospitalizations or exacerbations in last several years. - continue qHS breo - albuterol PRN q4hrs CONDUCTOR * Assessment & Plan Note - Keara Guillory MD - 07/20/2019 12:51 AM CSTAssociated Problem(s): Abdominal pain 19 year old girl with PMH obesity, [...] pain worsened by eating in a female ofreproductive age who is obese raises concern for cholelithiasis, however pain is exacerbated by [employer], whereas pain with cholelithiasis is typically provoked [...] will administer another fluid bolus and continue maintenanceIV fluids overnight. Will reasses nausea and pain level in the morning, and can consider schedulingIV cocktail at that time if needed. In morning will also consider stopping IV fluids to encourage PO intake. - 1L NSB - mIVF D5NS - regular diet, POAL - serial abdominal exam - if abdominal pain reoccurs and persists, consider consult to gynecology for TVUS and bimanual exam to r/o ovarian pathology CONDUCTOR CONDUCTOR CONDUCTOR CONDUCTOR * Subjective & Objective - Keara Guillory MD - 07/19/2019 11:42 PM CST Pediatric History and Physical Subjective Patient is a 19 y.o. female with chief complaint of abdominal pain and nausea. HPI: 19yo girl with PMH asthma (on breo), obesity, anxiety (on celexa) who presents with 5 days of nausea and 3 days of abdominal pain. Mother reports a few days of fever about a week and a half prior to onset of these symptoms with no other sick symptoms, but other than that she was in her usual state of health with no antecedent illness, weight loss, change in diet or appetite, diarrhea or constipation, dysuria or change in appearance of urine. Continues to have regular bowel movements, last one on day prior to admission. She does report that 1 week prior to onset of nausea and abdominal pain she was spending time with a friend that was having vomiting. Nina reports that since onset of nausea 5 days ago, she has had 2 episodes of small-volume emesis - she swallowed the vomitus both times and thus could not comment on its appearance. She states that this emesis is different than the sensation of reflux which she had several years ago, for which she was treated with prilosec for a few months with complete resolution. The abdominal pain started 3 days ago and initially was periumbilical,with movement to the RLQ on the day prior to admission. She states that the pain is a dull and at worst an 8/10. It is worse with eating any kind of food, both liquid and solid. Pain is also exacerbated by deep inspiration. Bowel movements have no effect on pain level. No dysphagia, sensation of food getting stuck, or chest pain with eating or swallowing. Of note, around the same time that the abdominal pain started the dosage of celexa was increased from 10mg to 20mg. As a result of the nauseaand abdominal pain she has had significantly decreased PO intake for the last 5 days. She presentedto PMD on 07/18/19 with these concerns - trialed zofran without improvement. Subsequently presented[facility] - non-surgical, benign abdominal exam. UA bland other than 1+ ketones, CBC, amylase, lipase, electrolytes all WNL. RUQ ultrasound showed no abnormality of the gallbladder. Received zofran,pepcid, maalox without improvement. Received 1 NSB and IV migraine cocktail toradol/compazine/benadryl with resolution of nausea and significant improvement in abdominal pain from 04/09 to 11/07. Past Medical History: Diagnosis Date ??? Acute upper respiratory infection Acute URI - (Added by TW Conv) ??? Asthma ??? Chondrocostal junction syndrome Costochondritis, acute - (Added by TW Conv) ??? Cyst of right ovary Right ovarian cyst - (Added by TW Conv) ??? Headache Headache, acute - (Added by TW Conv) ??? Hearing loss of left ear Loss of hearing, left - (Added by TW Conv) ??? Other specified sprain of right wrist, initial encounter Traumatic tear of triangular fibrocartilage complex (TFCC) of right wrist - (Added by TW Conv) ??? Pain in wrist Wrist joint pain - (Added by TW Conv) ??? Personal history of other diseases of the digestive system History of constipation - (Added by TW Conv) ??? Personal history of other diseases of the musculoskeletal system and connective tissue History of backache - (Added by TW Conv) ??? Personal history of other diseases of the respiratory system History of pharyngitis - (Added by TW Conv) ??? Personal history of other specified conditions History of dizziness - (Added by TW Conv) ??? Personal history of other specified conditions History of ataxia - (Added by TW Conv) ??? Postconcussional syndrome Postconcussion syndrome - (Added by TW Conv) ??? Right lower quadrant pain Abdominal pain, RLQ - (Added by TW Conv) ??? Sprain of left wrist Sprain of left wrist - (Added by TW Conv) Past Surgical History: Procedure Laterality Date ??? WRIST SURGERY Facility-Administered Medications Prior to Admission Medication Dose Route Frequency Provider Last Rate Last Dose ??? [COMPLETED] ondansetron ODT (ZOFRAN-ODT) disintegrating tablet 4 mg 4 mg oral Once Cecilia Owen MD 4 mg at 07/18/19 1435 Medications Prior to Admission Medication Sig Dispense Refill Last Dose ??? citalopram (CeleXA) 20 mg tablet Take 1 tablet (20 mg total) by mouth daily 30 tablet 11 07/18/2019 ??? fluticasone-vilanterol (BREO ELLIPTA) 100-25 mcg/dose diskus inhaler Inhale 1 puff daily. 07/18/2019 at Unknown time ??? albuterol (PROVENTIL,VENTOLIN) 1.25 mg/3 mL nebulizer solution Take 3 mL by nebulization every 4 (four) hours as needed. Unknown ??? albuterol HFA (PROVENTIL HFA,VENTOLIN HFA,PROAIR HFA) 90 mcg/actuation inhaler Inhale 2 puffs every 6 hours as needed Unknown ??? fluticasone propionate (FLONASE) 50 mcg/actuation nasal spray Administer 2 sprays into affectednostril(s) daily ??? FLUZONE QUAD [id number], PF, 60 mcg (15 mcg x 4)/0.5 mL syringe 0 Not Taking ??? PROAIR HFA 90 mcg/actuation inhaler Inhale 2 puffs every 4 (four) hours as needed. 0 Not Taking Allergies Allergen Reactions ??? Dog Dander Hives Reaction: HIVES, ??? Penicillins Other (See comments) and Rash As a child Reaction: NAUSEA;, As a child Social History Tobacco Use ??? Smoking status: Never Smoker Substance Use Topics ??? Alcohol use: Not on file Family History: Patient is adopted, family history unknown. Immunization History Administered Date(s) Administered ??? DTaP [...] 03/25/2013 ??? Varicella 02/24/2003, 02/01/2008 Social History: Pediatric Social History: Drug Use: Social History Substance and Sexual Activity Drug Use Not on file Denies drug use including MJ Living Conditions: Living Conditions Lives at home with mother, father, sister, brother. Feels safe. Sexual Activity: Social History Substance and Sexual Activity Sexual Activity Not on file Denies sexual activity. Tobacco History: Social History Tobacco Use Smoking Status Never Smoker Denies smoking including e-cigs/vaping. Social history narrative: Endorses intermittent passive SI without plan that started 4 months ago but has improved since starting therapy and SSRI. Has not had SI for several months and denies SI presently. No prior suicide attempts or self-harm. Review of Systems: Constitutional: No fevers, decreased appetite, normal activity level, no significant weight change. Eyes: No eye complaints. Head, Ears, Nose, Throat: No rhinorrhea, congestion, ear ache, or sore throat. Respiratory: No cough, shortness of breath, tachypnea. Cardiovascular: No chest pain, palpitation, or syncope. Gastroenterology: +abdominal pain, +nausea, +emesis, no diarrhea. Female: Adequate urine output. No dysuria or hematuria. Menses: irregular at baseline Musculoskeletal: No joint pain or swelling. No extremity pain. Skin: No rashes. Heme: No bruising or petechiae. Neuro: No headache. No visual changes. Denies weakness. Psychiatry: endorses anxiety but denies SI, self-harm Objective Vitals: Arrival Vitals Temp 07/19/19 1058 36.5 ??C (97.7 ??F) Pulse 07/19/19 1058 80 Resp 07/19/19 1343 18 BP 07/19/19 1101 120/86 SpO2 07/19/19 1058 97 % FiO2 (%) -- Physical Exam: General: obese habitus; well appearing, cooperative, no acute distress and sleepy Head: Normocephalic, atraumatic Eye:conjunctivae clear, PERRL, nonicteric sclera Oropharynx:MMM and posterior pharynx clear Neck: neck supple and no lymphadenopathy Lungs:clear to auscultation bilaterally, normal WOB and good air movement Heart:regular rate and rhythm, normal S1 and S2 and no murmur, rubs, or gallops Abdomen: obese abdomen; soft, non-distended, bowel sounds present, no masses, no organomegaly (examlimited due to habitus) and mildly TTP RLQ :no suprapubic TTP, no CVA tenderness Extremity:no edema, no joint tenderness or swelling and capillary refill 2-3 seconds Pulses:2+ pulses and symmetric Skin:no rashes or lesions and no jaundice Neurologic:alert, face symmetric, PERRL, moves all extremities, normal gait and CN 2-12 intact Lab/Radiology/Diagnostic Review: Laboratory review: Lab results in the last 24 hours: Recent Results (from the past 24 hour(s)) Urinalysis reflex to microscopic Collection Time: 07/19/19 1:09 PM Result Value Ref Range Color, ur Yellow Yellow Clarity, ur Clear Clear Specific gravity, ur 1.014 1.010 - 1.025 pH, urine 5.5 Protein, ur ql Negative Negative Glucose, ur ql Negative Negative Ketones, ur Trace Negative Bilirubin, ur Negative Negative Blood, ur Negative Negative Urobilinogen, ur 1.0 <2.0 mg/dL Nitrite, ur Negative Negative Leukocyte esterase, ur Negative Negative UA reflex comment Reflex conditions for microscopic UA not met. Electrolytes, whole blood Collection Time: 07/19/19 1:36 PM Result Value Ref Range Sodium, Whole Blood 140 135 - 145 mmol/L Potassium, bld 4.2 3.3 - 4.9 mmol/L Chloride, bld 102 100 - 114 mmol/L CO2, Total Calculated, Whole Blood 29 20 - 30 mmol/L Anion Gap, Whole Blood 10 mmol/L Glucose, whole blood Collection Time: 07/19/19 1:36 PM Result Value Ref Range Glucose, bld 74 70 - 199 mg/dL Calcium, ionized, whole blood Collection Time: 07/19/19 1:36 PM Result Value Ref Range Ca, ionized, bld 4.84 3.90 - 5.20 mg/dL Creatinine, whole blood Collection Time: 07/19/19 1:36 PM Result Value Ref Range Creatinine, bld 0.8 0.4 - 1.0 mg/dL CBC with auto differential Collection Time: 07/19/19 1:36 PM Result Value Ref Range WBC 7.2 3.8 - 9.9 K/cumm Hgb 13.5 11.9 - 15.5 g/dL Hct 41.2 35.6 - 45.5 % Plt 348 150 - 400 K/cumm MPV 9.8 9.1 - 12.3 fL RBC 4.77 3.90 - 5.20 M/cumm MCV 86.4 81.3 - 96.4 fL MCH 28.3 27.1 - 33.3 pg MCHC 32.8 32.3 - 35.7 g/dL RDW CV 13.3 11.1 - 14.9 % RDW SD 41.8 35.7 - 48.1 fL NRBC abs 0.00 0.00 - 0.01 K/cumm Lipase Collection Time: 07/19/19 1:36 PM Result Value Ref Range Lipase 20 5 - 50 Units/L Amylase Collection Time: 07/19/19 1:36 PM Result Value Ref Range Amylase 39 0 - 130 Units/L Differential, auto Collection Time: 07/19/19 1:36 PM Result Value Ref Range Neutrophil abs 3.7 1.7 - 6.5 K/cumm Imm gran abs 0.0 0.0 - 0.1 K/cumm Lymphocyte abs 2.4 0.8 - 3.3 K/cumm Monocyte abs 0.7 0.2 - 0.8 K/cumm Eosinophil abs 0.2 0.0 - 0.5 K/cumm Basophil abs 0.1 0.0 - 0.1 K/cumm Neutrophil pct 51.7 % Imm gran pct 0.4 % Lymphocyte pct 34.1 % Monocyte pct 9.5 % Eosinophil pct 3.5 % Basophil pct 0.8 % hCG, urine, qualitative Collection Time: 07/19/19 2:11 PM Result Value Ref Range HCG, ur Negative Negative CONDUCTOR CONDUCTOR CONDUCTOR CONDUCTOR * Plan of Care - María Van RN - 07/19/2019 9:08 PM CST Goals: Clinical Goals for the Shift: Patient will have adequate pain control and decreased nausea Problem: Health Behavior: Goal: Understanding of discharge needs will improve Outcome: Progressing Problem: Lack of Knowledge: Goal: Verbalization of understanding the information provided will improve Outcome: Progressing Problem: Fluid Volume: Goal: Maintenance of adequate hydration will improve Outcome: Progressing Goal: Will show no signs and symptoms of electrolyte imbalance Outcome: Progressing Problem: Nutritional: Goal: Maintenance of adequate nutrition will improve Outcome: Progressing Problem: Activity: Goal: Risk for activity intolerance will decrease Outcome: Progressing Problem: Nutritional: Goal: Nutritional status will be supported Outcome: Progressing Problem: Fluid Volume: Goal: Maintenance of adequate hydration will improve Outcome: Progressing Problem: Health Behavior: Goal: Ability to state signs and symptoms to report to health care provider will improve Outcome: Progressing Summary: Patient/Mother are participating in care plan goals. Patient/Mother verbalized education and is progressing towards goals. CONDUCTOR * ED Pre-Arrival Note - Eyal Cao EMT - 07/19/2019 9:46 AM YARD CONDUCTOR 19 y/o f pt coming in with complaints of abdominal pain. Eyal Cao, MAGALIE CONDUCTOR documented in this encounter Plan of Treatment Not on file documented as of this encounter Procedures Procedure Name Priority Date/Time Associated Diagnosis Comments PROLACTIN Routine 07/22/2019 9:46 AM YARD CONDUCTOR DHEA-SULFATE Routine 07/22/2019 9:46 AM YARD CONDUCTOR TESTOSTERONE, TOTAL AND FREE, SERUM Routine 07/22/2019 9:46 AM YARD CONDUCTOR TSH Add On 07/22/2019 9:46 AM YARD CONDUCTOR LUTEINIZING HORMONE (LH) Routine 07/22/2019 9:46 AM YARD CONDUCTOR FOLLICLE STIMULATING HORMONE Routine 07/22/2019 9:[address] ABDOMEN PELVIS W CONTRAST ED Urgent/IP Urgent 07/21/2019 11:41 AM YARD CONDUCTOR DIFFERENTIAL AUTO Routine 07/21/2019 4:0 4 AM YARD CONDUCTOR CBC WITH AUTO DIFFERENTIAL Routine 07/21/2019 4:04 AM YARD CONDUCTOR US ABDOMEN LIMITED IP Routine 07/20/2019 11 :35 AM YARD CONDUCTOR US PELVIS AND OVARIAN DOPPLER LIMITED (C) IP Routine 07/20/2019 11:12 AM YARD CONDUCTOR HCG, URINE, QUALITATIVE STAT 07/19/2019 2:11 PM YARD CONDUCTOR CALCIUM,IONIZED, WHOLE BLOOD STAT 07/19/2019 1:36 PM YARD CONDUCTOR DIFFERENTIAL AUTO STAT 07/19/2019 1:3 6 PM YARD CONDUCTOR CREATININE, WHOLE BLOOD STAT 07/19/2019 1:36 PM YARD CONDUCTOR GLUCOSE, WHOLE BLOOD STAT 07/19/2019 1:36 PM YARD CONDUCTOR ELECTROLYTES, WHOLE BLOOD STAT 07/19/2019 1:36 PM YARD CONDUCTOR CBC WITH AUTO DIFFERENTIAL STAT 07/19/2019 1:36 PM YARD CONDUCTOR LIPASE STAT 07/19/2019 1:36 PM YARD CONDUCTOR AMYLASE STAT 07/19/2019 1:36 PM YARD CONDUCTOR US GALLBLADDER ED 07/19/2019 1:21 PM YARD CONDUCTOR URINALYSIS AND REFLEX TO MICROSCOPIC STAT 07/19/2019 1:09 PM YARD CONDUCTOR URINE CULTURE STAT 07/19/2019 1:09 PM YARD CONDUCTOR documented in this encounter Results * TSH (07/22/2019 9:46 AM YARD CONDUCTOR) Thyroid Stimulating Hormone 0.99 0.30 - 4.20 mcIUnit/mL [facility] Blood specimen (specimen) 07/22/2019 9:46 AM YARD CONDUCTOR 07/22/2019 11:03 AM YARD CONDUCTOR us Marianela Bruce MD LAB BLOOD ORDERABLES Final Result [facility] Department [place] [address] * Testosterone, Total and Free, Serum (07/22/2019 9:46 AM YARD CONDUCTOR) Testosterone 28.0 ng/dL [facility] Comment: Interpretive Data Reference values: ? Male(ng/dL) ?? Female(ng/dL) Premature (26-28w) Day 4: ??59-125 ?5-16 Premature (31-35w) Day 4: ??37-198 ?5-22 Newborns (full term): ?75-400 ?20-64 Males 1-7 months: Levels decrease rapidly the first week to 20-50 ng/dL, then increase to 60-400 ng/dL between 20-60 days. Levels then decline to prepubertal range levels of less than 2.5-10 ng/dL by seven months. Females 1-7 months: Levels decrease during the first month to less than 10 ng/dL and remain there until puberty. See [employer] Directory of Services or contact the laboratory for age related normals in puberty. Adult Males (Greater than or equal to 18 years): 264-916 ng/dL Adult Females (Greater than or equal to 18 years): Premenopausal: 10-55 ng/dL Postmenopausal: 7-40 ng/dL Testing performed by: [facility], [place] [address] Current interpretive data was last revised on 2017 Percent Free Testosterone 1.2 % [facility] Comment: Interpretive Data Testing performed by: [place] [address]. Testosterone, free 3.40 pg/mL [facility] Comment: Interpretive Data Testing performed by: [place] [address]. Sex steroid binding globulin 29.9 nmol/L [facility] Comment: Interpretive Data AGE ? RANGE 1 month-2 years ? 60-252 nmol/L Prepubertal (1-8 years) 72-220 nmol/L Pubertal Males ? 16-100 nmol/L Females ? 36-125 nmol/L Adult Males ? 20-50 years ? 16.5-55.9 nmol/L >=50 years ?19.3-76.4 nmol/L Adult Females 20-50 years ? 24.6-122.0 nmol/L >=50 years ?17.3-125.0 nmol/L Testing performed by: [place] [address]. Current interpretive data was last revised on 17. Blood specimen (specimen) 07/22/2019 9:46 AM YARD CONDUCTOR 07/22/2019 11:09 AM YARD CONDUCTOR us Marianela Bruce MD LAB BLOOD ORDERABLES Final Result Performing Organization Address [facility] [place] [address] * DHEA-sulfate (07/22/2019 9:46 AM YARD CONDUCTOR) DHEA-S 87 mcg/dL [facility] Comment: REFERENCE VALUE Jorge ??Mean ?Reference Stage ?? Age ? Range ??____ ? I: ?>14 d ?? 16-96 II: ? 10.5 y ??22-184 III: ?11.6 y ??11-296 IV: ? 12.3 y ??17-343 V: ?14.5 y ??57-513 Test Performed by: [facility] [address] [place] [address] Blade Groover: Viktor Cannon M.D. Ph.D.; IA# [id number] Blood specimen (specimen) 07/22/2019 9:46 AM YARD CONDUCTOR 07/22/2019 9:52 AM YARD CONDUCTOR us Marianela Bruce MD LAB BLOOD ORDERABLES Final Result Performing Organization Address [facility] [place] [address] * Prolactin (07/22/2019 9:46 AM YARD CONDUCTOR) Prolactin 8.9 5.2 - 26.5 ng/mL [facility] Comment:Testing performed by : [facility], [address] [place]., [address] Blood specimen (specimen) 07/22/2019 9:46 AM YARD CONDUCTOR 07/22/2019 11:55 AM YARD CONDUCTOR Result [facility] Marianela Bruce MD LAB BLOOD ORDERABLES Final Result Performing Organization Address [facility] [place] [address] * LH (07/22/2019 9:46 AM YARD CONDUCTOR) LH 4.6 IUnits/L [facility] Comment: Interpretive Data Males: Pre-pubertal: <0.1 IUnits/L Adults: 1-10 IUnits/L Females: Pre-pubertal: <0.1 IUnits/L Adults: Follicular: 2-13 IUnits/L Midcycle: 15-100 IUnits/L Luteal: 1-12 IUnits/L Postmenopause: 7-60 IUnits/L Pre-pubertal range may not be applicable to neonates and young infants. Current interpretive data was last revised on 06. Blood specimen (specimen) 07/22/2019 9:46 AM YARD CONDUCTOR 07/22/2019 9:52 AM YARD CONDUCTOR Result [facility] Marianela Bruce MD LAB BLOOD ORDERABLES Final Result Performing Organization Address [facility] [place] [address] * Follicle stimulating hormone (07/22/2019 9:46 AM YARD CONDUCTOR) FSH 1.8 IUnits/L [facility] Comment: Interpretive Data Males: Pre-pubertal: <4 IUnits/L Adults: 1-15 IUnits/L Females: Pre-pubertal: <4 IUnits/L Adults: Follicular: 3-13 IUnits/L Midcycle: 4-22 IUnits/L Luteal: 1-9 IUnits/L Postmenopause: 25-135 IUnits/L Pre-pubertal range may not be applicable to neonates and young infants. Current interpretive data was last revised on 06. Blood specimen (specimen) 07/22/2019 9:46 AM YARD CONDUCTOR 07/22/2019 9:52 AM YARD CONDUCTOR us Marianela Bruce MD LAB BLOOD ORDERABLES Final Result [facility] Department [place] [address] * CT Abdomen Pelvis W Contrast (07/21/2019 11:41 AM YARD CONDUCTOR) Anatomical Region Laterality Modality Body N/A Computed Tomogra phy 07/21/2019 12:0 7 PM YARD CONDUCTOR Impressions 07/21/2019 12:07 PM YARD CONDUCTOR 1. ??Normal appendix. 2. ??Right ovarian corpus luteal cyst with mild free fluid in the cul-de-sac. Electronically signed by: Sherly To M.D. Narrative 07/21/2019 12:07 PM YARD CONDUCTOR EXAMINATION: ??CT ABDOMEN PELVIS W CONTRAST HISTORY: ??Abd pain, appendicitis suspected COMPARISON: ??None. FINDINGS: Routine CT of the abdomen and pelvis was performed using 100 mL of IV Optiray 320. ??Axial images were obtained with reconstructions in the sagittal and coronal planes. The lung bases are clear. The liver, gallbladder, pancreas and spleen are normal. ??There is no biliary duct dilation. ??The adrenal glands and kidneys are normal. The appendix is well-seen and is normal. ??There is no periappendiceal fat stranding or fluid collection. Both ovaries are well seen. ??The right ovary measures 2.1 x 3.3 x 4.5 cm in dimension and the left ovary measures 1.7 x 2.4 x 3.3 cm in dimension. ??Corpus luteal cyst is seen in the right ovary. ??There is a small amount of free fluid in the cul-de-sac. ??The uterine cavity is fluid-filled but the uterus is normal in size. The bowel is normal. ??Abdominal vessels are patent. ??No osseous lesions are seen. Procedure Note Zuleika, Sherly Hernandez MD - 07/21/2019 EXAMINATION: CT ABDOMEN PELVIS W CONTRAST HISTORY: Abd pain, appendicitis suspected COMPARISON: None. FINDINGS: Routine CT of the abdomen and pelvis was performed using 100 mL of IV Optiray 320. Axial images were obtained with reconstructions in the sagittal and coronal planes. The lung bases are clear. The liver, gallbladder, pancreas and spleen are normal. There is no biliary duct dilation. The adrenal glands and kidneys are normal. The appendix is well-seen and is normal. There is no periappendiceal fat stranding or fluid collection. Both ovaries are well seen. The right ovary measures 2.1 x 3.3 x 4.5 cm in dimension and the left ovary measures 1.7 x 2.4 x 3.3 cm in dimension. Corpus luteal cyst is seen in the right ovary. There is a small amount of free fluid in the cul-de-sac. The uterine cavity is fluid-filled but the uterus is normal in size. The bowel is normal. Abdominal vessels are patent. No osseous lesions are seen. IMPRESSION: 1. Normal appendix. 2. Right ovarian corpus luteal cyst with mild free fluid in the cul-de-sac. Electronically signed by: Sherly To M.D. us Marianela Bruce MD IMG CT PROCEDURES Fi nal Result * Differential, auto (07/21/2019 4:04 AM YARD CONDUCTOR) Neutrophil abs 2.2 1.7 - 6.5 K/cumm [facility] Imm gran abs 0.0 0.0 - 0.1 K/cumm [facility] Lymphocyte abs 2.5 0.8 - 3.3 K/cumm [facility] Monocyte abs 0.6 0.2 - 0.8 K/cumm [facility] Eosinophil abs 0.2 0.0 - 0.5 K/cumm [facility] Basophil abs 0.1 0.0 - 0.1 K/cumm [facility] Neutrophil pct 38.9 % [facility] Comment: Interpretive Data Percent cell count reference ranges are not reported, since discordance with absolute values may lead to misinterpretation of CBC data. Current Interpretive Data was last revised on 2017. Imm gran pct 0.4 % [facility] Comment: Interpretive Data Percent cell count reference ranges are not reported, since discordance with absolute values may lead to misinterpretation of CBC data. Current Interpretive Data was last revised on 2017. Lymphocyte pct 45.5 % [facility] Comment: Interpretive Data Percent cell count reference ranges are not reported, since discordance with absolute values may lead to misinterpretation of CBC data. Current Interpretive Data was last revised on 2017. Monocyte pct 10.3 % [facility] Comment: Interpretive Data Percent cell count reference ranges are not reported, since discordance with absolute values may lead to misinterpretation of CBC data. Current Interpretive Data was last revised on 2017. Eosinophil pct 3.8 % [facility] Comment: Interpretive Data Percent cell count reference ranges are not reported, since discordance with absolute values may lead to misinterpretation of CBC data. Current Interpretive Data was last revised on 2017. Basophil pct 1.1 % [facility] Comment: Interpretive Data Percent cell count reference ranges are not reported, since discordance with absolute values may lead to misinterpretation of CBC data. Current Interpretive Data was last revised on 2017. Blood specimen (specimen) 07/21/2019 4:04 AM YARD CONDUCTOR 07/21/2019 4:10 AM YARD CONDUCTOR Marianela Bruce MD LAB BLOOD ORDERABLES Final Result [facility] Department [place] [address] * (ABNORMAL) CBC with auto differential (07/21/2019 4:04 AM YARD CONDUCTOR) WBC 5.5 3.8 - 9.9 K/cumm [facility] Hgb 10.5(L) 11.9 - 15.5 g/dL [facility] Hct 33.0(L) 35.6 - 45.5 % [facility] Plt 263 150 - 400 K/cumm [facility] MPV 9.7 9.1 - 12.3 fL [facility] RBC 3.71(L) 3.90 - 5.20 M/cumm [facility] MCV 88.9 81.3 - 96.4 fL [facility] MCH 28.3 27.1 - 33.3 pg [facility] MCHC 31.8(L) 32.3 - 35.7 g/dL [facility] RDW CV 13.3 11.1 - 14.9 % [facility] RDW SD 43.6 35.7 - 48.1 fL [facility] NRBC abs 0.00 0.00 - 0.01 K/cumm [facility] Blood specimen (specimen) 07/21/2019 4:04 AM YARD CONDUCTOR 07/21/2019 4:10 AM YARD CONDUCTOR us Marianela Bruce MD LAB BLOOD ORDERABLES Final Result Performing Organization Address City/State/[facility] Co de Phone Number [facility] Department [place] [address] * US Abdomen Limited (07/20/2019 11:35 AM YARD CONDUCTOR) Anatomical Region Laterality Modality Abdomen N/A Ultrasound 07/20/2019 11:4 2 AM YARD CONDUCTOR Impressions 07/20/2019 11:42 AM YARD CONDUCTOR Appendix not visualized, no definitive secondary signs of appendicitis. ??Exam limited due to the patient's body habitus. Electronically signed by: Romie Fierro M.D. Narrative 07/20/2019 11:42 AM YARD CONDUCTOR EXAMINATION:US ABDOMEN LIMITED COMPARISON:02/17/2018 HISTORY: Rule out appendicitis FINDINGS: The exam is limited due to the patient's body habitus. Node definitive appendix is identified. ??A time some bowel is noted in the right lower quadrant but could not be convincing likely identified as the appendix. ??There are no fluid collections in the right lower quadrant, abnormal static bowel loops, or abnormal fat. Procedure Note Romie Fierro MD - 07/20/2019 EXAMINATION:US ABDOMEN LIMITED COMPARISON:02/17/2018 HISTORY: Rule out appendicitis FINDINGS: The exam is limited due to the patient's body habitus. Node definitive appendix is identified. A time some bowel is noted in the right lower quadrant but could not be convincing likely identified as the appendix. There are no fluid collections in the right lower quadrant, abnormal static bowel loops, or abnormal fat. IMPRESSION: Appendix not visualized, no definitive secondary signs of appendicitis. Exam limited due to the patient's body habitus. Electronically signed by: Romie Fierro M.D. us Marianela Bruce MD IMG US PROCEDURES Fi nal Result * US Pelvis and Ovarian Doppler Limited (07/20/2019 11:12 AM YARD CONDUCTOR) Anatomical Region Laterality Modality Pelvis N/A Ultrasound 07/20/2019 11:1 6 AM YARD CONDUCTOR Impressions 07/20/2019 11:28 AM YARD CONDUCTOR Normal. ?? Dictated by: Pipe Lopes The radiology attending physician has personally reviewed this study, and had reviewed and/or edited this written report and agrees with it. Electronically signed by: Romie Fierro M.D. Narrative 07/20/2019 11:28 AM YARD CONDUCTOR EXAMINATION: ??US PELVIS AND OVARIAN DOPPLER LIMITED (C) HISTORY: ??19-year-old girl with complaints of right lower quadrant pain. ??Concern for ovarian torsion. COMPARISON: ??02/17/2018. FINDINGS: The urinary bladder is partially distended and does not cover the uterus entirely. The uterus is adult female in configuration and size. ??The endometrial stripe measures 7 mm. ??The left ovary measures 2.7 x 2.0 x 1.3 cm for a volume of 3.6 cc. ??The right ovary measures 2.8 x 2.1 x 2.0 cm for a volume of 6 cc. ??There are no dominant cysts or masses. Color Doppler evaluation with spectral waveform analysis was performed and shows normal arterial in both ovaries and a small amount of venous flow in the right ovary. ??There is color flow in both ovaries. ?? Procedure Note Romie Fierro MD - 07/20/2019 EXAMINATION: US PELVIS AND OVARIAN DOPPLER LIMITED (C) HISTORY: 19-year-old girl with complaints of right lower quadrant pain. Concern for ovarian torsion. COMPARISON: 02/17/2018. FINDINGS: The urinary bladder is partially distended and does not cover the uterus entirely. The uterus is adult female in configuration and size. The endometrial stripe measures 7 mm. The left ovary measures 2.7 x 2.0 x 1.3 cm for a volume of 3.6 cc. The right ovary measures 2.8 x 2.1 x 2.0 cm for a volume of 6 cc. There are no dominant cysts or masses. Color Doppler evaluation with spectral waveform analysis was performed and shows normal arterial in both ovaries and a small amount of venous flow in the right ovary. There is color flow in both ovaries. IMPRESSION: Normal. Dictated by: Pipe Lopes The radiology attending physician has personally reviewed this study, and had reviewed and/or edited this written report and agrees with it. Electronically signed by: Romie Fierro M.D. Marianela Bruce MD IMG US PROCEDURES Fi nal Result * hCG, urine, qualitative (07/19/2019 2:11 PM YARD CONDUCTOR) Pathologist [facility] HCG, ur Negative Negative [facility] Urine 07/19/2019 2:11 PM YARD CONDUCTOR 07/19/2019 2:14 PM YARD CONDUCTOR Sherly Vitale NP LAB URINE ORDERABLES Fin al Result [facility] Department [place] [address] * Differential, auto (07/19/2019 1:36 PM YARD CONDUCTOR) Pathologist [facility] Neutrophil abs 3.7 1.7 - 6.5 K/cumm [facility] Imm gran abs 0.0 0.0 - 0.1 K/cumm [facility] Lymphocyte abs 2.4 0.8 - 3.3 K/cumm [facility] Monocyte abs 0.7 0.2 - 0.8 K/cumm [facility] Eosinophil abs 0.2 0.0 - 0.5 K/cumm [facility] Basophil abs 0.1 0.0 - 0.1 K/cumm [facility] Neutrophil pct 51.7 % [facility] Comment: Interpretive Data Percent cell count reference ranges are not reported, since discordance with absolute values may lead to misinterpretation of CBC data. Current Interpretive Data was last revised on 2017. Imm gran pct 0.4 % [facility] Comment: Interpretive Data Percent cell count reference ranges are not reported, since discordance with absolute values may lead to misinterpretation of CBC data. Current Interpretive Data was last revised on 2017. Lymphocyte pct 34.1 % [facility] Comment: Interpretive Data Percent cell count reference ranges are not reported, since discordance with absolute values may lead to misinterpretation of CBC data. Current Interpretive Data was last revised on 2017. Monocyte pct 9.5 % [facility] Comment: Interpretive Data Percent cell count reference ranges are not reported, since discordance with absolute values may lead to misinterpretation of CBC data. Current Interpretive Data was last revised on 2017. Eosinophil pct 3.5 % [facility] Comment: Interpretive Data Percent cell count reference ranges are not reported, since discordance with absolute values may lead to misinterpretation of CBC data. Current Interpretive Data was last revised on 2017. Basophil pct 0.8 % [facility] Comment: Interpretive Data Percent cell count reference ranges are not reported, since discordance with absolute values may lead to misinterpretation of CBC data. Current Interpretive Data was last revised on 2017. Blood specimen (specimen) 07/19/2019 1:36 PM YARD CONDUCTOR 07/19/2019 1:43 PM YARD CONDUCTOR us Sherly Vitale PERSONAL [employer]ES AGENT LAB BLOOD ORDERABLES Fin al Result [facility] Department [place] [address] * Amylase (07/19/2019 1:36 PM YARD CONDUCTOR) Amylase 39 0 - 130 Units/L [facility] Blood specimen (specimen) 07/19/2019 1:36 PM YARD CONDUCTOR 07/19/2019 1:43 PM YARD CONDUCTOR Sherly Vitale PERSONAL [employer]ES AGENT LAB BLOOD ORDERABLES Fin al Result Performing Organization Address [facility] de Phone Number [facility] [place] [address] * Lipase (07/19/2019 1:36 PM YARD CONDUCTOR) Lipase 20 5 - 50 Units/L [facility] Blood specimen (specimen) 07/19/2019 1:36 PM YARD CONDUCTOR 07/19/2019 1:43 PM YARD CONDUCTOR us Sherly Vitale PERSONAL [employer]ES AGENT LAB BLOOD ORDERABLES Fin al Result Performing Organization Address [facility] de Phone Number [facility] [place] [address] * CBC with auto differential (07/19/2019 1:36 PM YARD CONDUCTOR) WBC 7.2 3.8 - 9.9 K/cumm [facility] Hgb 13.5 11.9 - 15.5 g/dL [facility] Hct 41.2 35.6 - 45.5 % [facility] Plt 348 150 - 400 K/cumm [facility] MPV 9.8 9.1 - 12.3 fL [facility] RBC 4.77 3.90 - 5.20 M/cumm [facility] MCV 86.4 81.3 - 96.4 fL [facility] MCH 28.3 27.1 - 33.3 pg [facility] MCHC 32.8 32.3 - 35.7 g/dL [facility] RDW CV 13.3 11.1 - 14.9 % [facility] RDW SD 41.8 35.7 - 48.1 fL [facility] NRBC abs 0.00 0.00 - 0.01 K/cumm [facility] Blood specimen (specimen) 07/19/2019 1:36 PM YARD CONDUCTOR 07/19/2019 1:43 PM YARD CONDUCTOR us Sherly Vitale PERSONAL LINES AGENT LAB BLOOD ORDERABLES Fin al Result Performing Organization Address [facility] [place] [address] * Creatinine, whole blood (07/19/2019 1:36 PM YARD CONDUCTOR) Creatinine, bld 0.8 0.4 - 1.0 mg/dL [facility] Blood specimen (specimen) 07/19/2019 1:36 PM YARD CONDUCTOR 07/19/2019 1:42 PM YARD CONDUCTOR Sherly Vitale PERSONAL LINES AGENT LAB BLOOD ORDERABLES Fin al Result Performing Organization Address [facility] [place] [address] * Calcium, ionized, whole blood (07/19/2019 1:36 PM YARD CONDUCTOR) Ca, ionized, bld 4.84 3.90 - 5.20 mg/dL [facility] Blood specimen (specimen) 07/19/2019 1:36 PM YARD CONDUCTOR 07/19/2019 1:42 PM YARD CONDUCTOR Sherly Vitale PERSONAL LINES AGENT LAB BLOOD ORDERABLES Fin al Result Performing Organization Address [facility] [place] [address] * Glucose, whole blood (07/19/2019 1:36 PM YARD CONDUCTOR) Glucose, bld 74 70 - 199 mg/dL [facility] Blood specimen (specimen) 07/19/2019 1:36 PM YARD CONDUCTOR 07/19/2019 1:42 PM YARD CONDUCTOR Sherly Vitale PERSONAL LINES AGENT LAB BLOOD ORDERABLES Fin al Result Performing Organization Address [facility] [place] [address] * Electrolytes, whole blood (07/19/2019 1:36 PM YARD CONDUCTOR) Sodium, Whole Blood 140 135 - 145 mmol/L [facility] Potassium, bld 4.2 3.3 - 4.9 mmol/L [facility] Chloride, bld 102 100 - 114 mmol/L [facility] CO2, Total Calculated, Whole Blood 29 20 - 30 mmol/L [facility] Anion Gap, Whole Blood 10 mmol/L [facility] Blood specimen (specimen) 07/19/2019 1:36 PM YARD CONDUCTOR 07/19/2019 1:42 PM YARD CONDUCTOR us Sherly Vitale PERSONAL LINES AGENT LAB BLOOD ORDERABLES Fin al Result [facility] Department [place] [address] * US Gallbladder (07/19/2019 1:21 PM YARD CONDUCTOR) Anatomical Region Laterality Modality Abdomen N/A Ultrasound 07/19/2019 1:34 PM YARD CONDUCTOR Impressions 07/19/2019 1:38 PM YARD CONDUCTOR Normal gallbladder. Dictated by: Luciano Rivas M.D. The radiology attending physician has personally reviewed this study, and had reviewed and/or edited this written report and agrees with it. Electronically signed by: Romie Fierro M.D. Narrative 07/19/2019 1:38 PM YARD CONDUCTOR EXAMINATION: ??US GALLBLADDER HISTORY: ??19-year-old female with abdominal pain. COMPARISON: ??Ultrasound abdomen complete 02/09/2015. FINDINGS: The pancreas is poorly visualized due to body habitus. ?? The visualized liver is of normal architecture without focal masses or biliary ductal dilatation. The gallbladder is normal. The common duct measures 3 mm. The incidentally visualized portions of the aorta and IVC are normal. Procedure Note Romie Fierro MD - 07/19/2019 EXAMINATION: US GALLBLADDER HISTORY: 19-year-old female with abdominal pain. COMPARISON: Ultrasound abdomen complete 02/09/2015. FINDINGS: The pancreas is poorly visualized due to body habitus. The visualized liver is of normal architecture without focal masses or biliary ductal dilatation. The gallbladder is normal. The common duct measures 3 mm. The incidentally visualized portions of the aorta and IVC are normal. IMPRESSION: Normal gallbladder. Dictated by: Luciano Rivas M.D. The radiology attending physician has personally reviewed this study, and had reviewed and/or edited this written report and agrees with it. Electronically signed by: Romie Fierro M.D. Sherly Vitale PERSONAL LINES AGENT IMG US PROCEDURES Final Result * Urine culture Urine, clean voided (07/19/2019 1:09 PM YARD CONDUCTOR) Report Final Report: Less than 10,000 colonies/mL (clinically insignificant growth based on current clinical standards) [facility] Comment:Testing performed by : [facility], [address] [place]., [address] Organism (CLINICALLY INSIGNIFICANT GROWTH [facility] Urine, clean voided 07/19/2019 1:09 PM YARD CONDUCTOR 07/19/2019 2:11 PM YARD CONDUCTOR Narrative [facility] - 07/20/2019 5:39 PM YARD CONDUCTOR Indications for Culture:->Other (specify) Other Indication:->abd and back pain Testing performed by [facility] ([phone]) us Sherly Vitale NP LAB MICROBIOLOGY - GENER AL ORDERABLES Final Result [facility] Department [place] [address] * Urinalysis reflex to microscopic (07/19/2019 1:09 PM YARD CONDUCTOR) Color, ur Yellow Yellow [facility] Clarity, ur Clear Clear [facility] Specific gravity, ur 1.014 1.010 - 1.025 [facility] pH, urine 5.5 [facility] Protein, ur ql Negative Negative [facility] Glucose, ur ql Negative Negative [facility] Ketones, ur Trace Negative [facility] Bilirubin, ur Negative Negative [facility] Blood, ur Negative Negative [facility] Urobilinogen, ur 1.0 <2.0 mg/dL [facility] Nitrite, ur Negative Negative [facility] Leukocyte esterase, ur Negative Negative [facility] UA reflex comment Reflex conditions for microscopic UA not met. [facility] Urine 07/19/2019 1:09 PM YARD CONDUCTOR 07/19/2019 1:15 PM YARD CONDUCTOR Narrative [facility] - 07/19/2019 1:26 PM YARD CONDUCTOR ?? Urine pH is affected by diet, medications, systemic acid-base disturbances, and renal tubular function. ??pH may affect urinary stone formation. ??For example, urine pH below 6.0 may help reduce the tendency for calcium phosphate stones and pH greater than 6.0 may reduce the tendency for uric acid stone formation. Source: [facility] [employer]. Last revised 09-10-2017 us Sherly Vitale NP LAB URINE ORDERABLES Fin al Result [facility] Department [place] [address] documented in this encounter Visit Diagnoses Diagnosis Right lower quadrant abdominal pain- Primary Nausea Nausea alone Abdominal pain Abdominal pain, unspecified site Asthma Unspecified asthma Anxiety Anxiety state, unspecified documented in this encounter Administered Medications Inactive Administered Medications - up to 3 most recent administrations Medication Order MAR Action Action Date Dose Rate Site acetaminophen (TYLENOL) tablet 500 mg 500 mg, oral, Every 6 hours PRN, 1st line for pain, Starting on Thu07/20/19 at 0905, 1st line for abdominal pain Given 07/21/2019 9:30 PM YARD CONDUCTOR 500 mg Given 07/21/2019 3:30 PM YARD CONDUCTOR 500 mg Given 07/21/2019 7:45 AM YARD CONDUCTOR 500 mg acetaminophen (TYLENOL) tablet 500 mg 500 mg, oral, Every 6 hours scheduled, First dose on Thu07/22/19 at 1100 Given 07/23/2019 11:51 AM YARD CONDUCTOR 500 mg Given 07/22/2019 6:12 PM YARD CONDUCTOR 500 mg Given 07/22/2019 11:59 AM YARD CONDUCTOR 500 mg aluminum-magnesium hydroxide-simethicone (MAALOX) 40-40-4 mg/mL oral suspension 20 mL 20 mL, oral, Once, On Thu07/19/19 at 1519, For 1 dose Given 07/19/2019 3:57 PM YARD CONDUCTOR 20 mL calcium carbonate (TUMS) chewable tablet 500 mg 500 mg (200 mg of elemental calcium), oral, Once, On Celia 07/21/19 at 2045, For 1 dose Given 07/21/2019 8:22 PM YARD CONDUCTOR 50 0 mg calcium carbonate (TUMS) chewable tablet 500 mg 500 mg (200 mg of elemental calcium), oral, Once, On Thu07/22/19 at 0445, For 1 dose Given 07/22/2019 4:21 AM YARD CONDUCTOR 50 0 mg citalopram (CeleXA) tablet 20 mg 20 mg, oral, Nightly, First dose (after last modification) on Thu07/19/19 at 2300 Given 07/22/2019 8:11 PM YARD CONDUCTOR 20 mg Given 07/21/2019 8:01 PM YARD CONDUCTOR 20 mg Given 07/20/2019 7:44 PM YARD CONDUCTOR 20 mg dextrose 5% and sodium chloride 0.9% infusion (premix) 218 mL/hr, intravenous, Continuous, Starting on Thu07/19/19 at 1806 New Bag 07/19/2019 6:32 PM YARD CONDUCTOR 218 mL/hr 218 mL/hr dextrose 5% and sodium chloride 0.9% infusion (premix) 1 L/m2/day ? 2.18 m2 (90.8333 mL/hr, rounded to 90.8 mL/hr), intravenous, Continuous, Starting on Thu07/20/19 at 0000, On hold since 07/23/2019 at 1035 until manually unheld New Bag 07/22/2019 10:56 PM YARD CONDUCTOR 1 L/m2/day 90.8 mL/hr Rate/Dose Change 07/22/2019 8:00 PM YARD CONDUCTOR 1 L/m2/day 90.8 mL /hr New Bag 07/22/2019 11:59 AM YARD CONDUCTOR 1 L/m2/day 90.8 mL/hr diphenhydrAMINE (BENADRYL) injection 50 mg 50 mg, intravenous, Administer over 15 Minutes, Once, On Thu07/19/19 at 1806, For 1 dose Given 07/19/2019 6:33 PM YARD CONDUCTOR 50 mg diphenhydrAMINE (BENADRYL) tab/cap 25 mg 25 mg, oral, Once as needed, 3rd line for abdominal pain, Starting on Thu07/20/19 at 0915, For 1 dose, 3rd line for abdominal pain Given 07/20/2019 9:2 8 PM YARD CONDUCTOR 25 mg diphenhydrAMINE (BENADRYL) tab/cap 25 mg 25 mg, oral, Once as needed, 3rd line for abdominal pain, Starting on Celia 07/21/19 at 1451, For 1 dose, 3rd line for abdominal pain Given 07/21/2019 3:3 0 PM YARD CONDUCTOR 25 mg famotidine (PEPCID) tablet 20 mg 20 mg, oral, Once, On Thu07/19/19 at 1505, For 1 dose Given 07/19/2019 3:13 PM YARD CONDUCTOR 20 mg fluticasone furoate-vilanterol (BREO ELLIPTA) 100-25 mcg/dose inhaler 1 puff 1 puff, inhalation, Nightly, First dose on Thu07/19/19 at 2215, Drug Name: Breo ellipta, Form: aerosol powder, Length of Therapy: Indefinite, How soon needed? (normally 72 hrs needed to procure): 0-24 hrs, Reason for Non-Formulary: patient with history of severe asthma, stable on this long-term therapy Given 07/22/2019 8:11 PM YARD CONDUCTOR 1 puff Given 07/21/2019 8:01 PM YARD CONDUCTOR 1 puff Given 07/20/2019 7:45 PM YARD CONDUCTOR 1 puff ioversol intravenous syringe 100 mL 100 mL, intravenous, Once in imaging, contrast, Starting on Celia 07/21/19 at 1138, For 1 dose Given 07/21/2019 11:41 AM YARD CONDUCTOR 100 mL ketorolac (TORADOL) 15 mg/mL injection 30 mg 30 mg, intravenous, Administer over 5 Minutes, Once, On Thu07/19/19 at 1806, For 1 dose Given 07/19/2019 6:57 PM YARD CONDUCTOR 30 mg ketorolac (TORADOL) 15 mg/mL injection 30 mg 30 mg, intravenous, Administer over 5 Minutes, Every 6 hours PRN, 1st line for pain, Starting on Celia 07/21/19 at 1224, For 1 day, First dose after NSB is finished Given 07/22/2019 8:28 AM YARD CONDUCTOR 30 m g Given 07/21/2019 5:43 PM YARD CONDUCTOR 30 mg Given 07/21/2019 12:45 PM YARD CONDUCTOR 30 mg ketorolac (TORADOL) 15 mg/mL injection 30 mg 30 mg, intravenous, Administer over 5 Minutes, Every 6 hours, First dose on Thu07/22/19 at 1500, For 5 days Given 07/23/2019 2:35 PM YARD CONDUCTOR 30 mg Given 07/23/2019 9:17 AM YARD CONDUCTOR 30 mg Given 07/23/2019 3:36 AM YARD CONDUCTOR 30 mg lidocaine 1% buffered injection 0.1 mL 0.1 mL, subcutaneous, Once, On Thu07/19/19 at 1251, For 1 dose, Maximum daily dose 0.1 mL/kg, Administer immediately prior to procedure. Given 07/19/2019 1:38 PM YARD CONDUCTOR 0.1 mL Other (Comment) ondansetron (ZOFRAN) injection 4 mg 4 mg, intravenous, Administer over 15 Minutes, Once, On Thu07/21/19 at 1015, For 1 dose, Maximum dose = 4 mg Given 07/21/2019 9:50 AM YARD CONDUCTOR 4 mg ondansetron ODT (ZOFRAN-ODT) disintegrating tablet 4 mg 4 mg, oral, Every 6 hours PRN, nausea, vomiting, Starting on Thu07/22/19 at 1126 Given 07/23/2019 2:35 PM YARD CONDUCTOR 4 mg Given 07/23/2019 7:56 AM YARD CONDUCTOR 4 mg Given 07/22/2019 8:16 PM YARD CONDUCTOR 4 mg ondansetron ODT (ZOFRAN-ODT) disintegrating tablet 8 mg 8 mg, oral, Once, On Thu07/19/19 at 1404, For 1 dose Given 07/19/2019 2:09 PM YARD CONDUCTOR 8 mg polyethylene glycol (MIRALAX) packet 17 g 17 g, oral, Daily PRN, constipation, Starting on Thu07/22/19 at 0859, Indications: constipationIndications:constipat ion prochlorperazine (COMPAZINE) injection 10 mg 10 mg, intravenous, Administer over 5 Minutes, Once, On Thu07/19/19 at 1806, For 1 dose Given 07/19/2019 7:26 PM YARD CONDUCTOR 10 mg sodium chloride 0.9% 0.9% infusion - ADS Override Pull Starting on Thu07/21/19 at 1212, For 1 dose, Created by cabinet override sodium chloride 0.9% bolus 1,000 mL 1,000 mL, intravenous, at 1,000 mL/hr, Administer over 1 Hours, Once, On Thu07/19/19 at 1251, For 1 dose, Maximum dose = 1000 mL New Bag 07/19/2019 1:40 PM YARD CONDUCTOR 1,000 mL 1000 mL/hr sodium chloride 0.9% bolus 1,000 mL 1,000 mL, intravenous, Once, On Thu07/19/19 at 2230, For 1 dose New 07/19/2019 10:38 PM YARD CONDUCTOR 1,000 mL sodium chloride 0.9% bolus 1,000 mL 1,000 mL, intravenous, Once as needed, 2nd line for pain, Starting on Thu07/20/19 at 0915, For 1 dose, 2nd line for abdominal pain New 07/20/2019 7:54 PM YARD CONDUCTOR 1,000 mL sodium chloride 0.9% bolus 1,000 mL 1,000 mL, intravenous, Once as needed, 2nd line for pain, Starting on Thu07/21/19 at 0851, For 1 dose, 2nd line for abdominal pain New 07/21/2019 8:55 AM YARD CONDUCTOR 1,000 mL sodium chloride 0.9% bolus 1,000 mL 1,000 mL, intravenous, Once, On Thu07/21/19 at 1300, For 1 dose New 07/21/2019 12:15 PM YARD CONDUCTOR 1,000 mL documented in this encounter Discontinued Medications Medication Sig Discontinue Reason Start Date End Da te VITAMIN D2 50,000 unit capsule TAKE 1 CAPSULE BY MOUTH ONCE A WEEK Therapy completed 04/06/2019 07/19/2019 ascorbic acid (ascorbic acid with katie hips) 500 mg tablet,chewable Therapy completed 07/19/2019 fluticasone (FLONASE) 50 mcg/actuation nasal spray Administer 2 sprays into each nostril. Therapy completed 10/05/2017 07/19/2019 cetirizine 10 mg capsule Take 1 tablet by mouth daily. Therapy completed 12/19/2016 07/19/2019 FLUZONE QUAD [id number], PF, 60 mcg (15 mcg x 4)/0.5 mL syringe Duplicate order 07/21/2018 07/20/2019 PROAIR HFA 90 mcg/actuation inhaler Inhale 2 puffs every 4 (four) hours as needed. Duplicate order 02/12/2018 07/20/2019 medroxyPROGESTERone (PROVERA) 10 mg tablet Take 1 tablet (10 mg total) by mouth daily for 10 days Stop Taking at Discharge 07/22/2019 07/23/2019 levonorgestrel-ethiny l estrad (LUTERA) 0.1-20 mg-mcg per tablet Take 1 tablet by mouth daily Please take 10 days of provera first. Then after your period starts, begin the lutera. Stop Taking at Discharge 07/22/2019 07/23/2019 documented as of this encounter Historical Medications * This list may reflect changes made after this encounter. Medication Sig Dispense Quantity Refills Last Filled Start D ate End Date ascorbic acid (ascorbic acid with katie hips) 500 mg tablet,chewable 9 added in this encounter Active and Recently Administered Medications Times are shown in YARD CONDUCTOR. Scheduled Medication Order 07/21/2019 07/22/2019 07/23/2019 acetaminophen (TYLENOL) tablet 500 mg 500 mg, oral, Every 6 hours scheduled, First dose on Thu07/22/19 at 1100 1159 (Given - Provider: Ela Jones RN)1812 (Given - Provider: Ela oJnes RN) 0036 (Not Given - Provider: Abner Kellogg RN - Reason: Other - Comment: pt sleeping)0550 (Not Given - Provider: Abner Kellogg RN - Reason: Other - Comment: sleeping)1151 (Given - Provider: Ela Jones RN) calcium carbonate (TUMS) chewable tablet 500 mg (COMPLETED) 500 mg (200 mg of elemental calcium), oral, Once, On Celia 07/21/19 at 2045, For 1 dose 2021 (Given - Provider: Aileen Ivey RN) calcium carbonate (TUMS) chewable tablet 500 mg (COMPLETED) 500 mg (200 mg of elemental calcium), oral, Once, On Thu07/22/19 at 0445, For 1 dose 0421 (Given - Provider: Aileen Ivey RN) citalopram (CeleXA) tablet 20 mg 20 mg, oral, Nightly, First dose (after last modification) on Thu07/19/19 at 2300 2000 (Given - Provider: Aileen Ivey RN) 2010 (Given - Provider: Abner Kellogg RN) fluticasone furoate-vilanterol (BREO ELLIPTA) 100-25 mcg/dose inhaler 1 puff 1 puff, inhalation, Nightly, First dose on Thu07/19/19 at 2215, Drug Name: Breo ellipta, Form: aerosol powder, Length of Therapy: Indefinite, How soon needed? (normally 72 hrs needed to procure): 0-24 hrs, Reason for Non-Formulary: patient with history of severe asthma, stable on this long-term therapy 2000 (Given - Provider: Aileen Ivey RN) 2010 (Given - Provider: Abner Kellogg RN) ketorolac (TORADOL) 15 mg/mL injection 30 mg 30 mg, intravenous, Administer over 5 Minutes, Every 6 hours, First dose on Thu07/22/19 at 1500, For 5 days 1505 (Given - Provider: Ela Jones RN)2010 (Given - Provider: Abner Kellogg RN) 0336 (Given - Provider: Abner Kellogg RN)0917 (Given - Provider: Ela Jones RN)1435 (Given - Provider: Ela Jones RN) ondansetron (ZOFRAN) injection 4 mg (COMPLETED) 4 mg, intravenous, Administer over 15 Minutes, Once, On Thu07/21/19 at 1015, For 1 dose, Maximum dose = 4 mg 0950 (Given - Provider: Ela Jones RN) sodium chloride 0.9% bolus 1,000 mL (COMPLETED) 1,000 mL, intravenous, Once, On Thu07/21/19 at 1300, For 1 dose 1215 (New Bag - Provider: Ela Jones RN) Continuous Medication Order 07/21/2019 07/22/2019 07/23/2019 dextrose 5% and sodium chloride 0.9% infusion (premix) 1 L/m2/day ? 2.18 m2 (90.8333 mL/hr, rounded to 90.8 mL/hr), intravenous, Continuous, Starting on Thu07/20/19 at 0000, On hold since 07/23/2019 at 1035 until manually unheld 0745 (New Bag - Provider: Ela Jones RN) 0022 (New Bag - Provider: Aileen Ivey, GLENDA)1159 (New Bag - Provider: Ela Jones RN)1999 (Rate/Dose Change - Provider: Abner Kellogg RN)2255 (New Bag - Provider: Abner Kellogg RN)2256 (Not Given - Provider: Abner Kellogg RN - Reason: Other - Comment: duplicate order) 1035 (Held by Provider - Provider: Sera Gonzalez MD - Reason: Change in Patient Status)195 (MAR Unhold - Provider: Automatic Discharge Provider) PRN Medication Order 07/21/2019 07/22/2019 07/23/2019 acetaminophen (TYLENOL) tablet 500 mg 500 mg, oral, Every 6 hours PRN, 1st line for pain, Starting on Thu07/20/19 at 0905, 1st line for abdominal pain 0745 (Given - Provider: Ela Jones RN)1530 (Given - Provider: Ela Jones RN)2130 (Given - Provider: Aileen Ivey RN) albuterol 2.5 mg/0.5 mL nebulizer solution 2.5 mg 2.5 mg, nebulization, Every 4 hours PRN (correspondence analyst), wheezing, Starting on Thu07/19/19 at 2144, 2nd line albuterol HFA (PROVENTIL HFA,VENTOLIN HFA,PROAIR HFA) 90 mcg/actuation inhaler 2 puff 2 puff, inhalation, Every 4 hours PRN (correspondence analyst), wheezing, Starting on Thu07/19/19 at 2143, First line diphenhydrAMINE (BENADRYL) tab/cap 25 mg (COMPLETED) 25 mg, oral, Once as needed, 3rd line for abdominal pain, Starting on Thu07/21/19 at 1451, For 1 dose, 3rd line for abdominal pain 1530 (Given - Provider: Ela Jones RN) ioversol intravenous syringe 100 mL (COMPLETED) 100 mL, intravenous, Once in imaging, contrast, Starting on Thu07/21/19 at 1138, For 1 dose 1141 (Given - Provider: Rajwinder Jane, RT) ketorolac (TORADOL) 15 mg/mL injection 30 mg () 30 mg, intravenous, Administer over 5 Minutes, Every 6 hours PRN, 1st line for pain, Starting on Celia 07/21/19 at 1224, For 1 day, First dose after NSB is finished 1245 (Given - Provider: Ela Jones RN)1743 (Given - Provider: Ela Jones RN) 0828 (Given - Provider: Sandra Navarrete RN) ondansetron ODT (ZOFRAN-ODT) disintegrating tablet 4 mg 4 mg, oral, Every 6 hours PRN, nausea, vomiting, Starting on Thu07/22/19 at 1126 1159 (Given - Provider: Ela Jones RN)2016 (Given - Provider: Abner Kellogg RN) 0756 (Given - Provider: Ela Jones RN)1435 (Given - Provider: Ela Jones RN) polyethylene glycol (MIRALAX) packet 17 g 17 g, oral, Daily PRN, constipation, Starting on Thu07/22/19 at 0859, Indications: constipation sodium chloride 0.9% bolus 1,000 mL (COMPLETED) 1,000 mL, intravenous, Once as needed, 2nd line for pain, Starting on Celia 07/21/19 at 0851, For 1 dose, 2nd line for abdominal pain 0855 (New Bag - Provider: Ela Jones RN) documented in this encounter Orders Medications Ordered That Jonny ht Not Have Been Administered Count Last Ordered Date First Ordered Date polyethylene glycol (MIRALAX) packet 17 g 1 07/22/2019 sodium chloride 0.9% bolus 2,092 mL 2 07/2107/19/2019 diphenhydrAMINE (BENADRYL) tab/cap 25 mg 1 07/20/2019 sodium chloride 0.9% bolus 1,000 mL 1 07/20 albuterol 2.5 mg/0.5 mL nebu lizer solution 2.5 mg 1 07/19/2019 albuterol HFA (PROVENTIL HFA ,VENTOLIN HFA,PROAIR HFA) 90 mcg/actuation inhaler 2 puff 1 07/19/2019 aluminum-magnesium hydroxide -simethicone & diphenhydramine 1:1 (MAGIC MOUTHWASH) oral suspension 20 mL 1 07/19/2019 citalopram (CeleXA) tablet 20 mg 1 07/19/20 19 Lab Orders Without Results Count Last Ordered D ate First Ordered Date TSH 1 07/22/2019 Diet Count Last Ordered Date First Orde red Date PEDIATRIC DISCHARGE DIET 1 07/23/2019 Nursing Count Last Ordered Date First Orde red Date DISCHARGE ACTIVITY 1 07/23/2019 DISCHARGE CALL PROVIDER 1 07/23/2019 DISCHARGE INSTRUCTIONS 1 07/23/2019 MEASURE HEIGHT AND LENGTH 1 07/19/2019 WEIGH PATIENT 1 07/19/2019 Consult Count Last Ordered Date First Orde red Date IP CONSULT TO HOG DRIVER 1 07/21/2019 IV Count Last Ordered Date First Orde red Date INSERT PERIPHERAL IV 1 07/19/2019 ADT Patient Update Count Last Ordered Date Firs t Ordered Date ED IP DECISION TO ADMIT 1 07/19/2019 documented in this encounter Care Teams Mechanic Field Service Relationship Specialty Start Date End Date Johnna Tinajero MD [id number] [facility] [address] [place] [address] PCP - General Pediatrics 07/19/19 01/26/23 Johnna Tinajero MD [id number] [facility] [address] [place] [address] 07/19/19 documented as of this encounter
--- OUTSIDE RECORDS SUMMARY | 2024-08-28 02:16 | XMS_ITS | Encounter Summary ---
Author Organization [facility] Facility Care Team Providers Care Packaging Sales Representative Name Role Phone Unavailable Primary Care Provider Unavailabl e Encounter Details Date Type Department Care Team (Late st Contact Info) Description 07/19/2014 3:53 PM DISEASE EDUCATION SPECIALIST - 07/19/2014 11:59 PM DISEASE EDUCATION SPECIALIST Hospital Encounter [facility] Ross Whiteside MD [phone] [place] [address] Migraine Social History Tobacco Use Types Packs/Day Years Used Date Smoking Tobacco: Never Assessed Comments Unknown Sex and Gender Information Value Date Recorded Sex Assigned at Not on file Legal Sex 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 DISEASE EDUCATION SPECIALIST Gender Identity Not on file Sexual Orientation Not on file documented as of this encounter Plan of Treatment Not on file documented as of this encounter Procedures Procedure Name Priority Date/Time Associated Diagnosis Comments MRI BRAIN W WO CONTRAST Routine 07/19/2014 4:51 PM DISEASE EDUCATION SPECIALIST documented in this encounter Results * MRI Brain W WO Contrast (07/19/2014 4:51 PM DISEASE EDUCATION SPECIALIST) Anatomical Region Laterality Modality Head and Neck N/A Magnetic Resonan ce 07/19/2014 4:51 PM DISEASE EDUCATION SPECIALIST Narrative 07/22/2014 9:02 AM DISEASE EDUCATION SPECIALIST GIL ALEJANDRO MD, PHD KARLIE AVELAR M.D. FINAL REPORT The radiology attending physician has personally reviewed this study, and has reviewed and/or edited this written report and agrees with it. ACC# ??Date Time ??Exam [id number] Jul 19, 2014 16:51:00 [id number] MRI BRAIN W WO CONTRAST EXAMINATION: ?? Magnetic resonance imaging (MRI) of the brain and brainstem without and with ??contrast HISTORY: ?? Migraine headaches TECHNIQUE: Multiplanar, multisequences of the brain were performed as part of a general brain protocol without and with ??intravenous contrast. Contrast information: 17 mL OptiMARK Comparison: ??No prior available for comparison. FINDINGS: BRAIN: ? There is field inhomogeneity artifact from dental instrumentation which limits evaluation of the frontal lobes, orbits and paranasal sinuses. The scalp and calvarium are normal. The superior sagittal sinus demonstrates normal venous flow. The corpus callosum is normal in shape and signal intensity. The posterior fossa is unremarkable. The pituitary and sella are normal. The brainstem and craniocervical junction are unremarkable. Diffusion and susceptibility weighted sequences are severely degraded secondary to artifact secondary to dental instrumentation. ??The ventricles are normal in size and position without evidence of hydrocephalus. ??There are no areas of abnormal contrast enhancement. The visualized portions of the mastoids are unremarkable.Normal flow voids are demonstrated in the carotid arteries and basilar artery. There is opacification of the right frontal sinus. IMPRESSION: ?? Opacification of the right frontal sinus, otherwise normal brain MRI. Requested By: MICHAEL MARQUEZ PNP Dictated By: ?? KARLIE AVELAR M.D. ??on Jul 19 2014 ??5:29P This document has been electronically signed by: GIL ALEJANDRO MD, PHD on Jul 22 2014 ??9:01A Procedure Note Provider, MD Jesus - 01/01/2017 GIL ALEJANDRO MD, PHD KARLIE AVELAR M.D. FINAL REPORT The radiology attending physician has personally reviewed this study, and has reviewed and/or edited this written report and agrees with it. ACC# Date Time Exam [id number] Jul 19, 2014 16:51:00 [id number] MRI BRAIN W WO CONTRAST EXAMINATION: Magnetic resonance imaging (MRI) of the brain and brainstem without and with contrast HISTORY: Migraine headaches TECHNIQUE: Multiplanar, multisequences of the brain were performed as part of a general brain protocol without and with intravenous contrast. Contrast information: 17 mL OptiMARK Comparison: No prior available for comparison. FINDINGS: BRAIN: There is field inhomogeneity artifact from dental instrumentation which limits evaluation of the frontal lobes, orbits and paranasal sinuses. The scalp and calvarium are normal. The superior sagittal sinus demonstrates normal venous flow. The corpus callosum is normal in shape and signal intensity. The posterior fossa is unremarkable. The pituitary and sella are normal. The brainstem and craniocervical junction are unremarkable. Diffusion and susceptibility weighted sequences are severely degraded secondary to artifact secondary to dental instrumentation. The ventricles are normal in size and position without evidence of hydrocephalus. There are no areas of abnormal contrast enhancement. The visualized portions of the mastoids are unremarkable.Normal flow voids are demonstrated in the carotid arteries and basilar artery. There is opacification of the right frontal sinus. IMPRESSION: Opacification of the right frontal sinus, otherwise normal brain MRI. Requested By: MICHAEL MARQUEZ PNP Dictated By: KARLIE AVELAR M.D. on Jul 19 2014 5:29P This document has been electronically signed by: GIL ALEJANDRO MD, PHD on Jul 22 2014 9:01A us Historical Provider MD [facility] MRI PROCEDURES Final Result documented in this encounter Visit Diagnoses Diagnosis Migraine Migraine, unspecified, without mention of intractable migraine without mention of status migrainosus documented in this encounter
--- OUTSIDE RECORDS SUMMARY | 2024-08-28 02:16 | XMS_ITS | Encounter Summary ---
Author Organization [facility] Facility Care Team Providers Care Foot Gatherer Name Role Phone Unavailable Primary Care Provider Unavailabl e Encounter Details Date Type Department Care Team (Late st Contact Info) Description 05/16/2015 9:59 AM CDT - 05/16/2015 4:00 PM CDT Hospital Encounter [facility] [place] [address] [place] [address] Articular cartilage disorder, forearm; Asthma; Allergic rhinitis Social History Tobacco Use Types Packs/Day Years Used Date Smoking Tobacco: Never Assessed Comments Unknown Sex and Gender Information Value Date Recorded Sex Assigned at Not on file Legal Sex 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 CLINICAL QUALITY ANALYST Gender Identity Not on file Sexual Orientation Not on file documented as of this encounter Miscellaneous Notes * Op Note - Provider, MD Jesus - 05/16/2015 12:00 AM CDT Patient: Nina Coyne Reg No: [id number] [facility] #: [id number] Admit Dt.: 05/16/2015 : 2000 Pt Type: 200 [facility] Attending: Shashank Connor M.D. Surgeon: Shashank Connor M.D. Dictating: Shashank Connor M.D. Service Dt: 05/16/2015 OPERATIVE REPORT FIRST HR GENERALIST: Talat Hernandez M.D. ANESTHESIA: General plus block. PREOPERATIVE DIAGNOSIS (ES): Right wrist pain, possible TFCC tear. POSTOPERATIVE DIAGNOSIS (ES): Right wrist TFCC tear. NAME OF OPERATION: Right wrist arthroscopy with TFCC debridement and repair. INDICATIONS FOR PROCEDURE: The patient is a 15-year-old female with the above-listed diagnosis which has failed conservative treatment, including injection. She has requested the procedure as outlined above. The pros, cons, risks, and benefits of surgery were discussed with the patient and family who understood and wished to proceed. OPERATIVE FINDINGS: Dorsal ulnar tear with satisfactory repair. DESCRIPTION OF PROCEDURE: After informed consent was obtained, the patient was taken to the operating room and laid supine on the operating room table. A general anesthetic was induced and a sterile prep and drape of the right upper extremity was performed. The arm was exsanguinated and a well-padded non-sterile tourniquet was elevated to 280 mmHg. The patient's arm was placed in a [facility] traction tower with 10 pounds of traction on the long and ring fingers. A 3-4 portal was established with a skin incision, blunt dissection down to and through the capsule and placement of the scope in the joint. We needle localized and placed a 6-R portal, as well, using the same technique. We placed a shaver in the 6-R, a scope in the 3-4 portal. The radial side of the joint was in great condition. There was synovitis and fraying dorsally and ulnarly, especially just deep to the ECU tendon sheath. There was some synovitis in the pre-styloid recess, and this was all debrided. There was some loss of the trampoline sign. No other pathology was noted in the radial carpal joint. The mid carpal joint was examined, as well, using the same 3-4 skin incision and blunt dissection to and through the capsule. The mid carpal joint was in good condition. The scapholunate and lunotriquetral were stable. We placed our scope back in the 3-4 portal after examining the lunotriquetral in the 6-R portal. It was in good condition. We extended the 6-R portal proximally, carefully protected the cutaneous nerves, opened the ECU tendon sheath over a very small segment, retracted the tendon and used a Meniscus Mender II set to repair the TFCC with a horizontal mattress using a 2-0 Prolene. Excellent repair was accomplished. The wound was copiously irrigated and closed with a 4-0 nylon in a horizontal mattress-type fashion. A sterile dressing and short arm splint were placed and the patient was taken to the PACU in good condition. There were no complications. SPONGE/INSTRUMENT/NEEDLE COUNTS: Sponge and needle count correct. CONDITION ON DISCHARGE FROM OPERATING ROOM: Disposition to PACU stable. COMPLICATIONS: None. TOURNIQUET TIME: Approximately one hour. PRESENT STATEMENT: Note - I was the attending surgeon. I was present for the entirety of the case. Electronically Signed By Shashank Connor M.D. 05/17/2015 12:49 P Shashank Connor M.D. [facility] #[id number] Editing MT: TD: 05/17/2015 04:53:00 cc: Orthopedic Billing Shashank Connor M.D. documented in this encounter Plan of Treatment Not on file documented as of this encounter Procedures Procedure Name Priority Date/Time Associated Diagnosis Comments URINE CHORIONIC GONADOTROPIN (HCG) Routine 05/16/2015 10:15 AM CDT DISCHARGE LABORATORY CUMULATIVE REPORT 05/16/2015 documented in this encounter Results * Urine chorionic gonadotropin (HCG) (05/16/2015 10:15 AM CDT) HCG, ur Negative HISTORICAL RESULTS Urine 05/16/2015 10:1 5 AM CDT us Shashank Connor MD LAB BLOOD ORDERABLES Neris rick Result HISTORICAL RESULTS * DISCHARGE LABORATORY CUMULATIVE REPORT (05/16/2015) Narrative 05/16/2015 Ordered by an unspecified provider. us Historical Provider LAB BLOOD ORDERABLES Neris l Result documented in this encounter Visit Diagnoses Diagnosis Articular cartilage disorder, forearm Asthma Unspecified asthma Allergic rhinitis Allergic rhinitis, cause unspecified documented in this encounter
--- OUTSIDE RECORDS SUMMARY | 2024-08-28 02:16 | XMS_ITS | Encounter Summary ---
Author Organization [facility] Address [address] [place] [address] [address] [place] [address] Phone Care Team Providers Care Head Of English Name Role Phone Johnna Tinajero MD Primary Care Provider + Reason for Visit * Reason Comments Anxiety/Depression Encounter Details Date Type Department Care Team (Late st Contact Info) Description 06/28/2019 10:00 AM CDT Office Visit [facility] [address] [facility] [address] [place] [address] Johnna Tinajero MD [address] [place] [address] [address] [place] [address] Anxiety and depression (Primary Dx) Social History Tobacco Use Types Packs/Day Years Used Date Smoking Tobacco: Never PHQ-2 Answer Date Recorded PHQ-2 Score 4 06/28/2019 Comments Unknown Sex and Gender Information Value Date Recorded Sex Assigned at Not on file Legal Sex 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 TOMOGRAPHIC TECH Gender Identity Not on file Sexual Orientation Not on file documented as of this encounter Last Filed Vital Signs Vital Sign Reading Time Taken Comments Blood Pressure 120/70 06/28/2019 10:10 AM CDT Pulse - - Temperature - - Respiratory Rate - - Oxygen Saturation - - Inhaled Oxygen Concentration - - Weight 107 kg (235 lb 14.4 oz) 06/28/2019 10:10 AM CDT Height - - Body Mass Index - - documented in this encounter Ordered Prescriptions Prescription Sig Dispense Quantity Refills Last Filled Start Date End Date citalopram (CeleXA) 10 mg tabletIndications: Anxiety and depression Take 1 tablet (10 mg total) by mouth daily 30 tablet 1 06/28/2019 07/13/2019 documented in this encounter Progress Notes * Johnna Tinajero MD - 06/28/2019 10:00 AM CDT 06/28/2019 HISTORY OF PRESENT ILLNESS (with pertinent ROS) Nina Coyne is a 19 y.o. female who presents with mother Chief Complaint Patient presents with ??? Anxiety/Depression HPI: Having sad/bad feelings for months or longer. It got bad maybe a couple of weeks ago or more. Has shared them with her mom. A lot of times feels like it would be better if she weren't here. some daysare ok, some days not good hopeless what's the point No thought of committing suicide or harming herself Mom says she first mentioned it in the Spring. Has talked to her friend Stuart and her mom. Talked to her counselor, she sees her her about every two weeks but not as often recently. Saw her end of last week sort of emergently. She recommended coming to see me. Stomach hurting all the time, hard to eat. Has been sleeping a lot better. Has been going to school every day and is participating in an upcoming show but less that before. Saw Dr. Min, brooch and bracelet maker this summer for irregular menses, did the Provera for 7-8 days, did have a period after that but then not again, duglas blood this morning for repeat blood work to check liver enzymes. Took one large dose of vitamin D yesterday (50,00 international units) She thinks college applications have contributed but just got acceptances so that's good, not thinking about going away. No family or relationship changes . Not thinking about biologic family or stressed with that. Has had longstanding anxiety, seeing counselor since age 11. Has been high functioning despite that but its taking its toll now. Good at masking it but comes out at home. Therapist brought up medication the other day and she is wanting to try that. She has given some ideas about dealing with anxiety but doesn't have time to do it. Has taken the summer off from seeing her counselor over the summer because she was doing well but once school started she started feeling sad again. Was supposed to take ACT Thursday (again) but was too anxious to do it. Review of Symptoms: All review of systems are negative except for as in problem list PHYSICAL EXAM Vitals: 06/28/19 1010 BP: 120/70 Weight: 107 kg (235 lb 14.4 oz) Constitutional: Pt appears well-developed and well-nourished, active, NAD and non-toxic appearance.Is oriented and has normal affect. HEENT: Eyes: Scleral injection: no; Eye Discharge: no Nose: . no abnormalities Mouth/Throat: Mucous membranes are moist. Pharynx/Tonsills: no abnormalities Neck: Neck supple without rigidity. No lymphadenopathy Cardiovascular: Normal rate and regular rhythm, without murmur Pulmonary/Chest: normal work of breathing and good air movement Neurological: alert. Skin: Skin is warm. Capillary refill brisk. No rash noted. PHQ9 score is 17; not suicidal SCARED score is 51 ASSESSMENT/PLAN: 1. Anxiety and depression Discussed natural history and treatment with both medication and continued regular counseling. Reviewed possible med side effects and black box warning. To let mom or counselor know if increase in suicidal thoughts or not tolerating. Depression and Anwiety Care Plan for parents given to mom along with mental health resources sheets. - citalopram (CeleXA) 10 mg tablet; Take 1 tablet (10 mg total) by mouth daily Dispense: 30 tablet;Refill: 1 Parent/patient instructed to call with concerns, or new symptoms/problems develop. Phone follow up in two weeks and office follow up in one month. Sent home with Scared and PHQ9 sheets. Johnna Tinajero MD documented in this encounter Plan of Treatment Not on file documented as of this encounter Visit Diagnoses Diagnosis Anxiety and depression- Primary documented in this encounter Discontinued Medications Medication Sig Discontinue Reason Start Date End Da te cholecalciferol (VITAMIN D-3) 2,000 unit tablet Take 1 tablet by mouth daily. Alternate therapy 06/28/2019 documented as of this encounter Historical Medications * This list may reflect changes made after this encounter. albuterol HFA (PROVENTIL HFA,VENTOLIN HFA,PROAIR HFA) 90 mcg/actuation inhaler Inhale 2 puffs every 6 (six) hours as needed for wheezing or shortness of breath fluticasone propionate (FLONASE) 50 mcg/actuation nasal spray Administer 2 sprays into each nostril daily 10/05/2017 0 VITAMIN D2 50,000 unit capsule TAKE 1 CAPSULE BY MOUTH ONCE A WEEK 0 04/06/2019 9 added in this encounter Care Teams Head Of English Relationship Specialty Start Date End Date Johnna Tinajero MD [address] [place] [id number] PCP - General 12/17/16 07/18/19 documented as of this encounter
--- OUTSIDE RECORDS SUMMARY | 2024-08-28 02:17 | XMS_ITS | Encounter Summary ---
Author Organization [facility] Facility Care Team Providers Care Software Test Developer Name Role Phone Unavailable Primary Care Provider Unavailabl e Encounter Details Date Type Department Care Team (Late st Contact Info) Description 07/16/2013 11:24 PM H[employer]ILER - 07/22/2013 2:35 PM [employer] Hospital Encounter [facility] Johnna Tinajero MD [address] [place] [address] Asthma with status asthmaticus; Acute respiratory failure (HCC); Hypoxemia; Rhinovirus infection in conditions classified elsewhere and of unspecified site; Other specified viral infection, in conditions classified elsewhere and of unspecified site; Anxiety state; Allergic rhinitis; Personal history of allergy to penicillin Social History Tobacco Use Types Packs/Day Years Used Date Smoking Tobacco: Never Assessed Comments Unknown Sex and Gender Information Value Date Recorded Sex Assigned at Not on file Legal Sex 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 H[employer] Gender Identity Not on file Sexual Orientation Not on file documented as of this encounter Last Filed Vital Signs Vital Sign Reading Time Taken Comments Blood Pressure 92/58 07/22/2013 4:24 AM H[employer] SUG[employer] BOILER Pulse 90 07/22/2013 12:22 PM [employer]ER Temperature - - Respiratory Rate - - Oxygen Saturation 100% 07/22/2013 11:40 AM H[employer] SUG[employer] BOILER Inhaled Oxygen Concentration - - Weight 70 kg (154 lb 5.2 oz) 07/16/2013 11:32 PM H[employer] SUGAR BOILER Height - - Body Mass Index 29.16 07/15/2013 8:40 AM H[employer] SUG[employer] BOILER Body Mass Index Percentile 98.26% 07/16/2013 11: 32 PM HIGH RAW SUGAR BOILER Growth Chart: CDC (Girls, 2- 20 Years) documented in this encounter Consult Notes * Provider, MD Jesus - 07/17/2013 12:00 AM CST CONSULTATION REPORT NAME: NINA BAUTISTA RECORD NUMBER: [id number] DATE OF CONSULTATION: 07/17/2013 DATE OF : 2000 CONSULTATION REQUESTING PHYSICIAN: Dr. Nghia Preston PERFORMING PHYSICIAN: Dr. Ad Horn, Pulmonary Medicine REASON FOR CONSULTATION: management of asthma in patient wtih status asthmaticus. HISTORY OF PRESENT ILLNESS: Nina is an 13-year-old female with a known past medical history of persistent asthma who presented to the intensive care unit in status asthmaticus. Mom describes that Nina had 1-2 days of increased rhinorrhea with some cough that progressed overnight, requiring albuterol at home without relief of her symptoms, therefore she was evaluated at an outside hospital and transferred to our intensive care unit after requiring magnesium and methylprednisolone, as well as continuous albuterol. She is currently on albuterol nebulization at 20 mg per hour. She is receiving Atrovent every 6 hours, methylprednisolone, and is on BiPAP of 12/6, but room air. She was noted to have a significant metabolic acidosis of unclear etiology. At this time, she does have a lactic acidosis of 10.1 noted on admission, which has dropped down to 7.1, and the reason for this is not clear at this time. She has been evaluated for possible DKA, but she has not had evidence of ketones in her urine. The hemoglobin A1c was normal. In regards to her asthma history, mom describes that she has had problems with asthma since the age of 4, at which time she was started on Singulair. She has also been on Flovent for several years with no recent change in her medication that mom can recall. Her Singulair was changed in the past year from 4 mg to 5 mg daily. Her current Flovent dose is 110 mcg, 2 puffs twice daily, and she does describe that she uses an AeroChamber. Mom states that Nina is observed taking her medication, and she reports to missing it no more often than a dose once per week. Her asthma had been previously well controlled. She has had multiple hospitalizations in the past, but her most recent hospitalization was in 2006. This is her first Pediatric Intensive Care Unit hospitalization. She has had previous skin testing around the age of 4, and is known to be positive to dust mites and dogs that mom can recall. She also noticed that she has had more symptoms with ragweed as well. As stated, her asthma and allergy symptoms were well controlled in the past. She uses Zyrtec only as needed, and has worsening symptoms usually in the fall, and sometimes in the winter. Lin have been particularly good for her except for this year, and at times she has been taken off of her Flovent during the summertime because she has been well controlled. Her asthma has been managed most recently by Dr. Viktor Rock of [facility], and her last visit was in October of this past year, and mom notes that she is due for further evaluation. While there has been no change in the home, or environment, Nina has had a significant increase in her asthma symptoms this past year. This is her fifth course of oral corticosteroids since August. Between these illnesses, however, mom describes that she is well. She denies any exercise symptoms, and Nina is quite active. She does dance classes 6 hours per week, and plays basketball as well. She had a little bit of limitation with basketball this past summer, but in the past has been remarkably well controlled. She denies nocturnal cough with awakening. REVIEW OF SYSTEMS: Complete ROS performed and as per HPI. Of note, also mom describes that she has had only 2 or 3 ear infections in the past. She has 1-2 sinus infections. She had possible pneumonia when she was age of 4, but no other respiratory infection. She has had no skin infections. She has not had problems with diarrhea, poor growth. She only has snoring on occasion. No problems with awakening in the middle of the night, or parasomnias. All other systems are negative. PAST MEDICAL HISTORY: She was born at full-term, and did not require oxygen or ventilatory support after . She is adopted, and was adopted by her family at the age of 2 months. She was diagnosed with asthma around 4 years of age, and also has known allergic rhinitis. This is moderately well controlled with as needed Zyrtec use. MEDICATIONS: Home medications include: 1. Cetirizine 5 mg as needed. 2. Flovent 110 mcg, 2 puffs twice daily. 3. Albuterol 2 puffs every 4-6 hours as needed. 4. Singulair 5 mg p.o. once daily. ALLERGIES: Penicillin leads to gastrointestinal upset. SOCIAL HISTORY: Nina lives at home with her mother, father, and 2 siblings. They do have a dog which they have had since the age of 6. She is currently in the fifth grade, and doing well in school with good grades. She is active in several activities, including dance. ENVIRONMENT AND EXPOSURE HISTORY: She has had no exposure to anyone with tuberculosis. There is no smoke exposure. The parents live in a single family home with a finished basement. They have central air and change their filters on a regular basis. There is carpet throughout the house. The parents do use dust mite covers on all of her bedding. There is no concern for mold or water damage, or cockroach or mice infestations in the house. FAMILY HISTORY: The patient is adopted, so the family history is limited, but mom recalls that there was no significant diseases that were known to them at the time of adoption. Primary care provider is Dr. Tinajero of [facility]. PHYSICAL EXAM: Temperature max of 36.9, heart rate 133 to 148, respirations 24 to 41, blood pressure 103-117/38-59, with oxygen saturations from 95 to 99% on 21 to 25% FIO2. In general, the patient is lying in bed, moderately tachypneic, but in no acute distress. HEENT shows a BiPAP mask in place. Cardiovascular: She is tachycardic with regular rhythm. No murmurs, rubs, or gallops. Lungs showed decreased breath sounds bilaterally, but no wheezing or rhonchi. She had no retractions. She was moderately tachypneic to the 30s. Abdomen was soft, mildly obese, with no hepatosplenomegaly. Extremities were warm and well perfused without clubbing, cyanosis, or edema. Skin was without rashes or lesions. LABORATORY DATA: Labs and studies revealed a capillary blood gas of pH 7.31, PCO2 of 30, PO2 of 82, lactate on admission was 10.1, and now down to 7.1, sodium 133, potassium 3.3, chloride 105, bicarbonate 13, BUN 12, creatinine 0.8, glucose of 437, and calcium of 9.2. Her white blood cell count was 10.1, hemoglobin of 12.8, and platelets of 154. Her urinalysis showed 3+ glucose, but no ketones. Her multiplex respiratory pathogen PCR was positive for Rhinovirus versus Enterovirus. Hemoglobin A1c was 5.5. IMPRESSION AND RECOMMENDATION: Nina is an 13-year-old female with past medical history of moderate persistent asthma, who presents in status asthmaticus, and has a history of poorly controlled asthma over the past year. Not exactly clear to us at this time why her asthma has been so poorly controlled during this year while she had been so well controlled in the past. Certainly some children do worsen as they enter the adolescent years and puberty, and that may be why we are seeing these effects. Our recommendation at this time for her asthma is to increase her Flovent dose to 220 mcg two puffs twice daily, and increase her Singulair to 10 mg p.o. once daily, and would recommend that she continue to use Zyrtec particularly during the fall and winter months for symptoms of allergic rhinitis. We recommend continued BiPAP use and weaning of her albuterol, and 5-day course of corticosteroids per PICU management. For her metabolic acidosis, we defer to the Pediatric Intensive Care Unit for further evaluation and monitoring. We will continue to follow along with this patient with you during this hospitalization. The patient was seen and discussed with the attending physician who helped develop the above recommendation and plan. Please do not hesitate to contact us if there are any further questions or concerns. Reviewed Abner Elizabeth MD 07/18/2013 10:04 A Abner Elizabeth MD Attestation: I have personally interviewed the family and examined NINA BAUTISTA. I agree with and confirm the findings, assessment, and plan as outlined by Abner Elizabeth MD. 13 y/o with persistent asthma admitted to the PICU in status asthmaticus. Details of PMHx, FHx, SHx and ROS per Dr. Elizabeth's note. On exam, Nina was sleeping comfortably on BiPap. Lungs showed diminished breath sounds throughout. The remainder of her exam is unremarkable. Agree with current management plan. Given her persistent symptoms during the past several months, some discussion of increase in controller regimen will be warranted once she transitions out of the PICU. Details as per Dr. Elizabeth's note above. Edited and Signed Ad Horn MD 07/19/2013 08:38 A Ad Horn MD [facility]:ks2 P #[id number] A #[id number] documented in this encounter Plan of Treatment Not on file documented as of this encounter Procedures Procedure Name Priority Date/Time Associated Diagnosis Comments DISCHARGE LABORATORY CUMULATIVE REPORT Routine 07/22/2013 12:00 AM H[employer] RAW SUGAR BOILER SERUM ALLERGIC BRONCHOPULMONARY ASPERGILLOSIS (ABPA), ASPERGILLUS FUMIGATUS, IGE Routine 07/20/2013 1:49 PM H[employer] RAW SUGAR BOILER SERUM ALLERGIC BRONCHOPULMONARY ASPERGILLOSIS (ABPA) CASCADE Routine 07/20/2013 1:49 PM HIGH RAW SUGAR BOILER PLASMA BASIC METABOLIC PANEL Routine 07/20/2013 6:14 AM H[employer] RAW SUGAR BOILER PLASMA BASIC METABOLIC PANEL Routine 07/19/2013 7:01 AM H[employer] RAW SUGAR BOILER PLASMA BASIC METABOLIC PANEL Routine 07/18/2013 6:13 AM HIGH RAW SUGAR BOILER BLOOD CELL MORPHOLOGIC EXAM Routine 07/18/2013 6:13 AM HIGH RAW SUGAR BOILER BLOOD CELL COUNT (CBC) Routine 3 6:13 AM HIGH RAW SUGAR BOILER BLOOD GLUCOSE, POC Routine 07/18/2013 6: 08 AM HIGH RAW SUGAR BOILER BLOOD GLUCOSE, POC Routine 07/17/2013 5: 58 PM HIGH RAW SUGAR BOILER PLASMA COMPREHENSIVE METABOLIC PANEL Routine 07/17/2013 11:54 AM HIGH RAW SUGAR BOILER BLOOD LACTIC ACID Routine 07/17/2013 11: 54 AM HIGH RAW SUGAR BOILER BLOOD GLUCOSE Routine 07/17/2013 11:54 AM HIGH RAW SUGAR BOILER BLOOD GAS, VENOUS Routine 07/17/2013 11: 54 AM HIGH RAW SUGAR BOILER BLOOD LACTIC ACID Routine 07/17/2013 6:1 6 AM HIGH RAW SUGAR BOILER BLOOD GAS, VENOUS Routine 07/17/2013 6:1 6 AM HIGH RAW SUGAR BOILER PLASMA BASIC METABOLIC PANEL Routine 07/17/2013 5:46 AM HIGH RAW SUGAR BOILER BLOOD LACTIC ACID Routine 07/17/2013 2:0 3 AM HIGH RAW SUGAR BOILER URINE MICROSCOPY Routine 07/17/2013 1:47 AM HIGH RAW SUGAR BOILER URINALYSIS Routine 07/17/2013 1:47 AM HIGH RAW SUGAR BOILER XR CHEST 1 VIEW Routine 07/17/2013 12:54 AM HIGH RAW SUGAR BOILER BLOOD LACTIC ACID Routine 07/17/2013 12: 43 AM HIGH RAW SUGAR BOILER BLOOD GAS, VENOUS Routine 07/17/2013 12: 43 AM HIGH RAW SUGAR BOILER VRE SCREEN, CDR Routine 07/17/2013 12:20 AM HIGH RAW SUGAR BOILER RESPIRATORY PATHOGEN MULTIPLEX PCR, CDR Routine 07/17/2013 12:20 AM HIGH RAW SUGAR BOILER MRSA SURVEILLANCE CULTURE, CDR Routine 07/17/2013 12:20 AM HIGH RAW SUGAR BOILER PLASMA BASIC METABOLIC PANEL Routine 07/17/2013 12:20 AM HIGH RAW SUGAR BOILER BLOOD HEMOGLOBIN A1C Routine 07/17/2013 12:20 AM HIGH RAW SUGAR BOILER BLOOD CELL MORPHOLOGIC EXAM Routine 07/17/2013 12:20 AM HIGH RAW SUGAR BOILER BLOOD CELL COUNT (CBC) Routine 3 12:20 AM HIGH RAW SUGAR BOILER ALL MICROBIOLOGY REPORT SECTION Routine 07/17/2013 12:00 AM HIGH RAW SUGAR BOILER ALL MICROBIOLOGY REPORT SECTION Routine 07/17/2013 12:00 AM HIGH RAW SUGAR BOILER ALL MICROBIOLOGY REPORT SECTION Routine 07/17/2013 12:00 AM HIGH RAW SUGAR BOILER documented in this encounter Results * Discharge Laboratory Cumulative Report (07/22/2013 12:00 AM HIGH RAW SUGAR BOILER) 07/22/2013 Narrative HISTORICAL RESULTS - 07/23/2013 7:33 AM HIGH RAW SUGAR BOILER ? [facility] ?Clinical Laboratories ? [address] ? [place] [id number] Patient Name: ? [facility] Rec Number: ?? [id number] Fin Number: ? [id number] Date: ? 2000 Sex/Age: ?Female 13 years Admit Date: ? 07/16/2013 Discharge Date: ?? 07/22/2013 Doctor: ? Johnna Tinajero Referring Doctor: Fernando Reich III Facility: ? [facility] Location: ? [id number] B Chart Printed: ?07/23/2013 07:33 ?* Abnormal ??C Critical ??f Footnote ??^ Corrected ??L Low ??H High ? i Interp Data ??@ Ref Lab ?Chart Type:Cumulative ?BLOOD GASES ?Venous Blood Gases ?Test: ?? pH ?? pCO2 ?? pO2 ?? Total CO2 ??Base Excess ? Reference: ? Units: ?mmHg ??mmHg ?mmol/L ?mmol/L 07/17/2013 ?? 11:54:00 ?? 7.36 ?? 34 ?68 ? 20 ? -5.1 07/17/2013 ?? 06:16:00 ?? 7.31 ?? 30 ?82 ? 16 ? -10.2 07/17/2013 ?? 00:43:00 ?? 7.27 ?? 29 ?91 ? 14 ? -12.4 ?CO-OXIMETRY ?Venous Co-Oximetry ?Test: ??O2 Saturation ? Reference: ? Units: ?% 07/17/2013 ?? 11:54:00 ?91.8 07/17/2013 ?? 06:16:00 ?94.6 07/17/2013 ?? 00:43:00 ?95.2 ? SELECTED ELECTROLYTES ?Test: ?? Sodium ?Plasma Potassium ?? Chloride ? Reference: ??[135-145] ?[3.3-4.9] ?[100-114] ? Units: ?? mmol/L ? mmol/L ? mmol/L 07/20/2013 ?? 06:14:00 ?138 ? Hemolyzed ??f ? 110 07/19/2013 ?? 07:01:00 ?140 ? Hemolyzed ??f ? 115 ??H 07/18/2013 ?? 06:13:00 ?139 ?4.5 ??f ?116 ??H 07/17/2013 ?? 11:54:00 ?135 ?3.1 ??L ?110 07/17/2013 ?? 05:46:00 ?133 ??L ?3.3 ?105 07/17/2013 ?? 00:20:00 ?136 ?2.6 ??L ?105 07/20/2013 06:14:00 ??Plasma Potassium: Hemolyzed; result unreliable. 07/19/2013 07:01:00 ??Plasma Potassium: Hemolyzed; result unreliable. 07/18/2013 06:13:00 ??Plasma Potassium: Hemolyzed; result may be falsely elevated. ? SELECTED ELECTROLYTES ?Test: ??Total CO2 ??Anion Gap ? Reference: ?? [20-30] ? Units: ?? mmol/L ? mmol/L 07/20/2013 ?? 06:14:00 ? 21 ?6 07/19/2013 ?? 07:01:00 ? 16 ??L ?9 07/18/2013 ?? 06:13:00 ? 13 ??L ?9 07/17/2013 ?? 11:54:00 ? 16 ??L ?9 07/17/2013 ?? 05:46:00 ? 13 ??L ? 15 07/17/2013 ?? 00:20:00 ? 12 ??L ? 20 ? STANDARD BLOOD CHEMISTRY ?Test: ?? BUN ?Creatinine ??Total Bilirubin ??Glucose i ? Reference: ??[9-18] ?? [0.2-0.8] ?[0.0-1.2] ?[70-199] ? Units: ??mg/dL ? mg/dL ?mg/dL ? mg/dL 07/20/2013 ?? 06:14:00 ? 11 ?0.6 ?118 07/19/2013 ?? 07:01:00 ? 10 ?0.5 ?233 ??H 07/18/2013 ?? 06:13:00 ? 12 ?0.6 ?146 07/17/2013 ?? 11:54:00 ? 13 ?0.7 ?0.2 ? 305 ??H 07/17/2013 ?? 05:46:00 ? 12 ?0.8 ?437 ??Cf 07/17/2013 ?? 00:20:00 ? 10 ?0.8 ?391 ??H 07/17/2013 00:20:00 Glucose: Interpretive Data Random glucose greater than or equal to 200 mg/dL with relevant clinical symptoms is diagnostic for diabetes when repeated on a subsequent day. Reference: Diabetes Care 2005;28:S37-S42. Current interpretive data was last revised on 2013. 07/17/2013 05:46:00 ??Glucose: Repeated and verified.Critical test result called to Dr Sue on 07/17/2013 06:23:19 HIGH RAW SUGAR BOILER by TDM. Critical result read back by Dr Sue on 07/17/2013 06:23:25 HIGH RAW SUGAR BOILER to TDM. ?Test: ??Total Calcium ??Plasma Total Protein ?? Albumin ? Reference: ?? [8.6-10.3] ? [6.5-8.5] ?[3.2-5.0] ? Units: ?mg/dL ?g/dL ? g/dL 07/20/2013 ?? 06:14:00 ?9.0 07/19/2013 ?? 07:01:00 ?8.9 07/18/2013 ?? 06:13:00 ?8.8 07/17/2013 ?? 11:54:00 ?8.7 ?6.6 ?3.8 07/17/2013 ?? 05:46:00 ?9.2 07/17/2013 ?? 00:20:00 ?9.3 ?Whole Blood Standard Chemistry ?Test: ??Whole Blood Glucose ? Reference: ? [70-199] ? Units: ? mg/dL 07/17/2013 ?? 11:54:00 ? 292 ??H ?GLYCATED HEMOGLOBIN TESTING ?Test: ??Hemoglobin A1C ? Reference: ?[4.9-6.2] ? Units: ?% 07/17/2013 ?? 00:20:00 ? 5.5 ?ENZYMES ?Test: ??Alkaline Phosphatase ?ALT ?AST ? Reference: ? [130-550] ?[10-40] ??[10-60] ? Units: ?Units/L ? Units/L ??Units/L 07/17/2013 ?? 11:54:00 ?223 ? 22 ? 17 ?METABOLITES ?Test: ??Lact Rapid ? Reference: ??[0.5-2.0] ? Units: ?mmol/L 07/17/2013 ?? 11:54:00 ? 1.7 07/17/2013 ?? 06:16:00 ? 7.1 ??H 07/17/2013 ?? 02:03:00 ?10.6 ??Cf 07/17/2013 ?? 00:43:00 ?10.2 ??Cf 07/17/2013 02:03:00 ??Lact Rapid: Critical test result called to Dr. Sue/REEMA on 07/17/2013 01:35:23 H[employer] BOILER by [facility]. Critical result read back by Dr. Sue/REEMA on 07/17/2013 01:35:35 HIGH RAW SUGAR BOILER to jtc. 07/17/2013 00:43:00 ??Lact Rapid: Quantity not sufficient to retest. Critical test result called to Dr. Sue/REEMA on 07/17/2013 01:35:23 HIGH RAW SUGAR BOILER by [facility]. Critical result read back by Dr. Sue/REEMA on 07/17/2013 01:35:35 HIGH RAW SUGAR BOILER to jtc. ?URINALYSIS ?Macroscopic ?Test: ??Color ?? Clarity ??Specific [place] ?? pH ? Reference: ?[Clear] ?[1.008-1.022] ? Units: 07/17/2013 ?? 01:47:00 ?? Yellow ?? Clear ? 1.029 ??H ?5.0 ?Test: ?? Albumin ? Glucose ? Ketones ?Bilirubin ? Reference: ??[Negative] ??[Negative] ??[Negative] ??[Negative] ? Units: 07/17/2013 ?? 01:47:00 ?Negative ? 3+ ??*f ?Trace ??*f ?? Negative 07/17/2013 01:47:00 ??Glucose: Critical test result called to Acacia jeweler apprentice on 07/17/2013 02:19:36 HIGH RAW SUGAR BOILER by . Critical result read back by Acacia on 07/17/2013 02:19:42 HIGH RAW SUGAR BOILER to SB. ?URINALYSIS ?Macroscopic 07/17/2013 01:47:00 ??Ketones: Critical test result called to Acacia jeweler apprentice on 07/17/2013 02:19:36 HIGH RAW SUGAR BOILER by SB. Critical result read back by Acacia on 07/17/2013 02:19:42 HIGH RAW SUGAR BOILER to SB. ?Test: ?Blood ? Urobilinogen ?Nitrite ? Reference: ??[Negative] ?[Negative] ? Units: ? EhrUnit/dL 07/17/2013 ?? 01:47:00 ?Negative ?0.2 ?Negative ?Test: ??Leuk Esterase ? Reference: ?? [Negative] ? Units: 07/17/2013 ?? 01:47:00 ?Negative ?Microscopic ?Test: ?RBC ?WBC ?Epithl, Renal ? Reference: ??[None Seen] ??[None Seen] ?? [None Seen] ? Units: 07/17/2013 ?? 01:47:00 ?None Seen ?None Seen ? None Seen ? COMPLETE BLOOD COUNT ?Test: ? WBC ?RBC ?Hgb ? Reference: ??[4.5-13.5] ??[4.00-5.20] ??[11.5-15.5] ? Units: ?K/cumm ? M/cumm ?g/dL 07/18/2013 ?? 06:13:00 ?26.8 ??Cf ? 4.39 ? 12.2 07/17/2013 ?? 00:20:00 ?10.1 ? 4.62 ? 12.8 07/18/2013 06:13:00 ??WBC: Critical test result called to Daniel(md-7icu) on 07/18/2013 06:48:22 HIGH RAW SUGAR BOILER by . Critical result read back by Daniel(md-7icu) on 07/18/2013 06:48:32 HIGH RAW SUGAR BOILER to . ?Test: ?Hct ?Platelet Ct ?MCV ? Reference: ??[35.0-45.0] ?? [140-440] ?? [77.0-95.0] ? Units: ? % ?K/cumm ? fL 07/18/2013 ?? 06:13:00 ? 36.8 ?380 ??f ?83.8 07/17/2013 ?? 00:20:00 ? 39.6 ?154 ?85.7 07/18/2013 06:13:00 ??Platelet Ct: Repeated and verified. ?Test: ?MCH ?MCHC ?RDW ? Reference: ??[25.0-33.0] ??[32.7-35.5] ??[11.8-14.6] ? Units: ?pg ?g/dL ? % 07/18/2013 ?? 06:13:00 ? 27.8 ? 33.2 ? 14.4 07/17/2013 ?? 00:20:00 ? 27.7 ? 32.3 ??L ? 13.9 ? COMPLETE BLOOD COUNT ?Test: ? MPV ?NRBC Auto ? Reference: ??[8.1-11.9] ? Units: ?fL ? /100WBC 07/18/2013 ?? 06:13:00 ? 9.9 ? 0.0 07/17/2013 ?? 00:20:00 ?10.3 ?0.0 ?MORPHOLOGIC EXAMINATION ?Test: ??Cells Diffed ??Band Neutrophil ??Seg Neutrophil ? Reference: ? [0-4] ? [33-70] ? Units: ? Cells ? % ?% 07/18/2013 ?? 06:13:00 ?100 ?1 ? 86 ??H 07/17/2013 ?? 00:20:00 ?100 ?97 ??H ?Test: ??Lymphocyte ??Monocyte ??Platelet Estimate ? Reference: ?? [21-55] ? [3-13] ? [Adequate] ? Units: ?% ?% 07/18/2013 ?? 06:13:00 ?5 ??L ?8 ?Adequate 07/17/2013 ?? 00:20:00 ?2 ??L ? 1 ??L ?Adequate ?Test: ??Poikilocytosis ?? Tear Drops ? Reference: ?? [None Seen] ?[None Seen] ? Units: 07/18/2013 ?? 06:13:00 ? Slight ??* ?1 - 10 % ??* 07/17/2013 ?? 00:20:00 ? Slight ??* ?1 - 10 % ??* ? ALLERGENS ? Mold ?Test: ?? IgE ABPA ?Asper fum ABPA ? Reference: ??[3.1-110.8] ?[0.00-0.34] ? Units: ?? IUnits/mL ?kUnits/L 07/20/2013 ?? 13:49:00 ?445.9 ??H ?<0.34 ? GENERAL MICROBIOLOGY ? PROCEDURE: MRSA Surveillance Culture ?SOURCE: Nasal COLLECTED: 07/17/13 ??0020 ? BODY SITE: STARTED: 07/17/13 ??0300 FREE TEXT SOURCE: FINAL REPORT REPORTED: 07/18/13 0313 Negative ? GENERAL MICROBIOLOGY ? PROCEDURE: VRE Screen Culture ?SOURCE: Rectal swab COLLECTED: 07/17/13 ??0020 ? BODY SITE: STARTED: 07/17/13 ??0039 FREE TEXT SOURCE: FINAL REPORT REPORTED: 07/19/13 1051 Negative ? VIROLOGY ? PROCEDURE: Respiratory Pathogen Multiplex PCR ?SOURCE: Nasopharyngeal COLLECTED: 07/17/13 ??0020 ? BODY SITE: STARTED: 07/17/13 ??0028 FREE TEXT SOURCE: FINAL REPORT REPORTED: 07/17/13 0148 Respiratory Pathogen nucleic acids DETECTED (POSITIVE) for the following: Rhinovirus/Enterovirus Test result called to and read back by MCKAY/Coni Gay on 07/17/13 at 0145 by Virology Lab/Leonora Stoner * * * ??Interpretive Results ??* * * (1)The [employer] (formerly known as [employer]) FilmArray Respiratory Panel (RP) assay is a [...] FilmArray RP assay cannot reliably differentiate them. The FilmArray RP assay currently detects Adenovirus species C serotypes 2 and 6 with reduced sensitivity. If there is clinical suspicion for Adenovirus infection, consider ordering Adenovirus PCR which can be performed on the same sample that was submitted for the multiplex PCR. Coronavirus OC43 may cross-react with some isolates of Coronavirus HKU1. ??A dual positive result may be due to cross-reactivity or may indicate a co-infection.The detection and identification of specific viral and [...] FilmArray RP assay is FDA cleared for BALL MAKER swabs. ??Additional sample types have been validated according to CLIA regulations. ??The performance characteristics of this assay have been determined by [facility].Current interpretive data was last revised on 2012. ? VIROLOGY ? PROCEDURE: Respiratory Pathogen Multiplex PCR ?SOURCE: Nasopharyngeal COLLECTED: 07/17/13 ??0020 ? BODY SITE: STARTED: 07/17/13 ??0028 FREE TEXT SOURCE: ?CANCELED ORDERS Drawn Date: ??Drawn Time: ??Test: ? Cancel Reason: 07/17/2013 ?? 00:20:00 ? Blood Gas Venous, [facility] ?[facility] Clotted 07/17/2013 ?? 00:20:00 ? Differential Automated, ? Reflex order cancel ? [facility] 07/17/2013 ?? 05:46:00 ? Blood Gas Venous, [facility] ?[facility] Clotted 07/17/2013 ?? 05:46:00 ? Lactate Rapid Whole Blood ?? [facility] Clotted ? [facility] 07/18/2013 ?? 06:13:00 ? Differential Automated, ? Reflex order cancel ? [facility] Historical Provider MD LAB BLOOD ORDERABLES Neris l Result Performing Organization Address [facility] de Phone Number HISTORICAL RESULTS * Serum allergic bronchopulmonary Aspergillosis (ABPA), Aspergillus fumigatus, IgE (07/20/2013 1:49 PM HIGH RAW SUGAR [employer]ILER) Aspergillus fumigatus ab, IgE, total <0.34 0.00 - 0.34 KUnit/L HISTORICAL RESULTS Serum 07/20/2013 1:49 PM HIGH RAW [employer] Historical Provider MD LAB BLOOD ORDERABLES Neris l Result Performing Organization Address [facility] de Phone Number HISTORICAL RESULTS * (ABNORMAL) Serum allergic bronchopulmonary Aspergillosis (ABPA) cascade (07/20/2013 1:49 PM HIGH RAW [employer]) IgE 445.9(H) 3.1 - 110.8 IUnits/ml HISTORICAL RESULTS Serum 07/20/2013 1:49 PM HIGH RAW [employer] Historical Provider LAB BLOOD ORDERABLES Neris l Result Performing Organization Address [facility] de Phone Number HISTORICAL RESULTS * Plasma basic metabolic panel (07/20/2013 6:14 AM HIGH RAW [employer]) Sodium 138 135 - 145 mmol/L HISTORICAL RESULTS K, pl Hemolyzed 3.3 - 4.9 mmol/L HISTORICAL RESULTS Comment:{Hemolyzed; result u nreliable.} Chloride 110 100 - 114 mmol/L HISTORICAL RESULTS CO2 21 20 - 30 mmol/L HISTORICAL RESULTS A. gap 6 mmol/L HISTORICAL RESULTS Glucose 118 70 - 199 mg/dl HISTORICAL RESULTS Comment: Interpretive Data Random glucose greater than or equal to 200 mg/dL with relevant clinical symptoms is diagnostic for diabetes when repeated on a subsequent day. Reference: Diabetes Care 2005;28:S37-S42. Current interpretive data was last revised on 2013. BUN 11 9 - 18 mg/dl HISTORICAL RESULTS Creatinine 0.6 0.2 - 0.8 mg/dl HISTORICAL RESULTS Calcium 9.0 8.6 - 10.3 mg/dl HISTORICAL RESULTS Plasma 07/20/2013 6:14 AM H[employer] RAW [employer] Historical Provider LAB BLOOD ORDERABLES Neris l Result Performing Organization Address [facility] de Phone Number HISTORICAL RESULTS * (ABNORMAL) Plasma basic metabolic panel (07/19/2013 7:01 AM HIGH RAW [employer]) Sodium 140 135 - 145 mmol/L HISTORICAL RESULTS K, pl Hemolyzed 3.3 - 4.9 mmol/L HISTORICAL RESULTS Comment:{Hemolyzed; result u nreliable.} Chloride 115(H) 100 - 114 mmol/L HISTORICAL RESULTS CO2 16(L) 20 - 30 mmol/L HISTORICAL RESULTS A. gap 9 mmol/L HISTORICAL RESULTS Glucose 233(H) 70 - 199 mg/dl HISTORICAL RESULTS Comment: Interpretive Data Random glucose greater than or equal to 200 mg/dL with relevant clinical symptoms is diagnostic for diabetes when repeated on a subsequent day. Reference: Diabetes Care 2005;28:S37-S42. Current interpretive data was last revised on 2013. BUN 10 9 - 18 mg/dl HISTORICAL RESULTS Creatinine 0.5 0.2 - 0.8 mg/dl HISTORICAL RESULTS Calcium 8.9 8.6 - 10.3 mg/dl HISTORICAL RESULTS Plasma 07/19/2013 7:01 AM HIGH RAW [employer] Historical Provider LAB BLOOD ORDERABLES Neris l Result Performing Organization Address [facility] Co de Phone Number HISTORICAL RESULTS * (ABNORMAL) Plasma basic metabolic panel (07/18/2013 6:13 AM HIGH RAW [employer]) Sodium 139 135 - 145 mmol/L HISTORICAL RESULTS K, pl 4.5 3.3 - 4.9 mmol/L HISTORICAL RESULTS Comment:{Hemolyzed; result m ay be falsely elevated.} Chloride 116(H) 100 - 114 mmol/L HISTORICAL RESULTS CO2 13(L) 20 - 30 mmol/L HISTORICAL RESULTS A. gap 9 mmol/L HISTORICAL RESULTS Glucose 146 70 - 199 mg/dl HISTORICAL RESULTS Comment: Interpretive Data Random glucose greater than or equal to 200 mg/dL with relevant clinical symptoms is diagnostic for diabetes when repeated on a subsequent day. Reference: Diabetes Care 2005;28:S37-S42. Current interpretive data was last revised on 2013. BUN 12 9 - 18 mg/dl HISTORICAL RESULTS Creatinine 0.6 0.2 - 0.8 mg/dl HISTORICAL RESULTS Calcium 8.8 8.6 - 10.3 mg/dl HISTORICAL RESULTS Plasma 07/18/2013 6:13 AM HIGH RAW [employer] Historical Provider LAB BLOOD ORDERABLES Neris l Result Performing Organization Address City/[facility] Co de Phone Number HISTORICAL RESULTS * (ABNORMAL) Blood cell count (CBC) (07/18/2013 6:13 AM HIGH RAW [employer]) RBC 4.39 4.00 - 5.20 M/cumm HISTORICAL RESULTS Hgb 12.2 11.5 - 15.5 g/dl HISTORICAL RESULTS Hct 36.8 35.0 - 45.0 % HISTORICAL RESULTS MCV 83.8 77.0 - 95.0 fl HISTORICAL RESULTS MCH 27.8 25.0 - 33.0 pg HISTORICAL RESULTS MCHC 33.2 32.7 - 35.5 g/dl HISTORICAL RESULTS Rdw 14.4 11.8 - 14.6 % HISTORICAL RESULTS Platelets 380 140 - 440 K/cumm HISTORICAL RESULTS Comment:{Repeated and verifi ed.} MPV 9.9 8.1 - 11.9 fl HISTORICAL RESULTS NRBC 0.0 #/100 WBC HISTORICAL RESULTS WBC 26.8(C) 4.5 - 13.5 K/cumm HISTORICAL RESULTS Comment: Critical test result called to Daniel(kenton) on 07/18/2013 06:48:22 HIGH RAW [employer] by ra. Critical result read back by Daniel(kenton) on 07/18/2013 06:48:32 HIGH RAW [employer] to ra. Blood specimen (specimen) 07/18/2013 6:13 AM HIGH RAW [employer] Historical Provider LAB BLOOD ORDERABLES Neris l Result Performing Organization Address City/[facility] Co de Phone Number HISTORICAL RESULTS * (ABNORMAL) Blood cell morphologic exam (07/18/2013 6:13 AM HIGH RAW [employer]GAR [employer]ER) Pathologist [facility] Neutrophilic bands 1 0 - 4 % HISTORICAL RESULTS Neutrophils 86(H) 33 - 70 % HISTORIC AL RESULTS Lymphocytes 5(L) 21 - 55 % HISTORIC AL RESULTS Monos 8 3 - 13 % HISTORICAL RESULTS WBC counted 100 # of cells HISTORI LETY RESULTS Platelet estimate Adequate Adequate HI STORICAL RESULTS Poikilocytosis Trace(A) None Seen HISTO RICAL RESULTS Teardrop cells 1 - 10 %(A) None Seen HIS TORICAL RESULTS Blood specimen (specimen) 07/18/2013 6:13 AM HIGH RAW [employer] Historical Provider LAB BLOOD ORDERABLES Neris l Result Performing Organization Address City/[facility]/ZIP Co de Phone Number HISTORICAL RESULTS * Blood glucose, POC (07/18/2013 6:08 AM HIGH RAW [employer]) Glucose, POC, bld 126 70 - 199 mg/dl HISTORICAL RESULTS Blood specimen (specimen) 07/18/2013 6:08 AM HIGH RAW [employer] Historical Provider LAB BLOOD ORDERABLES Neris rick Result Performing Organization Address [facility] de Phone Number HISTORICAL RESULTS * Blood glucose, POC (07/17/2013 5:58 PM HIGH RAW [employer]) Glucose, POC, bld 176 70 - 199 mg/dl HISTORICAL RESULTS Blood specimen (specimen) 07/17/2013 5:58 PM HIGH RAW [employer] Historical Provider LAB BLOOD ORDERABLES Neris l Result Performing Organization Address [facility] de Phone Number HISTORICAL RESULTS * (ABNORMAL) Plasma comprehensive metabolic panel (07/17/2013 11:54 AM HIGH RAW [employer]) Sodium 135 135 - 145 mmol/L HISTORICAL RESULTS K, pl 3.1(L) 3.3 - 4.9 mmol/L HISTORICAL RESULTS Chloride 110 100 - 114 mmol/L HISTORICAL RESULTS CO2 16(L) 20 - 30 mmol/L HISTORICAL RESULTS A. gap 9 mmol/L HISTORICAL RESULTS Glucose 305(H) 70 - 199 mg/dl HISTORICAL RESULTS Comment: Interpretive Data Random glucose greater than or equal to 200 mg/dL with relevant clinical symptoms is diagnostic for diabetes when repeated on a subsequent day. Reference: Diabetes Care 2005;28:S37-S42. Current interpretive data was last revised on 2013. BUN 13 9 - 18 mg/dl HISTORICAL RESULTS Creatinine 0.7 0.2 - 0.8 mg/dl HISTORICAL RESULTS Calcium 8.7 8.6 - 10.3 mg/dl HISTORICAL RESULTS Protein, pl 6.6 6.5 - 8.5 g/dl HISTORICAL RESULTS Alb 3.8 3.2 - 5.0 g/dl HISTORICAL RESULTS Bilirubin 0.2 0.0 - 1.2 mg/dl HISTORICAL RESULTS Alk phos 223 130 - 550 Units/L HISTORICAL RESULTS AST 17 10 - 60 Units/L HISTORICAL RESULTS ALT 22 10 - 40 Units/L HISTORICAL RESULTS Plasma 07/17/2013 11:5 4 AM HIGH RAW [employer]GAR [employer] Result [facility] Historical Provider LAB BLOOD ORDERABLES Neris rick Result HISTORICAL RESULTS * Blood gas, venous (07/17/2013 11:54 AM HIGH RAW SUG[employer]) pH, solis 7.36 HISTORICAL RESULTS PCO2, solis 34 mm Hg HISTORICAL RESULTS PO2, solis 68 mm Hg HISTORICAL RESULTS CO2, solis, calc 20 mmol/L HISTO RICAL RESULTS BE,solis -5.1 mmol/L HISTORICAL RESULTS O2 sat, solis 91.8 % HISTORIC AL RESULTS Venous blood 07/17/2013 11:5 4 AM HIGH RAW [employer] Result [facility] Historical Provider LAB BLOOD ORDERABLES Neris rick Result Performing Organization Address [facility] de Phone Number HISTORICAL RESULTS * Blood lactic acid (07/17/2013 11:54 AM HIGH RAW [employer]) Lactic acid 1.7 0.5 - 2.0 mmol/L HISTORICAL RESULTS Blood specimen (specimen) 07/17/2013 11:54 AM HIGH RAW [employer] Result [facility] Historical Provider LAB BLOOD ORDERABLES Neris rick Result Performing Organization Address [facility] Co de Phone Number HISTORICAL RESULTS * (ABNORMAL) Blood glucose (07/17/2013 11:54 AM HIGH RAW [employer]ER) Glucose, bld 292(H) 70 - 199 mg/dl HISTORICAL RESULTS Blood specimen (specimen) 07/17/2013 11:54 AM HIGH RAW [employer] Historical Provider LAB BLOOD ORDERABLES Neris rick Result HISTORICAL RESULTS * (ABNORMAL) Blood lactic acid (07/17/2013 6:16 AM HIGH RAW [employer]) Lactic acid 7.1(H) 0.5 - 2.0 mmol/L HISTORICAL RESULTS Blood specimen (specimen) 07/17/2013 6:16 AM HIGH RAW [employer] Historical Provider LAB BLOOD ORDERABLES Neris l Result Performing Organization Address [facility] Co de Phone Number HISTORICAL RESULTS * Blood gas, venous (07/17/2013 6:16 AM HIGH RAW [employer]ER) pH, solis 7.31 HISTORICAL RESULTS PCO2, solis 30 mm Hg HISTORICAL RESULTS PO2, solis 82 mm Hg HISTORICAL RESULTS CO2, solis, calc 16 mmol/L HISTO RICAL RESULTS BE,solis -10.2 mmol/L HISTORICAL RESULTS O2 sat, solis 94.6 % HISTORIC AL RESULTS Venous blood 07/17/2013 6:16 AM HIGH RAW [employer]GAR [employer]ER Result [facility] Historical Provider LAB BLOOD ORDERABLES Neris l Result Performing Organization Address [facility] de Phone Number HISTORICAL RESULTS * (ABNORMAL) Plasma basic metabolic panel (07/17/2013 5:46 AM HIGH RAW [employer]GAR [employer]ER) Sodium 133(L) 135 - 145 mmol/L HISTORICAL RESULTS K, pl 3.3 3.3 - 4.9 mmol/L HISTORICAL RESULTS Chloride 105 100 - 114 mmol/L HISTORICAL RESULTS CO2 13(L) 20 - 30 mmol/L HISTORICAL RESULTS A. gap 15 mmol/L HISTORICAL RESULTS BUN 12 9 - 18 mg/dl HISTORICAL RESULTS Creatinine 0.8 0.2 - 0.8 mg/dl HISTORICAL RESULTS Calcium 9.2 8.6 - 10.3 mg/dl HISTORICAL RESULTS Glucose 437(C) 70 - 199 mg/dl HISTORICAL RESULTS Comment: Repeated and verified.Critical test result called to Dr Sue on 07/17/2013 06:23:19 HIGH RAW [employer] by TD. Critical result read back by Dr Sue on 07/17/2013 06:23:25 HIGH RAW [employer]GAR [employer] to TDM. Interpretive Data Random glucose greater than or equal to 200 mg/dL with relevant clinical symptoms is diagnostic for diabetes when repeated on a subsequent day. Reference: Diabetes Care 2005;28:S37-S42. Current interpretive data was last revised on 2013. Plasma 07/17/2013 5:46 AM HIGH RAW [employer]GAR [employer] Historical Provider LAB BLOOD ORDERABLES Neris l Result Performing Organization Address [facility] Co de Phone Number HISTORICAL RESULTS * (ABNORMAL) Blood lactic acid (07/17/2013 2:03 AM HIGH RAW [employer]) Lactic acid 10.6(C) 0.5 - 2.0 mmol/L HISTORICAL RESULTS Comment: Critical test result called to Dr. Sue/PICU on 07/17/2013 01:35:23 HIGH RAW [employer]GAR [employer]ER by [facility]. Critical result read back by Dr. Sue/PICU on 07/17/2013 01:35:35 HIGH RAW [employer]GAR [employer]ER to [facility]. Blood specimen (specimen) 07/17/2013 2:03 AM HIGH RAW SUGAR [employer]ER us Historical Provider LAB BLOOD ORDERABLES Neris rick Result Performing Organization Address [facility] de Phone Number HISTORICAL RESULTS * (ABNORMAL) Urinalysis (07/17/2013 1:47 AM HIGH RAW [employer]GAR [employer]ER) Color, ur Yellow HISTORICAL RESULTS Clarity, ur Clear Clear HISTORIC AL RESULTS Specific gravity, ur 1.029(H) 1.008 - 1.022 HISTORICAL RESULTS pH, ur 5.0 HISTORICAL RESULTS Protein, ur Negative Negative HISTORIC AL RESULTS Glucose, ur 3+(A) Negative HISTORIC AL RESULTS Comment: Critical test result called to Acacia DOSHI PICu on 07/17/2013 02:19:36 HIGH RAW [employer] by CACHORRO. Critical result read back by Acacia on 07/17/2013 02:19:42 HIGH RAW SUGAR [employer]ER to CACHORRO. Ketones, ur Trace(A) Negative HISTORIC AL RESULTS Comment: Critical test result called to Acacia DOSHI PICu on 07/17/2013 02:19:36 HIGH RAW SUGAR [employer]ER by CACHORRO. Critical result read back by Acacia on 07/17/2013 02:19:42 HIGH RAW SUGAR [employer]ILER to SB. Bilirubin, ur Negative Negative HISTOR ICAL RESULTS U Blood Negative Negative HISTORICAL RESULTS Urobilinogen, quant, ur 0.2 Ana Units/dl HISTORICAL RESULTS Nitrites, ur Negative Negative HISTORI LETY RESULTS Leukocyte esterase, ur Negative Negative HISTORICAL RESULTS Urine 07/17/2013 1:47 AM HIGH RAW SUGAR [employer] us Historical Provider LAB BLOOD ORDERABLES Neris rikc Result Performing Organization Address [facility] Co de Phone Number HISTORICAL RESULTS * Urine microscopy (07/17/2013 1:47 AM HIGH RAW [employer]GAR [employer]ER) RBC, ur None Seen None Seen HISTORICAL RESULTS WBC, ur None Seen None Seen HISTORICAL RESULTS Epithelial cells, renal, ur None Seen None Seen HISTORICAL RESULTS Urine 07/17/2013 1:47 AM HIGH RAW [employer]GAR [employer] us Historical Provider LAB BLOOD ORDERABLES Neris l Result HISTORICAL RESULTS * XR Chest 1 Vw (07/17/2013 12:54 AM HIGH RAW [employer]GAR [employer]ER) Anatomical Region Laterality Modality Body, Chest N/A Radiographic Ria ging 07/17/2013 12:5 4 AM HIGH RAW [employer]ER Narrative 07/17/2013 10:06 AM HIGH RAW [employer]GAR [employer]ER TEMI HERNANDEZ M.D. RAKESH HUDSON M.D. FINAL REPORT The radiology attending physician has personally reviewed this study, and has reviewed and/or edited this written report and agrees with it. ACC# ??Date Time ??Exam [id number] Jul 17, 2013 00:54:00 [id number] CHEST 1 VIEW EXAMINATION: ??Exam: AP chest HISTORY: 13-year-old female with asthma exacerbation FINDINGS: A comparison is made to the prior exam dated 09/22/2006. The mediastinal and cardiac silhouettes are normal. Both lungs are clear. There is no pleural effusion or pneumothorax. The osseous structures are unremarkable. ?? IMPRESSION: Normal chest. ?? Requested By: JULY SUE M.D. Dictated By: ?? RAKESH HUDSON M.D. ??on Jul 17 2013 ??8:33A This document has been electronically signed by: TEMI HERNANDEZ M.D. on Jul 17 2013 10:06A Procedure Note Provider, MD Jesus - 01/01/2017 TEMI HERNANDEZ M.D. RAKESH HUDSON M.D. FINAL REPORT The radiology attending physician has personally reviewed this study, and has reviewed and/or edited this written report and agrees with it. ACC# Date Time Exam [id number] Jul 17, 2013 00:54:00 [id number] CHEST 1 VIEW EXAMINATION: Exam: AP chest HISTORY: 13-year-old female with asthma exacerbation FINDINGS: A comparison is made to the prior exam dated 09/22/2006. The mediastinal and cardiac silhouettes are normal. Both lungs are clear. There is no pleural effusion or pneumothorax. The osseous structures are unremarkable. IMPRESSION: Normal chest. Requested By: JULY SUE M.D. Dictated By: RAKESH HUDSON M.D. on Jul 17 2013 8:33A This document has been electronically signed by: TEMI HERNANDEZ M.D. on Jul 17 2013 10:06A Historical Provider [facility] XR PROCEDURES Final R esult * (ABNORMAL) Blood lactic acid (07/17/2013 12:43 AM HIGH RAW SUGAR BOILER) Pathologist [facility] Lactic acid 10.2(C) 0.5 - 2.0 mmol/L HISTORICAL RESULTS Comment: Quantity not sufficient to retest. ?? Critical test result called to Dr. Sue/PICU on 07/17/2013 01:35:23 HIGH RAW [employer] by [facility]. Critical result read back by Dr. Sue/PICU on 07/17/2013 01:35:35 HIGH RAW SUGAR BO[employer]ER to [facility]. Blood specimen (specimen) 07/17/2013 12:43 AM HIGH RAW SUGAR BOILER Result [facility] Historical Provider LAB BLOOD ORDERABLES Neris l Result Performing Organization Address [facility] Co de Phone Number HISTORICAL RESULTS * Blood gas, venous (07/17/2013 12:43 AM HIGH RAW SUGAR BOILER) pH, solis 7.27 HISTORICAL RESULTS PCO2, solis 29 mm Hg HISTORICAL RESULTS PO2, solis 91 mm Hg HISTORICAL RESULTS CO2, solis, calc 14 mmol/L HISTO RICAL RESULTS BE,solis -12.4 mmol/L HISTORICAL RESULTS O2 sat, solis 95.2 % HISTORIC AL RESULTS Venous blood 07/17/2013 12:4 3 AM HIGH RAW [employer] Historical Provider LAB BLOOD ORDERABLES Neris l Result Performing Organization Address City/[facility] Co de Phone Number HISTORICAL RESULTS * Respiratory Pathogen Multiplex PCR (07/17/2013 12:20 AM HIGH RAW [employer]GAR [employer]ER) Nasopharyngeal (Unknown) 07/17/2013 12:20 AM HIGH RAW [employer]GAR [employer]ER 07/17/2013 12:28 AM HIGH RAW [employer]GAR [employer]ER Impressions HISTORICAL RESULTS - 07/17/2013 1:48 AM HIGH RAW SUGAR BOILER The [employer] (formerly known as [employer]) FilmArray Respiratory Panel (RP) assay is a [...] FilmArray RP assay cannot reliably differentiate them. The FilmArray RP assay currently detects Adenovirus species C serotypes 2 and 6 with reduced sensitivity. ??If there is clinical suspicion for Adenovirus infection, consider ordering Adenovirus PCR which can be performed on the same sample that was submitted for the multiplex PCR. Coronavirus OC43 may cross-react with some isolates of Coronavirus HKU1. ??A dual positive result may be due to cross-reactivity or may indicate a co-infection. The detection and identification of specific viral [...] FilmArray RP assay is FDA cleared for BALL MAKER swabs. ??Additional sample types have been validated according to CLIA regulations. ??The performance characteristics of this assay have been determined by [facility]. Current interpretive data was last revised on 2012. Narrative HISTORICAL RESULTS - 07/17/2013 1:48 AM HIGH RAW [employer]GAR [employer]ER Respiratory Pathogen nucleic acids DETECTED (POSITIVE) for the following: Rhinovirus/Enterovirus Test result called to and read back by MCKAY/Coni Gay on 07/17/13 at 0145 by Virology Lab/Leonora Stoner Historical Provider MD LAB MICROBIOLOGY - GENERA L ORDERABLES Final Result Performing Organization Address [facility] de Phone Number HISTORICAL RESULTS * Methicillin-resistant Staphylococcus aureus (MRSA) surveillance culture (07/17/2013 12:20 AM HIGH RAW [employer]GAR [employer]ER) Nasal (Unknown) 07/17/2013 1 2:20 AM HIGH RAW [employer]GAR BOILER 07/17/2013 12:40 AM HIGH RAW [employer]GAR [employer]ILER Narrative HISTORICAL RESULTS - 07/18/2013 3:13 AM HIGH RAW [employer]GAR [employer]ER Negative Historical Provider MD LAB MICROBIOLOGY - GENERA L ORDERABLES Final Result Performing Organization Address [facility] de Phone Number HISTORICAL RESULTS * Vancomycin-resistant enterococcus (VRE) screen (07/17/2013 12:20 AM HIGH RAW [employer]GAR BOILER) Rectal swab (Unknown) 07/17/2013 12:20 AM HIGH RAW [employer]GAR BOILER 07/17/2013 12:39 AM HIGH RAW [employer]GAR BO[employer]ER Narrative HISTORICAL RESULTS - 07/19/2013 10:51 AM HIGH RAW [employer]GAR [employer]ER Negative Historical Provider LAB MICROBIOLOGY - GENERA L ORDERABLES Final Result Performing Organization Address [facility] de Phone Number HISTORICAL RESULTS * Blood hemoglobin A1C (07/17/2013 12:20 AM HIGH RAW [employer]ER) Hgb A1C 5.5 4.9 - 6.2 % HISTORIC AL RESULTS Blood specimen (specimen) 07/17/2013 12:20 AM HIGH RAW [employer]ER Historical Provider MD LAB BLOOD ORDERABLES Neris l Result Performing Organization Address [facility] Co de Phone Number HISTORICAL RESULTS * (ABNORMAL) Plasma basic metabolic panel (07/17/2013 12:20 AM HIGH RAW [employer]GAR [employer]ILER) Sodium 136 135 - 145 mmol/L HISTORICAL RESULTS K, pl 2.6(L) 3.3 - 4.9 mmol/L HISTORICAL RESULTS Chloride 105 100 - 114 mmol/L HISTORICAL RESULTS CO2 12(L) 20 - 30 mmol/L HISTORICAL RESULTS A. gap 20 mmol/L HISTORICAL RESULTS Glucose 391(H) 70 - 199 mg/dl HISTORICAL RESULTS Comment: Interpretive Data Random glucose greater than or equal to 200 mg/dL with relevant clinical symptoms is diagnostic for diabetes when repeated on a subsequent day. Reference: Diabetes Care 2005;28:S37-S42. Current interpretive data was last revised on 2013. BUN 10 9 - 18 mg/dl HISTORICAL RESULTS Creatinine 0.8 0.2 - 0.8 mg/dl HISTORICAL RESULTS Calcium 9.3 8.6 - 10.3 mg/dl HISTORICAL RESULTS Plasma 07/17/2013 12:2 0 AM HIGH RAW [employer] Historical Provider LAB BLOOD ORDERABLES Neris l Result HISTORICAL RESULTS * (ABNORMAL) Blood cell count (CBC) (07/17/2013 12:20 AM HIGH RAW [employer]ER) WBC 10.1 4.5 - 13.5 K/cumm HISTORICAL RESULTS RBC 4.62 4.00 - 5.20 M/cumm HISTORICAL RESULTS Hgb 12.8 11.5 - 15.5 g/dl HISTORICAL RESULTS Hct 39.6 35.0 - 45.0 % HISTORICAL RESULTS MCV 85.7 77.0 - 95.0 fl HISTORICAL RESULTS MCH 27.7 25.0 - 33.0 pg HISTORICAL RESULTS MCHC 32.3(L) 32.7 - 35.5 g/dl HISTORICAL RESULTS Rdw 13.9 11.8 - 14.6 % HISTORICAL RESULTS Platelets 154 140 - 440 K/cumm HISTORICAL RESULTS MPV 10.3 8.1 - 11.9 fl HISTORICAL RESULTS NRBC 0.0 #/100 WBC HISTORICAL RESULTS Blood specimen (specimen) 07/17/2013 12:20 AM HIGH [employer]ER Historical Provider LAB BLOOD ORDERABLES Neris l Result HISTORICAL RESULTS * (ABNORMAL) Blood cell morphologic exam (07/17/2013 12:20 AM HIGH RAW [employer]ER) Neutrophils 97(H) 33 - 70 % HISTORIC AL RESULTS Lymphocytes 2(L) 21 - 55 % HISTORIC AL RESULTS Monos 1(L) 3 - 13 % HISTORICAL RESULTS WBC counted 100 # of cells HISTORI LETY RESULTS Platelet estimate Adequate Adequate HI STORICAL RESULTS Poikilocytosis Trace(A) None Seen HISTO RICAL RESULTS Teardrop cells 1 - 10 %(A) None Seen HIS TORICAL RESULTS Blood specimen (specimen) 07/17/2013 12:20 AM HIGH RAW [employer]GAR BOILER us Historical Provider MD LAB BLOOD ORDERABLES Neris merline Result Performing Organization Address [facility]/ZIP Co de Phone Number HISTORICAL RESULTS * All Microbiology Report Section (07/17/2013 12:00 AM HIGH RAW SUGAR BOILER) 07/17/2013 Narrative HISTORICAL RESULTS - 07/19/2013 1:24 PM HIGH RAW SUGAR BOILER ?[facility] ? Clinical Laboratories ?[address] [facility] ?[place] [address] ? Patient Name: ? NINA BAUTISTA ? Med Rec Number: ? [id number] ? Fin Number: ? [id number] ? Date: ? 2000 ? Sex/Age: ?Female 13 years ? Admit Date: ? 07/16/2013 ? Discharge Date: ? Doctor: ? Schmandt , Johnna A ? Facility: ? [facility] ? Location: ? [id number] [id number] A ? * Abnormal ??C Critical ??f Footnote ??^ Corrected ??L Low ??H High ?i Interp Data ??@ Ref Lab ? Chart Type: Cumulative ?* * * * MICROBIOLOGY - GENERAL MICROBIOLOGY * * * * ?PROCEDURE: VRE Screen Culture ? SOURCE: Rectal swab ? COLLECTED: 11/17/13 ??0020 ?BODY SITE: ? STARTED: 11/17/13 ??0039 ? FREE TEXT SOURCE: ? FINAL REPORT ? REPORTED: 07/19/13 1051 ? Negative us Historical Provider MD LAB MICROBIOLOGY - GENERA L ORDERABLES Final Result HISTORICAL RESULTS * All Microbiology Report Section (07/17/2013 12:00 AM HIGH RAW SUGAR BOILER) 07/17/2013 Narrative HISTORICAL RESULTS - 07/18/2013 6:10 AM HIGH RAW SUGAR BOILER ?[facility] ? Clinical Laboratories ?[address] ?[place] [address] ? Patient Name: ? NINA BAUTISTA ? Med Rec Number: ? [id number] ? Fin Number: ? [id number] ? Date: ? 2000 ? Sex/Age: ?Female 13 years ? Admit Date: ? 07/16/2013 ? Discharge Date: ? Doctor: ? Johnna Tinajero ? [facility] ? Location: ? 7ICB 7P20 A ? * Abnormal ??C Critical ??f Footnote ??^ Corrected ??L Low ??H High ?i Interp Data ??@ Ref Lab ? Chart Type: Cumulative ?* * * * MICROBIOLOGY - GENERAL MICROBIOLOGY * * * * ?PROCEDURE: MRSA Surveillance Culture ? SOURCE: Nasal ? COLLECTED: 11/17/13 ??0020 ?BODY SITE: ? STARTED: 11/17/13 ??0300 ? FREE TEXT SOURCE: ? FINAL REPORT ? REPORTED: 07/18/13 0313 ? Negative us Historical Provider MD LAB MICROBIOLOGY - GENERA L ORDERABLES Final Result HISTORICAL RESULTS * All Microbiology Report Section (07/17/2013 12:00 AM HIGH RAW SUGAR BOILER) 07/17/2013 Narrative HISTORICAL RESULTS - 07/19/2013 1:24 PM HIGH RAW SUGAR BOILER ?[facility] ? Clinical Laboratories ?[address] ?[place] [address] ? Patient Name: ? NINA BAUTISTA ? Med Rec Number: ? [id number] ? Fin Number: ? [id number] ? Date: ? 2000 ? Sex/Age: ?Female 13 years ? Admit Date: ? 07/16/2013 ? Discharge Date: ? Doctor: ? Johnna Tinajero ? Facility: ? [facility] ? Location: ? 7ICB 7P20 A ? * Abnormal ??C Critical ??f Footnote ??^ Corrected ??L Low ??H High ?i Interp Data ??@ Ref Lab ? Chart Type: Cumulative ?* * * * MICROBIOLOGY - VIROLOGY * * * * ?PROCEDURE: Respiratory Pathogen Multiplex PCR ? SOURCE: Nasopharyngeal ? COLLECTED: //13 ??0020 ?BODY SITE: ? STARTED: //13 ??0028 ? FREE TEXT SOURCE: ? FINAL REPORT ? REPORTED: 07/17/13 0148 ? Respiratory Pathogen nucleic acids DETECTED (POSITIVE) for the ? following: Rhinovirus/Enterovirus Test result called to and read ? back by MCKAY/Coni Gay on 07/17/13 at 0145 by Virology ? Lab/Leonora Stoner ?* * * ??Interpretive Results ??* * * ? (1)The [employer] (formerly known as [employer]) ? FilmArray Respiratory Panel (RP) assay is [...] RP assay cannot reliably ? differentiate them. The FilmArray RP assay currently detects ? Adenovirus species C serotypes 2 and 6 with reduced sensitivity. ? If there is clinical suspicion for Adenovirus infection, ? consider ordering Adenovirus PCR which can be performed on the ? same sample that was submitted for the multiplex PCR. ? Coronavirus OC43 may cross-react with some isolates of ? Coronavirus HKU1. ??A dual positive result may be due to ? cross-reactivity or may indicate a co-infection.The detection ? and identification of specific viral and bacterial [...] FilmArray RP assay is FDA cleared for BALL MAKER ? swabs. ??Additional sample types have been validated according to ? CLIA regulations. ??The performance characteristics of this assay ? have been determined by [facility] Virology ? Lab.Current interpretive data was last revised on 2012. ? us Historical Provider MD [facility] MICROBIOLOGY - GENERA L ORDERABLES Final Result HISTORICAL RESULTS documented in this encounter Visit Diagnoses Diagnosis Asthma with status asthmaticus Unspecified asthma, with status asthmaticus Acute respiratory failure (HCC) Acute respiratory failure Hypoxemia Rhinovirus infection in conditions classified elsewhere and of unspecified site Other specified viral infection, in conditions classified elsewhere and of unspecified site Anxiety state Anxiety state, unspecified Allergic rhinitis Allergic rhinitis, cause unspecified Personal history of allergy to penicillin documented in this encounter
--- OUTSIDE RECORDS SUMMARY | 2024-08-28 02:17 | XMS_ITS | Encounter Summary ---
Author Organization [facility] Care Team Providers Care Activities Specialist Name Role Phone Unavailable Primary Care Provider Unavailabl e Encounter Details Date Type Department Care Team (Late st Contact Info) Description 11/08/2012 11:39 AM CDT - 11/08/2012 11:59 PM CDT [facility] [address] [place] [address] Disorder of bone and cartilage; Pain in joint, forearm Social History Tobacco Use Types Packs/Day Years Used Date Smoking Tobacco: Never Assessed Comments Unknown Sex and Gender Information Value Date Recorded Sex Assigned at Not on file 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 JOHNNA LYONS, FINAL REPORT The radiology attending physician has personally reviewed this study, and has reviewed and/or edited this written report and agrees with it. ACC# ??Date Time ??Exam [id number] Nov 08, 2012 12:00:00 [id number] HAND MINIMUM 3 VIEWS L [id number] Nov 08, 2012 12:00:00 [id number] WRIST 3V L EXAMINATION: ?Three views of left hand and 3 views of left breast dated 11/08/2012. History: Injury 2 weeks ago, still tenderness and painful radial aspect of the wrist and ulnar eminence. Findings: Comparison is made to the left hand radiographs dated 10/29/2012. The bones appear osteopenic. No fractures or dislocations are seen. No soft tissue swelling or radiopaque foreign bodies are noted. ?? IMPRESSION: ?? Osteopenic bones with no evidence of fracture or dislocation. Would be useful to check the steroid administration in this patient who understand has asthma The findings of the study with communicated by Dr. Lyons to ??Dr. De La Cruz at 12:10 p.m. on 11/08/2012 ?? Requested By: JOHNNA DE LA CRUZ ??M.D. Dictated By: ?? JOHNNA LYONS, ?? on Nov 08 2012 12:10P This document has been electronically signed by: AGUILAR HOLDEN M.D. on Nov 08 2012 12:56P Procedure Note Provider, MD Jesus - 01/01/2017 AGUILAR HOLDEN M.D. JOHNNA LYONS, FINAL REPORT The radiology attending physician has personally reviewed this study, and has reviewed and/or edited this written report and agrees with it. ACC# Date Time Exam [id number] Nov 08, 2012 12:00:00 [id number] HAND MINIMUM 3 VIEWS L [id number] 08, 2012 12:00:00 66099 WRIST 3V L EXAMINATION: Three views of left hand and 3 views of left breast dated 11/08/2012. History: Injury 2 weeks ago, still tenderness and painful radial aspect of the wrist and ulnar eminence. Findings: Comparison is made to the left hand radiographs dated 10/29/2012. The bones appear osteopenic. No fractures or dislocations are seen. No soft tissue swelling or radiopaque foreign bodies are noted. IMPRESSION: Osteopenic bones with no evidence of fracture or dislocation. Would be useful to check the steroid administration in this patient who understand has asthma The findings of the study with communicated by Dr. Lyons to Dr. De La Cruz at 12:10 p.m. on 11/08/2012 Requested By: JOHNNA DE LA CRUZ M.D. Dictated By: JOHNNA LYONS, on Nov 08 2012 12:10P This document has been electronically signed by: AGUILAR HOLDEN M.D. on Nov 08 2012 12:56P us Historical Provider MD CARL[facility]LE XR PROCEDURES Final R esult * XR Hand 3+ VW (11/08/2012 12:00 PM CDT) Anatomical Region Laterality Modality N/A Radiographic Ria ging 11/08/2012 12:0 0 PM CDT Narrative 11/08/2012 12:56 PM CDT AGUILAR HOLDEN M.D. JOHNNA LYONS, FINAL REPORT The radiology attending physician has personally reviewed this study, and has reviewed and/or edited this written report and agrees with it. ACC# ??Date Time ??Exam [id number] Nov 08, 2012 12:00:00 [id number] HAND MINIMUM 3 VIEWS L [id number] Nov 08, 2012 12:00:00 [id number] WRIST 3V L EXAMINATION: ?Three views of left hand and 3 views of left breast dated 11/08/2012. History: Injury 2 weeks ago, still tenderness and painful radial aspect of the wrist and ulnar eminence. Findings: Comparison is made to the left hand radiographs dated 10/29/2012. The bones appear osteopenic. No fractures or dislocations are seen. No soft tissue swelling or radiopaque foreign bodies are noted. ?? IMPRESSION: ?? Osteopenic bones with no evidence of fracture or dislocation. Would be useful to check the steroid administration in this patient who understand has asthma The findings of the study with communicated by Dr. Lyons to ??Dr. De La Cruz at 12:10 p.m. on 11/08/2012 ?? Requested By: JOHNNA DE LA CRUZ ??Josue Dictated By: ?? JOHNNA LYONS, ?? on Nov 08 2012 12:10P This document has been electronically signed by: AGUILAR HOLDEN M.D. on Nov 08 2012 12:56P Procedure Note Provider, Jesus, - 01/01/2017 AGUILAR HOLDEN M.D. JOHNNA LYONS, FINAL REPORT The radiology attending physician has personally reviewed this study, and has reviewed and/or edited this written report and agrees with it. ACC# Date Time Exam [id number] Nov 08, 2012 12:00:00 [id number] HAND MINIMUM 3 VIEWS L [id number] Nov 08, 2012 12:00:00 [id number] WRIST 3V L EXAMINATION: Three views of left hand and 3 views of left breast dated 11/08/2012. History: Injury 2 weeks ago, still tenderness and painful radial aspect of the wrist and ulnar eminence. Findings: Comparison is made to the left hand radiographs dated 10/29/2012. The bones appear osteopenic. No fractures or dislocations are seen. No soft tissue swelling or radiopaque foreign bodies are noted. IMPRESSION: Osteopenic bones with no evidence of fracture or dislocation. Would be useful to check the steroid administration in this patient who understand has asthma The findings of the study with communicated by Dr. Lyons to Dr. De La Cruz at 12:10 p.m. on 11/08/2012 Requested By: JOHNNA DE LA CRUZ M.D. Dictated By: JOHNNA LYONS, on Nov 08 2012 12:10P This document has been electronically signed by: AGUILAR HOLDEN M.D. on Nov 08 2012 12:56P Historical Provider IMG XR PROCEDURES Final R esult documented in this encounter Visit Diagnoses Diagnosis Disorder of bone and cartilage Disorder of bone and cartilage, unspecified Pain in joint, forearm documented in this encounter
--- OUTSIDE RECORDS SUMMARY | 2024-08-28 02:17 | XMS_ITS | Encounter Summary ---
Author Organization [facility] Care Team Providers Care Loan Processor Name Role Phone Unavailable Primary Care Provider Unavailabl e Encounter Details Date Type Department Care Team (Latest Contact Info) Description 07/14/2013 7:44 AM TIMBER MILL WORKER - 07/14/2013 11:59 PM TIMBER MILL WORKER Hospital Encounter 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 FINAL REPORT ACC# ??Date Time ??Exam [id number] Jul 14, 2013 07:49:00 [id number] WRIST 3V R EXAMINATION: ?? right wrist 3 views on July 14, 2013 HISTORY: 13-year-old female with history of difficulty Dorsi flexion. FINDINGS: Comparison exam dated July 04, 2013. AP, oblique and lateral views of the right wrist show no fracture or dislocation. IMPRESSION: ?? Normal. Requested By: RY CHAIDEZ M.D. Dictated By: ?? MILAGROS ANTHONY M.D. ??on Jul 14 2013 ??9:08A This document has been electronically signed by: MILAGROS ANTHONY M.D. on Jul 14 2013 ??9:08A Procedure Note Provider, MD Jesus - 01/01/2017 MILAGROS ANTHONY M.D. FINAL REPORT ACC# Date Time Exam [id number] Jul 14, 2013 07:49:00 [id number] WRIST 3V R EXAMINATION: right wrist 3 views on July 14, 2013 HISTORY: 13-year-old female with history of difficulty Dorsi flexion. FINDINGS: Comparison exam dated July 04, 2013. AP, oblique and lateral views of the right wrist show no fracture or dislocation. IMPRESSION: Normal. Requested By: RY CHAIDEZ M.D. Dictated By: MILAGROS ANTHONY M.D. on Jul 14 2013 9:08A This document has been electronically signed by: MILAGROS ANTHONY M.D. on Jul 14 2013 9:08A us Historical Provider [facility] XR PROCEDURES Final R esult documented in this encounter Visit Diagnoses Diagnosis Other symptoms referable to forearm joint documented in this encounter
--- OUTSIDE RECORDS SUMMARY | 2024-08-28 02:17 | XMS_ITS | Encounter Summary ---
Author Organization [facility] Care Team Providers Care Sheriff Deputy Name Role Phone Unavailable Primary Care Provider Unavailabl e Encounter Details Date Type Department Care Team (Latest Contact Info) Description 07/04/2013 3:45 PM FOREST SUPERVISOR - 07/04/2013 11:59 PM FOREST SUPERVISOR Hospital Encounter [facility] Johnna De La Cruz MD [address] [place] [address] Other musculoskeletal symptoms referable to limbs Social History Tobacco Use Types Packs/Day Years Used Date Smoking Tobacco: Never Assessed Comments Unknown Sex and Gender Information Value Date Recorded Sex Assigned at Not on file 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 ANA HERNANDEZ M.D. FINAL REPORT The radiology attending physician has personally reviewed this study, and has reviewed and/or edited this written report and agrees with it. ACC# ??Date Time ??Exam [id number] Jul 04, 2013 16:30:00 10061 WRIST 3V R EXAMINATION: ?Right wrist 3 views HISTORY: ??Difficulty dorsiflexing after minor trauma. FINDINGS: ?? 3 views of the right wrist are compared with 01/04/2013. The alignment is normal. There are no fractures. The soft tissues are normal. IMPRESSION: 1. Normal right wrist. ?? Requested By: JOHNNA DE LA CRUZ ??M.D. Dictated By: ?? ANA HERNANDEZ M.D. ??on Jul?2012 ??5:08P This document has been electronically signed by: AGUILAR HOLDEN M.D. on Jul?2012 ??5:11P Procedure Note Provider, MD Jesus - 01/01/2017 Josue ROMO M.D. FINAL REPORT The radiology attending physician has personally reviewed this study, and has reviewed and/or edited this written report and agrees with it. ACC# Date Time Exam [id number] Jul 04, 2013 16:30:00 [id number] WRIST 3V R EXAMINATION: Right wrist 3 views HISTORY: Difficulty dorsiflexing after minor trauma. FINDINGS: 3 views of the right wrist are compared with 01/04/2013. The alignment is normal. There are no fractures. The soft tissues are normal. IMPRESSION: 1. Normal right wrist. Requested By: JOHNNA DE LA CRUZ M.D. Dictated By: ANA HERNANDEZ M.D. on Jul 04 2013 5:08P This document has been electronically signed by: AGUILAR HOLDEN M.D. on Jul 04 2013 5:11P us Historical Provider MD CARL[facility] XR PROCEDURES Final R esult documented in this encounter Visit Diagnoses Diagnosis Other musculoskeletal symptoms referable to limbs documented in this encounter
--- OUTSIDE RECORDS SUMMARY | 2024-08-28 02:17 | XMS_ITS | Encounter Summary ---
Author Organization [facility] Care Team Providers Care Automatic Chief Name Role Phone Unavailable Primary Care Provider Unavailabl e Encounter Details Date Type Department Care Team (Late st Contact Info) Description 10/29/2012 12:26 PM SET UP AND CHARGER - 10/29/2012 11:59 PM SET UP AND CHARGER Hospital Encounter [facility] [place] [address] [place] [address] Injury, other and unspecified, hand, except finger; Accident Social History Tobacco Use Types Packs/Day Years Used Date Smoking Tobacco: Never Assessed Comments Unknown Sex and Gender Information Value Date Recorded Sex Assigned at Not on file Legal Sex 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 FINAL REPORT ACC# ??Date Time ??Exam [id number] Oct 29, 2012 12:45:00 [id number] HAND MINIMUM 3 VIEWS L EXAMINATION: ?Left hand 3 views COMPARISON: None. HISTORY: injury 2/25 impact tender thenar eminence 1st /2nd metacarpal r/o fracture FINDINGS: The bones and soft tissues are normal. IMPRESSION: ?Normal Requested By: JOHNNA DE LA CRUZ ??M.Yonatan. Dictated By: ?? DRAGAN HICKS M.D. ??on Oct ??2012 12:48P This document has been electronically signed by: DRAGAN HICKS M.D. on Oct ?? 2012 12:48P Procedure Note Provider, Jesus, - 01/01/2017 DRAGAN HICKS M.D. FINAL REPORT ACC# Date Time Exam [id number] Oct 29, 2012 12:45:00 [id number] HAND MINIMUM 3 VIEWS L EXAMINATION: Left hand 3 views COMPARISON: None. HISTORY: injury 2/25 impact tender thenar eminence 1st /2nd metacarpal r/o fracture FINDINGS: The bones and soft tissues are normal. IMPRESSION: Normal Requested By: JOHNNA DE LA CRUZ M.D. Dictated By: DRAGAN HICKS M.D. on Oct 29 2012 12:48P This document has been electronically signed by: DRAGAN HICKS M.D. on Oct 29 2012 12:48P Historical Provider MD CARLISLE XR PROCEDURES Final R esult documented in this encounter Visit Diagnoses Diagnosis Injury, other and unspecified, hand, except finger Accident Unspecified accident documented in this encounter
--- OUTSIDE RECORDS SUMMARY | 2024-08-28 02:17 | XMS_ITS | Encounter Summary ---
Author Organization [facility] Care Team Providers Care Java J2Ee Lead Name Role Phone Unavailable Primary Care Provider Unavailabl e Encounter Details Date Type Department Care Team (Late st Contact Info) Description 09/22/2006 12:37 PM STORES NAVAL - 09/23/2006 4:00 PM [employer]ORES [employer] Hospital Encounter [facility] Social History Tobacco Use Types Packs/Day Years Used Date Smoking Tobacco: Never Assessed Comments Unknown Sex and Gender Information Value Date Recorded Sex Assigned at Not on file Legal Sex 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 STORES NAVAL Gender Identity Not on file Sexual Orientation Not on file documented as of this encounter Plan of Treatment Not on file documented as of this encounter Visit Diagnoses Not on filedocumented in this encounter
--- OUTSIDE RECORDS SUMMARY | 2024-08-28 02:17 | XMS_ITS | Encounter Summary ---
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 FINAL REPORT ACC# ??Date Time ??Exam [id number] January 04, 2013 07:45:00 [id number] WRIST 2V R EXAMINATION: ?Two-view right wrist January 04, 2013. HISTORY: ??12-year-old girl with wrist pain. FINDINGS: ?? No prior studies for comparison. The alignment of the wrist is normal. There is no evidence of fracture or dislocation. There is minimal dorsal soft tissue swelling. IMPRESSION: ?? No acute abnormality. Requested By: CLAUDIA HURLEY NP Dictated By: ?? EMILY MICHELLE M.D. ??on December?2012 ??8:03A This document has been electronically signed by: EMILY MICHELLE M.D. on December ??8:03A Procedure Note Provider, Jesus, - 01/01/2017 EMILY MICHELLE M.D. FINAL REPORT ACC# Date Time Exam [id number] January 04, 2013 07:45:00 [id number] WRIST 2V R EXAMINATION: Two-view right wrist January 04, 2013. HISTORY: 12-year-old girl with wrist pain. FINDINGS: No prior studies for comparison. The alignment of the wrist is normal. There is no evidence of fracture or dislocation. There is minimal dorsal soft tissue swelling. IMPRESSION: No acute abnormality. Requested By: CLAUDIA HURLEY NP Dictated By: EMILY MICHELLE M.D. on Jan 04 2013 8:03A This document has been electronically signed by: EMILY MICHELLE M.D. on Jan 04 2013 8:03A Historical Provider [facility] XR PROCEDURES Final R esult documented in this encounter Visit Diagnoses Diagnosis Pain in joint, forearm documented in this encounter
--- OUTSIDE RECORDS SUMMARY | 2024-08-28 02:17 | XMS_ITS | Encounter Summary ---
Author Organization [facility] Facility Care Team Providers Care Personal Banker Name Role Phone Unavailable Primary Care Provider Unavailabl e Encounter Details Date Type Department Care Team (Late st Contact Info) Description 05/30/2013 2:38 PM CDT - 05/30/2013 11:59 PM CDT [facility] [address] [place] [address] Backache; Accidental fall from bed Social History Tobacco Use Types Packs/Day Years Used Date Smoking Tobacco: Never Assessed Comments Unknown Sex and Gender Information Value Date Recorded Sex Assigned at Not on file Legal Sex 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 [employer] Gender Identity Not on file Sexual Orientation Not on file documented as of this encounter Plan of Treatment Not on file documented as of this encounter Procedures Procedure Name Priority Date/Time Associated Diagnosis Comments XR SPINE LUMBAR 2 OR 3 VIEWS Routine 05/30/2013 2:55 PM CDT XR SPINE THORACIC 2 VIEWS Routine 05/30/2013 2:55 PM CDT documented in this encounter Results * XR Spine Thoracic 2 Views (05/30/2013 2:55 PM CDT) Anatomical Region Laterality Modality Spine N/A Radiographic Ria ging 05/30/2013 2:55 PM CDT Narrative 05/30/2013 4:58 PM CDT Josue JOHNSON M.D. FINAL REPORT The radiology attending physician has personally reviewed this study, and has reviewed and/or edited this written report and agrees with it. ACC# ??Date Time ??Exam [id number] May 30, 2013 14:55:00 [id number] TSPINE 2 VIEWS [id number] May 30, 2013 14:55:00 [id number] LSPINE 2 OR 3 VIEWS EXAMINATION: ? 1. Thoracic spine 2 views 05/30/2013 2. Lumbar spine 2 views 05/30/2013 History: 13-year-old female with a fall from the bed to the floor presenting with back pain in the mid lumbar spine area. Findings: 1. Thoracic spine 2 views 05/30/2013: No comparison study available. AP and lateral views of the thoracic spine were obtained. The alignment is normal. The vertebral body heights and intervertebral disc spaces are well-preserved. There is no evidence of any fracture, dislocation, or subluxation. No soft tissue abnormalities are appreciated. 2. Lumbar spine 2 views 05/30/2013: No comparison study available. AP and lateral views of the thoracic spine were obtained. Mild levocurvature of the lumbar spine which may be positional in nature. The vertebral body heights and intervertebral disc spaces are well-preserved. There is no evidence of any fracture, dislocation, or subluxation. No soft tissue abnormalities are appreciated. IMPRESSION: ??: 1. Thoracic spine 2 views 05/30/2013: ??Normal thoracic spine radiograph. 2. Lumbar spine 2 views 05/30/2013: Mild levocurvature of the lumbar spine which may be positional in nature. Otherwise, normal lumbar spine radiograph. Requested By: JOHNNA DE LA CRUZ ??Josue Dictated By: ?? MILADYS HOPPER M.D. ??on May 30 2013 ??3:25P This document has been electronically signed by: MILAGROS ANTHONY M.D. on May 30 2013 ??4:58P Procedure Note Provider, MD Jesus - 01/01/2017 Josue JOHNSON M.D. FINAL REPORT The radiology attending physician has personally reviewed this study, and has reviewed and/or edited this written report and agrees with it. ACC# Date Time Exam [id number] May 30, 2013 14:55:00 [id number] TSPINE 2 VIEWS [id number] May 30, 2013 14:55:00 [id number] LSPINE 2 OR 3 VIEWS EXAMINATION: 1. Thoracic spine 2 views 05/30/2013 2. Lumbar spine 2 views 05/30/2013 History: 13-year-old female with a fall from the bed to the floor presenting with back pain in the mid lumbar spine area. Findings: 1. Thoracic spine 2 views 05/30/2013: No comparison study available. AP and lateral views of the thoracic spine were obtained. The alignment is normal. The vertebral body heights and intervertebral disc spaces are well-preserved. There is no evidence of any fracture, dislocation, or subluxation. No soft tissue abnormalities are appreciated. 2. Lumbar spine 2 views 05/30/2013: No comparison study available. AP and lateral views of the thoracic spine were obtained. Mild levocurvature of the lumbar spine which may be positional in nature. The vertebral body heights and intervertebral disc spaces are well-preserved. There is no evidence of any fracture, dislocation, or subluxation. No soft tissue abnormalities are appreciated. IMPRESSION: : 1. Thoracic spine 2 views 05/30/2013: Normal thoracic spine radiograph. 2. Lumbar spine 2 views 05/30/2013: Mild levocurvature of the lumbar spine which may be positional in nature. Otherwise, normal lumbar spine radiograph. Requested By: JOHNNA DE LA CRUZ M.D. Dictated By: MILADYS HOPPER M.D. on May 30 2013 3:25P This document has been electronically signed by: MILAGROS ANTHONY M.D. on May 30 2013 4:58P us Historical Provider MD CARLISLE XR PROCEDURES Final R esult * XR Spine Lumbar 2 or 3 Views (05/30/2013 2:55 PM CDT) Anatomical Region Laterality Modality Spine N/A Radiographic Ria ging 05/30/2013 2:55 PM CDT Narrative 05/30/2013 4:58 PM CDT MILAGROS GABRIELLE, M.D. MILADYS WARD, M.D. FINAL REPORT The radiology attending physician has personally reviewed this study, and has reviewed and/or edited this written report and agrees with it. ACC# ??Date Time ??Exam [id number] May 30, 2013 14:55:00 [id number] TSPINE 2 VIEWS [id number] May 30, 2013 14:55:00 [id number] LSPINE 2 OR 3 VIEWS EXAMINATION: ? 1. Thoracic spine 2 views 05/30/2013 2. Lumbar spine 2 views 05/30/2013 History: 13-year-old female with a fall from the bed to the floor presenting with back pain in the mid lumbar spine area. Findings: 1. Thoracic spine 2 views 05/30/2013: No comparison study available. AP and lateral views of the thoracic spine were obtained. The alignment is normal. The vertebral body heights and intervertebral disc spaces are well-preserved. There is no evidence of any fracture, dislocation, or subluxation. No soft tissue abnormalities are appreciated. 2. Lumbar spine 2 views 05/30/2013: No comparison study available. AP and lateral views of the thoracic spine were obtained. Mild levocurvature of the lumbar spine which may be positional in nature. The vertebral body heights and intervertebral disc spaces are well-preserved. There is no evidence of any fracture, dislocation, or subluxation. No soft tissue abnormalities are appreciated. IMPRESSION: ??: 1. Thoracic spine 2 views 05/30/2013: ??Normal thoracic spine radiograph. 2. Lumbar spine 2 views 05/30/2013: Mild levocurvature of the lumbar spine which may be positional in nature. Otherwise, normal lumbar spine radiograph. Requested By: JOHNNA DE LA CRUZ ??MReshma. Dictated By: ?? MILADYS HOPPER M.D. ??on May 30 2013 ??3:25P This document has been electronically signed by: MILAGROS ANTHONY M.D. on May 30 2013 ??4:58P Procedure Note Provider, MD Jesus - 01/01/2017 MILAGROS ANTHONY M.D. MILADYS HOPPER M.D. FINAL REPORT The radiology attending physician has personally reviewed this study, and has reviewed and/or edited this written report and agrees with it. ACC# Date Time Exam [id number] May 30, 2013 14:55:00 [id number] TSPINE 2 VIEWS [id number] May 30, 2013 14:55:00 [id number] LSPINE 2 OR 3 VIEWS EXAMINATION: 1. Thoracic spine 2 views 05/30/2013 2. Lumbar spine 2 views 05/30/2013 History: 13-year-old female with a fall from the bed to the floor presenting with back pain in the mid lumbar spine area. Findings: 1. Thoracic spine 2 views 05/30/2013: No comparison study available. AP and lateral views of the thoracic spine were obtained. The alignment is normal. The vertebral body heights and intervertebral disc spaces are well-preserved. There is no evidence of any fracture, dislocation, or subluxation. No soft tissue abnormalities are appreciated. 2. Lumbar spine 2 views 05/30/2013: No comparison study available. AP and lateral views of the thoracic spine were obtained. Mild levocurvature of the lumbar spine which may be positional in nature. The vertebral body heights and intervertebral disc spaces are well-preserved. There is no evidence of any fracture, dislocation, or subluxation. No soft tissue abnormalities are appreciated. IMPRESSION: : 1. Thoracic spine 2 views 05/30/2013: Normal thoracic spine radiograph. 2. Lumbar spine 2 views 05/30/2013: Mild levocurvature of the lumbar spine which may be positional in nature. Otherwise, normal lumbar spine radiograph. Requested By: JOHNNA DE LA CRUZ M.D. Dictated By: MILADYS HOPPER M.D. on May 30 2013 3:25P This document has been electronically signed by: MILAGROS ANTHONY M.D. on May 30 2013 4:58P Historical Provider MD CARLISLE XR PROCEDURES Final R esult documented in this encounter Visit Diagnoses Diagnosis Backache Unspecified backache Accidental fall from bed documented in this encounter
--- OUTSIDE RECORDS SUMMARY | 2024-08-28 02:17 | XMS_ITS | Encounter Summary ---
Author Organization [facility] Facility Care Team Providers Care Quick Mixer Operator Name Role Phone Unavailable Primary Care Provider Unavailabl e Encounter Details Date Type Department Care Team (Latest Contact Info) Description 01/24/2013 6:05 PM CDT - 01/25/2013 12:05 AM CDT Hospital Encounter [facility] Concussion with no loss of consciousness; Other accident caused by striking against or being struck accidentally by objects or persons with or without subsequent fall; Unspecified place of occurrence Social History Tobacco Use Types Packs/Day Years Used Date Smoking Tobacco: Never Assessed Comments Unknown Sex and Gender Information Value Date Recorded Sex Assigned at Not on file 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
--- OUTSIDE RECORDS SUMMARY | 2024-08-28 02:22 | XMS_ITS | Continuity of Care Document ---
Author Organization [facility] Address [address] [place] [address] [address] [place] [address] Phone Care Team Providers Care Admiralty Lawyer Name Role Phone Violet MS, OTR/L, CHT, Madyson Unavailable Unavailable Procedures Procedure Date OT RE-EVALUATION THERAPEUTIC EXERCISES NEUROMUSCULAR RE-ED FUNC ACTIVITY HOT/COLD PACK THERAPEUTIC EXERCISES NEUROMUSCULAR RE-ED FUNC ACTIVITY HOT/COLD PACK THERAPEUTIC EXERCISES NEUROMUSCULAR RE-ED FUNC ACTIVITY THERAPEUTIC EXERCISES NEUROMUSCULAR RE-ED MANUAL THERAPY FUNC ACTIVITY HOT/COLD PACK THERAPEUTIC EXERCISES NEUROMUSCULAR RE-ED MANUAL THERAPY FUNC ACTIVITY HOT/COLD PACK THERAPEUTIC EXERCISES NEUROMUSCULAR RE-ED MANUAL THERAPY FUNC ACTIVITY HOT/COLD PACK OT RE-EVALUATION THERAPEUTIC EXERCISES NEUROMUSCULAR RE-ED FUNC ACTIVITY HOT/COLD PACK THERAPEUTIC EXERCISES NEUROMUSCULAR RE-ED MANUAL THERAPY FUNC ACTIVITY HOT/COLD PACK THERAPEUTIC EXERCISES NEUROMUSCULAR RE-ED MANUAL THERAPY FUNC ACTIVITY HOT/COLD PACK ELECTRIC STIMULATION UNATT [employer] THERAPEUTIC EXERCISES MANUAL THERAPY FUNC ACTIVITY THERAPEUTIC EXERCISES MANUAL THERAPY FUNC ACTIVITY HOT/COLD PACK ELECTRIC STIMULATION UNATT THERAPEUTIC EXERCISES MANUAL THERAPY FUNC ACTIVITY HOT/COLD PACK ELECTRIC STIMULATION UNATT THERAPEUTIC EXERCISES MANUAL THERAPY FUNC ACTIVITY HOT/COLD PACK ELECTRIC STIMULATION UNATT THERAPEUTIC EXERCISES MANUAL THERAPY FUNC ACTIVITY HOT/COLD PACK ELECTRIC STIMULATION UNATT THERAPEUTIC EXERCISES MANUAL THERAPY FUNC ACTIVITY HOT/COLD PACK ELECTRIC STIMULATION UNATT THERAPEUTIC EXERCISES MANUAL THERAPY FUNC ACTIVITY HOT/COLD PACK ELECTRIC STIMULATION UNATT OT EVALUATION THERAPEUTIC EXERCISES MANUAL THERAPY FUNC ACTIVITY HOT/COLD PACK ELECTRIC STIMULATION UNATT Advance Directives Directive Yes / No Effective Date File Name No Information Encounters Encounter Description Practice Location Reason(s) For Visit Diagnoses Date Provider Providers Copied on Encounter [facility], [address] [address], [place], [place], [id number], [place] tel:[phone] [place] No Information 6-201 6 Violet Madyson. [address] [facility], [address], [place], [address], [place]. tel:[phone] Referring Provider: Shashank Geeta, [address], [place], [address]. tel:[phone] [facility], [address] [place], [place] [address], [place], [place], [id number], tel:[phone] [place] No Information Dec-3 0-201 5 Hauschild Madyson. [address] [place] [address], [address], [place], [address], [place]. tel:[phone] Referring Provider: Shashank Connor, [address], [place], [address]. tel:[phone] [address], [place], [place], [id number], tel:[phone] [place] No Information Dec-2 2-201 5 Hauschild Madyson. [address] [place] [address], [address], [place], [place], [facility], [place]. tel:[phone] Referring Provider: Shashank Connor, [address], [place], [address]. tel:[phone] [facility], [address] [place], [place] [address], [place], [place], [id number], [place] tel:[phone] [place] No Information Dec-2 1-201 5 Hauschild Madyson. [address] [place] [address], [address], [place], [address], [place]. tel:[phone] Referring Provider: Shashank Connor, [address], [place], [address]. tel:[phone] [address] [facility] [address], [id number], [place] tel:[phone] [place] No Information Dec-1 8-201 5 Hauschild Madyson. [address] [place] [address], [address], [place], [address], [place]. tel:[phone] Referring Provider: Shashank Connor, [address], [place], [address]. tel:[phone] [facility], [facility] [address], [place], [place], [address], [place] tel:[phone] [place] No Information Dec-1 6-201 5 Hauschild Madyson. [address] [place] [address], [address], [place], [address], [place]. tel:[phone] Referring Provider: Jo O[address], [place], [address]. tel:[phone] [facility], [address] [facility], [place], [place], [id number], [place] tel:[phone] [place] No Information Dec-0 9-201 5 Hauschild Madyson. [address] [place] [address], [address], [place], [address], [place]. tel:[phone] Referring Provider: Jo Omalley[address], [place], [address]. tel:[phone] [facility], [facility], [place], [place], [address], [place] tel:[phone] [place] No Information Dec-0 4-201 5 Hauschild Madyson. [address] [place] [address], [address], [place], [address], [place]. tel:[phone] Referring Provider: Toby [address], [place], [address]. tel:[phone] [facility], [address] [facility], [place], [place], [id number], [place] tel:[phone] [place] No Information Dec-0 2-201 5 Hauschild Madyson. [address] [place] [address], [address], [place], [address], [place]. tel:[phone] Referring Provider: Jo O[address], [place], [address]. tel:[phone] [facility], [address], [place], [place], [id number], [place] tel:[phone] [place] No Information Nov-2 5-201 5 Hauschild Madyson. [address] [place] [address], [address], [place], [address], [place]. tel:[phone] Referring Provider: Shashank Connor, [address], [place], [address]. tel:[phone] [facility], [address] [facility], [place], [place], [id number], [place] tel:[phone] [place] No Information Nov-2 3-201 5 Hauschild Madyson. [address] [place] [address], [address], [place], [address], [place]. tel:[phone] Referring Provider: Shashank Connor, [address], [place], [address]. tel:[phone] [facility], [facility], [place], [place], [id number], [place] tel:[phone] [place] No Information Nov-2 0-201 5 Hauschild Madyson. [address] [place] [address], [address], [place], [address], [place]. tel:[phone] Referring Provider: Shashank Connor, [address], [place], [address]. tel:[phone] [facility], [address], [place], [place], [address], [place] tel:[phone] [place] No Information Nov-1 8-201 5 Hauschild Madyson. [address] [place] [address], [address], [place], [address], [place]. tel:[phone] Referring Provider: Shashank Connor, [address], [place], [address]. tel:[phone] [facility] [address] [facility], [place], [place], [address], [place] tel:[phone] [place] No Information Nov- 3-201 5 Hauschild Madyson. [address] [facility], [address], [place], [address], [place]. tel:[phone] Referring Provider: Shashank Connor, [address], [place], [address]. tel:[phone] [facility] [address] [facility], [place], [place], [address], [place] tel:[phone] [place] No Information Jul-08 31- 5 Hauschild Madyson. [address] [place] [address], [address], [place], [address], [place]. tel:[phone] Referring Provider: Shashank Connor, [address], [place], [address]. tel:[phone] [facility], [address] [facility], [place], [place], [address], [place] tel:[phone] [place] Unspecified sprain of right wrist, initial encounter Nov-0 5-201 5 Hauscjaimeld Madyson. [address] [place] [address], [address], [place], [address], [place]. tel:[phone] Referring Provider: Shashank Connor, [address], [place], [address]. tel:[phone] [facility], [address] [facility], [place], [place], [address], [place] tel:[phone] [place] Stiffness of right wrist, not elsewhere classifiedPain in right wristEffusion, right wristMuscle weakness (generalized)Ot her specified sprain of right wrist, subsequent encounter Nov-0 4-201 5 Violet Coughlin. [address] [facility], [address], [place], [address], [place]. tel:[phone] Referring Provider: Shashank Connor, [address], [place], [address]. tel:[phone] Family History Family Member Type Diagnosis Age At Onset No Information Payers Payer name Insurance type Covered alliance party ID Authorcamilo mustafa(s) [facility] [id number] Social History Type Description Quantity Date Captured Comments Sex Female Smoking Status No Information Chief Complaint And Reason For Visit No Information Reason For Referral Reason For Referral No Information History Of Present Illness Encounter Date Complaint History Of Prese nt Illness No Information Functional Status Date Functional Assessmen t No Information Instructions Date Instruction Additional Infor mation No Information Assessments Type Assessment Date No Information Patient Care Teams Name Effective Dates (start - stop) Status Members No Information
--- OUTSIDE RECORDS SUMMARY | 2024-08-28 02:22 | XMS_ITS | Continuity of Care Document ---
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 Name Role Phone Viktor Rock MD Unavailable Unavailable Allergies, Adverse Reactions, Alerts Substance Reaction Status Criticality Penicillins Active No Information No Known Drug Allergies Other Active No I nformation Medications Medication Instructions Dosage Effective Dates (start - stop) Status Comments Breo Ellipta 100 mcg-25 mcg/dose powder for inhalation INHALE 1 PUFF BY MOUTH EVERY 24 HOURS - Active 90 day supply Albuterol Sulfate HFA 108 (90 Base) MCG/ACT Inhalation Aerosol Solutio INHALE 2 PUFFS BY MOUTH EVERY 4 TO 6 HOURS NEEDED - Active cetirizine 10 mg tablet take 1 tablet (10MG) by oral route every day 10 MG - Active Lexapro 20 mg tablet take 1 tablet by oral route every day 20 MG - Active Tri-Lo-Yancy 0.18/0.215/0.25 mg-25 mcg tablet take 1 tablet by oral route every day 1.00 tablet - Active Vitamin C 500 mg tablet - Active Procedures Procedure Date HEALTH RISK ASSESSMENT, PATIENT-FOCUSED OFFICE [id number] SYST BP GE 130 - 139MM HG DIAST BP >= 90 MM HG MOUTHPIECE RESPIRATORY FLOW VOLUME LOOP HEALTH RISK ASSESSMENT, PATIENT-FOCUSED OFFICE [id number] BODY MASS INDEX DOCD SYST BP >= 140 MM HG6 IT DIAST BP >= 90 MM HG RESPIRATORY FLOW VOLUME LOOP MOUTHPIECE HEALTH RISK ASSESSMENT, PATIENT-FOCUSED MOUTHPIECE RESPIRATORY FLOW VOLUME LOOP OFFICE [id number] BODY MASS INDEX DOCD SYST BP LT 130 MM HG DIAST BP < 80 MM HG HEALTH RISK ASSESSMENT, PATIENT-FOCUSED OFFICE [id number] BODY MASS INDEX DOCD SYST BP LT 130 MM HG DIAST BP < 80 MM HG RESPIRATORY FLOW VOLUME LOOP MOUTHPIECE HEALTH RISK ASSESSMENT, PATIENT-FOCUSED OFFICE [id number] BODY MASS INDEX DOCD SYST BP LT 130 MM HG DIAST BP < 80 MM HG RESPIRATORY FLOW VOLUME LOOP MOUTHPIECE HEALTH RISK ASSESSMENT, PATIENT-FOCUSED OFFICE [id number] BODY MASS INDEX DOCD PULMONARY SPIROMETRY, FUNCTION 20 MOUTHPIECE Advance Directives Directive Yes / No Effective Date File Name No Information Encounters Encounter Description Practice Location Reason(s) For Visit Diagnoses Date Provider Providers Copied on Encounter [facility], [address], [place], [place], [id number] , [place] tel: [phone] [facility] No Information 4 Pranav Hoang. [address], [id number] , [place]. tel: [phone] OFFICE [id number] TAILED [employer], [address], [place], [place], [id number] , [place] tel: [phone] [facility] asthma (chief complaint) allergy f/u (chief complaint) Moderate persistent asthma, uncomplicatedAllerg ic rhinitis due to animal hair and dander 3 Pranav Hoang. [address], [id number] , . tel: [phone] Referring Provider: Vicki Johnson, [address], [place], [address]. tel:[phone] [facility], [address], [place], [place], [address] , [place] tel: [phone] [facility] No Information 3 Pranav Hoang. [address] [place] [address], [id number] , . tel: [phone] OFFICE [id number] TAILED [facility], [address], [place], [place], [address] , tel: [phone] [facility] asthma (chief complaint) Asthma-con trol (chief complaint) allergies (chief complaint) Moderate persistent asthma, uncomplicatedAllerg ic rhinitis due to animal hair and dander 2 Pranav Hoang. [address] [place] [address], [id number] , . tel: [phone] Referring Provider: Viktor Rock, [address] [place] [address], [address] . tel:[phone] OFFICE [id number] TAILED [facility], [address], [place], [place], [address] , [place] tel: [phone] [facility] Allergy [facility] asthma (chief complaint) Asthma-con trol (chief complaint) allergies (chief complaint) Moderate persistent asthma, uncomplicatedAllerg ic rhinitis due to animal hair and dander 1 Pranav Hoang. [address] [place] [address], [id number] , . tel: [phone] Referring Provider: Viktor Rock, [address] [place] [address], [address] . tel:[phone] OFFICE [id number] TAILED [facility], [address], [place], [place], [address] , tel: [phone] [facility] asthma (chief complaint) Asthma-con trol (chief complaint) allergies (chief complaint) Moderate persistent asthma, uncomplicatedAllerg ic rhinitis due to animal hair and dander Jul- 0 Pranav Hoang. [address] [place] [address], [id number] , . tel: [phone] Referring Provider: Johnna Tinajero MD, [address] [place] [address], [place], [address]. tel:[phone] OFFICE [id number] [facility], [address], [place], [place], [address] , tel: [phone] [facility] asthma (chief complaint) Asthma-con trol (chief complaint) allergies (chief complaint) Allergic rhinitis due to animal hair and danderModerate persistent asthma, uncomplicated Mar-0 0 Pranav Hoang. [address], [id number] , . tel: [phone] Referring Provider: Johnna Tinajero MD, [address] [place] [address], [place], [address]. tel:[phone] OFFICE [id number] [facility], [address], [place], [place], [address] , tel: [phone] [facility]ergy [facility] asthma (chief complaint) Asthma-con trol (chief complaint) allergies (chief complaint) Mild persistent asthma without complicationAllergi c rhinitis due to animal hair and dander Fe-0 0 Pranav Hoang. [address] [place] [address], [id number] , . tel: [phone] Referring Provider: Johnna Tinajero MD, [address] [place] [address], [place], [address]. tel:[phone] [facility], [address], [place], [address] , tel: [phone] [facility] Asthma (chief complaint) Asthma-con trol (chief complaint) Rhinitis, allergic (chief complaint) Hives (chief complaint) Moderate persistent asthma, uncomplicatedAllerg ic rhinitis due to animal hair and danderUrticaria 201 9 Shine Tila . [address] [place] [address], [id number] , . tel:[phone] Referring Provider: Viktor Rock, [address] [place] [address], [address] . tel:[phone] [employer], [address] [facility], [place], [place], [address] , tel: [phone] [facility] Moderate persistent asthma, uncomplicatedAllerg ic rhinitis due to animal hair and danderUrticariaBMI pediatric, greater than or equal to 95% for age 8 Shine Tila . [address] [place] [address], [id number] , . tel:[phone] Referring Provider: Viktor Rock, [address] [place] [address], [address] . tel:[phone] [employer], [address] [place] [address], [id number] , tel: [phone] [facility] Moderate persistent asthma, uncomplicatedAllerg ic rhinitis due to animal hair and danderUrticaria 201 8 Shine Tila . [address] [place] [address], [id number] , . tel:[phone] Referring Provider: Viktor Rock, [address] [place] [address], [address] . tel:[phone] [facility], [address] [place] [address], [id number] , tel: [phone] [facility] Moderate persistent asthma without complicationAllergi c rhinitis due to animal hair and dander 7 Shine Tila . [address] [place] [address], [id number] , . tel: [phone] Referring Provider: Viktor Rock, [address] [place] [address], [address] . tel:[phone] [facility], [address], [place], [place], [address] , [place] tel: [phone] [facility] Moderate persistent asthma without complicationAllergi c rhinitis due to animal hair and dander 7 Pranav Hoang. [address] [place] [address], [id number] , . tel: [phone] Referring Provider: Johnna Tinajero MD, [address] [place] [address], [place], [address]. tel:[phone] [facility], [address], [place], [place], [id number] , tel: [phone] [facility] Moderate persistent asthma without complicationAllergi c rhinitis due to animal hair and danderViral upper respiratory tract infectionOther viral agents as the cause of diseases classified elsewhere Pranav Hoang. [address] [place] [address], [id number] , . tel: [phone] Referring Provider: Johnna Tinajero MD, [address] [place] [address], [place], [address]. tel:[phone] [facility], [address], [place], [place], [address] , [place] tel: [phone] [facility] Moderate persistent asthma without complicationAllergi c rhinitis due to animal hair and dander 6 Modesto Adorno . [address] [place] [address], [id number] , [place]. tel: [phone] Referring Provider: Viktor Rock, [address] [place] [address], [address] . tel:[phone] [facility], [address], [place], [place], [address] , [place] tel: [phone] [facility] Moderate persistent asthma without complicationAllergi c rhinitis due to animal hair and danderEncounter for immunization 3 5 Eitanjacky KaiserTila . [address] [place] [address], [id number] , . tel: [phone] Referring Provider: Viktor Rock, [address] [place] [address], [address] . tel:[phone] [facility], [address], [place], [place], [address] , tel: [phone] [facility] INTRINSIC ASTHMA, UNSPECIFIEDAllergic rhinitis due to pollen Nov-0 8 5 Pranav Hoang. [address] [place] [address], [id number] , . tel: [phone] Referring Provider: Johnna Tinjaero MD, [address] [place] [address], [address]. tel:[phone] [facility], [address], [place], [id number] , tel: [phone] [facility] INTRINSIC ASTHMA, UNSPECIFIEDAllergic rhinitis due to pollen 4 Pranav Hoang. [address] [place] [address], [id number] , . tel: [phone] Referring Provider: Johnna Tinajero MD, [address] [place] [address], [address]. tel:[phone] [facility], [address], [place], [place], [id number] , tel: [phone] [facility] INTRINSIC ASTHMA, UNSPECIFIEDAllergic rhinitis due to pollenGERD 0 4 Pranav Hoang. [address] [place] [address], [id number] , . tel: [phone] Referring Provider: Johnna Tinajero MD, [address] [place] [address], [address]. tel:[phone] [facility], [address] [place] [address], [id number] , tel: [phone] [facility] INTRINSIC ASTHMA, UNSPECIFIEDAllergic rhinitis due to pollenGERD 4 Pranav Hoang. [address] [place] [address], [id number] , . tel: [phone] Referring Provider: Johnna Tinajero MD, [address] [place] [address], [address]. tel:[phone] [facility], [address], [place], [place], [address] , tel: [phone] [facility] INTRINSIC ASTHMA, UNSPECIFIEDAllergic rhinitis due to pollenGERD 3 Pranav Hoang. [address] [place] [address], [id number] , . tel: [phone] Referring Provider: Johnna Tinajero MD, [address] [place] [address], [address]. tel:[phone] [facility], [address], [place], [place], [id number] , [place] tel: [phone] [facility] INTRINSIC ASTHMA, UNSPECIFIEDAllergic rhinitis due to pollen 3 Pranav Hoang. [address] [place] [address], [id number] , . tel: [phone] Referring Provider: Johnna Tinajero MD, [address] [place] [address], [address]. tel:[phone] [facility], [address], [place], [id number] , tel: [phone] [facility] INTRINSIC ASTHMA, UNSPECIFIEDAllergic rhinitis due to pollen 2 Pranav Hoang. [address] [place] [address], [id number] , . tel: [phone] Referring Provider: Johnna Tinajero MD, [address] [place] [address], [address]. tel:[phone] [facility], [address], [place], [place], [address] , tel: [phone] [facility] INTRINSIC ASTHMA, UNSPECIFIEDAllergic rhinitis due to pollen Mar-1 4-201 2 Pranav Hoang. [address] [place] [address], [id number] , . tel: [phone] Referring Provider: Johnna Tinajero MD, [address] [place] [address] [address], [place], [address]. tel:[phone] [facility], [address], [place], [place], [address] , tel: [phone] [facility] Allergic rhinitis due to pollen Sep-1 4-201 1 Pranav Hoang. [address] [place] [address], [id number] , . tel: [phone] Referring Provider: Johnna Tinajero MD, [address] [place] [address] [address], [place], [address]. tel:[phone] [facility], [address], [place], [place], [id number] , tel: [phone] [facility] INTRINSIC ASTHMA, UNSPECIFIEDAllergic rhinitis due to pollen Mar-2 4-201 1 Pranav Hoang. [address] [place] [address], [id number] , . tel: [phone] Referring Provider: Johnna Tinajero MD, [address] [place] [address], [place], [address]. tel:[phone] [facility], [address], [place], [place], [address] , tel: [phone] [facility] INTRINSIC ASTHMA NOSRHINITIS DUE TO POLLEN Sep-2 3-201 0 Pranav Hoang. [address] [place] [address], [id number] , . tel: [phone] [facility], [address], [place], [place], [address] , tel: [phone] [facility] No Information Apr-0 9-200 7 Pranav Hoang. [address] [place] [address], [id number] , . tel: [phone] Family History Family Member Type Diagnosis Age At Onset No Information Immunizations Vaccine Date Status Comments Influenza, seasonal, injectable (3 yrs or older) administered Source: New Immunization Record Influenza, seasonal, injectable (3 yrs or older) administered Source: New Immunization Record flu (split) (3 yrs or older) administered Source: Parents Recall Payers Payer name Insurance type Covered democrat ID Dolores mustafa(s) COURTNEY CI [id number] [facility] CI [id number] BS PR BL [id number] Social History Type Description Quantity Date Captured Comments Sex Female Smoking Status No Information Chief Complaint And Reason For Visit No Information Reason For Referral Reason For Referral No Information Plan Of Treatment Date Type Action Status Appointment Nina Coyne BJ BOOKED History Of Present Illness Encounter Date Complaint History Of Prese nt Illness asthma allergy f/u Comments: Last o ffice visit 09/02/21 and before this on 03/27/21.Remains on Breo (100/) 1 click qd (since 03/24/16)Proair MDI or albuterol nebs PRN =- used occ. 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 allergies (comments) Allergens: DOG (08/04/13), RABBIT, GUINEA PIG, and HAMSTER danders (07/14/17)Meds: Cetirizine 10 mg PRN mainly.Has 1 dog at home that does bother her at times with conjunctivitis.Sinusitis above (08/21/21) asthma (comments) Last office vi sit 03/27/21 and before this on 08/27/20.Remains on Breo (/) 1 click qd (since 03/24/16) with good control (unable to decrease to Arnuity in past).Proair MDI or albuterol nebs PRN and mostly when sick with recent Influenza. Exacerbations: 09/16 and then 01/18 (BOM/URI requiring nebs and steroid burst) and again 08/20 (see below)Minimal trouble with exertion, and exercising daily (cardio work outs)Denies brain picker or nocturnal symptoms.At [employer] - vikram. and taking a semester off now. Had flu shot this fall and had COVID Pfizer x 2 and booster but then had Influenza A recently with episode of bronchitis/sinusitis. 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 Her asthma is classified as Moderate Persistent.She has had prior hospitalization(s) for asthma.Since Her last visit for asthma control on 03/27/2021, She has had asthma related:-hospitalizations: NO-ER/Urgent care visits: NO-oral steroids: NO-rescue inhaler use: YES-Missed school/work: NOAsthma Control Test score: 141. Unlimited activity: A little of the time (4)2. Caused shortness of breath: More than once a day (1)3. Interrupted sleep: Once or twice (4)4. How often using rescue med: 1 or 2 times per day (2)5. Personal rating of control: Somewhat controlled (3)The asthma is .Known triggers include: air pollution, colds, smoke and weather.Environmental exposure/control:Smoker: NOTobacco exposure: NOPets/animals: YES, dogsPrevious allergy testing was on 08/04/2013. [employer] - [facility]. Results - DOG dander only.Spirometry was last performed on 03/27/2021. Results - WITHIN NORMAL LIMITS.Asthma Medications:History of adverse reaction to therapy: NO Asthma-control Nina was seen [facility] management. Her asthma is classified as Moderate Persistent.She has had prior hospitalization(s) for asthma.Since Her last visit for asthma control on 08/27/2020, She has had asthma related:-hospitalizations: NO-ER/Urgent care visits: NO-oral steroids: YES, 01/09/21-rescue inhaler use: YES-Missed school/work: NOAsthma Control Test score: 221. Unlimited activity: None of the time (5)2. Caused shortness of breath: Once or twice a week (4)3. Interrupted sleep: Not at all (5)4. How often using rescue med: Once a week or less (4)5. Personal rating of control: Well controlled (4)The asthma is Well Controlled.Known triggers include: air pollution, colds, smoke and weather.Environmental exposure/control:Smoker: NOTobacco exposure: NOPets/animals: YES, dogsPrevious allergy testing was on 08/04/2013. [employer] Pradeep Rock. Results - DOG dander only.Spirometry was last performed on 03/27/2021. Results - MILDLY OBSTRUCTED.Asthma Medications:History of adverse reaction to therapy: NO asthma (comments) Last office vi sit 08/27/20 and before this on 04/02/10.Remains on Breo (100/25) 1 click qd (since 03/24/16) with good control, unable to decrease to Arnuity in past.Proair MDI or albuterol nebs PRNExacerbations: 09/16 and then 01/18 (BOM/URI requiring nebs and steroid burst)Minimal trouble with exertion, and exercising daily (cardio work outs)Denies brain picker or nocturnal symptoms.At [employer] again - vikram. 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 asthma allergies Asthma-control Nina was seen [facility] for asthma management. Her asthma is classified as Moderate Persistent.She has had prior hospitalization(s) for asthma.Since Her last visit for asthma control on 04/02/2020, She has had asthma related:-hospitalizations: NO-ER/Urgent care visits: NO-oral steroids: NO-rescue inhaler use: YES-Missed school/work: NOAsthma Control Test score: 201. Unlimited activity: None of the time (5)2. Caused shortness of breath: 3-6 times a week (3)3. Interrupted sleep: Once or twice (4)4. How often using rescue med: Once a week or less (4)5. Personal rating of control: Well controlled (4)The asthma is Well Controlled.Known triggers include: air pollution, colds, smoke and weather.Environmental exposure/control:Smoker: NOTobacco exposure: NOPets/animals: YES, dogsPrevious allergy testing was on 08/04/2013. [employer] Pradeep Rock. Results - DOG dander only.Spirometry was last performed on 04/02/2020. Results - MILDLY OBSTRUCTED.Asthma Medications:History of adverse reaction to therapy: NO asthma (comments) Last office vi sit 04/02/10 and before this on 10/05/19 Remains on Breo (100/25) 1 click qd (since 03/24/16) and had some trouble a week or so ago, and used some Proair with good relief. In past tried to decrease to Arnuity 100, but within a week had to return to Breo.Proair MDI or albuterol nebs PRN, none in past 6 months. 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 Had flu shot 06/19 allergies (comments) Allergens: DOG (08/04/13), RABBIT, GUINEA PIG, and HAMSTER danders (07/14/17)Meds: Cetirizine 10 mg PRNHas 1 dog at home that does bother her at times with conjunctivitis.No interim sinusitis. asthma allergies asthma asthma (comments) Last office vi sit 10/05/19 and before this on 01/25/19Was using Breo (100/25) 1 click qd (since 03/24/16) In past tried to decrease to Arnuity 100, but within a week had to return to Breo.Proair MDI or albuterol nebs PRN, none in past 6 months. Last major exacerbation 08/2016.Minimal trouble with exertion, and exercising dailyDenies brain picker or nocturnal symptoms.Going to [employer] in the fall 2019 - dorm this fall (freshman)Had flu shot 06/18 allergies (comments) Skin testin g (08/04/13) was positive for DOG dander and on 07/14/17 was also positive for RABBIT, GUINEA PIG, and HAMSTER.Continues to use Cetirizine 10 mg PRN.Has 1 dog at home that does bother her at times with conjunctivitis.No interim sinusitis.Has been seeing GI at [facility] lately for abdominal pain and continues to be seen for this.Diet is only restricted in terms of amounts so now trying smaller meals more often. Asthma-control Nina was seen [facility] for asthma management. Her asthma is classified as Moderate Persistent.She has had prior hospitalization(s) for asthma.Since Her last visit for asthma control on 10/05/2019, She has had asthma related:-hospitalizations: NO-ER/Urgent care visits: NO-oral steroids: NO-rescue inhaler use: YES-Missed school/work: NOAsthma Control Test score: 211. Unlimited activity: None of the time (5)2. Caused shortness of breath: Once or twice a week (4)3. Interrupted sleep: Once or twice (4)4. How often using rescue med: Once a week or less (4)5. Personal rating of control: Well controlled (4)The asthma is Well Controlled.Known triggers include: air pollution, colds, smoke and weather.Environmental exposure/control:Smoker: NOTobacco exposure: NOPets/animals: YES, dogsPrevious allergy testing was on 08/04/2013. [employer] Pradeep Rock. Results - DOG dander only.Spirometry was last performed on 10/05/2019. Results - WITHIN NORMAL LIMITS.Asthma Medications:History of adverse reaction to therapy: NO allergies asthma (comments) Last office vi sit 01/25/19 and before this on 07/27/18Was using Breo (100/25) 1 click qd (since 03/24/16) but at last visit changed to Arnuity 100, 1 click qd but within a week had to return to Breo.Proair MDI or albuterol nebs PRNLast major exacerbation 08/2016Minimal trouble with exertionDenies brain picker or nocturnal symptomsHad flu shot 06/18Going to [employer] [facility] in the fall 2019 allergies (comments) Skin testin g (08/04/13) was positive DOG dander and on 07/14/17 was positive for RABBIT, GUINEA PIG, and HAMSTER.Continues to use Cetirizine 10 mg PRN, but not much.Has 1 dog at home that does not bother her No interim sinusitis.Has been seeing GI at [facility] lately for abdominal painDiscussed unlikely this would be due to a food allergy. Reviewed food intolerances instead. Asthma-control Nina was seen [facility] for asthma management. Her asthma is classified as Mild Persistent.She has had prior hospitalization(s) for asthma.She has had asthma related:-hospitalizations: NO-ER/Urgent care visits: NO-oral steroids: NO-rescue inhaler use: YES-Missed school/work: NOAsthma Control Test score: 201. Unlimited activity: None of the time (5)2. Caused shortness of breath: 3-6 times a week (3)3. Interrupted sleep: Not at all (5)4. How often using rescue med: 2 or 3 times per week (3)5. Personal rating of control: Well controlled (4)The asthma is Well Controlled.Known triggers include: air pollution, colds, smoke and weather.Environmental exposure/control:Smoker: NOTobacco exposure: NOPets/animals: YES, dogsPrevious allergy testing was on 08/04/2013. [employer] [place]. Results - DOG dander only.Spirometry was last performed on 01/25/2019. Results - WITHIN NORMAL LIMITS.Asthma Medications:History of adverse reaction to therapy: NO allergies asthma Asthma (comments) Last office vi sit 07/27/18Continues to use Breo (100/25) 1 click qd (since 03/24/16) and Proair MDI or albuterol nebs PRNOtherwise she has felt well controlled without exacerbations since 08/2016Had to use Proair for chest tightness with possible allergic reaction (see below) with good relief She will have trouble with exertion only if it is intense Denies brain picker or nocturnal symptoms Rhinitis, allergic (comments) Sk in testing (08/04/13) was positive DOG dander and on 07/14/17 was positive for rabbits, guinea pigs, and hamsterContinues to use Cetirizine 10 mg PRN and has been using daily recently due to possible allergic reaction (see below)Has 1 dog at home that does not bother her She felt well controlled in the SpringShe had one sinusitis in November Hives (comments) History of occa sional random hivesTwo weeks ago started random with rash/hivesOne episode she had chest tightness and the feeling of throat closing with this rash first time was at school when she first got to school to right inner armShe describes rash as itchy red and raised Over the course of the day the rash starts to fade, treats with Benadryl cream with good relief of the itching but rash staysDenies new foods or products Seems to be worse when she is outside more Asthma Asthma-control Nina [facility]. Her asthma is classified as Moderate Persistent.She has had prior hospitalization(s) for asthma.Since Her last visit for asthma control on 07/27/2018, She has had asthma related:-hospitalizations: NO-ER/Urgent care visits: NO-oral steroids: NO-rescue inhaler use: YES-Missed school/work: NOAsthma Control Test score: 181. Unlimited activity: A little of the time (4)2. Caused shortness of breath: Once or twice a week (4)3. Interrupted sleep: Once or twice (4)4. How often using rescue med: 2 or 3 times per week (3)5. Personal rating of control: Somewhat controlled (3)The asthma is Well Controlled.Known triggers include: air pollution, colds, smoke and weather.Environmental exposure/control:Smoker: NOTobacco exposure: NOPets/animals: YES, dogsPrevious allergy testing was on 08/04/2013. [employer] - [employer]. Results - DOG dander only.Spirometry was last performed on 07/27/2018. Results - WNL.Asthma Medications:History of adverse reaction to therapy: NO Rhinitis, allergic Hives Functional Status Date Functional Assessmen t No Information Instructions Date Instruction Additional Infor shantelle We reviewed appropri ate environmental control measures for your rhinitis.Please continue with your present nasal medications or treatment that includes Cetirizine 10 mg once daily. May add Fluticasone nasal spray if increasing symptoms. Call for increasing symptoms or difficulty with medications. Refills provided or call when more are needed. Related to Allergic rhinitis due to animal hair and dander Pulmonary functions performed today with good effort were WITHIN NORMAL LIMITS for age and height. Asthma Control Test (normal >19) = 19 Asthma is overall stable. Continue with present daily controller medication (Breo 100/25, 1 click once daily) unchanged. I reviewed the benefits and risks including side effects of this medication. We discussed the use of rescue medication (Albuterol inhaler). Please call for the frequent use of your rescue inhaler (beyond that discussed above) or difficulties with your asthma causing frequent night time awakeningsGet last COVID booster some time this spring. Related to Moderate persistent asthma, uncomplicated Medication management Continue to avoid pe t dander exposures when possibleCetirizine 10 mg once daily as needed. Related to Allergic rhinitis due to animal hair and dander Pulmonary functions performed today with good effort were MILDLY OBSTRUCTED and likely reflecting the recent bronchitis episode requiring oral steroids. Asthma Control Test (normal >19) = 14. Asthma is overall stable though except for recent exacerbation. Continue with present daily controller medication (Breo 100/25, 1 click once daily) unchanged. I reviewed the benefits and risks including side effects of this medication. We discussed the use of rescue medication (Proair, Albuterol nebs as needed). Please call for the frequent use of your rescue inhaler (beyond that discussed above) or difficulties with your asthma causing frequent night time awakenings Related to Moderate persistent asthma, uncomplicated Medication management Continue to avoid mo st indoor dander exposures.Cetirizine 10mg once daily otherwise. Related to Allergic rhinitis due to animal hair and dander Pulmonary functions performed today with good effort were WITHIN NORMAL LIMITS for age and height. Asthma Control Test (normal >19) = 22. Asthma is overall stable. Continue with present daily controller medication (Breo 100/25, 1 click once daily) unchanged. I reviewed the benefits and risks including side effects of this medication. We discussed the use of rescue medication (Proair, albuterol nebs). Please call for the frequent use of your rescue inhaler (beyond that discussed above) or difficulties with your asthma causing frequent night time awakenings Related to Moderate persistent asthma, uncomplicated Medication management Medication management Continue to avoid in door animal dander exposures. Cetirizine 10 mg once daily as needed. Related to Allergic rhinitis due to animal hair and dander Pulmonary functions performed today with good effort were MILDLY OBSTRUCTED. Asthma Control Test (normal >19) = 20. Asthma is overall stable. Continue with present daily controller medication (Breo 100/25, 1 puff once daily) unchanged. I reviewed the benefits and risks including side effects of this medication. We discussed the use of rescue medication (Proair). Please call for the frequent use of your rescue inhaler (beyond that discussed above) or difficulties with your asthma causing frequent night time awakenings Related to Moderate persistent asthma, uncomplicated Medication management Continue present liyah idance precautions for animal danders. Related to Allergic rhinitis due to animal hair and dander Pulmonary functions performed today with good effort were MILDLY OBSTRUCTED and slightly lower than previous (? related to dog dander yesterday) Asthma Control Test (normal >19) = 21. Asthma is overall stable. Continue with present daily controller medication (Breo, 100/25, 1 click once daily) unchanged. I reviewed the benefits and risks including side effects of this medication. We discussed the use of rescue medication (Proair) and an Asthma Action Plan. Please call for the frequent use of your rescue inhaler (beyond that discussed above) or difficulties with your asthma causing frequent night time awakeningsFlu shot again this fall. Related to Moderate persistent asthma, uncomplicated Medication management Medication management We reviewed appropri ate environmental control measures for your rhinitis.Please continue with your present nasal medications or treatment that include Cetirizine 10 mg once daily. Call for increasing symptoms or difficulty with medications. Refills provided or call when more are needed. Related to Allergic rhinitis due to animal hair and dander Pulmonary functions performed today with good effort were WITHIN NORMAL LIMITS for age and height. Asthma Control Test (normal >19) = 20. Asthma is overall stable. Continue with present daily controller medication (Breo 06/24, 1 click once daily) unchanged. I reviewed the benefits and risks including side effects of this medication. We discussed the use of rescue medication (Proair) and an Asthma Action Plan. Please call for the frequent use of your rescue inhaler (beyond that discussed above) or difficulties with your asthma causing frequent night time awakenings Related to Mild persistent asthma without complication Medication management Continue with Cetiri zine daily. Continue to avoid animal dander as much as possible. Related to Allergic rhinitis due to animal hair and dander Pulmonary functions performed today with good effort were WITHIN NORMAL LIMITS for age and height and is similar to the reading from the last office visit Asthma has overall been stable. Continue with your daily controller medications however stop taking Breo and start taking Arnuity 1 inhalation every 24 hours. Call if/when would like a prescription send it. Continue to use the rescue medication Proair, as needed. Call for use of the rescue medication that is more than 2 times per week, difficulties with frequent night time awakenings, difficulties with exercise, or prolonged cough associated with colds. Related to Moderate persistent asthma, uncomplicated Continue to monitorC ontinue to use Cetirizine daily and may add Claritin 10 mg daily in the morning Related to Urticaria Medication management Medication management Assessments Type Assessment Date No Information Patient Care Teams Name Effective Dates (start - stop) Status Members No Information
--- OUTSIDE RECORDS SUMMARY | 2024-08-28 02:22 | XMS_ITS | Continuity of Care Document ---
Author Organization [facility] Address [address] [place] [address] Phone Care Team Providers Care Content Manager Name Role Phone Lees DOCK OPERATOR-C DOCK OPERATOR-C, Halle Unavailable Un available Allergies, Adverse Reactions, Alerts Substance Reaction Status Criticality dog dander Active No Information Penicillins Active No Information Medications Medication Instructions Dosage Effective Dates (start - stop) Status Comments cefdinir 300 mg capsule take 1 capsule by oral route every 12 hours 300 MG - Active Lexapro 10 mg tablet take 1 tablet by oral route every day 10 MG - Active Ortho Tri-Cyclen (28) 0.18 mg(7)/0.215 mg(7)/0.25 mg(7)-35 mcg tablet take 1 tablet by oral route every day 1.00 tablet - Active BREO ELLIPTA (unknown strength) inhale 1 puff by inhalation route every day at the same time each day Not Available - Active ALBUTEROL SULFATE HFA (unknown strength) inhale 2 puff by inhalation route every 4 - 6 hours as needed Not Available - Active Procedures Procedure Date STREP A ASSAY W/OPTIC HETEROPHILE ANTIBODIES - [place] Spot OFFICE/OUTPATIENT VISIT, EST Decadron Dexamethasone sodium phos Per 1 Mg Inj Kenalog Triamcinolone acetonide Inj Per 10mg THER/PROPH/DIAG INJ, SC/IM OFFICE/OUTPATIENT VISIT, NEW Results Test Name Date and Time Measure Units Reference Range Abnormal Flag Status Comments Panel Description: Mononucleosis Test, Qual Scre en Final Meriwether 18:28:00 Pos Final Panel Description: Strep A Screen Final Strep 17:50:00 Neg Final Advance Directives Directive Yes / No Effective Date File Name No Information Encounters Encounter Description Practice Location Reason(s) For Visit Diagnoses Date Provider Providers Copied on Encounter OFFICE/OUTPAT IENT VISIT, [facility], [address], [place], [place], [id number], tel:[phone] [facility] sore throat (chief complaint) Acute pharyngitis, unspecified 2 Yoana Neri. [address] [place] [address], [address], [place]. tel:[phone] Referring Provider: Halle Manriquez, [address] [place] [address], [id number]. tel:[phone] OFFICE/OUTPAT IENT VISIT, [facility], [address], [place], [place], [id number], [place] tel:[phone] [facility] Earache (chief complaint) Acute suppr otitis media w/o spon rupt ear drum, bilateral 1 Christopher Zarco. [address] [place], [place], [id number], [place]. tel:[phone] Referring Provider: Carolee White, [address] [place], [address] . tel:[phone] Family History Family Member Type Diagnosis Age At Onset No Information Payers Payer name Insurance type Covered republican ID Dolores mustafa(s) [facility] [id number] Social History Type Description Quantity Date Captured Comments Alcohol Use Details Unknown Caffeine Use Details Unknown Tobacco Use Status No Information Smoking Status No Information Sex Female Vital Signs Date / Time: Height Weight BMI Pulse Rate Blood Pressure Temperature Respiratory Rate Body Surface Area Head Circumference Head Circ. Percentile Wt./Yves. Percentile BMI percentile Pulse Ox Inhaled Ox Aug-28 -2022 5:34 PM 63.00 in 92.986 kg (205.00 lbs) 36.3 1 kg/m eter (2) 97 /min 120/68 mm[Hg] 96.40 F 20 /min 98 % 21 % Chief Complaint And Reason For Visit From encounter dated '04/27/2022 17:05'. sore throat (chief complaint). Description: Onset: 3 Days. The severity of the problem is moderate.Pain scale: 6/10. The problem has worsened. The symptoms are persistent. Aggravating factors include exertion and lying down. Associated symptoms include pharyngitis and postnasal drainage. Pertinentnegatives include chills/rigors, cough, dyspnea, facial pain, fatigue, fever, headache, hemoptysis,myalgia, nasal congestion, otalgia, rash, rhinitis, sinus pressure, sputum, tooth pain or wheezing. Reason For Referral Reason For Referral No Information History Of Present Illness Encounter Date Complaint History Of Prese nt Illness sore throat Onset: 3 Days. T he severity of the problem is moderate. Pain scale: 6/10. The problem has worsened. The symptoms are persistent. Aggravating factors include exertion and lying down. Associated symptoms include pharyngitis and postnasal drainage. Pertinent negatives include chills/rigors, cough, dyspnea, facial pain, fatigue, fever, headache, hemoptysis, myalgia, nasal congestion, otalgia, rash, rhinitis, sinus pressure, sputum, tooth pain or wheezing. Earache Onset: on 2020. The patient states the earache is in both ears. The problem is worse. Denies relieving factors. Associated symptoms include drainage (clear), ear pressure, fullness in ears and hearing deficit. Pertinent negatives include bleeding from ear(s), fever, mastoid bone tenderness and nausea. Additional information: patient c/o ear ache bilaterally. She is having drainage from both ears. She is having lots of pressure in her ears. She is having hearing loss more in her left ear. She has seasonal allergies. Functional Status Date Functional Assessmen t Pain Score 6/10 Instructions Date Instruction Additional Infor jfion 1. Rapid strep-Negat ive2. Meriwether-Positive3. Kenalog and Decadron IM4. Soft foods5. Tylenol or Ibuprofen PRN6. MvIfluids, rest, avoid contact sports, heavy lifting, running , jumping, etc for 6 weeks Related to Acute pharyngitis, unspecified Omnicef 300mg #20 Si cap po BID NR called to [facility] if no resolution Related to Acute suppr otitis media w/o spon rupt ear drum, bilateral Assessments Type Assessment Date assessment Acute pharyngitis, unspecified A impression Patient presents to Urgent Care today with c/o ST for 3 days. Ears and TM clear. Throat erythema, tonsils +4 exudate. Uvula mid line, no rash or strawberry tongue. LCTAB. HRRR Mental Status Date Cognitive Assessment Orientation - [place] ed to time, place, person, situation. Patient Care Teams Name Effective Dates (start - stop) Status Members No Information
--- OUTSIDE RECORDS SUMMARY | 2024-08-28 02:52 | XMS_ITS | Encounter Summary ---
Author Organization [facility] Address [address] [place] [address] Care Team Providers Care Supervisor Concrete Pipe Plant Name Role Phone Johnna Tinajero MD [...] COVID-19? No / Unsure 08/21/2021 1:54 PM STRUCTURAL BIOLOGIST documented as of this encounter Plan of Treatment Not on file documented as of this encounter Visit Diagnoses Not on filedocumented in this encounter Care Teams Supervisor Concrete Pipe Plant Relationship Specialty Start Date End Date Johnna Tinajero MD [address] [address] PCP - General Pediatrics 09/23/17 documented as of this encounter
--- OUTSIDE RECORDS SUMMARY | 2024-08-28 02:52 | XMS_ITS | Encounter Summary ---
Author Organization [facility] Address [address] [facility] [place] [address] Care Team Providers Care Internal Audit Director Name Role Phone Johnna Tinajero MD Primary Care Provider + Reason for Visit * Reason Comments Ear Pain Encounter Details Date Type Department Care Team (Late st Contact Info) Description 01/23/2021 3:00 PM CDT Office Visit [facility] AT [address] [phone] Provider, [facility] [place] Non-recurrent acute suppurative otitis media of both [...] your child. The above information is an research aide only. It is not intended as medical advice for individual conditions or treatments. Talk to your doctor, nurse or pharmacist before following any medical regimen to see if it is safe and effective for you. ?? Copyright [employer] 2020 Information is for End User's use only and may not be sold, redistributed or otherwise used for commercial purposes. All illustrations and images included in CareNotes?? are the copyrighted property of [employer] or [employer] documented in this encounter Progress Notes * [...] Gatherings with Friends and Family: ??? Attends Orthodox Services: ??? Active Member of Clubs or [...] ears documented in this encounter Care Teams Internal Audit Director Relationship Specialty Start Date End Date Johnna Tinajero MD [address] [address] PCP - General Pediatrics 09/23/17 documented as of this encounter
--- OUTSIDE RECORDS SUMMARY | 2024-08-28 02:52 | XMS_ITS | Clinical Summary ---
Author Organization [facility] Address [address] [facility] [place] [address] Care Team Providers Care Posting Specialist Name Role Phone Johnna Tinajero MD Primary Care Provider + Source Comments [facility],non-owned Affiliates and Associated Physician Practices is amultiple site organization consisting of ambulatory clinics and hospital sitesin [place], [place], [place] and [place]. This disclosure is being madepursuant to the Care Everywhere program and may not contain all information available regarding this patient. Last updated 18.[facility] Allergies Active Allergy Reactions Criticality Noted Date [...] fluticasone propionate (FLONASE) 50 MCG/ACT nasal spray [place] 2 sprays into each nostril once daily [...] Comments Blood Pressure 120/82 08/21/2021 2:11 PM ENGAGEMENT LEAD Pulse 80 08/21/2021 2:11 PM ENGAGEMENT LEAD Temperature 36.6 ??C (97.9 ??F) 08/21/2021 2:11 PM CS T Respiratory Rate 18 08/21/2021 2:11 PM ENGAGEMENT LEAD Oxygen Saturation 99% 08/21/2021 2:11 PM ENGAGEMENT LEAD Inhaled Oxygen Concentration - - Weight 90.7 kg (200 lb) 08/21/2021 2:11 PM ENGAGEMENT LEAD Height 160 cm (5' 3 ) 08/21/2021 2:11 PM ENGAGEMENT LEAD Body Mass Index 35.43 08/21/2021 2:11 PM ENGAGEMENT LEAD Plan of Treatment Health Maintenance Due Date [...] age to complete this topic Care Teams Posting Specialist Relationship Specialty Start Date End Date Johnna Tinajero MD [address] [address] PCP - General Pediatrics 09/23/17
--- OUTSIDE RECORDS SUMMARY | 2024-08-28 02:52 | XMS_ITS | Encounter Summary ---
Author Organization [facility] Address [address] [place] [address] Care Team Providers Care Office Clerk Name Role Phone Johnna Tinajero MD Primary Care Provider + Reason for Visit * Reason Onset Date Comments Follow-up 08/23/2021 Encounter Details Date Type Department Care Team (Late st Contact Info) Description 08/23/2021 Telephone [facility] Get Together [facility] AT [address] [phone] Erna Schmidt CNA Follow-up Social History Tobacco [...] COVID-19? No / Unsure 08/21/2021 1:54 PM TOP IRONER documented as of this encounter Miscellaneous Notes * Telephone Encounter - Erna Schmidt MA - 08/23/2021 3:09 PM TOP IRONER Courtesy follow-up phone call made to patient. Message left advising patient to call service [facility] [phone] if they have any questions or concerns. Erna Schmidt MA 08/23/2021 3:10 PM IRONER documented in this encounter Plan of Treatment Not on file documented as of this encounter Visit Diagnoses Not on filedocumented in this encounter Care Teams Office Clerk Relationship Specialty Start Date End Date Johnna Tinajero MD [address] [address] PCP - General Pediatrics 09/23/17 documented as of this encounter
--- OUTSIDE RECORDS SUMMARY | 2024-08-28 02:52 | XMS_ITS | Encounter Summary ---
Author Organization [facility] Address [address] [place] [address] Care Team Providers Care Research Subject Name Role Phone Johnna Tinajero MD Primary Care Provider + Reason for Visit * Reason Onset Date Comments Follow-up 10/07/2017 Encounter Details Date Type Department Care Team (Late st Contact Info) Description 10/07/2017 Telephone [facility] [employer] [facility] [address] [phone] Rajwinder Rock Follow-up Social History Tobacco Use [...] on filedocumented in this encounter Care Teams Research Subject Relationship Specialty Start Date End Date Johnna Tinajero MD [address] [address] PCP - General Pediatrics 09/23/17 documented as of this encounter
--- OUTSIDE RECORDS SUMMARY | 2024-08-28 02:52 | XMS_ITS | Encounter Summary ---
Author Organization [facility] Address [address] [place] [address] Care Team Providers Care Group Home Counselor Name Role Phone Johnna Tinajero MD Primary Care Provider + Reason for Visit * Reason Onset Date Comments Follow-up 01/25/2021 LMOR to call if any questions or concerns Encounter Details Date Type Department Care Team (Late Contact Info) Description 01/25/2021 Telephone [facility] AT [address] [phone] Renata Hampton, GROUND LAYER-VESSEL MANAGER [address] [phone] Follow-up (LMOR to call if [...] on filedocumented in this encounter Care Teams Group Home Counselor Relationship Specialty Start Date End Date Johnna Tinajero MD [address] [address] PCP - General Pediatrics 09/23/17 documented as of this encounter
--- OUTSIDE RECORDS SUMMARY | 2024-08-28 02:52 | XMS_ITS | Continuity of Care Document ---
Author Organization [facility] Address [address] [place] [address] Phone Care Team Providers Care Commercial Horticulture Instructor Name Role Phone Viktor Rock MD Unavailable [...] route every day 10 MG - Active Tri-Lo-Yancy 0.18/0.215/0.25 mg-25 mcg tablet take 1 tablet by oral route every day 1.00 tablet - Active Lexapro 20 mg tablet take 1 tablet by oral route every day 20 MG - Active Vitamin C 500 mg tablet - Active Procedures Procedure Date HEALTH RISK ASSESSMENT, PATIENT-FOCUSED OFFICE [id number] SYST BP GE 130 - 139MM HG DIAST BP >= 90 MM HG MOUTHPIECE RESPIRATORY FLOW VOLUME LOOP HEALTH RISK ASSESSMENT, PATIENT-FOCUSED OFFICE [id number] BODY MASS INDEX DOCD SYST BP >= 140 MM HG6 IT DIAST BP >= 90 MM HG RESPIRATORY FLOW VOLUME LOOP MOUTHPIECE HEALTH RISK ASSESSMENT, PATIENT-FOCUSED MOUTHPIECE RESPIRATORY FLOW VOLUME LOOP OFFICE [id number] BODY MASS INDEX DOCD SYST BP LT 130 MM HG DIAST BP < 80 MM HG HEALTH RISK ASSESSMENT, PATIENT-FOCUSED OFFICE [id number] BODY MASS INDEX DOCD SYST BP LT 130 MM HG DIAST BP < 80 MM HG RESPIRATORY FLOW VOLUME LOOP MOUTHPIECE HEALTH RISK ASSESSMENT, PATIENT-FOCUSED OFFICE [id number] BODY MASS INDEX DOCD SYST BP LT 130 MM HG DIAST BP < 80 MM HG RESPIRATORY FLOW VOLUME LOOP MOUTHPIECE HEALTH RISK ASSESSMENT, PATIENT-FOCUSED OFFICE [id number] BODY MASS INDEX DOCD PULMONARY SPIROMETRY, FUNCTION 20 MOUTHPIECE Advance Directives Directive Yes / No Effective Date File Name No Information Encounters Encounter Description Practice Location Reason(s) For Visit Diagnoses Date Provider Providers Copied on Encounter [facility], [address], [place], [place], [id number] , [place] tel: [phone] [facility] [place] No Information 4 Pranav Hoang. [address], [id number] , [place]. tel: [phone] OFFICE [id number]-[id number]-GV TAILED [facility], [address], [place], [place], [address] , [place] tel: [phone] [facility] [place] asthma (chief complaint) allergy f/u (chief complaint) Moderate persistent asthma, uncomplicatedAllerg ic rhinitis due to animal hair and dander 3 Pranav Hoang. [address], [id number] , . tel: [phone] Referring Provider: Vicki Johnson, [address], [place], [address]. tel:[phone] [facility], [address], [place], [place], [address] , [place] tel: [phone] [facility] [place] No Information 3 Pranav Hoang. [address] [place] [address], [id number] , . tel: [phone] OFFICE ZYMTW-KCY-CD TAILED [facility], [address], [place], [place], [address] , tel: [phone] [facility] [place] asthma (chief complaint) Asthma-con trol (chief complaint) allergies (chief complaint) Moderate persistent asthma, uncomplicatedAllerg ic rhinitis due to animal hair and dander 2 Pranav Hoang. [address] [place] [address], [id number] , . tel: [phone] Referring Provider: Viktor Rock, [address] [place] [address], [address] . tel:[phone] OFFICE UVTFM-GJR-AO TAILED [facility], [address], [place], [place], [address] , [place] tel: [phone] [facility] [place] asthma (chief complaint) Asthma-con trol (chief complaint) allergies (chief complaint) Moderate persistent asthma, uncomplicatedAllerg ic rhinitis due to animal hair and dander 1 Pranav Hoang. [address] [place] [address], [id number] , . tel: [phone] Referring Provider: Viktor Rock, [address] [place] [address], [address] . tel:[phone] OFFICE [id number]-DVB-AD TAILED [facility], [address], [place], [place], [address] , tel: [phone] [facility] [place] asthma (chief complaint) Asthma-con trol (chief complaint) allergies (chief complaint) Moderate persistent asthma, uncomplicatedAllerg ic rhinitis due to animal hair and dander Jul- 0 Pranav Hoang. [address] [place] [address], [id number] , . tel: [phone] Referring Provider: Johnna Tinajero MD, [address] [place] [address], [place], [address]. tel:[phone] OFFICE [id number]-YYI-LI [facility], [address], [place], [place], [address] , tel: [phone] [facility] [place] asthma (chief complaint) Asthma-con trol (chief complaint) allergies (chief complaint) Allergic rhinitis due to animal hair and danderModerate persistent asthma, uncomplicated Mar-0 0 Pranav Hoang. [address], [id number] , . tel: [phone] Referring Provider: Johnna Tinajero MD, [address] [place] [address], [place], [address]. tel:[phone] OFFICE CRYFZ-JSZ-UX [facility], [address], [place], [place], [address] , tel: [phone] [facility] [place] asthma (chief complaint) Asthma-con trol (chief complaint) allergies (chief complaint) Mild persistent asthma without complicationAllergi c rhinitis due to animal hair and dander Fe-0 0 Pranav Hoang. [address] [place] [address], [id number] , . tel: [phone] Referring Provider: Johnna Tinajero MD, [address] [place] [address], [place], [address]. tel:[phone] [facility], [address], [place], [id number] , tel: [phone] [facility] Asthma (chief complaint) Asthma-con trol (chief complaint) Rhinitis, allergic (chief complaint) Hives (chief complaint) Moderate persistent asthma, uncomplicatedAllerg ic rhinitis due to animal hair and danderUrticaria 201 9 Shine Tila . [address] [place] [address], [id number] , . tel:[phone] Referring Provider: Viktor Rock, [address] [place] [address], [address] . tel:[phone] [facility], [address] [facility], [place], [place], [address] , tel: [phone] [facility] Moderate persistent asthma, uncomplicatedAllerg ic rhinitis due to animal hair and danderUrticariaBMI pediatric, greater than or equal to 95% for age 10 Shine Tila . [address] [place] [address], [id number] , . tel:[phone] Referring Provider: Viktor Rock, [address] [place] [address], [address] . tel:[phone] [facility], [address] [place] [address], [id number] , tel: [phone] [facility] Moderate persistent asthma, uncomplicatedAllerg ic rhinitis due to animal hair and danderUrticaria 201 8 Shine Tila . [address] [place] [address], [id number] , . tel:[phone] Referring Provider: Viktor Rock, [address] [place] [address], [address] . tel:[phone] [facility], [address] [place] [address], [id number] , tel: [phone] [facility] Moderate persistent asthma without complicationAllergi c rhinitis due to animal hair and dander 7 Shine Tila . [address] [place] [address], [id number] , . tel: [phone] Referring Provider: Viktor Rock, [address] [place] [address], [address] . tel:[phone] [facility], [address], [place], [place], [address] , [place] tel: [phone] [facility] Moderate persistent asthma without complicationAllergi c rhinitis due to animal hair and dander 7 Pranav Hoang. [address] [place] [address], [id number] , . tel: [phone] Referring Provider: Johnna Tinajero MD, [address] [place] [address], [place], [address]. tel:[phone] [facility], [address], [place], [place], [address] , tel: [phone] [facility] Moderate persistent asthma without complicationAllergi c rhinitis due to animal hair and danderViral upper respiratory tract infectionOther viral agents as the cause of diseases classified elsewhere Pranav Hoang. [address] [place] [address], [id number] , . tel: [phone] Referring Provider: Johnna Tinajero MD, [address] [place] [address], [place], [address]. tel:[phone] [facility], [address], [place], [place], [address] , [place] tel: [phone] [facility] Moderate persistent asthma without complicationAllergi c rhinitis due to animal hair and dander 6 Modesto Adorno . [address] [place] [address], [id number] , [place]. tel: [phone] Referring Provider: Viktor Rock, [address] [place] [address], [address] . tel:[phone] [facility], [address], [place], [place], [address] , [place] tel: [phone] [facility] Moderate persistent asthma without complicationAllergi c rhinitis due to animal hair and danderEncounter for immunization 3 5 Eitanjacky KaiserTila . [address] [place] [address], [id number] , . tel: [phone] Referring Provider: Viktor Rock, [address] [place] [address], [address] . tel:[phone] [facility], [address], [place], [place], [address] , tel: [phone] [facility] INTRINSIC ASTHMA, UNSPECIFIEDAllergic rhinitis due to pollen Nov-0 8 5 Pranav Hoang. [address] [place] [address], [id number] , . tel: [phone] Referring Provider: Johnna Tinajero MD, [address] [place] [address], [address]. tel:[phone] [facility], [address], [place], [address] , tel: [phone] [facility] INTRINSIC ASTHMA, UNSPECIFIEDAllergic rhinitis due to pollen 4 Pranav Hoang. [address] [place] [address], [id number] , . tel: [phone] Referring Provider: Johnna Tinajero MD, [address] [place] [address], [address]. tel:[phone] [facility], [address], [place], [place], [id number] , tel: [phone] [facility] INTRINSIC ASTHMA, UNSPECIFIEDAllergic rhinitis due to pollenGERD 0 4 rPanav Hoang. [address] [place] [address], [id number] , . tel: [phone] Referring Provider: Johnna Tinajero MD, [address] [place] [address], [address]. tel:[phone] [facility], [address] [place] [address], [id number] , tel: [phone] [facility] INTRINSIC ASTHMA, UNSPECIFIEDAllergic rhinitis due to pollenGERD 4 Pranav Hoang. [address] [place] [address], [id number] , . tel: [phone] Referring Provider: Johnna Tinajero MD, [address] [place] [address], [address]. tel:[phone] [facility], [address], [place], [place], [address] , tel: [phone] [facility] INTRINSIC ASTHMA, UNSPECIFIEDAllergic rhinitis due to pollenGERD 3 Pranav Hoang. [address] [place] [address], [id number] , . tel: [phone] Referring Provider: Johnna Tinajero MD, [address] [place] [address], [address]. tel:[phone] [facility], [address], [place], [place], [address] , [place] tel: [phone] [facility] INTRINSIC ASTHMA, UNSPECIFIEDAllergic rhinitis due to pollen 3 Pranav Hoang. [address] [place] [address], [id number] , . tel: [phone] Referring Provider: Johnna Tinajero MD, [address] [place] [address], [address]. tel:[phone] [facility], [address], [place], [address] , tel: [phone] [facility] INTRINSIC ASTHMA, UNSPECIFIEDAllergic rhinitis due to pollen 2 Pranav Hoang. [address] [place] [address], [id number] , . tel: [phone] Referring Provider: Johnna Tinajero MD, [address] [place] [address], [address]. tel:[phone] [facility], [address], [place], [place], [address] , tel: [phone] [facility] INTRINSIC ASTHMA, UNSPECIFIEDAllergic rhinitis due to pollen Mar-1 4-201 2 Pranav Hoang. [address] [place] [address], [id number] , . tel: [phone] Referring Provider: Johnna Tinajero MD, [address] [place] [address], [place], [address]. tel:[phone] [facility], [address], [place], [place], [address] , tel: [phone] [facility] Allergic rhinitis due to pollen Sep-1 4-201 1 Pranav Hoang. [address] [place] [address], [id number] , . tel: [phone] Referring Provider: Johnna Tinajero MD, [address] [place] [address], [place], [address]. tel:[phone] [facility], [address], [place], [place], [address] , tel: [phone] [facility] INTRINSIC ASTHMA, UNSPECIFIEDAllergic rhinitis due to pollen Mar-2 4-201 1 Pranav Hoang. [address] [place] [address], [id number] , . tel: [phone] Referring Provider: Johnna Tinajero MD, [address] [place] [address], [place], [address]. tel:[phone] [facility], [address], [place], [place], [address] , tel: [phone] [facility] INTRINSIC ASTHMA NOSRHINITIS DUE TO POLLEN Sep-2 3-201 0 Pranav Hoang. [address] [place] [address], [id number] , . tel: [phone] [facility], [address], [place], [place], [address] , tel: [phone] [facility] No Information Apr-0 9-200 7 Pranav Hoang. [address] [place] [address], [id number] , . tel: [phone] Family History Family Member Type Diagnosis Age At Onset No Information Immunizations Vaccine Date Status Comments Influenza, seasonal, injectable (3 yrs or older) administered Source: New Immunization Record Influenza, seasonal, injectable (3 yrs or older) administered Source: New Immunization Record flu (split) (3 yrs or older) administered Source: Parents Recall Payers Payer name Insurance type Covered alliance party ID Dolores mustafa(s) COURTNEY CI [id number] [facility] CI [id number] [place] [id number] Social History Type Description Quantity Date Captured [...] 01/18,08/20, none since.Minimal trouble with exertion Denies digital performance analyst or nocturnal symptoms.At [employer] now [...] exertion, and exercising daily (cardio work outs)Denies digital performance analyst or nocturnal symptoms.At [employer] [facility] [employer] - vikram. and taking a semester off [...] YES, dogsPrevious allergy testing was on 08/04/2013. [facility] - Pranav. Results - DOG dander only.Spirometry [...] YES, dogsPrevious allergy testing was on 08/04/2013. [facility] Pradeep Rock. Results - DOG dander only.Spirometry [...] exertion, and exercising daily (cardio work outs)Denies digital performance analyst or nocturnal symptoms.At [employer] again - vikram. and in dorm [...] YES, dogsPrevious allergy testing was on 08/04/2013. [facility] Pradeep Rock. Results - DOG dander only.Spirometry [...] exertion, and exercising daily (cardio work outs)Denies digital performance analyst or nocturnal symptoms.At 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 in the fall 2019 - dorm this fall (freshman)Had flu shot 06/18 allergies (comments) Skin testin g (08/04/13) was positive for DOG dander and on 07/14/17 was also positive for RABBIT, GUINEA PIG, and HAMSTER.Continues to use Cetirizine 10 mg PRN.Has 1 dog at home that does bother her at times with conjunctivitis.No interim sinusitis.Has been seeing GI at [facility] lately for abdominal pain and continues to [...] YES, dogsPrevious allergy testing was on 08/04/2013. [facility] Pradeep Rock. Results - DOG dander only.Spirometry [...] PRNLast major exacerbation 08/2016Minimal trouble with exertionDenies digital performance analyst or nocturnal symptomsHad flu shot 06/18Going to [employer] in the fall 2019 allergies (comments) Skin testin g (08/04/13) was positive DOG dander and on 07/14/17 was positive for RABBIT, GUINEA PIG, and HAMSTER.Continues to use Cetirizine 10 mg PRN, but not much.Has 1 dog at home that does not bother her No interim sinusitis.Has been seeing GI at [facility] lately for abdominal painDiscussed unlikely this would [...] YES, dogsPrevious allergy testing was on 08/04/2013. [facility]ary beth Rock. Results - DOG dander only.Spirometry [...] exertion only if it is intense Denies digital performance analyst or nocturnal symptoms Rhinitis, allergic (comments) Sk [...] YES, dogsPrevious allergy testing was on 08/04/2013. [facility] - Pranav. Results - DOG dander only.Spirometry [...]
--- OUTSIDE RECORDS SUMMARY | 2024-08-28 02:52 | XMS_ITS | Encounter Summary ---
Author Organization [facility] Address [address] [address] Care Team Providers Care Tong Hooker Name Role Phone Johnna Tinajero MD Primary Care Provider + Reason for Visit * Reason Comments Ear Pain Headache Pain Neck Encounter Details Date Type Department Care Team (Late st Contact Info) Description 09/23/2017 5:40 PM PSYCHIATRIC ARNP Office Visit [facility] AT [address] [id number] Provider, [facility] Exp Lynx Other acute nonsuppurative otitis media of both [...] Comments Blood Pressure 120/80 09/23/2017 5:37 PM PSYCHIATRIC ARNP Pulse 94 09/23/2017 5:37 PM PSYCHIATRIC ARNP Temperature 36.5 ??C (97.7 ??F) 09/23/2017 5:37 PM CS T Respiratory Rate 16 09/23/2017 5:37 PM PSYCHIATRIC ARNP Oxygen Saturation 99% 09/23/2017 5:37 PM PSYCHIATRIC ARNP Inhaled Oxygen Concentration - - Weight 107 kg (236 lb) 09/23/2017 5:37 PM PSYCHIATRIC ARNP Height 160 cm (5' 3 ) 09/23/2017 5:37 PM PSYCHIATRIC ARNP Body Mass Index 41.81 09/23/2017 5:37 PM PSYCHIATRIC ARNP Body Mass Index Percentile 99.81% 09/23/2017 5:3 7 PM PSYCHIATRIC ARNP Growth Chart: CDC (Girls, 2- 20 Years) documented in this encounter Patient Instructions * Patient Instructions* Jose Mckinney APRN-CNP - 09/23/2017 5:52 PM PSYCHIATRIC ARNP Drink plenty of fluids Get plenty of rest Cool mist humidifier Elevate head of bed Tylenol or Ibuprofen per package direction for discomfort\fever (if not allergic) Follow up in 2-3 days if no improvement or sooner if worsening. HIATRIC ARNP documented in this encounter Progress Notes * [...] previous visit (from the past 24 hour(s)). HIATRIC ARNP documented in this encounter Plan of Treatment Not on file documented as of this encounter Visit Diagnoses Diagnosis Other acute nonsuppurative otitis media of both ears, recurrence not specified- Primary documented in this encounter Care Teams Tong Hooker Relationship Specialty Start Date End Date Johnna Tinajero MD [address] [place] [address] PCP - General Pediatrics 09/23/17 documented as of this encounter
--- OUTSIDE RECORDS SUMMARY | 2024-08-28 02:52 | XMS_ITS | Patient Health Summary ---
Author Organization [facility] Address [address] [facility] [address] Care Team Providers Care Testing Consultant Name Role Phone Johnna Tinajero MD Primary Care Provider + Note from [facility],non-owned Affiliates and Associated Physician Practices is amultiple site organization consisting of ambulatory clinics and hospital sitesin [place], [place], [place] and [place]. This disclosure is being madepursuant to the Care Everywhere program and may not contain all information available regarding this patient. Last updated 18.[facility] Allergies * Penicillins(Rash) -Medium Criticality Medications * [...] propionate (FLONASE) 50 MCG/ACT nasal spray(Started 10/05/2017) [place] 2 sprays into each nostril once daily [...] Comments Blood Pressure 120/82 08/21/2021 2:11 PM COLOR MAKER FORMULATOR Pulse 80 08/21/2021 2:11 PM COLOR MAKER FORMULATOR Temperature 36.6 ??C (97.9 ??F) 08/21/2021 2:11 PM CS T Respiratory Rate 18 08/21/2021 2:11 PM COLOR MAKER FORMULATOR Oxygen Saturation 99% 08/21/2021 2:11 PM COLOR MAKER FORMULATOR Inhaled Oxygen Concentration - - Weight 90.7 kg (200 lb) 08/21/2021 2:11 PM COLOR MAKER FORMULATOR Height 160 cm (5' 3 ) 08/21/2021 2:11 PM COLOR MAKER FORMULATOR Body Mass Index 35.43 08/21/2021 2:11 PM COLOR MAKER FORMULATOR Procedures * STREP A SCREEN - POINT OF CARE (AMB) STL(Performed 10/05/2017) Performed for Dysfunction of both eustachian tubes Results * STREP A SCREEN - POINT OF CARE (AMB) STL (10/05/2017) Strep A Rapid POCT Negative Negative Strep A Internal Control Present Lot # [id number] Expiration Date 05 07 2019 Throat ENTIRE THROAT (SURFACE REGION OF NECK) / Unknown 10/05/2017 Carrie Johns VOCATIONAL REHABILITATION CONSULTANT-DEPARTMENT COORDINATOR LAB - POINT OF CA RE ORDERABLES Care Teams Testing Consultant Relationship Specialty Start Date End Date Johnna Tinajero MD [facility] [address] PCP - General Pediatrics 09/23/17
--- OUTSIDE RECORDS SUMMARY | 2024-08-28 02:52 | XMS_ITS | Encounter Summary ---
Author Organization [facility] Address [address] [facility] [place] [address] Care Team Providers Care Technical Account Representative Name Role Phone Johnna Tinajero MD Primary Care Provider + Reason for Visit * Reason Comments Cough one week Congestion Sinusitis Encounter Details Date Type Department Care Team (Late st Contact Info) Description 08/21/2021 2:00 PM FACILITATOR Office Visit [facility] AT [address] [phone] Provider, [facility] Acute sinusitis, recurrence not specified, unspecified location [...] COVID-19? No / Unsure 08/21/2021 1:54 PM FACILITATOR documented as of this encounter Last Filed Vital Signs Vital Sign Reading Time Taken Comments Blood Pressure 120/82 08/21/2021 2:11 PM FACILITATOR Pulse 80 08/21/2021 2:11 PM FACILITATOR Temperature 36.6 ??C (97.9 ??F) 08/21/2021 2:11 PM CS T Respiratory Rate 18 08/21/2021 2:11 PM FACILITATOR Oxygen Saturation 99% 08/21/2021 2:11 PM FACILITATOR Inhaled Oxygen Concentration - - Weight 90.7 kg (200 lb) 08/21/2021 2:11 PM FACILITATOR Height 160 cm (5' 3 ) 08/21/2021 2:11 PM FACILITATOR Body Mass Index 35.43 08/21/2021 2:11 PM FACILITATOR documented in this encounter Progress Notes * Nghia Caballero, BINA-VALVE FITTER - 08/21/2021 2:11 PM CST [facility] Nina Coyne is a 21 year old [...] fluticasone propionate (FLONASE) 50 MCG/ACT nasal spray [place] 2 sprays into each nostril once daily [...] fluticasone propionate (FLONASE) 50 MCG/ACT nasal spray [place] 2 sprays into each nostril once daily [...] and tx Handout No, to any testing. LITATOR documented in this encounter Plan of Treatment Not on file documented as of this encounter Visit Diagnoses Diagnosis Acute sinusitis, recurrence not specified, unspecified location- Primary Acute bronchitis, unspecified organism documented in this encounter Care Teams Technical Account Representative Relationship Specialty Start Date End Date Johnna Tinajero MD [address] [address] PCP - General Pediatrics 09/23/17 documented as of this encounter
--- OUTSIDE RECORDS SUMMARY | 2024-08-28 02:52 | XMS_ITS | Referral Summary ---
Author Organization [facility] Address [address] [facility] [place] [address] Care Team Providers Care Hot Worker Name Role Phone Johnna Tinajero MD Primary Care Provider + Source Comments [facility],non-owned Affiliates and Associated Physician Practices is amultiple site organization consisting of ambulatory clinics and hospital sitesin [place], [place], [place] and [place]. This disclosure is being madepursuant to the Care Everywhere program and may not contain all information available regarding this patient. Last updated 18.[facility] Allergies Active Allergy Reactions Criticality Noted Date [...] fluticasone propionate (FLONASE) 50 MCG/ACT nasal spray [place] 2 sprays into each nostril once daily [...] Comments Blood Pressure 120/82 08/21/2021 2:11 PM FASHION EDITOR Pulse 80 08/21/2021 2:11 PM FASHION EDITOR Temperature 36.6 ??C (97.9 ??F) 08/21/2021 2:11 PM CS T Respiratory Rate 18 08/21/2021 2:11 PM FASHION EDITOR Oxygen Saturation 99% 08/21/2021 2:11 PM FASHION EDITOR Inhaled Oxygen Concentration - - Weight 90.7 kg (200 lb) 08/21/2021 2:11 PM FASHION EDITOR Height 160 cm (5' 3 ) 08/21/2021 2:11 PM FASHION EDITOR Body Mass Index 35.43 08/21/2021 2:11 PM FASHION EDITOR Plan of Treatment Not on file Care Teams Hot Worker Relationship Specialty Start Date End Date Johnna Tinajero MD [address] [address] PCP - General Pediatrics 09/23/17
--- OUTSIDE RECORDS SUMMARY | 2024-08-28 02:52 | XMS_ITS | Encounter Summary ---
Author Organization [facility] Address [address] [place] [address] Care Team Providers Care Cow Tester Name Role Phone Johnna Tinajero MD Primary Care Provider + Reason for Visit * Reason Onset Date Comments Follow-up 09/25/2017 Encounter Details Date Type Department Care Team (Late st Contact Info) Description 09/25/2017 Telephone [facility] [address] [phone] Raj[place] Follow-up Social History Tobacco Use [...] on filedocumented in this encounter Care Teams Cow Tester Relationship Specialty Start Date End Date Johnna Tinajero MD [address] [address] PCP - General Pediatrics 09/23/17 documented as of this encounter
--- OUTSIDE RECORDS SUMMARY | 2024-08-28 02:52 | XMS_ITS | Encounter Summary ---
Author Organization [facility] Address [address] [place] [address] Care Team Providers Care Impregnating Tank Operator Name Role Phone Johnna Tinajero MD Primary Care Provider + Reason for Visit * Reason Comments Ear Pain Encounter Details Date Type Department Care Team (Late st Contact Info) Description 10/05/2017 5:20 PM COFFEE FARMER Office Visit [facility] [address] [phone] Provider, [facility] [place] Dysfunction of both eustachian tubes (Primary Dx) [...] Comments Blood Pressure 122/84 10/05/2017 5:39 PM COFFEE FARMER Pulse 109 10/05/2017 5:25 PM COFFEE FARMER Temperature 37.3 ??C (99.1 ??F) 10/05/2017 5:25 PM CS T Respiratory Rate 16 10/05/2017 5:25 PM COFFEE FARMER Oxygen Saturation 99% 10/05/2017 5:25 PM COFFEE FARMER Inhaled Oxygen Concentration - - Weight 107 kg (236 lb) 10/05/2017 5:25 PM COFFEE FARMER Height 160 cm (5' 3 ) 10/05/2017 5:25 PM COFFEE FARMER Body Mass Index 41.81 10/05/2017 5:25 PM COFFEE FARMER Body Mass Index Percentile 99.81% 10/05/2017 5:2 5 PM COFFEE FARMER Growth Chart: CDC (Girls, 2- 20 Years) documented in this encounter Patient Instructions * Patient Instructions* JohnsCarrie teran LOCATION MAN-PERLITE GRINDER - 10/05/2017 5:46 PM COFFEE FARMER Eustachian Tube Dysfunction WHAT YOU NEED TO [...] refuse treatment. The above information is an engineering aide only. It is not intended as medical advice for individual conditions or treatments. Talk to your doctor, nurse or pharmacist before following any medical regimen to see if it is safe and effective for you. ?? 2017 [employer] Information is for End User's use only and may not be sold, redistributed or otherwise used for commercial purposes. All illustrations and images included in CareNotes?? are the copyrighted property of [employer] or [employer]. Tinnitus WHAT YOU NEED TO KNOW: What [...] refuse treatment. The above information is an engineering aide only. It is not intended as medical advice for individual conditions or treatments. Talk to your doctor, nurse or pharmacist before following any medical regimen to see if it is safe and effective for you. ?? 2017 [employer] Information is for End User's use only and may not be sold, redistributed or otherwise used for commercial purposes. All illustrations and images included in CareNotes?? are the copyrighted property of [employer] or [employer]. EE FARMER documented in this encounter Progress Notes * [...] encounter (Office Visit) with Provider, Karen [place] Medication Sig ??? fluticasone propionate (FLONASE) 50 MCG/ACT nasal spray [place] 2 sprays into each nostril once daily [...] or worsen at anytime please f/u with Drawing In Hand Continue to follow up with Johnna Tinajero MD as directed. After Visit Summary reviewed with patient. The caregiver today indicates understanding of these issues and agrees with the plan. Patient discharged to Home .HOMER Lee 10/05/2017 5:51 PM Orders Placed This Encounter ??? STREP A SCREEN - POINT OF CARE (AMB) STL ??? fluticasone propionate (FLONASE) 50 MCG/ACT nasal spray Sig: [place] 2 sprays into each nostril once daily Dispense: 1 bottles Refill: 0 Recent Results (from the past 24 hour(s)) STREP A SCREEN - POINT OF CARE (AMB) STL Collection Time: 10/05/17 12:00 AM Result Value Ref Range Strep A Rapid Negative Negative Strep A INTERNAL CONTROL Present Lot Number [id number] Expiration Date 05 07 2019 EE FARMER documented in this encounter Plan of Treatment [...] Strep A Internal Control Present Lot # [id number] Expiration Date 05 07 2019 Throat ENTIRE THROAT (SURFACE REGION OF NECK) / Unknown 10/05/2017 Carrie [facility] - POINT OF CA RE ORDERABLES documented in this encounter Visit Diagnoses Diagnosis Dysfunction of both eustachian tubes- Primary Dysfunction of Eustachian tube documented in this encounter Care Teams Impregnating Tank Operator Relationship Specialty Start Date End Date Johnna Tinajero MD [address] [address] PCP - General Pediatrics 09/23/17 documented as of this encounter
--- OUTSIDE RECORDS SUMMARY | 2024-08-28 02:52 | XMS_ITS | Continuity of Care Document ---
Author Organization [facility] Address [address] [place] [address] [address] [place] [address] Phone Care Team Providers Care Waitstaff Name Role Phone Violet MS, OTR/L, CHT, [...] Copied on Encounter [facility], [address] [address], [place], [place], [id number], [place] tel:[phone] [place] No Information 6-201 6 Violet Madyson. [address], [address], [place], [address], [place]. tel:[phone] Referring Provider: Shashank Geeta, [address], [place], [address]. tel:[phone] [facility], [address] [place], [place] [address], [place], [place], [id number], tel:[phone] [place] No Information Dec-3 0-201 5 Hauschild Madyson. [address] [place] [address], [address], [place], [address], [place]. tel:[phone] Referring Provider: Shashank Connor, [address], [place], [address]. tel:[phone] [address], [place], [place], [address], tel:[phone] [place] No Information Dec-2 2-201 5 Hauschild Madyson. [address] [place] [address], [address], [place], [place], [facility] [place], [place]. tel:[phone] Referring Provider: Shashank Connor, [address], [place], [address]. tel:[phone] [facility], [address] [place], [place] [address], [place], [place], [id number], [place] tel:[phone] [place] No Information Dec-2 1-201 5 Hauschild Madyson. [address] [place] [address], [address], [place], [address], [place]. tel:[phone] Referring Provider: Shashank Connor, [address], [place], [address]. tel:[phone] [address] [address] [facility], [id number], [place] tel:[phone] [place] No Information Dec-1 8-201 5 Hauschild Madyson. [address] [place] [address], [address], [place], [address], [place]. tel:[phone] Referring Provider: Shashank Connor, [address], [place], [address]. tel:[phone] [facility], [facility] [address], [place], [place], [address], [place] tel:[phone] [place] No Information Dec-1 6-201 5 Hauschild Madyson. [address] [place] [address], [address], [place], [address], [place]. tel:[phone] Referring Provider: Jo Omal[address], [place], [address]. tel:[phone] [facility], [address] [facility] [address], [place], [place], [id number], [place] tel:[phone] [place] No Information Dec-0 9-201 5 Hauschild Madyson. [address] [place] [address], [address], [place], [address], [place]. tel:[phone] Referring Provider: Jo Omal[address], [place], [address]. tel:[phone] [facility], [facility] [address], [place], [place], [id number], [place] tel:[phone] [place] No Information Dec-0 4-201 5 Hauschild Madyson. [address] [place] [address], [address], [place], [address], [place]. tel:[phone] Referring Provider: Toby O[address], [place], [address]. tel:[phone] [facility], [address] [facility] [address], [place], [place], [id number], [place] tel:[phone] [place] No Information Dec-0 2-201 5 Hauschild Madyson. [address] [place] [address], [address], [place], [address], [place]. tel:[phone] Referring Provider: Jo Omal[address], [place], [address]. tel:[phone] [facility], [address], [place], [place], [id number], [place] tel:[phone] [place] No Information Nov-2 5-201 5 Hauschild Madyson. [address] [place] [address], [address], [place], [address], [place]. tel:[phone] Referring Provider: Shashank Cononr, [address], [place], [address]. tel:[phone] [facility], [address] [facility] [address], [place], [place], [id number], [place] tel:[phone] [place] No Information Nov-2 3-201 5 Hauschild Madyson. [address] [place] [address], [address], [place], [address], [place]. tel:[phone] Referring Provider: Shashank Connor, [address], [place], [address]. tel:[phone] [facility], [facility], [place], [place], [id number], [place] tel:[phone] [place] No Information Nov-2 0-201 5 Hauschild Madyson. [address] [place] [address], [address], [place], [address], [place]. tel:[phone] Referring Provider: Shashank Connor, [address], [place], [address]. tel:[phone] [facility], [address], [place], [place], [id number], [place] tel:[phone] [place] No Information Nov-1 8-201 5 Hauschild Madyson. [address] [place] [address], [address], [place], [address], [place]. tel:[phone] Referring Provider: Shashank Connor, [address], [place], [address]. tel:[phone] [facility] [address] [facility] [address], [place], [place], [address], [place] tel:[phone] [place] No Information Nov- 3-201 5 Hauschild Madyson. [address], [address], [place], [address], [place]. tel:[phone] Referring Provider: Shashank Connor, [address], [place], [address]. tel:[phone] [facility] [address] [facility] [address], [place], [id number], [place] tel:[phone] [place] No Information Jul-08 31- 5 Hauschild Madyson. [address] [place] [address], [address], [place], [address], [place]. tel:[phone] Referring Provider: Shashank Connor, [address], [place], [address]. tel:[phone] [facility], [address] [facility] [address], [place], [place], [id number], [place] tel:[phone] [place] Unspecified sprain of right wrist, initial encounter Nov-0 5-201 5 Hauscjaimeld Madyson. [address] [place] [address], [address], [place], [address], [place]. tel:[phone] Referring Provider: Shashank Connor, [address], [place], [address]. tel:[phone] [facility], [address] [facility] [address], [place], [place], [id number], [place] tel:[phone] [place] Stiffness of right wrist, not elsewhere classifiedPain in right wristEffusion, right wristMuscle weakness (generalized)Ot her specified sprain of right wrist, subsequent encounter Nov-0 4-201 5 Violet Coughlin. [address], [address], [place], [address], [place]. tel:[phone] Referring Provider: Shashank Connor, [address], [place], [address]. tel:[phone] Family History Family Member Type Diagnosis Age At Onset No Information Payers Payer name Insurance type Covered libertarian ID Authorcamilo mustafa(s) [facility] [id number] Social History Type Description Quantity Date Captured [...]
--- OUTSIDE RECORDS SUMMARY | 2024-08-28 02:52 | XMS_ITS | Encounter Summary ---
Author Organization [facility] Address [address] [place] [address] Care Team Providers Care Flow Coordinator Name Role Phone Johnna Tinajero MD [...] on filedocumented in this encounter Care Teams Flow Coordinator Relationship Specialty Start Date End Date Johnna Tinajero MD [address] [address] PCP - General Pediatrics 09/23/17 documented as of this encounter
--- OUTSIDE RECORDS SUMMARY | 2024-08-28 02:53 | XMS_ITS | Continuity of Care Document ---
Author Organization [facility] Address [address] [facility] [place] [address] Phone Care Team Providers Care Stacker And Sorter Operator Name Role Phone Lees TALENT ASSOCIATE-C TALENT ASSOCIATE-C, Halle Unavailable Un available Allergies, Adverse Reactions, [...] STREP A ASSAY W/OPTIC HETEROPHILE ANTIBODIES - Crowley Spot OFFICE/OUTPATIENT VISIT, EST Decadron Dexamethasone sodium phos Per 1 Mg Inj Kenalog Triamcinolone acetonide Inj Per 10mg THER/PROPH/DIAG INJ, SC/IM OFFICE/OUTPATIENT VISIT, NEW Results Test Name Date and Time Measure Units Reference Range Abnormal Flag Status Comments Panel Description: Mononucleosis Test, Qual Scre en Final [place] 18:28:00 Pos Final Panel Description: Strep A Screen Final Strep 17:50:00 Neg Final Advance Directives Directive Yes / No Effective Date File Name No Information Encounters Encounter Description Practice Location Reason(s) For Visit Diagnoses Date Provider Providers Copied on Encounter OFFICE/OUTPAT IENT VISIT, [facility], [address] [facility], [place], [place], [id number], tel:[phone] [facility] sore throat (chief complaint) Acute pharyngitis, unspecified 2 Yoana Neri. [address] [place] [address], [address], [place]. tel:[phone] Referring Provider: Halel Manriquez, [address] [place] [address], [address]. tel:[phone] OFFICE/OUTPAT IENT VISIT, [facility], [address] [facility], [place], [place], [address], [place] tel:[phone] [facility] Earache (chief complaint) Acute suppr otitis media w/o spon rupt ear drum, bilateral 1 Christopher Zarco. [address] [place], [place], [address], [place]. tel:[phone] Referring Provider: Carolee White, [address] [place], [address] . tel:[phone] Family History Family Member Type Diagnosis Age At Onset No Information Payers Payer name Insurance type Covered republican ID Dolores mustafa(s) [facility] [id number] Social History Type Description Quantity Date Captured [...] Additional Infor jfion 1. Rapid strep-Negat ive2. [place]-Positive3. Kenalog and Decadron IM4. Soft foods5. Tylenol or Ibuprofen PRN6. MvIfluids, rest, avoid contact sports, heavy lifting, running , jumping, etc for 6 weeks Related to Acute pharyngitis, unspecified Omnicef 300mg #20 Si cap po BID NR called to [facility] if no resolution Related to Acute suppr otitis media w/o spon rupt ear drum, bilateral Assessments Type Assessment Date assessment Acute pharyngitis, unspecified A impression Patient presents to Urgent Care today with c/o ST for 3 days. Ears and TM clear. Throat erythema, tonsils +4 exudate. Uvula mid line, no rash or strawberry tongue. LCTAB. HRRR Mental Status Date Cognitive Assessment Orientation - [place] ed to time, place, person, situation. Patient Care Teams Name Effective Dates (start - stop) Status Members No Information
--- OUTSIDE RECORDS SUMMARY | 2024-08-28 02:53 | XMS_ITS | Clinical Summary ---
Author Organization [facility] Address [address] [place] [address] Care Team Providers Care Infantry Assaultman Name Role Phone Johnna Tinajero MD Unavailable [phone] Luciano Edwards MD Unavailable [phone] Arian Adam MD Unavailable Lanny Johnson Primary [...] (01/16/2021): Added automatically from request for surgery [id number] Vomiting without nausea 08/22/2020 Overview (08/22/2020): Added automatically from request for surgery [id number] Vasovagal syncope 10/25/2019 Assessment & Plan (11/06/2019 [...] consult Assessment & Plan (11/05/2019 2:21 PM CURED MEATS SUPERVISOR): Nina presented following several syncopal episodes lasting [...] teaching Assessment & Plan (11/04/2019 5:26 PM CURED MEATS SUPERVISOR): Nina presented following several syncopal episodes lasting [...] recommendations Assessment & Plan (11/03/2019 5:10 AM CURED MEATS SUPERVISOR): Several syncopal episodes lasting seconds to minutes. [...] Clinic Assessment & Plan (11/05/2019 2:18 PM CURED MEATS SUPERVISOR): GI was consulted as she was scheduled [...] Clinic Assessment & Plan (11/04/2019 5:27 PM CURED MEATS SUPERVISOR): GI was consulted as she was scheduled [...] Clinic Assessment & Plan (09/19/2019 11:51 AM CURED MEATS SUPERVISOR): 2 month history of worsening nausea with [...] contrast Assessment & Plan (09/18/2019 12:24 PM CURED MEATS SUPERVISOR): 2 month history of worsening nausea with [...] clear. Assessment & Plan (09/17/2019 3:13 PM CURED MEATS SUPERVISOR): 2 month history of worsening nausea with [...] week Assessment & Plan (09/16/2019 11:48 AM CURED MEATS SUPERVISOR): 2 month history of worsening nausea with [...] week Assessment & Plan (09/15/2019 3:01 PM CURED MEATS SUPERVISOR): 2 month history of worsening nausea with [...] prn Assessment & Plan (09/14/2019 1:01 PM CURED MEATS SUPERVISOR): 2 month history of worsening nausea with [...] UDS Assessment & Plan (09/13/2019 7:51 PM CURED MEATS SUPERVISOR): 2 month history of worsening nausea with [...] 07/20/2019 Assessment & Plan (09/19/2019 10:53 AM CURED MEATS SUPERVISOR): Right lower quadrant abdominal pain began in [...] OCP Assessment & Plan (09/18/2019 12:17 PM CURED MEATS SUPERVISOR): Right lower quadrant abdominal pain began in [...] OCP Assessment & Plan (09/17/2019 3:13 PM CURED MEATS SUPERVISOR): Right lower quadrant abdominal pain began in [...] OCP Assessment & Plan (09/16/2019 11:42 AM CURED MEATS SUPERVISOR): Right lower quadrant abdominal pain began in [...] OCP Assessment & Plan (09/15/2019 2:52 PM CURED MEATS SUPERVISOR): Right lower quadrant abdominal pain began in [...] OCP Assessment & Plan (09/14/2019 1:00 PM CURED MEATS SUPERVISOR): Right lower quadrant abdominal pain began in [...] OCP Assessment & Plan (09/13/2019 7:46 PM CURED MEATS SUPERVISOR): Right lower quadrant abdominal pain began in [...] OCP Assessment & Plan (07/23/2019 12:28 PM CURED MEATS SUPERVISOR): 19 year old girl with PMH obesity, [...] -encourage oral intake - regular diet, POAL -MEDICAL SURGERY NURSE following -Scheduled tylenol and toradol q6hr for pain -start OCP with discharge and f/u with gynecology -f/u DHES-A, Testosterone results Assessment & Plan (07/22/2019 9:02 AM CURED MEATS SUPERVISOR): 19 year old girl with PMH obesity, [...] amount of free fluid in posterior cul-de-sac -MEDICAL SURGERY NURSE following -Schd tylenol and toradol q6hr for pain - f/u FSH, LH, prolactin, DHEAS, free and total testerone; if wnl can start OCP Assessment & Plan (07/21/2019 12:42 PM CURED MEATS SUPERVISOR): 19 year old girl with PMH obesity, [...] cul-de-sac Assessment & Plan (07/20/2019 1:18 AM CURED MEATS SUPERVISOR): 19 year old girl with PMH obesity, [...] 07/20/2019 Assessment & Plan (07/23/2019 12:26 PM CURED MEATS SUPERVISOR): History of numerous hospitalizations due to asthma exacerbations in childhood, with several day long stay in PICU 5 or 6 years ago (no intubations). Asthma presently well-controlled on regimen of qHS breo inhaler, with no hospitalizations or exacerbations in last several years. - continue qHS breo - albuterol PRN q4hrs Assessment & Plan (07/22/2019 9:02 AM CURED MEATS SUPERVISOR): History of numerous hospitalizations due to asthma exacerbations in childhood, with several day long stay in PICU 5 or 6 years ago (no intubations). Asthma presently well-controlled on regimen of qHS breo inhaler, with no hospitalizations or exacerbations in last several years. - continue qHS breo - albuterol PRN q4hrs Assessment & Plan (07/21/2019 7:29 AM CURED MEATS SUPERVISOR): History of numerous hospitalizations due to asthma exacerbations in childhood, with several day long stay in PICU 5 or 6 years ago (no intubations). Asthma presently well-controlled on regimen of qHS breo inhaler, with no hospitalizations or exacerbations in last several years. - continue qHS breo - albuterol PRN q4hrs Assessment & Plan (07/20/2019 1:12 AM CURED MEATS SUPERVISOR): History of numerous hospitalizations due to asthma exacerbations in childhood, with several day long stay in PICU 5 or 6 years ago (no intubations). Asthma presently well-controlled on regimen of qHS breo inhaler, with no hospitalizations or exacerbations in last several years. - continue qHS breo - albuterol PRN q4hrs Anxiety 07/20/2019 Assessment & Plan (07/23/2019 12:26 PM CURED MEATS SUPERVISOR): Followed by therapist, patient states that therapy [...] qHS Assessment & Plan (07/22/2019 7:17 AM CURED MEATS SUPERVISOR): Followed by therapist, patient states that therapy [...] qHS Assessment & Plan (07/21/2019 7:29 AM CURED MEATS SUPERVISOR): Followed by therapist, patient states that therapy [...] qHS Assessment & Plan (07/20/2019 1:14 AM CURED MEATS SUPERVISOR): Followed by therapist, patient states that therapy [...] Neurology. Assessment & Plan (11/05/2019 2:27 PM CURED MEATS SUPERVISOR): Patient with daily headaches for the past [...] 10/01/2021 Assessment & Plan (10/26/2020 2:12 PM CURED MEATS SUPERVISOR): Nina is an 20yo with past medical [...] NSAIDs Assessment & Plan (10/25/2020 1:21 PM CURED MEATS SUPERVISOR): Nina is an 20yo with past medical [...] NSAIDs Assessment & Plan (10/24/2020 6:08 AM CURED MEATS SUPERVISOR): Nina is an 20yo with past medical [...] 10/25/2020 Assessment & Plan (10/25/2020 10:34 AM CURED MEATS SUPERVISOR): Hematemesis occurred in setting of intractable vomiting for several day duration. 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 - IV Protonix q 12 hours - Avoid NSAIDs Assessment & Plan (10/24/2020 2:10 AM CURED MEATS SUPERVISOR): Hematemesis occurred in setting of intractable vomiting [...] 10/01/2021 Assessment & Plan (10/26/2020 10:30 AM CURED MEATS SUPERVISOR): Symptoms of dehydration include decreased urination and delayed capillary refill (identified on exam in ED). She completed a normal saline bolus in the ED. Once she is able to tolerate adequate oral hydration, IV fluids will be discontinued. - Continue mIV fluids Assessment & Plan (10/25/2020 10:35 AM CURED MEATS SUPERVISOR): Symptoms of dehydration include decreased urination and delayed capillary refill (identified on exam in ED). She completed a normal saline bolus in the ED. Once she is able to tolerate adequate oral hydration, IV fluids will be discontinued. - Continue mIV fluids Assessment & Plan (10/24/2020 2:11 AM CURED MEATS SUPERVISOR): Symptoms of dehydration include decreased urination and delayed capillary refill (identified on exam in ED). She completed a normal saline bolus in the ED. - Continue mIV fluids Mild malnutrition 09/15/2019 08/22/2020 Assessment & Plan (09/19/2019 10:53 AM CURED MEATS SUPERVISOR): 15 pound weight loss over several months due to chronic nausea and vomiting with resultant poor appetite. - Manage nausea symptoms - nutrition consult Assessment & Plan (09/18/2019 12:24 PM CURED MEATS SUPERVISOR): 15 pound weight loss over several months due to chronic nausea and vomiting with resultant poor appetite. - Manage nausea symptoms - nutrition consult Assessment & Plan (09/17/2019 3:13 PM CURED MEATS SUPERVISOR): 15 pound weight loss over several months due to chronic nausea and vomiting with resultant poor appetite. - Manage nausea symptoms - nutrition consult - Consider cyproheptadine Assessment & Plan (09/16/2019 11:43 AM CURED MEATS SUPERVISOR): 15 pound weight loss over several months due to chronic nausea and vomiting with resultant poor appetite. - Manage nausea symptoms - nutrition consult - Consider cyproheptadine Assessment & Plan (09/15/2019 3:00 PM CURED MEATS SUPERVISOR): 15 pound weight loss over several months [...] sinus rhythm with sinus arrhythmia with short RI Anxiety 07/20/2019 Biliary dyskinesia Migraine headache Mononucleosis [...] often do you attend chur ch or congregation services? More than 4 times per year 01/13/2023 Do you belong to any clubs o r organizations such as restoration groups, unions, fraternal or athletic groups, or [...] place to sleep or slept in a alf (including now)? No 01/13/2023 Personal Safety Answer Date Recorded Have you ever been in or are you currently in a harmful physical or emotional relationship or is someone making you feel afraid or unsafe? Denies 01/12/2023 Comments No Sex and Gender Information Value Date Recorded Sex Assigned at Not on file Legal Sex 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 CURED MEATS SUPERVISOR Gender Identity Not on file Sexual [...] Meningococcal B Vaccine Completed 09/02/2019, 08/17 Insurance [employer] OPEN ACCESS [employer] OPEN ACCESS [employer] [place] [facility] OPEN ACCESS [facility] Advance Directives For more information, please contact: [phone] Documents on File Type Date Recorded Patient X Ray Developer Expl anation ADVANCE DIRECTIVE 02/01/2021 9:08 AM [...] 9:45 PM 07/23/2019 7:58 PM Care Teams Infantry Assaultman Relationship Specialty [place] [address] [place] [address] PCP - General Physician Director Pharmacovigilance 01/27/23 Johnna Tinajero MD [address] [address] 07/19/19 Luciano Edwards MD [address] [id number] Consulting Physician General Surgery 02/01/21 [place] [address] [place] [address] Consulting Physician Gastroenterology 01/15/23
--- OUTSIDE RECORDS SUMMARY | 2024-08-28 02:54 | XMS_ITS | Encounter Summary ---
Author Organization [facility] Address [address] [place] [address] [address] [place] [address] Phone Care Team Providers Care Bilingual Counter Sales Retail Name Role Phone Johnna Tinajero MD Primary Care Provider + Johnna Tinajero MD Unavailable [phone] Encounter Details Date Type Department Care Team (Late st Contact Info) Description 01/22/2021 Telephone [facility] [place] [address] [place] [address] Johnna Tinajero MD [address] [place] [address] Social History Tobacco Use Types Packs/Day [...] on file 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
--- OUTSIDE RECORDS SUMMARY | 2024-08-28 02:54 | XMS_ITS | Encounter Summary ---
Author Organization [facility] Address [address] [place] [address] Phone Care Team Providers Care Executive Pastry Chef Name Role Phone Johnna Tinaejro MD Primary Care Provider + Johnna Tinajero MD Unavailable [phone] Luciano Edwards MD Unavailable [phone] Encounter Details Date Type Department Care Team (Late st Contact Info) Description 12/15/[address] 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 Left VM to call back CM or PCP clinic if any questions or concerns. Sent MyChart as well. Faith Novoa RN BSN Playground Supervisor, Faculty Practice Plan [facility] * Kenia Vidal RN - 12/16/2022 1:15 PM CDT Attempted Transition of Care ED f/u call to pt, Nina. Patient was [facility] in the ED at [facility] [place] 12[place]/22for RLQ abd pain. Initial call is answered but then disconnects. Called back & LMOVM for pt to return call to CM. documented in this encounter Plan of Treatment Not on file documented as of this encounter Visit Diagnoses Not on filedocumented in this encounter Care Teams Executive Pastry Chef Relationship Specialty Start Date End Date Johnna Tinajero MD [address] [id number] PCP - General Pediatrics 07/19/19 01/26/23 Johnna Tinajero MD [address] [address] 07/19/19 Luciano Edwards MD [address] [address] Consulting Physician General Surgery 02/01/21 documented as of this encounter
--- OUTSIDE RECORDS SUMMARY | 2024-08-28 02:54 | XMS_ITS | Encounter Summary ---
Author Organization [facility] Address [address] [place] [address] Care Team Providers Care Cras Name Role Phone Johnna Tinajero MD Primary Care Provider + Johnna Tinajero MD Unavailable [phone] Reason for Referral * Diagnostic Imaging (Routine) - Closed Specialty Diagnoses / Procedures Referred By Contac t Referred To Contact Diagnoses Upper abdominal pain, unspecified Procedures [place] [address] [place] [address] Phone: tel: fax: [facility] [address] [place] [address] Referral ID Status Reason Start Date Expiration Date Visits Re quested Visits Authorized [id number] Closed 12/27/2020 01/25/2022 2 2 Reason for Visit * Diagnostic Imaging (Routine) - Closed Specialty Diagnoses / Procedures Referred By Contac t Referred To Contact Diagnoses Upper abdominal pain, unspecified Procedures NM [place] [address] [place] [address] Phone: tel: fax: [address] [address] Referral ID Status Reason Start Date Expiration Date Visits Re quested Visits Authorized [id number] Closed 12/27/2020 01/25/2022 2 2 Encounter Details Date Type Department Care Team (Latest Contact Info) Description 01/04/2021 7:22 AM CDT - 01/04/2021 11:59 PM CDT Hospital Encounter [facility] - Imaging [address] [place] [id number] [place] [address] [place] [address] Upper abdominal pain, unspecified Discharge [...] on file 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 Arian Adam MD [facility] Final Result documented in this encounter [...] 01/04/2021 documented in this encounter Care Teams Cras Relationship Specialty Start Date End Date Johnna Tinajero MD [address] [address] PCP - General Pediatrics 07/19/19 01/26/23 Johnna Tinajero MD [address] [address] 07/19/19 documented as of this encounter
--- OUTSIDE RECORDS SUMMARY | 2024-08-28 02:54 | XMS_ITS | Encounter Summary ---
Author Organization [facility] Healthcare Address [address] [place] [address] Care Team Providers Care Heater Planer Operator Name Role Phone Johnna Tinajero MD Primary Care Provider + Johnna Tinajero MD Unavailable [phone] Luciano Edwards MD Unavailable [phone] Reason for Visit * Reason Comments Abdominal Pain Vomiting Nausea * Auth/Cert (Routine) Specialty Diagnoses / Procedures Referred By [place] camp Referred To Contact Diagnoses RLQ abdominal pain Intractable abdominal pain Procedures na Referral ID Status Reason Start Date Expiration Date Visits Re quested Visits Authorized [id number] 1 1 Encounter Details Date Type Department Care Team (Late st Contact Info) Description 01/14/2023 8:00 AM CDT - 01/14/2023 8:45 AM CDT Surgery [facility] [place] [id number] Romie Pradhan, DO [address] [place] [address] CAPSULE ENDOSCOPY Surgery Details Date/Time Status Location OR Service Patient Class Case Class Case Type Trauma Case? 01/14/2023 8:00 AM Posted [facility] ENDOSCOPY GI BEDSIDE Gastroenterology Inpatient Urgent - [...] often do you attend chur ch or hindu services? More than 4 times per year 01/13/2023 Do you belong to any clubs o r organizations such as mandaeism groups, unions, fraternal or athletic groups, or [...] place to sleep or slept in a half-way (including now)? No 01/13/2023 Personal Safety Answer Date Recorded Have you ever been in or are you currently in a harmful physical or emotional relationship or is someone making you feel afraid or unsafe? 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 Gender Identity Not on file Sexual [...] Patient Age - 22 yrs Patient - [id number] [facility] - [id number] Document Creation Date: 01/15/2023 Admitting Provider, : Alberto Johnson MD Discharge Provider, : Shawn Blum DO Primary Care Physician at Discharge: Johnna Tinajero MD [phone] Treatment Team: Consulting Physician: Romie Pradhan DO Admission Date: 01/12/2023 Discharge Date/time: 01/15/2023 Admission Location: [facility] LOS - LOS: 2 days DETAILS [...] mg/dL 10 9 CREATININE mg/dL 0.75 0.79 [id number] mL/min/1.73 m2 117 110 GLUCOSE mg/dL 86 [...] Adult Diet Regular Diet effective now Question: ([facility]) Diet type Answer: Regular 01/14/231908 Allergies: Dog [...] 2 puffs, inhalation, Every 6 hours PRN (certified respiratory therapist) cetirizine 10 mg tablet Commonly known as: ZyrTEC 10 mg, oral, Daily doxepin 25 mg capsule Commonly known as: SINEquan 50 mg, oral, Nightly fluticasone furoate-vilanteroL 100-25 mcg/dose diskus inhaler Commonly known as: BREO ELLIPTA 1 puff, inhalation, Daily (certified respiratory therapist), Rinse mouth with water after use. Do [...] Your Medications These medications were sent to [facility] [address] [place] [address] [address] [facility] [address] [facility] [address] prochlorperazine 5 mg tablet Outpatient Follow-Up: Contact Information for Follow-ups Tyra Adam MD Specialty: Gastroenterology, Internal Medicine Relationship: Consulting Physician Barbara DIXONSebastian [place] [phone] Next Steps: Follow up Instructions: Call provider for an appointment to follow up within 1 week Questions: Instructions for follow-up (appointment date and time): Call provider for an appointment to follow up within 1 week To provider: TYRA ADAM Please schedule an appointment with the following provider(s): Tyra Adam MD Barbara RASCONFALGUNI [place] [phone] Call provider for an appointment to follow [...] Cell Culture-based MDCK, Preservative Free, Antibiotic Free, Mowakunwqtuyg73/22/2020 Influenza, Quadrivalent, Split, Preservative Free, Intramuscular 06/09/2016, [...] PM CDT I agree with findings/assessment/plan in PA/EGG BREAKING MACHINE OPERATOR note with the following caveats: RLQ pain [...] or family members viewing this note through [employer] access: This note was written as a [...] sinus rhythm with sinus arrhythmia with short WA Anxiety 07/20/2019 Asthma Biliary dyskinesia Migraine headache [...] obvious between folds of skin Muscle Loss [place] - Temporalis Muscle: Can see/feel well-defined [...] sinus rhythm with sinus arrhythmia with short WA Anxiety 07/20/2019 Asthma Biliary dyskinesia Migraine headache [...] Specialists in Gastroenterology Consult: Contact info: - [phone]; After hours: [phone] Referring doctor: PCP: Johnna Tinajero MD Reason [...] sinus rhythm with sinus arrhythmia with short WA Anxiety 07/20/2019 Asthma Biliary dyskinesia Migraine headache [...] sinus rhythm with sinus arrhythmia with short WA Anxiety 07/20/2019 Asthma Biliary dyskinesia Migraine headache [...] Behavior normal. Thought Content: Thought content normal. [facility] Medical Decision Making Differential: Crohns, Meckels Diverticulum, [...] with negative UA. Given Bentyl, Zofran and Viola Labs: Decision-making details documented in ED Course. [...] bedside. 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 She ambulates without assistive device. Impression: RLQ abdominal pain Plan Includes: GI consulted Primary Source of Transportation: Does the patient need discharge transport arranged?: No (parents will transport her home) Has discharge transport been arranged?: Yes (01/13/23103) Health Insurance Coverage: [employer] OPEN ACCESS- Father's insurance Prescription Coverage: yes Pharmacy: [facility] [address] [place] [address] [address] [facility] [address] [facility] [address] Primary Care Provider: Johnna Tinajero MD Prior to Admission: Primary Caregiver: Self Who does the patient or legal guardian want to receive education instruction and discharge plans for after care assistance?: No Caregiver Available Support System: Parent Support system contact info (name, phone, availablity): Vicki Coyne, mother and primary surrogate decision maker [phone] Home Care Services: No Durable Medical Equipment: [...] a week How often do you attend mandaeism or hindu services?: More than 4 times per year Do you belong to any clubs or organizations such as mandaeism groups, unions, fraternal or athletic groups, or [...] a Mental Health provider: Dr Madyson Bliss [phone] Patient's Identified Problem/Goal Problem: Ensure acute medical [...] Collaboration with patient, MD, direct care nurse, Insole Taper, and other members of the health care team to assure needed interventions completed. 2. Return patient to optimal level of self-care post discharge. 3. Change Coordinator will follow for Discharge Planning - interventions [...] Wendy Rosales M.D. us Tyra Adam MD [facility] PROCEDURES Final Result * CT Abdomen and [...] Result * eGFR (01/13/2023 4:33 AM CDT) [facility] eGFR 117 mL/min/1. 73 m2 [facility] Comment: Interpretive Data Reference Interval Normal ?>/= [...] Johnson MD LAB BLOOD ORDERABLES Final Result [facility] [address] Department of Laboratories [place], [place] [id number] * Differential, auto (01/13/2023 4:33 AM CDT) Neutrophil abs 2.5 1.7 - 6.5 K/cumm [facility] Imm gran abs 0.0 0.0 - 0.1 K/cumm [facility] Lymphocyte abs 3.1 0.8 - 3.3 K/cumm [facility] Monocyte abs 0.6 0.2 - 0.8 K/cumm [facility] Eosinophil abs 0.3 0.0 - 0.5 K/cumm [facility] Basophil abs 0.1 0.0 - 0.1 K/cumm [facility] Neutrophil pct 38.2 % [facility] Comment: Interpretive Data Percent cell count reference ranges are not reported, since discordance with absolute values may lead to misinterpretation of CBC data. Current Interpretive Data was last revised on 2017. Imm gran pct 0.3 % [facility] Comment: Interpretive Data Percent cell count reference ranges are not reported, since discordance with absolute values may lead to misinterpretation of CBC data. Current Interpretive Data was last revised on 2017. Lymphocyte pct 47.0 % [facility] Comment: Interpretive Data Percent cell count reference ranges are not reported, since discordance with absolute values may lead to misinterpretation of CBC data. Current Interpretive Data was last revised on 2017. Monocyte pct 8.9 % [facility] Comment: Interpretive Data Percent cell count reference ranges are not reported, since discordance with absolute values may lead to misinterpretation of CBC data. Current Interpretive Data was last revised on 2017. Eosinophil pct 4.5 % [facility] Comment: Interpretive Data Percent cell count reference ranges are not reported, since discordance with absolute values may lead to misinterpretation of CBC data. Current Interpretive Data was last revised on 2017. Basophil pct 1.1 % [facility] Comment: Interpretive Data Percent cell count reference ranges are not reported, since discordance with absolute values may lead to misinterpretation of CBC data. Current Interpretive Data was last revised on 2017. Blood 01/13/2023 4:33 AM CDT 01/13/2023 4:56 AM CDT us Alberto Johnson MD LAB BLOOD ORDERABLES Final Result [facility] [address] [place] [address] * (ABNORMAL) CBC with auto differential (01/13/2023 4:33 AM CDT) WBC 6.5 3.8 - 9.9 K/cumm [facility] Hgb 11.9 11.9 - 15.5 g/dL [facility] Hct 37.3 35.6 - 45.5 % [facility] Plt 299 150 - 400 K/cumm [facility] MPV 10.1 9.1 - 12.3 fL [facility] RBC 4.09 3.90 - 5.20 M/cumm [facility] MCV 91.2 81.3 - 96.4 fL [facility] MCH 29.1 27.1 - 33.3 pg [facility] MCHC 31.9(L) 32.3 - 35.7 g/dL [facility] RDW CV 12.8 11.1 - 14.9 % [facility] RDW SD 42.3 35.7 - 48.1 fL [facility] NRBC abs 0.00 0.00 - 0.01 K/cumm [facility] Blood 01/13/2023 4:33 AM CDT 01/13/2023 4:56 AM CDT Alberto Johnson MD LAB BLOOD ORDERABLES Final Result Performing Organization Address City/[facility]/ZIP Co de Phone Number [facility] [address] [place], [place] [id number] * Magnesium (01/13/2023 4:33 AM CDT) [facility] Magnesium 1.6 1.4 - 2.5 mg/dL [facility] Blood 01/13/2023 4:33 AM CDT 01/13/2023 4:56 AM CDT Alberto Johnson MD LAB BLOOD ORDERABLES Final Result [facility] [address] Department [place] [address] * (ABNORMAL) Comprehensive metabolic panel (01/13/2023 4:33 AM CDT) [facility] Sodium 140 135 - 145 mmol/L [facility] Potassium, pl 3.6 3.3 - 4.9 mmol/L [facility] Chloride 110 97 - 110 mmol/L [facility] CO2 21(L) 22 - 32 mmol/L [facility] Anion gap 9 2 - 15 mmol/L [facility] BUN 10 8 - 25 mg/dL [facility] Creatinine 0.75 0.60 - 1.10 mg/dL [facility] Glucose 86 70 - 199 mg/dL [facility] Comment: Interpretive Data Fasting glucose [...] 2022. Calcium 8.7 8.5 - 10.3 mg/dL [facility] Bilirubin, total 0.2 0.1 - 1.2 mg/dL [facility] Protein, pl 6.1(L) 6.5 - 8.5 g/dL [facility] Albumin 3.5 3.5 - 5.0 g/dL [facility] Alk phos 41 40 - 130 Units/L [facility] ALT 18 7 - 45 Units/L [facility] AST 20 10 - 45 Units/L [facility] Blood 01/13/2023 4:33 AM CDT 01/13/2023 4:56 AM CDT us Alberto Johnson MD LAB BLOOD ORDERABLES Final Result [facility] [address] Department [place] [address] * POCT hCG, urine (01/12/2023 11:04 PM CDT) HCG, ur, POC Negative Lot Number [id number] QC Backgroud Clear Acceptable QC Control Line Acceptable Urine 01/12/2023 11:0 4 PM CDT Yariel Dennis MD POINT OF CARE TEST ORDERABL ES Final Result * (ABNORMAL) Urinalysis reflex to microscopic and culture Urine (01/12/2023 11:03 PM CDT) Color, ur Yellow Yellow [facility] Clarity, ur Clear Clear [facility] Specific gravity, ur 1.039(H) 1.003 - 1.030 [facility] pH, urine 6.0 [facility] Protein, ur ql Trace Negative [facility] Glucose, ur ql Negative Negative [facility] Ketones, ur Negative Negative [facility] Bilirubin, ur Negative Negative [facility] Blood, ur Negative Negative [facility] Urobilinogen, ur <2.0 <2.0 mg/dL [facility] Nitrite, ur Negative Negative [facility] Leukocyte esterase, ur Negative Negative [facility] UA reflex comment Reflex conditions for microscopic UA and culture not met. [facility] Urine 01/12/2023 11:0 3 PM CDT 01/12/2023 11:09 PM CDT Narrative [facility] - 01/12/2023 11:11 PM CDT ?? Urine pH is affected by diet, medications, systemic acid-base disturbances, and renal tubular function. ??pH may affect urinary stone formation. ??For example, urine pH below 6.0 may help reduce the tendency for calcium phosphate stones and pH greater than 6.0 may reduce the tendency for uric acid stone formation. Source: [facility] [employer]. Last revised 09-10-2017 Yariel Dennis MD LAB MICROBIOLOGY - GENERAL ORDERABLES Final Result [facility] [address] Department [place] [address] * eGFR (01/12/2023 10:47 PM CDT) eGFR 110 mL/min/1. 73 m2 [facility] Comment: Interpretive Data Reference Interval [...] Dennis MD LAB BLOOD ORDERABLES Final Result [facility] [address] [place] [address] * Differential, auto (01/12/2023 10:47 PM CDT) Neutrophil abs 3.0 1.7 - 6.5 K/cumm [facility] Imm gran abs 0.0 0.0 - 0.1 K/cumm [facility] Lymphocyte abs 2.9 0.8 - 3.3 K/cumm [facility] Monocyte abs 0.6 0.2 - 0.8 K/cumm [facility] Eosinophil abs 0.4 0.0 - 0.5 K/cumm [facility] Basophil abs 0.1 0.0 - 0.1 K/cumm [facility] Neutrophil pct 42.6 % [facility] Comment: Interpretive Data Percent cell count reference ranges are not reported, since discordance with absolute values may lead to misinterpretation of CBC data. Current Interpretive Data was last revised on 2017. Imm gran pct 0.3 % [facility] Comment: Interpretive Data Percent cell count reference ranges are not reported, since discordance with absolute values may lead to misinterpretation of CBC data. Current Interpretive Data was last revised on 2017. Lymphocyte pct 41.8 % [facility] Comment: Interpretive Data Percent cell count reference ranges are not reported, since discordance with absolute values may lead to misinterpretation of CBC data. Current Interpretive Data was last revised on 2017. Monocyte pct 9.2 % [facility] Comment: Interpretive Data Percent cell count reference ranges are not reported, since discordance with absolute values may lead to misinterpretation of CBC data. Current Interpretive Data was last revised on 2017. Eosinophil pct 5.1 % [facility] Comment: Interpretive Data Percent cell count reference ranges are not reported, since discordance with absolute values may lead to misinterpretation of CBC data. Current Interpretive Data was last revised on 2017. Basophil pct 1.0 % [facility] Comment: Interpretive Data Percent cell count reference ranges are not reported, since discordance with absolute values may lead to misinterpretation of CBC data. Current Interpretive Data was last revised on 2017. Blood 01/12/2023 10:4 7 PM CDT 01/12/2023 10:52 PM CDT us Yariel Dennis MD LAB BLOOD ORDERABLES Final Result [facility] [address] Department [place] [address] * Lipase (01/12/2023 10:47 PM CDT) Lipase 23 10 - 99 Units/L [facility] Blood (Blood, Venous) 01/12/2023 10:47 PM CDT 01/12/2023 10:52 PM CDT us Yariel Dennis MD LAB BLOOD ORDERABLES Final Result [facility] [address] Department [place] [address] * (ABNORMAL) Comprehensive metabolic panel (01/12/2023 10:47 PM CDT) Sodium 140 135 - 145 mmol/L [facility] Potassium, pl 4.3 3.3 - 4.9 mmol/L [facility] Chloride 109 97 - 110 mmol/L [facility] CO2 21(L) 22 - 32 mmol/L [facility] Anion gap 10 2 - 15 mmol/L [facility] BUN 9 8 - 25 mg/dL [facility] Creatinine 0.79 0.60 - 1.10 mg/dL [facility] Glucose 98 70 - 199 mg/dL [facility] Comment: Interpretive Data Fasting glucose [...] 2022. Calcium 9.3 8.5 - 10.3 mg/dL [facility] Bilirubin, total <0.2 0.1 - 1.2 mg/dL [facility] Protein, pl 6.9 6.5 - 8.5 g/dL [facility] Albumin 3.9 3.5 - 5.0 g/dL [facility] Alk phos 48 40 - 130 Units/L [facility] ALT 23 7 - 45 Units/L [facility] AST 26 10 - 45 Units/L [facility] Comment:Slightly Hemolyzed S pecimen Blood 01/12/2023 10:4 7 PM CDT 01/12/2023 10:52 PM CDT Yariel Dennis MD LAB BLOOD ORDERABLES Final Result Performing Organization Address [facility] Co de Phone Number [facility] [address] [address] * CBC with auto differential (01/12/2023 10:47 PM CDT) Pathologist [facility] WBC 6.9 3.8 - 9.9 K/cumm [facility] Hgb 13.0 11.9 - 15.5 g/dL [facility] Hct 40.0 35.6 - 45.5 % [facility] Plt 322 150 - 400 K/cumm [facility] MPV 10.3 9.1 - 12.3 fL [facility] RBC 4.36 3.90 - 5.20 M/cumm [facility] MCV 91.7 81.3 - 96.4 fL [facility] MCH 29.8 27.1 - 33.3 pg [facility] MCHC 32.5 32.3 - 35.7 g/dL [facility] RDW CV 12.7 11.1 - 14.9 % [facility] RDW SD 43.0 35.7 - 48.1 fL [facility] NRBC abs 0.00 0.00 - 0.01 K/cumm [facility] Blood (Blood, Venous) 01/12/2023 10:47 PM CDT 01/12/2023 10:52 PM CDT Yariel Dennis MD LAB BLOOD ORDERABLES Final Result Performing Organization Address City/[facility]/ZIP Co de Phone Number [facility] [address] Department [place] [address] documented in this encounter Visit Diagnoses Diagnosis [...] puff 2 puff, inhalation, 2 times daily (certified respiratory therapist), First dose on Thu01/13/23 at 0800, I /authorizing provider attest that the patient meets the approved [facility] Use Criteria: Yes Given 01/15/2023 11:59 AM [...] puff 2 puff, inhalation, 2 times daily (certified respiratory therapist), First dose on Thu01/13/23 at 0800, I /authorizing provider attest that the patient meets the approved [facility] Use Criteria: Yes 0757 (Given - Provider: Shital Anthony, PRODUCT MARKETING EXECUTIVE)191 (Given - Provider: Sandy Fabian, MATTHEW) 0856 (Not Given - Provider: Juanis Torres, MATTHEW - Reason: Patient/family refused - Comment: just did endoscopy)1955 (Given - Provider: Claire Sol, PRODUCT MARKETING EXECUTIVE) 1159 (Given - Provider: Sarah Bueno, MATTHEW) [...] 2 puff, inhalation, Every 6 hours PRN (certified respiratory therapist), wheezing, shortness of breath, Starting on Thu01/13/23 [...] 01/13/2023 documented in this encounter Care Teams Heater Planer Operator Relationship Specialty Start Date End Date Johnna Tinajero MD [address] [address] PCP - General Pediatrics 07/19/19 01/26/23 Johnna Tinajero MD [address] [address] 07/19/19 Luciano Edwards MD [address] [address] Consulting Physician General Surgery 02/01/21 documented as of this encounter
--- OUTSIDE RECORDS SUMMARY | 2024-08-28 02:54 | XMS_ITS | Encounter Summary ---
Author Organization [facility] Address [address] [place] [address] Phone Care Team Providers Care Ground Helper Street Railway Name Role Phone Johnna Tinajero MD Primary Care Provider + Johnna Tinajero MD Unavailable [phone] Encounter Details Date Type Department Care Team (Late st Contact Info) Description 11/27/[address] [facility] Pediatric Gastroenter[facility] 2nd [place] [address] [place] [address] Carlton Garza MD PhD 1 [facility] [address] [place] [address] Social History Tobacco Use Types [...] on file 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
--- OUTSIDE RECORDS SUMMARY | 2024-08-28 02:54 | XMS_ITS | Encounter Summary ---
Author Organization [facility] Address [address] [place] [phone] Phone Care Team Providers Care Manager Erp Name Role Phone Johnna Tinajero MD Primary Care Provider + Johnna Tinajero MD Unavailable [phone] Luciano Edwards MD Unavailable [phone] Encounter Details Date Type Department Care Team (Late st Contact Info) Description 08/01/2021 Telephone [facility] [address] [facility] [address] [place] [address] Johnna Tinajero MD [address] [place] [address] [address] [place] [address] Social History Tobacco Use Types [...] on file 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 Mom drove to [place] last night to see how Nina was [...] understanding and agrees with plan of care. ROPOLOGIST * Telephone Encounter - Davina Prater RN - 08/01/2021 1:03 PM ANTHROPOLOGIST PC to mom, reviewed PCP response below. Mom states Nina is not . Verbalizes understanding.Will discuss recommendation with Nina, if symptoms continue will encourage her to be evaluated again. ----- Message from Johnna Tinajero MD sent at 08/01/2021 12:41 PM ANTHROPOLOGIST ----- Contact: Symptoms could be related to the morning after pill, anxiety about possibly getting , or could be due to (is she?) Or could be early illness symptoms or something else. Agree with your recommendations. ----- Message ----- From: Davina Prater RN Sent: 08/01/2021 12:19 PM ANTHROPOLOGIST To: Johnna Tinajero MD PC from mom. States patient went to ED yesterday 07/31 (In [place], [place] where she attends [facility]) due to facial flushing, felt lightheaded [...] mom and we did not see/evaluate her. ROPOLOGIST ROPOLOGIST documented in this encounter Plan of Treatment Not on file documented as of this encounter Visit Diagnoses Not on filedocumented in this encounter Care Teams Manager Erp Relationship Specialty Start Date End Date Johnna Tinajero MD [address] [address] PCP - General Pediatrics 07/19/19 01/26/23 Johnna Tinajero MD [address] [address] 07/19/19 Luciano Edwards MD [address] [address] Consulting Physician General Surgery 02/01/21 documented as of this encounter
--- OUTSIDE RECORDS SUMMARY | 2024-08-28 02:54 | XMS_ITS | Encounter Summary ---
Author Organization [facility] Address [address] [place] [address] [address] [place] [address] Phone Care Team Providers Care Gardener Name Role Phone Johnna Tinajero MD Primary Care Provider + Johnna Tinajero MD Unavailable [phone] Luciano Edwards MD Unavailable [phone] Reason for Visit * Reason Comments Well Child 21 year old Encounter Details Date Type Department Care Team (Late st Contact Info) Description 10/01/2021 11:30 AM BANANA CARRIER Office Visit [facility] [address] [facility] [address] [place] [address] Johnna Tinajero MD [address] [place] [address] [address] [place] [address] Well adult exam (Primary Dx); [...] on file Legal Sex 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 BANANA CARRIER Gender Identity Not on file Sexual Orientation Not on file documented as of this encounter Last Filed Vital Signs Vital Sign Reading Time Taken Comments Blood Pressure 118/80 10/01/2021 11:46 AM BANANA CARRIER Pulse - - Temperature - - Respiratory Rate - - Oxygen Saturation - - Inhaled Oxygen Concentration - - Weight 90.8 kg (200 lb 3 oz) 10/01/2021 11:46 AM BANANA CARRIER Height 161 cm (5' 3.39 ) 10/01/2021 11:46 AM BANANA CARRIER Body Mass Index 35.03 10/01/2021 11:46 AM BANANA CARRIER documented in this encounter Progress Notes * [...] 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 Regular menses, last 4 days. Not needing any allergy medication. Taking Lexapro 20 mg daily, says it is working well for anxiety. Her PHQ 9 score today is 3 and herscared score is 17 Seeing a therapist in [place], right now once every two weeks. When goes to [place] for four months won't see anyone. Passing [...] 1.95) based on CDC (Girls, 2-20 Years) anuvyk-qhe-czi data using vitals from 10/01/2021. 36 %ile (Z= -0.36) based on CDC (Girls, 2-20 Years) Ocwekpp-rmv-khy data based on Stature recorded on 10/01/2021. [...] or sooner as needed. Johnna Tinajero MD NA CARRIER documented in this encounter Plan of Treatment [...] 10/01/2021 documented in this encounter Care Teams Gardener Relationship Specialty Start Date End Date Johnna Tinajero MD [address] [address] PCP - General Pediatrics 07/19/19 01/26/23 Johnna Tinajero MD [address] [address] 07/19/19 Luciano Edwards MD [address] [address] Consulting Physician General Surgery 02/01/21 documented as of this encounter
--- OUTSIDE RECORDS SUMMARY | 2024-08-28 02:54 | XMS_ITS | Encounter Summary ---
Author Organization [facility] Address [address] [place] [address] Phone Care Team Providers Care Heater Helper [place]ge Name Role Phone Johnna Tinajero MD Primary Care Provider + Johnna Tinajero MD Unavailable [phone] Luciano Edwards MD Unavailable [phone] Arian Adam MD Unavailable [phone] Encounter Details Date Type Department Care Team (Late st Contact Info) Description 01/16/2023 Transitional Care Outreach [facility] [address] [place] [id number] Kenia Vidal RN Social History Tobacco [...] week 01/13/2023 How often do you attend [facility] or [facility] services? More than 4 times per year 01/13/2023 Do you belong to any clubs o r organizations such as latter day groups, unions, fraternal or athletic groups, or [...] place to sleep or slept in a detention (including now)? No 01/13/2023 Personal Safety Answer Date Recorded Have you ever been in or are you currently in a harmful physical or emotional relationship or is someone making you feel afraid or unsafe? 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 Gender Identity Not on file Sexual Orientation Not on file documented as of this encounter Plan of Treatment Not on file documented as of this encounter Visit Diagnoses Not on filedocumented in this encounter Care Teams Heater Helper Forge Relationship Specialty Start Date End Date Johnna Tinajero MD [address] [address] PCP - General Pediatrics 07/19/19 01/26/23 Johnna Tinajero MD [address] [address] 07/19/19 Luciano Edwards MD [address] [address] Consulting Physician General Surgery 02/01/21 [place] [address] [place] [address] Consulting Physician Gastroenterology 01/15/23 documented as of this encounter
--- OUTSIDE RECORDS SUMMARY | 2024-08-28 02:54 | XMS_ITS | Encounter Summary ---
Author Organization [facility] Healthcare Address [address] [place] [address] Care Team Providers Care Drafter Commercial Name Role Phone Johnna Tinajero MD Primary Care Provider + Johnna Tinajero MD Unavailable [phone] Luciano Edwards MD Unavailable [phone] Tyra Adam MD Unavailable [phone] Reason for Visit * Reason Comments Abdominal Pain Vomiting Nausea * Auth/Cert (Routine) Specialty Diagnoses / Procedures Referred By Contac t Referred To Contact Diagnoses RLQ abdominal pain Intractable abdominal pain Procedures na Referral ID Status Reason Start Date Expiration Date Visits Re quested Visits Authorized [id number] 1 1 Encounter Details Date Type Department Care Team (Latest Contact Info) Description 01/12/2023 10:36 PM CDT - 01/15/2023 6:09 PM CDT Hospital Encounter [facility] [address] [place] [address] Yariel Dennis MD [address] [address] Alberto Johnson MD [address] [place] [address] Shawn Blum DO [address] [place] [address] RLQ abdominal pain (Primary Dx); Intractable abdominal [...] How often do you attend chur or religion services? More than 4 times per year 01/13/2023 Do you belong to any clubs o r organizations such as latter-day groups, unions, fraternal or athletic groups, or [...] place to sleep or slept in a fpc (including now)? No 01/13/2023 Personal Safety Answer Date Recorded Have you ever been in or are you currently in a harmful physical or emotional relationship or is someone making you feel afraid or unsafe? 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 Gender Identity Not on file Sexual Orientation [...] Patient Age - 22 yrs Patient - [id number] [facility] - [id number] Document Creation Date: 01/15/2023 Admitting Provider, : Alberto Johnson MD Discharge Provider, : Shawn Blum DO Primary Care Physician at Discharge: Johnna Tinajero MD [phone] Treatment Team: Consulting Physician: Romie Pradhan DO [...] mg/dL 10 9 CREATININE mg/dL 0.75 0.79 [id number] mL/min/1.73 m2 117 110 GLUCOSE mg/dL 86 [...] Adult Diet Regular Diet effective now Question: ([facility]) Diet type Answer: Regular 01/14/231908 Allergies: [...] 2 puffs, inhalation, Every 6 hours PRN (respiratory therapy manager) cetirizine 10 mg tablet Commonly known as: ZyrTEC 10 mg, oral, Daily doxepin 25 mg capsule Commonly known as: SINEquan 50 mg, oral, Nightly fluticasone furoate-vilanteroL 100-25 mcg/dose diskus inhaler Commonly known as: BREO ELLIPTA 1 puff, inhalation, Daily (respiratory therapy manager), Rinse mouth with water after use. Do [...] Your Medications These medications were sent to [facility] [place], [place] - [address] [facility] [address] [facility] [address] prochlorperazine 5 mg tablet Outpatient Follow-Up: Contact Information for Follow-ups Tyra Adam MD Specialty: Gastroenterology, Internal Medicine Relationship: Consulting Physician [address] [facility] [address] Next Steps: Follow up Instructions: Call provider for an appointment to follow up within 1 week Questions: Instructions for follow-up (appointment date and time): Call provider for an appointment to follow up within 1 week To provider: TYRA ADAM Please schedule an appointment with the following provider(s): [place] [address] [facility] [address] Call provider for an appointment to [...] Cell Culture-based MDCK, Preservative Free, Antibiotic Free, Qfeijgeixjfbd95/22/2020 Influenza, Quadrivalent, Split, Preservative Free, Intramuscular 06/09/2016, [...] mg/dL 0.2 <0.2 @ [facility] Result Date: 01/13/2023 Negative Electronically signed by: Wendy Rosales M.D. CT Abdomen and Pelvis Enterography W Contrast Result Date: 01/13/2023 1. Status post cholecystectomy. 2. Slight bladder wall thickening, likely reflecting incomplete distention. Cystitis could be considered in the appropriate clinical setting. 3. Tiny fat-containing ventral hernia just to the right of the umbilicus, stable. 4. Otherwise, unremarkable examination as d escribed. The bowel is normal in appearance. Electronically [...] PM CDT I agree with findings/assessment/plan in PA/MEDICAL EQUIPMENT REPAIRER note with the following caveats: RLQ pain [...] or family members viewing this note through [employer] access: This note was written as a [...] rhythm with sinus arrhythmia with short OK Anxiety 07/20/2019 Asthma Biliary dyskinesia Migraine headache [...] obvious between folds of skin Muscle Loss [place] - Temporalis Muscle: Can see/feel well-defined [...] rhythm with sinus arrhythmia with short OK Anxiety 07/20/2019 Asthma Biliary dyskinesia Migraine headache [...] Specialists in Gastroenterology Consult: Contact info: - [phone]; After hours: [phone] Referring doctor: PCP: Johnna Tinajero MD Reason [...] rhythm with sinus arrhythmia with short OK Anxiety 07/20/2019 Asthma Biliary dyskinesia Migraine headache [...] rhythm with sinus arrhythmia with short OK Anxiety 07/20/2019 Asthma Biliary dyskinesia Migraine headache [...] Behavior normal. Thought Content: Thought content normal. [facility] Medical Decision Making Differential: Crohns, [...] with negative UA. Given Bentyl, Zofran and [place] Labs: Decision-making details documented in ED Course. [...] [facility] 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 She ambulates without assistive device. Impression: RLQ abdominal pain Plan Includes: GI consulted Primary Source of Transportation: Does the patient need discharge transport arranged?: No (parents will transport her home) Has discharge transport been arranged?: Yes (01/13/23103) Health Insurance Coverage: [employer] OPEN ACCESS- Father's insurance Prescription Coverage: yes Pharmacy: [facility] [address] [place], [place] [address] [address] [address] Primary Care Provider: Johnna Tinajero MD Prior to Admission: Primary Caregiver: Self Who does the patient or legal guardian want to receive education instruction and discharge plans for after care assistance?: No Caregiver Available Support System: Parent Support system contact info (name, phone, availablity): Vicki Coyne, mother and primary surrogate decision maker [phone] Home Care Services: No Durable Medical Equipment: [...] a week How often do you attend latter-day or religion services?: More than 4 times per year Do you belong to any clubs or organizations such as latter-day groups, unions, fraternal or athletic groups, or [...] a Mental Health provider: Dr Madyson Bliss [phone] Patient's Identified Problem/Goal Problem: Ensure acute medical [...] Collaboration with patient, MD, direct care nurse, Neuroscientist, and other members of the health care team to assure needed interventions completed. 2. Return patient to optimal level of self-care post discharge. 3. Apprentice Cook will follow for Discharge Planning - interventions [...] AM CDT) eGFR 117 mL/min/1. 73 m2 [facility] Comment: Interpretive Data Reference Interval [...] Johnson MD LAB BLOOD ORDERABLES Final Result [facility] [address] Department of Laboratories [place], [place] [id number] * Differential, auto (01/13/2023 4:33 AM CDT) [facility] Neutrophil abs 2.5 1.7 - 6.5 K/cumm [facility] Imm gran abs 0.0 0.0 - 0.1 K/cumm [facility] Lymphocyte abs 3.1 0.8 - 3.3 K/cumm [facility] Monocyte abs 0.6 0.2 - 0.8 K/cumm [facility] Eosinophil abs 0.3 0.0 - 0.5 K/cumm [facility] Basophil abs 0.1 0.0 - 0.1 K/cumm [facility] Neutrophil pct 38.2 % [facility] Comment: Interpretive Data Percent cell count reference ranges are not reported, since discordance with absolute values may lead to misinterpretation of CBC data. Current Interpretive Data was last revised on 2017. Imm gran pct 0.3 % [facility] Comment: Interpretive Data Percent cell count reference ranges are not reported, since discordance with absolute values may lead to misinterpretation of CBC data. Current Interpretive Data was last revised on 2017. Lymphocyte pct 47.0 % [facility] Comment: Interpretive Data Percent cell count reference ranges are not reported, since discordance with absolute values may lead to misinterpretation of CBC data. Current Interpretive Data was last revised on 2017. Monocyte pct 8.9 % [facility] Comment: Interpretive Data Percent cell count reference ranges are not reported, since discordance with absolute values may lead to misinterpretation of CBC data. Current Interpretive Data was last revised on 2017. Eosinophil pct 4.5 % [facility] Comment: Interpretive Data Percent cell count reference ranges are not reported, since discordance with absolute values may lead to misinterpretation of CBC data. Current Interpretive Data was last revised on 2017. Basophil pct 1.1 % [facility] Comment: Interpretive Data Percent cell count reference ranges are not reported, since discordance with absolute values may lead to misinterpretation of CBC data. Current Interpretive Data was last revised on 2017. Blood 01/13/2023 4:33 AM CDT 01/13/2023 4:56 AM CDT us Alberto Johnson MD LAB BLOOD ORDERABLES Final Result [facility] [address] [place] [address] * (ABNORMAL) CBC with auto differential (01/13/2023 4:33 AM CDT) [facility] WBC 6.5 3.8 - 9.9 K/cumm [facility] Hgb 11.9 11.9 - 15.5 g/dL [facility] Hct 37.3 35.6 - 45.5 % [facility] Plt 299 150 - 400 K/cumm [facility] MPV 10.1 9.1 - 12.3 fL [facility] RBC 4.09 3.90 - 5.20 M/cumm [facility] MCV 91.2 81.3 - 96.4 fL [facility] MCH 29.1 27.1 - 33.3 pg [facility] MCHC 31.9(L) 32.3 - 35.7 g/dL [facility] RDW CV 12.8 11.1 - 14.9 % [facility] RDW SD 42.3 35.7 - 48.1 fL [facility] NRBC abs 0.00 0.00 - 0.01 K/cumm [facility] Blood 01/13/2023 4:33 AM CDT 01/13/2023 4:56 AM CDT Alberto Johnson MD LAB BLOOD ORDERABLES Final Result Performing Organization Address City/[facility]/ZIP Co de Phone Number [facility] [address] [employer] [place], [place] [id number] * Magnesium (01/13/2023 4:33 AM CDT) [facility] Magnesium 1.6 1.4 - 2.5 mg/dL [facility] Blood 01/13/2023 4:33 AM CDT 01/13/2023 4:56 AM CDT Alberto Johnson MD LAB BLOOD ORDERABLES Final Result [facility] [address] [facility] [place] [address] * (ABNORMAL) Comprehensive metabolic panel (01/13/2023 4:33 AM CDT) [facility] Sodium 140 135 - 145 mmol/L [facility] Potassium, pl 3.6 3.3 - 4.9 mmol/L [facility] Chloride 110 97 - 110 mmol/L [facility] CO2 21(L) 22 - 32 mmol/L [facility] Anion gap 9 2 - 15 mmol/L [facility] BUN 10 8 - 25 mg/dL [facility] Creatinine 0.75 0.60 - 1.10 mg/dL [facility] Glucose 86 70 - 199 mg/dL [facility] Comment: Interpretive Data Fasting glucose [...] 2022. Calcium 8.7 8.5 - 10.3 mg/dL [facility] Bilirubin, total 0.2 0.1 - 1.2 mg/dL [facility] Protein, pl 6.1(L) 6.5 - 8.5 g/dL [facility] Albumin 3.5 3.5 - 5.0 g/dL [facility] Alk phos 41 40 - 130 Units/L [facility] ALT 18 7 - 45 Units/L [facility] AST 20 10 - 45 Units/L [facility] Blood 01/13/2023 4:33 AM CDT 01/13/2023 4:56 AM CDT us Alberto Johnson MD LAB BLOOD ORDERABLES Final Result [facility] [address] Department [place] [address] * POCT hCG, urine (01/12/2023 11:04 PM CDT) [facility] HCG, ur, POC Negative Lot Number [id number] QC Backgroud Clear Acceptable QC Control Line Acceptable Urine 01/12/2023 11:0 4 PM CDT us Yariel Dennis MD POINT OF CARE TEST ORDERABL ES Final Result * (ABNORMAL) Urinalysis reflex to microscopic and culture Urine (01/12/2023 11:03 PM CDT) [facility] Color, ur Yellow Yellow [facility] Clarity, ur Clear Clear [facility] Specific gravity, ur 1.039(H) 1.003 - 1.030 [facility] pH, urine 6.0 [facility] Protein, ur ql Trace Negative [facility] Glucose, ur ql Negative Negative [facility] Ketones, ur Negative Negative [facility] Bilirubin, ur Negative Negative [facility] Blood, ur Negative Negative [facility] Urobilinogen, ur <2.0 <2.0 mg/dL [facility] Nitrite, ur Negative Negative [facility] Leukocyte esterase, ur Negative Negative [facility] UA reflex comment Reflex conditions for microscopic UA and culture not met. [facility] Urine 01/12/2023 11:0 3 PM CDT 01/12/2023 11:09 PM CDT Narrative [facility] - 01/12/2023 11:11 PM CDT ?? Urine pH is affected by diet, medications, systemic acid-base disturbances, and renal tubular function. ??pH may affect urinary stone formation. ??For example, urine pH below 6.0 may help reduce the tendency for calcium phosphate stones and pH greater than 6.0 may reduce the tendency for uric acid stone formation. Source: [facility] [employer]. Last revised 09-10-2017 us Yariel Dennis MD LAB MICROBIOLOGY - GENERAL ORDERABLES Final Result [facility] [address] [place] [address] * eGFR (01/12/2023 10:47 PM CDT) [facility] eGFR 110 mL/min/1. 73 m2 [facility] Comment: Interpretive Data Reference Interval [...] Dennis MD LAB BLOOD ORDERABLES Final Result [facility] [address] [place] [address] * Differential, auto (01/12/2023 10:47 PM CDT) [facility] Neutrophil abs 3.0 1.7 - 6.5 K/cumm [facility] Imm gran abs 0.0 0.0 - 0.1 K/cumm [facility] Lymphocyte abs 2.9 0.8 - 3.3 K/cumm [facility] Monocyte abs 0.6 0.2 - 0.8 K/cumm [facility] Eosinophil abs 0.4 0.0 - 0.5 K/cumm [facility] Basophil abs 0.1 0.0 - 0.1 K/cumm [facility] Neutrophil pct 42.6 % [facility] Comment: Interpretive Data Percent cell count reference ranges are not reported, since discordance with absolute values may lead to misinterpretation of CBC data. Current Interpretive Data was last revised on 2017. Imm gran pct 0.3 % [facility] Comment: Interpretive Data Percent cell count reference ranges are not reported, since discordance with absolute values may lead to misinterpretation of CBC data. Current Interpretive Data was last revised on 2017. Lymphocyte pct 41.8 % [facility] Comment: Interpretive Data Percent cell count reference ranges are not reported, since discordance with absolute values may lead to misinterpretation of CBC data. Current Interpretive Data was last revised on 2017. Monocyte pct 9.2 % [facility] Comment: Interpretive Data Percent cell count reference ranges are not reported, since discordance with absolute values may lead to misinterpretation of CBC data. Current Interpretive Data was last revised on 2017. Eosinophil pct 5.1 % [facility] Comment: Interpretive Data Percent cell count reference ranges are not reported, since discordance with absolute values may lead to misinterpretation of CBC data. Current Interpretive Data was last revised on 2017. Basophil pct 1.0 % [facility] Comment: Interpretive Data Percent cell count reference ranges are not reported, since discordance with absolute values may lead to misinterpretation of CBC data. Current Interpretive Data was last revised on 2017. Blood 01/12/2023 10:4 7 PM CDT 01/12/2023 10:52 PM CDT us Yariel Dennis MD LAB BLOOD ORDERABLES Final Result [facility] [address] [place] [address] * Lipase (01/12/2023 10:47 PM CDT) Lipase 23 10 - 99 Units/L [facility] Blood (Blood, Venous) 01/12/2023 10:47 PM CDT 01/12/2023 10:52 PM CDT us Yariel Dennis MD LAB BLOOD ORDERABLES Final Result [facility] [address] [place] [address] * (ABNORMAL) Comprehensive metabolic panel (01/12/2023 10:47 PM CDT) Pathologist [facility] Sodium 140 135 - 145 mmol/L [facility] Potassium, pl 4.3 3.3 - 4.9 mmol/L [facility] Chloride 109 97 - 110 mmol/L [facility] CO2 21(L) 22 - 32 mmol/L [facility] Anion gap 10 2 - 15 mmol/L [facility] BUN 9 8 - 25 mg/dL [facility] Creatinine 0.79 0.60 - 1.10 mg/dL [facility] Glucose 98 70 - 199 mg/dL [facility] Comment: Interpretive Data Fasting glucose [...] 2022. Calcium 9.3 8.5 - 10.3 mg/dL [facility] Bilirubin, total <0.2 0.1 - 1.2 mg/dL [facility] Protein, pl 6.9 6.5 - 8.5 g/dL [facility] Albumin 3.9 3.5 - 5.0 g/dL [facility] Alk phos 48 40 - 130 Units/L [facility] ALT 23 7 - 45 Units/L [facility] AST 26 10 - 45 Units/L [facility] Comment:Slightly Hemolyzed S pecimen Blood 01/12/2023 10:4 7 PM CDT 01/12/2023 10:52 PM CDT Yariel Dennis MD LAB BLOOD ORDERABLES Final Result Performing Organization Address [facility]/ZIP Co de Phone Number [facility] [address] [place] [address] * CBC with auto differential (01/12/2023 10:47 PM CDT) WBC 6.9 3.8 - 9.9 K/cumm [facility] Hgb 13.0 11.9 - 15.5 g/dL [facility] Hct 40.0 35.6 - 45.5 % [facility] Plt 322 150 - 400 K/cumm [facility] MPV 10.3 9.1 - 12.3 fL [facility] RBC 4.36 3.90 - 5.20 M/cumm [facility] MCV 91.7 81.3 - 96.4 fL [facility] MCH 29.8 27.1 - 33.3 pg [facility] MCHC 32.5 32.3 - 35.7 g/dL [facility] RDW CV 12.7 11.1 - 14.9 % [facility] RDW SD 43.0 35.7 - 48.1 fL [facility] NRBC abs 0.00 0.00 - 0.01 K/cumm [facility] Blood (Blood, Venous) 01/12/2023 10:47 PM CDT 01/12/2023 10:52 PM CDT Yariel Dennis MD LAB BLOOD ORDERABLES Final Result Performing Organization Address [facility]/ZIP Co de Phone Number [facility] [address] Department [employer] [place], [place] [id number] documented in this encounter Visit Diagnoses Diagnosis [...] puff 2 puff, inhalation, 2 times daily (respiratory therapy manager), First dose on Thu01/13/23 at 0800, I /authorizing provider attest that the patient meets the approved [facility] Use Criteria: Yes Given 01/15/2023 [...] puff 2 puff, inhalation, 2 times daily (respiratory therapy manager), First dose on Thu01/13/23 at 0800, I /authorizing provider attest that the patient meets the approved [facility] Use Criteria: Yes 0757 (Given - Provider: Shital Anthony, SLOT MACHINE MECHANIC)1915 (Given - Provider: Sandy Fabian, MATTHEW) 0856 (Not Given - Provider: Juanis Torres, MATTHEW - Reason: Patient/family refused - Comment: just did endoscopy)1955 (Given - Provider: Claire Sol, SLOT MACHINE MECHANIC) 1159 (Given - Provider: Sarah Bueno, MATTHEW) [...] 2 puff, inhalation, Every 6 hours PRN (respiratory therapy manager), wheezing, shortness of breath, Starting on Thu01/13/23 [...] 01/13/2023 documented in this encounter Care Teams Drafter Commercial Relationship Specialty Start Date End Date Johnna Tinajero MD [address] [address] PCP - General Pediatrics 07/19/19 01/26/23 Johnna Tinajero MD [address] [address] 07/19/19 Luciano Edwards MD [address] [address] Consulting Physician General Surgery 02/01/21 [place] [address] [place] [address] Consulting Physician Gastroenterology 01/15/23 documented as of this encounter
--- OUTSIDE RECORDS SUMMARY | 2024-08-28 02:54 | XMS_ITS | Encounter Summary ---
Author Organization [facility] Address [address] [place] [address] Phone Care Team Providers Care Machine Filler Shredder Name Role Phone Johnna Tinajero MD Primary Care Provider + Johnna Tinajero MD Unavailable [phone] Encounter Details Date Type Department Care Team (Late st Contact Info) Description 11/05/2020 Orders Only [facility] Pediatric Gastroenterology [facility] Medical Office Building [address] [place] [address] Madyson Uriostegui, CORPORATE TRAFFIC MANAGER 1 [facility] [address] [place] [address] Social History Tobacco Use Types [...] on file 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
--- OUTSIDE RECORDS SUMMARY | 2024-08-28 02:54 | XMS_ITS | Encounter Summary ---
Author Organization [facility] Healthcare Address [address] [place] [address] Care Team Providers Care Nurse Staff Name Role Phone Johnna Tinajero MD Primary Care Provider + Johnna Tinajero MD Unavailable [phone] Luciano Edwards MD Unavailable [phone] Encounter Details Date Type Department Care Team (Latest Contact Info) Description 02/01/2021 8:53 AM CDT - 02/01/2021 3:27 PM CDT Hospital Encounter [facility] Operating Room [address] [place] [address] Luciano Edwards MD [address] [facility] [address] [place] [address] Dyskinesia of gallbladder (Primary Dx) [...] on file 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 General Surgery [...] directed for severe pain. You may use [id number] ibuprofen 200-600 mg every 6-8 hours as [...] sinus rhythm with sinus arrhythmia with short [place] ??? Anxiety 07/20/2019 ??? Asthma ??? Nausea [...] 4 mg tablet 06/13/20 -- Madyson Uriostegui MOLDER HELPER Take 1 tablet (4 mg total) by [...] CDT SURGERY OPERATIVE NOTE: Luciano Edwards MD, [facility] [address] [place] [phone] Exchange: Cellular: Patient Identifying Information: Patient Name: [...] Cholecystectomy ANESTHESIA: General Anesthesiologist: Jeff Garcia MD HYBRID TESTER: Elpidio Faith CRNA IMPLANTS: Nothing was implanted during the procedure PREOPERATIVE ANTIBIOTICS: 2g Ancef IV, within one hour of the incision. VTE PROPHYLAXIS: Sequential Compression Devices were administered as per Caprini thromboprophylaxis recommendation form review. INDICATION FOR PROCEDURE: Biliary Dyskinesia OPERATIVE FINDINGS: Operative findings included: 1. Pericholecystic Adhesions: mild 2. Hepatocystic [place] Adhesions: mild to mod 3. Critical View [...] deep venousthromboprophylaxis measures were taken as per [facility] Thromboprophylaxis hospital form. General endotracheal anesthesia was [...] each carefully inspected. The robotic Weck clip hand stapler was used to apply 2 clips medially 1 clip laterally to the cystic duct. The clips covered the width of the cystic duct appropriately. A single orifice was noted at the cystic duct cut surface. The cystic duct was divided with the robotic scissors. The cystic artery was isolated and clipped with 2 clips medially 1 clip laterally with the robotic Weck clip hand stapler. The cystic artery was divided. The gallbladder [...] DISPOSITION: PACU - hemodynamically stable. CONDITION: good Luicano Edwards MD, FACS Date: 02/01/2021 Time: 2:25 PM CC: REFERRING PHYSICIAN: ATTENDING PHYSICAN: Luciano Edwards,* * Pre-Procedure Note - Paty Blank PA - 01/25/2021 10:40 AM CDT Patient's mother instructed for patient to go for COVID testing to [facility] 01/29 or 01/30. She verbalizes understanding. Order placed by me. Results to be reviewed prior to surgery. Paty Blank PA-C [facility] [place] [phone] documented in this encounter Plan of Treatment [...] a t end of case Narrative PATHOLOGY [facility] - 02/05/2021 12:14 PM CDT [address], [place], [place] ??[address] Tele: ?? Yakelin Rodriguez MD - Cost Report Clerkpediatric rn PATHOLOGY REPORT Patient Name: ??NINA COYNE Address: ??[address] [place] [address] Gender: ??F : ??2000 (Age: 20) Service: ??Surgery Location: ??A15, ?? Hospital #: ??[id number] Patient Type: ??[facility] Accession #: ? [id number] Taken: ? 02/01/2021 Received ? 02/01/2021 Reported: ? 02/05/2021 Physician(s): ? Luciano Edwards M.D. Johnna Tinajero M.D. DIAGNOSIS: Gallbladder, laparoscopic cholecystectomy: ? - No histopathologic abnormality [facility]/02/05/2021 12:14 Examining Pathologist: Nehal Abarca M.D. Report [...] in a container, filtered, yielding no gallstones. ??Assistant Art Director sections are submitted in cassette A1. [facility]/02/04/2021 10:28 ? [facility] MICROSCOPIC DESCRIPTION: Sections of the gallbladder are unremarkable. ??There is no inflammation or hypertrophy of the muscularis. ??An unremarkable lymph node is noted. Clerical Data Follows A; 36108 REPORT IMAGES AND/OR SCANNED DOCUMENTS ONLY VIEWABLE IN PDF FORMAT The immunohistochemical test(s) cited in this report, if any, was developed and its performance characteristics determined by [facility] Pathology Department. ??It has not been cleared or approved by the U.S. Food and Drug Administration. ??The FDA has determined that such clearance or approval is not necessary. ??This test is used for clinical purposes. ??It should not be regarded as investigational or for research. ??[facility] Laboratory is certified under the Clinical Laboratory [...] LAB PATHOLOGY ORDERABL ES Final Result PATHOLOGY [facility] Laboratory Receiving [address] [place] [address] * POCT hCG, urine (02/01/2021 10:01 AM CDT) Pathologist [facility] HCG, ur, POC Negative Lot Number [id number] QC Backgroud Clear Acceptable QC Control Line Acceptable Urine 02/01/2021 10:0 1 AM CDT Jeff Garcia MD POINT OF CARE TEST ORDER KATHERINE Final Result * COVID-19 Coronavirus RNA Nasopharyngeal (01/29/2021 12:51 PM CDT) Pathologist [facility] COVID-19 RNA Not Detected [facility] [...] and NAAT . ??Testing performed by the [facility] Molecular Infectious Disease Laboratory. The Novel Coronavirus [...] 2020. First COVID-19 test? No [facility] ([facility]) Comment:Testing performed by : [facility], [address] [place] [address], [id number] Employeed in healthcare? Unknown [facility] ([facility]IGUEL) Comment:Testing performed by : [facility], [address] [place] [address], [id number] status? Unknown [facility] ([facility]IGUEL) Comment:Testing performed by : [facility], [address] [place] [address], [id number] Group care resident? Unknown [facility] ([facility]EL) Comment:Testing performed by : [facility], [address] [place] [address], [address] Hospitalized? No [facility] ([facility]IGUEL) Comment:Testing performed by : [facility], [address] [place] [address], [id number] Is patient in ICU? No [facility] ([facility]EL) Comment:Testing performed by : [address], [address] Symptomatic as defined by CDC? No [facility] ([facility]) Comment:Testing performed by : [address], [address] Nasopharyngeal 01/29/2021 12 :51 PM CDT 01/29/2021 8:24 PM CDT Narrative [facility] (MIGUEL) - 01/30/2021 5:29 AM CDT What is the reason for testing?->Screening prior to scheduled procedure or surgery us Luciano Edwards MD LAB MICROBIOLOGY - GEN ERAL ORDERABLES Final Result [facility]) 1 [facility] Department [place] [address] documented in this encounter Visit Diagnoses Diagnosis [...] 02/01/2021 documented in this encounter Care Teams Nurse Staff Relationship Specialty Start Date End Date Johnna Tinajero MD [address] [address] PCP - General Pediatrics 07/19/19 01/26/23 Johnna Tinajero MD [address] [address] 07/19/19 [place] [address] [place] [address] Consulting Physician General Surgery 02/01/21 documented as of this encounter
--- OUTSIDE RECORDS SUMMARY | 2024-08-28 02:54 | XMS_ITS | Encounter Summary ---
Author Organization [facility] Address [address] [place] [address] Phone Care Team Providers Care Tong Hooker Name Role Phone Johnna Tinajero MD Primary Care Provider + Johnna Tinajero MD Unavailable [phone] Encounter Details Date Type Department Care Team (Late st Contact Info) Description 11/23/2020 Orders Only [facility] Pediatric Gastroenterology [facility] 2nd [place] [address] [place] [id number] Madyson Uriostegui, RUBY SOFTWARE DEVELOPER 1 [facility] [address] [place] [address] Social History Tobacco Use Types [...] on file 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 Consultation w/ adult GI at [facility] suggested the following providers work [...] documented as of this encounter Care Teams Tong Hooker Relationship Specialty Start Date End Date Johnna Tinajero MD [address] [address] PCP - General Pediatrics 07/19/19 01/26/23 Johnna Tinajero MD [address] [address] 07/19/19 documented as of this encounter
--- OUTSIDE RECORDS SUMMARY | 2024-08-28 02:54 | XMS_ITS | Encounter Summary ---
Author Organization [facility] Address [address] [place] [address] Phone Care Team Providers Care Vein Pumper Name Role Phone Johnna Tinajero MD Primary Care Provider + Johnna Tinajero MD Unavailable [phone] Luciano Edwards MD Unavailable [phone] Encounter Details Date Type Department Care Team (Late st Contact Info) Description 09/06/2021 Telephone [facility] [address] [facility] [address] [place] [address] Johnna Tinajero MD [address] [place] [address] [address] [place] [address] Social History Tobacco Use Types [...] on file 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 MOM WILL INFORM NINA STEINBERGWELL E DUSTER documented in this encounter Plan of Treatment Not on file documented as of this encounter Visit Diagnoses Not on filedocumented in this encounter Care Teams Vein Pumper Relationship Specialty Start Date End Date Johnna Tinajero MD [address] [address] PCP - General Pediatrics 07/19/19 01/26/23 Johnna Tinajero MD [address] [address] 07/19/19 Luciano Edwards MD [address] [address] Consulting Physician General Surgery 02/01/21 documented as of this encounter
--- OUTSIDE RECORDS SUMMARY | 2024-08-28 02:54 | XMS_ITS | Encounter Summary ---
Author Organization [facility] Address [address] [place] [address] Phone Care Team Providers Care Milling Machinist Name Role Phone Johnna Tinajero MD Primary Care Provider + Johnna Tinajero MD Unavailable [phone] Luciano Edwards MD Unavailable [phone] Encounter Details Date Type Department Care Team (Late st Contact Info) Description 12/04/2021 Telephone [facility] [address] [facility] [address] [place] [address] Johnna Tinajero MD [address] [place] [address] [address] [place] [address] Social History Tobacco Use Types [...] on file 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 Gender Identity Not on file Sexual Orientation Not on file documented as of this encounter Miscellaneous Notes * Telephone Encounter - Aileen Garcia - 12/04/2021 3:10 PM CDT PHONE CALL TO NINA REMINDING HER TO GO TO LAB THIS SUMMER * Telephone Encounter - Aileen Garcia - 12/04/2021 3:10 PM CDT ----- Message from Aileen Garcia sent at 11/06/2021 10:34 AM STRUCTURES MECHANIC ----- ----- Message ----- From: SYSTEM Sent: 10/31/2021 12:53 AM STRUCTURES MECHANIC To: Johnna Tinajero MD documented in this encounter Plan of Treatment Not on file documented as of this encounter Visit Diagnoses Not on filedocumented in this encounter Care Teams Milling Machinist Relationship Specialty [place] [address] [place] [address] PCP - General Pediatrics 07/19/19 01/26/23 [place] [address] [place] [address] 07/19/19 Luciano Edwards MD [address] [place] [address] Consulting Physician General Surgery 02/01/21 documented as of this encounter
--- OUTSIDE RECORDS SUMMARY | 2024-08-28 02:54 | XMS_ITS | Encounter Summary ---
Author Organization [facility] Healthcare Address [address] [place] [address] Care Team Providers Care Leather Toggler Name Role Phone Johnna Tinajero MD Primary Care Provider + Johnna Tinajero MD Unavailable [phone] Luciano Edwards MD Unavailable [phone] Arian Adam MD Unavailable [phone] Vicki Johnson Primary Care Pr ovider Encounter Details Date Type Department Care Team (Late st Contact Info) Description 01/03/2021 Telephone [facility] - Imaging [address] [place] [address] [place] [address] [place] [address] Social History Tobacco Use Types [...] file 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 Gender Identity Not on file Sexual Orientation Not on file documented as of this encounter Plan of Treatment Not on file documented as of this encounter Visit Diagnoses Not on filedocumented in this encounter Care Teams Leather Toggler Relationship Specialty Start Date End Date Johnna Tinajero MD [address] [address] PCP - General Pediatrics 07/19/19 01/26/23 [place] [address] [place] [address] PCP - General Physician Hand Singer 01/27/23 Johnna Tinajero MD [address] [address] 07/19/19 Luciano Edwards MD [address] [address] Consulting Physician General Surgery 02/01/21 [place] [address] [place] [address] Consulting Physician Gastroenterology 01/15/23 documented as of this encounter
--- OUTSIDE RECORDS SUMMARY | 2024-08-28 02:54 | XMS_ITS | Encounter Summary ---
Author Organization [facility] Address [address] [place] [address] [address] [place] [address] Phone Care Team Providers Care Percussion Instrument Tuner Name Role Phone Johnna Tinajero MD Primary Care Provider + Johnna Tinajero MD Unavailable [phone] Luciano Edwards MD Unavailable [phone] Reason for Visit * Reason Onset Date Comments Vomiting Blood 07/04/2021 Encounter Details Date Type Department Care Team (Late st Contact Info) Description 07/04/2021 Telephone [facility] [address] [facility] [address] [place] [address] Johnna Tinajero MD [address] [place] [address] [address] [place] [address] Vomiting Blood Social History Tobacco [...] on file 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 Patient away at [facility]. Started with diarrhea on 07/02 that resolved [...] on filedocumented in this encounter Care Teams Percussion Instrument Tuner Relationship Specialty Start Date End Date Johnna Tinajero MD [address] [address] PCP - General Pediatrics 07/19/19 01/26/23 Johnna Tinajero MD [address] [id number] 07/19/19 Luciano Edwards MD [address] [id number] Consulting Physician General Surgery 02/01/21 documented as of this encounter
--- OUTSIDE RECORDS SUMMARY | 2024-08-28 02:54 | XMS_ITS | Encounter Summary ---
Author Organization [facility] Address [address] [place] [address] Phone Care Team Providers Care Precision Machine Operator Name Role Phone Johnna Tinajero MD Primary Care Provider + Johnna Tinajero MD Unavailable [phone] Encounter Details Date Type Department Care Team (Late st Contact Info) Description 11/16/2020 Telephone [facility] Pediatric Gastroenterology [facility] 2nd [place] [address] [place] [address] Madyson Uriostegui, [employer] FIN[employer]CIALS DEVELOPER 1 [facility] [address] [place] [address] Social History Tobacco Use Types [...] on file 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
--- OUTSIDE RECORDS SUMMARY | 2024-08-28 02:54 | XMS_ITS | Encounter Summary ---
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. The 2019-Novel Coronavirus [...] [facility] ([facility]) Comment:Testing performed by : [facility], 1 [facility] [place]., [address] Employeed in healthcare? Unknown [facility] ([facility]EL) Comment:Testing performed by : [facility], [address] [facility] [place]., [address] status? Unknown [facility] (MIGUEL) Comment:Testing performed by : [facility], [address] [facility] [place]., [address] Group care resident? Unknown [facility] ([facility]IGUEL) Comment:Testing performed by : [facility], [address] [place]., [address] Hospitalized? No [facility] (MIGUEL) Comment:Testing performed by : [facility], 1 [facility], [address] Is patient in ICU? No [facility] (MIGUEL) Comment:Testing performed by : [facility], 1 [facility], [address] Symptomatic as defined by CDC? No [facility] (MIGUEL) Comment:Testing performed by : [facility], 1 [facility], [address] Nasopharyngeal 01/29/2021 12 :51 PM CDT 01/29/2021 8:24 PM CDT Narrative [facility] (MIGUEL) - 01/30/2021 5:29 AM CDT What is the reason for testing?->Screening prior to scheduled procedure or surgery Luciano Edwards MD LAB MICROBIOLOGY - GEN ERAL ORDERABLES Final Result [facility] ([facility]IGUEL) 1 [facility] [place] [address] documented in this encounter Visit Diagnoses Diagnosis Dyskinesia of gallbladder documented in this encounter Care Teams Supply Chain Consultant Relationship Specialty Start Date End Date Johnna Tinajero MD [address] [place] [address] PCP - General Pediatrics 07/19/19 01/26/23 Johnna Tinajero MD [address] [address] 07/19/19 documented as of this encounter
--- OUTSIDE RECORDS SUMMARY | 2024-08-28 02:54 | XMS_ITS | Encounter Summary ---
Author Organization [facility] Address [address] [place] [address] Phone Care Team Providers Care Rf Design Engineer Name Role Phone Johnna Tinajero MD Primary Care Provider + Johnna Tinajero MD Unavailable [phone] Encounter Details Date Type Department Care Team (Late st Contact Info) Description 10/30/2020 Telephone [facility] Pediatric Gastroenterology [facility] 2nd [place] [address] [place] [address] Brandee Solorzano, RD 1 [facility] [address] [place], [place] [id number] Social History Tobacco Use Types Packs/Day Years [...] on file 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 DINATE MEASURING MACHINE OPERATOR DINATE MEASURING MACHINE OPERATOR DINATE MEASURING MACHINE OPERATOR documented in this encounter Plan of Treatment Not on file documented as of this encounter Visit Diagnoses Not on filedocumented in this encounter Care Teams Rf Design Engineer Relationship Specialty Start Date End Date Johnna Tinajero MD [address] [address] PCP - General Pediatrics 07/19/19 01/26/23 Johnna Tinajero MD [address] [address] 07/19/19 documented as of this encounter
--- OUTSIDE RECORDS SUMMARY | 2024-08-28 02:54 | XMS_ITS | Referral Summary ---
Author Organization [facility] Address [address] [place] [address] Care Team Providers Care Printed Circuit Boards Inspector Name Role Phone Johnna Tinajero MD Unavailable [phone] Luciano Edwards MD Unavailable Arian Adam MD [...] (01/16/2021): Added automatically from request for surgery [id number] Vomiting without nausea 08/22/2020 Overview (08/22/2020): Added automatically from request for surgery [id number] Vasovagal syncope 10/25/2019 Assessment & Plan (11/06/2019 [...] consult Assessment & Plan (11/05/2019 2:21 PM PHYSIOTHERAPIST'S ASSISTANT): Nina presented following several syncopal episodes lasting [...] teaching Assessment & Plan (11/04/2019 5:26 PM PHYSIOTHERAPIST'S ASSISTANT): Nina presented following several syncopal episodes lasting [...] recommendations Assessment & Plan (11/03/2019 5:10 AM PHYSIOTHERAPIST'S ASSISTANT): Several syncopal episodes lasting seconds to minutes. [...] Clinic Assessment & Plan (11/05/2019 2:18 PM PHYSIOTHERAPIST'S ASSISTANT): GI was consulted as she was scheduled [...] Clinic Assessment & Plan (11/04/2019 5:27 PM PHYSIOTHERAPIST'S ASSISTANT): GI was consulted as she was scheduled [...] Clinic Assessment & Plan (09/19/2019 11:51 AM PHYSIOTHERAPIST'S ASSISTANT): 2 month history of worsening nausea with [...] contrast Assessment & Plan (09/18/2019 12:24 PM PHYSIOTHERAPIST'S ASSISTANT): 2 month history of worsening nausea with [...] clear. Assessment & Plan (09/17/2019 3:13 PM PHYSIOTHERAPIST'S ASSISTANT): 2 month history of worsening nausea with [...] week Assessment & Plan (09/16/2019 11:48 AM PHYSIOTHERAPIST'S ASSISTANT): 2 month history of worsening nausea with [...] week Assessment & Plan (09/15/2019 3:01 PM PHYSIOTHERAPIST'S ASSISTANT): 2 month history of worsening nausea with [...] prn Assessment & Plan (09/14/2019 1:01 PM PHYSIOTHERAPIST'S ASSISTANT): 2 month history of worsening nausea with [...] UDS Assessment & Plan (09/13/2019 7:51 PM PHYSIOTHERAPIST'S ASSISTANT): 2 month history of worsening nausea with [...] 07/20/2019 Assessment & Plan (09/19/2019 10:53 AM PHYSIOTHERAPIST'S ASSISTANT): Right lower quadrant abdominal pain began in [...] OCP Assessment & Plan (09/18/2019 12:17 PM PHYSIOTHERAPIST'S ASSISTANT): Right lower quadrant abdominal pain began in [...] OCP Assessment & Plan (09/17/2019 3:13 PM PHYSIOTHERAPIST'S ASSISTANT): Right lower quadrant abdominal pain began in [...] OCP Assessment & Plan (09/16/2019 11:42 AM PHYSIOTHERAPIST'S ASSISTANT): Right lower quadrant abdominal pain began in [...] OCP Assessment & Plan (09/15/2019 2:52 PM PHYSIOTHERAPIST'S ASSISTANT): Right lower quadrant abdominal pain began in [...] OCP Assessment & Plan (09/14/2019 1:00 PM PHYSIOTHERAPIST'S ASSISTANT): Right lower quadrant abdominal pain began in [...] OCP Assessment & Plan (09/13/2019 7:46 PM PHYSIOTHERAPIST'S ASSISTANT): Right lower quadrant abdominal pain began in [...] OCP Assessment & Plan (07/23/2019 12:28 PM PHYSIOTHERAPIST'S ASSISTANT): 19 year old girl with PMH obesity, [...] -encourage oral intake - regular diet, POAL -PSYCHOLOGICAL ANTHROPOLOGIST following -Scheduled tylenol and toradol q6hr for pain -start OCP with discharge and f/u with gynecology -f/u DHES-A, Testosterone results Assessment & Plan (07/22/2019 9:02 AM PHYSIOTHERAPIST'S ASSISTANT): 19 year old girl with PMH obesity, [...] amount of free fluid in posterior cul-de-sac -PSYCHOLOGICAL ANTHROPOLOGIST following -Schd tylenol and toradol q6hr for pain - f/u FSH, LH, prolactin, DHEAS, free and total testerone; if wnl can start OCP Assessment & Plan (07/21/2019 12:42 PM PHYSIOTHERAPIST'S ASSISTANT): 19 year old girl with PMH obesity, [...] cul-de-sac Assessment & Plan (07/20/2019 1:18 AM PHYSIOTHERAPIST'S ASSISTANT): 19 year old girl with PMH obesity, [...] 07/20/2019 Assessment & Plan (07/23/2019 12:26 PM PHYSIOTHERAPIST'S ASSISTANT): History of numerous hospitalizations due to asthma exacerbations in childhood, with several day long stay in PICU 5 or 6 years ago (no intubations). Asthma presently well-controlled on regimen of qHS breo inhaler, with no hospitalizations or exacerbations in last several years. - continue qHS breo - albuterol PRN q4hrs Assessment & Plan (07/22/2019 9:02 AM PHYSIOTHERAPIST'S ASSISTANT): History of numerous hospitalizations due to asthma exacerbations in childhood, with several day long stay in PICU 5 or 6 years ago (no intubations). Asthma presently well-controlled on regimen of qHS breo inhaler, with no hospitalizations or exacerbations in last several years. - continue qHS breo - albuterol PRN q4hrs Assessment & Plan (07/21/2019 7:29 AM PHYSIOTHERAPIST'S ASSISTANT): History of numerous hospitalizations due to asthma exacerbations in childhood, with several day long stay in PICU 5 or 6 years ago (no intubations). Asthma presently well-controlled on regimen of qHS breo inhaler, with no hospitalizations or exacerbations in last several years. - continue qHS breo - albuterol PRN q4hrs Assessment & Plan (07/20/2019 1:12 AM PHYSIOTHERAPIST'S ASSISTANT): History of numerous hospitalizations due to asthma exacerbations in childhood, with several day long stay in PICU 5 or 6 years ago (no intubations). Asthma presently well-controlled on regimen of qHS breo inhaler, with no hospitalizations or exacerbations in last several years. - continue qHS breo - albuterol PRN q4hrs Anxiety 07/20/2019 Assessment & Plan (07/23/2019 12:26 PM PHYSIOTHERAPIST'S ASSISTANT): Followed by therapist, patient states that therapy [...] qHS Assessment & Plan (07/22/2019 7:17 AM PHYSIOTHERAPIST'S ASSISTANT): Followed by therapist, patient states that therapy [...] qHS Assessment & Plan (07/21/2019 7:29 AM PHYSIOTHERAPIST'S ASSISTANT): Followed by therapist, patient states that therapy [...] qHS Assessment & Plan (07/20/2019 1:14 AM PHYSIOTHERAPIST'S ASSISTANT): Followed by therapist, patient states that therapy [...] Neurology. Assessment & Plan (11/05/2019 2:27 PM PHYSIOTHERAPIST'S ASSISTANT): Patient with daily headaches for the past [...] 10/01/2021 Assessment & Plan (10/26/2020 2:12 PM PHYSIOTHERAPIST'S ASSISTANT): Nina is an 20yo with past medical [...] NSAIDs Assessment & Plan (10/25/2020 1:21 PM PHYSIOTHERAPIST'S ASSISTANT): Nina is an 20yo with past medical [...] NSAIDs Assessment & Plan (10/24/2020 6:08 AM PHYSIOTHERAPIST'S ASSISTANT): Nina is an 20yo with past medical [...] 10/25/2020 Assessment & Plan (10/25/2020 10:34 AM PHYSIOTHERAPIST'S ASSISTANT): Hematemesis occurred in setting of intractable vomiting for several day duration. 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 - IV Protonix q 12 hours - Avoid NSAIDs Assessment & Plan (10/24/2020 2:10 AM PHYSIOTHERAPIST'S ASSISTANT): Hematemesis occurred in setting of intractable vomiting [...] 10/01/2021 Assessment & Plan (10/26/2020 10:30 AM PHYSIOTHERAPIST'S ASSISTANT): Symptoms of dehydration include decreased urination and delayed capillary refill (identified on exam in ED). She completed a normal saline bolus in the ED. Once she is able to tolerate adequate oral hydration, IV fluids will be discontinued. - Continue mIV fluids Assessment & Plan (10/25/2020 10:35 AM PHYSIOTHERAPIST'S ASSISTANT): Symptoms of dehydration include decreased urination and delayed capillary refill (identified on exam in ED). She completed a normal saline bolus in the ED. Once she is able to tolerate adequate oral hydration, IV fluids will be discontinued. - Continue mIV fluids Assessment & Plan (10/24/2020 2:11 AM PHYSIOTHERAPIST'S ASSISTANT): Symptoms of dehydration include decreased urination and delayed capillary refill (identified on exam in ED). She completed a normal saline bolus in the ED. - Continue mIV fluids Mild malnutrition 09/15/2019 08/22/2020 Assessment & Plan (09/19/2019 10:53 AM PHYSIOTHERAPIST'S ASSISTANT): 15 pound weight loss over several months due to chronic nausea and vomiting with resultant poor appetite. - Manage nausea symptoms - nutrition consult Assessment & Plan (09/18/2019 12:24 PM PHYSIOTHERAPIST'S ASSISTANT): 15 pound weight loss over several months due to chronic nausea and vomiting with resultant poor appetite. - Manage nausea symptoms - nutrition consult Assessment & Plan (09/17/2019 3:13 PM PHYSIOTHERAPIST'S ASSISTANT): 15 pound weight loss over several months due to chronic nausea and vomiting with resultant poor appetite. - Manage nausea symptoms - nutrition consult - Consider cyproheptadine Assessment & Plan (09/16/2019 11:43 AM PHYSIOTHERAPIST'S ASSISTANT): 15 pound weight loss over several months due to chronic nausea and vomiting with resultant poor appetite. - Manage nausea symptoms - nutrition consult - Consider cyproheptadine Assessment & Plan (09/15/2019 3:00 PM PHYSIOTHERAPIST'S ASSISTANT): 15 pound weight loss over several months [...] often do you attend chur ch or alevism services? More than 4 times per year 01/13/2023 Do you belong to any clubs o r organizations such as gnosticist groups, unions, fraternal or athletic groups, or [...] on file Legal Sex 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 PHYSIOTHERAPIST'S ASSISTANT Gender Identity Not on file Sexual [...] Plan of Treatment Not on file Insurance [employer] [employer] [place] [facility]ESS [employer] [facility] Advance Directives For more information, please contact: [phone] Documents on File Type Date Recorded Patient Test Developer Expl anation ADVANCE DIRECTIVE 02/01/2021 9:08 [...] 9:45 PM 07/23/2019 7:58 PM Care Teams Printed Circuit Boards Inspector Relationship Specialty [place] [address] [place] [address] PCP - General Physician Assistant Food Service Director 01/27/23 Johnna Tinajero MD [address] [address] 07/19/19 Luciano Edwards MD [address] [address] Consulting Physician General Surgery 02/01/21 [place] [address] [place] [address] Consulting Physician Gastroenterology 01/15/23
--- OUTSIDE RECORDS SUMMARY | 2024-08-28 02:54 | XMS_ITS | Encounter Summary ---
Author Organization [facility] Address [address] [place] [address] Phone Care Team Providers Care Conduit Worker Name Role Phone Johnna Tinajero MD Primary Care Provider + Johnna Tinajero MD Unavailable [phone] Encounter Details Date Type Department Care Team (Late st Contact Info) Description 11/08/2020 Telephone [facility] Pediatric Gastroenterology [facility] 2nd [place] [address] [place] [address] Brandee Solorzano, RD [address] [facility] [address] [place], [place] [id number] Social History Tobacco Use Types Packs/Day Years [...] on file Legal Sex 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 ADMITTED ATTORNEYS Gender Identity Not on file Sexual Orientation [...] dorm and eats from restaurants at the [employer] ([employer], [employer], [employer], [employer], [employer]) or the dining prieto [...] go back to school. She's had a counselor/social security benefits interviewer that she's seen off and on since 11 years old. Plan ?? Recommend add Ensure, Boost, or OWYN shakes. ?? Continue low FODMAP diet for another week. ?? When possible, space out meals/snacks every 4 hours and fast 12 hours per night. ?? Contact dining services at [facility] to get more information about accomodations for low FODMAP. ?? Continue to stay off probiotic while on low FODMAP diet. ?? Send me a diet/symptom log ?? Follow up with Dr Weeks TTED ATTORNEYS documented in this encounter Plan of Treatment Not on file documented as of this encounter Visit Diagnoses Not on filedocumented in this encounter Care Teams Conduit Worker Relationship Specialty Start Date End Date Johnna Tinajero MD [address] [facility] [address] [place] [address] PCP - General Pediatrics 07/19/19 01/26/23 Johnna Tinajero MD [address] [facility] [address] [place] [address] 07/19/19 documented as of this encounter
--- OUTSIDE RECORDS SUMMARY | 2024-08-28 02:54 | XMS_ITS | Encounter Summary ---
Author Organization [facility] Address [address] [place] [address] Phone Care Team Providers Care Slag Expander Name Role Phone Johnna Tinajero MD Primary Care Provider + Johnna Tinajero MD Unavailable [phone] Luciano Edwards MD Unavailable [phone] Encounter Details Date Type Department Care Team (Late st Contact Info) Description 04/28/2022 Telephone [facility] [facility] [address] [place] [address] Johnna Tinajero MD [address] [place] [address] [address] [place] [address] Social History Tobacco Use Types [...] on file Legal Sex 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 BRIDGE OPERATOR Gender Identity Not on file Sexual Orientation Not on file documented as of this encounter Miscellaneous Notes * Telephone Encounter - Basilia Dillard RN - 04/28/2022 8:06 AM CDT Nina Coyne tested positive for mono, at urgent care up at [place]. Discussed the below information with the patient. [...] she has a heavy work load at [employer] she will discuss with her counselor and see if she needs a letter of accomodation and CB or reach out through [employer] if she does need letter. Continue supportive care and return to the with worsening ST in case secondary infection. CB with worsening or new symptoms, further concerns, or other needs. documented in this encounter Plan of Treatment Not on file documented as of this encounter Visit Diagnoses Not on filedocumented in this encounter Care Teams Slag Expander Relationship Specialty Start Date End Date Johnna Tinajero MD [address] [address] PCP - General Pediatrics 07/19/19 01/26/23 Johnna Tinajero MD [address] [address] 07/19/19 Luciano Edwards MD [address] [address] Consulting Physician General Surgery 02/01/21 documented as of this encounter
--- OUTSIDE RECORDS SUMMARY | 2024-08-28 02:54 | XMS_ITS | Encounter Summary ---
Author Organization [facility] Healthcare Address [address] [place] [address] Care Team Providers Care Surface Ship Usw Supervisor Name Role Phone Johnna Tinajero MD Primary Care Provider + Johnna Tinajero MD Unavailable [phone] Luciano Edwards MD Unavailable [phone] Reason for Visit * Reason Comments Abdominal Pain Encounter Details Date Type Department Care Team (Late st Contact Info) Description 12/14/2022 3:18 PM CDT - 12/14/2022 9:34 PM CDT Emergency [facility] Emergency Department [address] [place] [address] Sanju Caballero DO [address] [place] [address] Shawn Gill MD [address] [place] [address] Abdominal pain (Primary Dx) Discharge Disposition: Discharge [...] on file Legal Sex 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 LEAF STAMPER Gender Identity Not on file Sexual Orientation [...] in the ER Please call us at [phone] if you have any further questions or [...] Everywhere. * Abdominal Pain, Unknown Cause, (Female) (Liberian) documented in this encounter Medications at Time [...] of nephrolithiasis. Primary care physic yung physician medicine assistant had seen her in the office and [...] sinus rhythm with sinus arrhythmia with short DC Anxiety 07/20/2019 Asthma Biliary dyskinesia Migraine headache [...] gallops noted. Regular rate and rhythm, bedside specialty cook showing NSR PULMONARY: Normal respiratory effort without [...] tendency for uric acid stone formation. Source: Course Hero.Last revised 09-10-2017 POCT HCG, URINE - Normal [...] MD THIS DOCUMENT WAS READ BY A [facility] RADIOLOGIST, ANY QUESTIONS PLEASE CALL [phone] Final Result 1[address] No CT evidence of acute appendicitis 2. No acute bowel abnormality 3. Question mild heterogeneous enhancement upper pole left kidney with minimal dilatation upper pole collecting system. No urolithiasis. Given the diffuse urinary bladder wall thickening, correlation with urinalysis to exclude urinary tract infection is recommended. For the purposes of quality cloth tester, this study was initially interpreted by teleradiology. There is no significant discrepancy. Electronically signed by: Wendy Rosales M.D. [facility] Medical Decision Making Appears clinically stable. [...] is recommended. For the purposes of quality cloth tester, this study was initially interpreted by teleradiology. [...] is recommended. For the purposes of quality cloth tester, this study was initially interpreted by teleradiology. There is no significant discrepancy. Electronically signed by: Wendy Rosales M.D. Sanju Caballero DO IMG CT PROCEDURES Final Res ult * (ABNORMAL) Urinalysis reflex to microscopic and culture Urine (12/14/2022 5:28 PM CDT) Color, ur Yellow Yellow [facility] Clarity, ur Clear Clear [facility] Specific gravity, ur 1.035(H) 1.003 - 1.030 [facility] pH, urine 6.0 [facility] Protein, ur ql Trace Negative [facility] Glucose, ur ql Negative Negative [facility] Ketones, ur Negative Negative [facility] Bilirubin, ur Negative Negative [facility] Blood, ur Negative Negative [facility] Urobilinogen, ur <2.0 <2.0 mg/dL [facility] Nitrite, ur Negative Negative [facility] Leukocyte esterase, ur Negative Negative [facility] UA reflex comment Reflex conditions for microscopic UA and culture not met. [facility] Urine 12/14/2022 5:28 PM CDT 12/14/2022 5:46 PM CDT Narrative [facility] - 12/14/2022 5:49 PM CDT ?? Urine pH is affected by diet, medications, systemic acid-base disturbances, and renal tubular function. ??pH may affect urinary stone formation. ??For example, urine pH below 6.0 may help reduce the tendency for calcium phosphate stones and pH greater than 6.0 may reduce the tendency for uric acid stone formation. Source: Course Hero. Last revised 09-10-2017 Sanju Caballero DO LAB MICROBIOLOGY - GENERAL ORDERABLES Final Result [facility] [address] Department [place] [address] * POCT hCG, urine (12/14/2022 5:27 PM CDT) Pathologist [facility] HCG, ur, POC Negative Lot Number [id number] QC Backgroud Clear Acceptable QC Control Line Acceptable Urine 12/14/2022 5:27 PM CDT us Sanju Caballero DO POINT OF CARE TEST ORDERABL ES Final Result * eGFR (12/14/2022 2:42 PM CDT) Pathologist [facility] eGFR 107 mL/min/1. 73 m2 [facility] Comment: Interpretive Data Reference Interval Normal ?>/= [...] MD LAB BLOOD ORDERABLES Neris rick Result [facility] [address] Department [place] [address] * Differential, auto (12/14/2022 2:42 PM CDT) Neutrophil abs 2.7 1.7 - 6.5 K/cumm [facility] Imm gran abs 0.0 0.0 - 0.1 K/cumm [facility] Lymphocyte abs 2.4 0.8 - 3.3 K/cumm [facility] Monocyte abs 0.6 0.2 - 0.8 K/cumm [facility] Eosinophil abs 0.3 0.0 - 0.5 K/cumm [facility] Basophil abs 0.1 0.0 - 0.1 K/cumm [facility] Neutrophil pct 44.5 % [facility] Comment: Interpretive Data Percent cell count reference ranges are not reported, since discordance with absolute values may lead to misinterpretation of CBC data. Current Interpretive Data was last revised on 2017. Imm gran pct 0.3 % [facility] Comment: Interpretive Data Percent cell count reference ranges are not reported, since discordance with absolute values may lead to misinterpretation of CBC data. Current Interpretive Data was last revised on 2017. Lymphocyte pct 40.6 % [facility] Comment: Interpretive Data Percent cell count reference ranges are not reported, since discordance with absolute values may lead to misinterpretation of CBC data. Current Interpretive Data was last revised on 2017. Monocyte pct 9.3 % [facility] Comment: Interpretive Data Percent cell count reference ranges are not reported, since discordance with absolute values may lead to misinterpretation of CBC data. Current Interpretive Data was last revised on 2017. Eosinophil pct 4.3 % [facility] Comment: Interpretive Data Percent cell count reference ranges are not reported, since discordance with absolute values may lead to misinterpretation of CBC data. Current Interpretive Data was last revised on 2017. Basophil pct 1.0 % [facility] Comment: Interpretive Data Percent cell count reference ranges are not reported, since discordance with absolute values may lead to misinterpretation of CBC data. Current Interpretive Data was last revised on 2017. Blood 12/14/2022 2:42 PM CDT 12/14/2022 3:45 PM CDT Edilberto Mayers MD LAB BLOOD ORDERABLES Neris l Result Performing Organization Address City/[facility]/ZIP Co de Phone Number [facility] [address] Department of [place], [place] [id number] * Lipase (12/14/2022 2:42 PM CDT) Pathologist [facility] Lipase 27 10 - 99 Units/L [facility] Blood (Blood, Venous) 12/14/2022 2:42 PM CDT 12/14/2022 3:44 PM CDT Sanju Caballero DO LAB BLOOD ORDERABLES Final Result Performing Organization Address [facility] Co de Phone Number [facility] [address] [place] [address] * Comprehensive metabolic panel (12/14/2022 2:42 PM CDT) Pathologist [facility] Sodium 139 135 - 145 mmol/L [facility] Potassium, pl 4.0 3.3 - 4.9 mmol/L [facility] Chloride 106 97 - 110 mmol/L [facility] CO2 23 22 - 32 mmol/L [facility] Anion gap 10 2 - 15 mmol/L [facility] BUN 8 8 - 25 mg/dL [facility] Creatinine 0.81 0.60 - 1.10 mg/dL [facility] Glucose 111 70 - 199 mg/dL [facility] Comment: Interpretive Data Fasting glucose >/= 126 [...] 2022. Calcium 9.1 8.5 - 10.3 mg/dL [facility] Bilirubin, total 0.5 0.1 - 1.2 mg/dL [facility] Protein, pl 6.8 6.5 - 8.5 g/dL [facility] Albumin 3.8 3.5 - 5.0 g/dL [facility] Alk phos 51 40 - 130 Units/L [facility] ALT 21 7 - 45 Units/L [facility] AST 26 10 - 45 Units/L [facility] Blood 12/14/2022 2:42 PM CDT 12/14/2022 3:44 PM CDT us Sanju Caballero DO LAB BLOOD ORDERABLES Final Result [facility] [address] Department [place] [address] * CBC with auto differential (12/14/2022 2:42 PM CDT) WBC 6.0 3.8 - 9.9 K/cumm [facility] Hgb 13.3 11.9 - 15.5 g/dL [facility] Hct 40.6 35.6 - 45.5 % [facility] Plt 372 150 - 400 K/cumm [facility] MPV 10.3 9.1 - 12.3 fL [facility] RBC 4.49 3.90 - 5.20 M/cumm [facility] MCV 90.4 81.3 - 96.4 fL [facility] MCH 29.6 27.1 - 33.3 pg [facility] MCHC 32.8 32.3 - 35.7 g/dL [facility] RDW CV 12.9 11.1 - 14.9 % [facility] RDW SD 42.8 35.7 - 48.1 fL [facility] NRBC abs 0.00 0.00 - 0.01 K/cumm [facility] Blood (Blood, Venous) 12/14/2022 2:42 PM CDT 12/14/2022 3:45 PM CDT Sanju Caballero DO LAB BLOOD ORDERABLES Final Result [facility] [address] Department [place] [address] documented in this encounter Visit Diagnoses Diagnosis [...] 12/14/2022 documented in this encounter Care Teams Surface Ship Usw Supervisor Relationship Specialty [place] [address] [place] [address] PCP - General Pediatrics 07/19/19 01/26/23 Johnna Tinajero MD [address] [address] 07/19/19 [place] [address] [place] [address] Consulting Physician General Surgery 02/01/21 documented as of this encounter
--- OUTSIDE RECORDS SUMMARY | 2024-08-28 02:54 | XMS_ITS | Encounter Summary ---
Author Organization [facility] Healthcare Address [address] [place] [address] Care Team Providers Care Reference Librarian Name Role Phone Johnna Tinajero MD Primary Care Provider + Johnna Tinajero MD Unavailable [phone] Luciano Edwards MD Unavailable [phone] Encounter Details Date Type Department Care Team (Late st Contact Info) Description 02/01/2021 11:00 AM CDT - 02/01/2021 2:00 PM CDT Surgery [facility] Operating Room [address] [place] [address] Luciano Edwards MD [address] [facility] [address] [place] [address] Robotic Assisted Cholecystectomy Surgery Details Date/Time Status Location OR Service Patient Class Case Cl ass Case Type Trauma Case? 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 General Surgery [...] directed for severe pain. You may use [id number] ibuprofen 200-600 mg every 6-8 hours as [...] rhythm with sinus arrhythmia with short RI ??? Anxiety 07/20/2019 ??? Asthma ??? Nausea [...] 4 mg tablet 06/13/20 -- Madyson Uriostegui, MACHINE HOSE CUTTER Take 1 tablet (4 mg total) by [...] SURGERY OPERATIVE NOTE: Luciano Edwards MD, FACS [facility] [address] [address] Exchange: Cellular: Patient Identifying Information: Patient Name: [...] Cholecystectomy ANESTHESIA: General Anesthesiologist: Jeff Garcia MD BUCKET OPERATOR: Elpidio Faith CRNA IMPLANTS: Nothing was implanted during the procedure PREOPERATIVE ANTIBIOTICS: 2g Ancef IV, within one hour of the incision. VTE PROPHYLAXIS: Sequential Compression Devices were administered as per Caprini thromboprophylaxis recommendation form review. INDICATION FOR PROCEDURE: Biliary Dyskinesia OPERATIVE FINDINGS: Operative findings included: 1. Pericholecystic Adhesions: mild 2. Hepatocystic [place] Adhesions: mild to mod 3. Critical View [...] deep venousthromboprophylaxis measures were taken as per [facility] / [facility] Thromboprophylaxis hospital form. General endotracheal anesthesia [...] each carefully inspected. The robotic Weck clip undercover agent was used to apply 2 clips medially 1 clip laterally to the cystic duct. The clips covered the width of the cystic duct appropriately. A single orifice was noted at the cystic duct cut surface. The cystic duct was divided with the robotic scissors. The cystic artery was isolated and clipped with 2 clips medially 1 clip laterally with the robotic Weck clip undercover agent. The cystic artery was divided. The gallbladder [...] patient to go for COVID testing to [facility] 01/29 or 01/30. She verbalizes understanding. Order placed by me. Results to be reviewed prior to surgery. Paty Blank PA-C [facility] [place] [phone] documented in this encounter Plan of Treatment [...] a t end of case Narrative PATHOLOGY [facility] - 02/05/2021 12:[address] PM [address] ??[address] Tele: ?? Yakelin Rodriguez MD - Single Needle Tufting Machine Operatorfuel cell designer PATHOLOGY REPORT Patient Name: ??NINA COYNE Address: ??[address] [place] [address], [place], [place] [address] Gender: ??F : ??2000 (Age: 20) Service: ??Surgery Location: ??A15, ?? Hospital #: ??[id number] Patient Type: ??[facility] SAME DAY SURGERY Accession #: ? [id number] Taken: ? 02/01/2021 Received ? 02/01/2021 Reported: ? 02/05/2021 Physician(s): ? Josue Oates M.D. DIAGNOSIS: Gallbladder, laparoscopic cholecystectomy: ? - No histopathologic abnormality [facility]/02/05/2021 12:14 Examining Pathologist: Nehal Abarca M.D. Report [...] in a container, filtered, yielding no gallstones. ??Rubber Chemist sections are submitted in cassette A1. [facility]/02/04/2021 10:28 ? ESB,[facility] MICROSCOPIC DESCRIPTION: Sections of the gallbladder are unremarkable. ??There is no inflammation or hypertrophy of the muscularis. ??An unremarkable lymph node is noted. Clerical Data Follows A; [id number] REPORT IMAGES AND/OR SCANNED DOCUMENTS ONLY VIEWABLE IN PDF FORMAT The immunohistochemical test(s) cited in this report, if any, was developed and its performance characteristics determined by [facility] Pathology Department. ??It has not been cleared or approved by the U.S. Food and Drug Administration. ??The FDA has determined that such clearance or approval is not necessary. ??This test is used for clinical purposes. ??It should not be regarded as investigational or for research. ??[facility] Laboratory is certified under the Clinical [...] LAB PATHOLOGY ORDERABL ES Final Result PATHOLOGY [facility] Laboratory Receiving [address] [place] [address] * POCT hCG, urine (02/01/2021 [...] and NAAT . ??Testing performed by the [facility] Molecular Infectious Disease Laboratory. The Novel [...] [facility] ([facility]) Comment:Testing performed by : [facility], [address] [place] [address], [address] Employeed in healthcare? Unknown [facility] ([facility]) Comment:Testing performed by : [facility], [address] [place] [address], [phone] status? Unknown [facility] ([facility]) Comment:Testing performed by : [facility], [address] [place] [address], [phone] Group care resident? Unknown [facility] ([facility]) Comment:Testing performed by : [facility], [address] [place] [address], [address] Hospitalized? No [facility] ([facility]) Comment:Testing performed by : [facility], [address] [place] [address], [address] Is patient in ICU? No [facility] ([facility]) Comment:Testing performed by : [facility], [address] [place] [address], [address] Symptomatic as defined by CDC? No [facility] ([facility]) Comment:Testing performed by : [address], [address] Nasopharyngeal 01/29/2021 12 :51 PM CDT 01/29/2021 8:24 PM CDT Narrative [facility]) - 01/30/2021 5:29 AM CDT What is the reason for testing?->Screening prior to scheduled procedure or surgery us Luciano Edwards MD LAB MICROBIOLOGY - GEN ERAL ORDERABLES Final Result [facility] (MIGUEL) [address] [facility] Department [place] [address] documented in this encounter Visit Diagnoses Diagnosis [...] 02/01/2021 documented in this encounter Care Teams Reference Librarian Relationship Specialty Start Date End Date Johnna Tinajero MD [address] [address] PCP - General Pediatrics 07/19/19 01/26/23 Johnna Tinajero MD [address] [address] 07/19/19 Luciano Edwards MD [address] [address] Consulting Physician General Surgery 02/01/21 documented as of this encounter
--- OUTSIDE RECORDS SUMMARY | 2024-08-28 02:54 | XMS_ITS | Encounter Summary ---
Author Organization [facility] Address [address] [place] [address] Phone Care Team Providers Care Black Belt Name Role Phone Johnna Tinajero MD Primary Care Provider + Johnna Tinajero MD Unavailable [phone] Luciano Edwrads MD Unavailable [phone] Encounter Details Date Type Department Care Team (Late st Contact Info) Description 08/20/2021 Telephone [facility] [address] [facility] [address] [place] [address] Johnna Tinajero MD [address] [place] [address] [address] [place] [address] Social History Tobacco Use Types [...] on file 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 [...] same day urgent appointment or take to [facility]. Reviewed sxs management. CB in meantime for new/worsening sxs, questions, concerns, or needs. Mom verbalizes understanding and agrees with plan of care. ICES HOST ICES HOST documented in this encounter Plan of Treatment Not on file documented as of this encounter Visit Diagnoses Not on filedocumented in this encounter Care Teams Black Belt Relationship Specialty Start Date End Date Johnna Tinajero MD [address] [address] PCP - General Pediatrics 07/19/19 01/26/23 Johnna Tinajero MD [address] [address] 07/19/19 Luciano Edwards MD [address] [facility] [address] [place] [address] Consulting Physician General Surgery 02/01/21 documented as of this encounter
--- OUTSIDE RECORDS SUMMARY | 2024-08-28 02:54 | XMS_ITS | Encounter Summary ---
Author Organization [facility] Healthcare Address [address] [place] [address] Care Team Providers Care Morgue Attendant Name Role Phone Johnna Tinajero MD Primary Care Provider + Johnna Tinajero MD Unavailable [phone] Luciano Edwards MD Unavailable [phone] Encounter Details Date Type Department Care Team (Late st Contact Info) Description 02/01/2021 11:09 AM CDT Anesthesia Event [facility] Operating Room [address] [place] [address] Jeff Garcia MD [address] [facility] [place] [address] Paty Blank PA [address] [place] [address] Anesthesia Record Procedure Summary Procedure Name Responsible [...] LP site; 08/02/24 (Retired LDA, Removed/Completed by [employer] with LDA Utility); 1213 (Retired LDA, Removed/Completed by [employer] with LDA Utility) 11/04/19 1315 by Mile Ha RN 08/02/24 1213 by Discharge Provider, Automatic Peripheral IV Placement Date: 02/01/21; Placement Time: 945; Catheter Size: 20 G; Orientation: Left, Posterior; Location: Hand; Site Prep: Chlorhexidine; Inserted by: gordo coleman; Insertion Attempts: 1; Patient Tolerance: Tolerated well; Removal Date: 02/01/21; Removal Time: 1525 02/01/21 0946 by Ana Saini RN 02/01/21 1525 by Sherly Gifford, GLENDA [...] 1259; Abdomen; 08/02/24 (Retired LDA, Removed/Completed by [employer] with LDA Utility); 1213 (Retired LDA, Removed/Completed by [employer] with LDA Utility) 02/01/21 1259 by Berny [...] on file 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 Anxiety 07/20/2019 ??? Asthma ??? Nausea [...] Procedure Name Priority Date/Time Associated Diagnosis Comments CA AN PROCEDURE PLACEHOLDER Routine 02/01/2021 11:27 AM CDT CA AN ELECTIVE ENDOTRACHEAL AIRWAY Routine 02/01/2021 11:27 AM CDT documented in this encounter Results * CA AN ELECTIVE ENDOTRACHEAL AIRWAY, CA AN PROCEDURE PLACEHOLDER (02/01/2021 11:27 AM CDT) [...] mg documented in this encounter Care Teams Morgue Attendant Relationship Specialty Start Date End Date Johnna Tinajero MD [address] [id number] PCP - General Pediatrics 07/19/19 01/26/23 Johnna Tinajero MD [address] [id number] 07/19/19 Luciano Edwards MD [address] [address] Consulting Physician General Surgery 02/01/21 documented as of this encounter
--- OUTSIDE RECORDS SUMMARY | 2024-08-28 02:55 | XMS_ITS | Encounter Summary ---
Author Organization [facility] Address [address] [place] [address] Phone Care Team Providers Care Inspector Electromechanical Name Role Phone Johnna Tinajero MD Primary Care Provider + Johnna Tinajero MD Unavailable Encounter Details Date Type Department Care Team (Late st Contact Info) Description 08/22/2020 Orders Only [facility] Pediatric Gastroenterology [facility] 2nd [place] [address] [place] [id number] Madyson Uriostegui, CLIN ASST 1 [facility] [address] [place], [place] [id number] Vomiting without nausea, intractability of vomiting not [...] on file 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
--- OUTSIDE RECORDS SUMMARY | 2024-08-28 02:55 | XMS_ITS | Encounter Summary ---
Author Organization [facility] Address [address] [place] [address] [address] [place] [address] Phone Care Team Providers Care Gill Net Stringer Name Role Phone Johnna Tinajero MD Primary Care Provider + Johnna Tinajero MD Unavailable [phone] Reason for Visit * Reason Onset Date Comments syncope episode 04/19/2020 Encounter Details Date Type Department Care Team (Late st Contact Info) Description 04/19/2020 Telephone [facility] [address] [facility] [address] [place] [address] Johnna Tinajero MD [address] [place] [address] [address] [place] [address] syncope episode Social History Tobacco [...] on file 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 Does have history of anxiety * Telephone Encounter - Kady Yang - 04/19/2020 8:02 AM CDT Pt away at [place], first year of college. On 04/11/2020 pt [...] on filedocumented in this encounter Care Teams Gill Net Stringer Relationship Specialty Start Date End Date Johnna Tinajero MD [address] [facility] [address] [place], [place] [id number] PCP - General Pediatrics 07/19/19 01/26/23 Johnna Tinajero MD [address] [facility] [address] [place], [place] [id number] 07/19/19 documented as of this encounter
--- OUTSIDE RECORDS SUMMARY | 2024-08-28 02:55 | XMS_ITS | Encounter Summary ---
Author Organization [facility] Address [address] [place] [address] Phone Care Team Providers Care Hl7 Interface Developer Name Role Phone Johnna Tinajero MD Primary Care Provider + Johnna Tinajero MD Unavailable [phone] Encounter Details Date Type Department Care Team (Late st Contact Info) Description 09/21/2020 Orders Only [facility] Pediatric Gastroenterology [facility] 2nd [place] [address] [place] [phone] Madyson Uriostegui, BAR HOST/HOSTESS 1 [facility] [address] [place] [address] Social History Tobacco Use Types [...] on file 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 Rx called in to [place]. [employer] COMMONWEALTH'S ATTORNEY documented in this encounter Plan of Treatment [...] documented as of this encounter Care Teams Hl7 Interface Developer Relationship Specialty [place] [address] [place] [address] PCP - General Pediatrics 07/19/19 01/26/23 Johnna Tinajero MD [address] [address] 07/19/19 documented as of this encounter
--- OUTSIDE RECORDS SUMMARY | 2024-08-28 02:55 | XMS_ITS | Encounter Summary ---
Author Organization [facility] Address [address] [place] [address] Care Team Providers Care Warehouse Shipping Supervisor Name Role Phone Johnna Tinajero MD Primary Care Provider + Johnna Tinajero MD Unavailable [phone] Reason for Visit * Reason Comments Vomiting Abdominal Pain Encounter Details Date Type Department Care Team (Late st Contact Info) Description 09/04/2020 4:48 PM MACHINE UMBRELLA TIPPER - 09/05/2020 1:19 AM [facility] Emergency [facility] [place] [address] Rosette Camara MD 1 [facility] [address] [place], [place] [phone] Abdominal pain (Primary Dx); Non-intractable vomiting without [...] file Legal Sex 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 MACHINE UMBRELLA TIPPER Gender Identity Not on file Sexual Orientation Not on file documented as of this encounter Last Filed Vital Signs Vital Sign Reading Time Taken Comments Blood Pressure 116/88 09/04/2020 4:44 PM MACHINE UMBRELLA TIPPER Pulse 72 09/05/2020 1:10 AM MACHINE UMBRELLA TIPPER Temperature 36.3 ??C (97.3 ??F) 09/05/2020 1:10 AM CS T Respiratory Rate 18 09/05/2020 1:10 AM MACHINE UMBRELLA TIPPER Oxygen Saturation 95% 09/04/2020 4:44 PM MACHINE UMBRELLA TIPPER Inhaled Oxygen Concentration - - Weight 94.6 kg (208 lb 8.9 oz) 09/04/2020 4:44 P M MACHINE UMBRELLA TIPPER Height - - Body Mass Index 36.94 08/21/2020 3:17 PM MACHINE UMBRELLA TIPPER Body Mass Index Percentile 98.04% 09/04/2020 4:4 4 PM MACHINE UMBRELLA TIPPER Growth Chart: [facility] (Girls, 2- 20 Years) documented in this [...] Americo Rodriguez MD - 09/05/2020 1:08 AM MACHINE UMBRELLA TIPPER Please follow up with GI tomorrow as discussed. Call first thing in the morning to confirm your appointment. Take Bentyl in the meantime for your symptoms. You can additionally take ibuprofen as needed for pain. Return to the ED for significant worsening symptoms or any other urgent concern. INE UMBRELLA TIPPER INE UMBRELLA TIPPER INE UMBRELLA TIPPER * Attachments The following attachments cannot be sent through Care Everywhere. * Abdominal Pain, Unknown Cause, (Female) ([place]) * Acute Nausea and Vomiting in Children (AfterCare(R) Instructions(ER/ED)) ([place]) documented in this encounter Medications at Time [...] sinus rhythm with sinus arrhythmia with short HI Anxiety 07/20/2019 Asthma Nausea 08/15/2019 Vomiting multiple [...] activity. By: Rosette Camara MD Time: 09/04 803 Comment: HCG neg. UA with 3+ blood, [...] Rosette Camara MD at 10/10/2020 9:46 PM MACHINE UMBRELLA TIPPER INE UMBRELLA TIPPER INE UMBRELLA TIPPER INE UMBRELLA TIPPER Associated attestation - Rosette Camara MD - 10/10/2020 9:46 PM MACHINE UMBRELLA TIPPER I have seen and examined the patient [...] BM this AM; seen blood in it. INE UMBRELLA TIPPER INE UMBRELLA TIPPER documented in this encounter Miscellaneous Notes * ED Pre-Arrival Note - Berny Moss MD - 09/04/2020 4:05 PM MACHINE UMBRELLA TIPPER Pre-Arrival Note 20yo female with RLQ abdominal pain acutely with long history of chronic abdominal pain and migraines. Had breath hydrogen test a few days ago. Not acutely ill but decreased PO intake over the past few days. Follows with GI and neurology. Coming in for concern for appendicitis. Berny Moss MD INE UMBRELLA TIPPER documented in this encounter Plan of Treatment Not on file documented as of this encounter Procedures Procedure Name Priority Date/Time Associated Diagnosis Comments US PELVIS AND OVARIAN DOPPLER LIMITED (C) ED 09/04/2020 9:39 PM MACHINE UMBRELLA TIPPER US ABDOMEN LIMITED ED 09/04/2020 9: 39 PM MACHINE UMBRELLA TIPPER URINALYSIS, MICROSCOPIC ONLY STAT 09/04/2020 6:42 PM MACHINE UMBRELLA TIPPER INFLUENZA A/B, RSV, AND COVID-19 PCR Routine 09/04/2020 6:25 PM MACHINE UMBRELLA TIPPER N. GONORRHOEAE/C. TRACHOMATIS AMPLIFICATION STAT 09/04/2020 6:25 PM MACHINE UMBRELLA TIPPER DIFFERENTIAL AUTO STAT 09/04/2020 6:2 5 PM MACHINE UMBRELLA TIPPER URINALYSIS AND REFLEX TO MICROSCOPIC AND CULTURE STAT 09/04/2020 6:25 PM MACHINE UMBRELLA TIPPER CBC WITH AUTO DIFFERENTIAL STAT 09/04/2020 6:25 PM MACHINE UMBRELLA TIPPER HCG, URINE, QUALITATIVE STAT 09/04/2020 6:25 PM MACHINE UMBRELLA TIPPER BASIC METABOLIC PANEL STAT 09/04/2020 6:25 PM MACHINE UMBRELLA TIPPER documented in this encounter Results * US Pelvis and Ovarian Doppler Limited (09/04/2020 9:39 PM MACHINE UMBRELLA TIPPER) Anatomical Region Laterality Modality Pelvis N/A Ultrasound 09/04/2020 10:4 4 PM MACHINE UMBRELLA TIPPER Impressions 09/05/2020 7:36 AM MACHINE UMBRELLA TIPPER Normal. Dictated by: Larisa Morin M.D. The radiology attending physician has personally reviewed this study, and had reviewed and/or edited this written report and agrees with it. Electronically signed by: Larisa Dolan Narrative 09/05/2020 7:36 AM MACHINE UMBRELLA TIPPER EXAMINATION: ??US PELVIS AND OVARIAN DOPPLER LIMITED [...] Abdomen Limited (Appendix only) (09/04/2020 9:39 PM MACHINE UMBRELLA TIPPER) Anatomical Region Laterality Modality Abdomen N/A Ultrasound 09/04/2020 10:0 2 PM MACHINE UMBRELLA TIPPER Impressions 09/05/2020 7:26 AM MACHINE UMBRELLA TIPPER Appendix measures slightly above upper limits of normal (6 mm), though there are no additional findings to suggest acute appendicitis. Dictated by: Larisa Morin M.D. The radiology attending physician has personally reviewed this study, and had reviewed and/or edited this written report and agrees with it. Electronically signed by: Larisa Dolan Narrative 09/05/2020 7:26 AM MACHINE UMBRELLA TIPPER EXAMINATION: US ABDOMEN LIMITED HISTORY: Abdominal pain [...] * Urinalysis, microscopic only (09/04/2020 6:42 PM MACHINE UMBRELLA TIPPER) WBC, ur 0-5 0 - 5 /HPF [facility] RBC, ur 0-2 0 - 2 /HPF [facility] Epithelial cells, squamous, ur 1-5 0 - 5 /HPF [facility] Culture Reflex Comment Reflex conditions for urine culture (WBC >10) not met. [facility] Urine 09/04/2020 6:42 PM MACHINE UMBRELLA TIPPER 09/04/2020 6:44 PM MACHINE UMBRELLA TIPPER Mayco Ovalle MD LAB URINE ORDERABLES Final Result [facility] [place] [address] * Differential, auto (09/04/2020 6:25 PM MACHINE UMBRELLA TIPPER) Neutrophil abs 4.0 1.7 - 6.5 K/cumm [facility] Imm gran abs 0.0 0.0 - 0.1 K/cumm [facility] Lymphocyte abs 2.5 0.8 - 3.3 K/cumm [facility] Monocyte abs 0.6 0.2 - 0.8 K/cumm [facility] Eosinophil abs 0.4 0.0 - 0.5 K/cumm [facility] Basophil abs 0.1 0.0 - 0.1 K/cumm [facility] Neutrophil pct 52.8 % [facility] Comment: Interpretive Data Percent cell count reference ranges are not reported, since discordance with absolute values may lead to misinterpretation of CBC data. Current Interpretive Data was last revised on 2017. Imm gran pct 0.4 % [facility] Comment: Interpretive Data Percent cell count reference ranges are not reported, since discordance with absolute values may lead to misinterpretation of CBC data. Current Interpretive Data was last revised on 2017. Lymphocyte pct 33.2 % [facility] Comment: Interpretive Data Percent cell count reference ranges are not reported, since discordance with absolute values may lead to misinterpretation of CBC data. Current Interpretive Data was last revised on 2017. Monocyte pct 7.8 % [facility] Comment: Interpretive Data Percent cell count reference ranges are not reported, since discordance with absolute values may lead to misinterpretation of CBC data. Current Interpretive Data was last revised on 2017. Eosinophil pct 4.9 % [facility] Comment: Interpretive Data Percent cell count reference ranges are not reported, since discordance with absolute values may lead to misinterpretation of CBC data. Current Interpretive Data was last revised on 2017. Basophil pct 0.9 % [facility] Comment: Interpretive Data Percent cell count reference ranges are not reported, since discordance with absolute values may lead to misinterpretation of CBC data. Current Interpretive Data was last revised on 2017. Blood specimen (specimen) 09/04/2020 6:25 PM MACHINE UMBRELLA TIPPER 09/04/2020 6:31 PM MACHINE UMBRELLA TIPPER Mayco Ovalle MD LAB BLOOD ORDERABLES Final Result [facility] [place] [address] * Basic metabolic panel (09/04/2020 6:25 PM MACHINE UMBRELLA TIPPER) Sodium 135 135 - 145 mmol/L [facility] Potassium, pl 4.1 3.3 - 4.9 mmol/L [facility] Comment:Hemolyzed; results m ay be falsely elevated. Chloride 104 97 - 110 mmol/L [facility] CO2 25 22 - 32 mmol/L [facility] Anion gap 6 2 - 15 mmol/L [facility] BUN 11 8 - 25 mg/dL [facility] Creatinine 0.91 0.40 - 1.00 mg/dL [facility] Glucose 79 70 - 199 mg/dL [facility] Comment: Interpretive Data Fasting glucose >/= 126 [...] 2017. Calcium 9.2 8.5 - 10.3 mg/dL [facility] Blood specimen (specimen) 09/04/2020 6:25 PM MACHINE UMBRELLA TIPPER 09/04/2020 6:31 PM MACHINE UMBRELLA TIPPER Mayco Ovalle MD LAB BLOOD ORDERABLES Final Result [facility] [place] [address] * (ABNORMAL) CBC with auto differential (09/04/2020 6:25 PM MACHINE UMBRELLA TIPPER) WBC 7.6 3.8 - 9.9 K/cumm [facility] Hgb 14.1 11.9 - 15.5 g/dL [facility] Hct 42.4 35.6 - 45.5 % [facility] Plt 409(H) 150 - 400 K/cumm [facility] MPV 9.6 9.1 - 12.3 fL [facility] RBC 4.84 3.90 - 5.20 M/cumm [facility] MCV 87.6 81.3 - 96.4 fL [facility] MCH 29.1 27.1 - 33.3 pg [facility] MCHC 33.3 32.3 - 35.7 g/dL [facility] RDW CV 13.2 11.1 - 14.9 % [facility] RDW SD 42.2 35.7 - 48.1 fL [facility] NRBC abs 0.00 0.00 - 0.01 K/cumm [facility] Blood specimen (specimen) 09/04/2020 6:25 PM MACHINE UMBRELLA TIPPER 09/04/2020 6:31 PM MACHINE UMBRELLA TIPPER us Mayco Ovalle MD LAB BLOOD ORDERABLES Final Result [facility] [place] [address] * N. gonorrhoeae/C. trachomatis Amplification Urine (09/04/2020 6:25 PM MACHINE UMBRELLA TIPPER) C. trachomatis Not Detected Not Detected [facility] Comment:Testing performed by : [facility], [address] [place]., [address] N. gonorrhoeae Not Detected Not Detected [facility] Comment: Interpretive Data Testing performed by the [facility]. This assay detects Chlamydia trachomatis and [...] last revised on 2018. Testing performed by: [facility], [address] [facility], [place]., [address] Urine (None) 09/04/2020 6:25 PM MACHINE UMBRELLA TIPPER 09/04/2020 8:47 PM MACHINE UMBRELLA TIPPER Mayco Ovalle MD LAB MICROBIOLOGY - G ENERAL ORDERABLES Final Result Performing Organization Address City/[facility]/ZIP Co de Phone Number [facility] [place] [address] * hCG, urine, qualitative (09/04/2020 6:25 PM MACHINE UMBRELLA TIPPER) HCG, ur Negative Negative [facility] Urine 09/04/2020 6:25 PM MACHINE UMBRELLA TIPPER 09/04/2020 6:31 PM MACHINE UMBRELLA TIPPER Mayco Ovalle MD LAB URINE ORDERABLES Final Result Performing Organization Address [facility] [place] [address] * (ABNORMAL) Urinalysis reflex to microscopic and culture Urine (09/04/2020 6:25 PM MACHINE UMBRELLA TIPPER) Color, ur Yellow Yellow [facility] Clarity, ur Clear Clear [facility] Specific gravity, ur 1.020 1.010 - 1.025 [facility] pH, urine 5.5 [facility] Protein, ur ql Trace Negative [facility] Glucose, ur ql Negative Negative [facility] Ketones, ur 1+(A) Negative [facility] Bilirubin, ur Negative Negative [facility] Blood, ur 3+(A) Negative [facility] Urobilinogen, ur 0.2 <2.0 mg/dL [facility] Nitrite, ur Negative Negative [facility] Leukocyte esterase, ur Negative Negative [facility] UA reflex comment Reflex to microscopic UA will be performed. [facility] Urine 09/04/2020 6:25 PM MACHINE UMBRELLA TIPPER 09/04/2020 6:32 PM MACHINE UMBRELLA TIPPER Narrative [facility] - 09/04/2020 6:42 PM MACHINE UMBRELLA TIPPER ?? Urine pH is affected by diet, medications, systemic acid-base disturbances, and renal tubular function. ??pH may affect urinary stone formation. ??For example, urine pH below 6.0 may help reduce the tendency for calcium phosphate stones and pH greater than 6.0 may reduce the tendency for uric acid stone formation. Source: [facility] [employer]. Last revised 09-10-2017 Mayco Ovalle MD LAB MICROBIOLOGY - G ENERAL ORDERABLES Final Result [facility] Department [place] [address] * Influenza A/B, RSV, and COVID-19 PCR Nasopharyngeal (09/04/2020 6:25 PM MACHINE UMBRELLA TIPPER) COVID-19 RNA Negative Negative [facility] Comment: Interpretive data: This test is performed using the [employer] Xpert Xpress assay. This is a real-time [...] revised 2020. Influenza A RNA Negative Negative [facility] Influenza B RNA Negative Negative [facility] RSV RNA Negative Negative [facility] Comment: Interpretive data: This test is performed using the [employer] Xpert Assay. This is a multiplex, real- time reverse transcriptase PCR assay that detects influenza A, influenza B, and respiratory syncytial virus RNA. This assay has been cleared by the [place] Food and Drug Administration, and its performance characteristics have been verified by the performing laboratory. ?? Interpretive data last revised 2020. First COVID-19 test? Yes [facility] Employeed in healthcare? No [facility] status? Unknown [facility] Group care resident? No [facility] Hospitalized? No [facility] Is patient in ICU? No [facility] Symptomatic as defined by CDC? Yes [facility] Nasopharyngeal 09/04/2020 6: 25 PM MACHINE UMBRELLA TIPPER 09/04/2020 6:31 PM MACHINE UMBRELLA TIPPER Narrative [facility] - 09/04/2020 7:10 PM MACHINE UMBRELLA TIPPER Date of symptom onset->09/01/20 Known exposure to confirmed or suspected COVID-19 case?->No Mayco Ovalle MD LAB MICROBIOLOGY - G ENERAL ORDERABLES Final Result [facility] [place] [address] documented in this encounter Visit Diagnoses Diagnosis [...] For 1 dose Given 09/05/2020 12:13 AM MACHINE UMBRELLA TIPPER 20 mg ibuprofen (ADVIL,MOTRIN) tablet/capsule 600 mg 600 mg, oral, Once, On Thu09/04/20 at 2348, For 1 dose Given 09/05/2020 12:13 AM MACHINE UMBRELLA TIPPER 600 mg lidocaine 1% buffered 1 % (0.5 mL) injection - ADS Override Pull Starting on Thu09/04/20 at 1756, For 1 dose, Created by cabinet override Given 09/04/2020 6:44 PM MACHINE UMBRELLA TIPPER 0.5 mL ondansetron (ZOFRAN) injection 4 mg 4 mg, intravenous, Administer over 15 Minutes, Once, On Thu09/04/20 at 1747, For 1 dose, Maximum dose = 4 mg Given 09/04/2020 6:40 PM MACHINE UMBRELLA TIPPER 4 mg sodium chloride 0.9% bolus 1,000 mL 1,000 mL, intravenous, Once, On Thu09/04/20 at 1855, For 1 dose New Bag 09/04/2020 6:44 PM MACHINE UMBRELLA TIPPER 1,000 mL documented in this encounter Discontinued Medications Medication Sig Discontinue Reason Start Date End Da te metoclopramide (REGLAN) 10 mg tablet Take 1 tablet (10 mg total) by mouth every 6 (six) hours Reorder 09/05/2020 09/05/2020 documented as of this encounter Active and Recently Administered Medications Times are shown in MACHINE UMBRELLA TIPPER. Scheduled Medication Order 09/03/2020 09/04/2020 09/05/2020 dicyclomine [...] 4 mg 1840 (Given - Provider: Nelly yNe RN) sodium chloride 0.9% bolus 1,000 mL [...] COVID: Suspected 09/04/2020 09/04/2020 09/04/2020 7:11 PM MACHINE UMBRELLA TIPPER Respiratory Infection (JASMINE), contact + droplet Comment:Automatically added due to negative COVID-19 result. 09/04/2020 09/04/202009/1809/18/2020 3:0 7 AM MACHINE UMBRELLA TIPPER documented as of this encounter Care Teams Warehouse Shipping Supervisor Relationship Specialty Start Date End Date Johnna Tinajero MD [address] [address] PCP - General Pediatrics 07/19/19 01/26/23 Johnna Tinajero MD [address] [address] 07/19/19 documented as of this encounter
--- OUTSIDE RECORDS SUMMARY | 2024-08-28 02:55 | XMS_ITS | Encounter Summary ---
Author Organization [facility] Address [address] [place] [address] Phone Care Team Providers Care Online Marketing Analyst Name Role Phone Johnna Tinajero MD Primary Care Provider + Johnna Tinajero MD Unavailable [phone] Encounter Details Date Type Department Care Team (Late st Contact Info) Description 08/01/2020 8:30 AM HOGSHEAD INSPECTOR Telemedicine [facility] Pediatric Gastroenterology [facility] 2nd [place] [address] [place] [address] Brandee Solorzano, RD 1 [facility] [address] [place] [address] Social History Tobacco Use Types [...] on file Legal Sex 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 HOGSHEAD INSPECTOR Gender Identity Not on file Sexual Orientation Not on file documented as of this encounter Patient Instructions * Patient Instructions* Brandee Solorzano RD - 08/01/2020 8:30 AM HOGSHEAD INSPECTOR Plan ?? Discussed lifestyle habits for gut [...] straw ?? Follow up in 3-4 months HEAD INSPECTOR documented in this encounter Progress Notes * Brandee Solorzano RD - 08/01/2020 8:30 AM CST Nutrition Note for Telemedicine Encounter This was a telemedicine visit with Nina Coyne which took place via Telephone . During the visit, I was located at home and the patient was located at home in the [facility]. The patient visit started at 0833 and [...] 02/27 worsened migraine Social History Lives in [place], [place] Anthropometrics Wt Readings from Last 3 Encounters: 11/03/19 99.6 kg (219 lb 9.3 oz) (99 %, Z= 2.21)* 10/25/19 100.3 kg (221 lb 1.6 oz) (99 %, Z= 2.22)* 10/24/19 101.6 kg (223 lb 15.8 oz) (99 %, Z= 2.25)* * Growth percentiles are based on [facility] (Girls, 2-20 Years) data. Ht Readings from Last 3 Encounters: 11/03/19 163 cm (5' 4.17 ) (50 %, Z= -0.01)* 10/05/19 162.5 cm (5' 3.98 ) (47 %, Z= -0.09)* 09/13/19 161.5 cm (5' 3.58 ) (41 %, Z= -0.24)* * Growth percentiles are based on [facility] (Girls, 2-20 Years) data. There is no [...] Running/cardio daily Sress - Nina is enjoying [facility] [employer] States the stress from school is not [...] - IN PROGRESS Dietitian: Brandee Solorzano RD [facility] LD HEAD INSPECTOR documented in this encounter Plan of Treatment Not on file documented as of this encounter Visit Diagnoses Not on filedocumented in this encounter Care Teams Online Marketing Analyst Relationship Specialty Start Date End Date Johnna Tinajero MD [address] [address] PCP - General Pediatrics 07/19/19 01/26/23 Johnna Tinajero MD [address] [address] 07/19/19 documented as of this encounter
--- OUTSIDE RECORDS SUMMARY | 2024-08-28 02:55 | XMS_ITS | Encounter Summary ---
Author Organization [facility] Address [address] [place] [address] [address] [place] [address] Phone Care Team Providers Care Vp Security Name Role Phone Johnna Tinajero MD Primary Care Provider + Johnna Tinajero MD Unavailable [phone] Reason for Visit * Reason Onset Date Comments Letter for School/Work 08/02/2020 Encounter Details Date Type Department Care Team (Late st Contact Info) Description 08/02/2020 Telephone [facility] [address] [facility] [address] [place] [address] Johnna Tinajero MD [address] [place] [address] [address] [place] [address] Letter for School/Work Social History [...] on file Legal Sex 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 COIN MACHINE ASSEMBLER Gender Identity Not on file Sexual Orientation Not on file documented as of this encounter Miscellaneous Notes * Telephone Encounter - Davina Prater RN - 08/02/2020 10:53 AM CST Concussion screen reviewed with PCP. Okay to return to course work. Letter written and signed by PCP. LM to to get school's fax number. MACHINE ASSEMBLER * Telephone Encounter - Davina Prater RN - 08/02/2020 7:49 AM COIN MACHINE ASSEMBLER ----- Message from Nina Coyne sent at 08/01/2020 6:45 PM COIN MACHINE ASSEMBLER ----- Regarding: RE: Visit Follow-Up Question Contact: No. We will just need a note releasing her for the [employer] so that she can finish up her coursework for the semester. They had put her on a pause while she recovered. I think they will want documentation from the doctor. MACHINE ASSEMBLER documented in this encounter Plan of Treatment Not on file documented as of this encounter Visit Diagnoses Not on filedocumented in this encounter Care Teams Vp Security Relationship Specialty [place] [address] [place] [address] PCP - General Pediatrics 07/19/19 01/26/23 Johnna Tinajero MD [address] [address] 07/19/19 documented as of this encounter
--- OUTSIDE RECORDS SUMMARY | 2024-08-28 02:55 | XMS_ITS | Encounter Summary ---
Author Organization [facility] Address [address] [place] [address] Phone Care Team Providers Care Receiving Weigher Name Role Phone Johnna Tinajero MD Primary Care Provider + Johnna Tinajero MD Unavailable [phone] Encounter Details Date Type Department Care Team (Late st Contact Info) Description 06/12/2020 Orders Only [facility] Pediatric Gastroenterology [facility] 2nd [place] [address] [place] [address] Madyson Uriostegui, FREIGHT HUSTLER 1 [facility] [address] [place], [place] [id number] Social History Tobacco Use Types Packs/Day Years [...] file Legal Sex Female 11:42 PM MANAGER REIMBURSEMENT Gender Identity Not on file Sexual Orientation Not on file documented as of this encounter Plan of Treatment Not on file documented as of this encounter Visit Diagnoses Not on filedocumented in this encounter Additional Health Concerns Infection Onset Date Last Indicated Resolved Time COVID: Suspected 09/04/2020 09/04/2020 09/04/2020 7:11 PM MANAGER REIMBURSEMENT Respiratory Infection (JASMINE), contact + droplet Comment:Automatically added due to negative COVID-19 result. 09/04/2020 09/04/2020 09/18/2020 3:0 7 AM MANAGER REIMBURSEMENT documented as of this encounter Care Teams Receiving Weigher Relationship Specialty Start Date End Date Johnna Tinajero MD [address] [address] PCP - General Pediatrics 07/19/19 01/26/23 Johnna Tinajero MD [address] [address] 07/19/19 documented as of this encounter
--- OUTSIDE RECORDS SUMMARY | 2024-08-28 02:55 | XMS_ITS | Encounter Summary ---
Author Organization [facility] Address [address] [place] [address] Phone Care Team Providers Care Scientific Database Curator Name Role Phone Johnna Tinajero MD Primary Care Provider + Johnna Tinajero MD Unavailable Encounter Details Date Type Department Care Team (Late st Contact Info) Description 09/05/2020 Telephone [facility] Pediatric Gastroenterology [facility] 2nd [place] [address] [place] [address] Madyson Uriostegui, MAP CLERK 1 [facility] [address] [place] [address] Social History Tobacco Use Types [...] on file Legal Sex Female 11:42 PM FURNITURE MOVER HELPER Gender Identity Not on file Sexual Orientation Not on file documented as of this encounter Miscellaneous Notes * Telephone Encounter - Patrica Peñaloza RN - 09/05/2020 9:48 AM CST See other call note. ITURE MOVER HELPER * Telephone Encounter - Macy Morin RMA - 09/05/2020 9:00 AM FURNITURE MOVER HELPER Mom said she just missed a call from [employer]. I let her know what she said. She said she has some questions about all the medications they were sent home with from the ED. ITURE MOVER HELPER * Telephone Encounter - Macy Morin RMA - 09/05/2020 8:58 AM FURNITURE MOVER HELPER FYI: ?? LM for mom with positive SIBO results, also sent [employer] message. Ordered Rifaximin TID. ?? Mom called [...] to call back to discuss. ??8:47 AM. ITURE MOVER HELPER * Telephone Encounter - Abner Charlton - [...] advised mom I would call her back. ITURE MOVER HELPER documented in this encounter Plan of Treatment Not on file documented as of this encounter Visit Diagnoses Not on filedocumented in this encounter Additional Health Concerns Infection Onset Date Last Indicated Resolved Time Respiratory Infection (JASMINE), contact + droplet Comment:Automatically added due to negative COVID-19 result. 09/04/2020 09/04/2020 09/18/2020 3: 07 AM FURNITURE MOVER HELPER documented as of this encounter Care Teams Scientific Database Curator Relationship Specialty Start Date End Date Johnna Tinajero MD [address] [address] PCP - General Pediatrics 07/19/19 01/26/23 Johnna Tinajero MD [address] [address] 07/19/19 documented as of this encounter
--- OUTSIDE RECORDS SUMMARY | 2024-08-28 02:55 | XMS_ITS | Encounter Summary ---
Author Organization [facility] Address [address] [place] [address] [address] [place] [address] Phone Care Team Providers Care Snow Plow Operator Name Role Phone Johnna Tinajero MD Primary Care Provider + Johnna Tinajero MD Unavailable [phone] Reason for Visit * Reason Comments Abdominal Pain Encounter Details Date Type Department Care Team (Late st Contact Info) Description 09/04/2020 3:30 PM GENETICS NURSE Office Visit [facility] [address] [facility] [address] [place] [address] Johnna Tinajero MD [address] [place] [address] Chronic abdominal pain (Primary Dx); Abdominal [...] on file Legal Sex Female 11:42 PM GENETICS NURSE Gender Identity Not on file Sexual Orientation Not on file documented as of this encounter Last Filed Vital Signs Vital Sign Reading Time Taken Comments Blood Pressure 128/88 09/04/2020 3:37 PM GENETICS NURSE Pulse - - Temperature 36.1 ??C (97 ??F) 09/04/2020 3:37 PM GENETICS NURSE Respiratory Rate - - Oxygen Saturation - - Inhaled Oxygen Concentration - - Weight 94.3 kg (207 lb 14.4 oz) 09/04/2020 3:37 PM GENETICS NURSE Height - - Body Mass Index 36.83 08/21/2020 3:17 PM GENETICS NURSE Body Mass Index Percentile 97.99% 09/04/2020 3:3 7 PM GENETICS NURSE Growth Chart: [facility] (Girls, [...] spokewith Dr. Moss in the ER at [facility] and she will go there now for [...] and diagnosis, referral Due to the [facility] emergency, extra time was required to conduct a pre- visit phone call to screen the patient for symptoms, provide instructions on social distancing during the visit, check patients for symptoms upon arrival, apply and remove personal protective equipment, and additional cleaning of the examination/procedure/imaging rooms, equipment and supplies. TICS NURSE documented in this encounter Plan of Treatment Not on file documented as of this encounter Procedures Procedure Name Priority Date/Time Associated Diagnosis Comments POCT URINALYSIS NON AUTO Routine 09/04/2020 4:06 PM GENETICS NURSE Abdominal pain, acute, right lower quadrant Recurrent vomiting POCT URINE CULTURE Routine 09/04/2020 3: 06 PM GENETICS NURSE Abdominal pain, acute, right lower quadrant documented in this encounter Results * (ABNORMAL) POCT URINALYSIS NON AUTO (09/04/2020 4:06 PM GENETICS NURSE) Color, Urine, POC Yellow Clarity, ur, POC Clear Clear Glucose, ur, POC Negative Negative mg/dL Bilirubin, ur, POC Negative Negative, Small, Moderate, Large Ketones, ur, POC Negative Negative Specific [place], POC 1.025 1.005 - 1.030 Blood, ur, POC 1+(A) Negative pH, ur, POC 5.0 5.0 - 8.0 Protein, ur, POC Negative Negative Urobilinogen, Urine, POC Comment:normal Leukocytes, ur, POC Negative Negative Nitrite, ur, POC Negative Negative Appearance, fld Clear Clear Urine, clean voided 09/04/2020 4:06 PM GENETICS NURSE Johnna Tinajero MD POINT OF CARE TEST ORDER KATHERINE Final Result * POCT URINE CULTURE (09/04/2020 3:06 PM GENETICS NURSE) Urine Culture, POC NEGATIVE Culture, POC NEGATIVE Urine, clean voided 09/04/2020 3:06 PM GENETICS NURSE Johnna Tinajero MD POINT OF CARE TEST ORDER KATHERINE Final Result documented in this encounter Visit Diagnoses Diagnosis Chronic abdominal pain- Primary Abdominal pain, unspecified site Abdominal pain, acute, right lower quadrant Recurrent vomiting Anxiety Anxiety state, unspecified Chronic nausea Nausea alone History of migraine headaches documented in this encounter Care Teams Snow Plow Operator Relationship Specialty Start Date End Date Johnna Tinajero MD [address] [address] PCP - General Pediatrics 07/19/19 01/26/23 Johnna Tinajero MD [address] [address] 07/19/19 documented as of this encounter
--- OUTSIDE RECORDS SUMMARY | 2024-08-28 02:55 | XMS_ITS | Encounter Summary ---
Author Organization [facility] Address [address] [place] [address] Phone Care Team Providers Care Curing Press Operator Name Role Phone Johnna Tinajero MD Primary Care Provider + Johnna Tinajero MD Unavailable [phone] Encounter Details Date Type Department Care Team (Late st Contact Info) Description 06/13/[address] [facility] Pediatric Gastroenterology 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
--- OUTSIDE RECORDS SUMMARY | 2024-08-28 02:55 | XMS_ITS | Encounter Summary ---
Author Organization [facility] Address [address] [place] [address] Phone Care Team Providers Care Trial Justice Name Role Phone Johnna Tinajero MD Primary Care Provider + Johnna Tinajero MD Unavailable [phone] Encounter Details Date Type Department Care Team (Late st Contact Info) Description 10/23/2020 Telephone [facility] Pediatric Gastroenterology [facility] 2nd [place] [address] [place] [address] Leonor Mahmood MD 1 [facility] [address] [place] [address] Social History Tobacco Use Types [...] on file Legal Sex Female 11:42 PM LAYBOY OPERATOR Gender Identity Not on file Sexual Orientation Not on file documented as of this encounter Miscellaneous Notes * Telephone Encounter - Arminda Salazar RN - 10/24/2020 8:18 AM LAYBOY OPERATOR Appears that she may be admitted for observation from the ED. Will monitor and call later for an update if not admitted to the floor. OY OPERATOR * Telephone Encounter - Leonor Mahmood MD - 10/23/2020 9:01 PM LAYBOY OPERATOR Mom called because Nina had streaks of blood in her vomit this evening. She has not been keeping down fluids today. Recommended coming to the ER for evaluation tonight. OY OPERATOR documented in this encounter Plan of Treatment Not on file documented as of this encounter Visit Diagnoses Not on filedocumented in this encounter Care Teams Trial Justice Relationship Specialty Start Date End Date Johnna Tinajero MD [address] [address] PCP - General Pediatrics 07/19/19 01/26/23 Johnna Tinajero MD [address] [address] 07/19/19 documented as of this encounter
--- OUTSIDE RECORDS SUMMARY | 2024-08-28 02:55 | XMS_ITS | Encounter Summary ---
Author Organization [facility] Address [address] [place] [address] Phone Care Team Providers Care Clinical Laboratory Technician Name Role Phone Johnna Tinajero MD Primary Care Provider + Johnna Tinajero MD Unavailable [phone] Reason for Visit * Reason Onset Date Comments Scheduling Appointments 07/23/2020 Encounter Details Date Type Department Care Team (Late st Contact Info) Description 07/23/2020 Telephone [facility] Pediatric Gastroenterology [facility] 2nd [place] [address] [place] [address] Brandee Solorzano, RD 1 [facility] [address] [place] [address] Scheduling Appointments Social History Tobacco [...] on file Legal Sex Female 11:42 PM EARRING MAKER Gender Identity Not on file Sexual Orientation Not on file documented as of this encounter Miscellaneous Notes * Telephone Encounter - Abner Charlton - 08/01/2020 8:34 AM CST Brandee, Did you talk to the mom today? Just wanted to make sure I schedule the correct date. Maryan Levine ING MAKER * Telephone Encounter - Brandee Solorzano RD - 08/01/2020 8:11 AM CST Can one of you please make a phone visit encounter so I can document there and mom can see the note? ING MAKER * Telephone Encounter - Brandee Solorzano RD - 08/01/2020 7:09 AM CST Can one of you please make a phone visit encounter so I can document there and mom can see the note? ING MAKER * Telephone Encounter - Brandee Solorzano RD - 07/30/2020 8:19 AM CST Per Mercedes: if the child did not sign a hippa giving them permission then we can???t share. You should direct them to HIM/Medical Records. Can you please let the family know? ING MAKER ING MAKER * Telephone Encounter - Macy Morin RMA - 07/23/2020 3:50 PM EARRING MAKER I called mom back she would like to keep the 08/01 appointment @ 8:30 for a phone call only. Mom said please call [employer] cell phone @ [phone] for this appointment. Mom also wanted to make sure shecould get a notice in my chart of what was talked about at the visit. ING MAKER ING MAKER * Telephone Encounter - Brandee Solorzano RD - 07/23/2020 3:38 PM CST I'm afraid there's nothing I can do except keep the appointment time and schedule a phone call instead. If there isn't a Thursday slot available, we can work out another time. Generally Thursday afternoons, Thursday afternoons, all day are available. Let me know what the family decides. Thanks! ING MAKER * Telephone Encounter - Macy Morin RMA - 07/23/2020 3:06 PM EARRING MAKER I called Mom and let her know we were unable to do 08/01 appointment by zoom. It would have to be inperson because they live in [place]. The first available appointment was not be until 09/25. The patient is supposed to go back to school 09/10. Mom said she really wants her to be seen before going back. Is there any day that would work for you to have the patient come person before 09/10? ING MAKER documented in this encounter Plan of Treatment Not on file documented as of this encounter Visit Diagnoses Not on filedocumented in this encounter Care Teams Clinical Laboratory Technician Relationship Specialty Start Date End Date Johnna Tinajero MD [address] [facility] [address] [place] [address] PCP - General Pediatrics 07/19/19 01/26/23 Johnna Tinajero MD [address] [facility] [address] [place], [place] [address] 07/19/19 documented as of this encounter
--- OUTSIDE RECORDS SUMMARY | 2024-08-28 02:55 | XMS_ITS | Encounter Summary ---
Author Organization [facility] Address [address] [place] [address] Phone Care Team Providers Care Superintendent Landfill Operations Name Role Phone Johnna Tinajero MD Primary Care Provider + Johnna Tinajero MD Unavailable [phone] Reason for Visit * Reason Onset Date Comments Scheduling Appointments 04/05/2020 Encounter Details Date Type Department Care Team (Late st Contact Info) Description 04/05/2020 Telephone [facility] Pediatric Gastroenterology [facility] 2nd [place] [address] [place] [address] Brandee Solorzano, RD 1 [facility] [address] [place] [address] Scheduling Appointments Social History Tobacco [...] on file Legal Sex Female 11:42 

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
--- OUTSIDE RECORDS SUMMARY | 2024-08-28 02:55 | XMS_ITS | Encounter Summary ---
Author Organization [facility] Healthcare Address [address] [place] [address] Care Team Providers Care Commercial Banker Name Role Phone Johnna Tinajero MD Primary Care Provider + Johnna Tinajero MD Unavailable [phone] Reason for Visit * Reason Comments Vomiting Encounter Details Date Type Department Care Team (Late st Contact Info) Description 10/23/2020 11:52 PM COURSEWARE DEVELOPER - 10/27/2020 1:28 PM [facility] Hospital Encounter [facility] [address] [place] [address] Madyson Ramirez MD [id number] [facility] [address] [place], [place] [id number] Klaudia Meneses MD [id number] [place] [address] Marni Dial MD [address] [address] Dehydration (Primary Dx); Abdominal pain; Hematemesis with [...] on file Legal Sex Female 11:42 PM COURSEWARE DEVELOPER Gender Identity Not on file Sexual Orientation Not on file documented as of this encounter Last Filed Vital Signs Vital Sign Reading Time Taken Comments Blood Pressure 96/69 10/27/2020 11:12 AM COURSEWARE DEVELOPER Pulse 80 10/27/2020 11:12 AM COURSEWARE DEVELOPER Temperature 36.6 ??C (97.9 ??F) 10/27/2020 11:[address] Respiratory Rate 14 10/27/2020 11:12 AM COURSEWARE DEVELOPER Oxygen Saturation 98% 10/27/2020 11:12 AM COURSEWARE DEVELOPER Inhaled Oxygen Concentration - - Weight 98 kg (216 lb 0.8 oz) 10/24/2020 2:30 AM COURSEWARE DEVELOPER Height 160 cm (5' 2.99 ) 10/24/2020 2:30 AM COURSEWARE DEVELOPER Body Mass Index 38.28 10/24/2020 2:30 AM COURSEWARE DEVELOPER Body Mass Index Percentile 98.46% 10/24/2020 2:3 0 AM COURSEWARE DEVELOPER Growth Chart: [facility] [...] Care Physician at Discharge: Johnna Tinajero MD [phone] Admission Date: 10/23/2020 Discharge Date: 10/27/2020 Admission Location: [facility] Problems/Diagnoses: Principal Problem: Vomiting Active Problems: Dehydration Resolved Problems: Hematemesis DETAILS OF HOSPITAL STAY Presenting Problem/History of Present Illness: Nina is an 20yo female with past medical history of SIBO (small intestine bacterial overgrowth syndrome), chronic abdominal pain with vomiting, migraines, anxiety and depression. She presents to [facility] ED at the recommendation of her GI [...] tinged. She was advised to come to [facility] for further workup and management of possible [...] [facility] [address] Contact Information for Follow-ups [facility] (All Locations) Next Steps: Follow up Comments: Penicillin allergy - skin testing Questions: Please select the performing region: [facility] (All Locations) # of visits: 1 Referral Status: Pending Authorization Yolis Randle M.D. PGY-1, Pediatrics [facility] Cosigned by Marni Dial MD at 10/28/2020 8:35 PM COURSEWARE DEVELOPER SEWARE DEVELOPER SEWARE DEVELOPER SEWARE DEVELOPER Associated attestation - Marni Dial MD - 10/28/2020 8:35 PM COURSEWARE DEVELOPER I have seen and examined the patient [...] North MD PhD - 10/25/2020 7:32 PM COURSEWARE DEVELOPER Nina Coyne was admitted with a documented allergy to Penicillin. Based on history and chart review, patient was referred to allergy clinic for potential removal of documented allergy as an outpatient. Documented allergy to Penicillin was not removed from Nina Coyne's chart. SEWARE DEVELOPER documented in this encounter Medications at Time [...] Date of Visit: 10/26/20 Time of Visit: [id number] CPT Code: 60493 Individual Intervention with patient and/or family ICD-10 Diagnosis: F41.8 Other Specified Anxiety Disorder Visit Type: Individual intervention Patient present: Yes Others present in session: Patient's mother and Armida Dennis MA, Psychology Student Location of Care: At Bedside Nina Coyne is an 20 y.o. female with a history of small intestine bacteria overgrowth syndrome (SIBO). She was admitted to [facility] on 10/23/20 for an acute worsening of abdominal pain and vomiting symptoms. The [facility] Psychology Service was consulted by the [facility] Gastroenterology Service to provide support and coping [...] that she knew she was behind. This church secretary encouraged Nina and her mother to set small, measurable goals in order to achieve the larger goal set by the medical team. This may look like using a timer to encourage regular drinking throughout the time limit. This church secretary also reviewed pain management strategies discussed during previous sessions. Please see the recommendation section below. This church secretary discussed the importance of engaging in cognitive [...] or concerns, . Sima Ramirez PSY.D. Pediatric Historical Manuscripts Curator Department of Psychology [facility] Note not shared: Privacy Cosigned by Carol Lambert, PhD at 10/29/2020 1:14 PM COURSEWARE DEVELOPER SEWARE DEVELOPER SEWARE DEVELOPER Associated attestation - Carol Lambert, PhD - 10/29/2020 1:14 PM COURSEWARE DEVELOPER I attest that I have reviewed this [...] Avoid NSAIDs Yolis Randle M.D. PGY-1, Pediatrics [facility] Cosigned by Marni Dial MD at 10/27/2020 7:29 PM COURSEWARE DEVELOPER SEWARE DEVELOPER SEWARE DEVELOPER Associated attestation - Marni Dial MD - 10/27/2020 7:29 PM COURSEWARE DEVELOPER I have seen and examined the patient [...] at this time. Meera North MD PhD SEWARE DEVELOPER * Yolis Randle MD - 10/25/2020 1:26 [...] Avoid NSAIDs Yolis Randle M.D. PGY-1, Pediatrics [facility] Cosigned by Klaudia Meneses MD at 10/26/2020 6:58 PM COURSEWARE DEVELOPER SEWARE DEVELOPER SEWARE DEVELOPER Associated attestation - Klaudia Meneses MD - 10/26/2020 6:58 PM COURSEWARE DEVELOPER I have seen and examined the patient [...] Coyne (Patient) Vicki Coyne (Mother) Visit Type 11899 Location of Care [facility] 11th Floor Diagnosis R10.9 Abdominal Pain Informed Consent: Nina provided verbal consent for her mother to receive updates and recommendations during today's session. Presenting Concerns: Nina Coyne is an 20 y.o. female with a medical history significant for small intestine bacteria overgrowth syndrome (SIBO). She was admitted to [facility] on 10/23/20 for an acute worsening of abdominal pain and vomiting symptoms. The [facility] Psychology Service was consulted by the [facility] Gastroenterology Service to provide support and coping [...] soft, mild foods throughout the day. [facility] not identified a specific diet. [...] concerns. Cailin Lovell, Ph.D. Licensed Pediatric Psychologist [place] License# [id number] Call / Text: [phone] SEWARE DEVELOPER SEWARE DEVELOPER SEWARE DEVELOPER SEWARE DEVELOPER documented in this encounter H&P Notes * Charla Valdes MD - 10/24/2020 6:09 AM CST Pediatric History and Physical Subjective Patient is a 20 y.o. female with chief complaint of intractable vomiting. HPI: Nina is an 20yo female with past medical history of SIBO (small intestine bacterial overgrowth syndrome), chronic abdominal pain with vomiting, migraines, anxiety and depression. She presents to [facility] ED at the recommendation of her GI [...] tinged. She was advised to come to [facility] for further workup and management of possible [...] rhythm with sinus arrhythmia with short [place] ??? Anxiety 07/20/2019 ??? Asthma ??? Nausea [...] college in the fall and joined a [employer] but has been home since mid August [...] Klaudia Meneses MD at 10/31/2020 2:33 PM COURSEWARE DEVELOPER SEWARE DEVELOPER SEWARE DEVELOPER SEWARE DEVELOPER Associated attestation - Klaudia Meneses MD - 10/31/2020 2:33 PM COURSEWARE DEVELOPER I have seen and examined the patient [...] Date of Consult: 10/24/20 Time of Consult: [id number] CPT Code: 88875 Diagnostic Interview for 45 minutes ICD-10 Diagnosis: F41.8 Other Specified Anxiety Disorder Reason for Consult: Assessment of emotional functioning and Coping with hospitalization and pain Nina Coyne is an 20 y.o. female with a history of small intestine bacteria overgrowth syndrome (SIBO). She was admitted to [facility] on 10/23/20 for an acute worsening of abdominal pain and vomiting symptoms. The [facility] Psychology Service was consulted by the [facility] Gastroenterology Service to provide support and coping [...] Psychology may be shared with other health managed care specialist participating in the patient's care at [facility]; the family denied any concerns about this.The [...] for nausea and pain. Nina presented to [facility] after noticing her emesis appeared to be [...] expected time frames. Educational History Nina attends [employer]. She reported that she lives on campus and has also joined a [employer]. She indicated she is doing well in [...] overgrowth syndrome (SIBO). She was admitted to [facility] on 10/23/20 for an acute worsening of abdominal pain and vomiting symptoms. The [facility] Psychology Service was consulted by the [facility] Gastroenterology Service to provide support and coping [...] questions or concerns. Sima Ramirez PSY.D. Pediatric Historical Manuscripts Curator Department of Psychology [facility] Note not shared: Privacy Cosigned by Emperatriz Diop PSY.D. at 10/25/2020 9:50 AM COURSEWARE DEVELOPER SEWARE DEVELOPER SEWARE DEVELOPER Associated attestation - Emperatriz Diop PSY.D. - 10/25/2020 9:50 AM COURSEWARE DEVELOPER I attest that I have reviewed all [...] well and is walking off the floor. SEWARE DEVELOPER documented in this encounter ED Notes * [...] longer able to function normally and left [employer] to do [place]. She also endorses bloating. Her pain wakes [...] rhythm with sinus arrhythmia with short [place] ??? Anxiety 07/20/2019 ??? Asthma ??? Nausea [...] Madyson Ramirez MD at 10/25/2020 10:32 AM COURSEWARE DEVELOPER SEWARE DEVELOPER SEWARE DEVELOPER Associated attestation - Madyson Ramirez MD - 10/25/2020 10:32 AM COURSEWARE DEVELOPER I have seen and examined the patient. [...] arrival: Car Comments: Rachel Arreguin RN 10/23/20 [id number] SEWARE DEVELOPER * Carmelita Damian RN - 10/23/2020 10:53 PM CST Pt followed by GI for Sebo. Pt reports vomiting with generalized abdominal pain for past 4 days. Denies diarrhea or constipation. Afebrile. SEWARE DEVELOPER documented in this encounter Miscellaneous Notes * [...] Clinical Goals for the Shift: VS stable SEWARE DEVELOPER * Plan of Care - Tila Harmon [...] nutritional status will improve Outcome: Progressing Summary: SEWARE DEVELOPER * Assessment & Plan Note - Yolis Randle MD - 10/26/2020 10:29 AM COURSEWARE DEVELOPER Associated Problem(s): Dehydration (Resolved 10/01/2021) Symptoms of dehydration include decreased urination and delayed capillary refill (identified on exam in ED). She completed a normal saline bolus in the ED. Once she is able to tolerate adequate oral hydration, IV fluids will be discontinued. - Continue mIV fluids SEWARE DEVELOPER * Assessment & Plan Note - Yolis Randle MD - 10/26/2020 10:25 AM COURSEWARE DEVELOPER Associated Problem(s): Vomiting (Resolved 10/01/2021) Nina is [...] Zofran prn for nausea - Avoid NSAIDs SEWARE DEVELOPER SEWARE DEVELOPER * Subjective & Objective - Yolis Randle MD - 10/26/2020 10:25 AM COURSEWARE DEVELOPER Pediatric GI Daily Progress Note Subjective Chief [...] Assessment/Plan Principal Problem: Vomiting Active Problems: Dehydration SEWARE DEVELOPER SEWARE DEVELOPER SEWARE DEVELOPER SEWARE DEVELOPER * Plan of Care - Demetria Gupta RN - 10/26/2020 9:15 AM CST Goals: Clinical Goals for the Shift: VSS, pain control, tolerate clear liquid diet Summary: pt resting comfortably in bed,no distress noted SEWARE DEVELOPER * Plan of Care - Tila Harmon [...] nutritional status will improve Outcome: Progressing Summary: SEWARE DEVELOPER * Plan of Care - Nhi Ramirez [...] disease or condition will improve Outcome: Progressing SEWARE DEVELOPER * Plan of Care - Gale Cortez [...] mechanical in am if comfortable, no emesis SEWARE DEVELOPER * Plan of Care - Clover Santos RN - 10/24/2020 5:20 PM COURSEWARE DEVELOPER Goals: Clinical Goals for the Shift: VSS, pain control, tolerate clear liquid diet Summary: VSS, pain reduced with PRN tylenol and hyoscyamine, pt tolerated the clear liquid diet Problem: Activity: Goal: Risk for activity intolerance will decrease Outcome: Progressing Problem: Lack of Knowledge: Goal: Knowledge of disease or condition will improve Outcome: Progressing SEWARE DEVELOPER * Assessment & Plan Note - Charla Valdes MD - 10/24/2020 6:48 AM COURSEWARE DEVELOPER Associated Problem(s): Dehydration (Resolved 10/01/2021) Symptoms of dehydration include decreased urination and delayed capillary refill (identified on exam in ED). She completed a normal saline bolus in the ED. Once she is able to tolerate adequate oral hydration, IV fluids will be discontinued. - Continue mIV fluids SEWARE DEVELOPER SEWARE DEVELOPER * Assessment & Plan Note - Charla Valdes MD - 10/24/2020 6:48 AM COURSEWARE DEVELOPER Associated Problem(s): Hematemesis (Resolved 10/25/2020) Hematemesis occurred in setting of intractable vomiting for several day duration. 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 - IV Protonix q 12 hours - Avoid NSAIDs SEWARE DEVELOPER SEWARE DEVELOPER * Assessment & Plan Note - Charla Valdes MD - 10/24/2020 6:47 AM COURSEWARE DEVELOPER Associated Problem(s): Vomiting (Resolved 10/01/2021) Nina is [...] Zofran prn for nausea - Avoid NSAIDs SEWARE DEVELOPER SEWARE DEVELOPER SEWARE DEVELOPER * Subjective & Objective - Charla Valdes MD - 10/24/2020 6:47 AM COURSEWARE DEVELOPER Pediatric GI Daily Progress Note Subjective Chief [...] Principal Problem: Vomiting Active Problems: Hematemesis Dehydration SEWARE DEVELOPER SEWARE DEVELOPER SEWARE DEVELOPER SEWARE DEVELOPER SEWARE DEVELOPER * Plan of Care - Vicki Anand [...] start mIVF, PRNs given for pain 05/10 SEWARE DEVELOPER * Hospital Course - Yolis Randle MD [...] is discharged home with GI Clinic follow-up. SEWARE DEVELOPER SEWARE DEVELOPER SEWARE DEVELOPER SEWARE DEVELOPER SEWARE DEVELOPER SEWARE DEVELOPER SEWARE DEVELOPER SEWARE DEVELOPER SEWARE DEVELOPER SEWARE DEVELOPER SEWARE DEVELOPER * Assessment & Plan Note - Charla Valdes MD - 10/24/2020 2:10 AM COURSEWARE DEVELOPER Associated Problem(s): Dehydration (Resolved 10/01/2021) Symptoms of dehydration include decreased urination and delayed capillary refill (identified on exam in ED). She completed a normal saline bolus in the ED. - Continue mIV fluids SEWARE DEVELOPER * Assessment & Plan Note - Charla Valdes MD - 10/24/2020 2:08 AM COURSEWARE DEVELOPER Associated Problem(s): Hematemesis (Resolved 10/25/2020) Hematemesis occurred in setting of intractable vomiting for several day duration. 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 - NPO while monitoring for further GI bleeding - Careful tracking and documentation of frequency and nature of emesis - Avoid NSAIDs - IV Protonix q 12 hours SEWARE DEVELOPER * Assessment & Plan Note - Charla Valdes MD - 10/24/2020 1:56 AM COURSEWARE DEVELOPER Associated Problem(s): Vomiting (Resolved 10/01/2021) Nina is [...] NPO while monitoring for further GI bleeding SEWARE DEVELOPER SEWARE DEVELOPER SEWARE DEVELOPER SEWARE DEVELOPER * Subjective & Objective - Charla Valdes MD - 10/24/2020 1:33 AM COURSEWARE DEVELOPER Pediatric History and Physical Subjective Patient is a 20 y.o. female with chief complaint of intractable vomiting. HPI: Nina is an 20yo female with past medical history of SIBO (small intestine bacterial overgrowth syndrome), chronic abdominal pain with vomiting, migraines, anxiety and depression. She presents to [facility] ED at the recommendation of her GI [...] tinged. She was advised to come to [facility] for further workup and management of possible [...] rhythm with sinus arrhythmia with short [place] ??? Anxiety 07/20/2019 ??? Asthma ??? Nausea [...] college in the fall and joined a [employer] but has been home since mid August [...] for urine culture (WBC >10) not met. SEWARE DEVELOPER SEWARE DEVELOPER SEWARE DEVELOPER SEWARE DEVELOPER documented in this encounter Plan of Treatment Not on file documented as of this encounter Procedures Procedure Name Priority Date/Time Associated Diagnosis Comments DRUG SCREEN, URINE STAT 10/24/2020 2: 43 AM COURSEWARE DEVELOPER URINALYSIS AND REFLEX TO MICROSCOPIC AND CULTURE STAT 10/24/2020 2:43 AM COURSEWARE DEVELOPER HCG, URINE, QUALITATIVE STAT 10/24/2020 2:43 AM COURSEWARE DEVELOPER URINALYSIS, MICROSCOPIC ONLY STAT 10/24/2020 2:43 AM COURSEWARE DEVELOPER DIFFERENTIAL AUTO STAT 10/24/2020 1:0 7 AM COURSEWARE DEVELOPER CBC WITH AUTO DIFFERENTIAL STAT 10/24/2020 1:07 AM COURSEWARE DEVELOPER TISSUE TRANSGLUTAMINASE, IGA STAT 10/24/2020 1:07 AM COURSEWARE DEVELOPER CRP (ACUTE PHASE) STAT 10/24/2020 1:0 7 AM COURSEWARE DEVELOPER TSH STAT 10/24/2020 1:07 AM COURSEWARE DEVELOPER T4, FREE STAT 10/24/2020 1:07 AM COURSEWARE DEVELOPER LIPASE STAT 10/24/2020 1:07 AM COURSEWARE DEVELOPER IGA STAT 10/24/2020 1:07 AM COURSEWARE DEVELOPER COMPREHENSIVE METABOLIC PANEL STAT 10/24/2020 1:07 AM COURSEWARE DEVELOPER documented in this encounter Results * (ABNORMAL) Urinalysis, microscopic only (10/24/2020 2:43 AM COURSEWARE DEVELOPER) WBC, ur 0-5 0 - 5 /HPF [facility] RBC, ur 0-2 0 - 2 /HPF [facility] Epithelial cells, squamous, ur 6-10(A) 0 - 5 /HPF [facility] Comment:Suggestive of contam ination. Consider recollection by clean catch. Mucous, ur Present(A) [facility] Culture Reflex Comment Reflex conditions for urine culture (WBC >10) not met. [facility] Urine 10/24/2020 2:43 AM COURSEWARE DEVELOPER 10/24/2020 2:50 AM COURSEWARE DEVELOPER Nehal Means MD LAB URINE ORDERABLES Final Result Performing Organization Address City/[facility]/[place] [address] * Drug screen, urine (10/24/2020 2:43 AM COURSEWARE DEVELOPER) Drug screen, ur Negative [facility] Comment: Interpretive Data This test detects the presence of approximately 50 substances using LC-tandem mass spectrometry. For a list of specific compounds and detection limits refer to the Lab Test Guide Book. While this technique is highly specific, false-positive and false-negative findings may occur in very rare circumstances. Contact the Electronics Repair Technician wildlife policy professional ([phone]) for consultation if needed. This test was developed and its performance characteristics determined by [facility]. It has not been cleared or approved by the U.S. Food and Drug Administration. Current interpretive data was last revised 2016. Director Review Not Indicated [facility] Urine 10/24/2020 2:43 AM COURSEWARE DEVELOPER 10/24/2020 2:50 AM COURSEWARE DEVELOPER Johnna Zhu MD LAB URINE ORDERABLES F inal Result Performing Organization Address [facility] [place] [address] * hCG, urine, qualitative (10/24/2020 2:43 AM COURSEWARE DEVELOPER) HCG, ur Negative Negative [facility] Urine 10/24/2020 2:43 AM COURSEWARE DEVELOPER 10/24/2020 2:50 AM COURSEWARE DEVELOPER Nehal Means MD LAB URINE ORDERABLES Final Result Performing Organization Address City/[facility]/[place] [address] * (ABNORMAL) Urinalysis reflex to microscopic and culture Urine (10/24/2020 2:43 AM COURSEWARE DEVELOPER) Color, ur Yellow Yellow [facility] Clarity, ur Clear Clear [facility] Specific gravity, ur 1.030(H) 1.010 - 1.025 [facility] pH, urine 6.0 [facility] Protein, ur ql Trace Negative [facility] Glucose, ur ql Negative Negative [facility] Ketones, ur 1+(A) Negative [facility] Bilirubin, ur Negative Negative [facility] Blood, ur Negative Negative [facility] Urobilinogen, ur <2.0 <2.0 mg/dL [facility] Nitrite, ur Negative Negative [facility] Leukocyte esterase, ur 1+(A) Negative [facility] UA reflex comment Reflex to microscopic UA will be performed. [facility] Urine 10/24/2020 2:43 AM COURSEWARE DEVELOPER 10/24/2020 2:50 AM COURSEWARE DEVELOPER Narrative [facility] - 10/24/2020 3:25 AM COURSEWARE DEVELOPER ?? Urine pH is affected by diet, medications, systemic acid-base disturbances, and renal tubular function. ??pH may affect urinary stone formation. ??For example, urine pH below 6.0 may help reduce the tendency for calcium phosphate stones and pH greater than 6.0 may reduce the tendency for uric acid stone formation. Source: [facility]. Last revised 09-10-2017 Nehal Means MD LAB MICROBIOLOGY - GENERAL ORDERABLES Final Result [facility] [place] [address] * IgA (10/24/2020 1:07 AM COURSEWARE DEVELOPER) Immunoglobulin A 258.6 70.0 - 400.0 mg/dL [facility] Comment:Repeated and Verifie d Blood specimen (specimen) 10/24/2020 1:07 AM COURSEWARE DEVELOPER 10/24/2020 1:25 AM COURSEWARE DEVELOPER Klaudia Meneses MD LAB BLOOD ORDERABLES Final Result [facility] [place] [address] * Differential, auto (10/24/2020 1:07 AM COURSEWARE DEVELOPER) Neutrophil abs 3.4 1.7 - 6.5 K/cumm [facility] Imm gran abs 0.0 0.0 - 0.1 K/cumm [facility] Lymphocyte abs 2.9 0.8 - 3.3 K/cumm [facility] Monocyte abs 0.7 0.2 - 0.8 K/cumm [facility] Eosinophil abs 0.4 0.0 - 0.5 K/cumm [facility] Basophil abs 0.1 0.0 - 0.1 K/cumm [facility] Neutrophil pct 45.6 % [facility] Comment: Interpretive Data Percent cell count reference ranges are not reported, since discordance with absolute values may lead to misinterpretation of CBC data. Current Interpretive Data was last revised on 2017. Imm gran pct 0.4 % [facility] Comment: Interpretive Data Percent cell count reference ranges are not reported, since discordance with absolute values may lead to misinterpretation of CBC data. Current Interpretive Data was last revised on 2017. Lymphocyte pct 39.0 % [facility] Comment: Interpretive Data Percent cell count reference ranges are not reported, since discordance with absolute values may lead to misinterpretation of CBC data. Current Interpretive Data was last revised on 2017. Monocyte pct 9.1 % [facility] Comment: Interpretive Data Percent cell count reference ranges are not reported, since discordance with absolute values may lead to misinterpretation of CBC data. Current Interpretive Data was last revised on 2017. Eosinophil pct 5.1 % [facility] Comment: Interpretive Data Percent cell count reference ranges are not reported, since discordance with absolute values may lead to misinterpretation of CBC data. Current Interpretive Data was last revised on 2017. Basophil pct 0.8 % [facility] Comment: Interpretive Data Percent cell count reference ranges are not reported, since discordance with absolute values may lead to misinterpretation of CBC data. Current Interpretive Data was last revised on 2017. Blood specimen (specimen) 10/24/2020 1:07 AM COURSEWARE DEVELOPER 10/24/2020 1:25 AM COURSEWARE DEVELOPER us Johnna Zhu MD LAB BLOOD ORDERABLES F inal Result Performing Organization Address [facility] [[email or web address]] [place] [address] * Tissue transglutaminase IgA (TGG-IgA Ab) (10/24/2020 1:07 AM COURSEWARE DEVELOPER) TTG ab, IgA <0.5 <=14.9 units/mL [facility] Comment: Interpretive data Negative: <15 units/mL Positive: > or equal to 15 units/mL Current interpretive data was last revised on 2016. Testing performed by: [facility], [address] [place] [address]., [id number] Blood specimen (specimen) 10/24/2020 1:07 AM COURSEWARE DEVELOPER 10/24/2020 4:00 AM COURSEWARE DEVELOPER Result Formerly [facility] us Johnna Zhu MD LAB BLOOD ORDERABLES F inal Result Performing Organization Address [facility] [place] [address] * T4, free (10/24/2020 1:07 AM COURSEWARE DEVELOPER) Free T4 1.07 0.90 - 1.70 ng/dL [facility] Blood specimen (specimen) 10/24/2020 1:07 AM COURSEWARE DEVELOPER 10/24/2020 1:25 AM COURSEWARE DEVELOPER us Johnna Zhu MD LAB BLOOD ORDERABLES F inal Result Performing Organization Address [facility] [[email or web address]] de Phone Number [facility] [place] [address] * TSH (10/24/2020 1:07 AM COURSEWARE DEVELOPER) Pathologist [facility] Thyroid Stimulating Hormone 1.12 0.30 - 4.20 mcIUnit/mL [facility] Blood specimen (specimen) 10/24/2020 1:07 AM COURSEWARE DEVELOPER 10/24/2020 1:25 AM COURSEWARE DEVELOPER Johnna Zhu MD LAB BLOOD ORDERABLES F inal Result Performing Organization Address [facility] [place] [address] * CBC with auto differential (10/24/2020 1:07 AM COURSEWARE DEVELOPER) [facility] WBC 7.4 3.8 - 9.9 K/cumm [facility] Hgb 13.6 11.9 - 15.5 g/dL [facility] Hct 41.3 35.6 - 45.5 % [facility] Plt 345 150 - 400 K/cumm [facility] MPV 9.7 9.1 - 12.3 fL [facility] RBC 4.68 3.90 - 5.20 M/cumm [facility] MCV 88.2 81.3 - 96.4 fL [facility] MCH 29.1 27.1 - 33.3 pg [facility] MCHC 32.9 32.3 - 35.7 g/dL [facility] RDW CV 13.1 11.1 - 14.9 % [facility] RDW SD 42.3 35.7 - 48.1 fL [facility] NRBC abs 0.00 0.00 - 0.01 K/cumm [facility] Blood specimen (specimen) (Blood, Venous) 10/24/2020 1:07 AM COURSEWARE DEVELOPER 10/24/2020 1:25 AM COURSEWARE DEVELOPER Johnna Zhu MD LAB BLOOD ORDERABLES F inal Result Performing Organization Address [facility] [place] [address] * (ABNORMAL) CRP (acute phase) (10/24/2020 1:07 AM COURSEWARE DEVELOPER) [facility] CRP 16.4(H) <=10.0 mg/L [facility] Blood specimen (specimen) 10/24/2020 1:07 AM COURSEWARE DEVELOPER 10/24/2020 1:25 AM COURSEWARE DEVELOPER Johnna Zhu MD LAB BLOOD [place] [address] * Lipase (10/24/2020 1:07 AM COURSEWARE DEVELOPER) [facility] Lipase 31 10 - 99 Units/L [facility] Comment:Repeated on dilution . Blood specimen (specimen) 10/24/2020 1:07 AM COURSEWARE DEVELOPER 10/24/2020 1:25 AM COURSEWARE DEVELOPER Johnna Zhu MD LAB BLOOD ORDERABLES F inal Result Performing Organization Address [facility] [place] [address] * Comprehensive metabolic panel (10/24/2020 1:07 AM COURSEWARE DEVELOPER) [facility] Sodium 138 135 - 145 mmol/L [facility] Potassium, pl Hemolyzed 3.3 - 4.9 mmol/L [facility] Comment:Hemolyzed result; Un reliable to report. Telephoned report to DEANNE DIEHL RN on 2020-10-24 02:46:57 by Matthew Willard Chloride 106 97 - 110 mmol/L [facility] CO2 22 22 - 32 mmol/L [facility] Anion gap 10 2 - 15 mmol/L [facility] BUN 9 8 - 25 mg/dL [facility] Creatinine 0.89 0.40 - 1.00 mg/dL [facility] Glucose 81 70 - 199 mg/dL [facility] Comment: Interpretive Data Fasting glucose >/= 126 [...] Calcium 9.2 8.5 - 10.3 mg/dL [facility] Bilirubin, total 0.3 0.1 - 1.2 mg/dL [facility] Protein, pl 7.5 6.5 - 8.5 g/dL [facility] Albumin 3.6 3.5 - 5.0 g/dL [facility] Alk phos Hemolyzed 70 - 260 Units/L [facility] Comment:Hemolyzed result; Un reliable to report. Telephoned report to DEANNE DIEHL RN on 2020-10-24 02:46:57 by Matthew Willard ALT 13 7 - 45 Units/L [facility] Hemolyzed 10 - 45 Units/L [facility] Comment:Hemolyzed result; Un reliable to report. Telephoned report to DEANNE DIEHL RN on 2020-10-24 02:46:57 by Matthew Willard Blood specimen (specimen) 10/24/2020 1:07 AM COURSEWARE DEVELOPER 10/24/2020 1:25 AM COURSEWARE DEVELOPER us Johnna Zhu MD LAB BLOOD ORDERABLES F inal Result [facility] [place] [address] documented in this encounter Visit Diagnoses Diagnosis [...] Thu10/24/20 at 0247 Given 10/25/2020 5:24 PM COURSEWARE DEVELOPER 650 mg Given 10/25/2020 6:36 AM COURSEWARE DEVELOPER 650 mg Given 10/24/2020 5:07 PM COURSEWARE DEVELOPER 650 mg cetirizine (ZyrTEC) tablet 10 mg 10 mg, oral, Daily, First dose on Thu10/24/20 at 0900 Given 10/26/2020 8:30 PM COURSEWARE DEVELOPER 10 mg Given 10/25/2020 8:23 PM COURSEWARE DEVELOPER 10 mg Given 10/24/2020 8:19 PM COURSEWARE DEVELOPER 10 mg dextrose 5% and sodium chloride 0.9% with potassium chloride 20 mEq/L infusion (premix) 100 mL/hr, intravenous, Continuous, Starting on Thu10/24/20 at 0330 New Bag 10/26/2020 5:12 AM COURSEWARE DEVELOPER 100 mL/hr 100 mL/hr New Bag 10/25/2020 5:24 PM COURSEWARE DEVELOPER 100 mL/hr 100 mL/hr New Bag 10/25/2020 8:32 AM COURSEWARE DEVELOPER 100 mL/hr 100 mL/hr diphenhydrAMINE (BENADRYL) tab/cap 25 mg 25 mg, oral, Every 6 hours PRN, 2nd line for pain, Starting on Thu10/24/20 at 0247 Given 10/24/2020 3:41 AM COURSEWARE DEVELOPER 25 mg escitalopram (LEXAPRO) tablet 20 mg 20 mg, oral, Daily, First dose on Thu10/24/20 at 0900 Given 10/26/2020 8:30 PM COURSEWARE DEVELOPER 20 mg Given 10/25/2020 8:23 PM COURSEWARE DEVELOPER 20 mg Given 10/24/2020 8:19 PM COURSEWARE DEVELOPER 20 mg fluticasone furoate-vilanteroL (BREO ELLIPTA) 100-25 mcg/dose inhaler 1 puff 1 puff, inhalation, Daily, First dose on Thu10/24/20 at 0900, Rinse mouth with water after use. Do not swallow. Given 10/26/2020 8:30 PM COURSEWARE DEVELOPER 1 puff Given 10/25/2020 8:24 PM COURSEWARE DEVELOPER 1 puff Given 10/24/2020 9:32 PM COURSEWARE DEVELOPER 1 puff hyoscyamine (LEVSIN) 0.125 mg/mL oral drops 0.25 mg 0.25 mg, oral, Every 4 hours PRN, cramping, Starting on Thu10/24/20 at 1149 Given 10/26/2020 6:32 PM COURSEWARE DEVELOPER 0.25 mg Given 10/25/2020 10:16 PM COURSEWARE DEVELOPER 0.25 mg Given 10/25/2020 4:18 PM COURSEWARE DEVELOPER 0.25 mg lansoprazole (PREVACID) capsule 30 mg 30 mg, oral, 2 times daily, First dose on Thu10/25/20 at 1700, Capsules may be opened and contents mixed with food or beverage. Contents should not be crushed or chewed after mixing., Indications: Stress Ulcer ProphylaxisIndications:Stress Ulcer Prophylaxis Given 10/27/2020 8:49 AM COURSEWARE DEVELOPER 30 mg Given 10/26/2020 5:23 PM COURSEWARE DEVELOPER 30 mg Given 10/26/2020 9:16 AM COURSEWARE DEVELOPER 30 mg lidocaine 1% buffered injection 0.1 mL 0.1 mL, subcutaneous, Once as needed, other, IV insertion, Starting on Thu10/25/20 at 2022, For 1 dose, Maximum daily dose 0.1 mL/kg Administer immediately prior to procedure. Given 10/25/2020 8:35 PM COURSEWARE DEVELOPER 0.1 mL Other (Comment) melatonin tablet 3 mg 3 mg, oral, Nightly PRN, sleep, Starting on Thu10/24/20 at 0346 neomycin (MYCIFRADIN) tablet 500 mg 500 mg, oral, 2 times daily, First dose on Thu10/25/20 at 1145, Indications: Other (complete free text reason below), SIBOIndications:Other (complete free text reason below),SIBO Given 10/27/2020 8:49 AM COURSEWARE DEVELOPER 500 mg Given 10/26/2020 8:30 PM COURSEWARE DEVELOPER 500 mg Given 10/26/2020 9:16 AM COURSEWARE DEVELOPER 500 mg norgestimate-ethinyl estradioL (ORTHO TRI-CYCLEN LO) 0.18/0.215/0.25 mg-25 mcg per tablet 1 tablet 1 tablet, oral, Daily, First dose on Thu10/24/20 at 0900, Drug Name: Norgestimate-ethinyl estradiol (ORTHO TRI-CYCLEN LO) 0.18/0.215/0.25 mg - 25 mcg, Form: tablet, Length of Therapy: Indefinite, How soon needed? (normally 72 hrs needed to procure): 0-24 hrs, Reason for Non-Formulary: patient preference Given 10/26/2020 8:30 PM COURSEWARE DEVELOPER 1 tabl et Given 10/25/2020 8:24 PM COURSEWARE DEVELOPER 1 tablet Given 10/24/2020 8:20 PM COURSEWARE DEVELOPER 1 tablet ondansetron ODT (ZOFRAN-ODT) disintegrating tablet 4 mg 4 mg, oral, Once, On Thu10/24/20 at 0130, For 1 dose Given 10/24/2020 1:32 AM COURSEWARE DEVELOPER 4 mg ondansetron ODT (ZOFRAN-ODT) disintegrating tablet 4 mg 4 mg, oral, Every 8 hours PRN, nausea, vomiting, Starting on Thu10/25/20 at 2208 Given 10/25/2020 10:14 PM COURSEWARE DEVELOPER 4 mg pantoprazole (PROTONIX) IVPB (0.4 mg/mL in NS) 40 mg 40 mg, intravenous, Administer over 15 Minutes, Once, On Thu10/24/20 at 0105, For 1 dose, Indications: GI BleedIndications:GI Bleed New Bag 10/24/2020 2:17 AM COURSEWARE DEVELOPER 40 mg pantoprazole (PROTONIX) IVPB (0.4 mg/mL in NS) 40 mg 40 mg, intravenous, Administer over 15 Minutes, Every 12 hours, First dose (after last modification) on Thu10/24/20 at 1530, Indications: GI BleedIndications:GI Bleed New Bag 10/25/2020 3:17 AM COURSEWARE DEVELOPER 40 mg New Bag 10/24/2020 4:56 PM COURSEWARE DEVELOPER 40 mg rifAXIMin (XIFAXAN) tablet 600 mg 600 mg (rounded from 550 mg), oral, 3 times daily, First dose on Thu10/25/20 at 1600, Indications: Other (complete free text reason below), SIBOIndications:Other (complete free text reason below),SIBO Given 10/27/2020 8:49 AM COURSEWARE DEVELOPER 600 mg Given 10/26/2020 8:30 PM COURSEWARE DEVELOPER 600 mg Given 10/26/2020 4:34 PM COURSEWARE DEVELOPER 600 mg sodium chloride 0.9% bolus 1,000 mL 1,000 mL, intravenous, Once, On Thu10/24/20 at 0049, For 1 dose New Bag 10/24/2020 1:48 AM COURSEWARE DEVELOPER 1,000 mL documented in this encounter Discontinued [...] Recently Administered Medications Times are shown in COURSEWARE DEVELOPER. Scheduled Medication Order 10/25/2020 10/26/2020 10/27/2020 cetirizine [...] Demetria Gupta, GLENDA)1634 (Given - Provider: Demetria Gupta, GLENDA)2030 (Given - Provider: Tila Harmon, GLENDA) [...] 2 puff, inhalation, Every 4 hours PRN (emergency response technician), wheezing, shortness of breath, Starting on Thu10/24/20 [...] 10/24/2020 documented in this encounter Care Teams Commercial Banker Relationship Specialty Start Date End Date Johnna Tinajero MD [address] [address] PCP - General Pediatrics 07/19/19 01/26/23 Johnna Tinajero MD [address] [address] 07/19/19 documented as of this encounter
--- OUTSIDE RECORDS SUMMARY | 2024-08-28 02:55 | XMS_ITS | Encounter Summary ---
Author Organization [facility] Address [address] [place] [address] Phone Care Team Providers Care Senior Clinical Project Manager Name Role Phone Johnna Tinajero MD Primary Care Provider + Johnna Tinajero MD Unavailable [phone] Encounter Details Date Type Department Care Team (Late st Contact Info) Description 09/01/2020 Telephone [facility] Pediatric Gastroenterology [facility] 2nd [place] [address] [place] [address] Nehal Cummings MD [address] [place] [address] [place] [address] Social History Tobacco Use Types [...] on file Legal Sex Female 11:42 PM RUBY ON RAILS CONSULTANT Gender Identity Not on file Sexual [...] Nehal Cummings MD - 09/01/2020 6:06 PM RUBY ON RAILS CONSULTANT Mom calling due to continued concerns for [...] severe pain keeping her awake at night. ON RAILS CONSULTANT documented in this encounter Plan of Treatment Not on file documented as of this encounter Visit Diagnoses Not on filedocumented in this encounter Care Teams Senior Clinical Project Manager Relationship Specialty Start Date End Date Johnna Tinajero MD [address] [address] PCP - General Pediatrics 07/19/19 01/26/23 Johnna Tinajero MD [address] [address] 07/19/19 documented as of this encounter
--- OUTSIDE RECORDS SUMMARY | 2024-08-28 02:55 | XMS_ITS | Encounter Summary ---
Author Organization [facility] Address [address] [place] [address] Phone Care Team Providers Care Assistant Infant Teacher Name Role Phone Johnna Tinajero MD Primary Care Provider + Johnna Tinajero MD Unavailable [phone] Encounter Details Date Type Department Care Team (Late st Contact Info) Description 08/21/2020 3:00 PM VOCATIONAL EVALUATOR Office Visit [facility] Pediatric Gastroenterology [address] [facility] [address] [place] [phone] Madyson Uriostegui, FINANCIAL ANALYST [facility] [address] [place] [address] Chronic nausea (Primary Dx); Obesity [...] file Legal Sex Female 11:42 PM VOCATIONAL EVALUATOR Gender Identity Not on file Sexual Orientation Not on file documented as of this encounter Last Filed Vital Signs Vital Sign Reading Time Taken Comments Blood Pressure 118/70 08/21/2020 3:17 PM VOCATIONAL EVALUATOR Pulse 100 08/21/2020 3:17 PM VOCATIONAL EVALUATOR Temperature 36.1 ??C (97 ??F) 08/21/2020 3:17 PM VOCATIONAL EVALUATOR Respiratory Rate 24 08/21/2020 3:17 PM VOCATIONAL EVALUATOR Oxygen Saturation - - Inhaled Oxygen Concentration - - Weight 95 kg (209 lb 8 oz) 08/21/2020 3:17 PM CS T Height 160 cm (5' 3 ) 08/21/2020 3:17 PM VOCATIONAL EVALUATOR Body Mass Index 37.11 08/21/2020 3:17 PM VOCATIONAL EVALUATOR Body Mass Index Percentile 98.11% 08/21/2020 3:1 7 PM VOCATIONAL EVALUATOR Growth Chart: CDC (Girls, 2- 20 Years) documented in this encounter Progress Notes * Madyson Uriostegui, FINANCIAL ANALYST - 08/21/2020 3:00 PM CST 08/21/2020 Nina Elvin Coyne 2000 We saw Nina today for a follow-up visit in the Pediatric Gastroenterology, Hepatology & Nutrition office at [facility]. Nina is a 20 y.o. female with abdominal pain and nausea. She was accompanied by her mother. Her last visit was in March,. The history is from them and previous records including prior notes and laboratory results. HPI HPI Prior to this visit, I reviewed her records in [employer]. Patient is an established patient in our [...] of water, healthy diet. Madyson Uriostegui NP TIONAL EVALUATOR documented in this encounter Plan of Treatment [...] daily added in this encounter Care Teams Assistant Infant Teacher Relationship Specialty [place] [address] [place] [address] PCP - General Pediatrics 07/19/19 01/26/23 Johnna Tinajero MD [address] [address] 07/19/19 documented as of this encounter
--- OUTSIDE RECORDS SUMMARY | 2024-08-28 02:55 | XMS_ITS | Encounter Summary ---
Author Organization [facility] Address [address] [place] [address] Care Team Providers Care Import Customs Clearing Agent Name Role Phone Johnna Tinajero MD Primary Care Provider + Johnna Tinajero MD Unavailable [phone] Encounter Details Date Type Department Care Team (Late st Contact Info) Description 08/29/2020 8:15 AM HALL DIRECTOR - 08/29/2020 8:30 AM HALL DIRECTOR Surgery [facility] [place] [address] Macy Najera MD [address] [facility] [address] [place] [address] BREATH TEST/HYDROGEN - Lactulose Surgery Details Date/Time [...] on file Legal Sex Female 11:42 PM HALL DIRECTOR Gender Identity Not on file Sexual Orientation Not on file documented as of this encounter Last Filed Vital Signs Vital Sign Reading Time Taken Comments Blood Pressure 130/90 08/29/2020 8:05 AM HALL DIRECTOR Pulse 91 08/29/2020 8:05 AM HALL DIRECTOR Temperature 36 ??C (96.8 ??F) 08/29/2020 8:05 AM HALL DIRECTOR Respiratory Rate 20 08/29/2020 8:05 AM HALL DIRECTOR Oxygen Saturation - - Inhaled Oxygen Concentration - - Weight 95.5 kg (210 lb 8.6 oz) 08/29/2020 8:05 A M HALL DIRECTOR Height - - Body Mass Index 37.3 08/21/2020 3:17 PM HALL DIRECTOR Body Mass Index Percentile 98.18% 08/29/2020 8:0 5 AM HALL DIRECTOR Growth Chart: [facility] (Girls, 2- 20 Years) documented [...] Diagnosis Comments BREATH TEST/HYDROGEN 08/29/2020 8:02 AM HALL DIRECTOR Vomiting without nausea, intractability of vomiting not specified, unspecified vomiting type Abdominal pain documented in this encounter Visit Diagnoses Diagnosis Vomiting without nausea, intractability of vomiting not specified, unspecified vomiting type Abdominal pain Abdominal pain, unspecified site documented in this encounter Admitting Diagnoses Diagnosis Abdominal pain Abdominal pain, unspecified site Vomiting without nausea documented in this encounter Care Teams Import Customs Clearing Agent Relationship Specialty Start Date End Date Johnna Tinajero MD [address] [address] PCP - General Pediatrics 07/19/19 01/26/23 Johnna Tinajero MD [address] [address] 07/19/19 documented as of this encounter
--- OUTSIDE RECORDS SUMMARY | 2024-08-28 02:55 | XMS_ITS | Encounter Summary ---
Author Organization [facility] Address [address] [place] [address] Phone Care Team Providers Care Senior Research Fellow Name Role Phone Johnna Tinajero MD Primary Care Provider + Johnna Tinajero MD Unavailable [phone] Encounter Details Date Type Department Care Team (Late st Contact Info) Description 09/05/2020 Orders Only [facility] Pediatric Gastroenterology [address] [facility] [address] [place] [phone] Madyson Uriostegui, SOLAR SALES ENERGY ADVISOR [address] [facility] [address] [place] [address] Social History Tobacco Use Types [...] on file Legal Sex Female 11:42 PM STIFF LEG OPERATOR Gender Identity Not on file Sexual [...] result. 09/04/2020 09/04/2020 09/18/2020 3:0 7 AM STIFF LEG OPERATOR documented as of this encounter Care Teams Senior Research Fellow Relationship Specialty Start Date End Date Johnna Tinajero MD [address] [address] PCP - General Pediatrics 07/19/19 01/26/23 Johnna Tinajero MD [address] [address] 07/19/19 documented as of this encounter
--- OUTSIDE RECORDS SUMMARY | 2024-08-28 02:55 | XMS_ITS | Encounter Summary ---
Author Organization [facility] Address [address] [place] [address] [address] [place] [address] Phone Care Team Providers Care Caustic Plant Worker Name Role Phone Johnna Tinajero MD Primary Care Provider + Johnna Tinajero MD Unavailable [phone] Encounter Details Date Type Department Care Team (Late st Contact Info) Description 09/04/2020 Documentation [facility] [address] [facility] [address] [place] [address] Johnna Tinajero MD [address] [place] [address] Social History Tobacco Use Types Packs/Day [...] on file Legal Sex Female 11:42 PM FEED MILLER Gender Identity Not on file Sexual Orientation [...] office to see me today at 3.30. MILLER documented in this encounter Plan of Treatment Not on file documented as of this encounter Visit Diagnoses Not on filedocumented in this encounter Care Teams Caustic Plant Worker Relationship Specialty Start Date End Date Johnna Tinajero MD [address] [address] PCP - General Pediatrics 07/19/19 01/26/23 Johnna Tinajero MD [address] [address] 07/19/19 documented as of this encounter
--- OUTSIDE RECORDS SUMMARY | 2024-08-28 02:55 | XMS_ITS | Encounter Summary ---
Author Organization [facility] Address [address] [place] [address] [address] [place] [address] Phone Care Team Providers Care Honing Machine Operator Semiautomatic Name Role Phone Johnna Tinajero MD Primary Care Provider + Johnna Tinajero MD Unavailable [phone] Reason for Visit * Reason Onset Date Comments vomiting/chest pain 10/23/2020 Encounter Details Date Type Department Care Team (Late st Contact Info) Description 10/23/2020 Telephone [facility] [address] [facility] [address] [place] [address] Johnna Tinajero MD [address] [place] [address] [address] [place] [address] vomiting/chest pain Social History Tobacco [...] file Legal Sex Female 11:42 PM MANAGER MEDICAL DEVICE Gender Identity Not on file Sexual Orientation [...] and call us with update. C/B PRN GER MEDICAL DEVICE documented in this encounter Plan of Treatment Not on file documented as of this encounter Visit Diagnoses Not on filedocumented in this encounter Care Teams Honing Machine Operator Semiautomatic Relationship Specialty Start Date End Date Johnna Tinajero MD [address] [address] PCP - General Pediatrics 07/19/19 01/26/23 Johnna Tinajero MD [address] [address] 07/19/19 documented as of this encounter
--- OUTSIDE RECORDS SUMMARY | 2024-08-28 02:55 | XMS_ITS | Encounter Summary ---
Author Organization [facility] Address [address] [place] [address] Phone Care Team Providers Care Equipment Tester Name Role Phone Johnna Tinajero MD Primary Care Provider + Johnna Tinajero MD Unavailable [phone] Reason for Visit * Reason Onset Date Comments Scheduling Appointments 08/08/2020 Encounter Details Date Type Department Care Team (Late st Contact Info) Description 08/08/2020 Telephone [facility] Pediatric Gastroenterology [facility] 2nd [place] [address] [place] [address] Madyson Uriostegui, DEISI [address] [facility] [address] [place] [address] Scheduling Appointments Social History Tobacco [...] on file Legal Sex Female 11:42 PM ARCHITECTURAL DESIGN PROFESSOR Gender Identity Not on file Sexual Orientation Not on file documented as of this encounter Miscellaneous Notes * Telephone Encounter - Macy Morin RMA - 08/13/2020 11:03 AM ARCHITECTURAL DESIGN PROFESSOR Called mom back and she said 08/20 would not be a good day. Patient scheduled 08/21 @ 3 ITECTURAL DESIGN PROFESSOR * Telephone Encounter - Madyson Uriostegui NP - 08/10/2020 4:48 PM ARCHITECTURAL DESIGN PROFESSOR Yes. Thanks. ITECTURAL DESIGN PROFESSOR * Telephone Encounter - Macy Morin RMA - 08/09/2020 2:45 PM ARCHITECTURAL DESIGN PROFESSOR Is it okay to put her in a Health start spot? You do not have any afternoon appointments available. ITECTURAL DESIGN PROFESSOR ITECTURAL DESIGN PROFESSOR * Telephone Encounter - Madyson Uriostegui NP - 08/09/2020 1:46 PM ARCHITECTURAL DESIGN PROFESSOR I can see her Monday 08/20 morning at our [facility] office. ITECTURAL DESIGN PROFESSOR * Telephone Encounter - Macy Morin RMA - 08/08/2020 3:19 PM ARCHITECTURAL DESIGN PROFESSOR I called mom to scheduled 3-4 month f/u with VLADIMIR. She also stated she was not sure when Nina was supposed to come back for a visit with a GI provider. The patient is home for the Holidays so mom would like to get any procedures or visits done during this time. ITECTURAL DESIGN PROFESSOR documented in this encounter Plan of Treatment Not on file documented as of this encounter Visit Diagnoses Not on filedocumented in this encounter Care Teams Equipment Tester Relationship Specialty Start Date End Date Johnna Tinajero MD [address] [address] PCP - General Pediatrics 07/19/19 01/26/23 Johnna Tinajero MD [address] [address] 07/19/19 documented as of this encounter
--- OUTSIDE RECORDS SUMMARY | 2024-08-28 02:55 | XMS_ITS | Encounter Summary ---
Author Organization [facility] Address [address] [place] [address] Phone Care Team Providers Care Seat Pack Inspector Name Role Phone Johnna Tinajero MD Primary Care Provider + Johnna Tinajero MD Unavailable [phone] Encounter Details Date Type Department Care Team (Late st Contact Info) Description 09/06/2020 Telephone [facility] Pediatric Neurology [facility] 2nd [place] [address] [place] [address] Magnolia Hanna RN Social History [...] file Legal Sex Female 11:42 PM PROGRAM TRAINER Gender Identity Not on file Sexual [...] us if there are any questions/concerns. Thanks! RAM TRAINER * Telephone Encounter - Magnolia Hanna RN - 09/06/2020 3:51 PM CST ----- Message from Nehal Riggs DO sent at 09/06/2020 3:46 PM PROGRAM TRAINER ----- [facility] team, Please let Nina and her mother know that Nina's EEG was normal. Please reiterate that this does not fully rule out seizure (although it is less likely) and that the seizure precautions/first aid and recommendation for no driving for 6 months from her event still stands. Thank you! ----- Message ----- From: Tete Downs MD Sent: 09/06/2020 3:24 PM PROGRAM TRAINER To: Nehal Riggs DO RAM TRAINER documented in this encounter Plan of Treatment Not on file documented as of this encounter Visit Diagnoses Not on filedocumented in this encounter Additional Health Concerns Infection Onset Date Last Indicated Resolved Time Respiratory Infection (JASMINE), contact + droplet Comment:Automatically added due to negative COVID-19 result. 09/04/2020 09/04/2020 09/18/2020 3:0 7 AM PROGRAM TRAINER documented as of this encounter Care Teams Seat Pack Inspector Relationship Specialty Start Date End Date Johnna Tinajero MD [address] [facility] [address] [place] [address] PCP - General Pediatrics 07/19/19 01/26/23 Johnna Tinajero MD [address] [facility] [address] [place] [address] 07/19/19 documented as of this encounter
--- OUTSIDE RECORDS SUMMARY | 2024-08-28 02:55 | XMS_ITS | Encounter Summary ---
Author Organization [facility] Address [address] [place] [address] Phone Care Team Providers Care Forest Engineer Name Role Phone Johnna Tinajero MD Primary Care Provider + Johnna Tinajero MD Unavailable [phone] Encounter Details Date Type Department Care Team (Late st Contact Info) Description 09/03/2020 Telephone [facility] Pediatric Gastroenterology [facility] 2nd [place] [address] [place] [address] Carlton Garza MD PhD 1 [facility] [address] [place] [address] Social History Tobacco Use Types [...] on file Legal Sex Female 11:42 PM FOOD AND BEVERAGE DIRECTOR Gender Identity Not on file Sexual [...] call back in 2-3 weeks for update. AND BEVERAGE DIRECTOR * Telephone Encounter - Madyson Uriostegui NP - 09/05/2020 8:45 AM FOOD AND BEVERAGE DIRECTOR FYI: LM for mom with positive SIBO results, also sent SlideRocket message. Ordered Rifaximin TID. Mom called office [...] Asked mom to call back to discuss. AND BEVERAGE DIRECTOR * Telephone Encounter - Carlton Garza MD [...] I sent Zofran to mom's requested pharmacy. AND BEVERAGE DIRECTOR documented in this encounter Plan of [...] COVID: Suspected 09/04/2020 09/04/2020 09/04/2020 7:11 PM FOOD AND BEVERAGE DIRECTOR Respiratory Infection (JASMINE), contact + droplet Comment:Automatically added due to negative COVID-19 result. 09/04/2020 09/04/2020 09/18/2020 3:0 7 AM FOOD AND BEVERAGE DIRECTOR documented as of this encounter Care Teams Forest Engineer Relationship Specialty Start Date End Date Johnna Tinajero MD [address] [address] PCP - General Pediatrics 07/19/19 01/26/23 Johnna Tinajero MD [address] [address] 07/19/19 documented as of this encounter
--- OUTSIDE RECORDS SUMMARY | 2024-08-28 02:55 | XMS_ITS | Encounter Summary ---
Author Organization [facility] Address [address] [place] [address] Care Team Providers Care New Accounts Representative Name Role Phone Johnna Tinajero MD Primary Care Provider + Johnna Tinajero MD Unavailable [phone] Encounter Details Date Type Department Care Team (Late st Contact Info) Description 08/29/2020 7:55 AM RESIDENT PROGRAM SPECIALIST - 08/29/2020 11:36 AM RESIDENT PROGRAM SPECIALIST Hospital Encounter [facility] [place] [address] Macy Najera MD 1 [facility] [address] [place] [address] Discharge Disposition: Discharge to home or self [...] on file Legal Sex Female 11:42 PM RESIDENT PROGRAM SPECIALIST Gender Identity Not on file Sexual Orientation Not on file documented as of this encounter Last Filed Vital Signs Vital Sign Reading Time Taken Comments Blood Pressure 130/90 08/29/2020 8:05 AM RESIDENT PROGRAM SPECIALIST Pulse 91 08/29/2020 8:05 AM RESIDENT PROGRAM SPECIALIST Temperature 36 ??C (96.8 ??F) 08/29/2020 8:05 AM RESIDENT PROGRAM SPECIALIST Respiratory Rate 20 08/29/2020 8:05 AM RESIDENT PROGRAM SPECIALIST Oxygen Saturation - - Inhaled Oxygen Concentration - - Weight 95.5 kg (210 lb 8.6 oz) 08/29/2020 8:05 A M RESIDENT PROGRAM SPECIALIST Height - - Body Mass Index 37.3 08/21/2020 3:17 PM RESIDENT PROGRAM SPECIALIST Body Mass Index Percentile 98.18% 08/29/2020 8:0 5 AM RESIDENT PROGRAM SPECIALIST Growth Chart: [facility] (Girls, 2- 20 Years) documented [...] Diagnosis Comments BREATH TEST/HYDROGEN 08/29/2020 8:02 AM RESIDENT PROGRAM SPECIALIST Vomiting without nausea, intractability of vomiting not specified, unspecified vomiting type Abdominal pain documented in this encounter Visit Diagnoses Diagnosis Abdominal pain Abdominal pain, unspecified site Vomiting without nausea documented in this encounter Admitting Diagnoses Diagnosis Abdominal pain Abdominal pain, unspecified site Vomiting without nausea documented in this encounter Care Teams New Accounts Representative Relationship Specialty Start Date End Date Johnna Tinajero MD [address] [address] PCP - General Pediatrics 07/19/19 01/26/23 Johnna Tinajero MD [address] [address] 07/19/19 documented as of this encounter
--- OUTSIDE RECORDS SUMMARY | 2024-08-28 02:55 | XMS_ITS | Encounter Summary ---
Author Organization [facility] Address [address] [place] [address] [address] [place] [address] Phone Care Team Providers Care Dairy Grazer Name Role Phone Johnna Tinajero MD Primary Care Provider + Johnna iTnajero MD Unavailable [phone] Reason for Visit * Reason Onset Date Comments Concussion 07/19/2020 Encounter Details Date Type Department Care Team (Late st Contact Info) Description 07/19/2020 Telephone [facility] [address] [facility] [address] [place] [address] Johnna Tinajero MD [address] [place] [address] [address] [place] [address] Concussion Social History Tobacco Use [...] on file Legal Sex Female 11:42 PM ELECTRIC MOTOR ASSEMBLER Gender Identity Not on file Sexual Orientation Not on file documented as of this encounter Miscellaneous Notes * Telephone Encounter - Davina Prater RN - 07/19/2020 3:55 PM ELECTRIC MOTOR ASSEMBLER Head Injury: Time/Location of injury: Monday 07/16, [...] sheet discussed- mom will send form through [place] when she has a chance to review with patient to establish a baseline for symptoms. C/B: Acting less responsive, uncoordinated movements, late vomiting more than 2- 3 times, vision complaints, unusual eye movements, dizziness, severe headaches, concerns. Mom agrees with plan of care. TRIC MOTOR ASSEMBLER documented in this encounter Plan of Treatment Not on file documented as of this encounter Visit Diagnoses Not on filedocumented in this encounter Care Teams Dairy Grazer Relationship Specialty Start Date End Date Johnna Tinajero MD [address] [address] PCP - General Pediatrics 07/19/19 01/26/23 Johnna Tinajero MD [address] [address] 07/19/19 documented as of this encounter
--- OUTSIDE RECORDS SUMMARY | 2024-08-28 02:55 | XMS_ITS | Encounter Summary ---
Author Organization [facility] Address [address] [place] [address] Phone Care Team Providers Care Sound Equipment Mechanic Name Role Phone Johnna Tinajero MD Primary Care Provider + Johnna Tinajero MD Unavailable [phone] Encounter Details Date Type Department Care Team (Late st Contact Info) Description 10/22/[address] [facility] Pediatric Gastroenterology [facility] Medical Office Building [address] [place] [address] Madyson Uriostegui, SUPERVISOR FABRICATION DEPARTMENT [address] [facility] [address] [place] [address] Social History Tobacco Use Types [...] on file Legal Sex Female 11:42 PM SECOND MATE Gender Identity Not on file Sexual Orientation Not on file documented as of this encounter Miscellaneous Notes * Telephone Encounter - Madyson Uriostegui NP - 10/22/2020 4:52 PM SECOND MATE Called mom to obtain update. In August, [...] will see her for ongoing symptoms management. ND MATE documented in this encounter Plan of Treatment Not on file documented as of this encounter Visit Diagnoses Not on filedocumented in this encounter Care Teams Sound Equipment Mechanic Relationship Specialty Start Date End Date Johnna Tinajero MD [address] [place] [address] PCP - General Pediatrics 07/19/19 01/26/23 Johnna Tinajero MD [address] [place] [address] 07/19/19 documented as of this encounter
--- OUTSIDE RECORDS SUMMARY | 2024-08-28 02:55 | XMS_ITS | Encounter Summary ---
Author Organization [facility] Address [address] [place] [address] Phone Care Team Providers Care Organic Chemistry Professor Name Role Phone Johnna Tinajero MD Primary Care Provider + Johnna Tinajero MD Unavailable [phone] Reason for Visit * Reason Onset Date Comments Rectal Bleeding 08/29/2020 Encounter Details Date Type Department Care Team (Late st Contact Info) Description 08/29/2020 Telephone [facility] Pediatric Gastroenterology [facility] 2nd Floor [address] [place] [address] Madyson Uriostegui, DEISI [address] [facility] [address] [place] [address] Rectal Bleeding Social History Tobacco [...] on file Legal Sex Female 11:42 PM EGG SETTER Gender Identity Not on file Sexual Orientation Not on file documented as of this encounter Miscellaneous Notes * Telephone Encounter - Arminda Salazar RN - 08/29/2020 5:03 PM EGG SETTER Called mom back She stated that when [...] the pain. We will discuss with JKS SETTER * Telephone Encounter - Macy Morin RMA - 08/29/2020 3:33 PM EGG SETTER Mom called and said she also talked to the PCP and they told her to call us. Nina had some blood in her stool today. Her pain level is the same as always. SETTER documented in this encounter Plan of Treatment Not on file documented as of this encounter Visit Diagnoses Not on filedocumented in this encounter Additional Health Concerns Infection Onset Date Last Indicated Resolved Time COVID: Suspected 09/04/2020 09/04/2020 09/04/2020 7:11 PM EGG SETTER Respiratory Infection (JASMINE), contact + droplet Comment:Automatically added due to negative COVID-19 result. 09/04/2020 09/04/2020 09/18/2020 3:0 7 AM EGG SETTER documented as of this encounter Care Teams Organic Chemistry Professor Relationship Specialty Start Date End Date Johnna Tinajero MD [address] [address] PCP - General Pediatrics 07/19/19 01/26/23 Johnna Tinajero MD [address] [address] 07/19/19 documented as of this encounter
--- OUTSIDE RECORDS SUMMARY | 2024-08-28 02:55 | XMS_ITS | Encounter Summary ---
Author Organization [facility] Address [address] [place] [address] Phone Care Team Providers Care Burial Needs Salesperson Name Role Phone Johnna Tinajero MD Primary Care Provider + Johnna Tinajero MD Unavailable [phone] Reason for Visit * Reason Onset Date Comments PA for Xifaxan 09/25/2020 Encounter Details Date Type Department Care Team (Late st Contact Info) Description 09/25/2020 Telephone [facility] Pediatric Gastroenterology [facility] 2nd [place] [address] [place] [address] Gt Collazo, RMA PA for [...] on file Legal Sex Female 11:42 PM TURBINE OPERATOR Gender Identity Not on file Sexual Orientation Not on file documented as of this encounter Miscellaneous Notes * Telephone Encounter - Gt Collazo MA - 10/01/2020 2:03 PM CST No PA needed, Pharmacy notified INE OPERATOR * Telephone Encounter - Gt Collazo MA - 09/25/2020 12:54 PM TURBINE OPERATOR Initiated PA for Xifaxan via cover my med. Sent to review INE OPERATOR documented in this encounter Plan of Treatment Not on file documented as of this encounter Visit Diagnoses Not on filedocumented in this encounter Care Teams Burial Needs Salesperson Relationship Specialty Start Date End Date Johnna Tinajero MD [address] [address] PCP - General Pediatrics 07/19/19 01/26/23 Johnna Tinajero MD [address] [address] 07/19/19 documented as of this encounter
--- OUTSIDE RECORDS SUMMARY | 2024-08-28 02:55 | XMS_ITS | Encounter Summary ---
Author Organization [facility] Address [address] [place] [address] Phone Care Team Providers Care Chicken Tender Name Role Phone Johnna Tinajero MD Primary Care Provider + Johnna Tinajero MD Unavailable [phone] Reason for Referral * Neurology (Routine) - Closed Specialty Diagnoses / Procedures Referred By [place] Referred To Contact Neuro Spec Qual Child Neurology Diagnoses Spells of decreased attentiveness Procedures EEG Nehal Riggs DO [address] [place] [address] Phone: tel: fax: Referral ID Status Reason Start Date Expiration Date Visits Re quested Visits Authorized [id number] Closed 09/03/2020 10/03/2021 1 1 T ARMORED VEHICLE OFFICER Encounter Details Date Type Department Care Team (Latest Contact Info) Description 09/03/2020 1:00 PM LIGHT ARMORED VEHICLE OFFICER Telemedicine [facility] Pediatric Neurology [address] [facility] [address] [place] [address] Nehal Riggs DO [address] [place] [address] Migraine without aura and without [...] on file Legal Sex Female 11:42 PM LIGHT ARMORED VEHICLE OFFICER Gender Identity Not on file Sexual Orientation Not on file documented as of this encounter Patient Instructions * Patient Instructions* Nehal Riggs, - 09/03/2020 1:00 PM LIGHT ARMORED VEHICLE OFFICER - Will plan for routine EEG - [...] understanding of personal headache patterns. - Review [email or web address] - Please call the Pediatric Neurology office at [phone] Riggs of worsening migraine or missed school due to migraine symptoms. T ARMORED VEHICLE OFFICER T ARMORED VEHICLE OFFICER T ARMORED VEHICLE OFFICER T ARMORED VEHICLE OFFICER documented in this encounter Progress Notes * Nehal Riggs DO - 09/03/2020 1:00 PM CST Patient Name: NINA BAUTISTA Medical Record Number (MRN): [id number] Date of (): 2000 Encounter Date: 09/03/2020 [facility] Pediatric Neurology [facility] Telemedicine Visit Chief [...] of chronic nausea,??headaches, and??anxiety who presented to [facility] following a syncopal episode and headache 11/01-11/05. [...] phone note to PMD) while away at [employer] in [place]. She was with her room mate and [...] Adopted so largely unknown Development Parents and charging plug placer had no concerns for delays in development [...] sinus rhythm with sinus arrhythmia with short GA ??? Anxiety 07/20/2019 ??? Asthma ??? Nausea [...] or alcohol use. ?? School She attends [employer]. Gets good grades. No IEP. Review [...] by parent and was intact throughout. Coordination: Poyhmj-icon-weqeyw coordination is normal without dysmetria or ataxia. [...] Order Specific Question: Procedure performed at: Answer: [facility] Order Specific Question: High Density EEG? Answer: No Order Specific Question: OK to perform at the [facility]? Answer: No, perform at [facility] Order Specific Question: Reason for exam: Answer: Spell of decreased responsiveness while driving Thank you for allowing us to participate in the care of your patient. If you have any questions, feel free to contact me at [phone]. Sincerely, Nehal Riggs DO Pediatric Neurology PGY-4 Cosigned by Tete Downs MD at 09/28/2020 5:58 PM LIGHT ARMORED VEHICLE OFFICER T ARMORED VEHICLE OFFICER T ARMORED VEHICLE OFFICER Associated attestation - Tete Downs MD - 09/28/2020 5:58 PM LIGHT ARMORED VEHICLE OFFICER I have seen and examined the patient. [...] encounter Results * EEG (09/06/2020 2:53 PM LIGHT ARMORED VEHICLE OFFICER) Anatomical Region Laterality Modality EEG Narrative 09/06/2020 3:24 PM LIGHT ARMORED VEHICLE OFFICER Routine EEG Report Patient Name: Nina Bautista [facility] Medical Record Number (MRN): [id number] [facility] Record: [id number] Date of (): 2000 EEG Date: 09/06/2020 Location: [facility] EEG Ordering Provider: Nehal Riggs DO CC: Johnna Tinajero History (from client technical professional sheet): Nina is a 20 y.o. woman undergoing EEG for evaluation of spells. Medications: Nina has a current medication list which includes the following prescription(s): albuterol hfa, cetirizine, dicyclomine, escitalopram, fluticasone furoate-vilanterol, metoclopramide, norgestimate-ethinyl estradiol, ondansetron, ondansetron odt, prochlorperazine, and rifaximin. EEG technical description: A routine EEG with scalp electrodes was performed using the [employer] Adsame monitoring system to record EEG data digitally. [...] Tete Downs MD Attending in Pediatric Epilepsy Nehla Fonsecasharee DO NEUROLOGY ORDERABLES Neris l Result documented in this encounter Visit Diagnoses Diagnosis Migraine without aura and without status migrainosus, not intractable- Primary Spells of decreased attentiveness Spells of decreased attentiveness documented in this encounter Additional Health Concerns Infection Onset Date Last Indicated Resolved Time COVID: Suspected 09/04/2020 09/04/2020 09/04/2020 7:11 PM LIGHT ARMORED VEHICLE OFFICER Respiratory Infection (JASMINE), contact + droplet Comment:Automatically added due to negative COVID-19 result. 09/04/2020 09/04/2020 09/18/2020 3:0 7 AM LIGHT ARMORED VEHICLE OFFICER documented as of this encounter Care Teams Chicken Tender Relationship Specialty Start Date End Date Johnna Tinajero MD [address] [address] PCP - General Pediatrics 07/19/19 01/26/23 Johnna Tinajero MD [address] [address] 07/19/19 documented as of this encounter
--- OUTSIDE RECORDS SUMMARY | 2024-08-28 02:55 | XMS_ITS | Encounter Summary ---
Author Organization [facility] Address [address] [place] [address] Phone Care Team Providers Care Generator Technician Name Role Phone Johnna Tinajero MD Primary Care Provider + Johnna Tinajero MD Unavailable [phone] Reason for Visit * Reason Onset Date Comments Schedule hydrogen breath test 08/22/2020 Encounter Details Date Type Department Care Team (Late st Contact Info) Description 08/22/2020 Telephone [facility] Pediatric Gastroenterology [facility] 2nd [place] [address] [place] [address] Madyson Uriostegui, DEISI 1 [facility] [address] [place], [place] [address] Schedule hydrogen breath test Social History Tobacco [...] file Legal Sex Female 11:42 PM OFFICE AUTOMATION TECHNICIAN Gender Identity Not on file Sexual Orientation Not on file documented as of this encounter Miscellaneous Notes * Telephone Encounter - Mercedes Steve - 08/22/2020 1:20 PM CST Spoke with mom. Scheduled the lactulose hydrogen breath test for 08/29 at 8:00 am. Sent Singularu message with the prep instructions. CE AUTOMATION TECHNICIAN * Telephone Encounter - Mercedes Steve - 08/22/2020 1:13 PM CST ----- Message from Madyson Uriostegui NP sent at 08/21/2020 3:44 PM OFFICE AUTOMATION TECHNICIAN ----- Please schedule Lactulose breath test to r/o SIBO. Thx. CE AUTOMATION TECHNICIAN documented in this encounter Plan of Treatment Not on file documented as of this encounter Visit Diagnoses Not on filedocumented in this encounter Care Teams Generator Technician Relationship Specialty Start Date End Date Johnna Tinajero MD [address] [place] [address] [address] [place] [address] PCP - General Pediatrics 07/19/19 01/26/23 Johnna Tinajero MD [address] [place] [address] 07/19/19 documented as of this encounter
--- OUTSIDE RECORDS SUMMARY | 2024-08-28 02:55 | XMS_ITS | Encounter Summary ---
Author Organization [facility] Address [address] [place] [address] Phone Care Team Providers Care Title I Teacher Name Role Phone Johnna Tinajero MD Primary Care Provider + Johnna Tinajero MD Unavailable [phone] Encounter Details Date Type Department Care Team (Late st Contact Info) Description 09/12/2020 Telephone [facility] Pediatric Gastroenterology [facility] 2nd [place] [address] [place] [address] Brandee Solorzano, RD 1 [facility] [address] [place], [place] [id number] Social History Tobacco Use Types Packs/Day Years [...] on file Legal Sex Female 11:42 PM BARBER TOOL SHARPENER Gender Identity Not on file Sexual Orientation [...] (FODMAPs), but a low FODMAP diet plus Nina's picky eating habits is too restrictive, as [...] visit on 10/24. Mom agreed with plan. ER TOOL SHARPENER documented in this encounter Plan of Treatment Not on file documented as of this encounter Visit Diagnoses Not on filedocumented in this encounter Additional Health Concerns Infection Onset Date Last Indicated Resolved Time Respiratory Infection (JASMINE), contact + droplet Comment:Automatically added due to negative COVID-19 result. 09/04/2020 09/04/2020 09/18/2020 3:0 7 AM BARBER TOOL SHARPENER documented as of this encounter Care Teams Title I Teacher Relationship Specialty Start Date End Date Johnna Tinajero MD [address] [address] PCP - General Pediatrics 07/19/19 01/26/23 Johnna Tinajero MD [address] [address] 07/19/19 documented as of this encounter
--- OUTSIDE RECORDS SUMMARY | 2024-08-28 02:56 | XMS_ITS | Encounter Summary ---
Author Organization [facility] Address [address] [place] [address] Phone Care Team Providers Care Photography Assistant Name Role Phone Johnna Tinajero MD Primary Care Provider + Johnna Tinajero MD Unavailable [phone] Reason for Referral * Diagnostic Imaging (Routine) - Closed Specialty Diagnoses / Procedures Referred By [place] Referred To Contact Diagnoses Abdominal pain, unspecified abdominal location Chronic nausea Procedures Nuclear Medicine gastric emptying Florina Colby MD Phone: tel: fax: [address] [address] Referral ID Status Reason Start Date Expiration Date Visits Re quested Visits Authorized [id number] Closed 10/31/2019 05/11/2021 5 5 L ENGINEERING DIRECTOR Reason for Visit * Reason Onset Date Comments scheduling gastric emptying study 10/24/2019 Encounter Details Date Type Department Care Team (Late st Contact Info) Description 10/24/2019 Telephone [facility] Pediatric Gastroenterology [facility] 2nd [place] [address] [place] [address] Leonor Mahmood MD [address] [place] [address] [address] [place] [address] [phone] (work) scheduling gastric emptying study Social History Tobacco Use Types Packs/Day Years Used Date Smoking Tobacco: Never PHQ-2 Answer Date Recorded PHQ-2 Score 4 06/28/2019 Comments No Sex and Gender Information Value Date Recorded Sex Assigned at Not on file Legal Sex Female 11:42 PM CIVIL ENGINEERING DIRECTOR Gender Identity Not on file Sexual Orientation Not on file documented as of this encounter Miscellaneous Notes * Telephone Encounter - Oscar Chambers RN - 10/31/2019 3:58 PM CST Dad contacted radiology directly to schedule L ENGINEERING DIRECTOR * Addendum Note - Oscar Chambers RN - 10/31/2019 11:40 AM CSTAddended by: OSCAR CHAMBERS on: 10/31/2019 11:40 AM Modules accepted: Orders L ENGINEERING DIRECTOR * Telephone Encounter - Oscar Chambers RN - 10/31/2019 11:36 AM CST Order entered in Epic, office will contact family with scheduling details when available L ENGINEERING DIRECTOR * Telephone Encounter - Paty Gray - 10/31/2019 9:37 AM CIVIL ENGINEERING DIRECTOR Dad (Franklin) is calling and is wanting to set up a gastric emptying study. L ENGINEERING DIRECTOR * Telephone Encounter - Oscar Chambers RN - 10/28/2019 4:32 PM CST Called mom back They are unsure if they want to proceed with EES trial vs GES (SIDNEY offered both options at visit) reviewed GES with mom, answered all questions She is going to discuss with makenzie and Nina this weekend and will call back Mon with their preference L ENGINEERING DIRECTOR * Telephone Encounter - Patricia Carvajal - 10/28/2019 4:05 PM CST MOM (LANNY) GOT YOUR MESSAGE, HAVE A COUPLE OF QUESTIONS ABOUT GASTRIC EMPTYING STUDY-ASKING FOR CALL BACK [phone]. L ENGINEERING DIRECTOR * Telephone Encounter - Oscar Chambers RN - 10/25/2019 4:50 PM CST Left mom a message with JMS response and recommendation for gastric emptying study Call back to confirm message rec'd, we can get this set up L ENGINEERING DIRECTOR * Telephone Encounter - Maureen Weeks MD - 10/25/2019 2:04 PM CIVIL ENGINEERING DIRECTOR Agree with reducing nortriptyline dose. I believe she is being seen by her PMD today. Please proceed with gastric emptying study. L ENGINEERING DIRECTOR * Telephone Encounter - Leonor Mahmood MD - 10/24/2019 7:26 AM CIVIL ENGINEERING DIRECTOR Nina was in the ER last night after a syncopal event. EKG normal. She has been having dizziness since increasing her nortriptyline. Recommended decreasing the dose from 40mg to 30mg (last tolerated dose). Family was asking the ER about the gastric emptying study which had been discussed in the past. L ENGINEERING DIRECTOR documented in this encounter Plan of Treatment Not on file documented as of this encounter Results * Nuclear Medicine gastric emptying (11/04/2019 2:30 PM CIVIL ENGINEERING DIRECTOR) Anatomical Region Laterality Modality Body N/A Nuclear Medicine 11/04/2019 5:22 PM CIVIL ENGINEERING DIRECTOR Impressions 11/04/2019 9:32 PM CIVIL ENGINEERING DIRECTOR Normal gastric emptying study. Dictated by: Jeronimo Khalil MD, PHD The radiology attending physician has personally reviewed this study, and had reviewed and/or edited this written report and agrees with it. Electronically signed by: Patricio London M.D. Narrative 11/04/2019 9:32 PM CIVIL ENGINEERING DIRECTOR EXAMINATION: GASTRIC EMPTYING STUDY DATE OF STUDY: [...] Normal gastric emptying study. Dictated by: Jeronimo hKalil MD, PHD The radiology attending physician has [...] alone documented in this encounter Care Teams Photography Assistant Relationship Specialty Start Date End Date Johnna Tinajero MD [address] [address] PCP - General Pediatrics 07/19/19 01/26/23 Johnna Tinajero MD [address] [address] 07/19/19 documented as of this encounter
--- OUTSIDE RECORDS SUMMARY | 2024-08-28 02:56 | XMS_ITS | Encounter Summary ---
Author Organization [facility] Address [address] [place] [address] [address] [place] [address] Phone Care Team Providers Care Mixer Runner Name Role Phone Johnna Tinajero MD Primary Care Provider + Johnna Tinajero MD Unavailable [phone] Encounter Details Date Type Department Care Team (Late st Contact Info) Description 01/12/2020 Telephone [facility] [address] [place] [address] Johnna Tinajero MD [address] [place] [address] [address] [place] [address] Social History Tobacco Use Types [...] on file Legal Sex Female 11:42 PM PERFORMANCE ARCHITECT Gender Identity Not on file Sexual Orientation [...] pathology finding. ----- Message ----- From: Madyson Rboerts Sent: 01/12/2020 9:46 AM CDT To: Johnna [...] on filedocumented in this encounter Care Teams Mixer Runner Relationship Specialty Start Date End Date Johnna Tinajero MD [address] [address] PCP - General Pediatrics 07/19/19 01/26/23 Johnna Tinajero MD [address] [address] 07/19/19 documented as of this encounter
--- OUTSIDE RECORDS SUMMARY | 2024-08-28 02:56 | XMS_ITS | Encounter Summary ---
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
--- OUTSIDE RECORDS SUMMARY | 2024-08-28 02:56 | XMS_ITS | Encounter Summary ---
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
--- OUTSIDE RECORDS SUMMARY | 2024-08-28 02:56 | XMS_ITS | Encounter Summary ---
Author Organization [facility] Address [address] [place] [address] [address] [place] [address] Phone Care Team Providers Care Prototyper Name Role Phone Johnna Tinajero MD Primary Care Provider + Johnna Tinajero MD Unavailable [phone] Encounter Details Date Type Department Care Team (Late st Contact Info) Description 11/11/2019 Telephone [facility] [address] [place] [address] Johnna Tinajero MD [address] [place] [address] [address] [place] [address] Social History Tobacco Use Types [...] on file 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 Please respond to triage Fax: [facility] - [phone] documented in this encounter Plan of Treatment Not on file documented as of this encounter Visit Diagnoses Not on filedocumented in this encounter Care Teams Prototyper Relationship Specialty Start Date End Date Johnna Tinajero MD [address] [address] PCP - General Pediatrics 07/19/19 01/26/23 Johnna Tinajero MD [address] [address] 07/19/19 documented as of this encounter
--- OUTSIDE RECORDS SUMMARY | 2024-08-28 02:56 | XMS_ITS | Encounter Summary ---
Author Organization [facility] Address [address] [place] [address] [address] [place] [address] Phone Care Team Providers Care Fresco Artist Name Role Phone Johnna Tinajero MD Primary Care Provider + Johnna Tinajero MD Unavailable [phone] Encounter Details Date Type Department Care Team (Late st Contact Info) Description 11/14/2019 Telephone [facility] [address] [place] [address] Johnna Tinajero MD [address] [place] [address] [address] [place] [address] Social History Tobacco Use Types [...] on file 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
--- OUTSIDE RECORDS SUMMARY | 2024-08-28 02:56 | XMS_ITS | Encounter Summary ---
Author Organization [facility] Address [address] [place] [address] Phone Care Team Providers Care Shellfish Checker Name Role Phone Johnna Tinajero MD Primary Care Provider + Johnna Tinajero MD Unavailable [phone] Reason for Visit * Reason Onset Date Comments Letter for School/Work 10/24/2019 Encounter Details Date Type Department Care Team (Late st Contact Info) Description 10/24/2019 Telephone [facility] [address] [facility] [address] [place] [address] Johnna Tinajero MD [address] [place] [address] [address] [place] [address] Letter for School/Work Social History Tobacco Use Types Packs/Day Years Used Date Smoking Tobacco: Never PHQ-2 Answer Date Recorded PHQ-2 Score 4 06/28/2019 Comments No Sex and Gender Information Value Date Recorded Sex Assigned at Not on file 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 Tinajero is comfortable witting letter. Letter prepared, signed by Dr. Zabala and faxed to school. CTOR APPAREL * Telephone Encounter - Any Syed RN - 10/24/2019 3:31 PM DIRECTOR APPAREL ----- Message from Johnna Tinajero MD sent at 10/24/2019 2:12 PM DIRECTOR APPAREL ----- Regarding: RE: School Letter Contact: Good idea, I agree that she should have a pass. Needs to try to stay hydrated as well ----- Message ----- From: Any Syed RN Sent: 10/24/2019 1:13 PM DIRECTOR APPAREL To: Johnna Tinajero MD Subject: School Letter Patient was seen in ED at [facility] last night- see note in chart for syncope like episode. Patients Nortriptyline dose was decrease from 40mg to 30mg. Mother is requesting a letter for school for an elevator pass for the rest of this week as a precautionary so patient does not fall down the stairs. Was able to walk up the stairs at home this morning ok. School- [employer], Attn Mandy Bautista. Please respond to triage. CTOR APPAREL documented in this encounter Plan of Treatment Not on file documented as of this encounter Visit Diagnoses Not on filedocumented in this encounter Care Teams Shellfish Checker Relationship Specialty Start Date End Date Johnna Tinajero MD [address] [address] PCP - General Pediatrics 07/19/19 01/26/23 Johnna Tinajero MD [address] [facility] [address] [place] [address] 07/19/19 documented as of this encounter
--- OUTSIDE RECORDS SUMMARY | 2024-08-28 02:56 | XMS_ITS | Encounter Summary ---
Author Organization [facility] Healthcare Address [address] [place] [address] Care Team Providers Care Environmental Remediation Consultant Name Role Phone Kay Tinajero MD Primary Care Provider + Kay Tinajero MD Unavailable [phone] Reason for Visit * Reason Comments Syncope Encounter Details Date Type Department Care Team (Late st Contact Info) Description 11/02/2019 9:27 PM THREAD GRINDER TOOL - 11/06/2019 3:00 PM CDT Hospital Encounter [facility] [address] [place] [address] Grazyna Capps MD [address] [address] Elpidio Gimenez MD 1 [facility] [address] [place] [address] Fernando Posey MD [address] [address] Pao Allred MD 1 [facility] [address] [place] [id number] Syncope, unspecified syncope type (Primary Dx); Nausea [...] on file Legal Sex Female 11:42 PM THREAD GRINDER TOOL Gender Identity Not on file Sexual Orientation [...] lb 9.3 oz) 11/03/19 20 12:20 AM THREAD GRINDER TOOL Height 163 cm (5' 4.17 ) 11/03/2019 12: 20 AM THREAD GRINDER TOOL Body Mass Index 37.49 11/03/2019 12:20 AM THREAD GRINDER TOOL Body Mass Index Percentile 98.53% 11/02 12:20 AM THREAD GRINDER TOOL Growth Chart: [facility] (Girls, 2- 20 Years) documented in this encounter Discharge Diagnoses Diagnosis Syncope and collapse - SYNCOPE AND COLLAPSE Migraine without aura, not intractable, without status migrainosus - MIGRAINE WITHOUT AURA, NOT INTRACTABLE, WITHOUT STATUS MIGRAINOSUS Obesity, unspecified - OBESITY, UNSPECIFIED Moderate persistent asthma, uncomplicated - MODERATE PERSISTENT ASTHMA, UNCOMPLICATED Anxiety disorder, unspecified - ANXIETY DISORDER, UNSPECIFIED buttermaker continuous churn (current) use of inhaled steroids - CUSTODIAL (CURRENT) USE OF INHALED STEROIDS Other intermediate project manager (current) drug therapy - OTHER PROCESS PLANNER (CURRENT) DRUG THERAPY Irregular menstruation, unspecified - [...] Care Physician at Discharge: Kay Tinajero MD [phone] Admission Date: 11/02/2019 Discharge Date: 11/06/2019 Admission Location: [facility] Chief Complaint: Syncope Hospital Problems/Diagnoses: Principal [...] ibuprofen or tylenol. She was admitted to [facility] in August for intractable vomiting and had [...] outpatient consultation with a member of the [facility] Pediatric Psychology team in the future to address her chronic pain and return to function goals. ?? 2. Continue pharmacotherapy (Lexapro) with primary doctor for managing anxiety. ?? 3. Referred to the [facility] Comfortability pain management workshop. Flyer given to [...] coping. Preferred activities may include watching the [employer] or From[employer] Plus, text messaging with a friend, and [...] Instructions Provider to Notify Please call your carburetor repairer, Kay Tinajero MD, at [phone] for any of the following: persistent fevers [...] 1:00 PM Madyson Kerr MD PhD PED [facility] 2130 Contact Information for Follow-ups Kay Tinajero MD Specialty: Pediatrics Relationship: PCP - General [address] [place] [id number] Next Steps: Follow up Instructions: within 1 [...] recorder after discharge home - Cardiology clinic: [phone] - Cardiology follow up in 6-8 weeks. [...] a headache diary or using the Migraine [employer] kaden to improve understanding of personal headache patterns. - Check out [employer]Plum Baby - Please call the Pediatric Neurology office at [phone] Riggs of worsening migraine [...] Pao Allred MD at 11/05/2019 7:59 PM THREAD GRINDER TOOL AD GRINDER TOOL AD GRINDER TOOL Associated attestation - Pao Allred MD - 11/05/2019 7:59 PM THREAD GRINDER TOOL I have seen and examined the patient [...] sinus rhythm with sinus arrhythmia with short ID ??? Anxiety 07/20/2019 ??? Asthma ??? Nausea [...] 3 in garage Prior Function Level of [place] Independent with ADLs Lives With Family School [...] Ambulates to hallway and back with intermittent PATIENT SVCS MGR and decreased renay. Reports dizziness upon moving [...] assist: 11/05/19 -- Goal Details: With SBA AD GRINDER TOOL * Oneil Nehalelsie Cotto, DO - 11/05/2019 [...] clonus at ankles. Coordination: No dysmetria with bwtdhm-gvuc-ugvycd testing. Gait: Gait deferred today Lab/Radiology/Diagnostic Review: [...] clinic in 3 months. She may call [phone] with any questions or concerns. Neurology Consult team will continue to follow. Please page Neurology Consult Resident on-call via [email or web address] with any questions or concerns. Nehal Riggs DO Pediatric Neurology Resident Cosigned by Magnolia Galaviz MD at 11/06/2019 2:33 PM CDT AD GRINDER TOOL Associated attestation - Magnolia Galaviz MD - 11/06/2019 2:33 PM CDT I have seen and examined the patient on 11/05/2019. I agree with the findings and plan of care as documented in the Neurology resident/fellow's note. Magnolia Olmstead MD PhD Video Rental Clerk Division of Developmental and Pediatric Neurology Department [...] Le MD at 11/06/2019 11:01 AM CDT AD GRINDER TOOL Associated attestation - Margret Le MD - [...] Gimenez MD at 11/07/2019 1:00 PM CDT AD GRINDER TOOL Associated attestation - Elpidio Gimenez MD - [...] ambulance to ER. Passed out in ER. AD GRINDER TOOL * Savita Che RD - 11/03/2019 4:39 [...] sinus rhythm with sinus arrhythmia with short ID ??? Anxiety 07/20/2019 ??? Asthma ??? Nausea [...] (219 lb 9.3 oz) Total Protein DRI (AUTOMATIC SERGING MACHINE OPERATOR/AI): 84.66 Protein DRI grams/kg/day: 0.85 Baseline Fluid Requirement Weight Used for Calculation (kg): 99.6 kg (219 lb 9.3 oz) Total Baseline Fluid Requirements : 3092 Baseline Fluids grams/kg/day: 31.04 Allergies: Dog dander and Penicillins Medications: Patient's active medications have been reviewed. Labs: Pertinent Nutrition Labs Reviewed Dietary Orders (From admission, onward) Start Ordered 11/03/19 0029 Pediatric Diet Regular Diet effective now Question: ([facility]) Diet type Answer: Regular 11/03/19 0028 Care [...] Weights weekly ?? Will follow per policy AD GRINDER TOOL documented in this encounter H&P Notes * [...] ibuprofen or tylenol. She was admitted to [facility] in August for intractable vomiting and had anormal Upper endoscopy and brain MRI. She was followed by GI and has an upcoming neurology appointment here. She denies current anxiety, depression, SI. She is on lexapro managed by her carburetor repairer and sees a therapist regularly. She denies alcohol, tobacco, drug use. Has never been sexually active. She likes school and plans to go to college next year. Past Medical History: Diagnosis Date ??? Abdominal pain 07/20/2019 ??? Abnormal electrocardiography 01/19/2017 Annotation: Saw cardiology 2016 and was cleared, repeat 12/26/19 Normal sinus rhythm with sinus arrhythmia with short ID ??? Anxiety 07/20/2019 ??? Asthma ??? Nausea [...] Elpidio Gimenez MD at 11/03/2019 8:17 AM THREAD GRINDER TOOL AD GRINDER TOOL AD GRINDER TOOL Associated attestation - Elpidio Gimenez MD - 11/03/2019 8:17 AM THREAD GRINDER TOOL I have seen and examined the patient on 11/03/19. I agree with the findings and plan of care as documented in the resident's/fellow's note. documented in this encounter Consult Notes * Nehal Riggs DO - 11/04/2019 11:36 AM CSTAssociated Order(s): IP CONSULT TO NEUROLOGY Pediatric Neurology Consultation Note Patient Name: NINA COYNE Medical Record Number (MRN): [id number] Date of (): 2000 Encounter Date: 11/02/2019 [...] follows with GI. ?? Development Parents and carburetor repairer had no concerns for delays in development [...] sinus rhythm with sinus arrhythmia with short ID ??? Anxiety 07/20/2019 ??? Asthma ??? Nausea [...] file Gets together: Not on file Attends mormonism service: Not on file Active member of [...] headaches and nausea. She will be attending [employer] in the Fall. No IEP. Vitals: [...] with plantar stimulation. Coordination: No dysmetria with amynag-dose-qmauvj testing. Gait: Normal based gait. Lab/Radiology/Diagnostic Review: [...] of unconsciousness, she returned right back to [facility]. She was found to have [...] clinic in 3 months. She may call [phone] with any questions or concerns. Neurology Consult team will continue to follow. Please page Neurology Consult Resident on-call via [employer] with any questions or concerns. Nehal Riggs DO Pediatric Neurology Resident Cosigned by Franklin Godinez MD at 11/04/2019 5:56 PM THREAD GRINDER TOOL AD GRINDER TOOL AD GRINDER TOOL AD GRINDER TOOL Associated attestation - Franklin Godinez MD - 11/04/2019 5:56 PM THREAD GRINDER TOOL I have seen and examined the patient [...] of Psychology may be sharedwith other health nonfarm animal caretaker participating in the patient's care at [facility]. The family denied any concerns and expressed their understanding. This psychologist's contact information was also provided to the family. Presenting Concerns Nina Coyne is a 19 y.o. female with a history of anxiety, chronic nausea, and headaches, who was admitted to [facility] on 11/02/2019 for SYNCOPE. Primary concerns prompting [...] ibuprofen or tylenol. She was admitted to [facility] in August for intractable vomiting and had [...] Lexapro is managed by her PMD at [facility]. Medical History According to medical records, Nina's history is significant for: Principal Problem: Vasovagal syncope Mother reported this is Nina's third admission since July 2019. Initially she was admitted fornausea and severe abdominal pain in July. They attributed these issues to cyst on her ovary so she was d/c with arian and plan to f/u with ob-licensed aircraft maintenance engineer. She later saw ob-licensed aircraft maintenance engineer and started control for the cyst. She [...] but mother thinks Nina has beencoping well. 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 She has been accepted at [employer] and will be attending in the [...] nausea, and headaches, who was admitted to [facility] on 11/02/2019 for SYNCOPE. Primary concerns prompting [...] may also benefit from future [facility] Comfortability for additional support [...] outpatient consultation with a member of the [facility] Pediatric Psychology team in the future to address her chronic pain and return to function goals. 2. Continue pharmacotherapy (Lexapro) with primary doctor for managing anxiety. 3. Referred to the [facility] Comfortability pain management workshop. Flyer given to [...] coping. Preferred activities may include watching the [employer] or From[employer] Plus, text messaging with a friend, and [...] indicated understanding. Plan A member of the [facility] Psychology team will try to see Nina [...] concerns. Magnolia Moreno, PhD Licensed Psychologist Call/Text: [phone] Start Time: 3:30pm Stop Time: 4:15pm Total Time: 45 minutes CPT: 20335, Health & Behavior Assessment AD GRINDER TOOL * Franklin Young MD - 11/03/2019 3:27 [...] sinus rhythm with sinus arrhythmia with short ID ??? Anxiety 07/20/2019 ??? Asthma ??? Nausea [...] school and is planning to go to [employer] next year to study health sciences. [...] for intracranial pathology. Franklin Young MD Pediatric Stunt Double Thank you for allowing us to participate in the care of this patient. If you have any additional questions, please feel free to contact the cardiology consult fellow at [phone] during weekdays 8:30am-4pm. On nights and weekends, the on-call retail presentation specialist can be reached at [phone]. Appointments for patients can be made by calling the office at [phone]. Cosigned by Aimee Curry MD at 11/03/2019 4:44 PM THREAD GRINDER TOOL AD GRINDER TOOL AD GRINDER TOOL Associated attestation - Aimee Curry MD - 11/03/2019 4:44 PM THREAD GRINDER TOOL I have seen and examined the patient [...] EKG/Min 83 BPM Atrial Rate 83 BPM ID-Interval (MSEC) 138 ms QRS-Interval (MSEC) 78 ms QT-Interval (MSEC) 374 ms QTc 445 ms P [place] 26 degrees R Canaan -4 degrees T [place]aan 0 degrees Diagnosis Normal sinus rhythm Low voltage QRS Early repolarization Otherwise normal ECG When compared with ECG of 24-OCT-2019 02:51, QT has shortened Confirmed by fellow MD NESTOR, ROGELIO ([id number]) on 11/03/2019 12:52:32 AM I have personally reviewed the study and I agree with the above findings Confirmed by MD NISHA, FELICE ([id number]) on 11/03/2019 7:09:59 AM CBC with auto [...] Trudi Garnett MD at 11/03/2019 7:53 PM THREAD GRINDER TOOL AD GRINDER TOOL AD GRINDER TOOL Associated attestation - Trudi Garnett MD - 11/03/2019 7:53 PM THREAD GRINDER TOOL I have seen and examined the patient [...] ??? Vasovagal syncope 10/25/2019 ??? Mild malnutrition (CMS/[facility]) 09/15/2019 ??? Chronic nausea 08/15/2019 ??? Abdominal [...] sinus rhythm with sinus arrhythmia with short ID ??? Anxiety 07/20/2019 ??? Asthma ??? Nausea [...] Capps MD at 11/16/2019 7:49 AM CDT AD GRINDER TOOL Associated attestation - Grazyna Capps MD - [...] and 4mg IV Zofran given at 1630. AD GRINDER TOOL documented in this encounter Miscellaneous Notes * [...] I&O Summary: headaches 4-7, received migraine cocktail AD GRINDER TOOL * Assessment & Plan Note - Sera Gonzalez MD - 11/05/2019 2:21 PM THREAD GRINDER TOOL Associated Problem(s): History of migraine headaches Patient [...] therapy recommended. -- outpatient follow-up with Neurology. AD GRINDER TOOL AD GRINDER TOOL * Assessment & Plan Note - Sera Gonzalez MD - 11/05/2019 2:18 PM THREAD GRINDER TOOL Associated Problem(s): Vasovagal syncope Nina presented following [...] - PT consult for isometric exercise teaching AD GRINDER TOOL AD GRINDER TOOL * Assessment & Plan Note - Sera Gonzalez MD - 11/05/2019 2:12 PM THREAD GRINDER TOOL Associated Problem(s): Chronic nausea GI was consulted [...] - Referral to Functional Abdominal Pain Clinic AD GRINDER TOOL * Subjective & Objective - Sera Gonzalez MD - 11/05/2019 2:04 PM THREAD GRINDER TOOL Pediatric Daily Progress Subjective Chief complaint of [...] Cortisol 20.2 (H) 4.8 - 19.5 mcg/dL AD GRINDER TOOL * Plan of Care - Jaswant Phan RN - 11/04/2019 11:56 PM CST Goals: Clinical Goals for the Shift: comfort; no further syncopal episode Summary: Reviewed overnight plan of care with patient, mother. Encouraged po, safety, comfort, rest. AD GRINDER TOOL * Plan of Care - Haily Becker [...] free from injury will improve Outcome: Progressing AD GRINDER TOOL * Hospital Course - Sera Gonzalez MD - 11/04/2019 6:02 PM THREAD GRINDER TOOL On admission, she had no further episodes [...] she would benefit from following with the [facility] Abdominal Pain clinic. They recommended decreasing [...] were no symptoms of syncope or pre-syncope. AD GRINDER TOOL AD GRINDER TOOL * Assessment & Plan Note - Arnoldo Esposito MD - 11/04/2019 5:21 PM THREAD GRINDER TOOL Associated Problem(s): Chronic nausea GI was consulted [...] - Referral to Functional Abdominal Pain Clinic AD GRINDER TOOL AD GRINDER TOOL AD GRINDER TOOL AD GRINDER TOOL * Assessment & Plan Note - Arnoldo Esposito MD - 11/04/2019 5:08 PM THREAD GRINDER TOOL Associated Problem(s): Vasovagal syncope Nina presented following [...] Follow up Neurology, Cardiology, and GI recommendations AD GRINDER TOOL AD GRINDER TOOL AD GRINDER TOOL AD GRINDER TOOL * Subjective & Objective - Arnoldo Esposito MD - 11/04/2019 3:20 PM THREAD GRINDER TOOL Pediatric Daily Progress Subjective Chief complaint of [...] Macrophages, CSF 0 0 - 0 % AD GRINDER TOOL AD GRINDER TOOL * Post-Procedure Note - Fernando Mendez MD - 11/04/2019 1:40 PM CST Neuroradiology Brief Post Procedure Note Attending: Dr. Paez Textile Machine Maintenance Mechanic: Dr. Mendez Sedation/Anesthesia: Local Pre-procedure diagnosis: Headache, [...] tube Condition: Stable Full report to follow. AD GRINDER TOOL * Plan of Care - Jaswant Phan RN - 11/04/2019 1:16 AM CST Goals: Clinical Goals for the Shift: comfort; no further syncopal episode Summary: Reviewed overnight plan of care with patient, mother. Encouraged po, safety, comfort, rest. AD GRINDER TOOL * Plan of Care - Sanjana Trevizo [...] Shift: comfort; no further syncopal episode Summary: AD GRINDER TOOL * Plan of Care - Vicki Dey [...] further syncopal episodes. Will continue to monitor. AD GRINDER TOOL * Assessment & Plan Note - Viktor [...] - Consider neurology consult vs. outpatient appointment AD GRINDER TOOL AD GRINDER TOOL AD GRINDER TOOL * Subjective & Objective - Viktor Villagomez [...] ibuprofen or tylenol. She was admitted to [facility] in August for intractable vomiting and had anormal Upper endoscopy and brain MRI. She was followed by GI and has an upcoming neurology appointment here. She denies current anxiety, depression, SI. She is on lexapro managed by her carburetor repairer and sees a therapist regularly. She denies alcohol, tobacco, drug use. Has never been sexually active. She likes school and plans to go to college next year. Past Medical History: Diagnosis Date ??? Abdominal pain 07/20/2019 ??? Abnormal electrocardiography 01/19/2017 Annotation: Saw cardiology 2016 and was cleared, repeat 08/25/19 Normal sinus rhythm with sinus arrhythmia with short ID ??? Anxiety 07/20/2019 ??? Asthma ??? Nausea [...] this shift: In: 399 [I.V.:399] Out: 0 AD GRINDER TOOL AD GRINDER TOOL AD GRINDER TOOL * ED Pre-Arrival Note - Alfred Simms EMT - 11/02/2019 5:16 PM THREAD GRINDER TOOL Pre-Arrival Note 19 y.o. female; Syncope; pt. Had syncope episode lasting 10 minutes per mother, now baseline, A&O x 4, VSS, 3 prior syncopal episodes prior to today. MAGALIE Flores AD GRINDER TOOL documented in this encounter Plan of Treatment Not on file documented as of this encounter Procedures Procedure Name Priority Date/Time Associated Diagnosis Comments CORTISOL Timed 11/05/2019 8:28 AM THREAD GRINDER TOOL IR LUMBAR PUNCTURE, THERAPEUTIC INCL FLUORO GUIDANCE IP Routine 11/04/2019 1:24 PM THREAD GRINDER TOOL PED ONC CELL COUNT AND DIFFERENTIAL, CSF STAT 11/04/2019 1:24 PM THREAD GRINDER TOOL CELL DIFFERENTIAL, CSF STAT 11/04/2019 1:24 PM THREAD GRINDER TOOL CELL COUNT W REFLEX DIFFERENTIAL, CSF STAT 11/04/2019 1:24 PM THREAD GRINDER TOOL SAVE CSF STAT 11/04/2019 1:24 PM THREAD GRINDER TOOL HOMOVANILLIC ACID, URINE, RANDOM Routine 11/04/2019 11:42 AM THREAD GRINDER TOOL VMA, URINE, RANDOM Routine 11/04/2019 11 :42 AM THREAD GRINDER TOOL HCG, BLOOD, QUANTITATIVE STAT 11/02/2019 11:39 PM THREAD GRINDER TOOL XR CHEST PA LATERAL 2 VIEWS ED 11/02/2019 10:29 PM THREAD GRINDER TOOL CALCIUM,IONIZED, WHOLE BLOOD STAT 11/02/2019 10:13 PM THREAD GRINDER TOOL DIFFERENTIAL AUTO STAT 11/02/2019 10: 13 PM THREAD GRINDER TOOL CREATININE, WHOLE BLOOD STAT 11/02/2019 10:13 PM THREAD GRINDER TOOL GLUCOSE, WHOLE BLOOD STAT 11/02/2019 10:13 PM THREAD GRINDER TOOL ELECTROLYTES, WHOLE BLOOD STAT 11/02/2019 10:13 PM THREAD GRINDER TOOL CBC WITH AUTO DIFFERENTIAL STAT 11/02/2019 10:13 PM THREAD GRINDER TOOL TROPONIN I Routine 11/02/2019 10:13 PM THREAD GRINDER TOOL ECG 12-LEAD Routine 11/02/2019 10:10 PM THREAD GRINDER TOOL documented in this encounter Results * (ABNORMAL) Cortisol (11/05/2019 8:28 AM THREAD GRINDER TOOL) [facility] Cortisol 20.2(H) 4.8 - 19.5 mcg/dL [facility] Comment: Interpretive Data Reference Interval: AM: 4.8-19.5 [...] 2016. Blood specimen (specimen) 11/05/2019 8:28 AM THREAD GRINDER TOOL 11/05/2019 8:30 AM THREAD GRINDER TOOL us Elpidio Gimenez MD LAB BLOOD ORDERABLES Final Re sult [facility] Department [place] [address] * IR Lumbar Puncture, Therapeutic incl Fluoro Guidance (11/04/2019 1:24 PM THREAD GRINDER TOOL) Anatomical Region Laterality Modality Spine N/A X-Ray Angiograph y 11/04/2019 1:55 PM THREAD GRINDER TOOL Impressions 11/04/2019 2:02 PM THREAD GRINDER TOOL Successful lumbar puncture under fluoroscopic guidance. ??Elevated CSF opening pressure, with normalization after CSF removal. ?? Dictated by: Fernando Mendez M.D. The radiology attending physician has personally reviewed this study, and had reviewed and/or edited this written report and agrees with it. Electronically signed by: Neal Paez Narrative 11/04/2019 2:02 PM THREAD GRINDER TOOL EXAMINATION: Diagnostic and therapeutic lumbar puncture (LP) [...] (ABNORMAL) Cell Differential, CSF (11/04/2019 1:24 PM THREAD GRINDER TOOL) Total cells diffed 2 cells [facility] [...] % [facility] CSF 11/04/2019 1:24 PM THREAD GRINDER TOOL 11/04/2019 1:25 PM THREAD GRINDER TOOL us Elpidio Gimenez MD LAB BODY FLUIDS AND STOOLS OR DERABLES Final Result [facility] Department [place] [address] * Cell Count, CSF (11/04/2019 1:24 PM THREAD GRINDER TOOL) Tube Number, CSF Tube 3 [facility] Color, CSF Colorless Colorless [facility] Clarity, CSF Clear Clear [facility] Xanthochromia , CSF Absent Absent [facility] Nucleated cells, CSF 0 0 - 5 /cumm [facility] RBC, CSF 0 0 - 0 /cumm [facility] CSF 11/04/2019 1:24 PM THREAD GRINDER TOOL 11/04/2019 1:25 PM THREAD GRINDER TOOL Elpidio Gimenez MD LAB BODY FLUIDS AND STOOLS OR DERABLES Final Result Performing Organization Address [facility] [place] [place] [address] * Save CSF (11/04/2019 1:24 PM THREAD GRINDER TOOL) Save, CSF 5.0 mL stored in Serology for 3 months in freezer location save2. [facility] CSF 11/04/2019 1:24 PM THREAD GRINDER TOOL 11/04/2019 1:25 PM THREAD GRINDER TOOL Elpidio Gimenez MD LAB BODY FLUIDS AND STOOLS OR DERABLES Final Result Performing Organization Address [facility] [place] [address] * Homovanillic acid, urine, random (11/04/2019 11:42 AM THREAD GRINDER TOOL) Pathologist [facility] HVA 2.6 <8.0 mg/g CR [facility] Comment: ADDITIONAL INFORMATION Liquid Chromatography-Tandem Mass Spectrometry (LC-MS/MS). Values obtained from different assay methods or kits may be different and cannot be used interchangeably. The results cannot be interpreted as absolute evidence for the presence or absence of malignant disease. This test was developed and its performance characteristics determined by [facility] in a manner consistent with CLIA requirements. This test has not been cleared or approved by the U.S. Food and Drug Administration. Test Performed by: [facility] [place] [address] Pit Crew Support Worker: Viktor Cannon M.D. Ph.D.; CLIA# [id number] Urine 11/04/2019 11:4 2 AM THREAD GRINDER TOOL 11/04/2019 11:48 AM THREAD GRINDER TOOL Elpidio Gimenez MD LAB URINE ORDERABLES Final Re sult Performing Organization Address [facility] [place] [address] * VMA, urine, random (11/04/2019 11:42 AM THREAD GRINDER TOOL) VMA child, 24 hr ur 1.3 <7.0 mg/g CR [facility] Comment: ADDITIONAL INFORMATION Liquid Chromatography-Tandem Mass Spectrometry (LC-MS/MS). Values obtained from different assay methods or kits may be different and cannot be used interchangeably. The results cannot be interpreted as absolute evidence for the presence or absence of malignant disease. This test was developed and its performance characteristics determined by [facility] in a manner consistent with CLIA requirements. This test has not been cleared or approved by the U.S. Food and Drug Administration. Test Performed by: [place] [address] Pit Crew Support Worker: Viktor Cannon M.D. Ph.D.; CLIA# [id number] Urine 11/04/2019 11:4 2 AM THREAD GRINDER TOOL 11/04/2019 11:48 AM THREAD GRINDER TOOL us Elpidio Gimenez MD LAB URINE ORDERABLES Final RUST Performing Organization Address [facility] [place] [address] * hCG, blood, quantitative (11/02/2019 11:39 PM THREAD GRINDER TOOL) hCG, quant <5.0 0.0 - 5.0 IUnits/L [facility] Comment: Interpretive Data Male: <5.0 IUnits/L Non- [...] last revised on 2018. Testing performed by: [facility], [address] [place]., [address] Blood specimen (specimen) 11/02/2019 11:39 PM THREAD GRINDER TOOL 11/03/2019 12:12 AM THREAD GRINDER TOOL us Zena Forrester MD LAB BLOOD ORDERABLES Final Result [facility] Department [place] [address] * XR Chest Pa Lateral 2 Views (11/02/2019 10:29 PM THREAD GRINDER TOOL) Anatomical Region Laterality Modality Body, Chest N/A Computed Radiogr aphy 11/02/2019 10:4 4 PM THREAD GRINDER TOOL Impressions 11/03/2019 7:11 AM THREAD GRINDER TOOL Normal. Dictated by: Db Gonzalez M.D. The radiology attending physician has personally reviewed this study, and had reviewed and/or edited this written report and agrees with it. Electronically signed by: Sherly To M.D. Narrative 11/03/2019 7:11 AM THREAD GRINDER TOOL EXAMINATION: ??XR CHEST PA LATERAL 2 VIEWS [...] * (ABNORMAL) Differential, auto (11/02/2019 10:13 PM THREAD GRINDER TOOL) Neutrophil abs 6.1 1.7 - 6.5 K/cumm [...] revised on 2017. Basophil pct 0.8 % [facility] Comment: Interpretive Data Percent cell count reference ranges are not reported, since discordance with absolute values may lead to misinterpretation of CBC data. Current Interpretive Data was last revised on 2017. Blood specimen (specimen) 11/02/2019 10:13 PM THREAD GRINDER TOOL 11/02/2019 10:20 PM THREAD GRINDER TOOL Result [facility] Florina Loco MD LAB BLOOD ORDERABLES Fin al Result Performing Organization Address [facility] [place] [address] * Troponin I (11/02/2019 10:13 PM THREAD GRINDER TOOL) Troponin I <0.03 0.00 - 0.03 ng/mL [facility] Comment: Interpretive Data: Normal plasma Troponin I [...] for Troponin assay. References: 1. Clin Chem 2013;59:[id number] 2. Journal of the [place] College [employer] Cardiology 2012;60:1581-98 Current Interpretive Data Last Revised Date: 2018. Blood specimen (specimen) 11/02/2019 10:13 PM THREAD GRINDER TOOL 11/02/2019 10:20 PM THREAD GRINDER TOOL Result [facility] Florina Loco MD LAB BLOOD ORDERABLES Fin al Result Performing Organization Address [facility] [place] [address] * Creatinine, whole blood (11/02/2019 10:13 PM THREAD GRINDER TOOL) Creatinine, bld 0.8 0.4 - 1.0 mg/dL [facility] Blood specimen (specimen) 11/02/2019 10:13 PM THREAD GRINDER TOOL 11/02/2019 10:20 PM THREAD GRINDER TOOL Florina Loco MD LAB BLOOD ORDERABLES Fin al Result Performing Organization Address City/[facility] [place] [address] * Calcium, ionized, whole blood (11/02/2019 10:13 PM THREAD GRINDER TOOL) Ca, ionized, bld 4.65 3.90 - 5.20 mg/dL [facility] Blood specimen (specimen) 11/02/2019 10:13 PM THREAD GRINDER TOOL 11/02/2019 10:20 PM THREAD GRINDER TOOL Result [facility] Florina Loco MD LAB BLOOD ORDERABLES Fin al Result Performing Organization Address [facility] de Phone Number [employer] [facility] [place] [address] * Glucose, whole blood (11/02/2019 10:13 PM THREAD GRINDER TOOL) Glucose, bld 81 70 - 199 mg/dL [facility] Blood specimen (specimen) 11/02/2019 10:13 PM THREAD GRINDER TOOL 11/02/2019 10:20 PM THREAD GRINDER TOOL Florina Loco MD LAB BLOOD ORDERABLES Fin al Result Performing Organization Address [facility] [place] [address] * Electrolytes, whole blood (11/02/2019 10:13 PM THREAD GRINDER TOOL) Sodium, Whole Blood 140 135 - 145 mmol/L [facility] Potassium, bld 3.7 3.3 - 4.9 mmol/L [facility] Chloride, bld 106 100 - 114 mmol/L [facility] CO2, Total Calculated, Whole Blood 26 20 - 30 mmol/L [facility] Anion Gap, Whole Blood 9 mmol/L [facility] Blood specimen (specimen) 11/02/2019 10:13 PM THREAD GRINDER TOOL 11/02/2019 10:20 PM THREAD GRINDER TOOL Florina Loco MD LAB BLOOD ORDERABLES Fin al Result [facility] Department [place] [address] * (ABNORMAL) CBC with auto differential (11/02/2019 10:13 PM THREAD GRINDER TOOL) WBC 10.2(H) 3.8 - 9.9 K/cumm [facility] Hgb 12.7 11.9 - 15.5 g/dL [facility] Hct 38.0 35.6 - 45.5 % [facility] Plt 357 150 - 400 K/cumm [facility] MPV 9.5 9.1 - 12.3 fL [facility] RBC 4.29 3.90 - 5.20 M/cumm [facility] MCV 88.6 81.3 - 96.4 fL [facility] MCH 29.6 27.1 - 33.3 pg [facility] MCHC 33.4 32.3 - 35.7 g/dL [facility] RDW CV 13.3 11.1 - 14.9 % [facility] RDW SD 43.4 35.7 - 48.1 fL [facility] NRBC abs 0.00 0.00 - 0.01 K/cumm [facility] Blood specimen (specimen) (Blood, Venous) 11/02/2019 10:13 PM THREAD GRINDER TOOL 11/02/2019 10:20 PM THREAD GRINDER TOOL Florina Loco MD LAB BLOOD ORDERABLES Fin al Result [facility] Department [place] [address] * ECG 12 lead (11/02/2019 10:10 PM THREAD GRINDER TOOL) Ventricular Rate EKG/Min 83 BPM [facility] Atrial Rate 83 BPM [facility] ID-Interval (MSEC) 138 ms [facility] QRS-Interval (MSEC) 78 ms [facility] QT-Interval (MSEC) 374 ms [facility] QTc 445 ms [facility] P [place] 26 degrees [facility] R [place] -4 degrees [facility] T [place] 0 degrees [facility] Diagnosis Normal sinus rhythm Low voltage QRS Early repolarization Otherwise normal ECG When compared with ECG of 24-OCT-2019 02:51, QT has shortened Confirmed by fellow MD NESTOR, ROGELIO ([id number]) on 11/03/2019 12:52:32 AM I have personally reviewed the study and I agree with the above findings Confirmed by MD NISHA, FELICE ([id number]) on 11/03/2019 7:09:59 AM [facility] 11/02/2019 10:1 0 PM THREAD GRINDER TOOL 11/03/2019 7:09 AM THREAD GRINDER TOOL us Florina Loco MD ECG ORDERABLES Final Re sult [facility] documented in this encounter Visit Diagnoses Diagnosis [...] = 650 mg Given 11/02/2019 8:28 PM THREAD GRINDER TOOL 650 mg acetaminophen (TYLENOL) tablet 650 mg 650 mg, oral, Every 6 hours PRN, 1st line for pain, headaches, Starting on Celia 11/03/19 at 0908 Given 11/04/2019 6:17 PM THREAD GRINDER TOOL 650 mg dextrose 5% and sodium chloride 0.9% with potassium chloride 20 mEq/L infusion (premix) 1.5 L/m2/day ? 2.14 m2 (133.75 mL/hr, rounded to 133.8 mL/hr), intravenous, Continuous, Starting on Celia 11/03/19 at 0100 New Bag 11/05/2019 5:02 AM THREAD GRINDER TOOL 1.5 L/m2/day 133.8 mL/hr New Bag 11/04/2019 4:39 PM THREAD GRINDER TOOL 1.5 L/m2/day 133.8 mL/hr New Bag 11/04/2019 8:19 AM THREAD GRINDER TOOL 1.5 L/m2/day 133.8 mL/hr diphenhydrAMINE (BENADRYL) injection 25 mg 25 mg, intravenous, Administer over 15 Minutes, Once, On Thu11/02/19 at 2204, For 1 dose Given 11/02/2019 10:50 PM THREAD GRINDER TOOL 25 mg diphenhydrAMINE (BENADRYL) injection 25 mg 25 mg, intravenous, Administer over 15 Minutes, Once, On Thu11/05/19 at 1245, For 1 dose Given 11/05/2019 1:08 PM THREAD GRINDER TOOL 25 mg diphenhydrAMINE (BENADRYL) injection 25 mg 25 mg, intravenous, Administer over 15 Minutes, Every 6 hours scheduled, First dose on Thu11/05/19 at 2000, With toradol, compazine for migraine cocktail Given 11/06/2019 4:13 AM CDT 25 mg Given 11/05/2019 7:48 PM THREAD GRINDER TOOL 25 mg escitalopram (LEXAPRO) tablet 20 mg 20 mg, oral, Nightly, First dose on Thu11/03/19 at 0200 Given 11/05/2019 8:03 PM THREAD GRINDER TOOL 20 mg Given 11/04/2019 9:40 PM THREAD GRINDER TOOL 20 mg Given 11/03/2019 9:32 PM THREAD GRINDER TOOL 20 mg fluticasone furoate-vilanteroL (BREO ELLIPTA) 100-25 mcg/dose inhaler 1 puff 1 puff, inhalation, Nightly, First dose (after last modification) on Celia 11/03/19 at 0400, Drug Name: fluticason furoate-vilanterol (Breo Ellipta) 100-25 mcg/dose diskus inhaler, Form: inhaler, Length of Therapy: Indefinite, How soon needed? (normally 72 hrs needed to procure): 0-24 hrs, Reason for Non-Formulary: not on formulary Given 11/05/2019 8:03 PM THREAD GRINDER TOOL 1 puff Given 11/04/2019 9:39 PM THREAD GRINDER TOOL 1 puff Given 11/03/2019 9:36 PM THREAD GRINDER TOOL 1 puff ketorolac (TORADOL) 15 mg/mL injection 15 mg 15 mg, intravenous, Administer over 5 Minutes, Once, On Thu11/02/19 at 2204, For 1 dose Given 11/02/2019 10:54 PM THREAD GRINDER TOOL 15 mg ketorolac (TORADOL) 15 mg/mL injection 30 mg 30 mg, intravenous, Administer over 5 Minutes, Every 6 hours, First dose on Thu11/05/19 at 1245, For 5 days, Maximum dose = 30 mg Given 11/06/2019 4:13 AM CDT 30 mg Given 11/05/2019 7:48 PM THREAD GRINDER TOOL 30 mg Given 11/05/2019 1:46 PM THREAD GRINDER TOOL 30 mg lansoprazole (PREVACID) capsule 15 mg 15 mg, oral, 2 times daily, First dose on Thu11/03/19 at 0900, Capsules may be opened and contents mixed with food or beverage. Contents should not be crushed or chewed after mixing., Indications: Treatment of Non-Bleeding Gastric DisorderIndications:Treatment of Non-Bleeding Gastric Disorder Given 11/05/2019 8:03 PM THREAD GRINDER TOOL 15 mg Given 11/05/2019 8:54 AM THREAD GRINDER TOOL 15 mg Given 11/04/2019 9:40 PM THREAD GRINDER TOOL 15 mg lansoprazole (PREVACID) capsule 15 mg [...] For 1 dose Given 11/04/2019 12:39 PM THREAD GRINDER TOOL 1 mg norgestimate-ethinyl estradioL (ORTHO TRI-CYCLEN LO) 0.18/0.215/0.25 mg-25 mcg per tablet 1 tablet 1 tablet, oral, Nightly, First dose on Thu11/03/19 at 0200, Drug Name: norgestimate-ethinyl estradiol (Ortho Tri-cyclen Lo) 0.18/0.215/0.25 mg-25 mcg per tablet, Form: tablet, Length of Therapy: Indefinite, How soon needed? (normally 72 hrs needed to procure): 0-24 hrs, Reason for Non-Formulary: Not on formulary Given 11/05/2019 8:03 PM THREAD GRINDER TOOL 1 tablet Given 11/04/2019 9:40 PM THREAD GRINDER TOOL 1 tablet Given 11/03/2019 9:36 PM THREAD GRINDER TOOL 1 tablet nortriptyline (PAMELOR) capsule 10 mg 10 mg, oral, Daily, First dose on Celia 11/03/19 at 0900 Given 11/05/2019 8:55 AM THREAD GRINDER TOOL 10 mg Given 11/03/2019 9:42 AM THREAD GRINDER TOOL 10 mg nortriptyline (PAMELOR) capsule 10 mg 10 mg, oral, Nightly, First dose (after last modification) on 11/05/19 at 2100 Given 11/05/2019 8:11 PM THREAD GRINDER TOOL 10 mg nortriptyline (PAMELOR) capsule 10 mg 10 mg, oral, 2 times daily, First dose on Thu11/06/19 at 0900 Given 11/06/2019 9:37 AM CDT 10 mg nortriptyline (PAMELOR) capsule 20 mg 20 mg, oral, Nightly, First dose on Celia 11/03/19 at 0200 Given 11/04/2019 9:41 PM THREAD GRINDER TOOL 20 mg Given 11/03/2019 9:37 PM THREAD GRINDER TOOL 20 mg Given 11/03/2019 2:24 AM THREAD GRINDER TOOL 20 mg prochlorperazine (COMPAZINE) injection 10 mg 10 mg, intravenous, Administer over 5 Minutes, Once, On Thu11/02/19 at 2204, For 1 dose Given 11/02/2019 10:52 PM THREAD GRINDER TOOL 10 mg prochlorperazine (COMPAZINE) injection 10 mg 10 mg (rounded from 9.96 mg = 0.1 mg/kg ? 99.6 kg Dosing weight), intravenous, Administer over 5 Minutes, Every 6 hours, First dose on 11/05/19 at 1245, Maximum dose = 10 mg Given 11/06/2019 4:13 AM CDT 10 mg Given 11/05/2019 7:48 PM THREAD GRINDER TOOL 10 mg Given 11/05/2019 1:39 PM THREAD GRINDER TOOL 10 mg sodium chloride 0.9% bolus 1,000 mL 1,000 mL, intravenous, Once, On 11/02/19 at 2204, For 1 dose Rate/Dose Verify 11/02/2019 11:36 PM THREAD GRINDER TOOL New Bag 11/02/2019 10:50 PM THREAD GRINDER TOOL 1,000 mL documented in this encounter Discontinued [...] this section may contain times in both THREAD GRINDER TOOL and CDT. Scheduled Medication Order 11/04/2019 11/05/2019 [...] 11/02/2019 documented in this encounter Care Teams Environmental Remediation Consultant Relationship Specialty Start Date End Date Kay Tinajero MD [address] [address] PCP - General Pediatrics 07/19/19 01/26/23 Kay Tinajero MD [address] [address] 07/19/19 documented as of this encounter
--- OUTSIDE RECORDS SUMMARY | 2024-08-28 02:56 | XMS_ITS | Encounter Summary ---
Author Organization [facility] Address [address] [place] [address] [address] [place] [address] Phone Care Team Providers Care Tax Assistant Name Role Phone Johnna Tinajero MD Primary Care Provider + Johnna Tinajero MD Unavailable [phone] Encounter Details Date Type Department Care Team (Late st Contact Info) Description 11/02/2019 Telephone [facility] [address] [place] [address] Johnna Tinajero MD [address] [place] [address] Social History Tobacco Use Types Packs/Day [...] on file 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 PC to [facility] ED as she has had to be seen there recently and may be taken there if stable and regains consciousness. On-call physician and PCP made aware. IOLOGY TECH documented in this encounter Plan of Treatment Not on file documented as of this encounter Visit Diagnoses Not on filedocumented in this encounter Care Teams Tax Assistant Relationship Specialty Start Date End Date Johnna Tinajero MD [facility] [address] [address] PCP - General Pediatrics 07/19/19 01/26/23 Johnna Tinajero MD [address] [place] [address] 07/19/19 documented as of this encounter
--- OUTSIDE RECORDS SUMMARY | 2024-08-28 02:56 | XMS_ITS | Encounter Summary ---
Author Organization [facility] Address [address] [place] [address] Phone Care Team Providers Care Batch Still Operator Name Role Phone Johnna Tinajero MD Primary Care Provider + Johnna Tinajero MD Unavailable [phone] Reason for Visit * Reason Onset Date Comments migraines 11/10/2019 Encounter Details Date Type Department Care Team (Late st Contact Info) Description 11/10/2019 Telephone [facility] Pediatric Neurology [facility] 2nd [place] [address] [place] [address] Nehal Riggs, DO [address] [place] [address] migraines Social History Tobacco Use [...] file 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
--- OUTSIDE RECORDS SUMMARY | 2024-08-28 02:56 | XMS_ITS | Encounter Summary ---
Author Organization [facility] Address [address] [place] [address] Phone Care Team Providers Care Auto Repair Shop Manager Name Role Phone Johnna Tinajero MD Primary Care Provider + Johnna Tniajero MD Unavailable [phone] Encounter Details Date Type Department Care Team (Late st Contact Info) Description 11/03/2019 Telephone [facility] Pediatric Neurology [address] [facility] [facility] [address] [place] [address] Nehal Riggs, DO [address] [place] [address] Social History Tobacco Use Types [...] file 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 ?? GER COSTING GER COSTING GER COSTING documented in this encounter Plan of Treatment Not on file documented as of this encounter Visit Diagnoses Not on filedocumented in this encounter Care Teams Auto Repair Shop Manager Relationship Specialty Start Date End Date Johnna Tinajero MD [address] [address] PCP - General Pediatrics 07/19/19 01/26/23 Johnna Tinajero MD [address] [address] 07/19/19 documented as of this encounter
--- OUTSIDE RECORDS SUMMARY | 2024-08-28 02:56 | XMS_ITS | Encounter Summary ---
Author Organization [facility] Address [address] [place] [address] Care Team Providers Care Rides Attendant Name Role Phone Johnna Tinajero MD Primary Care Provider + Johnna Tinajero MD Unavailable [phone] Reason for Referral * (Routine) - Closed Specialty Diagnoses / Procedures Referred By [place] Referred To Contact Diagnoses Vasovagal syncope Procedures Pediatric Event Monitor With Loop Franklin Young MD [facility] [place] [facility] (All Locations) Referral ID Status Reason Start Date Expiration Date Visits Re quested Visits Authorized [id number] Closed 11/03/2019 05/14/2021 1 1 AL INSTRUCTOR Encounter Details Date Type Department Care Team (Late st Contact Info) Description 11/03/2019 Orders Only Pediatric Cardiology Franklin Young MD [address] [facility] [address] [place] [address] Vasovagal syncope (Primary Dx) Social History Tobacco [...] on file 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
--- OUTSIDE RECORDS SUMMARY | 2024-08-28 02:56 | XMS_ITS | Encounter Summary ---
Author Organization [facility] Address [address] [place] [address] Phone Care Team Providers Care Security Operations Analyst Name Role Phone Johnna Tinajero MD Primary Care Provider + Johnna Tinajero MD Unavailable [phone] Encounter Details Date Type Department Care Team (Late st Contact Info) Description 02/28/2020 1:30 PM CDT Telemedicine [facility] Pediatric Neurology [address] [facility] [place] [address] Nehal Riggs, DO [address] [place], [place] [id number] Migraine without status migrainosus, not intractable, unspecified [...] on file 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 - Review [email or web address] - Please call the Pediatric Neurology office at [phone] Riggs of worsening migraine or missed school due to migraine symptoms. documented in this encounter Progress Notes * Nehal Riggs, DO - 02/28/2020 1:30 PM CDT Patient Name: NINA BAUTISTA Medical Record Number (MRN): [id number] Date of (): 2000 Encounter Date: 02/28/2020 [facility] Pediatric Neurology Continuity [...] of chronic nausea,??headaches, and??anxiety who presented to [facility] following a syncopal episode and [...] Adopted so largely unknown Development Parents and director business development had no concerns for delays in development [...] use. ?? School She will be attending [employer] in the Fall. No IEP. [...] by parent and was intact throughout. Coordination: Nxjpww-[id number]-[id number] coordination is normal without dysmetria or ataxia. [...] questions, feel free to contact me at [phone]. Sincerely, Nehal Riggs DO Pediatric Neurology PGY-3 Cosigned by Magnolia Galaviz MD at 03/20/2020 1:47 PM CDT Associated attestation - Magnolia Galaviz MD - 03/20/2020 1:47 PM CDT This was a telemedicine visit with Nina Bautista and her family which took place via Real-time video connection (InTouch, Zoom or similar). During the visit, I was located at my work office in [place], [place], the patient and family was located at their home in [place], [place]. The resident physician (Dr. Nehal Riggs) was located at his/her work office in [place], [place]. The session started at 1:30p and [...] in a telephone or video visitduring the [address] After being given an opportunity [...] as noted below. Magnolia Olmstead MD PhD Connie Cleaner Division of Developmental and Pediatric Neurology Department [...] documented as of this encounter Care Teams Security Operations Analyst Relationship Specialty Start Date End Date Johnna Tinajero MD [address] [facility] [address] [place] [address] PCP - General Pediatrics 07/19/19 01/26/23 Johnna Tinajero MD [address] [facility] [address] [place] [address] 07/19/19 documented as of this encounter
--- OUTSIDE RECORDS SUMMARY | 2024-08-28 02:56 | XMS_ITS | Encounter Summary ---
Author Organization [facility] Address [address] [place] [address] Phone Care Team Providers Care Laboratory Coordinator Name Role Phone Johnna Tinajero MD Primary Care Provider + Johnna Tinajero MD Unavailable [phone] Reason for Visit * Reason Onset Date Comments ASKING IF POSSIBLE FOR TELE HEALTH APPOINTMENT 0 03/29/2020 Encounter Details Date Type Department Care Team (Late st Contact Info) Description 03/29/2020 Telephone [facility] Pediatric Gastroenterology [facility] 2nd [place] [address] [place] [address] Florina Rhodes MD [address] [place] [address] [address] [place] [address] ASKING IF POSSIBLE FOR TELE HEALTH APPOINTMENT [...] on file 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 , that is the other option thanks [...] VISIT WITH DR RHODES, PAT[facility], [facility] AVAILABLE APPOINTMENT IS APRIL [...] WORST. PLEASE CALL MOM BACK TO DISCUSS [phone]. documented in this encounter Plan of Treatment Not on file documented as of this encounter Visit Diagnoses Not on filedocumented in this encounter Care Teams Laboratory Coordinator Relationship Specialty Start Date End Date Johnna Tinajero MD [address] [address] PCP - General Pediatrics 07/19/19 01/26/23 Johnna Tinajero MD [address] [address] 07/19/19 documented as of this encounter
--- OUTSIDE RECORDS SUMMARY | 2024-08-28 02:56 | XMS_ITS | Encounter Summary ---
Author Organization [facility] Address [address] [place] [address] Phone Care Team Providers Care Manager Domestic Name Role Phone Johnna Tinajero MD Primary Care Provider + Johnna Tinajero MD Unavailable [phone] Reason for Visit * Reason Onset Date Comments Follow-up 10/13/2019 Encounter Details Date Type Department Care Team (Late st Contact Info) Description 10/13/2019 Telephone [facility] Pediatric Gastroenterology [facility] 2nd [place] [address] [place] [address] Florina Colby MD [address] [place] [address] [address] [place] [address] Follow-up Social History Tobacco Use Types Packs/Day Years Used Date Smoking Tobacco: Never PHQ-2 Answer Date Recorded PHQ-2 Score 4 06/28/2019 Comments No Sex and Gender Information Value Date Recorded Sex Assigned at Not on file Legal Sex Female 11:42 PM ORGANIC SEARCH LEAD Gender Identity Not on file Sexual Orientation [...] Arminda Gonzalez RN - 10/17/2019 3:52 PM ORGANIC SEARCH LEAD Called mom and let her know she was in agreement, we sent in a new RX NIC SEARCH LEAD * Addendum Note - Arminda Gonzalez RN - 10/17/2019 3:52 PM CSTAddended by: ARMINDA GONZALEZ on: 10/17/2019 03:52 PM Modules accepted: Orders NIC SEARCH LEAD * Telephone Encounter - Maureen Weeks MD - 10/17/2019 3:26 PM ORGANIC SEARCH LEAD OK to make the change on nortriptyline as per the approval of the PCP/psychiatry. If no improvement will plan for gastric emptying scan and likely medication to improve gastric emptying. Thanks. NIC SEARCH LEAD * Telephone Encounter - Arminda Gonzalez RN - 10/17/2019 9:59 AM ORGANIC SEARCH LEAD Called mom back for an update Vomiting most days: usually 2 times per day, but not daily Still having a lot of nausea. No blood or bile in emesis. Mom had spoken to the PCP , who also spoke to the Psychiatry at [facility] about the Lexapro and the Nortriptyline dosing. [...] Mom will call back in one week. NIC SEARCH LEAD * Telephone Encounter - Macy Morin RMA - 10/13/2019 3:10 PM ORGANIC SEARCH LEAD Mom called back and said that Nina is still throwing up. Her pain is about 6/10. Lots of pressure above and bellow her belly button. The worst is when she is lying down. Also mom talked to PCP and they told her that escitalopram (LEXAPRO) 20 mg tablet is a low does and would be fine to continue. NIC SEARCH LEAD * Telephone Encounter - Florina Colby MD - 10/13/2019 1:47 PM CST Calling mother back to she how Nina is doing. If she continues to have nausea, okay to increase to nortriptyline to 40 mg daily. If she has restarted lexapro or any other antidepressant or anxiety medication than I would NOT increase her nortriptyline at this time. NIC SEARCH LEAD documented in this encounter Plan of Treatment [...] as of this encounter Care Teams Manager Domestic Relationship Specialty Start Date End Date Johnna Tinajero MD [address] [address] PCP - General Pediatrics 07/19/19 01/26/23 Johnna Tinajero MD [address] [address] 07/19/19 documented as of this encounter
--- OUTSIDE RECORDS SUMMARY | 2024-08-28 02:56 | XMS_ITS | Encounter Summary ---
Author Organization [facility] Address [address] [place] [address] [address] [place] [address] Phone Care Team Providers Care Shell Shop Supervisor Name Role Phone Johnna Tinajero MD Primary Care Provider + Johnna Tinajero MD Unavailable [phone] Encounter Details Date Type Department Care Team (Late st Contact Info) Description 10/26/2019 Telephone [facility] [address] [place] [address] Cecilia Owen MD [address] [place] [address] [address] [place] [address] Social History Tobacco Use Types Packs/Day Years Used Date Smoking Tobacco: Never PHQ-2 Answer Date Recorded PHQ-2 Score 4 06/28/2019 Comments No Sex and Gender Information Value Date Recorded Sex Assigned at Not on file 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 E BUSINESS PROJECT MANAGER documented in this encounter Plan of Treatment Not on file documented as of this encounter Visit Diagnoses Not on filedocumented in this encounter Care Teams Shell Shop Supervisor Relationship Specialty Start Date End Date Johnna Tinajero MD [address] [address] PCP - General Pediatrics 07/19/19 01/26/23 Johnna Tinajero MD [address] [facility] [address] [place] [address] 07/19/19 documented as of this encounter
--- OUTSIDE RECORDS SUMMARY | 2024-08-28 02:56 | XMS_ITS | Encounter Summary ---
Author Organization [facility] Address [address] [place] [address] [address] [place] [address] Phone Care Team Providers Care Fuel Management Handler Name Role Phone Johnna Tinajero MD Primary Care Provider + Johnna Tinajero MD Unavailable [phone] Encounter Details Date Type Department Care Team (Late st Contact Info) Description 11/01/2019 Telephone [facility] [address] [place] [address] Johnna Tinajero MD [address] [place] [address] Social History Tobacco Use Types Packs/Day Years Used Date Smoking Tobacco: Never PHQ-2 Answer Date Recorded PHQ-2 Score 4 06/28/2019 Comments No Sex and Gender Information Value Date Recorded Sex Assigned at Not on file 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 Nina states that she is feeling OK, was dizzy this morning but has since resolved. Reviewed with Dr. Tinajero, we will ask school RN to take daily BP and call/fax with reports daily for ongoing monitoring. New letter prepared and faxed to school. NING SYSTEMS OFFICER NING SYSTEMS OFFICER * Telephone Encounter - Basilia Dillard RN - 11/01/2019 1:03 PM TRAINING SYSTEMS OFFICER PC from mom, letter needed to school RN to take BP and send in results. ----- Message from Deidre Saavedra sent at 11/01/2019 11:05 AM TRAINING SYSTEMS OFFICER ----- Mom says they have a battery operated sphygmomanometer at home. She is at school. Mom says she still feels a little dizzy at times, and had a slight headache yesterday. She has an appointment with neurology next week. ----- Message ----- From: Johnna Tinajero MD Sent: 11/01/2019 10:37 AM TRAINING SYSTEMS OFFICER To: Deidre Saavedra How is she measuring the blood pressure? Is Nina at school? Is she having symptoms? ----- Message ----- From: Deidre Saavedra Sent: 11/01/2019 10:24 AM TRAINING SYSTEMS OFFICER To: Johnna Tinajero MD Mom called, is concerned about Nina's blood pressure. States it was 140/104 after she fainted lastweek, and this morning it ws 130/100. Mom says she has decreased her nortriptyline to 30mg/daily. Wants to know if there is anything else she should do at this time. NING SYSTEMS OFFICER NING SYSTEMS OFFICER NING SYSTEMS OFFICER documented in this encounter Plan of Treatment Not on file documented as of this encounter Visit Diagnoses Not on filedocumented in this encounter Care Teams Fuel Management Handler Relationship Specialty Start Date End Date Johnna Tinajero MD [address] [address] PCP - General Pediatrics 07/19/19 01/26/23 Johnna Tinajero MD [address] [address] 07/19/19 documented as of this encounter
--- OUTSIDE RECORDS SUMMARY | 2024-08-28 02:56 | XMS_ITS | Encounter Summary ---
Author Organization [facility] Address [address] [place] [address] Phone Care Team Providers Care Bulk Pallet Builder Name Role Phone Johnna Tinajero MD Primary Care Provider + Johnna Tinajero MD Unavailable [phone] Reason for Visit * Reason Onset Date Comments prescreen 04/05/2020 Encounter Details Date Type Department Care Team (Late st Contact Info) Description 04/05/2020 Telephone [facility] Pediatric Cardiology [facility] 2nd [place] [address] [place] [address] Maude Gould CMA prescreen Social [...] file 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
--- OUTSIDE RECORDS SUMMARY | 2024-08-28 02:56 | XMS_ITS | Encounter Summary ---
Author Organization [facility] Address [address] [place] [address] Phone Care Team Providers Care Patcher Helper Name Role Phone Johnna Tinajero MD Primary Care Provider + Johnna Tinajero MD Unavailable [phone] Encounter Details Date Type Department Care Team (Late st Contact Info) Description 01/31/2020 Telephone 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
--- OUTSIDE RECORDS SUMMARY | 2024-08-28 02:56 | XMS_ITS | Encounter Summary ---
Author Organization [facility] Address [address] [place] [address] Phone Care Team Providers Care Health And Safety Tech Name Role Phone Johnna Tinajero MD Primary Care Provider + Johnna Tinajero MD Unavailable [phone] Reason for Visit * Reason Onset Date Comments Follow-up 01/18/2020 Encounter Details Date Type Department Care Team (Late st Contact Info) Description 01/18/2020 Telephone [facility] Pediatric Gastroenterology [facility] 2nd [place] [address] [place] [address] Florina Colby MD [address] [place] [address] [address] [place] [address] Follow-up Social History Tobacco Use [...] on file 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 documented in this encounter Plan of Treatment Not on file documented as of this encounter Visit Diagnoses Not on filedocumented in this encounter Care Teams Health And Safety Tech Relationship Specialty [place] [address] [place] [address] PCP - General Pediatrics 07/19/19 01/26/23 [place] [address] [place] [address] 07/19/19 documented as of this encounter
--- OUTSIDE RECORDS SUMMARY | 2024-08-28 02:56 | XMS_ITS | Encounter Summary ---
Author Organization [facility] Address [address] [place] [address] Phone Care Team Providers Care Beef Grinder Name Role Phone Johnna Tinajero MD Primary Care Provider + Johnna Tinajero MD Unavailable [phone] Encounter Details Date Type Department Care Team (Late st Contact Info) Description 10/14/2019 Telephone [facility] Pediatric Gastroenterology [facility] 2nd [place] [address] [place] [address] Florina Colby MD [address] [place] [address] [address] [place] [address] Social History Tobacco Use Types Packs/Day Years Used Date Smoking Tobacco: Never PHQ-2 Answer Date Recorded PHQ-2 Score 4 06/28/2019 Comments No Sex and Gender Information Value Date Recorded Sex Assigned at Not on file Legal Sex Female 11:42 PM ENROLLMENT COUNSELOR Gender Identity Not on file Sexual [...] Let me know what you think. Thanks! LLMENT COUNSELOR * Telephone Encounter - Paty Gray - 10/14/2019 4:21 PM ENROLLMENT COUNSELOR Mom calling back please return call LLMENT COUNSELOR documented in this encounter Plan of Treatment Not on file documented as of this encounter Visit Diagnoses Not on filedocumented in this encounter Care Teams Beef Grinder Relationship Specialty Start Date End Date Johnna Tinajero MD [address] [address] PCP - General Pediatrics 07/19/19 01/26/23 Johnna Tinajero MD [address] [address] 07/19/19 documented as of this encounter
--- OUTSIDE RECORDS SUMMARY | 2024-08-28 02:56 | XMS_ITS | Encounter Summary ---
Author Organization [facility] Address [address] [facility] [address] [place] [address] Phone Care Team Providers Care Catering Driver Name Role Phone Johnna Tinajero MD Primary Care Provider + Johnna Tinajero MD Unavailable [phone] Reason for Visit * Reason Onset Date Comments Pt call 11/10/2019 Encounter Details Date Type Department Care Team (Late st Contact Info) Description 11/10/2019 Telephone [facility] Pediatric Neurology [facility] 2nd [place] [address] [place] [address] Madyson Kerr MD PhD [address] [facility] [phone] [place] [address] Pt call Social History [...] on file 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
--- OUTSIDE RECORDS SUMMARY | 2024-08-28 02:56 | XMS_ITS | Encounter Summary ---
Author Organization [facility] Address [address] [place] [address] Care Team Providers Care Licensed Master Social Worker Name Role Phone Johnna Tinajero MD Primary Care Provider + Johnna Tinajero MD Unavailable [phone] Reason for Referral * Diagnostic Imaging (Routine) - Closed Specialty Diagnoses / Procedures Referred By Contac t Referred To Contact Diagnoses Abdominal pain, unspecified abdominal location Chronic nausea Procedures Nuclear Medicine gastric emptying Florina Colby MD Phone: tel: fax: [address] [address] Referral ID Status Reason Start Date Expiration Date Visits Re quested Visits Authorized [id number] Closed 10/31/2019 05/11/2021 5 5 RONMENTAL SERVICES SUPERVISOR Reason for Visit * Diagnostic Imaging (Routine) - Closed Specialty Diagnoses / Procedures Referred By Contac t Referred To Contact Diagnoses Abdominal pain, unspecified abdominal location Chronic nausea Procedures Nuclear Medicine gastric emptying Florina Colby MD Phone: tel: fax: [address] [address] Referral ID Status Reason Start Date Expiration Date Visits Re quested Visits Authorized [id number] Closed 10/31/2019 05/11/2021 5 5 Encounter Details Date Type Department Care Team (Late st Contact Info) Description 11/04/2019 9:42 AM ENVIRONMENTAL SERVICES SUPERVISOR - 11/04/2019 11:59 PM ENVIRONMENTAL SERVICES SUPERVISOR Hospital Encounter [facility] Nuclear [place] [address] Florina Colby MD [address] [facility] [address] [place] [address] Abdominal pain, unspecified abdominal location; Chronic nausea [...] Legal Sex Female 11:42 PM ENVIRONMENTAL SERVICES SUPERVISOR Gender Identity Not on file Sexual [...] Read Routine (OP Routine) 11/04/2019 2:30 PM ENVIRONMENTAL SERVICES SUPERVISOR Abdominal pain, unspecified abdominal location Chronic nausea documented in this encounter Results * Nuclear Medicine gastric emptying (11/04/2019 2:30 PM ENVIRONMENTAL SERVICES SUPERVISOR) Anatomical Region Laterality Modality Body N/A Nuclear Medicine 11/04/2019 5:22 PM ENVIRONMENTAL SERVICES SUPERVISOR Impressions 11/04/2019 9:32 PM ENVIRONMENTAL SERVICES SUPERVISOR Normal gastric emptying study. Dictated by: Jeronimo Khalil MD, PHD The radiology attending physician has personally reviewed this study, and had reviewed and/or edited this written report and agrees with it. Electronically signed by: Josue Hernandez 11/04/2019 9:32 PM ENVIRONMENTAL SERVICES SUPERVISOR EXAMINATION: GASTRIC EMPTYING STUDY DATE OF STUDY: [...] by: Patricio London M.D. Florina Colby MD [facility] PROCEDURES Final Result documented in this [...] Thu11/04/19 at 1000 Given 11/04/2019 10:02 AM ENVIRONMENTAL SERVICES SUPERVISOR 0.628 millicuries documented in this encounter Orders Medications Ordered That Jonny ht Not Have Been Administered Count Last Ordered Date First Ordered Date tc-99m sulfur colloid egg 0.693 millicurie 1 11/04/2019 documented in this encounter Care Teams Licensed Master Social Worker Relationship Specialty Start Date End Date Johnna Tinajero MD [address] [address] PCP - General Pediatrics 07/19/19 01/26/23 Johnna Tinajero MD [address] [address] 07/19/19 documented as of this encounter
--- OUTSIDE RECORDS SUMMARY | 2024-08-28 02:56 | XMS_ITS | Encounter Summary ---
Author Organization [facility] Address [address] [place] [address] Care Team Providers Care Sales Agent Financial Report Service Name Role Phone Johnna Tinajero MD Primary Care Provider + Johnna Tinajero MD Unavailable [phone] Reason for Visit * Reason Comments Syncope Neck Pain Chest Wall Pain Encounter Details Date Type Department Care Team (Late st Contact Info) Description 10/24/2019 1:05 AM POLITICAL CONSULTANT - 10/24/2019 4:25 AM [facility] [place] [address] Sharee Don MD [address] [place] [address] [address] [place], [place] [id number] Syncope, unspecified syncope type (Primary Dx); Polypharmacy Discharge Disposition: Discharge to home or self care Social History Tobacco Use Types Packs/Day Years Used Date Smoking Tobacco: Never PHQ-2 Answer Date Recorded PHQ-2 Score 4 06/28/2019 Comments No Sex and Gender Information Value Date Recorded Sex Assigned at Not on file Legal Sex Female 11:42 PM POLITICAL CONSULTANT Gender Identity Not on file Sexual Orientation Not on file documented as of this encounter Last Filed Vital Signs Vital Sign Reading Time Taken Comments Blood Pressure 123/88 10/24/2019 2:16 AM POLITICAL CONSULTANT Pulse 82 10/24/2019 4:04 AM POLITICAL CONSULTANT Temperature 36.5 ??C (97.7 ??F) 10/24/2019 4:04 AM CS T Respiratory Rate 10/24/2019 4:04 AM POLITICAL CONSULTANT Oxygen Saturation 100% 10/24/2019 12: 17 AM POLITICAL CONSULTANT Inhaled Oxygen Concentration - - Weight 101.6 kg (223 lb 15.8 oz) 2019 12:16 AM POLITICAL CONSULTANT Height - - Body Mass Index - - documented in this encounter Discharge Diagnoses Diagnosis Syncope and collapse - SYNCOPE AND COLLAPSE Other terminal makeup operator (current) drug therapy - OTHER LONGTERM (CURRENT) DRUG THERAPY Anxiety disorder, unspecified - ANXIETY DISORDER, UNSPECIFIED Unspecified asthma, uncomplicated - UNSPECIFIED ASTHMA, UNCOMPLICATED documented in this encounter Discharge Instructions * Discharge Instructions* Susi Porter MD - 10/24/2019 3:53 AM POLITICAL CONSULTANT We recommend that you decrease your dose of nortriptylline back down to 30 mg daily from the prior 40 mg which could be the reason you passed out. Please follow-up with your doctor in regards to today's visit and call GI if they do not call you in the next few days to schedule your next appointmentwith them as well. TICAL CONSULTANT TICAL CONSULTANT * Attachments The following attachments cannot be sent through Care Everywhere. * Dizziness or Syncope (Fainting) During (Malaysian) documented in this encounter Medications at [...] few mins Leslye Sweeney RN 10/24/19 0333 TICAL CONSULTANT * Susi Porter MD - 10/24/2019 2:26 [...] Sharee Don MD at 10/28/2019 3:19 AM POLITICAL CONSULTANT TICAL CONSULTANT TICAL CONSULTANT Associated attestation - Arian, Sharee Velsaquez MD - 10/28/2019 3:19 AM POLITICAL CONSULTANT I have seen and examined the patient [...] Car Comments: Belgica Simmons RN 10/24/19 0105 TICAL CONSULTANT * Rachel Thurman RN - 10/24/2019 12:10 AM CST Pt reports passing out around 2200; unknown LOC (states she cannot remember); sister witnessed fall. Pt c/o neck pain. Denies vomiting since fall, but some dizziness. Lexapro prior to arrival. Ibuprofen in AM. Decreased PO, good UOP. Pt also states she has L rib pain thinking related to her fall. TICAL CONSULTANT TICAL CONSULTANT documented in this encounter Plan of Treatment Not on file documented as of this encounter Procedures Procedure Name Priority Date/Time Associated Diagnosis Comments ECG 12-LEAD Routine 10/24/2019 2:51 AM POLITICAL CONSULTANT documented in this encounter Results * ECG 12 lead (10/24/2019 2:51 AM POLITICAL CONSULTANT) Ventricular Rate EKG/Min 83 BPM [facility] Atrial Rate 83 BPM [facility] NV-Interval (MSEC) 136 ms [facility] QRS-Interval (MSEC) 74 ms [facility] QT-Interval (MSEC) 394 ms [facility] QTc 463 ms [facility] P [place] 21 degrees [facility] R [place] -3 degrees [facility] T [place] 6 degrees [facility] Diagnosis Poor data quality, interpretation may be adversely affected Normal sinus rhythm Low voltage QRS in lateral chest leads Prolonged QT Abnormal ECG When compared with ECG of 14-SEP-2019 12:39, QT has lengthened Confirmed by NARCISO VALENZUELA MD, CASEY ([id number]) on 10/24/2019 6:40:08 AM [facility] 10/24/2019 2:51 AM POLITICAL CONSULTANT 10/24/2019 6:40 AM POLITICAL CONSULTANT Susi Porter MD ECG ORDERABLE S Final Result [facility] documented in this encounter Visit Diagnoses Diagnosis Syncope, unspecified syncope type- Primary Polypharmacy Issue of repeat prescriptions documented in this encounter Care Teams Sales Agent Financial Report Service Relationship Specialty Start Date End Date Johnna Tinajero MD [address] [place] [address] PCP - General Pediatrics 07/19/19 01/26/23 Johnna Tinajero MD [address] [place] [address] 07/19/19 documented as of this encounter
--- OUTSIDE RECORDS SUMMARY | 2024-08-28 02:56 | XMS_ITS | Encounter Summary ---
Author Organization [facility] Address [address] [place] [address] [address] [place] [address] Phone Care Team Providers Care Hebrew Teacher Name Role Phone Johnna Tinajero MD Primary Care Provider + Johnna Tinajero MD Unavailable [phone] Encounter Details Date Type Department Care Team (Late st Contact Info) Description 12/05/2019 Documentation [facility] [address] 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 documented in this encounter Plan of Treatment Not on file documented as of this encounter Visit Diagnoses Not on filedocumented in this encounter Care Teams Hebrew Teacher Relationship Specialty Start Date End Date Johnna Tinajero MD [address] [address] PCP - General Pediatrics 07/19/19 01/26/23 Johnna Tinajero MD [address] [address] 07/19/19 documented as of this encounter
--- OUTSIDE RECORDS SUMMARY | 2024-08-28 02:56 | XMS_ITS | Encounter Summary ---
Author Organization [facility] Address [address] [place] [address] Phone Care Team Providers Care Chemist Assistant Name Role Phone Johnna Tinajero MD Primary Care Provider + Johnna Tinajero MD Unavailable [phone] Reason for Visit * Reason Comments Other DIZZINESS STILL Encounter Details Date Type Department Care Team (Late st Contact Info) Description 10/25/2019 1:45 PM UPHOLSTERED GOODS CRAFTER Office Visit [facility] [address] [facility] [address] [place] [address] Johnna Tinajero MD [address] [place] [address] Vasovagal syncope (Primary Dx); Chronic nausea; Anxiety Social History Tobacco Use Types Packs/Day Years Used Date Smoking Tobacco: Never PHQ-2 Answer Date Recorded PHQ-2 Score 4 06/28/2019 Comments No Sex and Gender Information Value Date Recorded Sex Assigned at Not on file Legal Sex Female 11:42 PM UPHOLSTERED GOODS CRAFTER Gender Identity Not on file Sexual Orientation Not on file documented as of this encounter Last Filed Vital Signs Vital Sign Reading Time Taken Comments Blood Pressure 126/88 10/25/2019 1:38 PM UPHOLSTERED GOODS CRAFTER Pulse - - Temperature 36.8 ??C (98.2 ??F) 10/25/2019 1:38 PM CS T Respiratory Rate - - Oxygen Saturation - - Inhaled Oxygen Concentration - - Weight 100.3 kg (221 lb 1.6 oz) 10/25/2019 1:38 PM UPHOLSTERED GOODS CRAFTER Height - - Body Mass Index - [...] two academic classes. Will be going to [place] [employer] and says she is pleased. Supposed [...] guarding. No hepatosplenomegaly Neurological: alert. Normal speech. Chainstitch Hemmer 2-12 intact. Normal strength UEs and LEs. [...] or new symptoms/problems develop. Johnna Tinajero MD LSTERED GOODS CRAFTER documented in this encounter Plan of Treatment Not on file documented as of this encounter Visit Diagnoses Diagnosis Vasovagal syncope- Primary Syncope and collapse Chronic nausea Nausea alone Anxiety Anxiety state, unspecified documented in this encounter Care Teams Chemist Assistant Relationship Specialty Start Date End Date Johnna Tinajero MD [address] [address] PCP - General Pediatrics 07/19/19 01/26/23 Johnna Tinajero MD [address] [address] 07/19/19 documented as of this encounter
--- OUTSIDE RECORDS SUMMARY | 2024-08-28 02:56 | XMS_ITS | Encounter Summary ---
Author Organization [facility] Address [address] [place] [address] Phone Care Team Providers Care Literacy Consultant Name Role Phone Johnna Tinajero MD Primary Care Provider + Johnna Tinajero MD Unavailable [phone] Reason for Visit * Reason Onset Date Comments scheduling 11/09/2019 Encounter Details Date Type Department Care Team (Late st Contact Info) Description 11/09/2019 Telephone [facility] Pediatric Neurology [facility] 2nd [place] [address] [place] [address] Neahl Riggs, DO [address] [place] [address] scheduling Social History Tobacco Use [...] on file 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
--- OUTSIDE RECORDS SUMMARY | 2024-08-28 02:56 | XMS_ITS | Encounter Summary ---
Author Organization [facility] Address [address] [place] [address] Phone Care Team Providers Care Floor Cleaner Name Role Phone Johnna Tinajero MD Primary Care Provider + Johnna Tinajero MD Unavailable [phone] Encounter Details Date Type Department Care Team (Late st Contact Info) Description 10/31/2019 Telephone [facility] Pediatric Gastroenterology [facility] 2nd [place] [address] [place] [address] Gt Collazo, DOMINGO Social History Tobacco Use Types Packs/Day Years Used Date Smoking Tobacco: Never PHQ-2 Answer Date Recorded PHQ-2 Score 4 06/28/2019 Comments No Sex and Gender Information Value Date Recorded Sex Assigned at Not on file 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 E REPAIR MECHANIC documented in this encounter Plan of Treatment Not on file documented as of this encounter Visit Diagnoses Not on filedocumented in this encounter Care Teams Floor Cleaner Relationship Specialty Start Date End Date oJhnna Tinajero MD [address] [address] PCP - General Pediatrics 07/19/19 01/26/23 Johnna Tinajero MD [address] [address] 07/19/19 documented as of this encounter
--- OUTSIDE RECORDS SUMMARY | 2024-08-28 02:56 | XMS_ITS | Encounter Summary ---
Author Organization [facility] Address [address] [facility] [address] [place] [address] Phone Care Team Providers Care Project Director Name Role Phone Johnna Tinajero MD Primary Care Provider + Johnna Tinajero MD Unavailable [phone] Reason for Referral * Gastroenterology (Routine) - Closed Specialty Diagnoses / Procedures Referred By Contact Referred To Contact Pediatric Gastroenterology Diagnoses Abdominal pain Johnna Tinajero MD [address] [place], [place] [address] Phone: tel:[phone] fax:[phone] [facility] (All Locations) Referral ID Status Reason Start Date Expiration Date V isits Requested Visits Authorized [id number] Closed Continuity of Care 04/04/2020 05/04/2021 12 12 Question Answer Please select the performing region: [facility] (All Locations) [167] # of visits: 1 Reason for Visit * Gastroenterology (Routine) - Closed Specialty Diagnoses / Procedures Referred By Contact Referred To Contact Pediatric Gastroenterology Diagnoses Abdominal pain Johnna Tinajero MD [address] [place] [address] Phone: tel:[phone] fax:[phone] [facility] (All Locations) Referral ID Status Reason Start Date Expiration Date V isits Requested Visits Authorized [id number] Closed Continuity of Care 04/04/2020 05/04/2021 12 12 Encounter Details Date Type Department Care Team (Late st Contact Info) Description 04/05/2020 9:00 AM CDT Telemedicine [facility] Pediatric Gastroenterology [facility] 2nd [place] [address] [place] [address] Madyson Uriostegui NP [address] [facility] [address] [place] [address] Abdominal pain (Primary Dx); Nausea; Obesity without [...] on file Legal Sex 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 During the visit, I was located at my home in the state of [place] and the patient was located at home [...] a telephone or video visit during the [facility] public health emergency was explained to them. [...] to leave for college next week at [employer]. She will be living in the dorms with someone she does not know. She is going to study something in the medical field. Denies weight loss, fever, abdominal distention, rash, joint pains, oral ulcerations, hematochezia,and night-time waking with symptoms. 07/19 - CT: 1. ??Normal appendix. 2. ??Right ovarian corpus luteal cyst with mild free fluid in [id number]. 07/19 - ultrasound pelvis and ovaries: normal; [...] Referral Reason: Specialty Services Required Referral Location: [facility] (All Locations) Requested Specialty: Pediatric Gastroenterology Number [...] documented as of this encounter Care Teams Project Director Relationship Specialty Start Date End Date Johnna Tinajero MD [address] [address] PCP - General Pediatrics 07/19/19 01/26/23 Johnna Tinajero MD [address] [address] 07/19/19 documented as of this encounter
--- OUTSIDE RECORDS SUMMARY | 2024-08-28 02:56 | XMS_ITS | Encounter Summary ---
Author Organization [facility] Address [address] [place] [address] Phone Care Team Providers Care Data Governance Consultant Name Role Phone Johnna Tinajero MD Primary Care Provider + Johnna Tinajero MD Unavailable [phone] Reason for Visit * Reason Onset Date Comments PreScreen 03/05/2020 Encounter Details Date Type Department Care Team (Late st Contact Info) Description 03/05/2020 Telephone [facility] Pediatric Cardiology [facility] 2nd [place] [address] [place] [address] Romelia Juarez CMA PreScreen Social [...] file 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
--- OUTSIDE RECORDS SUMMARY | 2024-08-28 02:56 | XMS_ITS | Encounter Summary ---
Author Organization [facility] Address [address] [place] [address] Phone Care Team Providers Care Technology Assistant Name Role Phone Johnna Tinajero MD Primary Care Provider + Johnna Tinajero MD Unavailable [phone] Encounter Details Date Type Department Care Team (Late st Contact Info) Description 03/28/2020 Telephone [facility] Pediatric Neurology [facility] 2nd [place] [address] [place] [address] Nehal Riggs, DO [address] [place] [address] Social History Tobacco Use Types [...] on file 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
--- OUTSIDE RECORDS SUMMARY | 2024-08-28 02:56 | XMS_ITS | Encounter Summary ---
Author Organization [facility] Address [address] [place] [address] Phone Care Team Providers Care Radio Engineering Teacher Name Role Phone Johnna Tinajero MD Primary Care Provider + Johnna Tinajero MD Unavailable [phone] Reason for Referral * (Routine) - Closed Specialty Diagnoses / Procedures Referred By Asia camp Referred To Contact Diagnoses Vasovagal syncope Procedures Pediatric Event Monitor With Loop Franklin Young MD [facility] (All Locations) Referral ID Status Reason Start Date Expiration Date Visits Re quested Visits Authorized [id number] Closed 11/03/2019 05/14/2021 1 1 Reason for Visit * (Routine) - Closed Specialty Diagnoses / Procedures Referred By Asia camp Referred To Contact Diagnoses Vasovagal syncope Procedures Pediatric Event Monitor With Loop Franklin Young MD [facility] (All Locations) Referral ID Status Reason Start Date Expiration Date Visits Re quested Visits Authorized [id number] Closed 11/03/2019 05/14/2021 1 1 Encounter Details Date Type Department Care Team (Latest Contact Info) Description 11/07/2019 9:51 AM CDT - 11/07/2019 11:59 PM CDT Hospital Encounter [facility] Pediatric Cardiology [facility] [address] [place] [address] Vasovagal syncope Discharge Disposition: Discharge to home [...] on file 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
--- OUTSIDE RECORDS SUMMARY | 2024-08-28 02:56 | XMS_ITS | Encounter Summary ---
Author Organization [facility] Address [address] [place] [address] [address] [place] [address] Phone Care Team Providers Care Psychology Department Chair Name Role Phone Johnna Tinajero MD Primary Care Provider + Johnna Tinajero MD Unavailable [phone] Reason for Visit * Reason Onset Date Comments Concern about blood pressure 11/01/2019 Encounter Details Date Type Department Care Team (Late st Contact Info) Description 11/01/2019 Telephone [facility] [address] [facility] [address] [place] [address] Johnna Tinajero MD [address] [place] [address] Concern about blood pressure Social History Tobacco Use Types Packs/Day Years Used Date Smoking Tobacco: Never PHQ-2 Answer Date Recorded PHQ-2 Score 4 06/28/2019 Comments No Sex and Gender Information Value Date Recorded Sex Assigned at Not on file 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
--- OUTSIDE RECORDS SUMMARY | 2024-08-28 02:56 | XMS_ITS | Encounter Summary ---
Author Organization [facility] Address [address] [place] [address] Phone Care Team Providers Care Auto Mechanics Teacher Name Role Phone Johnna Tinajero MD Primary Care Provider + Johnna Tinajero MD Unavailable [phone] Reason for Visit * Reason Onset Date Comments Scheduling Appointments 01/19/2020 Encounter Details Date Type Department Care Team (Late st Contact Info) Description 01/19/2020 Telephone [facility] Pediatric Gastroenterology [facility] 2nd [place] [address] [place] [address] Brandee Solorzano, RD 1 [facility] [address] [place] [address] Scheduling Appointments Social History Tobacco [...] on file 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
--- OUTSIDE RECORDS SUMMARY | 2024-08-28 02:56 | XMS_ITS | Encounter Summary ---
Author Organization [facility] Address [address] [place] [address] [address] [place] [address] Phone Care Team Providers Care Drafting Technician Name Role Phone Johnna Tinajero MD Primary Care Provider + Johnna Tinajero MD Unavailable [phone] Encounter Details Date Type Department Care Team (Late st Contact Info) Description 11/12/2019 Telephone [facility] [address] [place] [address] Johnna Tinajero MD [address] [place] [address] [address] [place] [address] Social History Tobacco Use Types [...] on file 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
--- OUTSIDE RECORDS SUMMARY | 2024-08-28 02:57 | XMS_ITS | Encounter Summary ---
Author Organization [facility] Address [address] [place] [address] Phone Care Team Providers Care Production Lapping Machine Operator Name Role Phone Johnna Tinajero MD Primary Care Provider + Johnna Tinajero MD Unavailable [phone] Reason for Visit * Reason Onset Date Comments Treatment Plan Update 09/09/2019 Encounter Details Date Type Department Care Team (Late st Contact Info) Description 09/09/2019 Telephone [facility] Pediatric Gastroenterology [facility] 2nd [place] [address] [place] [address] Nehemiah Zhao MD [address] [place] [address] [address] [place] [address] Treatment Plan Update Social History Tobacco Use Types Packs/Day Years Used Date Smoking Tobacco: Never PHQ-2 Answer Date Recorded PHQ-2 Score 4 06/28/2019 Comments No Sex and Gender Information Value Date Recorded Sex Assigned at Not on file 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 PRESS OPERATOR * Telephone Encounter - Leonor Mccarthy RN - 09/09/2019 3:45 PM AIR PRESS OPERATOR Reviewed PMD note. Will let PAYTON know mom wants to speak to him directly. PRESS OPERATOR * Telephone Encounter - Lili Hudson - 09/09/2019 3:27 PM CST MOM IS REQUESTING A CALL BACK FROM DR ZHAO TO DISCUSS TREATMENT PLAN. PRESS OPERATOR documented in this encounter Plan of Treatment Not on file documented as of this encounter Visit Diagnoses Not on filedocumented in this encounter Care Teams Production Lapping Machine Operator Relationship Specialty Start Date End Date Johnna Tinajero MD [address] [address] PCP - General Pediatrics 07/19/19 01/26/23 Johnna Tinajero MD [address] [address] 07/19/19 documented as of this encounter
--- OUTSIDE RECORDS SUMMARY | 2024-08-28 02:57 | XMS_ITS | Encounter Summary ---
Author Organization [facility] Address [address] [place] [address] Care Team Providers Care Coach Cleaner Name Role Phone Johnna Tinajero MD Primary Care Provider + Johnna Tinajero MD Unavailable [phone] Encounter Details Date Type Department Care Team (Late st Contact Info) Description 09/15/2019 Orders Only [facility] [place] [address] Yehuda Cabrera, RT Social History Tobacco Use Types Packs/Day Years Used Date Smoking Tobacco: Never PHQ-2 Answer Date Recorded PHQ-2 Score 4 06/28/2019 Comments No Sex and Gender Information Value Date Recorded Sex Assigned at Not on file 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
--- OUTSIDE RECORDS SUMMARY | 2024-08-28 02:57 | XMS_ITS | Encounter Summary ---
Author Organization [facility] Address [address] [place] [address] Phone Care Team Providers Care Nurse Ldr Name Role Phone Johnna Tinajero MD Primary Care Provider + Johnna Tinajero MD Unavailable [phone] Reason for Visit * Reason Onset Date Comments Schedule Testing 09/06/2019 Encounter Details Date Type Department Care Team (Late st Contact Info) Description 09/06/2019 Telephone [facility] 2nd [place] [address] [place] [address] Nehemiah Zhao MD [address] [place] [address] [address] [place] [address] Schedule Testing Social History Tobacco Use Types Packs/Day Years Used Date Smoking Tobacco: Never PHQ-2 Answer Date Recorded PHQ-2 Score 4 06/28/2019 Comments No Sex and Gender Information Value Date Recorded Sex Assigned at Not on file Legal Sex Female 11:42 PM LION HUNTER Gender Identity Not on file Sexual Orientation [...] volumes No recent weight loss or illness HUNTER * Telephone Encounter - Nehemiah Zhao MD [...] may include reevaluation in the GI office. HUNTER * Telephone Encounter - Mercedes Steve - 09/06/2019 2:10 PM CST Called and spoke with mom. Scheduled the EGD for 09/22 (next available). Did add her to the wait list if we get any cancellations. Mom is wanting to know if there is any testing that we can order to check out her gallbladder. HUNTER * Telephone Encounter - Mercedes Steve - 09/06/2019 2:10 PM CST ----- Message from Nehemiah Zhao MD sent at 09/05/2019 8:05 AM LION HUNTER ----- Thanks Lynda. We'll contact them to coordinate the contingency EGD. Leslye - please call mother to coordinate. She should be expecting the call. Indication for EGD is persistent nausea and history of NSAID exposure. Let me know if questions. ----- Message ----- From: Johnna Tinajero MD Sent: 09/02/2019 2:52 PM LION HUNTER To: Nehemiah Zhao MD I saw Nina today and she has not improved at all on new medication. I confirmed with her and mom that the plan is to proceed with endoscopy and that your office will contact mom. Mom is asking aboutspecial tests for GB problems and that is out of my area of expertise HUNTER documented in this encounter Plan of Treatment Not on file documented as of this encounter Visit Diagnoses Not on filedocumented in this encounter Care Teams Nurse Ldr Relationship Specialty Start Date End Date Johnna Tinajero MD [address] [address] PCP - General Pediatrics 07/19/19 01/26/23 Johnna Tinajero MD [address] [address] 07/19/19 documented as of this encounter
--- OUTSIDE RECORDS SUMMARY | 2024-08-28 02:57 | XMS_ITS | Encounter Summary ---
Author Organization [facility] Address [address] [facility] [address] [place] [address] Phone Care Team Providers Care Grinding Machine Operator Name Role Phone Johnna Tinajero MD Primary Care Provider + Johnna Tinajero MD Unavailable [phone] Reason for Referral * (Routine) - Closed Specialty Diagnoses / Procedures Referred By [place] camp Referred To Contact Diagnoses Encounter for routine child health examination with abnormal findings Fatigue, unspecified type Nausea Obesity without serious comorbidity with body mass index (BMI) greater than 99th percentile for age in pediatric patient, unspecified obesity type Procedures ECG 12 lead Johnna Tinajero MD [address] [facility] [address] [place] [address] Phone: tel: fax: [facility] (All Locations) Referral ID Status Reason Start Date Expiration Date Visits Re quested Visits Authorized [id number] Closed 08/16/2019 02/24/2021 1 [address] CHASSIS Reason for Visit * (Routine) - Closed Specialty Diagnoses / Procedures Referred By Contac t Referred To Contact Diagnoses Encounter for routine child health examination with abnormal findings Fatigue, unspecified type Nausea Obesity without serious comorbidity with body mass index (BMI) greater than 99th percentile for age in pediatric patient, unspecified obesity type Procedures ECG 12 lead Johnna Tinajero MD [address] [facility] [address] [place] [address] Phone: tel: fax: [facility] (All Locations) Referral ID Status Reason Start Date Expiration Date Visits Re quested Visits Authorized [id number] Closed 08/16/2019 02/24/2021 1 1 Encounter Details Date Type Department Care Team (Latest Contact Info) Description 08/25/2019 12:18 PM PAINTER CHASSIS - 08/25/2019 11:59 PM PAINTER CHASSIS Hospital Encounter [facility] Pediatric Cardiology [facility] [address] [place] [id number] Encounter for routine child health examination with [...] on file Legal Sex Female 11:42 PM PAINTER CHASSIS Gender Identity Not on file Sexual Orientation [...] Comments ECG 12-LEAD Routine 08/25/2019 12:27 PM PAINTER CHASSIS Encounter for routine child health examination with abnormal findings Fatigue, unspecified type Nausea Obesity without serious comorbidity with body mass index (BMI) greater than 99th percentile for age in pediatric patient, unspecified obesity type documented in this encounter Results * ECG 12 lead (08/25/2019 12:27 PM PAINTER CHASSIS) Ventricular Rate EKG/Min 69 BPM [facility] Atrial Rate 69 BPM [facility] MS-Interval (MSEC) 138 ms [facility] QRS-Interval (MSEC) 78 ms [facility] QT-Interval (MSEC) 380 ms [facility] QTc 412 ms [facility] P [place] 30 degrees [facility] R [place] 9 degrees [facility] T [place] 7 degrees [facility] Diagnosis Normal sinus rhythm with sinus arrhythmia with short MS When compared with ECG of 23-JAN-2017 10:14, patient is now in sinus rhythm Otherwise normal ECG Confirmed by MD NISHA, FELICE ([id number]) on 08/26/2019 6:11:28 AM [facility] 08/25/2019 12:2 4 PM PAINTER CHASSIS 08/26/2019 6:11 AM PAINTER CHASSIS us Johnna Tinajero MD ECG ORDERABLES Final Re sult [facility] documented in this encounter Visit Diagnoses Diagnosis Encounter for routine child health examination with abnormal findings Fatigue, unspecified type Nausea Nausea alone Obesity without serious comorbidity with body mass index (BMI) greater than 99th percentile for age in pediatric patient, unspecified obesity type documented in this encounter Care Teams Grinding Machine Operator Relationship Specialty Start Date End Date Johnna Tinajero MD [address] [address] PCP - General Pediatrics 07/19/19 01/26/23 Johnna Tinajero MD [address] [facility] [address] [place] [address] 07/19/19 documented as of this encounter
--- OUTSIDE RECORDS SUMMARY | 2024-08-28 02:57 | XMS_ITS | Encounter Summary ---
Author Organization [facility] Address [address] [place] [address] Phone Care Team Providers Care Pharmaceutical Detailer Name Role Phone Johnna Tinajero MD Primary Care Provider + Johnna Tinajero MD Unavailable [phone] Reason for Visit * Reason Onset Date Comments Successful Phone Call 09/09/2019 Encounter Details Date Type Department Care Team (Late st Contact Info) Description 09/09/2019 Documentation [facility] Pediatric Gastroenterology [facility] 2nd [place] [address] [place] [address] Nehemiah Zhao MD [address] [place] [address] [address] [place] [address] Successful Phone Call Social History Tobacco Use Types Packs/Day Years Used Date Smoking Tobacco: Never PHQ-2 Answer Date Recorded PHQ-2 Score 4 06/28/2019 Comments No Sex and Gender Information Value Date Recorded Sex Assigned at Not on file 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 I reviewed with her that gallbladder [...] scheduled. 5. Consider CBT with counselor or [facility] psychology and/or supervised exercise program as approaches [...] urgent re-evaluation either with PMD or in [facility] ER. PRINT BLOCKER documented in this encounter Plan of Treatment Not on file documented as of this encounter Visit Diagnoses Diagnosis Abdominal pain, unspecified abdominal location- Primary documented in this encounter Care Teams Pharmaceutical Detailer Relationship Specialty Start Date End Date Johnna Tinajero MD [address] [address] PCP - General Pediatrics 07/19/19 01/26/23 Johnna Tinajero MD [address] [address] 07/19/19 documented as of this encounter
--- OUTSIDE RECORDS SUMMARY | 2024-08-28 02:57 | XMS_ITS | Encounter Summary ---
Author Organization [facility] Address [address] [place] [address] [address] [place] [address] Phone Care Team Providers Care Warehouse Delivery Driver Name Role Phone Johnna Tinajero MD Primary Care Provider + Johnna Tinajero MD Unavailable Encounter Details Date Type Department Care Team (Late st Contact Info) Description 08/26/2019 Telephone [facility] [address] [place] [address] Johnna Tinajero MD [address] [place] [address] Social History Tobacco Use Types Packs/Day Years Used Date Smoking Tobacco: Never PHQ-2 Answer Date Recorded PHQ-2 Score 4 06/28/2019 Comments No Sex and Gender Information Value Date Recorded Sex Assigned at Not on file 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 MANAGER documented in this encounter Plan of [...] as of this encounter Care Teams Warehouse Delivery Driver Relationship Specialty Start Date End Date Johnna Tinajero MD [address] [address] PCP - General Pediatrics 07/19/19 01/26/23 Johnna Tinajero MD [address] [address] 07/19/19 documented as of this encounter
--- OUTSIDE RECORDS SUMMARY | 2024-08-28 02:57 | XMS_ITS | Encounter Summary ---
Author Organization [facility] Address [address] [place] [address] [address] [place] [address] Phone Care Team Providers Care Disc Jockey Name Role Phone Johnna Tinajero MD Primary Care Provider + Johnna Tinajero MD Unavailable [phone] Reason for Visit * Reason Onset Date Comments Abdominal Pain 09/09/2019 Encounter Details Date Type Department Care Team (Late st Contact Info) Description 09/09/2019 Telephone [facility] [address] [facility] [address] [place] [address] Johnna Tinajero MD [address] [place] [address] [address] [place] [address] Abdominal Pain Social History Tobacco Use Types Packs/Day Years Used Date Smoking Tobacco: Never PHQ-2 Answer Date Recorded PHQ-2 Score 4 06/28/2019 Comments No Sex and Gender Information Value Date Recorded Sex Assigned at Not on file Legal Sex Female 11:42 PM CLINICAL ESTHETICIAN Gender Identity Not on file Sexual Orientation [...] Tinajero MD sent at 09/09/2019 1:33 PM CLINICAL ESTHETICIAN ----- Regarding: RE: Nausea Contact: Im not [...] From: Kady Yang Sent: 09/09/2019 10:14 AM CLINICAL ESTHETICIAN To: Johnna Tinajero MD Subject: Nausea Mom wanted to know if pt could get a gall bladder test due to her nausea. Has talked with severalpeople who have had the same issues as Nina, and it was their gall bladder. Let me know, thanks. ICAL ESTHETICIAN ICAL ESTHETICIAN documented in this encounter Plan of Treatment Not on file documented as of this encounter Visit Diagnoses Not on filedocumented in this encounter Care Teams Disc Jockey Relationship Specialty Start Date End Date Johnna Tinajero MD [address] [address] PCP - General Pediatrics 07/19/19 01/26/23 Johnna Tinajero MD [address] [address] 07/19/19 documented as of this encounter
--- OUTSIDE RECORDS SUMMARY | 2024-08-28 02:57 | XMS_ITS | Encounter Summary ---
Author Organization [facility] Address [address] [place] [address] [address] [place] [address] Phone Care Team Providers Care Air Carrier Maintenance Inspector Name Role Phone Johnna Tinajero MD Primary Care Provider + Johnna Tinajero MD Unavailable [phone] Encounter Details Date Type Department Care Team (Late st Contact Info) Description 08/03/[address] [facility] [address] [place] [address] Johnna Tinajero MD [address] [place] [address] Social History Tobacco Use Types Packs/Day Years Used Date Smoking Tobacco: Never PHQ-2 Answer Date Recorded PHQ-2 Score 4 06/28/2019 Comments No Sex and Gender Information Value Date Recorded Sex Assigned at Not on file Legal Sex Female 11:42 PM SHOULDER PAD MOLDER Gender Identity Not on file Sexual Orientation Not on file documented as of this encounter Miscellaneous Notes * Telephone Encounter - Basilia Dillard RN - 08/03/2019 3:58 PM SHOULDER PAD MOLDER PC to pharmacy, script never received for increased Celexa dose so script verbally given to pharmacist at [facility]. They are filling now and will call mom when ready to greens picker. PC to mom to inform her of this, CB as needed. LDER PAD MOLDER documented in this encounter Plan of Treatment Not on file documented as of this encounter Visit Diagnoses Not on filedocumented in this encounter Care Teams Air Carrier Maintenance Inspector Relationship Specialty Start Date End Date Johnna Tinajero MD [address] [address] PCP - General Pediatrics 07/19/19 01/26/23 Johnna Tinajero MD [address] [address] 07/19/19 documented as of this encounter
--- OUTSIDE RECORDS SUMMARY | 2024-08-28 02:57 | XMS_ITS | Encounter Summary ---
Author Organization [facility] Address [address] [place] [address] Phone Care Team Providers Care Evening Sitter Name Role Phone Johnna Tinajero MD Primary Care Provider + Johnna Tinajero MD Unavailable [phone] Reason for Visit * Reason Onset Date Comments Med Refill 09/05/2019 Encounter Details Date Type Department Care Team (Late st Contact Info) Description 09/05/2019 Telephone [facility] [address] [place] [address] Johnna Tinajero MD [address] [place] [address] Med Refill Social History Tobacco Use Types Packs/Day Years Used Date Smoking Tobacco: Never PHQ-2 Answer Date Recorded PHQ-2 Score 4 06/28/2019 Comments No Sex and Gender Information Value Date Recorded Sex Assigned at Not on file Legal Sex Female 11:42 PM PHYSICS AND ASTRONOMY PROFESSOR Gender Identity Not on file Sexual [...] Basilia Dillard RN - 09/05/2019 4:43 PM PHYSICS AND ASTRONOMY PROFESSOR PC from mom requesting refill for Zofran for ongoing nausea/abdominal discomfort. Seen in office on09/02/2019 and was discussed but not sent. Mom also following up on conversation for Dr. Zhao's office and per Dr. Tinajero, they will call mom to schedule further testing/appointment. OK per Dr. Tinajero to fill Zofran. ICS AND ASTRONOMY PROFESSOR * Telephone Encounter - Any Syed RN - 09/05/2019 4:40 PM CST PC from Mother for Zofran refill. ICS AND ASTRONOMY PROFESSOR documented in this encounter Plan of [...] documented as of this encounter Care Teams Evening Sitter Relationship Specialty Start Date End Date Johnna Tinajero MD [address] [address] PCP - General Pediatrics 07/19/19 01/26/23 Johnna Tinajero MD [address] [address] 07/19/19 documented as of this encounter
--- OUTSIDE RECORDS SUMMARY | 2024-08-28 02:57 | XMS_ITS | Encounter Summary ---
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 [address] [place] [address] Rosette Cade DO 1 [facility] [address] [place] [address] Marianela Bruce MD 1 [facility] [address] [place] [address] Right lower quadrant abdominal pain (Primary Dx); Nausea Discharge Disposition: Discharge to home or self care Social History Tobacco Use Types Packs/Day Years Used Date Smoking Tobacco: Never PHQ-2 Answer Date Recorded PHQ-2 Score 4 06/28/2019 Comments No Sex and Gender Information Value Date Recorded Sex Assigned at Not on file Legal Sex Female 11:42 PM APARTMENT HOUSE MANAGER Gender Identity Not on file Sexual Orientation Not on file documented as of this encounter Last Filed Vital Signs Vital Sign Reading Time Taken Comments Blood Pressure 114/71 07/23/2019 11:39 AM APARTMENT HOUSE MANAGER Pulse 57 07/23/2019 11:39 AM APARTMENT HOUSE MANAGER Temperature 36.7 ??C (98.1 ??F) 07/23/2019 1 1:39 AM APARTMENT HOUSE MANAGER Respiratory Rate 18 07/23/2019 11:3 9 AM APARTMENT HOUSE MANAGER Oxygen Saturation 99% 07/23/2019 11: 39 AM APARTMENT HOUSE MANAGER Inhaled Oxygen Concentration - - Weight 104.6 kg (230 lb 9.6 oz) 07/19/2019 8:50 PM APARTMENT HOUSE MANAGER Height 163 cm (5' 4.17 ) 07/19/2019 8:50 PM APARTMENT HOUSE MANAGER Body Mass Index 39.37 07/19/2019 8:50 PM APARTMENT HOUSE MANAGER Body Mass Index Percentile 99.13% 07/19/2019 8:5 0 PM APARTMENT HOUSE MANAGER Growth Chart: [facility] (Girls, 2- 20 Years) documented in [...] ASTHMA, UNCOMPLICATED Constipation, unspecified - CONSTIPATION, UNSPECIFIED 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 steroids - CERAMICS TECHNICIAN (CURRENT) USE OF INHALED STEROIDS Allergy status to penicillin - ALLERGY STATUS TO PENICILLIN Other nonmedicinal substance allergy status - OTHER NONMEDICINAL SUBSTANCE ALLERGY STATUS Irregular menstruation, unspecified - IRREGULAR MENSTRUATION, UNSPECIFIED Other fpc (current) drug therapy - OTHER CERAMICS TECHNICIAN (CURRENT) DRUG THERAPY documented in this encounter Discharge Summaries * Marianela Bruce MD - 07/23/2019 1:36 PM CST Inpatient Discharge Summary BRIEF OVERVIEW Admitting Provider: Marianela Bruce MD Discharge Provider: Marianela Bruce MD Primary Care Physician at Discharge: Johnna Tinajero MD [phone] Admission Date: 07/19/2019 Discharge Date: 07/23/2019 Admission Location: [facility] Chief Complaint: Abdominopelvic pain Primary Discharge Diagnosis: [...] trialed zofran without improvement. Subsequently presentedto [facility] ED - non-surgical, benign abdominal [...] Patient wanted to wait for her primary earring maker before starting OCP so no medication started at this point.A pain control regimen of scheduled tylenol and toradol was started on 07/22 for a total of 5 days. Active Issues Requiring Follow-up: Follow-up with WORKFORCE CONSULTANT about menstrual cycles Test Results Pending at [...] listed below unless specified. Please call your speedboat operator for any of the following: fevers higher than 38.5C or 101.3F, difficulty breathing, chest pain, dizziness,changes in strength or balance, diarrhea or vomiting, abdominalpain, or any other new or worsening symptoms. Please follow up with your earring maker in a week. ?? Summary of care Nina was found to have ovarian cyct and most likely which was causing her belly pain. Please follow with your earring maker in a week for starting oral contraceptive [...] Center 09/02/2019 1:30 PM Johnna Tinajero MD [facility] I have seen and examined the patient [...] consultation during this admission. Marianela Bruce MD TMENT HOUSE MANAGER TMENT HOUSE MANAGER TMENT HOUSE MANAGER documented in this encounter Discharge Instructions * Discharge Instructions* Selin Leon MD - 07/22/2019 5:57 PM APARTMENT HOUSE MANAGER Please feel free to call the office of the adolescent gynecology team that saw you in the hospital.Their number is [phone]. TMENT HOUSE MANAGER documented in this encounter Medications at Time [...] -encourage oral intake - regular diet, POAL -WORKFORCE CONSULTANT following -Scheduled tylenol and toradol q6hr for pain -start OCP with discharge and f/u with gynecology -f/u DHES-A, Testosterone results Cosigned by Marianela Bruce MD at 07/23/2019 1:08 PM APARTMENT HOUSE MANAGER TMENT HOUSE MANAGER TMENT HOUSE MANAGER Associated attestation - Marianela Bruce MD - 07/23/2019 1:08 PM APARTMENT HOUSE MANAGER I have seen and examined the patient [...] amount of free fluid in posterior cul-de-sac -WORKFORCE CONSULTANT following -Schd tylenol and toradol q6hr for [...] Marianela Bruce MD at 07/22/2019 4:54 PM APARTMENT HOUSE MANAGER TMENT HOUSE MANAGER TMENT HOUSE MANAGER Associated attestation - Marianela Bruce MD - 07/22/2019 4:54 PM APARTMENT HOUSE MANAGER I have seen and examined the patient [...] Marianela Bruce MD at 07/21/2019 3:03 PM APARTMENT HOUSE MANAGER TMENT HOUSE MANAGER TMENT HOUSE MANAGER Associated attestation - Marianela Bruce MD - 07/21/2019 3:03 PM APARTMENT HOUSE MANAGER I have seen and examined the patient [...] no appendicitis, + ovarian cyst. Will consult construction analyst today. * Kenya Lee RD - 07/20/2019 [...] follow per policy. Kenya Lee, MS RD [facility] [phone] TMENT HOUSE MANAGER documented in this encounter H&P Notes * [...] trialed zofran without improvement. Subsequently presentedto [facility] ED - non-surgical, benign abdominal [...] Cecilia Owen MD 4 mg at 07/18/19 2155 Medications Prior to Admission Medication Sig Dispense [...] sprays into affectednostril(s) daily ??? FLUZONE QUAD 9258-6373, PF, 60 mcg (15 mcg x 4)/0.5 [...] breo - albuterol PRN q4hrs Cosigned by Marinaela Bruce MD at 07/20/2019 3:22 PM APARTMENT HOUSE MANAGER TMENT HOUSE MANAGER TMENT HOUSE MANAGER Associated attestation - Marianela Bruce MD - 07/20/2019 3:22 PM APARTMENT HOUSE MANAGER I have seen and examined the patient [...] 7:14 AM CSTAssociated Order(s): IP CONSULT TO SHINGLE CUTTER WORKFORCE CONSULTANT Consult Note [id number] Reason for Consult: possible ruptured cyst, pelvic [...] free fluid in the cul de sac. export specialist is consulted for possible ruptured cyst, pelvic [...] every 3-4 hours. She recently saw a Business Data Analyst PA at [facility]) who gave her provera in [...] OB History No obstetric history on file. WORKFORCE CONSULTANT History: No LMP recorded (within months). Menarche: 14 Menses: irregular, every 45-60 days, lasting 5 days, not painful Sexual History: Social History Substance and Sexual Activity Sexual Activity Not on file STD History: none Contraception: NA Family History Adopted: Yes Family history unknown: Yes Family History:No history of WORKFORCE CONSULTANT, breast or colon cancers, No history of [...] Cycles -Menses every 45-60 days -Previously saw earring maker in [place] with plans to start OCPs for cycle [...] formally staff this afternoon Acacia Vick MD Rat Breeder PGY-4 Fellow Attestation: Patient discussed by phone [...] family wish to continue to follow with WORKFORCE CONSULTANT closer to home, number given for PAG should additional questions or concerns arise Justyna Beltran MD Pediatric and Adolescent Gynecology TMENT HOUSE MANAGER TMENT HOUSE MANAGER TMENT HOUSE MANAGER TMENT HOUSE MANAGER * Juan Puldio MD - 07/20/2019 3:09 PM CST Pediatric [...] pain / overall condition. After consulting her speedboat operator on Thursday, the patient was brought to [...] dyspnea, or dyspnea on exertion. Cardiac: No AK, HTN or palpitations. Gastrointestinal: Reports nausea, abdominal [...] time Juan Pulido MD PGY-1 General Surgery [phone] 07/20/19 Thank you for including us in the care of this patient. If you have any questions, please call the on-call Pediatric Surgery resident / team. Cosigned by Maggie Anguiano MD at 07/23/2019 3:13 PM APARTMENT HOUSE MANAGER TMENT HOUSE MANAGER TMENT HOUSE MANAGER Associated attestation - Maggie Anguiano MD - 07/23/2019 3:13 PM APARTMENT HOUSE MANAGER I have seen and examined the patient on 07/21/19. I agree with the findings and plan of care as documented in the resident's/fellow's note and as discussed with the resident/fellow. Patient is a 19 year old girl with history of asthma and irregular menses who develop abdominal pain and nausea on 07/16/19. She has not had fever. She was admitted to [facility] on 07/19/19. She underwent ultrasound [...] discharge instructions with mom who verbalized understanding. TMENT HOUSE MANAGER documented in this encounter ED Notes * [...] straining. Hx of irregular menses followed by WORKFORCE CONSULTANT and starting BC. Sexual Health hx: Pt [...] reassess. By: Sherly Vitale NP Time: 07/19 5503 Comment: After receiving 8mg of Zofran with no improvement of abd pain and nausea. Will try Pepcid (H2 sara) and Maalox due to anorexia and nausea associated with eating. Family updated on plan of care. By: Sherly Vitale NP Time: 07/19 1940 Comment: Pt reports no improvement of symptoms [...] Active Nausea Sherly Vitale NP 07/20/19 1241 TMENT HOUSE MANAGER * Anne No RN - 07/19/2019 11:29 AM CST Bed: ED1-32 Expected date: 07/19/19 Expected time: Means of arrival: Car Comments: Anne No RN 07/19/19 1129 TMENT HOUSE MANAGER * Janna Salinas, RN - 07/19/2019 11:[address] yesterday; checked a urine test there. TMENT HOUSE MANAGER * Janna Salinas RN - 07/19/2019 10:51 AM CST Nauseated since Thursday; pain started yesterday. RLQ pain. No fever. Not eating. TMENT HOUSE MANAGER documented in this encounter Miscellaneous Notes * Plan of Care - Ela Jones RN - 07/23/2019 12:45 PM APARTMENT HOUSE MANAGER Problem: Lack of Knowledge: Goal: Ability to [...] maintain adequate pain control, possible discharge home TMENT HOUSE MANAGER * Assessment & Plan Note - Lisa Rivero MD - 07/23/2019 12:26 PM APARTMENT HOUSE MANAGER Associated Problem(s): Anxiety Followed by therapist, patient [...] attempts or self-harm. - celexa 20mg qHS TMENT HOUSE MANAGER * Assessment & Plan Note - Lisa Rivero MD - 07/23/2019 12:26 PM APARTMENT HOUSE MANAGER Associated Problem(s): Asthma History of numerous hospitalizations due to asthma exacerbations in childhood, with several day long stay in PICU 5 or 6 years ago (no intubations). Asthma presently well-controlled on regimen of qHSbreo inhaler, with no hospitalizations or exacerbations in last several years. - continue qHS breo - albuterol PRN q4hrs TMENT HOUSE MANAGER * Assessment & Plan Note - Lisa Rivero MD - 07/23/2019 12:11 PM APARTMENT HOUSE MANAGER Associated Problem(s): Abdominal pain 19 year old [...] -encourage oral intake - regular diet, POAL -WORKFORCE CONSULTANT following -Scheduled tylenol and toradol q6hr for pain -start OCP with discharge and f/u with gynecology -f/u DHES-A, Testosterone results TMENT HOUSE MANAGER TMENT HOUSE MANAGER * Subjective & Objective - Lisa Rivero MD - 07/23/2019 12:07 PM APARTMENT HOUSE MANAGER Pediatric Daily Progress Note Subjective 19 year [...] last 24 hours: no new lab work. TMENT HOUSE MANAGER * Plan of Care - Abner Kellogg [...] health care provider will improve Outcome: Progressing TMENT HOUSE MANAGER * Plan of Care - Ela Jones RN - 07/22/2019 7:41 AM APARTMENT HOUSE MANAGER Problem: Lack of Knowledge: Goal: Ability to [...] pain, increase mobility and possible discharge home TMENT HOUSE MANAGER * Assessment & Plan Note - Cris Espinoza MD - 07/22/2019 7:17 AM APARTMENT HOUSE MANAGER Associated Problem(s): Anxiety Followed by therapist, patient [...] attempts or self-harm. - celexa 20mg qHS TMENT HOUSE MANAGER * Assessment & Plan Note - Cris Espinoza MD - 07/22/2019 7:17 AM APARTMENT HOUSE MANAGER Associated Problem(s): Asthma History of numerous hospitalizations due to asthma exacerbations in childhood, with several day long stay in PICU 5 or 6 years ago (no intubations). Asthma presently well-controlled on regimen of qHSbreo inhaler, with no hospitalizations or exacerbations in last several years. - continue qHS breo - albuterol PRN q4hrs TMENT HOUSE MANAGER TMENT HOUSE MANAGER * Assessment & Plan Note - Cris Espinoza MD - 07/22/2019 7:16 AM APARTMENT HOUSE MANAGER Associated Problem(s): Abdominal pain 19 year old [...] amount of free fluid in posterior cul-de-sac -WORKFORCE CONSULTANT following -Schd tylenol and toradol q6hr for pain - f/u FSH, LH, prolactin, DHEAS, free and total testerone; if wnl can start OCP TMENT HOUSE MANAGER TMENT HOUSE MANAGER * Subjective & Objective - Cris Espinoza MD - 07/22/2019 7:15 AM APARTMENT HOUSE MANAGER Pediatric Daily Progress Note Subjective Chief complaint [...] this written report and agrees with it. TMENT HOUSE MANAGER * Plan of Care - Aileen Ivey RN - 07/21/2019 8:38 PM APARTMENT HOUSE MANAGER Goals: Clinical Goals for the Shift: increase [...] health care provider will improve Outcome: Progressing TMENT HOUSE MANAGER * Plan of Oscar - Ela Jones RN - 07/21/2019 12:54 PM APARTMENT HOUSE MANAGER Problem: Lack of Knowledge: Goal: Ability to [...] and PRN meds as needed for pain TMENT HOUSE MANAGER * Assessment & Plan Note - Cris Espinoza MD - 07/21/2019 7:29 AM APARTMENT HOUSE MANAGER Associated Problem(s): Anxiety Followed by therapist, patient [...] attempts or self-harm. - celexa 20mg qHS TMENT HOUSE MANAGER * Assessment & Plan Note - Cris Espinoza MD - 07/21/2019 7:29 AM APARTMENT HOUSE MANAGER Associated Problem(s): Asthma History of numerous hospitalizations due to asthma exacerbations in childhood, with several day long stay in PICU 5 or 6 years ago (no intubations). Asthma presently well-controlled on regimen of qHSbreo inhaler, with no hospitalizations or exacerbations in last several years. - continue qHS breo - albuterol PRN q4hrs TMENT HOUSE MANAGER * Assessment & Plan Note - Cris Espinoza MD - 07/21/2019 7:27 AM APARTMENT HOUSE MANAGER Associated Problem(s): Abdominal pain 19 year old [...] amount of free fluid in posterior cul-de-sac TMENT HOUSE MANAGER TMENT HOUSE MANAGER * Subjective & Objective - Cris Espinoza MD - 07/21/2019 7:23 AM APARTMENT HOUSE MANAGER Pediatric Daily Progress Note Subjective Chief complaint [...] this written report and agrees with it. TMENT HOUSE MANAGER TMENT HOUSE MANAGER * Plan of Care - Aileen Ivey RN - 07/20/2019 8:42 PM APARTMENT HOUSE MANAGER Goals: Clinical Goals for the Shift: pain [...] health care provider will improve Outcome: Progressing TMENT HOUSE MANAGER * Hospital Course - Lisa Rivero MD [...] Patient wanted to wait for her primary earring maker before starting OCP so no medication started at this point.A pain control regimen of scheduled tylenol and toradol was started on 07/22 for a total of 5 days. TMENT HOUSE MANAGER TMENT HOUSE MANAGER TMENT HOUSE MANAGER TMENT HOUSE MANAGER * Plan of Care - Antonette Cage [...] adequate pain control and decreased nausea Summary: TMENT HOUSE MANAGER * Assessment & Plan Note - Keara [...] attempts or self-harm. - celexa 20mg qHS TMENT HOUSE MANAGER * Assessment & Plan Note - Keara [...] continue qHS breo - albuterol PRN q4hrs TMENT HOUSE MANAGER * Assessment & Plan Note - Keara [...] and bimanual exam to r/o ovarian pathology TMENT HOUSE MANAGER TMENT HOUSE MANAGER TMENT HOUSE MANAGER TMENT HOUSE MANAGER * Subjective & Objective - Keara Guillory [...] trialed zofran without improvement. Subsequently presentedto [facility] ED - non-surgical, benign abdominal [...] sprays into affectednostril(s) daily ??? FLUZONE QUAD 5052-3321, PF, 60 mcg (15 mcg x 4)/0.5 [...] Value Ref Range HCG, ur Negative Negative TMENT HOUSE MANAGER TMENT HOUSE MANAGER TMENT HOUSE MANAGER TMENT HOUSE MANAGER * Plan of Care - María Van [...] verbalized education and is progressing towards goals. TMENT HOUSE MANAGER * ED Pre-Arrival Note - Eyal Cao EMT - 07/19/2019 9:46 AM APARTMENT HOUSE MANAGER 19 y/o f pt coming in with complaints of abdominal pain. Eyal Cao, MAGALIE TMENT HOUSE MANAGER documented in this encounter Plan of Treatment Not on file documented as of this encounter Procedures Procedure Name Priority Date/Time Associated Diagnosis Comments PROLACTIN Routine 07/22/2019 9:46 AM APARTMENT HOUSE MANAGER DHEA-SULFATE Routine 07/22/2019 9:46 AM APARTMENT HOUSE MANAGER TESTOSTERONE, TOTAL AND FREE, SERUM Routine 07/22/2019 9:46 AM APARTMENT HOUSE MANAGER TSH Add On 07/22/2019 9:46 AM APARTMENT HOUSE MANAGER LUTEINIZING HORMONE (LH) Routine 07/22/2019 9:46 AM APARTMENT HOUSE MANAGER FOLLICLE STIMULATING HORMONE Routine 07/22/2019 9:46 [address] ABDOMEN PELVIS W CONTRAST ED Urgent/IP Urgent 07/21/2019 11:41 AM APARTMENT HOUSE MANAGER DIFFERENTIAL AUTO Routine 07/21/2019 4:0 4 AM APARTMENT HOUSE MANAGER CBC WITH AUTO DIFFERENTIAL Routine 07/21/2019 4:04 AM APARTMENT HOUSE MANAGER US ABDOMEN LIMITED IP Routine 07/20/2019 11 :35 AM APARTMENT HOUSE MANAGER US PELVIS AND OVARIAN DOPPLER LIMITED (C) IP Routine 07/20/2019 11:12 AM APARTMENT HOUSE MANAGER HCG, URINE, QUALITATIVE STAT 07/19/2019 2:11 PM APARTMENT HOUSE MANAGER CALCIUM,IONIZED, WHOLE BLOOD STAT 07/19/2019 1:36 PM APARTMENT HOUSE MANAGER DIFFERENTIAL AUTO STAT 07/19/2019 1:3 6 PM APARTMENT HOUSE MANAGER CREATININE, WHOLE BLOOD STAT 07/19/2019 1:36 PM APARTMENT HOUSE MANAGER GLUCOSE, WHOLE BLOOD STAT 07/19/2019 1:36 PM APARTMENT HOUSE MANAGER ELECTROLYTES, WHOLE BLOOD STAT 07/19/2019 1:36 PM APARTMENT HOUSE MANAGER CBC WITH AUTO DIFFERENTIAL STAT 07/19/2019 1:36 PM APARTMENT HOUSE MANAGER LIPASE STAT 07/19/2019 1:36 PM APARTMENT HOUSE MANAGER AMYLASE STAT 07/19/2019 1:36 PM APARTMENT HOUSE MANAGER US GALLBLADDER ED 07/19/2019 1:21 PM APARTMENT HOUSE MANAGER URINALYSIS AND REFLEX TO MICROSCOPIC STAT 07/19/2019 1:09 PM APARTMENT HOUSE MANAGER URINE CULTURE STAT 07/19/2019 1:09 PM APARTMENT HOUSE MANAGER documented in this encounter Results * TSH (07/22/2019 9:46 AM APARTMENT HOUSE MANAGER) Thyroid Stimulating Hormone 0.99 0.30 - 4.20 mcIUnit/mL [facility] Blood specimen (specimen) 07/22/2019 9:46 AM APARTMENT HOUSE MANAGER 07/22/2019 11:03 AM APARTMENT HOUSE MANAGER us Marianela Bruce MD LAB BLOOD ORDERABLES Final Result [facility] Department [place] [address] * Testosterone, Total and Free, Serum (07/22/2019 9:46 AM APARTMENT HOUSE MANAGER) Testosterone 28.0 ng/dL [facility] Comment: Interpretive Data Reference values: ? [...] ng/dL and remain there until puberty. See [facility] Directory of Services or contact the laboratory for age related normals in puberty. Adult Males (Greater than or equal to 18 years): 264-916 ng/dL Adult Females (Greater than or equal to 18 years): Premenopausal: 10-55 ng/dL Postmenopausal: 7-40 ng/dL Testing performed by: [facility], [place] [address] Current interpretive data was last revised on 2017 Percent Free Testosterone 1.2 % [facility] Comment: Interpretive Data Testing performed by: [place] [address]. Testosterone, free 3.40 pg/mL [facility] Comment: Interpretive Data Testing performed by: [place] [address]. Sex steroid binding globulin 29.9 nmol/L [facility] Comment: Interpretive Data AGE ? RANGE 1 month-2 years ? 60-252 nmol/L Prepubertal (1-8 years) 72-220 nmol/L Pubertal Males ? 16-100 nmol/L Females ? 36-125 nmol/L Adult Males ? 20-50 years ? 16.5-55.9 nmol/L >=50 years ?19.3-76.4 nmol/L Adult Females 20-50 years ? 24.6-122.0 nmol/L >=50 years ?17.3-125.0 nmol/L Testing performed by: [place] [address]. Current interpretive data was last revised on 17. Blood specimen (specimen) 07/22/2019 9:46 AM APARTMENT HOUSE MANAGER 07/22/2019 11:09 AM APARTMENT HOUSE MANAGER us Marianela Bruce MD LAB BLOOD ORDERABLES Final Result Performing Organization Address [facility] [place] [address] * DHEA-sulfate (07/22/2019 9:46 AM APARTMENT HOUSE MANAGER) DHEA-S 87 mcg/dL [facility] Comment: REFERENCE VALUE Jorge ??Mean ?Reference Stage ?? Age ? Range ??____ ? I: ?>14 d ?? 16-96 II: ? 10.5 y ??22-184 III: ?11.6 y ??11-296 IV: ? 12.3 y ??17-343 V: ?14.5 y ??57-736 Test Performed by: [facility] [place] [facility] [place] [address] [place] [address] Director Cost: Viktor Cannon M.D. Ph.D.; IA# [id number] Blood specimen (specimen) 07/22/2019 9:46 AM APARTMENT HOUSE MANAGER 07/22/2019 9:52 AM APARTMENT HOUSE MANAGER us Marianela Bruce MD LAB BLOOD ORDERABLES Final Result Performing Organization Address [facility] [place] [address] * Prolactin (07/22/2019 9:46 AM APARTMENT HOUSE MANAGER) Prolactin 8.9 5.2 - 26.5 ng/mL [facility] Comment:Testing performed by : [facility], [address] [place]., [address] Blood specimen (specimen) 07/22/2019 9:46 AM APARTMENT HOUSE MANAGER 07/22/2019 11:55 AM APARTMENT HOUSE MANAGER Result [facility] Marianela Bruce MD LAB BLOOD ORDERABLES Final Result Performing Organization Address [facility] [place] [address] * LH (07/22/2019 9:46 AM APARTMENT HOUSE MANAGER) LH 4.6 IUnits/L [facility] Comment: Interpretive Data Males: Pre-pubertal: <0.1 IUnits/L Adults: 1-10 IUnits/L Females: Pre-pubertal: <0.1 IUnits/L Adults: Follicular: 2-13 IUnits/L Midcycle: 15-100 IUnits/L Luteal: 1-12 IUnits/L Postmenopause: 7-60 IUnits/L Pre-pubertal range may not be applicable to neonates and young infants. Current interpretive data was last revised on 06. Blood specimen (specimen) 07/22/2019 9:46 AM APARTMENT HOUSE MANAGER 07/22/2019 9:52 AM APARTMENT HOUSE MANAGER Result [facility] Marianela Bruce MD LAB BLOOD ORDERABLES Final Result Performing Organization Address [facility] [place] [address] * Follicle stimulating hormone (07/22/2019 9:46 AM APARTMENT HOUSE MANAGER) FSH 1.8 IUnits/L [facility] Comment: Interpretive Data Males: Pre-pubertal: <4 IUnits/L Adults: 1-15 IUnits/L Females: Pre-pubertal: <4 IUnits/L Adults: Follicular: 3-13 IUnits/L Midcycle: 4-22 IUnits/L Luteal: 1-9 IUnits/L Postmenopause: 25-135 IUnits/L Pre-pubertal range may not be applicable to neonates and young infants. Current interpretive data was last revised on 06. Blood specimen (specimen) 07/22/2019 9:46 AM APARTMENT HOUSE MANAGER 07/22/2019 9:52 AM APARTMENT HOUSE MANAGER us Marianela Bruce MD LAB BLOOD ORDERABLES Final Result [facility] Department [place] [address] * CT Abdomen Pelvis W Contrast (07/21/2019 11:41 AM APARTMENT HOUSE MANAGER) Anatomical Region Laterality Modality Body N/A Computed Tomogra phy 07/21/2019 12:0 7 PM APARTMENT HOUSE MANAGER Impressions 07/21/2019 12:07 PM APARTMENT HOUSE MANAGER 1. ??Normal appendix. 2. ??Right ovarian corpus luteal cyst with mild free fluid in the cul-de-sac. Electronically signed by: Sherly To M.D. Narrative 07/21/2019 12:07 PM APARTMENT HOUSE MANAGER EXAMINATION: ??CT ABDOMEN PELVIS W CONTRAST HISTORY: [...] Result * Differential, auto (07/21/2019 4:04 AM APARTMENT HOUSE MANAGER) Neutrophil abs 2.2 1.7 - 6.5 K/cumm [facility] Imm gran abs 0.0 0.0 - 0.1 K/cumm [facility] Lymphocyte abs 2.5 0.8 - 3.3 K/cumm [facility] Monocyte abs 0.6 0.2 - 0.8 K/cumm [facility] Eosinophil abs 0.2 0.0 - 0.5 K/cumm [facility] Basophil abs 0.1 0.0 - 0.1 K/cumm [facility] Neutrophil pct 38.9 % [facility] Comment: Interpretive Data Percent cell count reference ranges are not reported, since discordance with absolute values may lead to misinterpretation of CBC data. Current Interpretive Data was last revised on 2017. Imm gran pct 0.4 % [facility] Comment: Interpretive Data Percent cell count reference ranges are not reported, since discordance with absolute values may lead to misinterpretation of CBC data. Current Interpretive Data was last revised on 2017. Lymphocyte pct 45.5 % [facility] Comment: Interpretive Data Percent cell count reference ranges are not reported, since discordance with absolute values may lead to misinterpretation of CBC data. Current Interpretive Data was last revised on 2017. Monocyte pct 10.3 % [facility] Comment: Interpretive Data Percent cell count reference ranges are not reported, since discordance with absolute values may lead to misinterpretation of CBC data. Current Interpretive Data was last revised on 2017. Eosinophil pct 3.8 % [facility] Comment: Interpretive Data Percent cell count reference ranges are not reported, since discordance with absolute values may lead to misinterpretation of CBC data. Current Interpretive Data was last revised on 2017. Basophil pct 1.1 % [facility] Comment: Interpretive Data Percent cell count reference ranges are not reported, since discordance with absolute values may lead to misinterpretation of CBC data. Current Interpretive Data was last revised on 2017. Blood specimen (specimen) 07/21/2019 4:04 AM APARTMENT HOUSE MANAGER 07/21/2019 4:10 AM APARTMENT HOUSE MANAGER Marianela Bruce MD LAB BLOOD ORDERABLES Final Result [facility] Department [place] [address] * (ABNORMAL) CBC with auto differential (07/21/2019 4:04 AM APARTMENT HOUSE MANAGER) WBC 5.5 3.8 - 9.9 K/cumm [facility] Hgb 10.5(L) 11.9 - 15.5 g/dL [facility] Hct 33.0(L) 35.6 - 45.5 % [facility] Plt 263 150 - 400 K/cumm [facility] MPV 9.7 9.1 - 12.3 fL [facility] RBC 3.71(L) 3.90 - 5.20 M/cumm [facility] MCV 88.9 81.3 - 96.4 fL [facility] MCH 28.3 27.1 - 33.3 pg [facility] MCHC 31.8(L) 32.3 - 35.7 g/dL [facility] RDW CV 13.3 11.1 - 14.9 % [facility] RDW SD 43.6 35.7 - 48.1 fL [facility] NRBC abs 0.00 0.00 - 0.01 K/cumm [facility] Blood specimen (specimen) 07/21/2019 4:04 AM APARTMENT HOUSE MANAGER 07/21/2019 4:10 AM APARTMENT HOUSE MANAGER us Marianela Bruce MD LAB BLOOD ORDERABLES Final Result Performing Organization Address City/State/[facility] Co de Phone Number [facility] Department [place] [address] * US Abdomen Limited (07/20/2019 11:35 AM APARTMENT HOUSE MANAGER) Anatomical Region Laterality Modality Abdomen N/A Ultrasound 07/20/2019 11:4 2 AM APARTMENT HOUSE MANAGER Impressions 07/20/2019 11:42 AM APARTMENT HOUSE MANAGER Appendix not visualized, no definitive secondary signs of appendicitis. ??Exam limited due to the patient's body habitus. Electronically signed by: Romie Fierro M.D. Narrative 07/20/2019 11:42 AM APARTMENT HOUSE MANAGER EXAMINATION:US ABDOMEN LIMITED COMPARISON:02/17/2018 HISTORY: Rule out [...] and Ovarian Doppler Limited (07/20/2019 11:12 AM APARTMENT HOUSE MANAGER) Anatomical Region Laterality Modality Pelvis N/A Ultrasound 07/20/2019 11:1 6 AM APARTMENT HOUSE MANAGER Impressions 07/20/2019 11:28 AM APARTMENT HOUSE MANAGER Normal. ?? Dictated by: Pipe Lopes The radiology attending physician has personally reviewed this study, and had reviewed and/or edited this written report and agrees with it. Electronically signed by: Romie Fierro M.D. Narrative 07/20/2019 11:28 AM APARTMENT HOUSE MANAGER EXAMINATION: ??US PELVIS AND OVARIAN DOPPLER LIMITED [...] * hCG, urine, qualitative (07/19/2019 2:11 PM APARTMENT HOUSE MANAGER) Pathologist [facility] HCG, ur Negative Negative [facility] Urine 07/19/2019 2:11 PM APARTMENT HOUSE MANAGER 07/19/2019 2:14 PM APARTMENT HOUSE MANAGER Sherly Vitale NP LAB URINE ORDERABLES Fin al Result [facility] Department [place] [address] * Differential, auto (07/19/2019 1:36 PM APARTMENT HOUSE MANAGER) Pathologist [facility] Neutrophil abs 3.7 1.7 - 6.5 K/cumm [facility] Imm gran abs 0.0 0.0 - 0.1 K/cumm [facility] Lymphocyte abs 2.4 0.8 - 3.3 K/cumm [facility] Monocyte abs 0.7 0.2 - 0.8 K/cumm [facility] Eosinophil abs 0.2 0.0 - 0.5 K/cumm [facility] Basophil abs 0.1 0.0 - 0.1 K/cumm [facility] Neutrophil pct 51.7 % [facility] Comment: Interpretive Data Percent cell count reference ranges are not reported, since discordance with absolute values may lead to misinterpretation of CBC data. Current Interpretive Data was last revised on 2017. Imm gran pct 0.4 % [facility] Comment: Interpretive Data Percent cell count reference ranges are not reported, since discordance with absolute values may lead to misinterpretation of CBC data. Current Interpretive Data was last revised on 2017. Lymphocyte pct 34.1 % [facility] Comment: Interpretive Data Percent cell count reference ranges are not reported, since discordance with absolute values may lead to misinterpretation of CBC data. Current Interpretive Data was last revised on 2017. Monocyte pct 9.5 % [facility] Comment: Interpretive Data Percent cell count reference ranges are not reported, since discordance with absolute values may lead to misinterpretation of CBC data. Current Interpretive Data was last revised on 2017. Eosinophil pct 3.5 % [facility] Comment: Interpretive Data Percent cell count reference ranges are not reported, since discordance with absolute values may lead to misinterpretation of CBC data. Current Interpretive Data was last revised on 2017. Basophil pct 0.8 % [facility] Comment: Interpretive Data Percent cell count reference ranges are not reported, since discordance with absolute values may lead to misinterpretation of CBC data. Current Interpretive Data was last revised on 2017. Blood specimen (specimen) 07/19/2019 1:36 PM APARTMENT HOUSE MANAGER 07/19/2019 1:43 PM APARTMENT HOUSE MANAGER us Sherly Vitale [facility] LAB BLOOD ORDERABLES Fin al Result [facility] Department [place] [address] * Amylase (07/19/2019 1:36 PM APARTMENT HOUSE MANAGER) Amylase 39 0 - 130 Units/L [facility] Blood specimen (specimen) 07/19/2019 1:36 PM APARTMENT HOUSE MANAGER 07/19/2019 1:43 PM APARTMENT HOUSE MANAGER Sherly Vitale [facility] LAB BLOOD ORDERABLES Fin al Result Performing Organization Address [facility] de Phone Number [facility] [place] [address] * Lipase (07/19/2019 1:36 PM APARTMENT HOUSE MANAGER) Lipase 20 5 - 50 Units/L [facility] Blood specimen (specimen) 07/19/2019 1:36 PM APARTMENT HOUSE MANAGER 07/19/2019 1:43 PM APARTMENT HOUSE MANAGER us Sherly Vitale [facility] LAB BLOOD ORDERABLES Fin al Result Performing Organization Address [facility] de Phone Number [facility] [place] [address] * CBC with auto differential (07/19/2019 1:36 PM APARTMENT HOUSE MANAGER) WBC 7.2 3.8 - 9.9 K/cumm [facility] Hgb 13.5 11.9 - 15.5 g/dL [facility] Hct 41.2 35.6 - 45.5 % [facility] Plt 348 150 - 400 K/cumm [facility] MPV 9.8 9.1 - 12.3 fL [facility] RBC 4.77 3.90 - 5.20 M/cumm [facility] MCV 86.4 81.3 - 96.4 fL [facility] MCH 28.3 27.1 - 33.3 pg [facility] MCHC 32.8 32.3 - 35.7 g/dL [facility] RDW CV 13.3 11.1 - 14.9 % [facility] RDW SD 41.8 35.7 - 48.1 fL [facility] NRBC abs 0.00 0.00 - 0.01 K/cumm [facility] Blood specimen (specimen) 07/19/2019 1:36 PM APARTMENT HOUSE MANAGER 07/19/2019 1:43 PM APARTMENT HOUSE MANAGER us Sherly Vitale [facility] LAB BLOOD ORDERABLES Fin al Result Performing Organization Address [facility]/State/[facility] [place] [address] * Creatinine, whole blood (07/19/2019 1:36 PM APARTMENT HOUSE MANAGER) Creatinine, bld 0.8 0.4 - 1.0 mg/dL [facility] Blood specimen (specimen) 07/19/2019 1:36 PM APARTMENT HOUSE MANAGER 07/19/2019 1:42 PM APARTMENT HOUSE MANAGER Sherly Vitale [facility] LAB BLOOD ORDERABLES Fin al Result Performing Organization Address [facility] [place] [address] * Calcium, ionized, whole blood (07/19/2019 1:36 PM APARTMENT HOUSE MANAGER) Ca, ionized, bld 4.84 3.90 - 5.20 mg/dL [facility] Blood specimen (specimen) 07/19/2019 1:36 PM APARTMENT HOUSE MANAGER 07/19/2019 1:42 PM APARTMENT HOUSE MANAGER Sherly Vitale [facility] LAB BLOOD ORDERABLES Fin al Result Performing Organization Address [facility] [place] [address] * Glucose, whole blood (07/19/2019 1:36 PM APARTMENT HOUSE MANAGER) Glucose, bld 74 70 - 199 mg/dL [facility] Blood specimen (specimen) 07/19/2019 1:36 PM APARTMENT HOUSE MANAGER 07/19/2019 1:42 PM APARTMENT HOUSE MANAGER Sherly Vitale [facility] LAB BLOOD ORDERABLES Fin al Result Performing Organization Address [facility] [place] [address] * Electrolytes, whole blood (07/19/2019 1:36 PM APARTMENT HOUSE MANAGER) Sodium, Whole Blood 140 135 - 145 mmol/L [facility] Potassium, bld 4.2 3.3 - 4.9 mmol/L [facility] Chloride, bld 102 100 - 114 mmol/L [facility] CO2, Total Calculated, Whole Blood 29 20 - 30 mmol/L [facility] Anion Gap, Whole Blood 10 mmol/L [facility] Blood specimen (specimen) 07/19/2019 1:36 PM APARTMENT HOUSE MANAGER 07/19/2019 1:42 PM APARTMENT HOUSE MANAGER us Sherly Vitale [facility] LAB BLOOD ORDERABLES Fin al Result [facility] Department [place] [address] * US Gallbladder (07/19/2019 1:21 PM APARTMENT HOUSE MANAGER) Anatomical Region Laterality Modality Abdomen N/A Ultrasound 07/19/2019 1:34 PM APARTMENT HOUSE MANAGER Impressions 07/19/2019 1:38 PM APARTMENT HOUSE MANAGER Normal gallbladder. Dictated by: Luciano Rivas M.D. The radiology attending physician has personally reviewed this study, and had reviewed and/or edited this written report and agrees with it. Electronically signed by: Romie Fierro M.D. Narrative 07/19/2019 1:38 PM APARTMENT HOUSE MANAGER EXAMINATION: ??US GALLBLADDER HISTORY: ??19-year-old female with [...] agrees with it. Electronically signed by: Romie Feirro M.D. Sherly Vitale [facility] US PROCEDURES Final Result * Urine culture Urine, clean voided (07/19/2019 1:09 PM APARTMENT HOUSE MANAGER) Report Final Report: Less than 10,000 colonies/mL (clinically insignificant growth based on current clinical standards) [facility] Comment:Testing performed by : [facility], [address] [place]., [address] Organism (CLINICALLY INSIGNIFICANT GROWTH [facility] Urine, clean voided 07/19/2019 1:09 PM APARTMENT HOUSE MANAGER 07/19/2019 2:11 PM APARTMENT HOUSE MANAGER Narrative [facility] - 07/20/2019 5:39 PM APARTMENT HOUSE MANAGER Indications for Culture:->Other (specify) Other Indication:->abd and back pain Testing performed by [facility] Microbiology Laboratory ([phone]) us Sherly Vitale NP LAB MICROBIOLOGY - GENER AL ORDERABLES Final Result [facility] Department [place] [address] * Urinalysis reflex to microscopic (07/19/2019 1:09 PM APARTMENT HOUSE MANAGER) Color, ur Yellow Yellow [facility] Clarity, ur Clear Clear [facility] Specific gravity, ur 1.014 1.010 - 1.025 [facility] pH, urine 5.5 [facility] Protein, ur ql Negative Negative [facility] Glucose, ur ql Negative Negative [facility] Ketones, ur Trace Negative [facility] Bilirubin, ur Negative Negative [facility] Blood, ur Negative Negative [facility] Urobilinogen, ur 1.0 <2.0 mg/dL [facility] Nitrite, ur Negative Negative [facility] Leukocyte esterase, ur Negative Negative [facility] UA reflex comment Reflex conditions for microscopic UA not met. [facility] Urine 07/19/2019 1:09 PM APARTMENT HOUSE MANAGER 07/19/2019 1:15 PM APARTMENT HOUSE MANAGER Narrative [facility] - 07/19/2019 1:26 PM APARTMENT HOUSE MANAGER ?? Urine pH is affected by diet, medications, systemic acid-base disturbances, and renal tubular function. ??pH may affect urinary stone formation. ??For example, urine pH below 6.0 may help reduce the tendency for calcium phosphate stones and pH greater than 6.0 may reduce the tendency for uric acid stone formation. Source: [facility] [employer] Last revised 09-10-2017 us Sherly Vitale NP LAB URINE ORDERABLES Fin al Result [facility] Department [place] [address] documented in this encounter Visit Diagnoses Diagnosis [...] for abdominal pain Given 07/21/2019 9:30 PM APARTMENT HOUSE MANAGER 500 mg Given 07/21/2019 3:30 PM APARTMENT HOUSE MANAGER 500 mg Given 07/21/2019 7:45 AM APARTMENT HOUSE MANAGER 500 mg acetaminophen (TYLENOL) tablet 500 mg 500 mg, oral, Every 6 hours scheduled, First dose on Thu07/22/19 at 1100 Given 07/23/2019 11:51 AM APARTMENT HOUSE MANAGER 500 mg Given 07/22/2019 6:12 PM APARTMENT HOUSE MANAGER 500 mg Given 07/22/2019 11:59 AM APARTMENT HOUSE MANAGER 500 mg aluminum-magnesium hydroxide-simethicone (MAALOX) 40-40-4 mg/mL oral suspension 20 mL 20 mL, oral, Once, On Thu07/19/19 at 1519, For 1 dose Given 07/19/2019 3:57 PM APARTMENT HOUSE MANAGER 20 mL calcium carbonate (TUMS) chewable tablet 500 mg 500 mg (200 mg of elemental calcium), oral, Once, On Celia 07/21/19 at 2045, For 1 dose Given 07/21/2019 8:22 PM APARTMENT HOUSE MANAGER 50 0 mg calcium carbonate (TUMS) chewable tablet 500 mg 500 mg (200 mg of elemental calcium), oral, Once, On Thu07/22/19 at 0445, For 1 dose Given 07/22/2019 4:21 AM APARTMENT HOUSE MANAGER 50 0 mg citalopram (CeleXA) tablet 20 mg 20 mg, oral, Nightly, First dose (after last modification) on Thu07/19/19 at 2300 Given 07/22/2019 8:11 PM APARTMENT HOUSE MANAGER 20 mg Given 07/21/2019 8:01 PM APARTMENT HOUSE MANAGER 20 mg Given 07/20/2019 7:44 PM APARTMENT HOUSE MANAGER 20 mg dextrose 5% and sodium chloride 0.9% infusion (premix) 218 mL/hr, intravenous, Continuous, Starting on Thu07/19/19 at 1806 New Bag 07/19/2019 6:32 PM APARTMENT HOUSE MANAGER 218 mL/hr 218 mL/hr dextrose 5% and sodium chloride 0.9% infusion (premix) 1 L/m2/day ? 2.18 m2 (90.8333 mL/hr, rounded to 90.8 mL/hr), intravenous, Continuous, Starting on Thu07/20/19 at 0000, On hold since 07/23/2019 at 1035 until manually unheld New Bag 07/22/2019 10:56 PM APARTMENT HOUSE MANAGER 1 L/m2/day 90.8 mL/hr Rate/Dose Change 07/22/2019 8:00 PM APARTMENT HOUSE MANAGER 1 L/m2/day 90.8 mL /hr New Bag 07/22/2019 11:59 AM APARTMENT HOUSE MANAGER 1 L/m2/day 90.8 mL/hr diphenhydrAMINE (BENADRYL) injection 50 mg 50 mg, intravenous, Administer over 15 Minutes, Once, On Thu07/19/19 at 1806, For 1 dose Given 07/19/2019 6:33 PM APARTMENT HOUSE MANAGER 50 mg diphenhydrAMINE (BENADRYL) tab/cap 25 mg 25 mg, oral, Once as needed, 3rd line for abdominal pain, Starting on Thu07/20/19 at 0915, For 1 dose, 3rd line for abdominal pain Given 07/20/2019 9:2 8 PM APARTMENT HOUSE MANAGER 25 mg diphenhydrAMINE (BENADRYL) tab/cap 25 mg 25 mg, oral, Once as needed, 3rd line for abdominal pain, Starting on Celia 07/21/19 at 1451, For 1 dose, 3rd line for abdominal pain Given 07/21/2019 3:3 0 PM APARTMENT HOUSE MANAGER 25 mg famotidine (PEPCID) tablet 20 mg 20 mg, oral, Once, On Thu07/19/19 at 1505, For 1 dose Given 07/19/2019 3:13 PM APARTMENT HOUSE MANAGER 20 mg fluticasone furoate-vilanterol (BREO ELLIPTA) 100-25 mcg/dose inhaler 1 puff 1 puff, inhalation, Nightly, First dose on Thu07/19/19 at 2215, Drug Name: Breo ellipta, Form: aerosol powder, Length of Therapy: Indefinite, How soon needed? (normally 72 hrs needed to procure): 0-24 hrs, Reason for Non-Formulary: patient with history of severe asthma, stable on this long-term therapy Given 07/22/2019 8:11 PM APARTMENT HOUSE MANAGER 1 puff Given 07/21/2019 8:01 PM APARTMENT HOUSE MANAGER 1 puff Given 07/20/2019 7:45 PM APARTMENT HOUSE MANAGER 1 puff ioversol intravenous syringe 100 mL 100 mL, intravenous, Once in imaging, contrast, Starting on Celia 07/21/19 at 1138, For 1 dose Given 07/21/2019 11:41 AM APARTMENT HOUSE MANAGER 100 mL ketorolac (TORADOL) 15 mg/mL injection 30 mg 30 mg, intravenous, Administer over 5 Minutes, Once, On Thu07/19/19 at 1806, For 1 dose Given 07/19/2019 6:57 PM APARTMENT HOUSE MANAGER 30 mg ketorolac (TORADOL) 15 mg/mL injection 30 mg 30 mg, intravenous, Administer over 5 Minutes, Every 6 hours PRN, 1st line for pain, Starting on Celia 07/21/19 at 1224, For 1 day, First dose after NSB is finished Given 07/22/2019 8:28 AM APARTMENT HOUSE MANAGER 30 m g Given 07/21/2019 5:43 PM APARTMENT HOUSE MANAGER 30 mg Given 07/21/2019 12:45 PM APARTMENT HOUSE MANAGER 30 mg ketorolac (TORADOL) 15 mg/mL injection 30 mg 30 mg, intravenous, Administer over 5 Minutes, Every 6 hours, First dose on Thu07/22/19 at 1500, For 5 days Given 07/23/2019 2:35 PM APARTMENT HOUSE MANAGER 30 mg Given 07/23/2019 9:17 AM APARTMENT HOUSE MANAGER 30 mg Given 07/23/2019 3:36 AM APARTMENT HOUSE MANAGER 30 mg lidocaine 1% buffered injection 0.1 mL 0.1 mL, subcutaneous, Once, On Thu07/19/19 at 1251, For 1 dose, Maximum daily dose 0.1 mL/kg, Administer immediately prior to procedure. Given 07/19/2019 1:38 PM APARTMENT HOUSE MANAGER 0.1 mL Other (Comment) ondansetron (ZOFRAN) injection 4 mg 4 mg, intravenous, Administer over 15 Minutes, Once, On Thu07/21/19 at 1015, For 1 dose, Maximum dose = 4 mg Given 07/21/2019 9:50 AM APARTMENT HOUSE MANAGER 4 mg ondansetron ODT (ZOFRAN-ODT) disintegrating tablet 4 mg 4 mg, oral, Every 6 hours PRN, nausea, vomiting, Starting on Thu07/22/19 at 1126 Given 07/23/2019 2:35 PM APARTMENT HOUSE MANAGER 4 mg Given 07/23/2019 7:56 AM APARTMENT HOUSE MANAGER 4 mg Given 07/22/2019 8:16 PM APARTMENT HOUSE MANAGER 4 mg ondansetron ODT (ZOFRAN-ODT) disintegrating tablet 8 mg 8 mg, oral, Once, On Thu07/19/19 at 1404, For 1 dose Given 07/19/2019 2:09 PM APARTMENT HOUSE MANAGER 8 mg polyethylene glycol (MIRALAX) packet 17 g 17 g, oral, Daily PRN, constipation, Starting on Thu07/22/19 at 0859, Indications: constipationIndications:constipat ion prochlorperazine (COMPAZINE) injection 10 mg 10 mg, intravenous, Administer over 5 Minutes, Once, On Thu07/19/19 at 1806, For 1 dose Given 07/19/2019 7:26 PM APARTMENT HOUSE MANAGER 10 mg sodium chloride 0.9% 0.9% infusion - ADS Override Pull Starting on Thu07/21/19 at 1212, For 1 dose, Created by cabinet override sodium chloride 0.9% bolus 1,000 mL 1,000 mL, intravenous, at 1,000 mL/hr, Administer over 1 Hours, Once, On Thu07/19/19 at 1251, For 1 dose, Maximum dose = 1000 mL New Bag 07/19/2019 1:40 PM APARTMENT HOUSE MANAGER 1,000 mL 1000 mL/hr sodium chloride 0.9% bolus 1,000 mL 1,000 mL, intravenous, Once, On Thu07/19/19 at 2230, For 1 dose New 07/19/2019 10:38 PM APARTMENT HOUSE MANAGER 1,000 mL sodium chloride 0.9% bolus 1,000 mL 1,000 mL, intravenous, Once as needed, 2nd line for pain, Starting on Thu07/20/19 at 0915, For 1 dose, 2nd line for abdominal pain New 07/20/2019 7:54 PM APARTMENT HOUSE MANAGER 1,000 mL sodium chloride 0.9% bolus 1,000 mL 1,000 mL, intravenous, Once as needed, 2nd line for pain, Starting on Thu07/21/19 at 0851, For 1 dose, 2nd line for abdominal pain New 07/21/2019 8:55 AM APARTMENT HOUSE MANAGER 1,000 mL sodium chloride 0.9% bolus 1,000 mL 1,000 mL, intravenous, Once, On Thu07/21/19 at 1300, For 1 dose New 07/21/2019 12:15 PM APARTMENT HOUSE MANAGER 1,000 mL documented in this encounter Discontinued [...] daily. Therapy completed 12/19/2016 07/19/2019 FLUZONE QUAD [id number], PF, 60 mcg (15 mcg x 4)/0.5 [...] Recently Administered Medications Times are shown in APARTMENT HOUSE MANAGER. Scheduled Medication Order 07/21/2019 07/22/2019 07/23/2019 acetaminophen (TYLENOL) tablet 500 mg 500 mg, oral, Every 6 hours scheduled, First dose on Thu07/22/19 at 1100 1159 (Given - Provider: Ela Jones RN)1812 (Given - Provider: Ela Jones RN) 0036 (Not Given - Provider: Abner [...] 2.5 mg, nebulization, Every 4 hours PRN (manager respiratory care), wheezing, Starting on Thu07/19/19 at 2144, 2nd line albuterol HFA (PROVENTIL HFA,VENTOLIN HFA,PROAIR HFA) 90 mcg/actuation inhaler 2 puff 2 puff, inhalation, Every 4 hours PRN (manager respiratory care), wheezing, Starting on Thu07/19/19 at 2143, First [...] First Orde red Date IP CONSULT TO SHINGLE CUTTER 1 07/21/2019 IV Count Last Ordered Date First Orde red Date INSERT PERIPHERAL IV 1 07/19/2019 ADT Patient Update Count Last Ordered Date Firs t Ordered Date ED IP DECISION TO ADMIT 1 07/19/2019 documented in this encounter Care Teams [employer] Relationship Specialty Start Date End Date Johnna Tinajero MD [address] [facility] [address] [place] [address] PCP - General Pediatrics 07/19/19 01/26/23 Johnna Tinajero MD [address] [facility] [address] [place] [address] 07/19/19 documented as of this encounter
--- OUTSIDE RECORDS SUMMARY | 2024-08-28 02:57 | XMS_ITS | Encounter Summary ---
Author Organization [facility] Address [address] [place] [address] [address] [place] [address] Phone Care Team Providers Care Optics Technical Officer Name Role Phone Johnna Tinajero MD Primary Care Provider + Johnna Tinajero MD Unavailable [phone] Reason for Visit * Reason Comments Well Child 19 YEAR CHECK Encounter Details Date Type Department Care Team (Late st Contact Info) Description 09/02/2019 1:30 PM RISK PROFESSIONAL Office Visit [facility] [address] [facility] [address] [place] [address] Johnna Tinajero MD [address] [place] [address] Encounter for routine child health examination with abnormal findings (Primary Dx); Nausea; Asthma, moderate persistent, well-controlled; Irregular menses; Anxiety Social History Tobacco Use Types Packs/Day Years Used Date Smoking Tobacco: Never PHQ-2 Answer Date Recorded PHQ-2 Score 4 06/28/2019 Comments No Sex and Gender Information Value Date Recorded Sex Assigned at Not on file Legal Sex Female 11:42 PM RISK PROFESSIONAL Gender Identity Not on file Sexual Orientation Not on file documented as of this encounter Last Filed Vital Signs Vital Sign Reading Time Taken Comments Blood Pressure 112/80 09/02/2019 1:43 PM RISK PROFESSIONAL USING EXTRA LARGE CUFF Pulse - - Temperature - - Respiratory Rate - - Oxygen Saturation - - Inhaled Oxygen Concentration - - Weight 101.3 kg (223 lb 6.4 oz) 09/02/2019 1:43 PM RISK PROFESSIONAL Height 162 cm (5' 3.78 ) 09/02/2019 1:4 3 PM RISK PROFESSIONAL Body Mass Index 38.61 09/02/2019 1:43 PM RISK PROFESSIONAL Body Mass Index Percentile 98.91% 09/02 1:43 PM RISK PROFESSIONAL Growth Chart: [facility] (Girls, 2- 20 Years) documented in [...] out of that now. Taking Align per Typing Secretary. She thinks her Lexapro is helping with her anxiety some days more than others. Asthma has not been acting up; not symptomatic. Mom thinks she is managing the chronic not feeling well most days. Has had some good days and did things with people from out of town. Did go on the [place] and went skating but the next day felt worse, slept a lot more. LMP was 12/; has not started the OCP yet; wants to wait till gets her period. The contact center engineer did not think her nausea was attributable to contact center engineer problems. Patient Active Problem List Diagnosis ??? [...] activity: choir. Menses: Lmp was July, saw urology physician, see above. Ongoing irregular mentses High risk behaviors: None Wears a helmet: N/A Wears seatbelt: Yes Any concerns about hearing or vision? No Objective Vitals: 09/02/19 1343 BP: 112/80 Weight: 101.3 kg (223 lb 6.4 oz) Height: 162 cm (5' 3.78 ) 99 %ile (Z= 2.25) based on CDC (Girls, 2-20 Years) ijswye-[id number] data using vitals from 09/02/2019. 44 %ile (Z= -0.16) based on CDC (Girls, 2-20 Years) Clnakfe-mpe-sos data based on Stature recorded on 09/02/2019. 99 %ile (Z= 2.24) based on [facility] (Girls, 2-20 Years) BMI-for-age based on BMI [...] up 4. Irregular menses Plan as per TELEVISION CABLE INSTALLER; to start OCP after next menses and [...] or sooner as needed. Johnna Tinajero MD PROFESSIONAL documented in this encounter Plan of Treatment [...] 09/02/2019 documented in this encounter Care Teams Optics Technical Officer Relationship Specialty Start Date End Date Johnna Tinajero MD [address] [address] PCP - General Pediatrics 07/19/19 01/26/23 Johnna Tinajero MD [address] [address] 07/19/19 documented as of this encounter
--- OUTSIDE RECORDS SUMMARY | 2024-08-28 02:57 | XMS_ITS | Encounter Summary ---
Author Organization [facility] Care Team Providers Care Rinkman Name Role Phone Johnna Tinajero MD Primary Care Provider + Johnna Tinajero MD Unavailable [phone] Encounter Details Date Type Department Care Team (Latest Contact Info) Description 09/13/2019 Travel Social History Tobacco Use Types Packs/Day Years Used Date Smoking Tobacco: Never PHQ-2 Answer Date Recorded PHQ-2 Score 4 06/28/2019 Comments No Sex and Gender Information Value Date Recorded Sex Assigned at Not on file Legal Sex Female 11:42 PM YEAST CULTURE OPERATOR Gender Identity Not on file Sexual Orientation Not on file documented as of this encounter Plan of Treatment Not on file documented as of this encounter Visit Diagnoses Not on filedocumented in this encounter Care Teams Rinkman Relationship Specialty Start Date End Date Johnna Tinajero MD [address] [address] PCP - General Pediatrics 07/19/19 01/26/23 Johnna Tinajero MD [address] [address] 07/19/19 documented as of this encounter
--- OUTSIDE RECORDS SUMMARY | 2024-08-28 02:57 | XMS_ITS | Encounter Summary ---
Author Organization [facility] Address [address] [place] [address] [address] [place] [address] Phone Care Team Providers Care Clinical Training Specialist Name Role Phone Johnna Tinajero MD Primary Care Provider + Johnna Tinajero MD Unavailable [phone] Encounter Details Date Type Department Care Team (Late st Contact Info) Description 09/29/2019 Telephone [facility] [facility] [address] [place] [address] Johnna Tinajero MD [address] [place] [address] Social History Tobacco Use Types Packs/Day Years Used Date Smoking Tobacco: Never PHQ-2 Answer Date Recorded PHQ-2 Score 4 06/28/2019 Comments No Sex and Gender Information Value Date Recorded Sex Assigned at Not on file Legal Sex Female 11:42 PM TRIAGE NURSE Gender Identity Not on file Sexual Orientation Not on file documented as of this encounter Miscellaneous Notes * Telephone Encounter - Basilia Dillard RN - 09/29/2019 5:11 PM TRIAGE NURSE PC to mom, since the GI team [...] Tinajero MD sent at 09/29/2019 12:25 PM TRIAGE NURSE ----- Regarding: RE: F/U Contact: If she [...] Basilia Dillard RN Sent: 09/28/2019 3:37 PM TRIAGE NURSE To: Johnna Tinajero MD Subject: F/U PC [...] Overall she is doing better. Thanks, Kiran GE NURSE GE NURSE documented in this encounter Plan of Treatment Not on file documented as of this encounter Visit Diagnoses Not on filedocumented in this encounter Care Teams Clinical Training Specialist Relationship Specialty Start Date End Date Johnna Tinajero MD [address] [id number] PCP - General Pediatrics 07/19/19 01/26/23 Johnna Tinajero MD [address] [facility] [address] [place] [address] 07/19/19 documented as of this encounter
--- OUTSIDE RECORDS SUMMARY | 2024-08-28 02:57 | XMS_ITS | Encounter Summary ---
Author Organization [facility] Address [address] [place] [address] [address] [place] [address] Phone Care Team Providers Care Meat Lugger Name Role Phone Johnna Tinajero MD Primary Care Provider + Johnna Tinajero MD Unavailable [phone] Encounter Details Date Type Department Care Team (Late st Contact Info) Description 10/12/2019 Telephone [facility] [facility] [address] [place] [address] Johnna Tinajero MD [address] [place] [address] Social History Tobacco Use Types Packs/Day Years Used Date Smoking Tobacco: Never PHQ-2 Answer Date Recorded PHQ-2 Score 4 06/28/2019 Comments No Sex and Gender Information Value Date Recorded Sex Assigned at Not on file Legal Sex Female 11:42 PM COUNSELOR AIDE Gender Identity Not on file Sexual Orientation Not on file documented as of this encounter Miscellaneous Notes * Telephone Encounter - Kady Yang - 10/12/2019 1:30 PM CST Spoke with mom, advised our office would get back with her PETRA regarding a pediatric psychiatrist.C/B PRN ----- Message from Johnna Tinajero MD sent at 10/11/2019 5:40 PM COUNSELOR AIDE ----- Will you please let mom know [...] From: Deidre Saavedra Sent: 10/11/2019 4:18 PM COUNSELOR AIDE To: Johnna Tinajero MD Mom called, wanting to know if you were able to speak with GI yet. You can reply to triage. Thanks SELOR AIDE SELOR AIDE documented in this encounter Plan of Treatment Not on file documented as of this encounter Visit Diagnoses Not on filedocumented in this encounter Care Teams Meat Lugger Relationship Specialty Start Date End Date Johnna Tinajero MD [address] [address] PCP - General Pediatrics 07/19/19 01/26/23 Johnna Tinajero MD [address] [address] 07/19/19 documented as of this encounter
--- OUTSIDE RECORDS SUMMARY | 2024-08-28 02:57 | XMS_ITS | Encounter Summary ---
Author Organization [facility] Address [address] [place] [address] Phone Care Team Providers Care Lettuce Trimmer Name Role Phone Johnna Tinajero MD Primary Care Provider + Johnna Tinajero MD Unavailable [phone] Reason for Visit * Reason Onset Date Comments update 10/04/2019 Encounter Details Date Type Department Care Team (Late st Contact Info) Description 10/04/2019 Telephone [facility] [address] [facility] [address] [place] [address] Johnna Tinajero MD [address] [place] [address] update Social History Tobacco Use Types Packs/Day Years Used Date Smoking Tobacco: Never PHQ-2 Answer Date Recorded PHQ-2 Score 4 06/28/2019 Comments No Sex and Gender Information Value Date Recorded Sex Assigned at Not on file Legal Sex Female 11:42 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 Is seeing GI on 10/05/2019. Has not given anxiety meds until she sees GI. Mom will c/b with update. STUDIO TEACHER documented in this encounter Plan of Treatment Not on file documented as of this encounter Visit Diagnoses Not on filedocumented in this encounter Care Teams Lettuce Trimmer Relationship Specialty Start Date End Date Johnna Tinajero MD [address] [address] PCP - General Pediatrics 07/19/19 01/26/23 Johnna Tinajero MD [address] [address] 07/19/19 documented as of this encounter
--- OUTSIDE RECORDS SUMMARY | 2024-08-28 02:57 | XMS_ITS | Encounter Summary ---
Author Organization [facility] Address [address] [place] [address] [address] [place] [address] Phone Care Team Providers Care Fish Cutter Name Role Phone Johnna De La Cruz MD Primary Care Provider + Johnna De La Cruz MD Unavailable [phone] Encounter Details Date Type Department Care Team (Late st Contact Info) Description 09/23/2019 Telephone [facility] [facility] [address] [place] [address] Johnna De La Cruz MD [address] [place] [address] Social History Tobacco Use Types Packs/Day Years Used Date Smoking Tobacco: Never PHQ-2 Answer Date Recorded PHQ-2 Score 4 06/28/2019 Comments No Sex and Gender Information Value Date Recorded Sex Assigned at Not on file Legal Sex Female 11:42 PM PHARMACEUTICAL COMPOUNDING SUPERVISOR Gender Identity Not on file Sexual [...] SHE HAS ANY FURTHER QUESTIONS OR CONCERNS. MACEUTICAL COMPOUNDING SUPERVISOR documented in this encounter Plan of Treatment Not on file documented as of this encounter Visit Diagnoses Not on filedocumented in this encounter Care Teams Fish Cutter Relationship Specialty Start Date End Date Johnna De La Cruz MD [address] [address] PCP - General Pediatrics 07/19/19 01/26/23 Johnna De La Cruz MD [address] [address] 07/19/19 documented as of this encounter
--- OUTSIDE RECORDS SUMMARY | 2024-08-28 02:57 | XMS_ITS | Encounter Summary ---
Author Organization [facility] Address [address] [place] [address] Phone Care Team Providers Care Facing End Trimmer Name Role Phone Johnna Tinjaero MD Primary Care Provider + Johnna Tinajero MD Unavailable [phone] Encounter Details Date Type Department Care Team (Late st Contact Info) Description 09/12/2019 Orders Only [facility] 2nd [place] [address] [place] [id number] Nehemiah Zhao MD [address] [place] [address] [place], [place] [id number] Abdominal pain, unspecified abdominal location (Primary Dx); Nausea Social History Tobacco Use Types Packs/Day Years Used Date Smoking Tobacco: Never PHQ-2 Answer Date Recorded PHQ-2 Score 4 06/28/2019 Comments No Sex and Gender Information Value Date Recorded Sex Assigned at Not on file Legal Sex Female 11:42 PM COP BREAKER Gender Identity Not on file Sexual Orientation Not on file documented as of this encounter Progress Notes * Nehemiah Zhao MD - 09/12/2019 12:44 PM CST Ped GI Procedure Checklist Patient Name: Nina Coyne Age: 19 y.o. Gender: female [facility] Ordering Provider: Nehemiah Zhao MD PCP: Johnna [...] starting on citalopram in May and prompted [facility] admission and imaging studies in July with edge kitter evaluation suspicion for ovarian cyst as contributor. [...] duodenal peptic ulcer disease Special procedures: None BREAKER documented in this encounter Plan of Treatment Not on file documented as of this encounter Visit Diagnoses Diagnosis Abdominal pain, unspecified abdominal location- Primary Nausea Nausea alone documented in this encounter Care Teams Facing End Trimmer Relationship Specialty Start Date End Date Johnna Tinajero MD [address] [address] PCP - General Pediatrics 07/19/19 01/26/23 Johnna Tinajero MD [address] [address] 07/19/19 documented as of this encounter
--- OUTSIDE RECORDS SUMMARY | 2024-08-28 02:57 | XMS_ITS | Encounter Summary ---
Author Organization [facility] Address [address] [place] [address] [address] [place] [address] Phone Care Team Providers Care Loss Prevention Representative Name Role Phone Jhonna Tinajero MD Primary Care Provider + Johnna Tinajero MD Unavailable [phone] Encounter Details Date Type Department Care Team (Late st Contact Info) Description 09/13/2019 Telephone [facility] [address] [facility] [address] [place] [address] Tete Ruvalcaba MD [address] [place] [address] [address] [place] [address] Social History Tobacco Use Types Packs/Day Years Used Date Smoking Tobacco: Never PHQ-2 Answer Date Recorded PHQ-2 Score 4 06/28/2019 Comments No Sex and Gender Information Value Date Recorded Sex Assigned at Not on file Legal Sex Female 11:42 PM LEASING PROPERTY MANAGER Gender Identity Not on file Sexual Orientation Not on file documented as of this encounter Miscellaneous Notes * Telephone Encounter - Madyson Roberts - 09/13/2019 8:31 AM CST Mom called concerned about Nina vomited 10 times since last night and decreased UOP. Advised: Go to ER. Call to [facility] and gave report. ING PROPERTY MANAGER documented in this encounter Plan of Treatment Not on file documented as of this encounter Visit Diagnoses Not on filedocumented in this encounter Care Teams Loss Prevention Representative Relationship Specialty Start Date End Date Johnan Tinajero MD [address] [address] PCP - General Pediatrics 07/19/19 01/26/23 Johnna Tinajero MD [address] [address] 07/19/19 documented as of this encounter
--- OUTSIDE RECORDS SUMMARY | 2024-08-28 02:57 | XMS_ITS | Encounter Summary ---
Author Organization [facility] Healthcare Address [address] [place] [address] Care Team Providers Care Cap Machine Operator Name Role Phone Johnna Tinajero MD Primary Care Provider + Johnna Tinajero MD Unavailable [phone] Reason for Visit * Reason Comments Vomiting Encounter Details Date Type Department Care Team (Late st Contact Info) Description 09/14/2019 10:10 AM PROPERTY MANAGEMENT INTERN - 09/14/2019 11:10 AM [facility] Surgery [facility] [place] [address] Klaudia Meneses MD [address] [facility] [address] [place] [address] PEDIATRIC - UPPER ENDOSCOPY with biopsies Surgery Details Date/Time Status Location OR Service Patient Class Case Class Case Type Trauma Case? 09/14/2019 10:10 AM Posted [facility] OPERATING ROOM OR [place] Gastroenterology Inpatient Urgent - 24 hours Panel [...] file Legal Sex Female 11:42 PM PROPERTY MANAGEMENT INTERN Gender Identity Not on file Sexual Orientation Not on file documented as of this encounter Last Filed Vital Signs Vital Sign Reading Time Taken Comments Blood Pressure 146/87 09/14/2019 10:57 AM PROPERTY MANAGEMENT INTERN Pulse 116 09/14/2019 10:57 AM PROPERTY MANAGEMENT INTERN Temperature 37.1 ??C (98.8 ??F) 09/14/2019 1 0:57 AM PROPERTY MANAGEMENT INTERN Respiratory Rate 24 09/14/2019 10:5 7 AM PROPERTY MANAGEMENT INTERN Oxygen Saturation 98% 09/14/2019 10: 57 AM PROPERTY MANAGEMENT INTERN Inhaled Oxygen Concentration - - Weight 99.4 kg (219 lb 2.2 oz) 09/13/2019 6:35 P M PROPERTY MANAGEMENT INTERN Height 161.5 cm (5' 3.58 ) 09/13/2019 6:35 PM CS T Body Mass Index 38.11 09/13/2019 6:35 PM PROPERTY MANAGEMENT INTERN Body Mass Index Percentile 98.76% 09/13/2019 6:3 5 PM PROPERTY MANAGEMENT INTERN Growth Chart: CDC (Girls, 2- 20 Years) documented in this encounter Discharge Summaries * Viktor Villagomez MD - 09/20/2019 11:16 AM CST Inpatient Discharge Summary BRIEF OVERVIEW Admitting Provider: Klaudia Meneses MD Discharge Provider: Macy Najera MD Primary Care Physician at Discharge: Johnna Tinajero MD [phone] Admission Date: 09/13/2019 Discharge Date: 09/20/2019 Admission Location: [facility] Chief Complaint: Persistent vomiting Primary Discharge [...] since improved however and she has seen AUTO HEATER MECHANIC in clinic who felt that the pain [...] Center 09/22/2019 1:15 PM Johnna Tinajero MD [facility] 10/05/2019 1:30 PM Florina Colby MD PD [facility] 2[facility] PD Contact Information for Follow-ups Johnna Tinajero MD Specialty: Pediatrics Relationship: PCP - General [address] [place] [address] Next Steps: Follow up Instructions: Appointment with PMD on September 22 @ 1:15 pm...... Cosigned by Macy Najera MD at 09/20/2019 7:55 PM PROPERTY MANAGEMENT INTERN ERTY MANAGEMENT INTERN ERTY MANAGEMENT INTERN ERTY MANAGEMENT INTERN Associated attestation - Macy Najera MD - 09/20/2019 7:55 PM PROPERTY MANAGEMENT INTERN I have seen and examined the patient [...] Macy Najera MD at 09/19/2019 12:21 PM PROPERTY MANAGEMENT INTERN ERTY MANAGEMENT INTERN ERTY MANAGEMENT INTERN Associated attestation - Macy Najera MD - 09/19/2019 12:21 PM PROPERTY MANAGEMENT INTERN I have seen and examined the patient [...] sinus rhythm with sinus arrhythmia with short [place] ??? Anxiety 07/20/2019 ??? Asthma ??? Nausea [...] Pediatric Diet Regular Diet effective now Question: ([facility]) Diet type Answer: Regular 09/15/19 0907 Care [...] on 09/13/19. ?? Will follow per policy. ERTY MANAGEMENT INTERN ERTY MANAGEMENT INTERN * Sol Tapia MD - 09/18/2019 12:24 [...] Macy Najera MD at 09/18/2019 2:38 PM PROPERTY MANAGEMENT INTERN ERTY MANAGEMENT INTERN ERTY MANAGEMENT INTERN Associated attestation - Macy Najera MD - 09/18/2019 2:38 PM PROPERTY MANAGEMENT INTERN I have seen and examined the patient [...] Macy Najera MD at 09/17/2019 9:09 PM PROPERTY MANAGEMENT INTERN ERTY MANAGEMENT INTERN ERTY MANAGEMENT INTERN Associated attestation - Macy Najera MD - 09/17/2019 9:09 PM PROPERTY MANAGEMENT INTERN I have seen and examined the patient [...] Macy Najera MD at 09/16/2019 9:19 PM PROPERTY MANAGEMENT INTERN ERTY MANAGEMENT INTERN ERTY MANAGEMENT INTERN Associated attestation - Macy Najera MD - 09/16/2019 9:19 PM PROPERTY MANAGEMENT INTERN I have seen and examined the patient [...] Klaudia Meneses MD at 09/15/2019 3:21 PM PROPERTY MANAGEMENT INTERN ERTY MANAGEMENT INTERN ERTY MANAGEMENT INTERN ERTY MANAGEMENT INTERN Associated attestation - Klaudia Meneses MD - 09/15/2019 3:21 PM PROPERTY MANAGEMENT INTERN I have seen and examined the patient [...] sinus rhythm with sinus arrhythmia with short [place] ??? Anxiety 07/20/2019 ??? Asthma ??? Nausea [...] (219 lb 2.2 oz) Total Protein DRI (BOW STAPLER/AI): 84.49 Protein DRI grams/kg/day: 0.85 Baseline Fluid [...] Pediatric Diet Regular Diet effective now Question: ([facility]) Diet type Answer: Regular 09/14/19 1156 Care [...] ?? Will follow per policy RD available [phone] ERTY MANAGEMENT INTERN * Viktor Villagomez MD - 09/14/2019 1:01 [...] Klaudia Meneses MD at 09/15/2019 3:26 PM PROPERTY MANAGEMENT INTERN ERTY MANAGEMENT INTERN ERTY MANAGEMENT INTERN Associated attestation - Klaudia Meneses MD - 09/15/2019 3:26 PM PROPERTY MANAGEMENT INTERN I have seen and examined the patient [...] since improved however and she has seen AUTO HEATER MECHANIC in clinic who felt that the pain [...] in 12th grade and plans to attend [employer] next year. She is active in [...] sinus rhythm with sinus arrhythmia with short [place] ??? Anxiety 07/20/2019 ??? Asthma ??? Nausea [...] marijuana use. - Admit to [facility] - [facility] at midnight for [...] Klaudia Meneses MD at 09/14/2019 10:05 PM PROPERTY MANAGEMENT INTERN ERTY MANAGEMENT INTERN ERTY MANAGEMENT INTERN Associated attestation - Klaudia Meneses MD - 09/14/2019 10:05 PM PROPERTY MANAGEMENT INTERN I have seen and examined the patient [...] (Doctor), Alicia Song RN (Nurse), Windy Harp, Roll Shop Supervisor (Roll Shop Supervisor), Basilia Clark CRNA (Marketing Programs Manager), Anabela Hawley M.D. (Marketing Programs Manager), Roma Martinez, Fellow (Fellow) Referring MD: Johnna [...] by the physician, the nurse and the elementary school registrar. The time out was done in the room prior to the start of the procedure. After I obtained informed consent, the scope was passed under direct vision. Throughout the procedure, the patient's blood pressure, pulse, and oxygen saturations were monitored continuously by anesthesia. The GIF [id number] #[id number] upper endoscope was introduced through the mouth, [...] 0 Note Initiated On: 09/14/2019 9:59 AM ERTY MANAGEMENT INTERN ERTY MANAGEMENT INTERN ERTY MANAGEMENT INTERN documented in this encounter Nursing Notes * Elpidio Mcintyre RN - 09/20/2019 1:50 PM CST Discharged 09/20/2019 at 1350 in the care of mother, patient ambulated off unit. ERTY MANAGEMENT INTERN documented in this encounter ED Notes * [...] sinus rhythm with sinus arrhythmia with short [place] ??? Anxiety 07/20/2019 ??? Asthma ??? Nausea [...] Rosette Camara MD at 09/14/2019 11:29 PM PROPERTY MANAGEMENT INTERN ERTY MANAGEMENT INTERN ERTY MANAGEMENT INTERN Associated attestation - Rosette Camara MD - 09/14/2019 11:29 PM PROPERTY MANAGEMENT INTERN I have supervised the care of the patient on 09/13/[address] Montoya. I agree with the findings and plan of care as documented in the resident's note. * Any Zuniga, GLENDA - 09/13/2019 11:19 AM CST Bed: ED1-22 Expected date: 09/13/19 Expected time: 8:25 AM Means of arrival: Car Comments: Any Zuniga RN 09/13/19 1119 ERTY MANAGEMENT INTERN * Jennifer Lorenzo RN - 09/13/2019 10:20 AM CST Vomiting since last night, about 12x. Last episode just now in triage. Patient with ongoing nausea x2 months. ERTY MANAGEMENT INTERN documented in this encounter Miscellaneous Notes * [...] Lili Villalpando MD at 09/22/2019 2:06 PM PROPERTY MANAGEMENT INTERN ERTY MANAGEMENT INTERN ERTY MANAGEMENT INTERN * Plan of Care - Yo, [place] [...] had limited PO intake throughout the night ERTY MANAGEMENT INTERN * Plan of Care - Nhi Ramirez [...] of discharge needs will improve Outcome: Progressing ERTY MANAGEMENT INTERN * Assessment & Plan Note - Viktor [...] - KUB to evaluate passage of contrast ERTY MANAGEMENT INTERN ERTY MANAGEMENT INTERN ERTY MANAGEMENT INTERN * Assessment & Plan Note - Viktor Villagomez MD - 09/19/2019 10:53 AM CSTAssociated Problem(s): Mild malnutrition (HCC) (Resolved 08/22/2020) 15 pound weight loss over several months due to chronic nausea and vomiting with resultant poor appetite. - Manage nausea symptoms - nutrition consult ERTY MANAGEMENT INTERN * Assessment & Plan Note - Viktor [...] for pain, avoid NSAIDS - Continue OCP ERTY MANAGEMENT INTERN ERTY MANAGEMENT INTERN * Subjective & Objective - Viktor Villagomez [...] 09/15/19 - Normal MRI of the brain. ERTY MANAGEMENT INTERN * Plan of Care - Bibiana Hernandez [...] dinner. Still poor fluid PO, on mIVF ERTY MANAGEMENT INTERN * Plan of Care - Nina Saleh [...] had improved PO intake and improved nausea. ERTY MANAGEMENT INTERN * Assessment & Plan Note - Sol Tapia MD - 09/18/2019 12:24 PM PROPERTY MANAGEMENT INTERN Associated Problem(s): Mild malnutrition (HCC) (Resolved 08/22/2020) 15 pound weight loss over several months due to chronic nausea and vomiting with resultant poor appetite. - Manage nausea symptoms - nutrition consult ERTY MANAGEMENT INTERN * Assessment & Plan Note - Sol Tapia MD - 09/18/2019 12:17 PM PROPERTY MANAGEMENT INTERN Associated Problem(s): Chronic nausea 2 month history [...] if contrast cleared, gastric emptying if clear. ERTY MANAGEMENT INTERN * Assessment & Plan Note - Sol Tapia MD - 09/18/2019 12:17 PM PROPERTY MANAGEMENT INTERN Associated Problem(s): Abdominal pain Right lower quadrant [...] for pain, avoid NSAIDS - Continue OCP ERTY MANAGEMENT INTERN * Subjective & Objective - Sol Tapia MD - 09/18/2019 12:15 PM PROPERTY MANAGEMENT INTERN Pediatric Daily Progress Subjective Chief complaint of [...] 09/15/19 - Normal MRI of the brain. ERTY MANAGEMENT INTERN * Medical Student - Jaswant Pastrana - [...] Nehal Salgado MD at 09/18/2019 11:14 AM PROPERTY MANAGEMENT INTERN ERTY MANAGEMENT INTERN ERTY MANAGEMENT INTERN * Plan of Care - Bibiana Hernandez [...] episode of emesis after eating. Poor PO ERTY MANAGEMENT INTERN * Plan of Care - Nina Saleh [...] nausea Summary: Nausea and intake mildly improved. ERTY MANAGEMENT INTERN * Assessment & Plan Note - Viktor [...] nausea - Gastric emptying study next week ERTY MANAGEMENT INTERN * Assessment & Plan Note - Viktor Villagomez MD - 09/17/2019 3:13 PM CSTAssociated Problem(s): Mild malnutrition (HCC) (Resolved 08/22/2020) 15 pound weight loss over several months due to chronic nausea and vomiting with resultant poor appetite. - Manage nausea symptoms - nutrition consult - Consider cyproheptadine ERTY MANAGEMENT INTERN * Assessment & Plan Note - Viktor [...] for pain, avoid NSAIDS - Continue OCP ERTY MANAGEMENT INTERN * Subjective & Objective - Dahlia, Viktor [...] 09/15/19 - Normal MRI of the brain. ERTY MANAGEMENT INTERN * Medical Student - Jaswant Pastrana - [...] Nehal Salgado MD at 09/17/2019 11:49 AM PROPERTY MANAGEMENT INTERN ERTY MANAGEMENT INTERN ERTY MANAGEMENT INTERN * Plan of Care - Tila Harmon [...] discharge needs will improve Outcome: Progressing Summary: ERTY MANAGEMENT INTERN * Plan of Care - Nina Saleh [...] Clinical Goals for the Shift: nausea management, ERTY MANAGEMENT INTERN * Assessment & Plan Note - Viktor [...] nausea - Gastric emptying study next week ERTY MANAGEMENT INTERN ERTY MANAGEMENT INTERN * Assessment & Plan Note - Viktor Villagomez MD - 09/16/2019 11:42 AM CSTAssociated Problem(s): Mild malnutrition (HCC) (Resolved 08/22/2020) 15 pound weight loss over several months due to chronic nausea and vomiting with resultant poor appetite. - Manage nausea symptoms - nutrition consult - Consider cyproheptadine ERTY MANAGEMENT INTERN * Assessment & Plan Note - Viktor [...] for pain, avoid NSAIDS - Continue OCP ERTY MANAGEMENT INTERN * Subjective & Objective - Viktor Villagomez [...] 09/15/19 - Normal MRI of the brain. ERTY MANAGEMENT INTERN * Medical Student - Jaswant Pastrana - [...] Nehal Salgado MD at 09/16/2019 11:19 AM PROPERTY MANAGEMENT INTERN ERTY MANAGEMENT INTERN ERTY MANAGEMENT INTERN * Plan of Care - Jaswant Phan RN - 09/15/2019 9:49 PM CST Goals: Clinical Goals for the Shift: Zofran for nausea, pain control, monitor i/o Summary: Reviewed overnight plan of care with patient, mother. Encouraged po, nausea control. ERTY MANAGEMENT INTERN * Plan of Care - Elpidio Mcintyre [...] the pain. Nina remains free of falls. ERTY MANAGEMENT INTERN * Assessment & Plan Note - Viktor [...] lexapro vs start cyproheptadine - Zofran prn ERTY MANAGEMENT INTERN * Assessment & Plan Note - Viktor Villagomez MD - 09/15/2019 2:52 PM CSTAssociated Problem(s): Mild malnutrition (HCC) (Resolved 08/22/2020) 15 pound weight loss over several months due to chronic nausea and vomiting with resultant poor appetite. - Manage nausea symptoms - nutrition consult ERTY MANAGEMENT INTERN * Assessment & Plan Note - Viktor [...] for pain, avoid NSAIDS - Continue OCP ERTY MANAGEMENT INTERN * Subjective & Objective - Viktor Villagomez [...] Imaging: Upper GI series 09/15/19 - normal ERTY MANAGEMENT INTERN * Medical Student - Jaswant Pastrana - [...] Nehal Salgado MD at 09/15/2019 11:46 AM PROPERTY MANAGEMENT INTERN ERTY MANAGEMENT INTERN ERTY MANAGEMENT INTERN ERTY MANAGEMENT INTERN * Plan of Care - Lety Thompson [...] series today. Pain got up to 5/10. ERTY MANAGEMENT INTERN * Plan of Care - Elpidio Mcintyre [...] Tolerated scope, poor PO intake after scope. ERTY MANAGEMENT INTERN * Assessment & Plan Note - Viktor [...] ECG for prolonged zofran use - UDS ERTY MANAGEMENT INTERN * Assessment & Plan Note - Viktor [...] for pain, avoid NSAIDS - Continue OCP ERTY MANAGEMENT INTERN * Subjective & Objective - Viktor Villagomez [...] POC Negative Leukocyte esterase, ur, POC Negative ERTY MANAGEMENT INTERN * Perioperative Nursing Note - Shawna Monae RN - 09/14/2019 11:50 AM PROPERTY MANAGEMENT INTERN Patient awake and drinking Sprite on the transport to the [address] unit. No complaints of noted at this time. Oxygen saturations greater than 94% on RA with no distress noted. Family present with patient. Patient able to transfer self from stretcher to her bed without any difficulties. No questions orconcerns of noted at this time. Report given to GLENDA Magallanes patient's floor RN. ERTY MANAGEMENT INTERN * Hospital Course - Jaswant Pastrana - [...] with GI follow up in 2-3 weeks. ERTY MANAGEMENT INTERN ERTY MANAGEMENT INTERN ERTY MANAGEMENT INTERN ERTY MANAGEMENT INTERN ERTY MANAGEMENT INTERN ERTY MANAGEMENT INTERN ERTY MANAGEMENT INTERN ERTY MANAGEMENT INTERN ERTY MANAGEMENT INTERN ERTY MANAGEMENT INTERN * Plan of Care - Lety Thompson [...] x1. NPO since midnight. Denies any pain. ERTY MANAGEMENT INTERN * Assessment & Plan Note - Viktor [...] midnight for EGD 09/14 - Zofran prn ERTY MANAGEMENT INTERN ERTY MANAGEMENT INTERN * Assessment & Plan Note - Viktor [...] for pain, avoid NSAIDS - Continue OCP ERTY MANAGEMENT INTERN ERTY MANAGEMENT INTERN * Medical Student - Jaswant Pastrana - [...] and abdominal pain, latricia was admitted to [facility] from 07/19-07/23 and was subsequently diagnosed with slow leaking ruptured ovarian cyst. During admission, extensive workup was done (normal pelvic/ovaries US, normal gallbladder US, labs wnl), including CT abdomen/pelvis w/ contrast (due to continued pain and rebound tenderness on exam) which showed right ovarian corpus lutealcyst w/ small amount of fluid in the cul-de-sac which ELECTRO OPTICS ENGINEER thought may explain her pain. Patient was [...] patient also followed up with OBGYN at [place] (Dr. Crum) who confirmed that the ovarian [...] function because GI doc was concerned for topography technician effects. During this time patient reports fatigue [...] Ruptured Ovarian Cyst - resolved at last ELECTRO OPTICS ENGINEER visit, on OCP (norgestin) for prevention of [...] She is in 12th grade and attending [employer] next year. She has friends she likes [...] Nehal Salgado MD at 09/15/2019 11:01 AM PROPERTY MANAGEMENT INTERN ERTY MANAGEMENT INTERN ERTY MANAGEMENT INTERN ERTY MANAGEMENT INTERN * Plan of Care - Haily Becker RN - 09/13/2019 6:44 PM CST Goals: Have decreased nausea Summary: Problem: Bowel/Gastric: Goal: Ability to maintain baseline age appropriate bowel function will improve Outcome: Not Progressing Problem: Fluid Volume: Goal: Ability to maintain a balanced intake and output will improve Outcome: Not Progressing ERTY MANAGEMENT INTERN * Subjective & Objective - Viktor Villagomez [...] since improved however and she has seen AUTO HEATER MECHANIC in clinic who felt that the pain [...] in 12th grade and plans to attend [employer] next year. She is active in [...] sinus rhythm with sinus arrhythmia with short [place] ??? Anxiety 07/20/2019 ??? Asthma ??? Nausea [...] and Ovaries R/o torsion 09/13/19 - Normal ERTY MANAGEMENT INTERN ERTY MANAGEMENT INTERN ERTY MANAGEMENT INTERN * ED Re-evaluation Note - Berny Montoya MD - 09/13/2019 1:50 PM PROPERTY MANAGEMENT INTERN ED Re-evaluation I have reviewed and confirmed the history and personally examined the patient. I discussed the findings, interventions, and diagnostic testing with the resident. I agree with the findings as presented without exceptions in our respective documentation. Berny Montoya MD 10/15/19 0937 ERTY MANAGEMENT INTERN * ED Pre-Arrival Note - Any Zuniga, GLENDA - 09/13/2019 8:25 AM CST Pre-Arrival Note Pt vomiting since last night x10; no uop > 6hrs; coming in for dehydration Any Zuniga, GLENDA ERTY MANAGEMENT INTERN documented in this encounter Plan of Treatment Not on file documented as of this encounter Procedures Procedure Name Priority Date/Time Associated Diagnosis Comments XR KUB IP Routine 09/19/2019 12:07 PM PROPERTY MANAGEMENT INTERN MRI BRAIN W WO CONTRAST GOBRAIN IP Routine 09/15/2019 2:38 PM PROPERTY MANAGEMENT INTERN FL UPPER GI SERIES, SINGLE CONTRAST IP Routine 09/15/2019 8:47 AM PROPERTY MANAGEMENT INTERN DRUG SCREEN, URINE Routine 09/14/2019 2:20 PM PROPERTY MANAGEMENT INTERN ECG 12-LEAD Routine 09/14/2019 12:39 PM PROPERTY MANAGEMENT INTERN H. PYLORI UREASE SCREEN (MAGALIE TEST) Routine 09/14/2019 11:03 AM PROPERTY MANAGEMENT INTERN ESOPHAGOGASTRODUODENOSCOPY BIOPSY 09/14/2019 10:18 AM PROPERTY MANAGEMENT INTERN Abdominal pain, unspecified abdominal location Nausea SURGICAL PATHOLOGY Routine 09/14/2019 10:05 AM PROPERTY MANAGEMENT INTERN Abdominal pain, unspecified abdominal location Nausea EGD 09/14/2019 9:59 AM PROPERTY MANAGEMENT INTERN POCT URINALYSIS (CLINITEK) Routine 09/13 2:11 PM PROPERTY MANAGEMENT INTERN HCG, URINE, QUALITATIVE STAT 09/13/19 2:07 PM PROPERTY MANAGEMENT INTERN US PELVIS AND OVARIAN DOPPLE R LIMITED (C) ED 09/13/2019 1:20 PM PROPERTY MANAGEMENT INTERN documented in this encounter Results * XR Kub (09/19/2019 12:07 PM PROPERTY MANAGEMENT INTERN) Anatomical Region Laterality Modality Body, Abdomen N/A Computed Radiogr aphy 09/19/2019 12:1 4 PM PROPERTY MANAGEMENT INTERN Impressions 09/19/2019 12:14 PM PROPERTY MANAGEMENT INTERN Residual barium is seen within the transverse and descending colon. There is no evidence of obstruction. Electronically signed by: Sherly To M.D. Narrative 09/19/2019 12:14 PM PROPERTY MANAGEMENT INTERN EXAMINATION: ??XR KUB HISTORY: ??Evaluate barium clearance [...] W WO Contrast GoBrain (09/15/2019 2:38 PM PROPERTY MANAGEMENT INTERN) Anatomical Region Laterality Modality Head and Neck N/A Magnetic Resonan ce 09/15/2019 3:36 PM PROPERTY MANAGEMENT INTERN Impressions 09/15/2019 4:28 PM PROPERTY MANAGEMENT INTERN Normal MRI of the brain. Dictated by: Jeff Goldberg M.D. The radiology attending physician has personally reviewed this study, and had reviewed and/or edited this written report and agrees with it. Electronically signed by: Igor Mayorga M.D. Narrative 09/15/2019 4:28 PM PROPERTY MANAGEMENT INTERN EXAMINATION: Magnetic resonance imaging (MRI) of the [...] GI Series, Single Contrast (09/15/2019 8:47 AM PROPERTY MANAGEMENT INTERN) Anatomical Region Laterality Modality Body N/A Computed Radiogr aphy 09/15/2019 8:57 AM PROPERTY MANAGEMENT INTERN Impressions 09/15/2019 8:58 AM PROPERTY MANAGEMENT INTERN Normal. Dictated by: Sancho Bailey M.D. The radiology attending physician has personally reviewed this study, and had reviewed and/or edited this written report and agrees with it. Electronically signed by: Kayleen Deleon M.D. Narrative 09/15/2019 8:58 AM PROPERTY MANAGEMENT INTERN EXAMINATION: ??FL UPPER GI SERIES, SINGLE CONTRAST HISTORY: ??19-year-old girl with persistent nausea/vomiting COMPARISON: ??None. ??Correlation with CT abdomen and pelvis 07/21/2019. FINDINGS: ??The initial administrative liaison image is unremarkable. The child drank thin [...] abdomen and pelvis 07/21/2019. FINDINGS: The initial administrative liaison image is unremarkable. The child drank thin [...] by: Kayleen Deleon M.D. Klaudia Meneses MD [facility] FLUOROSCOPY PROCEDURES Final Result * (ABNORMAL) Drug screen, urine (09/14/2019 2:20 PM PROPERTY MANAGEMENT INTERN) [facility] Drug screen, ur Positive(A) [facility] Comment: The following compounds were detected: ?? Fentanyl, Repeated and verified. Final Touch Up Painter review to follow. Interpretive Data This test detects the presence of approximately 50 substances using LC-tandem mass spectrometry. For a list of specific compounds and detection limits refer to the Lab Test Guide Book. While this technique is highly specific, false-positive and false-negative findings may occur in very rare circumstances. Contact the Final Touch Up Painter environmental health sanitarian ([phone]) for consultation if needed. This test was developed and its performance characteristics determined by [facility]. It has not been cleared or approved by the U.S. Food and Drug Administration. Current interpretive data was last revised 2016. Director Review Verified [facility] Comment:Upon Medical Directo r review, no additional compounds were detected. Urine 09/14/2019 2:20 PM PROPERTY MANAGEMENT INTERN 09/14/2019 2:25 PM PROPERTY MANAGEMENT INTERN Klaudia Meneses MD LAB URINE ORDERABLES Final Result Performing Organization Address [facility] Co de Phone Number [facility] Department [place] [address] * ECG 12 lead (09/14/2019 12:39 PM PROPERTY MANAGEMENT INTERN) Ventricular Rate EKG/Min 77 BPM [facility] Atrial Rate 77 BPM [facility] [place]-Interval (MSEC) 142 ms [facility] QRS-Interval (MSEC) 74 ms [facility] QT-Interval (MSEC) 378 ms [facility] QTc 440 ms [facility] P [place] 38 degrees [facility] R [place] 4 degrees [facility] T [place] 9 degrees [facility] Diagnosis Normal sinus rhythm Normal ECG When compared with ECG of 25-AUG-2019 12:24, No significant change was found Confirmed by MD NISHA, [facility] ([id number]) on 09/14/2019 1:40:56 PM [facility] 09/14/2019 12:3 9 PM PROPERTY MANAGEMENT INTERN 09/14/2019 1:40 PM PROPERTY MANAGEMENT INTERN Klaudia Meneses MD ECG ORDERABLES Final Resul t Performing Organization Address [facility] Co de Phone Number [facility] * H. pylori urease screen (MAGALIE test) Tissue Gastric (09/14/2019 11:03 AM PROPERTY MANAGEMENT INTERN) H. pylori, rapid (MAGALIE) Negative [facility] [...] on 19. Tissue (Gastric) 09/14/2019 11:03 AM PROPERTY MANAGEMENT INTERN 09/14/2019 11:12 AM PROPERTY MANAGEMENT INTERN Klaudia Meneses MD LAB MICROBIOLOGY - GENERAL ORDERABLES Final Result [facility] [place] [address] * Surgical pathology (09/14/2019 10:05 AM PROPERTY MANAGEMENT INTERN) Tissue (Duodenum, Biopsy) 09/14/2019 10:05 AM PROPERTY MANAGEMENT INTERN Tissue (Antrum and/or Body) 09/14/2019 10:05 AM PROPERTY MANAGEMENT INTERN Tissue (Esophageal biopsy) 09/14/2019 10:05 AM PROPERTY MANAGEMENT INTERN Narrative PATHOLOGY [facility] - 09/15/2019 11:17 AM PROPERTY MANAGEMENT INTERN EPIC results best viewed via link to PDF [facility] [place] [address] [facility] FINAL WITH ADDENDUM Patient Name: ?? NINA COYNE Gender: ??F : ??2000 (Age: 19) Address: ??[address] [place] [id number] Hospital #: ??[id number] Taken:09/14/2019 Received:09/14/2019 Reported: 09/15/2019 Patient Type: [facility] Inpatient ?? Service: Gastro Location: [facility] ??[address] Physician(s): ??Klaudia Meneses M.D. Johnna Tinajero M.D. [...] determined by the Surgical Pathology Department at [facility] as part of an ongoing quality consultant program and in compliance with federally [...] determined by the Surgical Pathology Department of [facility]. ??It has not been cleared or approved by the U. S. Food and Drug Administration. IMAGES AND SCANNED DOCUMENTS, IF INCLUDED, ONLY VIEWABLE IN PDF VERSION OF REPORT Klaudia Meneses MD LAB PATHOLOGY ORDERABLES Fi nal Result PATHOLOGY [facility] [phone] * EGD (09/14/2019 9:59 AM PROPERTY MANAGEMENT INTERN) Anatomical Region Laterality Modality Other Narrative Procedure Note Klaudia Meneses MD - 09/14/2019 9:59 AM CST Patient Name: Nina Coyne Procedure Date: 09/14/2019 9:59 AM Date of : 2000 Admit Type: Inpatient Age: 19 Gender: Female Attending MD: Klaudia Meneses M.D. Procedure: Pediatric Upper GI Endoscopy Providers: Klaudia Meneses M.D. (Doctor), Alicia Song RN (Nurse), Marianna Harp, Roll Shop Supervisor (Roll Shop Supervisor), ErinL. Amber CRNA (Marketing Programs Manager), Anabela Hawley M.D. (Marketing Programs Manager), Roma Martinez, Fellow (Fellow) Referring MD: Johnna [...] by the physician, the nurse and the elementary school registrar. The time out was done inthe room prior to the start of the procedure. After I obtained informed consent, the scope was passed under direct vision. Throughout the procedure, the patient's blood pressure, pulse, and oxygensaturations were monitored continuously by anesthesia. The GIF [id number] #[id number] endoscope was introduced through the mouth, and [...] (ABNORMAL) POCT urinalysis (Clinitek) (09/13/2019 2:11 PM PROPERTY MANAGEMENT INTERN) Color, ur, POC Yellow [facility] Clarity, [...] Negative [facility] Urine 09/13/2019 2:11 PM PROPERTY MANAGEMENT INTERN 09/13/2019 2:11 PM PROPERTY MANAGEMENT INTERN Berny Montoya MD LAB POCT ORDERABLES - TATYANA CE Final Result Performing Organization Address [facility] Co de Phone Number [facility] [place] [address] * hCG, urine, qualitative (09/13/2019 2:07 PM PROPERTY MANAGEMENT INTERN) HCG, ur Negative Negative [facility] Urine 09/13/2019 2:07 PM PROPERTY MANAGEMENT INTERN 09/13/2019 2:17 PM PROPERTY MANAGEMENT INTERN Berny Montoya MD LAB URINE ORDERABLES Final Result Performing Organization Address [facility] [place] [address] * US Pelvis and Ovarian Doppler Limited (R/O Torsion in a pelvis) (09/13/2019 1:20 PM PROPERTY MANAGEMENT INTERN) Anatomical Region Laterality Modality Pelvis N/A Ultrasound 09/13/2019 1:25 PM PROPERTY MANAGEMENT INTERN Impressions 09/13/2019 2:34 PM PROPERTY MANAGEMENT INTERN Normal. Dictated by: Kunal Hdez M.D. , PHD The radiology attending physician has personally reviewed this study, and had reviewed and/or edited this written report and agrees with it. Electronically signed by: Sherly To M.D. Narrative 09/13/2019 2:34 PM PROPERTY MANAGEMENT INTERN EXAMINATION: ??US PELVIS AND OVARIAN DOPPLER LIMITED [...] Indications: Fever, PainIndications:Fever,Pain Given 09/15/2019 10:24 PM PROPERTY MANAGEMENT INTERN 650 mg Given 09/15/2019 4:27 PM PROPERTY MANAGEMENT INTERN 650 mg Given 09/14/2019 12:04 PM PROPERTY MANAGEMENT INTERN 650 mg fluticasone furoate-vilanterol (BREO ELLIPTA) 100-25 mcg/dose inhaler 1 puff 1 puff, inhalation, Daily, First dose on Thu09/13/19 at 2100, Drug Name: fluticasone furoate-vilanterol (Breo Ellipta) 100-25 mcg/dose diskus, Form: inhaler, Length of Therapy: Indefinite, How soon needed? (normally 72 hrs needed to procure): 0-24 hrs, Reason for Non-Formulary: home med not on formulary Given 09/19/2019 8:02 PM PROPERTY MANAGEMENT INTERN 1 puff Given 09/18/2019 8:09 PM PROPERTY MANAGEMENT INTERN 1 puff Given 09/17/2019 8:00 PM PROPERTY MANAGEMENT INTERN 1 puff lansoprazole (PREVACID) capsule 15 mg 15 mg, oral, 2 times daily, First dose on Thu09/14/19 at 1245, Do not crush, chew, cut, dissolve, open or otherwise manipulate tablet/capsule., Indications: Treatment of Non-Bleeding Gastric DisorderIndications:Treatment of Non-Bleeding Gastric Disorder Given 09/20/2019 8:50 AM PROPERTY MANAGEMENT INTERN 15 mg Given 09/19/2019 8:02 PM PROPERTY MANAGEMENT INTERN 15 mg Given 09/19/2019 9:46 AM PROPERTY MANAGEMENT INTERN 15 mg lidocaine 1% buffered injection 0.1 mL 0.1 mL, subcutaneous, As needed, other, IV insertion, Starting on Thu09/18/19 at 202, Maximum daily dose 0.1 mL/kg Administer immediately prior to procedure. Given 09/18/2019 9:46 PM PROPERTY MANAGEMENT INTERN 0.1 mL Other (Comment) norgestimate-ethinyl estradiol (ORTHO [...] not on formulary Given 09/19/2019 8:02 PM PROPERTY MANAGEMENT INTERN 1 tablet Given 09/18/2019 8:09 PM PROPERTY MANAGEMENT INTERN 1 tablet Given 09/17/2019 8:00 PM PROPERTY MANAGEMENT INTERN 1 tablet nortriptyline (PAMELOR) capsule 10 mg 10 mg, oral, 2 times daily, First dose (after last modification) on Thu09/19/19 at 1430 Given 09/19/2019 8:03 PM PROPERTY MANAGEMENT INTERN 10 mg Given 09/19/2019 2:56 PM PROPERTY MANAGEMENT INTERN 10 mg polyethylene glycol (MIRALAX) packet 17 g 17 g, oral, Daily, First dose on Thu09/19/19 at 0930, Mix 17 grams in 8 ounces of fluid, Indications: constipationIndications:constipation Given 09/20/2019 8:50 AM PROPERTY MANAGEMENT INTERN 17 g Given 09/19/2019 9:47 AM PROPERTY MANAGEMENT INTERN 17 g documented in this encounter Discontinued [...] Recently Administered Medications Times are shown in PROPERTY MANAGEMENT INTERN. Scheduled Medication Order 09/18/2019 09/19/2019 09/20/2019 escitalopram [...] 09/13/2019 documented in this encounter Care Teams Cap Machine Operator Relationship Specialty Start Date End Date Johnna Tinajero MD [address] [address] PCP - General Pediatrics 07/19/19 01/26/23 Johnna Tinajero MD [address] [address] 07/19/19 documented as of this encounter
--- OUTSIDE RECORDS SUMMARY | 2024-08-28 02:57 | XMS_ITS | Encounter Summary ---
Author Organization [facility] Address [address] [place] [address] Phone Care Team Providers Care Agricultural Specialist Name Role Phone Johnna Tinajero MD Primary Care Provider + Johnna Tinajero MD Unavailable [phone] Reason for Visit * Reason Onset Date Comments EGD 09/14/2019 Encounter Details Date Type Department Care Team (Late st Contact Info) Description 09/14/2019 Documentation [facility] Pediatric Gastroenterology [facility] 2nd [place] [address] [place] [id number] Nehemiah Zhao MD [address] [place] [address] [place] [address] EGD Social History Tobacco Use Types Packs/Day Years Used Date Smoking Tobacco: Never PHQ-2 Answer Date Recorded PHQ-2 Score 4 06/28/2019 Comments No Sex and Gender Information Value Date Recorded Sex Assigned at Not on file Legal Sex Female 11:42 PM CUSTOMER CONSULTANT Gender Identity Not on file Sexual [...] appointment: As already scheduled and listed above. OMER CONSULTANT * Nehemiah Zhao MD - 09/14/2019 11:59 PM CST Please call them to review that H. Pylori testing (from in-pt EGD) is negative, get update on status, and advise they keep scheduled f/u and call if urgent questions. OMER CONSULTANT * Basilia Chambers RN - 09/14/2019 11:59 PM CST Called mom Reviewed scope results, Nina stopped vomiting since dc from [facility] Giving the nortriptyline time to work RPV with SIDNEY pending for 10/05 Mom to call with any concerns prior to this OMER CONSULTANT documented in this encounter Plan of Treatment Not on file documented as of this encounter Visit Diagnoses Not on filedocumented in this encounter Care Teams Agricultural Specialist Relationship Specialty Start Date End Date Johnna Tinajero MD [address] [address] PCP - General Pediatrics 07/19/19 01/26/23 Johnna Tinajero MD [address] [address] 07/19/19 documented as of this encounter
--- OUTSIDE RECORDS SUMMARY | 2024-08-28 02:57 | XMS_ITS | Encounter Summary ---
Author Organization [facility] Address [address] [place] [address] Phone Care Team Providers Care Agriculture Department Chair Name Role Phone Johnna Tinajero MD Primary Care Provider + Johnna Tinajero MD Unavailable [phone] Encounter Details Date Type Department Care Team (Late st Contact Info) Description 08/18/2019 Orders Only [facility] Pediatric Gastroenterology [address] [facility] [address] [place] [address] Nehemiah Zhao MD [address] [facility] [address] [place] [address] Nausea (Primary Dx); Right lower quadrant abdominal pain Social History Tobacco Use Types Packs/Day Years Used Date Smoking Tobacco: Never PHQ-2 Answer Date Recorded PHQ-2 Score 4 06/28/2019 Comments No Sex and Gender Information Value Date Recorded Sex Assigned at Not on file Legal Sex Female 11:42 PM DURAL MECHANIC Gender Identity Not on file Sexual [...] WITH AUTO DIFFERENTIAL Routine 08/22/2019 9:46 AM DURAL MECHANIC Nausea Right lower quadrant abdominal pain documented in this encounter Results * CBC with auto differential (08/22/2019 9:46 AM DURAL MECHANIC) WBC 6.6 4.5 - 13.0 Thousand/u L [...] [place] Blood specimen (specimen) 08/22/2019 9:46 AM DURAL MECHANIC 08/22/2019 9:47 AM DURAL MECHANIC Narrative [facility] - 08/23/2019 1:19 AM DURAL MECHANIC PT AND FATHER VARIFIED THIS IS THE CORRECT ORDER FASTING:YES FASTING: YES Resulting Agency Comment Performing Organization Information: ?Site ID: [id number] ?Name: [facility] ?Address: [address] [address] ?Director: Viktor Landry D.O., MPH us Nehemiah [...] documented as of this encounter Care Teams Agriculture Department Chair Relationship Specialty Start Date End Date Johnna Tinajero MD [address] [address] PCP - General Pediatrics 07/19/19 01/26/23 Johnna Tinajero MD [address] [address] 07/19/19 documented as of this encounter
--- OUTSIDE RECORDS SUMMARY | 2024-08-28 02:57 | XMS_ITS | Encounter Summary ---
Author Organization [facility] Address [address] [place] [address] [address] [place] [address] Phone Care Team Providers Care Impregnating Machine Operator Name Role Phone Johnna Tinajero MD Primary Care Provider + Johnna Tinajero MD Unavailable [phone] Encounter Details Date Type Department Care Team (Late st Contact Info) Description 07/26/2019 Telephone [facility] [facility] [address] [place] [address] Jhonna Tinajero MD [address] [place] [address] Social History Tobacco Use Types Packs/Day Years Used Date Smoking Tobacco: Never PHQ-2 Answer Date Recorded PHQ-2 Score 4 06/28/2019 Comments No Sex and Gender Information Value Date Recorded Sex Assigned at Not on file Legal Sex Female 11:42 PM SCHOOL OFFICE ASSISTANT Gender Identity Not on file Sexual Orientation Not on file documented as of this encounter Miscellaneous Notes * Telephone Encounter - Basilia Dillard RN - 07/26/2019 4:53 PM SCHOOL OFFICE ASSISTANT PC from mom, Nina was able to [...] clinic. Mom agrees, will CB as needed. OL OFFICE ASSISTANT documented in this encounter Plan of Treatment Not on file documented as of this encounter Visit Diagnoses Not on filedocumented in this encounter Care Teams Impregnating Machine Operator Relationship Specialty Start Date End Date Johnna Tinajero MD [address] [address] PCP - General Pediatrics 07/19/19 01/26/23 Johnna Tinajero MD [address] [address] 07/19/19 documented as of this encounter
--- OUTSIDE RECORDS SUMMARY | 2024-08-28 02:57 | XMS_ITS | Encounter Summary ---
Author Organization [facility] Address [address] [place] [address] Phone Care Team Providers Care Back Shoe Operator Name Role Phone Johnna Tinajero MD Primary Care Provider + Johnna Tinajero MD Unavailable [phone] Reason for Visit * Reason Comments Follow-up CYST AND ABDOMINAL P AIN Encounter Details Date Type Department Care Team (Late st Contact Info) Description 08/02/2019 1:45 PM YARN MAN Office Visit [facility] [address] [facility] [address] [place] [address] Johnna Tinajero MD [address] [place] [address] Nausea (Primary Dx); Acute abdominal pain Social History Tobacco Use Types Packs/Day Years Used Date Smoking Tobacco: Never PHQ-2 Answer Date Recorded PHQ-2 Score 4 06/28/2019 Comments No Sex and Gender Information Value Date Recorded Sex Assigned at Not on file Legal Sex Female 11:42 PM YARN MAN Gender Identity Not on file Sexual Orientation Not on file documented as of this encounter Last Filed Vital Signs Vital Sign Reading Time Taken Comments Blood Pressure 128/80 08/02/2019 1:51 PM YARN MAN Pulse - - Temperature 36.7 ??C (98 ??F) 08/02/2019 1:51 PM YARN MAN Respiratory Rate - - Oxygen Saturation - - Inhaled Oxygen Concentration - - Weight 103.5 kg (228 lb 3.2 oz) 08/02/2019 1:51 PM YARN MAN Height - - Body Mass Index - [...] etiology is still unclear to me. Keep dining room attendant cafeteria appt 08/16. Parent/patient instructed to call with concerns, if not improving in 7 days or new symptoms/problems develop. Johnna Tinajero MD MAN documented in this encounter Miscellaneous Notes * Addendum Note - Aileen Camargo - 08/02/2019 1:45 PM CSTAddended by: AILEEN CAMARGO on: 08/02/2019 04:10 PM Modules accepted: Orders MAN documented in this encounter Plan of Treatment Not on file documented as of this encounter Procedures Procedure Name Priority Date/Time Associated Diagnosis Comments POCT URINALYSIS NON AUTO Routine 08/02/2019 4:09 PM YARN MAN Acute abdominal pain documented in this encounter Results * (ABNORMAL) POCT URINALYSIS NON AUTO (08/02/2019 4:09 PM YARN MAN) Color, Urine, POC Lupe Clarity, ur, POC Clear Clear Glucose, ur, POC Negative Negative mg/dL Bilirubin, ur, POC Negative Negative, Small, Moderate, Large Ketones, ur, POC Negative Negative Specific Marland, POC 1.030 1.005 - 1.030 Blood, ur, POC Negative Negative pH, ur, POC 5.0 5.0 - 8.0 Protein, ur, POC Trace(A) Negative Urobilinogen, Urine, POC Comment:NORMAL Leukocytes, ur, POC Negative Negative Nitrite, ur, POC Negative Negative Appearance, fld Clear Clear Urine, clean voided 08/02/2019 4:09 PM YARN MAN Result [facility] Johnna Tinajero MD POINT OF CARE [...] documented as of this encounter Care Teams Back Shoe Operator Relationship Specialty Start Date End Date Johnna Tinajero MD [address] [address] PCP - General Pediatrics 07/19/19 01/26/23 Johnna Tinajero MD [address] [address] 07/19/19 documented as of this encounter
--- OUTSIDE RECORDS SUMMARY | 2024-08-28 02:57 | XMS_ITS | Encounter Summary ---
Author Organization [facility] Address [address] [place] [address] Phone Care Team Providers Care Digital Marketing Manager Name Role Phone Johnna Tinajero MD Primary Care Provider + Johnna Tinajero MD Unavailable [phone] Reason for Visit * Reason Comments Abdominal Pain Encounter Details Date Type Department Care Team (Late st Contact Info) Description 08/11/2019 11:30 AM OUTSIDE PHYSICAL DAMAGE APPRAISER Office Visit [facility] [address] [facility] [address] [place] [address] Johnna Tinajero MD [address] [place] [address] Nausea (Primary Dx); Fatigue, unspecified type Social History Tobacco Use Types Packs/Day Years Used Date Smoking Tobacco: Never PHQ-2 Answer Date Recorded PHQ-2 Score 4 06/28/2019 Comments No Sex and Gender Information Value Date Recorded Sex Assigned at Not on file Legal Sex Female 11:42 PM OUTSIDE PHYSICAL DAMAGE APPRAISER Gender Identity Not on file Sexual Orientation Not on file documented as of this encounter Last Filed Vital Signs Vital Sign Reading Time Taken Comments Blood Pressure 122/88 08/11/2019 11:41 AM OUTSIDE PHYSICAL DAMAGE APPRAISER Pulse - - Temperature 36.7 ??C (98 ??F) 08/11/2019 11: 41 AM OUTSIDE PHYSICAL DAMAGE APPRAISER Respiratory Rate - - Oxygen Saturation - - Inhaled Oxygen Concentration - - Weight 102.6 kg (226 lb 3.2 oz) 019 11:41 AM OUTSIDE PHYSICAL DAMAGE APPRAISER Height - - Body Mass Index - [...] symptoms before increase in Celexa dose 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 Review of Symptoms: [...] or new symptoms/problems develop. Theresa Fong MD IDE PHYSICAL DAMAGE APPRAISER IDE PHYSICAL DAMAGE APPRAISER documented in this encounter Plan of Treatment Scheduled Orders Name Type Priority Associated Diagnoses Orde r Schedule Lipase Lab Routine Nausea Expected: 08/11/2019, Expires: 0 Amylase Lab Routine Nausea Expected: 08/11/2019, Expires: 0 documented as of this encounter Procedures Procedure Name Priority Date/Time Associated Diagnosis Comments CBC WITH AUTO DIFFERENTIAL Routine 08/11 12:57 PM OUTSIDE PHYSICAL DAMAGE APPRAISER Nausea 17 HYDROXYPROGESTERONE Routine 9 12:57 PM OUTSIDE PHYSICAL DAMAGE APPRAISER Nausea JOSE ROBERTO-SINGH VIRUS VCA, IGM Routine 08/11/2019 12:57 PM OUTSIDE PHYSICAL DAMAGE APPRAISER Nausea JOSE ROBERTO SINGH VIRUS VCA, IGG Routine 08/11/2019 12:57 PM OUTSIDE PHYSICAL DAMAGE APPRAISER Nausea ESTRADIOL Routine 08/11/2019 12:57 PM OUTSIDE PHYSICAL DAMAGE APPRAISER Nausea DHEA Routine 08/11/2019 12:57 PM OUTSIDE PHYSICAL DAMAGE APPRAISER Nausea TESTOSTERONE, TOTAL AND FREE, SERUM Routine 08/11/2019 12:57 PM OUTSIDE PHYSICAL DAMAGE APPRAISER Nausea CRP (ACUTE PHASE) Routine 08/11/2019 12: 57 PM OUTSIDE PHYSICAL DAMAGE APPRAISER Nausea LIPASE Routine 08/11/2019 12:57 PM OUTSIDE PHYSICAL DAMAGE APPRAISER LUTEINIZING HORMONE (LH) Routine 019 12:57 PM OUTSIDE PHYSICAL DAMAGE APPRAISER Nausea FOLLICLE STIMULATING HORMONE Routine 08/11/2019 12:57 PM OUTSIDE PHYSICAL DAMAGE APPRAISER Nausea AMYLASE Routine 08/11/2019 12:57 PM OUTSIDE PHYSICAL DAMAGE APPRAISER COMPREHENSIVE METABOLIC PANEL Routine 08/11/2019 12:57 PM OUTSIDE PHYSICAL DAMAGE APPRAISER Nausea documented in this encounter Results * Lipase (08/11/2019 12:57 PM OUTSIDE PHYSICAL DAMAGE APPRAISER) LIPASE 18 7 - 60 U/L [facility] [place] 08/11/2019 12:5 7 PM OUTSIDE PHYSICAL DAMAGE APPRAISER 08/11/2019 12:58 PM OUTSIDE PHYSICAL DAMAGE APPRAISER Narrative [facility] - 08/15/2019 8:17 PM OUTSIDE PHYSICAL DAMAGE APPRAISER FASTING:NO FASTING: NO Resulting Agency Comment Performing Organization Information: ?Site ID: URIEL ?Name: [facility] ?Address: [facility] [place] [address] ?Director: Viktor Landry D.O., MPH Theresa Fong MD LAB BLOOD ORDERABL ES Final Result Performing Organization Address [facility] Co de Phone Number [facility] [place] * Amylase (08/11/2019 12:57 PM OUTSIDE PHYSICAL DAMAGE APPRAISER) Amylase 36 21 - 101 U/L [facility] [place] 08/11/2019 12:5 7 PM OUTSIDE PHYSICAL DAMAGE APPRAISER 08/11/2019 12:58 PM OUTSIDE PHYSICAL DAMAGE APPRAISER Narrative [facility] - 08/15/2019 8:17 PM OUTSIDE PHYSICAL DAMAGE APPRAISER FASTING:NO FASTING: NO Resulting Agency Comment Performing Organization Information: ?Site ID: [place] ?Name: [facility] ?Address: [facility] [place] [address] ?Director: Viktor Landry D.O., MPH Theresa Fong MD LAB BLOOD ORDERABL ES Final Result Performing Organization Address [facility] de Phone Number [facility] [place] * Testosterone, Total and Free, Serum (08/11/2019 12:57 PM OUTSIDE PHYSICAL DAMAGE APPRAISER) Testosterone 21 < OR = 40 ng/dL [facility] Comment: Pediatric Reference Ranges by Pubertal Stage for Testosterone, Total, LC/MS/MS (ng/dL): Jorge Stage ?Male ? Female Stage I ?<=5 ? <=8 Stage II ? <=167 ?<=24 Stage III ? 21-719 ?<=28 Stage IV ?25-912 ?<=31 Stage V ?110-975 ?<=33 For additional information, please refer to http://education.ChaseFuture/faq/Total TestosteroneLCMSMS ?? (This link is being provided for informational/e ducational purposes only.) This test was developed and its analytical performance characteristics have been determined by [facility]. It has not been cleared or approved by the FDA. This assay has been validated pursuant to the CLIA regulations and is used for clinical purposes. Testosterone, free 3.7 0.5 - 3.9 pg/mL [facility] Comment: This test was developed and its analytical performance characteristics have been determined by [facility]. It has not been cleared or approved by the FDA. This assay has been validated pursuant to the CLIA regulations and is used for clinical purposes. Sex hormone binding globulin 20 12 - 150 nmol/L [facility] - [facility] Comment: ?Reference Range ?<3 Years ? Not established ?3-9 Year ? 32-158 ?10-13 Years ?24-120 ?14-17 Years ?12-150 ?Jorge stages (7-17 years) ?Jorge I ? 47-166 ?Jorge II ?25-129 ?Jorge III ?? 25-129 ?Jorge IV ?30-86 ?Jorge V ? 15-130 ? Blood specimen (specimen) 08/11/2019 12:57 PM OUTSIDE PHYSICAL DAMAGE APPRAISER 08/11/2019 12:58 PM OUTSIDE PHYSICAL DAMAGE APPRAISER Narrative [facility] - 08/15/2019 8:17 PM OUTSIDE PHYSICAL DAMAGE APPRAISER FASTING:NO FASTING: NO Resulting Agency Comment Performing Organization Information: ?Site ID: [id number] ?Name: [facility] ?Address: [address] [address] ?Director: Austin Moreno M.D., Ph.D us Theresa Fong MD LAB BLOOD ORDERABL ES Final Result [facility] [place], [place] * (ABNORMAL) 17-Hydroxyprogesterone (08/11/2019 12:57 PM OUTSIDE PHYSICAL DAMAGE APPRAISER) 17-hydroxyproges terone 19(L) 26 - 325 ng/dL [...] Endocrinol Metab. 1991;73:674-686; J Clin Endocrinol Metab.1989; 69:8730-5768; and J Clin Endocrinol Metab. 1994; 78:266-270. Pediatr Res 1988;23:525-529. MedLinePlus (accessed 02/13/14). This test was developed and its analytical performance characteristics have been determined by [facility]. It has not been cleared or approved by FDA. This assay has been validated pursuant to the CLIA regulations and is used for clinical purposes. Blood specimen (specimen) 08/11/2019 12:57 PM OUTSIDE PHYSICAL DAMAGE APPRAISER 08/11/2019 12:58 PM OUTSIDE PHYSICAL DAMAGE APPRAISER Narrative [facility] - 08/15/2019 8:17 PM OUTSIDE PHYSICAL DAMAGE APPRAISER FASTING:NO FASTING: NO Resulting Agency Comment Performing Organization Information: ?Site ID: [id number] ?Name: [facility], ?Address: [address] [place] [phone] ?Director: Marisel Dailey MD,PhD,TALIB us Theresa Fong MD LAB BLOOD ORDERABL ES Final Result [facility] [place], [place] * Estradiol (08/11/2019 12:57 PM OUTSIDE PHYSICAL DAMAGE APPRAISER) [facility] Signature Estradiol 23 pg/mL [facility] [place] Comment: ?Reference Range ?Follicular Phase: ?19-144 ?Mid-Cycle: ? 64-357 ?Luteal Phase: ?56-214 ?Postmenopausal: ?< or = 31 ? Reference range established on post-pubertal patient population. No pre-pubertal reference range established using this assay. For any patients for whom low Estradiol levels are anticipated (e.g. males, pre-pubertal children and hypogonadal/post-menopausal females), the [facility] Estradiol, Ultrasensitive, LCMSMS assay is recommended (order code 06335). ?? Please note: patients being treated with the drug fulvestrant (Faslodex(R)) have demonstrated significant interference in immunoassay methods for estradiol measurement. The cross reactivity could lead to falsely elevated estradiol test results leading to an inappropriate clinical assessment of estrogen status. [facility] order code [id number], Ultrasensitive LC/MS/MS demonstrates negligible cross reactivity with fulvestrant. Blood specimen (specimen) 08/11/2019 12:57 PM OUTSIDE PHYSICAL DAMAGE APPRAISER 08/11/2019 12:58 PM OUTSIDE PHYSICAL DAMAGE APPRAISER Narrative [facility] - 08/15/2019 8:17 PM OUTSIDE PHYSICAL DAMAGE APPRAISER FASTING:NO FASTING: NO Resulting Agency Comment Performing Organization Information: ?Site ID: [id number] ?Name: [facility] ?Address: [id number] [place] [address] [place] [address] ?Director: Viktor Landry D.O. MPH us Theresa Fong MD LAB BLOOD ORDERABL ES Final Result [facility] [place] * Follicle stimulating hormone (08/11/2019 12:57 PM OUTSIDE PHYSICAL DAMAGE APPRAISER) FSH 7.7 mIU/mL [email or web address] Pradeep TREVINO Comment: ?Reference Range ? Female ? Follicular Phase ? 2.5-10.2 ? Mid-cycle Peak ? 3.1-17.7 ? Luteal Phase ? 1.5- 9.1 ? Postmenopausal ? 23.0-116.3 ?Children (<18 Years old) ? FSH reference ranges established on post- ? pubertal patient population. Reference ? range not established for pre-pubertal ? patients using this assay. For pre- ? pubertal patients, the [facility] ? [facility] FSH, Pediatrics Assay ? is recommended (78675). Blood specimen (specimen) 08/11/2019 12:57 PM OUTSIDE PHYSICAL DAMAGE APPRAISER 08/11/2019 12:58 PM OUTSIDE PHYSICAL DAMAGE APPRAISER Narrative [facility] - 08/15/2019 8:17 PM OUTSIDE PHYSICAL DAMAGE APPRAISER FASTING:NO FASTING: NO Resulting Agency Comment Performing Organization Information: ?Site ID: [place] ?Name: [facility] ?Address: [address] [facility] [place] [address] ?Director: Viktor Landry D.O. MPH us Theresa Fong MD LAB BLOOD ORDERABL ES Final Result [facility] [place] * LH (08/11/2019 12:57 PM OUTSIDE PHYSICAL DAMAGE APPRAISER) LH 5.2 mIU/mL [facility] [place] Comment: ? Reference Range Female ??Follicular Phase ??1.9-12.5 ??Mid-Cycle Peak ?8.7-76.3 ??Luteal Phase ?0.5-16.9 ??Postmenopausal ?10.0-54.7 Children (<18 years) ??LH reference ranges established on post- ??pubertal patient population. Reference ??range not established for pre-pubertal ??patients using this assay. For pre- ??pubertal patients, the [facility] ??[facility] LH, Pediatrics assay ??is recommended (order code [id number]). Blood specimen (specimen) 08/11/2019 12:57 PM OUTSIDE PHYSICAL DAMAGE APPRAISER 08/11/2019 12:58 PM OUTSIDE PHYSICAL DAMAGE APPRAISER Narrative [facility] - 08/15/2019 8:17 PM OUTSIDE PHYSICAL DAMAGE APPRAISER FASTING:NO FASTING: NO Resulting Agency Comment Performing Organization Information: ?Site ID: [id number] ?Name: [facility] ?Address: [address] [facility] [place] [address] ?Director: Viktor Landry D.O., MPH Theresa Fong MD LAB BLOOD ORDERABL ES Final Result [facility] [place] * DHEA (08/11/2019 12:57 PM OUTSIDE PHYSICAL DAMAGE APPRAISER) DHEA 233 113 - 1,360 ng/dL [facility] [...] analytical performance characteristics have been determined by [facility]. It has not been cleared or approved by FDA. This assay has been validated pursuant to the CLIA regulations and is used for clinical purposes. Blood specimen (specimen) 08/11/2019 12:57 PM OUTSIDE PHYSICAL DAMAGE APPRAISER 08/11/2019 12:58 PM OUTSIDE PHYSICAL DAMAGE APPRAISER Narrative [facility] - 08/15/2019 8:17 PM OUTSIDE PHYSICAL DAMAGE APPRAISER FASTING:NO FASTING: NO Resulting Agency Comment Performing Organization Information: ?Site ID: [id number] ?Name: [facility], ?Address: [address] [place] [phone] ?Director: Marisel Dailey MD,PhD,TALIB Theresa Fong MD LAB BLOOD ORDERABL ES Final Result [facility] [place], [place] * Jose Roberto-Singh virus VCA, IgM (08/11/2019 12:57 PM OUTSIDE PHYSICAL DAMAGE APPRAISER) EBV VCA IgM <36.00 U/mL [facility] [place] Comment: ?U/mL ?Interpretation ?---- ?<36.00 ?Negative ?36.00-43.99 ? Equivocal ?>43.99 ?Positive Blood specimen (specimen) 08/11/2019 12:57 PM OUTSIDE PHYSICAL DAMAGE APPRAISER 08/11/2019 12:58 PM OUTSIDE PHYSICAL DAMAGE APPRAISER Narrative [facility] - 08/15/2019 8:17 PM OUTSIDE PHYSICAL DAMAGE APPRAISER FASTING:NO FASTING: NO Resulting Agency Comment Performing Organization Information: ?Site ID: [place] ?Name: [facility] ?Address: [address] [place] [address] ?Director: Viktor Landry D.O., MPH Theresa Fong MD LAB BLOOD ORDERABL ES Final Result Performing Organization Address [facility]/ZIP Co de Phone Number [phone] - [place] * Jose Roberto Singh virus VCA, IgG (08/11/2019 12:57 PM OUTSIDE PHYSICAL DAMAGE APPRAISER) [facility] SOURCE WHOLE BLOOD [facility] EBV DNA NOT DETECTED [facility] Comment: REFERENCE RANGE: NOT DETECTED This test was developed and its analytical performance characteristics have been determined by [facility]. It has not been cleared or approved by FDA. This assay has been validated pursuant to the CLIA regulations and is used for clinical purposes. Blood specimen (specimen) 08/11/2019 12:57 PM OUTSIDE PHYSICAL DAMAGE APPRAISER 08/11/2019 12:58 PM OUTSIDE PHYSICAL DAMAGE APPRAISER Narrative [facility] - 08/15/2019 8:17 PM OUTSIDE PHYSICAL DAMAGE APPRAISER FASTING:NO FASTING: NO Resulting Agency Comment Performing Organization Information: ?Site ID: [id number] ?Name: [facility] ?Address: [address] [place] [phone] ?Director: Georges Saini MD Theresa Fong MD LAB BLOOD ORDERABL ES Final Result Performing Organization Address City/[facility]/ZIP Co de Phone Number [facility] [place], [place] * CRP (acute phase) (08/11/2019 12:57 PM OUTSIDE PHYSICAL DAMAGE APPRAISER) C-RP 2.8 <8.0 mg/L [facility] [place] Blood specimen (specimen) 08/11/2019 12:57 PM OUTSIDE PHYSICAL DAMAGE APPRAISER 08/11/2019 12:58 PM OUTSIDE PHYSICAL DAMAGE APPRAISER Narrative [facility] - 08/15/2019 8:17 PM OUTSIDE PHYSICAL DAMAGE APPRAISER FASTING:NO FASTING: NO Resulting Agency Comment Performing Organization Information: ?Site ID: [id number] ?Name: [facility] ?Address: [address] [place] [address] ?Director: Viktor Landry D.O., MPH us Theresa Fong MD LAB BLOOD ORDERABL ES Final Result [facility] [place] * Comprehensive metabolic panel (08/11/2019 12:57 PM OUTSIDE PHYSICAL DAMAGE APPRAISER) Pathologist [facility] Glucose 99 65 - 139 mg/dL [facility] [place] Comment: ? Non-fasting [...] [place] Blood specimen (specimen) 08/11/2019 12:57 PM OUTSIDE PHYSICAL DAMAGE APPRAISER 08/11/2019 12:58 PM OUTSIDE PHYSICAL DAMAGE APPRAISER Narrative [facility] - 08/15/2019 8:17 PM OUTSIDE PHYSICAL DAMAGE APPRAISER FASTING:NO FASTING: NO Resulting Agency Comment Performing Organization Information: ?Site ID: [id number] ?Name: [facility] ?Address: [address] [place] [address] ?Director: Viktor Landry D.O., MPH us Theresa Fong MD LAB BLOOD ORDERABL ES Final Result [facility] [place] * CBC with auto differential (08/11/2019 12:57 PM OUTSIDE PHYSICAL DAMAGE APPRAISER) WBC 5.6 4.5 - 13.0 Thousand/u L [...] [facility] [place] Basophils 1.2 % [facility] [place] Blood specimen (specimen) 08/11/2019 12:57 PM OUTSIDE PHYSICAL DAMAGE APPRAISER 08/11/2019 12:58 PM OUTSIDE PHYSICAL DAMAGE APPRAISER Narrative [facility] - 08/15/2019 8:17 PM OUTSIDE PHYSICAL DAMAGE APPRAISER FASTING:NO FASTING: NO Resulting Agency Comment Performing Organization Information: ?Site ID: URIEL ?Name: [facility] ?Address: [address] [place] [address] ?Director: Viktor Landry D.O., MPH us Theresa [...] documented as of this encounter Care Teams Digital Marketing Manager Relationship Specialty Start Date End Date Johnna Tinajero MD [address] [address] PCP - General Pediatrics 07/19/19 01/26/23 Johnna Tinajero MD [address] [address] 07/19/19 documented as of this encounter
--- OUTSIDE RECORDS SUMMARY | 2024-08-28 02:57 | XMS_ITS | Encounter Summary ---
Author Organization [facility] Address [address] [place] [address] Phone Care Team Providers Care Water Purifier Operator Name Role Phone Johnna Tinajero MD Primary Care Provider + Johnna Tinajero MD Unavailable [phone] Reason for Visit * Reason Onset Date Comments Update on Patient 10/06/2019 Encounter Details Date Type Department Care Team (Late st Contact Info) Description 10/06/2019 Telephone [facility] [address] [facility] [address] [place] [address] Johnna Tinajero MD [address] [place] [address] Update on Patient Social History Tobacco Use Types Packs/Day Years Used Date Smoking Tobacco: Never PHQ-2 Answer Date Recorded PHQ-2 Score 4 06/28/2019 Comments No Sex and Gender Information Value Date Recorded Sex Assigned at Not on file Legal Sex Female 11:42 PM CAR SWEEPER Gender Identity Not on file Sexual Orientation Not on file documented as of this encounter Miscellaneous Notes * Telephone Encounter - Basilia Dillard RN - 10/06/2019 3:42 PM CAR SWEEPER PC from mom, update on Nina. They [...] CB as needed for Nina's ongoing symptoms. SWEEPER documented in this encounter Plan of Treatment Not on file documented as of this encounter Visit Diagnoses Not on filedocumented in this encounter Care Teams Water Purifier Operator Relationship Specialty Start Date End Date Johnna Tinajero MD [address] [address] PCP - General Pediatrics 07/19/19 01/26/23 Johnna Tinajero MD [address] [address] 07/19/19 documented as of this encounter
--- OUTSIDE RECORDS SUMMARY | 2024-08-28 02:57 | XMS_ITS | Encounter Summary ---
Author Organization [facility] Healthcare Address [address] [place] [address] Care Team Providers Care Customer Account Administrator Name Role Phone Johnna Tinajero MD Primary Care Provider + oJhnna Tinajero MD Unavailable Reason for Visit * Reason Comments Vomiting Encounter Details Date Type Department Care Team (Late st Contact Info) Description 09/13/2019 11:19 AM SAMPLE CHECKER - 09/20/2019 1:50 PM [facility] Hospital Encounter [facility] [address] [place] [address] Berny Montoya MD [address] [address] Klaudia Meneses MD 1 [facility] [address] [place] [id number] Macy Najera MD 1 [facility] [address] [place] [id number] Elpidio Gimenez MD 1 [facility] [address] [place] [address] Abdominal pain, unspecified abdominal location (Primary Dx); [...] on file Legal Sex Female 11:42 PM SAMPLE CHECKER Gender Identity Not on file Sexual Orientation Not on file documented as of this encounter Last Filed Vital Signs Vital Sign Reading Time Taken Comments Blood Pressure 126/82 09/20/2019 11:13 AM SAMPLE CHECKER Pulse 92 09/20/2019 11:13 AM SAMPLE CHECKER Temperature 36.4 ??C (97.5 ??F) 09/20/2019 1 1:13 AM SAMPLE CHECKER Respiratory Rate 18 09/20/2019 11:1 3 AM SAMPLE CHECKER Oxygen Saturation 99% 09/20/2019 11: 13 AM SAMPLE CHECKER Inhaled Oxygen Concentration - - Weight 99.4 kg (219 lb 2.2 oz) 09/13/2019 6:35 P M SAMPLE CHECKER Height 161.5 cm (5' 3.58 ) 09/13/2019 6:35 PM CS T Body Mass Index 38.11 09/13/2019 6:35 PM SAMPLE CHECKER Body Mass Index Percentile 98.76% 09/13/2019 6:3 5 PM SAMPLE CHECKER Growth Chart: [facility] (Girls, 2- 20 Years) documented in this [...] - CORPUS LUTEUM CYST OF RIGHT OVARY care home (current) use of inhaled steroids - NURSING HOME (CURRENT) USE OF INHALED STEROIDS Anxiety disorder, unspecified - ANXIETY DISORDER, UNSPECIFIED Right lower quadrant pain - RIGHT LOWER QUADRANT PAIN Other nursing home (current) drug therapy - OTHER WOOL [facility]ORTER (CURRENT) DRUG THERAPY Body mass index (bmi) [...] Care Physician at Discharge: Johnna Tinajero MD [phone] Admission Date: 09/13/2019 Discharge Date: 09/20/2019 Admission Location: [facility] Chief Complaint: Persistent vomiting Primary Discharge Diagnosis: [...] since improved however and she has seen HEATER MECHANIC in clinic who felt that [...] Center 09/22/2019 1:15 PM Johnna Tinajero MD [facility] 10/05/2019 1:30 PM Florina Colby MD PD GI [facility] 2C PD Contact Information for Follow-ups Johnna Tinajero MD Specialty: Pediatrics Relationship: PCP - General [address] [place] [address] Next Steps: Follow up Instructions: Appointment with PMD on September 22 @ 1:15 pm...... Cosigned by Macy Najera MD at 09/20/2019 7:55 PM SAMPLE CHECKER LE CHECKER LE CHECKER LE CHECKER Associated attestation - Macy Najera MD - 09/20/2019 7:55 PM SAMPLE CHECKER I have seen and examined the patient [...] Macy Najera MD at 09/19/2019 12:21 PM SAMPLE CHECKER LE CHECKER LE CHECKER Associated attestation - Macy Najera MD - 09/19/2019 12:21 PM SAMPLE CHECKER I have seen and examined the patient [...] sinus rhythm with sinus arrhythmia with short MA ??? Anxiety 07/20/2019 ??? Asthma ??? Nausea [...] Pediatric Diet Regular Diet effective now Question: ([facility]) Diet type Answer: Regular 09/15/19 0907 Care [...] on 09/13/19. ?? Will follow per policy. LE CHECKER LE CHECKER * Sol Tapia MD - 09/18/2019 12:24 [...] Macy Najera MD at 09/18/2019 2:38 PM SAMPLE CHECKER LE CHECKER LE CHECKER Associated attestation - Macy Najera MD - 09/18/2019 2:38 PM SAMPLE CHECKER I have seen and examined the patient [...] NSAIDS - Continue OCP Cosigned by Macy aNjera MD at 09/17/2019 9:09 PM SAMPLE CHECKER LE CHECKER LE CHECKER Associated attestation - Macy Najera MD - 09/17/2019 9:09 PM SAMPLE CHECKER I have seen and examined the patient [...] Macy Najera MD at 09/16/2019 9:19 PM SAMPLE CHECKER LE CHECKER LE CHECKER Associated attestation - Macy Najera MD - 09/16/2019 9:19 PM SAMPLE CHECKER I have seen and examined the patient [...] Klaudia Meneses MD at 09/15/2019 3:21 PM SAMPLE CHECKER LE CHECKER LE CHECKER LE CHECKER Associated attestation - Klaudia Meneses MD - 09/15/2019 3:21 PM SAMPLE CHECKER I have seen and examined the patient [...] sinus rhythm with sinus arrhythmia with short MA ??? Anxiety 07/20/2019 ??? Asthma ??? Nausea [...] (219 lb 2.2 oz) Total Protein DRI (THERAPEUTIC CONSULTANT/AI): 84.49 Protein DRI grams/kg/day: 0.85 Baseline Fluid [...] Pediatric Diet Regular Diet effective now Question: ([facility]) Diet type Answer: Regular 09/14/19 1156 Care [...] ?? Will follow per policy RD available [phone] LE CHECKER * Viktor Villagomez MD - 09/14/2019 1:01 [...] Klaudia Meneses MD at 09/15/2019 3:26 PM SAMPLE CHECKER LE CHECKER LE CHECKER Associated attestation - Klaudia Meneses MD - 09/15/2019 3:26 PM SAMPLE CHECKER I have seen and examined the patient [...] since improved however and she has seen HEATER MECHANIC in clinic who felt that [...] in 12th grade and plans to attend [employer] next year. She is active in [...] sinus rhythm with sinus arrhythmia with short MA ??? Anxiety 07/20/2019 ??? Asthma ??? Nausea [...] Klaudia Meneses MD at 09/14/2019 10:05 PM SAMPLE CHECKER LE CHECKER LE CHECKER Associated attestation - Klaudia Meneses MD - 09/14/2019 10:05 PM SAMPLE CHECKER I have seen and examined the patient [...] (Doctor), Alicia Song RN (Nurse), Marianna Harp, Despatch Clerk (Despatch Clerk), Basilia Clark CRNA (Cancer Researcher), Anabela Hawley M.D. (Cancer Researcher), Roma Martinez, Fellow (Fellow) Referring MD: Johnna [...] by the physician, the nurse and the health and safety advisor. The time out was done in the room prior to the start of the procedure. After I obtained informed consent, the scope was passed under direct vision. Throughout the procedure, the patient's blood pressure, pulse, and oxygen saturations were monitored continuously by anesthesia. The GIF [id number] #[id number] upper endoscope was introduced through the mouth, [...] 0 Note Initiated On: 09/14/2019 9:59 AM LE CHECKER LE CHECKER LE CHECKER documented in this encounter Nursing Notes * Elpidio Mcintyre RN - 09/20/2019 1:50 PM CST Discharged 09/20/2019 at 1350 in the care of mother, patient ambulated off unit. LE CHECKER documented in this encounter ED Notes * [...] sinus rhythm with sinus arrhythmia with short MA ??? Anxiety 07/20/2019 ??? Asthma ??? Nausea [...] Rosette Camara MD at 09/14/2019 11:29 PM SAMPLE CHECKER LE CHECKER LE CHECKER Associated attestation - Rosette Camara MD - 09/14/2019 11:29 PM SAMPLE CHECKER I have supervised the care of the patient on 09/13/[address] Montoya. I agree with the findings and plan of care as documented in the resident's note. * Any Zuniga, GLENDA - 09/13/2019 11:19 AM CST Bed: ED1-22 Expected date: 09/13/19 Expected time: 8:25 AM Means of arrival: Car Comments: Any Zuniga RN 09/13/19 1119 LE CHECKER * Jennifer Lorenzo RN - 09/13/2019 10:20 AM CST Vomiting since last night, about 12x. Last episode just now in triage. Patient with ongoing nausea x2 months. LE CHECKER documented in this encounter Miscellaneous Notes * [...] Lili Villalpando MD at 09/22/2019 2:06 PM SAMPLE CHECKER LE CHECKER LE CHECKER * Plan of Care - [place], [place] [...] had limited PO intake throughout the night LE CHECKER * Plan of Care - Nhi Ramirez [...] of discharge needs will improve Outcome: Progressing LE CHECKER * Assessment & Plan Note - Viktor [...] - KUB to evaluate passage of contrast LE CHECKER LE CHECKER LE CHECKER * Assessment & Plan Note - Viktor Villagomez MD - 09/19/2019 10:53 AM CSTAssociated Problem(s): Mild malnutrition (HCC) (Resolved 08/22/2020) 15 pound weight loss over several months due to chronic nausea and vomiting with resultant poor appetite. - Manage nausea symptoms - nutrition consult LE CHECKER * Assessment & Plan Note - Viktor [...] for pain, avoid NSAIDS - Continue OCP LE CHECKER LE CHECKER * Subjective & Objective - Viktor Villagomez [...] 09/15/19 - Normal MRI of the brain. LE CHECKER * Plan of Care - Bibiana Hernandez [...] dinner. Still poor fluid PO, on mIVF LE CHECKER * Plan of Care - Nina Saleh [...] had improved PO intake and improved nausea. LE CHECKER * Assessment & Plan Note - Sol Tapia MD - 09/18/2019 12:24 PM SAMPLE CHECKER Associated Problem(s): Mild malnutrition (HCC) (Resolved 08/22/2020) 15 pound weight loss over several months due to chronic nausea and vomiting with resultant poor appetite. - Manage nausea symptoms - nutrition consult LE CHECKER * Assessment & Plan Note - Sol Tapia MD - 09/18/2019 12:17 PM SAMPLE CHECKER Associated Problem(s): Chronic nausea 2 month history [...] if contrast cleared, gastric emptying if clear. LE CHECKER * Assessment & Plan Note - Sol Tapia MD - 09/18/2019 12:17 PM SAMPLE CHECKER Associated Problem(s): Abdominal pain Right lower quadrant [...] for pain, avoid NSAIDS - Continue OCP LE CHECKER * Subjective & Objective - Sol Tapia MD - 09/18/2019 12:15 PM SAMPLE CHECKER Pediatric Daily Progress Subjective Chief complaint of [...] 09/15/19 - Normal MRI of the brain. LE CHECKER * Medical Student - Jaswant Pastrana - [...] Nehal Salgado MD at 09/18/2019 11:14 AM SAMPLE CHECKER LE CHECKER LE CHECKER * Plan of Care - Bibiana Hernandez [...] episode of emesis after eating. Poor PO LE CHECKER * Plan of Care - Nina Saleh [...] nausea Summary: Nausea and intake mildly improved. LE CHECKER * Assessment & Plan Note - Viktor [...] nausea - Gastric emptying study next week LE CHECKER * Assessment & Plan Note - Viktor Villagomez MD - 09/17/2019 3:13 PM CSTAssociated Problem(s): Mild malnutrition (HCC) (Resolved 08/22/2020) 15 pound weight loss over several months due to chronic nausea and vomiting with resultant poor appetite. - Manage nausea symptoms - nutrition consult - Consider cyproheptadine LE CHECKER * Assessment & Plan Note - Viktor [...] for pain, avoid NSAIDS - Continue OCP LE CHECKER * Subjective & Objective - Viktor Villagomez [...] 09/15/19 - Normal MRI of the brain. LE CHECKER * Medical Student - Jaswant Pastrana - [...] Nehal Salgado MD at 09/17/2019 11:49 AM SAMPLE CHECKER LE CHECKER LE CHECKER * Plan of Care - Tila Harmon [...] discharge needs will improve Outcome: Progressing Summary: LE CHECKER * Plan of Oscar - Nina Saleh [...] Clinical Goals for the Shift: nausea management, LE CHECKER * Assessment & Plan Note - Viktor [...] nausea - Gastric emptying study next week LE CHECKER LE CHECKER * Assessment & Plan Note - Viktor Villagomez MD - 09/16/2019 11:42 AM CSTAssociated Problem(s): Mild malnutrition (HCC) (Resolved 08/22/2020) 15 pound weight loss over several months due to chronic nausea and vomiting with resultant poor appetite. - Manage nausea symptoms - nutrition consult - Consider cyproheptadine LE CHECKER * Assessment & Plan Note - Viktor [...] for pain, avoid NSAIDS - Continue OCP LE CHECKER * Subjective & Objective - Viktor Villagomez [...] 09/15/19 - Normal MRI of the brain. LE CHECKER * Medical Student - Jaswant Pastrana - [...] Nehal Salgado MD at 09/16/2019 11:19 AM SAMPLE CHECKER LE CHECKER LE CHECKER * Plan of Care - Jaswant Phan RN - 09/15/2019 9:49 PM CST Goals: Clinical Goals for the Shift: Zofran for nausea, pain control, monitor i/o Summary: Reviewed overnight plan of care with patient, mother. Encouraged po, nausea control. LE CHECKER * Plan of Care - Elpidio Mcintyre [...] the pain. Nina remains free of falls. LE CHECKER * Assessment & Plan Note - Viktor [...] lexapro vs start cyproheptadine - Zofran prn LE CHECKER * Assessment & Plan Note - Viktor Villagomez MD - 09/15/2019 2:52 PM CSTAssociated Problem(s): Mild malnutrition (HCC) (Resolved 08/22/2020) 15 pound weight loss over several months due to chronic nausea and vomiting with resultant poor appetite. - Manage nausea symptoms - nutrition consult LE CHECKER * Assessment & Plan Note - Viktor [...] for pain, avoid NSAIDS - Continue OCP LE CHECKER * Subjective & Objective - Viktor Villagomez [...] Imaging: Upper GI series 09/15/19 - normal LE CHECKER * Medical Student - Jaswant Pastrana - [...] Nehal Salgado MD at 09/15/2019 11:46 AM SAMPLE CHECKER LE CHECKER LE CHECKER LE CHECKER * Plan of Care - Lety Thompson [...] series today. Pain got up to 5/10. LE CHECKER * Plan of Care - Elpidio Mcintyre [...] Tolerated scope, poor PO intake after scope. LE CHECKER * Assessment & Plan Note - Viktor [...] ECG for prolonged zofran use - UDS LE CHECKER * Assessment & Plan Note - Viktor [...] for pain, avoid NSAIDS - Continue OCP LE CHECKER * Subjective & Objective - Viktor Villagomez [...] POC Negative Leukocyte esterase, ur, POC Negative LE CHECKER * Perioperative Nursing Note - Shawna Monae RN - 09/14/2019 11:50 AM SAMPLE CHECKER Patient awake and drinking Sprite on the transport to the [address] unit. No complaints of noted at this time. Oxygen saturations greater than 94% on RA with no distress noted. Family present with patient. Patient able to transfer self from stretcher to her bed without any difficulties. No questions orconcerns of noted at this time. Report given to GLENDA Magallanes patient's floor RN. LE CHECKER * Hospital Course - LjrooseveltJaswant - 09/14/2019 [...] with GI follow up in 2-3 weeks. LE CHECKER LE CHECKER LE CHECKER LE CHECKER LE CHECKER LE CHECKER LE CHECKER LE CHECKER LE CHECKER LE CHECKER * Plan of Care - Lety Thompson [...] x1. NPO since midnight. Denies any pain. LE CHECKER * Assessment & Plan Note - Viktor [...] marijuana use. - Admit to GI - MDVF - NPO at midnight for EGD 09/14 - Zofran prn LE CHECKER LE CHECKER * Assessment & Plan Note - Viktor [...] for pain, avoid NSAIDS - Continue OCP LE CHECKER LE CHECKER * Medical Student - Zeina Jaswant - [...] and abdominal pain, latricia was admitted to [facility] from 07/19-07/23 and was subsequently diagnosed with slow leaking ruptured ovarian cyst. During admission, extensive workup was done (normal pelvic/ovaries US, normal gallbladder US, labs wnl), including CT abdomen/pelvis w/ contrast (due to continued pain and rebound tenderness on exam) which showed right ovarian corpus lutealcyst w/ small amount of fluid in the cul-de-sac which REVERSING MILL ROLLER thought may explain her pain. Patient was [...] patient also followed up with OBGYN at [facility] (Dr. Crum) who confirmed that the ovarian [...] because GI doc was concerned for terminal supervisor effects. During this time patient [...] Ruptured Ovarian Cyst - resolved at last REVERSING MILL ROLLER visit, on OCP (norgestin) for prevention of [...] She is in 12th grade and attending [employer] next year. She has friends she likes [...] Nehal Salgado MD at 09/15/2019 11:01 AM SAMPLE CHECKER LE CHECKER LE CHECKER LE CHECKER * Plan of Care - Haily Becker RN - 09/13/2019 6:44 PM CST Goals: Have decreased nausea Summary: Problem: Bowel/Gastric: Goal: Ability to maintain baseline age appropriate bowel function will improve Outcome: Not Progressing Problem: Fluid Volume: Goal: Ability to maintain a balanced intake and output will improve Outcome: Not Progressing LE CHECKER * Subjective & Objective - Viktor Villagomez [...] since improved however and she has seen HEATER MECHANIC in clinic who felt that [...] in 12th grade and plans to attend [employer] next year. She is active in [...] sinus rhythm with sinus arrhythmia with short MA ??? Anxiety 07/20/2019 ??? Asthma ??? Nausea [...] and Ovaries R/o torsion 09/13/19 - Normal LE CHECKER LE CHECKER LE CHECKER * ED Re-evaluation Note - Berny Montoya MD - 09/13/2019 1:50 PM SAMPLE CHECKER ED Re-evaluation I have reviewed and confirmed the history and personally examined the patient. I discussed the findings, interventions, and diagnostic testing with the resident. I agree with the findings as presented without exceptions in our respective documentation. Berny Montoya MD 10/15/19 0937 LE CHECKER * ED Pre-Arrival Note - Any Zuniga, GLENDA - 09/13/2019 8:25 AM SAMPLE CHECKER Pre-Arrival Note Pt vomiting since last night x10; no uop > 6hrs; coming in for dehydration Any Zuniga, GLENDA LE CHECKER documented in this encounter Plan of Treatment Not on file documented as of this encounter Procedures Procedure Name Priority Date/Time Associated Diagnosis Comments XR KUB IP Routine 09/19/2019 12:07 PM SAMPLE CHECKER MRI BRAIN W WO CONTRAST GOBRAIN IP Routine 09/15/2019 2:38 PM SAMPLE CHECKER FL UPPER GI SERIES, SINGLE CONTRAST IP Routine 09/15/2019 8:47 AM SAMPLE CHECKER DRUG SCREEN, URINE Routine 09/14/2019 2:20 PM SAMPLE CHECKER ECG 12-LEAD Routine 09/14/2019 12:39 PM SAMPLE CHECKER H. PYLORI UREASE SCREEN (MAGALIE TEST) Routine 09/14/2019 11:03 AM SAMPLE CHECKER ESOPHAGOGASTRODUODENOSCOPY BIOPSY 09/14/2019 10:18 AM SAMPLE CHECKER Abdominal pain, unspecified abdominal location Nausea SURGICAL PATHOLOGY Routine 09/14/2019 10:05 AM SAMPLE CHECKER Abdominal pain, unspecified abdominal location Nausea EGD 09/14/2019 9:59 AM SAMPLE CHECKER POCT URINALYSIS (CLINITEK) Routine 09/13 2:11 PM SAMPLE CHECKER HCG, URINE, QUALITATIVE STAT 09/13/19 2:07 PM SAMPLE CHECKER US PELVIS AND OVARIAN DOPPLE R LIMITED (C) ED 09/13/2019 1:20 PM SAMPLE CHECKER documented in this encounter Results * XR Kub (09/19/2019 12:07 PM SAMPLE CHECKER) Anatomical Region Laterality Modality Body, Abdomen N/A Computed Radiogr aphy 09/19/2019 12:1 4 PM SAMPLE CHECKER Impressions 09/19/2019 12:14 PM SAMPLE CHECKER Residual barium is seen within the transverse and descending colon. There is no evidence of obstruction. Electronically signed by: Sherly To M.D. Narrative 09/19/2019 12:14 PM SAMPLE CHECKER EXAMINATION: ??XR KUB HISTORY: ??Evaluate barium clearance [...] W WO Contrast GoBrain (09/15/2019 2:38 PM SAMPLE CHECKER) Anatomical Region Laterality Modality Head and Neck N/A Magnetic Resonan ce 09/15/2019 3:36 PM SAMPLE CHECKER Impressions 09/15/2019 4:28 PM SAMPLE CHECKER Normal MRI of the brain. Dictated by: Jeff Goldberg M.D. The radiology attending physician has personally reviewed this study, and had reviewed and/or edited this written report and agrees with it. Electronically signed by: Igor Mayorga M.D. Narrative 09/15/2019 4:28 PM SAMPLE CHECKER EXAMINATION: Magnetic resonance imaging (MRI) of the [...] GI Series, Single Contrast (09/15/2019 8:47 AM SAMPLE CHECKER) Anatomical Region Laterality Modality Body N/A Computed Radiogr aphy 09/15/2019 8:57 AM SAMPLE CHECKER Impressions 09/15/2019 8:58 AM SAMPLE CHECKER Normal. Dictated by: Sancho Bailey M.D. The radiology attending physician has personally reviewed this study, and had reviewed and/or edited this written report and agrees with it. Electronically signed by: Kayleen Deleon M.D. Narrative 09/15/2019 8:58 AM SAMPLE CHECKER EXAMINATION: ??FL UPPER GI SERIES, SINGLE CONTRAST HISTORY: ??19-year-old girl with persistent nausea/vomiting COMPARISON: ??None. ??Correlation with CT abdomen and pelvis 07/21/2019. FINDINGS: ??The initial general ledger accountant image is unremarkable. The child drank thin [...] abdomen and pelvis 07/21/2019. FINDINGS: The initial general ledger accountant image is unremarkable. The child drank thin [...] (ABNORMAL) Drug screen, urine (09/14/2019 2:20 PM SAMPLE CHECKER) Pathologist [facility] Drug screen, ur Positive(A) [facility] Comment: The following compounds were detected: ?? Fentanyl, Repeated and verified. Computer Game Designer review to follow. Interpretive Data This test detects the presence of approximately 50 substances using LC-tandem mass spectrometry. For a list of specific compounds and detection limits refer to the Lab Test Guide Book. While this technique is highly specific, false-positive and false-negative findings may occur in very rare circumstances. Contact the Computer Game Designer scientific publications editor ([phone]) for consultation if needed. This test was developed and its performance characteristics determined by [facility]. It has not been cleared or approved by the U.S. Food and Drug Administration. Current interpretive data was last revised 2016. Director Review Verified [facility] Comment:Upon Medical Directo r review, no additional compounds were detected. Urine 09/14/2019 2:20 PM SAMPLE CHECKER 09/14/2019 2:25 PM SAMPLE CHECKER Klaudia Meneses MD LAB URINE ORDERABLES Final Result [facility] [place] [address] * ECG 12 lead (09/14/2019 12:39 PM SAMPLE CHECKER) Ventricular Rate EKG/Min 77 BPM [facility] Atrial Rate 77 BPM [facility] MA-Interval (MSEC) 142 ms [facility] QRS-Interval (MSEC) 74 ms [facility] QT-Interval (MSEC) 378 ms [facility] QTc 440 ms [facility] P [place] 38 degrees [facility] R [place] 4 degrees [facility] T [place] 9 degrees [facility] Diagnosis Normal sinus rhythm Normal ECG When compared with ECG of 25-AUG-2019 12:24, No significant change was found Confirmed by MD NISHA, FELICE ([id number]) on 09/14/2019 1:40:56 PM [facility] 09/14/2019 12:3 9 PM SAMPLE CHECKER 09/14/2019 1:40 PM SAMPLE CHECKER Klaudia Meneses MD ECG ORDERABLES Final Resul t Performing Organization Address City/[facility]/ZIP Co de Phone Number [facility] * H. pylori urease screen (MAGALIE test) Tissue Gastric (09/14/2019 11:03 AM SAMPLE CHECKER) H. pylori, rapid (MAGALIE) Negative [facility] Comment: MAGALIE is an acronym for [...] on 17. Tissue (Gastric) 09/14/2019 11:03 AM SAMPLE CHECKER 09/14/2019 11:12 AM SAMPLE CHECKER Klaudia Meneses MD LAB MICROBIOLOGY - GENERAL ORDERABLES Final Result [facility] [place] [address] * Surgical pathology (09/14/2019 10:05 AM SAMPLE CHECKER) Tissue (Duodenum, Biopsy) 09/14/2019 10:05 AM SAMPLE CHECKER Tissue (Antrum and/or Body) 09/14/2019 10:05 AM SAMPLE CHECKER Tissue (Esophageal biopsy) 09/14/2019 10:05 AM SAMPLE CHECKER Narrative PATHOLOGY [facility] - 09/15/2019 11:17 AM SAMPLE CHECKER EPIC results best viewed via link to PDF [facility] Ebonie Tran Laboratory [place] [address] [facility] FINAL WITH ADDENDUM Patient Name: ?? NINA COYNE Gender: ??F : ??2000 (Age: 19) Address: ??[address] [place] [id number] Hospital #: ??[id number] Taken:09/14/2019 Received:09/14/2019 Reported: 09/15/2019 Patient Type: [facility] Inpatient ?? Service: Gastro [place] [facility] [id number] Physician(s): ??Klaudia Meneses M.D. Johnna Tinajero M.D. [...] determined by the Surgical Pathology Department at [facility] as part of an ongoing fiberglass quality technician program and in compliance with federally mandated [...] determined by the Surgical Pathology Department of [facility]. ??It has not been cleared or approved by the U. S. Food and Drug Administration. IMAGES AND SCANNED DOCUMENTS, IF INCLUDED, ONLY VIEWABLE IN PDF VERSION OF REPORT us Klaudia Meneses MD LAB PATHOLOGY ORDERABLES [facility] Result PATHOLOGY [facility] [phone] * EGD (09/14/2019 9:59 AM SAMPLE CHECKER) Anatomical Region Laterality Modality Other Narrative Procedure Note Klaudia Meneses MD - 09/14/2019 9:59 AM CST Patient Name: Nina Coyne Procedure Date: 09/14/2019 9:59 AM Date of : 2000 Admit Type: Inpatient Age: 19 Gender: Female Attending MD: Klaudia Meneses M.D. Procedure: Pediatric Upper GI Endoscopy Providers: Klaudia Meneses M.D. (Doctor), Alicia Song RN (Nurse), Marianna Harp, Despatch Clerk (Despatch Clerk), ErinL. Amber CRNA (Cancer Researcher), Anabela Hawley M.D. (Cancer Researcher), Roma Martinez, Fellow (Fellow) Referring MD: Johnna [...] by the physician, the nurse and the health and safety advisor. The time out was done inthe room prior to the start of the procedure. After I obtained informed consent, the scope was passed under direct vision. Throughout the procedure, the patient's blood pressure, pulse, and oxygensaturations were monitored continuously by anesthesia. The GIF [id number] endoscope was introduced through the mouth, and [...] (ABNORMAL) POCT urinalysis (Clinitek) (09/13/2019 2:11 PM SAMPLE CHECKER) Color, ur, POC Yellow [facility] Clarity, [...] Negative [facility] Urine 09/13/2019 2:11 PM SAMPLE CHECKER 09/13/2019 2:11 PM SAMPLE CHECKER Berny Montoya MD LAB POCT ORDERABLES - TATYANA CE Final Result [facility] [place] [address] * hCG, urine, qualitative (09/13/2019 2:07 PM SAMPLE CHECKER) HCG, ur Negative Negative [facility] Urine 09/13/2019 2:07 PM SAMPLE CHECKER 09/13/2019 2:17 PM SAMPLE CHECKER us Berny Montoya MD LAB URINE ORDERABLES Final Result [facility] [place] [address] * US Pelvis and Ovarian Doppler Limited (R/O Torsion in a pelvis) (09/13/2019 1:20 PM SAMPLE CHECKER) Anatomical Region Laterality Modality Pelvis N/A Ultrasound 09/13/2019 1:25 PM SAMPLE CHECKER Impressions 09/13/2019 2:34 PM SAMPLE CHECKER Normal. Dictated by: Kunal Hdez M.D. , PHD The radiology attending physician has personally reviewed this study, and had reviewed and/or edited this written report and agrees with it. Electronically signed by: Sherly To M.D. Narrative 09/13/2019 2:34 PM SAMPLE CHECKER EXAMINATION: ??US PELVIS AND OVARIAN DOPPLER LIMITED [...] Indications: Fever, PainIndications:Fever,Pain Given 09/15/2019 10:24 PM SAMPLE CHECKER 650 mg Given 09/15/2019 4:27 PM SAMPLE CHECKER 650 mg Given 09/14/2019 12:04 PM SAMPLE CHECKER 650 mg albuterol 2.5 mg/0.5 mL nebulizer solution 2.5 mg 2.5 mg, nebulization, Once, On Thu09/14/19 at 1145, For 1 dose, Phase I, Notify anesthesiologist to evaluate, Indications: WheezingIndications:Wheezing Given 09/14/2019 11:02 AM SAMPLE CHECKER 2.5 mg barium sulfate (LIQUID POLIBAR PLUS) 105 % (w/v), 58 % (w/w) suspension 400 mL 400 mL, oral, Once in imaging, contrast, Starting on Celia 16/20 at 0847, For 1 dose, Marvin phillips, Indications: Digestive System RadiographyIndications:Digestive System Radiography Given 09/15/2019 8:48 AM SAMPLE CHECKER 200 mL dextrose 5% and sodium chloride 0.9% with potassium chloride 20 mEq/L infusion (premix) 1.5 L/m2/day ? 2.13 m2 (133.125 mL/hr, rounded to 133.1 mL/hr), intravenous, Continuous, Starting on Thu09/13/19 at 1816 New Bag 09/18/2019 5:45 AM SAMPLE CHECKER 1.5 L/m2/day 133.1 mL/hr Rate/Dose Verify 09/18/2019 2:08 AM SAMPLE CHECKER 1.5 L/m2/day 133.1 mL/hr Rate/Dose Verify 09/17/2019 11:35 PM SAMPLE CHECKER 1.5 L/m2/day 133. 1 mL/hr dextrose 5% and sodium chloride 0.9% with potassium chloride 20 mEq/L infusion (premix) 50 mL/hr, intravenous, Continuous, Starting on Thu09/18/19 at 1300 New Bag 09/20/2019 5:44 AM SAMPLE CHECKER 100 mL/hr 100 mL/hr New Bag 09/19/2019 9:18 PM SAMPLE CHECKER 100 mL/hr 100 mL/hr New Bag 09/19/2019 8:02 PM SAMPLE CHECKER 100 mL/hr 100 mL/hr escitalopram (LEXAPRO) tablet 10 mg 10 mg, oral, Daily, First dose (after last modification) on Thu09/15/19 at 2100 Given 09/18/2019 8:09 PM SAMPLE CHECKER 10 mg Given 09/17/2019 8:00 PM SAMPLE CHECKER 10 mg Given 09/16/2019 8:38 PM SAMPLE CHECKER 10 mg escitalopram (LEXAPRO) tablet 20 mg 20 mg, oral, Daily, First dose on Thu09/13/19 at 2230 Given 09/14/2019 8:48 PM SAMPLE CHECKER 20 mg fluticasone furoate-vilanterol (BREO ELLIPTA) 100-25 mcg/dose inhaler 1 puff 1 puff, inhalation, Daily, First dose on Thu09/13/19 at 2100, Drug Name: fluticasone furoate-vilanterol (Breo Ellipta) 100-25 mcg/dose diskus, Form: inhaler, Length of Therapy: Indefinite, How soon needed? (normally 72 hrs needed to procure): 0-24 hrs, Reason for Non-Formulary: home med not on formulary Given 09/19/2019 8:02 PM SAMPLE CHECKER 1 puff Given 09/18/2019 8:09 PM SAMPLE CHECKER 1 puff Given 09/17/2019 8:00 PM SAMPLE CHECKER 1 puff gadoterate meglumine (DOTAREM) 0.5 mmol/mL injection 20 mL 20 mL, intravenous, Once in imaging, contrast, Starting on Thu09/15/19 at 1427, For 1 dose Given 09/15/2019 2:38 PM SAMPLE CHECKER 20 mL Right Antecubital lansoprazole (PREVACID) capsule 15 mg 15 mg, oral, 2 times daily, First dose on Thu09/14/19 at 1245, Do not crush, chew, cut, dissolve, open or otherwise manipulate tablet/capsule., Indications: Treatment of Non-Bleeding Gastric DisorderIndications:Treatment of Non-Bleeding Gastric Disorder Given 09/20/2019 8:50 AM SAMPLE CHECKER 15 mg Given 09/19/2019 8:02 PM SAMPLE CHECKER 15 mg Given 09/19/2019 9:46 AM SAMPLE CHECKER 15 mg lidocaine 1% buffered injection 0.1 mL 0.1 mL, subcutaneous, Once, On Thu09/13/19 at 1657, For 1 dose, Maximum daily dose 0.1 mL/kg, Administer immediately prior to procedure. Given 09/13/2019 5:14 PM SAMPLE CHECKER 0.1 mL Other (Comment) lidocaine 1% buffered injection 0.1 mL 0.1 mL, subcutaneous, As needed, other, IV insertion, Starting on Thu09/18/19 at 2025, Maximum daily dose 0.1 mL/kg Administer immediately prior to procedure. Given 09/18/2019 9:46 PM SAMPLE CHECKER 0.1 mL Other (Comment) norgestimate-ethinyl estradiol (ORTHO [...] not on formulary Given 09/19/2019 8:02 PM SAMPLE CHECKER 1 tablet Given 09/18/2019 8:09 PM SAMPLE CHECKER 1 tablet Given 09/17/2019 8:00 PM SAMPLE CHECKER 1 tablet nortriptyline (PAMELOR) capsule 10 mg 10 mg, oral, Nightly, First dose on Thu09/16/19 at 2100 Given 09/18/2019 8:09 PM SAMPLE CHECKER 10 mg Given 09/17/2019 8:01 PM SAMPLE CHECKER 10 mg Given 09/16/2019 9:16 PM SAMPLE CHECKER 10 mg nortriptyline (PAMELOR) capsule 10 mg 10 mg, oral, 2 times daily, First dose (after last modification) on Thu09/19/19 at 1430 Given 09/19/2019 8:03 PM SAMPLE CHECKER 10 mg Given 09/19/2019 2:56 PM SAMPLE CHECKER 10 mg ondansetron ODT (ZOFRAN-ODT) disintegrating tablet 4 mg 4 mg, oral, Once, On Thu09/13/19 at 1025, For 1 dose, Maximum dose = 4 mg Given 09/13/2019 10:27 AM SAMPLE CHECKER 4 mg ondansetron ODT (ZOFRAN-ODT) disintegrating tablet 4 mg 4 mg, oral, Every 6 hours PRN, nausea, vomiting, Starting on Thu09/13/19 at 1815 Given 09/16/2019 9:38 AM SAMPLE CHECKER 4 mg Given 09/15/2019 4:28 PM SAMPLE CHECKER 4 mg Given 09/15/2019 8:58 AM SAMPLE CHECKER 4 mg polyethylene glycol (MIRALAX) packet 17 g 17 g, oral, Daily, First dose on Thu09/19/19 at 0930, Mix 17 grams in 8 ounces of fluid, Indications: constipationIndications:constipation Given 09/20/2019 8:50 AM SAMPLE CHECKER 17 g Given 09/19/2019 9:47 AM SAMPLE CHECKER 17 g documented in this encounter Discontinued [...] Recently Administered Medications Times are shown in SAMPLE CHECKER. Scheduled Medication Order 09/18/2019 09/19/2019 09/20/2019 escitalopram [...] 09/13/2019 documented in this encounter Care Teams Customer Account Administrator Relationship Specialty Start Date End Date Johnna Tinajero MD [address] [address] PCP - General Pediatrics 07/19/19 01/26/23 Johnna Tinajero MD [address] [address] 07/19/19 documented as of this encounter
--- OUTSIDE RECORDS SUMMARY | 2024-08-28 02:57 | XMS_ITS | Encounter Summary ---
Author Organization [facility] Address [address] [place] [address] Phone Care Team Providers Care Seo Team Lead Name Role Phone Johnna Tinajero MD Primary Care Provider + Johnna Tinajero MD Unavailable [phone] Encounter Details Date Type Department Care Team (Late st Contact Info) Description 08/26/2019 Telephone [facility] Pediatric Gastroenterology [facility] 2nd [place] [address] [place] [address] Arminda Salazar, RN Social History Tobacco Use Types Packs/Day Years Used Date Smoking Tobacco: Never PHQ-2 Answer Date Recorded PHQ-2 Score 4 06/28/2019 Comments No Sex and Gender Information Value Date Recorded Sex Assigned at Not on file Legal Sex Female 11:42 PM PRESS OPERATOR [employer] Gender Identity Not on file Sexual Orientation Not on file documented as of this encounter Miscellaneous Notes * Telephone Encounter - Arminda Salazar RN - 08/26/2019 4:30 PM PRESS OPERATOR [employer] Called and left a message for mom that PAYTON would like her to see the PCP in follow up and to call us back after that appointment with an update. S OPERATOR [employer] * Telephone Encounter - Nehemiah Zhao MD - 08/26/2019 11:19 AM PRESS OPERATOR [employer] Thanks - does she have f/u scheduled with Dr. Tinajero, the PMD? If not, she should and we should get update on status again after that followup. S OPERATOR [employer] * Telephone Encounter - Arminda Salazar RN - 08/26/2019 10:52 AM PRESS OPERATOR [employer] Called mom for an update She stated [...] PAYTON. Mom was appreciative of the call. S OPERATOR [employer] * Telephone Encounter - Arminda Salazar RN - 08/26/2019 10:50 AM PRESS OPERATOR [employer] ----- Message from Nehemiah Zhao MD sent at 08/25/2019 9:44 AM PRESS OPERATOR [employer] ----- Repeat CBC from 08/22 looks good Please review that with mother and get update on her status. S OPERATOR [employer] documented in this encounter Plan of Treatment Not on file documented as of this encounter Visit Diagnoses Not on filedocumented in this encounter Care Teams Seo Team Lead Relationship Specialty Start Date End Date Johnna Tinajero MD [address] [id number] PCP - General Pediatrics 07/19/19 01/26/23 Johnna Tinajero MD [address] [id number] 07/19/19 documented as of this encounter
--- OUTSIDE RECORDS SUMMARY | 2024-08-28 02:57 | XMS_ITS | Encounter Summary ---
Author Organization [facility] Address [address] [place] [address] [address] [place] [address] Phone Care Team Providers Care Ditch Cleaner Name Role Phone Johnna Tinajero MD Primary Care Provider + Johnna Tinajero MD Unavailable [phone] Reason for Referral * (Routine) - Closed Specialty Diagnoses / Procedures Referred By Controseanne t Referred To Contact Diagnoses Encounter for routine child health examination with abnormal findings Fatigue, unspecified type Nausea Obesity without serious comorbidity with body mass index (BMI) greater than 99th percentile for age in pediatric patient, unspecified obesity type Procedures ECG 12 lead Johnna Tinajero MD [address] [place] [address] [address] [place] [address] Phone: tel: fax: [facility] (All Locations) Referral ID Status Reason Start Date Expiration Date Visits Re quested Visits Authorized [id number] Closed 08/16/2019 02/24/2021 1 1 PHOTO OPERATOR Encounter Details Date Type Department Care Team (Late st Contact Info) Description 08/16/2019 Telephone [facility] [address] [facility] [address] [place] [address] Johnna Tinajero MD [address] [place], [place] [address] [address] [place] [address] Social History Tobacco Use Types Packs/Day Years Used Date Smoking Tobacco: Never PHQ-2 Answer Date Recorded PHQ-2 Score 4 06/28/2019 Comments No Sex and Gender Information Value Date Recorded Sex Assigned at Not on file Legal Sex Female 11:42 PM WIRE PHOTO OPERATOR Gender Identity Not on file Sexual [...] cardiology d/c'd. Just needs EKG. Order sent PHOTO OPERATOR * Telephone Encounter - Madyson Roberts - [...] take her in for EKG this week. PHOTO OPERATOR * Telephone Encounter - Johnna Tinajero MD - 08/16/2019 1:08 PM WIRE PHOTO OPERATOR PC to mom; discussed visit with Dr. Zhao, who called me yesterday about visit with him. We both agreed cause could be the Celexa. I spoke with child psychiatrist Eli Perez today ([place]- CPAP) who recommended weaning the Celexa in a week (half dose) and then starting Lexapro 10 mg daily for a week, could increase to 20 mg. I spoke with [facility] pharmacist about possible QT prolongation on both Lexapro and Zofran, which mom says she continues to take once in the morning and once in the afternoon. REc: EKG. To get EKG and change to Lexapro, then see how she does. Also increase water intake and repeat CBC this weekend. If symptoms not improving on Lexapro or hgb decreasing, needs to be scoped. PHOTO OPERATOR documented in this encounter Plan of Treatment Not on file documented as of this encounter Results * ECG 12 lead (08/25/2019 12:27 PM WIRE PHOTO OPERATOR) Ventricular Rate EKG/Min 69 BPM [facility] Atrial Rate 69 BPM [facility] VA-Interval (MSEC) 138 ms [facility] QRS-Interval (MSEC) 78 ms [facility] QT-Interval (MSEC) 380 ms [facility] QTc 412 ms [facility] P Wesley 30 degrees [facility] R Wesley 9 degrees [facility] T Wesley 7 degrees [facility] Diagnosis Normal sinus rhythm with sinus arrhythmia with short VA When compared with ECG of 23-JAN-2017 10:14, patient is now in sinus rhythm Otherwise normal ECG Confirmed by MD NISHA, FELICE ([id number]) on 08/26/2019 6:11:28 AM [facility] 08/25/2019 12:2 4 PM WIRE PHOTO OPERATOR 08/26/2019 6:11 AM WIRE PHOTO OPERATOR us Johnna Tinajero MD ECG ORDERABLES Final Re sult [facility] documented in this encounter Visit [...] documented as of this encounter Care Teams Ditch Cleaner Relationship Specialty Start Date End Date Johnna Tinajero MD [address] [address] PCP - General Pediatrics 07/19/19 01/26/23 Johnna Tinajero MD [address] [address] 07/19/19 documented as of this encounter
--- OUTSIDE RECORDS SUMMARY | 2024-08-28 02:57 | XMS_ITS | Encounter Summary ---
Author Organization [facility] Address [address] [place] [address] Phone Care Team Providers Care Safety Administrator Name Role Phone Johnna Tinajero MD Primary Care Provider + Johnna Tinajero MD Unavailable [phone] Encounter Details Date Type Department Care Team (Late st Contact Info) Description 08/18/2019 Telephone [facility] Pediatric Gastroenterology [address] [facility] [address] [place] [address] Nehemiah Zhao MD [address] [facility] [address] [place] [address] Social History Tobacco Use Types Packs/Day Years Used Date Smoking Tobacco: Never PHQ-2 Answer Date Recorded PHQ-2 Score 4 06/28/2019 Comments No Sex and Gender Information Value Date Recorded Sex Assigned at Not on file Legal Sex Female 11:42 PM CDL SERVICE TECHNICIAN Gender Identity Not on file Sexual Orientation Not on file documented as of this encounter Miscellaneous Notes * Telephone Encounter - Leonor Mccarthy RN - 08/18/2019 3:40 PM CDL SERVICE TECHNICIAN Spoke to mom. Will get CBC at [facility]. They restarted Omeprazole. Weaning Celexa and will start Lexapro Thursday. She is still having nausea. Mom says she is not improved. Give PPI some time since stopped and then restarted. Her abdominal pain level is a 4. SERVICE TECHNICIAN * Telephone Encounter - Leonor Mccarthy RN - 08/18/2019 11:30 AM CDL SERVICE TECHNICIAN LM to call back for update and to arrange repeat CBC. SERVICE TECHNICIAN * Telephone Encounter - Leonor Mccarthy RN - 08/18/2019 11:30 AM CDL SERVICE TECHNICIAN ----- Message from Nehemiah Zhao MD sent at 08/15/2019 5:00 PM CDL SERVICE TECHNICIAN ----- Please call to get update on status on or Thursday and arrange to have repeat cbc obtained on Thursday or Thursday. Can be done locally so long as we can get results. Let me know if questions. SERVICE TECHNICIAN documented in this encounter Plan of Treatment Not on file documented as of this encounter Visit Diagnoses Not on filedocumented in this encounter Care Teams Safety Administrator Relationship Specialty Start Date End Date Johnna Tinajero MD [address] [address] PCP - General Pediatrics 07/19/19 01/26/23 Johnna Tinajero MD [address] [address] 07/19/19 documented as of this encounter
--- OUTSIDE RECORDS SUMMARY | 2024-08-28 02:57 | XMS_ITS | Encounter Summary ---
Author Organization [facility] Address [address] [place] [address] Care Team Providers Care Harpoon Engagement Planning Operator Name Role Phone Johnna Tinajero MD Primary Care Provider + Johnna Tinajero MD Unavailable [phone] Encounter Details Date Type Department Care Team (Late st Contact Info) Description 09/14/2019 10:16 AM HAND DEVELOPER Anesthesia Event [facility] [place] [address] Anabela Hawley MD [address] [place] [address] Anabela Sheridan MD [address] [place] [address] Anesthesia Record Procedure Summary Procedure Name Responsible [...] on file Legal Sex Female 11:42 PM HAND DEVELOPER Gender Identity Not on file Sexual Orientation Not on file documented as of this encounter OR Notes * Anesthesia Postprocedure Evaluation - Anabela Hawley MD - 09/14/2019 11:53 AM CST Patient: Nina Coyne Procedure Summary Date: 09/14/19 [place] [facility] [place] [facility] OPER[facility] Anesthesia Start: 1016 Anesthesia Stop: [...] acceptable Pt is: normothermic Nausea/Vomiting status: none DEVELOPER * Anesthesia Postprocedure Evaluation - Tracey Woodruff DO - 09/14/2019 11:38 AM CST Patient: Nina Coyne Procedure Summary Date: 09/14/19 Room / [place] [facility] [place] [facility] OPER[facility] Anesthesia Start: 1015 Anesthesia Stop: [...] acceptable Pt is: normothermic Nausea/Vomiting status: none DEVELOPER * Anesthesia Procedure Notes - Basilia Clark CRNA - 09/14/2019 11:01 AM HAND DEVELOPER Associated Order(s): Airway Airway Patient location: OR Indications for airway management: anesthesia Difficult airway: no Staff: Supervising provider: Anabela Hawley MD Placed by: LEGAL EXECUTIVE ASSISTANT: Basilia Clark CRNA Emergent airway documentation: Risks [...] of attempts: 1 Ventilation between attempts: none DEVELOPER * Anesthesia Preprocedure Evaluation - Anabela Hawley [...] rhythm with sinus arrhythmia with short DC ??? Anxiety 07/20/2019 ??? Asthma ??? Nausea [...] trial extubation. Informed Consent: Discussed plan with LEGAL EXECUTIVE ASSISTANT. Anesthesia plan and risks discussed with patient, father and mother. Consent and Attending signature: I and/or my designee have discussed the anesthesia plan, benefits, possible alternatives, parental presence at time of induction (if indicated), and clinically relevant risks that may include dental injury, unintentional awareness, and/or other complications. The patient and/or parent/legal guardian understand, and agree to proceed. All questions answered. DEVELOPER DEVELOPER documented in this encounter Plan of Treatment Not on file documented as of this encounter Procedures Procedure Name Priority Date/Time Associated Diagnosis Comments DC AN PROCEDURE PLACEHOLDER Routine 09/14/2019 11:01 AM HAND DEVELOPER DC AN ELECTIVE ENDOTRACHEAL AIRWAY Routine 09/14/2019 11:01 AM HAND DEVELOPER documented in this encounter Results * DC AN ELECTIVE ENDOTRACHEAL AIRWAY, DC AN PROCEDURE PLACEHOLDER (09/14/2019 11:01 AM HAND DEVELOPER) Basilia Lewis CRNA - 09/14/2019 11:01 AM HAND DEVELOPER Basilia Clark CRNA ? 09/14/2019 11:01 AM Airway Patient location: OR Indications for airway management: anesthesia Difficult airway: no Staff: Supervising provider: Anabela Hawley MD Placed by: LEGAL EXECUTIVE ASSISTANT: Basilia Clark CRNA Emergent airway documentation: Risks [...] 1032, Anesthesia Intra-op Given 09/14/2019 10:32 AM HAND DEVELOPER 8 mg fentaNYL (SUBLIMAZE) preservative free injection As needed, Starting on Thu09/14/19 at 1022, Anesthesia Intra-op Given 09/14/2019 10:22 AM HAND DEVELOPER 100 mcg Lactated Ringer's (LR) infusion Continuous PRN, Starting on Thu09/14/19 at 1019, Anesthesia Intra-op New Bag 09/14/2019 10:19 AM HAND DEVELOPER lidocaine PF (XYLOCAINE) 10 mg/mL (1 %) preservative free injection As needed, Starting on Thu09/14/19 at 1022, Anesthesia Intra-op Given 09/14/2019 10:22 AM HAND DEVELOPER 20 mg propofol (DIPRIVAN) IV As needed, Starting on Thu09/14/19 at 1022, Anesthesia Intra-op Given 09/14/2019 10:22 AM HAND DEVELOPER 200 mg succinylcholine (ANECTINE) injection As needed, Starting on Thu09/14/19 at 1022, Anesthesia Intra-op Given 09/14/2019 10:22 AM HAND DEVELOPER 100 mg documented in this encounter Care Teams Harpoon Engagement Planning Operator Relationship Specialty Start Date End Date Johnna Tinajero MD [address] [address] PCP - General Pediatrics 07/19/19 01/26/23 Johnna Tinajero MD [address] [address] 07/19/19 documented as of this encounter
--- OUTSIDE RECORDS SUMMARY | 2024-08-28 02:57 | XMS_ITS | Encounter Summary ---
Author Organization [facility] Address [address] [place] [address] Phone Care Team Providers Care Seat Builder Name Role Phone Johnna Tinajero MD Primary Care Provider + Johnna Tinajero MD Unavailable [phone] Reason for Visit * Consultation (Routine) - Canceled Specialty Diagnoses / Procedures Referred By Contact Referred To Contact Pediatric Gastroenterology Diagnoses Nausea Fatigue, unspecified type Theresa Fong MD [address] [facility] [address] [place] [address] Phone: tel: fax: [facility] (All Locations) Referral ID Status Reason Start Date Expiration Date Visits Requested Visits Authorized [id number] Canceled Specialty Services Required 08/11/2019 02/19/2021 1 1 Encounter Details Date Type Department Care Team (Late st Contact Info) Description 08/15/2019 9:30 AM CHANGE AGENT Office Visit [facility] Pediatric Gastroenterology [facility] 2nd [place] [address] [place] [address] Nehemiah Zhao MD 1 [facility] [address] [place] [address] Abdominal pain, unspecified abdominal location (Primary Dx); Nausea Social History Tobacco Use Types Packs/Day Years Used Date Smoking Tobacco: Never PHQ-2 Answer Date Recorded PHQ-2 Score 4 06/28/2019 Comments No Sex and Gender Information Value Date Recorded Sex Assigned at Not on file Legal Sex Female 11:42 PM CHANGE AGENT Gender Identity Not on file Sexual Orientation Not on file documented as of this encounter Last Filed Vital Signs Vital Sign Reading Time Taken Comments Blood Pressure 110/78 08/15/2019 9:42 AM CHANGE AGENT Pulse 78 08/15/2019 9:42 AM CHANGE AGENT Temperature 36.9 ??C (98.5 ??F) 08/15/2019 9:42 AM CS T Respiratory Rate 16 08/15/2019 9:42 AM CHANGE AGENT Oxygen Saturation - - Inhaled Oxygen Concentration - - Weight 101.3 kg (223 lb 5.2 oz) 08/15/2019 9:42 AM CHANGE AGENT Height 162 cm (5' 3.78 ) 08/15/2019 9:42 AM CHANGE AGENT Body Mass Index 38.6 08/15/2019 9:42 AM CHANGE AGENT Body Mass Index Percentile 98.92% 08/15/2019 9:4 2 AM CHANGE AGENT Growth Chart: CDC (Girls, 2- 20 Years) documented in this encounter Progress Notes * Nehemiah Zhao MD - 08/15/2019 9:30 AM CST 08/15/2019 Nina Elvin Coyne 2000 We saw Nina today for an initial consultation in the Pediatric Gastroenterology, Hepatology & Nutrition office at [facility]. Nina is a 19 y.o. female with [...] management of persistent nausea following Nina's recent [facility] hospital admission with nausea and abdominal pain.Nina first noted nausea shortly after initiating citalopram [...] outpatient without apparent improvement, then admitted to [facility] from 07/19-07/23 for further evaluation and management. 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 She has 14 yo sister and 10 yo brother. She has previously been involved in dance and recently involved in theatre. - She sees counselor for anxiety and depression. She has missed 12 d of school this year. She will attend [employer] school beginning next year. Allergies Allergen Reactions [...] is warm and dry. Capillary Refill: Nail telugu impacted assessment. Comments: Mild darkening but no [...] indications to call Dr. Tinajero or GI addiction social worker for consideration of urgent reevaluation. 7. We also discussed referral to Dr. Weeks's [facility] clinic based on her BMI which they expressed willingness to consider. The above considerations were reviewed with the patient, mother and Dr. Tinajero in detail. Thank you for the opportunity to see Nina. Nehemiah Zhao MD GE AGENT documented in this encounter Plan of Treatment Not on file documented as of this encounter Visit Diagnoses Diagnosis Abdominal pain, unspecified abdominal location- Primary Nausea Nausea alone documented in this encounter Care Teams Seat Builder Relationship Specialty Start Date End Date Johnna Tinajero MD [address] [address] PCP - General Pediatrics 07/19/19 01/26/23 Johnna Tinajero MD [address] [address] 07/19/19 documented as of this encounter
--- OUTSIDE RECORDS SUMMARY | 2024-08-28 02:57 | XMS_ITS | Encounter Summary ---
Author Organization [facility] Address [address] [place] [address] Phone Care Team Providers Care Supply Chain Planner Name Role Phone Johnna Tinajero MD Primary Care Provider + Johnna Tinajero MD Unavailable [phone] Reason for Visit * Reason Onset Date Comments medication adjustment 10/12/2019 Encounter Details Date Type Department Care Team (Late st Contact Info) Description 10/12/2019 Telephone [facility] Pediatric Gastroenterology [facility] 2nd [place] [address] [place] [address] Maureen Weeks MD [address] [place] [address] [address] [place] [address] medication adjustment Social History Tobacco Use Types Packs/Day Years Used Date Smoking Tobacco: Never PHQ-2 Answer Date Recorded PHQ-2 Score 4 06/28/2019 Comments No Sex and Gender Information Value Date Recorded Sex Assigned at Not on file Legal Sex Female 11:42 PM STRADDLE TRUCK OPERATOR Gender Identity Not on file Sexual [...] day varies. Will give SIDNEY the update. DDLE TRUCK OPERATOR * Telephone Encounter - Marina Paty Grazyna - 10/12/2019 3:28 PM STRADDLE TRUCK OPERATOR Mom (Vicki) is calling, mom said when they saw Sidney and JENNIFER that they adjusted her nausea medication. Mom says that she is still nauseous and vomiting and wanting to know if another adjustment could be done. DDLE TRUCK OPERATOR documented in this encounter Plan of Treatment Not on file documented as of this encounter Visit Diagnoses Not on filedocumented in this encounter Care Teams Supply Chain Planner Relationship Specialty Start Date End Date Johnna Tinajero MD [address] [address] PCP - General Pediatrics 07/19/19 01/26/23 Johnna Tinajero MD [address] [address] 07/19/19 documented as of this encounter
--- OUTSIDE RECORDS SUMMARY | 2024-08-28 02:57 | XMS_ITS | Encounter Summary ---
Author Organization [facility] Address [address] [place] [address] Phone Care Team Providers Care Hog Pusher Name Role Phone Johnna Tinajero MD Primary Care Provider + Johnna Tinajero MD Unavailable [phone] Encounter Details Date Type Department Care Team (Late st Contact Info) Description 10/13/2019 Telephone [facility] [address] [place] [address] Johnna Tinajero MD [address] [place] [address] Social History Tobacco Use Types Packs/Day Years Used Date Smoking Tobacco: Never PHQ-2 Answer Date Recorded PHQ-2 Score 4 06/28/2019 Comments No Sex and Gender Information Value Date Recorded Sex Assigned at Not on file Legal Sex Female 11:42 PM SPECIAL EDUCATION BUS DRIVER Gender Identity Not on file Sexual [...] Johnna Tinajero MD - 10/13/2019 1:40 PM SPECIAL EDUCATION BUS DRIVER PC to mom for progress. Still having [...] GI about ? Increase in nortriptyline dose. IAL EDUCATION BUS DRIVER documented in this encounter Plan of Treatment Not on file documented as of this encounter Visit Diagnoses Diagnosis Anxiety- Primary Anxiety state, unspecified documented in this encounter Care Teams Hog Pusher Relationship Specialty Start Date End Date Johnna Tinajero MD [address] [place] [address] PCP - General Pediatrics 07/19/19 01/26/23 Johnna Tinajero MD [address] [place] [address] 07/19/19 documented as of this encounter
--- OUTSIDE RECORDS SUMMARY | 2024-08-28 02:57 | XMS_ITS | Encounter Summary ---
Author Organization [facility] Address [address] [place] [address] [address] [place] [address] Phone Care Team Providers Care Geospatial Technician Name Role Phone Johnna Tinajero MD Primary Care Provider + Johnna Tinajero MD Unavailable [phone] Encounter Details Date Type Department Care Team (Late st Contact Info) Description 08/26/2019 Telephone [facility] [address] [place] [address] Johnna Tinajero MD [address] [place] [address] Social History Tobacco Use Types Packs/Day Years Used Date Smoking Tobacco: Never PHQ-2 Answer Date Recorded PHQ-2 Score 4 06/28/2019 Comments No Sex and Gender Information Value Date Recorded Sex Assigned at Not on file Legal Sex Female 11:[address]LLER ENGINEER Gender Identity Not on file Sexual [...] Mom was also informed - Negative EKG ROLLER ENGINEER * Telephone Encounter - Madyson Roberts - 08/26/2019 4:31 PM CST ----- Message from Madyson Roberts sent at 08/26/2019 1:[address] ROLLER ENGINEER ----- LM to Cb. She said she was tolerating well but did not ask if still nauseous. ----- Message ----- From: Johnna Tinajero MD Sent: 08/26/2019 12:[address] ROLLER ENGINEER To: Tam[facility] Trouble Shooter Kenyon Steinberg, did her nausea resolve? That was the reason for changing the medication. ROLLER ENGINEER documented in this encounter Plan of Treatment Not on file documented as of this encounter Visit Diagnoses Not on filedocumented in this encounter Care Teams Geospatial Technician Relationship Specialty Start Date End Date Johnna Tinajero MD [address] [address] PCP - General Pediatrics 07/19/19 01/26/23 Johnan Tinajero MD [address] [address] 07/19/19 documented as of this encounter
--- OUTSIDE RECORDS SUMMARY | 2024-08-28 02:57 | XMS_ITS | Encounter Summary ---
Author Organization [facility] Address [address] [place] [address] Phone Care Team Providers Care Partition Notcher Name Role Phone Johnna Tinajero MD Primary Care Provider + Johnna Tinajero MD Unavailable [phone] Encounter Details Date Type Department Care Team (Late st Contact Info) Description 10/05/2019 1:30 PM NETWORK PROJECT MANAGER Office Visit [facility] Pediatric Gastroenterology [facility] 2nd [place] [address] [place] [address] Florina Colby MD [address] [place] [address] [address] [place], [place] [id number] Abdominal pain, unspecified abdominal location (Primary Dx); [...] on file Legal Sex Female 11:42 PM NETWORK PROJECT MANAGER Gender Identity Not on file Sexual Orientation Not on file documented as of this encounter Last Filed Vital Signs Vital Sign Reading Time Taken Comments Blood Pressure 118/80 10/05/2019 1:32 PM NETWORK PROJECT MANAGER Pulse 90 10/05/2019 1:32 PM NETWORK PROJECT MANAGER Temperature 36.5 ??C (97.7 ??F) 10/05/2019 1:32 PM CS T Respiratory Rate 20 10/05/2019 1:32 PM NETWORK PROJECT MANAGER Oxygen Saturation - - Inhaled Oxygen Concentration - - Weight 100.8 kg (222 lb 3.6 oz) 10/05/2019 1:32 PM NETWORK PROJECT MANAGER Height 162.5 cm (5' 3.98 ) 10/05/2019 1:32 PM CS T Body Mass Index 38.17 10/05/2019 1:32 PM NETWORK PROJECT MANAGER Body Mass Index Percentile 98.76% 10/05/2019 1:3 2 PM NETWORK PROJECT MANAGER Growth Chart: [facility] (Girls, 2- 20 Years) documented in this encounter Patient Instructions * Patient Instructions* Florina Colby MD - 10/05/2019 1:30 PM NETWORK PROJECT MANAGER - Referral to Neurology - Increase Nortriptyline to 30 mg - Consider trial with erythromycin for delayed gastric emptying or obtain a gastric emptying study - Will discuss restarting Lexapro with Dr. Johnna Tinajero ORK PROJECT MANAGER ORK PROJECT MANAGER ORK PROJECT MANAGER documented in this encounter Progress Notes * Florina Colby MD - 10/05/2019 1:30 PM CST 10/05/2019 Nina Elvin Coyne 2000 We saw Nina today for a follow-up visit in the Pediatric Gastroenterology, Hepatology & Nutrition office at [facility]. Nina is a 19 y.o. female [...] pain has since improved however??and she hasseen PACKAGING ASSOCIATE in clinic who felt that the pain [...] Maureen Weeks MD at 10/07/2019 12:25 PM NETWORK PROJECT MANAGER ORK PROJECT MANAGER ORK PROJECT MANAGER Associated attestation - Maureen Weeks MD - 10/07/2019 12:25 PM NETWORK PROJECT MANAGER I have seen and examined the patient. [...] alone documented in this encounter Care Teams Partition Notcher Relationship Specialty Start Date End Date Johnna Tinajero MD [address] [address] PCP - General Pediatrics 07/19/19 01/26/23 Johnna Tinajero MD [address] [address] 07/19/19 documented as of this encounter
--- OUTSIDE RECORDS SUMMARY | 2024-08-28 02:57 | XMS_ITS | Encounter Summary ---
Author Organization [facility] Address [address] [place] [address] Care Team Providers Care Android Software Engineer Name Role Phone Johnna Tinajero MD Primary Care Provider + Johnna Tinajero MD Unavailable [phone] Encounter Details Date Type Department Care Team (Late st Contact Info) Description 09/22/2019 11:59 PM ZOOLOGY TEACHER Anesthesia Event [facility] [address] [place] [address] Shital Mcdonnell NP [address] [place] [address] Anesthesia Record Procedure Summary Procedure Name Responsible [...] on file Legal Sex Female 11:42 PM ZOOLOGY TEACHER Gender Identity Not on file Sexual [...] rhythm with sinus arrhythmia with short NC ??? Anxiety 07/20/2019 ??? Asthma ??? Nausea [...] rhythm with sinus arrhythmia with short NC 01/23/17 Echo LV normal size and systolic function OGY TEACHER documented in this encounter Plan of Treatment Not on file documented as of this encounter Visit Diagnoses Not on filedocumented in this encounter Care Teams Android Software Engineer Relationship Specialty Start Date End Date Johnna Tinajero MD [address] [address] PCP - General Pediatrics 07/19/19 01/26/23 Johnna Tinajero MD [address] [address] 07/19/19 documented as of this encounter
--- OUTSIDE RECORDS SUMMARY | 2024-08-28 02:58 | XMS_ITS | Encounter Summary ---
Author Organization [facility] Address [address] [place] [address] Care Team Providers Care Research Geneticist Name Role Phone Johnna Tinajero MD Primary Care Provider + Encounter Details Date Type Department Care Team (Latest Contact Info) Description 12/30/2016 10:42 AM CDT - 12/30/2016 11:59 PM CDT Hospital Encounter [facility] [phone] Nehemiah Crowe MD [address] [facility] [phone] [place] [address] Discharge Disposition: Discharge to home or self care Social History Tobacco Use Types Packs/Day Years Used Date Smoking Tobacco: Never Comments Unknown Sex and Gender Information Value Date Recorded Sex Assigned at Not on file Legal Sex Female 11:42 PM PRINTER REPAIR TECHNICIAN Gender Identity Not on file Sexual [...] D 25-OH 12(L) 20 - 100 ng/mL [facility] Comment: Interpretive Data AGES: -18 years Sufficient: 20-100 ng/mL Borderline: 10-20 ng/mL Deficient: ??<10 ng/mL Reference intervals pertain to males and females from through age 18 years of age. Intervals reflect consensus clinical decision limits derived from various reports including the 2011 [place] [employer] Report on calcium and vitamin D. Vitamin D concentrations may vary widely depending on ethnic background, geographic location, and the time of the year the sample was obtained. References: 1. Christopher CL, Arianne DAMICO. Prevention of Rickets and Vitamin D Deficiency in Infants, Children, and Adolescents. Pediatrics 2008;122:5555-2880. 2. Rosalio AC, Yamile CL, Michael AL, Majano HB, eds. Dietary Reference Intakes for Calcium and Vitamin D. [place] of [employer]; National Academies Press:2011 3. Natasha JEMIMA, Mack J, and Fabio DJ. Circulating Intact Parathyroid Hormone is Suppressed at 25-hydroxyvitamin D Concentrations greater than 25 nmol/L. J Pediatr Endocrinol Metab 2014;doi:10.1515/xycf-7364-4526. Current interpretive data was last revised on 2013 Blood specimen (specimen) 12/30/2016 10:56 AM CDT 12/30/2016 12:01 PM CDT Nehemiah Crowe MD LAB BLOOD ORDERABLES Edited Result - Final Performing Organization Address [facility] de Phone [place] [address] * TSH (12/30/2016 10:56 AM CDT) Pathologist [facility] Thyroid Stimulating Hormone 1.35 0.30 - 4.20 mcIUnit/mL [facility] Comment: Interpretive Data: TSH concentration may range up to 100 mcIUnit/ml due to surge of TSH production on the first day of life and then fall gradually to adult levels by one month of age. Current [facility] data was last revised as of 01/12/2006. Blood specimen (specimen) 12/30/2016 10:56 AM CDT 12/30/2016 12:01 PM CDT Nehemiah Crowe MD LAB BLOOD ORDERABLES Final Result Performing Organization Address [facility] de Phone Number [place] [address] * T4, free (12/30/2016 10:56 AM CDT) [facility] Free T4 1.03 0.90 - 1.70 ng/dL [facility] Comment: Interpretive data: Free T4 concentrations rise acutely to as high as 5 ng/dl on the first day of life following TSH surge and then decrease gradually to adult levels by one month of age. Current [facility] data was last revised on 06. Blood specimen (specimen) 12/30/2016 10:56 AM CDT 12/30/2016 12:01 PM CDT Nehemiah Crowe MD LAB BLOOD ORDERABLES Final Result Performing Organization Address [facility] [[email or web address]] Co de Phone Number [place] [address] * Differential, auto (12/30/2016 10:56 AM CDT) Neutrophil abs 4.98 1.50 - 9.40 K/cumm [facility] Lymphocyte abs 2.79 1.00 - 7.20 K/cumm [facility] Monocyte abs 0.66 0.10 - 1.70 K/cumm [facility] Eosinophil abs 0.26 0.10 - 1.60 K/cumm [facility] Basophil abs 0.05 0.00 - 0.30 K/cumm [facility] Imm gran abs 0.02 0.00 - 0.20 K/cumm [facility] Neutrophil pct 56.9 % [facility] Lymphocyte pct 31.8 % [facility] Monocyte pct 7.5 % [facility] Eosinophil pct 3.0 % [facility] Basophil pct 0.6 % [facility] Imm gran pct 0.2 % [facility] Blood specimen (specimen) 12/30/2016 10:56 AM CDT 12/30/2016 11:01 AM CDT us Nehemiah Crowe MD LAB BLOOD ORDERABLES Final Result [facility] Department [place] [address] * CBC without differential (12/30/2016 10:56 AM CDT) WBC 8.76 3.80 - 9.90 K/cumm [facility] RBC 4.62 3.90 - 5.20 M/cumm [facility] Hgb 13.3 11.9 - 15.5 g/dL [facility] Hct 40.8 35.6 - 45.5 % [facility] MCV 88.3 81.3 - 96.4 fL [facility] MCH 28.8 27.1 - 33.3 pg [facility] MCHC 32.6 32.3 - 35.7 g/dL [facility] RDW CV 13.5 11.1 - 14.9 % [facility] RDW SD 42.9 35.7 - 48.1 fL [facility] Plt 333 150 - 400 K/cumm [facility] MPV 9.8 9.1 - 12.3 fL [facility] NRBC abs 0.00 0.00 - 0.01 K/cumm [facility] NRBC 0.0 % [facility] Blood specimen (specimen) 12/30/2016 10:56 AM CDT 12/30/2016 11:01 AM CDT us Nehemiah Crowe MD LAB BLOOD ORDERABLES Final Result Performing Organization Address City/State/[facility] [[email or web address]] Co de Phone Number [facility] Department [place] [address] documented in this encounter Visit Diagnoses Not on filedocumented in this encounter Care Teams Research Geneticist Relationship Specialty Start Date End Date Johnna Tinajero MD [address] [address] PCP - General 12/17/16 07/18/19 documented as of this encounter
--- OUTSIDE RECORDS SUMMARY | 2024-08-28 02:58 | XMS_ITS | Encounter Summary ---
Author Organization [facility] Care Team Providers Care Gastrointestinal Technician Name Role Phone Unavailable Primary Care Provider Unavailabl e Encounter Details Date Type Department Care Team (Late st Contact Info) Description 07/19/2014 3:53 PM DIECAST MACHINE OPERATOR - 07/19/2014 11:59 PM DIECAST MACHINE OPERATOR Hospital Encounter [facility] Ross Whiteside MD [address] [phone] [place] [address] Migraine Social History Tobacco Use Types Packs/Day Years Used Date Smoking Tobacco: Never Assessed Comments Unknown Sex and Gender Information Value Date Recorded Sex Assigned at Not on file Legal Sex Female 11:42 PM DIECAST MACHINE OPERATOR Gender Identity Not on file Sexual Orientation Not on file documented as of this encounter Plan of Treatment Not on file documented as of this encounter Procedures Procedure Name Priority Date/Time Associated Diagnosis Comments MRI BRAIN W WO CONTRAST Routine 07/19/2014 4:51 PM DIECAST MACHINE OPERATOR documented in this encounter Results * MRI Brain W WO Contrast (07/19/2014 4:51 PM DIECAST MACHINE OPERATOR) Anatomical Region Laterality Modality Head and Neck N/A Magnetic Resonan ce 07/19/2014 4:51 PM DIECAST MACHINE OPERATOR Narrative 07/22/2014 9:02 AM DIECAST MACHINE OPERATOR GIL ALEJANDRO MD, PHD KARLIE AVELAR M.D. FINAL REPORT The radiology attending physician has personally reviewed this study, and has reviewed and/or edited this written report and agrees with it. ACC# ??Date Time ??Exam [id number] Jul 19, 2014 16:51:00 [id number] MRI BRAIN W WO CONTRAST EXAMINATION: ?? [...] agrees with it. ACC# Date Time Exam [id number] Jul 19, 2014 16:51:00 [id number] MRI BRAIN W WO CONTRAST EXAMINATION: Magnetic [...]
--- OUTSIDE RECORDS SUMMARY | 2024-08-28 02:58 | XMS_ITS | Encounter Summary ---
Author Organization [facility] Address [address] [place] [address] [address] [place] [address] Phone Care Team Providers Care Chimney Supervisor Brick Name Role Phone Johnna Tinajero MD Primary Care Provider + Reason for Visit * Reason Comments Well Child 18 YEAR CHECK Encounter Details Date Type Department Care Team (Late st Contact Info) Description 08/17/2018 3:45 PM KEYBOARD INSTRUMENT TUNER Office Visit [facility] [address] [facility] [address] [place] [address] Johnna Tinajero MD [address] [place] [address] [address] [place] [address] Encounter for routine child health [...] on file Legal Sex Female 11:42 PM KEYBOARD INSTRUMENT TUNER Gender Identity Not on file Sexual Orientation Not on file documented as of this encounter Last Filed Vital Signs Vital Sign Reading Time Taken Comments Blood Pressure 112/52 08/17/2018 3:57 PM KEYBOARD INSTRUMENT TUNER Pulse - - Temperature - - Respiratory Rate - - Oxygen Saturation - - Inhaled Oxygen Concentration - - Weight 105.6 kg (232 lb 11. 2 oz) 08/17/2018 3:57 PM KEYBOARD INSTRUMENT TUNER Height 160 cm (5' 3 ) 08/17/2018 3:57 PM KEYBOARD INSTRUMENT TUNER Body Mass Index 41.22 08/17/2018 3:57 PM KEYBOARD INSTRUMENT TUNER Body Mass Index Percentile 99.64% 08/17/2018 3:5 7 PM KEYBOARD INSTRUMENT TUNER Growth Chart: [facility] (Girls, 2- 20 Years) documented in this encounter Progress Notes * Johnna Tinajero MD - 08/17/2018 3:45 PM CST Subjective Nina Coyne is a 18 y.o. female who is here for her well child visit accompanied by mother Abdominal symptoms that she had in the spring resolved and have not recurred Fewer headaches now; has only missed two full days. Occasionally leaves early (4-5 times this year). This is best year Asthma : flared at [facility]; didn't have to be seen, didn't [...] nostril., Disp: , Rfl: ??? FLUZONE QUAD [id number], PF, 60 mcg (15 mcg x 4)/0.5 [...] level is 10th. Current [place] is [place]. Child is performing acceptably in school. Social [...] ) >99 %ile (Z= 2.38) based on [facility] 2-20 Years utnmcg-khb-shu data using vitals from 08/17/2018. 34 %ile (Z= -0.42) based on CDC 2-20 Years qidsuod-qvh-inx data using vitals from 08/17/2018. >99 %ile [...] regular activity 5. Irregular menses. Referral to Marketing Planning Manager; consider PCOS. 1. Anticipatory guidance. Discussed the [...] or sooner as needed. Johnna Tinajero MD OARD INSTRUMENT TUNER documented in this encounter Plan of Treatment [...] tablet by mouth daily. 06/28/2019 FLUZONE QUAD [id number], PF, 60 mcg (15 mcg x 4)/0.5 mL syringe 0 07/21/2018 019 added in this encounter Orders Immunization/Injection Count Last Ordered Date First Ordered Date MENINGOCOCCAL B, RECOMBINANT (TRUMENBA) 1 1 10/18/2017 MENINGOCOCCAL CONJUGATE VACC INE MCV4P IM (MENACTRA) 1 08/17/2018 documented in this encounter Care Teams Chimney Supervisor Brick Relationship Specialty Start Date End Date Johnna Tinajero MD [address] [address] PCP - General 12/17/16 07/18/19 documented as of this encounter
--- OUTSIDE RECORDS SUMMARY | 2024-08-28 02:58 | XMS_ITS | Encounter Summary ---
Author Organization [facility] Address [address] [place] [address] Phone Care Team Providers Care Artificial Limb Maker Name Role Phone Johnna Tinajero MD Primary Care Provider + Reason for Visit * Reason Comments Abdominal Pain x 5 days not eating well Nausea Encounter Details Date Type Department Care Team (Late st Contact Info) Description 07/18/2019 1:45 PM READING RECOVERY TEACHER Office Visit [facility] [facility] [address] [place] [address] Cecilia Owen MD [address] [place] [address] Acute abdominal pain (Primary Dx); Nausea; Mild dehydration Social History Tobacco Use Types Packs/Day Years Used Date Smoking Tobacco: Never PHQ-2 Answer Date Recorded PHQ-2 Score 4 06/28/2019 Comments Unknown Sex and Gender Information Value Date Recorded Sex Assigned at Not on file Legal Sex Female 11:42 PM READING RECOVERY TEACHER Gender Identity Not on file Sexual [...] 104.8 kg (231 lb) 07/18/2019 1:50 PM READING RECOVERY TEACHER Height - - Body Mass Index - [...] or new symptoms/problems develop. Cecilia Owen MD ING RECOVERY TEACHER documented in this encounter Plan of Treatment Not on file documented as of this encounter Procedures Procedure Name Priority Date/Time Associated Diagnosis Comments POCT URINALYSIS, AUTO W/O SCOPE Routine 07/18/2019 2:42 PM READING RECOVERY TEACHER Acute abdominal pain Nausea Mild dehydration POCT URINE CULTURE Routine 07/18/2019 2: 00 PM READING RECOVERY TEACHER Acute abdominal pain Nausea Mild dehydration documented in this encounter Results * (ABNORMAL) POCT UA, AUTO W/O SCOPE (07/18/2019 2:42 PM READING RECOVERY TEACHER) Color, Urine, POC Dark Yellow Clarity, ur, POC Clear Clear Glucose, ur, POC Negative Negative mg/dL Bilirubin, ur, POC Negative Negative, Small, Moderate, Large Ketones, ur, POC Small(A) Negative Specific Lannon, POC 1.025 1.005 - 1.030 Blood, ur, POC Negative Negative pH, ur, POC 5.0 5.0 - 8.0 Protein, ur, POC 1+(A) Negative Urobilinogen, Urine, POC 2.0 mg/dL Leukocytes, ur, POC Negative Negative Nitrite, ur, POC Negative Negative Appearance, fld Clear Clear Urine 07/18/2019 2:42 PM READING RECOVERY TEACHER Cecilia Owen MD POINT OF CARE TEST ORDERABLES Final Result * POCT URINE CULTURE (07/18/2019 2:00 PM READING RECOVERY TEACHER) Urine Culture, POC negative Culture, POC negative Urine 07/18/2019 2:00 PM READING RECOVERY TEACHER us Cecilia Owen MD POINT OF CARE [...] abdominal pain,Nausea,Mild dehydration Given 07/18/2019 2:35 PM READING RECOVERY TEACHER 4 mg documented in this encounter Orders Medications Ordered That Jonny ht Not Have Been Administered Count Last Ordered Date First Ordered Date ondansetron ODT (ZOFRAN-ODT) disintegrating tablet 4 mg 1 07/18/2019 documented in this encounter Care Teams Artificial Limb Maker Relationship Specialty Start Date End Date Johnna Tinajero MD [address] [place] [id number] PCP - General 12/17/16 07/18/19 documented as of this encounter
--- OUTSIDE RECORDS SUMMARY | 2024-08-28 02:58 | XMS_ITS | Encounter Summary ---
Author Organization [facility] Facility Care Team Providers Care Medical Sales Name Role Phone Unavailable Primary Care Provider Unavailabl e Encounter Details Date Type Department Care Team (Late st Contact Info) Description 04/08/2016 1:17 PM CDT - 04/08/2016 11:59 PM CDT Hospital Encounter [facility] Shola Mcmullen MD [address] [place] [address] Hearing loss Social History Tobacco Use Types Packs/Day Years Used Date Smoking Tobacco: Never Comments Unknown Sex and Gender Information Value Date Recorded Sex Assigned at Not on file Legal Sex Female 11:42 PM POT ROOM TAPPER Gender Identity Not on file Sexual Orientation [...]
--- OUTSIDE RECORDS SUMMARY | 2024-08-28 02:58 | XMS_ITS | Encounter Summary ---
Author Organization [facility] Healthcare Address [address] [place] [address] Care Team Providers Care Forest Fire Equipment Operator Name Role Phone Johnna Tinajero MD Primary Care Provider + Encounter Details Date Type Department Care Team (Late st Contact Info) Description 12/19/2016 2:17 PM CDT - 12/19/2016 11:59 PM CDT Hospital Encounter [facility] [phone] Shola Gamble MD [address] [facility] [address] [place] [address] Discharge Disposition: Discharge to home or self care Social History Tobacco Use Types Packs/Day Years Used Date Smoking Tobacco: Never Comments Unknown Sex and Gender Information Value Date Recorded Sex Assigned at Not on file Legal Sex Female 11:42 PM SASH INSTALLER Gender Identity Not on file Sexual [...] on filedocumented in this encounter Care Teams Forest Fire Equipment Operator Relationship Specialty Start Date End Date Johnna Tinajero MD [address] [address] PCP - General 12/17/16 07/18/19 documented as of this encounter
--- OUTSIDE RECORDS SUMMARY | 2024-08-28 02:58 | XMS_ITS | Encounter Summary ---
Author Organization [facility] Address [address] [place] [address] [address] [place] [address] Phone Care Team Providers Care Agricultural Crop Farm Manager Name Role Phone Johnna Tinajero MD Primary Care Provider + Encounter Details Date Type Department Care Team (Late st Contact Info) Description 10/20/2018 Telephone [facility] [address] [facility] [address] [place] [address] Johnna Tinajero MD [facility] [address] [place] [address] Social History Tobacco Use Types Packs/Day Years Used Date Smoking Tobacco: Never Comments Unknown Sex and Gender Information Value Date Recorded Sex Assigned at Not on file Legal Sex Female 11:42 PM YARDING AND FOLDING MACHINE OPERATOR Gender Identity Not on file Sexual Orientation Not on file documented as of this encounter Miscellaneous Notes * Telephone Encounter - Aileen Garcia - 10/20/2018 1:45 PM CST PHONE CALL TO MOTHER TO REMIND TO TAKE NINA TO LAB FOR BLOOD WORK. ING AND FOLDING MACHINE OPERATOR * Telephone Encounter - Aileen Garcia - 10/20/2018 1:45 PM CST ----- Message from Johnna Tinajero MD sent at 10/19/2018 3:05 PM YARDING AND FOLDING MACHINE OPERATOR ----- Please remind family to take for her Vitamin D level ING AND FOLDING MACHINE OPERATOR documented in this encounter Plan of Treatment Not on file documented as of this encounter Visit Diagnoses Not on filedocumented in this encounter Care Teams Agricultural Crop Farm Manager Relationship Specialty Start Date End Date Johnna Tinajero MD [address] [address] PCP - General 12/17/16 07/18/19 documented as of this encounter
--- OUTSIDE RECORDS SUMMARY | 2024-08-28 02:58 | XMS_ITS | Encounter Summary ---
Author Organization [facility] Address [address] [place] [address] [address] [place] [address] Phone Care Team Providers Care Angular Js Developer Name Role Phone Johnna Tinajero MD Primary Care Provider + Encounter Details Date Type Department Care Team (Late st Contact Info) Description 06/30/2019 Telephone [facility] [address] [facility] [address] [place] [address] Johnna Tinajero MD [facility] [address] [place] [address] Social History Tobacco Use Types Packs/Day Years Used Date Smoking Tobacco: Never PHQ-2 Answer Date Recorded PHQ-2 Score 4 06/28/2019 Comments Unknown Sex and Gender Information Value Date Recorded Sex Assigned at Not on file Legal Sex Female 11:42 PM RECRUITMENT SPECIALIST Gender Identity Not on file Sexual [...] on filedocumented in this encounter Care Teams Angular Js Developer Relationship Specialty Start Date End Date Johnna Tinajero MD [address] [address] PCP - General 12/17/16 07/18/19 documented as of this encounter
--- OUTSIDE RECORDS SUMMARY | 2024-08-28 02:58 | XMS_ITS | Encounter Summary ---
Author Organization [facility] Facility Care Team Providers Care Boring Mill Set Up Operator Vertical Name Role Phone Unavailable Primary Care Provider Unavailabl e Encounter Details Date Type Department Care Team (Late st Contact Info) Description 12/31/2014 5:33 PM CDT - 01/02/2015 1:12 PM CDT Hospital Encounter [facility] Anguiano, Maggie Nagy MD [address] [place] [address] Other and unspecified ovarian cyst; Asthma; Personal history of allergy to penicillin Social History Tobacco Use Types Packs/Day Years Used Date Smoking Tobacco: Never Assessed Comments Unknown Sex and Gender Information Value Date Recorded Sex Assigned at Not on file Legal Sex Female 11:42 PM CEMENT KILN OPERATOR Gender Identity Not on file Sexual [...] 99.72% 12/31 10:31 PM CDT Growth Chart: [facility] (Girls, 2- 20 Years) documented in this [...] agrees with it. ACC# ??Date Time ??Exam [id number] January 01, 2015 07:29:00 04307A APPENDIX [id number] January 01, 2015 07:29:00 03715 PELVIC SONO CMP EXAMINATION: ? Appendix and [...] agrees with it. ACC# Date Time Exam [id number] January 01, 2015 07:29:00 [id number] APPENDIX [id number] January 01, 2015 07:29:00 06811 PELVIC SONO CMP EXAMINATION: Appendix and Pelvic [...] agrees with it. ACC# ??Date Time ??Exam [id number] January 01, 2015 07:29:00 [id number] APPENDIX [id number] January 01, 2015 07:29:00 [id number] PELVIC SONO CMP EXAMINATION: ? Appendix and [...] agrees with it. ACC# Date Time Exam [id number] January 01, 2015 07:29:00 [id number] APPENDIX [id number] January 01, 2015 07:29:00 [id number] PELVIC SONO CMP EXAMINATION: Appendix and Pelvic [...] ORDERABLES Neris l Result Performing Organization Address [facility] de Phone Number HISTORICAL RESULTS * [...] specimen (specimen) 12/31/2014 7:39 PM CDT Result [facility] Historical Provider LAB BLOOD ORDERABLES Neris rick Result Performing Organization Address [facility] de Phone Number HISTORICAL RESULTS * Urine chorionic gonadotropin (HCG) (12/31/2014 7:36 PM CDT) HCG, ur Negative Negative HISTORICAL RESULTS Urine 12/31/2014 7:36 PM CDT Result [facility] Historical Provider LAB BLOOD ORDERABLES Neris rick Result Performing Organization Address [facility] de Phone Number HISTORICAL RESULTS * [...] RESULTS Urine 12/31/2014 7:36 PM CDT Result [facility] Historical Provider LAB BLOOD ORDERABLES Neris rick Result Performing Organization Address [facility] de Phone Number HISTORICAL RESULTS * Urine microscopy (12/31/2014 7:36 PM CDT) RBC, ur None Seen None Seen HISTORICAL RESULTS WBC, ur None Seen None Seen HISTORICAL RESULTS Epithelial cells, renal, ur None Seen None Seen HISTORICAL RESULTS Epithelial cells, squamous, ur < 5/HPF HISTORICAL RESULTS Urine 12/31/2014 7:36 PM CDT Result [facility] Historical Provider LAB BLOOD ORDERABLES Neris rick Result HISTORICAL RESULTS documented in this encounter Visit Diagnoses Diagnosis Other and unspecified ovarian cyst Asthma Unspecified asthma Personal history of allergy to penicillin documented in this encounter
--- OUTSIDE RECORDS SUMMARY | 2024-08-28 02:58 | XMS_ITS | Encounter Summary ---
Author Organization [facility] Address [address] [place] [address] [address] [place] [address] Phone Care Team Providers Care Traffic Court Magistrate Name Role Phone Johnna De La Cruz MD Primary Care Provider + Johnna De La Cruz MD Unavailable [phone] Encounter Details Date Type Department Care Team (Late st Contact Info) Description 07/19/2019 Telephone [facility] [address] [place] [address] Johnna De La Cruz MD [address] [place] [address] Social History Tobacco Use Types Packs/Day Years Used Date Smoking Tobacco: Never PHQ-2 Answer Date Recorded PHQ-2 Score 4 06/28/2019 Comments No Sex and Gender Information Value Date Recorded Sex Assigned at Not on file Legal Sex Female 11:42 PM ACCOUNTANT MACHINE PROCESSING Gender Identity Not on file Sexual Orientation [...] MOM I THINK SHE SHOULD GO TO [facility] ER TO INFORM PATIENT WAS COMING AND TO CALL DR DE LA CRUZ WITH REPORT OF PATIENT. UNTANT MACHINE PROCESSING documented in this encounter Plan of Treatment Not on file documented as of this encounter Visit Diagnoses Not on filedocumented in this encounter Care Teams Traffic Court Magistrate Relationship Specialty Start Date End Date Johnna De La Cruz MD [address] [address] PCP - General Pediatrics 07/19/19 01/26/23 Johnna De La Cruz MD [address] [facility] [address] [place] [address] 07/19/19 documented as of this encounter
--- OUTSIDE RECORDS SUMMARY | 2024-08-28 02:58 | XMS_ITS | Encounter Summary ---
Author Organization [facility] Facility Care Team Providers Care Drapery Estimator Name Role Phone Unavailable Primary Care Provider Unavailabl e Encounter Details Date Type Department Care Team (Latest Contact Info) Description 08/22/2013 1:04 PM BRACELET FORMER - 08/22/2013 11:59 PM BRACELET FORMER Hospital [facility] Pain in joint, forearm Social History Tobacco Use Types Packs/Day Years Used Date Smoking Tobacco: Never Assessed Comments Unknown Sex and Gender Information Value Date Recorded Sex Assigned at Not on file Legal Sex Female 11:42 PM BRACELET FORMER Gender Identity Not on file Sexual Orientation Not on file documented as of this encounter Plan of Treatment Not on file documented as of this encounter Procedures Procedure Name Priority Date/Time Associated Diagnosis Comments MRI UPPER EXTREMITY JOINT WO CONTRAST Routine 08/22/2013 2:44 PM BRACELET FORMER documented in this encounter Results * MRI Upper Extremity Joint WO Contrast (08/22/2013 2:44 PM BRACELET FORMER) Anatomical Region Laterality Modality Upper Extremities N/A Magnetic Reson ance 08/22/2013 2:44 PM BRACELET FORMER Narrative 08/22/2013 3:31 PM BRACELET FORMER MILAGROS ANTHONY M.D. ROBERT CAMACHO M.D. FINAL REPORT The radiology attending physician has personally reviewed this study, and has reviewed and/or edited this written report and agrees with it. ACC# ??Date Time ??Exam [id number] Aug 22, 2013 14:44:00 [id number] MRI WRIST WO R EXAMINATION: ?MR study [...] agrees with it. ACC# Date Time Exam [id number] Aug 22, 2013 14:44:00 [id number] MRI WRIST WO R EXAMINATION: MR study [...] By: RY CHAIDEZ M.D. Dictated By: ROBERT CAMACHO M.D. on Aug 22 2013 3:17P This document has been electronically signed by: MILAGROS ANTHONY M.D. on Aug 22 2013 3:31P us Historical Provider MD [facility] MRI PROCEDURES Final Result documented in this encounter Visit Diagnoses Diagnosis Pain in joint, forearm documented in this encounter
--- OUTSIDE RECORDS SUMMARY | 2024-08-28 02:58 | XMS_ITS | Encounter Summary ---
Author Organization [facility] Facility Care Team Providers Care Manufacturing Test Technician Name Role Phone Unavailable Primary Care Provider Unavailabl e Encounter Details Date Type Department Care Team (Latest Contact Info) Description 11/17/2013 12:56 PM CDT - 11/17/2013 11:59 PM CDT Hospital Encounter [facility] Pain in joint, forearm Social History Tobacco Use Types Packs/Day Years Used Date Smoking Tobacco: Never Assessed Comments Unknown Sex and Gender Information Value Date Recorded Sex Assigned at Not on file Legal Sex Female 11:42 PM TRUCK WASHER Gender Identity Not on file Sexual [...] agrees with it. ACC# ??Date Time ??Exam [id number] Nov 17, 2013 13:02:00 [id number] WRIST 2V R [id number] Nov 17, 2013 13:02:00 47209 WRIST 2V L EXAMINATION: ? 1. Left [...] agrees with it. ACC# Date Time Exam [id number] Nov 17, 2013 13:02:00 10951 WRIST 2V R [id number] Nov 17, 2013 13:02:00 26090 WRIST 2V L EXAMINATION: 1. Left wrist [...] agrees with it. ACC# ??Date Time ??Exam [id number] Nov 17, 2013 13:02:00 04388 WRIST 2V R [id number] Nov 17, 2013 13:02:00 14857 WRIST 2V L EXAMINATION: ? 1. Left [...] agrees with it. ACC# Date Time Exam [id number] Nov 17, 2013 13:02:00 94876 WRIST 2V R [id number] Nov 17, 2013 13:02:00 02449 WRIST 2V L EXAMINATION: 1. Left wrist [...]
--- OUTSIDE RECORDS SUMMARY | 2024-08-28 02:58 | XMS_ITS | Encounter Summary ---
Author Organization [facility] Facility Care Team Providers Care Color Expert Name Role Phone Johnna Tinajero MD Primary Care Provider + Johnna Tinajero MD Unavailable [phone] Encounter Details Date Type Department Care Team (Latest Contact Info) Description 07/19/2019 Travel Social History Tobacco Use Types Packs/Day Years Used Date Smoking Tobacco: Never PHQ-2 Answer Date Recorded PHQ-2 Score 4 06/28/2019 Comments No Sex and Gender Information Value Date Recorded Sex Assigned at Not on file Legal Sex Female 11:42 PM FURNITURE DIPPER Gender Identity Not on file Sexual Orientation Not on file documented as of this encounter Plan of Treatment Not on file documented as of this encounter Visit Diagnoses Not on filedocumented in this encounter Care Teams Color Expert Relationship Specialty Start Date End Date Johnna Tinajero MD [address] [address] PCP - General Pediatrics 07/19/19 01/26/23 Johnna Tinajero MD [address] [address] 07/19/19 documented as of this encounter
--- OUTSIDE RECORDS SUMMARY | 2024-08-28 02:58 | XMS_ITS | Encounter Summary ---
Author Organization [facility] Facility Care Team Providers Care Engineering Operations Leader Name Role Phone Unavailable Primary Care Provider Unavailabl e Encounter Details Date Type Department Care Team (Late st Contact Info) Description 02/09/2015 1:28 PM CDT - 02/09/2015 11:59 PM CDT Hospital Encounter [facility] Lila Stovall MD [address] [place] [address] Other and unspecified ovarian cyst Social History Tobacco Use Types Packs/Day Years Used Date Smoking Tobacco: Never Assessed Comments Unknown Sex and Gender Information Value Date Recorded Sex Assigned at Not on file Legal Sex Female 11:42 PM INFORMATION ASSISTANT Gender Identity Not on file Sexual [...] agrees with it. ACC# ??Date Time ??Exam [id number] Feb 09, 2015 14:13:00 92364 PELVIC SONO CMP [id number] Feb 09, 2015 14:13:00 87097 SONO ABD COMPLT ACC# ??Date Time ??Exam [id number] Feb 09, 2015 14:13:00 07521 PELVIC SONO CMP [id number] Feb 09, 2015 14:13:00 02665 SONO ABD COMPLT EXAMINATION: ?Abdominal and Pelvic [...] agrees with it. ACC# Date Time Exam [id number] Feb 09, 2015 14:13:00 84998 PELVIC SONO CMP [id number] Feb 09, 2015 14:13:00 70505 SONO ABD COMPLT ACC# Date Time Exam [id number] Feb 09, 2015 14:13:00 50073 PELVIC SONO CMP [id number] Feb 09, 2015 14:13:00 12400 SONO ABD COMPLT EXAMINATION: Abdominal and Pelvic [...] agrees with it. ACC# ??Date Time ??Exam [id number] Feb 09, 2015 14:13:00 37144 PELVIC SONO CMP [id number] Feb 09, 2015 14:13:00 38024 SONO ABD COMPLT ACC# ??Date Time ??Exam [id number] Feb 09, 2015 14:13:00 19617 PELVIC SONO CMP [id number] Feb 09, 2015 14:13:00 20763 SONO ABD COMPLT EXAMINATION: ?Abdominal and Pelvic [...] agrees with it. ACC# Date Time Exam [id number] Feb 09, 2015 14:13:00 55620 PELVIC SONO CMP [id number] Feb 09, 2015 14:13:00 60418 SONO ABD COMPLT ACC# Date Time Exam [id number] Feb 09, 2015 14:13:00 44583 PELVIC SONO CMP [id number] Feb 09, 2015 14:13:00 82911 SONO ABD COMPLT EXAMINATION: Abdominal and Pelvic [...]
--- OUTSIDE RECORDS SUMMARY | 2024-08-28 02:58 | XMS_ITS | Encounter Summary ---
Author Organization [facility] Healthcare Address [address] [place] [address] Care Team Providers Care Value Stream Manager Name Role Phone Johnna Tinajero MD Primary Care Provider + Reason for Referral * Diagnostic Imaging (Routine) - Closed Specialty Diagnoses / Procedures Referred By Contac t Referred To Contact Diagnoses Acute right lower quadrant pain Procedures US Pelvis Complete Cecilia Owen MD Phone: tel: fax: [address] [phone] Referral ID Status Reason Start Date Expiration Date Visits Re quested Visits Authorized [id number] Closed 02/17/2018 08/29/2019 1 1 * Diagnostic Imaging (Routine) - Closed Specialty Diagnoses / Procedures Referred By Contac t Referred To Contact Diagnoses Acute right lower quadrant pain Procedures US Appendix Cecilia Owen MD Phone: tel: fax: [address] [phone] Referral ID Status Reason Start Date Expiration Date Visits Re quested Visits Authorized [id number] Closed 02/17/2018 08/29/2019 1 1 Reason for Visit * Diagnostic Imaging (Routine) - Closed Specialty Diagnoses / Procedures Referred By Contac t Referred To Contact Diagnoses Acute right lower quadrant pain Procedures US Appendix Cecilia Owen MD Phone: tel: fax: [facility] [address] [place] [address] Referral ID Status Reason Start Date Expiration Date Visits Re quested Visits Authorized [id number] Closed 02/17/2018 08/29/2019 1 1 Encounter Details Date Type Department Care Team (Latest Contact Info) Description 02/17/2018 12:13 PM CDT - 02/17/2018 11:59 PM CDT Hospital Encounter [facility] [place] [address] Cecilia Owen MD [address] [id number] Acute right lower quadrant pain Discharge Disposition: Discharge to home or self care Social History Tobacco Use Types Packs/Day Years Used Date Smoking Tobacco: Never Comments Unknown Sex and Gender Information Value Date Recorded Sex Assigned at Not on file Legal Sex Female 11:42 PM REINSURANCE ACCOUNTANT Gender Identity Not on file Sexual Orientation [...] pain documented in this encounter Care Teams Value Stream Manager Relationship Specialty Start Date End Date Johnna Tinajero MD [address] [place] [address] PCP - General 12/17/16 07/18/19 documented as of this encounter
--- OUTSIDE RECORDS SUMMARY | 2024-08-28 02:58 | XMS_ITS | Encounter Summary ---
Author Organization [facility] Facility Care Team Providers Care Sourcing Internship Name Role Phone Unavailable Primary Care Provider Unavailabl e Encounter Details Date Type Department Care Team (Late st Contact Info) Description 12/06/2015 11:11 AM CDT - 12/06/2015 11:59 PM CDT [facility] [address] [place] [address] Other forms of scoliosis, thoracolumbar region Social History Tobacco Use Types Packs/Day Years Used Date Smoking Tobacco: Never Assessed Comments Unknown Sex and Gender Information Value Date Recorded Sex Assigned at Not on file Legal Sex Female 11:42 PM CAPACITY ANALYST Gender Identity Not on file Sexual [...] agrees with it. ACC# ??Date Time ??Exam [id number] Dec 06, 2015 11:39:00 34368 TSPINE 2 VIEWS [id number] Dec 06, 2015 11:39:00 76913 LSPINE 2 OR 3 VIEWS EXAMINATION: ? [...] agrees with it. ACC# Date Time Exam [id number] Dec 06, 2015 11:39:00 59448 TSPINE 2 VIEWS [id number] Dec 06, 2015 11:39:00 83971 LSPINE 2 OR 3 VIEWS EXAMINATION: Thoracic [...] DE LA CRUZ M.D. Dictated By: SHAHLA SHCWARZ M.D. on Dec 06 2015 11:42A This [...] agrees with it. ACC# ??Date Time ??Exam [id number] Dec 06, 2015 11:39:00 47866 TSPINE 2 VIEWS [id number] Dec 06, 2015 11:39:00 57164 LSPINE 2 OR 3 VIEWS EXAMINATION: ? [...] agrees with it. ACC# Date Time Exam [id number] Dec 06, 2015 11:39:00 64702 TSPINE 2 VIEWS [id number] Dec 06, 2015 11:39:00 91410 LSPINE 2 OR 3 VIEWS EXAMINATION: Thoracic [...]
--- OUTSIDE RECORDS SUMMARY | 2024-08-28 02:58 | XMS_ITS | Encounter Summary ---
Author Organization [facility] Facility Care Team Providers Care Fire Alarm Dispatcher Name Role Phone Unavailable Primary Care Provider Unavailabl e Encounter Details Date Type Department Care Team (Late st Contact Info) Description 05/17/2014 5:52 AM CDT - 05/18/2014 1:00 PM CDT Hospital Encounter [facility] Johnna Hoffman MD [address] [place] [address] Asthma with exacerbation; Allergic rhinitis; Personal history of allergy to penicillin Social History Tobacco Use Types Packs/Day Years Used Date Smoking Tobacco: Never Assessed Comments Unknown Sex and Gender Information Value Date Recorded Sex Assigned at Not on file Legal Sex Female 11:42 PM BURSAR Gender Identity Not on file Sexual Orientation [...] 05/17/2014 5:5 2 AM CDT Growth Chart: [facility] (Girls, 2- 20 [...] RESULTS - 05/19/2014 7:33 AM CDT ? [facility] ?Clinical Laboratories ? [address] ? [place] [address] Patient Name: ? [facility] Rec Number: ?? [id number] Fin Number: ? [id number] Date: ? 2000 Sex/Age: ?Female 14 years Admit Date: ? 05/17/2014 Discharge Date: ?? 05/18/2014 Doctor: ? Johnna Tinajero Referring Doctor: None, Referring Facility: ? [facility] Location: ? 8W 8W25 B Chart Printed: [...] * ??Interpretive Results ??* * * (1)The FDTEK (formerly known as [employer]) FilmArray Respiratory Panel (RP) assay is a [...] FilmArray RP assay is FDA cleared for TESTBOARD OPERATOR swabs. ??Additional sample types have been validated according to CLIA regulations. ??The performance characteristics of this assay have been determined by [facility].Current interpretive data was last revised on 2013. us Historical Provider LAB BLOOD ORDERABLES Neris rick Result HISTORICAL RESULTS * Respiratory Pathogen Multiplex PCR (05/17/2014 12:51 AM CDT) Nasopharyngeal (Unknown) 05/17/2014 12:51 AM CDT 05/17/2014 12:58 AM CDT Impressions HISTORICAL RESULTS - 05/17/2014 3:48 AM CDT The [employer]TEK (formerly known as [employer]) FilmArray Respiratory Panel (RP) assay is a [...] FilmArray RP assay is FDA cleared for TESTBOARD OPERATOR swabs. ??Additional sample types have been validated according to CLIA regulations. ??The performance characteristics of this assay have been determined by [facility] Virology Lab. Current interpretive data was last revised on 2013. Narrative HISTORICAL RESULTS - 05/17/2014 3:48 AM CDT Respiratory Pathogen nucleic acids NOT DETECTED (NEGATIVE) us Historical Provider MD LAB MICROBIOLOGY - GENERA L ORDERABLES Final Result HISTORICAL RESULTS * All Microbiology Report Section (05/17/2014 12:00 AM CDT) 05/17/2014 Narrative HISTORICAL RESULTS - 05/17/2014 6:30 AM CDT ?[facility] ? Clinical Laboratories ?[address] ?[place] [address] ? Patient Name: ? NINA BAUTISTA ? Med Rec Number: ? [id number] ? Fin Number: ? [id number] ? Date: ? 2000 ? Sex/Age: ?Female 14 years ? Admit Date: ? 05/16/2014 ? Discharge Date: ? Doctor: ? Johnna Tinajero ? Facility: ? [facility] ? Location: ? 8W 8W25 B ? [...] ??Interpretive Results ??* * * ? (1)The [employer]TEK (formerly known as [employer]) ? FilmArray Respiratory Panel (RP) assay is [...] FilmArray RP assay is FDA cleared for TESTBOARD OPERATOR ? swabs. ??Additional sample types have been validated according to ? CLIA regulations. ??The performance characteristics of this assay ? have been determined by [facility]rology ? Lab.Current interpretive data was last revised on 2013. ? us Historical Provider LAB MICROBIOLOGY - GENERA L ORDERABLES Final Result HISTORICAL RESULTS documented in this encounter Visit Diagnoses Diagnosis Asthma with exacerbation Unspecified asthma, with exacerbation Allergic rhinitis Allergic rhinitis, cause unspecified Personal history of allergy to penicillin documented in this encounter
--- OUTSIDE RECORDS SUMMARY | 2024-08-28 02:58 | XMS_ITS | Encounter Summary ---
Author Organization [facility] Address [address] [place] [address] [address] [place] [address] Phone Care Team Providers Care Salesperson Floor Coverings Name Role Phone Johnna Tinajero MD Primary Care Provider + Encounter Details Date Type Department Care Team (Late st Contact Info) Description 02/17/2019 Telephone [facility] [address] [facility] [address] [place] [address] Johnna Tinajero MD [address] [place] [address] [address] [place] [address] Social History Tobacco Use Types Packs/Day Years Used Date Smoking Tobacco: Never Comments Unknown Sex and Gender Information Value Date Recorded Sex Assigned at Not on file Legal Sex Female 11:42 PM SHOT BLASTER Gender Identity Not on file Sexual Orientation [...] on filedocumented in this encounter Care Teams Salesperson Floor Coverings Relationship Specialty Start Date End Date Johnna Tinajero MD [address] [address] PCP - General 12/17/16 07/18/19 documented as of this encounter
--- OUTSIDE RECORDS SUMMARY | 2024-08-28 02:58 | XMS_ITS | Encounter Summary ---
Author Organization [facility] Address [address] [place] [address] [address] [place] [address] Phone Care Team Providers Care Charrer Name Role Phone Johnna Tinajero MD Primary Care Provider + Encounter Details Date Type Department Care Team (Late st Contact Info) Description 07/13/2019 Telephone [facility] [address] [facility] [address] [place] [address] Johnna Tinajero MD [address] [place] [address] [address] [place] [address] Social History Tobacco Use Types Packs/Day Years Used Date Smoking Tobacco: Never PHQ-2 Answer Date Recorded PHQ-2 Score 4 06/28/2019 Comments Unknown Sex and Gender Information Value Date Recorded Sex Assigned at Not on file Legal Sex Female 11:42 PM EMERGENCY DEPARTMENT TECHNICIAN Gender Identity Not on file Sexual [...] base. They will CB sooner if needed. GENCY DEPARTMENT TECHNICIAN * Telephone Encounter - Madyson Roberts - 07/13/2019 3:35 PM CST ----- Message from Basilia Dillard RN sent at 06/29/2019 8:17 AM CDT ----- Contact: GLENDA CB 07/12/19. Started Celexa dose OK? Any side effects? If no relief to symptoms, can increase to20 mg. Seeing therapy, PHQ-9 17, SCRD 51. F/U with PCP 08/02/19. GENCY DEPARTMENT TECHNICIAN documented in this encounter Plan of Treatment Not on file documented as of this encounter Visit Diagnoses Not on filedocumented in this encounter Discontinued Medications Medication Sig Discontinue Reason Start Date End Da te citalopram (CeleXA) 10 mg tabletIndications:Anxiet y and depression Take 1 tablet (10 mg total) by mouth daily 06/28/2019 07/13/2019 documented as of this encounter Care Teams Charrer Relationship Specialty Start Date End Date Johnna Tinajero MD [address] [id number] PCP - General 12/17/16 07/18/19 documented as of this encounter
--- OUTSIDE RECORDS SUMMARY | 2024-08-28 02:58 | XMS_ITS | Encounter Summary ---
Author Organization [facility] Address [address] [place] [address] [address] [place] [address] Phone Care Team Providers Care Enterprise Application Developer Name Role Phone Johnna Tinajero MD Primary Care Provider + Reason for Visit * Reason Comments Anxiety/Depression Encounter Details Date Type Department Care Team (Late st Contact Info) Description 06/28/2019 10:00 AM CDT Office Visit [facility] [address] [facility] [address] [place] [address] Johnna Tinajreo MD [address] [place] [address] [address] [place] [address] Anxiety and depression (Primary Dx) Social History Tobacco Use Types Packs/Day Years Used Date Smoking Tobacco: Never PHQ-2 Answer Date Recorded PHQ-2 Score 4 06/28/2019 Comments Unknown Sex and Gender Information Value Date Recorded Sex Assigned at Not on file Legal Sex Female 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 Saw Dr. Min, commissary agent this summer for irregular menses, did the [...] 9 added in this encounter Care Teams Enterprise Application Developer Relationship Specialty Start Date End Date Johnna Tinajero MD [address] [place] [id number] PCP - General 12/17/16 07/18/19 documented as of this encounter
--- OUTSIDE RECORDS SUMMARY | 2024-08-28 02:58 | XMS_ITS | Encounter Summary ---
Author Organization [facility] Address [facility] [facility] [address] [place] [address] Phone Care Team Providers Care Powder Blender Name Role Phone Johnna Tinajero MD Primary Care Provider + Encounter Details Date Type Department Care Team (Late st Contact Info) Description 07/18/2019 Telephone [facility] [address] [facility] [address] [place] [address] Johnna Tinajero MD [facility] [facility] [address] [place] [address] Social History Tobacco Use Types Packs/Day Years Used Date Smoking Tobacco: Never PHQ-2 Answer Date Recorded PHQ-2 Score 4 06/28/2019 Comments Unknown Sex and Gender Information Value Date Recorded Sex Assigned at Not on file 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 Faxed to [facility] [phone]. DRIVER documented in this encounter Plan of Treatment Not on file documented as of this encounter Visit Diagnoses Not on filedocumented in this encounter Care Teams Powder Blender Relationship Specialty Start Date End Date Johnna Tinajero MD [address] [address] PCP - General 12/17/16 07/18/19 documented as of this encounter
--- OUTSIDE RECORDS SUMMARY | 2024-08-28 02:58 | XMS_ITS | Encounter Summary ---
Author Organization [facility] Facility Care Team Providers Care Robotics Systems Engineer Name Role Phone Unavailable Primary Care Provider Unavailabl e Encounter Details Date Type Department Care Team (Latest Contact Info) Description 06/19/2014 10:42 PM CDT - 06/20/2014 2:19 AM CDT Hospital Encounter [facility] Mckenna Mendoza MD [address] [place] [address] Headache; Visual disturbance; Asthma Social History Tobacco Use Types Packs/Day Years Used Date Smoking Tobacco: Never Assessed Comments Unknown Sex and Gender Information Value Date Recorded Sex Assigned at Not on file 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
--- OUTSIDE RECORDS SUMMARY | 2024-08-28 02:58 | XMS_ITS | Encounter Summary ---
Author Organization [facility] Healthcare Address [address] [place] [address] Care Team Providers Care Recreation Facility Manager Name Role Phone Johnna Tinajero MD Primary Care Provider + Encounter Details Date Type Department Care Team (Latest Contact Info) Description 12/23/2016 11:56 AM CDT - 12/23/2016 11:59 PM CDT Hospital Encounter [facility] [phone] Cecilia Owen MD [address] [address] Discharge Disposition: Discharge to home or self care Social History Tobacco Use Types Packs/Day Years Used Date Smoking Tobacco: Never Comments Unknown Sex and Gender Information Value Date Recorded Sex Assigned at Not on file Legal Sex Female 11:42 PM ACTIVITY THERAPY SPECIALIST Gender Identity Not on file Sexual [...] agrees with it. ACC# ??Date Time ??Exam [id number] Dec 23, 2016 12:43:00 60615 MRI BRAIN W WO CONTRAST EXAMINATION: ?? [...] this written report and agrees with it. [facility]# Date Time Exam [id number] Dec 23, 2016 12:43:00 48521 MRI BRAIN W WO CONTRAST EXAMINATION: Magnetic [...] on filedocumented in this encounter Care Teams Recreation Facility Manager Relationship Specialty Start Date End Date Johnna Tinajero MD [address] [address] PCP - General 12/17/16 07/18/19 documented as of this encounter
--- OUTSIDE RECORDS SUMMARY | 2024-08-28 02:58 | XMS_ITS | Encounter Summary ---
Author Organization [facility] Address [address] [place] [address] [address] [place] [address] Phone Care Team Providers Care Chief Communications Officer Name Role Phone Johnna Tinajero MD Primary Care Provider + Encounter Details Date Type Department Care Team (Late st Contact Info) Description 04/18/2019 Telephone [facility] [address] 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 Placed orders to have CMP e-drawn. Mom aware at [facility]. ----- Message from Johnna Tinajero MD sent [...] to elevated LFT done in 01/2019 at [facility]. ALT was 26. Any follow-up? documented [...] Agency Comment Performing Organization Information: ?Site ID: [id number] ?Name: [facility] ?Address: [address] [place], [place] [address]al[place] [address] ?Director: Viktor Landry D.O., MPH us Johnna Tinajero MD LAB BLOOD ORDERABLES Fin al Result Performing Organization Address City/State/[facility] Co de Phone Number [facility] documented in this encounter Visit Diagnoses Diagnosis Elevated transaminase level- Primary documented in this encounter Care Teams Chief Communications Officer Relationship Specialty Start Date End Date Johnna Tinajero MD [address] [address] PCP - General 12/17/16 07/18/19 documented as of this encounter
--- OUTSIDE RECORDS SUMMARY | 2024-08-28 02:58 | XMS_ITS | Encounter Summary ---
Author Organization [facility] Facility Care Team Providers Care Day Care Teacher Name Role Phone Unavailable Primary Care Provider Unavailabl e Encounter Details Date Type Department Care Team (Late st Contact Info) Description 05/16/2015 9:59 AM CDT - 05/16/2015 4:00 PM CDT Hospital Encounter [facility] [place] [address] [place] [address] Articular cartilage disorder, forearm; Asthma; Allergic rhinitis Social History Tobacco Use Types Packs/Day Years Used Date Smoking Tobacco: Never Assessed Comments Unknown Sex and Gender Information Value Date Recorded Sex Assigned at Not on file 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 Surgeon: Shashank Connor M.D. Dictating: Shashank Connor M.D. Service Dt: 05/16/2015 OPERATIVE REPORT FIRST BUCKET HOOKER: Talat Hernandez M.D. ANESTHESIA: General plus block. [...] The patient's arm was placed in a [facility] traction tower with 10 pounds of traction [...] M.D. 05/17/2015 12:49 P Shashank Connor M.D. [facility] #[id number] Editing MT: TD: 05/17/2015 04:53:00 cc: Orthopedic [...]
--- OUTSIDE RECORDS SUMMARY | 2024-08-28 02:58 | XMS_ITS | Encounter Summary ---
Author Organization [facility] Facility Care Team Providers Care Director Of Music Name Role Phone Unavailable Primary Care Provider Unavailabl e Encounter Details Date Type Department Care Team (Late st Contact Info) Description 09/07/2016 1:26 PM INSERT OPERATOR - 09/07/2016 6:03 PM INSERT OPERATOR Hospital Encounter [facility] Zena Forrester MD [address] [facility] [address] [place] [address] Carolee Mckee MD [facility] [address] [facility] [address] [place] [address] Moderate persistent asthma with exacerbation Social History Tobacco Use Types Packs/Day Years Used Date Smoking Tobacco: Never Comments Unknown Sex and Gender Information Value Date Recorded Sex Assigned at Not on file Legal Sex Female 11:42 PM INSERT OPERATOR Gender Identity Not on file Sexual [...]
--- OUTSIDE RECORDS SUMMARY | 2024-08-28 02:58 | XMS_ITS | Encounter Summary ---
Author Organization [facility] Facility Care Team Providers Care Pressure Control Supervisor Name Role Phone Unavailable Primary Care Provider Unavailabl e Encounter Details Date Type Department Care Team (Late st Contact Info) Description 11/05/2015 4:52 PM SERVICING MANAGER - 11/06/2015 6:35 PM SERVICING MANAGER Hospital Encounter [facility] Kalie Palomino MD [facility] [address] [place] [id number] Moderate persistent asthma with status asthmaticus; Acute [...] on file Legal Sex Female 11:42 PM SERVICING MANAGER Gender Identity Not on file Sexual Orientation Not on file documented as of this encounter Last Filed Vital Signs Vital Sign Reading Time Taken Comments Blood Pressure 101/69 11/06/2015 7:50 AM SERVICING MANAGER Pulse 102 11/06/2015 6:08 PM SERVICING MANAGER Temperature - - Respiratory Rate - - Oxygen Saturation 98% 11/06/2015 7:50 AM SERVICING MANAGER Inhaled Oxygen Concentration - - Weight 101.2 kg (223 lb 1.7 oz) 016 11:20 PM SERVICING MANAGER Height 160 cm (5' 2.99 ) 11/05/2015 11: 20 PM SERVICING MANAGER Body Mass Index 39.53 11/05/2015 11:20 PM SERVICING MANAGER Body Mass Index Percentile 99.86% 11/04 11:20 PM SERVICING MANAGER Growth Chart: [facility] (Girls, 2- 20 Years) documented in this encounter Plan of Treatment Not on file documented as of this encounter Procedures Procedure Name Priority Date/Time Associated Diagnosis Comments DISCHARGE LABORATORY CUMULATIVE REPORT 11/06/2015 RESPIRATORY PATHOGEN MULTIPLEX PCR, CDR Routine 11/05/2015 8:23 PM SERVICING MANAGER ALL MICROBIOLOGY REPORT SECTION Routine 11/05/2015 12:00 AM SERVICING MANAGER documented in this encounter Results * DISCHARGE LABORATORY CUMULATIVE REPORT (11/06/2015) Narrative 11/06/2015 Ordered by an unspecified provider. us Historical Provider LAB BLOOD ORDERABLES Neris l Result * Respiratory Pathogen Multiplex PCR (11/05/2015 8:23 PM SERVICING MANAGER) Nasopharyngeal (Unknown) 11/05/2015 8:23 PM SERVICING MANAGER 11/05/2015 8:44 PM SERVICING MANAGER Impressions HISTORICAL RESULTS - 11/05/2015 10:10 PM SERVICING MANAGER The [email or web address] (formerly known as [employer]) FilmArray Respiratory Panel (RP) assay is a [...] FilmArray RP assay is FDA cleared for TRIBAL JUDGE swabs. ??Additional sample types have been validated according to CLIA regulations. ??The performance characteristics of this assay have been determined by [facility]. Current interpretive data was last revised on 2013. Narrative HISTORICAL RESULTS - 11/05/2015 10:10 PM SERVICING MANAGER Respiratory Pathogen nucleic acids DETECTED (POSITIVE) for the following: Rhinovirus/Enterovirus us Historical Provider LAB MICROBIOLOGY - GENERA L ORDERABLES Final Result HISTORICAL RESULTS * All Microbiology Report Section (11/05/2015 12:00 AM SERVICING MANAGER) 11/05/2015 Narrative HISTORICAL RESULTS - 11/06/2015 12:12 AM SERVICING MANAGER ?[facility] ? Clinical Laboratories ?[address] ?[place], [place] [address] ? Patient Name: ? NINA BAUTISTA ? Med Rec Number: ? [id number] ? Fin Number: ? [id number] ? Date: ? 2000 ? Sex/Age: ?Female 15 years ? Admit Date: ? 11/05/2015 ? Discharge Date: ? Doctor: ? Physician , [place] ? Facility: ? [facility] ? Location: ? 7E 7E10 B [...] ??Interpretive Results ??* * * ? (1)The [email or web address] (formerly known as [employer]) ? FilmArray Respiratory Panel (RP) assay is [...] FilmArray RP assay is FDA cleared for TRIBAL JUDGE ? swabs. ??Additional sample types have been validated according to ? CLIA regulations. ??The performance characteristics of this assay ? have been determined by [facility] ? Lab.Current interpretive data was last [...]
--- OUTSIDE RECORDS SUMMARY | 2024-08-28 02:58 | XMS_ITS | Encounter Summary ---
Author Organization [facility] Clinical [facility] Address [address] [place] [address] Phone Care Team Providers Care Card Sorter Name Role Phone Johnna Tinajero MD Primary Care Provider + Reason for Referral * Diagnostic Imaging (Routine) - Closed Specialty Diagnoses / Procedures Referred By Contac t Referred To Contact Diagnoses Acute right lower quadrant pain Procedures US Appendix Cecilia Owen MD Phone: tel: fax: [address] [phone] Referral ID Status Reason Start Date Expiration Date Visits Re quested Visits Authorized [id number] Closed 02/17/2018 08/29/2019 1 1 * Diagnostic Imaging (Routine) - Closed Specialty Diagnoses / Procedures Referred By Contac t Referred To Contact Diagnoses Acute right lower quadrant pain Procedures US Pelvis Complete Cecilia Owen MD Phone: tel: fax: [address] [phone] Referral ID Status Reason Start Date Expiration Date Visits Re quested Visits Authorized [id number] Closed 02/17/2018 08/29/2019 1 1 Reason for Visit * Reason Comments Abdominal Pain x 4 days Headache off and on x 4 days Encounter Details Date Type Department Care Team (Late st Contact Info) Description 02/17/2018 10:30 AM CDT Office Visit [facility] 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 Electronically signed by: Mitzy To M.D. Cceilia Owen MD IM US PROCEDURES Final Result [...] 9 added in this encounter Care Teams Card Sorter Relationship Specialty Start Date End Date Johnna Tinajero MD [address] [address] PCP - General 12/17/16 07/18/19 documented as of this encounter
--- OUTSIDE RECORDS SUMMARY | 2024-08-28 02:59 | XMS_ITS | Encounter Summary ---
Author Organization [facility] Facility Care Team Providers Care Insurance Marketing Rep Name Role Phone Unavailable Primary Care Provider Unavailabl e Encounter Details Date Type Department Care Team (Latest Contact Info) Description 07/04/2013 3:45 PM SERVICE ADMINISTRATOR - 07/04/2013 11:59 PM SERVICE ADMINISTRATOR Hospital Encounter [facility] Johnna De La Cruz MD [address] [place] [address] Other musculoskeletal symptoms referable to limbs Social History Tobacco Use Types Packs/Day Years Used Date Smoking Tobacco: Never Assessed Comments Unknown Sex and Gender Information Value Date Recorded Sex Assigned at Not on file Legal Sex Female 11:42 PM SERVICE ADMINISTRATOR Gender Identity Not on file Sexual Orientation Not on file documented as of this encounter Plan of Treatment Not on file documented as of this encounter Procedures Procedure Name Priority Date/Time Associated Diagnosis Comments XR WRIST 3+ VW Routine 07/04/2013 4:30 PM SERVICE ADMINISTRATOR documented in this encounter Results * XR Wrist 3+ VW (07/04/2013 4:30 PM SERVICE ADMINISTRATOR) Anatomical Region Laterality Modality N/A Radiographic Ria ging 07/04/2013 4:30 PM SERVICE ADMINISTRATOR Narrative 07/04/2013 5:11 PM SERVICE ADMINISTRATOR AGUILAR HOLDEN M.D. ANA HERNANDEZ M.D. FINAL REPORT The radiology attending physician has personally reviewed this study, and has reviewed and/or edited this written report and agrees with it. ACC# ??Date Time ??Exam [id number] Jul 04, 2013 16:30:00 10304 WRIST 3V R EXAMINATION: ?Right wrist 3 [...] agrees with it. ACC# Date Time Exam [id number] Jul 04, 2013 16:30:00 16953 WRIST 3V R EXAMINATION: Right wrist 3 [...]
--- OUTSIDE RECORDS SUMMARY | 2024-08-28 02:59 | XMS_ITS | Encounter Summary ---
Author Organization [facility] Facility Care Team Providers Care Hydrogen Plant Operations Manager Name Role Phone Unavailable Primary Care Provider Unavailabl e Encounter Details Date Type Department Care Team (Late st Contact Info) Description 05/30/2013 2:38 PM CDT - 05/30/2013 11:59 PM CDT [facility] [address] [place] [address] Backache; Accidental fall from bed Social History Tobacco Use Types Packs/Day Years Used Date Smoking Tobacco: Never Assessed Comments Unknown Sex and Gender Information Value Date Recorded Sex Assigned at Not on file Legal Sex Female 11:[address] WORKER Gender Identity Not on file Sexual [...] agrees with it. ACC# ??Date Time ??Exam [id number] May 30, 2013 14:55:00 [id number] TSPINE 2 VIEWS [id number] May 30, 2013 14:55:00 83367 LSPINE 2 OR 3 VIEWS EXAMINATION: ? [...] agrees with it. ACC# Date Time Exam [id number] May 30, 2013 14:55:00 05860 TSPINE 2 VIEWS [id number] May 30, 2013 14:55:00 [id number] LSPINE 2 OR 3 VIEWS EXAMINATION: 1. [...] agrees with it. ACC# ??Date Time ??Exam [id number] May 30, 2013 14:55:00 08768 TSPINE 2 VIEWS [id number] May 30, 2013 14:55:00 76024 LSPINE 2 OR 3 VIEWS EXAMINATION: ? [...] agrees with it. ACC# Date Time Exam [id number] May 30, 2013 14:55:00 94534 TSPINE 2 VIEWS [id number] May 30, 2013 14:55:00 52575 LSPINE 2 OR 3 VIEWS EXAMINATION: 1. [...] DE LA CRUZ M.D. Dictated By: MILADYS HPOPER M.D. on May 30 2013 3:25P This document has been electronically signed by: MILAGROS ANTHONY M.D. on May 30 2013 4:58P Historical Provider MD CARLISLE XR PROCEDURES Final R esult documented in this encounter Visit Diagnoses Diagnosis Backache Unspecified backache Accidental fall from bed documented in this encounter
--- OUTSIDE RECORDS SUMMARY | 2024-08-28 02:59 | XMS_ITS | Encounter Summary ---
Author Organization [facility] Facility Care Team Providers Care Data Entry Supervisor Name Role Phone Unavailable Primary Care Provider Unavailabl e Encounter Details Date Type Department Care Team (Late st Contact Info) Description 09/22/2006 12:37 PM VEST BACKER - 09/23/2006 4:00 PM VEST BACKER Hospital Encounter [facility] Social History Tobacco Use Types Packs/Day Years Used Date Smoking Tobacco: Never Assessed Comments Unknown Sex and Gender Information Value Date Recorded Sex Assigned at Not on file Legal Sex Female 11:42 PM VEST BACKER Gender Identity Not on file Sexual Orientation Not on file documented as of this encounter Plan of Treatment Not on file documented as of this encounter Visit Diagnoses Not on filedocumented in this encounter
--- OUTSIDE RECORDS SUMMARY | 2024-08-28 02:59 | XMS_ITS | Encounter Summary ---
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 FINAL REPORT ACC# ??Date Time ??Exam [id number] January 04, 2013 07:45:00 53325 WRIST 2V R EXAMINATION: ?Two-view right wrist [...] M.D. FINAL REPORT ACC# Date Time Exam [id number] January 04, 2013 07:45:00 [id number] WRIST 2V R EXAMINATION: Two-view right wrist [...]
--- OUTSIDE RECORDS SUMMARY | 2024-08-28 02:59 | XMS_ITS | Encounter Summary ---
Author Organization [facility] Facility Care Team Providers Care Dock Superintendent Name Role Phone Unavailable Primary Care Provider [...] on file Legal Sex Female 11:42 PM CAMERA OPERATOR Gender Identity Not on file Sexual [...]
--- OUTSIDE RECORDS SUMMARY | 2024-08-28 02:59 | XMS_ITS | Encounter Summary ---
Author Organization [facility] Facility Care Team Providers Care Architectural Practice Manager Name Role Phone Unavailable Primary Care Provider Unavailabl e Encounter Details Date Type Department Care Team (Late st Contact Info) Description 10/29/2012 12:26 PM PHYSICAL INSTRUCTOR - 10/29/2012 11:59 PM PHYSICAL INSTRUCTOR Hospital Encounter [facility] [place] [address] [place] [address] Injury, other and unspecified, hand, except finger; Accident Social History Tobacco Use Types Packs/Day Years Used Date Smoking Tobacco: Never Assessed Comments Unknown Sex and Gender Information Value Date Recorded Sex Assigned at Not on file Legal Sex Female 11:42 PM PHYSICAL INSTRUCTOR Gender Identity Not on file Sexual Orientation Not on file documented as of this encounter Plan of Treatment Not on file documented as of this encounter Procedures Procedure Name Priority Date/Time Associated Diagnosis Comments XR HAND 3+ VW Routine 10/29/2012 12:45 PM PHYSICAL INSTRUCTOR documented in this encounter Results * XR Hand 3+ VW (10/29/2012 12:45 PM PHYSICAL INSTRUCTOR) Anatomical Region Laterality Modality N/A Radiographic Ria ging 10/29/2012 12:4 5 PM PHYSICAL INSTRUCTOR Narrative 10/29/2012 12:48 PM PHYSICAL INSTRUCTOR DRAGAN HICKS M.D. FINAL REPORT ACC# ??Date Time ??Exam [id number] Oct 29, 2012 12:45:00 [id number] HAND MINIMUM 3 VIEWS L EXAMINATION: ?Left [...] M.D. FINAL REPORT ACC# Date Time Exam [id number] Oct 29, 2012 12:45:00 [id number] HAND MINIMUM 3 VIEWS L EXAMINATION: Left hand 3 views COMPARISON: None. HISTORY: injury 2/25 impact tender thenar eminence 1st /2nd metacarpal r/o fracture FINDINGS: The bones and soft tissues are normal. IMPRESSION: Normal Requested By: JOHNNA DE LA CRZU M.D. Dictated By: DRAGAN HICKS M.D. on Oct 29 2012 12:48P This document has been electronically signed by: DRAGAN HICKS M.D. on Oct 29 2012 12:48P Historical Provider MD CARLISLE XR PROCEDURES Final R esult documented in this encounter Visit Diagnoses Diagnosis Injury, other and unspecified, hand, except finger Accident Unspecified accident documented in this encounter
--- OUTSIDE RECORDS SUMMARY | 2024-08-28 02:59 | XMS_ITS | Encounter Summary ---
Author Organization [facility] Facility Care Team Providers Care Area Manager Name Role Phone Unavailable Primary Care Provider Unavailabl e Encounter Details Date Type Department Care Team (Late st Contact Info) Description 07/16/2013 11:24 PM SALES OPERATIONS SPECIALIST - 07/22/2013 2:35 PM SALES OPERATIONS SPECIALIST Hospital Encounter [facility] Johnna Tinajero MD [address] [place] [address] Asthma with status asthmaticus; Acute respiratory failure [...] file Legal Sex Female 11:42 PM SALES OPERATIONS SPECIALIST Gender Identity Not on file Sexual Orientation Not on file documented as of this encounter Last Filed Vital Signs Vital Sign Reading Time Taken Comments Blood Pressure 92/58 07/22/2013 4:24 AM SALES OPERATIONS SPECIALIST Pulse 90 07/22/2013 12:22 PM SALES OPERATIONS SPECIALIST Temperature - - Respiratory Rate - - Oxygen Saturation 100% 07/22/2013 11:40 AM SALES OPERATIONS SPECIALIST Inhaled Oxygen Concentration - - Weight 70 kg (154 lb 5.2 oz) 07/16/2013 11:32 PM SALES OPERATIONS SPECIALIST Height - - Body Mass Index 29.16 07/15/2013 8:40 AM SALES OPERATIONS SPECIALIST Body Mass Index Percentile 98.26% 07/16/2013 11: 32 PM SALES OPERATIONS SPECIALIST Growth Chart: CDC (Girls, 2- 20 Years) documented in this encounter Consult Notes * Provider, MD Jesus - 07/17/2013 12:00 AM CST CONSULTATION REPORT NAME: NINA BAUTISTA RECORD NUMBER: [id number] DATE OF CONSULTATION: 07/17/2013 DATE OF : [...] most recently by Dr. Viktor Rock of [facility], and her last visit [...] Primary care provider is Dr. Tinajero of [facility]. PHYSICAL EXAM: Temperature max of 36.9, [...] MD 07/19/2013 08:38 A Ad Horn MD [facility]:ks2 P #[id number] A #[id number] documented in this encounter Plan of Treatment Not on file documented as of this encounter Procedures Procedure Name Priority Date/Time Associated Diagnosis Comments DISCHARGE LABORATORY CUMULATIVE REPORT Routine 07/22/2013 12:00 AM SALES OPERATIONS SPECIALIST SERUM ALLERGIC BRONCHOPULMONARY ASPERGILLOSIS (ABPA), ASPERGILLUS FUMIGATUS, IGE Routine 07/20/2013 1:49 PM SALES OPERATIONS SPECIALIST SERUM ALLERGIC BRONCHOPULMONARY ASPERGILLOSIS (ABPA) CASCADE Routine 07/20/2013 1:49 PM SALES OPERATIONS SPECIALIST PLASMA BASIC METABOLIC PANEL Routine 07/20/2013 6:14 AM SALES OPERATIONS SPECIALIST PLASMA BASIC METABOLIC PANEL Routine 07/19/2013 7:01 AM SALES OPERATIONS SPECIALIST PLASMA BASIC METABOLIC PANEL Routine 07/18/2013 6:13 AM SALES OPERATIONS SPECIALIST BLOOD CELL MORPHOLOGIC EXAM Routine 07/18/2013 6:13 AM SALES OPERATIONS SPECIALIST BLOOD CELL COUNT (CBC) Routine 3 6:13 AM SALES OPERATIONS SPECIALIST BLOOD GLUCOSE, POC Routine 07/18/2013 6: 08 AM SALES OPERATIONS SPECIALIST BLOOD GLUCOSE, POC Routine 07/17/2013 5: 58 PM SALES OPERATIONS SPECIALIST PLASMA COMPREHENSIVE METABOLIC PANEL Routine 07/17/2013 11:54 AM SALES OPERATIONS SPECIALIST BLOOD LACTIC ACID Routine 07/17/2013 11: 54 AM SALES OPERATIONS SPECIALIST BLOOD GLUCOSE Routine 07/17/2013 11:54 AM SALES OPERATIONS SPECIALIST BLOOD GAS, VENOUS Routine 07/17/2013 11: 54 AM SALES OPERATIONS SPECIALIST BLOOD LACTIC ACID Routine 07/17/2013 6:1 6 AM SALES OPERATIONS SPECIALIST BLOOD GAS, VENOUS Routine 07/17/2013 6:1 6 AM SALES OPERATIONS SPECIALIST PLASMA BASIC METABOLIC PANEL Routine 07/17/2013 5:46 AM SALES OPERATIONS SPECIALIST BLOOD LACTIC ACID Routine 07/17/2013 2:0 3 AM SALES OPERATIONS SPECIALIST URINE MICROSCOPY Routine 07/17/2013 1:47 AM SALES OPERATIONS SPECIALIST URINALYSIS Routine 07/17/2013 1:47 AM SALES OPERATIONS SPECIALIST XR CHEST 1 VIEW Routine 07/17/2013 12:54 AM SALES OPERATIONS SPECIALIST BLOOD LACTIC ACID Routine 07/17/2013 12: 43 AM SALES OPERATIONS SPECIALIST BLOOD GAS, VENOUS Routine 07/17/2013 12: 43 AM SALES OPERATIONS SPECIALIST VRE SCREEN, CDR Routine 07/17/2013 12:20 AM SALES OPERATIONS SPECIALIST RESPIRATORY PATHOGEN MULTIPLEX PCR, CDR Routine 07/17/2013 12:20 AM SALES OPERATIONS SPECIALIST MRSA SURVEILLANCE CULTURE, CDR Routine 07/17/2013 12:20 AM SALES OPERATIONS SPECIALIST PLASMA BASIC METABOLIC PANEL Routine 07/17/2013 12:20 AM SALES OPERATIONS SPECIALIST BLOOD HEMOGLOBIN A1C Routine 07/17/2013 12:20 AM SALES OPERATIONS SPECIALIST BLOOD CELL MORPHOLOGIC EXAM Routine 07/17/2013 12:20 AM SALES OPERATIONS SPECIALIST BLOOD CELL COUNT (CBC) Routine 3 12:20 AM SALES OPERATIONS SPECIALIST ALL MICROBIOLOGY REPORT SECTION Routine 07/17/2013 12:00 AM SALES OPERATIONS SPECIALIST ALL MICROBIOLOGY REPORT SECTION Routine 07/17/2013 12:00 AM SALES OPERATIONS SPECIALIST ALL MICROBIOLOGY REPORT SECTION Routine 07/17/2013 12:00 AM SALES OPERATIONS SPECIALIST documented in this encounter Results * Discharge Laboratory Cumulative Report (07/22/2013 12:00 AM SALES OPERATIONS SPECIALIST) 07/22/2013 Narrative HISTORICAL RESULTS - 07/23/2013 7:33 AM SALES OPERATIONS SPECIALIST ? [facility] ?Clinical Laboratories ? [address] ? [place] [address] Patient Name: ? [facility] Rec Number: ?? [id number] Fin Number: ? [id number] Date: ? 2000 Sex/Age: ?Female 13 years Admit Date: ? 07/16/2013 Discharge Date: ?? 07/22/2013 Doctor: ? Johnna Tinajero Referring Doctor: Fernando Reich III Facility: ? [facility] Location: ? 8W 8W29 B Chart Printed: [...] called to Dr Sue on 07/17/2013 06:23:19 SALES OPERATIONS SPECIALIST by TDM. Critical result read back by Dr Sue on 07/17/2013 06:23:25 SALES OPERATIONS SPECIALIST to TDM. ?Test: ??Total Calcium ??Plasma Total [...] called to Dr. Sue/REEMA on 07/17/2013 01:35:23 SALES OPERATIONS SPECIALIST by [facility]. Critical result read back by Dr. Sue/REEMA on 07/17/2013 01:35:35 SALES OPERATIONS SPECIALIST to jtc. 07/17/2013 00:43:00 ??Lact Rapid: Quantity not sufficient to retest. Critical test result called to Dr. Sue/REEMA on 07/17/2013 01:35:23 SALES OPERATIONS SPECIALIST by [facility]. Critical result read back by Dr. Sue/REEMA on 07/17/2013 01:35:35 SALES OPERATIONS SPECIALIST to jtc. ?URINALYSIS ?Macroscopic ?Test: ??Color ?? Clarity ??Specific [place] ?? pH ? Reference: ?[Clear] ?[1.008-1.022] ? Units: 07/17/2013 ?? 01:47:00 ?? Yellow ?? Clear ? 1.029 ??H ?5.0 ?Test: ?? Albumin ? Glucose ? Ketones ?Bilirubin ? Reference: ??[Negative] ??[Negative] ??[Negative] ??[Negative] ? Units: 07/17/2013 ?? 01:47:00 ?Negative ? 3+ ??*f ?Trace ??*f ?? Negative 07/17/2013 01:47:00 ??Glucose: Critical test result called to Acacia conventional mortgage underwriter on 07/17/2013 02:19:36 SALES OPERATIONS SPECIALIST by . Critical result read back by Acacia on 07/17/2013 02:19:42 SALES OPERATIONS SPECIALIST to SB. ?URINALYSIS ?Macroscopic 07/17/2013 01:47:00 ??Ketones: Critical test result called to Acacia conventional mortgage underwriter on 07/17/2013 02:19:36 SALES OPERATIONS SPECIALIST by SB. Critical result read back by Acacia on 07/17/2013 02:19:42 SALES OPERATIONS SPECIALIST to SB. ?Test: ?Blood ? Urobilinogen ?Nitrite [...] result called to Daniel(md-[id number]) on 07/18/2013 06:48:22 SALES OPERATIONS SPECIALIST by . Critical result read back by Daniel(md-[id number]) on 07/18/2013 06:48:32 SALES OPERATIONS SPECIALIST to . ?Test: ?Hct ?Platelet Ct ?MCV [...] * ??Interpretive Results ??* * * (1)The [employer] (formerly known as [employer]) FilmArray Respiratory Panel (RP) assay is a [...] FilmArray RP assay is FDA cleared for HOT METAL CHARGER swabs. ??Additional sample types have been validated according to CLIA regulations. ??The performance characteristics of this assay have been determined by [facility].Current interpretive data was last [...] ORDERABLES Neris l Result Performing Organization Address [facility] de Phone Number HISTORICAL RESULTS * Serum allergic bronchopulmonary Aspergillosis (ABPA), Aspergillus fumigatus, IgE (07/20/2013 1:49 PM SALES OPERATIONS SPECIALIST) Aspergillus fumigatus ab, IgE, total <0.34 0.00 - 0.34 KUnit/L HISTORICAL RESULTS Serum 07/20/2013 1:49 PM SALES OPERATIONS SPECIALIST Historical Provider MD LAB BLOOD ORDERABLES Neris l Result Performing Organization Address [facility] de Phone Number HISTORICAL RESULTS * (ABNORMAL) Serum allergic bronchopulmonary Aspergillosis (ABPA) cascade (07/20/2013 1:49 PM SALES OPERATIONS SPECIALIST) IgE 445.9(H) 3.1 - 110.8 IUnits/ml HISTORICAL RESULTS Serum 07/20/2013 1:49 PM SALES OPERATIONS SPECIALIST Historical Provider LAB BLOOD ORDERABLES Neris l Result Performing Organization Address [facility] de Phone Number HISTORICAL RESULTS * Plasma basic metabolic panel (07/20/2013 6:14 AM SALES OPERATIONS SPECIALIST) Sodium 138 135 - 145 mmol/L HISTORICAL [...] mg/dl HISTORICAL RESULTS Plasma 07/20/2013 6:14 AM SALES OPERATIONS SPECIALIST Historical Provider LAB BLOOD ORDERABLES Neris l Result Performing Organization Address [facility] de Phone Number HISTORICAL RESULTS * (ABNORMAL) Plasma basic metabolic panel (07/19/2013 7:01 AM SALES OPERATIONS SPECIALIST) Sodium 140 135 - 145 mmol/L HISTORICAL [...] mg/dl HISTORICAL RESULTS Plasma 07/19/2013 7:01 AM SALES OPERATIONS SPECIALIST Historical Provider LAB BLOOD ORDERABLES Neris l Result Performing Organization Address [facility] Co de Phone Number HISTORICAL RESULTS * (ABNORMAL) Plasma basic metabolic panel (07/18/2013 6:13 AM SALES OPERATIONS SPECIALIST) Sodium 139 135 - 145 mmol/L HISTORICAL [...] mg/dl HISTORICAL RESULTS Plasma 07/18/2013 6:13 AM SALES OPERATIONS SPECIALIST Historical Provider LAB BLOOD ORDERABLES Neris l Result Performing Organization Address City/[facility] Co de Phone Number HISTORICAL RESULTS * (ABNORMAL) Blood cell count (CBC) (07/18/2013 6:13 AM SALES OPERATIONS SPECIALIST) RBC 4.39 4.00 - 5.20 M/cumm HISTORICAL [...] result called to Daniel(kenton) on 07/18/2013 06:48:22 SALES OPERATIONS SPECIALIST by ra. Critical result read back by Daniel(kenton) on 07/18/2013 06:48:32 SALES OPERATIONS SPECIALIST to ra. Blood specimen (specimen) 07/18/2013 6:13 AM SALES OPERATIONS SPECIALIST Historical Provider LAB BLOOD ORDERABLES Neris l Result Performing Organization Address City/[facility] Co de Phone Number HISTORICAL RESULTS * (ABNORMAL) Blood cell morphologic exam (07/18/2013 6:13 AM SALES OPERATIONS SPECIALIST) Pathologist [facility] Neutrophilic bands 1 0 - 4 [...] RESULTS Blood specimen (specimen) 07/18/2013 6:13 AM SALES OPERATIONS SPECIALIST Historical Provider LAB BLOOD ORDERABLES Neris l Result Performing Organization Address City/[facility]/ZIP Co de Phone Number HISTORICAL RESULTS * Blood glucose, POC (07/18/2013 6:08 AM SALES OPERATIONS SPECIALIST) Glucose, POC, bld 126 70 - 199 mg/dl HISTORICAL RESULTS Blood specimen (specimen) 07/18/2013 6:08 AM SALES OPERATIONS SPECIALIST Historical Provider LAB BLOOD ORDERABLES Neris rick Result Performing Organization Address [facility] de Phone Number HISTORICAL RESULTS * Blood glucose, POC (07/17/2013 5:58 PM SALES OPERATIONS SPECIALIST) Glucose, POC, bld 176 70 - 199 mg/dl HISTORICAL RESULTS Blood specimen (specimen) 07/17/2013 5:58 PM SALES OPERATIONS SPECIALIST Historical Provider LAB BLOOD ORDERABLES Neris l Result Performing Organization Address [facility] de Phone Number HISTORICAL RESULTS * (ABNORMAL) Plasma comprehensive metabolic panel (07/17/2013 11:54 AM SALES OPERATIONS SPECIALIST) Sodium 135 135 - 145 mmol/L HISTORICAL [...] HISTORICAL RESULTS Plasma 07/17/2013 11:5 4 AM SALES OPERATIONS SPECIALIST Result [facility] Historical Provider LAB BLOOD ORDERABLES Neris rick Result HISTORICAL RESULTS * Blood gas, venous (07/17/2013 11:54 AM SALES OPERATIONS SPECIALIST) pH, solis 7.36 HISTORICAL RESULTS PCO2, solis 34 mm Hg HISTORICAL RESULTS PO2, solis 68 mm Hg HISTORICAL RESULTS CO2, solis, calc 20 mmol/L HISTO RICAL RESULTS BE,solis -5.1 mmol/L HISTORICAL RESULTS O2 sat, solis 91.8 % HISTORIC AL RESULTS Venous blood 07/17/2013 11:5 4 AM SALES OPERATIONS SPECIALIST Result [facility] Historical Provider LAB BLOOD ORDERABLES Neris rick Result Performing Organization Address [facility] de Phone Number HISTORICAL RESULTS * Blood lactic acid (07/17/2013 11:54 AM SALES OPERATIONS SPECIALIST) Lactic acid 1.7 0.5 - 2.0 mmol/L HISTORICAL RESULTS Blood specimen (specimen) 07/17/2013 11:54 AM SALES OPERATIONS SPECIALIST Result [facility] Historical Provider LAB BLOOD ORDERABLES Neris rick Result Performing Organization Address [facility] Co de Phone Number HISTORICAL RESULTS * (ABNORMAL) Blood glucose (07/17/2013 11:54 AM SALES OPERATIONS SPECIALIST) Glucose, bld 292(H) 70 - 199 mg/dl HISTORICAL RESULTS Blood specimen (specimen) 07/17/2013 11:54 AM SALES OPERATIONS SPECIALIST Historical Provider LAB BLOOD ORDERABLES Neris rick Result HISTORICAL RESULTS * (ABNORMAL) Blood lactic acid (07/17/2013 6:16 AM SALES OPERATIONS SPECIALIST) Lactic acid 7.1(H) 0.5 - 2.0 mmol/L HISTORICAL RESULTS Blood specimen (specimen) 07/17/2013 6:16 AM SALES OPERATIONS SPECIALIST Historical Provider LAB BLOOD ORDERABLES Neris l Result Performing Organization Address [facility] Co de Phone Number HISTORICAL RESULTS * Blood gas, venous (07/17/2013 6:16 AM SALES OPERATIONS SPECIALIST) pH, solis 7.31 HISTORICAL RESULTS PCO2, solis 30 mm Hg HISTORICAL RESULTS PO2, solis 82 mm Hg HISTORICAL RESULTS CO2, solis, calc 16 mmol/L HISTO RICAL RESULTS BE,solis -10.2 mmol/L HISTORICAL RESULTS O2 sat, solis 94.6 % HISTORIC AL RESULTS Venous blood 07/17/2013 6:16 AM SALES OPERATIONS SPECIALIST Result [facility] Historical Provider LAB BLOOD ORDERABLES Neris l Result Performing Organization Address [facility] de Phone Number HISTORICAL RESULTS * (ABNORMAL) Plasma basic metabolic panel (07/17/2013 5:46 AM SALES OPERATIONS SPECIALIST) Sodium 133(L) 135 - 145 mmol/L HISTORICAL [...] called to Dr Sue on 07/17/2013 06:23:19 SALES OPERATIONS SPECIALIST by TD. Critical result read back by Dr Sue on 07/17/2013 06:23:25 SALES OPERATIONS SPECIALIST to TDM. Interpretive Data Random glucose greater than or equal to 200 mg/dL with relevant clinical symptoms is diagnostic for diabetes when repeated on a subsequent day. Reference: Diabetes Care 2005;28:S37-S42. Current interpretive data was last revised on 2013. Plasma 07/17/2013 5:46 AM SALES OPERATIONS SPECIALIST Historical Provider LAB BLOOD ORDERABLES Neris l Result Performing Organization Address [facility] Co de Phone Number HISTORICAL RESULTS * (ABNORMAL) Blood lactic acid (07/17/2013 2:03 AM SALES OPERATIONS SPECIALIST) Lactic acid 10.6(C) 0.5 - 2.0 mmol/L HISTORICAL RESULTS Comment: Critical test result called to Dr. Sue/PICU on 07/17/2013 01:35:23 SALES OPERATIONS SPECIALIST by [facility]. Critical result read back by Dr. Sue/PICU on 07/17/2013 01:35:35 SALES OPERATIONS SPECIALIST to [facility]. Blood specimen (specimen) 07/17/2013 2:03 AM SALES OPERATIONS SPECIALIST us Historical Provider LAB BLOOD ORDERABLES Neris rick Result Performing Organization Address [facility] de Phone Number HISTORICAL RESULTS * (ABNORMAL) Urinalysis (07/17/2013 1:47 AM SALES OPERATIONS SPECIALIST) Color, ur Yellow HISTORICAL RESULTS Clarity, ur Clear Clear HISTORIC AL RESULTS Specific gravity, ur 1.029(H) 1.008 - 1.022 HISTORICAL RESULTS pH, ur 5.0 HISTORICAL RESULTS Protein, ur Negative Negative HISTORIC AL RESULTS Glucose, ur 3+(A) Negative HISTORIC AL RESULTS Comment: Critical test result called to Acacia DOSHI PICu on 07/17/2013 02:19:36 SALES OPERATIONS SPECIALIST by CACHORRO. Critical result read back by Acacai on 07/17/2013 02:19:42 SALES OPERATIONS SPECIALIST to CACHORRO. Ketones, ur Trace(A) Negative HISTORIC AL RESULTS Comment: Critical test result called to Acacia DOSHI PICu on 07/17/2013 02:19:36 SALES OPERATIONS SPECIALIST by CACHORRO. Critical result read back by Acacia on 07/17/2013 02:19:42 SALES OPERATIONS SPECIALIST to SB. Bilirubin, ur Negative Negative HISTOR ICAL RESULTS U Blood Negative Negative HISTORICAL RESULTS Urobilinogen, quant, ur 0.2 Ana Units/dl HISTORICAL RESULTS Nitrites, ur Negative Negative HISTORI LETY RESULTS Leukocyte esterase, ur Negative Negative HISTORICAL RESULTS Urine 07/17/2013 1:47 AM SALES OPERATIONS SPECIALIST us Historical Provider LAB BLOOD ORDERABLES Neris rick Result Performing Organization Address [facility] Co de Phone Number HISTORICAL RESULTS * Urine microscopy (07/17/2013 1:47 AM SALES OPERATIONS SPECIALIST) RBC, ur None Seen None Seen HISTORICAL RESULTS WBC, ur None Seen None Seen HISTORICAL RESULTS Epithelial cells, renal, ur None Seen None Seen HISTORICAL RESULTS Urine 07/17/2013 1:47 AM SALES OPERATIONS SPECIALIST us Historical Provider LAB BLOOD ORDERABLES Neris l Result HISTORICAL RESULTS * XR Chest 1 Vw (07/17/2013 12:54 AM SALES OPERATIONS SPECIALIST) Anatomical Region Laterality Modality Body, Chest N/A Radiographic Ria ging 07/17/2013 12:5 4 AM SALES OPERATIONS SPECIALIST Narrative 07/17/2013 10:06 AM SALES OPERATIONS SPECIALIST TEMI HERNANDEZ M.D. RAKESH HUDSON M.D. FINAL REPORT The radiology attending physician has personally reviewed this study, and has reviewed and/or edited this written report and agrees with it. ACC# ??Date Time ??Exam [id number] Jul 17, 2013 00:54:00 [id number] CHEST 1 VIEW EXAMINATION: ??Exam: AP chest [...] agrees with it. ACC# Date Time Exam [id number] Jul 17, 2013 00:54:00 [id number] CHEST 1 VIEW EXAMINATION: Exam: AP chest [...] (ABNORMAL) Blood lactic acid (07/17/2013 12:43 AM SALES OPERATIONS SPECIALIST) Pathologist [facility] Lactic acid 10.2(C) 0.5 - 2.0 mmol/L HISTORICAL RESULTS Comment: Quantity not sufficient to retest. ?? Critical test result called to Dr. Sue/PICU on 07/17/2013 01:35:23 SALES OPERATIONS SPECIALIST by [facility]. Critical result read back by Dr. Sue/PICU on 07/17/2013 01:35:35 SALES OPERATIONS SPECIALIST to [facility]. Blood specimen (specimen) 07/17/2013 12:43 AM SALES OPERATIONS SPECIALIST Result [facility] Historical Provider LAB BLOOD ORDERABLES Neris l Result Performing Organization Address [facility] Co de Phone Number HISTORICAL RESULTS * Blood gas, venous (07/17/2013 12:43 AM SALES OPERATIONS SPECIALIST) pH, solis 7.27 HISTORICAL RESULTS PCO2, solis 29 mm Hg HISTORICAL RESULTS PO2, solis 91 mm Hg HISTORICAL RESULTS CO2, solis, calc 14 mmol/L HISTO RICAL RESULTS BE,solis -12.4 mmol/L HISTORICAL RESULTS O2 sat, solis 95.2 % HISTORIC AL RESULTS Venous blood 07/17/2013 12:4 3 AM SALES OPERATIONS SPECIALIST Historical Provider LAB BLOOD ORDERABLES Neris l Result Performing Organization Address City/[facility] Co de Phone Number HISTORICAL RESULTS * Respiratory Pathogen Multiplex PCR (07/17/2013 12:20 AM SALES OPERATIONS SPECIALIST) Nasopharyngeal (Unknown) 07/17/2013 12:20 AM SALES OPERATIONS SPECIALIST 07/17/2013 12:28 AM SALES OPERATIONS SPECIALIST Impressions HISTORICAL RESULTS - 07/17/2013 1:48 AM SALES OPERATIONS SPECIALIST The [employer] ([employer] known as [employer] FilmArray Respiratory Panel (RP) assay is a [...] FilmArray RP assay is FDA cleared for HOT METAL CHARGER swabs. ??Additional sample types have been validated according to CLIA regulations. ??The performance characteristics of this assay have been determined by [facility]. Current interpretive data was last revised on 2012. Narrative HISTORICAL RESULTS - 07/17/2013 1:48 AM SALES OPERATIONS SPECIALIST Respiratory Pathogen nucleic acids DETECTED (POSITIVE) for the following: Rhinovirus/Enterovirus Test result called to and read back by MCKAY/Coni Gay on 07/17/13 at 0145 by Virology Lab/Lenoora Stoner Historical Provider MD LAB MICROBIOLOGY - GENERA L ORDERABLES Final Result Performing Organization Address [facility] de Phone Number HISTORICAL RESULTS * Methicillin-resistant Staphylococcus aureus (MRSA) surveillance culture (07/17/2013 12:20 AM SALES OPERATIONS SPECIALIST) Nasal (Unknown) 07/17/2013 1 2:20 AM SALES OPERATIONS SPECIALIST 07/17/2013 12:40 AM SALES OPERATIONS SPECIALIST Narrative HISTORICAL RESULTS - 07/18/2013 3:13 AM SALES OPERATIONS SPECIALIST Negative Historical Provider MD LAB MICROBIOLOGY - GENERA L ORDERABLES Final Result Performing Organization Address [facility] de Phone Number HISTORICAL RESULTS * Vancomycin-resistant enterococcus (VRE) screen (07/17/2013 12:20 AM SALES OPERATIONS SPECIALIST) Rectal swab (Unknown) 07/17/2013 12:20 AM SALES OPERATIONS SPECIALIST 07/17/2013 12:39 AM SALES OPERATIONS SPECIALIST Narrative HISTORICAL RESULTS - 07/19/2013 10:51 AM SALES OPERATIONS SPECIALIST Negative Historical Provider LAB MICROBIOLOGY - GENERA L ORDERABLES Final Result Performing Organization Address [facility] de Phone Number HISTORICAL RESULTS * Blood hemoglobin A1C (07/17/2013 12:20 AM SALES OPERATIONS SPECIALIST) Hgb A1C 5.5 4.9 - 6.2 % HISTORIC AL RESULTS Blood specimen (specimen) 07/17/2013 12:20 AM SALES OPERATIONS SPECIALIST Historical Provider MD LAB BLOOD ORDERABLES Neris l Result Performing Organization Address [facility] Co de Phone Number HISTORICAL RESULTS * (ABNORMAL) Plasma basic metabolic panel (07/17/2013 12:20 AM SALES OPERATIONS SPECIALIST) Sodium 136 135 - 145 mmol/L HISTORICAL [...] HISTORICAL RESULTS Plasma 07/17/2013 12:2 0 AM SALES OPERATIONS SPECIALIST Historical Provider LAB BLOOD ORDERABLES Neris l Result HISTORICAL RESULTS * (ABNORMAL) Blood cell count (CBC) (07/17/2013 12:20 AM SALES OPERATIONS SPECIALIST) WBC 10.1 4.5 - 13.5 K/cumm HISTORICAL [...] RESULTS Blood specimen (specimen) 07/17/2013 12:20 AM SALES OPERATIONS SPECIALIST Historical Provider LAB BLOOD ORDERABLES Neris l Result HISTORICAL RESULTS * (ABNORMAL) Blood cell morphologic exam (07/17/2013 12:20 AM SALES OPERATIONS SPECIALIST) Neutrophils 97(H) 33 - 70 % HISTORIC [...] RESULTS Blood specimen (specimen) 07/17/2013 12:20 AM SALES OPERATIONS SPECIALIST us Historical Provider MD LAB BLOOD ORDERABLES Neris merline Result Performing Organization Address [facility]/ZIP Co de Phone Number HISTORICAL RESULTS * All Microbiology Report Section (07/17/2013 12:00 AM SALES OPERATIONS SPECIALIST) 07/17/2013 Narrative HISTORICAL RESULTS - 07/19/2013 1:24 PM SALES OPERATIONS SPECIALIST ?[facility] ? Clinical Laboratories ?[address] ?[place] [address] ? Patient Name: ? NINA BAUTISTA ? Med Rec Number: ? [id number] ? Fin Number: ? [id number] ? Date: ? 2000 ? Sex/Age: ?Female 13 years ? Admit Date: ? 07/16/2013 ? Discharge Date: ? Doctor: ? Schmandt , Johnna A ? Facility: ? [facility] ? Location: ? 7ICB 7P20 A ? [...] All Microbiology Report Section (07/17/2013 12:00 AM SALES OPERATIONS SPECIALIST) 07/17/2013 Narrative HISTORICAL RESULTS - 07/18/2013 6:10 AM SALES OPERATIONS SPECIALIST ?[facility] ? Clinical Laboratories ?[address] ?[place] [address] ? Patient Name: ? NINA BAUTISTA ? Med Rec Number: ? [id number] ? Fin Number: ? [id number] ? Date: ? 2000 ? Sex/Age: ?Female 13 years ? Admit Date: ? 07/16/2013 ? Discharge Date: ? Doctor: ? Johnna Tinajero ? [facility] ? Location: ? 7ICB 7P20 [...] All Microbiology Report Section (07/17/2013 12:00 AM SALES OPERATIONS SPECIALIST) 07/17/2013 Narrative HISTORICAL RESULTS - 07/19/2013 1:24 PM SALES OPERATIONS SPECIALIST ?[facility] ? Clinical Laboratories ?[address] ?[place] [address] ? Patient Name: ? NINA BAUTISTA ? Med Rec Number: ? [id number] ? Fin Number: ? [id number] ? Date: ? 2000 ? Sex/Age: ?Female 13 years ? Admit Date: ? 07/16/2013 ? Discharge Date: ? Doctor: ? Johnna Tinajero ? Facility: ? [facility] ? Location: ? 7ICB 7P20 A ? [...] ??Interpretive Results ??* * * ? (1)The [employer] (formerly known as [employer]) ? FilmArray Respiratory Panel (RP) assay is [...] FilmArray RP assay is FDA cleared for HOT METAL CHARGER ? swabs. ??Additional sample types have been validated according to ? CLIA regulations. ??The performance characteristics of this assay ? have been determined by [facility] ? Lab.Current interpretive data was [...]
--- OUTSIDE RECORDS SUMMARY | 2024-08-28 02:59 | XMS_ITS | Encounter Summary ---
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 - 07/14/2013 11:59 PM REBAR WORKER Hospital En[facility] Other symptoms referable to forearm joint Social History Tobacco Use Types Packs/Day Years Used Date Smoking Tobacco: Never Assessed Comments Unknown Sex and Gender Information Value Date Recorded Sex Assigned at Not on file Legal Sex Female 11:42 PM REBAR WORKER Gender Identity Not on file Sexual Orientation Not on file documented as of this encounter Plan of Treatment Not on file documented as of this encounter Procedures Procedure Name Priority Date/Time Associated Diagnosis Comments XR WRIST 3+ VW Routine 07/14/2013 7:49 AM REBAR WORKER documented in this encounter Results * XR Wrist 3+ VW (07/14/2013 7:49 AM REBAR WORKER) Anatomical Region Laterality Modality N/A Radiographic Ria ging 07/14/2013 7:49 AM REBAR WORKER Narrative 07/14/2013 9:08 AM REBAR WORKER MILAGROS ANTHONY M.D. FINAL REPORT ACC# ??Date Time ??Exam [id number] Jul 14, 2013 07:49:00 [id number] WRIST 3V R EXAMINATION: ?? right wrist [...] M.D. FINAL REPORT ACC# Date Time Exam [id number] Jul 14, 2013 07:49:00 [id number] WRIST 3V R EXAMINATION: right wrist 3 [...]
--- OUTSIDE RECORDS SUMMARY | 2024-08-28 02:59 | XMS_ITS | Encounter Summary ---
Author Organization [facility] Facility Care Team Providers Care Rip Tailer Name Role Phone Unavailable Primary Care Provider Unavailabl e Encounter Details Date Type Department Care Team (Late st Contact Info) Description 11/08/2012 11:39 AM CDT - 11/08/2012 11:59 PM CDT [facility] [address] [place] [address] Disorder of bone and cartilage; Pain in joint, forearm Social History Tobacco Use Types Packs/Day Years Used Date Smoking Tobacco: Never Assessed Comments Unknown Sex and Gender Information Value Date Recorded Sex Assigned at Not on file 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 ACC# ??Date Time ??Exam [id number] Nov 08, 2012 12:00:00 [id number] HAND MINIMUM 3 VIEWS L [id number] Nov 08, 2012 12:00:00 87006 WRIST 3V L EXAMINATION: ?Three views of [...] agrees with it. ACC# Date Time Exam [id number] Nov 08, 2012 12:00:00 [id number] HAND MINIMUM 3 VIEWS L [id number] 08, 2012 12:00:00 77425 WRIST 3V L EXAMINATION: Three views of [...] agrees with it. ACC# ??Date Time ??Exam [id number] Nov 08, 2012 12:00:00 [id number] HAND MINIMUM 3 VIEWS L [id number] Nov 08, 2012 12:00:00 [id number] WRIST 3V L EXAMINATION: ?Three views of [...] agrees with it. ACC# Date Time Exam [id number] Nov 08, 2012 12:00:00 [id number] HAND MINIMUM 3 VIEWS L [id number] Nov 08, 2012 12:00:00 [id number] WRIST 3V L EXAMINATION: Three views of [...]
== END 2024-08-21 04:46 | disposition home or self-care (01) ==
PROVIDERS: Emergency Provider Emergency Medicine; PCP Physician Assistant
DX: J45.901 Unspecified asthma with (acute) exacerbation (principal); F41.8 Other specified anxiety disorders; Z20.822 Contact with and (suspected) exposure to COVID-19
CPT/HCPCS: 71045; 87637; 93005; 94640; 94664; 99283; J7512

== ENCOUNTER 2024-10-04 13:07 | Emergency (ER) | payer OTHER, SELFPAY ==
--- NOTE | 2024-10-04 13:31 | ED.URI ---
HPI - URI/Sore Throat General Chief Complaint: Upper Respiratory Infection Stated Complaint: COUGH/FEVER/HEADACHE/CHILLS/STOMACH PAIN Time Seen by Provider: 10/04/24 14:10 Source: patient Mode of arrival: ambulatory Limitations: no limitations History of Present Illness HPI Narrative: Nina is a 24-year-old female patient presenting to the clinic today with complaints of cough, fever, headache, chills, and abdominal discomfort x1 day. She reports she has had exposure to influenza. MD elicited complaint: sore throat and nasal congestion Related Data Home Medications ?Medication ?Instructions ?Recorded ?Confirmed ?Last Taken ?Type albuterol sulfate 90 mcg/actuation 1 inhalation inhalation Q4H 08/16/19 06/02/24 Unknown History aerosol inhaler (ProAir HFA) fluticasone furoate 100 inhalation 01/12/21 06/02/24 Unknown History mcg-vilanterol 25 mcg/dose inhalation powder (Breo Ellipta) sertraline 25 mg tablet 25 mg PO DAILY 06/02/24 06/02/24 Unknown History Allergies Allergy/AdvReac Type Severity Reaction Status Date / Time Penicillins AdvReac Nausea and Verified 10/04/24 14:03 Vomiting Review of Systems Review of Systems: Pertinent positives per HPI. Patient denies any rash, visual changes, dizziness,shortness of breath, chest pain, palpitations, nausea, vomiting, diarrhea, constipation, or any urinary issues. [facility] Past Medical History Medical History Migraine Depression Asthma Anxiety Acid reflux Surgical History Surgical History S/P cholecystectomy H/O wrist surgery Social History Social History Smoking status: Never smoker Alcohol intake: never Substance use: never Lack of Transportation: No Lack of Food: Never True Current Housing: I Have Housing Concerned About Future Housing: No Difficulty Paying Gas/Electric Bills: No Difficulty Paying for Meds: No Currently Unemployed: No Education: High School Diploma/GED Difficulty w/ Childcare or Family Care: No Comments At the time of my signature, I reviewed and agree with the nursing past medical, surgical, social, and family history. There is no relevant family history pertinent to the patient complaint. Exam Narrative: General: Well-developed, morbidly obese in no apparent distress Head: Normocephalic, atraumatic Eyes: Pupils equally round and reactive to light bilaterally, EOM intact, sclera and conjunctive clear, no discharge, lids normal Ears: TMs intact and clear, ear canals clear, no drainage, grossly hearing normal. Nose: Nares patent, clear nasal discharge, no inflammation, no sinus tenderness. Mouth: Oral pharynx without lesions or masses, good dentition, MMM. Neck: Supple, trachea midline, no enlargement of anterior or posterior cervical nodes, no thyroid masses or goiter palpable. Cardio: Regular rate and rhythm, s1 and s2 normal, no murmur appreciated. Resp: Clear to auscultation bilaterally, no rhonchi, rales, wheezing or rubs Course Course Emergency Course: Portions of this record may have been created with voice recognition software. Level of Care: Express Care Visit Vital Signs Vital signs: Vital Signs Temperature 37.4 C 10/04/24 13:55 Pulse Rate 115 H 10/04/24 13:55 Respiratory Rate 16 10/04/24 13:55 Blood Pressure 152/105 H 10/04/24 13:55 Pulse Oximetry 100 10/04/24 13:55 Temperature 37.4 C 10/04/24 13:55 Pulse Rate 115 H 10/04/24 13:55 Respiratory Rate 16 10/04/24 13:55 Blood Pressure 152/105 H 10/04/24 13:55 Pulse Oximetry 100 10/04/24 13:55 Vital signs reviewed MDM - URI/Sore Throat MDM Narrative Medical decision making narrative: At the time of visit patient is resting comfortably on the exam table. Patient appears to be nontoxic. Labs: Influenza testing was positive for influenza A Plan: Patient has influenza A. Prescription for Tamiflu was sent to the pharmacy. Supportive measures were discussed with the patient and they voiced understanding discharge instructions and agrees to treatment plan. Return precautions reviewed Differential Diagnosis Differential diagnosis: Likely upper respiratory infection, otitis media, sinusitis, viral infection, bronchitis, influenza, pharyngitis and other (COVID) Discharge Plan Discharge Clinical Impression: Influenza A Patient Disposition: Home, Self-Care Condition: Stable Instructions: Antibiotic Form, Influenza (ED) Additional Instructions: Take prescription medications only as prescribed-Tamiflu Increase fluids and stay well hydrated Tylenol/motrin for pain/fever Flonase and OTC antihistamines as directed Vicks vapor rub to open sinuses Sinus rinses for congestion Cepacol spray, cough drops, throat lozenges, warm tea with honey/lemon, gargle salt water to soothe throat BRAT diet for diarrhea Clear liquids x 24 hours then advance as tolerated for nausea/vomiting Go to the ED if you develop a worsening in your condition- high fever not controlled by Tylenol or Motrin, dehydration, weakness, lethargy, shortness of breath, or chest pain. Follow up with your PCP in 3-5 days if symptoms persist. Patient Language: Mongolian Prescriptions: New oseltamivir [Tamiflu] 75 mg capsule 75 mg PO Q12H 5 Days Qty: 10 0RF No Action Breo Ellipta 100-25 mcg/dose blister with device INHALATION albuterol sulfate [ProAir HFA] 90 mcg/actuation HFA aerosol inhaler 1 inhalation INHALATION Q4H sertraline 25 mg tablet 25 mg PO DAILY norgestimate-ethinyl estradiol [Pal-Nr-Jebgprmf] 0.18/0.215/0.25 mg-25 mcg tablet 1 tablet PO DAILY Qty: 84 4RF prednisone 50 mg tablet 50 mg PO DAILY 5 Days Qty: 5 0RF Follow-up/Referrals: Elizabeth,LEXI Cohen [Primary Care Provider] - Stand Alone Forms: Work/School Release IP Time of Disposition: 14:12 Quality NIHSS Nursing Documentation ED NIHSS nursing documentation: reviewed/agree
[2024-10-04 13:55] VITALS: BP 152/105; PULSE 115; RESP 16; TEMP 37.4; O2SAT 100
[2024-10-04 14:48] LABS: EDINFLUASCREEN Positive (Negative); EDINFLUBSCREEN Negative (Negative)
== END 2024-10-04 14:17 | disposition home or self-care (01) ==
PROVIDERS: Emergency Provider Nurse Practitioner Family; PCP Physician Assistant
DX: J10.1 Influenza due to other identified influenza virus with other respiratory manifestations (principal); J45.909 Unspecified asthma, uncomplicated; F41.8 Other specified anxiety disorders
CPT/HCPCS: 87804; 99213; G0463

== ENCOUNTER 2025-04-16 22:13 | Emergency (ER) | payer OTHER, SELFPAY ==
--- NOTE | ~2025-04-16 | US_ITS ---
EXAMINATION: US pelvic complete DATE: 04/17/2025 06:51 INDICATION: Right lower quadrant abdominal pain TECHNIQUE: Multiple transabdominal sonographic images of the pelvis were obtained. COMPARISON: None. FINDINGS: The uterus measures 6.4 x 3.4 x 3.3 cm. The endometrial complex measures 3 mm in thickness. The righ t ovary measures 1.7 x 1.4 x 1.5 cm. The left ovary measures 2.7 x 1.9 x 1.3 cm. Vascular flow identi fied at both ovaries on color Doppler. There is no free fluid in the pelvis. IMPRESSION: 1. Normal pelvic ultrasound. Reviewed, dictated and finalized at location A.
--- NOTE | ~2025-04-16 | CT_ITS ---
Non-contrast CT scan of the Abdomen and Pelvis Clinical indication: Abdominal pain Technique: 2.5 mm axial scans were obtained through the abdomen and pelvis without intravenous or or al contrast. Dose reduction technique was used on this scan by utilizing automated exposure control a nd iterative reconstruction technique. The dose-length product (DLP) was 1335.96 mGy-cm. Findings: Images through the lung bases reveal no abnormalities. There is no evidence of renal or ureteral calculi. The kidneys and the ureters are nondilated. The liver, spleen, pancreas, and adrenals appear normal. Gallbladder absent. There is no aortic aneur ysm. There is no evidence of bowel obstruction. Normal appendix. Images through the pelvis were performed. There is no evidence of ascites or lymphadenopathy. Urinary bladder unremarkable. No pelvic mass seen. No ascites. Impression: Unremarkable exam. Reviewed, dictated and finalized at [facility]. Impression: Unremarkable exam.
[2025-04-16 22:15] VITALS: BP 144/105; PULSE 92; RESP 16; TEMP 36.6; O2SAT 100
--- OUTSIDE RECORDS SUMMARY | 2025-04-16 22:16 | XMS_ITS | Patient Health Record ---
Author Organization [facility] [employer] Address [address] [place] [address] Care Team Providers Care Roll Line Operator Name Role Phone Madyson Bliss Unavailable [phone] Reason For Referral No Information Medications Medication SIG (Take, Route, Frequency, Duration) Notes Start Date End Date Status Neomycin Sulfate 500 mg Oral 12/02/2022 Active Metoclopramide HCl 5 MG Oral 12/02/2022 Active ProAir HFA 108 (90 Base) MCG/ACT Inhalation 12/02/2022 Active PLENVU 140 GRAM-9 GRAM-5.2 GRAM POWDER PACKS *Reorder from [employer] for eRx and Interaction Alerts* 12/02/2022 Active Xifaxan 550 MG Oral 12/02/2022 Acti ve Ciprofloxacin-dexAMETH asone 0.3-0.1 % Otic 12/02/2022 Active Sertraline HCl 100 MG Oral 12/02/2022 Active Dicyclomine HCl 20 MG Oral 12/02/2022 Active Nortriptyline HCl 10 MG Oral 12/02/2022 Active Sertraline HCl 50 MG Oral 12/02/2022 Active Ondansetron 4 MG Oral 12/02/2022 Ac tive HYDROcodone-Acetaminop hen 5-325 MG Oral 12/02/2022 Active Doxepin HCl 25 MG Oral 12/02/2022 A ctive FLUTICASONE FUROATE 100 MCG-VILANTEROL 25 MCG/DOSE INHALATION POWDER *Reorder from [employer] for eRx and Interaction Alerts* 12/02/2022 Active Topiramate 25 MG Oral 12/02/2022 Ac tive Breo Ellipta 100-25 MCG/INH Inhalation 12/02/2022 Active TRI-LO-ESTRELLITA 0.18/0.215/0.25 MG-25 MCG TABLET *Reorder from [employer] for eRx and Interaction Alerts* 12/02/2022 Active Ciprofloxacin HCl 500 MG Oral 12/02/2022 Active Immunizations Vaccine Route Administration Date Status Comme nts Influenza virus vaccine, quadrivalent (IIV4), split virus, 0.25 mL dosage Unknown 06/22/2019 Administered Influenza virus vaccine, quadrivalent (IIV4), split virus, 0.25 mL dosage Unknown 07/25/2021 Administered Influenza, injectable, MDCK, preservative free Unknown 08/21/2020 Administered Influenza, seasonal, injecta ble, preservative free, 3 yrs and above Unknown 06/29/2013 Administered Influenza, seasonal, injecta ble, preservative free, 3 yrs and above Unknown 06/05/2014 Administered Influenza, seasonal, injecta ble, preservative free, 3 yrs and above Unknown 07/03/2015 Administered Novel [id number]-[id number], preservative free Unknown 07/21/2018 Administered Novel Svyjudqye-[id number], preservative free Unknown 06/22/2019 Administered Pfizer Biontech Covid-19 Vac cine 2nd dose Unknown 11/01/2020 Administered Pfizer Biontech Covid-19 Vac cine 2nd dose Unknown 11/24/2020 Administered Pfizer Biontech Covid-19 Vac cine 2nd dose Unknown 07/25/2021 Administered Plan Of Treatment No Information Insurance Providers Payer Name Payer Address Payer Phone Subscriber Number Group Number Insured Name Patient Relationship to Insured Coverage Start Date Coverage End Date C[employer] Ppo [address] [place] [address] [id number] NAILA BAUTISTA Self - patient is the insured Medical (General) History Surgical History Surgery Date(Month/Year) Procedure on wrist ([id number]) Removal of gallbladder (10346) 1
--- OUTSIDE RECORDS SUMMARY | 2025-04-16 22:16 | XMS_ITS | Clinical Summary ---
Author Organization [facility] Address [address] [place] [address] Care Team Providers Care Asset Management Lead Name Role Phone Johnna Tinajero MD Primary Care Provider + Source Comments [facility],non-owned Affiliates and Associated Physician Practices is amultiple site organization consisting of ambulatory clinics and hospital sitesin [place], [place], [place] and [place]. This disclosure is being madepursuant to the Care Everywhere program and may not contain all information available regarding this patient. Last updated 18.[facility] Allergies Active Allergy Reactions Criticality Noted Date Comments Penicillins Rash Medium 09/23/2017 As a child Medications * Be aware that medications may not be up to date on this document. Alwaysverify current medications with the patient. fluticasone-marisol nterol (BREO ELLIPTA) 100-25 MCG/INH inhaler Inhale 1 puff by mouth once daily Administer at the same time each day. Rinse mouth after using Active albuterol HFA (PROAIR HFA) 108 (90 BASE) MCG/ACT inhaler Inhale 2 puffs by mouth every 6 hours as needed Active fluticasone propionate (FLONASE) 50 MCG/ACT nasal spray [place] 2 sprays into each nostril once daily 1 bottles 8 Active azithromycin (ZITHROMAX) 250 MG tabletIndication s:Acute sinusitis, recurrence not specified, unspecified location Take 2 tabs today, then 1 tab daily for next 4 days 6 tablet 1 Active Active Problems No known active problems Social History Tobacco Use Types Packs/Day Years Used Date Smoking Tobacco: Never Smokeless Tobacco: Never Tobacco Cessation:Counseling Given: No PHQ-2 Answer Date Recorded PHQ2 TOTAL SCORE 0 01/23/2021 Comments Unknown Sex and Gender Information Value Date Recorded Sex Assigned at Not on file Legal 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 Gender Identity Not on file Sexual Orientation Not on file Last Filed Vital Signs Vital Sign Reading Time Taken Comments Blood Pressure 120/82 08/21/2021 2:11 PM NUCLEAR STATION OPERATOR Pulse 80 08/21/2021 2:11 PM NUCLEAR STATION OPERATOR Temperature 36.6 C (97.9 F) 08/21/2021 2:11 PM NUCLEAR STATION OPERATOR Respiratory Rate 18 08/21/2021 2:11 PM NUCLEAR STATION OPERATOR Oxygen Saturation 99% 08/21/2021 2:11 PM NUCLEAR STATION OPERATOR Inhaled Oxygen Concentration - - Weight 90.7 kg (200 lb) 08/21/2021 2:11 PM NUCLEAR STATION OPERATOR Height 160 cm (5' 3) 08/21/2021 2:11 PM NUCLEAR STATION OPERATOR Body Mass Index 35.43 08/21/2021 2:11 PM NUCLEAR STATION OPERATOR Plan of Treatment Health Maintenance Due Date Last Done Comments HIV SCREENING 2017 HPV VACCINE (1 - 3-dose series) 2017 CHLAMYDIA/GONORRHEA SCREENING 2018 MENINGOCOCCAL (Group B) VACCINE SHARED DECISION-MAKING (1 of 2 - Standard) 2018 HEPATITIS C SCREENING 02/17/2020 DTAP/TDAP/TD VACCINES (1 - Tdap) 2021 HEPATITIS B VACCINE (1 of 3 - 19+ 3-dose series) 2021 COVID-19 VACCINE (4 - season) 2024 07/23/2021, 11/24/2020, 11/01/2020 DEPRESSION SCREENING 08/31/2024 INFLUENZA VACCINE (#1) 2025 , 08/21/2020, 07/31/2020, Additional history exists ZOSTER VACCINE (1 of 2) 02/22/2052 HIB VACCINE Aged Out No longer eligi ble based on patient's age to complete this topic MENINGOCOCCAL GROUPS A/C/Y/W VACCINE Aged Out No longer eligible based on patient's age to complete this topic PNEUMOCOCCAL VACCINE Aged Out No long er eligible based on patient's age to complete this topic Insurance ANTH Care Teams Asset Management Lead Relationship Specialty Start Date End Date Johnna Tinajero MD [address] [address] PCP - General Pediatrics 09/23/17
--- OUTSIDE RECORDS SUMMARY | 2025-04-16 22:16 | XMS_ITS | Clinical Summary ---
Author Organization [facility] Address [address] [place] [address] Care Team Providers Care Shell Grader Name Role Phone Johnna Tinajero MD Unavailable [phone] Luciano Edwards MD Unavailable [phone] Arian Adam MD Unavailable Vicki Johnson Primary Care Pr ovider Allergies Active Allergy Reactions Criticality Noted Date Comments Dog Dander Hives Medium Reaction: HIVES, Penicillins Other (See comments),Rash Medium 03/19/2015 As a child Reaction: NAUSEA;, As a child Medications albuterol HFA (PROVENTIL [...] or vomiting 30 tablet 1 3 Active Breyna 160-4.5 mcg/actuation inhaler Inhale 2 puffs 2 (two) times a day 5 Active Wegovy 2.4 mg/0.75 mL auto-injector Inject 2.4 mg under the skin every 7 days 5 Active Active Problems Problem Noted Date Diagnosed Date RLQ abdominal pain 01/13/2023 Mixed obsessional thoughts and acts 01/13/2023 History of mononucleosis 04/28/2022 Dyskinesia of gallbladder 01/16/2021 Overview (01/16/2021): Added automatically from request for surgery [id number] Vomiting without nausea 08/22/2020 Overview (08/22/2020): Added automatically from request for surgery [id number] Vasovagal syncope 10/25/2019 Assessment & Plan (11/06/2019 [...] consult Assessment & Plan (11/05/2019 2:21 PM ROTARY DRYER OPERATOR): Nina presented following several syncopal episodes lasting [...] teaching Assessment & Plan (11/04/2019 5:26 PM ROTARY DRYER OPERATOR): Nina presented following several syncopal episodes lasting [...] like to have her wear a 30 monitor and follow up as an outpatient. [...] recommendations Assessment & Plan (11/03/2019 5:10 AM ROTARY DRYER OPERATOR): Several syncopal episodes lasting seconds to minutes. [...] Clinic Assessment & Plan (11/05/2019 2:18 PM ROTARY DRYER OPERATOR): GI was consulted as she was scheduled [...] Clinic Assessment & Plan (11/04/2019 5:27 PM ROTARY DRYER OPERATOR): GI was consulted as she was scheduled [...] Clinic Assessment & Plan (09/19/2019 11:51 AM ROTARY DRYER OPERATOR): 2 month history of worsening nausea with [...] oz every hour) - discontinue lexapro 10mg 1/20 - Hold zofran - continue nortiptyline 10 mg nightly for headache, nausea. Consider up titrating - Continue lansoprazole - KUB to evaluate passage of contrast Assessment & Plan (09/18/2019 12:24 PM ROTARY DRYER OPERATOR): 2 month history of worsening nausea with [...] oz every hour) - discontinue lexapro 10mg 1/20 - Hold zofran - continue nortiptyline 10 mg nightly for headache, nausea - xray tomorrow to see if contrast cleared, gastric emptying if clear. Assessment & Plan (09/17/2019 3:13 PM ROTARY DRYER OPERATOR): 2 month history of worsening nausea with [...] 20mg every day to 10mg every day 16 - Hold zofran - Start nortiptyline 10 mg nightly for headache, nausea - Gastric emptying study next week Assessment & Plan (09/16/2019 11:48 AM ROTARY DRYER OPERATOR): 2 month history of worsening nausea with [...] week Assessment & Plan (09/15/2019 3:01 PM ROTARY DRYER OPERATOR): 2 month history of worsening nausea with [...] prn Assessment & Plan (09/14/2019 1:01 PM ROTARY DRYER OPERATOR): 2 month history of worsening nausea with [...] UDS Assessment & Plan (09/13/2019 7:51 PM ROTARY DRYER OPERATOR): 2 month history of worsening nausea with [...] 07/20/2019 Assessment & Plan (09/19/2019 10:53 AM ROTARY DRYER OPERATOR): Right lower quadrant abdominal pain began in [...] OCP Assessment & Plan (09/18/2019 12:17 PM ROTARY DRYER OPERATOR): Right lower quadrant abdominal pain began in [...] OCP Assessment & Plan (09/17/2019 3:13 PM ROTARY DRYER OPERATOR): Right lower quadrant abdominal pain began in [...] OCP Assessment & Plan (09/16/2019 11:42 AM ROTARY DRYER OPERATOR): Right lower quadrant abdominal pain began in [...] OCP Assessment & Plan (09/15/2019 2:52 PM ROTARY DRYER OPERATOR): Right lower quadrant abdominal pain began in [...] OCP Assessment & Plan (09/14/2019 1:00 PM ROTARY DRYER OPERATOR): Right lower quadrant abdominal pain began in [...] OCP Assessment & Plan (09/13/2019 7:46 PM ROTARY DRYER OPERATOR): Right lower quadrant abdominal pain began in [...] OCP Assessment & Plan (07/23/2019 12:28 PM ROTARY DRYER OPERATOR): 19 year old girl with PMH obesity, [...] -encourage oral intake - regular diet, POAL -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 -Scheduled tylenol and toradol q6hr for pain -start OCP with discharge and f/u with gynecology -f/u DHES-A, Testosterone results Assessment & Plan (07/22/2019 9:02 AM ROTARY DRYER OPERATOR): 19 year old girl with PMH obesity, [...] amount of free fluid in posterior cul-de-sac -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 Asthma presently well-controlled on regimen of qHS breo inhaler, with no hospitalizations or exacerbations in last several years. - continue qHS breo - albuterol PRN q4hrs Assessment & Plan (07/22/2019 9:02 AM ROTARY DRYER OPERATOR): History of numerous hospitalizations due to asthma exacerbations in childhood, with several day long stay in PICU 5 or 6 years ago (no intubations). Asthma presently well-controlled on regimen of qHS breo inhaler, with no hospitalizations or exacerbations in last several years. - continue qHS breo - albuterol PRN q4hrs Assessment & Plan (07/21/2019 7:29 AM ROTARY DRYER OPERATOR): History of numerous hospitalizations due to asthma exacerbations in childhood, with several day long stay in PICU 5 or 6 years ago (no intubations). Asthma presently well-controlled on regimen of qHS breo inhaler, with no hospitalizations or exacerbations in last several years. - continue qHS breo - albuterol PRN q4hrs Assessment & Plan (07/20/2019 1:12 AM ROTARY DRYER OPERATOR): History of numerous hospitalizations due to asthma exacerbations in childhood, with several day long stay in PICU 5 or 6 years ago (no intubations). Asthma presently well-controlled on regimen of qHS breo inhaler, with no hospitalizations or exacerbations in last several years. - continue qHS breo - albuterol PRN q4hrs Anxiety 07/20/2019 Assessment & Plan (07/23/2019 12:26 PM ROTARY DRYER OPERATOR): Followed by therapist, patient states that therapy [...] qHS Assessment & Plan (07/22/2019 7:17 AM ROTARY DRYER OPERATOR): Followed by therapist, patient states that therapy [...] qHS Assessment & Plan (07/21/2019 7:29 AM ROTARY DRYER OPERATOR): Followed by therapist, patient states that therapy [...] qHS Assessment & Plan (07/20/2019 1:14 AM ROTARY DRYER OPERATOR): Followed by therapist, patient states that therapy [...] Neurology. Assessment & Plan (11/05/2019 2:27 PM ROTARY DRYER OPERATOR): Patient with daily headaches for the past [...] 10/01/2021 Assessment & Plan (10/26/2020 2:12 PM ROTARY DRYER OPERATOR): Nina is an 20yo with past medical [...] NSAIDs Assessment & Plan (10/25/2020 1:21 PM ROTARY DRYER OPERATOR): Nina is an 20yo with past medical [...] NSAIDs Assessment & Plan (10/24/2020 6:08 AM ROTARY DRYER OPERATOR): Nina is an 20yo with past medical [...] 10/25/2020 Assessment & Plan (10/25/2020 10:34 AM ROTARY DRYER OPERATOR): Hematemesis occurred in setting of intractable vomiting for several day duration. 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 - IV Protonix q 12 hours - Avoid NSAIDs Assessment & Plan (10/24/2020 2:10 AM ROTARY DRYER OPERATOR): Hematemesis occurred in setting of intractable vomiting [...] 10/01/2021 Assessment & Plan (10/26/2020 10:30 AM ROTARY DRYER OPERATOR): Symptoms of dehydration include decreased urination and delayed capillary refill (identified on exam in ED). She completed a normal saline bolus in the ED. Once she is able to tolerate adequate oral hydration, IV fluids will be discontinued. - Continue mIV fluids Assessment & Plan (10/25/2020 10:35 AM ROTARY DRYER OPERATOR): Symptoms of dehydration include decreased urination and delayed capillary refill (identified on exam in ED). She completed a normal saline bolus in the ED. Once she is able to tolerate adequate oral hydration, IV fluids will be discontinued. - Continue mIV fluids Assessment & Plan (10/24/2020 2:11 AM ROTARY DRYER OPERATOR): Symptoms of dehydration include decreased urination and delayed capillary refill (identified on exam in ED). She completed a normal saline bolus in the ED. - Continue mIV fluids Mild malnutrition 09/15/2019 08/22/2020 Assessment & Plan (09/19/2019 10:53 AM ROTARY DRYER OPERATOR): 15 pound weight loss over several months due to chronic nausea and vomiting with resultant poor appetite. - Manage nausea symptoms - nutrition consult Assessment & Plan (09/18/2019 12:24 PM ROTARY DRYER OPERATOR): 15 pound weight loss over several months due to chronic nausea and vomiting with resultant poor appetite. - Manage nausea symptoms - nutrition consult Assessment & Plan (09/17/2019 3:13 PM ROTARY DRYER OPERATOR): 15 pound weight loss over several months due to chronic nausea and vomiting with resultant poor appetite. - Manage nausea symptoms - nutrition consult - Consider cyproheptadine Assessment & Plan (09/16/2019 11:43 AM ROTARY DRYER OPERATOR): 15 pound weight loss over several months due to chronic nausea and vomiting with resultant poor appetite. - Manage nausea symptoms - nutrition consult - Consider cyproheptadine Assessment & Plan (09/15/2019 3:00 PM ROTARY DRYER OPERATOR): 15 pound weight loss over several months due to chronic nausea and vomiting with resultant poor appetite. 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 08/17/2018 Encounters Date Type Department Care Team Description 02/25/2025 4:00 PM CDT Clinical Support [facility] [address] [address] Encounter for PPD skin test reading (Primary Dx) 02/23/2025 12:45 PM CDT Clinical Support [facility] [address] [address] Encounter for PPD skin test reading (Primary Dx) 02/18/2025 2:30 PM CDT Clinical Support [facility] [address] [address] Encounter for PPD skin test reading (Primary Dx) 02/16/2025 12:00 PM CDT Office Visit [facility] [address] [address] Beatriz Cardenas NP School physical exam (Primary Dx); Screening for tuberculosis from Last 3 Months Immunizations Immunization Administration Dates Next Due DTaP 02/23/2006, 3,2002,07/07,2002 [...] 09/02/2019,08/17/2018 Meningococcal MCV4P (Menactra) 08/17/2018,2013 PPD TEST 02/23/2025,02/16/2025,02/23/2006 Pfizer SARS-CoV-2 Monovalent Vaccination (12+ Yrs) PURPLE [...] sinus arrhythmia with short OH Anxiety 07/20/2019 Biliary dyskinesia Migraine headache Mononucleosis Small intestinal bacterial o vergrowth (SIBO) Social History Tobacco Use Types Packs/Day Years Used Date Smoking Tobacco: Never Smokeless Tobacco: Never Alcohol Use Standard Drinks/Week Comments Never 0 (1 standard drink = 0.6 oz pur e alcohol) Social Connection and Isolation Panel Answer Date Recorded In a typical week, how many times do you talk on the phone with family, friends, or neighbors? More than three times a week 01/13/2023 How often do you get togethe r with friends or relatives? More than three times a week 01/13/2023 How often do you attend chur or bahai services? More than 4 times per year 01/13/2023 Do you belong to any clubs o r organizations such as pentecostal groups, unions, fraternal or athletic groups, or [...] place to sleep or slept in a skilled nursing (including now)? No 01/13/2023 Personal Safety Answer Date Recorded Have you ever been in or are you currently in a harmful physical or emotional relationship or is someone making you feel afraid or unsafe? Denies 01/12/2023 Comments No Sex and Gender Information Value Date Recorded Sex Assigned at Not on file Legal Sex Female 11:42 PM ROTARY DRYER OPERATOR Gender Identity Not on file Sexual Orientation Not on file Obstetrics History Last Filed Vital Signs Vital Sign Reading Time Taken Comments Blood Pressure 138/90 02/16/2025 12:07 PM CDT Pulse 90 02/16/2025 12:07 PM CDT Temperature 36.4 C (97.6 F) 02/16/2025 12:07 PM CDT Respiratory Rate 18 02/16/2025 12:0 7 PM CDT Oxygen Saturation 99% 02/16/2025 12: 07 PM CDT Inhaled Oxygen Concentration - - Weight 106.7 kg (235 lb 3.2 oz) 025 12:07 PM CDT Height 160 cm (5' 2.99) 02/16/2025 12: 07 PM CDT Body Mass Index 41.67 02/16/2025 12:07 PM CDT Plan of Treatment Health Maintenance Due Date Last Done Comments Cervical Cancer Screening 2002 Hepatitis C Screening 2002 Pneumococcal vaccine <65 (1 of 1 - PPSV23, PCV20, or PCV21) 02/22/2008 02/24/2003, 2002, 2002 Depression Screening 10/01/2022 10/01/2021, 09/02/2019, 06/28/2019, Additional history exists Regular Well Visit/Exam 18-64 10/01/2022 10/01/2021 Covid-19 Vaccine (4 - 2023-2 5 season) 2024 07/23/2021, 11/24/2020, 11/01/2020 Influenza Vaccine (#1) 2025 , 08/21/2020, 07/31/2020, Additional history exists DTaP/Tdap/Td Vaccine (8 - Td or Tdap) 10/01/2031 10/01/2021, 03/25/2013, 02/23/2006, Additional history exists Hepatitis B Screening Completed 2002 , 2002, 2002 Varicella Vaccines Completed 02/01/2008, 02/24/2003 HPV Vaccines Completed 06/09/2016, 04/0 02/2016, 02/22/2015 Meningococcal B Vaccine Completed 09/02/2019, 08/17 Procedures Procedure Name Priority Date/Time Associated Diagnosis Comments PPD TEST Routine 02/23/2025 12:45 PM CDT Encounter for PPD skin test reading PPD TEST Routine 02/18/2025 2:33 PM CDT Screening for tuberculosis from Last 3 Months Results * PPD Test (02/23/2025 12:45 PM CDT) TB Skin Test Negative Negative Induration 0 mm Other 02/23/2025 12:4 5 PM CDT Dorinda Hobbs RECOVERY COORDINATOR POINT OF CARE TEST ORDERAB LES Final Result * PPD Test (02/18/2025 2:33 PM CDT) TB Skin Test Negative Negative Induration 0 mm Other 02/18/2025 2:33 PM CDT Beatriz Cardenas RECOVERY COORDINATOR POINT OF CARE TEST ORDERABLES Final Result from Last 3 Months Insurance [employer] OPEN ACCESS [facility] OPEN ACCESS [facility] CHOICE PLUS [facility] Advance Directives For more information, please contact: [phone] Documents on File Type Date Recorded Patient Supervisor Model Making Expl anation ADVANCE DIRECTIVE 02/01/2021 9:08 AM [...] 9:45 PM 07/23/2019 7:58 PM Care Teams Shell Grader Relationship Specialty [place] [address] [place] [address] PCP - General Physician Plant Wire Chief 01/27/23 Johnna Tinajero MD [address] [address] 07/19/19 Luciano Edwards MD [address] [address] Consulting Physician General Surgery 02/01/21 [place] [address] [place] [address] Consulting Physician Gastroenterology 01/15/23
--- OUTSIDE RECORDS SUMMARY | 2025-04-16 22:16 | XMS_ITS | Encounter Summary ---
Author Organization [facility] Healthcare Address [address] [place] [address] Care Team Providers Care Wildland Firefighter Name Role Phone Johnna Tinajero MD Primary Care Provider + Johnna Tinajero MD Unavailable [phone] Luciano Edwards MD Unavailable [phone] Arian Adam MD Unavailable [phone] Vicki Johnson Primary Care Pr ovider Encounter Details Date Type Department Care Team (Late st Contact Info) Description 01/03/2021 Telephone [facility] - Imaging [address] [place] [address] [place] [address] [place] [address] Social History Tobacco Use Types [...] on file Legal Sex Female 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 Gender Identity Not on file Sexual Orientation Not on file documented as of this encounter Plan of Treatment Not on file documented as of this encounter Visit Diagnoses Not on filedocumented in this encounter Care Teams Wildland Firefighter Relationship Specialty Start Date End Date Johnna Tinajero MD [address] [address] PCP - General Pediatrics 07/19/19 01/26/23 [place] [address] [place] [address] PCP - General Physician Training Engineer 01/27/23 Johnna Tinajero MD [address] [address] 07/19/19 Luciano Edwards MD [address] [address] Consulting Physician General Surgery 02/01/21 [place] [address] [place] [address] Consulting Physician Gastroenterology 01/15/23 documented as of this encounter
[2025-04-17 02:05] VITALS: BP 126/91; PULSE 87; RESP 16; O2SAT 99
--- OUTSIDE RECORDS SUMMARY | 2025-04-17 02:50 | XMS_ITS | Encounter Summary ---
Author Organization [facility] Healthcare Address [address] [place] [address] Care Team Providers Care Finisher Merchant Products Name Role Phone Johnna Tinajero MD Primary Care Provider + Johnna Tinajero MD Unavailable [phone] Luciano Edwards MD Unavailable [phone] Arian Adam MD Unavailable [phone] Vicki Johnson Primary Care Pr ovider Encounter Details Date Type Department Care Team (Late st Contact Info) Description 01/03/2021 Telephone [facility] - Imaging [address] [place] [address] [place] [address] [place] [address] Social History Tobacco Use Types [...] on file Legal Sex Female 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 Gender Identity Not on file Sexual Orientation Not on file documented as of this encounter Plan of Treatment Not on file documented as of this encounter Visit Diagnoses Not on filedocumented in this encounter Care Teams Finisher Merchant Products Relationship Specialty Start Date End Date Johnna Tinajero MD [address] [address] PCP - General Pediatrics 07/19/19 01/26/23 [place] [address] [place] [address] PCP - General Physician Rehabilitation Counselor 01/27/23 Johnna Tinajero MD [address] [address] 07/19/19 Luciano Edwards MD [address] [address] Consulting Physician General Surgery 02/01/21 [place] [address] [place] [address] Consulting Physician Gastroenterology 01/15/23 documented as of this encounter
--- OUTSIDE RECORDS SUMMARY | 2025-04-17 02:50 | XMS_ITS | Clinical Summary ---
Author Organization [facility] Address [address] [place] [address] Care Team Providers Care Customer Expert Name Role Phone Johnna Tinajero MD Unavailable [phone] Luciano Edwards MD Unavailable [phone] Arian Adam MD Unavailable Vicki Johnson Primary [...] (01/16/2021): Added automatically from request for surgery [id number] Vomiting without nausea 08/22/2020 Overview (08/22/2020): Added automatically from request for surgery [id number] Vasovagal syncope 10/25/2019 Assessment & Plan (11/06/2019 [...] consult Assessment & Plan (11/05/2019 2:21 PM PRIME BROKER): Nina presented following several syncopal episodes lasting [...] teaching Assessment & Plan (11/04/2019 5:26 PM PRIME BROKER): Nina presented following several syncopal episodes lasting [...] recommendations Assessment & Plan (11/03/2019 5:10 AM PRIME BROKER): Several syncopal episodes lasting seconds to minutes. [...] Clinic Assessment & Plan (11/05/2019 2:18 PM PRIME BROKER): GI was consulted as she was scheduled [...] Clinic Assessment & Plan (11/04/2019 5:27 PM PRIME BROKER): GI was consulted as she was scheduled [...] Clinic Assessment & Plan (09/19/2019 11:51 AM PRIME BROKER): 2 month history of worsening nausea with [...] contrast Assessment & Plan (09/18/2019 12:24 PM PRIME BROKER): 2 month history of worsening nausea with [...] clear. Assessment & Plan (09/17/2019 3:13 PM PRIME BROKER): 2 month history of worsening nausea with [...] week Assessment & Plan (09/16/2019 11:48 AM PRIME BROKER): 2 month history of worsening nausea with [...] week Assessment & Plan (09/15/2019 3:01 PM PRIME BROKER): 2 month history of worsening nausea with [...] prn Assessment & Plan (09/14/2019 1:01 PM PRIME BROKER): 2 month history of worsening nausea with [...] UDS Assessment & Plan (09/13/2019 7:51 PM PRIME BROKER): 2 month history of worsening nausea with [...] 07/20/2019 Assessment & Plan (09/19/2019 10:53 AM PRIME BROKER): Right lower quadrant abdominal pain began in [...] OCP Assessment & Plan (09/18/2019 12:17 PM PRIME BROKER): Right lower quadrant abdominal pain began in [...] OCP Assessment & Plan (09/17/2019 3:13 PM PRIME BROKER): Right lower quadrant abdominal pain began in [...] OCP Assessment & Plan (09/16/2019 11:42 AM PRIME BROKER): Right lower quadrant abdominal pain began in [...] OCP Assessment & Plan (09/15/2019 2:52 PM PRIME BROKER): Right lower quadrant abdominal pain began in [...] OCP Assessment & Plan (09/14/2019 1:00 PM PRIME BROKER): Right lower quadrant abdominal pain began in [...] OCP Assessment & Plan (09/13/2019 7:46 PM PRIME BROKER): Right lower quadrant abdominal pain began in [...] OCP Assessment & Plan (07/23/2019 12:28 PM PRIME BROKER): 19 year old girl with PMH obesity, [...] -encourage oral intake - regular diet, POAL -WEB ANALYST following -Scheduled tylenol and toradol q6hr for pain -start OCP with discharge and f/u with gynecology -f/u DHES-A, Testosterone results Assessment & Plan (07/22/2019 9:02 AM PRIME BROKER): 19 year old girl with PMH obesity, [...] amount of free fluid in posterior cul-de-sac -WEB ANALYST following -Schd tylenol and toradol q6hr for pain - f/u FSH, LH, prolactin, DHEAS, free and total testerone; if wnl can start OCP Assessment & Plan (07/21/2019 12:42 PM PRIME BROKER): 19 year old girl with PMH obesity, [...] cul-de-sac Assessment & Plan (07/20/2019 1:18 AM PRIME BROKER): 19 year old girl with PMH obesity, [...] 07/20/2019 Assessment & Plan (07/23/2019 12:26 PM PRIME BROKER): History of numerous hospitalizations due to asthma exacerbations in childhood, with several day long stay in PICU 5 or 6 years ago (no intubations). Asthma presently well-controlled on regimen of qHS breo inhaler, with no hospitalizations or exacerbations in last several years. - continue qHS breo - albuterol PRN q4hrs Assessment & Plan (07/22/2019 9:02 AM PRIME BROKER): History of numerous hospitalizations due to asthma exacerbations in childhood, with several day long stay in PICU 5 or 6 years ago (no intubations). Asthma presently well-controlled on regimen of qHS breo inhaler, with no hospitalizations or exacerbations in last several years. - continue qHS breo - albuterol PRN q4hrs Assessment & Plan (07/21/2019 7:29 AM PRIME BROKER): History of numerous hospitalizations due to asthma exacerbations in childhood, with several day long stay in PICU 5 or 6 years ago (no intubations). Asthma presently well-controlled on regimen of qHS breo inhaler, with no hospitalizations or exacerbations in last several years. - continue qHS breo - albuterol PRN q4hrs Assessment & Plan (07/20/2019 1:12 AM PRIME BROKER): History of numerous hospitalizations due to asthma exacerbations in childhood, with several day long stay in PICU 5 or 6 years ago (no intubations). Asthma presently well-controlled on regimen of qHS breo inhaler, with no hospitalizations or exacerbations in last several years. - continue qHS breo - albuterol PRN q4hrs Anxiety 07/20/2019 Assessment & Plan (07/23/2019 12:26 PM PRIME BROKER): Followed by therapist, patient states that therapy [...] qHS Assessment & Plan (07/22/2019 7:17 AM PRIME BROKER): Followed by therapist, patient states that therapy [...] qHS Assessment & Plan (07/21/2019 7:29 AM PRIME BROKER): Followed by therapist, patient states that therapy [...] qHS Assessment & Plan (07/20/2019 1:14 AM PRIME BROKER): Followed by therapist, patient states that therapy [...] Neurology. Assessment & Plan (11/05/2019 2:27 PM PRIME BROKER): Patient with daily headaches for the past [...] 10/01/2021 Assessment & Plan (10/26/2020 2:12 PM PRIME BROKER): Nina is an 20yo with past medical [...] NSAIDs Assessment & Plan (10/25/2020 1:21 PM PRIME BROKER): Nina is an 20yo with past medical [...] NSAIDs Assessment & Plan (10/24/2020 6:08 AM PRIME BROKER): Nina is an 20yo with past medical [...] 10/25/2020 Assessment & Plan (10/25/2020 10:34 AM PRIME BROKER): Hematemesis occurred in setting of intractable vomiting for several day duration. 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 - IV Protonix q 12 hours - Avoid NSAIDs Assessment & Plan (10/24/2020 2:10 AM PRIME BROKER): Hematemesis occurred in setting of intractable vomiting [...] 10/01/2021 Assessment & Plan (10/26/2020 10:30 AM PRIME BROKER): Symptoms of dehydration include decreased urination and delayed capillary refill (identified on exam in ED). She completed a normal saline bolus in the ED. Once she is able to tolerate adequate oral hydration, IV fluids will be discontinued. - Continue mIV fluids Assessment & Plan (10/25/2020 10:35 AM PRIME BROKER): Symptoms of dehydration include decreased urination and delayed capillary refill (identified on exam in ED). She completed a normal saline bolus in the ED. Once she is able to tolerate adequate oral hydration, IV fluids will be discontinued. - Continue mIV fluids Assessment & Plan (10/24/2020 2:11 AM PRIME BROKER): Symptoms of dehydration include decreased urination and delayed capillary refill (identified on exam in ED). She completed a normal saline bolus in the ED. - Continue mIV fluids Mild malnutrition 09/15/2019 08/22/2020 Assessment & Plan (09/19/2019 10:53 AM PRIME BROKER): 15 pound weight loss over several months due to chronic nausea and vomiting with resultant poor appetite. - Manage nausea symptoms - nutrition consult Assessment & Plan (09/18/2019 12:24 PM PRIME BROKER): 15 pound weight loss over several months due to chronic nausea and vomiting with resultant poor appetite. - Manage nausea symptoms - nutrition consult Assessment & Plan (09/17/2019 3:13 PM PRIME BROKER): 15 pound weight loss over several months due to chronic nausea and vomiting with resultant poor appetite. - Manage nausea symptoms - nutrition consult - Consider cyproheptadine Assessment & Plan (09/16/2019 11:43 AM PRIME BROKER): 15 pound weight loss over several months due to chronic nausea and vomiting with resultant poor appetite. - Manage nausea symptoms - nutrition consult - Consider cyproheptadine Assessment & Plan (09/15/2019 3:00 PM PRIME BROKER): 15 pound weight loss over several months due to chronic nausea and vomiting with resultant poor appetite. 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 08/17/2018 Encounters Date Type Department Care Team Description 02/25/2025 4:00 PM CDT Clinical Support [facility] [address] [address] Encounter for PPD skin test reading (Primary Dx) 02/23/2025 12:45 PM CDT Clinical Support [facility] [address] [address] Encounter for PPD skin test reading (Primary Dx) 02/18/2025 2:30 PM CDT Clinical Support [facility] [address] [address] Encounter for PPD skin test reading (Primary Dx) 02/16/2025 12:00 PM CDT Office Visit [facility] [address] [address] Beatriz Cardenas NP School physical exam (Primary [...] rhythm with sinus arrhythmia with short AK Anxiety 07/20/2019 Biliary dyskinesia Migraine headache Mononucleosis [...] How often do you attend chur or orthodoxy services? More than 4 times per year 01/13/2023 Do you belong to any clubs o r organizations such as sabianist groups, unions, fraternal or athletic groups, or [...] place to sleep or slept in a correction (including now)? No 01/13/2023 Personal Safety Answer Date Recorded Have you ever been in or are you currently in a harmful physical or emotional relationship or is someone making you feel afraid or unsafe? Denies 01/12/2023 Comments No Sex and Gender Information Value Date Recorded Sex Assigned at Not on file Legal Sex Female 11:42 PM PRIME BROKER Gender Identity Not on file Sexual Orientation [...] 02/23/2025 12:4 5 PM CDT Dorinda Hobbs TELETRAY OPERATOR POINT OF CARE TEST ORDERAB LES Final Result * PPD Test (02/18/2025 2:33 PM CDT) TB Skin Test Negative Negative Induration 0 mm Other 02/18/2025 2:33 PM CDT Beatriz Cardenas TELETRAY OPERATOR POINT OF CARE TEST ORDERABLES Final Result from Last 3 Months Insurance [employer] [facility] H[employer]/PPO Address: [address] [place] [address] [facility] H[facility]/PPO Address: [address] [address] [place] [address] [facility] Advance Directives For more information, please contact: [phone] Documents on File Type Date Recorded Patient Senior Administrative Support Expl anation ADVANCE DIRECTIVE 02/01/2021 9:08 AM [...] 9:45 PM 07/23/2019 7:58 PM Care Teams Customer Expert Relationship Specialty [place] [address] [place] [address] PCP - General Physician Fur Vault Attendant 01/27/23 Johnna Tinajero MD [address] [address] 07/19/19 Luciano Edwards MD [address] [address] Consulting Physician General Surgery 02/01/21 [place] [address] [place] [address] Consulting Physician Gastroenterology 01/15/23
--- OUTSIDE RECORDS SUMMARY | 2025-04-17 02:50 | XMS_ITS | Clinical Summary ---
Author Organization [facility] Address [address] [place] [address] Care Team Providers Care Machine Operator Hop Picker Name Role Phone Johnna Tinajero MD Primary Care Provider + Source Comments [facility],non-owned Affiliates and Associated Physician Practices is amultiple site organization consisting of ambulatory clinics and hospital sitesin [place], [place], [place] and [place]. This disclosure is being madepursuant to the Care Everywhere program and may not contain all information available regarding this patient. Last updated 18.[facility] Allergies Active Allergy Reactions Criticality Noted Date [...] fluticasone propionate (FLONASE) 50 MCG/ACT nasal spray [place] 2 sprays into each nostril once daily [...] on file Legal Sex Female 11:31 AM PRODUCT SAFETY CONSULTANT Gender Identity Not on file Sexual Orientation Not on file Last Filed Vital Signs Vital Sign Reading Time Taken Comments Blood Pressure 120/82 08/21/2021 2:11 PM PRODUCT SAFETY CONSULTANT Pulse 80 08/21/2021 2:11 PM PRODUCT SAFETY CONSULTANT Temperature 36.6 C (97.9 F) 08/21/2021 2:11 PM PRODUCT SAFETY CONSULTANT Respiratory Rate 18 08/21/2021 2:11 PM PRODUCT SAFETY CONSULTANT Oxygen Saturation 99% 08/21/2021 2:11 PM PRODUCT SAFETY CONSULTANT Inhaled Oxygen Concentration - - Weight 90.7 kg (200 lb) 08/21/2021 2:11 PM PRODUCT SAFETY CONSULTANT Height 160 cm (5' 3) 08/21/2021 2:11 PM PRODUCT SAFETY CONSULTANT Body Mass Index 35.43 08/21/2021 2:11 PM PRODUCT SAFETY CONSULTANT Plan of Treatment Health Maintenance Due Date [...] complete this topic Insurance ANTH Care Teams Machine Operator Hop Picker Relationship Specialty Start Date End Date Johnna Tinajero MD [address] [address] PCP - General Pediatrics 09/23/17
--- OUTSIDE RECORDS SUMMARY | 2025-04-17 02:50 | XMS_ITS | Patient Health Record ---
Author Organization [facility] Address [address] [place] [address] Care Team Providers Care Profile Grinder Technician Name Role Phone Madyson Bliss Unavailable [phone] Reason For Referral No Information Medications Medication SIG (Take, Route, Frequency, Duration) Notes Start Date End Date Status Neomycin Sulfate 500 mg Oral 12/02/2022 Active Metoclopramide HCl 5 MG Oral 12/02/2022 Active ProAir HFA 108 (90 Base) MCG/ACT Inhalation 12/02/2022 Active PLENVU 140 GRAM-9 GRAM-5.2 GRAM POWDER PACKS *Reorder from [facility] for eRx and Interaction Alerts* 12/02/2022 Active [...] MCG-VILANTEROL 25 MCG/DOSE INHALATION POWDER *Reorder from [facility] for eRx and Interaction Alerts* 12/02/2022 Active Topiramate 25 MG Oral 12/02/2022 Ac tive Breo Ellipta 100-25 MCG/INH Inhalation 12/02/2022 Active TRI-LO-ESTRELLITA 0.18/0.215/0.25 MG-25 MCG TABLET *Reorder from [facility] for eRx and Interaction Alerts* 12/02/2022 Active Ciprofloxacin HCl 500 MG Oral 12/02/2022 Active Immunizations Vaccine Route Administration Date Status Comme nts Pfizer Biontech Covid-19 Vac cine 2nd dose Unknown 11/01/2020 Administered Pfizer Biontech Covid-19 Vac cine 2nd dose Unknown 11/24/2020 Administered Pfizer Biontech Covid-19 Vac cine 2nd dose Unknown 07/25/2021 Administered Novel [id number], preservative free Unknown 07/21/2018 Administered Novel [id number], preservative free Unknown 06/22/2019 Administered Influenza, seasonal, injecta ble, preservative free, 3 yrs and above Unknown 06/29/2013 Administered Influenza, seasonal, injecta ble, preservative free, 3 yrs and above Unknown 06/05/2014 Administered Influenza, seasonal, injecta ble, preservative free, 3 yrs and above Unknown 07/03/2015 Administered Influenza, injectable, MDCK, preservative free Unknown 08/21/2020 Administered Influenza virus vaccine, quadrivalent (IIV4), split virus, 0.25 mL dosage Unknown 06/22/2019 Administered Influenza virus vaccine, quadrivalent (IIV4), split virus, 0.25 mL dosage Unknown 07/25/2021 Administered Plan Of Treatment No Information Insurance Providers Payer Name Payer Address Payer Phone Subscriber Number Group Number Insured Name Patient Relationship to Insured Coverage Start Date Coverage End Date [employer] Ppo [address] [place] [address] [phone] [id number] NAILA BAUTISTA Self - patient is the insured Medical (General) History Surgical History Surgery Date(Month/Year) Procedure on wrist ([id number]) Removal of gallbladder (04284) 1
--- NOTE | 2025-04-17 03:00 | ED.ABDPAIN ---
HPI - Abdominal Pain General Chief Complaint: Abdominal Pain <Ki Collins MD - Last Filed: 04/17/25 07:14> Stated Complaint: abdominal pain <Ki Collins MD - Last Filed: 04/17/25 07:14> Time Seen by Provider: 04/17/25 02:04 <Ki Collins MD - Last Filed: 04/17/25 07:14> History of Present Illness HPI narrative: 25-year-old otherwise healthy female presenting to the emergency depart with right lower quadrant abdominal pain sudden-onset and stabbing in quality. Radiates towards her left-sided abdomen associated with nausea without vomiting. No diarrhea, constipation, dysuria or UTI symptoms. She has a history of previous urinary infections as well as a previous cholecystectomy. States her symptoms feel similar to when she had a kidney infection. No history of kidney stones. No traumatic injuries and she was otherwise in her normal state of health. No fever, chills, bowel habit changes or any chance of . Denies any chronic medications aside from albuterol. Symptoms onset several hours ago and progressive throughout the evening. <Ki Collins MD - Last Filed: 04/17/25 07:14> Related Data Home Medications: Home Medications ?Medication ?Instructions ?Recorded ?Confirmed ?Last Taken ?Type albuterol sulfate 90 mcg/actuation 1 inhalation inhalation Q4H 08/16/19 06/02/24 Unknown History aerosol inhaler (ProAir HFA) fluticasone furoate 100 inhalation 01/12/21 06/02/24 Unknown History mcg-vilanterol 25 mcg/dose inhalation powder (Breo Ellipta) sertraline 25 mg tablet 25 mg PO DAILY 06/02/24 06/02/24 Unknown History <Ki Collins MD - Last Filed: 04/17/25 07:14> Allergies/Adverse Reactions: Allergies Allergy/AdvReac Type Severity Reaction Status Date / Time Penicillins AdvReac Nausea and Verified 10/04/24 14:03 Vomiting <Ki Collins MD - Last Filed: 04/17/25 07:14> Review of Systems Review of Systems: As reviewed above in HPI <Ki Collins MD - Last Filed: 04/17/25 07:14> [facility] Past Medical History Medical History: Medical History Migraine Depression Asthma Anxiety Acid reflux <Ki Collins MD - Last Filed: 04/17/25 07:14> Surgical History Surgical History: Surgical History S/P cholecystectomy H/O wrist surgery <Ki Collins MD - Last Filed: 04/17/25 07:14> Social History Social History: Social History Smoking status: Never smoker Alcohol intake: never Substance use: never Lack of Transportation: No Lack of Food: Never True Current Housing: I Have Housing Concerned About Future Housing: No Difficulty Paying Gas/Electric Bills: No Difficulty Paying for Meds: No Currently Unemployed: No Education: High School Diploma/GED Difficulty w/ Childcare or Family Care: No <Ki Collins MD - Last Filed: 04/17/25 07:14> Exam Narrative: GENERAL: Obese but well-appearing and not in any acute distress HEAD: [Normocephalic, atraumatic.] EYES: [PERRLA and EOMI.] ENT: Nares clear, no rhinorrhea or epistaxis. Mucous membranes moist. NECK: Supple. CHEST: [Clear to auscultation. No respiratory distress.] HEART: [Regular rate and rhythm]. No murmur heard. [Normal peripheral pulses.] ABDOMEN: Soft and nondistended, reproducible tenderness in the right lower quadrant without rebound or guarding, no peritonitis EXTREMITIES: Normal range of motion. [No edema.] SKIN: Warm, dry, no rash. NEURO: [No focal deficits]. Alert and oriented [x3.] PSYCH: [Normal mood and affect.] <Ki Collins MD - Last Filed: 04/17/25 07:14> Course Reevaluation(s) Reevaluation #1: I discussed with patient that US was unremarkable. I reviewed CT report from STAT rad and appendix noted to be normal as well. I discussed pain and discharge instructions to follow up with OBGYN. She will get additional dose of pain medication prior to discharge. <Ligia Wilcox MD - Last Filed: 04/17/25 08:38> Date: 04/17/25 <Ligia Wilcox MD - Last Filed: 04/17/25 08:38> Time: 08:36 <Ligia Wilcox MD - Last Filed: 04/17/25 08:38> Vital Signs Vital signs: Vital Signs Temperature 98 F 04/16/25 22:15 Pulse Rate 92 04/16/25 22:15 Respiratory Rate 16 04/16/25 22:15 Blood Pressure 144/105 H 04/16/25 22:15 Pulse Oximetry 100 04/16/25 22:15 Oxygen Delivery Room Air 04/16/25 22:15 Temperature 98 F 04/16/25 22:15 Pulse Rate 87 04/17/25 07:37 Respiratory Rate 14 04/17/25 07:37 Blood Pressure 121/84 04/17/25 07:37 Pulse Oximetry 100 04/17/25 07:37 Oxygen Delivery Room Air 04/16/25 22:15 <Ki Collins MD - Last Filed: 04/17/25 07:14> Vital Signs Temperature 98 F 04/16/25 22:15 Pulse Rate 92 04/16/25 22:15 Respiratory Rate 16 04/16/25 22:15 Blood Pressure 144/105 H 04/16/25 22:15 Pulse Oximetry 100 04/16/25 22:15 Oxygen Delivery Room Air 04/16/25 22:15 Temperature 98 F 04/16/25 22:15 Pulse Rate 87 04/17/25 07:37 Respiratory Rate 14 04/17/25 07:37 Blood Pressure 121/84 04/17/25 07:37 Pulse Oximetry 100 04/17/25 07:37 Oxygen Delivery Room Air 04/16/25 22:15 <Ligia Wilcox MD - Last Filed: 04/17/25 08:38> MDM - Abdominal Pain MDM Narrative Medical decision making narrative: 25-year-old otherwise healthy female presenting to the emergency depart with right lower quadrant abdominal pain sudden-onset and stabbing in quality. Radiates towards her left-sided abdomen associated with nausea without vomiting. No diarrhea, constipation, dysuria or UTI symptoms. She has a history of previous urinary infections as well as a previous cholecystectomy. States her symptoms feel similar to when she had a kidney infection. No history of kidney stones. No traumatic injuries and she was otherwise in her normal state of health. No fever, chills, bowel habit changes or any chance of . Denies any chronic medications aside from albuterol. Symptoms onset several hours ago and progressive throughout the evening. Patient does have reproducible tenderness in the right lower quadrant. She is overall well-appearing and not in any discomfort. Awake alert oriented. Afebrile without any tachycardia, tachypnea or significant concerns for blood pressure. Symptoms sound like that could be consistent with appendicitis, gastroenteritis, colitis, UTI or pyelonephritis less likely, renal stone possible. Low suspicion ovarian pathology. She is overall well-appearing. CBC, CMP, lipase, urinalysis and CT scan with contrast obtained after test. She is given Toradol and fluids as well as a dose of Zofran and re-evaluated. CT scan shows unremarkable appendix, there is a 4.5 cm adnexal cyst which is the likely source of patient's pain etiology. Ultrasound was ordered at this time to rule out ovarian torsion. Patient re-evaluated and still in some discomfort so morphine was ordered at this time. Her laboratory studies are largely unremarkable which is reassuring. Patient care signed over to oncoming ER physician pending ultrasound results and final disposition based on imaging. <Ki Collins MD - Last Filed: 04/17/25 07:14> Medical Records Attestation: I reviewed the patient's medical records. <Ki Collins MD - Last Filed: 04/17/25 07:14> Lab Data Attestation: I reviewed the patient's lab results. <Ki Collins MD - Last Filed: 04/17/25 07:14> Result diagrams: 04/17/25 03:01 04/17/25 03:00 <Ki Collins MD - Last Filed: 04/17/25 07:14> Labs: Lab Results 04/17/25 04/17/25 04/17/25 Range/Units 03:00 03:01 03:05 WBC 9.8 (4.5-10.0) K/mm3 RBC 4.49 (4.2-5.4) M/mm3 Hgb 12.9 (12.0-15.0) g/dL Hct 40.2 (37.0-47.0) % MCV 89.5 (80-100) fl MCH 28.7 (26-34) pg MCHC 32.1 (32-36) g/dl RDW 13.5 (11.5-14.5) % Plt Count 359 (150-375) k/mm3 MPV 9.8 (7.4-10.4) fl Immature Gran % (Auto) 0.4 (0-0.5) % Neut % (Auto) 48.4 (45.5-73.1) % Lymph % (Auto) 38.1 (18.3-44.2) % [place] % (Auto) 9.2 H (2.6-8.5) % Eos % (Auto) 3.2 (0-4.4) % Baso % (Auto) 0.7 (0.2-1.2) % Lymph # (Auto) 3.75 H (0.9-3.2) K/mm3 [place] # (Auto) 0.9 H (0.1-0.6) K/mm3 Eos # (Auto) 0.3 (0-0.3) K/mm3 Baso # (Auto) 0.1 (0.0-0.1) K/mm3 Abs Immat Gran (auto) 0.04 H (0.00-0.031) K/mm3 Absolute Neuts (auto) 4.8 (1.3-6.7) K/mm3 Absolute Nucleated RBC 0.000 (0.0-0.012) K/mm3 Nucleated RBC % 0.0 (0.0-0.2) % Sodium 137 (137-145) mmol/L Potassium 4.1 (3.4-5.0) mmol/L Chloride 107 (98-107) mmol/L Carbon Dioxide 21 L (22-30) mmol/L Anion Gap 9 (4-12) mmol/L BUN 13 (7-17) mg/dL Creatinine 0.85 (0.7-1.0) mg/dL Estim Creat Clear Calc 105 ml/min Estimated GFR > 60 (59 - ) Glucose 95 (65-110) mg/dL Calcium 9.0 (8.4-10.2) mg/dL Total Bilirubin 0.8 (0.2-1.3) mg/dL AST 43 H (14-36) U/L ALT 25 (6-35) U/L Alkaline Phosphatase 69 (38-126) U/L Total Protein 7.8 (6.3-8.2) g/dL Albumin 4.0 (3.5-5.1) g/dL Lipase 50 (23-300) U/L Urine Color Yellow (Yellow) Urine Appearance Clear (Clear) Urine pH 5.5 (5.0-9.0) Ur Specific [place] 1.041 H (1.001-1.035) Urine Protein Trace (Negative) mg/dL Urine Glucose (UA) Negative (Negative) mg/dL Urine Ketones 1+ H (Negative) mg/dL Ur Blood (Man) Negative (Negative) Urine Nitrate Negative (Negative) Urine Bilirubin Negative (Negative) Urine Urobilinogen 1.0 (<2.0) mg/dL Leukocyte Esterase Rfl Negative (Negative) TERRY/UL Urine RBC 0-2 (0-2) /hpf Urine WBC 6-10 H (0-3) /hpf Ur Squamous Epith Cells Few (Few) /hpf Urine Bacteria Rare /hpf Urine Casts 0-2 POC Urine HCG, Qual Negative (Negative) <Ki Collins MD - Last Filed: 04/17/25 07:14> Lab Results 04/17/25 04/17/25 04/17/25 Range/Units 03:00 03:01 03:05 WBC 9.8 (4.5-10.0) K/mm3 RBC 4.49 (4.2-5.4) M/mm3 Hgb 12.9 (12.0-15.0) g/dL Hct 40.2 (37.0-47.0) % MCV 89.5 (80-100) fl MCH 28.7 (26-34) pg MCHC 32.1 (32-36) g/dl RDW 13.5 (11.5-14.5) % Plt Count 359 (150-375) k/mm3 MPV 9.8 (7.4-10.4) fl Immature Gran % (Auto) 0.4 (0-0.5) % Neut % (Auto) 48.4 (45.5-73.1) % Lymph % (Auto) 38.1 (18.3-44.2) % [place] % (Auto) 9.2 H (2.6-8.5) % Eos % (Auto) 3.2 (0-4.4) % Baso % (Auto) 0.7 (0.2-1.2) % Lymph # (Auto) 3.75 H (0.9-3.2) K/mm3 [place] # (Auto) 0.9 H (0.1-0.6) K/mm3 Eos # (Auto) 0.3 (0-0.3) K/mm3 Baso # (Auto) 0.1 (0.0-0.1) K/mm3 Abs Immat Gran (auto) 0.04 H (0.00-0.031) K/mm3 Absolute Neuts (auto) 4.8 (1.3-6.7) K/mm3 Absolute Nucleated RBC 0.000 (0.0-0.012) K/mm3 Nucleated RBC % 0.0 (0.0-0.2) % Sodium 137 (137-145) mmol/L Potassium 4.1 (3.4-5.0) mmol/L Chloride 107 (98-107) mmol/L Carbon Dioxide 21 L (22-30) mmol/L Anion Gap 9 (4-12) mmol/L BUN 13 (7-17) mg/dL Creatinine 0.85 (0.7-1.0) mg/dL Estim Creat Clear Calc 105 ml/min Estimated GFR > 60 (59 - ) Glucose 95 (65-110) mg/dL Calcium 9.0 (8.4-10.2) mg/dL Total Bilirubin 0.8 (0.2-1.3) mg/dL AST 43 H (14-36) U/L ALT 25 (6-35) U/L Alkaline Phosphatase 69 (38-126) U/L Total Protein 7.8 (6.3-8.2) g/dL Albumin 4.0 (3.5-5.1) g/dL Lipase 50 (23-300) U/L Urine Color Yellow (Yellow) Urine Appearance Clear (Clear) Urine pH 5.5 (5.0-9.0) Ur Specific [place] 1.041 H (1.001-1.035) Urine Protein Trace (Negative) mg/dL Urine Glucose (UA) Negative (Negative) mg/dL Urine Ketones 1+ H (Negative) mg/dL Ur Blood (Man) Negative (Negative) Urine Nitrate Negative (Negative) Urine Bilirubin Negative (Negative) Urine Urobilinogen 1.0 (<2.0) mg/dL Leukocyte Esterase Rfl Negative (Negative) TERRY/UL Urine RBC 0-2 (0-2) /hpf Urine WBC 6-10 H (0-3) /hpf Ur Squamous Epith Cells Few (Few) /hpf Urine Bacteria Rare /hpf Urine Casts 0-2 POC Urine HCG, Qual Negative (Negative) <Ligia Wilcox MD - Last Filed: 04/17/25 08:38> Imaging Data Attestation: I personally reviewed and interpreted this imaging study as follows: <Ki Collins MD - Last Filed: 04/17/25 07:14> My impression: Right ovarian cyst <Ki Collins MD - Last Filed: 04/17/25 07:14> Radiologist's impression: ITS Impressions Pelvis Ultrasound 04/17/25 08:23 IMPRESSION: 1. Normal pelvic ultrasound. <Ki Collins MD - Last Filed: 04/17/25 07:14> ITS Impressions Pelvis Ultrasound 04/17/25 08:23 IMPRESSION: 1. Normal pelvic ultrasound. <Ligia Wilcox MD - Last Filed: 04/17/25 08:38> Discharge Plan Discharge Clinical Impression: Abdominal pain, right lower quadrant, Cyst of right ovary <Ki Collins MD - Last Filed: 04/17/25 07:14> Patient Disposition: Still a Patient <Ki Collins MD - Last Filed: 04/17/25 07:14> Condition: Stable <Ki Collins MD - Last Filed: 04/17/25 07:14> Instructions: Antibiotic Form, Abdominal Pain (ED), Cyst (ED) <Ki Collins MD - Last Filed: 04/17/25 07:14> Patient Language: Syriac <Ki Collins MD - Last Filed: 04/17/25 07:14> Prescriptions: New ibuprofen 800 mg tablet 800 mg PO TID PRN (Reason: pain) Qty: 14 0RF No Action Breo Ellipta 100-25 mcg/dose blister with device INHALATION oseltamivir [Tamiflu] 75 mg capsule 75 mg PO Q12H 5 Days Qty: 10 0RF albuterol sulfate [ProAir HFA] 90 mcg/actuation HFA aerosol inhaler 1 inhalation INHALATION Q4H sertraline 25 mg tablet 25 mg PO DAILY norgestimate-ethinyl estradiol [Eom-Un-Dcylehjq] 0.18/0.215/0.25 mg-25 mcg tablet 1 tablet PO DAILY Qty: 84 4RF prednisone 50 mg tablet 50 mg PO DAILY 5 Days Qty: 5 0RF <Ki Collins MD - Last Filed: 04/17/25 07:14> Follow-up/Referrals: Elizabeth,LEXI Cohen [Primary Care Provider] - <Ki Collins MD - Last Filed: 04/17/25 07:14>
[2025-04-17 03:20] LABS: Hematocrit 40.2 % (37.0-47.0); Hemoglobin 12.9 g/dL (12.0-15.0); Immature Granulocyte Percent A 0.4 % (0-0.5); Lymphocytes Absolute Auto 3.75 K/mm3 (0.9-3.2); Mean Corpuscular HGB Conc 32.1 g/dl (32-36); Mean Corpuscular Hemoglobin 28.7 pg (26-34); Mean Corpuscular Volume 89.5 fl (80-100); Nucleated Red Blood Cells Absolute Auto 0.000 K/mm3 (0.0-0.012); Nucleated Red Blood Cells Perc 0.0 % (0.0-0.2); Platelet Count Result 359 k/mm3 (150-375); Red Blood Count 4.49 M/mm3 (4.2-5.4); White Blood Count 9.8 K/mm3 (4.5-10.0)
[2025-04-17 03:23] LABS: Add Urine Microscopic? YES; Appearance Urine Clear (Clear); Glucose Urine UA Negative (Negative); Leukocyte Esterase Ur Negative LEU/UL (Negative); Nitrate Urine Negative (Negative); Non Pathogenic Casts 0-2; Specific Grav Ur 1.041 (1.001-1.035)
[2025-04-17 03:27] LABS: BEDSIDEPREGUCG Negative (Negative)
[2025-04-17 03:41] LABS: Alanine Aminotransferase 25 U/L (6-35); Albumin Level 4.0 g/dL (3.5-5.1); Alkaline Phosphatase 69 U/L (38-126); Anion Gap 9 mmol/L (4-12); Aspartate Amino Transferase 43 U/L (14-36); Bilirubin,Total 0.8 mg/dL (0.2-1.3); Blood Urea Nitrogen 13 mg/dL (7-17); Calcium 9.0 mg/dL (8.4-10.2); Carbon Dioxide 21 mmol/L (22-30); Chloride 107 mmol/L (98-107); Estimated CRCL calculation 105 ml/min; Estimated Glomerular Filt Rate > 60; Glucose 95 mg/dL (65-110); Lipase 50 U/L (23-300); Potassium 4.1 mmol/L (3.4-5.0); Sodium 137 mmol/L (137-145); Total Protein 7.8 g/dL (6.3-8.2)
[2025-04-17] MEDS: ONDANSETRON INJ 4 MG/2 ML VIAL IV PUSH (03:53)
[2025-04-17] MEDS: KETOROLAC 30 MG/ML VIAL (*BKC) IV PUSH (03:53)
[2025-04-17] MEDS: LACTATED RINGERS 1,000 ML 999 ML IV CONT (03:53)
--- NOTE | 2025-04-17 05:54 | PC.NURSE ---
Radiology contacted to page out ultrasound to r/o ovarian torsion.
[2025-04-17 07:37] VITALS: BP 121/84; PULSE 87; RESP 14; O2SAT 100
[2025-04-17] MEDS: MORPHINE SULFATE (*CRX) 4 MG/ML INJ IV PUSH ×2 (07:40→08:51)
[2025-04-17 09:37] VITALS: BP 131/72; PULSE 89; RESP 15; TEMP 36.6; O2SAT 100
== END 2025-04-17 09:40 | disposition still patient (30) ==
PROVIDERS: Physician Assistant; Emergency Provider Student in an Organized Health Care Education/Training Program; PCP Physician Assistant
DX: R10.31 Right lower quadrant pain (principal); N83.201 Unspecified ovarian cyst, right side; F41.8 Other specified anxiety disorders; J45.909 Unspecified asthma, uncomplicated
CPT/HCPCS: 36415; 74176; 76856; 80053; 81001; 81025; 83690; 85025; 87086; 96361; 96374; 96375; 96376; 99284; J1885; J2270; J2405; J7120

== ENCOUNTER 2025-07-04 08:53 | Emergency (ER) | payer OTHER, SELFPAY ==
[2025-07-04 09:03] VITALS: BP 123/85; PULSE 84; RESP 16; TEMP 36.4; O2SAT 100
--- NOTE | 2025-07-04 09:03 | ED_ITS ---
HPI - Nausea/Vomiting/Diarrhea General Chief complaint: Nausea/Vomiting/Diarrhea Stated complaint: Stomach Pain/Nausea/Vomiting Time Seen by Provider: 07/04/25 09:05 Source: patient Mode of arrival: ambulatory Limitations: no limitations History of Present Illness HPI Narrative: Nina is a 25-year-old female patient presenting to the clinic today with complaints of mid abdominal aching, nausea, vomiting, and runny nose x1 days. Reports she has vomited approximately 6 times since 3:00 a.m. this morning. Last bowel movement was last night normal. Denies any blood in her vomit or stool. Last menstrual period finished on Thursday. No concern for . Denies any fevers, chills, or body aches. Rates pain 03/09 currently. Took ibuprofen last night. 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 Related Data Home Medications ?Medication ?Instructions ?Recorded ?Confirmed ?Last Taken ?Type albuterol sulfate 90 mcg/actuation 1 inhalation inhala tion Q4H 08/16/19 06/19/25 Unknown History aerosol inhaler (ProAir HFA) fluticasone furoate 100 inhalation 01/12/21 06/19/25 Unknown History mcg-vilanterol 25 mcg/dose inhalation powder (Breo Ellipta) Allergies Allergy/AdvReac Type Severity Reaction Status Date / Time Penicillins AdvReac Nausea and Verified 07/04/25 08:56 Vomiting Review of Systems Review of Systems: Pertinent positives per HPI. Patient denies any fever, chills, rash, headache, visual changes, dizziness, sore throat, shortness of breath, chest pain, palpitations, diarrhea, constipation, or any urinary issues. [facility] Past Medical History Medical History Migraine Depression Asthma Anxiety Acid reflux Surgical History Surgical History S/P cholecystectomy H/O wrist surgery Social History Social History Smoking status: Never smoker Alcohol intake: never Substance use: never Lack of Transportation: No Lack of Food: Never True Current Housing: I Have Housing Concerned About Future Housing: No Difficulty Paying Gas/Electric Bills: No Difficulty Paying for Meds: No Currently Unemployed: No Education: High School Diploma/GED Difficulty w/ Childcare or Family Care: No Comments At the time of my signature, I reviewed and agree with the nursing past medical, surgical, social, and family history. There is no relevant family history pertinent to the patient complaint. Exam Narrative: General: Well-developed, morbidly obese, in no apparent distress Head: Normocephalic, atraumatic Eyes: Pupils equally round and reactive to light bilaterally, EOM intact, sclera and conjunctive clear, no discharge, lids normal Ears: TMs intact and clear, ear canals clear, no drainage, grossly hearing no rmal. Nose: Nares patent, clear nasal discharge, mild inflammation, no sinus tenderness. Mouth: Oropharynx without lesions or masses, good dentition, MMM. Neck: Supple, trachea midline, no enlargement of anterior or posterior cervical nodes, no thyroid masses or goiter palpable. Cardio: Regular rate and rhythm, s1 and s2 normal, no murmur appreciated. Resp: Clear to auscultation bilaterally anteriorly and posteriorly, no rhonchi, rales, wheezing or rubs Abdomen: Soft, pliable, bowel sounds present in all quadrants, generalized abdomen tender to palpation, no organomegly, no CVAT tenderness. Course Course Emergency Course: Portions of this record may have been created with voice recognition software. Level of Care: Express Care Visit Vital Signs Vital signs: Vital Signs Temperature 36.4 C L 07/04/25 09:03 Pulse Rate 84 07/04/25 09:03 Respiratory Rate 16 07/04/25 09:03 Blood Pressure 123/85 07/04/25 09:03 Pulse Oximetry 100 07/04/25 09:03 Temperature 36.4 C L 07/04/25 09:03 Pulse Rate 84 07/04/25 09:03 Respiratory Rate 16 07/04/25 09:03 Blood Pressure 123/85 07/04/25 09:03 Pulse Oximetry 100 07/04/25 09:03 Vital signs reviewed MDM - Nausea/Vomiting/Diarrhea MDM Narrative Medical decision making narrative: At the time of visit patient is resting comfortably on the exam table. Patient appears to be nontoxic. Complaints of mid abdominal aching, nausea, vomiting, and runny nose x1 days. Reports she has vomited approximately 6 times since 3:00 a.m. this morning. Last bowel movement was last night normal. Denies any blood in her vomit or stool. Last menstrual period finished on Thursday. No concern for . Denies any fevers, chills, or body aches. Rates pain 7/10 currently. Took ibuprofen last night. 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 On exam patient has bilateral TMs intact and clear, clear nasal drainage, mild anterior turbinate inflammation, oral pharynx normal, no cervical lymphadenopathy, lung sounds are clear, heart rates regular rate and rhythm, generalized abdomen tenderness to palpation, abdomen soft, pliable, nondistended, no CVAT tenderness, no organomegaly. COVID and influenza testing was ordered. Labs: COVID and influenza testing were performed and were negative in the clinic today. Plan: I suspect patient has gastritis. Prescription for Zofran was sent to the pharmacy. Work/school note was given. Supportive measures were discussed with the patient and they voiced understanding discharge instructions and agrees to treatment plan. Return precautions reviewed Differential Diagnosis Differential diagnosis: Likely food poisoning, gastroenteritis, drug-induced nausea and vomiting, dehydration and other (Influenza, viral syndrome, gastr itis) Discharge Plan Discharge Clinical Impression: Gastritis Qualifiers: Gastritis type: unspecified gastritis Chronicity: acute Gastritis bleeding: without bleeding Qualified Code(s): K29.00 - Acute gastritis without bleeding Abdominal pain Qualifiers: Abdominal location: generalized Qualified Code(s): R10.84 - Generalized abdominal pain Patient Disposition: Home Condition: Stable Instructions: Antibiotic Form, Acute Nausea and Vomiting (ED), Abdominal Pain (ED) Additional Instructions: Take prescription medications only as prescribed-ondansetron Increase fluids and stay well hydrated May take Tylenol or motrin as directed on bottle for pain/fever May use Flonase 1 spray in each nare daily May take OTC antihistamines such as Zyrtec or Claritin daily as directed on bottle May apply Vicks vapor rub to chest to open sinuses Sinus rinses for congestion Cepacol spray, cough drops, throat lozenges, warm tea with honey/lemon, gargle salt water to soothe throat BRAT diet for diarrhea May take Imodium as directed/needed for any diarrhea as long as there is no blood in your stool. Clear liquids x 24 hours then advance as tolerated for nausea/vomiting Go to the ED if you develop a worsening in your condition- high fever not controlled by Tylenol or Motrin, dehydration, weakness, lethargy, shortness of breath, chest pain, or worsening abdominal pain. Follow up with your PCP in 3-5 days if symptoms persist. Patient Language: Macedonian Prescriptions: New ondansetron 8 mg tablet,disintegrating 8 mg PO Q8H PRN (Reason: nausea and vomiting) 3 Days Qty: 10 0RF No Action Breo Ellipta 100-25 mcg/dose blister with device INHALATION albuterol sulfate [ProAir HFA] 90 mcg/actuation HFA aerosol inhaler 1 inhalation INHALATION Q4H norgestimate-ethinyl estradiol [Buy-Rk-Lnhwmywv] 0.18/0.215/0.25 mg-0.025 mg tablet 1 tablet PO DAILY Qty: 84 4RF Follow-up/Referrals: Elizabeth,LEXI Cohen [Primary Care Provider, Unknown] Stand Alone Forms: Work/School Release IP Time of Disposition: 09:20 Quality NIHSS Nursing Documentation ED NIHSS nursing documentation: reviewed/agree
[2025-07-04 09:31] LABS: EDCOVIDSCREEN Negative (Negative); EDINFLUASCREEN Negative (Negative); EDINFLUBSCREEN Negative (Negative)
== END 2025-07-04 09:23 | disposition home or self-care (01) ==
PROVIDERS: Emergency Provider Nurse Practitioner Family; PCP Physician Assistant
DX: K29.00 Acute gastritis without bleeding (principal); R10.84 Generalized abdominal pain; Z20.822 Contact with and (suspected) exposure to COVID-19; J45.909 Unspecified asthma, uncomplicated; K21.9 Gastro-esophageal reflux disease without esophagitis
CPT/HCPCS: 87426; 87804; 99213; G0463

== ENCOUNTER 2025-07-18 13:53 | Emergency (ER) | payer OTHER, SELFPAY ==
--- NOTE | 2025-07-18 13:59 | ED.GENADULT ---
HPI - General Adult General Chief complaint: Syncope Stated complaint: Fainted hit head Time Seen by Provider: 07/18/25 14:05 Source: patient, RN notes reviewed and old records reviewed Mode of arrival: ambulatory Limitations: no limitations History of Present Illness HPI narrative: 25-year-old female presents to the [facility] with complaints of having a syncopal episode. States that she was standing at the sink, washing her hands when she woke up on the floor unknown amount of time. States the right side of her head hurts but no bruising or swelling. Denies any dizziness. Denies any nausea or vomiting. Denies any blurry vision or change in vision. Denies any chest pain or shortness of breath. States she had similar episode post never evaluated approximately 2 months ago. Patient's past medical history includes asthma. Related Data Home Medications ?Medication ?Instructions ?Recorded ?Confirmed ?Last Taken ?Type albuterol sulfate 90 mcg/actuation 1 inhalation inhalation Q4H 08/16/19 07/18/25 Unknown History aerosol inhaler (ProAir HFA) fluticasone furoate 100 inhalation 01/12/21 06/19/25 Unknown History mcg-vilanterol 25 mcg/dose inhalation powder (Breo Ellipta) Allergies Allergy/AdvReac Type Severity Reaction Status Date / Time Penicillins AdvReac Nausea and Verified 07/18/25 14:31 Vomiting Review of Systems Review of Systems: All systems reviewed & are unremarkable except as noted in HPI and below Constitutional: Constitutional: Reports no additional constitutional complaints ENT: Reports system reviewed and no additional complaints, except as documented Cardiovascular: Cardiovascular: Reports no additional cardiovascular complaints, Denies chest pain and Denies dyspnea Respiratory: Respiratory: Reports no additional respiratory complaints, Denies chest congestion, Denies cough and Denies dyspnea Musculoskeletal: Musculoskeletal: Reports no additional musculoskeletal complaints Integumentary/Breasts: Skin/Breast: Reports system reviewed and no additional complaints, except as docu Neurologic: Reports as per [facility]PI [facility] Past Medical History Medical History Migraine Depression Asthma Anxiety Acid reflux Surgical History Surgical History S/P cholecystectomy H/O wrist surgery Social History Social History (Reviewed 07/18/25 @ 20:06 by ROBERT Russell Smoking status: Never smoker Alcohol intake: never Substance use: never Lack of Transportation: No Lack of Food: Never True Current Housing: I Have Housing Concerned About Future Housing: No Difficulty Paying Gas/Electric Bills: No Difficulty Paying for Meds: No Currently Unemployed: No Education: High School Diploma/GED Difficulty w/ Childcare or Family Care: No Comments At the time of my signature, I reviewed and agree with the nursing past medical, surgical, social, and family history. There is no relevant family history pertinent to the patient complaint. Exam Const: General: cooperative, healthy appearing, comfortable, no acute distress, well developed, alert and well nourished Nutritional Appearance: well nourished and obese Orientation/consciousness: patient oriented x3 Limitations: no limitations HENMT: Head: normal to inspection Ears: hearing grossly normal bilaterally, external ears normal, TM's normal bilaterally, EAC's normal, mastoids normal and no periauricular adenopathy Mouth: Yes Normal oral and palatal mucosa present, Yes lip normal, Yes tongue normal and Yes moist mucous membranes Throat: posterior oropharynx normal, uvula midline and no uvular edema Eyes: General: appearance normal, both eyes and all related structures Alignment and Position: alignment normal Neck: Neck: normal visual inspection, full ROM, no lymphadenopathy and no meningeal signs Chest: Chest palpation & inspection: normal inspection of the chest Resp: Effort & Inspection: normal respiratory effort and able to speak in complete sentences Auscultation: clear to auscultation bilaterally, no crackles, no rales, no rhonchi and no wheezes Cardio: Rate: regular rate Skin: General skin exam: normal color and no rashes or lesions noted Neuro: General: patient oriented x3, gait normal, moves all extremities and no meningeal signs Cognition (Neuro): normal cognition Speech: normal speech Gait exam (Neuro): Normal gait present Extrem: General: normal to inspection, full ROM, capillary refill normal and normal gait Psych: Appearance: grossly normal and well kempt Mental Status: mental status grossly normal Speech and movement: Normal speech and movement present and Clear speech present Affect: normal affect Attitude: cooperative Course Course Level of Care: Express Care Visit Vital Signs Vital signs: Vital Signs Temperature 97.3 F L 07/18/25 14:04 Pulse Rate 81 07/18/25 14:04 Respiratory Rate 16 11/18/25 14:04 Blood Pressure 125/92 H 07/18/25 14:04 Pulse Oximetry 100 07/18/25 14:04 Temperature 97.3 F L 07/18/25 14:04 Pulse Rate 86 07/18/25 14:20 Respiratory Rate 16 07/18/25 14:04 Blood Pressure 119/89 07/18/25 14:20 Pulse Oximetry 100 07/18/25 14:04 Reviewed Medical Decision Making MDM Narrative Medical decision making narrative: Patient sitting comfortably in exam room. Nontoxic, vitals stable. Patient in no acute distress Patient presents for Syncopal episode without signs or symptoms prior, denies any signs or symptoms currently. Sinus rhythm, blood sugar within normal limits. Orthostatics within normal limits. patient without any signs or symptoms. No erythema, ecchymosis or swelling noted to the right temporal area. Through joint decision making patient is not wanting to go to the ER for an evaluation, will follow up this week with primary care provider Discharge instructions reviewed with patient, as well as provided in writing per nursing staff. The instructions also include specific and strict return/GO TO THE ER as well as f/u information. All questions have been answered, and the patient deny any further questions with discharge and discharge plan. Some parts of this dictation were generated by voice recognition software and may contain typographical and/or grammatical inaccuracies. Differential Diagnosis Differential Diagnosis: Syncope, electrically balance, neurologic issue Medical Records Medical records reviewed: Yes I reviewed the external patient's medical records. Vital Signs Vital Signs: Vital Signs Temperature 97.3 F L 07/18/25 14:04 Pulse Rate 81 07/18/25 14:04 Respiratory Rate 16 07/18/25 14:04 Blood Pressure 125/92 H 07/18/25 14:04 Pulse Oximetry 100 07/18/25 14:04 Temperature 97.3 F L 07/18/25 14:04 Pulse Rate 86 07/18/25 14:20 Respiratory Rate 16 07/18/25 14:04 Blood Pressure 119/89 07/18/25 14:20 Pulse Oximetry 100 07/18/25 14:04 Reviewed Lab Data Lab results reviewed: Yes I reviewed the patient's lab results. Labs: Lab Results 07/18/25 Range/Units 14:09 POC Capillary Glucose 105 (65-105) mg/dl Reviewed Critical Care Time Critical Care Time Critical Care Time: No Discharge Plan Discharge Clinical Impression: History of syncope Patient Disposition: Home Condition: Stable Instructions: Syncope (ED), Dizziness (ED) Additional Instructions: follow-up with your primary care provider this week for worsening symptoms or new concerns please go directly to the emergency room Patient Language: Serbian Prescriptions: No Action fluticasone furoate-vilanterol [Breo Ellipta] 100-25 mcg/dose blister with device INHALATION ondansetron 8 mg tablet,disintegrating 8 mg PO Q8H PRN (Reason: nausea and vomiting) 3 Days Qty: 10 0RF albuterol sulfate [ProAir HFA] 90 mcg/actuation HFA aerosol inhaler 1 inhalation INHALATION Q4H norgestimate-ethinyl estradiol [Adz-Ch-Lnbdjkfu] 0.18/0.215/0.25 mg-0.025 mg tablet 1 tablet PO DAILY Qty: 84 4RF Follow-up/Referrals: Elizabeth,LEXI Cohen [Primary Care Provider, Unknown] Clinical Impression: History of syncope Stand Alone Forms: Work/School Release IP Time of Disposition: 14:42
[2025-07-18 14:04] VITALS: BP 125/92; PULSE 81; RESP 16; TEMP 36.3; O2SAT 100
--- NOTE | 2025-07-18 14:05 | ECG_ITS ---
Test Date: 2025-07-18 14:13:31 Measurements Intervals [place] Rate: 84 P: -3 WI: 129 QRS: 5 QRSD: 86 T: 2 QT: 358 QTc: 424 Interpretive Statements SINUS RHYTHM WITH SINUS ARRHYTHMIA NONSPECIFIC T-WAVE ABNORMALITY ABNORMAL ECG Compared to ECG 08/21/2024 02:24:09 Sinus tachycardia no longer present Myocardial infarct finding no longer present Electronically Signed On 07-18-2025 16:00:41 HEAD RE[employer]ERATION ENGINEER by Rick Garcia M.D.
[2025-07-18 14:20] VITALS: BP 114/69; BP 119/89; BP 121/93; PULSE 77; PULSE 86
== END 2025-07-18 14:50 | disposition home or self-care (01) ==
PROVIDERS: Emergency Provider Nurse Practitioner; PCP Physician Assistant
DX: R55 Syncope and collapse (principal); K21.9 Gastro-esophageal reflux disease without esophagitis; J45.909 Unspecified asthma, uncomplicated
CPT/HCPCS: 82948; 93005; 99213; G0463